=== PATIENT | male | born 1960 | race Caucasian/White ===

== ENCOUNTER 2017-03-02 06:45 | Inpatient (IN) | payer OTHER ==
[2017-03-02] MEDS ORDERED: NITROGLYCERIN SL TABS 0.4 MG TAB SUBLINGUAL STA ×3 (06:52)
[2017-03-02] MEDS: ASPIRIN 81 MG PO STA ×2 (06:56→06:57)
[2017-03-02 07:00] LABS: Glucose,Whole Blood 155 mg/dL (75-99)
--- NOTE | 2017-03-02 07:02 | ED ---
General Adult HPI - General Source: patient, EMS, RN notes reviewed Mode of arrival: EMS Limitations: no limitations <Armaan Davis - Last Filed: 03/02/17 07:08> <Akhil Jamil - Last Filed: 03/02/17 07:54> - General Chief complaint: Chest Pain Stated complaint: Chest Pain Time Seen by Provider: 03/02/17 06:50 - History of Present Illness Initial comments: Patient is a pleasant 56-year-old male presenting to the emergency Department with chest discomfort. Onset of symptoms was yesterday. Patient has discomfort in his chest with radiation to the back. Patient did have a fall yesterday landing on his back. Patient is unclear if the fall could be related. Patient states he fell or on his back. Patient states discomfort is moderate at this time at 5/10. No history of similar symptoms previously. Patient does not regular see her doctor. No associated nausea or dyspnea. Patient has had some sweating. (Armaan Davis) - Related Data Home Medications Medication Instructions Recorded Confirmed No Known Home Medications [No 03/02/17 03/02/17 Known Home Medications] Allergies Allergy/AdvReac Type Severity Reaction Status Date / Time Penicillins Allergy Unknown Verified 03/02/17 07:14 Review of Systems ROS Other: All systems not noted in ROS Statement are negative. Constitutional: Denies: fever Eyes: Denies: eye pain ENT: Denies: ear pain Respiratory: Denies: cough, dyspnea Cardiovascular: Reports: chest pain Endocrine: Denies: fatigue Gastrointestinal: Denies: abdominal pain, nausea Genitourinary: Denies: dysuria Musculoskeletal: Reports: back pain Skin: Denies: rash Neurological: Denies: weakness <Armaan Davis - Last Filed: 03/02/17 07:08> ROS Other: All systems not noted in ROS Statement are negative. <Akhil Jamil - Last Filed: 03/02/17 07:54> ROS Statement: Those systems with pertinent positive or pertinent negative responses have been documented in the HPI. Past Medical History Past Medical History: No Reported History History of Any Multi-Drug Resistant Organisms: MRSA Date of last positivie culture/infection: 12/23/2013 MDRO Source:: Face Past Surgical History: No Surgical Hx Reported Additional Past Surgical History / Comment(s): I&D of abscesses Past Anesthesia/Blood Transfusion Reactions: No Reported Reaction Past Psychological History: No Psychological Hx Reported Smoking Status: Current every day smoker Past Alcohol Use History: Rare Past Drug Use History: Marijuana - Past Family History Mother Family Medical History: COPD, Coronary Artery Disease (CAD) <Armaan Davis Last Filed: 03/02/17 07:08> General Exam Limitations: no limitations General appearance: alert Head exam: Present: atraumatic, normocephalic Eye exam: Present: normal appearance, PERRL ENT exam: Present: normal oropharynx Neck exam: Present: normal inspection Respiratory exam: Present: normal lung sounds bilaterally, chest wall tenderness (Mild tenderness mid upper chest) Cardiovascular Exam: Present: regular rate, normal rhythm Expanded Peripheral pulses: 2+: Radial (R), Radial (L), Posterior Tibialis (R), Posterior Tibialis (L) GI/Abdominal exam: Present: soft. Absent: tenderness Extremities exam: Present: normal inspection. Absent: pedal edema, calf tenderness Back exam: Present: tenderness (Mild tenderness to the mid thoracic region.) Neurological exam: Present: alert Psychiatric exam: Present: normal affect, normal mood Skin exam: Present: normal color <Armaan Davis Last Filed: 03/02/17 07:08> General appearance: alert, in no apparent distress Head exam: Present: atraumatic, normocephalic, normal inspection Eye exam: Present: normal appearance, PERRL, EOMI. Absent: scleral icterus, conjunctival injection, periorbital swelling ENT exam: Present: normal exam, mucous membranes moist Neck exam: Present: normal inspection. Absent: tenderness, meningismus, lymphadenopathy Respiratory exam: Present: normal lung sounds bilaterally. Absent: respiratory distress, wheezes, rales, rhonchi, stridor Cardiovascular Exam: Present: regular rate, normal rhythm, normal heart sounds. Absent: systolic murmur, diastolic murmur, rubs, gallop, clicks GI/Abdominal exam: Present: soft, normal bowel sounds. Absent: distended, tenderness, guarding, rebound, rigid Extremities exam: Present: normal inspection, full ROM, normal capillary refill. Absent: tenderness, pedal edema, joint swelling, calf tenderness Back exam: Present: normal inspection Neurological exam: Present: alert, oriented X3, CN II-XII intact Psychiatric exam: Present: normal affect, normal mood Skin exam: Present: warm, dry, intact, normal color. Absent: rash <Akhil Jamil - Last Filed: 03/02/17 07:54> Course <Armaan Davis - Last Filed: 03/02/17 07:08> <Akhil Jamil - Last Filed: 03/02/17 07:54> Vital Signs 03/02/17 03/02/17 03/02/17 06:47 06:51 06:56 Temperature 98.2 F Pulse Rate 74 76 74 Respiratory 16 18 17 Rate Blood Pressure 136/81 138/81 132/77 O2 Sat by Pulse 96 96 96 Oximetry 03/02/17 03/02/17 03/02/17 07:01 07:07 07:13 Temperature Pulse Rate 78 76 69 Respiratory 17 16 18 Rate Blood Pressure 122/72 99/55 97/56 O2 Sat by Pulse 97 97 97 Oximetry - Reevaluation(s) Reevaluation #1: 03/02/17 06:58 Case was discussed with Dr. Manzano and EKG was forwarded. 03/02/17 06:59 Repeat EKG shows sinus rhythm at 75. AL 150. QRS 80. QT 370. QTc 413. Normal axis. Septal Q waves. Inferior ST depression. Elevation in V2. 03/02/17 07:05 Case again discussed with Dr. Manzano who does not feel patient meets STEMI criteria. He does request Dr. graham come see the patient. Dr. Graham has been paged. 03/02/17 07:08 Case was discussed with Dr. Graham. (Armaan Davis) Reevaluation #2: 03/02/17 07:43 Dr. Graham is in emergency room evaluating patient, obtaining bedside ultrasound echo (Akhil Jamil) EKG Findings - EKG Comments: EKG Findings:: EKG shows sinus rhythm at 80. AL 150. QRS 84. QT 378. QTC 426. Normal axis. Septal Q waves with some borderline inferior ST depression. There is some ST elevation in V2. <Armaan Davis - Last Filed: 03/02/17 07:08> Medical Decision Making <Armaan Davis - Last Filed: 03/02/17 07:08> - Lab Data Result diagrams: 03/02/17 06:53 01/17/18 06:53 - Radiology Data Radiology results: report reviewed (Chest x-ray is negative), image reviewed <Akhil Jamil - Last Filed: 03/02/17 07:54> - Medical Decision Making 56 male the ER with chest pain, chest pain back pain, patient did not fall yesterday although with current chest pain currently. No shortness of breath no diaphoresis. Patient does have mild pain relief here in the emergency room, patient doesn't live troponin, to be taken to the Lead Case Manager for heart catheterization, patient was seen and evaluated emergency department by Dr. Graham (Akhil Jamil) - Lab Data Lab Results 03/02/17 03/02/17 03/02/17 Range/Units 06:52 06:53 06:53 WBC 11.6 H (3.8-10.6) k/uL RBC 5.03 (4.30-5.90) m/uL Hgb 15.0 (13.0-17.5) gm/dL Hct 46.3 (39.0-53.0) % MCV 92.1 (80.0-100.0) fL MCH 29.7 (25.0-35.0) pg MCHC 32.3 (31.0-37.0) g/dL RDW 14.7 (11.5-15.5) % Plt Count 214 (150-450) k/uL Neutrophils % 87 % Lymphocytes % 8 % Monocytes % 4 % Eosinophils % 1 % Basophils % 0 % Neutrophils # 10.2 H (1.3-7.7) k/uL Lymphocytes # 0.9 L (1.0-4.8) k/uL Monocytes # 0.4 (0-1.0) k/uL Eosinophils # 0.1 (0-0.7) k/uL Basophils # 0.0 (0-0.2) k/uL PT (9.0-12.0) sec INR (<1.2) APTT (22.0-30.0) sec Sodium (137-145) mmol/L Potassium (3.5-5.1) mmol/L Chloride (98-107) mmol/L Carbon Dioxide (22-30) mmol/L Anion Gap mmol/L BUN (9-20) mg/dL Creatinine (0.66-1.25) mg/dL Est GFR (MDRD) Af Amer (>60 ml/min/1.73 sqM) Est GFR (MDRD) Non-Af (>60 ml/min/1.73 sqM) Glucose (74-99) mg/dL POC Glucose (mg/dL) 155 H (75-99) mg/dL POC Glu Property Assistant ID Rabia John Calcium (8.4-10.2) mg/dL Magnesium (1.6-2.3) mg/dL Total Bilirubin (0.2-1.3) mg/dL AST (17-59) U/L ALT (21-72) U/L Alkaline Phosphatase (38-126) U/L Total Creatine Kinase 918 H (55-170) U/L CK-MB (CK-2) 67.4 H* (0.0-2.4) ng/mL CK-MB (CK-2) Rel Index 7.3 Troponin I 8.700 H* (0.000-0.034) ng/mL Total Protein (6.3-8.2) g/dL Albumin (3.5-5.0) g/dL 03/02/17 03/02/17 Range/Units 06:53 06:53 WBC (3.8-10.6) k/uL RBC (4.30-5.90) m/uL Hgb (13.0-17.5) gm/dL Hct (39.0-53.0) % MCV (80.0-100.0) fL MCH (25.0-35.0) pg MCHC (31.0-37.0) g/dL RDW (11.5-15.5) % Plt Count (150-450) k/uL Neutrophils % % Lymphocytes % % Monocytes % % Eosinophils % % Basophils % % Neutrophils # (1.3-7.7) k/uL Lymphocytes # (1.0-4.8) k/uL Monocytes # (0-1.0) k/uL Eosinophils # (0-0.7) k/uL Basophils # (0-0.2) k/uL PT 9.8 (9.0-12.0) sec INR 1.0 (<1.2) APTT 23.3 (22.0-30.0) sec Sodium 142 (137-145) mmol/L Potassium 4.6 (3.5-5.1) mmol/L Chloride 103 (98-107) mmol/L Carbon Dioxide 27 (22-30) mmol/L Anion Gap 12 mmol/L BUN 15 (9-20) mg/dL Creatinine 0.77 (0.66-1.25) mg/dL Est GFR (MDRD) Af Amer >60 (>60 ml/min/1.73 sqM) Est GFR (MDRD) Non-Af >60 (>60 ml/min/1.73 sqM) Glucose 151 H (74-99) mg/dL POC Glucose (mg/dL) (75-99) mg/dL POC Glu Property Assistant ID Calcium 9.5 (8.4-10.2) mg/dL Magnesium 2.0 (1.6-2.3) mg/dL Total Bilirubin 0.4 (0.2-1.3) mg/dL AST 93 H (17-59) U/L ALT 38 (21-72) U/L Alkaline Phosphatase 50 (38-126) U/L Total Creatine Kinase (55-170) U/L CK-MB (CK-2) (0.0-2.4) ng/mL CK-MB (CK-2) Rel Index Troponin I (0.000-0.034) ng/mL Total Protein 7.4 (6.3-8.2) g/dL Albumin 4.4 (3.5-5.0) g/dL Critical Care Time Critical Care Time: Yes Total Critical Care Time: 31 <Akhil Jamil - Last Filed: 03/02/17 07:54> Disposition <Armaan Davis - Last Filed: 03/02/17 07:08> <Akhil Jamil - Last Filed: 03/02/17 07:54> Clinical Impression: NSTEMI (non-ST elevated myocardial infarction), Chest pain, Elevated troponin Disposition: ADMITTED IP TO THIS [facility] Condition: Serious Referrals: None,Stated [Primary Care Provider] - 1-2 days
[2017-03-02 07:03] LABS: Basophils % (A) 0 %; Eosinophils # (A) 0.1 k/uL (0-0.7); Eosinophils % (A) 1 %; HCT 46.3 % (39.0-53.0); Lymphocytes # (A) 0.9 k/uL (1.0-4.8); Lymphocytes % (A) 8 %; MCH 29.7 pg (25.0-35.0); MCHC 32.3 g/dL (31.0-37.0); MCV 92.1 fL (80.0-100.0); Mean Platelet Volume 9.7; Monocytes # (A) 0.4 k/uL (0-1.0); Monocytes % (A) 4 %; Neutrophils # (A) 10.2 k/uL (1.3-7.7); Neutrophils % (A) 87 %; Platelet Count 214 k/uL (150-450); RBC 5.03 m/uL (4.30-5.90); RDW 14.7 % (11.5-15.5); WBC 11.6 k/uL (3.8-10.6)
[2017-03-02 07:12] LABS: Partial Thromboplastin Time 23.3 sec (22.0-30.0); Prothrombin Time 9.8 sec (9.0-12.0)
--- NOTE | 2017-03-02 07:26 | XR ---
EXAMINATION TYPE: XR chest 1V portable DATE OF EXAM: 03/02/2017 COMPARISON: 11/19/2011 INDICATION: Chest pain TECHNIQUE: Single frontal view of the chest is obtained. FINDINGS: The heart size is normal. The pulmonary vasculature is normal. The lungs are clear. IMPRESSION: 1. No acute pulmonary process.
[2017-03-02 07:30] LABS: ALT 38 U/L (21-72); AST 93 U/L (17-59); Albumin 4.4 g/dL (3.5-5.0); Alkaline Phosphatase 50 U/L (38-126); Anion Gap 12 mmol/L; Blood Urea Nitrogen 15 mg/dL (9-20); Calcium 9.5 mg/dL (8.4-10.2); Carbon Dioxide 27 mmol/L (22-30); Chloride 103 mmol/L (98-107); Glucose 151 mg/dL (74-99); Potassium 4.6 mmol/L (3.5-5.1); Sodium 142 mmol/L (137-145); Total Bilirubin 0.4 mg/dL (0.2-1.3); Total Protein 7.4 g/dL (6.3-8.2)
[2017-03-02 07:42] LABS: Creatine Kinase MB 67.4 ng/mL (0.0-2.4); Troponin I 8.7 ng/mL (0.000-0.034)
[2017-03-02] MEDS ORDERED: HEPARIN SODIUM,PORCINE 5,000 UNIT/ML 1 ML VIAL IV PRN (07:47)
[2017-03-02] MEDS ORDERED: MORPHINE SULFATE 2 MG/ML SYRINGE IV PRN (07:47)
[2017-03-02] MEDS ORDERED: HEPARIN SODIUM,PORCINE 5,000 UNIT/ML 1 ML VIAL IV ONE (07:47)
[2017-03-02] MEDS ORDERED: NITROGLYCERIN SL TABS 0.4 MG TAB SUBLINGUAL PRN ×3 (07:47→09:43)
[2017-03-02] MEDS ORDERED: ALPRAZolam 0.25 MG TAB PO PRN (07:55)
[2017-03-02] MEDS ORDERED: ATORVASTATIN 80 MG TAB PO STA (07:55)
[2017-03-02] MEDS ORDERED: ASPIRIN 325 MG TAB PO STA (07:55)
[2017-03-02] MEDS ORDERED: ALPRAZolam 0.5 MG TAB PO PRN (07:55)
[2017-03-02] MEDS: HEPARIN SOD,PORK IN 0.45% NACL 25,000 UNIT in 0.45% NACL 1 500ML.BAG IV SCH (07:57)
--- NOTE | 2017-03-02 07:58 | CONS ---
CONSULTATION Mr. Rene is a 56-year-old male who presented to the emergency room with symptoms of chest discomfort. He fell yesterday carrying wood. Then he started to complain of chest discomfort. The discomfort is in the middle of the chest radiating to the back and worse with certain position, worse with deep breathing. He feels the discomfort is worse when he lays on his back. He denies any dizziness or palpitation. He has not been too active physically. Apparently he has been in [facility] until recently. He has no history of PND, orthopnea, or peripheral edema. He has been told in the past that he had arrhythmia, but no recent palpitations, syncope or dizziness. He has no prior history of obstructive coronary artery disease. He takes no medication at home except he took [employer] [place] yesterday. Coronary risk factors are positive for smoking. No documented hypertension or hyperlipidemia. No diabetes. His only medication is the [employer] as noted. REVIEW OF SYSTEMS: RESPIRATORY SYSTEM: He has no recent wheezing. No cough. No documented obstructive lung disease. GI SYSTEM: No recent GI bleed. No peptic ulcer disease. SYSTEM: No dysuria or hematuria. NERVOUS SYSTEM: No stroke or seizure. SOCIAL HISTORY: He denies any history of alcohol abuse or drug abuse. PHYSICAL EXAMINATION: A 56-year-old male, alert, oriented, in mild discomfort in certain position, appears older than his stated age. Blood pressure running in the 120s with the heart rate in the 70s. HEAD: Normocephalic. EYES: Sclerae anicteric. NECK: Good carotid upstroke. No bruit. No jugular venous distention. LUNGS: With mild decrease in breath sounds. No wheezes. HEART: Regular rate and rhythm. S1, S2. No S3. No rub or gallop. No murmur. Chest wall with chest wall tenderness reproducing the pain. ABDOMEN: Soft, nontender. Positive bowel sounds. No organomegaly. EXTREMITIES: No edema. Intact distal pulses. LAB DATA: Lab data revealed hemoglobin of 15, white blood cell 11.6. Chest x-ray shows no acute infiltrate. EKG revealed a sinus mechanism, borderline right axis deviation, small QS in 1 and aVL with nonspecific T wave changes inferiorly. There is no evolution on the subsequent EKG. The EKG from the EMS raised the possibility of ST-segment elevation. IMPRESSION: 1. Chest discomfort, atypical for ischemic heart disease, appears to be noncardiac. The symptoms are highly suggestive of musculoskeletal pain. 2. History of chronic tobacco use. RECOMMENDATION: I have recommended to obtain an echocardiogram with Doppler. We will follow his cardiac enzymes. If there is no evidence of segmental wall motion abnormality and his enzymes are negative then no further cardiac workup will be needed at this point. Thank you for this consult. We will follow with you. MMODL / IJN: [id number] /
[2017-03-02] MEDS ORDERED: LIDOCAINE 2% INJ 20 MG/ML (20 ML MDV) ONE (08:02)
[2017-03-02] MEDS ORDERED: IV FLUID CONTINUATION 1,000 ML IV ONE (08:09)
--- NOTE | 2017-03-02 08:10 | XR ---
EXAMINATION TYPE: XR thoracic spine complete DATE OF EXAM: 03/02/2017 CLINICAL HISTORY: Fall with mid back pain. TECHNIQUE: Frontal, lateral, and swimmer's view of thoracic spine are obtained. COMPARISON: None. FINDINGS: Thoracic spine show satisfactory alignment without evidence of acute fracture or dislocatio n. Vertebral body heights and disc space heights are preserved. Visualized ribs are unremarkable. Multilevel mild degenerative disc disease of the thoracic spine is seen as intervertebral disc space narrowing, endplate sclerosis and small anterior osteophytes. IMPRESSION: No acute fracture or malalignment is seen in the thoracic spine.
[2017-03-02] MEDS ORDERED: VERAPAMIL 2.5 MG/ML 2 ML AMP ONE (08:14)
[2017-03-02] MEDS ORDERED: fentaNYL (PF) 50 MCG/ML 2 ML AMP ONE (08:28)
[2017-03-02] MEDS ORDERED: fentaNYL (PF) 50 MCG/ML 2 ML AMP IV ONE (08:29)
[2017-03-02] MEDS ORDERED: LIDOCAINE 2% INJ 20 MG/ML SQ ONE (08:31)
[2017-03-02] MEDS ORDERED: VERAPAMIL SYRINGE (5 MG/10 ML) INTRAARTER ONE (08:34)
[2017-03-02] MEDS ORDERED: BIVALIRUDIN BOLUS 250 MG/50 ML IV ONE (08:45)
[2017-03-02] MEDS ORDERED: BIVALIRUDIN 250 MG in SODIUM CHLORIDE 0.9% 50 ML IV ONE (08:46)
[2017-03-02] MEDS ORDERED: PRASUGREL 10 MG TAB ONE (08:46)
[2017-03-02] MEDS ORDERED: PRASUGREL 10 MG TAB PO ONE (08:48)
[2017-03-02] MEDS ORDERED: NITROGLYCERIN 1000MCG/10ML SYRINGE INTRACORON ONE (08:59)
[2017-03-02] MEDS ORDERED: IOHEXOL 350 MG/ML 125ML BOTTLE INJ ONE (09:19)
[2017-03-02] MEDS ORDERED: RX INFO: IV CONTRAST WAS GIVEN 1 EACH MISC MISCELLANE PRN (09:43)
[2017-03-02] MEDS ORDERED: MAG HYDROX/AL HYDROX/SIMETH 30 ML CUP PO PRN (09:43)
[2017-03-02] MEDS ORDERED: ATROPINE SULFATE 0.1 MG/ML 10ML SYRINGE IV PRN (09:43)
[2017-03-02] MEDS ORDERED: ZOLPIDEM 5 MG TAB PO PRN (09:43)
[2017-03-02] MEDS ORDERED: SODIUM CHLORIDE 0.9% 1,000 ML IV SCH (09:45)
--- NOTE | 2017-03-02 09:58 | ECHOF ---
Referral Reason:cp MEASUREMENTS -------- HEIGHT: 188.0 cm WEIGHT: 93.0 kg BP: IVSd: 1.0 cm (0.6 - 1.1) LVIDd: 4.8 cm (3.9 - 5.3) LVPWd: 0.8 cm (0.6 - 1.1) IVSs: 1.3 cm LVIDs: 3.1 cm LVPWs: 1.2 cm Ao Diam: 3.3 cm (2.0 - 3.7) AV Cusp: 1.7 cm (1.5 - 2.6) LA Diam: 3.1 cm (2.7 - 3.8) MV EXCURSION: 15.271 mm (> 18.000) MV EF SLOPE: 89 mm/s (70 - 150) EPSS: 0.8 cm MV E Blue: 0.78 m/s MV DecT: 168 ms MV A Blue: 0.61 m/s MV E/A Ratio: 1.27 FINDINGS -------- Sinus rhythm. This was a technically adequate study. The left ventricular size is normal. Left ventricular wall thickness is normal. Overall left vent ricular systolic function is mild-moderately impaired with, an EF between 40 - 45 %. Lateral hypoki nesis [place] Hypokinesis. The right ventricle is normal in size. The right atrial size is normal. The aortic valve is trileaflet, and appears structurally normal. No aortic stenosis or regurgitation. Mild mitral regurgitation is present. Mild tricuspid regurgitation present. There is no evidence of pulmonary hypertension. The right v entricular systolic pressure, as measured by Doppler, is {RVSP}. There is no pulmonic regurgitation present. The aortic root size is normal. There is no pericardial effusion. CONCLUSIONS -------- 1. The left ventricular size is normal. 2. Left ventricular wall thickness is normal. 3. Lateral hypokinesis 4. [place] Hypokinesis. 5. The aortic valve is trileaflet, and appears structurally normal. No aortic stenosis or regurgitati on. 6. Mild mitral regurgitation is present. 7. Mild tricuspid regurgitation present. 8. There is no evidence of pulmonary hypertension. 9. The right ventricular systolic pressure, as measured by Doppler, is {RVSP}. 10. There is no pulmonic regurgitation present. 11. The aortic root size is normal. 12. There is no pericardial effusion. CONSULTING SOLUTION DIRECTOR: Radha Sigala RDCS
[2017-03-02] MEDS: METOPROLOL TARTRATE 25 MG TAB PO SCH ×2 (10:20→20:25)
--- NOTE | 2017-03-02 10:48 | AS ---
ARTERIAL STUDY Mr. Rene is a 56-year-old male with no prior documented coronary artery disease who presented to the emergency room with symptoms of chest discomfort, had a troponin elevation and underwent cardiac catheterization that revealed a critical stenosis in the obtuse marginal branch and the right coronary artery. In view of that, recommendation made regarding angioplasty and stenting, the procedures,. risks and complication were discussed with the patient who is in full understanding and agreement. PROCEDURE: Using the 6-Anguillan FL 3-/2 guiding catheter and after obtaining images of the obtuse marginal branch, a 0.014 balanced medium weight J-wire was advanced across the lesion and positioned distally. Then a 2.5 x 12 mm Xience Alpine stent was advanced, deployed and post-dilated at 14 atmospheres. After the last inflation, after appropriate wait, the balloon and the guidewire were withdrawn back in the guiding catheter. Images were obtained repeated those images reveal stable successful stenting. At that point, the guiding catheter, the balloon and the guidewire were removed and a 6-Anguillan FR4 guiding catheter introduced into the system and after cannulating the right coronary ostium, 0.14 Advanced medium J-wire was advanced across the lesion and positioned distally, attempt to advance a 2.75 x 15 mm Xience Alpine stent were unsuccessful. That stent was removed and another 0.14 balanced medium weight J-wire was advanced next to first one in a jamison fashion. Subsequently, the stent was advanced to the distal lesion, deployed and post-dilated at 14 atmospheres. Following that, the balloon was removed and another 2.75 x 50 mm Xience Alpine stent was deployed in the proximal lesion and post dilated at 16 atmospheres. After the last inflation, after appropriate wait, the balloon and the guidewire were withdrawn back in the guiding catheter. Images were obtained and repeated. Those images reveal stable successful stenting. At that point, the guiding catheter, the balloon and the guidewire removed and a left ventriculogram was performed. Following that, catheter and sheath were removed. Hemostasis was obtained with deployment of a TR band. There was immediate complication. Patient is returned to his room in stable condition. Of note, that he had mild chest discomfort with the inflation that resulted in the procedure. He received Angiomax per protocol as well as oral loading dose of Effient. RESULTS: 1. Successful stenting of the first obtuse marginal branch with reduction of stenosis from 80% to 0%. 2. Successful stenting of the proximal right coronary artery with reduction of stenosis from 80% to 0%. 3. Successful stenting of the distal right coronary artery with reduction of stenosis from 80% to 0%. RECOMMENDATION: Patient will be continued on aspirin, Effient, beta blockers and statin. The importance of dual antiplatelet treatment were discussed with the patient and his family who are in full understanding and agreement. Duration of procedure is 57 minutes. MMODL / IJN: [id number] /
--- NOTE | 2017-03-02 10:58 | CC ---
CARDIAC CATHETERIZATION REPORT Mr. Rene is a 56-year-old male with history of chronic tobacco use, who does not follow with a physician, who had a fall yesterday, subsequently presented to the emergency room with chest and back discomfort that had respirophasic pattern to it. His EKG showed ST-segment changes in the inferior leads as well as QS in 1 in aVL and his initial troponin was 8 and in view of that, recommendation was made regarding cardiac catheterization. The procedure as well as the risks and complication were discussed with the patient who is in full understanding and agreement. PROCEDURE: Patient was brought to the yard labor supervisor in a fasting semi-sedated state after receiving fentanyl and Benadryl and achieving moderate conscious sedated state. Using Xylocaine anesthesia in the Seldinger technique, a 6-Tristanian sheath was introduced in the right radial artery. Selective right and left coronary angiography performed using 5-Tristanian, 3.5 bend right Vern and a 6-Tristanian 3.5 bend FL3.5 guiding catheter. Images of the coronary arteries were obtained. Following that, angioplasty and stenting of the left circumflex and subsequently angioplasty and stenting of the right coronary artery was performed. Following that, a 5-Tristanian tight pigtail catheter was introduced in the left ventricle and a 30-degree BAINS view of the left ventricle was obtained. Following that, the catheter and sheaths were removed. Hemostasis was obtained with deployment of a TR band. There was no immediate complication. Patient was returned to his room in stable condition. Of note, the patient received intra-arterial verapamil. FINDINGS: FLUOROSCOPY: There was calcification involving the left anterior descending artery as well as the right coronary artery. LEFT MAIN: This is a large-sized vessel bifurcating left circumflex and left anterior descending artery. Left main coronary artery has no evidence of high-grade stenosis. LEFT ANTERIOR DESCENDING ARTERY: This is a large-sized vessel reaching towards the apex with a wraparound apex segment. The proximal LAD has 10% to 20% plaque. After the takeoff of the first septal birthing nurse, there is a another 20% plaque. There is a question of a stump of a small of second diagonal branch although no late flow into the vessel and no retrograde flow is noted. LEFT CIRCUMFLEX: This is a nondominant vessel giving rise to a large obtuse marginal branch. The obtuse marginal branch has an 80% stenosis in the proximal segment. RIGHT CORONARY ARTERY: This is a large dominant vessel bifurcating distally PDA posterolateral segment and branches. The right coronary artery is heavily calcified, proximally has a tubular lesion of 80% in the mid segment. There is a 50% plaque and there is another 80% plaque distally prior to the bifurcation. The rest of the vessel has no high-grade stenosis. LEFT VENTRICULOGRAM: Left ventriculogram is performed 30-degree BAINS view and revealed mid lateral apical wall hypokinesis to akinesis. Ejection fraction is 40% to 45%. HEMODYNAMICS: There was no gradient across the aortic valve. The left ventricular end- diastolic pressure was 20 to 24 mmHg. CONCLUSION: 1. Calcified coronary arteries. 2. Critical stenosis involving the first obtuse marginal branch. 3. Critical stenosis involving a calcified proximal right coronary artery and distal right coronary artery. 4. Questionable occluded second diagonal branch. 5. Moderately impaired left ventricular systolic function. 6. RECOMMENDATION: In view of finding anatomy, I have recommended proceeding with angioplasty and stenting of the left circumflex and the right coronary artery. The procedure as well as the risks and complications were discussed with the patient who is in full understanding and agreement. MMODL / IJN: [id number] /
[2017-03-02] MEDS: LISINOPRIL 5 MG TAB PO SCH (12:08)
[2017-03-02] MEDS: SPIRONOLACTONE 25 MG TAB PO SCH (12:44)
[2017-03-02 14:06] LABS: Troponin I 26.9 ng/mL (0.000-0.034)
[2017-03-02 19:42] LABS: Troponin I 51.7 ng/mL (0.000-0.034)
--- NOTE | 2017-03-02 21:42 | P.HPIM ---
History of Present Illness H&P Date: 03/02/17 Chief Complaint: Chest pain Patient is a 56-year-old male with a known history of questionable SVT and currently not taking any medications and no recent PCP follow-up came to ER with complaints of chest discomfort. Patient initially had chest pain last night and patient took [place] at home without any relief of symptoms and patient presented to ER today morning. Chest pain is mainly left retrosternal associated with diaphoresis and dizziness. Chest pain with radiation to the back. 5/10 in severity. Patient denied any similar symptoms in the past. Otherwise patient continues to smoke 1 pack per day. No history of coronary disease. No history of hypertension, hyperlipidemia and diabetes mellitus. No associated nausea or dyspnea. Patient was found to have elevated troponin in the ER and was immediately taken to cardiac catheterization. Status post stent placement 2 Currently patient denied any chest pain. Review of Systems Constitutional: Patient denies any fever or chills . No generalized weakness or weight loss. Abdomen: Patient denied nausea vomiting and diarrhea and abdominal pain. Cardiovascular: He does have chest pain associated with diaphoresis. No palpitations. No shortness of breath. No leg swelling Respiratory: patient denied any cough is from production. No shortness of breath Neurologic: Patient denied any numbness or tingling headache. Musculoskeletal: Patient denies any complaints of joint swelling or deformity. Skin: Negative Psychiatric: Negative Endocrine: No heat or cold intolerance. No recent weight gain. Genitourinary: No dysuria or hematuria. All other 14 point ROS negative except the above Past Medical History Past Medical History: Chest Pain / Angina Additional Past Medical History / Comment(s): SVT with chest pain/palpitations- chemically converted. History of Any Multi-Drug Resistant Organisms: MRSA Date of last positivie culture/infection: 12/23/2013 MDRO Source:: Face Past Surgical History: No Surgical Hx Reported Additional Past Surgical History / Comment(s): I&D of R inframandibular abscess. Past Anesthesia/Blood Transfusion Reactions: No Reported Reaction Smoking Status: Current every day smoker - Past Family History Father Family Medical History: No Reported History Additional Family Medical History / Comment(s): Father of "natural causes" at the age of 79yrs. Mother Family Medical History: COPD, Coronary Artery Disease (CAD) Additional Family Medical History / Comment(s): Mother is 76yrs old. She has had several MIs, 6 cardiac stents and a 4 vessel CABG. Medications and Allergies Home Medications Medication Instructions Recorded Confirmed Type No Known Home Medications [No 03/02/17 03/02/17 History Known Home Medications] Allergies Allergy/AdvReac Type Severity Reaction Status Date / Time Penicillins Allergy Unknown Verified 03/02/17 07:14 Physical Exam Vitals: Vital Signs Temp Pulse Pulse Resp BP BP Pulse Ox 03/02/17 14:01 98.0 F 73 16 133/74 98 03/02/17 13:28 98.0 F 73 16 133/74 98 03/02/17 12:10 70 16 123/76 98 03/02/17 11:35 70 16 147/65 99 03/02/17 11:09 70 16 117/67 99 03/02/17 10:30 78 16 114/74 98 03/02/17 10:15 74 16 111/66 97 03/02/17 10:00 70 16 117/65 98 03/02/17 09:45 66 16 118/72 99 03/02/17 08:00 64 16 115/58 99 03/02/17 07:21 80 16 100/55 98 03/02/17 07:16 74 16 106/55 97 03/02/17 07:13 69 18 97/56 97 03/02/17 07:07 76 16 99/55 97 03/02/17 07:01 78 17 122/72 97 03/02/17 06:56 74 17 132/77 96 03/02/17 06:51 76 18 138/81 96 03/02/17 06:47 98.2 F 74 16 136/81 96 Intake and Output 03/02/17 03/02/17 03/02/17 06:59 14:59 22:59 Intake Total 134.93 Balance 134.93 Intake: IV 134.93 Sodium Chloride 0.9% 1, 0 000 ml @ 100 mls/hr IV . [facility] Rx#:[id number] Other: Weight 92.986 kg PHYSICAL EXAMINATION: Patient is lying in the bed comfortably, no acute distress, awake alert and oriented.. HEENT: Normocephalic. Neck is supple. Pupils reactive. Nostrils clear. Oral cavity is moist. Ears reveal no drainage. Neck reveals no JVD, carotid bruits, or thyromegaly. CHEST EXAMINATION: Trachea is central. Symmetrical expansion. Lung viera clear to auscultation and percussion. CARDIAC: Normal S1, S2 with no gallops. No murmurs ABDOMEN: Soft. Bowel sounds normal. No organomegaly. No abdominal bruits. Extremities: reveal no edema. No clubbing or cyanosis Neurologically awake, alert, oriented x3 with well-coordinated movements. No focal deficits noted Skin: No rash or skin lesions. Psychiatric: Cooperative. Nonsuicidal Musculoskeletal: No joint swelling or deformity. Normal range of motion. Results CBC & Chem 7: 03/02/17 06:53 03/02/17 06:53 Labs: Abnormal Lab Results - Last 24 Hours (Table) 03/02/17 03/02/17 03/02/17 Range/Units 06:52 06:53 06:53 WBC 11.6 H (3.8-10.6) k/uL Neutrophils # 10.2 H (1.3-7.7) k/uL Lymphocytes # 0.9 L (1.0-4.8) k/uL Glucose (74-99) mg/dL POC Glucose (mg/dL) 155 H (75-99) mg/dL AST (17-59) U/L Total Creatine Kinase 918 H (55-170) U/L CK-MB (CK-2) 67.4 H* (0.0-2.4) ng/mL Troponin I 8.700 H* (0.000-0.034) ng/mL 03/02/17 03/02/17 Range/Units 06:53 12:58 WBC (3.8-10.6) k/uL Neutrophils # (1.3-7.7) k/uL Lymphocytes # (1.0-4.8) k/uL Glucose 151 H (74-99) mg/dL POC Glucose (mg/dL) (75-99) mg/dL AST 93 H (17-59) U/L Total Creatine Kinase 2353 H (55-170) U/L CK-MB (CK-2) 146.0 H* (0.0-2.4) ng/mL Troponin I 26.900 H* (0.000-0.034) ng/mL Thrombosis Risk Factor Assmnt - DVT/VTE Prophylaxis DVT/VTE Prophylaxis: Pharmacologic Prophylaxis ordered - Choose All That Apply Any of the Below Risk Factors Present?: Yes Each Factor Represents 1 point: Acute MO, Age 41-60 years, Obesity (BMI >25) Other Risk Factors: Yes Other congenital or acquired thrombophilia - If yes, enter type in comment: No Thrombosis Risk Factor Assessment Total Risk Factor Score: 3 Thrombosis Risk Factor Assessment Level: Moderate Risk Assessment and Plan Assessment: Acute non-ST elevated [place] status post cardiac catheterization and stent placement to left circumflex and right coronary artery Nicotine addiction History of SVT. As per patient. Not on any medications Plan: Patient will be continued on telemetry monitoring. Continue with aspirin, statins, metoprolol lisinopril and Effient. Cardiology is following. Further recommendations based on the clinical course. Currently patient denied any chest pain. Smoking cessation has been counseled extensively with the patient Time with Patient: Greater than 30
[2017-03-03 02:36] LABS: Basophils % (A) 0 %; Eosinophils # (A) 0.1 k/uL (0-0.7); Eosinophils % (A) 1 %; HCT 47.1 % (39.0-53.0); HGB 15.1 gm/dL (13.0-17.5); Lymphocytes # (A) 1.3 k/uL (1.0-4.8); Lymphocytes % (A) 10 %; MCH 29.7 pg (25.0-35.0); MCHC 31.9 g/dL (31.0-37.0); MCV 92.9 fL (80.0-100.0); Mean Platelet Volume 9.5; Monocytes # (A) 0.9 k/uL (0-1.0); Monocytes % (A) 7 %; Neutrophils # (A) 11.4 k/uL (1.3-7.7); Neutrophils % (A) 82 %; Platelet Count 189 k/uL (150-450); RBC 5.07 m/uL (4.30-5.90); RDW 14.5 % (11.5-15.5)
[2017-03-03 02:54] LABS: Anion Gap 7 mmol/L; Blood Urea Nitrogen 10 mg/dL (9-20); Calcium 9.4 mg/dL (8.4-10.2); Carbon Dioxide 25 mmol/L (22-30); Chloride 104 mmol/L (98-107); Cholesterol 163 mg/dL (<200); Glucose 127 mg/dL (74-99); HDL Cholesterol 54 mg/dL (40-60); LDL Cholesterol,Calculated 90 mg/dL (0-99); Sodium 136 mmol/L (137-145); Triglycerides 95 mg/dL (<150)
--- NOTE | 2017-03-03 07:59 | PN ---
PROGRESS NOTE Mr. Rene is a 56-year-old male who presented yesterday with symptoms of chest discomfort as well as elevation of his troponin. He underwent cardiac catheterization, was found to have a critical stenosis involving the left circumflex, the right coronary artery with a questionable occlusion of a second diagonal branch. He underwent stenting of the right coronary artery and the obtuse marginal branch. He is feeling well this morning. He has some chest discomfort that appears to be respirophasic, but better than yesterday. He denies any dizziness or palpitation. He continued to be in sinus mechanism. His echocardiogram showed an ejection fraction of 40% to 45% with apical lateral wall hypokinesis. He continues to be at this time on aspirin once a day, Lipitor 80 mg daily, Zestril 5 mg daily, metoprolol tartrate 25 mg twice a day, and spironolactone 25 mg daily and Effient 10 mg a day. PHYSICAL EXAMINATION: Blood pressure 140/72 with the heart rate in the 60s. LUNGS: Clear. HEART: Regular rate and rhythm, S1, S2. No S3. No rub. ABDOMEN: Soft, nontender. EXTREMITIES: No edema. Right radial pulse intact. EKG consistent with anterolateral myocardial infarction. LAB DATA: Lab data revealed BUN and creatinine 10 and 0.7. Potassium 4.0. His troponin peak is 51. Cholesterol 163, LDL of 90, hemoglobin 15.1. IMPRESSION: 1. Status post myocardial infarction and status post stenting of the left circumflex and the right coronary artery. 2. Ischemic cardiomyopathy. 3. Hyperlipidemia. 4. History of chronic tobacco use. RECOMMENDATION: We will continue present therapy. Increase his level activity and depending on the trend of his blood pressure, further recommendation will be made. MMODL / IJN: [id number] /
[2017-03-03] MEDS ORDERED: ASPIRIN 325 MG TAB PO SCH (09:00)
[2017-03-03] MEDS: LISINOPRIL 5 MG TAB PO SCH (09:05)
[2017-03-03] MEDS: SPIRONOLACTONE 25 MG TAB PO SCH (09:05)
[2017-03-03] MEDS: METOPROLOL TARTRATE 25 MG TAB PO SCH ×2 (09:05→21:08)
[2017-03-03] MEDS: ASPIRIN 81 MG PO SCH (09:05)
[2017-03-03] MEDS: PRASUGREL 10 MG TAB PO SCH (09:05)
[2017-03-03] MEDS: ATORVASTATIN 80 MG TAB PO SCH (09:07)
[2017-03-03] MEDS: HEPARIN SOD,PORK IN 0.45% NACL 25,000 UNIT in 0.45% NACL 1 500ML.BAG IV SCH (09:08)
[2017-03-03 10:42] VITALS: BMI 24.2
[2017-03-03] MEDS: HYDROcodone/APAP 5-325MG 1 EACH TAB PO PRN (12:35)
[2017-03-04] MEDS: HYDROcodone/APAP 5-325MG 1 EACH TAB PO PRN (00:56)
[2017-03-04 06:28] LABS: Mean Platelet Volume 9.8; Platelet Count 187 k/uL (150-450)
[2017-03-04 06:40] LABS: Anion Gap 7 mmol/L; Blood Urea Nitrogen 12 mg/dL (9-20); Calcium 9.5 mg/dL (8.4-10.2); Carbon Dioxide 31 mmol/L (22-30); Chloride 100 mmol/L (98-107); Glucose 111 mg/dL (74-99); Potassium 4.6 mmol/L (3.5-5.1); Sodium 138 mmol/L (137-145)
[2017-03-04] MEDS: ASPIRIN 81 MG PO SCH (07:54)
[2017-03-04] MEDS: PRASUGREL 10 MG TAB PO SCH (07:55)
[2017-03-04] MEDS: METOPROLOL TARTRATE 25 MG TAB PO SCH (07:55)
[2017-03-04] MEDS: ATORVASTATIN 80 MG TAB PO SCH (07:55)
[2017-03-04] MEDS: LISINOPRIL 5 MG TAB PO SCH (07:55)
[2017-03-04] MEDS: SPIRONOLACTONE 25 MG TAB PO SCH (07:55)
[2017-03-04] MEDS: HEPARIN SOD,PORK IN 0.45% NACL 25,000 UNIT in 0.45% NACL 1 500ML.BAG IV SCH (07:59)
--- NOTE | 2017-03-04 09:41 | PN ---
PROGRESS NOTE Mr. Rene is a 56-year-old male who presented with evidence of myocardial infarction, underwent cardiac catheterization and coronary angioplasty and stenting of his right coronary artery and left circumflex. He had some pain during the night. The pain was respiratory phasic, worse with certain position. He is feeling well today. He is ambulating. He denies any dizziness, palpitation. He denies any nausea. He continues to be on aspirin once a day, Lipitor 80 mg daily, lisinopril 5 mg daily, metoprolol tartrate 25 mg twice a day, spironolactone 25 mg daily, and Effient 10 mg daily. PHYSICAL EXAMINATION: Blood pressure 118/60 with a heart rate in the 80s. LUNGS: Clear. HEART: Regular rate and rhythm, S1, S2. No S3 with a systolic murmur. No diastolic murmur. No rub. ABDOMEN: Soft, nontender. EXTREMITIES: No edema. LAB DATA: Revealed BUN and creatinine of 12 and 0.94, and potassium 4.6. IMPRESSION: 1. Status post myocardial infarction with stenting of the right coronary artery and the left circumflex with possible occlusion of the diagonal branch. 2. Ischemic cardiomyopathy. 3. History of smoking. 4. Hyperlipidemia. RECOMMENDATION: From the cardiac standpoint, will increase his activity and if remains stable, I would expect he should be able to be discharged home tomorrow. DEVYN / CHRISTOPHERN: [id number] /
--- NOTE | 2017-03-04 18:04 | ECHOF ---
Referral Reason:assess lvf MEASUREMENTS -------- HEIGHT: 188.0 cm WEIGHT: 89.8 kg BP: FINDINGS -------- Sinus rhythm. Limited Study for LV function The left ventricular size is normal. Overall left ventricular systolic function is mild-moderately impaired with, an EF between 40 - 45 %. Mid anterior LV wall motion is hypokinetic. Mid lateral LV wall motion is hypokinetic. Apical anterior LV wall motion is hypokinetic. Apical lateral LV wall motion is hypokinetic. CONCLUSIONS -------- 1. Sinus rhythm. 2. Limited Study for LV function. 3. The left ventricular size is normal. 4. Overall left ventricular systolic function is mild-moderately impaired with, an EF between 40 - 45 %. 5. Mid anterior LV wall motion is hypokinetic. 6. Mid lateral LV wall motion is hypokinetic. 7. Apical anterior LV wall motion is hypokinetic. 8. Apical lateral LV wall motion is hypokinetic. TALENT MANAGEMENT SPECIALIST: Carolina Rivera RDCS
--- NOTE | 2017-03-04 21:39 | P.PN ---
Subjective Progress Note Date: 03/03/17 Principal diagnosis: Non-ST elevated SC Patient is a 56-year-old male with a known history of questionable SVT and currently not taking any medications and no recent PCP follow-up came to ER with complaints of chest discomfort. Patient initially had chest pain last night and patient took [place] at home without any relief of symptoms and patient presented to ER today morning. Chest pain is mainly left retrosternal associated with diaphoresis and dizziness. Chest pain with radiation to the back. 5/10 in severity. Patient denied any similar symptoms in the past. Otherwise patient continues to smoke 1 pack per day. No history of coronary disease. No history of hypertension, hyperlipidemia and diabetes mellitus. No associated nausea or dyspnea. Patient was found to have elevated troponin in the ER and was immediately taken to cardiac catheterization. Status post stent placement 2 Currently patient denied any chest pain. 03/03/2017 Patient is complaining of chest pain with deep breathing which is most likely musculoskeletal from recent fall. Otherwise no complaints of nausea vomiting or abdominal pain. No shortness of breath. Blood pressure is stable. No other acute overnight issues. All other review of systems negative except above. current medications reviewed Objective - Vital Signs Vital signs: Vital Signs Temp 97.7 F 03/03/17 16:00 Pulse 80 03/03/17 16:00 Resp 16 03/03/17 16:00 BP 117/66 03/03/17 16:00 Pulse Ox 97 03/03/17 16:00 Intake & Output 03/03/17 03/03/17 03/04/17 06:59 18:59 06:59 Intake Total 100 360 Balance 100 360 Weight 90.3 kg 90.3 kg Intake: Oral 100 360 Other: Voiding Method Toilet Toilet # Voids 1 3 - Exam PHYSICAL EXAMINATION: Patient is lying in the bed comfortably, no acute distress, awake alert and oriented.. HEENT: Normocephalic. Neck is supple. Pupils reactive. Nostrils clear. Oral cavity is moist. Ears reveal no drainage. Neck reveals no JVD, carotid bruits, or thyromegaly. CHEST EXAMINATION: Trachea is central. Symmetrical expansion. Lung viera clear to auscultation and percussion. Diminished basally. CARDIAC: Normal S1, S2 with no gallops. No murmurs ABDOMEN: Soft. Bowel sounds normal. No organomegaly. No abdominal bruits. Extremities: reveal no edema. No clubbing or cyanosis Neurologically awake, alert, oriented x3 with well-coordinated movements. No focal deficits noted Skin: No rash or skin lesions. Psychiatric: Coperative. Nonsuicidal Musculoskeletal: No joint swelling or deformity. Normal range of motion. - Labs CBC & Chem 7: 03/04/17 05:59 03/04/17 05:59 Labs: Abnormal Lab Results - Last 24 Hours (Table) 03/03/17 03/03/17 Range/Units 02:23 02:23 WBC 14.0 H (3.8-10.6) k/uL Neutrophils # 11.4 H (1.3-7.7) k/uL Sodium 136 L (137-145) mmol/L Glucose 127 H (74-99) mg/dL Assessment and Plan Assessment: Acute non-ST elevated SC status post cardiac catheterization and stent placement to left circumflex and right coronary artery Ischemic Cardiomyopathy ejection fraction 40-45% Nicotine addiction History of SVT. As per patient. Not on any medications Chest wall tenderness. Likely from recent fall. Plan: Patient will be continued on telemetry monitoring. Continue with aspirin, statins, metoprolol lisinopril and Effient. Cardiology is following. Further recommendations based on the clinical course. Smoking cessation has been counseled extensively with the patient
--- NOTE | 2017-03-04 21:40 | P.PN ---
Subjective Progress Note Date: 03/04/17 Principal diagnosis: Non-ST elevated [place] Patient is a 56-year-old male with a known history of questionable SVT and currently not taking any medications and no recent PCP follow-up came to ER with complaints of chest discomfort. Patient initially had chest pain last night and patient took [place] at home without any relief of symptoms and patient presented to ER today morning. Chest pain is mainly left retrosternal associated with diaphoresis and dizziness. Chest pain with radiation to the back. 5/10 in severity. Patient denied any similar symptoms in the past. Otherwise patient continues to smoke 1 pack per day. No history of coronary disease. No history of hypertension, hyperlipidemia and diabetes mellitus. No associated nausea or dyspnea. Patient was found to have elevated troponin in the ER and was immediately taken to cardiac catheterization. Status post stent placement 2 Currently patient denied any chest pain. 03/03/2017 Patient is complaining of chest pain with deep breathing which is most likely musculoskeletal from recent fall. Otherwise no complaints of nausea vomiting or abdominal pain. No shortness of breath. Blood pressure is stable. No other acute overnight issues. 03/04/2017 Chest pain much improved now. No complaints of shortness of breath. Patient is able to ambulate. No nausea vomiting or abdominal pain. 2-D echo cardiac exam showed his ejection fraction 40-45%. All other review of systems negative except above. current medications reviewed Objective - Vital Signs Vital signs: Vital Signs Temp 98.2 F 03/04/17 13:00 Pulse 76 03/04/17 13:00 Resp 16 03/04/17 13:00 BP 108/54 03/04/17 13:00 Pulse Ox 94 L 03/04/17 13:00 Intake & Output 03/03/17 03/04/17 03/04/17 18:59 06:59 18:59 Intake Total 360 150 240 Balance 360 150 240 Weight 90.3 kg 90.2 kg Intake: Intake, IV Titration 100 Amount Heparin Sod,Pork in 0.45% 100 NaCl 25,000 unit In 0.45 % NaCl 1 500ml.bag @ 10. 75 UNITS/KG/HR 19.99 mls/ hr IV .Q24H [facility] Rx#: [id number] Oral 360 50 240 Other: Voiding Method Toilet Toilet Toilet # Voids 3 0 - Exam PHYSICAL EXAMINATION: Patient is lying in the bed comfortably, no acute distress, awake alert and oriented.. HEENT: Normocephalic. Neck is supple. Pupils reactive. Nostrils clear. Oral cavity is moist. Ears reveal no drainage. Neck reveals no JVD, carotid bruits, or thyromegaly. CHEST EXAMINATION: Trachea is central. Symmetrical expansion. Lung viera clear to auscultation and percussion. Diminished basally. CARDIAC: Normal S1, S2 with no gallops. No murmurs ABDOMEN: Soft. Bowel sounds normal. No organomegaly. No abdominal bruits. Extremities: reveal no edema. No clubbing or cyanosis Neurologically awake, alert, oriented x3 with well-coordinated movements. No focal deficits noted Skin: No rash or skin lesions. Psychiatric: Coperative. Nonsuicidal Musculoskeletal: No joint swelling or deformity. Normal range of motion. - Labs CBC & Chem 7: 03/04/17 05:59 03/04/17 05:59 Labs: Abnormal Lab Results - Last 24 Hours (Table) 03/04/17 Range/Units 05:59 Carbon Dioxide 31 H (22-30) mmol/L Glucose 111 H (74-99) mg/dL Assessment and Plan Assessment: Acute non-ST elevated [place] status post cardiac catheterization and stent placement to left circumflex and right coronary artery Ischemic Cardiomyopathy ejection fraction 40-45% Nicotine addiction History of SVT. As per patient. Not on any medications Chest wall tenderness. Likely from recent fall. Plan: Patient will be continued on telemetry monitoring. Continue with aspirin, statins, metoprolol lisinopril and Effient. Cardiology is following. Further recommendations based on the clinical course. Smoking cessation has been counseled extensively with the patient
[2017-03-04] MEDS: METOPROLOL TARTRATE 50 MG TAB PO SCH (23:13)
[2017-03-05 06:49] LABS: Basophils # (A) 0.1 k/uL (0-0.2); Basophils % (A) 1 %; Eosinophils % (A) 0 %; HCT 44.8 % (39.0-53.0); HGB 14.4 gm/dL (13.0-17.5); Lymphocytes # (A) 1.9 k/uL (1.0-4.8); Lymphocytes % (A) 14 %; MCH 29.4 pg (25.0-35.0); MCHC 32.2 g/dL (31.0-37.0); MCV 91.3 fL (80.0-100.0); Mean Platelet Volume 8.9; Monocytes # (A) 0.9 k/uL (0-1.0); Monocytes % (A) 7 %; Neutrophils # (A) 10.1 k/uL (1.3-7.7); Neutrophils % (A) 76 %; Platelet Count 193 k/uL (150-450); RBC 4.91 m/uL (4.30-5.90); RDW 12.9 % (11.5-15.5); WBC 13.3 k/uL (3.8-10.6)
[2017-03-05 06:57] LABS: Anion Gap 8 mmol/L; Blood Urea Nitrogen 18 mg/dL (9-20); Calcium 9.1 mg/dL (8.4-10.2); Carbon Dioxide 27 mmol/L (22-30); Chloride 102 mmol/L (98-107); Glucose 101 mg/dL (74-99); Potassium 4.6 mmol/L (3.5-5.1); Sodium 137 mmol/L (137-145)
[2017-03-05 09:23] VITALS: RESP 16; TEMP 97.8
[2017-03-05] MEDS: ATORVASTATIN 80 MG TAB PO SCH (09:26)
[2017-03-05] MEDS: METOPROLOL TARTRATE 50 MG TAB PO SCH (09:26)
[2017-03-05] MEDS: LISINOPRIL 5 MG TAB PO SCH (09:27)
[2017-03-05] MEDS: SPIRONOLACTONE 25 MG TAB PO SCH (09:27)
[2017-03-05] MEDS: PRASUGREL 10 MG TAB PO SCH (09:27)
[2017-03-05] MEDS: ASPIRIN 81 MG PO SCH (09:28)
--- NOTE | 2017-03-05 09:40 | P.PN ---
Subjective Progress Note Date: 03/05/17 Principal diagnosis: NOn STEMI This 56-year-old gentleman who was admitted to the hospital with a non -ST elevation myocardial infarction. He underwent angioplasty and stenting of the LCX and RCA. Patient denies any chest pain through the night last night, breathing overall has been stable. Objective - Vital Signs Vital signs: Vital Signs Temp 97.8 F 03/05/17 08:00 Pulse 84 03/05/17 08:00 Resp 16 03/05/17 08:00 BP 114/66 03/05/17 08:00 Pulse Ox 97 03/05/17 08:00 Intake & Output 03/04/17 03/05/17 03/05/17 18:59 06:59 18:59 Intake Total 600 230 Output Total 300 Balance 600 -300 230 Weight 89.9 kg Intake: Oral 600 230 Output: Urine 300 Other: Voiding Method Toilet Toilet # Voids 2 1 - Exam PHYSICAL EXAMINATION: HEENT: Head is atraumatic, normocephalic. Pupils equal, round. Neck is supple. There is no elevated jugular venous pressure. HEART EXAMINATION: Heart S1 S2 1 systolic murmur is heard. CHEST EXAMINATION: Lungs are clear to auscultation and precussion. No chest wall tenderness is noted on palpation or with deep breathing. ABDOMEN: Soft, nontender. Bowel sounds are heard. No organomegaly noted. EXTREMITIES: 2+ peripheral pulses with no evidence of peripheral edema and no calf tenderness noted. NEUROLOGIC patient is awake, alert and oriented -3. . - Labs CBC & Chem 7: 03/05/17 06:19 03/05/17 06:19 Labs: Abnormal Lab Results - Last 24 Hours (Table) 03/05/17 03/05/17 Range/Units 06:19 06:19 WBC 13.3 H (3.8-10.6) k/uL Neutrophils # 10.1 H (1.3-7.7) k/uL Glucose 101 H (74-99) mg/dL Assessment and Plan Plan: Assessment and plan #1 non-ST elevation myocardial infarction, status post stenting of the RCA and circumflex with a possible occlusion of the diagonal branch. Repeat limited echocardiogram with Doppler study was performed which revealed an ejection fraction of 40-45%. #2 ischemic cardiomyopathy #3 nicotine dependence #4 hyperlipidemia Plan Patient may be able to be discharged home today from cardiology's perspective, we will make him a follow-up appointment in the office with Dr. Tabares post discharge. Patient will be discharged home on aspirin 81 mg daily, Lipitor 80 mg daily, Zestril 5 mg daily, metoprolol 50 mg one tablet by mouth twice a day, Effient 10 mg daily, and Aldactone 25 mg daily. Patient will also be sent with sublingual nitroglycerin as needed for chest pain. He has been provided all of the above medications on discharge. DNP note has been reviewed, I agree with a documented findings and plan of care. Patient was seen and examined.
[2017-03-05 10:59] VITALS: BP 106/60; PULSE 67
--- NOTE | 2017-03-08 00:26 | P.DS ---
Providers Date of admission: 03/02/17 07:47 Expected date of discharge: 03/05/17 Attending physician: Christina Woody Consults: 03/02/17 07:47 Consult Physician Urgent Consulting Provider: Neeru Tabares Consult Reason/Comments: known Do you want consulting provider notified?: Yes 03/02/17 09:43 Consult Physician Routine Consulting Provider: [facility] Consult Reason/Comments: Post Interventional patient Do you want consulting provider notified?: Already Contacted Primary care physician: Stated None Hospital Course: Discharge diagnosis Acute non-ST elevated GA status post cardiac catheterization and stent placement to left circumflex and right coronary artery Ischemic Cardiomyopathy ejection fraction 40-45% Nicotine addiction History of SVT. As per patient. Not on any medications Chest wall tenderness. Likely from recent fall. Resolved. With pain medications Hospital course Patient is a 56-year-old male with a known history of questionable SVT and currently not taking any medications and no recent PCP follow-up came to ER with complaints of chest discomfort. Patient initially had chest pain last night and patient took [place] at home without any relief of symptoms and patient presented to ER today morning. Chest pain is mainly left retrosternal associated with diaphoresis and dizziness. Chest pain with radiation to the back. 5/10 in severity. Patient denied any similar symptoms in the past. Otherwise patient continues to smoke 1 pack per day. No history of coronary disease. No history of hypertension, hyperlipidemia and diabetes mellitus. No associated nausea or dyspnea. Patient was found to have elevated troponin in the ER and was immediately taken to cardiac catheterization. Status post stent placement 2 Currently patient denied any chest pain. 03/03/2017 Patient is complaining of chest pain with deep breathing which is most likely musculoskeletal from recent fall. Otherwise no complaints of nausea vomiting or abdominal pain. No shortness of breath. Blood pressure is stable. No other acute overnight issues. 03/04/2017 Chest pain much improved now. No complaints of shortness of breath. Patient is able to ambulate. No nausea vomiting or abdominal pain. 2-D echo cardiac exam showed his ejection fraction 40-45%. Patient was continued on telemetry monitoring. Status post stent placement. Continue with aspirin, statins, metoprolol lisinopril and Effient. Smoking cessation has been counseled extensively.. Otherwise agent is stable to be discharged home. PHYSICAL EXAMINATION: Patient is lying in the bed comfortably, no acute distress, awake alert and oriented.. HEENT: Normocephalic. Neck is supple. Pupils reactive. Nostrils clear. Oral cavity is moist. Ears reveal no drainage. Neck reveals no JVD, carotid bruits, or thyromegaly. CHEST EXAMINATION: Trachea is central. Symmetrical expansion. Lung viera clear to auscultation and percussion. CARDIAC: Normal S1, S2 with no gallops. No murmurs ABDOMEN: Soft. Bowel sounds normal. No organomegaly. No abdominal bruits. Extremities: reveal no edema. No clubbing or cyanosis Neurologically awake, alert, oriented x3 with well-coordinated movements. No focal deficits noted Skin: No rash or skin lesions. Psychiatric: Coperative. Nonsuicidal Musculoskeletal: No joint swelling or deformity. Normal range of motion. Patient Condition at Discharge: Serious Plan - Discharge Summary Discharge Rx Participant: Yes New Discharge Prescriptions: New Aspirin 81 mg PO DAILY #30 chew Atorvastatin [Lipitor] 80 mg PO DAILY #30 tab Lisinopril [Zestril] 5 mg PO DAILY #30 tab Metoprolol Tartrate [Lopressor] 50 mg PO BID #60 tab Nitroglycerin Sl Tabs [Nitrostat] 0.4 mg SUBLINGUAL Q5M PRN #25 tab PRN Reason: Chest Pain Prasugrel [Effient] 10 mg PO DAILY #30 tab Spironolactone [Aldactone] 25 mg PO DAILY #30 tab Discharge Medication List Aspirin 81 mg PO DAILY #30 chew 03/05/17 [Rx] Atorvastatin [Lipitor] 80 mg PO DAILY #30 tab 03/05/17 [Rx] Lisinopril [Zestril] 5 mg PO DAILY #30 tab 03/05/17 [Rx] Metoprolol Tartrate [Lopressor] 50 mg PO BID #60 tab 03/05/17 [Rx] Nitroglycerin Sl Tabs [Nitrostat] 0.4 mg SUBLINGUAL Q5M PRN #25 tab 03/05/17 [Rx ] Prasugrel [Effient] 10 mg PO DAILY #30 tab 03/05/17 [Rx] Spironolactone [Aldactone] 25 mg PO DAILY #30 tab 03/05/17 [Rx] Follow up Appointment(s)/Referral(s): Neeru Tabares MD [STAFF PHYSICIAN] - 03/09/17 2:30 pm None,Stated [Primary Care Provider] - 1-2 days Activity/Diet/Wound Care/Special Instructions: Can the prescription for lipitor please be paper written so he can take it to [facility] for free. The rest can be e scribed here for indigent funds. Discharge Disposition: HOME SELF-CARE
== END 2017-03-05 14:13 | disposition home or self-care (01) | DRG 247 ==
LOC: EC 06:45 → 6SEL 07:47
PROVIDERS: ADMIT Hospitalist; ATTEND Hospitalist
PROC: B2151ZZ Fluoroscopy of Left Heart using Low Osmolar Contrast (ICD-10-PCS; 2017-03-02)
PROC: 027136Z Dilation of Coronary Artery, Two Arteries with Three Drug-eluting Intraluminal Devices, Percutaneous Approach (ICD-10-PCS; principal; 2017-03-02 08:10)
PROC: 4A023N7 Measurement of Cardiac Sampling and Pressure, Left Heart, Percutaneous Approach (ICD-10-PCS; 2017-03-02 08:10)
PROC: B2111ZZ Fluoroscopy of Multiple Coronary Arteries using Low Osmolar Contrast (ICD-10-PCS; 2017-03-02 08:10)
DX: I21.4 Non-ST elevation (NSTEMI) myocardial infarction (principal); E78.5 Hyperlipidemia, unspecified; I25.10 Atherosclerotic heart disease of native coronary artery without angina pectoris; F17.210 Nicotine dependence, cigarettes, uncomplicated; I25.5 Ischemic cardiomyopathy; Z86.79 Personal history of other diseases of the circulatory system; Z86.14 Personal history of Methicillin resistant Staphylococcus aureus infection; Z88.0 Allergy status to penicillin; Z82.49 Family history of ischemic heart disease and other diseases of the circulatory system; W19.XXXA Unspecified fall, initial encounter
CPT/HCPCS: 36415; 71045; 72072; 80048; 80053; 80061; 82550; 82553; 83735; 84484; 85025; 85049; 85610; 85730; 93005; 93306; 93308; 93458; 96374; 99291

== ENCOUNTER 2020-06-19 14:20 | Emergency (ER) | payer OTHER ==
[2020-06-19 14:37] VITALS: RESP 18; TEMP 97.7
--- NOTE | 2020-06-19 15:33 | ED ---
URI HPI - General Chief Complaint: Upper Respiratory Infection Stated Complaint: Coughing up blood Time Seen by Provider: 06/19/20 15:08 Source: patient Mode of arrival: ambulatory Limitations: no limitations - History of Present Illness Initial Comments: Well-appearing 59-year-old male who is current every day smoker presents to the ER today for chief complaint of coughing up blood 7-10 days. Patient states the past 7-10 days he has had a lot of coughing in the morning which she states is not totally unusual but he has no specks of blood she states sometimes her is more blood been on other occasions. Patient denies fevers chills night sweats. He denies any history of tuberculosis. Patient denies being homeless are/in fdc/group living. Denies weight loss. Patient denies hx of lung cancer, PE/DVT. Pt denies leg swelling/calf pain, recent surgeries/immobilization. Patient denies chest pain, dyspnea. Denies epistaxis He appears well nontoxic on arrival in no distress. - Related Data Previous Rx's Medication Instructions Recorded Aspirin 81 mg PO DAILY #30 chew 03/05/17 Atorvastatin [Lipitor] 80 mg PO DAILY #30 tab 03/05/17 Metoprolol Tartrate [Lopressor] 50 mg PO BID #60 tab 03/05/17 Nitroglycerin Sl Tabs [Nitrostat] 0.4 mg SUBLINGUAL Q5M PRN #25 tab 03/05/17 Prasugrel [Effient] 10 mg PO DAILY #30 tab 03/05/17 Spironolactone [Aldactone] 25 mg PO DAILY #30 tab 03/05/17 lisinopriL [Zestril] 5 mg PO DAILY #30 tab 03/05/17 Allergies Allergy/AdvReac Type Severity Reaction Status Date / Time Penicillins Allergy Unknown Verified 06/19/20 14:37 Review of Systems ROS Statement: Those systems with pertinent positive or pertinent negative responses have been documented in the HPI. ROS Other: All systems not noted in ROS Statement are negative. Past Medical History Past Medical History: Chest Pain / Angina Additional Past Medical History / Comment(s): SVT with chest pain/palpitations- chemically converted. History of Any Multi-Drug Resistant Organisms: MRSA Date of last positivie culture/infection: 12/23/2013 MDRO Source:: Face Past Surgical History: No Surgical Hx Reported Additional Past Surgical History / Comment(s): I&D of R inframandibular abscess. Past Anesthesia/Blood Transfusion Reactions: No Reported Reaction Past Psychological History: No Psychological Hx Reported Smoking Status: Current every day smoker Past Alcohol Use History: Rare Past Drug Use History: Marijuana - Past Family History Father Family Medical History: No Reported History Additional Family Medical History / Comment(s): Father of "natural causes" at the age of 79yrs. Mother Family Medical History: COPD, Coronary Artery Disease (CAD) Additional Family Medical History / Comment(s): Mother is 76yrs old. She has had several MIs, 6 cardiac stents and a 4 vessel CABG. General Exam - General Exam Comments Initial Comments: General: The patient is awake and alert, in no distress Eye: +3 mm pupils are equal, round and reactive to light, extra-ocular movements are intact. No nystagmus. There is normal conjunctiva bilaterally. No signs of icterus. Ears, nose, mouth and throat: There are moist mucous membranes and no oral lesions. Neck: The neck is supple, there is no tenderness or JVD. Cardiovascular: There is a regular rate and rhythm. No murmur, rub or gallop is appreciated. Respiratory: Lungs are clear to auscultation, respirations are non-labored, breath sounds are equal. No wheezes, stridor, rales, or rhonchi. Gastrointestinal: Soft, non-distended, non-tender abdomen without masses or organomegaly noted. There is no rebound or guarding present. Musculoskeletal: Normal ROM, no tenderness. Strength 5/5. Sensation intact. Radial and DP pulses equal bilaterally 2+. Neurological: A&O x 3. CN II-XII intact grossly, There are no obvious motor or sensory deficits. Coordination appears grossly intact. Speech is normal. Skin: Skin is warm and dry and no rashes or lesions are noted. No leg swelling or calf pain Psychiatric: Cooperative, appropriate mood & affect, normal judgment. Limitations: no limitations Course Vital Signs 06/19/20 14:34 Temperature 97.7 F Pulse Rate 62 Respiratory 18 Rate Blood Pressure 133/74 O2 Sat by Pulse 100 Oximetry Medical Decision Making - Medical Decision Making Labs stable. CXR clear. Lungs clear. Dimer (-). Troponin (-); obtained in case dimer elevated. EKG No specific findings. no hx of dyspnea/palpitations. pt is not tachycardic. Pt appears well nontoxic in no distress. I discussed case in detail with Alma Davis who is agreeable to dishcarge with further outpatient evaluation. +/- chest CT as deemed fit. Patient aware that we cannot r/o malignancy/as well as importance of prompt f/u in next 1-2 weeks return for worsening symptoms. Ventricular rate 50 bpm, FL interval 146 most seconds, QRS duration 90 ms, QT/QTC 420/382 ms. This is sinus bradycardia. There is no ST elevation or depression appreciated - Lab Data Result diagrams: 06/19/20 15:34 06/19/20 15:34 Lab Results 06/19/20 06/19/20 06/19/20 Range/Units 15:34 15:34 15:34 WBC 7.2 (3.8-10.6) k/uL RBC 4.48 (4.30-5.90) m/uL Hgb 14.0 (13.0-17.5) gm/dL Hct 41.6 (39.0-53.0) % MCV 92.9 (80.0-100.0) fL MCH 31.3 (25.0-35.0) pg MCHC 33.7 (31.0-37.0) g/dL RDW 13.0 (11.5-15.5) % Plt Count 254 (150-450) k/uL MPV 8.4 Neutrophils % 67 % Lymphocytes % 22 % Monocytes % 7 % Eosinophils % 2 % Basophils % 1 % Neutrophils # 4.8 (1.3-7.7) k/uL Lymphocytes # 1.5 (1.0-4.8) k/uL Monocytes # 0.5 (0-1.0) k/uL Eosinophils # 0.1 (0-0.7) k/uL Basophils # 0.0 (0-0.2) k/uL PT 9.7 (9.0-12.0) sec INR 0.9 (<1.2) APTT 24.7 (22.0-30.0) sec D-Dimer 0.23 (<0.60) mg/L FEU Sodium 137 (137-145) mmol/L Potassium 4.8 (3.5-5.1) mmol/L Chloride 102 (98-107) mmol/L Carbon Dioxide 29 (22-30) mmol/L Anion Gap 6 mmol/L BUN 19 (9-20) mg/dL Creatinine 0.86 (0.66-1.25) mg/dL Est GFR (CKD-EPI)AfAm >90 (>60 ml/min/1.73 sqM) Est GFR (CKD-EPI)NonAf >90 (>60 ml/min/1.73 sqM) Glucose 91 (74-99) mg/dL Calcium 9.6 (8.4-10.2) mg/dL Total Bilirubin 0.2 (0.2-1.3) mg/dL AST 27 (17-59) U/L ALT 18 (4-49) U/L Alkaline Phosphatase 60 (38-126) U/L Troponin I (0.000-0.034) ng/mL NT-Pro-B Natriuret Pep pg/mL Total Protein 7.6 (6.3-8.2) g/dL Albumin 4.3 (3.5-5.0) g/dL 06/19/20 06/19/20 Range/Units 15:34 15:34 WBC (3.8-10.6) k/uL RBC (4.30-5.90) m/uL Hgb (13.0-17.5) gm/dL Hct (39.0-53.0) % MCV (80.0-100.0) fL MCH (25.0-35.0) pg MCHC (31.0-37.0) g/dL RDW (11.5-15.5) % Plt Count (150-450) k/uL MPV Neutrophils % % Lymphocytes % % Monocytes % % Eosinophils % % Basophils % % Neutrophils # (1.3-7.7) k/uL Lymphocytes # (1.0-4.8) k/uL Monocytes # (0-1.0) k/uL Eosinophils # (0-0.7) k/uL Basophils # (0-0.2) k/uL PT (9.0-12.0) sec INR (<1.2) APTT (22.0-30.0) sec D-Dimer (<0.60) mg/L FEU Sodium (137-145) mmol/L Potassium (3.5-5.1) mmol/L Chloride (98-107) mmol/L Carbon Dioxide (22-30) mmol/L Anion Gap mmol/L BUN (9-20) mg/dL Creatinine (0.66-1.25) mg/dL Est GFR (CKD-EPI)AfAm (>60 ml/min/1.73 sqM) Est GFR (CKD-EPI)NonAf (>60 ml/min/1.73 sqM) Glucose (74-99) mg/dL Calcium (8.4-10.2) mg/dL Total Bilirubin (0.2-1.3) mg/dL AST (17-59) U/L ALT (4-49) U/L Alkaline Phosphatase (38-126) U/L Troponin I <0.012 (0.000-0.034) ng/mL NT-Pro-B Natriuret Pep 102 pg/mL Total Protein (6.3-8.2) g/dL Albumin (3.5-5.0) g/dL Disposition Clinical Impression: Hemoptysis Disposition: HOME SELF-CARE Condition: Good Instructions (If sedation given, give patient instructions): Hemoptysis (ED) Additional Instructions: Please follow-up with family doctor in the next 2 days, recommend possible CT in the outpatient setting to r/o cancerous process. Please return to emergency room if the symptoms increase or worsen or for any other concerns-such as increasing hemoptysis, dyspnea, chest pains. Is patient prescribed a controlled substance at d/c from ED?: No Referrals: None,Stated [Primary Care Provider] - 1-2 days [facility] - [facility]-2 days Time of Disposition: 16:28
[2020-06-19 15:54] LABS: Basophils % (A) 1 %; Eosinophils # (A) 0.1 k/uL (0-0.7); Eosinophils % (A) 2 %; HCT 41.6 % (39.0-53.0); Lymphocytes # (A) 1.5 k/uL (1.0-4.8); Lymphocytes % (A) 22 %; MCH 31.3 pg (25.0-35.0); MCHC 33.7 g/dL (31.0-37.0); MCV 92.9 fL (80.0-100.0); Mean Platelet Volume 8.4; Monocytes # (A) 0.5 k/uL (0-1.0); Monocytes % (A) 7 %; Neutrophils # (A) 4.8 k/uL (1.3-7.7); Neutrophils % (A) 67 %; Platelet Count 254 k/uL (150-450); RBC 4.48 m/uL (4.30-5.90); WBC 7.2 k/uL (3.8-10.6)
--- NOTE | 2020-06-19 15:58 | XR ---
EXAMINATION TYPE: XR chest 2V DATE OF EXAM: 06/19/2020 COMPARISON: Chest x-ray March 02, 2017 HISTORY: Hemostasis for one week. TECHNIQUE: Frontal and lateral views of the chest are obtained. FINDINGS: There is chronic emphysematous and parenchymal change without suspicious focal air space o pacity, pleural effusion, or pneumothorax seen. The cardiac silhouette size is stable and within nor mal limits. The osseous structures are intact. IMPRESSION: Chronic changes without acute pulmonary process. No significant change from prior.
[2020-06-19 16:08] LABS: D-Dimer 0.23 mg/L FEU (<0.60); INR 0.9 (<1.2); Partial Thromboplastin Time 24.7 sec (22.0-30.0); Prothrombin Time 9.7 sec (9.0-12.0)
[2020-06-19 16:16] LABS: ALT 18 U/L (4-49); AST 27 U/L (17-59); African American GFR (CKD) >90 (>60 ml/min/1.73 sqM); Albumin 4.3 g/dL (3.5-5.0); Alkaline Phosphatase 60 U/L (38-126); Anion Gap 6 mmol/L; Blood Urea Nitrogen 19 mg/dL (9-20); Calcium 9.6 mg/dL (8.4-10.2); Carbon Dioxide 29 mmol/L (22-30); Chloride 102 mmol/L (98-107); Glucose 91 mg/dL (74-99); Non-African American GFR(CKD) >90 (>60 ml/min/1.73 sqM); Potassium 4.8 mmol/L (3.5-5.1); Sodium 137 mmol/L (137-145); Total Bilirubin 0.2 mg/dL (0.2-1.3); Total Protein 7.6 g/dL (6.3-8.2)
[2020-06-19 16:44] VITALS: BP 124/70; PULSE 58
== END 2020-06-19 16:43 | disposition home or self-care (01) ==
LOC: EC 14:20
DX: R04.2 Hemoptysis (principal); F12.90 Cannabis use, unspecified, uncomplicated; F17.200 Nicotine dependence, unspecified, uncomplicated; Z88.0 Allergy status to penicillin; Z79.82 Long term (current) use of aspirin
CPT/HCPCS: 36415; 71046; 80053; 83880; 84484; 85025; 85379; 85610; 85730; 93005; 99284

== ENCOUNTER → 2021-02-02 | Outpatient (CLI) | payer OTHER ==
--- NOTE | 2021-02-02 11:20 | CT ---
EXAMINATION TYPE: CT chest w con DATE OF EXAM: 02/02/2021 COMPARISON: CT chest 11/19/2011 and chest x-ray 06/19/2020 HISTORY: 60-year-old male D0 4.2, hemoptysis x3 months TECHNIQUE: Contiguous axial scanning of the chest after the administration of 100 mL of Isovue 300. Coronal/sagittal reconstructions performed. CT DLP: 429mGycm. Automatic exposure control utilized for a dose reduction. FINDINGS: Heart normal size without pericardial effusion. Three-vessel coronary artery calcifications are prese nt. Minimal atherosclerotic arch calcifications. Conventional arch vessel branching anatomy. 1.1 cm posterior tracheal lymph node, axial image 12. Lower right paratracheal lymph node 2.4 x 1.7 cm. Right hilar lymph node 2.3 x 1.5 cm. Subcarinal lymph node 2.3 cm. Soft tissue encasement of the left hilum measuring up to 8.6 x 6.8 cm and contiguous with the subcari nal adenopathy. There are areas of central low density and extension across the major fissure into eris th the upper lobe and lower lobe. There is mild extrinsic mass effect causing mild narrowing of the l eft mainstem bronchus and upper lobe branches. Cut off of the left lower lobe bronchus. Mild ground glass and tree-in-bud opacities within the left lower lobe suggesting postobstructive changes. Lobulated, spiculated mass right perihilar region measuring 4.1 x 2.4 cm containing a small area of c avitation and additional areas of central low density. This is located predominantly within the right upper lobe but involves the major fissure. There is some associated endobronchial opacification of a pical segmental and subsegmental bronchi. A 6 mm nodule right mid lung located along the major fissure, likely subpleural lymph node. 3 mm similar nodule periphery of the right base also along the major fissure likely subpleural lymph node. Indeterminate 6 mm nodular density posterior right upper lobe, axial image 18. Reassess at follow-up. Possible infectious/inflammatory focus. Background of moderate upper lung emphysema. No pleural effusion. Visualized upper abdomen shows no gross abnormality. Bones: Moderate degenerative disc disease mid to lower thoracic spine. Accentuated mid thoracic kypho sis. Old healed sternal body fracture deformity. IMPRESSION: 1. COPD with moderate emphysema. 2. Centrally necrotic neoplasm/lung cancer encasing the left hilum and contiguous with subcarinal monica nopathy, narrowing the left mainstem and left upper lobe bronchi and cutting off the left lower lobe bronchus. This measures up to 8.6 cm. Mild postobstructive pneumonitis changes in the left lower lobe . 3. A second spiculated, centrally necrotic 4.1 cm right perihilar, upper lobe mass narrowing apical s egmental/subsegmental branches. 4. Indeterminate 6 mm posterior right upper lobe nodule. Slightly ill-defined on coronal series. Poss ible infectious/inflammatory focus rather than metastatic pulmonary nodule. Reassess at follow-up. 5. Paratracheal and subcarinal adenopathy measuring up to 2.4 cm.
== END | disposition home or self-care (01) ==
LOC: RADCTMAIN 08:31
PROVIDERS: ATTEND Internal Medicine
DX: C34.92 Malignant neoplasm of unspecified part of left bronchus or lung (principal); J43.9 Emphysema, unspecified; R59.1 Generalized enlarged lymph nodes; R91.8 Other nonspecific abnormal finding of lung field
CPT/HCPCS: 71260; Q9967

== ENCOUNTER 2021-02-09 10:03 | Day surgery (SDC) | payer OTHER ==
[~2021-02-09 10:03] MED LIST: LACTATED RINGERS 1,000 ML IV SCH
[2021-02-09 10:30] VITALS: TEMP 97.8
[2021-02-09] MEDS ORDERED: MIDAZOLAM 2 MG/2 ML VIAL IV ONE (10:40)
[2021-02-09] MEDS ORDERED: LIDOCAINE 1% INJ 10MG/ML (20 ML MDV) ONE (13:17)
[2021-02-09] MEDS ORDERED: PROPOFOL 10 MG/ML 20 ML VIAL IV ONE (13:17)
[2021-02-09] MEDS ORDERED: ALBUTEROL NEBULIZED 2.5 MG/3 ML INHALATION STA (14:34)
--- NOTE | 2021-02-09 14:48 | XR ---
EXAMINATION TYPE: XR chest 1V portable DATE OF EXAM: 02/09/2021 HISTORY: Shortness of breath. COMPARISON: 06/19/2020 TECHNIQUE: Single view of the chest is submitted. FINDINGS: Demonstrated are scattered senescent parenchymal change. Spiculated left hilar mass measuring an estimated 5.6 x 4.8 cm. The heart is stable. Hilar and mediastinal structures are within normal limits. Degenerative changes are seen of the dorsal spine. IMPRESSION: 1. Spiculated left hilar mass measuring an estimated 5.6 x 4.8 cm.
[2021-02-09 15:16] VITALS: BP 94/56; PULSE 62; RESP 18
--- NOTE | 2021-04-07 12:06 | P.PCN ---
Date of Procedure: 02/09/21 Preoperative Diagnosis: Bilateral lung mass Postoperative Diagnosis: As above Procedure(s) Performed: Bronchoscopy, bilateral bronchial biopsy from the left main bronchus as well as the right main bronchus, DL, brushing Anesthesia: MAC Surgeon: Estrada Laughlin Estimated Blood Loss (ml): 10 Condition: stable Disposition: same day Indications for Procedure: Bilateral mass on the lung on computed tomography scan Operative Findings: As below Description of Procedure: Patient prepared and draped in a usual fashion informed consent obtained from the patient, fiberoptic bronchoscope was passed to the knees, vocal cords were inspected, normal function of the vocal cord noted along with movement, tip of the scope was has beyond the vocal cords into the trachea which was normal appearance, on the right side there was mucosal irregularities and narrowing was noted into the right mainstem bronchus biopsies BAL and brushing was obtained, scope was moved to the left side similar findings were noted biopsy brushing and BAL was obtained, patient tolerated the procedure well no complication noted
== END 2021-02-09 15:24 | disposition home or self-care (01) ==
LOC: ORWHC2ENDO 10:03
PROVIDERS: ATTEND Internal Medicine Sleep Medicine
DX: C34.11 Malignant neoplasm of upper lobe, right bronchus or lung (principal); I25.10 Atherosclerotic heart disease of native coronary artery without angina pectoris; I25.2 Old myocardial infarction; I47.1 Supraventricular tachycardia; F17.210 Nicotine dependence, cigarettes, uncomplicated; Z79.82 Long term (current) use of aspirin; Z79.899 Other long term (current) drug therapy; Z88.0 Allergy status to penicillin
CPT/HCPCS: 94640; 88104; 88108; 88305; 71045; 31628; 31623; 31624; J2250; J2001; J2704; 31625; 87070; 87102; 87116; 87205; 87206

== ENCOUNTER → 2021-02-27 | Outpatient (CLI) | payer OTHER ==
--- NOTE | 2021-02-27 21:47 | MR ---
EXAMINATION TYPE: MR brain wo/w con DATE OF EXAM: 02/27/2021 COMPARISON: NONE HISTORY: Newly diagnosed Lung cancer TECHNIQUE: Multiplanar, multisequence images of the brain and brainstem is performed without and with IV contras t, utilizing 7.5 mL intravenous Gadavist . FINDINGS: Diffusion weighted images demonstrate no evidence of a recent infarct or other diffusion ab normality. There is mild to moderate ventricular and sulcal prominence. Scattered small foci T2 hype rintensity is seen throughout the white matter bilaterally. Approximately 30 scattered lesions are pr esent. Lesions are nonspecific in appearance and distribution. Midline structures demonstrate normal morphology. The craniocervical junction appears within normal limits. Post contrast images demonstrate no abnormal enhancement or enhancing masses.. The dural ashwini ous sinuses appear patent. The visualized sinuses are clear and the globes are intact. IMPRESSION: Mild to moderate diffuse cerebral atrophy and chronic small vessel ischemic change. No ivy spicious enhancing masses to suggest metastatic disease to the brain.
== END | disposition home or self-care (01) ==
LOC: RADMRIMAIN 18:40
PROVIDERS: ATTEND Internal Medicine Hematology & Oncology
DX: C34.12 Malignant neoplasm of upper lobe, left bronchus or lung (principal); G31.89 Other specified degenerative diseases of nervous system; I67.82 Cerebral ischemia
CPT/HCPCS: 70553; A9585

== ENCOUNTER 2021-03-04 20:03 | Inpatient (IN) | payer OTHER ==
--- NOTE | 2021-03-04 20:40 | XR ---
EXAMINATION TYPE: XR chest 1V portable DATE OF EXAM: 03/04/2021 COMPARISON: 02/09/2021 HISTORY: Rib pain. Cough. TECHNIQUE: Single view FINDINGS: Heart is normal. There is some bulkiness left perihilum and superior aspect right pulmonary hilum. There is no pneumothorax. Trachea is midline. No pleural effusion. No heart failure. There is thickening left clavicle consistent with old fracture. IMPRESSION: Bilateral pulmonary and hilar densities increased on the right side and stable on the lef t side compared to old exam. No pneumothorax. No obvious rib fracture.
[2021-03-04] MEDS ORDERED: LIDOCAINE 5% PATCH TOPICAL STA (20:54)
[2021-03-04] MEDS ORDERED: MORPHINE SULFATE 4 MG/ML SYRINGE IV STA (20:54)
--- NOTE | 2021-03-04 21:07 | ED ---
General Adult HPI - General Source: patient Mode of arrival: ambulatory Limitations: no limitations <Samuel Yun - Last Filed: 03/04/21 22:49> <Akhil Jamil - Last Filed: 03/04/21 23:51> - General Chief complaint: Chest Pain Stated complaint: Difficulty Breathing, Rib Injury, Lung Cancer Time Seen by Provider: 03/04/21 20:25 - History of Present Illness Initial comments: Dictation was produced using [employer] dictation software. please excuse any grammatical, word or spelling errors. Chief Complaint: 60-year-old now presents with chest pain History of Present Illness: Is 60-year-old male presents emergency department with chest pain. States that is over his left lateral ribs. He states he was coughing hard when he felt a sharp pop around his rib area. Patient states that hurts when he takes a deep breath and moves in certain positions. Patient states the pain is making him short of breath. Patient denies any history of pneumothorax or blood clots. Recently diagnosed with lung cancer. No fevers. No cough The ROS documented in this emergency department record has been reviewed and confirmed by me. Those systems with pertinent positive or negative responses h ave been documented in the HPI. All other systems are other negative and/or noncontributory. PHYSICAL EXAM: General Impression: Alert and oriented x3, not in acute distress HEENT: Normocephalic atraumatic, extra-ocular movements intact, pupils equal and reactive to light bilaterally, mucous membranes moist. Cardiovascular: Heart regular rate and rhythm Chest: Able to complete full sentences, no retractions, no tachypnea, palpatory tenderness over the left ribs at approximately area of rib 9 Abdomen: abdomen soft, non-tender, non-distended, no organomegaly Musculoskeletal: Pulses present and equal in all extremities, no peripheral edema Motor: no focal deficits noted Neurological: CN II-XII grossly intact, no focal motor or sensory deficits noted Skin: Intact with no visualized rashes Psych: Normal affect and mood ED course: 60-year-old male presents with chest pain. He has reproducible pain over his left ribs. Patient however has history of recently diagnosed lung cancer. His complaint of shortness of breath. As upon arrival are within acceptable limits. Laboratory evaluation obtained. Leukocytosis of 16.1. Patient not have any infectious symptoms. He has had elevated white blood cell count the past. Coag panel is unremarkable. Metabolic panel is negative. D-dimer 0.78. Chest x-ray is unremarkable. Patient given morphine and Lidoderm patch. Pending computed t omography scan. Patient care was be signed out to Dr. Snyder. EKG interpretation: Ventricular rate 84, normal sinus rhythm,. 144, QRS 84, QTC 4:15. No CA prolongation, no QTC prolongation, no ST or T-wave changes noted. Overall, this EKG is unremarkable (Samuel Yun) - Related Data Home Medications Medication Instructions Recorded Confirmed Albuterol Inhaler [Ventolin Hfa 2 puff INHALATION RT-QID PRN 03/04/21 03/04/21 Inhaler] Atorvastatin [Lipitor] 80 mg PO HS 03/04/21 03/04/21 Metoprolol Tartrate [Lopressor] 50 mg PO BID-W/MEALS 03/04/21 03/04/21 Tiotropium 18 Mcg/Puff [Spiriva] 1 puff INHALATION RT-DAILY 03/04/21 03/04/21 lisinopriL [Zestril] 5 mg PO HS 03/04/21 03/04/21 Previous Rx's Medication Instructions Recorded Aspirin 81 mg PO DAILY #30 chew 03/05/17 Nitroglycerin Sl Tabs [Nitrostat] 0.4 mg SUBLINGUAL Q5M PRN #25 tab 03/05/17 Spironolactone [Aldactone] 25 mg PO DAILY #30 tab 03/05/17 Allergies Allergy/AdvReac Type Severity Reaction Status Date / Time Penicillins Allergy Unknown Verified 03/04/21 23:13 Review of Systems ROS Other: All systems not noted in ROS Statement are negative. <Samuel Yun - Last Filed: 03/04/21 22:49> ROS Other: All systems not noted in ROS Statement are negative. <Akhil Jamil - Last Filed: 03/04/21 23:51> ROS Statement: Those systems with pertinent positive or pertinent negative responses have been documented in the HPI. 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 Past Anesthesia/Blood Transfusion Reactions: No Reported Reaction Past Psychological History: No Psychological Hx Reported Smoking Status: Current every day smoker Past Alcohol Use History: Rare Past Drug Use History: Marijuana - Past Family History Father Family Medical History: No Reported History Additional Family Medical History / Comment(s): Father of "natural causes" at the age of 79yrs. Mother Family Medical History: COPD, Coronary Artery Disease (CAD) Additional Family Medical History / Comment(s): Mother is 76yrs old. She has had several MIs, 6 cardiac stents and a 4 vessel CABG. <Samuel Yun - Last Filed: 03/04/21 22:49> General Exam Limitations: no limitations <Samuel Yun - Last Filed: 03/04/21 22:49> General appearance: alert, in no apparent distress Head exam: Present: atraumatic, normocephalic, normal inspection Eye exam: Present: normal appearance, PERRL, EOMI. Absent: scleral icterus, conjunctival injection, periorbital swelling ENT exam: Present: normal exam, mucous membranes moist Neck exam: Present: normal inspection. Absent: tenderness, meningismus, lymphadenopathy Respiratory exam: Present: normal lung sounds bilaterally. Absent: respiratory distress, wheezes, rales, rhonchi, stridor Cardiovascular Exam: Present: regular rate, normal rhythm, normal heart sounds. Absent: systolic murmur, diastolic murmur, rubs, gallop, clicks GI/Abdominal exam: Present: soft, normal bowel sounds. Absent: distended, tende rness, guarding, rebound, rigid Extremities exam: Present: normal inspection, full ROM, normal capillary refill. Absent: tenderness, pedal edema, joint swelling, calf tenderness Back exam: Present: normal inspection Neurological exam: Present: alert, oriented X3, CN II-XII intact Psychiatric exam: Present: normal affect, normal mood Skin exam: Present: warm, dry, intact, normal color. Absent: rash <Akhil Jamil - Last Filed: 03/04/21 23:51> Course <Akhil Jamil - Last Filed: 03/04/21 23:51> Vital Signs 03/04/21 03/04/21 03/04/21 20:08 21:40 22:40 Temperature 98.2 F Pulse Rate 84 88 83 Respiratory 18 18 18 Rate Blood Pressure 109/62 106/62 115/68 O2 Sat by Pulse 99 98 98 Oximetry - Reevaluation(s) Reevaluation #1: 03/04/21 23:50 Medical records reviewed (Akhil Jamil) Reevaluation #2: 03/04/21 23:50 Patient is feeling improved here with hydration, breathing treatment (Akhil Jamil) Reevaluation #3: 03/04/21 23:50 Patient is informed of results and questions answered (Akhil Jamil) Medical Decision Making - Lab Data Result diagrams: 03/04/21 21:40 03/04/21 21:40 <Samuel Yun - Last Filed: 03/04/21 22:49> - Lab Data Result diagrams: 03/04/21 21:40 03/04/21 21:40 - Radiology Data Radiology results: report reviewed (CTA of chest chest no PE positive pneumonia new), image reviewed <Akhil Jamil - Last Filed: 03/04/21 23:51> - Medical Decision Making 60 male DF for evaluation underlying lung CA, patient does have significant pneumonia leukocytosis and tachycardia. Patient also found to have elevated pot assium, potassium we'll be treated and checked again patient will be admitted for IV antibiotics and further supportive care (Akhil Jamil) - Lab Data Lab Results 03/04/21 03/04/21 03/04/21 Range/Units 21:40 21:40 21:40 WBC 16.1 H (3.8-10.6) k/uL RBC 4.03 L (4.30-5.90) m/uL Hgb 12.3 L (13.0-17.5) gm/dL Hct 37.9 L (39.0-53.0) % MCV 94.0 (80.0-100.0) fL MCH 30.5 (25.0-35.0) pg MCHC 32.5 (31.0-37.0) g/dL RDW 13.3 (11.5-15.5) % Plt Count 346 (150-450) k/uL MPV 8.2 Neutrophils % 87 % Lymphocytes % 6 % Monocytes % 6 % Eosinophils % 0 % Basophils % 0 % Neutrophils # 13.9 H (1.3-7.7) k/uL Lymphocytes # 0.9 L (1.0-4.8) k/uL Monocytes # 1.0 (0-1.0) k/uL Eosinophils # 0.1 (0-0.7) k/uL Basophils # 0.1 (0-0.2) k/uL PT 10.0 (9.0-12.0) sec INR 0.9 (<1.2) APTT 26.4 (22.0-30.0) sec D-Dimer 0.78 H (<0.60) mg/L FEU Sodium 135 L (137-145) mmol/L Potassium 5.5 H (3.5-5.1) mmol/L Chloride 99 (98-107) mmol/L Carbon Dioxide 28 (22-30) mmol/L Anion Gap 8 mmol/L BUN 18 (9-20) mg/dL Creatinine 0.70 (0.66-1.25) mg/dL Est GFR (CKD-EPI)AfAm >90 (>60 ml/min/1.73 sqM) Est GFR (CKD-EPI)NonAf >90 (>60 ml/min/1.73 sqM) Glucose 100 H (74-99) mg/dL Calcium 9.9 (8.4-10.2) mg/dL Critical Care Time Critical Care Time: Yes Total Critical Care Time: 31 <Akhil Jamil - Last Filed: 03/04/21 23:51> Disposition <Samuel Yun - Last Filed: 03/04/21 22:49> Is patient prescribed a controlled substance at d/c from ED?: No <Akhil Jamil - Last Filed: 03/04/21 23:51> Clinical Impression: Atypical chest pain, Lung cancer, Pneumonia, Leukocytosis, Hyperkalemia Disposition: ADMITTED IP TO THIS HOSP Condition: Fair Referrals: Noe Bonilla MD [Primary Care Provider] - 1-2 days
[2021-03-04 21:57] LABS: Basophils # (A) 0.1 k/uL (0-0.2); Basophils % (A) 0 %; Eosinophils # (A) 0.1 k/uL (0-0.7); Eosinophils % (A) 0 %; HCT 37.9 % (39.0-53.0); HGB 12.3 gm/dL (13.0-17.5); Lymphocytes # (A) 0.9 k/uL (1.0-4.8); Lymphocytes % (A) 6 %; MCH 30.5 pg (25.0-35.0); MCHC 32.5 g/dL (31.0-37.0); Mean Platelet Volume 8.2; Monocytes % (A) 6 %; Neutrophils # (A) 13.9 k/uL (1.3-7.7); Neutrophils % (A) 87 %; Platelet Count 346 k/uL (150-450); RBC 4.03 m/uL (4.30-5.90); RDW 13.3 % (11.5-15.5); WBC 16.1 k/uL (3.8-10.6)
[2021-03-04 22:10] LABS: INR 0.9 (<1.2); Partial Thromboplastin Time 26.4 sec (22.0-30.0)
[2021-03-04 22:11] LABS: African American GFR (CKD) >90 (>60 ml/min/1.73 sqM); Anion Gap 8 mmol/L; Blood Urea Nitrogen 18 mg/dL (9-20); Calcium 9.9 mg/dL (8.4-10.2); Carbon Dioxide 28 mmol/L (22-30); Chloride 99 mmol/L (98-107); Glucose 100 mg/dL (74-99); Non-African American GFR(CKD) >90 (>60 ml/min/1.73 sqM); Potassium 5.5 mmol/L (3.5-5.1); Sodium 135 mmol/L (137-145)
[2021-03-04] MEDS ORDERED: INSULIN REGULAR 100 UNIT/ML VIAL (IV) IV ONE (22:51)
[2021-03-04] MEDS ORDERED: SODIUM CHLORIDE 0.9% 1,000 ML IV STA (22:51)
[2021-03-04] MEDS ORDERED: DEXTROSE 50% SYRINGE 50 ML IVP STA (22:51)
[2021-03-04] MEDS ORDERED: SODIUM BICARB 8.4% 50 ML SYR (1 MEQ/ML) IV STA (22:51)
--- NOTE | 2021-03-04 23:30 | CT ---
EXAMINATION TYPE: CT angio chest DATE OF EXAM: 03/04/2021 COMPARISON: 02/02/2021 HISTORY: pe CT DLP: 254 mGycm Automated exposure control for dose reduction was used. CONTRAST: Performed with IV Contrast, patient injected with 100 mL of Isovue 370. There are Three-D postprocessed images. There is irregular 3.8 cm stellate mass in the right upper lobe above the right pulmonary hilum. Ther e is stellate mass at the left pulmonary hilum measuring 5.5 cm and encasing the left lower lobe pulm onary artery. There is narrowing of the lumen. I see no filling defect. There is some patchy lingular infiltrate. Heart size is normal. There is 3.5 cm enlarged subcarinal lymph node. Thoracic aorta is intact. There is no aneurysm or dissection. The ascending aorta measures 3.3 cm. There is some patchy reticular nodular infiltrate in the left lower lobe posteriorly. There is normal contrast opacification of the pulmonary arteries. There are no filling defects. The t horacic spine is intact. There is no compression fracture. Sternum shows old healed oblique fracture. IMPRESSION: No evidence of pulmonary embolism. Masslike densities as above consistent with tumor at the superior right pulmonary hilum and at the le ft pulmonary hilum that appear not significantly different than old exam. There is a new mild lingula r infiltrate compared to old exam. There is patchy left lower lobe infiltrate not significantly diffe rent.
[2021-03-04] MEDS ORDERED: AZITHROMYCIN 500 MG in SODIUM CHLORIDE 0.9% 250 ML IVPB STA (23:47)
[2021-03-04] MEDS ORDERED: IPRATROPIUM-ALBUTEROL 3 ML NEB INHALATION STA (23:47)
[2021-03-04] MEDS ORDERED: ONDANSETRON 4 MG/2 ML VIAL IVP PRN (23:48)
[2021-03-04] MEDS ORDERED: NALOXONE 0.4 MG/ML 1 ML VIAL IV PRN (23:48)
[2021-03-05] MEDS: SODIUM CHLORIDE 0.9% 1,000 ML IV SCH ×3 (01:45→18:49)
[2021-03-05] MEDS: MORPHINE SULFATE 4 MG/ML SYRINGE IV PRN ×3 (02:24→16:13)
[2021-03-05 06:25] LABS: Basophils % (A) 0 %; Eosinophils % (A) 0 %; HCT 34.9 % (39.0-53.0); HGB 11.1 gm/dL (13.0-17.5); Lymphocytes # (A) 1.1 k/uL (1.0-4.8); Lymphocytes % (A) 8 %; MCH 30.1 pg (25.0-35.0); MCHC 31.9 g/dL (31.0-37.0); MCV 94.6 fL (80.0-100.0); Mean Platelet Volume 8.1; Monocytes # (A) 1.3 k/uL (0-1.0); Monocytes % (A) 10 %; Neutrophils # (A) 10.6 k/uL (1.3-7.7); Neutrophils % (A) 80 %; Platelet Count 300 k/uL (150-450); RBC 3.69 m/uL (4.30-5.90); RDW 13.2 % (11.5-15.5); WBC 13.1 k/uL (3.8-10.6)
[2021-03-05 06:38] LABS: African American GFR (CKD) >90 (>60 ml/min/1.73 sqM); Anion Gap 5 mmol/L; Blood Urea Nitrogen 13 mg/dL (9-20); Calcium 9.1 mg/dL (8.4-10.2); Carbon Dioxide 29 mmol/L (22-30); Chloride 99 mmol/L (98-107); Glucose 115 mg/dL (74-99); Magnesium 1.9 mg/dL (1.6-2.3); Non-African American GFR(CKD) >90 (>60 ml/min/1.73 sqM); Phosphorus 3.9 mg/dL (2.5-4.5); Potassium 4.6 mmol/L (3.5-5.1); Sodium 133 mmol/L (137-145)
[2021-03-05] MEDS: IPRATROPIUM-ALBUTEROL 3 ML NEB INHALATION PRN ×4 (07:57→18:59)
[2021-03-05] MEDS ORDERED: NITROGLYCERIN SL TABS 0.4 MG TAB SUBLINGUAL PRN (10:19)
[2021-03-05] MEDS ORDERED: ALBUTEROL HFA INHALER INHALATION PRN (10:19)
[2021-03-05] MEDS: HYDROcodone/APAP 10-325MG 1 EACH TAB PO PRN ×2 (10:27→18:11)
[2021-03-05] MEDS ORDERED: SENNOSIDES 8.6 MG TAB PO PRN (11:03)
--- NOTE | 2021-03-05 11:28 | P.HPIM ---
History of Present Illness Patient is pleasant 60-year-old male with known history of lung cancer came in with severe pleuritic chest pain on the left side of the chest which is reproducible felt like patient broke his ribs. Patient chest x-ray did not show any rib fracture patient had a CT and a chest which did not show any reflux is him patient has some atelectasis significant infiltrate in the left hilum but no air bronchogram no significant pneumonia. Patient does have cough which is dry cough no sputum production. Patient did have leukocytosis without any fever patient was started on antibiotics for pneumonia although there is no evidence of pneumonia radiologically on clinically because of his antibiotics are being discontinued at this time. REVIEW OF SYSTEMS: CONSTITUTIONAL: No fever, no malaise, no fatigue. HEENT: No recent visual problems or hearing problems. Denied any sore throat. CARDIOVASCULAR: No orthopnea, PND, no palpitations, no syncope. PULMONARY: No shortness of breath, no hemoptysis. GASTROINTESTINAL: No diarrhea, no nausea, no vomiting, no abdominal pain. NEUROLOGICAL: No headaches, no weakness, no numbness. HEMATOLOGICAL: Denies any bleeding or petechiae. GENITOURINARY: Denies any burning micturition, frequency, or urgency. MUSCULOSKELETAL/RHEUMATOLOGICAL: Denies any joint pain, swelling, or any muscle pain. ENDOCRINE: Denies any polyuria or polydipsia. The rest of the 14-point review of systems is negative. PHYSICAL EXAMINATION: GENERAL: The patient is alert and oriented x3, not in any acute distress. Thin built HEENT: Pupils are round and equally reacting to light. EOMI. No scleral ic terus. No conjunctival pallor. Normocephalic, atraumatic. No pharyngeal erythema. No thyromegaly. CARDIOVASCULAR: S1 and S2 present. No murmurs, rubs, or gallops. PULMONARY: Chest is clear to auscultation, no wheezing or crackles. Reproducible chest pain ABDOMEN: Soft, nontender, nondistended, normoactive bowel sounds. No palpable organomegaly. MUSCULOSKELETAL: No joint swelling or deformity. EXTREMITIES: No cyanosis, clubbing, or pedal edema. NEUROLOGICAL: Gross neurological examination did not reveal any focal deficits. SKIN: No rashes. Assessment and plan Pleuritic, musculoskeletal chest pain: Secondary to probably metastatic disease from lung cancer, ruled out pneumonia and pulmonary embolism. Patient will be started on Seroquel anti-inflammatory that his meloxicam along with fentanyl patch for baseline pain control and [place] for breakthrough pain additionally patient is IV MORPHINE. Patient will be monitored overnight for pain control if pain is well-controlled and above-mentioned regimen patient will be discharged tomorrow. Patient was started on bowel regimen as well. -History of coronary artery disease with prior stents in the past continue his home medications -Hypertension patient is actually hypotensive because of which I'm holding off on lisinopril although metoprolol will be continued -Hyperlipidemia -Hyponatremia probably secondary to swallow lactone which is being held -COPD without any acute exacerbation - -DVT prophylaxis: Lovenox Past Medical History Past Medical History: Chest Pain / Angina, Myocardial Infarction ([place]), Pneumonia Additional Past Medical History / Comment(s): SVT with chest pain/palpitations- chemically converted. Last Myocardial Infarction Date:: 2017 History of Any Multi-Drug Resistant Organisms: MRSA Date of last positivie culture/infection: 12/23/2013 MDRO Source:: Face Past Surgical History: Heart Catheterization With Stent Additional Past Surgical History / Comment(s): I&D of R inframandibular abscess. 3 cardiac stents. Past Anesthesia/Blood Transfusion Reactions: No Reported Reaction Date of Last Stent Placement:: 2017 Past Psychological History: No Psychological Hx Reported Smoking Status: Former smoker Past Alcohol Use History: Rare Additional Past Alcohol Use History / Comment(s): Pt started smoking when he was 13 1ppd and recently quit within the last month or so. Drinks occasionally and eats marijuana gummies. Past Drug Use History: Marijuana - Past Family History Father Family Medical History: No Reported History Additional Family Medical History / Comment(s): Father of "natural causes" at the age of 79yrs. Mother Family Medical History: COPD, Coronary Artery Disease (CAD) Additional Family Medical History / Comment(s): Mother is 76yrs old. She has had several MIs, 6 cardiac stents and a 4 vessel CABG. Medications and Allergies Home Medications Medication Instructions Recorded Confirmed Type Aspirin 81 mg PO DAILY #30 chew 03/05/17 03/04/21 Rx Nitroglycerin Sl Tabs [Nitrostat] 0.4 mg SUBLINGUAL Q5M PRN #25 tab 03/05/17 03/04/21 Rx Spironolactone [Aldactone] 25 mg PO DAILY #30 tab 03/05/17 03/04/21 Rx Albuterol Inhaler [Ventolin Hfa 2 puff INHALATION RT-QID PRN 03/04/21 03/04/21 History Inhaler] Atorvastatin [Lipitor] 80 mg PO HS 03/04/21 03/04/21 History Metoprolol Tartrate [Lopressor] 50 mg PO BID-W/MEALS 03/04/21 03/04/21 History Tiotropium 18 Mcg/Puff [Spiriva] 1 puff INHALATION RT-DAILY 03/04/21 03/04/21 History lisinopriL [Zestril] 5 mg PO HS 03/04/21 03/04/21 History Allergies Allergy/AdvReac Type Severity Reaction Status Date / Time Penicillins Allergy Unknown Verified 03/04/21 23:13 Physical Exam Vitals: Vital Signs Temp Pulse Pulse Resp BP BP Pulse Ox 03/05/21 08:13 84 03/05/21 07:57 84 03/05/21 07:00 98.3 F 81 17 105/66 97 03/05/21 02:42 18 03/05/21 02:30 98.7 F 94 40 H 104/64 97 03/05/21 01:46 95 18 114/68 99 03/05/21 01:10 89 03/05/21 01:00 89 03/04/21 23:55 92 18 129/69 99 03/04/21 22:40 83 18 115/68 98 03/04/21 21:40 88 18 106/62 98 03/04/21 20:08 98.2 F 84 18 109/62 99 Intake and Output 03/04/21 03/05/21 03/05/21 22:59 06:59 14:59 Other: Voiding Method Toilet Urinal # Voids 2 Weight 77.111 kg 77.111 kg Results CBC & Chem 7: 03/05/21 05:50 03/05/21 05:50 Labs: Abnormal Lab Results - Last 24 Hours (Table) 03/04/21 03/04/21 03/04/21 Range/Units 21:40 21:40 21:40 WBC 16.1 H (3.8-10.6) k/uL RBC 4.03 L (4.30-5.90) m/uL Hgb 12.3 L (13.0-17.5) gm/dL Hct 37.9 L (39.0-53.0) % Neutrophils # 13.9 H (1.3-7.7) k/uL Lymphocytes # 0.9 L (1.0-4.8) k/uL Monocytes # (0-1.0) k/uL D-Dimer 0.78 H (<0.60) mg/L FEU Sodium 135 L (137-145) mmol/L Potassium 5.5 H (3.5-5.1) mmol/L Glucose 100 H (74-99) mg/dL 03/05/21 03/05/21 Range/Units 05:50 05:50 WBC 13.1 H (3.8-10.6) k/uL RBC 3.69 L (4.30-5.90) m/uL Hgb 11.1 L (13.0-17.5) gm/dL Hct 34.9 L (39.0-53.0) % Neutrophils # 10.6 H (1.3-7.7) k/uL Lymphocytes # (1.0-4.8) k/uL Monocytes # 1.3 H (0-1.0) k/uL D-Dimer (<0.60) mg/L FEU Sodium 133 L (137-145) mmol/L Potassium (3.5-5.1) mmol/L Glucose 115 H (74-99) mg/dL Thrombosis Risk Factor Assmnt - Choose All That Apply Each Factor Represents 1 point: Abnormal pulmonary function (COPD), Age 41-60 years, Serious lung disease incl. pneumonia (< 1month) Each Risk Factor Represents 2 Points: Malignancy Thrombosis Risk Factor Assessment Total Risk Factor Score: 5 Thrombosis Risk Factor Assessment Level: High Risk
[2021-03-05] MEDS: MELOXICAM 7.5 MG TAB PO SCH (11:58)
[2021-03-05] MEDS: FAMOTIDINE 20 MG TAB PO SCH (12:00)
[2021-03-05] MEDS: METOPROLOL TARTRATE 50 MG TAB PO SCH (18:11)
[2021-03-05] MEDS ORDERED: ATORVASTATIN 80 MG TAB PO SCH (21:00)
[2021-03-05] MEDS ORDERED: AZITHROMYCIN 500 MG in SODIUM CHLORIDE 0.9% 250 ML IVPB SCH (23:00)
[2021-03-06] MEDS: HYDROcodone/APAP 10-325MG 1 EACH TAB PO PRN ×3 (02:35→15:44)
[2021-03-06] MEDS: SODIUM CHLORIDE 0.9% 1,000 ML IV SCH (04:09)
[2021-03-06] MEDS ORDERED: TIOTROPIUM 2.5 MCG INHALER INHALATION SCH (08:00)
[2021-03-06] MEDS: IPRATROPIUM-ALBUTEROL 3 ML NEB INHALATION PRN ×3 (08:34→15:52)
[2021-03-06] MEDS: FAMOTIDINE 20 MG TAB PO SCH (08:54)
[2021-03-06] MEDS: METOPROLOL TARTRATE 50 MG TAB PO SCH (08:54)
[2021-03-06] MEDS: MELOXICAM 7.5 MG TAB PO SCH (08:55)
[2021-03-06] MEDS ORDERED: ASPIRIN 81 MG PO SCH (09:00)
[2021-03-06] MEDS ORDERED: ENOXAPARIN 40 MG/0.4 ML SYRINGE SQ SCH (09:00)
[2021-03-06 10:59] LABS: African American GFR (CKD) >90 (>60 ml/min/1.73 sqM); Anion Gap 7 mmol/L; Blood Urea Nitrogen 12 mg/dL (9-20); Calcium 9.6 mg/dL (8.4-10.2); Carbon Dioxide 28 mmol/L (22-30); Chloride 98 mmol/L (98-107); Glucose 101 mg/dL (74-99); Non-African American GFR(CKD) >90 (>60 ml/min/1.73 sqM); Potassium 4.9 mmol/L (3.5-5.1); Sodium 133 mmol/L (137-145)
[2021-03-06 14:33] LABS: HCT 36.4 % (39.6-50.0); HGB 11.3 g/dL (13.0-17.0); MCH 29.4 pg (27.0-32.0); MCV 94.8 fL (80.0-97.0); Mean Platelet Volume 10.3 fL (9.5-12.2); Platelet Count 375 X 10*3/uL (140-440); RBC 3.84 X 10*6/uL (4.40-5.60); RDW 13.8 % (11.5-14.5); WBC 14.59 X 10*3/uL (4.50-10.00)
[2021-03-06 14:47] VITALS: BP 101/64; RESP 18; TEMP 97.7
--- NOTE | 2021-03-06 14:55 | P.CONS ---
History of Present Illness - Reason for Consult Consult date: 03/06/21 lung Cancer - History of Present Illness Mr Rene is a pleasant white male, with multiple but well-controlled medical problems at baseline. The patient had initially presented to the emergency room in 07/04 with complains of coughing, with expectoration of blood intermittently, for the past 7-10 days. This is most prominent in the morning. Patient's labs and chest x-ray did not show any major abnormality. Patient was recommended to follow-up as an outpatient with his PCP and get a CT scan done. The patient states that at that time he did not have a PCP. He did contact his insurance to get information regarding primary care physician's in his network. He states that the process of finding a PCP took some time and he did put things off, as he was working and otherwise felt well. The patient ultimately had a CT scan of the chest done on 02/02/21 after reestablishing with a PCP. This showed a 8.6 x 6.8 cm soft tissue mass encasing the left hilum, contiguous with subcarinal adenopathy. This is causing mild narrowing of the left mainstem bronchus and upper lobe branches. There was also a spiculated right perihilar mass measuring 4.1 x 2.4 cm with some central cavitation. There is a 6 cm nodule in the right midlung, and another 3 mm nodule in the right base, 6 mm nodular density in the right upper lobe. Paratracheal and subcarinal adenopathy measured 2.4 cm. The patient was referred to pulmonary medicine, and had bronchoscopy on 02/09/21. Right and left upper lobe. Bronchial biopsies showed invasive moderately differentiated squamous cell carcinoma. Patient was therefore referred here for further evaluation and recommendations. He denied any prior history of malignancy. He states that he has been smoking at least a pack a day since his early teens. She has lost about 25 pounds in weight since middle 2020. He reports some increase in shortness of breath on exertion since about mid 01/04. Hemoptysis has been very minor and infrequent while his cough has been fairly stable. Seen for first time in office with Dr. Hoyos on 02/20/21: The patient is being seen for a new diagnosis of squamous cell lung cancer. He does have multiple medical problems at baseline, which are reasonably well controlled. His performance status is adequate, though it has diminished especially over the past 2 months, due to some increase in dyspnea on exertion. - The patient's pathology, imaging, and implications were discussed in detail, along with management options per guidelines. - It was discussed that based on imaging showing bilateral lesions, with the right-sided mass appearing to be distinct from the left upper lobe mass which is contiguous with mediastinal adenopathy, as well as positive biopsies bilaterally, stage for malignancy appears to be most likely. We discussed that stage IV malignancy would not be considered curable, and the objective of treatment would be prolongation of life and palliation of symptoms. It was stated clearly that locally advanced or metastatic lung cancers are not amenable to surgery. - The patient will need completion of staging, with a PET scan, as well as MRI of the brain. Given high probability of stage IV cancer, we will check guardant 360 on his peripheral blood, and also order PD1 testing on his biopsy. Based on the staging studies, and biomarkers, he will then be started on appropriate systemic treatment. We also discussed that if there is evidence of brain metastasis, then he would have to be usually treated with radiation first. - Check baseline labs. - Physician notes, x-ray reports, CT scan reports and pathology reports reviewed and summarized above - About 45 minutes spent, greater than 50% in counseling and coordination of care Review of Systems All systems: negative Constitutional: Reports as per HPI Past Medical History Past Medical History: Chest Pain / Angina, Myocardial Infarction ([place]), Pneumonia Additional Past Medical History / Comment(s): SVT with chest pain/palpitations- chemically converted. 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 3 cardiac stents. Past Anesthesia/Blood Transfusion Reactions: No Reported Reaction Date of Last Stent Placement:: 2017 Past Psychological History: No Psychological Hx Reported Smoking Status: Former smoker Past Alcohol Use History: Rare Additional Past Alcohol Use History / Comment(s): Pt started smoking when he was 13 1ppd and recently quit within the last month or so. Drinks occasionally and eats marijuana gummies. Past Drug Use History: Marijuana - Past Family History Father Family Medical History: No Reported History Additional Family Medical History / Comment(s): Father of "natural causes" at the age of 79yrs. Mother Family Medical History: COPD, Coronary Artery Disease (CAD) Additional Family Medical History / Comment(s): Mother is 76yrs old. She has had several MIs, 6 cardiac stents and a 4 vessel CABG. Medications and Allergies Home Medications Medication Instructions Recorded Confirmed Type Aspirin 81 mg PO DAILY #30 chew 03/05/17 03/04/21 Rx Nitroglycerin Sl Tabs [Nitrostat] 0.4 mg SUBLINGUAL Q5M PRN #25 tab 03/05/17 03/04/21 Rx Spironolactone [Aldactone] 25 mg PO DAILY #30 tab 03/05/17 03/04/21 Rx Albuterol Inhaler [Ventolin Hfa 2 puff INHALATION RT-QID PRN 03/04/21 03/04/21 History Inhaler] Atorvastatin [Lipitor] 80 mg PO HS 03/04/21 03/04/21 History Metoprolol Tartrate [Lopressor] 50 mg PO BID-W/MEALS 03/04/21 03/04/21 History Tiotropium 18 Mcg/Puff [Spiriva] 1 puff INHALATION RT-DAILY 03/04/21 03/04/21 History lisinopriL [Zestril] 5 mg PO HS 03/04/21 03/04/21 History Allergies Allergy/AdvReac Type Severity Reaction Status Date / Time Penicillins Allergy Unknown Verified 03/04/21 23:13 Physical Exam Vitals: Vital Signs Temp Pulse Pulse Resp BP BP Pulse Ox 03/06/21 14:00 97.7 F 79 18 101/64 98 03/06/21 12:01 86 03/06/21 11:53 84 03/06/21 08:42 82 03/06/21 08:34 80 03/06/21 07:59 98.3 F 75 16 118/71 95 03/06/21 02:28 98.4 F 93 16 134/78 97 03/05/21 19:19 98.5 F 82 16 112/65 98 03/05/21 19:17 81 17 03/05/21 19:10 84 03/05/21 18:59 80 03/05/21 16:21 80 03/05/21 16:07 80 03/05/21 14:57 98.0 F 81 17 109/64 97 Intake and Output 03/05/21 03/06/21 03/06/21 22:59 06:59 14:59 Intake Total 118 709 Balance 118 709 Intake: Oral 118 709 Other: Voiding Method Toilet Urinal # Voids 2 2 - Constitutional General appearance: cooperative, no acute distress - EENT Eyes: EOMI ENT: NA/AT, normal oropharynx - Respiratory Respiratory: bilateral: rhonchi - Cardiovascular Rhythm: regularly irregular - Gastrointestinal General gastrointestinal: soft - Integumentary Integumentary: pale - Neurologic Neurologic: CNII-XII intact - Musculoskeletal Musculoskeletal: gait normal Results CBC & Chem 7: 03/06/21 10:16 03/06/21 10:16 Labs: Abnormal Lab Results - Last 24 Hours (Table) 03/06/21 03/06/21 Range/Units 10:16 10:16 WBC 14.59 H (4.50-10.00) X 10*3/uL RBC 3.84 L (4.40-5.60) X 10*6/uL Hgb 11.3 L (13.0-17.0) g/dL Hct 36.4 L (39.6-50.0) % MCHC 31.0 L (32.0-37.0) g/dL Sodium 133 L (137-145) mmol/L Glucose 101 H (74-99) mg/dL Chest x-ray: report reviewed CT scan - chest: report reviewed Assessment and Plan (1) Leukocytosis Current Visit: Yes Status: Acute Code(s): D72.829 - ELEVATED WHITE BLOOD CELL COUNT, UNSPECIFIED SNOMED Code(s): 147004086 (2) Chest pain Current Visit: No Status: Acute Code(s): R07.9 - CHEST PAIN, UNSPECIFIED SNOMED Code(s): 84250776 (3) Squamous cell lung cancer Narrative/Plan: - PET scan for initial staging is scheduled outpatient on 03/13/21 Current Visit: Yes Status: Acute Code(s): C34.90 - MALIGNANT NEOPLASM OF UNSP PART OF UNSP BRONCHUS OR LUNG SNOMED Code(s): 816135721 Plan: CTA chest negative He has been admitted for likely URI/Pneumonia COVID negative Continue supportive care and follow-up after PET as scheduled Physician attest: I have completed the ful history and physical and agree with above dictation, dictated as a scribe.
[2021-03-06 15:43] LABS: Basophils # (A) 0.04 X 10*3/uL (0.00-0.10); Basophils % (A) 0.3 %; Eosinophils # (A) 0.03 X 10*3/uL (0.04-0.35); Eosinophils % (A) 0.2 %; Lymphocytes # (A) 0.86 X 10*3/uL (0.90-5.00); Lymphocytes % (A) 5.9 %; Monocytes # (A) 1.53 X 10*3/uL (0.20-1.00); Monocytes % (A) 10.5 %; Neutrophils # (A) 12.06 X 10*3/uL (1.80-7.70); Neutrophils % (A) 82.6 %
[2021-03-06 16:03] VITALS: PULSE 84
--- NOTE | 2021-03-06 16:06 | P.DS ---
Providers Date of admission: 03/04/21 23:48 Attending physician: Christina Woody Consults: 03/06/21 12:43 Consult Physician Routine Consulting Provider: Juan Carlos Hoyos Consult Reason/Comments: Lung cancer Do you want consulting provider notified?: Yes Primary care physician: Chad Liu Hospital Course: Final Diagnosis -Pleuritic, musculoskeletal chest pain: Secondary to probably metastatic disease from lung cancer, ruled out pneumonia and pulmonary embolism. -Squamos cell lung cancer, new diagnosis, PET scan on 03/13/2021 for staging -History of coronary artery disease with prior stents in the past -Hypertension patient is actually hypotensive, lisinopril held in the hospital setting -Hyperlipidemia -Hyponatremia probably secondary to spironolactone which is also held in the hospital setting, possible component of SIADH -COPD without any acute exacerbation -Leukocytosis probably secondary to pain Discharge Disposition Patient is stable for discharge on pain and bowel regimen to follow up with PCP and oncology as recommended previous. He will have a PET scan complete on 03/13/2021 Hospital Course This is a 60-year-old male presents to the hospital with complaints of pleuritic chest pain to the left lower lung seems more musculoskeletal nature. It is worse with deep inspiration and expiration. He did have a computed tomography scan of the chest on February 02 after reestablishing with a PCP that showed a basic spray 6.8 Center soft tissue mass encasing the left hilum contiguous of subcarinal adenopathy. Additional findings available from rheumatology report. He has lost about 25 pounds since the middle 2020. He followed -up with Dr. Hoyos in the office in early February and has a new diagnosis of squamous cell lung cancer. He was a current smoker. Patient needs PET scanning and MRI brain for staging and will follow-up with oncology for treatment plan. We did start patient on a pain medication regimen inpatient as well as a bowel regimen which she can continue on discharge and follow-up with his PCP or oncology for additional pain management. Chest CTA completed this admission shows no evidence for PE with masslike densities consistent with tumor, there is also a new mild lingular infiltrate and patchy left lower lobe infiltrate is not significantly different from old exam. Labs on admission show a white count of 16.1, hemoglobin 12.3, neutrophils 13.9, d-dimer 0.78, sodium 135, potassium 5.5, glucose 100, Covid PCR not detected. Patient was given IV azithromycin and IV Rocephin via IV for possible pneumonia although after reviewing imaging not likely. He was given updrafts and started on Fentanyl patch, Eloy 10, Mobic and IV morphine. We did consult oncology who reviewed current plan of care with patient regarding cancer workup. He is scheduled for an outpatient PET scan on July or . 03/06/2021 Will discharge patient on pain medication management as well as bowel regimen. He was able to ambulate in the halls. Vital signs today are stable afebrile, heart rate 85 sinus rhythm, blood pressure on the softer side at 101/64, 98% room air, will continue to be his lisinopril on hold. White blood cell count improved to 14.59, hemoglobin stable at 11.3, neutrophils 12.06, lymphocytes 0.86, monocytes 1.53, sodium 133, potassium improved to 4.9, glucose 101. Lungs are clear, S1-S2 auscultated, abdomen soft nontender, patient reports fair diet, bowels are moving, no urinary frequency urgency or dysuria. We will discharge home. Please see medication reconciliation for list of current medications. Thank you for allowing us to participate in the care of this patient. Patient Condition at Discharge: Fair Plan - Discharge Summary New Discharge Prescriptions: No Action Aspirin 81 mg PO DAILY #30 chew Nitroglycerin Sl Tabs [Nitrostat] 0.4 mg SUBLINGUAL Q5M PRN #25 tab PRN Reason: Chest Pain Spironolactone [Aldactone] 25 mg PO DAILY #30 tab Albuterol Inhaler [Ventolin Hfa Inhaler] 2 puff INHALATION RT-QID PRN PRN Reason: Shortness Of Breath lisinopriL [Zestril] 5 mg PO HS Tiotropium 18 Mcg/Puff [Spiriva] 1 puff INHALATION RT-DAILY Atorvastatin [Lipitor] 80 mg PO HS Metoprolol Tartrate [Lopressor] 50 mg PO BID-W/MEALS Discharge Medication List Aspirin 81 mg PO DAILY #30 chew 03/05/17 [Rx] Nitroglycerin Sl Tabs [Nitrostat] 0.4 mg SUBLINGUAL Q5M PRN #25 tab 03/05/17 [Rx] Spironolactone [Aldactone] 25 mg PO DAILY #30 tab 03/05/17 [Rx] Albuterol Inhaler [Ventolin Hfa Inhaler] 2 puff INHALATION RT-QID PRN 03/04/21 [History] Atorvastatin [Lipitor] 80 mg PO HS 03/04/21 [History] Metoprolol Tartrate [Lopressor] 50 mg PO BID-W/MEALS 03/04/21 [History] Tiotropium 18 Mcg/Puff [Spiriva] 1 puff INHALATION RT-DAILY 03/04/21 [History] lisinopriL [Zestril] 5 mg PO HS 03/04/21 [History] Follow up Appointment(s)/Referral(s): Juan Carlos Hoyos MD [STAFF PHYSICIAN] - 1 Week Noe Bonilla MD [Primary Care Provider] - 1-2 days Estrada Laughlin MD [STAFF PHYSICIAN] - 1 Week Activity/Diet/Wound Care/Special Instructions: Patient has PET scan scheduled next week, was supposed to be today
[2021-03-06] MEDS ORDERED: AZITHROMYCIN 500 MG TAB PO SCH (21:00)
== END 2021-03-06 17:05 | disposition home or self-care (01) | DRG 948 ==
LOC: EC 20:03 → OBSVTOIN 23:48 → 6NMEDSUR 23:48
PROVIDERS: ADMIT Hospitalist; ATTEND Hospitalist
DX: G89.3 Neoplasm related pain (acute) (chronic) (principal); C34.02 Malignant neoplasm of left main bronchus; C34.01 Malignant neoplasm of right main bronchus; C79.9 Secondary malignant neoplasm of unspecified site; E22.2 Syndrome of inappropriate secretion of antidiuretic hormone; J98.11 Atelectasis; R04.2 Hemoptysis; T50.0X5A Adverse effect of mineralocorticoids and their antagonists, initial encounter; J44.9 Chronic obstructive pulmonary disease, unspecified; D72.828 Other elevated white blood cell count; Z87.891 Personal history of nicotine dependence; I25.10 Atherosclerotic heart disease of native coronary artery without angina pectoris; Z95.1 Presence of aortocoronary bypass graft; Z95.5 Presence of coronary angioplasty implant and graft; E78.5 Hyperlipidemia, unspecified; D72.829 Elevated white blood cell count, unspecified; E87.5 Hyperkalemia; I10 Essential (primary) hypertension; I25.2 Old myocardial infarction; Z20.822 Contact with and (suspected) exposure to COVID-19; Z79.82 Long term (current) use of aspirin; Z79.899 Other long term (current) drug therapy; Z82.49 Family history of ischemic heart disease and other diseases of the circulatory system; Z82.5 Family history of asthma and other chronic lower respiratory diseases; Z88.0 Allergy status to penicillin
CPT/HCPCS: 36415; 71045; 71275; 80048; 83735; 84100; 85025; 85379; 85610; 85730; 87635; 93005; 94640; 96374; 99291

== ENCOUNTER → 2021-03-10 | Outpatient (CLI) | payer OTHER ==
[2021-03-10 23:58] LABS: Basophils # (A) 0.06 X 10*3/uL (0.00-0.10); Basophils % (A) 0.6 %; Eosinophils # (A) 0.09 X 10*3/uL (0.04-0.35); HCT 36.9 % (39.6-50.0); HGB 11.2 g/dL (13.0-17.0); Lymphocytes # (A) 1.75 X 10*3/uL (0.90-5.00); Lymphocytes % (A) 18.9 %; MCH 28.8 pg (27.0-32.0); MCHC 30.4 g/dL (32.0-37.0); MCV 94.9 fL (80.0-97.0); Mean Platelet Volume 9.6 fL (9.5-12.2); Monocytes # (A) 0.97 X 10*3/uL (0.20-1.00); Monocytes % (A) 10.5 %; Neutrophils # (A) 6.37 X 10*3/uL (1.80-7.70); Neutrophils % (A) 68.7 %; Platelet Count 496 X 10*3/uL (140-440); RBC 3.89 X 10*6/uL (4.40-5.60); RDW 13.1 % (11.5-14.5); WBC 9.27 X 10*3/uL (4.50-10.00)
[2021-03-11 01:33] LABS: African American GFR (CKD) 113.1 (60.0-200.0); Anion Gap 11.2 mmol/L (10.00-18.00); BUN/Creat Ratio 19.78 Ratio (12.00-20.00); Blood Urea Nitrogen 15.9 mg/dL (9.0-27.0); Calcium 9.7 mg/dL (8.7-10.3); Carbon Dioxide 24.3 mmol/L (20.0-27.5); Non-African American GFR(CKD) 97.6 (60.0-200.0); Potassium 4.6 mmol/L (3.5-5.5)
== END | disposition home or self-care (01) ==
LOC: LABWHC1 16:16
PROVIDERS: ATTEND Nurse Practitioner Family
DX: E87.5 Hyperkalemia (principal); E87.1 Hypo-osmolality and hyponatremia
CPT/HCPCS: 36415; 80048; 85025

== ENCOUNTER → 2021-03-13 | Outpatient (CLI) | payer OTHER ==
--- NOTE | 2021-03-16 07:23 | PE ---
EXAMINATION TYPE: PET CT fusion skull to thigh DATE OF EXAM: 03/13/2021 COMPARISON: CTA chest March 04, 2021 HISTORY: Lung cancer newly diagnosed. TECHNIQUE: Following the intravenous administration of 8.1 mCi of F-18 FDG, whole body images are pe rformed from the skull base to the midthigh. Images are reviewed on the computer in the coronal, axi al, and sagittal planes. Reconstructed rotating images are created on independent workstation and re viewed on the computer. A localization and attenuation correction CT is performed in conjunction wi th the PET scan. Blood glucose level equals 88. SCAN: Initial Scan FINDINGS: SKULL BASE AND NECK: There are 2 abnormal right supraclavicular hypermetabolic narrowing 1.0 cm lymp h nodes axial image 64, max SUV is 5.19 at this level. CHEST, MEDIASTINUM, AND HILAR REGION: Background moderate underlying emphysematous change redemonstra darrick. Persistent spiculated 4.2 x 2.8 cm right suprahilar mass or neoplasm axial image 88, max SUV is 9.96. Larger left hilar mass or neoplasm invading the mediastinum just below this measuring approximately 6 .4 x 5.6 cm axial image 94, max SUV is 10.29. Abnormal 3.1 x 1.8 cm subcarinal hypermetabolic lymph node axial image 97, max SUV is 6.24. Abnormal right hilar adenopathy blends with adjacent neoplasm. Abnormal right tracheobronchial 2.2 x 2.0 cm ly mph node axial image 86, max SUV is 10.29. Abnormal near 1.0 cm hypermetabolic lymph node superior to this anterior to the trachea at level of aortic arch axial image 80, Max SUV is 3.58. There is abnor mal 1.0 cm lymph node adjacent to esophagus superior to this axial image 70, Max SUV is 4.6. ABDOMEN AND PELVIS: No adrenal masses. Normal excretion. Mild nonspecific bowel uptake right lower qu adrant. No areas of abnormal hypermetabolic uptake. OSSEOUS STRUCTURES: No areas of suspicious hypermetabolic uptake. OTHER CT: Moderate 2 severe calcified plaque left carotid bulb. Severe three-vessel coronary artery calcification. IMPRESSION: Bilateral central hilar neoplastic involvement with abnormal thoracic adenopathy extendin g into the anterior superior mediastinum. Abnormal right supraclavicular adenopathy noted. No metasta tic disease below diaphragm seen currently.
== END | disposition home or self-care (01) ==
LOC: RADPETMAIN 10:55
PROVIDERS: ATTEND Internal Medicine Hematology & Oncology
DX: C34.01 Malignant neoplasm of right main bronchus (principal); C34.02 Malignant neoplasm of left main bronchus; C77.8 Secondary and unspecified malignant neoplasm of lymph nodes of multiple regions
CPT/HCPCS: 78815; A9552

== ENCOUNTER → 2021-06-04 | Outpatient (CLI) | payer OTHER ==
[2021-06-04 10:08] LABS: African American GFR (CKD) >90 (>60 ml/min/1.73 sqM); Blood Urea Nitrogen 15 mg/dL (9-20); Non-African American GFR(CKD) >90 (>60 ml/min/1.73 sqM)
--- NOTE | 2021-06-04 14:37 | CT ---
EXAMINATION TYPE: CT ChestAbdPelvis w con DATE OF EXAM: 06/04/2021 COMPARISON: PET scan dated 03/13/2021, CT dated 03/04/[address] dated 06/26/2012 HISTORY: Lung ca, observe for mets CT DLP: 1176 mGycm Automated exposure control for dose reduction was used. CONTRAST: CT scan of the chest, abdomen and pelvis is performed with Oral Contrast and with IV Contrast, patien t injected with 100 mL of Isovue 300. FINDINGS: LUNGS: Right suprahilar mass with a spiculated margin measuring 35 x 39 mm compared to 34 x 37 mm previously . Newly seen infiltration with nodularity along the posterior aspect of the right upper lobe which co uld represent postradiation changes however metastatic disease cannot be excluded. Apparently smaller left posterior hilar mass measuring 4.3 x 4.5 cm compared to 5 x 6.2 cm previously. Newly seen wedge -shaped irregular density at the posterolateral aspect of the left upper lobe measuring up to 12 mm, possibly metastatic. Faint infiltration into the left lower lobe mainly the superior segment which co uld be related to postradiation changes however metastatic disease cannot be excluded. COPD changes m ainly involving the upper lobes. No other definite new lung lesion identified. Patent trachea and hola n bronchi. MEDIASTINUM: Persistent bilateral perihilar and pericarinal soft tissue thickening, apparently improv ed in the interim. For example, a subcarinal component of the soft tissue thickening measures 16mm co mpared to 27 mm previously. Smaller aortopulmonary lymph nodes measuring up to 9 mm compared to 2.2 c m previously. No progressive lymphadenopathy in the chest. Unchanged heart, coronary and arterial ath erosclerotic calcifications. No pleural or pericardial effusion. OTHER: Stable chronic malaligned healed fracture of the sternum. No aggressive bone lesion. LIVER/GB: No significant abnormality is appreciated. PANCREAS: No significant abnormality is seen. SPLEEN: No significant abnormality is seen. ADRENALS: No significant abnormality is seen. KIDNEYS: No significant abnormality is seen. BOWEL: No significant abnormality is seen. REPRODUCTIVE ORGANS: No gross abnormality seen. LYMPH NODES: No greater than 1 cm abdominal or pelvic lymph nodes are appreciated. OSSEOUS STRUCTURES: Degenerative changes of the lumbar spine. No aggressive bone lesion. OTHER: Scattered arterial atherosclerotic calcifications. No sizable ascites. IMPRESSION: 1. Interval regression of the previously seen bilateral perihilar and subcarinal soft tissue thickeni ng as well as the aortopulmonary lymph nodes as described above. 2. Newly seen area of infiltration and nodularity along the posterior aspect of the right upper lobe as well as subtle infiltration in the left lower lobe superior segment which could be related to post radiation changes however metastatic disease cannot be excluded. There is also newly seen pleural-bas ed nodule measuring 12 mm in the posterolateral aspect the left upper lobe, possibly metastatic, atte ntion on follow-up. Alternatively, PET scan assessment can be considered. 3. Slightly larger right suprahilar mass with a smaller left posterior hilar mass. 4. No progressive lymph nodes in the chest. No evidence of metastatic disease in the abdomen or the p maryjo. Other interval changes and incidental findings as described above.
== END | disposition home or self-care (01) ==
LOC: RADCTMAIN 09:21
PROVIDERS: ATTEND Internal Medicine Hematology & Oncology
DX: C34.12 Malignant neoplasm of upper lobe, left bronchus or lung (principal)
CPT/HCPCS: 82565; 84520; 71260; 74177; 36415; Q9967

== ENCOUNTER → 2021-08-31 | Outpatient (CLI) | payer OTHER ==
[2021-08-31 12:10] LABS: African American GFR (CKD) >90 (>60 ml/min/1.73 sqM); Blood Urea Nitrogen 18 mg/dL (9-20); Non-African American GFR(CKD) 80 (>60 ml/min/1.73 sqM)
--- NOTE | 2021-08-31 15:53 | CT ---
EXAMINATION TYPE: CT ChestAbdPelvis w con CT DLP: 563.7 mGycm, Automated exposure control for dose reduction was used. DATE OF EXAM: 08/31/2021 1:25 PM COMPARISON: CT chest abdomen pelvis 06/04/2021 CT PET 03/05/2021 CLINICAL INDICATION:Male, 60 years old with history of C34.12;, f/u lung ca Technique: Multiple axial images of the chest, abdomen, and pelvis were obtained. Two-dimensional cor onal and sagittal reconstructions were obtained. Contrast used:70cc mL of Isovue 300 with IV Contrast, Oral contrast used: with Oral Contrast Findings: CHEST: LUNGS/ PLEURA: Redemonstration of right upper lobe spiculated mass now measuring 2.8 x 2.0 x 1.8 cm, previously 2.9 x 2.1 x 2.1 cm when measuring similarly. There is a decrease in prior right upper lobe consolidation changes seen more peripherally from this mass on today's exam. A left upper lobe nodul e has decreased in size now measuring 5 mm, series 4 image 17 and previously was 12 mm. There remains superior segment of left lower lobe suspected postradiation changes as well as posttreatment changes changes suspected in the right upper lobe. AIRWAY: There is narrowing of the right upper lobe bronchus secondary to soft tissue which appears si milar to prior. HEART: Size within normal limits. Moderate to severe coronary atherosclerosis is present. MEDIASTINUM: There remains ill-defined soft tissue within the mediastinum which was previously FDG av id. The right upper paratracheal lymph node is no longer visualized. There is remains soft tissue den sity within the right low paratracheal region measuring up to 17 mm in short axis, which is not signi ficantly changed from prior. Ill-defined soft tissue along the central airways is redemonstrated incl uding the subcarinal region and pulmonary hilum' s. The left pulmonary hilum soft tissue appears larg er now measuring 3.0 x 2.2 cm, previously 2.2 x 2.2 cm. Subcarinal lymph node seen on prior has decre ased in size now measuring 11 mm in short axis, previously 15 mm. VASCULATURE: No aortic aneurysm. MUSCULOSKELETAL: No acute osseous abnormalities. Remote injury to the sternum is present. SOFT TISSUES/LYMPH NODES: Unremarkable. LOWER NECK: Supraclavicular lymph nodes on the right which were FDG avid on 03/13/2021 are not definit ively visualized and may be out of the [id number] or resolved. ABDOMEN: ABDOMEN LIVER: Unremarkable GALLBLADDER AND BILE DUCTS: Unremarkable. PANCREAS: Unremarkable. SPLEEN: Unremarkable. ADRENAL GLANDS: Unremarkable. KIDNEYS AND URETERS: No evidence of hydronephrosis or renal calculus. The ureters are unremarkable. PELVIS BLADDER: Unremarkable REPRODUCTIVE: Unremarkable. ABDOMEN & PELVIS STOMACH AND BOWEL: No evidence of bowel obstruction. PERITONEUM: No evidence of pneumoperitoneum or free fluid. VASCULATURE: No evidence of aortic aneurysm. MUSCULOSKELETAL: No acute osseous abnormalities LYMPH NODES: No gross evidence for lymphadenopathy. SOFT TISSUE/ABDOMINAL WALL: Unremarkable IMPRESSION: 1. Somewhat mixed response to therapy with persistent right upper lobe pulmonary mass which may be f ractionally smaller on today's exam. There remains ill-defined soft tissue throughout the mediastinum which was FDG avid on prior PET/CT. A majority of the areas appear stable and/or decreased in size w ithin the mediastinum however the left pulmonary hilum appears to have increased soft tissue compared to prior. Attention on follow-up PET/CT to compare metabolic activity. 2. Decrease in suspected superimposed airspace disease on prior examination within the right upper l obe more peripheral to the spiculated mass. Superimposed postradiation changes are suspected in the l ungs. 3. No evidence for metastatic disease within the abdomen or pelvis.
== END | disposition home or self-care (01) ==
LOC: RADCTMAIN 11:31
PROVIDERS: ATTEND Internal Medicine Hematology & Oncology
DX: C34.12 Malignant neoplasm of upper lobe, left bronchus or lung (principal)
CPT/HCPCS: 82565; 84520; 71260; 74177; 36415; Q9967

== ENCOUNTER → 2021-11-18 | Outpatient (CLI) | payer OTHER ==
[2021-11-18 16:06] LABS: African American GFR (CKD) >90 (>60 ml/min/1.73 sqM); Blood Urea Nitrogen 13 mg/dL (9-20); Non-African American GFR(CKD) >90 (>60 ml/min/1.73 sqM)
--- NOTE | 2021-11-18 20:54 | CT ---
EXAMINATION TYPE: CT ChestAbdPelvis w con CT DLP: 1450 mGycm, Automated exposure control for dose reduction was used. 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 Two-dimensional cor onal and sagittal reconstructions were obtained. Contrast used:100ml mL of Isovue 300 with IV Contrast, Oral contrast used: with Oral Contrast Findings: CHEST: LUNGS/ PLEURA: * Interval enlargement of the right upper lobe spiculated mass now measuring 2.8 x 2.7 x 2.6 cm, pre viously 2.7 x 2.0 x 1.7 cm when measuring similarly. There is a slight increase in prior right upper lobe consolidation changes seen more peripherally from this mass on today's exam. * Stable left upper lobe nodule measuring 5 mm, series 3 image 28. There remains suspected posttreatment of the left upper lobe and right lung. Right major fissure intrafissural lymph node. Series 3 image 38 AIRWAY: There is narrowing of the right upper lobe bronchus secondary to soft tissue which appears si milar to prior. HEART: Size within normal limits. Moderate to severe coronary atherosclerosis is present. MEDIASTINUM: There remains ill-defined soft tissue within the mediastinum which was previously FDG avid. * Stable right low paratracheal region measuring up to 17 mm in short axis, which is not significant ly changed from prior. * Ill-defined soft tissue along the central airways is redemonstrated including the subcarinal regio n and pulmonary hilum' s. * The left pulmonary hilum soft tissue may be marginally larger now measuring 3.7 x 2.9 cm, previous ly 3.5 x 2.8 cm. * Subcarinal lymph node is stable measuring 10 mm. VASCULATURE: No aortic aneurysm. MUSCULOSKELETAL: No acute osseous abnormalities. Remote injury to the sternum is present. SOFT TISSUES/LYMPH NODES: Unremarkable. LOWER NECK: Supraclavicular lymph nodes on the right which were FDG avid on 03/13/2021 are not definit ively visualized and may be out of the [id number] or resolved. ABDOMEN: ABDOMEN LIVER: Focal fatty infiltration adjacent to the falciform ligament in segment IVb GALLBLADDER AND BILE DUCTS: Unremarkable. PANCREAS: Unremarkable. SPLEEN: Unremarkable. ADRENAL GLANDS: Unremarkable. KIDNEYS AND URETERS: No evidence of hydronephrosis or renal calculus. The ureters are unremarkable. PELVIS BLADDER: Unremarkable REPRODUCTIVE: Unremarkable. ABDOMEN & PELVIS STOMACH AND BOWEL: No evidence of bowel obstruction. PERITONEUM: No evidence of pneumoperitoneum or free fluid. VASCULATURE: No evidence of aortic aneurysm. MUSCULOSKELETAL: No acute osseous abnormalities, mild multilevel disc degeneration changes throughout the spine. LYMPH NODES: No gross evidence for lymphadenopathy. SOFT TISSUE/ABDOMINAL WALL: Unremarkable IMPRESSION: 1. Right upper lobe pulmonary nodule has increased in size compared to prior. Additional lymph nodes in the mediastinum and left pulmonary hilum grossly similar. The left pulmonary hilum may be fractio rupali larger. Correlation with more recent PET/CTs is recommended for metabolic activity. 2. Slight increase in in suspected superimposed airspace disease and/or atelectasis in the right upp er lobe more peripheral to the spiculated mass. 3. No evidence for metastatic disease within the abdomen or pelvis.
== END | disposition home or self-care (01) ==
LOC: RADCTMAIN 15:27
PROVIDERS: ATTEND Internal Medicine Hematology & Oncology
DX: C34.12 Malignant neoplasm of upper lobe, left bronchus or lung (principal); J44.9 Chronic obstructive pulmonary disease, unspecified; I10 Essential (primary) hypertension
CPT/HCPCS: 82565; 84520; 71260; 74177; 36415; Q9967

== ENCOUNTER → 2022-01-29 | Outpatient (CLI) | payer OTHER ==
[2022-01-29 15:16] LABS: African American GFR (CKD) >90 (>60 ml/min/1.73 sqM); Blood Urea Nitrogen 15 mg/dL (9-20); Non-African American GFR(CKD) >90 (>60 ml/min/1.73 sqM)
--- NOTE | 2022-01-31 09:33 | CT ---
EXAMINATION TYPE: CT ChestAbdPelvis w con CT DLP: 823.20 mGycm, Automated exposure control for dose reduction was used. DATE OF EXAM: 01/29/2022 4:31 PM COMPARISON: 06/23/2021 CLINICAL INDICATION:Male, 61 years old with history of C34.12 LUNG CANCER, obs for mets. hx lung ca. Technique: Multiple axial images of the chest, abdomen, and pelvis were obtained. Two-dimensional cor onal and sagittal reconstructions were obtained. Contrast used:70 mL of Isovue 300 with IV Contrast, Oral contrast used: with Oral Contrast Findings: CHEST: LUNGS/ PLEURA: Right upper lobe pulmonary nodule now measuring 3.0 x 3.5, previously 2.5 x 2.6 cm with internal air possibly cavitation on today's exam. The more medial soft tissue lesion measuring up to 2.1 x 1.6 cm similar prior. There is increased in airspace opacities extending to the periphery on today's exam. Left perihilar soft tissue measuring 3.1 x 2.7 cm, previously 2.7 x 2.2 cm. Right-sided intrafissural lymph nodes are unchanged Scattered mild centrilobular emphysema changes throughout the lungs. AIRWAY: Patent and unremarkable. HEART: Size within normal limits. Coronary artery atherosclerosis. MEDIASTINUM: Right low paratracheal lymph node measuring again at 1.7 cm in short axis. VASCULATURE: No aortic aneurysm. No evidence of central pulmonary embolus. MUSCULOSKELETAL: No acute osseous abnormalities. Remote sternal fracture. SOFT TISSUES/LYMPH NODES: Unremarkable. LOWER NECK: Right supraclavicular lymph nodes that was FDG avid on prior PET is not definitively in t he [id number]. ABDOMEN: ABDOMEN LIVER: Unremarkable GALLBLADDER AND BILE DUCTS: Unremarkable. PANCREAS: Unremarkable. SPLEEN: Unremarkable. ADRENAL GLANDS: Unremarkable. KIDNEYS AND URETERS: No evidence of hydronephrosis or renal calculus. The ureters are unremarkable. PELVIS BLADDER: Unremarkable REPRODUCTIVE: Unremarkable. ABDOMEN & PELVIS STOMACH AND BOWEL: No evidence of bowel obstruction. PERITONEUM: No evidence of pneumoperitoneum or free fluid. VASCULATURE: No evidence of aortic aneurysm. Atherosclerosis of the arterial vasculature. MUSCULOSKELETAL: No acute osseous abnormalities. Mild disc degeneration changes are present throughou t the thoracolumbar spine. LYMPH NODES: No gross evidence for lymphadenopathy. SOFT TISSUE/ABDOMINAL WALL: Unremarkable IMPRESSION: * Progressive disease with enlarging right perihilar mass now with cavitation and increase in size o f left perihilar soft tissue which could represent lymph nodes versus. Right low paratracheal lymph n ode remains stable in size. * No abnormal lymphadenopathy within the abdomen or pelvis. * Right upper lobe probably post obstructive atelectasis or airspace disease.
== END | disposition home or self-care (01) ==
LOC: RADCTMAIN 14:32
PROVIDERS: ATTEND Internal Medicine Hematology & Oncology
DX: C34.12 Malignant neoplasm of upper lobe, left bronchus or lung (principal); J44.9 Chronic obstructive pulmonary disease, unspecified; I10 Essential (primary) hypertension; R91.8 Other nonspecific abnormal finding of lung field
CPT/HCPCS: 82565; 84520; 71260; 74177; 36415; Q9967

== ENCOUNTER 2022-05-09 07:29 | Inpatient (IN) | payer OTHER ==
--- NOTE | 2022-05-09 07:59 | ED ---
ENT HPI - General Chief complaint: ENT Stated complaint: Nose Bleed Time Seen by Provider: 05/09/22 07:36 Source: patient, RN notes reviewed, old records reviewed Mode of arrival: ambulatory Limitations: no limitations - History of Present Illness Initial comments: This is a nontoxic-appearing 61-year-old male who presents ambulatory with complaints of a nosebleed for 3 days. States that he has been taking a new chemotherapy drug called carboplatin started last week Tuesday and side effect is abnormal bleeding. Patient states he did stop taking his aspirin four days ago however bleeding continues. Denies any other abnormal bleeding. Patient bates s history of PR with 3 cardiac stents, lung cancer currently on chemotherapy. MD complaint: epistaxis -: days(s) (3) Location: nose Severity scale (1-10): 0 Consistency: intermittent Improves with: pressure Context-Epistaxis: aspirin use, other (new chemo carboplatin) - Related Data Home Medications Medication Instructions Recorded Confirmed Albuterol Inhaler [Ventolin Hfa 2 puff INHALATION RT-QID PRN 03/04/21 03/04/21 Inhaler] Atorvastatin [Lipitor] 80 mg PO HS 03/04/21 03/04/21 Metoprolol Tartrate [Lopressor] 50 mg PO BID-W/MEALS 03/04/21 03/04/21 Tiotropium 18 Mcg/Puff [Spiriva] 1 puff INHALATION RT-DAILY 03/04/21 03/04/21 Previous Rx's Medication Instructions Recorded Aspirin 81 mg PO DAILY #30 chew 03/05/17 Nitroglycerin Sl Tabs [Nitrostat] 0.4 mg SUBLINGUAL Q5M PRN #25 tab 03/05/17 Azithromycin [Zithromax] 500 mg PO HS #4 tab 03/06/21 Famotidine [Pepcid] 20 mg PO DAILY 30 Days #30 tab 03/06/21 HYDROcodone/APAP 10-325MG [[place] 1 each PO Q6HR PRN 7 Days #28 tab 03/06/21 10-325] Meloxicam [Mobic] 15 mg PO DAILY 10 Days #10 tab 03/06/21 Sennosides [Senokot] 8.6 mg PO BID PRN 30 Days #60 tab 03/06/21 fentaNYL 50MCG/HR PATCH [Duragesic 1 patch TRANSDERM Q72H #3 patch 03/06/21 50MCG/HR] Allergies Allergy/AdvReac Type Severity Reaction Status Date / Time Penicillins Allergy Unknown Verified 05/09/22 07:34 Review of Systems ROS Statement: Those systems with pertinent positive or pertinent negative responses have been documented in the HPI. ROS Other: All systems not noted in ROS Statement are negative. Past Medical History Past Medical History: Cancer, Chest Pain / Angina, Myocardial Infarction (PR), Pneumonia Additional Past Medical History / Comment(s): SVT with chest pain/palpitations- chemically converted. Last Myocardial Infarction Date:: 2017 History of Any Multi-Drug Resistant Organisms: MRSA Date of last positivie culture/infection: 12/23/2013 MDRO Source:: Face Past Surgical History: Heart Catheterization With Stent Additional Past Surgical History / Comment(s): I&D of R inframandibular abscess. 3 cardiac stents. Past Anesthesia/Blood Transfusion Reactions: No Reported Reaction Date of Last Stent Placement:: 2017 Past Psychological History: No Psychological Hx Reported Smoking Status: Former smoker Past Alcohol Use History: Rare Past Drug Use History: Marijuana - Past Family History Father Family Medical History: No Reported History Additional Family Medical History / Comment(s): Father of "natural causes" at the age of 79yrs. Mother Family Medical History: COPD, Coronary Artery Disease (CAD) Additional Family Medical History / Comment(s): Mother is 76yrs old. She has had several MIs, 6 cardiac stents and a 4 vessel CABG. General Exam Limitations: no limitations General appearance: alert, in no apparent distress Head exam: Present: atraumatic, normocephalic Eye exam: Present: normal appearance. Absent: scleral icterus, conjunctival injection, periorbital swelling ENT exam: Present: mucous membranes moist, other (minimal bleeding bilateral nares) Expanded Mouth exam: Present: tongue normal, tongue elevation. Absent: drooling, trismus, muffled voice Neck exam: Present: full ROM. Absent: tenderness, meningismus Respiratory exam: Absent: respiratory distress, accessory muscle use Cardiovascular Exam: Present: regular rate GI/Abdominal exam: Present: soft. Absent: distended Neurological exam: Present: alert, oriented X3 Psychiatric exam: Present: normal affect, normal mood Skin exam: Present: warm, dry, normal color. Absent: cyanosis, diaphoretic, petechiae, pallor Course Vital Signs 05/09/22 05/09/22 07:30 08:29 Temperature 98.8 F Pulse Rate 90 72 Respiratory 20 16 Rate Blood Pressure 118/75 103/67 O2 Sat by Pulse 100 98 Oximetry Medical Decision Making - Medical Decision Making Patient states was placed on carboplatin last Tuesday had a second dose this past Tuesday. Side effect of this medication is thrombocytopenia. CT chest performed on 03/31/22 shows an enlarging right upper lung mass measuring 6.7 x 6.0 cm and posterior left perihilar spiculated mass measuring 4.2 x 3.3 cm His epistaxis resolved with manual pressure after 20 minutes. No recurrence of bleeding in the emergency room. Today Hemoglobin 9 and hematocrit is 27.3 respectively. Platelet count is 10, patient will be transfused with platelets. WBC 0.8 due to current chemotherapy. Vital signs are stable. Patient denies chest pain or difficulty in breathing. I spoke with Dr. Dolan with oncology regarding patient. Patient will be admitted for thrombocytopenia with epistaxis, leukocytosis, lung cancer. Case discussed with Dr. Cha Was pt. sent in by a medical professional or institution (, PA, VASCULAR ULTRASOUND TECHNOLOGIST, urgent care, hospital, or group home...) When possible be specific @ -No Did you speak to anyone other than the patient for history (EMS, parent, family, police, friend...)? What history was obtained from this source @ -No Did you review nursing and triage notes (agree or disagree)? Why? @ -I reviewed and agree with nursing and triage notes Were old charts reviewed (outside hosp., previous admission, EMS record, old EKG, old radiological studies, urgent care reports/EKG's, group home records)? Report findings @ -Previous labs and CT results reviewed as above Differential Diagnosis (chest pain, altered mental status, abdominal pain women, abdominal pain men, vaginal bleeding, weakness, fever, dyspnea, syncope, headache, dizziness, GI bleed, back pain, seizure, CVA, palpatations, mental health, musculoskeletal)? @ -Coagulopathy, adverse drug reaction, trauma, URI, hypertension, this is not a new occlusive list EKG interpreted by me (3pts min.). @ -n/a X-rays interpreted by me (1pt min.). @ -None done CT interpreted by me (1pt min.). @ -None done U/S interpreted by me (1pt. min.). @ -None done What testing was considered but not performed or refused? (CT, X-rays, U/S, labs)? Why? @ -None What meds were considered but not given or refused? Why? @ -TXA was considered however he epistaxis resolved with manual pressure Did you discuss the management of the patient with other professionals (professionals i.e. DrRahel, PA, VASCULAR ULTRASOUND TECHNOLOGIST, lab, RT, psych nurse, social services designee, criminal lawyer, teacher, air intelligence officer, case planner)? Give summary @ -No Was smoking cessation discussed for >3mins.? @ -No Was critical care preformed (if so, how long)? @ -No Were there social determinants of health that impacted care today? How? (Luis M elessness, low income, unemployed, alcoholism, drug addiction, transportation, low edu. Level, literacy, decrease access to med. care, longterm, rehab)? @ -No Was there de-escalation of care discussed even if they declined (Discuss DNR or withdrawal of care, Hospice)? DNR status @ -No What co-morbidities impacted this encounter? (DM, HTN, Smoking, COPD, CAD, Cancer, CVA, ARF, Chemo, Hep., AIDS, mental health diagnosis, sleep apnea, morbid obesity)? @ -Lung cancer, coronary artery disease, leukocytosis Was patient admitted / discharged? Hospital course, mention meds given and route, prescriptions, significant lab abnormalities, going to OR and other pertinent info. @ -Admitted Undiagnosed new problem with uncertain prognosis? @ -No Drug Therapy requiring intensive monitoring for toxicity (Heparin, Nitro, Insulin, Cardizem)? @ -No Were any procedures done? @ -No Diagnosis/symptom? @ -Leukocytosis, thrombocytopenia, lung cancer, epistaxis Acute, or Chronic, or Acute on Chronic? @ -Acute Uncomplicated (without systemic symptoms) or Complicated (systemic symptoms)? @ -Complicated Side effects of treatment? @ -No Exacerbation, Progression, or Severe Exacerbation? @ -No Poses a threat to life or bodily function? How? (Chest pain, [place], PR, pneumonia, PE, COPD, DKA, ARF, appy, cholecystitis, CVA, Diverticulitis, Homicidal, Suicidal, threat to staff... and all critical care pts) @ -Yes thrombocytosis which could result in spontaneous bleeding and - Lab Data Result diagrams: 05/09/22 08:15 05/09/22 08:15 Lab Results 05/09/22 05/09/22 05/09/22 Range/Units 08:15 08:15 08:15 WBC 0.8 L* (3.8-10.6) k/uL RBC 3.42 L (4.30-5.90) m/uL Hgb 9.0 L (13.0-17.5) gm/dL Hct 27.3 L (39.0-53.0) % MCV 79.8 L (80.0-100.0) fL MCH 26.4 (25.0-35.0) pg MCHC 33.1 (31.0-37.0) g/dL RDW 14.4 (11.5-15.5) % Plt Count 10 L* (150-450) k/uL MPV 9.6 Differential Comment Manual Slide Review Performed PT 10.3 (9.0-12.0) sec INR 1.0 (<1.2) Sodium 133 L (137-145) mmol/L Potassium 4.9 (3.5-5.1) mmol/L Chloride 100 (98-107) mmol/L Carbon Dioxide 28 (22-30) mmol/L Anion Gap 5 mmol/L BUN 22 H (9-20) mg/dL Creatinine 0.79 (0.66-1.25) mg/dL Est GFR (CKD-EPI)AfAm >90 (>60 ml/min/1.73 sqM) Est GFR (CKD-EPI)NonAf >90 (>60 ml/min/1.73 sqM) Glucose 95 (74-99) mg/dL Calcium 8.6 (8.4-10.2) mg/dL Disposition Clinical Impression: Leukocytosis, Lung cancer, Thrombocytopenia, Epistaxis Disposition: ADMITTED IP TO THIS [facility] Referrals: None,Stated [Primary Care Provider] - 1-2 days Decision Date: 05/09/22 Decision Time: 09:30
[2022-05-09 08:37] LABS: HCT 27.3 % (39.0-53.0); MCH 26.4 pg (25.0-35.0); MCHC 33.1 g/dL (31.0-37.0); MCV 79.8 fL (80.0-100.0); Mean Platelet Volume 9.6; RBC 3.42 m/uL (4.30-5.90); RDW 14.4 % (11.5-15.5)
[2022-05-09 08:46] LABS: Prothrombin Time 10.3 sec (9.0-12.0)
[2022-05-09 09:03] LABS: African American GFR (CKD) >90 (>60 ml/min/1.73 sqM); Anion Gap 5 mmol/L; Blood Urea Nitrogen 22 mg/dL (9-20); Calcium 8.6 mg/dL (8.4-10.2); Carbon Dioxide 28 mmol/L (22-30); Chloride 100 mmol/L (98-107); Glucose 95 mg/dL (74-99); Non-African American GFR(CKD) >90 (>60 ml/min/1.73 sqM); Potassium 4.9 mmol/L (3.5-5.1); Sodium 133 mmol/L (137-145)
[2022-05-09 09:10] LABS: WBC 0.8 k/uL (3.8-10.6)
[2022-05-09 09:11] LABS: Platelet Count 10 k/uL (150-450)
[2022-05-09] MEDS ORDERED: ACETAMINOPHEN TAB 325 MG TAB PO PRN (09:30)
[2022-05-09] MEDS ORDERED: NALOXONE 0.4 MG/ML 1 ML VIAL IV PRN (09:30)
--- NOTE | 2022-05-09 14:37 | P.HPIM ---
History of Present Illness H&P Date: 05/09/22 History of present illness; patient is a 61-year-old gentleman with past medical history significant for coronary artery disease, lung cancer who was recently started on carboplatin who come to the hospital because of epistaxis for 3 days. Patient stated that he was started on carboplatin last Tuesday since then he has been noticing that he is bleeding from his nose. Denies any bleeding from any other orifice. Denies any lightheadedness or dizziness. Denies any chest pain or shortness of breath. Because of this epistaxis patient came to the ER, where manual pressure was applied and this epistaxis resolved. Patient hemoglobin was 9 and hematocrit was 27.3, patient count was only 10. ER physician talked with oncology and they recommended platelet transfusion and admission for further evaluation and treatment REVIEW OF SYSTEMS: CONSTITUTIONAL: No fever, no malaise, no fatigue. HEENT: No recent visual problems or hearing problems. Denied any sore throat. CARDIOVASCULAR: No chest pain, orthopnea, PND, no palpitations, no syncope. PULMONARY: No shortness of breath, no cough, no hemoptysis. GASTROINTESTINAL: No diarrhea, no nausea, no vomiting, no abdominal pain. NEUROLOGICAL: No headaches, no weakness, no numbness. HEMATOLOGICAL: Denies any bleeding or petechiae. GENITOURINARY: Denies any burning micturition, frequency, or urgency. MUSCULOSKELETAL/RHEUMATOLOGICAL: Denies any joint pain, swelling, or any muscle pain. ENDOCRINE: Denies any polyuria or polydipsia. The rest of the 14-point review of systems is negative. PHYSICAL EXAMINATION: GENERAL: The patient is alert and oriented x3, not in any acute distress. Well developed, well nourished. HEENT: Pupils are round and equally reacting to light. EOMI. No scleral icterus. No conjunctival pallor. Normocephalic, atraumatic. No pharyngeal erythema. No thyromegaly. CARDIOVASCULAR: S1 and S2 present. No murmurs, rubs, or gallops. PULMONARY: Chest is clear to auscultation, no wheezing or crackles. ABDOMEN: Soft, nontender, nondistended, normoactive bowel sounds. No palpable organomegaly. MUSCULOSKELETAL: No joint swelling or deformity. EXTREMITIES: No cyanosis, clubbing, or pedal edema. NEUROLOGICAL: Gross neurological examination did not reveal any focal deficits. SKIN: No rashes. Assessment and plan Epistaxis Thrombocytopenia Pancytopenia secondary to antineoplastic drugs Lung cancer Plan; Monitor vital signs Monitor CBC Monitor CMP Patient being transfuse 1 unit of platelets. Resume home meds Consult hematology oncology Past Medical History Past Medical History: Cancer, Chest Pain / Angina, Myocardial Infarction ([place]), Pneumonia Additional Past Medical History / Comment(s): SVT with chest pain/palpitations- chemically converted. Last Myocardial Infarction Date:: 2017 History of Any Multi-Drug Resistant Organisms: MRSA Date of last positivie culture/infection: 12/23/2013 MDRO Source:: Face Past Surgical History: Heart Catheterization With Stent Additional Past Surgical History / Comment(s): I&D of R inframandibular abscess. 3 cardiac stents. Past Anesthesia/Blood Transfusion Reactions: No Reported Reaction Date of Last Stent Placement:: 2017 Past Psychological History: No Psychological Hx Reported Additional Psychological History / Comment(s): Pt states he was released from [facility] recently (driving on suspended license) and during his time in [facility] he lost his job and insurance. He resides with his son. He uses no assistive devices. He no longer drives, his son takes him places. Smoking Status: Former smoker Past Alcohol Use History: Rare Additional Past Alcohol Use History / Comment(s): Pt started smoking when he was 13 1ppd and recently quit within the last month or so. Drinks occasionally and eats marijuana gummies. Past Drug Use History: Marijuana Additional Drug Use History / Comment(s): Pt denies any drug use. [facility] documents marijuana. - Past Family History Father Family Medical History: No Reported History Additional Family Medical History / Comment(s): Father of "natural causes" at the age of 79yrs. Mother Family Medical History: COPD, Coronary Artery Disease (CAD) Additional Family Medical History / Comment(s): Mother is 76yrs old. She has had several MIs, 6 cardiac stents and a 4 vessel CABG. Medications and Allergies Home Medications Medication Instructions Recorded Confirmed Type Aspirin 81 mg PO DAILY #30 chew 03/05/17 05/09/22 Rx Atorvastatin [Lipitor] 80 mg PO HS 03/04/21 05/09/22 History Metoprolol Tartrate [Lopressor] 50 mg PO BID 03/04/21 05/09/22 History HYDROcodone/APAP 10-325MG [[place] 1 tab PO QID 05/09/22 05/09/22 History 10-325] Ondansetron [Zofran] 4 mg PO Q6H PRN 05/09/22 05/09/22 History lisinopriL [Zestril] 5 mg PO DAILY 05/09/22 05/09/22 History Allergies Allergy/AdvReac Type Severity Reaction Status Date / Time Penicillins Allergy Unknown Verified 05/09/22 07:34 Physical Exam Vitals: Vital Signs Temp Pulse Pulse Resp BP BP Pulse Ox 05/09/22 14:09 97.9 F 88 16 113/70 100 05/09/22 14:00 97.9 F 88 16 113/70 100 05/09/22 13:49 98.5 F 82 16 101/64 100 05/09/22 13:41 99.0 F 85 18 115/72 100 05/09/22 11:03 98.2 F 77 16 131/76 99 05/09/22 10:06 71 16 92/75 100 05/09/22 08:29 72 16 103/67 98 05/09/22 07:30 98.8 F 90 20 118/75 100 Intake and Output 05/08/22 05/09/22 05/09/22 22:59 06:59 14:59 Intake Total 0 Balance 0 Intake: Blood Product 0 Platelet Pheresis Pas 0 Psoralen Unit [id number] Other: Weight 74.843 kg Results CBC & Chem 7: 05/09/22 08:15 05/09/22 08:15 Labs: Abnormal Lab Results - Last 24 Hours (Table) 05/09/22 05/09/22 Range/Units 08:15 08:15 WBC 0.8 L* (3.8-10.6) k/uL RBC 3.42 L (4.30-5.90) m/uL Hgb 9.0 L (13.0-17.5) gm/dL Hct 27.3 L (39.0-53.0) % MCV 79.8 L (80.0-100.0) fL Plt Count 10 L* (150-450) k/uL Sodium 133 L (137-145) mmol/L BUN 22 H (9-20) mg/dL Thrombosis Risk Factor Assmnt - Choose All That Apply Any of the Below Risk Factors Present?: Yes Each Factor Represents 1 point: Abnormal pulmonary function (COPD), Age 41-60 years Other Risk Factors: Yes Each Risk Factor Represents 2 Points: Malignancy Other congenital or acquired thrombophilia - If yes, enter type in comment: No (Thrombocytopenia , new onset) Thrombosis Risk Factor Assessment Total Risk Factor Score: 4 Thrombosis Risk Factor Assessment Level: Moderate Risk
[2022-05-09] MEDS ORDERED: OXYMETAZOLINE 0.05% NASL SPRAY 1 SPRAY BOTTLE NASAL PRN (16:58)
--- NOTE | 2022-05-09 17:11 | P.CONS ---
History of Present Illness - Reason for Consult Consult date: 05/09/22 Stage IV lung cancer - Chief Complaint Epistaxis - History of Present Illness Mr. Rene is a 61-year-old gentleman with a past medical history significant for stage IV squamous cell carcinoma of the lung previously on single agent pembrolizumab from February 2021 through March 2022 with evidence of disease progression and recently started cycle 1 of carboplatin/gemcitabine on 04/27/2022 who presents with 3 days of epistaxis. He notes this first occurred on 05/07/2022 with passage of blood mixed with clots. Initially, this was occurring intermittently, but then was not resolving with holding pressure on the nose for 15 minutes. He notes having episodes of epistaxis prior to undergoing cancer treatment. Currently, he denies any dizziness, lightheadedness, nausea, vomiting, or diarrhea. He was noted to have aspirin on his medication list. Given his persistent epistaxis, he presented to the ED for additional management recommendations. In the ED, he was hemodynamically stable and afebrile. Labs are notable for WBC 0.8, hemoglobin 9 (MCV 79.8), platelets 10. CMP was within normal limits and no acute metabolic abnormalities. Epistaxis eventually resolved in the ED without specific intervention. He was admitted for additional management recommendations. Review of Systems 14 point review of systems conducted with pertinent positive and negatives as noted per HPI Past Medical History Past Medical History: Cancer, Chest Pain / Angina, Myocardial Infarction (OR), Pneumonia Additional Past Medical History / Comment(s): SVT with chest pain/palpitations- chemically converted. 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 3 cardiac stents. Past Anesthesia/Blood Transfusion Reactions: No Reported Reaction Date of Last Stent Placement:: 2017 Past Psychological History: No Psychological Hx Reported Additional Psychological History / Comment(s): Pt states he was released from retirement recently (driving on suspended license) and during his time in retirement he lost his job and insurance. He resides with his son. He uses no assistive devices. He no longer drives, his son takes him places. Smoking Status: Former smoker Past Alcohol Use History: Rare Additional Past Alcohol Use History / Comment(s): Pt started smoking when he was 13 1ppd and recently quit within the last month or so. Drinks occasionally and eats marijuana gummies. Past Drug Use History: Marijuana Additional Drug Use History / Comment(s): Pt denies any drug use. PMH documents marijuana. - Past Family History Father Family Medical History: No Reported History Additional Family Medical History / Comment(s): Father of "natural causes" at the age of 79yrs. Mother Family Medical History: COPD, Coronary Artery Disease (CAD) Additional Family Medical History / Comment(s): Mother is 76yrs old. She has had several MIs, 6 cardiac stents and a 4 vessel CABG. Medications and Allergies Home Medications Medication Instructions Recorded Confirmed Type Aspirin 81 mg PO DAILY #30 chew 03/05/17 05/09/22 Rx Atorvastatin [Lipitor] 80 mg PO HS 03/04/21 05/09/22 History Metoprolol Tartrate [Lopressor] 50 mg PO BID 03/04/21 05/09/22 History HYDROcodone/APAP 10-325MG [[place] 1 tab PO QID 05/09/22 05/09/22 History 10-325] Ondansetron [Zofran] 4 mg PO Q6H PRN 05/09/22 05/09/22 History lisinopriL [Zestril] 5 mg PO DAILY 05/09/22 05/09/22 History Allergies Allergy/AdvReac Type Severity Reaction Status Date / Time Penicillins Allergy Dyspnea & Verified 05/09/22 14:39 Hives all over Physical Exam Vitals: Vital Signs Temp Pulse Pulse Resp BP BP Pulse Ox 05/09/22 14:09 97.9 F 88 16 113/70 100 05/09/22 14:00 97.9 F 88 16 113/70 100 05/09/22 13:49 98.5 F 82 16 101/64 100 05/09/22 13:41 99.0 F 85 18 115/72 100 05/09/22 11:03 98.2 F 77 16 131/76 99 05/09/22 10:06 71 16 92/75 100 05/09/22 08:29 72 16 103/67 98 05/09/22 07:30 98.8 F 90 20 118/75 100 Intake and Output 03/05/09/22 05/09/22 06:59 14:59 22:59 Intake Total 0 Balance 0 Intake: Blood Product 0 Platelet Pheresis Pas 0 Psoralen Unit [id number] Other: Weight 74.843 kg - Constitutional General appearance: cooperative, no acute distress - EENT no epistaxis at the time of evaluation Eyes: EOMI - Respiratory Respiratory: bilateral: CTA - Cardiovascular Rhythm: regular - Gastrointestinal General gastrointestinal: no distended, normal bowel sounds, soft, no tenderness - Integumentary Integumentary: no rash - Neurologic Neurologic: CNII-XII intact Results CBC & Chem 7: 05/09/22 08:15 05/09/22 08:15 Labs: Abnormal Lab Results - Last 24 Hours (Table) 05/09/22 05/09/22 Range/Units 08:15 08:15 WBC 0.8 L* (3.8-10.6) k/uL RBC 3.42 L (4.30-5.90) m/uL Hgb 9.0 L (13.0-17.5) gm/dL Hct 27.3 L (39.0-53.0) % MCV 79.8 L (80.0-100.0) fL Plt Count 10 L* (150-450) k/uL Sodium 133 L (137-145) mmol/L BUN 22 H (9-20) mg/dL Assessment and Plan (1) Epistaxis Current Visit: Yes Status: Acute Code(s): R04.0 - EPISTAXIS SNOMED Code(s): 028328737 (2) Lung cancer Current Visit: Yes Status: Acute Code(s): C34.90 - MALIGNANT NEOPLASM OF UNS P PART OF UNSP BRONCHUS OR LUNG SNOMED Code(s): 192060231 (3) Thrombocytopenia Current Visit: Yes Status: Acute Code(s): D69.6 - THROMBOCYTOPENIA, UNSPECIFIED SNOMED Code(s): 621053745 Plan: Epistaxis, thrombocytopenia -Noted to have 3 days of epistaxis, which became persistent in nature on the evening of 05/08/2022 -Noted to have platelet count of 10 on initial presentation -His thrombocytopenia is chemotherapy-induced, likely due to gemcitabine (day 8 of treatment was on 05/04/2022) -Agree with 1 unit of pooled platelets given platelet count of 10 and bleeding -Afrin nasal spray ordered 3 times daily as needed for epistaxis -Additional platelets can be given if there is persistent bleeding after the initial platelet transfusion -If epistaxis persists despite these measures, ENT consultation is warranted Stage IV lung cancer -Noted to have disease progression on single agent pembrolizumab on CT imaging in March 2022 -Is currently on carboplatin/gemcitabine initiated cycle 1 on 04/27/2022 (day 8 of treatment on 05/04/2022) -Next treatment due on 05/18/2022. May have to consider dose reduction given blee ding episode, which will be deferred to his primary oncologist -During treatment, aspirin will likely have to be held
[2022-05-09] MEDS: HYDROcodone/APAP 10-325MG 1 EACH TAB PO SCH ×2 (18:15→21:56)
[2022-05-09] MEDS: METOPROLOL TARTRATE 50 MG TAB PO SCH (21:50)
[2022-05-09] MEDS: ATORVASTATIN 80 MG TAB PO SCH (21:50)
[2022-05-09] MEDS: ONDANSETRON 4 MG TAB PO PRN (21:53)
[2022-05-09 23:10] LABS: % Iron Saturation 48.82 (15.00-50.00)
[2022-05-10 07:12] LABS: Basophils % (A) 1 %; Eosinophils % (A) 0 %; HCT 32.7 % (39.0-53.0); HGB 10.5 gm/dL (13.0-17.5); Hypochromasia Slight; Lymphocytes # (A) 0.3 k/uL (1.0-4.8); Lymphocytes % (A) 64 %; MCH 25.5 pg (25.0-35.0); MCHC 31.9 g/dL (31.0-37.0); MCV 79.9 fL (80.0-100.0); Monocytes % (A) 0 %; Neutrophils % (A) 31 %; RDW 14.6 % (11.5-15.5)
[2022-05-10 07:18] LABS: Neutrophils # (A) 0.1 k/uL (1.3-7.7); Platelet Count 24 k/uL (150-450); WBC 0.5 k/uL (3.8-10.6)
[2022-05-10] MEDS: HYDROcodone/APAP 10-325MG 1 EACH TAB PO SCH ×4 (08:46→21:47)
[2022-05-10] MEDS: METOPROLOL TARTRATE 50 MG TAB PO SCH ×2 (08:47→21:47)
[2022-05-10] MEDS: lisinopriL 5 MG TAB PO SCH (08:47)
[2022-05-10] MEDS: ONDANSETRON 4 MG TAB PO PRN (09:31)
--- NOTE | 2022-05-10 12:47 | P.PN ---
Subjective Progress Note Date: 05/10/22 Principal diagnosis: thrombocytopenia, epistaxis At today's visit patient is resting comfortably in bed. patient reports nausea, denies vomiting. States that at 2 AM he woke up with epistaxis. And reports intermittent bleeding since, denies blood clots. Objective - Vital Signs Vital signs: Vital Signs Temp 99.0 F 05/10/22 11:21 Pulse 67 05/10/22 11:21 Resp 16 05/10/22 11:21 BP 101/64 05/10/22 11:21 Pulse Ox 92 L 05/10/22 11:21 FiO2 Intake & Output 05/09/22 05/10/22 05/10/22 18:59 06:59 18:59 Intake Total 996 Output Total 400 Balance 596 Weight 74.843 kg Intake: IV 347 PLATLETS 347 Oral 300 Blood Product 349 Platelet Pheresis Pas 349 Psoralen Unit [id number] Output: Urine 400 Other: Voiding Method Urinal Toilet Urinal # Voids 2 - Constitutional General appearance: Present: average body habitus, no acute distress - EENT EENT Comment(s): no acute bleeding, dried blood in nostril Eyes: Present: anicteric sclerae, EOMI ENT: Present: hearing grossly normal, normal oropharynx. Absent: thrush - Respiratory Respiratory: bilateral: CTA - Cardiovascular Rhythm: regular Heart sounds: normal: S1, S2 Abnormal Heart Sounds: Absent: systolic murmur, diastolic murmur, rub, S3 Gallop, S4 Gallop, click, other - Integumentary Integumentary: Present: pale - Neurologic Neurologic: Present: CNII-XII intact - Musculoskeletal Musculoskeletal: Present: strength equal bilaterally - Psychiatric Psychiatric: Present: A&O x's 3, appropriate affect, intact judgment & insight - Labs CBC & Chem 7: 05/10/22 05:53 05/09/22 08:15 Labs: Abnormal Lab Results - Last 24 Hours (Table) 05/09/22 05/10/22 Range/Units 08:15 05:53 WBC 0.5 L* (3.8-10.6) k/uL RBC 4.10 L (4.30-5.90) m/uL Hgb 10.5 L (13.0-17.5) gm/dL Hct 32.7 L (39.0-53.0) % MCV 79.9 L (80.0-100.0) fL Plt Count 24 L D (150-450) k/uL Neutrophils # 0.1 L* (1.3-7.7) k/uL Lymphocytes # 0.3 L (1.0-4.8) k/uL Transferrin 199.0 L (204.0-354.0) mg/dL Ferritin 853.0 H (22.0-322.0) ng/mL Assessment and Plan (1) Epistaxis Current Visit: Yes Status: Acute Priority: High Code(s): R04.0 - EPISTAXIS SNOMED Code(s): 402476666 (2) Thrombocytopenia Current Visit: Yes Status: Acute Priority: High Code(s): D69.6 - THROMBOCYTOPENIA, UNSPECIFIED SNOMED Code(s): 892838072 Plan: Epistaxis, thrombocytopenia -Noted to have 3 days of epistaxis, which became persistent in nature on the evening of 05/08/2022 -Noted to have platelet count of 10 on initial presentation -His thrombocytopenia is chemotherapy-induced, likely due to gemcitabine (day 8 of treatment was on 05/04/2022) -1 unit of pooled platelets given yesterday. Platelets improved today, 24,000, however, due to persisting epistaxis will order additional unit of platelets -Afrin nasal spray ordered 3 times daily as needed for epistaxis -If epistaxis persists despite these measures, ENT consultation is warranted Stage IV lung cancer -Noted to have disease progression on single agent pembrolizumab on CT imaging in March 2022 -Is currently on carboplatin/gemcitabine initiated cycle 1 on 04/27/2022 (day 8 of treatment on 05/04/2022) -Next treatment due on 05/18/2022. May have to consider dose reduction given bleeding episode, which will be deferred to his primary oncologist -During treatment, aspirin will likely have to be held attests: I have performed a H&P and developed impression and plan of care for patient, discussed with dictator. I agree with dictated note, documented as a scribe
--- NOTE | 2022-05-10 13:16 | P.PN ---
Subjective Progress Note Date: 05/10/22 Mr. Rene is a 61-year-old gentleman with a past medical history significant for stage IV squamous cell carcinoma of the lung previously on single agent pembrolizumab from February 2021 through March 2022 with evidence of disease progression and recently started cycle 1 of carboplatin/gemcitabine on 04/27/2022 who presents with 3 days of epistaxis. He notes this first occurred on 05/07/2022 with passage of blood mixed with clots. Initially, this was occurring intermittently, but then was not resolving with holding pressure on the nose for 15 minutes. He notes having episodes of epistaxis prior to undergoing cancer treatment. Currently, he denies any dizziness, lightheadedness, nausea, vomitin g, or diarrhea. He was noted to have aspirin on his medication list. Given his persistent epistaxis, he presented to the ED for additional management recommendations. In the ED, he was hemodynamically stable and afebrile. Labs are notable for WBC 0.8, hemoglobin 9 (MCV 79.8), platelets 10. CMP was within normal limits and no acute metabolic abnormalities. Epistaxis eventually resolved in the ED without specific intervention. He was admitted for additional management recommendations. 05/10. Patient seen and examined. Had one episode of epistaxis overnight. Platelet count this morning is 24,000 REVIEW OF SYSTEMS: CONSTITUTIONAL: No fever, no malaise,. CARDIOVASCULAR: No chest pain, no palpitations, no syncope. PULMONARY: No shortness of breath, no cough, GASTROINTESTINAL: No diarrhea, no nausea, no vomiting, no abdominal pain. NEUROLOGICAL: No headaches, no weakness, PHYSICAL EXAMINATION: GENERAL: The patient is alert and oriented x3, not in any acute distress. Well developed, well nourished. HEENT: Pupils are round and equally reacting to light. EOMI. No scleral icterus. No conjunctival pallor. Normocephalic, atraumatic. No pharyngeal erythema. No thyromegaly. CARDIOVASCULAR: S1 and S2 present. No murmurs, rubs, or gallops. PULMONARY: Chest is clear to auscultation, no wheezing or crackles. ABDOMEN: Soft, nontender, nondistended, normoactive bowel sounds. No palpable organomegaly. MUSCULOSKELETAL: No joint swelling or deformity. EXTREMITIES: No cyanosis, clubbing, or pedal edema. NEUROLOGICAL: Gross neurological examination did not reveal any focal deficits. SKIN: No rashes. Assessment and plan Epistaxis Thrombocytopenia Stage IV lung cancer Plan Monitor vital signs Monitor CBC Monitor CMP Continue telemetry monitoring His thrombocytopenia is chemotherapy-induced, likely due to gemcitabine (day 8 of treatment was on 05/04/2022) Afrin nasal spray ordered 3 times daily as needed for epistaxis Additional platelets can be given if there is persistent bleeding after the initial platelet transfusion Hold aspirin for now. Follow-up in hematology oncology recommendations, they plan to give another unit of platelets Objective - Vital Signs Vital signs: Vital Signs Temp 98.8 F 05/10/22 07:14 Pulse 78 05/10/22 07:14 Resp 18 05/10/22 07:14 BP 100/64 05/10/22 07:14 Pulse Ox 97 05/10/22 07:14 FiO2 Intake & Output 05/09/22 05/10/22 05/10/22 18:59 06:59 18:59 Intake Total 996 Output Total 400 Balance 596 Weight 74.843 kg Intake: IV 347 PLATLETS 347 Oral 300 Blood Product 349 Platelet Pheresis Pas 349 Psoralen Unit [id number] Output: Urine 400 Other: Voiding Method Urinal # Voids 2 - Labs CBC & Chem 7: 05/10/22 05:53 05/09/22 08:15 Labs: Abnormal Lab Results - Last 24 Hours (Table) 05/09/22 05/10/22 Range/Units 08:15 05:53 WBC 0.5 L* (3.8-10.6) k/uL RBC 4.10 L (4.30-5.90) m/uL Hgb 10.5 L (13.0-17.5) gm/dL Hct 32.7 L (39.0-53.0) % MCV 79.9 L (80.0-100.0) fL Plt Count 24 L D (150-450) k/uL Neutrophils # 0.1 L* (1.3-7.7) k/uL Lymphocytes # 0.3 L (1.0-4.8) k/uL Transferrin 199.0 L (204.0-354.0) mg/dL Ferritin 853.0 H (22.0-322.0) ng/mL
[2022-05-10] MEDS: ATORVASTATIN 80 MG TAB PO SCH (21:47)
[2022-05-11] MEDS: HYDROcodone/APAP 10-325MG 1 EACH TAB PO SCH ×2 (09:00→13:07)
[2022-05-11] MEDS: METOPROLOL TARTRATE 50 MG TAB PO SCH (09:02)
[2022-05-11] MEDS: lisinopriL 5 MG TAB PO SCH (09:02)
[2022-05-11 09:46] LABS: African American GFR (CKD) 114.2 (60.0-200.0); Albumin 3.3 g/dL (3.8-4.9); Albumin/Globulin Ratio 0.88 (1.60-3.17); Anion Gap 10.4 mmol/L (10.00-18.00); BUN/Creat Ratio 20.6 Ratio (12.00-20.00); Blood Urea Nitrogen 15.9 mg/dL (9.0-27.0); Calcium 8.8 mg/dL (8.7-10.3); Carbon Dioxide 25.1 mmol/L (20.0-27.5); Globulin 3.7 g/dL (1.6-3.3); Non-African American GFR(CKD) 98.5 (60.0-200.0); Total Bilirubin 0.2 mg/dL (0.30-1.20)
[2022-05-11 11:25] LABS: HCT 26.1 % (39.6-50.0); HGB 8.1 g/dL (13.0-17.0); MCV 80.6 fL (80.0-97.0); Mean Platelet Volume 10.6 fL (9.5-12.2); NRBC Per 100 WBC 0 /100 WBCS (0.0-0.0); Platelet Count 31 X 10*3/uL (140-440); RBC 3.24 X 10*6/uL (4.40-5.60); RDW 14.5 % (11.5-14.5); WBC 0.77 X 10*3/uL (4.50-10.00)
[2022-05-11 11:26] LABS: Immature Platelet Fraction 3.9 % (1.1-6.1); Rouleaux PRESENT
[2022-05-11 13:16] VITALS: BP 100/66; PULSE 77; RESP 17; TEMP 98.1
--- NOTE | 2022-05-11 13:37 | P.DS ---
Providers Date of admission: 05/09/22 10:56 Expected date of discharge: 05/11/22 Attending physician: Dionicio Laughlin MD Consults: 05/09/22 09:30 Consult Physician Routine Consulting Provider: Caroline Dolan Consult Reason/Comments: Thrombocytopenia, leukocytosis, lung cancer, epistaxis Do you want consulting provider notified?: Already Contacted Primary care physician: Stated None Hospital Course: Discharge diagnoses; Epistaxis Thrombocytopenia Stage IV lung cancer Hospital course; Mr. Rene is a 61-year-old gentleman with a past medical history significant for stage IV squamous cell carcinoma of the lung previously on single agent pembrolizumab from February 2021 through March 2022 with evidence of disease progression and recently started cycle 1 of carboplatin/gemcitabine on 04/27/2022 who presents with 3 days of epistaxis. He notes this first occurred on 05/07/2022 with passage of blood mixed with clots. Initially, this was occurring intermittently, but then was not resolving with holding pressure on the nose for 15 minutes. He notes having episodes of epistaxis prior to undergoing cancer treatment. Currently, he denies any dizziness, lightheadedness, nausea, vomiting, or diarrhea. He was noted to have aspirin on his medication list. Given his persistent epistaxis, he presented to the ED for additional management recommendations. In the ED, he was hemodynamically stable and afebrile. Labs are notable for WBC 0.8, hemoglobin 9 (MCV 79.8), platelets 10. CMP was within normal limits and no acute metabolic abnormalities. Epistaxis eventually resolved in the ED without specific intervention. He was admitted for additional management recommendations. 05/10. Patient seen and examined. Had one episode of epistaxis overnight. Platelet count this morning is 24,000 05/11. Patient seen and examined. Platelet count Improved to 31K. Hematology oncology has cleared the patient for discharge PHYSICAL EXAMINATION: GENERAL: The patient is alert and oriented x3, not in any acute distress. Well developed, well nourished. HEENT: Pupils are round and equally reacting to light. EOMI. No scleral icterus. No conjunctival pallor. Normocephalic, atraumatic. No pharyngeal erythema. No thyromegaly. CARDIOVASCULAR: S1 and S2 present. No murmurs, rubs, or gallops. PULMONARY: Chest is clear to auscultation, no wheezing or crackles. ABDOMEN: Soft, nontender, nondistended, normoactive bowel sounds. No palpable organomegaly. MUSCULOSKELETAL: No joint swelling or deformity. EXTREMITIES: No cyanosis, clubbing, or pedal edema. NEUROLOGICAL: Gross neurological examination did not reveal any focal deficits. SKIN: No rashes. Patient Condition at Discharge: Stable Plan - Discharge Summary Discharge Rx Participant: Yes New Discharge Prescriptions: New Oxymetazoline 0.05% Nasl [place] [Afrin 0.05% Nasal [place]] 2 spray NASAL TID PRN 7 Days #1 each PRN Reason: Epistaxis Continue Aspirin 81 mg PO DAILY #30 chew lisinopriL [Zestril] 5 mg PO DAILY Ondansetron [Zofran] 4 mg PO Q6H PRN PRN Reason: Nausea HYDROcodone/APAP 10-325MG [[place] 10-325] 1 tab PO QID Atorvastatin [Lipitor] 80 mg PO HS Metoprolol Tartrate [Lopressor] 50 mg PO BID Discharge Medication List Aspirin 81 mg PO DAILY #30 chew 03/05/17 [Rx] Atorvastatin [Lipitor] 80 mg PO HS 03/04/21 [History] Metoprolol Tartrate [Lopressor] 50 mg PO BID 03/04/21 [History] HYDROcodone/APAP 10-325MG [[place] 10-325] 1 tab PO QID 05/09/22 [History] Ondansetron [Zofran] 4 mg PO Q6H PRN 05/09/22 [History] lisinopriL [Zestril] 5 mg PO DAILY 05/09/22 [History] Oxymetazoline 0.05% Nasl [place] [Afrin 0.05% Nasal [place]] 2 spray NASAL TID PRN 7 Days #1 each 05/11/22 [Rx] Follow up Appointment(s)/Referral(s): Juan Carlos Hoyos MD [STAFF PHYSICIAN] - 05/14/22 8:45 am None,Stated [Primary Care Provider] - 1-2 days Discharge Disposition: HOME SELF-CARE
--- NOTE | 2022-05-11 14:22 | P.PN ---
Subjective Progress Note Date: 05/11/22 Principal diagnosis: thrombocytopenia, epistaxis At today's visit patient is resting comfortably in bed. Patients reports feeling well today. He denies any episodes of epistaxis in the last 24 hours. no other reported complaints at this time Objective - Vital Signs Vital signs: Vital Signs Temp 98.1 F 05/11/22 13:16 Pulse 77 05/11/22 13:16 Resp 17 05/11/22 13:16 BP 100/66 05/11/22 13:16 Pulse Ox 100 05/11/22 13:16 FiO2 Intake & Output 05/10/22 05/11/22 05/11/22 18:59 06:59 18:59 Intake Total 253 Balance 253 Intake: Blood Product 253 Platelet Pheresis Pas 253 Psoralen Unit [id number] Other: Voiding Method Toilet Toilet Toilet Urinal Urinal # Voids 1 - Constitutional General appearance: Present: average body habitus, no acute distress - EENT EENT Comment(s): no acute epistaxis noted Eyes: Present: anicteric sclerae, EOMI ENT: Present: hearing grossly normal - Respiratory Details: breathing is even and unlabored - Cardiovascular Details: skin is warm and dry - Integumentary Integumentary: Present: pale - Neurologic Neurologic Comment(s): grossly intact - Musculoskeletal Musculoskeletal: Present: strength equal bilaterally - Psychiatric Psychiatric: Present: A&O x's 3, appropriate affect, intact judgment & insight - Labs CBC & Chem 7: 05/11/22 06:25 05/11/22 06:25 Labs: Abnormal Lab Results - Last 24 Hours (Table) 05/11/22 05/11/22 Range/Units 06:25 06:25 WBC 0.77 L* (4.50-10.00) X 10*3/uL RBC 3.24 L (4.40-5.60) X 10*6/uL Hgb 8.1 L (13.0-17.0) g/dL Hct 26.1 L (39.6-50.0) % MCH 25.0 L (27.0-32.0) pg MCHC 31.0 L (32.0-37.0) g/dL Plt Count 31 L (140-440) X 10*3/uL Plt Count Comment A BUN/Creatinine Ratio 20.60 H (12.00-20.00) Ratio Total Bilirubin 0.20 L (0.30-1.20) mg/dL AST 48 H (14-35) U/L ALT 73 H (10-49) U/L Albumin 3.3 L (3.8-4.9) g/dL Globulin 3.7 H (1.6-3.3) g/dL Albumin/Globulin Ratio 0.88 L (1.60-3.17) g/dL Assessment and Plan (1) Epistaxis Current Visit: Yes Status: Acute Priority: High Code(s): R04.0 - EPISTAXIS SNOMED Code(s): 046761781 (2) Thrombocytopenia Current Visit: Yes Status: Acute Priority: High Code(s): D69.6 - THROM BOCYTOPENIA, UNSPECIFIED SNOMED Code(s): 066338281 Plan: Epistaxis, thrombocytopenia -Noted to have 3 days of epistaxis, which became persistent in nature on the evening of 05/08/2022. No bleeding episodes in last 24 hours. -Noted to have platelet count of 10 on initial presentation -His thrombocytopenia is chemotherapy-induced, likely due to gemcitabine (day 8 of treatment was on 05/04/2022) -2 units of pooled platelets given since admission. Platelets 31,000 today -Afrin nasal spray ordered 3 times daily as needed for epistaxis Stage IV lung cancer -Noted to have disease progression on single agent pembrolizumab on CT imaging in March 2022 -Is currently on carboplatin/gemcitabine initiated cycle 1 on 04/27/2022 (day 8 of treatment on 05/04/2022) -Next treatment due on 05/18/2022. May have to consider dose reduction given bleeding episode, which will be deferred to his primary oncologist -During treatment, aspirin will likely have to be held -F/u scheduled on 05/[address] Hoyos. [facility] *Patient is cleared from a hem/onc standpoint, once cleared by IM and other consulted medical specialties
== END 2022-05-11 14:46 | disposition home or self-care (01) | DRG 115 ==
LOC: EC 07:29 → 5NMEDONC 10:56
PROVIDERS: ADMIT Internal Medicine; ATTEND Internal Medicine
PROC: 30233R1 Transfusion of Nonautologous Platelets into Peripheral Vein, Percutaneous Approach (ICD-10-PCS; principal; 2022-05-10)
DX: R04.0 Epistaxis (principal); C34.90 Malignant neoplasm of unspecified part of unspecified bronchus or lung; D61.818 Other pancytopenia; D68.9 Coagulation defect, unspecified; I25.2 Old myocardial infarction; Z87.01 Personal history of pneumonia (recurrent); D69.6 Thrombocytopenia, unspecified; Z86.14 Personal history of Methicillin resistant Staphylococcus aureus infection; T45.1X5A Adverse effect of antineoplastic and immunosuppressive drugs, initial encounter; Z56.0 Unemployment, unspecified; Z79.1 Long term (current) use of non-steroidal anti-inflammatories (NSAID); Z79.82 Long term (current) use of aspirin; Z79.899 Other long term (current) drug therapy; Z85.118 Personal history of other malignant neoplasm of bronchus and lung; Z95.5 Presence of coronary angioplasty implant and graft; Z87.891 Personal history of nicotine dependence; Z86.16 Personal history of COVID-19
CPT/HCPCS: 36415; 80048; 80053; 82607; 82728; 82746; 83540; 83550; 85025; 85027; 85610; 86850; 86900; 86901; 99285

== ENCOUNTER 2022-07-09 20:03 | Inpatient (IN) | payer OTHER ==
[2022-07-09] MEDS ORDERED: SODIUM CHLORIDE 0.9% 500 ML 500 ML IV STA (20:29)
[2022-07-09] MEDS ORDERED: SODIUM CHLORIDE 0.9% 1,000 ML IV STA (20:29)
[2022-07-09] MEDS ORDERED: methylPREDNISolone SOD SUCCI 125 MG/2 ML VIAL IV STA (20:29)
[2022-07-09] MEDS ORDERED: IPRATROPIUM-ALBUTEROL 3 ML NEB INHALATION STA (20:29)
--- NOTE | 2022-07-09 20:30 | ED ---
SOB HPI - General Chief Complaint: Shortness of Breath Stated Complaint: SOB/swelling all over Time Seen by Provider: 07/09/22 20:29 Source: patient, RN notes reviewed, old records reviewed Mode of arrival: wheelchair Limitations: no limitations - History of Present Illness Initial Comments: This is a 61-year-old male to the emergency department for evaluation of complaints but weakness shortness of breath and significant bilateral lower extremity edema and body edema arm edema in his arms. Patient has significant pain shortness of breath with minimal activity or ambulation. Patient is on chemotherapy for lung cancer. MD Complaint: shortness of breath, cough -: minutes(s) Radiation: back Severity: moderate Severity scale (1-10): 4 Quality: aching Consistency: constant Improves With: nothing Worsens With: nothing Context: recent URI Associated Symptoms: denies other symptoms - Related Data Home Medications Medication Instructions Recorded Confirmed Atorvastatin [Lipitor] 80 mg PO DAILY 03/04/21 07/09/22 Metoprolol Tartrate [Lopressor] 25 mg PO BID 03/04/21 07/09/22 HYDROcodone/APAP 10-325MG [[place] 1 tab PO QID 05/09/22 07/09/22 10-325] Ondansetron [Zofran] 4 mg PO Q6H PRN 05/09/22 07/09/22 Spiriva Respimat 1.25mcg/Actuation 2 puff INHALATION RT-HS 07/09/22 07/09/22 Mist Previous Rx's Medication Instructions Recorded Aspirin 81 mg PO DAILY #30 chew 03/05/17 Oxymetazoline 0.05% Nasl [place] 2 spray NASAL TID PRN 7 Days #1 05/11/22 [Afrin 0.05% Nasal [place]] each Furosemide [Lasix] 40 mg PO BID@0900,1600 #60 tab 07/14/22 dexAMETHasone ORAL [Hexadrol] 8 mg PO BID #120 tab 07/14/22 Allergies Allergy/AdvReac Type Severity Reaction Status Date / Time Penicillins Allergy Dyspnea & Verified 07/09/22 21:19 Hives all over Review of Systems ROS Statement: Those systems with pertinent positive or pertinent negative responses have been documented in the HPI. ROS Other: All systems not noted in ROS Statement are negative. Past Medical History Past Medical History: Cancer, Chest Pain / Angina, COPD, Myocardial Infarction ([place]), Pneumonia Additional Past Medical History / Comment(s): lung cancer Last Myocardial Infarction Date:: 2017 History of Any Multi-Drug Resistant Organisms: MRSA Date of last positivie culture/infection: 12/23/2013 MDRO Source:: Face Past Surgical History: Heart Catheterization With Stent Additional Past Surgical History / Comment(s): I&D of R inframandibular abscess. 3 cardiac stents. Past Anesthesia/Blood Transfusion Reactions: No Reported Reaction Date of Last Stent Placement:: 2017 Past Psychological History: No Psychological Hx Reported Smoking Status: Former smoker Past Alcohol Use History: Rare Past Drug Use History: None Reported - Past Family History Father Family Medical History: No Reported History Additional Family Medical History / Comment(s): Father of "natural causes" at the age of 79yrs. Mother Family Medical History: COPD, Coronary Artery Disease (CAD) Additional Family Medical History / Comment(s): Mother is 76yrs old. She has had several MIs, 6 cardiac stents and a 4 vessel CABG. General Exam Limitations: no limitations General appearance: alert, in no apparent distress, anxious Head exam: Present: atraumatic, normocephalic, normal inspection Eye exam: Present: normal appearance, PERRL, EOMI. Absent: scleral icterus, conjunctival injection, periorbital swelling ENT exam: Present: normal exam, mucous membranes moist Neck exam: Present: normal inspection. Absent: tenderness, meningismus, lymphadenopathy Respiratory exam: Present: normal lung sounds bilaterally. Absent: respiratory distress, wheezes, rales, rhonchi, stridor Cardiovascular Exam: Present: regular rate, normal rhythm, normal heart sounds. Absent: systolic murmur, diastolic murmur, rubs, gallop, clicks GI/Abdominal exam: Present: soft, normal bowel sounds. Absent: distended, tenderness, guarding, rebound, rigid Extremities exam: Present: normal inspection, full ROM, normal capillary refill. Absent: tenderness, pedal edema, joint swelling, calf tenderness Back exam: Present: normal inspection Neurological exam: Present: alert, oriented X3, CN II-XII intact Psychiatric exam: Present: normal affect, normal mood Skin exam: Present: warm, dry, intact, normal color. Absent: rash Course Vital Signs 07/09/22 07/09/22 07/09/22 20:05 20:29 21:46 Temperature 98.1 F Pulse Rate 98 83 Respiratory 22 20 Rate Blood Pressure 113/67 O2 Sat by Pulse 99 Oximetry 07/09/22 07/09/22 07/09/22 21:52 22:08 23:51 Temperature 98.0 F Pulse Rate 78 85 84 Respiratory 18 16 Rate Blood Pressure 107/60 107/62 O2 Sat by Pulse 100 99 Oximetry - Reevaluation(s) Reevaluation #1: 07/10/22 00:07 Medical record is reviewed Reevaluation #2: 07/10/22 00:08 A shunt informed results questions answered Reevaluation #3: 07/10/22 00:08 change in symptoms Reevaluation #4: 07/10/22 00:08 Was pt. sent in by a medical professional or institution? @ -no Did you speak to anyone other than the patient for history? @ -no Did you review nursing and triage notes? @ -agree Were old charts reviewed? @ -no Differential Diagnosis? @ -prior EKG interpreted by me (3pts min.)? @ -yes X-rays interpreted by me (1pt min.)? @ -yes CT interpreted by me (1pt min.)? @ -no U/S interpreted by me (1pt. min.)? @ -no What testing was considered but not performed? (CT, X-rays, U/S, labs)? Why? @ -no What meds were considered but not given? Why? @ -no Did you discuss the management of the patient with other professionals? @ -no Did you reconcile home meds? @ -no Was smoking cessation discussed for >3mins.? @ -no Was critical care preformed (if so, how long)? @ -no Were there social determinants of health that impacted care today? How? (Homelessness, low income, unemployed, alcoholism, drug addiction, transportation, low edu. Level, literacy, decrease access to med. care, [facility], rehab)? @ -no Was there de-escalation of care discussed even if they declined? (Discuss DNR or withdrawal of care, Hospice)? @ -no What co-morbidities impacted this encounter? (DM, HTN, Smoking, COPD, CAD, Cancer, CVA, Hep., AIDS, mental health diagnosis, sleep apnea, morbid obesity)? @ -none Was patient admitted / discharged? @ -61 male to the emergency department for evaluation of persistent weakness shortness of breath significant edema pain malnutrition severe protein calorie malnutrition and significant cancer burden Admitted Undiagnosed new problem with uncertain prognosis? @ -no Drug Therapy requiring intensive monitoring for toxicity (Heparin, Nitro, Insulin, Cardizem)? @ -no Were any procedures done? @ -no Diagnosis/symptom? @ -Weakness, protein calorie malnutrition, cancer pain Acute, or Chronic, or Acute on Chronic? @ -Acute on chronic Uncomplicated (without systemic symptoms) or Complicated (systemic symptoms)? @ -uncomplicated Side effects of treatment? @ -no Exacerbation, Progression, or Severe Exacerbation] @ -no Poses a threat to life or bodily function? @ -yes significant comorbidities from cancer and malnutrition Reevaluation #5: 07/10/22 00:08 Differential Weakness: Hypoglycemia, shock, sepsis, hyponatremia, anemia, infection, [place], ETOH, adverse medicine reaction, overdose, stroke, this is not meant to be an all-inclusive list. - Consultations Consultation #1: Spoke with admitting physicians who agreed to admit the patient Medical Decision Making - Medical Decision Making 61 male to the emergency department for evaluation, patient on chemotherapy for lung cancer having severe body aches pains generalized swelling lower extremity swelling leg swelling arm swelling. Patient is significantly malnourished, low albumin, patient is short of breath and is anemic symptomatic anemia secondary to chemotherapy. Patient be admitted for oncology to see, diuresis for edema - Lab Data Result diagrams: 07/14/22 06:41 07/14/22 06:41 Lab Results 07/09/22 07/09/22 07/09/22 Range/Units 20:37 20:37 20:37 WBC 31.2 H (3.8-10.6) k/uL RBC 2.80 L (4.30-5.90) m/uL Hgb 8.7 L D (13.0-17.5) gm/dL Hct 27.6 L (39.0-53.0) % MCV 98.5 D (80.0-100.0) fL MCH 31.1 (25.0-35.0) pg MCHC 31.5 (31.0-37.0) g/dL RDW 26.2 H (11.5-15.5) % Plt Count 37 L D (150-450) k/uL MPV 11.5 Neutrophils % (Manual) 92 % Band Neuts % (Manual) 3 % Lymphocytes % (Manual) 2 % Monocytes % (Manual) 3 % Neutrophils # (Manual) 29.60 H (1.3-7.7) k/uL Lymphocytes # (Manual) 0.62 L (1.0-4.8) k/uL Monocytes # (Manual) 0.94 (0-1.0) k/uL Nucleated RBCs 0 (0-0) /100 WBC Manual Slide Review Performed Hypochromasia Moderate Anisocytosis Marked Macrocytosis Marked A PT 10.2 (9.0-12.0) sec INR 1.0 (<1.2) APTT 26.8 (22.0-30.0) sec Sodium 130 L (137-145) mmol/L Potassium 5.0 (3.5-5.1) mmol/L Chloride 104 (98-107) mmol/L Carbon Dioxide 19 L (22-30) mmol/L Anion Gap 7 mmol/L BUN 44 H (9-20) mg/dL Creatinine 1.17 (0.66-1.25) mg/dL Est GFR (CKD-EPI)AfAm 78 (>60 ml/min/1.73 sqM) Est GFR (CKD-EPI)NonAf 67 (>60 ml/min/1.73 sqM) Glucose 96 (74-99) mg/dL Plasma Lactic Acid [place] (0.7-2.0) mmol/L Calcium 7.4 L (8.4-10.2) mg/dL Magnesium 2.3 (1.6-2.3) mg/dL Total Bilirubin 0.3 (0.2-1.3) mg/dL AST 60 H (17-59) U/L ALT 61 H (4-49) U/L Alkaline Phosphatase 101 (38-126) U/L Troponin I (0.000-0.034) ng/mL NT-Pro-B Natriuret Pep pg/mL Total Protein 5.5 L (6.3-8.2) g/dL Albumin 2.6 L (3.5-5.0) g/dL 07/09/22 07/09/22 07/09/22 Range/Units 20:37 20:37 20:56 WBC (3.8-10.6) k/uL RBC (4.30-5.90) m/uL Hgb (13.0-17.5) gm/dL Hct (39.0-53.0) % MCV (80.0-100.0) fL MCH (25.0-35.0) pg MCHC (31.0-37.0) g/dL RDW (11.5-15.5) % Plt Count (150-450) k/uL MPV Neutrophils % (Manual) % Band Neuts % (Manual) % Lymphocytes % (Manual) % Monocytes % (Manual) % Neutrophils # (Manual) (1.3-7.7) k/uL Lymphocytes # (Manual) (1.0-4.8) k/uL Monocytes # (Manual) (0-1.0) k/uL Nucleated RBCs (0-0) /100 WBC Manual Slide Review Hypochromasia Anisocytosis Macrocytosis PT (9.0-12.0) sec INR (<1.2) APTT (22.0-30.0) sec Sodium (137-145) mmol/L Potassium (3.5-5.1) mmol/L Chloride (98-107) mmol/L Carbon Dioxide (22-30) mmol/L Anion Gap mmol/L BUN (9-20) mg/dL Creatinine (0.66-1.25) mg/dL Est GFR (CKD-EPI)AfAm (>60 ml/min/1.73 sqM) Est GFR (CKD-EPI)NonAf (>60 ml/min/1.73 sqM) Glucose (74-99) mg/dL Plasma Lactic Acid [place] 1.4 (0.7-2.0) mmol/L Calcium (8.4-10.2) mg/dL Magnesium (1.6-2.3) mg/dL Total Bilirubin (0.2-1.3) mg/dL AST (17-59) U/L ALT (4-49) U/L Alkaline Phosphatase (38-126) U/L Troponin I <0.012 (0.000-0.034) ng/mL NT-Pro-B Natriuret Pep 445 pg/mL Total Protein (6.3-8.2) g/dL Albumin (3.5-5.0) g/dL - EKG Data -: EKG Interpreted by Me (EKG sinus 82 MA 144 QRS 78 QTc 388) - Radiology Data Radiology results: report reviewed (Chest x-rays negative for acute disease), image reviewed Disposition Clinical Impression: Anasarca, Anemia, Lung cancer, Severe protein-calorie malnutrition Disposition: ADMITTED IP TO THIS HOSP Condition: Good Time of Disposition: 23:00
[2022-07-09 20:56] LABS: Anisocytosis Marked; HCT 27.6 % (39.0-53.0); Hypochromasia Moderate; MCH 31.1 pg (25.0-35.0); MCHC 31.5 g/dL (31.0-37.0); Macrocytosis Marked; Mean Platelet Volume 11.5; WBC 31.2 k/uL (3.8-10.6)
[2022-07-09 21:06] LABS: Partial Thromboplastin Time 26.8 sec (22.0-30.0); Prothrombin Time 10.2 sec (9.0-12.0)
[2022-07-09 21:10] LABS: Albumin 2.6 g/dL (3.5-5.0); Calcium 7.4 mg/dL (8.4-10.2); Magnesium 2.3 mg/dL (1.6-2.3); Total Bilirubin 0.3 mg/dL (0.2-1.3); Total Protein 5.5 g/dL (6.3-8.2)
--- NOTE | 2022-07-09 21:30 | XR ---
EXAMINATION TYPE: XR chest 1V portable DATE OF EXAM: 07/09/2022 COMPARISON: 03/04/2021 INDICATION: Increased shortness of breath TECHNIQUE: Single frontal view of the chest is obtained. FINDINGS: The heart size is normal. The pulmonary vasculature is normal. Increased lung markings are in the right upper lung field. This appears less focal than the compariso n. Findings could be compatible with the patient's known lung cancer. IMPRESSION: 1. There are increased linear lung markings in the right upper lung field which appear improved from the comparison study likely related to the patient's known lung cancer.
[2022-07-09 21:34] LABS: HGB 8.7 gm/dL (13.0-17.5); RDW 26.2 % (11.5-15.5)
[2022-07-09 21:35] LABS: MCV 98.5 fL (80.0-100.0)
[2022-07-09 21:40] LABS: Band Neutrophils % 3 %; Lymphocytes # (M) 0.62 k/uL (1.0-4.8); Monocytes # (M) 0.94 k/uL (0-1.0); Neutrophils % (M) 92 %; Nucleated Red Blood Cells 0 /100 WBC (0-0); Total Cells Counted 100
[2022-07-09 21:41] LABS: Platelet Count 37 k/uL (150-450)
[2022-07-09] MEDS ORDERED: ONDANSETRON 4 MG/2 ML VIAL IVP PRN (23:00)
[2022-07-09] MEDS ORDERED: MORPHINE SULFATE 4 MG/ML SYRINGE IV PRN (23:00)
[2022-07-09] MEDS ORDERED: NALOXONE 0.4 MG/ML 1 ML VIAL IV PRN (23:00)
[2022-07-09] MEDS ORDERED: FUROSEMIDE 10 MG/ML 10 ML VIAL IV STA (23:03)
--- NOTE | 2022-07-10 01:33 | P.HPIM ---
History of Present Illness H&P Date: 07/10/22 The patient is a 61-year-old male with a PMH of stage IV squamous cell lung cancer status post multiple rounds of chemotherapy (currently on carboplatin since 04/27/22), and coronary artery disease who presents to the emergency room with complaints of diffuse swelling and shortness of breath. The patient reports that he noticed gradually worsening edema throughout his body over the past few days. He also reports experiencing orthopnea with decreased exercise tolerance. He reports that his legs ache due to the edema. He denied experiencing chest discomfort. Denied nausea, vomiting, diaphoresis. Also denied fever or chills or cough. Denied blood in stools or bleeding elsewhere. Patient reports that he continues to follow with Dr. Dolan. In the emergency room, chest x-ray revealed findings improved lung cancer findings. EKG revealed sinus rhythm with sinus arrhythmia at [address]/T-wave changes noted as reviewed by me. Laboratory evaluation was remarkable for albumin 2.6, total protein 5.5, proBNP 445, leukocytosis of 31.2, hemoglobin 8.7 (previously 8.1 on 05/11) platelet count 37 (previously 31 on 05/11), sodium 130, CO2 19, BUN 44, creatinine 1.17, AST 60, and ALT 61. ED documentation reviewed and case discussed with ED provider. Review of systems: Pertinent positives and negatives as discussed in HPI, a complete review of systems was performed and all other systems are negative. Physical examination: Vital signs reviewed General: non toxic, no distress, appears at stated age, normal weight Derm: no unusual rashes/lesions, warm Head: atraumatic, normocephalic, symmetric Eyes: EOMI, no lid lag, anicteric sclera, pupils equal round reactive to light ENT: Nose and ears atraumatic Neck: No cervical lymphadenopathy, trachea midline, supple Mouth: no lip lesion, mucus membranes moist Cardiovascular: S1S2 reg, no murmur, positive dorsalis pedis pulse bilateral, anasarca noted including his bilateral upper extremities to shoulders Lungs: CTA bilateral, no rhonchi, no rales, no accessory muscle use Abdominal: soft, nontender to palpation, no guarding Ext: muscle strength 5 out of 5 in all 4 extremities grossly, no gross muscle atrophy, no contractures, Neuro: CN II-XI grossly intact, no gross focal neuro deficits Psych: Alert, oriented, appropriate affect Assessment: Anasarca, suspect due to hyperalbuminemia in setting of chemotherapy Stage IV squamous cell lung cancer Thrombocytopenia Normocytic anemia Hyponatremia Imaging: In the emergency room, chest x-ray revealed findings improved lung cancer findings. EKG revealed sinus rhythm with sinus arrhythmia at [address]/T-wave changes noted as reviewed by me. Data Review: Laboratory evaluation was remarkable for albumin 2.6, total protein 5.5, proBNP 445, leukocytosis of 31.2, hemoglobin 8.7 (previously 8.1 on 05/11) platelet count 37 (previously 31 on 05/11), sodium 130, CO2 19, BUN 44, creatinine 1.17, AST 60, and ALT 61. Plan: Obtain echocardiogram Continue with Lasix 40 mg IV every 12 hourly Daily weights, intake output Oncology consult DVT prophylaxis: Lovenox The patient is admitted with an anticipated greater than 2 midnight stay for evaluation of anasarca CODE STATUS: Full Code Discussed with: Patient Anticipated discharge place: Home Past Medical History Past Medical History: Cancer, Chest Pain / Angina, COPD, Hyperlipidemia, Hypertension, Myocardial Infarction ([place]), Pneumonia Additional Past Medical History / Comment(s): lung cancer-stage 4 non small cell Last Myocardial Infarction Date:: 2017 History of Any Multi-Drug Resistant Organisms: MRSA Date of last positivie culture/infection: 12/23/2013 MDRO Source:: Face Past Surgical History: Heart Catheterization With Stent Additional Past Surgical History / Comment(s): I&D of R inframandibular abscess. 3 cardiac stents. Past Anesthesia/Blood Transfusion Reactions: No Reported Reaction Date of Last Stent Placement:: 2017 Past Psychological History: No Psychological Hx Reported Additional Psychological History / Comment(s): Pt states he was released from [facility] recently (driving on suspended license) and during his time in [facility] he lost his job and insurance. He resides with his son. He uses no assistive devices. He no longer drives, his son takes him places. Smoking Status: Former smoker Past Alcohol Use History: Rare Additional Past Alcohol Use History / Comment(s): . Past Drug Use History: None Reported Additional Drug Use History / Comment(s): . - Past Family History Father Family Medical History: No Reported History Additional Family Medical History / Comment(s): Father of "natural causes" at the age of 79yrs. Mother Family Medical History: COPD, Coronary Artery Disease (CAD) Additional Family Medical History / Comment(s): Mother is 76yrs old. She has had several MIs, 6 cardiac stents and a 4 vessel CABG. Medications and Allergies Home Medications Medication Instructions Recorded Confirmed Type Aspirin 81 mg PO DAILY #30 chew 03/05/17 07/09/22 Rx Atorvastatin [Lipitor] 80 mg PO DAILY 03/04/21 07/09/22 History Metoprolol Tartrate [Lopressor] 25 mg PO BID 03/04/21 07/09/22 History HYDROcodone/APAP 10-325MG [[place] 1 tab PO QID 05/09/22 07/09/22 History 10-325] Ondansetron [Zofran] 4 mg PO Q6H PRN 05/09/22 07/09/22 History lisinopriL [Zestril] 5 mg PO DAILY 05/09/22 07/09/22 History Oxymetazoline 0.05% Nasl [place] 2 spray NASAL TID PRN 7 Days #1 05/11/22 07/09/22 Rx [Afrin 0.05% Nasal [place]] each Furosemide [Lasix] 40 mg PO DAILY 07/09/22 07/09/22 History Spiriva Respimat 1.25mcg/Actuation 2 puff INHALATION RT-HS 07/09/22 07/09/22 History Mist Allergies Allergy/AdvReac Type Severity Reaction Status Date / Time Penicillins Allergy Dyspnea & Verified 07/09/22 21:19 Hives all over Physical Exam Vitals: Vital Signs Temp Pulse Pulse Resp BP BP Pulse Ox 07/10/22 00:51 97.4 F L 84 16 106/70 96 07/09/22 23:51 98.0 F 84 16 107/62 99 07/09/22 22:08 85 18 107/60 100 07/09/22 21:52 78 07/09/22 21:46 83 07/09/22 20:29 20 07/09/22 20:05 98.1 F 98 22 113/67 99 Intake and Output 07/09/22 07/09/22 07/10/22 14:59 22:59 06:59 Other: Weight 83.915 kg 78 kg Results CBC & Chem 7: 07/09/22 20:37 05/26/23 20:37 Labs: Abnormal Lab Results - Last 24 Hours (Table) 07/09/22 07/09/22 Range/Units 20:37 20:37 WBC 31.2 H (3.8-10.6) k/uL RBC 2.80 L (4.30-5.90) m/uL Hgb 8.7 L D (13.0-17.5) gm/dL Hct 27.6 L (39.0-53.0) % RDW 26.2 H (11.5-15.5) % Plt Count 37 L D (150-450) k/uL Neutrophils # (Manual) 29.60 H (1.3-7.7) k/uL Lymphocytes # (Manual) 0.62 L (1.0-4.8) k/uL Macrocytosis Marked A Sodium 130 L (137-145) mmol/L Carbon Dioxide 19 L (22-30) mmol/L BUN 44 H (9-20) mg/dL Calcium 7.4 L (8.4-10.2) mg/dL AST 60 H (17-59) U/L ALT 61 H (4-49) U/L Total Protein 5.5 L (6.3-8.2) g/dL Albumin 2.6 L (3.5-5.0) g/dL Thrombosis Risk Factor Assmnt - Choose All That Apply Any of the Below Risk Factors Present?: Yes Each Factor Represents 1 point: Abnormal pulmonary function (COPD), Age 41-60 years, Swollen legs (current) Other Risk Factors: Yes Each Risk Factor Represents 2 Points: Malignancy Other congenital or acquired thrombophilia - If yes, enter type in comment: No Thrombosis Risk Factor Assessment Total Risk Factor Score: 5 Thrombosis Risk Factor Assessment Level: High Risk
[2022-07-10] MEDS ORDERED: lisinopriL 5 MG TAB PO SCH (09:00)
[2022-07-10] MEDS ORDERED: OXYMETAZOLINE 0.05% NASL SPRAY 1 SPRAY BOTTLE NASAL PRN (09:00)
[2022-07-10] MEDS: HYDROcodone/APAP 10-325MG 1 EACH TAB PO SCH ×4 (09:14→21:56)
[2022-07-10] MEDS: ASPIRIN 81 MG PO SCH (09:15)
[2022-07-10] MEDS: ATORVASTATIN 80 MG TAB PO SCH (09:15)
[2022-07-10] MEDS: FUROSEMIDE 10 MG/ML 4 ML VIAL IV SCH ×2 (09:15→19:55)
[2022-07-10] MEDS: METOPROLOL TARTRATE 25 MG TAB PO SCH ×2 (09:15→21:56)
[2022-07-10 10:24] LABS: African American GFR (CKD) 75.7 (60.0-200.0); Albumin 2.8 g/dL (3.8-4.9); Albumin/Globulin Ratio 1.12 (1.60-3.17); Anion Gap 7.2 mmol/L (10.00-18.00); BUN/Creat Ratio 40.92 Ratio (12.00-20.00); Blood Urea Nitrogen 49.1 mg/dL (9.0-27.0); Carbon Dioxide 21.8 mmol/L (20.0-27.5); Globulin 2.5 g/dL (1.6-3.3); Non-African American GFR(CKD) 65.3 (60.0-200.0); Potassium 6.2 mmol/L (3.5-5.5); Total Bilirubin 0.3 mg/dL (0.30-1.20); Total Protein 5.3 g/dL (6.2-8.2)
[2022-07-10 10:56] LABS: HGB 8.2 g/dL (13.0-17.0); MCH 30.9 pg (27.0-32.0); MCHC 31.5 g/dL (32.0-37.0); MCV 98.1 fL (80.0-97.0); NRBC Per 100 WBC 0 /100 WBCS (0.0-0.0); Platelet Count 31 X 10*3/uL (140-440); RBC 2.65 X 10*6/uL (4.40-5.60); RDW 28.4 % (11.5-14.5); WBC 31.32 X 10*3/uL (4.50-10.00)
[2022-07-10] MEDS ORDERED: CALCIUM GLUCONATE IN NACL 1 GM in SALINE 1 100ML.BAG IVPB ONE (11:07)
[2022-07-10] MEDS ORDERED: DEXTROSE 50% SYRINGE 50 ML IVP STA (11:08)
[2022-07-10] MEDS ORDERED: INSULIN REGULAR 100 UNIT/ML VIAL (IV) IV ONE (11:08)
[2022-07-10 11:13] LABS: Anisocytosis (M) 3+; Band Neutrophils % 1 %; Basophils # (M) 0 X 10*3/uL (0.00-0.10); Eosinophils # (M) 0 X 10*3/uL (0.04-0.35); Hypochromasia (M) 2+; Immature Platelet Fraction 14.1 % (1.1-6.1); Lymphocytes # (M) 0.94 X 10*3/uL (0.90-5.00); Macrocytosis (M) 2+; Metamyelocytes % 2 % (0-0); Monocytes # (M) 0.31 X 10*3/uL (0.20-1.00); Neutrophils # (M) 29.44 X 10*3/uL (2.00-8.90); Neutrophils % (M) 93 %
[2022-07-10] MEDS ORDERED: SODIUM POLYSTYRENE SULFONATE 15 GM/60 ML BOTTLE PO STA (11:30)
[2022-07-10] MEDS ORDERED: ALBUTEROL NEBULIZED 2.5 MG/3 ML INHALATION STA (11:31)
--- NOTE | 2022-07-10 12:22 | P.CONS ---
History of Present Illness - Reason for Consult Consult date: 07/10/22 History of lung cancer - Chief Complaint Swelling - History of Present Illness Mr. 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 He was started on cycle 1 of carboplatin/gemcitabine on 04/27/2022 and most recently completed cycle 4 on 07/06/2022 who presents with increased swelling. He notes this started approximately 3 weeks ago. He was prescribed oral Lasix 40 mg daily by his primary oncologist Dr. Hooys, which seem to sig nificantly help the swelling in his legs. When he initially started Lasix, he had significant urine output, which has decreased over the past week. During this time, has had progressively increased swelling in the lower extremities along with the skin of the hands and the upper extremities, which got worse after his most recent gemcitabine treatment. He also reports having orthopnea, which is new over the past 3 to 4 weeks along with dyspnea on exertion. He denies any recent illness, new medications, chest pain, nausea, vomiting, or diarrhea. Given the progressive swelling, he presented to the ED for additional management recommendations In the ED, he was hemodynamically stable and afebrile. CBC noted WBC 31.2 (ANC 29.6), hemoglobin 8.7, platelets 37. CMP was notable for creatinine 1.17 (baseline 0.7-0.9), AST 60, ALT 61, albumin 2.6, total protein 5.5. BNP was $45 with negative troponin. Chest x-ray noted no acute consolidation or significant pulmonary edema with linear lung markings in the right upper lobe that are improved likely secondary to malignancy. He received Solu-Medrol 125 mg IV x1, Lasix 60 mg IV x1 and DuoNeb treatment. He was admitted to internal medicine for additional management recommendations. He is currently on Lasix 40 mg IV every 12 hours with plan to obtain echocardiogram. Review of Systems 14 point review of systems was conducted with pertinent positives and negatives as noted per HPI Past Medical History Past Medical History: Cancer, Chest Pain / Angina, COPD, Hyperlipidemia, Hypertension, Myocardial Infarction ([place]), Pneumonia Additional Past Medical History / Comment(s): lung cancer-stage 4 non small cell Last Myocardial Infarction Date:: 2017 History of Any Multi-Drug Resistant Organisms: MRSA Year Discovered:: 12/23/2013 MDRO Source:: Face Past Surgical History: Heart Catheterization With Stent Additional Past Surgical History / Comment(s): I&D of R inframandibular abscess. 3 cardiac stents. Past Anesthesia/Blood Transfusion Reactions: No Reported Reaction Date of Last Stent Placement:: 2017 Past Psychological History: No Psychological Hx Reported Additional Psychological History / Comment(s): Pt states he was released from care home recently (driving on suspended license) and during his time in care home he lost his job and insurance. He resides with his son. He uses no assistive devices. He no longer drives, his son takes him places. Smoking Status: Former smoker Past Alcohol Use History: Rare Additional Past Alcohol Use History / Comment(s): . Past Drug Use History: None Reported Additional Drug Use History / Comment(s): . - Past Family History Father Family Medical History: No Reported History Additional Family Medical History / Comment(s): Father of "natural causes" at the age of 79yrs. Mother Family Medical History: COPD, Coronary Artery Disease (CAD) Additional Family Medical History / Comment(s): Mother is 76yrs old. She has had several MIs, 6 cardiac stents and a 4 vessel CABG. Medications and Allergies Home Medications Medication Instructions Recorded Confirmed Type Aspirin 81 mg PO DAILY #30 chew 03/05/17 07/09/22 Rx Atorvastatin [Lipitor] 80 mg PO DAILY 03/04/21 07/09/22 History Metoprolol Tartrate [Lopressor] 25 mg PO BID 03/04/21 07/09/22 History HYDROcodone/APAP 10-325MG [[place] 1 tab PO QID 05/09/22 07/09/22 History 10-325] Ondansetron [Zofran] 4 mg PO Q6H PRN 05/09/22 07/09/22 History lisinopriL [Zestril] 5 mg PO DAILY 05/09/22 07/09/22 History Oxymetazoline 0.05% Nasl [place] 2 spray NASAL TID PRN 7 Days #1 05/11/22 07/09/22 Rx [Afrin 0.05% Nasal [place]] each Furosemide [Lasix] 40 mg PO DAILY 07/09/22 07/09/22 History Spiriva Respimat 1.25mcg/Actuation 2 puff INHALATION RT-HS 07/09/22 07/09/22 His tory Mist Allergies Allergy/AdvReac Type Severity Reaction Status Date / Time Penicillins Allergy Dyspnea & Verified 07/09/22 21:19 Hives all over Physical Exam Vitals: Vital Signs Temp Pulse Pulse Resp BP BP Pulse Ox 07/10/22 09:24 98 07/10/22 07:20 99.7 F H 89 16 99/60 98 07/10/22 00:51 97.4 F L 84 16 106/70 96 07/09/22 23:51 98.0 F 84 16 107/62 99 07/09/22 22:08 85 18 107/60 100 07/09/22 21:52 78 07/09/22 21:46 83 07/09/22 20:29 20 07/09/22 20:05 98.1 F 98 22 113/67 99 Intake and Output 07/09/22 07/10/22 07/10/22 22:59 06:59 14:59 Other: Weight 83.915 kg 78.1 kg - Constitutional General appearance: cooperative, no acute distress - EENT Eyes: EOMI - Respiratory Respiratory: bilateral: CTA - Cardiovascular Peripheral edema noted in the hands bilaterally along with mild puffiness of the face Rhythm: regular leg Peripheral Edema: bilateral: 1+ - Gastrointestinal General gastrointestinal: no distended, normal bowel sounds, soft, no tenderness - Integumentary Integumentary: no rash - Neurologic Neurologic: CNII-XII intact - Psychiatric Psychiatric: A&O x's 3, appropriate affect Results CBC & Chem 7: 07/10/22 05:49 07/10/22 05:49 Labs: Abnormal Lab Results - Last 24 Hours (Table) 07/09/22 07/09/22 07/10/22 Range/Units 20:37 20:37 05:49 WBC 31.2 H 31.32 H (3.8-10.6) k/uL RBC 2.80 L 2.65 L (4.30-5.90) m/uL Hgb 8.7 L D 8.2 L (13.0-17.5) gm/dL Hct 27.6 L 26.0 L (39.0-53.0) % MCV 98.1 H (80.0-97.0) fL MCHC 31.5 L (32.0-37.0) g/dL RDW 26.2 H 28.4 H (11.5-15.5) % Plt Count 37 L D 31 L (150-450) k/uL Plt Count Comment A Metamyelocytes % 2 H (0-0) % Neutrophils # (Manual) 29.60 H 29.44 H (1.3-7.7) k/uL Lymphocytes # (Manual) 0.62 L (1.0-4.8) k/uL Eosinophils # (Manual) 0 L (0.04-0.35) X 10*3/uL Immature Plt Fraction 14.1 H (1.1-6.1) % Macrocytosis Marked A Sodium 130 L (137-145) mmol/L Potassium (3.5-5.5) mmol/L Carbon Dioxide 19 L (22-30) mmol/L Anion Gap (10.00-18.00) mmol/L BUN 44 H (9-20) mg/dL BUN/Creatinine Ratio (12.00-20.00) Ratio Glucose (70-110) mg/dL Calcium 7.4 L (8.4-10.2) mg/dL AST 60 H (17-59) U/L ALT 61 H (4-49) U/L Total Protein 5.5 L (6.3-8.2) g/dL Albumin 2.6 L (3.5-5.0) g/dL Albumin/Globulin Ratio (1.60-3.17) g/dL 07/10/22 Range/Units 05:49 WBC (3.8-10.6) k/uL RBC (4.30-5.90) m/uL Hgb (13.0-17.5) gm/dL Hct (39.0-53.0) % MCV (80.0-97.0) fL MCHC (32.0-37.0) g/dL RDW (11.5-15.5) % Plt Count (150-450) k/uL Plt Count Comment Metamyelocytes % (0-0) % Neutrophils # (Manual) (1.3-7.7) k/uL Lymphocytes # (Manual) (1.0-4.8) k/uL Eosinophils # (Manual) (0.04-0.35) X 10*3/uL Immature Plt Fraction (1.1-6.1) % Macrocytosis Sodium 131 L (137-145) mmol/L Potassium 6.2 H* (3.5-5.5) mmol/L Carbon Dioxide (22-30) mmol/L Anion Gap 7.20 L (10.00-18.00) mmol/L BUN 49.1 H (9-20) mg/dL BUN/Creatinine Ratio 40.92 H (12.00-20.00) Ratio Glucose 138 H (70-110) mg/dL Calcium 8.0 L (8.4-10.2) mg/dL AST 59 H (17-59) U/L ALT 72 H (4-49) U/L Total Protein 5.3 L (6.3-8.2) g/dL Albumin 2.8 L (3.5-5.0) g/dL Albumin/Globulin Ratio 1.12 L (1.60-3.17) g/dL Abdominal x-ray: report reviewed, image reviewed Assessment and Plan (1) Edema due to hypoalbuminemia Current Visit: Yes Status: Acute Code(s): E88.09 - OTH DISORDERS OF PLASMA- PROTEIN METABOLISM, NEC SNOMED Code(s): 910567440 (2) Anemia associated with chemotherapy Current Visit: Yes Status: Acute Code(s): D64.81 - ANEMIA DUE TO ANTINEOPLAS TIC CHEMOTHERAPY; T45.1X5A - ADVERSE EFFECT OF ANTINEOPLASTIC AND IMMUNOSUP DRUGS, INIT SNOMED Code(s): 483521316381352 (3) Lung cancer Current Visit: Yes Status: Chronic Code(s): C34.90 - MALIGNANT NEOPLASM OF UNSP PART OF UNSP BRONCHUS OR LUNG SNOMED Code(s): 170950293 (4) Leukocytosis Current Visit: No Status: Acute Code(s): D72.829 - ELEVATED WHITE BLOOD CELL COUNT, UNSPECIFIED SNOMED Code(s): 336223607 Plan: #Edema -Initially noted 3 to 4 weeks ago and improved with oral Lasix 40 mg outpatient -Became progressively worse over the past week, and felt to be acutely worse after last gemcitabine treatment on 07/06/2022 -Noted development of orthopnea and dyspnea on exertion over the past 3 to 4 weeks -Differential diagnosis includes CHF (HFrEF) secondary to his history of CAD along with potentially gemcitabine induced edema. Hypoalbuminemia secondary to decreased oral intake malignancy is also likely to be contributing -Agree with obtaining echocardiogram and IV diuretics -If there is no evidence of CHF on echocardiogram, short course of dexamethasone 8 mg twice daily could be considered to treat gemcitabine induced peripheral edema if there is no or minimal response to Lasix #Chemotherapy-induced anemia and thrombocytopenia, neutrophilic leukocytosis -Neutrophilic leukocytosis is due to Neulasta, there is no evidence of infection at this time -Anemia and thrombocytopenia are secondary to carboplatin/gemcitabine treatment, with thrombocytopenia being particularly due to gemcitabine -CBC with differential daily -Transfuse for hemoglobin less than 7 and/or platelet count less than 10,000 or bleeding #Locally advanced/unresectable non-small cell lung cancer -Treated with single agent pembrolizumab from February 2021 through March 2022 with noted disease progression at that time -Initiated carboplatin/gemcitabine on 04/27/2022 and recently completed cycle 4 on 07/06/2022 -Staging CT scans performed on 07/09/2022 with official read currently pending -No acute inventions for lung cancer standpoint at this time -Follow-up with his primary oncologist Dr. Hoyos to review the results
[2022-07-10 12:31] LABS: Glucose,Whole Blood 221 mg/dL (70-110)
--- NOTE | 2022-07-10 12:39 | P.PN ---
Subjective Progress Note Date: 07/10/22 61-year-old male with a PMH of stage IV squamous cell lung cancer status post multiple rounds of chemotherapy (currently on carboplatin since 04/27/22), and coronary artery disease who presents to the emergency room with complaints of diffuse swelling and shortness of breath. The patient reports that he noticed gradually worsening edema throughout his body over the past few days. He also reports experiencing orthopnea with decreased exercise tolerance. In the emergency room, chest x-ray revealed findings improved lung cancer findings. EKG revealed sinus rhythm with sinus arrhythmia at [address]/T-wave changes noted. Laboratory evaluation was remarkable for albumin 2.6, total protein 5.5, proBNP 445, leukocytosis of 31.2, hemoglobin 8.7 (previously 8.1 on 05/11) platelet count 37 (previously 31 on 05/11), sodium 130, CO2 19, BUN 44, creatinine 1.17, AST 60, and ALT 61. 07/10 Patient was seen and examined. He reports chest pain radiating to the left arm. Associated symptoms include palpitations. He states that these symptoms started after he received Lasix through the IV. CBC this morning shows a leukocytosis of 31.32, hemoglobin of 8 point with MCV of 98.1 and platelet count of 31. CMP shows sodium of 131, potassium of 6.2, BUN of 49.1, glucose of 138, calcium of 8, AST of 59, ALT of 72 and albumin of 2.8. General: non toxic, mild distress, appears at stated age, anasarca Derm: warm, dry Head: atraumatic, normocephalic, symmetric Eyes: EOMI, no lid lag, anicteric sclera Cardiovascular: S1S2 reg, no murmur Lungs: CTA bilateral, no rhonchi, no rales , no accessory muscle use Ext: no gross muscle atrophy, no contractures Neuro: no focal neuro deficits Psych: Alert, oriented, appropriate affect Chest pain with history of CAD Hyperkalemia Anasarca, suspect due to hypoalbuminemia in setting of chemotherapy versus systolic CHF exacerbation Hyponatremia Leukocytosis likely related to Neulasta Thrombocytopenia and Normocytic anemia likely related to chemotherapy Stage IV squamous cell lung cancer Review of cardiac cath in 2018 shows critical stenosis of the first obtuse marginal, proximal RCA and distal RCA. Echocardiogram in 2018 shows EF 40-45% with hypokinetic wall motion. Obtain Troponin and EKG STAT. Currently on ASA 81 mg PO QD, Lipitor 80 mg PO QHS and Metoprolol 25 mg PO BID. Patient placed on telemetry monitoring. Repeat echocardiogram ordered. Continue Lasix 40 mg IV BID. Strict intake and outtake. Daily weights. Cardiology consult. Potassium of 6.2. Calcium gluconate 1g IV ordered. 10 units insulin IV along with D50. 5 mg Albuterol nebulized. 30 g Kayexalate. Discontinue Lisinopril. Lasix as above. Repeat potassium at 2PM. Oncology consult. Objective - Vital Signs Vital signs: Vital Signs Temp 99.7 F H 07/10/22 07:20 Pulse 84 07/10/22 12:31 Resp 16 07/10/22 07:20 BP 99/60 07/10/22 07:20 Pulse Ox 98 07/10/22 09:24 FiO2 Intake & Output 07/09/22 07/10/22 07/10/22 18:59 06:59 18:59 Weight 78.1 kg - Labs CBC & Chem 7: 07/10/22 05:49 07/10/22 05:49 Labs: Abnormal Lab Results - Last 24 Hours (Table) 07/09/22 07/09/22 07/10/22 Range/Units 20:37 20:37 05:49 WBC 31.2 H 31.32 H (3.8-10.6) k/uL RBC 2.80 L 2.65 L (4.30-5.90) m/uL Hgb 8.7 L D 8.2 L (13.0-17.5) gm/dL Hct 27.6 L 26.0 L (39.0-53.0) % MCV 98.1 H (80.0-97.0) fL MCHC 31.5 L (32.0-37.0) g/dL RDW 26.2 H 28.4 H (11.5-15.5) % Plt Count 37 L D 31 L (150-450) k/uL Plt Count Comment A Metamyelocytes % 2 H (0-0) % Neutrophils # (Manual) 29.60 H 29.44 H (1.3-7.7) k/uL Lymphocytes # (Manual) 0.62 L (1.0-4.8) k/uL Eosinophils # (Manual) 0 L (0.04-0.35) X 10*3/uL Immature Plt Fraction 14.1 H (1.1-6.1) % Macrocytosis Marked A Sodium 130 L (137-145) mmol/L Potassium (3.5-5.5) mmol/L Carbon Dioxide 19 L (22-30) mmol/L Anion Gap (10.00-18.00) mmol/L BUN 44 H (9-20) mg/dL BUN/Creatinine Ratio (12.00-20.00) Ratio Glucose (70-110) mg/dL POC Glucose (mg/dL) (70-110) mg/dL Calcium 7.4 L (8.4-10.2) mg/dL AST 60 H (17-59) U/L ALT 61 H (4-49) U/L Total Protein 5.5 L (6.3-8.2) g/dL Albumin 2.6 L (3.5-5.0) g/dL Albumin/Globulin Ratio (1.60-3.17) g/dL 07/10/22 07/10/22 Range/Units 05:49 12:30 WBC (3.8-10.6) k/uL RBC (4.30-5.90) m/uL Hgb (13.0-17.5) gm/dL Hct (39.0-53.0) % MCV (80.0-97.0) fL MCHC (32.0-37.0) g/dL RDW (11.5-15.5) % Plt Count (150-450) k/uL Plt Count Comment Metamyelocytes % (0-0) % Neutrophils # (Manual) (1.3-7.7) k/uL Lymphocytes # (Manual) (1.0-4.8) k/uL Eosinophils # (Manual) (0.04-0.35) X 10*3/uL Immature Plt Fraction (1.1-6.1) % Macrocytosis Sodium 131 L (137-145) mmol/L Potassium 6.2 H* (3.5-5.5) mmol/L Carbon Dioxide (22-30) mmol/L Anion Gap 7.20 L (10.00-18.00) mmol/L BUN 49.1 H (9-20) mg/dL BUN/Creatinine Ratio 40.92 H (12.00-20.00) Ratio Glucose 138 H (70-110) mg/dL POC Glucose (mg/dL) 221 H (70-110) mg/dL Calcium 8.0 L (8.4-10.2) mg/dL AST 59 H (17-59) U/L ALT 72 H (4-49) U/L Total Protein 5.3 L (6.3-8.2) g/dL Albumin 2.8 L (3.5-5.0) g/dL Albumin/Globulin Ratio 1.12 L (1.60-3.17) g/dL
[2022-07-10 13:33] LABS: Glucose,Whole Blood 220 mg/dL (70-110)
[2022-07-10 14:38] LABS: Glucose,Whole Blood 177 mg/dL (70-110)
[2022-07-10 15:35] LABS: Glucose,Whole Blood 169 mg/dL (70-110)
--- NOTE | 2022-07-10 17:35 | CA ---
Transthoracic Echo Report Name: Fracisco Rene Age: 61 Gender: M : 1960 Exam Date: 07/10/2022 14:52 Exam Location: [facility] Ht (in): 73 Wt (lb): 172 Ordering Physician: Jerome Sow MD Attending/Referring Phys: Blow Down Operator Katie Dangelo RDCS Procedure CPT: Indications: CP, Anasarca Cardiac Hx: Technical Quality: Fair Contrast 1: Total Dose (mL): Contrast 2: Total Dose (mL): MEASUREMENTS (Male / Female) Normal Values 2D ECHO LV Diastolic Diameter PLAX 4.7 cm 4.2 - 5.9 / 3.9 - 5.3 cm LV Systolic Diameter PLAX 3.0 cm IVS Diastolic Thickness 1.1 cm 0.6 - 1.0 / 0.6 - 0.9 cm LVPW Diastolic Thickness 1.6 cm 0.6 - 1.0 / 0.6 - 0.9 cm LV Relative Wall Thickness 0.6 RV Internal Dim ED PLAX 3.6 cm LA Volume 57.3 cm??? 18 - 58 / 22 - 52 cm??? M-MODE Aortic Root Diameter MM 3.2 cm LA Systolic Diameter MM 4.7 cm LA Ao Ratio MM 1.5 AV Cusp Separation MM 1.6 cm DOPPLER AV Peak Velocity 193.6 cm/s AV Peak Gradient 15.0 mmHg AV Mean Velocity 125.9 cm/s AV Mean Gradient 7.3 mmHg AV Velocity Time Integral 38.3 cm LVOT Peak Velocity 134.1 cm/s LVOT Peak Gradient 7.2 mmHg MV Area PHT 4.6 cm??? Mitral E Point Velocity 134.1 cm/s Mitral A Point Velocity 96.9 cm/s Mitral E to A Ratio 1.4 MV Deceleration Time 165.7 ms MV E' Velocity 10.9 cm/s Mitral E to MV E' Ratio 12.3 TR Peak Velocity 332.0 cm/s TR Peak Gradient 44.1 mmHg Right Ventricular Systolic Press 49.1 mmHg FINDINGS Left Ventricle Mildly increased left ventricular wall thickness. Left ventricular cavity size normal. Normal left ventricular systolic function with no obvious regional wall motion abnormalities. Normal left ventricular diastolic filling pattern. Left ventricular ejection fraction is estimated at 55-60 %. Right Ventricle Normal right ventricular size and function. Moderate pulmonary hypertension. Right ventricular systolic pressure estimated at 49 mm hg. Right Atrium Normal right atrial size. Left Atrium Normal left atrial size. Mitral Valve Structurally normal mitral valve. Mild mitral regurgitation. Aortic Valve No aortic valve stenosis or regurgitation. Tricuspid Valve Structurally normal tricuspid valve. Mild tricuspid regurgitation. Pulmonic Valve Trace pulmonic regurgitation. Pericardium No pericardial effusion. Aorta Normal size aortic root and proximal ascending aorta. CONCLUSIONS LVH with preserved systolic function Previewed by: Dr. Tay Beaulieu MD (Electronically Signed) Final Date: 10 Jul 2022 17:34
[2022-07-10 17:41] LABS: Glucose,Whole Blood 107 mg/dL (70-110)
[2022-07-10] MEDS: IPRATROPIUM 0.5 MG/2.5 ML NEBU INHALATION SCH (19:58)
[2022-07-10 20:31] LABS: Glucose,Whole Blood 169 mg/dL (70-110)
[2022-07-11 06:50] LABS: Anisocytosis Marked; HGB 7.4 gm/dL (13.0-17.5); Hypochromasia Moderate; MCH 31.7 pg (25.0-35.0); MCHC 32.1 g/dL (31.0-37.0); MCV 98.7 fL (80.0-100.0); Macrocytosis Marked; Mean Platelet Volume 11.2; RBC 2.33 m/uL (4.30-5.90)
[2022-07-11 06:53] LABS: RDW 25.9 % (11.5-15.5)
[2022-07-11 06:54] LABS: Platelet Count 21 k/uL (150-450)
[2022-07-11 07:09] LABS: African American GFR (CKD) 59 (>60 ml/min/1.73 sqM); Anion Gap 5 mmol/L; Blood Urea Nitrogen 66 mg/dL (9-20); Calcium 7.5 mg/dL (8.4-10.2); Carbon Dioxide 23 mmol/L (22-30); Chloride 101 mmol/L (98-107); Glucose 74 mg/dL (74-99); Non-African American GFR(CKD) 51 (>60 ml/min/1.73 sqM); Potassium 5.7 mmol/L (3.5-5.1); Sodium 129 mmol/L (137-145)
[2022-07-11 07:39] LABS: Glucose,Whole Blood 117 mg/dL (70-110)
[2022-07-11] MEDS: METOPROLOL TARTRATE 25 MG TAB PO SCH ×2 (08:04→21:06)
[2022-07-11] MEDS: IPRATROPIUM 0.5 MG/2.5 ML NEBU INHALATION SCH ×4 (08:06→19:29)
[2022-07-11] MEDS: HYDROcodone/APAP 10-325MG 1 EACH TAB PO SCH ×4 (09:08→21:06)
[2022-07-11] MEDS: ASPIRIN 81 MG PO SCH (09:09)
[2022-07-11] MEDS: FUROSEMIDE 10 MG/ML 4 ML VIAL IV SCH ×2 (09:09→21:06)
[2022-07-11] MEDS: ATORVASTATIN 80 MG TAB PO SCH (09:09)
[2022-07-11] MEDS ORDERED: SODIUM ZIRCONIUM CYCLOSILICATE 10 GM PACKET PO ONE ×2 (09:22→19:00)
[2022-07-11] MEDS ORDERED: CALCIUM GLUCONATE IN NACL 1 GM in SALINE 1 100ML.BAG IVPB ONE (09:22)
[2022-07-11] MEDS ORDERED: INSULIN REGULAR 100 UNIT/ML VIAL (IV) IV ONE (09:23)
[2022-07-11] MEDS ORDERED: DEXTROSE 50% SYRINGE 50 ML IVP STA (09:23)
[2022-07-11] MEDS: dexAMETHasone 4 MG TAB PO SCH ×2 (10:54→21:06)
--- NOTE | 2022-07-11 10:57 | US ---
EXAMINATION TYPE: US kidneys/renal and bladder DATE OF EXAM: 07/11/2022 COMPARISON: CT 07/09/2022 CLINICAL INDICATION: Male, 61 years old with history of NEETA; neeta EXAM MEASUREMENTS: Right Kidney: 11.1 x 4.1 x 4.7 cm Left Kidney: 10.4 x 4.8 x 5.1 cm Right Kidney: No hydronephrosis or masses seen, cortical medullary differentiation maintained. Left Kidney: No hydronephrosis or masses seen , cortical medullary differentiation maintained. Bladder: wnl Bilateral Jets seen: Yes There is no evidence for hydronephrosis at this point in time. No nephrolithiasis is seen. No manuela s are identified. The urinary bladder is anechoic. Bilateral ureteral jets are seen. IMPRESSION: No obstructive uropathy. No acute process.
[2022-07-11 12:16] LABS: Glucose,Whole Blood 70 mg/dL (70-110)
--- NOTE | 2022-07-11 12:38 | P.CRDCN ---
History of Present Illness Consult date: 07/11/22 Consult reason: shortness of breath History of present illness: This is Thomas Fernandez NP, I'm dictating on behalf of Dr. Beaulieu's H&P and A&P The patient was interviewed and examined. HPI: Patient is a pleasant 61-year-old male that presents to the hospital with complaints of shortness of breath, weakness and edema. Patient states that he's been on chemotherapy for lung cancer, and is started having increasing shortness of breath, along with associated weakness and swelling in his lower extremities. Patient reports prior to chemotherapy he did not have these problems. Patient presented to the emergency department for evaluation. EKG did not demonstrate any significant changes. Patient had an echocardiogram completed which was not significant for any heart failure. Troponins have been negative. He was admitted for further evaluation. Patient has a pertinent past medical history that includes lung cancer, chest pain, COPD, MT. Patient has a past surgical history significant for heart catheterization with stent placement. This morning the patient continues to complain of shortness of breath and edema. He also continues to complain of weakness. He denies chest pain or palpitations. ROS: [No fever, chills, or rigors] [no cough, phlegm, or expectoration] [no nausea, vomiting, or diarrhea] [no hematuria, dysuria] [no musculoskelatal complaints] [no strokes or seizures] [no skin lesions] EXAMINATION: GENERAL: Ill-appearing, well-nourished and in mild distress. NECK: Supple without JVD or thyromegaly. LUNGS: Breath sounds clear to auscultation bilaterally. Respiration equal and unlabored. No wheezes, rales or rhonchi. HEART: Regular rate and rhythm without murmurs, rubs or gallops. S1 and S2 heard. EXTREMITIES: Normal range of motion, 1+ edema in the bilateral lower extremities. No clubbing or cyanosis. Peripheral pulses intact and strong. REVIEW OF LABS, ECG & MEDICAL DATA: LABS: White count 26, hemoglobin 7.4, platelets 21, sodium 129, potassium 5.7, B1 66, creatinine 1.48, calcium 7.5, magnesium 2.3, troponin less than 0.0123, BNP 445 EKG: Normal sinus rhythm IMAGING: Chest x-ray dated 07/09/2022 demonstrates increased linear markings in the right upper lung field which appear improved from a comparison study likely related to the patient's known lung cancer. Echocardiogram Doppler dated 07/10/2022 demonstrates LVH with preserved systolic function. Ultrasound of the kidneys and bladder dated 07/11/2022 demonstrates no obstructive uropathy, no acute process. VITALS: Temp 98.7, pulse 87, respirations 18, blood pressure 89/54, O2 saturation 97% on room air IMPRESSION: 1. Lung cancer, currently undergoing chemotherapy treatment 2. Hypotension 3. Anemia PLAN: Patient is not having an exacerbation of congestive heart failure. Consider symptomatic anemia, sepsis, and dehydration as other differentials based on lab work, patient presentation, and current chemotherapy. No further recommendations from a cardiology standpoint. Thank you for the consult and allowing us to participate in the care of this patient. Past Medical History Past Medical History: Cancer, Chest Pain / Angina, COPD, Hyperlipidemia, Hypertension, Myocardial Infarction (MT), Pneumonia Additional Past Medical History / Comment(s): lung cancer-stage 4 non small cell Last Myocardial Infarction Date:: 2017 History of Any Multi-Drug Resistant Organisms: MRSA Date of last positivie culture/infection: 12/23/2013 MDRO Source:: Face Past Surgical History: Heart Catheterization With Stent Additional Past Surgical History / Comment(s): I&D of R inframandibular abscess. 3 cardiac stents. Past Anesthesia/Blood Transfusion Reactions: No Reported Reaction Date of Last Stent Placement:: 2017 Past Psychological History: No Psychological Hx Reported Additional Psychological History / Comment(s): Pt states he was released from longterm recently (driving on suspended license) and during his time in longterm he lost his job and insurance. He resides with his son. He uses no assistive devices. He no longer drives, his son takes him places. Smoking Status: Former smoker Past Alcohol Use History: Rare Additional Past Alcohol Use History / Comment(s): . Past Drug Use History: None Reported Additional Drug Use History / Comment(s): . - Past Family History Father Family Medical History: No Reported History Additional Family Medical History / Comment(s): Father of "natural causes" at the age of 79yrs. Mother Family Medical History: COPD, Coronary Artery Disease (CAD) Additional Family Medical History / Comment(s): Mother is 76yrs old. She has had several MIs, 6 cardiac stents and a 4 vessel CABG. Medications and Allergies Home Medications Medication Instructions Recorded Confirmed Type Aspirin 81 mg PO DAILY #30 chew 03/05/17 07/09/22 Rx Atorvastatin [Lipitor] 80 mg PO DAILY 03/04/21 07/09/22 History Metoprolol Tartrate [Lopressor] 25 mg PO BID 03/04/21 07/09/22 History HYDROcodone/APAP 10-325MG [[place] 1 tab PO QID 05/09/22 07/09/22 History 10-325] Ondansetron [Zofran] 4 mg PO Q6H PRN 05/09/22 07/09/22 History lisinopriL [Zestril] 5 mg PO DAILY 05/09/22 07/09/22 History Oxymetazoline 0.05% Nasl [place] 2 spray NASAL TID PRN 7 Days #1 05/11/22 07/09/22 Rx [Afrin 0.05% Nasal [place]] each Furosemide [Lasix] 40 mg PO DAILY 07/09/22 07/09/22 History Spiriva Respimat 1.25mcg/Actuation 2 puff INHALATION RT-HS 07/09/22 07/09/22 His tory Mist Allergies Allergy/AdvReac Type Severity Reaction Status Date / Time Penicillins Allergy Dyspnea & Verified 07/09/22 21:19 Hives all over Physical Exam Vitals: Vital Signs Temp Pulse Pulse Resp BP BP Pulse Ox 07/11/22 12:06 86 07/11/22 11:56 84 07/11/22 08:19 83 07/11/22 08:07 82 07/11/22 07:38 98.7 F 87 18 89/54 97 07/11/22 03:14 86 91/54 97 07/11/22 03:07 98.4 F 83 16 79/45 95 07/10/22 20:05 84 07/10/22 19:59 83 07/10/22 19:57 97.3 F L 92 16 103/64 99 07/10/22 13:31 98.0 F 83 16 94/51 100 07/10/22 12:48 84 07/10/22 12:31 84 Intake and Output 07/10/22 07/11/22 07/11/22 22:59 06:59 14:59 Output Total 300 Balance -300 Output: Urine 300 Other: Voiding Method Urinal Urinal Weight 78.2 kg Results 07/11/22 05:35 07/11/22 05:35 Cardiac Enzymes 07/10/22 07/10/22 07/10/22 Range/Units 12:05 15:37 20:02 Troponin I <0.012 <0.012 <0.012 (0.000-0.034) ng/mL CBC 07/11/22 Range/Units 05:35 WBC 26.0 H (3.8-10.6) k/uL RBC 2.33 L (4.30-5.90) m/uL Hgb 7.4 L (13.0-17.5) gm/dL Hct 23.0 L (39.0-53.0) % Plt Count 21 L (150-450) k/uL Comprehensive Metabolic Panel 07/10/22 07/11/22 Range/Units 14:05 05:35 Sodium 129 L (137-145) mmol/L Potassium 5.0 5.7 H (3.5-5.1) mmol/L Chloride 101 (98-107) mmol/L Carbon Dioxide 23 (22-30) mmol/L BUN 66 H (9-20) mg/dL Creatinine 1.48 H (0.66-1.25) mg/dL Glucose 74 (74-99) mg/dL Calcium 7.5 L (8.4-10.2) mg/dL Current Medications Generic Name Dose Route Start Last Admin Trade Name Freq PRN Reason Stop Dose Admin Hydrocodone Bitart/Acetaminophen 1 each 07/10/22 09:00 07/11/22 09:08 Hydrocodone/Apap 10-325mg 1 Each Tab PO 1 each QID [facility] Administration Aspirin 81 mg 07/10/22 09:00 07/11/22 09:09 Aspirin 81 Mg PO 81 mg DAILY [facility] Administration Atorvastatin Calcium 80 mg 07/10/22 09:00 07/11/22 09:09 Atorvastatin 80 Mg Tab PO 80 mg DAILY [facility] Administration Dexamethasone 8 mg 07/11/22 10:30 07/11/22 10:54 Dexamethasone 4 Mg Tab PO 8 mg BID [facility] Administration Furosemide 40 mg 07/10/22 09:00 07/11/22 09:09 Furosemide 10 Mg/Ml 4 Ml Vial IV Not Given Q12HR [facility] Ipratropium [place] 0.5 mg 07/10/22 20:00 07/11/22 11:55 Ipratropium 0.5 Mg/2.5 Ml Nebu INHALATION 0.5 mg RT-QID [facility] Administration Metoprolol Tartrate 25 mg 07/10/22 09:00 07/11/22 08:04 Metoprolol Tartrate 25 Mg Tab PO Not Given BID [facility] Morphine Sulfate 4 mg 07/09/22 23:00 Morphine Sulfate 4 Mg/Ml Syringe IV Q4HR PRN Severe Pain (Scale 7 to 10) Naloxone HCl 0.2 mg 07/09/22 23:00 Naloxone 0.4 Mg/Ml 1 Ml Vial IV Q2M PRN Opioid Reversal Ondansetron HCl 4 mg 07/09/22 23:00 Ondansetron 4 Mg/2 Ml Vial IVP Q8HR PRN Nausea And Vomiting Oxymetazoline HCl 2 spray 07/10/22 09:00 Oxymetazoline 0.05% Nasl [place] 1 [place] Bottle NASAL TID PRN Epistaxis Intake and Output 07/10/22 07/11/22 07/11/22 22:59 06:59 14:59 Output Total 300 Balance -300 Output: Urine 300 Other: Voiding Method Urinal Urinal Weight 78.2 kg 07/11/22 05:35 07/11/22 05:35
[2022-07-11 13:24] LABS: African American GFR (CKD) 65 (>60 ml/min/1.73 sqM); Anion Gap 6 mmol/L; Blood Urea Nitrogen 66 mg/dL (9-20); Calcium 7.8 mg/dL (8.4-10.2); Carbon Dioxide 23 mmol/L (22-30); Chloride 100 mmol/L (98-107); Glucose 72 mg/dL (74-99); Non-African American GFR(CKD) 56 (>60 ml/min/1.73 sqM); Potassium 5.4 mmol/L (3.5-5.1); Sodium 129 mmol/L (137-145)
[2022-07-11 17:16] LABS: Glucose,Whole Blood 130 mg/dL (70-110)
--- NOTE | 2022-07-11 19:00 | P.PN ---
Subjective Progress Note Date: 07/11/22 (delayed charting seen at 0830) Patient is a 61-year-old male with stage IV squamous cell carcinoma of the lung status post multiple rounds of chemotherapy, coronary artery disease, COPD, hypertension, and dyslipidemia who presented to the ER with complaints of worsening lower extremity edema despite taking oral Lasix. In the ER he underwent an extensive evaluation. His son have a white blood cell count of 31.1, hemoglobin 8.7, platelets 37, sodium 130, CO2 19, BUN 44, and creatinine 1.17. Chest x-ray was consistent with patient's prior known lung cancer. He was admitted and started on Lasix 40 mg IV every 12 hours. Oncology was consulted. Cardio was consulted. Echo without signs of CHF. Patient seen and examined at bedside. He denies any improvement in his lower extremity edema, he denies any shortness of breath. He is having pain in his legs and is unable to ambulate. 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 Hyperkalemia Locally advanced, unresectable non-small cell lung cancer Anemia and thrombocytopenia, chemotherapy-induced Hypotension Imaging: Echocardiogram: Ejection fraction 55%, mild LVH, normal diastolic function Data Review: Vitals reviewed and within normal limits Labs reviewed and remarkable for white blood cell count 26, hemoglobin 14, platelets 21 Sodium 129, potassium 5.4, Cr 1.36, glucose 72 Plan: - Start Dexamethason 8 mg BID - Lasix IV BID - Metorpolol on hold due to low BP - [place] for pain - ASA 81 mg dily, Lipitor 80 mg daily, - Lokelma, Insulin, glucose, Dextrose - No AC due to Platelet count - Cardio signed off - Oncology note reviewed and Dexamethasone started. DVT prophylaxis: SCDs Anticipated discharge date: Pending Clinical Course Anticipated discharge place: Pending Clinical Course This dictation was prepared using [employer] voice recognition software. Though every attempt is made to correct errors during during dictation some may still exist. Objective - Vital Signs Vital signs: Vital Signs Temp 98.1 F 07/11/22 14:35 Pulse 85 07/11/22 14:35 Resp 18 07/11/22 14:35 BP 106/52 07/11/22 14:35 Pulse Ox 95 07/11/22 14:35 FiO2 Intake & Output 07/10/22 07/11/22 07/11/22 18:59 06:59 18:59 Output Total 300 955 Balance -300 -955 Weight 78.2 kg Output: Urine 300 830 Post Void Residual 125 Other: Voiding Method Urinal Urinal - Labs CBC & Chem 7: 07/11/22 05:35 07/11/22 12:29 Labs: Abnormal Lab Results - Last 24 Hours (Table) 07/10/22 07/11/22 07/11/22 Range/Units 20:28 05:35 05:35 WBC 26.0 H (3.8-10.6) k/uL RBC 2.33 L (4.30-5.90) m/uL Hgb 7.4 L (13.0-17.5) gm/dL Hct 23.0 L (39.0-53.0) % RDW 25.9 H (11.5-15.5) % Plt Count 21 L (150-450) k/uL Macrocytosis Marked A Sodium 129 L (137-145) mmol/L Potassium 5.7 H (3.5-5.1) mmol/L BUN 66 H (9-20) mg/dL Creatinine 1.48 H (0.66-1.25) mg/dL Glucose (74-99) mg/dL POC Glucose (mg/dL) 169 H (70-110) mg/dL Calcium 7.5 L (8.4-10.2) mg/dL 07/11/22 07/11/22 07/11/22 Range/Units 07:38 12:29 17:14 WBC (3.8-10.6) k/uL RBC (4.30-5.90) m/uL Hgb (13.0-17.5) gm/dL Hct (39.0-53.0) % RDW (11.5-15.5) % Plt Count (150-450) k/uL Macrocytosis Sodium 129 L (137-145) mmol/L Potassium 5.4 H (3.5-5.1) mmol/L BUN 66 H (9-20) mg/dL Creatinine 1.36 H (0.66-1.25) mg/dL Glucose 72 L (74-99) mg/dL POC Glucose (mg/dL) 117 H 130 H (70-110) mg/dL Calcium 7.8 L (8.4-10.2) mg/dL
[2022-07-11 20:05] LABS: Glucose,Whole Blood 208 mg/dL (70-110)
[2022-07-12 07:25] LABS: Glucose,Whole Blood 129 mg/dL (70-110)
[2022-07-12] MEDS: IPRATROPIUM 0.5 MG/2.5 ML NEBU INHALATION SCH ×4 (07:39→20:26)
[2022-07-12 07:57] LABS: Anisocytosis Marked; HCT 24.7 % (39.0-53.0); HGB 7.8 gm/dL (13.0-17.5); Hypochromasia Slight; MCH 30.5 pg (25.0-35.0); MCHC 31.5 g/dL (31.0-37.0); MCV 96.8 fL (80.0-100.0); Macrocytosis Marked; Mean Platelet Volume 8.3; RBC 2.55 m/uL (4.30-5.90); WBC 26.6 k/uL (3.8-10.6)
[2022-07-12 07:58] LABS: RDW 26.1 % (11.5-15.5)
[2022-07-12 08:01] LABS: Prothrombin Time 10.4 sec (9.0-12.0)
[2022-07-12 08:13] LABS: African American GFR (CKD) 83 (>60 ml/min/1.73 sqM); Anion Gap 4 mmol/L; Blood Urea Nitrogen 60 mg/dL (9-20); Carbon Dioxide 24 mmol/L (22-30); Chloride 102 mmol/L (98-107); Glucose 115 mg/dL (74-99); Non-African American GFR(CKD) 72 (>60 ml/min/1.73 sqM); Sodium 130 mmol/L (137-145)
[2022-07-12] MEDS: FUROSEMIDE 10 MG/ML 4 ML VIAL IV SCH ×2 (08:19→21:11)
[2022-07-12] MEDS ORDERED: DEXTROSE 50% SYRINGE 50 ML IVP STA (08:37)
[2022-07-12 08:42] LABS: Platelet Count 12 k/uL (150-450)
[2022-07-12] MEDS: dexAMETHasone 4 MG TAB PO SCH ×2 (08:57→21:11)
[2022-07-12] MEDS: HYDROcodone/APAP 10-325MG 1 EACH TAB PO SCH ×4 (08:57→22:14)
[2022-07-12] MEDS: ASPIRIN 81 MG PO SCH (08:57)
[2022-07-12] MEDS: METOPROLOL TARTRATE 25 MG TAB PO SCH ×2 (08:58→21:11)
[2022-07-12] MEDS: ATORVASTATIN 80 MG TAB PO SCH (08:58)
[2022-07-12] MEDS ORDERED: CALCIUM GLUCONATE IN NACL 2 GM in SALINE 1 100ML.BAG IVPB ONE (09:00)
[2022-07-12] MEDS ORDERED: INSULIN REGULAR 100 UNIT/ML VIAL (IV) IV ONE (09:00)
[2022-07-12] MEDS ORDERED: SODIUM ZIRCONIUM CYCLOSILICATE 10 GM PACKET PO ONE ×2 (09:30→14:58)
--- NOTE | 2022-07-12 10:56 | P.NPCON ---
History of Present Illness - Reason for Consult Consult date: 07/12/22 hyperkalemia - Chief Complaint Edema - History of Present Illness This is a 61-year-old male is seen in consultation because of acute kidney injury, hyperkalemia and hyponatremia. Admission labs showed sodium of 129 potassium 5.4 chloride 100 bicarb 23 creatinine 1.36. Blood sugar was 72 calcium 7.8 uric acid is 8.6. He is known with lung cancer and is on chemotherapy. Last chemotherapy was on 07/06/2022, received carboplatin. 2 days later he started to feel swelling of his legs. He has been on chemotherapy for some time and was being given Lasix but he came off off it for 2 days perhaps. This was coincident with recurrence of edema and worsening of it. No nausea vomiting recently. No history of taking any nonsteroidals. Does have difficulties urinating. Past history significant for angina COPD MA and pneumonia. Past Medical History Past Medical History: Cancer, Chest Pain / Angina, COPD, Hyperlipidemia, Hypertension, Myocardial Infarction (MA), Pneumonia Additional Past Medical History / Comment(s): lung cancer-stage 4 non small cell Last Myocardial Infarction Date:: 2017 History of Any Multi-Drug Resistant Organisms: MRSA Date of last positivie culture/infection: 12/23/2013 MDRO Source:: Face Past Surgical History: Heart Catheterization With Stent Additional Past Surgical History / Comment(s): I&D of R inframandibular abscess. 3 cardiac stents. Past Anesthesia/Blood Transfusion Reactions: No Reported Reaction Date of Last Stent Placement:: 2017 Past Psychological History: No Psychological Hx Reported Additional Psychological History / Comment(s): Pt states he was released from [facility] recently (driving on suspended license) and during his time in [facility] he lost his job and insurance. He resides with his son. He uses no assistive devices. He no longer drives, his son takes him places. Smoking Status: Former smoker Past Alcohol Use History: Rare Additional Past Alcohol Use History / Comment(s): . Past Drug Use History: None Reported Additional Drug Use History / Comment(s): . - Past Family History Father Family Medical History: No Reported History Additional Family Medical History / Comment(s): Father of "natural causes" at the age of 79yrs. Mother Family Medical History: COPD, Coronary Artery Disease (CAD) Additional Family Medical History / Comment(s): Mother is 76yrs old. She has had several MIs, 6 cardiac stents and a 4 vessel CABG. Medications and Allergies Home Medications Medication Instructions Recorded Confirmed Type Aspirin 81 mg PO DAILY #30 chew 03/05/17 07/09/22 Rx Atorvastatin [Lipitor] 80 mg PO DAILY 03/04/21 07/09/22 History Metoprolol Tartrate [Lopressor] 25 mg PO BID 03/04/21 07/09/22 History HYDROcodone/APAP 10-325MG [[place] 1 tab PO QID 05/09/22 07/09/22 History 10-325] Ondansetron [Zofran] 4 mg PO Q6H PRN 05/09/22 07/09/22 History lisinopriL [Zestril] 5 mg PO DAILY 05/09/22 07/09/22 History Oxymetazoline 0.05% Nasl [place] 2 spray NASAL TID PRN 7 Days #1 05/11/22 07/09/22 Rx [Afrin 0.05% Nasal [place]] each Furosemide [Lasix] 40 mg PO DAILY 07/09/22 07/09/22 History Spiriva Respimat 1.25mcg/Actuation 2 puff INHALATION RT-HS 07/09/22 07/09/22 History Mist Allergies Allergy/AdvReac Type Severity Reaction Status Date / Time Penicillins Allergy Dyspnea & Verified 07/09/22 21:19 Hives all over Physical Exam Vitals: Vital Signs Temp Pulse Pulse Resp BP BP Pulse Ox 07/12/22 07:58 98 F 80 20 118/70 97 07/12/22 07:50 84 07/12/22 07:39 80 97 07/12/22 03:41 98.2 F 78 16 124/63 96 07/11/22 19:38 88 07/11/22 19:31 97.9 F 81 16 106/66 96 07/11/22 19:30 89 07/11/22 14:35 98.1 F 85 18 106/52 95 07/11/22 12:06 86 07/11/22 11:56 84 FiO2 07/12/22 07:58 07/12/22 07:50 07/12/22 07:39 21 07/12/22 03:41 07/11/22 19:38 07/11/22 19:31 07/11/22 19:30 07/11/22 14:35 07/11/22 12:06 07/11/22 11:56 Intake and Output 07/11/22 07/12/22 07/12/22 22:59 06:59 14:59 Output Total 1305 Balance -1305 Output: Urine 1180 Post Void Residual 125 Other: Voiding Method Urinal Weight 62 kg On examination is awake alert oriented comfortable on room air HEENT exam no JVP neck is supple no facial asymmetry Lungs are clear to auscultation good air entry Heart sounds unremarkable no murmur rub gallop Abdomen soft nontender no masses felt Extremity exam was mild edema Neurologically awake alert oriented Results - Lab Results Most recent lab results Calcium 8.0 mg/dL (8.4-10.2) L 07/12/22 07:02 Phosphorus 4.9 mg/dL (2.5-4.5) H 07/12/22 07:02 Magnesium 2.3 mg/dL (1.6-2.3) 07/09/22 20:37 07/12/22 07:02 07/12/22 07:02 Assessment and Plan Plan: Impression 1. Acute kidney injury secondary to chemotherapy and poor appetite, tumor lysis syndrome considered to be unlikely with uric acid being marginally high at 8.6 phosphorus is 4.9 calcium was 7.8. 2. Hyponatremia sodium 129 on admission secondary to acute kidney injury. 3. Hyperkalemia secondary to Ralph inhibitors, lisinopril, possible potassium intake as he was prescribed this in the past and additionally acute kidney injury. Rule out bladder outlet obstruction. Additionally adrenal insufficient may be a consideration as he was on steroids because of his chemotherapy. Currently he is on steroids 4. Lung cancer on chemotherapy, including carboplatin, last chemotherapy 07/06/2022 5. Anemia and pancytopenia secondary to chemotherapy. 6. History of coronary artery disease COPD. 7. Acute recurrence of edema because of hypoalbuminemia as well as cessation of Lasix for 2 days Recommendation 1. IV normal saline at 150 an hour and add lasix 20 mg IV to improve potassium loss . 2. Obtain urinalysis. 3. Check bladder scan and ultrasound of the kidney has been done ultrasound shows 111.1 cm right and 10.4 cm left kidney. 4. Check free cortisol level. 5. Repeat labs today at 1600 hrs., to follow up his potassium and sodium. Thank you for this consultation will continue follow closely
[2022-07-12] MEDS: SODIUM CHLORIDE 0.9% 1,000 ML IV SCH ×3 (11:20→22:15)
[2022-07-12 11:55] LABS: Glucose,Whole Blood 251 mg/dL (70-110)
[2022-07-12 13:57] LABS: Anisocytosis Marked; HCT 24.4 % (39.0-53.0); HGB 7.7 gm/dL (13.0-17.5); Hypochromasia Moderate; MCH 31.4 pg (25.0-35.0); MCHC 31.4 g/dL (31.0-37.0); MCV 99.9 fL (80.0-100.0); Macrocytosis Marked; Mean Platelet Volume 8.9; RBC 2.44 m/uL (4.30-5.90); WBC 38.3 k/uL (3.8-10.6)
[2022-07-12 14:03] LABS: RDW 26.1 % (11.5-15.5)
[2022-07-12 14:09] LABS: African American GFR (CKD) >90 (>60 ml/min/1.73 sqM); Anion Gap 5 mmol/L; Blood Urea Nitrogen 59 mg/dL (9-20); Calcium 8.3 mg/dL (8.4-10.2); Carbon Dioxide 24 mmol/L (22-30); Chloride 103 mmol/L (98-107); Glucose 151 mg/dL (74-99); Non-African American GFR(CKD) 78 (>60 ml/min/1.73 sqM); Potassium 5.8 mmol/L (3.5-5.1); Sodium 132 mmol/L (137-145)
[2022-07-12 14:32] LABS: Platelet Count 11 k/uL (150-450)
[2022-07-12] MEDS ORDERED: CALCIUM GLUCONATE IN NACL 1 GM in SALINE 1 100ML.BAG IVPB ONE (14:58)
--- NOTE | 2022-07-12 15:03 | P.PN ---
Subjective Progress Note Date: 07/12/22 (delayed charting seen at 0845) Patient is a 61-year-old male with stage IV squamous cell carcinoma of the lung status post multiple rounds of chemotherapy, coronary artery disease, COPD, hypertension, and dyslipidemia who presented to the ER with complaints of worsening lower extremity edema despite taking oral Lasix. In the ER he underwent an extensive evaluation. His son have a white blood cell count of 31.1, hemoglobin 8.7, platelets 37, sodium 130, CO2 19, BUN 44, and creatinine 1.17. Chest x-ray was consistent with patient's prior known lung cancer. He was admitted and started on Lasix 40 mg IV every 12 hours. Oncology was consulted. Cardio was consulted. Echo without signs of CHF. Patient seen and examined at bedside. He reports some improvement in his lower extremity edema, he still feels tired. He denies any nausea, vomiting, diarrhea 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 Hyperkalemia Locally advanced, unresectable non-small cell lung cancer Anemia and thrombocytopenia, chemotherapy-induced Possible secondary adrenal insuffieicency random cortisol 2 Hypotension Imaging: none new Data Review: Temperature 98.8, pulse 80, respiratory rate 20, blood pressure 118/70, O2 sat 97% on room air Labs reviewed and white blood cell count 26.6 (stable from yesterday at 26), hemoglobin 7.8 (yesterday 7.4), platelets 12 (down from 21) disease, sodium 1:30, potassium 6, BUN 60, glucose 115 Cortisol 2 Plan: - Dexamethason 8 mg BID, Pts BP improved after steroids may have adrenal insufficiency -Had consistent possible tumor lysis syndrome. Potassium was checked and elevated at 4.9, uric acid mildly elevated at 8.6, calcium normal corrected 10 9 for albumin. Case discussed with oncology and less likely tumor lysis syndrome given that this is not a small cell or hematologic malignancy. We'll repeat labs in a.m. -Initially patient received 10 units of insulin, dextrose 1 amp, calcium gluconate 1 g, and LoKelma 10 this AM - Nephrology was consulted for persistent Hyperkalemia, Patient's postvoid residual on 07/12 was 0 - Lasix IV BID - Metorpolol on hold due to low BP - [place] for pain - ASA 81 mg dily, Lipitor 80 mg daily, - No AC due to Platelet count - Cardio signed off DVT prophylaxis: SCDs Anticipated discharge date: Pending Clinical Course Anticipated discharge place: Pending Clinical Course This dictation was prepared using [email or web address] voice recognition software. Though every attempt is made to correct errors during during dictation some may still exist. Objective - Vital Signs Vital signs: Vital Signs Temp 97.8 F 07/12/22 12:03 Pulse 86 07/12/22 12:03 Resp 20 07/12/22 12:03 BP 98/60 07/12/22 12:03 Pulse Ox 100 07/12/22 12:03 FiO2 21 07/12/22 07:39 Intake & Output 07/11/22 07/12/22 07/12/22 18:59 06:59 18:59 Output Total 955 350 0 Balance -955 -350 0 Weight 62 kg Output: Urine 830 350 Post Void Residual 125 0 Other: Voiding Method Urinal Urinal Urinal - Labs CBC & Chem 7: 07/12/22 13:45 07/12/22 13:45 Labs: Abnormal Lab Results - Last 24 Hours (Table) 07/11/22 07/11/22 07/12/22 Range/Units 17:14 20:04 07:02 WBC 26.6 H (3.8-10.6) k/uL RBC 2.55 L (4.30-5.90) m/uL Hgb 7.8 L (13.0-17.5) gm/dL Hct 24.7 L (39.0-53.0) % RDW 26.1 H (11.5-15.5) % Plt Count 12 L* (150-450) k/uL Macrocytosis Marked A Sodium (137-145) mmol/L Potassium (3.5-5.1) mmol/L BUN (9-20) mg/dL Glucose (74-99) mg/dL POC Glucose (mg/dL) 130 H 208 H (70-110) mg/dL Uric Acid (3.5-8.5) mg/dL Calcium (8.4-10.2) mg/dL Phosphorus (2.5-4.5) mg/dL 07/12/22 07/12/22 07/12/22 Range/Units 07:02 07:02 07:02 WBC (3.8-10.6) k/uL RBC (4.30-5.90) m/uL Hgb (13.0-17.5) gm/dL Hct (39.0-53.0) % RDW (11.5-15.5) % Plt Count (150-450) k/uL Macrocytosis Sodium 130 L (137-145) mmol/L Potassium 6.0 H (3.5-5.1) mmol/L BUN 60 H (9-20) mg/dL Glucose 115 H (74-99) mg/dL POC Glucose (mg/dL) (70-110) mg/dL Uric Acid 8.6 H (3.5-8.5) mg/dL Calcium 8.0 L (8.4-10.2) mg/dL Phosphorus 4.9 H (2.5-4.5) mg/dL 07/12/22 07/12/22 07/12/22 Range/Units 07:24 11:54 13:45 WBC 38.3 H (3.8-10.6) k/uL RBC 2.44 L (4.30-5.90) m/uL Hgb 7.7 L (13.0-17.5) gm/dL Hct 24.4 L (39.0-53.0) % RDW 26.1 H (11.5-15.5) % Plt Count 11 L* (150-450) k/uL Macrocytosis Marked A Sodium (137-145) mmol/L Potassium (3.5-5.1) mmol/L BUN (9-20) mg/dL Glucose (74-99) mg/dL POC Glucose (mg/dL) 129 H 251 H (70-110) mg/dL Uric Acid (3.5-8.5) mg/dL Calcium (8.4-10.2) mg/dL Phosphorus (2.5-4.5) mg/dL 07/12/22 Range/Units 13:45 WBC (3.8-10.6) k/uL RBC (4.30-5.90) m/uL Hgb (13.0-17.5) gm/dL Hct (39.0-53.0) % RDW (11.5-15.5) % Plt Count (150-450) k/uL Macrocytosis Sodium 132 L (137-145) mmol/L Potassium 5.8 H (3.5-5.1) mmol/L BUN 59 H (9-20) mg/dL Glucose 151 H (74-99) mg/dL POC Glucose (mg/dL) (70-110) mg/dL Uric Acid (3.5-8.5) mg/dL Calcium 8.3 L (8.4-10.2) mg/dL Phosphorus (2.5-4.5) mg/dL
--- NOTE | 2022-07-12 15:34 | P.PN ---
Subjective Progress Note Date: 07/12/22 -Echo on admission revealed ejection fraction 55 to 60% -Started on dexamethasone and milligrams twice daily on 07/11/2022 -No acute events overnight -Notes improved edema in the upper extremities, particularly right hand, compared to admission -He did have an episode of bleeding following excoriation, which resolved spontaneously Objective - Vital Signs Vital signs: Vital Signs Temp 97.8 F 07/12/22 12:03 Pulse 86 07/12/22 12:03 Resp 20 07/12/22 12:03 BP 98/60 07/12/22 12:03 Pulse Ox 100 07/12/22 12:03 FiO2 21 07/12/22 07:39 Intake & Output 07/11/22 07/12/22 07/12/22 18:59 06:59 18:59 Output Total 955 350 0 Balance -955 -350 0 Weight 62 kg Output: Urine 830 350 Post Void Residual 125 0 Other: Voiding Method Urinal Urinal Urinal - Constitutional General appearance: Present: cooperative, no acute distress - EENT Eyes: Present: EOMI - Respiratory Details: Nonlabored breathing - Cardiovascular Details: Warm and well-perfused - Gastrointestinal General gastrointestinal: Present: soft. Absent: distended - Integumentary Integumentary: Absent: rash - Neurologic Neurologic: Present: CNII-XII intact. Absent: focal deficits - Labs CBC & Chem 7: 07/12/22 13:45 07/12/22 13:45 Labs: Abnormal Lab Results - Last 24 Hours (Table) 07/11/22 07/11/22 07/12/22 Range/Units 17:14 20:04 07:02 WBC 26.6 H (3.8-10.6) k/uL RBC 2.55 L (4.30-5.90) m/uL Hgb 7.8 L (13.0-17.5) gm/dL Hct 24.7 L (39.0-53.0) % RDW 26.1 H (11.5-15.5) % Plt Count 12 L* (150-450) k/uL Macrocytosis Marked A Sodium (137-145) mmol/L Potassium (3.5-5.1) mmol/L BUN (9-20) mg/dL Glucose (74-99) mg/dL POC Glucose (mg/dL) 130 H 208 H (70-110) mg/dL Uric Acid (3.5-8.5) mg/dL Calcium (8.4-10.2) mg/dL Phosphorus (2.5-4.5) mg/dL 07/12/22 07/12/22 07/12/22 Range/Units 07:02 07:02 07:02 WBC (3.8-10.6) k/uL RBC (4.30-5.90) m/uL Hgb (13.0-17.5) gm/dL Hct (39.0-53.0) % RDW (11.5-15.5) % Plt Count (150-450) k/uL Macrocytosis Sodium 130 L (137-145) mmol/L Potassium 6.0 H (3.5-5.1) mmol/L BUN 60 H (9-20) mg/dL Glucose 115 H (74-99) mg/dL POC Glucose (mg/dL) (70-110) mg/dL Uric Acid 8.6 H (3.5-8.5) mg/dL Calcium 8.0 L (8.4-10.2) mg/dL Phosphorus 4.9 H (2.5-4.5) mg/dL 07/12/22 07/12/22 07/12/22 Range/Units 07:24 11:54 13:45 WBC 38.3 H (3.8-10.6) k/uL RBC 2.44 L (4.30-5.90) m/uL Hgb 7.7 L (13.0-17.5) gm/dL Hct 24.4 L (39.0-53.0) % RDW 26.1 H (11.5-15.5) % Plt Count 11 L* (150-450) k/uL Macrocytosis Marked A Sodium (137-145) mmol/L Potassium (3.5-5.1) mmol/L BUN (9-20) mg/dL Glucose (74-99) mg/dL POC Glucose (mg/dL) 129 H 251 H (70-110) mg/dL Uric Acid (3.5-8.5) mg/dL Calcium (8.4-10.2) mg/dL Phosphorus (2.5-4.5) mg/dL 07/12/22 Range/Units 13:45 WBC (3.8-10.6) k/uL RBC (4.30-5.90) m/uL Hgb (13.0-17.5) gm/dL Hct (39.0-53.0) % RDW (11.5-15.5) % Plt Count (150-450) k/uL Macrocytosis Sodium 132 L (137-145) mmol/L Potassium 5.8 H (3.5-5.1) mmol/L BUN 59 H (9-20) mg/dL Glucose 151 H (74-99) mg/dL POC Glucose (mg/dL) (70-110) mg/dL Uric Acid (3.5-8.5) mg/dL Calcium 8.3 L (8.4-10.2) mg/dL Phosphorus (2.5-4.5) mg/dL Assessment and Plan (1) Edema due to hypoalbuminemia Current Visit: Yes Status: Acute Code(s): E88.09 - OTH DISORDERS OF PLASMA- PROTEIN METABOLISM, NEC SNOMED Code(s): 791560876 (2) Anemia associated with chemotherapy Current Visit: Yes Status: Acute Code(s): D64.81 - ANEMIA DUE TO ANTINEOPLASTIC CHEMOTHERAPY; T45.1X5A - ADVERSE EFFECT OF ANTINEOPLASTIC AND IMMUNOSUP DRUGS, INIT SNOMED Code(s): 403649266273005 (3) Lung cancer Current Visit: Yes Status: Chronic Code(s): C34.90 - MALIGNANT NEOPLASM OF UNSP PART OF UNSP BRONCHUS OR LUNG SNOMED Code(s): 898474935 (4) Leukocytosis Current Visit: No Status: Acute Code(s): D72.829 - ELEVATED WHITE BLOOD CELL COUNT, UNSPECIFIED SNOMED Code(s): 817920347 Plan: #Edema -Initially noted 3 to 4 weeks ago and improved with oral Lasix 40 mg outpatient -Became progressively worse over the past week, and felt to be acutely worse after last gemcitabine treatment on 07/06/2022 -Noted development of orthopnea and dyspnea on exertion over the past 3 to 4 weeks -Echo on admission revealed no evidence of cardiomyopathy consistent with heart failure -Dexamethasone 8 mg twice daily initiated on 07/11/2022, with noted clinical response -Continue dexamethasone for total of 3 days, with the last day of treatment being on 07/13/2022 #Chemotherapy-induced anemia and thrombocytopenia, neutrophilic leukocytosis -Neutrophilic leukocytosis is due to Neulasta, there is no evidence of infection at this time -Anemia and thrombocytopenia are secondary to carboplatin/gemcitabine treatment, with thrombocytopenia being particularly due to gemcitabine -Platelets 11,000 with hemoglobin 7.7 -CBC with differential daily -Transfuse for hemoglobin less than 7 and/or platelet count less than 10,000 or bleeding #Hyperkalemia, hyperphosphatemia, hypocalcemia -Noted to have persistent hyperkalemia and hyperphosphatemia during admission -NEETA previously noted is improving -Unclear if this is due to tumor lysis syndrome, which is less likely to occur in solid tumor malignancy -Discussed with Dr. Rousseau, we will recheck uric acid tomorrow's labs -If persistently elevated or increasing, we will initiate treatment with either allopurinol or rasburicase if uric acid is at 10 or greater #NEETA -Noted to be improving on today's labs -This is less likely to be due to gemcitabine given that gemcitabine is metabolized by the liver and not the kidney -Carboplatin is less nephrotoxic than cisplatin -Continue management per nephrology and primary team #Locally advanced/unresectable non-small cell lung cancer -Treated with single agent pembrolizumab from February 2021 through March 2022 with noted disease progression at that time -Initiated carboplatin/gemcitabine on 04/27/2022 and recently completed cycle 4 on 07/06/2022 -Staging CT scans performed on 07/09/2022 with official read currently pending -No acute inventions for lung cancer standpoint at this time -Follow-up with his primary oncologist Dr. Hoyos to review the results
[2022-07-12 17:17] LABS: Glucose,Whole Blood 145 mg/dL (70-110)
[2022-07-12 19:04] LABS: African American GFR (CKD) >90 (>60 ml/min/1.73 sqM); Anion Gap 3 mmol/L; Blood Urea Nitrogen 54 mg/dL (9-20); Calcium 8.1 mg/dL (8.4-10.2); Carbon Dioxide 25 mmol/L (22-30); Chloride 104 mmol/L (98-107); Glucose 142 mg/dL (74-99); Non-African American GFR(CKD) 79 (>60 ml/min/1.73 sqM); Potassium 5.6 mmol/L (3.5-5.1); Sodium 132 mmol/L (137-145)
[2022-07-12 20:25] LABS: Glucose,Whole Blood 145 mg/dL (70-110)
[2022-07-13] MEDS: HYDROcodone/APAP 10-325MG 1 EACH TAB PO SCH ×4 (06:26→22:28)
[2022-07-13] MEDS: SODIUM CHLORIDE 0.9% 1,000 ML IV SCH (06:29)
[2022-07-13 07:37] LABS: Glucose,Whole Blood 118 mg/dL (70-110)
[2022-07-13] MEDS: IPRATROPIUM 0.5 MG/2.5 ML NEBU INHALATION SCH ×4 (07:37→20:22)
[2022-07-13] MEDS: METOPROLOL TARTRATE 25 MG TAB PO SCH ×2 (08:39→21:02)
[2022-07-13] MEDS: ASPIRIN 81 MG PO SCH (08:39)
[2022-07-13] MEDS: ATORVASTATIN 80 MG TAB PO SCH (08:39)
[2022-07-13] MEDS: FUROSEMIDE 10 MG/ML 4 ML VIAL IV SCH ×2 (08:39→21:01)
[2022-07-13] MEDS: dexAMETHasone 4 MG TAB PO SCH ×2 (08:39→21:02)
--- NOTE | 2022-07-13 08:44 | P.PN ---
Subjective Patient is seen in follow-up for acute kidney injury. Renal function improved. Complaining of swelling in lower extremities. IV fluids discontinued. Has been voiding. Hemodynamically stable. Oral intake fair. Vital signs are stable. General: No acute distress. HEENT: Head exam is unremarkable. LUNGS: No audible rhonchi or wheezes. HEART: Rate and Rhythm are regular. ABDOMEN: Soft, nontender. EXTREMITITES: 2+ edema. Objective - Vital Signs Vital signs: Vital Signs Temp 98.1 F 07/13/22 07:41 Pulse 80 07/13/22 07:46 Resp 19 07/13/22 07:41 BP 127/53 07/13/22 07:41 Pulse Ox 95 07/13/22 07:41 FiO2 21 07/13/22 07:37 Intake & Output 07/12/22 07/13/22 07/13/22 18:59 06:59 18:59 Intake Total 240 Output Total 0 Balance 0 240 Weight 83.5 kg Intake: Oral 240 Output: Post Void Residual 0 Other: Voiding Method Urinal Urinal - Labs CBC & Chem 7: 07/12/22 13:45 07/12/22 18:25 Labs: Abnormal Lab Results - Last 24 Hours (Table) 07/12/22 07/12/22 07/12/22 Range/Units 07:02 07:02 07:02 WBC (3.8-10.6) k/uL RBC (4.30-5.90) m/uL Hgb (13.0-17.5) gm/dL Hct (39.0-53.0) % RDW (11.5-15.5) % Plt Count 12 L* (150-450) k/uL Macrocytosis Sodium (137-145) mmol/L Potassium (3.5-5.1) mmol/L BUN (9-20) mg/dL Glucose (74-99) mg/dL POC Glucose (mg/dL) (70-110) mg/dL Uric Acid 8.6 H (3.5-8.5) mg/dL Calcium (8.4-10.2) mg/dL Phosphorus 4.9 H (2.5-4.5) mg/dL 07/12/22 07/12/22 07/12/22 Range/Units 11:54 13:45 13:45 WBC 38.3 H (3.8-10.6) k/uL RBC 2.44 L (4.30-5.90) m/uL Hgb 7.7 L (13.0-17.5) gm/dL Hct 24.4 L (39.0-53.0) % RDW 26.1 H (11.5-15.5) % Plt Count 11 L* (150-450) k/uL Macrocytosis Marked A Sodium 132 L (137-145) mmol/L Potassium 5.8 H (3.5-5.1) mmol/L BUN 59 H (9-20) mg/dL Glucose 151 H (74-99) mg/dL POC Glucose (mg/dL) 251 H (70-110) mg/dL Uric Acid (3.5-8.5) mg/dL Calcium 8.3 L (8.4-10.2) mg/dL Phosphorus (2.5-4.5) mg/dL 07/12/22 07/12/22 07/12/22 Range/Units 17:16 18:25 20:23 WBC (3.8-10.6) k/uL RBC (4.30-5.90) m/uL Hgb (13.0-17.5) gm/dL Hct (39.0-53.0) % RDW (11.5-15.5) % Plt Count (150-450) k/uL Macrocytosis Sodium 132 L (137-145) mmol/L Potassium 5.6 H (3.5-5.1) mmol/L BUN 54 H (9-20) mg/dL Glucose 142 H (74-99) mg/dL POC Glucose (mg/dL) 145 H 145 H (70-110) mg/dL Uric Acid (3.5-8.5) mg/dL Calcium 8.1 L (8.4-10.2) mg/dL Phosphorus (2.5-4.5) mg/dL 07/13/22 Range/Units 07:36 WBC (3.8-10.6) k/uL RBC (4.30-5.90) m/uL Hgb (13.0-17.5) gm/dL Hct (39.0-53.0) % RDW (11.5-15.5) % Plt Count (150-450) k/uL Macrocytosis Sodium (137-145) mmol/L Potassium (3.5-5.1) mmol/L BUN (9-20) mg/dL Glucose (74-99) mg/dL POC Glucose (mg/dL) 118 H (70-110) mg/dL Uric Acid (3.5-8.5) mg/dL Calcium (8.4-10.2) mg/dL Phosphorus (2.5-4.5) mg/dL Assessment and Plan Plan: Assessment: 1. Acute kidney injury mostly prerenal from hypovolemia. Improved. Creatinine peaked at 1.4 this admission and was down to 1.03 yesterday. No hydronephrosis noted on kidney ultrasound. 2. Lower extremity edema. 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 Ec hocardiogram showed preserved ejection fraction with moderate pulmonary hypertension. 3. Chemotherapy-induced anemia, thrombocytopenia and leukocytosis. Oncology following. 4. Hyperkalemia, hyperphosphatemia and hypocalcemia. Corrected calcium is normal. ?TLS. Patient has received adequate IV hydration this admission and is currently hypervolemic. 5. Hypervolemic hyponatremia. Also concern for adrenal insufficiency. Cortisol level low at 2. Patient is on dexamethasone. Plan: Maintain IV Lasix. IV fluids discontinued. 1500 mL fluid restriction. Follow-up morning labs. Avoid nephrotoxins.
[2022-07-13 09:06] LABS: Anisocytosis Marked; HCT 23.1 % (39.0-53.0); HGB 7.4 gm/dL (13.0-17.5); Hypochromasia Moderate; MCH 32.1 pg (25.0-35.0); Macrocytosis Marked; Mean Platelet Volume 10.5; WBC 29.2 k/uL (3.8-10.6)
[2022-07-13 09:26] LABS: RDW 26.3 % (11.5-15.5)
[2022-07-13 09:27] LABS: Platelet Count 10 k/uL (150-450)
[2022-07-13 09:28] LABS: MCV 100.3 fL (80.0-100.0)
[2022-07-13 09:37] LABS: African American GFR (CKD) >90 (>60 ml/min/1.73 sqM); Anion Gap 7 mmol/L; Carbon Dioxide 22 mmol/L (22-30); Chloride 106 mmol/L (98-107); Glucose 135 mg/dL (74-99); Non-African American GFR(CKD) 81 (>60 ml/min/1.73 sqM); Phosphorus 4.9 mg/dL (2.5-4.5); Potassium 5.3 mmol/L (3.5-5.1); Sodium 135 mmol/L (137-145); Uric Acid 7.9 mg/dL (3.5-8.5)
[2022-07-13 09:38] LABS: ALT 102 U/L (4-49); AST 73 U/L (17-59); Alkaline Phosphatase 180 U/L (38-126); Blood Urea Nitrogen 52 mg/dL (9-20); Calcium 8.2 mg/dL (8.4-10.2); Total Bilirubin 0.4 mg/dL (0.2-1.3)
[2022-07-13 12:03] LABS: Glucose,Whole Blood 185 mg/dL (70-110)
--- NOTE | 2022-07-13 13:52 | P.PN ---
Subjective Progress Note Date: 07/13/22 Principal diagnosis: NSCLC At today's visit patient is resting comfortably in bed. Patient is reporting lower extremity edema. He also reports intermittent epistaxis over the last 1 day with some small clotting. Also states he is having exertional shortness of breath. Denies shortness of breath at rest. Objective - Vital Signs Vital signs: Vital Signs Temp 98.1 F 07/13/22 07:41 Pulse 72 07/13/22 11:34 Resp 19 07/13/22 07:41 BP 127/53 07/13/22 07:41 Pulse Ox 95 07/13/22 07:41 FiO2 21 07/13/22 07:37 Intake & Output 07/12/22 07/13/22 07/13/22 18:59 06:59 18:59 Intake Total 240 Output Total 0 Balance 0 240 Weight 83.5 kg Intake: Oral 240 Output: Post Void Residual 0 Other: Voiding Method Urinal Urinal - Constitutional General appearance: Present: average body habitus, no acute distress - EENT EENT Comment(s): no epistaxis noted Eyes: Present: anicteric sclerae, EOMI ENT: Present: hearing grossly normal - Respiratory Details: breathing even and unlabored - Cardiovascular Details: skin warm and dry - Peripheral edema leg Peripheral Edema: bilateral: 1+, Pitting - Integumentary Integumentary: Present: pale - Neurologic Neurologic: Present: CNII-XII intact - Musculoskeletal Musculoskeletal: Present: strength equal bilaterally - Psychiatric Psychiatric: Present: A&O x's 3, appropriate affect, intact judgment & insight - Labs CBC & Chem 7: 07/13/22 08:35 07/13/22 08:35 Labs: Abnormal Lab Results - Last 24 Hours (Table) 07/12/22 07/12/22 07/12/22 Range/Units 13:45 13:45 17:16 WBC 38.3 H (3.8-10.6) k/uL RBC 2.44 L (4.30-5.90) m/uL Hgb 7.7 L (13.0-17.5) gm/dL Hct 24.4 L (39.0-53.0) % MCV (80.0-100.0) fL RDW 26.1 H (11.5-15.5) % Plt Count 11 L* (150-450) k/uL Macrocytosis Marked A Sodium 132 L (137-145) mmol/L Potassium 5.8 H (3.5-5.1) mmol/L BUN 59 H (9-20) mg/dL Glucose 151 H (74-99) mg/dL POC Glucose (mg/dL) 145 H (70-110) mg/dL Calcium 8.3 L (8.4-10.2) mg/dL Phosphorus (2.5-4.5) mg/dL AST (17-59) U/L ALT (4-49) U/L Alkaline Phosphatase (38-126) U/L Total Protein (6.3-8.2) g/dL Albumin (3.5-5.0) g/dL 07/12/22 07/12/22 07/13/22 Range/Units 18:25 20:23 07:36 WBC (3.8-10.6) k/uL RBC (4.30-5.90) m/uL Hgb (13.0-17.5) gm/dL Hct (39.0-53.0) % MCV (80.0-100.0) fL RDW (11.5-15.5) % Plt Count (150-450) k/uL Macrocytosis Sodium 132 L (137-145) mmol/L Potassium 5.6 H (3.5-5.1) mmol/L BUN 54 H (9-20) mg/dL Glucose 142 H (74-99) mg/dL POC Glucose (mg/dL) 145 H 118 H (70-110) mg/dL Calcium 8.1 L (8.4-10.2) mg/dL Phosphorus (2.5-4.5) mg/dL AST (17-59) U/L ALT (4-49) U/L Alkaline Phosphatase (38-126) U/L Total Protein (6.3-8.2) g/dL Albumin (3.5-5.0) g/dL 07/13/22 07/13/22 07/13/22 Range/Units 08:35 08:35 12:02 WBC 29.2 H (3.8-10.6) k/uL RBC 2.30 L (4.30-5.90) m/uL Hgb 7.4 L (13.0-17.5) gm/dL Hct 23.1 L (39.0-53.0) % MCV 100.3 H (80.0-100.0) fL RDW 26.3 H (11.5-15.5) % Plt Count 10 L* (150-450) k/uL Macrocytosis Marked A Sodium 135 L (137-145) mmol/L Potassium 5.3 H (3.5-5.1) mmol/L BUN 52 H (9-20) mg/dL Glucose 135 H (74-99) mg/dL POC Glucose (mg/dL) 185 H (70-110) mg/dL Calcium 8.2 L (8.4-10.2) mg/dL Phosphorus 4.9 H (2.5-4.5) mg/dL AST 73 H (17-59) U/L ALT 102 H (4-49) U/L Alkaline Phosphatase 180 H (38-126) U/L Total Protein 6.0 L (6.3-8.2) g/dL Albumin 3.0 L (3.5-5.0) g/dL Assessment and Plan (1) Anemia associated with chemotherapy Current Visit: Yes Status: Acute Priority: High Code(s): D64.81 - ANEMIA DUE TO ANTINEOPLASTIC CHEMOTHERAPY; T45.1X5A - ADVERSE EFFECT OF ANTINEOPLASTIC AND IMMUNOSUP DRUGS, INIT SNOMED Code(s): 364077646469755 (2) Lung cancer Current Visit: Yes Status: Chronic Priority: High Code(s): C34.90 - MALIGNANT NEOPLASM OF UNSP PART OF UNSP BRONCHUS OR LUNG SNOMED Code(s): 079377757 (3) Leukocytosis Current Visit: Yes Status: Acute Priority: High Code(s): D72.829 - GUSTAVO VATED WHITE BLOOD CELL COUNT, UNSPECIFIED SNOMED Code(s): 075201799 Plan: #Edema -Initially noted 3 to 4 weeks ago and improved with oral Lasix 40 mg outpatient -Became progressively worse over the past week, and felt to be acutely worse after last gemcitabine treatment on 07/06/2022 -Noted development of orthopnea and dyspnea on exertion over the past 3 to 4 weeks -Echo on admission revealed no evidence of cardiomyopathy consistent with heart failure -Dexamethasone 8 mg twice daily initiated on 07/11/2022, with noted clinical response Adrenal insufficiency: -Cortisol 2.0 -Patient has not had immunotherapy since 03/08, however, could be delayed response from treatment -Patient has been started on dexamethsone and BP has recovered and is stable -Spoke with IM, will continue patient on dexamethasone #Chemotherapy-induced anemia and thrombocytopenia, neutrophilic leukocytosis -Neutrophilic leukocytosis is due to Neulasta, there is no evidence of infection at this time -Anemia and thrombocytopenia are secondary to carboplatin/gemcitabine treatment, with thrombocytopenia being particularly due to gemcitabine -Platelets 10,000 with epistaxis present. Hemoglobin 7.4. 1 unit of platelets ordered -CBC with differential daily -Transfuse for hemoglobin less than 7 and/or platelet count less than 10,000 or bleeding #Hyperkalemia, hyperphosphatemia, hypocalcemia -Noted to have persistent hyperkalemia and hyperphosphatemia during admission -NEETA previously noted is improving -Unclear if this is due to tumor lysis syndrome, which is less likely to occur in solid tumor malignancy. -Discussed with Dr. Rousseau. Uric acid improved, 7.9 today -If persistently elevated or increasing, we will initiate treatment with either allopurinol or rasburicase if uric acid is at 10 or greater #NEETA -Noted to be improving on today's labs -This is less likely to be due to gemcitabine given that gemcitabine is metabolized by the liver and not the kidney -Carboplatin is less nephrotoxic than cisplatin -Continue management per nephrology and primary team #Locally advanced/unresectable non-small cell lung cancer -Treated with single agent pembrolizumab from February 2021 through March 2022 with noted disease progression at that time -Initiated carboplatin/gemcitabine on 04/27/2022 and recently completed cycle 4 on 07/06/2022 -Staging CT scans performed on 07/09/2022. CT CAP revealed partial positive treatment response with no acute findings. -No acute inventions for lung cancer standpoint at this time -Follow-up with his primary oncologist Dr. Hoyos to review the results
[2022-07-13 17:27] LABS: Glucose,Whole Blood 136 mg/dL (70-110)
--- NOTE | 2022-07-13 18:32 | P.PN ---
Subjective Progress Note Date: 07/13/22 (delayed charting seen at 0830) Patient is a 61-year-old male with stage IV squamous cell carcinoma of the lung status post multiple rounds of chemotherapy, coronary artery disease, COPD, hypertension, and dyslipidemia who presented to the ER with complaints of worsening lower extremity edema despite taking oral Lasix. In the ER he underwent an extensive evaluation. His son have a white blood cell count of 31.1, hemoglobin 8.7, platelets 37, sodium 130, CO2 19, BUN 44, and creatinine 1.17. Chest x-ray was consistent with patient's prior known lung cancer. He was admitted and started on Lasix 40 mg IV every 12 hours. Oncology was consulted. Cardio was consulted. Echo without signs of CHF. He was started on steroids due to the possibility of this being related to his immunotherapy after discussion with oncology. He was noted to have persistent hyperkalemia and there was some concern for her lysis syndrome however felt to be less likely after discussion with oncology given his solid tumor malignancy. He was consulted due to his persistent hyperkalemia. Patient was found to have a random cortisol less than 2 in conjunction with hyponatremia, hyperkalemia, and low blood pressures and was subsequently diagnosed with adrenal insufficiency. Patient seen and examined at bedside. He is frustrated with urinating all evening. He is tired. Has intermittent nose bleed. LE edema improving. 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 Hyperkalemia , improving Locally advanced, unresectable non-small cell lung cancer Anemia and thrombocytopenia, chemotherapy-induced Acute kidney injury, undetermined etiology Hyponatremia Adrenal insufficiency Imaging: none new Data Review: Vital signs reviewed temperature 98.1, pulse 75, respirations 19, blood pressure 127/53, O2 sat 95% on room air Laboratory analysis reviewed and remarkable for white blood cell count 29.2, hemoglobin 7.4, platelets 10 (down from 11) disease, sodium 135, potassium 5.3, BUN 52, AST 73, ALT 102, alkaline phosphatase 180, phosphorus 4.9 Blood sugars reviewed a.m. fasting 118, last evening 145 Cortisol level 2 Plan: - Dexamethason 8 mg BID, Pts BP improved after steroids may have adrenal insufficiency -1 unit platelets -Case discussed with Dr. Luo. Patient does appear to be consistent with adr enal insufficiency due to his low sodium, elevated potassium, and low blood pressure on admission along with a random cortisol level of 2. We discussed that patient should proceed with outpatient dexamethasone suppression testing and maintain on steroids until that time. -Case was also discussed with Dr. Dolan of oncology to inform them that patient will need to remain on steroids until evaluated by endocrinology even once his lower extremity edema has resolved -Given IV diuresis and low platelet count patient will need repeat CBC and basic metabolic profile in a.m. - Lasix IV BID - Metorpolol on hold due to low BP - [place] for pain - ASA 81 mg daily, Lipitor 80 mg daily, - No AC due to Platelet count - Cardio signed off DVT prophylaxis: SCDs Anticipated discharge date: Pending Clinical Course Anticipated discharge place: Pending Clinical Course This dictation was prepared using [employer] voice recognition software. Though every attempt is made to correct errors during during dictation some may still exist. Objective - Vital Signs Vital signs: Vital Signs Temp 98.4 F 07/13/22 14:04 Pulse 76 07/13/22 15:38 Resp 18 07/13/22 14:04 BP 107/46 07/13/22 14:04 Pulse Ox 96 07/13/22 14:04 FiO2 21 07/13/22 07:37 Intake & Output 07/12/22 07/13/22 07/13/22 18:59 06:59 18:59 Intake Total 240 480 Output Total 0 Balance 0 240 480 Weight 83.5 kg Intake: Oral 240 480 Output: Post Void Residual 0 Other: Voiding Method Urinal Urinal # Voids 7 - Labs CBC & Chem 7: 07/13/22 08:35 07/13/22 08:35 Labs: Abnormal Lab Results - Last 24 Hours (Table) 07/12/22 07/12/22 07/13/22 Range/Units 18:25 20:23 07:36 WBC (3.8-10.6) k/uL RBC (4.30-5.90) m/uL Hgb (13.0-17.5) gm/dL Hct (39.0-53.0) % MCV (80.0-100.0) fL RDW (11.5-15.5) % Plt Count (150-450) k/uL Macrocytosis Sodium 132 L (137-145) mmol/L Potassium 5.6 H (3.5-5.1) mmol/L BUN 54 H (9-20) mg/dL Glucose 142 H (74-99) mg/dL POC Glucose (mg/dL) 145 H 118 H (70-110) mg/dL Calcium 8.1 L (8.4-10.2) mg/dL Phosphorus (2.5-4.5) mg/dL AST (17-59) U/L ALT (4-49) U/L Alkaline Phosphatase (38-126) U/L Total Protein (6.3-8.2) g/dL Albumin (3.5-5.0) g/dL 07/13/22 07/13/22 07/13/22 Range/Units 08:35 08:35 12:02 WBC 29.2 H (3.8-10.6) k/uL RBC 2.30 L (4.30-5.90) m/uL Hgb 7.4 L (13.0-17.5) gm/dL Hct 23.1 L (39.0-53.0) % MCV 100.3 H (80.0-100.0) fL RDW 26.3 H (11.5-15.5) % Plt Count 10 L* (150-450) k/uL Macrocytosis Marked A Sodium 135 L (137-145) mmol/L Potassium 5.3 H (3.5-5.1) mmol/L BUN 52 H (9-20) mg/dL Glucose 135 H (74-99) mg/dL POC Glucose (mg/dL) 185 H (70-110) mg/dL Calcium 8.2 L (8.4-10.2) mg/dL Phosphorus 4.9 H (2.5-4.5) mg/dL AST 73 H (17-59) U/L ALT 102 H (4-49) U/L Alkaline Phosphatase 180 H (38-126) U/L Total Protein 6.0 L (6.3-8.2) g/dL Albumin 3.0 L (3.5-5.0) g/dL 07/13/22 Range/Units 17:25 WBC (3.8-10.6) k/uL RBC (4.30-5.90) m/uL Hgb (13.0-17.5) gm/dL Hct (39.0-53.0) % MCV (80.0-100.0) fL RDW (11.5-15.5) % Plt Count (150-450) k/uL Macrocytosis Sodium (137-145) mmol/L Potassium (3.5-5.1) mmol/L BUN (9-20) mg/dL Glucose (74-99) mg/dL POC Glucose (mg/dL) 136 H (70-110) mg/dL Calcium (8.4-10.2) mg/dL Phosphorus (2.5-4.5) mg/dL AST (17-59) U/L ALT (4-49) U/L Alkaline Phosphatase (38-126) U/L Total Protein (6.3-8.2) g/dL Albumin (3.5-5.0) g/dL
[2022-07-13 21:11] LABS: Glucose,Whole Blood 159 mg/dL (70-110)
[2022-07-14 02:06] VITALS: RESP 16
[2022-07-14] MEDS: HYDROcodone/APAP 10-325MG 1 EACH TAB PO SCH ×2 (06:09→12:38)
[2022-07-14 07:39] LABS: Glucose,Whole Blood 107 mg/dL (70-110)
[2022-07-14] MEDS: IPRATROPIUM 0.5 MG/2.5 ML NEBU INHALATION SCH ×3 (07:41→15:44)
[2022-07-14 07:43] LABS: Anisocytosis Marked; Basophils % (A) 0 %; Eosinophils % (A) 0 %; HCT 21.8 % (39.0-53.0); Hypochromasia Slight; Lymphocytes # (A) 0.4 k/uL (1.0-4.8); Lymphocytes % (A) 2 %; MCHC 32.4 g/dL (31.0-37.0); Macrocytosis Marked; Mean Platelet Volume 10.9; Monocytes # (A) 0.6 k/uL (0-1.0); Monocytes % (A) 3 %; Neutrophils # (A) 20.7 k/uL (1.3-7.7); Neutrophils % (A) 94 %; WBC 21.9 k/uL (3.8-10.6)
[2022-07-14 07:44] LABS: Platelet Count 21 k/uL (150-450)
[2022-07-14 07:48] LABS: African American GFR (CKD) 84 (>60 ml/min/1.73 sqM); Anion Gap 7 mmol/L; Blood Urea Nitrogen 50 mg/dL (9-20); Calcium 8.1 mg/dL (8.4-10.2); Carbon Dioxide 25 mmol/L (22-30); Chloride 104 mmol/L (98-107); Glucose 100 mg/dL (74-99); Magnesium 2.3 mg/dL (1.6-2.3); Non-African American GFR(CKD) 73 (>60 ml/min/1.73 sqM); Potassium 4.7 mmol/L (3.5-5.1); Sodium 136 mmol/L (137-145)
[2022-07-14] MEDS: ATORVASTATIN 80 MG TAB PO SCH (08:30)
[2022-07-14] MEDS: METOPROLOL TARTRATE 25 MG TAB PO SCH (08:30)
[2022-07-14] MEDS: ASPIRIN 81 MG PO SCH (08:30)
[2022-07-14] MEDS: dexAMETHasone 4 MG TAB PO SCH (08:30)
[2022-07-14] MEDS: FUROSEMIDE 10 MG/ML 4 ML VIAL IV SCH (08:31)
[2022-07-14 10:31] VITALS: BMI 23.6
--- NOTE | 2022-07-14 10:55 | P.PN ---
Subjective Patient is seen in follow-up for acute kidney injury. Renal function stable. On IV Lasix. Edema improved. Admits to good urine output. Admits to coughing up blood. Vital signs are stable. General: No acute distress. HEENT: Head exam is unremarkable. LUNGS: No audible rhonchi or wheezes. HEART: Rate and Rhythm are regular. ABDOMEN: Soft, nontender. EXTREMITITES: 1+ edema. Objective - Vital Signs Vital signs: Vital Signs Temp 97.6 F 07/14/22 07:15 Pulse 72 07/14/22 07:51 Resp 16 07/14/22 07:15 BP 123/63 07/14/22 07:15 Pulse Ox 93 L 07/14/22 07:42 FiO2 21 07/14/22 07:42 Intake & Output 07/13/22 07/14/22 07/14/22 18:59 06:59 18:59 Intake Total 480 277 Balance 480 277 Weight 81 kg 81 kg Intake: Oral 480 Blood Product 277 Platelet Pheresis Pas 277 Psoralen Unit [id number] Other: Voiding Method Urinal # Voids 7 - Labs CBC & Chem 7: 07/14/22 06:41 07/14/22 06:41 Labs: Abnormal Lab Results - Last 24 Hours (Table) 07/13/22 07/13/22 07/13/22 Range/Units 12:02 17:25 21:06 WBC (3.8-10.6) k/uL RBC (4.30-5.90) m/uL Hgb (13.0-17.5) gm/dL Hct (39.0-53.0) % RDW (11.5-15.5) % Plt Count (150-450) k/uL Neutrophils # (1.3-7.7) k/uL Lymphocytes # (1.0-4.8) k/uL Macrocytosis Sodium (137-145) mmol/L BUN (9-20) mg/dL Glucose (74-99) mg/dL POC Glucose (mg/dL) 185 H 136 H 159 H (70-110) mg/dL Calcium (8.4-10.2) mg/dL 07/14/22 07/14/22 Range/Units 06:41 06:41 WBC 21.9 H (3.8-10.6) k/uL RBC 2.20 L (4.30-5.90) m/uL Hgb 7.0 L (13.0-17.5) gm/dL Hct 21.8 L (39.0-53.0) % RDW 26.0 H (11.5-15.5) % Plt Count 21 L D (150-450) k/uL Neutrophils # 20.7 H (1.3-7.7) k/uL Lymphocytes # 0.4 L (1.0-4.8) k/uL Macrocytosis Marked A Sodium 136 L (137-145) mmol/L BUN 50 H (9-20) mg/dL Glucose 100 H (74-99) mg/dL POC Glucose (mg/dL) (70-110) mg/dL Calcium 8.1 L (8.4-10.2) mg/dL Assessment and Plan Plan: Assessment: 1. Acute kidney injury mostly prerenal from hypovolemia. Improved. Creatinine peaked at 1.4 this admission and is fairly stable at 1.1 today. No hydronephrosis noted on kidney ultrasound. 2. Lower extremity edema. 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 Echocardiogram showed preserved ejection fraction with moderate pulmonary hyp ertension. Improved with diuresis. 3. Chemotherapy-induced anemia, thrombocytopenia and leukocytosis. Oncology following. 4. Hyperkalemia, hyperphosphatemia and hypocalcemia. Corrected calcium is normal. ?TLS. Patient has received adequate IV hydration this admission and is currently hypervolemic. 5. Hypervolemic hyponatremia. Also concern for adrenal insufficiency. Cortisol level low at 2. Patient is on dexamethasone. Blood pressure stable. Plan: Change Lasix to 40 mg orally twice daily. Scheduled to receive a unit of blood today. 1500 mL fluid restriction. Avoid nephrotoxins. Repeat BMP and magnesium level 2-3 days postdischarge. Follow up outpatient in 1 week.
[2022-07-14 11:18] LABS: Glucose,Whole Blood 155 mg/dL (70-110)
--- NOTE | 2022-07-14 13:30 | P.PN ---
Subjective Progress Note Date: 07/14/22 Principal diagnosis: NSCLC At today's visit patient is resting comfortably in bed. Patient is reporting improvement in lower extremity edema and SOB. He also reports epistaxis has resolved. He is reporting some pink sputum with coughing, denies clotting. S/P 1 unit of platelets yesterday. Platelets improved, 21,000. Hemoglobin 7.0. Objective - Vital Signs Vital signs: Vital Signs Temp 97.8 F 07/14/22 13:07 Pulse 74 07/14/22 13:07 Resp 16 07/14/22 13:07 BP 120/62 07/14/22 13:07 Pulse Ox 93 L 07/14/22 13:07 FiO2 21 07/14/22 07:42 Intake & Output 07/13/22 07/14/22 07/14/22 18:59 06:59 18:59 Intake Total 480 277 0 Balance 480 277 0 Weight 81 kg 81 kg Intake: Oral 480 Blood Product 277 0 Unit 0 Platelet Pheresis Pas 277 Psoralen Unit [id number] Other: Voiding Method Urinal # Voids 7 - Constitutional General appearance: Present: average body habitus, no acute distress - EENT Eyes: Present: anicteric sclerae, EOMI ENT: Present: hearing grossly normal - Respiratory Details: breathing is even unlabored - Cardiovascular Details: skin warm and dry - Peripheral edema leg Peripheral Edema: bilateral: 1+ - Integumentary Integumentary: Present: pale. Absent: cyanotic - Neurologic Neurologic Comment(s): grossly intact - Musculoskeletal Musculoskeletal: Present: strength equal bilaterally - Psychiatric Psychiatric: Present: A&O x's 3, appropriate affect, intact judgment & insight - Labs CBC & Chem 7: 07/14/22 06:41 07/14/22 06:41 Labs: Abnormal Lab Results - Last 24 Hours (Table) 07/13/22 07/13/22 07/14/22 Range/Units 17:25 21:06 06:41 WBC (3.8-10.6) k/uL RBC (4.30-5.90) m/uL Hgb (13.0-17.5) gm/dL Hct (39.0-53.0) % RDW (11.5-15.5) % Plt Count (150-450) k/uL Neutrophils # (1.3-7.7) k/uL Lymphocytes # (1.0-4.8) k/uL Macrocytosis Sodium 136 L (137-145) mmol/L BUN 50 H (9-20) mg/dL Glucose 100 H (74-99) mg/dL POC Glucose (mg/dL) 136 H 159 H (70-110) mg/dL Calcium 8.1 L (8.4-10.2) mg/dL Crossmatch 07/14/22 07/14/22 07/14/22 Range/Units 06:41 10:47 11:17 WBC 21.9 H (3.8-10.6) k/uL RBC 2.20 L (4.30-5.90) m/uL Hgb 7.0 L (13.0-17.5) gm/dL Hct 21.8 L (39.0-53.0) % RDW 26.0 H (11.5-15.5) % Plt Count 21 L D (150-450) k/uL Neutrophils # 20.7 H (1.3-7.7) k/uL Lymphocytes # 0.4 L (1.0-4.8) k/uL Macrocytosis Marked A Sodium (137-145) mmol/L BUN (9-20) mg/dL Glucose (74-99) mg/dL POC Glucose (mg/dL) 155 H (70-110) mg/dL Calcium (8.4-10.2) mg/dL Crossmatch See Detail Assessment and Plan (1) Anemia associated with chemotherapy Current Visit: Yes Status: Acute Priority: High Code(s): D64.81 - ANEMIA DUE TO ANTINEOPLASTIC CHEMOTHERAPY; T45.1X5A - ADVERSE EFFECT OF ANTINEOPLASTIC AND IMMUNOSUP DRUGS, INIT SNOMED Code(s): 319193730126333 (2) Lung cancer Current Visit: Yes Status: Chronic Priority: High Code(s): C34.90 - MALIGNANT NEOPLASM OF UNSP PART OF UNSP BRONCHUS OR LUNG SNOMED Code(s): 845524206 (3) Leukocytosis Current Visit: Yes Status: Acute Priority: High Code(s): D72.829 - ELEVATED WHITE BLOOD CELL COUNT, UNSPECIFIED SNOMED Code(s): 048237920 Plan: #Edema -Initially noted 3 to 4 weeks ago and improved with oral Lasix 40 mg outpatient -Became progressively worse over the past week, and felt to be acutely worse after last gemcitabine treatment on 07/06/2022 -Noted development of orthopnea and dyspnea on exertion over the past 3 to 4 weeks -Echo on admission revealed no evidence of cardiomyopathy consistent with heart failure -Dexamethasone 8 mg twice daily initiated on 07/11/2022, with noted clinical response Adrenal insufficiency: -Cortisol 2.0 -Patient has not had immunotherapy since 03/08, however, could be delayed response from treatment -Patient has been started on dexamethsone and BP has recovered and is stable -Spoke with IM, will continue patient on dexamethasone until outpt f/u with endocrine #Chemotherapy-induced anemia and thrombocytopenia, neutrophilic leukocytosis -Neutrophilic leukocytosis is due to Neulasta, there is no evidence of infection at this time -Anemia and thrombocytopenia are secondary to carboplatin/gemcitabine treatment, with thrombocytopenia being particularly due to gemcitabine -S/p 1 unit of platelets yesterday, 21,000 today. Epistaxis resolved, having some pink sputum, no clotting present. Hemoglobin 7.0 today. Spoke with internal medicine, patient is approaching monica of last chemotherapy cycle. Discussed giving 1 unit PRBCs prior to discharge today. -Will continue to monitor counts -Transfuse for hemoglobin less than 7 and/or platelet count less than 10,000 or bleeding #Hyperkalemia, hyperphosphatemia, hypocalcemia -Noted to have persistent hyperkalemia and hyperphosphatemia during admission -NEETA previously noted has improved -Unclear if this is due to tumor lysis syndrome, which is less likely to occur in solid tumor malignancy. -Discussed with Dr. Rousseau. Uric acid improved, 7.9 -If persistently elevated or increasing, we will initiate treatment with either allopurinol or rasburicase if uric acid is at 10 or greater #NEETA -Creatinine improved, 1.1 today -This is less likely to be due to gemcitabine given that gemcitabine is metabolized by the liver and not the kidney -Carboplatin is less nephrotoxic than cisplatin -Continue management per nephrology and primary team #Locally advanced/unresectable non-small cell lung cancer -Treated with single agent pembrolizumab from February 2021 through March 2022 with noted disease progression at that time -Initiated carboplatin/gemcitabine on 04/27/2022 and recently completed cycle 4 on 07/06/2022 -Staging CT scans performed on 07/09/2022. CT CAP revealed partial positive treatment response with no acute findings. Discussed findings with patient -No acute inventions for lung cancer standpoint at this time -Due to recent insurance changes within our clinic, patient is currently working on switching insurance plan. If patient is unable to change insurance coverage, will place referral for new oncologist who accepts his insurance. Discussed with patient, and he reports he is actively working with Medicaid. IM has spoke with SW to assist patient
--- NOTE | 2022-07-14 14:06 | P.DS ---
Providers Date of admission: 07/09/22 23:03 Expected date of discharge: 07/14/22 Attending physician: Sukhwinder Issa MD Consults: 07/09/22 23:00 Consult Physician Routine Consulting Provider: Juan Carlos Hoyos Consult Reason/Comments: known Do you want consulting provider notified?: Yes 07/10/22 12:30 Consult Physician Routine Consulting Provider: Robb Ardon Consult Reason/Comments: CHF, chest pain Do you want consulting provider notified?: Yes 07/12/22 08:18 Consult Physician Routine Consulting Provider: Valentin Luo Consult Reason/Comments: persistent hyperkalemia Do you want consulting provider notified?: Yes Primary care physician: Stated None Hospital Course: Discharge Diagnosis: Bilateral lower extremity edema with neuropathy- maybe related to gemcitabine Adrenal insufficiency Hyperkalemia, hyperphosphatemia , improving Locally advanced, unresectable non-small cell lung cancer Anemia and thrombocytopenia, chemotherapy-induced Acute kidney injury, undetermined etiology Hyponatremia Hospital Course: Patient is a 61-year-old male with stage IV squamous cell carcinoma of the lung status post multiple rounds of chemotherapy, coronary artery disease, COPD, hypertension, and dyslipidemia who presented to the ER with complaints of worsening lower extremity edema despite taking oral Lasix. In the ER he underwent an extensive evaluation. His son have a white blood cell count of 31.1, hemoglobin 8.7, platelets 37, sodium 130, CO2 19, BUN 44, and creatinine 1.17. Chest x-ray was consistent with patient's prior known lung cancer. He was admitted and started on Lasix 40 mg IV every 12 hours. Oncology was consulted. Cardio was consulted. Echo without signs of CHF. He was started on steroids due to the possibility of this being related to his immunotherapy after discussion with oncology. He was noted to have persistent hyperkalemia and there was some concern for her lysis syndrome however felt to be less likely after discussion with oncology given his solid tumor malignancy. He was consulted due to his persistent hyperkalemia. Patient was found to have a random cortisol less than 2 in conjunction with hyponatremia, hyperkalemia, and low blood pressures and was subsequently diagnosed with adrenal insufficiency. He continued to do well. He did have low platelets and required 1 unit of platelets during his hospital stay and 1 unit of packed red blood cells. His edema improved. His hyponatremia, hyperkalemia, and low blood pressures resolved with the addition of dexamethasone. Follow-up: Dr. Hoyos and oncology as able. Apparently they are no longer taking his insurance patient is aware and is attempting to find a new oncologist or switch his insurance. Dr. Luo in 1 week. He would like him to have a basic metabolic profile and magnesium done prior which has been ordered. Dr. Chau for workup of adrenal insufficiency. He was given a list of area PCPs. Patient seen and examined at bedside. Feeling better today, LE edema is improving, No chest pain, mild shortness of breath with exacerbation. Vital signs reviewed and stable. General: nontoxic, no distress, appears at stated age Derm: warm, dry Cardiovascular: S1S2 reg, no murmur, positive posterior tibial pulse bilateral, Lungs: Decrease bs bilateral, no rhonchi, no rales , no accessory muscle use Abdominal: soft, nontender to palpation, no guarding, no appreciable organomegaly Ext: no gross muscle atrophy, 2+ edema b/l le, no contractures Neuro: CN II-XI grossly intact, no focal neuro deficits Psych: Alert, oriented, appropriate affect A total of 42 minutes of time were spent preparing this complex discharge summary. Patient was discharged on 07/14/22. This dictation was prepared using [employer] voice recognition software. Though every attempt is made to correct errors during during dictation some may still exist. Patient Condition at Discharge: Good Plan - Discharge Summary Discharge Rx Participant: Yes New Discharge Prescriptions: New Furosemide [Lasix] 40 mg PO BID@0900,1600 #60 tab dexAMETHasone ORAL [Hexadrol] 8 mg PO BID #120 tab Continue Aspirin 81 mg PO DAILY #30 chew Ondansetron [Zofran] 4 mg PO Q6H PRN PRN Reason: Nausea HYDROcodone/APAP 10-325MG [[place] 10-325] 1 tab PO QID Oxymetazoline 0.05% Nasl [place] [Afrin 0.05% Nasal [place]] 2 spray NASAL TID PRN 7 Days #1 each PRN Reason: Epistaxis Spiriva Respimat 1.25mcg/Actuation Mist 2 puff INHALATION RT-HS Atorvastatin [Lipitor] 80 mg PO DAILY Metoprolol Tartrate [Lopressor] 25 mg PO BID Discontinued lisinopriL [Zestril] 5 mg PO DAILY Furosemide [Lasix] 40 mg PO DAILY Discharge Medication List Aspirin 81 mg PO DAILY #30 chew 03/05/17 [Rx] Atorvastatin [Lipitor] 80 mg PO DAILY 03/04/21 [History] Metoprolol Tartrate [Lopressor] 25 mg PO BID 03/04/21 [History] HYDROcodone/APAP 10-325MG [[place] 10-325] 1 tab PO QID 05/09/22 [History] Ondansetron [Zofran] 4 mg PO Q6H PRN 05/09/22 [History] Oxymetazoline 0.05% Nasl [place] [Afrin 0.05% Nasal [place]] 2 spray NASAL TID PRN 7 Days #1 each 05/11/22 [Rx] Spiriva Respimat 1.25mcg/Actuation Mist 2 puff INHALATION RT-HS 07/09/22 [Hist ory] Furosemide [Lasix] 40 mg PO BID@0900,1600 #60 tab 07/14/22 [Rx] dexAMETHasone ORAL [Hexadrol] 8 mg PO BID #120 tab 07/14/22 [Rx] Follow up Appointment(s)/Referral(s): Juan Carlos Hoyos MD [STAFF PHYSICIAN] - 1 Week (as able with insurance) None,Stated [Primary Care Provider] - 1-2 days Valentin Luo DO [STAFF PHYSICIAN] - 1 Week Kenny Chau MD [REFERRING] - 1 Week Ambulatory/Diagnostic Orders: Basic Metabolic Panel [LAB.AMB] Time Frame: 3 Days, Location: None Selected Magnesium [LAB.AMB] Time Frame: 3 Days, Location: None Selected Activity/Diet/Wound Care/Special Instructions: Activity: as tolerated Diet: Heart Healthy, 1500 mL fluid restriction Special Instructions: If you develop abnormal bruising or bleeding, such as bleeding gums and bleeding nose, please seek medical attention Discharge/Stand Alone Forms: Who Do I Call?, Community Resources, Area PCPs Discharge Disposition: HOME SELF-CARE
[2022-07-14 15:55] LABS: Follicle Stimulating Hormone 13.5 mIU/mL; Luteinizing Hormone 14.8 mIU/mL
[2022-07-14] MEDS ORDERED: FUROSEMIDE 40 MG TAB PO SCH (16:00)
[2022-07-14 16:25] VITALS: BP 130/75; PULSE 77; TEMP 98.3
== END 2022-07-14 17:09 | disposition home or self-care (01) | DRG 694 ==
LOC: EC 20:03 → 5NMEDONC 23:03
PROVIDERS: ADMIT Internal Medicine; ATTEND Internal Medicine
PROC: 30233R1 Transfusion of Nonautologous Platelets into Peripheral Vein, Percutaneous Approach (ICD-10-PCS; principal; 2022-07-13)
PROC: 30233N1 Transfusion of Nonautologous Red Blood Cells into Peripheral Vein, Percutaneous Approach (ICD-10-PCS; 2022-07-14)
DX: E88.09 Other disorders of plasma-protein metabolism, not elsewhere classified (principal); G62.9 Polyneuropathy, unspecified; T45.1X5A Adverse effect of antineoplastic and immunosuppressive drugs, initial encounter; R60.1 Generalized edema; E87.1 Hypo-osmolality and hyponatremia; C34.90 Malignant neoplasm of unspecified part of unspecified bronchus or lung; E27.40 Unspecified adrenocortical insufficiency; E87.5 Hyperkalemia; E83.39 Other disorders of phosphorus metabolism; N17.9 Acute kidney failure, unspecified; D64.81 Anemia due to antineoplastic chemotherapy; I50.9 Heart failure, unspecified; I95.9 Hypotension, unspecified; J44.9 Chronic obstructive pulmonary disease, unspecified; R04.0 Epistaxis; D69.6 Thrombocytopenia, unspecified; X58.XXXA Exposure to other specified factors, initial encounter; D61.810 Antineoplastic chemotherapy induced pancytopenia; D63.0 Anemia in neoplastic disease; D69.59 Other secondary thrombocytopenia; D72.829 Elevated white blood cell count, unspecified; E78.5 Hyperlipidemia, unspecified; E83.51 Hypocalcemia; E86.1 Hypovolemia; I11.0 Hypertensive heart disease with heart failure; I25.10 Atherosclerotic heart disease of native coronary artery without angina pectoris; I25.2 Old myocardial infarction; I42.8 Other cardiomyopathies; I27.20 Pulmonary hypertension, unspecified; I08.1 Rheumatic disorders of both mitral and tricuspid valves; Z79.82 Long term (current) use of aspirin; Z79.899 Other long term (current) drug therapy; Z85.118 Personal history of other malignant neoplasm of bronchus and lung; Z87.891 Personal history of nicotine dependence; Z88.0 Allergy status to penicillin; Z95.5 Presence of coronary angioplasty implant and graft
CPT/HCPCS: 36415; 71045; 76770; 80048; 80053; 82024; 82533; 83001; 83002; 83605; 83735; 83880; 84100; 84132; 84484; 84550; 85025; 85027; 85610; 85730; 86850; 86900; 86901; 86920; 93005; 93306; 94640; 94760; 96374; 96375; 99285

== ENCOUNTER → 2022-07-09 | Outpatient (CLI) | payer OTHER ==
--- NOTE | 2022-07-12 09:18 | CT ---
EXAMINATION TYPE: CT ChestAbdPelvis w con DATE OF EXAM: 07/09/2022 COMPARISON: Most recent CT March 31, 2022 and older studies HISTORY: H/O LUNG ca, F/U CT DLP: 839.4 mGycm. Automated Exposure Control for Dose Reduction was Utilized. CONTRAST: CT scan of the thorax, abdomen and pelvis is performed with oral and with IV Contrast, patient inject ed with 100 mL of Isovue 300. FINDINGS: LUNGS: Background moderate underlying emphysematous changes are redemonstrated. Improved right suprah ilar spiculated mass measuring approximately 3.6 x 2.8 cm current study decreased from approximately 6.7 x 6.0 cm prior study. Adjacent linear scarring is redemonstrated. Slightly improved posterior left perihilar spiculated mass now measures approximately 3.4 x 2.4 cm cu rrent study axial image 29 versus 4.2 x 3.3 cm prior study image 28 . Scattered mild left lung linear scarring redemonstrated. No pleural effusion or pneumothorax seen hilary aterally. MEDIASTINUM: Abnormal right hilar and subcarinal lymph nodes redemonstrated. Subcarinal lymph node me asures 2.1 x 1.2 cm fairly stable in size from most recent study. Right hilar adenopathy appears impr solitario. Stable enlarged paraCarinal lymph node axial image 25. Severe three-vessel coronary artery rafita cification redemonstrated. No cardiomegaly or pericardial effusion. OTHER: Less prominent right supraclavicular lymph node axial image 8 on current study. LIVER/GB: Liver remains diffusely low dense. PANCREAS: No significant abnormality is seen. SPLEEN: No significant abnormality is seen. ADRENALS: No significant abnormality is seen. KIDNEYS: No significant abnormality is seen. BOWEL: Oral contrast has not reached colonic level. No suspicious small or large bowel dilatation. GENITAL ORGANS: No gross abnormality seen. LYMPH NODES: No greater than 1cm abdominal or pelvic lymph nodes are appreciated. OSSEOUS STRUCTURES: [id number]-[id number] multilevel spurring in the spine. Moderate to severe disc space narrowing L4-L5 level is redemonstrated. Moderate disc space narrowing and vacuum disc phenomenon L5- S1 level. OTHER: Tiny fat-containing umbilical hernia. IMPRESSION: 1. Partial positive treatment response as detailed above. 2. No acute findings are evident.
== END | disposition home or self-care (01) ==
LOC: RADCTMAIN 13:09
PROVIDERS: ATTEND Internal Medicine Hematology & Oncology
DX: C34.12 Malignant neoplasm of upper lobe, left bronchus or lung (principal)
CPT/HCPCS: 82565; 84520; 71260; 74177; 36415; Q9967

== ENCOUNTER 2022-08-27 06:39 | Inpatient (IN) | payer OTHER ==
[2022-08-27] MEDS ORDERED: IPRATROPIUM-ALBUTEROL 3 ML NEB INHALATION STA (06:40)
--- NOTE | 2022-08-27 06:43 | ED ---
SOB HPI <Anastacio Shay - Last Filed: 08/27/22 08:31> - General Source: patient, RN notes reviewed Mode of arrival: EMS Limitations: no limitations - History of Present Illness MD Complaint: shortness of breath, cough <Alissa Flowers - Last Filed: 08/27/22 12:24> - General Chief Complaint: Shortness of Breath Stated Complaint: Shortness of Breath Time Seen by Provider: 08/27/22 06:40 - History of Present Illness Initial Comments: This is a 61-year-old male who presents to the emergency department for difficulty breathing. Patient called EMS this morning, as he was woken from his sleep by feelings of palpitations and shortness of breath. States that when EMS arrived, he did start to feel better, and he is unsure if he panicked or if there was something else going wrong. When EMS arrived, he was satting at 90- 92% on room air. EMS subsequently put him on 2 L via nasal cannula. Patient has COPD and is currently being treated for stage IV lung cancer. Currently managed by Dr. Hoyos, hematology oncology. He is on a three-month break from any tr eatment at this time. He has felt like he has had increasing work of breathing over the last couple of days. Additionally, states that he has been having water retention and is scheduled to see nephrology today. Also reports a productive cough with brown sputum production. Denies any fevers, chills, sore throat, cough, chest pain, abdominal pain, nausea, vomiting, diarrhea, back pain, or headaches. (Alissa Flowers) - Related Data Home Medications Medication Instructions Recorded Confirmed Atorvastatin [Lipitor] 80 mg PO DAILY 03/04/21 08/27/22 Metoprolol Tartrate [Lopressor] 25 mg PO BID 03/04/21 08/27/22 HYDROcodone/APAP 10-325MG [[place] 1 tab PO QID 05/09/22 08/27/22 10-325] Ondansetron [Zofran] 4 mg PO Q6H PRN 05/09/22 08/27/22 Spiriva Respimat 1.25mcg/Actuation 2 puff INHALATION RT-HS 07/09/22 08/27/22 Mist Hydrocortisone [Cortef] 20 mg PO DAILY@1600 08/27/22 08/27/22 Hydrocortisone [Cortef] 30 mg PO DAILY@0900 08/27/22 08/27/22 lisinopriL [Zestril] 5 mg PO DAILY 08/27/22 08/27/22 Previous Rx's Medication Instructions Recorded Aspirin 81 mg PO DAILY #30 chew 03/05/17 Furosemide [Lasix] 40 mg PO BID@0900,1600 #60 tab 07/14/22 Allergies Allergy/AdvReac Type Severity Reaction Status Date / Time Penicillins Allergy Dyspnea & Verified 08/27/22 09:13 Hives all over Review of Systems ROS Other: All systems not noted in ROS Statement are negative. <Anastacio Shay - Last Filed: 08/27/22 08:31> ROS Other: All systems not noted in ROS Statement are negative. <Alissa Flowers - Last Filed: 08/27/22 12:24> ROS Statement: Those systems with pertinent positive or pertinent negative responses have been documented in the HPI. Past Medical History Past Medical History: Chest Pain / Angina, Myocardial Infarction ([place]), Pneumonia Additional Past Medical History / Comment(s): SVT with chest pain/palpitations-chemically converted. Last Myocardial Infarction Date:: 2017 History of Any Multi-Drug Resistant Organisms: MRSA Date of last positivie culture/infection: 12/23/2013 MDRO Source:: Face Past Surgical History: Heart Catheterization With Stent Additional Past Surgical History / Comment(s): I&D of R inframandibular abscess. 3 cardiac stents. Past Anesthesia/Blood Transfusion Reactions: No Reported Reaction Date of Last Stent Placement:: 2017 Additional Past Alcohol Use History / Comment(s): Pt started smoking when he was 13 1ppd and recently quit within the last month or so. Drinks occasionally and eats marijuana gummies. Past Drug Use History: Marijuana Additional Drug Use History / Comment(s): Pt denies any drug use. [facility] documents marijuana. - Past Family History Father Family Medical History: No Reported History Additional Family Medical History / Comment(s): Father of "natural causes" at the age of 79yrs. Mother Family Medical History: COPD, Coronary Artery Disease (CAD) Additional Family Medical History / Comment(s): Mother is 76yrs old. She has had several MIs, 6 cardiac stents and a 4 vessel CABG. <Alissa Flowers - Last Filed: 08/27/22 12:24> General Exam Limitations: no limitations General appearance: alert, in no apparent distress Head exam: Present: atraumatic, normocephalic, normal inspection Respiratory exam: Present: decreased breath sounds, prolonged expiratory, other (course breath sounds bilaterally) Cardiovascular Exam: Present: regular rate, normal rhythm, normal heart sounds. Absent: systolic murmur, diastolic murmur, rubs, gallop, clicks Extremities exam: Present: other (3+ bilateral pitting edema) Neurological exam: Present: alert, oriented X3, CN II-XII intact Psychiatric exam: Present: normal affect, normal mood Skin exam: Present: warm, dry, intact, normal color. Absent: rash <Alissa Flowers - Last Filed: 08/27/22 12:24> Course <Anastacio Shay - Last Filed: 08/27/22 08:31> Vital Signs 08/27/22 08/27/22 08/27/22 06:40 06:46 07:37 Temperature 98.2 F Pulse Rate 72 82 Respiratory 16 16 Rate Blood Pressure 186/102 O2 Sat by Pulse 99 Oximetry 08/27/22 08/27/22 08/27/22 07:48 08:35 08:38 Temperature Pulse Rate 84 222 H 74 Respiratory 40 H 18 Rate Blood Pressure 165/103 O2 Sat by Pulse 94 L Oximetry 08/27/22 11:30 Temperature Pulse Rate 92 Respiratory 20 Rate Blood Pressure 127/78 O2 Sat by Pulse 97 Oximetry - Reevaluation(s) Reevaluation #1: 08/27/22 08:31 Repeat EKG at 0828 showing sinus rhythm with a ventricular rate of 73, ME interval 142, QRS duration 82, QTC [address] segment elevation. 08/27/22 08:31 Patient had sustained a brief episode of narrow complex tachycardia likely SVT rate of around 200. This was not captured by EKG. Patient remained alert with stable blood pressure, episode lasting approximately 30 seconds. (Anastacio Shay) Medical Decision Making - Lab Data Result diagrams: 08/27/22 06:41 <Anastacio Shay - Last Filed: 08/27/22 08:31> - Lab Data Result diagrams: 08/27/22 06:41 08/27/22 06:41 - Radiology Data Radiology results: report reviewed, image reviewed <Alissa Flowers - Last Filed: 08/27/22 12:24> - Medical Decision Making This is a 61-year-old male who presents to the emergency department for shortness of breath. Was pt. sent in by a medical professional or institution? @ -No Did you speak to anyone other than the patient for history? @ -No Did you review nursing and triage notes? @ -Yes, and I agree, it is accurate with regards to the patient's symptoms. Were old charts reviewed? @ -No Differential Diagnosis? @ -Differential Dyspnea: Coronary syndrome, arrhythmia, tamponade, asthma, COPD, pulmonary embolism, pneumonia, pneumothorax, pulmonary effusion, anaphylaxis, diabetic ketoacidosis, flailed chest, pulmonary contusion, diaphragmatic rupture, anemia, neuromuscular, this is not meant to be an all-inclusive list. EKG interpreted by me (3pts min.)? @ -EKG interpreted by me demonstrating the following: Sinus rhythm. Ventricular rate 71 bpm, ME interval 146 ms, QRS duration 87 ms, QTC 391 ms. X-rays interpreted by me (1pt min.)? @ -Chest x-ray obtained. My interpretation identifies bilateral perihilar infiltrates and a right upper lobe infiltrate. CT interpreted by me (1pt min.)? @ -Not obtained U/S interpreted by me (1pt. min.)? @ -Not obtained What testing was considered but not performed? (CT, X-rays, U/S, labs)? Why? @ -None What meds were considered but not given? Why? @ -None Did you discuss the management of the patient with other professionals? @ -Yes, Dr. Laughlin, who accepts the patient for admission. Did you reconcile home meds? @ -Yes Was smoking cessation discussed for >3mins.? @ -No Was critical care preformed (if so, how long)? @ -No Were there social determinants of health that impacted care today? How? (Homelessness, low income, unemployed, alcoholism, drug addiction, transportation, low edu. Level, literacy, decrease access to med. care, detention, rehab)? @ -No Was there de-escalation of care discussed even if they declined? (Discuss DNR or withdrawal of care, Hospice)? @ -No What co-morbidities impacted this encounter? (DM, HTN, Smoking, COPD, CAD, Cancer, CVA, Hep., AIDS, mental health diagnosis, sleep apnea, morbid obesity)? @ -COPD, lung cancer Was patient admitted / discharged? @ -Admitted. Chest x-ray obtained revealing bilateral perihilar infiltrates and a right upper lobe infiltrate. Patient started on pneumonia protocol with ceftriaxone and azithromycin. Blood cultures obtained prior. Lab work reveals an elevated troponin at 0.041. COVID, influenza, and RSV testing were negative. Patient had an episode of SVT emergency department lasting about 30 seconds with his heart rate reaching 222 BPM, but he was able to convert on his own. This was not captured on an EKG, however we were able to print out the strip captured on the quality assurance monitor and scan it into the chart. Patient admitted to medicine for pneumonia and SVT. Serial troponins ordered. Consults placed for cardiology and pulmonology. Undiagnosed new problem with uncertain prognosis? @ -None Drug Therapy requiring intensive monitoring for toxicity (Heparin, Nitro, Insulin, Cardizem)? @ -None Were any procedures done? @ -None Diagnosis/symptom? @ -Pneumonia, SVT Acute, or Chronic, or Acute on Chronic? @ -Acute Uncomplicated (without systemic symptoms) or Complicated (systemic symptoms)? @ -Complicated Side effects of treatment? @ -None Exacerbation, Progression, or Severe Exacerbation] @ -Not applicable Poses a threat to life or bodily function? @ -Yes This case was discussed in detail with the attending ED physician, Dr. Shay. Presentation, findings, and treatment plan discussed in detail as well. (Alissa Flowers) - Lab Data Lab Results 08/27/22 08/27/22 08/27/22 Range/Units 06:41 06:41 06:41 WBC 7.6 (3.8-10.6) k/uL RBC 3.19 L (4.30-5.90) m/uL Hgb 10.0 L D (13.0-17.5) gm/dL Hct 32.2 L (39.0-53.0) % MCV 101.0 H (80.0-100.0) fL MCH 31.3 (25.0-35.0) pg MCHC 31.0 (31.0-37.0) g/dL RDW 18.3 H (11.5-15.5) % Plt Count 289 D (150-450) k/uL MPV 8.3 Neutrophils % 59 % Lymphocytes % 28 % Monocytes % 11 % Eosinophils % 0 % Basophils % 0 % Neutrophils # 4.5 (1.3-7.7) k/uL Lymphocytes # 2.1 (1.0-4.8) k/uL Monocytes # 0.8 (0-1.0) k/uL Eosinophils # 0.0 (0-0.7) k/uL Basophils # 0.0 (0-0.2) k/uL Hypochromasia Marked Anisocytosis Slight Macrocytosis Moderate PT 10.3 (9.0-12.0) sec INR 1.0 (<1.2) APTT 23.1 (22.0-30.0) sec Sodium 138 (137-145) mmol/L Potassium 3.9 (3.5-5.1) mmol/L Chloride 107 (98-107) mmol/L Carbon Dioxide 26 (22-30) mmol/L Anion Gap 5 mmol/L BUN 34 H (9-20) mg/dL Creatinine 1.11 (0.66-1.25) mg/dL Est GFR (CKD-EPI)AfAm 83 (>60 ml/min/1.73 sqM) Est GFR (CKD-EPI)NonAf 72 (>60 ml/min/1.73 sqM) Glucose 90 (74-99) mg/dL Plasma Lactic Acid Eugene (0.7-2.0) mmol/L Calcium 8.1 L (8.4-10.2) mg/dL Total Bilirubin 0.6 (0.2-1.3) mg/dL AST 29 (17-59) U/L ALT 16 (4-49) U/L Alkaline Phosphatase 56 (38-126) U/L Troponin I (0.000-0.034) ng/mL C-Reactive Protein (<1.0) mg/dL NT-Pro-B Natriuret Pep pg/mL Total Protein 6.3 (6.3-8.2) g/dL Albumin 2.8 L (3.5-5.0) g/dL Influenza Type A (PCR) (Not Detectd) Influenza Type B (PCR) (Not Detectd) RSV (PCR) (Not Detectd) SARS-CoV-2 (PCR) (Not Detectd) 08/27/22 08/27/22 08/27/22 Range/Units 06:41 06:41 06:41 WBC (3.8-10.6) k/uL RBC (4.30-5.90) m/uL Hgb (13.0-17.5) gm/dL Hct (39.0-53.0) % MCV (80.0-100.0) fL MCH (25.0-35.0) pg MCHC (31.0-37.0) g/dL RDW (11.5-15.5) % Plt Count (150-450) k/uL MPV Neutrophils % % Lymphocytes % % Monocytes % % Eosinophils % % Basophils % % Neutrophils # (1.3-7.7) k/uL Lymphocytes # (1.0-4.8) k/uL Monocytes # (0-1.0) k/uL Eosinophils # (0-0.7) k/uL Basophils # (0-0.2) k/uL Hypochromasia Anisocytosis Macrocytosis PT (9.0-12.0) sec INR (<1.2) APTT (22.0-30.0) sec Sodium (137-145) mmol/L Potassium (3.5-5.1) mmol/L Chloride (98-107) mmol/L Carbon Dioxide (22-30) mmol/L Anion Gap mmol/L BUN (9-20) mg/dL Creatinine (0.66-1.25) mg/dL Est GFR (CKD-EPI)AfAm (>60 ml/min/1.73 sqM) Est GFR (CKD-EPI)NonAf (>60 ml/min/1.73 sqM) Glucose (74-99) mg/dL Plasma Lactic Acid Eugene 1.2 (0.7-2.0) mmol/L Calcium (8.4-10.2) mg/dL Total Bilirubin (0.2-1.3) mg/dL AST (17-59) U/L ALT (4-49) U/L Alkaline Phosphatase (38-126) U/L Troponin I 0.041 H* (0.000-0.034) ng/mL C-Reactive Protein (<1.0) mg/dL NT-Pro-B Natriuret Pep 2250 pg/mL Total Protein (6.3-8.2) g/dL Albumin (3.5-5.0) g/dL Influenza Type A (PCR) (Not Detectd) Influenza Type B (PCR) (Not Detectd) RSV (PCR) (Not Detectd) SARS-CoV-2 (PCR) (Not Detectd) 08/27/22 08/27/22 Range/Units 06:41 07:35 WBC (3.8-10.6) k/uL RBC (4.30-5.90) m/uL Hgb (13.0-17.5) gm/dL Hct (39.0-53.0) % MCV (80.0-100.0) fL MCH (25.0-35.0) pg MCHC (31.0-37.0) g/dL RDW (11.5-15.5) % Plt Count (150-450) k/uL MPV Neutrophils % % Lymphocytes % % Monocytes % % Eosinophils % % Basophils % % Neutrophils # (1.3-7.7) k/uL Lymphocytes # (1.0-4.8) k/uL Monocytes # (0-1.0) k/uL Eosinophils # (0-0.7) k/uL Basophils # (0-0.2) k/uL Hypochromasia Anisocytosis Macrocytosis PT (9.0-12.0) sec INR (<1.2) APTT (22.0-30.0) sec Sodium (137-145) mmol/L Potassium (3.5-5.1) mmol/L Chloride (98-107) mmol/L Carbon Dioxide (22-30) mmol/L Anion Gap mmol/L BUN (9-20) mg/dL Creatinine (0.66-1.25) mg/dL Est GFR (CKD-EPI)AfAm (>60 ml/min/1.73 sqM) Est GFR (CKD-EPI)NonAf (>60 ml/min/1.73 sqM) Glucose (74-99) mg/dL Plasma Lactic Acid Eugene (0.7-2.0) mmol/L Calcium (8.4-10.2) mg/dL Total Bilirubin (0.2-1.3) mg/dL AST (17-59) U/L ALT (4-49) U/L Alkaline Phosphatase (38-126) U/L Troponin I (0.000-0.034) ng/mL C-Reactive Protein 3.2 H (<1.0) mg/dL NT-Pro-B Natriuret Pep pg/mL Total Protein (6.3-8.2) g/dL Albumin (3.5-5.0) g/dL Influenza Type A (PCR) Not Detected (Not Detectd) Influenza Type B (PCR) Not Detected (Not Detectd) RSV (PCR) Not Detected (Not Detectd) SARS-CoV-2 (PCR) Not Detected (Not Detectd) Disposition <Anastacio Shay - Last Filed: 08/27/22 08:31> <Alissa Flowers - Last Filed: 08/27/22 12:24> Clinical Impression: Pneumonia, SVT (supraventricular tachycardia) Disposition: ADMITTED IP TO THIS HOSP
--- NOTE | 2022-08-27 07:24 | XR ---
EXAMINATION TYPE: XR chest 2V DATE OF EXAM: 08/27/2022 COMPARISON: 07/09/2022 INDICATION: Difficulty breathing short of breath TECHNIQUE: Frontal and lateral views of the chest are obtained. FINDINGS: The heart size is normal. The pulmonary vasculature is somewhat prominent. There is an infiltrate within the right upper lobe. Bilateral perihilar infiltrates are present great er to the left hilar region. Findings are nonspecific. Consider atypical pulmonary edema.. Pneumonia should be considered. IMPRESSION: 1. Perihilar infiltrates and right upper lobe infiltrate. Correlate for pneumonia. Atypical pulmonary edema should also be considered. Follow-up is recommended.
[2022-08-27] MEDS ORDERED: PNEUMONIA PROTOCOL UTILIZED 1 EACH MISC PO PRN (07:29)
[2022-08-27 07:53] LABS: Partial Thromboplastin Time 23.1 sec (22.0-30.0); Prothrombin Time 10.3 sec (9.0-12.0)
[2022-08-27 07:59] LABS: ALT 16 U/L (4-49); AST 29 U/L (17-59); African American GFR (CKD) 83 (>60 ml/min/1.73 sqM); Albumin 2.8 g/dL (3.5-5.0); Alkaline Phosphatase 56 U/L (38-126); Anion Gap 5 mmol/L; Blood Urea Nitrogen 34 mg/dL (9-20); Calcium 8.1 mg/dL (8.4-10.2); Carbon Dioxide 26 mmol/L (22-30); Chloride 107 mmol/L (98-107); Glucose 90 mg/dL (74-99); Non-African American GFR(CKD) 72 (>60 ml/min/1.73 sqM); Potassium 3.9 mmol/L (3.5-5.1); Sodium 138 mmol/L (137-145); Total Bilirubin 0.6 mg/dL (0.2-1.3); Total Protein 6.3 g/dL (6.3-8.2)
[2022-08-27 08:24] LABS: Anisocytosis Slight; Basophils % (A) 0 %; Eosinophils % (A) 0 %; HCT 32.2 % (39.0-53.0); Hypochromasia Marked; Lymphocytes # (A) 2.1 k/uL (1.0-4.8); Lymphocytes % (A) 28 %; MCH 31.3 pg (25.0-35.0); Macrocytosis Moderate; Mean Platelet Volume 8.3; Monocytes # (A) 0.8 k/uL (0-1.0); Monocytes % (A) 11 %; Neutrophils # (A) 4.5 k/uL (1.3-7.7); Neutrophils % (A) 59 %; RBC 3.19 m/uL (4.30-5.90); RDW 18.3 % (11.5-15.5); WBC 7.6 k/uL (3.8-10.6)
[2022-08-27] MEDS ORDERED: AZITHROMYCIN 500 MG in SODIUM CHLORIDE 0.9% 250 ML IVPB STA (08:28)
[2022-08-27 08:52] LABS: Platelet Count 289 k/uL (150-450)
[2022-08-27] MEDS ORDERED: ACETAMINOPHEN TAB 325 MG TAB PO PRN (08:55)
[2022-08-27] MEDS ORDERED: HYDROcodone/APAP 5-325MG 1 EACH TAB PO PRN (08:55)
[2022-08-27] MEDS ORDERED: NALOXONE 0.4 MG/ML 1 ML VIAL IV PRN (08:55)
[2022-08-27] MEDS ORDERED: ONDANSETRON 4 MG/2 ML VIAL IVP PRN (08:55)
[2022-08-27] MEDS ORDERED: METOPROLOL TARTRATE 25 MG TAB PO SCH (09:00)
[2022-08-27] MEDS ORDERED: ONDANSETRON 4 MG TAB PO PRN (10:14)
--- NOTE | 2022-08-27 13:16 | P.HPIM ---
History of Present Illness H&P Date: 08/27/22 History of present illness; patient is 61-year-old gentleman with past medical h istory significant for COPD, lung cancer presented to the ER because of shortness of breath. Patient stated that he woke up this morning with feeling of shortness of breath and palpitations. Denies any chest pain at that time. He initially called EMS when EMS arrived patient was saturating well on room air but he was placed on 2 L of oxygen for comfort. Patient was brought to the ER. Initial telemetry showed patient to be SVT. Repeat EKG showed patient to be in sinus rhythm Initial lab work done in the ER showed WBC 7.6, hemoglobin 10, platelet count 289, sodium 13, potassium 3.9, BUN 34, creatinine 1.11, troponin 0.041, proBNP, 2250, Chest x-ray done showed perihilar infiltrates and right upper lobe infiltrate correlate for pneumonia Patient was admitted to medicine service REVIEW OF SYSTEMS: CONSTITUTIONAL: No fever, no malaise, no fatigue. HEENT: No recent visual problems or hearing problems. Denied any sore throat. CARDIOVASCULAR: As mentioned in HPI PULMONARY: As mentioned in HPI, complaining of productive cough GASTROINTESTINAL: No diarrhea, no nausea, no vomiting, no abdominal pain. NEUROLOGICAL: No headaches, no weakness, no numbness. HEMATOLOGICAL: Denies any bleeding or petechiae. GENITOURINARY: Denies any burning micturition, frequency, or urgency. MUSCULOSKELETAL/RHEUMATOLOGICAL: Denies any joint pain, swelling, or any muscle pain. ENDOCRINE: Denies any polyuria or polydipsia. The rest of the 14-point review of systems is negative. PHYSICAL EXAMINATION: GENERAL: The patient is alert and oriented x3, not in any acute distress. Well developed, well nourished. HEENT: Pupils are round and equally reacting to light. EOMI. No scleral icterus. No conjunctival pallor. Normocephalic, atraumatic. No pharyngeal erythema. No thyromegaly. CARDIOVASCULAR: S1 and S2 present. No murmurs, rubs, or gallops. PULMONARY: Chest is clear to auscultation, no wheezing or crackles. ABDOMEN: Soft, nontender, nondistended, normoactive bowel sounds. No palpable organomegaly. MUSCULOSKELETAL: No joint swelling or deformity. EXTREMITIES: No cyanosis, clubbing, or pedal edema. NEUROLOGICAL: Gross neurological examination did not reveal any focal deficits. SKIN: No rashes. Assessment and plan SVT Acute hypoxic respiratory failure Bacterial pneumonia Acute exacerbation of COPD History of lung cancer Hypertension hyperlipidemia Monitor vital signs Monitor CBC Monitor CMP Continue telemetry monitoring Resume Lopressor Trend troponins Ordered ultrasound lower extremity order CT chest Continue IV Rocephin and azithromycin Continue breathing treatments Consult cardiology Consult pulmonology Labs and medication were reviewed.. Continue same treatment. Continue with symptomatic treatment. Resume home medication. Monitor labs and vitals. DVT and GI prophylaxis. Further recommendations as per clinical course of the patient Past Medical History Past Medical History: Chest Pain / Angina, Myocardial Infarction ([place]), Pneumonia Additional Past Medical History / Comment(s): SVT with chest pain/palpitations- chemically converted. Last Myocardial Infarction Date:: 2017 History of Any Multi-Drug Resistant Organisms: MRSA Date of last positivie culture/infection: 12/23/2013 MDRO Source:: Face Past Surgical History: Heart Catheterization With Stent Additional Past Surgical History / Comment(s): I&D of R inframandibular abscess. 3 cardiac stents. Past Anesthesia/Blood Transfusion Reactions: No Reported Reaction Date of Last Stent Placement:: 2017 Additional Past Alcohol Use History / Comment(s): Pt started smoking when he was 13 1ppd and recently quit within the last month or so. Drinks occasionally and eats marijuana gummies. Past Drug Use History: Marijuana Additional Drug Use History / Comment(s): Pt denies any drug use. [facility] documents marijuana. - Past Family History Father Family Medical History: No Reported History Additional Family Medical History / Comment(s): Father of "natural causes" at the age of 79yrs. Mother Family Medical History: COPD, Coronary Artery Disease (CAD) Additional Family Medical History / Comment(s): Mother is 76yrs old. She has had several MIs, 6 cardiac stents and a 4 vessel CABG. Medications and Allergies Home Medications Medication Instructions Recorded Confirmed Type Aspirin 81 mg PO DAILY #30 chew 03/05/17 08/27/22 Rx Atorvastatin [Lipitor] 80 mg PO DAILY 03/04/21 08/27/22 History Metoprolol Tartrate [Lopressor] 25 mg PO BID 03/04/21 08/27/22 History HYDROcodone/APAP 10-325MG [[place] 1 tab PO QID 05/09/22 08/27/22 History 10-325] Ondansetron [Zofran] 4 mg PO Q6H PRN 05/09/22 08/27/22 History Spiriva Respimat 1.25mcg/Actuation 2 puff INHALATION RT-HS 07/09/22 08/27/22 History Mist Furosemide [Lasix] 40 mg PO BID@0900,1600 #60 tab 07/14/22 08/27/22 Rx Hydrocortisone [Cortef] 20 mg PO DAILY@1600 08/27/22 08/27/22 History Hydrocortisone [Cortef] 30 mg PO DAILY@0900 08/27/22 08/27/22 History lisinopriL [Zestril] 5 mg PO DAILY 08/27/22 08/27/22 History Allergies Allergy/AdvReac Type Severity Reaction Status Date / Time Penicillins Allergy Dyspnea & Verified 08/27/22 09:13 Hives all over Physical Exam Vitals: Vital Signs Temp Pulse Resp BP Pulse Ox 08/27/22 08:38 74 18 165/103 94 L 08/27/22 08:35 222 H 40 H 08/27/22 07:48 84 08/27/22 07:37 82 08/27/22 06:46 16 08/27/22 06:40 98.2 F 72 16 186/102 99 Intake and Output 08/26/22 08/27/22 08/27/22 22:59 06:59 14:59 Other: Weight 81.647 kg Results CBC & Chem 7: 08/27/22 06:41 08/27/22 06:41 Labs: Abnormal Lab Results - Last 24 Hours (Table) 08/27/22 08/27/22 08/27/22 Range/Units 06:41 06:41 06:41 RBC 3.19 L (4.30-5.90) m/uL Hgb 10.0 L D (13.0-17.5) gm/dL Hct 32.2 L (39.0-53.0) % MCV 101.0 H (80.0-100.0) fL RDW 18.3 H (11.5-15.5) % BUN 34 H (9-20) mg/dL Calcium 8.1 L (8.4-10.2) mg/dL Troponin I 0.041 H* (0.000-0.034) ng/mL Albumin 2.8 L (3.5-5.0) g/dL
--- NOTE | 2022-08-27 13:17 | US ---
EXAMINATION TYPE: US venous doppler duplex LE BI DATE OF EXAM: 08/27/2022 12:44 PM COMPARISON: NONE CLINICAL INDICATION: Male, 61 years old with history of swelling; SIDE PERFORMED: Bilateral TECHNIQUE: The lower extremity deep venous system is examined utilizing real time linear array sonog yenny with graded compression, doppler sonography and color-flow sonography. VESSELS IMAGED: Common Femoral Vein Deep Femoral Vein Greater Saphenous Vein * Femoral Vein Popliteal Vein Small Saphenous Vein * Proximal Calf Veins (* superficial vessels) Right Leg: Negative for DVT Left Leg: Negative for DVT IMPRESSION: 1. Bilateral lower extremity ultrasound negative for deep venous thrombosis.
[2022-08-27] MEDS ORDERED: METOPROLOL TARTRATE 50 MG TAB PO STA (13:43)
--- NOTE | 2022-08-27 13:44 | P.CRDCN ---
History of Present Illness History of present illness: HISTORY OF PRESENT ILLNESS: This is a 61-year-old male with a past medical history significant for coronary artery disease with previous stenting, cardiomyopathy with recovered EF, hypertension, hyperlipidemia, former nicotine dependence, and lung cancer. Patient follows in the office with Dr. Tabares but has not been seen in the office since October 2021. We have been asked to see the patient in consultation for limited troponin and SVT. Patient examined at the bedside in the emergency room. Patient presented to the hospital with a chief complaint of shortness of breath. Patient states he has been feeling short of breath that got significantly worse yesterday. He also reports increased lower extremity edema. He states he has been compliant with his Lasix. Patient also reports coughing up blood this morning. He denies any chest pain or pressure. He presented to the hospital for further evaluation. The patient does have a history of lung cancer. He states he is currently on a 3 month break from chemotherapy. He has been evaluated by pulmonary medicine and CTA of the chest has been ordered. While in the emergency room, the patient was thought to have a run of SVT. Patient converted to sinus mechanism on his own. Upon review of telemetry tracings, patient appears to be having nonsustained ventricular tachycardia rather than SVT. The patient states at that time he did not really have palpitations but rather felt like his breath was taken away. He does report having a few episodes of this over the past week. * EKG reveals sinus mechanism with nonspecific ST-T wave changes. * Chest xray perihilar infiltrates and right upper lobe infiltrate. Correlate for pneumonia. Atypical pulmonary edema she also be considered. * Laboratory data: W BC 7.6. Hemoglobin 10.0. Platelet count 289. Sodium 138. Potassium 3.9. BUN 34. Creatinine 1.1. Troponin 0.041. 0.041. 0.060. proBNP 2250. * Current home cardiac medications include lisinopril 5 mg daily, metoprolol tartrate 25 mg twice a day, Lasix 40 mg twice a day, Lipitor 80 mg daily, and aspirin 81 mg daily * Most recent echocardiogram obtained in June 2022 revealed ejection fraction 55- 60%, moderate pulmonary hypertension, mild tricuspid regurgitation, and mild mitral regurgitation * Cardiac catheterization history: February 2017 with stenting to the proximal RCA, distal RCA, and proximal OM1 REVIEW OF SYSTEMS: At the time of my exam: CONSTITUTIONAL: Denies fever or chills. HEENT: Denies blurred vision, vision changes, or eye pain. Denies hemoptysis CARDIOVASCULAR: Denies chest pain. Denies orthopnea. Denies PND. Denies palpitations RESPIRATORY: Denies shortness of breath. GASTROINTESTINAL: Denies abdominal pain. Denies nausea or vomiting. HEMATOLOGIC: Denies bleeding disorders. GENITOURINARY: Denies any blood in urine. SKIN: Denies pruitis. Denies rash. PHYSICAL EXAM: VITAL SIGNS: Reviewed. GENERAL: Well-developed in no acute distress. HEENT: Head is normocephalic. Pupils are equal, round. Sclerae anicteric. Mucous membranes of the mouth are moist. Neck supple. No JVD or thyromegaly LUNGS: Respirations even and unlabored. Lungs diminished to auscultation bilaterally. HEART: Regular rate and rhythm. S1 and S2 heard. ABDOMEN: Soft. Nondistended. Nontender. EXTREMITIES: Normal range of motion. No clubbing or cyanosis. Peripheral pulses intact. 2+ bilateral lower extremity edema NEUROLOGIC: Awake and alert. Oriented x 3. ASSESSMENT: Shortness of breath Hemoptysis Lung cancer, currently on 3 month break from chemotherapy per patient SVT, ruled out, telemetry tracings reveal nonsustained ventricular tachycardia Coronary artery disease with previous stenting Abnormal troponins, flat, not suggestive of ACS History of ischemic cardiomyopathy with recovered EF Hypertension Hyperlipidemia Former nicotine dependence PLAN: Telemetry tracings reviewed. Telemetry reveals nonsustained ventricular tachycardia rather than SVT. Increase metoprolol to 50 mg twice a day Obtain limited 2-D echo to assess LV function Continue telemetry monitoring Pulmonary following. CTA ordered. Give one dose of IV lasix now for lower extremity edema Further recommendations pending patient course Nurse practitioner note has been reviewed by physician. Signing provider agrees with the documented findings, assessment, and plan of care. Past Medical History Past Medical History: Chest Pain / Angina, Myocardial Infarction ([place]), Pneumonia Additional Past Medical History / Comment(s): SVT with chest pain/palpitations- chemically converted. Last Myocardial Infarction Date:: 2017 History of Any Multi-Drug Resistant Organisms: MRSA Date of last positivie culture/infection: 12/23/2013 MDRO Source:: Face Past Surgical History: Heart Catheterization With Stent Additional Past Surgical History / Comment(s): I&D of R inframandibular abscess. 3 cardiac stents. Past Anesthesia/Blood Transfusion Reactions: No Reported Reaction Date of Last Stent Placement:: 2017 Additional Past Alcohol Use History / Comment(s): Pt started smoking when he was 13 1ppd and recently quit within the last month or so. Drinks occasionally and eats marijuana gummies. Past Drug Use History: Marijuana Additional Drug Use History / Comment(s): Pt denies any drug use. PMH documents marijuana. - Past Family History Father Family Medical History: No Reported History Additional Family Medical History / Comment(s): Father of "natural causes" at the age of 79yrs. Mother Family Medical History: COPD, Coronary Artery Disease (CAD) Additional Family Medical History / Comment(s): Mother is 76yrs old. She has had several MIs, 6 cardiac stents and a 4 vessel CABG. Medications and Allergies Home Medications Medication Instructions Recorded Confirmed Type Aspirin 81 mg PO DAILY #30 chew 03/05/17 08/27/22 Rx Atorvastatin [Lipitor] 80 mg PO DAILY 03/04/21 08/27/22 History Metoprolol Tartrate [Lopressor] 25 mg PO BID 03/04/21 08/27/22 History HYDROcodone/APAP 10-325MG [[place] 1 tab PO QID 05/09/22 08/27/22 History 10-325] Ondansetron [Zofran] 4 mg PO Q6H PRN 05/09/22 08/27/22 History Spiriva Respimat 1.25mcg/Actuation 2 puff INHALATION RT-HS 07/09/22 08/27/22 History Mist Furosemide [Lasix] 40 mg PO BID@0900,1600 #60 tab 07/14/22 08/27/22 Rx Hydrocortisone [Cortef] 20 mg PO DAILY@1600 08/27/22 08/27/22 History Hydrocortisone [Cortef] 30 mg PO DAILY@0900 08/27/22 08/27/22 History lisinopriL [Zestril] 5 mg PO DAILY 08/27/22 08/27/22 History Allergies Allergy/AdvReac Type Severity Reaction Status Date / Time Penicillins Allergy Dyspnea & Verified 08/27/22 09:13 Hives all over Physical Exam Vitals: Vital Signs Temp Pulse Resp BP Pulse Ox 08/27/22 13:28 98.8 F 92 24 150/83 93 L 08/27/22 11:30 92 20 127/78 97 08/27/22 08:38 74 18 165/103 94 L 08/27/22 08:35 222 H 40 H 08/27/22 07:48 84 08/27/22 07:37 82 08/27/22 06:46 16 08/27/22 06:40 98.2 F 72 16 186/102 99 Intake and Output 08/26/22 08/27/22 08/27/22 22:59 06:59 14:59 Other: Weight 81.647 kg Results 08/27/22 06:41 08/27/22 06:41 Cardiac Enzymes 08/27/22 08/27/22 08/27/22 Range/Units 06:41 06:41 09:06 AST 29 (17-59) U/L Troponin I 0.041 H* 0.041 H* (0.000-0.034) ng/mL 08/27/22 Range/Units 11:51 AST (17-59) U/L Troponin I 0.060 H* (0.000-0.034) ng/mL Coagulation 08/27/22 Range/Units 06:41 PT 10.3 (9.0-12.0) sec APTT 23.1 (22.0-30.0) sec CBC 08/27/22 Range/Units 06:41 WBC 7.6 (3.8-10.6) k/uL RBC 3.19 L (4.30-5.90) m/uL Hgb 10.0 L D (13.0-17.5) gm/dL Hct 32.2 L (39.0-53.0) % Plt Count 289 D (150-450) k/uL Comprehensive Metabolic Panel 08/27/22 Range/Units 06:41 Sodium 138 (137-145) mmol/L Potassium 3.9 (3.5-5.1) mmol/L Chloride 107 (98-107) mmol/L Carbon Dioxide 26 (22-30) mmol/L BUN 34 H (9-20) mg/dL Creatinine 1.11 (0.66-1.25) mg/dL Glucose 90 (74-99) mg/dL Calcium 8.1 L (8.4-10.2) mg/dL AST 29 (17-59) U/L ALT 16 (4-49) U/L Alkaline Phosphatase 56 (38-126) U/L Total Protein 6.3 (6.3-8.2) g/dL Albumin 2.8 L (3.5-5.0) g/dL Current Medications Generic Name Dose Route Start Last Admin Trade Name Freq PRN Reason Stop Dose Admin Acetaminophen 650 mg 08/27/22 08:55 Acetaminophen Tab 325 Mg Tab PO Q6HR PRN Mild Pain or Fever > 100.5 Hydrocodone Bitart/Acetaminophen 1 each 08/27/22 13:00 Hydrocodone/Apap 10-325mg 1 Each Tab PO QID [facility] Aspirin 81 mg 08/28/22 09:00 Aspirin 81 Mg PO DAILY [facility] Atorvastatin Calcium 80 mg 08/28/22 09:00 Atorvastatin 80 Mg Tab PO DAILY [facility] Azithromycin 500 mg 08/28/22 09:00 Azithromycin 500 Mg Tab PO 08/29/22 09:01 DAILY [facility] Protocol Furosemide 40 mg 08/27/22 16:00 Furosemide 40 Mg Tab PO BID@0900,1600 [facility] Hydrocortisone 20 mg 08/27/22 16:00 Hydrocortisone 10 Mg Tab PO DAILY@1600 [facility] Hydrocortisone 30 mg 08/28/22 09:00 Hydrocortisone 10 Mg Tab PO DAILY@0900 [facility] Ceftriaxone Sodium 2 gm/ 50 mls @ 100 mls/hr 08/28/22 09:00 Sodium Chloride IVPB 08/31/22 09:29 Q24HR [facility] Protocol Ipratropium [place] 0.5 mg 08/27/22 20:00 Ipratropium 0.5 Mg/2.5 Ml Nebu INHALATION RT-QID [facility] Lisinopril 5 mg 08/28/22 09:00 Lisinopril 5 Mg Tab PO DAILY [facility] Metoprolol Tartrate 50 mg 08/27/22 21:00 Metoprolol Tartrate 50 Mg Tab PO BID [facility] Miscellaneous Information 1 each 08/27/22 07:29 Pneumonia Protocol Utilized 1 Each Misc PO ONCE PRN Per Protocol Naloxone HCl 0.2 mg 08/27/22 08:55 Naloxone 0.4 Mg/Ml 1 Ml Vial IV Q2M PRN Opioid Reversal Ondansetron HCl 4 mg 08/27/22 08:55 Ondansetron 4 Mg/2 Ml Vial IVP Q8HR PRN Nausea And Vomiting Ondansetron HCl 4 mg 08/27/22 10:14 Ondansetron 4 Mg Tab PO Q6H PRN Nausea Intake and Output 08/26/22 08/27/22 08/27/22 22:59 06:59 14:59 Other: Weight 81.647 kg 08/27/22 06:41 08/27/22 06:41
--- NOTE | 2022-08-27 13:48 | CT ---
EXAMINATION TYPE: CT angio chest DATE OF EXAM: 08/27/2022 1:27 PM COMPARISON: 07/09/2022 HISTORY: Shortness of breath, hemoptysis and history of lung cancer. CT DLP: 363.4 mGycm Automated exposure control for dose reduction was used. CONTRAST: CTA scan of the thorax is performed with IV Contrast, patient injected with 100ml mL of Isovue 370, p ulmonary embolism protocol. . FINDINGS: LUNGS: There is a larger band of attenuation noted in the right upper lobe relative to the prior exam and there now appears to be a spiculated area of consolidation involving the right lung apex extendi ng to the right hilum. Bronchial wall thickening and pathologic adenopathy in the mediastinum and hil um. There is interval development of bilateral airspace disease relative to the previous exam. This is ivy perimposed on a background of centrilobular emphysema. There is small bilateral pleural effusions gre ater on the right. There is basilar bronchiectasis. Portions of the left hilar mass with spiculation on the prior exam are now obscured by adjacent conso lidation and pleural effusion. MEDIASTINUM: There is satisfactory enhancement of the pulmonary artery and its branches, there is no CT evidence for pulmonary embolism. The heart is enlarged. Dense coronary artery calcification noted . Trace of pericardial fluid. OTHER: Hypertrophic and degenerative changes of the spine. Chronic deformity of the sternum suggest remote fracture. No destructive osseous lesions.. Small hiatal hernia. IMPRESSION: 1. No diagnostic evidence of pulmonary embolism. 2. There is interval enlargement of the spiculated mass involving the right upper lobe extending to t he hilum. Measuring 5.8 x 5 cm. Previously measured 3.4 x 2.4 cm. There is persistent peribronchial w all thickening and narrowing of the right mainstem bronchus. Mucosal lesion in the bronchus not exclu ded. There is interval development of bilateral patchy airspace disease and consolidation suspicious for p neumonia. Pulmonary edema also in the differential diagnosis. Correlate clinically. 3. Stable pathologic mediastinal and hilar adenopathy.
[2022-08-27] MEDS ORDERED: FUROSEMIDE 10 MG/ML 4 ML VIAL IV STA (13:49)
[2022-08-27] MEDS: HYDROcodone/APAP 10-325MG 1 EACH TAB PO SCH ×3 (14:19→23:11)
--- NOTE | 2022-08-27 14:36 | P.CNPUL ---
History of Present Illness Consult date: 08/27/22 Reason for consult: dyspnea History of present illness: This 61-year-old male patient with history of metastatic squamous cell carcinoma along with known history of coronary artery disease, history of hypertension, hyperlipidemia and previous history of congestion heart failure with seems to be quite optimized for now. The patient is currently receiving systemic chemotherapy. Note that at the time of his diagnosis, the patient was started on immunotherapy in his condition progressed and subsequently the patient was given a combination of carboplatin and Gemzar and the patient has completed his systemic chemotherapy and currently is being given a holiday off chemotherapeutic agents. Also recent CAT scan of the chest abdomen and pelvis that was done on 07/09/2022 showed radiographic response and the right suprahilar sedated mass has shrunken down to 3.6 cm from the previous measurement of 6.7 cm. The patient also had a slight improvement in the left infrahilar spiculated mass was measuring 3.4 compared to 4.2 cm in size. There was abnormal right hilar and subcarinal lymphadenopathy was again noted in the subcarinal lymph node was measuring 2.1 cm in size. Overall, the patient had some partial positive treatment response. The patient came into the emergency department because of acute shortness of breath and palpitations. He also was having some limited hemoptysis/bloody mucoid sputum that he was coughing at home. He came into the emergency and the patient was found to have SVT with a rapid ventricular response and a heart rate was above 200. He subsequently converted spontaneously to sinus rhythm. Currently is in normal sinus rhythm. Afebrile. Denies having any chest pain. Note that his cardiac catheterization from 2079 showed a patent stent to the RCA and proximal OM1. His echocardiogram from June 2022 showed an ejection fraction of 55-60% with moderate pulmonary hypertension. The patient's repeat chest x-ray the emergency department showed a right upper lobe opacity and a left infrahilar opacity in addition to a new area of consolidation in the left midlung area. Based on that, I recommended a CAT scan of the chest and this was done using the CT angiogram protocol. Unfortunately, there was interval enlargement of the sedated mass in the right upper lobe and this was currently measuring 5.8 x 5 cm in size and there was persistent peribronchial wall thickening and narrowing of the right mainstem bronchus. There is also interval development of patchy bilateral airspace disease/consolidation suspicious for pneumonia. There was stable pathologic mediastinal and hilar lymphadenopathy. The left infrahilar mass is also increased in size and there is also an area of left lower lobe atelectasis and there is development of a small right-sided pleural effusion. No evidence of any pulmonary embolism. He did complain of increased lower extremity edema and based on that the patient was given a Doppler of the lower extremity that showed no evidence of any DVTs. The white cell count of 7.6 with hemoglobin of 10, BUN is 34 with a creatinine of 1.1 and a sodium level is 138. Normal LFTs. Troponins are 0.04, 0.04 and 0 point 06 respectively. ProBNP level was 2250. Influenza, Covid 19 and RSV were all negative. Normal cognition profile. Review of Systems Constitutional: Reports weakness, Reports weight loss Eyes: denies as per HPI, denies blurred vision, denies bulging eye, denies decreased vision, denies diplopia, denies discharge, denies dry eye, denies irritation, denies itching, denies pain, denies photophobia, denies loss of peripheral vision, denies loss of vision, denies tunnel vision/blind spots Ears: deny: decreased hearing, ear discharge, earache, tinnitus Ears, nose, mouth and throat: Reports as per HPI Cardiovascular: Reports decreased exercise tolerance, Reports dyspnea on exertion, Reports palpitations Respiratory: Reports dyspnea, Reports hemoptysis Gastrointestinal: Reports as per HPI Genitourinary: Reports as per HPI Musculoskeletal: Reports as per HPI Musculoskeletal: bilateral: ankle swelling, absent: ankle pain, ankle stiffness Integumentary: Reports as per HPI Neurological: Reports as per HPI Psychiatric: Reports as per HPI Endocrine: Reports as per HPI, Reports fatigue Hematologic/Lymphatic: Reports as per HPI Allergic/Immunologic: Reports as per HPI Past Medical History Past Medical History: Coronary Artery Disease (CAD), Cancer (stage 4 Squamous cell lung cancer), Chest Pain / Angina, Hyperlipidemia, Hypertension, Myocardial Infarction ([place]) Additional Past Medical History / Comment(s): SVT with chest pain/palpitations- chemically converted. Last Myocardial Infarction Date:: 2017 History of Any Multi-Drug Resistant Organisms: MRSA Date of last positivie culture/infection: 12/23/2013 MDRO Source:: Face Past Surgical History: Heart Catheterization With Stent Additional Past Surgical History / Comment(s): I&D of R inframandibular abscess. 3 cardiac stents. Past Anesthesia/Blood Transfusion Reactions: No Reported Reaction Date of Last Stent Placement:: 2017 Additional Past Alcohol Use History / Comment(s): Pt started smoking when he was 13 1ppd and recently quit within the last month or so. Drinks occasionally and e ats marijuana gummies. Past Drug Use History: Marijuana Additional Drug Use History / Comment(s): Pt denies any drug use. PMH documents marijuana. - Past Family History Father Family Medical History: No Reported History Additional Family Medical History / Comment(s): Father of "natural causes" at the age of 79yrs. Mother Family Medical History: COPD, Coronary Artery Disease (CAD) Additional Family Medical History / Comment(s): Mother is 76yrs old. She has had several MIs, 6 cardiac stents and a 4 vessel CABG. Medications and Allergies Home Medications Medication Instructions Recorded Confirmed Type Aspirin 81 mg PO DAILY #30 chew 03/05/17 08/27/22 Rx Atorvastatin [Lipitor] 80 mg PO DAILY 03/04/21 08/27/22 History Metoprolol Tartrate [Lopressor] 25 mg PO BID 03/04/21 08/27/22 History HYDROcodone/APAP 10-325MG [[place] 1 tab PO QID 05/09/22 08/27/22 History 10-325] Ondansetron [Zofran] 4 mg PO Q6H PRN 05/09/22 08/27/22 History Spiriva Respimat 1.25mcg/Actuation 2 puff INHALATION RT-HS 07/09/22 08/27/22 History Mist Furosemide [Lasix] 40 mg PO BID@0900,1600 #60 tab 07/14/22 08/27/22 Rx Hydrocortisone [Cortef] 20 mg PO DAILY@1600 08/27/22 08/27/22 History Hydrocortisone [Cortef] 30 mg PO DAILY@0900 08/27/22 08/27/22 History lisinopriL [Zestril] 5 mg PO DAILY 08/27/22 08/27/22 History Allergies Allergy/AdvReac Type Severity Reaction Status Date / Time Penicillins Allergy Dyspnea & Verified 08/27/22 09:13 Hives all over Physical Exam Vitals: Vital Signs Temp Pulse Resp BP Pulse Ox 07/14/23 11:30 92 20 127/78 97 08/27/22 08:38 74 18 165/103 94 L 08/27/22 08:35 222 H 40 H 08/27/22 07:48 84 08/27/22 07:37 82 08/27/22 06:46 16 08/27/22 06:40 98.2 F 72 16 186/102 99 Intake and Output 08/26/22 08/27/22 08/27/22 22:59 06:59 14:59 Other: Weight 81.647 kg GENERAL: Well-developed in no acute distress. , Not having any significant respiratory distress and the patient is currently on 2 L of oxygen by nasal cannula Head exam was generally normal. There was no scleral icterus or corneal arcus. Mucous membranes were moist. HEENT: Head is normocephalic. Pupils are equal, round. Sclerae anicteric. Mucous membranes of the mouth are moist. Neck supple. No JVD or thyromegaly LUNGS: Respirations even and unlabored. Lungs diminished to auscultation bilaterally. HEART: Regular rate and rhythm. S1 and S2 heard. ABDOMEN: Abdominal exam revealed normal bowel sounds. The abdomen was soft, non- tender, and without masses, organomegaly, or appreciable enlargement of the abdominal aorta. EXTREMITIES: Normal range of motion. No clubbing or cyanosis. Peripheral pulses intact. 2+ bilateral lower extremity edema NNeurologically, the patient is awake and alert and the patient does not have any focal neurological deficit. Cranial nerves are essentially intact. Examination of the skin revealed no evidence of significant rashes, suspicious appearing nevi or other concerning lesions. Results - Laboratory Findings CBC and BMP: 08/27/22 06:41 08/27/22 06:41 ABG WBC 7.6 k/uL (3.8-10.6) 08/27/22 06:41 RBC 3.19 m/uL (4.30-5.90) L 08/27/22 06:41 Hgb 10.0 gm/dL (13.0-17.5) L D 08/27/22 06:41 Hct 32.2 % (39.0-53.0) L 08/27/22 06:41 MCV 101.0 fL (80.0-100.0) H 08/27/22 06:41 MCH 31.3 pg (25.0-35.0) 08/27/22 06:41 MCHC 31.0 g/dL (31.0-37.0) 08/27/22 06:41 RDW 18.3 % (11.5-15.5) H 08/27/22 06:41 Plt Count 289 k/uL (150-450) D 08/27/22 06:41 MPV 8.3 08/27/22 06:41 Neutrophils % 59 % 08/27/22 06:41 Lymphocytes % 28 % 08/27/22 06:41 Monocytes % 11 % 08/27/22 06:41 Eosinophils % 0 % 08/27/22 06:41 Basophils % 0 % 08/27/22 06:41 Neutrophils # 4.5 k/uL (1.3-7.7) 08/27/22 06:41 Lymphocytes # 2.1 k/uL (1.0-4.8) 08/27/22 06:41 Monocytes # 0.8 k/uL (0-1.0) 08/27/22 06:41 Eosinophils # 0.0 k/uL (0-0.7) 08/27/22 06:41 Basophils # 0.0 k/uL (0-0.2) 08/27/22 06:41 Hypochromasia Marked 08/27/22 06:41 Anisocytosis Slight 08/27/22 06:41 Macrocytosis Moderate 08/27/22 06:41 PT 10.3 sec (9.0-12.0) 08/27/22 06:41 INR 1.0 (<1.2) 08/27/22 06:41 APTT 23.1 sec (22.0-30.0) 08/27/22 06:41 Sodium 138 mmol/L (137-145) 08/27/22 06:41 Potassium 3.9 mmol/L (3.5-5.1) 08/27/22 06:41 Chloride 107 mmol/L (98-107) 08/27/22 06:41 Carbon Dioxide 26 mmol/L (22-30) 08/27/22 06:41 Anion Gap 5 mmol/L 08/27/22 06:41 BUN 34 mg/dL (9-20) H 08/27/22 06:41 Creatinine 1.11 mg/dL (0.66-1.25) 08/27/22 06:41 Est GFR (CKD-EPI)AfAm 83 (>60 ml/min/1.73 sqM) 08/27/22 06:41 Est GFR (CKD-EPI)NonAf 72 (>60 ml/min/1.73 sqM) 08/27/22 06:41 Glucose 90 mg/dL (74-99) 08/27/22 06:41 Plasma Lactic Acid [place] 1.2 mmol/L (0.7-2.0) 08/27/22 06:41 Calcium 8.1 mg/dL (8.4-10.2) L 08/27/22 06:41 Total Bilirubin 0.6 mg/dL (0.2-1.3) 08/27/22 06:41 AST 29 U/L (17-59) 08/27/22 06:41 ALT 16 U/L (4-49) 08/27/22 06:41 Alkaline Phosphatase 56 U/L (38-126) 08/27/22 06:41 Troponin I 0.041 ng/mL (0.000-0.034) H* 08/27/22 09:06 C-Reactive Protein 3.2 mg/dL (<1.0) H 08/27/22 07:35 NT-Pro-B Natriuret Pep 2250 pg/mL 08/27/22 06:41 Total Protein 6.3 g/dL (6.3-8.2) 08/27/22 06:41 Albumin 2.8 g/dL (3.5-5.0) L 08/27/22 06:41 Influenza Type A (PCR) Not Detected (Not Detectd) 08/27/22 06:41 Influenza Type B (PCR) Not Detected (Not Detectd) 08/27/22 06:41 RSV (PCR) Not Detected (Not Detectd) 08/27/22 06:41 SARS-CoV-2 (PCR) Not Detected (Not Detectd) 08/27/22 06:41 PT/INR, D-dimer PT 10.3 sec (9.0-12.0) 08/27/22 06:41 INR 1.0 (<1.2) 08/27/22 06:41 Abnormal lab findings: Abnormal Labs 07/08/27/22 08/27/22 06:41 06:41 06:41 RBC 3.19 L Hgb 10.0 L D Hct 32.2 L MCV 101.0 H RDW 18.3 H BUN 34 H Calcium 8.1 L Troponin I 0.041 H* C-Reactive Protein Albumin 2.8 L 08/27/22 08/27/22 07:35 09:06 RBC Hgb Hct MCV RDW BUN Calcium Troponin I 0.041 H* C-Reactive Protein 3.2 H Albumin - Diagnostic Findings Chest x-ray: image reviewed CT scan - chest: image reviewed Assessment and Plan Plan: Metastatic squamous cell carcinoma of the lung, completed systemic chemotherapy utilizing a combination of carboplatinum and gemcitabine. Follow-up CAT scan of the chest that was done today and a pulmonary CT angiogram showed interval progression of his malignancy with enlargement of the right upper lobe mass, left infrahilar mass and the patient is also developed patchy bilateral pulm onary infiltrates, possibility of tumor progression versus pneumonia. Acute shortness of breath, related to SVT, recovered and the patient is back to normal sinus rhythm SVT, preserved LV function based on previous echocardiograms along with known history of coronary artery disease and some limited troponin leak, failure of any chest pain, converted into normal sinus rhythm Hemoptysis related to his underlying non-small cell lung cancer Coronary artery disease with previous stenting of the RCA and proximal OM1 History of ischemic cardiacmyopathy, recovered left ventricular ejection fracti on Hypertension Hyperlipidemia Former smoker Lower extremity edema, no evidence of any DVT Plan Check pro calcitonin level Continue Rocephin and Zithromax Put the patient on Lasix 40 mg by mouth twice a day Resume all medications Watch for any signs of hemoptysis We'll continue to follow Prognosis poor with obvious progression in his underlying non-small cell lung cancer May need an oncology consultation also.
[2022-08-27] MEDS: HYDROCORTISONE 10 MG TAB PO SCH (16:07)
[2022-08-27] MEDS: FUROSEMIDE 40 MG TAB PO SCH (16:07)
--- NOTE | 2022-08-27 17:44 | CA ---
Transthoracic Echo Report Name: Fracisco Rene Age: 61 Gender: M : 1960 Exam Date: 08/27/2022 16:08 Exam Location: [facility] Ht (in): 73 Wt (lb): 180 Ordering Physician: Lashanda Farmer Attending/Referring Phys: [id number], Marleny Jowl Trimmer Katie Dangelo RDCS Procedure CPT: Indications: lv function, V-tach Cardiac Hx: Technical Quality: Fair Contrast 1: Total Dose (mL): Contrast 2: Total Dose (mL): MEASUREMENTS (Male / Female) Normal Values 2D ECHO LV Diastolic Diameter PLAX 4.4 cm 4.2 - 5.9 / 3.9 - 5.3 cm LV Systolic Diameter PLAX 3.6 cm IVS Diastolic Thickness 1.1 cm 0.6 - 1.0 / 0.6 - 0.9 cm LVPW Diastolic Thickness 1.3 cm 0.6 - 1.0 / 0.6 - 0.9 cm LV Relative Wall Thickness 0.5 FINDINGS Left Ventricle Limited Study, moderate decreased systolic function. Moderate Apical hypokinesis. Left ventricular ejection fraction is estimated at 35-40 %. Right Ventricle Right Atrium Left Atrium Mitral Valve Aortic Valve Tricuspid Valve Pulmonic Valve Pericardium No pericardial effusion. Aorta CONCLUSIONS Moderate LV systolic dysfunction with an ejection fraction of 35% Apical hypokinesis Previewed by: Bob Bruner MD Dr. Suresh Tumma MD (Electronically Signed) Final Date: 27 August 2022 17:44
[2022-08-27] MEDS: METOPROLOL TARTRATE 50 MG TAB PO SCH (20:19)
[2022-08-27] MEDS: IPRATROPIUM 0.5 MG/2.5 ML NEBU INHALATION SCH (20:31)
--- NOTE | 2022-08-28 07:16 | XR ---
EXAMINATION TYPE: XR chest 2V DATE OF EXAM: 08/28/2022 COMPARISON: 08/27/2022 HISTORY: Shortness of breath TECHNIQUE: Frontal and lateral views of the chest are obtained. FINDINGS: There has been no change in the perihilar partially consolidative infiltrates predominantly interstit ial infiltrate in the right lung apex. There is diffuse interstitial prominence likely representing p ulmonary vascular congestion or interstitial edema. The heart size is normal. There is no pneumothorax. There are probable tiny bilateral pleural effusio ns. The osseous structures are intact. IMPRESSION: 1. Acute cardiopulmonary disease consistent with either bilateral pneumonia versus interstitial and a irspace pulmonary edema. Clinical correlation recommended. 2. No interval change since the prior study. IMPRESSION: No acute cardiopulmonary process.
[2022-08-28] MEDS: IPRATROPIUM 0.5 MG/2.5 ML NEBU INHALATION SCH ×4 (08:16→21:01)
[2022-08-28] MEDS ORDERED: lisinopriL 5 MG TAB PO SCH (09:00)
[2022-08-28] MEDS: AZITHROMYCIN 500 MG TAB PO SCH (09:22)
[2022-08-28] MEDS: ASPIRIN 81 MG PO SCH (09:22)
[2022-08-28] MEDS: ATORVASTATIN 80 MG TAB PO SCH (09:22)
[2022-08-28] MEDS: HYDROcodone/APAP 10-325MG 1 EACH TAB PO SCH ×4 (09:22→23:33)
[2022-08-28] MEDS: FUROSEMIDE 40 MG TAB PO SCH ×2 (09:22→15:36)
[2022-08-28] MEDS: METOPROLOL TARTRATE 50 MG TAB PO SCH ×2 (09:22→19:39)
[2022-08-28] MEDS: HYDROCORTISONE 10 MG TAB PO SCH ×2 (09:32→17:52)
--- NOTE | 2022-08-28 12:10 | P.PN ---
Subjective Progress Note Date: 08/28/22 This 61-year-old male patient with history of metastatic squamous cell carcinoma along with known history of coronary artery disease, history of hypertension, hyperlipidemia and previous history of congestion heart failure with seems to be quite optimized for now. The patient is currently receiving systemic chemotherapy. Note that at the time of his diagnosis, the patient was started on immunotherapy in his condition progressed and subsequently the patient was given a combination of carboplatin and Gemzar and the patient has completed his systemic chemotherapy and currently is being given a holiday off chemotherapeutic agents. Also recent CAT scan of the chest abdomen and pelvis that was done on 07/09/2022 showed radiographic response and the right suprahilar sedated mass has shrunken down to 3.6 cm from the previous measurement of 6.7 cm. The patient also had a slight improvement in the left infrahilar spiculated mass was measuring 3.4 compared to 4.2 cm in size. There was abnormal right hilar and subcarinal lymphadenopathy was again noted in the subcarinal lymph node was measuring 2.1 cm in size. Overall, the patient had some partial positive treatment response. The patient came into the emergency department because of acute shortness of breath and palpitations. He also was having some limited hemoptysis/bloody mucoid sputum that he was coughing at home. He came into the emergency and the patient was found to have SVT with a rapid ventricular response and a heart rate was above 200. He subsequently converted spontaneously to sinus rhythm. Currently is in normal sinus rhythm. Afebrile. Denies having any chest pain. Note that his cardiac catheterization from 2079 showed a patent stent to the RCA and proximal OM1. His echocardiogram from June 2022 showed an ejection fraction of 55-60% with moderate pulmonary hypertension. The patient's repeat chest x-ray the emergency department showed a right upper lobe opacity and a left infrahilar opacity in addition to a new area of consolidation in the left midlung area. Based on that, I recommended a CAT scan of the chest and this was done using the CT angiogram protocol. Unfortunately, there was interval enlargement of the sedated mass in the right upper lobe and this was currently measuring 5.8 x 5 cm in size and there was persistent peribronchial wall thickening and narrowing of the right mainstem bronchus. There is also interval development of patchy bilateral airspace disease/consolidation suspicious for pneumonia. There was stable pathologic mediastinal and hilar lymphadenopathy. The left infrahilar mass is also increased in size and there is also an area of left lower lobe atelectasis and there is development of a small right-sided pleural effusion. No evidence of any pulmonary embolism. He did complain of increased lower extremity edema and based on that the patient was given a Doppler of the lower extremity that showed no evidence of any DVTs. The white cell count of 7.6 with hemoglobin of 10, BUN is 34 with a creatinine of 1.1 and a sodium level is 138. Normal LFTs. Troponins are 0.04, 0.04 and 0 point 06 respectively. ProBNP level was 2250. Influenza, Covid 19 and RSV were all negative. Normal cognition profile. 08/28/2022, the patient is slightly better compared to yesterday, the patient is coughing out copious amounts of thick purulent sputum and the patient is c urrently on accommodation of Rocephin and Zithromax. Cultures were sent and that is also still pending for now. No fever. No chills. CAT scan of the chest was reviewed and I commented on the findings. He is on 3 L of oxygen by nasal cannula. Objective - Vital Signs Vital signs: Vital Signs Temp 97.6 F 08/27/22 14:33 Pulse 90 08/28/22 08:28 Resp 20 08/28/22 03:30 BP 157/83 08/28/22 03:30 Pulse Ox 97 08/28/22 08:17 FiO2 Intake & Output 08/27/22 08/28/22 08/28/22 18:59 06:59 18:59 Intake Total 418 110 Output Total 1300 2200 Balance -882 -2200 110 Weight 81.647 kg Intake: Intake, IV Titration 300 Amount Azithromycin 500 mg In 250 Sodium Chloride 0.9% 250 ml @ 250 mls/hr IVPB ONCE STA Rx#:[id number] cefTRIAXone 2 gm In 50 Sodium Chloride 0.9% 50 ml @ 100 mls/hr IVPB ONCE STA Rx#:[id number] Oral 118 110 Output: Urine 1300 2200 Other: Voiding Method Urinal Urinal # Voids 1 - Exam GENERAL: Well-developed in no acute distress. , Not having any significant respiratory distress and the patient is currently on 2 L of oxygen by nasal cannula Head exam was generally normal. There was no scleral icterus or corneal arcus. Mucous membranes were moist. HEENT: Head is normocephalic. Pupils are equal, round. Sclerae anicteric. Mucous membranes of the mouth are moist. Neck supple. No JVD or thyromegaly LUNGS: Respirations even and unlabored. Lungs diminished to auscultation bilaterally. HEART: Regular rate and rhythm. S1 and S2 heard. ABDOMEN: Abdominal exam revealed normal bowel sounds. The abdomen was soft, non- tender, and without masses, organomegaly, or appreciable enlargement of the abdominal aorta. EXTREMITIES: Normal range of motion. No clubbing or cyanosis. Peripheral pulses intact. 2+ bilateral lower extremity edema NNeurologically, the patient is awake and alert and the patient does not have any focal neurological deficit. Cranial nerves are essentially intact. Examination of the skin revealed no evidence of significant rashes, suspicious appearing nevi or other concerning lesions. - Labs CBC & Chem 7: 08/27/22 06:41 08/27/22 06:41 Labs: Abnormal Lab Results - Last 24 Hours (Table) 08/27/22 08/27/22 08/27/22 Range/Units 07:35 07:35 09:06 Troponin I 0.041 H* (0.000-0.034) ng/mL C-Reactive Protein 3.2 H (<1.0) mg/dL Procalcitonin 0.12 H (0.02-0.09) ng/mL 08/27/22 Range/Units 11:51 Troponin I 0.060 H* (0.000-0.034) ng/mL C-Reactive Protein (<1.0) mg/dL Procalcitonin (0.02-0.09) ng/mL Assessment and Plan Plan: Metastatic squamous cell carcinoma of the lung, completed systemic chemotherapy utilizing a combination of carboplatinum and gemcitabine. Follow-up CAT scan of the chest that was done today and a pulmonary CT angiogram showed interval progression of his malignancy with enlargement of the right upper lobe mass, left infrahilar mass and the patient is also developed patchy bilateral pulmonary infiltrates, possibility of tumor progression versus pneumonia. Acute shortness of breath, related to SVT, recovered and the patient is back to normal sinus rhythm SVT, preserved LV function based on previous echocardiograms along with known history of coronary artery disease and some limited troponin leak, failure of any chest pain, converted into normal sinus rhythm Hemoptysis related to his underlying non-small cell lung cancer Coronary artery disease with previous stenting of the RCA and proximal OM1 History of ischemic cardiacmyopathy, recovered left ventricular ejection fraction Hypertension Hyperlipidemia Former smoker Lower extremity edema, no evidence of any DVT Plan Awaiting sputum Gram stain and culture Check pro calcitonin level is currently at 0.12 Continue Rocephin and Zithromax Continue Lasix 40 mg by mouth twice a day Resume all medications Watch for any signs of hemoptysis We'll continue to follow Prognosis poor with obvious progression in his underlying non-small cell lung c ancer oncology consultation also.
--- NOTE | 2022-08-28 13:29 | P.PN ---
Subjective Progress Note Date: 08/28/22 PROGRESS NOTE The patient is a 61-year-old male with a known history of CAD prior history of cardiomyopathy, hypertension, hyperlipidemia and history of lung cancer who presented with symptoms of progressive dyspnea. On presentation he had an episode of wide-complex tachycardia that could be related to nonsustained VT. He continues to have a cough, productive with hemoptysis. His computed tomography scan of the chest suggest progression of his malignancy. His echocardiogram showed worsening of his LV systolic function. He's feeling better today, continues to be dyspneic and coughing but better overall. He denies any chest discomfort, dizziness or palpitations. There is no further episodes off arrhythmia Medications: Aspirin, Lipitor 80 mg daily, furosemide 40 mg twice a day, lisinopril 5 mg daily, metoprolol tartrate 50 mg twice a day. Hydrocortisone, Zithromax. PHYSICAL EXAMINATION: Blood pressure 157/80 heart rate 80 LUNGS: Scattered rhonchi HEART: Regular rate and rhythm, S1, S2. No S3. Systolic ejection murmur ABDOMEN: Soft, nontender, no organomegaly EXTREMETIES: No edema LAB: Peak troponin 0.06,Procalcitonin 0.12 IMPRESSION: 1. Progressive dyspnea with evidence of pneumonia and progression of lung cancer 2. History of cardiomyopathy with worsening of the LV function and CHF 3. History of CAD 4. History of hypertension 5. Troponin elevation, no evidence to suggest acute coronary syndrome, representing type II event 6. History of hyperlipidemia PLAN: 1. Increase lisinopril 2. Add Aldactone 3. Add Farxiga 4. Follow renal functions 5. Prognosis is guarded in view of the changes of his CAT scan Objective - Vital Signs Vital signs: Vital Signs Temp 97.6 F 08/27/22 14:33 Pulse 90 08/28/22 11:42 Resp 20 08/28/22 03:30 BP 157/83 08/28/22 03:30 Pulse Ox 97 08/28/22 08:17 FiO2 Intake & Output 08/27/22 08/28/22 08/28/22 18:59 06:59 18:59 Intake Total 418 510 Output Total 1300 2200 900 Balance -882 -2200 -390 Weight 81.647 kg Intake: Intake, IV Titration 300 50 Amount Azithromycin 500 mg In 250 Sodium Chloride 0.9% 250 ml @ 250 mls/hr IVPB ONCE STA Rx#:[id number] cefTRIAXone 2 gm In 50 Sodium Chloride 0.9% 50 ml @ 100 mls/hr IVPB ONCE STA Rx#:[id number] cefTRIAXone 2 gm In 50 Sodium Chloride 0.9% 50 ml @ 100 mls/hr IVPB Q24HR [facility] Rx#:[id number] Oral 118 460 Output: Urine 1300 2200 900 Other: Voiding Method Urinal Urinal # Voids 1 - Labs CBC & Chem 7: 08/27/22 06:41 08/27/22 06:41 Labs: Abnormal Lab Results - Last 24 Hours (Table) 08/27/22 08/27/22 Range/Units 07:35 11:51 Troponin I 0.060 H* (0.000-0.034) ng/mL Procalcitonin 0.12 H (0.02-0.09) ng/mL Microbiology - Last 24 Hours (Table) 08/27/22 07:15 Blood Culture - Preliminary Blood 08/27/22 07:00 Blood Culture - Preliminary Blood 08/27/22 07:59 Gram Stain - Preliminary Sputum
--- NOTE | 2022-08-28 13:45 | P.PN ---
Subjective Progress Note Date: 08/28/22 patient is 61-year-old gentleman with past medical history significant for COPD, lung cancer presented to the ER because of shortness of breath. Patient stated that he woke up this morning with feeling of shortness of breath and palpitations. Denies any chest pain at that time. He initially called EMS when EMS arrived patient was saturating well on room air but he was placed on 2 L of oxygen for comfort. Patient was brought to the ER. Initial telemetry showed patient to be SVT. Repeat EKG showed patient to be in sinus rhythm Initial lab work done in the ER showed WBC 7.6, hemoglobin 10, platelet count 289, sodium 13, potassium 3.9, BUN 34, creatinine 1.11, troponin 0.041, proBNP, 2250, Chest x-ray done showed perihilar infiltrates and right upper lobe infiltrate correlate for pneumonia Patient was admitted to medicine service 08/28. Patient seen and examined. CT chest negative for PE, showed interval enlargement of the mass involving the right upper lobe extending into the hilum measuring 5.8 x 5 cm . Ultrasound lower extremities negative for DVT States he feels better. Swelling of legs is improved REVIEW OF SYSTEMS: CONSTITUTIONAL: No fever, no malaise,. CARDIOVASCULAR: No chest pain, no palpitations, no syncope. PULMONARY: No shortness of breath, no cough, GASTROINTESTINAL: No diarrhea, no nausea, no vomiting, no abdominal pain. NEUROLOGICAL: No headaches, no weakness, PHYSICAL EXAMINATION: GENERAL: The patient is alert and oriented x3, not in any acute distress. Well developed, well nourished. HEENT: Pupils are round and equally reacting to light. EOMI. No scleral icterus. No conjunctival pallor. Normocephalic, atraumatic. No pharyngeal erythema. No thyromegaly. CARDIOVASCULAR: S1 and S2 present. No murmurs, rubs, or gallops. PULMONARY: Chest is clear to auscultation, no wheezing or crackles. ABDOMEN: Soft, nontender, nondistended, normoactive bowel sounds. No palpable organomegaly. MUSCULOSKELETAL: No joint swelling or deformity. EXTREMITIES: No cyanosis, clubbing, or pedal edema. NEUROLOGICAL: Gross neurological examination did not reveal any focal deficits. SKIN: No rashes. Assessment and plan Nonsustained V. tach Acute hypoxic respiratory failure Bacterial pneumonia Cardiomyopathy EF of 35% Acute exacerbation of COPD History of lung cancer Hypertension hyperlipidemia Monitor vital signs Monitor CBC Monitor CMP Continue telemetry monitoring Continue Lopressor Trend troponins ultrasound lower extremity negative for DVT CT chest negative for PE, showed interval enlargement of the mass involving the right upper lobe extending into the hilum measuring 5.8 x 5 cm Continue IV Rocephin and azithromycin Continue breathing treatments 2-D echo done showed LV systolic dysfunction with EF of 35%, apical hypokinesis Cardiology added Aldactone and Farxiga Labs and medication were reviewed.. Continue same treatment. Continue with symptomatic treatment. Resume home medication. Monitor labs and vitals. DVT and GI prophylaxis. Further recommendations as per clinical course of the patient Objective - Vital Signs Vital signs: Vital Signs Temp 97.6 F 08/27/22 14:33 Pulse 90 08/28/22 08:28 Resp 20 08/28/22 03:30 BP 157/83 08/28/22 03:30 Pulse Ox 97 08/28/22 08:17 FiO2 Intake & Output 08/27/22 08/28/22 08/28/22 18:59 06:59 18:59 Intake Total 418 110 Output Total 1300 2200 Balance -882 -2200 110 Weight 81.647 kg Intake: Intake, IV Titration 300 Amount Azithromycin 500 mg In 250 Sodium Chloride 0.9% 250 ml @ 250 mls/hr IVPB ONCE ST[facility] Rx#:[id number] cefTRIAXone 2 gm In 50 Sodium Chloride 0.9% 50 ml @ 100 mls/hr IVPB ONCE STA Rx#:[id number] Oral 118 110 Output: Urine 1300 2200 Other: Voiding Method Urinal Urinal # Voids 1 - Labs CBC & Chem 7: 08/27/22 06:41 08/27/22 06:41 Labs: Abnormal Lab Results - Last 24 Hours (Table) 08/27/22 08/27/22 08/27/22 Range/Units 07:35 07:35 09:06 Troponin I 0.041 H* (0.000-0.034) ng/mL C-Reactive Protein 3.2 H (<1.0) mg/dL Procalcitonin 0.12 H (0.02-0.09) ng/mL 08/27/22 Range/Units 11:51 Troponin I 0.060 H* (0.000-0.034) ng/mL C-Reactive Protein (<1.0) mg/dL Procalcitonin (0.02-0.09) ng/mL
[2022-08-28] MEDS: SPIRONOLACTONE 25 MG TAB PO SCH (15:36)
[2022-08-28] MEDS: DAPAGLIFLOZIN PROPANEDIOL 10 MG TABLET PO SCH (15:36)
[2022-08-28] MEDS: lisinopriL 5 MG TAB PO SCH (19:39)
[2022-08-28] MEDS ORDERED: lisinopriL 10 MG TAB PO STA (23:35)
[2022-08-29 07:41] LABS: Anisocytosis Slight; HCT 31.7 % (39.0-53.0); HGB 9.9 gm/dL (13.0-17.5); Hypochromasia Marked; MCH 31.7 pg (25.0-35.0); MCHC 31.4 g/dL (31.0-37.0); MCV 100.9 fL (80.0-100.0); Macrocytosis Moderate; Mean Platelet Volume 7.5; Platelet Count 283 k/uL (150-450); Poikilocytosis Slight; RBC 3.14 m/uL (4.30-5.90); RDW 18.4 % (11.5-15.5); WBC 6.7 k/uL (3.8-10.6)
[2022-08-29 07:58] LABS: ALT 16 U/L (4-49); AST 33 U/L (17-59); African American GFR (CKD) 82 (>60 ml/min/1.73 sqM); Albumin 2.8 g/dL (3.5-5.0); Alkaline Phosphatase 48 U/L (38-126); Anion Gap 3 mmol/L; Blood Urea Nitrogen 30 mg/dL (9-20); Carbon Dioxide 30 mmol/L (22-30); Chloride 104 mmol/L (98-107); Glucose 86 mg/dL (74-99); Non-African American GFR(CKD) 71 (>60 ml/min/1.73 sqM); Sodium 137 mmol/L (137-145); Total Bilirubin 0.6 mg/dL (0.2-1.3); Total Protein 6.4 g/dL (6.3-8.2)
[2022-08-29] MEDS: IPRATROPIUM 0.5 MG/2.5 ML NEBU INHALATION SCH ×4 (08:10→20:35)
[2022-08-29 08:15] LABS: Potassium 4.5 mmol/L (3.5-5.1)
[2022-08-29] MEDS: lisinopriL 5 MG TAB PO SCH ×2 (09:07→21:31)
[2022-08-29] MEDS: DAPAGLIFLOZIN PROPANEDIOL 10 MG TABLET PO SCH (09:07)
[2022-08-29] MEDS: HYDROCORTISONE 10 MG TAB PO SCH ×2 (09:07→16:43)
[2022-08-29] MEDS: FUROSEMIDE 40 MG TAB PO SCH ×2 (09:07→16:43)
[2022-08-29] MEDS: ASPIRIN 81 MG PO SCH (09:07)
[2022-08-29] MEDS: AZITHROMYCIN 500 MG TAB PO SCH (09:07)
[2022-08-29] MEDS: METOPROLOL TARTRATE 50 MG TAB PO SCH ×2 (09:07→21:31)
[2022-08-29] MEDS: SPIRONOLACTONE 25 MG TAB PO SCH (09:08)
[2022-08-29] MEDS: HYDROcodone/APAP 10-325MG 1 EACH TAB PO SCH ×4 (09:08→23:27)
[2022-08-29] MEDS: ATORVASTATIN 80 MG TAB PO SCH (09:08)
--- NOTE | 2022-08-29 10:11 | P.PN ---
Subjective Progress Note Date: 08/29/22 PROGRESS NOTE The patient is a 61-year-old male with a known history of CAD prior history of cardiomyopathy, hypertension, hyperlipidemia and history of lung cancer who presented with symptoms of progressive dyspnea. On presentation he had an episode of wide-complex tachycardia that could be related to nonsustained VT. He continues to have a cough, productive with hemoptysis. His computed tomography scan of the chest suggest progression of his malignancy. His echocardiogram showed worsening of his LV systolic function. He's feeling better today, continues to be dyspneic and coughing but better overall. He denies any chest discomfort, dizziness or palpitations. There is no further episodes of arrhythmia August 29: The patient continues to be dyspneic, mildly better. Continues to cough. He denies any chest discomfort, dizziness or palpitations. He denies any nausea or vomiting. He continues to have peripheral edema. He is in sinus mechanism and hemodynamically stable. He continues to be on antibiotics. Medications: Aspirin, Lipitor 80 mg daily, furosemide 40 mg twice a day, lisinopril 5 mg twice a day, metoprolol tartrate 50 mg twice a day. Hydrocortisone, Zithromax. Farxiga 10 mg daily, Aldactone 25 mg daily, PHYSICAL EXAMINATION: Blood pressure 124/68 heart rate 76 LUNGS: Scattered rhonchi HEART: Regular rate and rhythm, S1, S2. No S3. Systolic ejection murmur ABDOMEN: Soft, nontender, no organomegaly EXTREMETIES: +1 edema LAB: BUN 30, creatinine 1.12, potassium 4.5, hemoglobin 9.9. IMPRESSION: 1. Progressive dyspnea with evidence of pneumonia and progression of lung cancer 2. History of cardiomyopathy with worsening of the LV function and CHF 3. History of CAD 4. History of hypertension 5. Troponin elevation, no evidence to suggest acute coronary syndrome, representing type II event 6. History of hyperlipidemia PLAN: 1. Continue present therapy 2. Adjust dose of lisinopril depending on blood pressure 3. Treatment of his pneumonia and subsequent reevaluation of his lung cancer 4. Depending on his progress further recommendations will be made. Objective - Vital Signs Vital signs: Vital Signs Temp 98.0 F 08/29/22 08:15 Pulse 76 08/29/22 08:22 Resp 18 08/29/22 08:15 BP 158/78 08/29/22 08:15 Pulse Ox 98 08/29/22 08:15 FiO2 Intake & Output 08/28/22 08/29/22 08/29/22 18:59 06:59 18:59 Intake Total 990 480 Output Total 1200 1200 325 Balance -210 -1200 155 Intake: Intake, IV Titration 50 Amount cefTRIAXone 2 gm In 50 Sodium Chloride 0.9% 50 ml @ 100 mls/hr IVPB Q24HR [facility] Rx#:[id number] Oral 940 480 Output: Urine 1200 1200 325 Other: Voiding Method Urinal Urinal - Labs CBC & Chem 7: 08/29/22 07:23 08/29/22 07:23 Labs: Abnormal Lab Results - Last 24 Hours (Table) 08/29/22 08/29/22 Range/Units 07: 07:23 RBC 3.14 L (4.30-5.90) m/uL Hgb 9.9 L (13.0-17.5) gm/dL Hct 31.7 L (39.0-53.0) % MCV 100.9 H (80.0-100.0) fL RDW 18.4 H (11.5-15.5) % BUN 30 H (9-20) mg/dL Calcium 8.0 L (8.4-10.2) mg/dL Albumin 2.8 L (3.5-5.0) g/dL Microbiology - Last 24 Hours (Table) 08/27/22 07:15 Blood Culture - Preliminary Blood 08/27/22 07:00 Blood Culture - Preliminary Blood 08/27/22 07:59 Gram Stain - Preliminary Sputum
--- NOTE | 2022-08-29 11:04 | P.PN ---
Subjective Progress Note Date: 08/29/22 This 61-year-old male patient with history of metastatic squamous cell carcinoma along with known history of coronary artery disease, history of hypertension, hyperlipidemia and previous history of congestion heart failure with seems to be quite optimized for now. The patient is currently receiving systemic chemotherapy. Note that at the time of his diagnosis, the patient was started on immunotherapy in his condition progressed and subsequently the patient was given a combination of carboplatin and Gemzar and the patient has completed his systemic chemotherapy and currently is being given a holiday off chemotherapeutic agents. Also recent CAT scan of the chest abdomen and pelvis that was done on 07/09/2022 showed radiographic response and the right suprahilar sedated mass has shrunken down to 3.6 cm from the previous measurement of 6.7 cm. The patient also had a slight improvement in the left infrahilar spiculated mass was measuring 3.4 compared to 4.2 cm in size. There was abnormal right hilar and subcarinal lymphadenopathy was again noted in the subcarinal lymph node was measuring 2.1 cm in size. Overall, the patient had some partial positive treatment response. The patient came into the emergency department because of acute shortness of breath and palpitations. He also was having some limited hemoptysis/bloody mucoid sputum that he was coughing at home. He came into the emergency and the patient was found to have SVT with a rapid ventricular response and a heart rate was above 200. He subsequently converted spontaneously to sinus rhythm. Currently is in normal sinus rhythm. Afebrile. Denies having any chest pain. Note that his cardiac catheterization from 2079 showed a patent stent to the RCA and proximal OM1. His echocardiogram from June 2022 showed an ejection fraction of 55-60% with moderate pulmonary hypertension. The patient's repeat chest x-ray the emergency department showed a right upper lobe opacity and a left infrahilar opacity in addition to a new area of consolidation in the left midlung area. Based on that, I recommended a CAT scan of the chest and this was done using the CT angiogram protocol. Unfortunately, there was interval enlargement of the sedated mass in the right upper lobe and this was currently measuring 5.8 x 5 cm in size and there was persistent peribronchial wall thickening and narrowing of the right mainstem bronchus. There is also interval development of patchy bilateral airspace disease/consolidation suspicious for pneumonia. There was stable pathologic mediastinal and hilar lymphadenopathy. The left infrahilar mass is also increased in size and there is also an area of left lower lobe atelectasis and there is development of a small right-sided pleural effusion. No evidence of any pulmonary embolism. He did complain of increased lower extremity edema and based on that the patient was given a Doppler of the lower extremity that showed no evidence of any DVTs. The white cell count of 7.6 with hemoglobin of 10, BUN is 34 with a creatinine of 1.1 and a sodium level is 138. Normal LFTs. Troponins are 0.04, 0.04 and 0 point 06 respectively. ProBNP level was 2250. Influenza, Covid 19 and RSV were all negative. Normal cognition profile. 08/28/2022, the patient is slightly better compared to yesterday, the patient is coughing out copious amounts of thick purulent sputum and the patient is c urrently on accommodation of Rocephin and Zithromax. Cultures were sent and that is also still pending for now. No fever. No chills. CAT scan of the chest was reviewed and I commented on the findings. He is on 3 L of oxygen by nasal cannula. 08/29/2022, the patient is still coughing up copious amounts of purulent blister secretions. Gram stain was noted. The fungal culture still pending for now. Remains on antibiotics with Rocephin and Zithromax. The patient will be also given IV Solu-Medrol today the patient is noted to be bronchospastic and wheezy. No other new complaints otherwise for now. The white cell count at 6.7 with a hemoglobin of 9.9. BUN is at 30 with a creatinine of 1.2. ProBNP level is 2890. Cardiology is also seeing the patient with us. The patient is on 3 L of oxygen by nasal cannula. The patient has progression in his metastatic squamous cell carcinoma of the lung as stated earlier. Objective - Vital Signs Vital signs: Vital Signs Temp 98.0 F 08/29/22 08:15 Pulse 76 08/29/22 08:22 Resp 18 08/29/22 08:15 BP 158/78 08/29/22 08:15 Pulse Ox 98 08/29/22 08:15 FiO2 Intake & Output 08/28/22 08/29/2223 18:59 06:59 18:59 Intake Total 990 480 Output Total 1200 1200 325 Balance -210 -1200 155 Intake: Intake, IV Titration 50 Amount cefTRIAXone 2 gm In 50 Sodium Chloride 0.9% 50 ml @ 100 mls/hr IVPB Q24HR [facility] Rx#:[id number] Oral 940 480 Output: Urine 1200 1200 325 Other: Voiding Method Urinal Urinal - Exam GENERAL: Well-developed in no acute distress. , Not having any significant respiratory distress and the patient is currently on 2 L of oxygen by nasal cannula Head exam was generally normal. There was no scleral icterus or corneal arcus. Mucous membranes were moist. HEENT: Head is normocephalic. Pupils are equal, round. Sclerae anicteric. Mucous membranes of the mouth are moist. Neck supple. No JVD or thyromegaly LUNGS: Respirations even and unlabored. Lungs diminished to auscultation bilaterally. HEART: Regular rate and rhythm. S1 and S2 heard. ABDOMEN: Abdominal exam revealed normal bowel sounds. The abdomen was soft, non- tender, and without masses, organomegaly, or appreciable enlargement of the abdominal aorta. EXTREMITIES: Normal range of motion. No clubbing or cyanosis. Peripheral pulses intact. 2+ bilateral lower extremity edema NNeurologically, the patient is awake and alert and the patient does not have any focal neurological deficit. Cranial nerves are essentially intact. Examination of the skin revealed no evidence of significant rashes, suspicious appearing nevi or other concerning lesions. - Labs CBC & Chem 7: 08/29/22 07:08/29/22 07:23 Labs: Abnormal Lab Results - Last 24 Hours (Table) 08/29/22 08/29/22 Range/Units : 07: RBC 3.14 L (4.30-5.90) m/uL Hgb 9.9 L (13.0-17.5) gm/dL Hct 31.7 L (39.0-53.0) % MCV 100.9 H (80.0-100.0) fL RDW 18.4 H (11.5-15.5) % BUN 30 H (9-20) mg/dL Calcium 8.0 L (8.4-10.2) mg/dL Albumin 2.8 L (3.5-5.0) g/dL Microbiology - Last 24 Hours (Table) 08/27/22 07:15 Blood Culture - Preliminary Blood 08/27/22 07:00 Blood Culture - Preliminary Blood 08/27/22 07:59 Gram Stain - Preliminary Sputum Assessment and Plan Plan: Metastatic squamous cell carcinoma of the lung, completed systemic chemotherapy utilizing a combination of carboplatinum and gemcitabine. Follow-up CAT scan of the chest that was done today and a pulmonary CT angiogram showed interval progression of his malignancy with enlargement of the right upper lobe mass, left infrahilar mass and the patient is also developed patchy bilateral pulmonary infiltrates, possibility of tumor progression versus pneumonia. Acute shortness of breath, related to SVT, recovered and the patient is back to normal sinus rhythm SVT, preserved LV function based on previous echocardiograms along with known history of coronary artery disease and some limited troponin leak, failure of any chest pain, converted into normal sinus rhythm Hemoptysis related to his underlying non-small cell lung cancer Coronary artery disease with previous stenting of the RCA and proximal OM1 History of ischemic cardiacmyopathy, recovered left ventricular ejection fraction Hypertension Hyperlipidemia Former smoker Lower extremity edema, no evidence of any DVT Plan Awaiting final sputum cultures Check pro calcitonin level is currently at 0.12 Continue Rocephin and Zithromax Continue Lasix 40 mg by mouth twice a day and will start Solu-Medrol 60 mg every 8 hours Watch for any signs of hemoptysis We'll continue to follow Prognosis poor with obvious progression in his underlying non-small cell lung cancer oncology consultation also.
[2022-08-29] MEDS: methylPREDNISolone SOD SUCCI 125 MG/2 ML VIAL IV SCH ×3 (12:20→23:27)
--- NOTE | 2022-08-29 14:26 | P.PN ---
Subjective Progress Note Date: 08/29/22 patient is 61-year-old gentleman with past medical history significant for COPD, lung cancer presented to the ER because of shortness of breath. Patient stated that he woke up this morning with feeling of shortness of breath and palpitations. Denies any chest pain at that time. He initially called EMS when EMS arrived patient was saturating well on room air but he was placed on 2 L of oxygen for comfort. Patient was brought to the ER. Initial telemetry showed patient to be SVT. Repeat EKG showed patient to be in sinus rhythm Initial lab work done in the ER showed WBC 7.6, hemoglobin 10, platelet count 289, sodium 13, potassium 3.9, BUN 34, creatinine 1.11, troponin 0.041, proBNP, 2250, Chest x-ray done showed perihilar infiltrates and right upper lobe infiltrate correlate for pneumonia Patient was admitted to medicine service 08/28. Patient seen and examined. CT chest negative for PE, showed interval enlargement of the mass involving the right upper lobe extending into the hilum measuring 5.8 x 5 cm . Ultrasound lower extremities negative for DVT States he feels better. Swelling of legs is improved 08/29. Patient seen and examined. States swelling of legs is improved REVIEW OF SYSTEMS: CONSTITUTIONAL: No fever, no malaise,. CARDIOVASCULAR: No chest pain, no palpitations, no syncope. PULMONARY: No shortness of breath, no cough, GASTROINTESTINAL: No diarrhea, no nausea, no vomiting, no abdominal pain. NEUROLOGICAL: No headaches, no weakness, PHYSICAL EXAMINATION: GENERAL: The patient is alert and oriented x3, not in any acute distress. Well developed, well nourished. HEENT: Pupils are round and equally reacting to light. EOMI. No scleral icterus. No conjunctival pallor. Normocephalic, atraumatic. No pharyngeal erythema. No thyromegaly. CARDIOVASCULAR: S1 and S2 present. No murmurs, rubs, or gallops. PULMONARY: Chest is clear to auscultation, no wheezing or crackles. ABDOMEN: Soft, nontender, nondistended, normoactive bowel sounds. No palpable organomegaly. MUSCULOSKELETAL: No joint swelling or deformity. EXTREMITIES: No cyanosis, clubbing, or pedal edema. NEUROLOGICAL: Gross neurological examination did not reveal any focal deficits. SKIN: No rashes. Assessment and plan Nonsustained V. tach Acute hypoxic respiratory failure Bacterial pneumonia Cardiomyopathy EF of 35% Acute exacerbation of COPD History of lung cancer Hypertension hyperlipidemia Monitor vital signs Monitor CBC Monitor CMP Continue telemetry monitoring Continue Lopressor Trend troponins ultrasound lower extremity negative for DVT CT chest negative for PE, showed interval enlargement of the mass involving the right upper lobe extending into the hilum measuring 5.8 x 5 cm Continue IV Rocephin and azithromycin Continue breathing treatments 2-D echo done showed LV systolic dysfunction with EF of 35%, apical hypokinesis Continue Aldactone and Farxiga Follow-up on pulmonary recommendations Follow-up on cardiology recommendations Labs and medication were reviewed.. Continue same treatment. Continue with symptomatic treatment. Resume home medication. Monitor labs and vitals. DVT and GI prophylaxis. Further recommendations as per clinical course of the patient Objective - Vital Signs Vital signs: Vital Signs Temp 98.0 F 08/29/22 08:15 Pulse 76 08/29/22 08:22 Resp 18 08/29/22 08:15 BP 158/78 08/29/22 08:15 Pulse Ox 98 08/29/22 08:15 FiO2 Intake & Output 08/28/22 08/29/22 08/29/22 18:59 06:59 18:59 Intake Total 990 480 Output Total 1200 1200 475 Balance -210 -1200 5 Intake: Intake, IV Titration 50 Amount cefTRIAXone 2 gm In 50 Sodium Chloride 0.9% 50 ml @ 100 mls/hr IVPB Q24HR [facility] Rx#:[id number] Oral 940 480 Output: Urine 1200 1200 475 Other: Voiding Method Urinal Urinal - Labs CBC & Chem 7: 08/29/22 07:23 08/29/22 07:23 Labs: Abnormal Lab Results - Last 24 Hours (Table) 08/29/22 08/29/22 Range/Units 07:23 07:23 RBC 3.14 L (4.30-5.90) m/uL Hgb 9.9 L (13.0-17.5) gm/dL Hct 31.7 L (39.0-53.0) % MCV 100.9 H (80.0-100.0) fL RDW 18.4 H (11.5-15.5) % BUN 30 H (9-20) mg/dL Calcium 8.0 L (8.4-10.2) mg/dL Albumin 2.8 L (3.5-5.0) g/dL Microbiology - Last 24 Hours (Table) 08/27/22 07:15 Blood Culture - Preliminary Blood 08/27/22 07:00 Blood Culture - Preliminary Blood 08/27/22 07:59 Gram Stain - Preliminary Sputum
--- NOTE | 2022-08-30 07:30 | XR ---
EXAMINATION TYPE: XR chest 1V DATE OF EXAM: 08/30/2022 6:47 AM COMPARISON: Chest radiographs from TECHNIQUE: XR chest 1V Frontal view of the chest. CLINICAL INDICATION:Male, 61 years old with history of FU pneumonia; FINDINGS: Lungs/Pleura: Similar multifocal airspace opacities. No evidence of pneumothorax or pleural effusion. Pulmonary vascularity: Unremarkable. Heart/mediastinum: Cardiomediastinal silhouette is unremarkable. Musculoskeletal: No acute osseous pathology. IMPRESSION: Stable exam with airspace opacities in the right upper lung and left midlung.
[2022-08-30] MEDS: methylPREDNISolone SOD SUCCI 125 MG/2 ML VIAL IV SCH (08:24)
[2022-08-30] MEDS: FUROSEMIDE 40 MG TAB PO SCH ×2 (08:28→15:26)
[2022-08-30] MEDS: SPIRONOLACTONE 25 MG TAB PO SCH (08:28)
[2022-08-30] MEDS: ATORVASTATIN 80 MG TAB PO SCH (08:28)
[2022-08-30] MEDS: HYDROcodone/APAP 10-325MG 1 EACH TAB PO SCH ×4 (08:29→23:46)
[2022-08-30] MEDS: lisinopriL 5 MG TAB PO SCH (08:30)
[2022-08-30] MEDS: ASPIRIN 81 MG PO SCH (08:30)
[2022-08-30] MEDS: METOPROLOL TARTRATE 50 MG TAB PO SCH ×2 (08:30→20:55)
[2022-08-30] MEDS: HYDROCORTISONE 10 MG TAB PO SCH ×2 (08:31→15:26)
[2022-08-30] MEDS: DAPAGLIFLOZIN PROPANEDIOL 10 MG TABLET PO SCH (08:32)
[2022-08-30 09:49] LABS: African American GFR (CKD) 80 (>60 ml/min/1.73 sqM); Anion Gap 10 mmol/L; Blood Urea Nitrogen 34 mg/dL (9-20); Calcium 8.6 mg/dL (8.4-10.2); Carbon Dioxide 25 mmol/L (22-30); Chloride 100 mmol/L (98-107); Glucose 208 mg/dL (74-99); Non-African American GFR(CKD) 69 (>60 ml/min/1.73 sqM); Potassium 4.4 mmol/L (3.5-5.1); Sodium 135 mmol/L (137-145)
--- NOTE | 2022-08-30 13:42 | P.PN ---
Subjective Progress Note Date: 08/30/22 patient is 61-year-old gentleman with past medical history significant for COPD, lung cancer presented to the ER because of shortness of breath. Patient stated that he woke up this morning with feeling of shortness of breath and palpitations. Denies any chest pain at that time. He initially called EMS when EMS arrived patient was saturating well on room air but he was placed on 2 L of oxygen for comfort. Patient was brought to the ER. Initial telemetry showed patient to be SVT. Repeat EKG showed patient to be in sinus rhythm Initial lab work done in the ER showed WBC 7.6, hemoglobin 10, platelet count 289, sodium 13, potassium 3.9, BUN 34, creatinine 1.11, troponin 0.041, proBNP, 2250, Chest x-ray done showed perihilar infiltrates and right upper lobe infiltrate correlate for pneumonia Patient was admitted to medicine service 08/28. Patient seen and examined. CT chest negative for PE, showed interval enlargement of the mass involving the right upper lobe extending into the hilum measuring 5.8 x 5 cm . Ultrasound lower extremities negative for DVT States he feels better. Swelling of legs is improved 08/29. Patient seen and examined. States swelling of legs is improved 08/30. Patient seen and examined. No acute issues overnight. States breathing is improving. Hematology oncology planned to talk with radiation oncology regarding radiation treatment REVIEW OF SYSTEMS: CONSTITUTIONAL: No fever, no malaise,. CARDIOVASCULAR: No chest pain, no palpitations, no syncope. PULMONARY: No shortness of breath, no cough, GASTROINTESTINAL: No diarrhea, no nausea, no vomiting, no abdominal pain. NEUROLOGICAL: No headaches, no weakness, PHYSICAL EXAMINATION: GENERAL: The patient is alert and oriented x3, not in any acute distress. Well developed, well nourished. HEENT: Pupils are round and equally reacting to light. EOMI. No scleral icterus. No conjunctival pallor. Normocephalic, atraumatic. No pharyngeal erythema. No thyromegaly. CARDIOVASCULAR: S1 and S2 present. No murmurs, rubs, or gallops. PULMONARY: Chest is clear to auscultation, no wheezing or crackles. ABDOMEN: Soft, nontender, nondistended, normoactive bowel sounds. No palpable organomegaly. MUSCULOSKELETAL: No joint swelling or deformity. EXTREMITIES: No cyanosis, clubbing, or pedal edema. NEUROLOGICAL: Gross neurological examination did not reveal any focal deficits. SKIN: No rashes. Assessment and plan Nonsustained V. tach Acute hypoxic respiratory failure Bacterial pneumonia Cardiomyopathy EF of 35% Acute exacerbation of COPD History of lung cancer Hypertension hyperlipidemia Monitor vital signs Monitor CBC Monitor CMP Continue telemetry monitoring Continue Lopressor Trend troponins ultrasound lower extremity negative for DVT CT chest negative for PE, showed interval enlargement of the mass involving the right upper lobe extending into the hilum measuring 5.8 x 5 cm Continue IV Rocephin and azithromycin Continue oral Lasix 40 twice a day Continue Solu-Medrol Continue breathing treatments 2-D echo done showed LV systolic dysfunction with EF of 35%, apical hypokinesis Continue Aldactone and Farxiga Follow-up on pulmonary recommendations Follow-up on cardiology recommendations Hematology oncology planned to talk with radiation oncology regarding radiation treatment Labs and medication were reviewed.. Continue same treatment. Continue with symptomatic treatment. Resume home medication. Monitor labs and vitals. DVT and GI prophylaxis. Further recommendations as per clinical course of the patient Objective - Vital Signs Vital signs: Vital Signs Temp 96.2 F L 08/30/22 08:00 Pulse 87 08/30/22 08:00 Resp 18 08/30/22 08:00 BP 154/86 08/30/22 08:00 Pulse Ox 97 08/30/22 08:00 FiO2 Intake & Output 08/29/22 08/30/22 08/30/22 18:59 06:59 18:59 Intake Total 838 240 240 Output Total 1175 300 Balance -337 -60 240 Intake: Oral 838 240 240 Output: Urine 1175 300 Other: Voiding Method Urinal Urinal Urinal - Labs CBC & Chem 7: 08/29/22 07:23 08/30/22 08:34 Labs: Abnormal Lab Results - Last 24 Hours (Table) 08/30/22 Range/Units 08:34 Sodium 135 L (137-145) mmol/L BUN 34 H (9-20) mg/dL Glucose 208 H (74-99) mg/dL Microbiology - Last 24 Hours (Table) 08/27/22 07:15 Blood Culture - Preliminary Blood 08/27/22 07:00 Blood Culture - Preliminary Blood 08/27/22 07:59 Gram Stain - Final Sputum Sputum Culture - Final
[2022-08-30] MEDS ORDERED: lisinopriL 5 MG TAB PO STA (13:55)
[2022-08-30] MEDS ORDERED: lisinopriL 10 MG TAB PO STA (13:58)
--- NOTE | 2022-08-30 14:28 | P.PN ---
Subjective Progress Note Date: 08/30/22 This 61-year-old male patient with history of metastatic squamous cell carcinoma along with known history of coronary artery disease, history of hypertension, hyperlipidemia and previous history of congestion heart failure with seems to be quite optimized for now. The patient is currently receiving systemic chemotherapy. Note that at the time of his diagnosis, the patient was started on immunotherapy in his condition progressed and subsequently the patient was given a combination of carboplatin and Gemzar and the patient has completed his systemic chemotherapy and currently is being given a holiday off chemotherapeutic agents. Also recent CAT scan of the chest abdomen and pelvis that was done on 07/09/2022 showed radiographic response and the right suprahilar sedated mass has shrunken down to 3.6 cm from the previous measurement of 6.7 cm. The patient also had a slight improvement in the left infrahilar spiculated mass was measuring 3.4 compared to 4.2 cm in size. There was abnormal right hilar and subcarinal lymphadenopathy was again noted in the subcarinal lymph node was measuring 2.1 cm in size. Overall, the patient had some partial positive treatment response. The patient came into the emergency department because of acute shortness of breath and palpitations. He also was h aving some limited hemoptysis/bloody mucoid sputum that he was coughing at home. He came into the emergency and the patient was found to have SVT with a rapid ventricular response and a heart rate was above 200. He subsequently converted spontaneously to sinus rhythm. Currently is in normal sinus rhythm. Afebrile. Denies having any chest pain. Note that his cardiac catheterization from 2079 showed a patent stent to the RCA and proximal OM1. His echocardiogram from June 2022 showed an ejection fraction of 55-60% with moderate pulmonary hypertension. The patient's repeat chest x-ray the emergency department showed a right upper lobe opacity and a left infrahilar opacity in addition to a new area of consolidation in the left midlung area. Based on that, I recommended a CAT scan of the chest and this was done using the CT angiogram protocol. Unfortunately, there was interval enlargement of the sedated mass in the right upper lobe and this was currently measuring 5.8 x 5 cm in size and there was persistent peribronchial wall thickening and narrowing of the right mainstem bronchus. There is also interval development of patchy bilateral airspace disease/consolidation suspicious for pneumonia. There was stable pathologic mediastinal and hilar lymphadenopathy. The left infrahilar mass is also increased in size and there is also an area of left lower lobe atelectasis and there is development of a small right-sided pleural effusion. No evidence of any pulmonary embolism. He did complain of increased lower extremity edema and based on that the patient was given a Doppler of the lower extremity that showed no evidence of any DVTs. The white cell count of 7.6 with hemoglobin of 10, BUN is 34 with a creatinine of 1.1 and a sodium level is 138. Normal LFTs. Troponins are 0.04, 0.04 and 0 point 06 respectively. ProBNP level was 2250. Influenza, Covid 19 and RSV were all negative. Normal cognition profile. 08/28/2022, the patient is slightly better compared to yesterday, the patient is coughing out copious amounts of thick purulent sputum and the patient is cu rrently on accommodation of Rocephin and Zithromax. Cultures were sent and that is also still pending for now. No fever. No chills. CAT scan of the chest was reviewed and I commented on the findings. He is on 3 L of oxygen by nasal cannula. 08/29/2022, the patient is still coughing up copious amounts of purulent blister secretions. Gram stain was noted. The fungal culture still pending for now. Remains on antibiotics with Rocephin and Zithromax. The patient will be also given IV Solu-Medrol today the patient is noted to be bronchospastic and wheezy. No other new complaints otherwise for now. The white cell count at 6.7 with a hemoglobin of 9.9. BUN is at 30 with a creatinine of 1.2. ProBNP level is 2890. Cardiology is also seeing the patient with us. The patient is on 3 L of oxygen by nasal cannula. The patient has progression in his metastatic squamous cell carcinoma of the lung as stated earlier. The patient is seen today 08/30/2022 in follow-up on the selective care unit. He is currently sitting up in bed. Awake and alert in no acute distress. Maintaining good O2 saturations in the 90s on 3 L/m per nasal cannula. He is afebrile. Hemodynamically stable. Chest x-ray reveals similar multifocal airspace opacities. No evidence of pneumothorax or pleural effusion. Blood cultures reveal no growth. Sputum culture revealed no growth. White count 6.7. Hemoglobin 9.9. Platelets 283. Sodium 135. Potassium 4.4. Bicarb 25. BUN 34. Creatinine 1.15. Glucose 208. He is currently on ceftriaxone. Remains on oral diuretics. Objective - Vital Signs Vital signs: Vital Signs Temp 97.3 F L 08/30/22 11:12 Pulse 75 08/30/22 11:12 Resp 16 08/30/22 11:12 BP 152/79 08/30/22 11:12 Pulse Ox 92 L 08/30/22 13:32 FiO2 Intake & Output 08/29/22 08/30/22 08/30/22 18:59 06:59 18:59 Intake Total 838 240 605 Output Total 7279 933 9534 Balance -337 -60 -420 Intake: Oral 838 240 605 Output: Urine 8120 048 7574 Other: Voiding Method Urinal Urinal Urinal - Exam GENERAL EXAM: Alert, pleasant 61-year-old male patient, 3 L nasal cannula, comfortable in no apparent distress. HEAD: Normocephalic. EYES: Normal reaction of pupils, equal size. NOSE: Clear with pink turbinates. THROAT: No erythema or exudates. NECK: No masses, no JVD. CHEST: No chest wall deformity. LUNGS: Equal air entry with scattered rhonchi, diminished. CVS: S1 and S2 normal with no audible murmur, regular rhythm. ABDOMEN: No hepatosplenomegaly, normal bowel sounds, no guarding or rigidity. SPINE: No scoliosis or deformity SKIN: No rashes CENTRAL NERVOUS SYSTEM: No focal deficits, tone is normal in all 4 extremities. EXTREMITIES: There is no peripheral edema. No clubbing, no cyanosis. Peripheral pulses are intact. - Labs CBC & Chem 7: 08/29/22 07:23 08/30/22 08:34 Labs: Abnormal Lab Results - Last 24 Hours (Table) 08/30/22 Range/Units 08:34 Sodium 135 L (137-145) mmol/L BUN 34 H (9-20) mg/dL Glucose 208 H (74-99) mg/dL Microbiology - Last 24 Hours (Table) 08/27/22 07:15 Blood Culture - Preliminary Blood 08/27/22 07:00 Blood Culture - Preliminary Blood 08/27/22 07:59 Gram Stain - Final Sputum Sputum Culture - Final Assessment and Plan Assessment: Metastatic squamous cell carcinoma of the lung, completed systemic chemotherapy utilizing a combination of carboplatinum and gemcitabine. Follow-up CAT scan of the chest that was done today and a pulmonary CT angiogram showed interval progression of his malignancy with enlargement of the right upper lobe mass, left infrahilar mass and the patient is also developed patchy bilateral pulmonary infiltrates, possibility of tumor progression versus pneumonia. Pro calcitonin 0.12. Remains on ceftriaxone. Acute shortness of breath, related to SVT, recovered and the patient is back to normal sinus rhythm SVT, preserved LV function based on previous echocardiograms along with known history of coronary artery disease and some limited troponin leak, failure of any chest pain, converted into normal sinus rhythm Hemoptysis related to his underlying non-small cell lung cancer Coronary artery disease with previous stenting of the RCA and proximal OM1 History of ischemic cardiacmyopathy, recovered left ventricular ejection fraction Hypertension Hyperlipidemia Former smoker Lower extremity edema, no evidence of any DVT Plan: The patient was seen and evaluated Chest x-ray, medications and labs reviewed Suspect cancer progression Oncology is following May consider radiation treatments Remains on antibiotics We will continue to follow I have personally seen and examined the patient, performed the documentation and the assessment and plan as written. Number of minutes spent on the visit: 10.
--- NOTE | 2022-08-30 15:50 | CDI ---
Documentation Clarification Form Date: 08/30/2022 03:37:37 PM From: Nohemi Livingston Phone: [phone] Admit Date: 08/27/2022 08:28:00 AM Patient Name: Fracisco Rene Visit Number: [id number] Discharge Date: ATTENTION: The Clinical Documentation Specialists (CDI) and [facility] Coding Staff appreciate your assistance in clarifying documentation. Please respond to the clarification below the line at the bottom and electronically sign. The CDI & [facility] Coding staff will review the response and follow-up if needed. Please note: Queries are made part of the Legal Health Record. If you have any questions, please contact the author of this message via ITS. Dr. Dionicio Laughlin Your patient has the documented diagnosis of Cardiomyopathy EF 35% 08/28, Medicine progress note. Additional information regarding cardiomyopathy is requested. History/Risk Factors: 61-year-old male presents with shortness of breath. Medical History: Stage 4 Lung cancer; [place], SVT and heart failure. 08/27, Pulmonary consult. Clinical Indicators: VS/Pulse OX: B/P 186/102; HR 72; Temp 98.2 Oral F; RR 16; SpO2 99% 2L nasal cannula BNP, 08/27: 2250 Echocardiogram Results: Chest X Ray: 08/27 Perihilar infiltrates and right upper lobe infiltrate. Atypical pulmonary edema should also be considered. Treatment: 08/27 Lopressor po 25mg po bid; 08/27 Lopressor 50mg PO x1; 08/27 Lasix 40mg IV X1; 08/27 Lasix 40mg PO BID; Lopressor 50mg PO BID; Farxiga 10mg PO Daily; 08/28 Aldactone 25mg PO Daily In your professional opinion, can you please clarify the acuity and type of CHF if known? [ ] Chronic Systolic Heart Failure (reduced EF) [x ] Acute on Chronic Systolic Heart Failure (reduced EF) [ ] Other, please specify [ ] Unable to determine (Template Last Revised: March 2020) MTDD
--- NOTE | 2022-08-30 19:10 | P.PN ---
Subjective Progress Note Date: 08/30/22 PROGRESS NOTE The patient is a 61-year-old male with a known history of CAD prior history of cardiomyopathy, hypertension, hyperlipidemia and history of lung cancer who presented with symptoms of progressive dyspnea. On presentation he had an episode of wide-complex tachycardia that could be related to nonsustained VT. He continues to have a cough, productive with hemoptysis. His computed tomography scan of the chest suggest progression of his malignancy. His echocardiogram showed worsening of his LV systolic function. He's feeling better today, continues to be dyspneic and coughing but better overall. He denies any chest discomfort, dizziness or palpitations. There is no further episodes of arrhythmia August 29: The patient continues to be dyspneic, mildly better. Continues to cough. He d enies any chest discomfort, dizziness or palpitations. He denies any nausea or vomiting. He continues to have peripheral edema. He is in sinus mechanism and hemodynamically stable. He continues to be on antibiotics. 08/30 Patient states he has been ambulating in the hallway quite a bit. With am bulation pulse ox dropped down to 88% with OXYGEN. Lower extremity edema significantly improved. He is on Lasix 40 mg bid oral BP has been elevated. PHYSICAL EXAMINATION: Blood pressure 152/79 heart rate 70-80s LUNGS: Clear to auscultation HEART: Regular rate and rhythm, S1, S2. No S3. Systolic ejection murmur ABDOMEN: Soft, nontender, no organomegaly EXTREMETIES: +1 edema IMPRESSION: 1. Progressive dyspnea with evidence of pneumonia and progression of lung cancer 2. History of cardiomyopathy with worsening of the LV function and CHF 3. History of CAD 4. History of hypertension 5. Troponin elevation, no evidence to suggest acute coronary syndrome, representing type II event 6. History of hyperlipidemia PLAN: 1. Continue present therapy 2. Increase dose of lisinopril to 20 mg bid 3. Treatment of his pneumonia and subsequent reevaluation of his lung cancer 4. Depending on his progress further recommendations will be made. Nurse practitioner note has been reviewed, I agree with the documented findings and plan of care. Patient was seen and examined. Objective - Vital Signs Vital signs: Vital Signs Temp 97.3 F L 08/30/22 11:12 Pulse 75 08/30/22 11:12 Resp 16 08/30/22 11:12 BP 152/79 08/30/22 11:12 Pulse Ox 92 L 07/17/23 13:32 FiO2 Intake & Output 08/29/22 08/30/22 08/30/22 18:59 06:59 18:59 Intake Total 838 240 605 Output Total 2960 474 4544 Balance -337 -60 -420 Intake: Oral 838 240 605 Output: Urine 7095 269 7046 Other: Voiding Method Urinal Urinal Urinal - Labs CBC & Chem 7: 08/29/22 07:23 08/30/22 08:34 Labs: Abnormal Lab Results - Last 24 Hours (Table) 08/30/22 Range/Units 08:34 Sodium 135 L (137-145) mmol/L BUN 34 H (9-20) mg/dL Glucose 208 H (74-99) mg/dL Microbiology - Last 24 Hours (Table) 08/27/22 07:15 Blood Culture - Preliminary Blood 08/27/22 07:00 Blood Culture - Preliminary Blood 08/27/22 07:59 Gram Stain - Final Sputum Sputum Culture - Final
--- NOTE | 2022-08-30 19:15 | P.CONS ---
History of Present Illness - Reason for Consult Consult date: 08/30/22 hx of lung cancer Requesting physician: Dionicio Laughlin - Chief Complaint SOB - History of Present Illness Mr. 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 He was started on cycle 1 of carboplatin/gemcitabine on 04/27/2022 and most recently completed cycle 4 on 07/06/2022. Patient's f/u CT scans after cycle 4 had shown a partial response. Chemotherapy was therefore stopped, as planned initially. It was discussed with the patient that, typically in this setting, benefit beyond 3-4 cycles is unknown, assuming that the patient has some response or stable disease. Therefore, especially if the patient is having multiple tolerance issues the standard approach would be to take a treatment break. The patient was placed on observation, with repeat scans in 3 months. Of note, due to insurance changes within clinic, his insurance was no longer within network. Patient has been trying to work with Medicaid to change coverage but reports its still in review. Pt has been recommended to call his insurance for local oncologists that is within his network so he can establish care while awaiting insurance change. Patient presents to the emergency room for increasing shortness of breath as well as bilateral lower extremity edema. Patient was admitted in June for similar reasons. patient reports is increased lower extremity edema has been causing increased falls. He also reports hemoptysis. On admission chest x-ray showed perihilar infiltrates and right upper lobe infiltrate.CTA chest revealed no evidence of PE. Interval enlargement of spiculated mass involving the right upper lobe extending to the hilum. Measuring 5.8 x 5 cm, previously measured at 3.4 x 2.4 cm. Persistent peribronchial wall thickening and narrowing of the right main stem bronchus. Mucosal lesion in the bronchus is not excluded. Interval development of bilateral patchy air space disease in consolidation suspicious for pneumonia. Stable pathologic mediastinal and hilar adenopathy noted. Pulmonology has been consulted. Patient started on IV antibiotics. Bilateral Dopplers of lower extremity is negative for DVT. On admission patient was noted to have a heart rate of 222 and was found to be in SVT. Serial t roponins elevated. Cardiology has been consulted. BNP elevated, 2890. Continues on lasix and aldactone WBC 6.7, hemoglobin 9.9, platelets 283,000. Patient is afebrile. SPO2 97% on 3 L. Sputum and blood cultures negative. Review of Systems 10 point ROS is negative except as stated in the HPI Past Medical History Past Medical History: Coronary Artery Disease (CAD), Cancer (stage 4 Squamous cell lung cancer), Chest Pain / Angina, Hyperlipidemia, Hypertension, Myocardial Infarction ([place]) Additional Past Medical History / Comment(s): SVT with chest pain/palpitations- chemically converted. 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 3 cardiac stents. Past Anesthesia/Blood Transfusion Reactions: No Reported Reaction Date of Last Stent Placement:: 2017 Additional Past Alcohol Use History / Comment(s): Pt started smoking when he was 13 1ppd and recently quit within the last month or so. Drinks occasionally and eats marijuana gummies. Past Drug Use History: Marijuana Additional Drug Use History / Comment(s): Pt denies any drug use. PM documents marijuana. - Past Family History Father Family Medical History: No Reported History Additional Family Medical History / Comment(s): Father of "natural causes" at the age of 79yrs. Mother Family Medical History: COPD, Coronary Artery Disease (CAD) Additional Family Medical History / Comment(s): Mother is 76yrs old. She has had several MIs, 6 cardiac stents and a 4 vessel CABG. Medications and Allergies Home Medications Medication Instructions Recorded Confirmed Type Aspirin 81 mg PO DAILY #30 chew 03/05/17 08/27/22 Rx Atorvastatin [Lipitor] 80 mg PO DAILY 03/04/21 08/27/22 History Metoprolol Tartrate [Lopressor] 25 mg PO BID 03/04/21 08/27/22 History HYDROcodone/APAP 10-325MG [[place] 1 tab PO QID 05/09/22 08/27/22 History 10-325] Ondansetron [Zofran] 4 mg PO Q6H PRN 05/09/22 08/27/22 History Spiriva Respimat 1.25mcg/Actuation 2 puff INHALATION RT-HS 07/09/22 08/27/22 History Mist Furosemide [Lasix] 40 mg PO BID@0900,1600 #60 tab 07/14/22 08/27/22 Rx Hydrocortisone [Cortef] 20 mg PO DAILY@1600 08/27/22 08/27/22 History Hydrocortisone [Cortef] 30 mg PO DAILY@0900 08/27/22 08/27/22 History lisinopriL [Zestril] 5 mg PO DAILY 08/27/22 08/27/22 History Allergies Allergy/AdvReac Type Severity Reaction Status Date / Time Penicillins Allergy Dyspnea & Verified 08/27/22 09:13 Hives all over Physical Exam Vitals: Vital Signs Temp Pulse Pulse Resp BP Pulse Ox 08/30/22 07:57 97 08/30/22 04:00 80 18 154/78 97 08/30/22 02:00 75 18 08/30/22 00:00 97.8 F 76 18 141/83 98 08/29/22 20:50 72 08/29/22 20:37 72 08/29/22 20:00 98.3 F 76 18 170/93 97 08/29/22 16:06 70 08/29/22 16:00 97.9 F 75 19 164/93 95 08/29/22 15:53 68 08/29/22 14:00 75 19 08/29/22 12:01 70 08/29/22 11:52 72 08/29/22 11:50 97.8 F 78 19 158/89 97 Intake and Output 08/29/22 08/30/22 08/30/22 22:59 06:59 14:59 Intake Total 480 240 Output Total 700 300 Balance -220 -300 240 Intake: Oral 480 240 Output: Urine 700 300 Other: Voiding Method Urinal Urinal - Constitutional General appearance: average body habitus, no acute distress - EENT Eyes: anicteric sclerae, EOMI ENT: hearing grossly normal - Respiratory Respiratory: right: diminished, rales (RUL) - Cardiovascular Rhythm: regular Heart sounds: normal: S1, S2 Abnormal Heart Sounds: no systolic murmur, no diastolic murmur, no rub, no S3 Gallop, no S4 Gallop, no click, no other leg Peripheral Edema: bilateral: 2+ - Gastrointestinal General gastrointestinal: soft, no tenderness - Integumentary Integumentary: no cyanotic - Neurologic Neurologic: CNII-XII intact - Musculoskeletal Musculoskeletal: strength equal bilaterally - Psychiatric Psychiatric: A&O x's 3, appropriate affect, intact judgment & insight Results CBC & Chem 7: 08/29/22 07:23 08/30/22 08:34 Labs: Microbiology - Last 24 Hours (Table) 08/27/22 07:15 Blood Culture - Preliminary Blood 08/27/22 07:00 Blood Culture - Preliminary Blood 08/27/22 07:59 Gram Stain - Final Sputum Sputum Culture - Final Chest x-ray: report reviewed CT scan - chest: report reviewed Venous US: report reviewed Assessment and Plan (1) Pneumonia Current Visit: Yes Status: Acute Priority: High Code(s): J18.9 - PNEUMONIA, UNSPECIFIED ORGANISM SNOMED Code(s): 683159218 (2) Squamous cell lung cancer Current Visit: Yes Status: Acute Priority: High Code(s): C34.90 - MALIGNANT NEOPLASM OF UNSP PART OF UNSP BRONCHUS OR LUNG SNOMED Code(s): 423674852 (3) Leg edema Current Visit: Yes Status: Acute Priority: High Code(s): R60.0 - LOCALIZED EDEMA SNOMED Code(s): 934947853 Plan: Edema: -Ongoing over the last couple months, has been treated with lasix with some improvement in the past, recently worsening causing frequent falls -Noted development of increasing dyspnea on exertion -Bilateral Dopplers of lower extremity negative for DVT. BNP elevated, 2890. Continues on lasix and aldactone. Compression dressings applied to BLE with improvement in edema -Cardiology following Pneumonia: -CXR and CTA chest consistent with pneumonia. Started on IV abx -Sputum and blood cultures negative. -Pulmonology following Locally advanced/unresectable non-small cell lung cancer: -Treated with single agent pembrolizumab from February 2021 through March 2022 with noted disease progression at that time -Initiated carboplatin/gemcitabine on 04/27/2022 and completed cycle 4 on 07/06/2022 -Staging CT scans performed on 07/09/2022. CT CAP revealed partial positive treatment response with no acute findings. -No acute inventions for lung cancer standpoint at this time. Currently in observation with repeat scans scheduled for 10/26/22 -CTA chest upon admission revealed interval enlargement of spiculated mass involving the right upper lobe extending to the hilum. Measuring 5.8 x 5 cm, previously measured at 3.4 x 2.4 cm. Persistent peribronchial wall thickening and narrowing of the right main stem bronchus. Mucosal lesion in the bronchus is not excluded. Discussed CT findings of disease progression with patient. -Due to recent insurance changes within our clinic, his insurance was no longer within network. Pt has been recommended to call his insurance for local oncologists that is within his network so he can establish care while awaiting insurance change. He reports he is actively working with Medicaid. SW was consulted during last admission to assist patient. Will place consult to SW for additional assistance so patient can establish outpatient care upon discharge, as CT has unfortunately shown disease progression and he will need reevaluation to discuss treatment options. -Rad onc consulted for evaluation for RT of RUL mass causing narrowing of right main stem bronchus with potential mucosal lesion within the bronchus. Spoke with Dr. Shearer who will review imaging with radiology to determine if patient would be a good candidate for palliative RT. Will await further recommendations -Plan of care was discussed with patient and he was agreeable attests: I have performed H&P and developed impression and plan of care for patient, discussed with dictator. I agree with dictated note, documented as a scribe
[2022-08-30] MEDS: lisinopriL 20 MG TAB PO SCH (20:55)
[2022-08-30] MEDS ORDERED: lisinopriL 10 MG TAB PO SCH (21:00)
[2022-08-31] MEDS: HYDROcodone/APAP 10-325MG 1 EACH TAB PO SCH ×4 (07:03→23:15)
[2022-08-31] MEDS: FUROSEMIDE 40 MG TAB PO SCH ×2 (07:46→17:10)
[2022-08-31] MEDS: lisinopriL 20 MG TAB PO SCH ×2 (07:46→19:54)
[2022-08-31] MEDS: METOPROLOL TARTRATE 50 MG TAB PO SCH ×2 (07:46→19:54)
[2022-08-31] MEDS: SPIRONOLACTONE 25 MG TAB PO SCH (07:46)
[2022-08-31] MEDS: ATORVASTATIN 80 MG TAB PO SCH (07:46)
[2022-08-31] MEDS: ASPIRIN 81 MG PO SCH (07:46)
[2022-08-31] MEDS: DAPAGLIFLOZIN PROPANEDIOL 10 MG TABLET PO SCH (07:49)
[2022-08-31] MEDS: HYDROCORTISONE 10 MG TAB PO SCH ×2 (07:50→17:10)
[2022-08-31 07:59] LABS: Anisocytosis Slight; Basophils % (A) 0 %; Eosinophils % (A) 0 %; HCT 33.2 % (39.0-53.0); Hypochromasia Marked; Lymphocytes # (A) 1.7 k/uL (1.0-4.8); Lymphocytes % (A) 13 %; MCHC 30.3 g/dL (31.0-37.0); MCV 99.1 fL (80.0-100.0); Macrocytosis Slight; Mean Platelet Volume 8.9; Monocytes # (A) 0.8 k/uL (0-1.0); Monocytes % (A) 6 %; Neutrophils # (A) 10.3 k/uL (1.3-7.7); Neutrophils % (A) 79 %; Platelet Count 257 k/uL (150-450); Poikilocytosis Slight; RBC 3.35 m/uL (4.30-5.90); RDW 17.7 % (11.5-15.5)
[2022-08-31 09:19] LABS: ALT 15 U/L (4-49); AST 23 U/L (17-59); African American GFR (CKD) 75 (>60 ml/min/1.73 sqM); Albumin 2.8 g/dL (3.5-5.0); Alkaline Phosphatase 53 U/L (38-126); Anion Gap 4 mmol/L; Blood Urea Nitrogen 36 mg/dL (9-20); Calcium 8.6 mg/dL (8.4-10.2); Carbon Dioxide 31 mmol/L (22-30); Chloride 102 mmol/L (98-107); Glucose 82 mg/dL (74-99); Non-African American GFR(CKD) 65 (>60 ml/min/1.73 sqM); Potassium 4.2 mmol/L (3.5-5.1); Sodium 137 mmol/L (137-145); Total Bilirubin 0.5 mg/dL (0.2-1.3); Total Protein 6.4 g/dL (6.3-8.2)
--- NOTE | 2022-08-31 10:46 | CDI ---
Documentation Clarification Form Date: 08/31/2022 10:12:36 AM From: Nohemi Livingston RN CCDS Phone: [phone] Admit Date: 08/27/2022 08:28:00 AM Patient Name: Fracisco Rene Visit Number: [id number] Discharge Date: ATTENTION: The Clinical Documentation Specialists (CDI) and [facility] Coding Staff appreciate your assistance in clarifying documentation. Please respond to the clarification below the line at the bottom and electronically sign. The CDI & [facility] Coding staff will review the response and follow-up if needed. Please note: Queries are made part of the Legal Health Record. If you have any questions, please contact the author of this message via ITS. Dr. Neeru Tabares Type II event is documented 08/28, Cardiology note. Additional clarification regarding the etiology of the Type 2 event is requested. Patient History/Risk Factors: 61 year-old male presents with shortness of breath. Medical History: Stage 4 Lung cancer; [place], SVT and Heart Failure. 08/27, Pulmonary consult. Clinical Indicators: Troponin: 08/27 0.041; 0.060 EKG Results: 08/27, ED NOTE: Patient had an episode of SVT emergency department lasting about 30 seconds with heart rate reaching 222 BPM, but he was able to convert on his own. This was on the shelter monitor and scanned into the chart. EK/14, Sinus rhythm, Moderate ST Depression. Unconfirmed report. Treatment: 08/27 Azithromycin ivpb x 1; 08/28 Ceftriaxone ivpb x 1; 08/28 Zithromax PO Daily; 08/28 Ceftriaxone ivpb Q24H x 4 Bags; 08/29 Solumedrol 60mg IV Q8HR; Oxygen 3L nasal cannula. Pulmonology and Heme Onc consults. Please clarify the etiology of the Type 2 TX, if known: [xx ] Type 2 TX due to Pneumonia and progression of lung cancer [ ] Type 2 TX due to acute respiratory failure [ ] Type 2 TX due to other (please specify ) [ ] Unable to determine [ ] Other Condition, please specify (Template Last Revised: April 2020) MTDD
--- NOTE | 2022-08-31 11:55 | P.PN ---
Subjective Progress Note Date: 08/31/22 Principal diagnosis: Progression of metastatic squamous cell carcinoma and worsening shortness of breath, multifactorial This 61-year-old male patient with history of metastatic squamous cell carcinoma along with known history of coronary artery disease, history of hypertension, hyperlipidemia and previous history of congestion heart failure with seems to be quite optimized for now. The patient is currently receiving systemic chemotherapy. Note that at the time of his diagnosis, the patient was started on immunotherapy in his condition progressed and subsequently the patient was given a combination of carboplatin and Gemzar and the patient has completed his systemic chemotherapy and currently is being given a holiday off chemotherapeutic agents. Also recent CAT scan of the chest abdomen and pelvis that was done on 07/09/2022 showed radiographic response and the right suprahilar sedated mass has shrunken down to 3.6 cm from the previous measurement of 6.7 cm. The patient also had a slight improvement in the left infrahilar spiculated mass was measuring 3.4 compared to 4.2 cm in size. There was abnormal right hilar and subcarinal lymphadenopathy was again noted in the subcarinal lymph node was measuring 2.1 cm in size. Overall, the patient had some partial positive treatment response. The patient came into the emergency department because of acute shortness of breath and palpitations. He also was having some limited hemoptysis/bloody mucoid sputum that he was coughing at home. He came into the emergency and the patient was found to have SVT with a rapid ventricular response and a heart rate was above 200. He subsequently converted spontaneously to sinus rhythm. Currently is in normal sinus rhythm. Afebrile. Denies having any chest pain. Note that his cardiac catheterization from 2079 showed a patent stent to the RCA and proximal OM1. His echocardiogram from June 2022 showed an ejection fraction of 55-60% with moderate pulmonary hypertension. The patient's repeat chest x-ray the emergency department showed a right upper lobe opacity and a left infrahilar opacity in addition to a new area of consolidation in the left midlung area. Based on that, I recommended a CAT scan of the chest and this was done using the CT angiogram protocol. Unfortunately, there was interval enlargement of the sedated mass in the right upper lobe and this was currently measuring 5.8 x 5 cm in size and there was persistent peribronchial wall thickening and narrowing of the right mainstem bronchus. There is also interval development of patchy bilateral airspace disease/consolidation suspicious for pneumonia. There was stable pathologic mediastinal and hilar lymphadenopathy. The left infrahilar mass is also increased in size and there is also an area of left lower lobe atelectasis and there is development of a small right-sided pleural effusion. No evidence of any pulmonary embolism. He did complain of increased lower extremity edema and based on that the patient was given a Doppler of the lower extremity that showed no evidence of any DVTs. The white cell count of 7.6 with hemoglobin of 10, BUN is 34 with a creatinine of 1.1 and a sodium level is 138. Normal LFTs. Troponins are 0.04, 0.04 and 0 point 06 respectively. ProBNP level was 2250. Influenza, Covid 19 and RSV were all negative. Normal cognition profile. 08/28/2022, the patient is slightly better compared to yesterday, the patient is coughing out copious amounts of thick purulent sputum and the patient is currently on accommodation of Rocephin and Zithromax. Cultures were sent and that is also still pending for now. No fever. No chills. CAT scan of the chest was reviewed and I commented on the findings. He is on 3 L of oxygen by nasal cannula. 08/29/2022, the patient is still coughing up copious amounts of purulent blister secretions. Gram stain was noted. The fungal culture still pending for now. Remains on antibiotics with Rocephin and Zithromax. The patient will be also given IV Solu-Medrol today the patient is noted to be bronchospastic and wheezy. No other new complaints otherwise for now. The white cell count at 6.7 with a hemoglobin of 9.9. BUN is at 30 with a creatinine of 1.2. ProBNP level is 2890. Cardiology is also seeing the patient with us. The patient is on 3 L of oxygen by nasal cannula. The patient has progression in his metastatic squamous cell carcinoma of the lung as stated earlier. The patient is seen today 08/30/2022 in follow-up on the selective care unit. He is currently sitting up in bed. Awake and alert in no acute distress. Maintaining good O2 saturations in the 90s on 3 L/m per nasal cannula. He is afebrile. Hemodynamically stable. Chest x-ray reveals similar multifocal airspace opacities. No evidence of pneumothorax or pleural effusion. Blood cultures reveal no growth. Sputum culture revealed no growth. White count 6.7. Hemoglobin 9.9. Platelets 283. Sodium 135. Potassium 4.4. Bicarb 25. BUN 34. Creatinine 1.15. Glucose 208. He is currently on ceftriaxone. Remains on oral diuretics. Patient was reevaluated today on 08/31/2022, basically about the same, patient is yet to be seen by radiation oncology regarding his progression of squamous cell carcinoma and whether the patient may benefit from radiation to his right upper lobe/right hilar mass. No further episodes of hemoptysis, patient is on 1 L nasal cannula with O2 saturation of 96% WBC count is 13 hemoglobin is 10 electrolytes are normal renal profile is normal except for creatinine up to 1.21. Sputum and blood cultures have been negative so far. I believe the patient could be considered for discharge planning after evaluation by radiation oncology. Objective - Vital Signs Vital signs: Vital Signs Temp 98.3 F 08/31/22 11:23 Pulse 72 08/31/22 11:23 Resp 18 08/31/22 11:23 BP 158/82 08/31/22 11:23 Pulse Ox 96 08/31/22 11:23 FiO2 Intake & Output 08/30/22 08/31/22 08/31/22 18:59 06:59 18:59 Intake Total 970 480 Output Total 1895 1500 1000 Balance -925 -1500 -520 Intake: Oral 970 480 Output: Urine 1895 1500 1000 Other: Voiding Method Urinal Urinal Urinal - Exam Physical Exam :revealed 61-year-old white male in no distress. Very pleasant. head: Atraumatic, normocephalic. HEENT:[Neck is supple.] [No neck masses.] [No thyromegaly.] [No JVD.] Chest: scattered rhonchi on forced expiratory maneuver otherwise unremarkable. Cardiac Exam: [Normal S1 and S2, no S3 gallop, no murmur.] Abdomen: [Soft, nontender, no megaly, no rebound, no guarding, normal bowel sounds.] Extremities: [No clubbing, no edema, no cyanosis.] Neurological Exam: [No focal neurologic deficit. Psychiatric: Normal mood affect and normal status exam. Skin: No rashes.] - Labs CBC & Chem 7: 08/31/22 07:28 08/31/22 07:28 Labs: Abnormal Lab Results - Last 24 Hours (Table) 08/31/22 08/31/22 Range/Units 07:28 07:28 WBC 13.0 H (3.8-10.6) k/uL RBC 3.35 L (4.30-5.90) m/uL Hgb 10.0 L (13.0-17.5) gm/dL Hct 33.2 L (39.0-53.0) % MCHC 30.3 L (31.0-37.0) g/dL RDW 17.7 H (11.5-15.5) % Neutrophils # 10.3 H (1.3-7.7) k/uL Carbon Dioxide 31 H (22-30) mmol/L BUN 36 H (9-20) mg/dL Albumin 2.8 L (3.5-5.0) g/dL Microbiology - Last 24 Hours (Table) 08/27/22 07:15 Blood Culture - Preliminary Blood 08/27/22 07:00 Blood Culture - Preliminary Blood Assessment and Plan Assessment: Impression: Metastatic squamous cell carcinoma of the lung, completed systemic chemotherapy utilizing a combination of carboplatinum and gemcitabine. Suspect progression of his squamous cell carcinoma, possible pneumonia but clinically it is doubtful. Acute shortness of breath, related to SVT, recovered and the patient is back to normal sinus rhythm SVT, preserved LV function based on previous echocardiograms along with known history of coronary artery disease and some limited troponin leak, failure of any chest pain, converted into normal sinus rhythm Hemoptysis related to his underlying non-small cell lung cancer/progression of his squamous cell carcinoma Coronary artery disease with previous stenting of the RCA and proximal OM1 History of ischemic cardiacmyopathy, recovered left ventricular ejection fraction Hypertension Hyperlipidemia Former smoker Lower extremity edema, no evidence of any DVT Recommendation: Continue present supportive care measures To be seen by radiation oncology and decide whether radiation is an option In the meantime continue antibiotics and bronchodilators. We'll continue to follow Overall long-term prognosis is extremely poor and guarded. Time with Patient: Less than 30
--- NOTE | 2022-08-31 14:00 | P.PN ---
Subjective Progress Note Date: 08/31/22 patient is 61-year-old gentleman with past medical history significant for COPD, lung cancer presented to the ER because of shortness of breath. Patient stated that he woke up this morning with feeling of shortness of breath and palpitations. Denies any chest pain at that time. He initially called EMS when EMS arrived patient was saturating well on room air but he was placed on 2 L of oxygen for comfort. Patient was brought to the ER. Initial telemetry showed patient to be SVT. Repeat EKG showed patient to be in sinus rhythm Initial lab work done in the ER showed WBC 7.6, hemoglobin 10, platelet count 289, sodium 13, potassium 3.9, BUN 34, creatinine 1.11, troponin 0.041, proBNP, 2250, Chest x-ray done showed perihilar infiltrates and right upper lobe infiltrate correlate for pneumonia Patient was admitted to medicine service 08/28. Patient seen and examined. CT chest negative for PE, showed interval enlargement of the mass involving the right upper lobe extending into the hilum measuring 5.8 x 5 cm . Ultrasound lower extremities negative for DVT States he feels better. Swelling of legs is improved 08/29. Patient seen and examined. States swelling of legs is improved 08/30. Patient seen and examined. No acute issues overnight. States breathing is improving. Hematology oncology planned to talk with radiation oncology regarding radiation treatment 08/31. Patient seen and examined REVIEW OF SYSTEMS: CONSTITUTIONAL: No fever, no malaise,. CARDIOVASCULAR: No chest pain, no palpitations, no syncope. PULMONARY: No shortness of breath, no cough, GASTROINTESTINAL: No diarrhea, no nausea, no vomiting, no abdominal pain. NEUROLOGICAL: No headaches, no weakness, PHYSICAL EXAMINATION: GENERAL: The patient is alert and oriented x3, not in any acute distress. Well developed, well nourished. HEENT: Pupils are round and equally reacting to light. EOMI. No scleral icterus. No conjunctival pallor. Normocephalic, atraumatic. No pharyngeal erythema. No thyromegaly. CARDIOVASCULAR: S1 and S2 present. No murmurs, rubs, or gallops. PULMONARY: Chest is clear to auscultation, no wheezing or crackles. ABDOMEN: Soft, nontender, nondistended, normoactive bowel sounds. No palpable organomegaly. MUSCULOSKELETAL: No joint swelling or deformity. EXTREMITIES: No cyanosis, clubbing, or pedal edema. NEUROLOGICAL: Gross neurological examination did not reveal any focal deficits. SKIN: No rashes. Assessment and plan Nonsustained V. tach Acute hypoxic respiratory failure Bacterial pneumonia Cardiomyopathy EF of 35% Acute exacerbation of COPD History of lung cancer Hypertension hyperlipidemia Monitor vital signs Monitor CBC Monitor CMP Continue telemetry monitoring Continue Lopressor Trend troponins ultrasound lower extremity negative for DVT CT chest negative for PE, showed interval enlargement of the mass involving the right upper lobe extending into the hilum measuring 5.8 x 5 cm Completed course of antibiotic Continue oral Lasix 40 twice a day Continue breathing treatments 2-D echo done showed LV systolic dysfunction with EF of 35%, apical hypokinesis Continue Aldactone and Farxiga Follow-up on pulmonary recommendations Follow-up on cardiology recommendations Hematology oncology planned to talk with radiation oncology regarding radiation treatment Labs and medication were reviewed.. Continue same treatment. Continue with symptomatic treatment. Resume home medication. Monitor labs and vitals. DVT and GI prophylaxis. Further recommendations as per clinical course of the patient Objective - Vital Signs Vital signs: Vital Signs Temp 97.2 F L 08/31/22 07:36 Pulse 78 08/31/22 07:36 Resp 16 08/31/22 07:36 BP 165/78 08/31/22 07:36 Pulse Ox 95 08/31/22 07:36 FiO2 Intake & Output 08/30/22 08/31/22 08/31/22 18:59 06:59 18:59 Intake Total 970 480 Output Total 1895 1500 1000 Balance -925 -1500 -520 Intake: Oral 970 480 Output: Urine 1895 1500 1000 Other: Voiding Method Urinal Urinal Urinal - Labs CBC & Chem 7: 08/31/22 07:28 08/31/22 07:28 Labs: Abnormal Lab Results - Last 24 Hours (Table) 08/31/22 08/31/22 Range/Units 07:28 07:28 WBC 13.0 H (3.8-10.6) k/uL RBC 3.35 L (4.30-5.90) m/uL Hgb 10.0 L (13.0-17.5) gm/dL Hct 33.2 L (39.0-53.0) % MCHC 30.3 L (31.0-37.0) g/dL RDW 17.7 H (11.5-15.5) % Neutrophils # 10.3 H (1.3-7.7) k/uL Carbon Dioxide 31 H (22-30) mmol/L BUN 36 H (9-20) mg/dL Albumin 2.8 L (3.5-5.0) g/dL Microbiology - Last 24 Hours (Table) 08/27/22 07:15 Blood Culture - Preliminary Blood 08/27/22 07:00 Blood Culture - Preliminary Blood
--- NOTE | 2022-08-31 14:16 | P.PN ---
Subjective Progress Note Date: 08/31/22 Principal diagnosis: SOB At today's visit patient is resting comfortably in bed. She reports breathing has improved. Patient reports he was able to ambulate in the hallway but did experience oxygen desaturation. Home O2 eval has been ordered. He reports continued sputum production, no hemoptysis noted. Sputum is brownish in color. Talked with social work today regarding insurance assistance. They recommended patient to call [facility] to find a local oncologist within his network. Patient given number to [facility] for assistance with local referral. Objective - Vital Signs Vital signs: Vital Signs Temp 98.3 F 08/31/22 11:23 Pulse 72 08/31/22 11:23 Resp 18 08/31/22 11:23 BP 158/82 08/31/22 11:23 Pulse Ox 96 08/31/22 11:23 FiO2 Intake & Output 08/30/22 08/31/22 08/31/22 18:59 06:59 18:59 Intake Total 970 480 Output Total 1895 1500 1000 Balance -925 -1500 -520 Intake: Oral 970 480 Output: Urine 1895 1500 1000 Other: Voiding Method Urinal Urinal Urinal - Constitutional General appearance: Present: average body habitus, no acute distress - EENT Eyes: Present: anicteric sclerae, EOMI ENT: Present: hearing grossly normal - Respiratory Details: breathing even and unlabored - Cardiovascular Details: skin warm and dry - Integumentary Integumentary: Absent: cyanotic, rash - Neurologic Neurologic: Present: CNII-XII intact - Musculoskeletal Musculoskeletal: Present: strength equal bilaterally - Psychiatric Psychiatric: Present: A&O x's 3, appropriate affect, intact judgment & insight - Labs CBC & Chem 7: 08/31/22 07:28 08/31/22 07:28 Labs: Abnormal Lab Results - Last 24 Hours (Table) 08/31/22 08/31/22 Range/Units 07:28 07:28 WBC 13.0 H (3.8-10.6) k/uL RBC 3.35 L (4.30-5.90) m/uL Hgb 10.0 L (13.0-17.5) gm/dL Hct 33.2 L (39.0-53.0) % MCHC 30.3 L (31.0-37.0) g/dL RDW 17.7 H (11.5-15.5) % Neutrophils # 10.3 H (1.3-7.7) k/uL Carbon Dioxide 31 H (22-30) mmol/L BUN 36 H (9-20) mg/dL Albumin 2.8 L (3.5-5.0) g/dL Microbiology - Last 24 Hours (Table) 08/27/22 07:15 Blood Culture - Preliminary Blood 08/27/22 07:00 Blood Culture - Preliminary Blood Assessment and Plan (1) Pneumonia Current Visit: Yes Status: Acute Priority: High Code(s): J18.9 - PNEUMONIA, UNSPECIFIED ORGANISM SNOMED Code(s): 587927396 (2) Squamous cell lung cancer Current Visit: Yes Status: Acute Priority: High Code(s): C34.90 - MALIGN ANT NEOPLASM OF UNSP PART OF UNSP BRONCHUS OR LUNG SNOMED Code(s): 084652136 (3) Leg edema Current Visit: Yes Status: Acute Priority: High Code(s): R60.0 - LOCALIZED EDEMA SNOMED Code(s): 284777411 Plan: Edema: -Ongoing over the last couple months, has been treated with lasix with some imp rovement in the past, recently worsening causing frequent falls -Noted development of increasing dyspnea on exertion -Bilateral Dopplers of lower extremity negative for DVT. BNP elevated, 2890. Continues on lasix and aldactone. Compression dressings applied to BLE with improvement in edema. Discussed with patient to continue with compression dressings of lower extremities and to elevate legs when resting -Cardiology following Pneumonia: -CXR and CTA chest consistent with pneumonia. Started on IV abx. Completed rocephin today. Spoke with pulmonology today, no plan for oral abx upon dischar ge. Home O2 evaluation ordered -Sputum and blood cultures negative. -Pulmonology following Locally advanced/unresectable non-small cell lung cancer: -Treated with single agent pembrolizumab from February 2021 through March 2022 with noted disease progression at that time -Initiated carboplatin/gemcitabine on 04/27/2022 and completed cycle 4 on 07/06/2022 -Staging CT scans performed on 07/09/2022. CT CAP revealed partial positive treatment response with no acute findings. -No acute inventions for lung cancer standpoint at this time. Currently in observation with repeat scans scheduled for 10/26/22 -CTA chest upon admission unfortunately showed disease progression, revealing interval enlargement of spiculated mass involving the right upper lobe extending to the hilum. Measuring 5.8 x 5 cm, previously measured at 3.4 x 2.4 cm. Persistent peribronchial wall thickening and narrowing of the right main stem bronchus. Mucosal lesion in the bronchus is not excluded. Discussed CT findings with patient. -Due to recent insurance changes within our clinic, his insurance was no longer within network. Pt has been recommended to call his insurance for local oncologists that is within his network so he can establish care while awaiting insurance change. He reports he is actively working with Medicaid. SW was consulted during last admission to assist patient. SW consult placed for additional assistance so patient can establish outpatient care upon discharge, as CT has unfortunately shown disease progression and he will need reevaluation to discuss treatment options. Talked with social work today regarding insurance assistance. They recommended patient call [facility] to find a local oncologist within his network. Patient given number to [facility] for assistance with local referral. Instructed pt once he is able to change insurance coverage to call our clinic and he can resume care locally with us if he wants to. -Rad onc consulted for evaluation for RT of RUL mass causing narrowing of right main stem bronchus with potential mucosal lesion within the bronchus. Spoke with Dr. Shearer regarding case, and after review of imaging with radiology, patient is not a candidate for RT at this time. He feels that progression noted on CT in comparison to previous imaging may also have components of infectious etiology vs pneumonitis. Pt has not been on immunotherapy for 5 months, so pneumonitis is less likely, however, pt is currently on cortef daily for previously diagnosis of possible steroid insufficiency noted in previous hospital admission (follows with endocrine), and was also given IV solumedrol, which would both treat a underlying pneumonitis. Discussed this with pulmonology team. Patient has completed 4 days of rocephin. Recommend f/u with PCP/oncology for repeat CT in 2-3 weeks -Plan of care was discussed with patient
--- NOTE | 2022-08-31 15:09 | P.PN ---
Subjective Progress Note Date: 08/31/22 PROGRESS NOTE The patient is a 61-year-old male with a known history of CAD prior history of cardiomyopathy, hypertension, hyperlipidemia and history of lung cancer who presented with symptoms of progressive dyspnea. On presentation he had an episode of wide-complex tachycardia that could be related to nonsustained VT. He continues to have a cough, productive with hemoptysis. His computed tomography scan of the chest suggest progression of his malignancy. His echocardiogram showed worsening of his LV systolic function. He's feeling better today, continues to be dyspneic and coughing but better overall. He denies any chest discomfort, dizziness or palpitations. There is no further episodes of arrhythmia August 29: The patient continues to be dyspneic, mildly better. Continues to cough. He d enies any chest discomfort, dizziness or palpitations. He denies any nausea or vomiting. He continues to have peripheral edema. He is in sinus mechanism and hemodynamically stable. He continues to be on antibiotics. 08/30 Patient states he has been ambulating in the hallway quite a bit. With am bulation pulse ox dropped down to 88% with OXYGEN. Lower extremity edema significantly improved. He is on Lasix 40 mg bid oral BP has been elevated. 08/31 Patient states he continues have a cough with sputum production mostly just in the morning. He feels congested in his chest. He also states today that he walked in the hallway without oxygen his pulse ox dropped down to 85%. He does not have home O2 therapy. Repeat blood work reveals WBC 13, hemoglobin 10, platelet count 257. BUN 36 creatinine 1.21. Blood pressure readings have been elevated 165/78, heart rate in the 70s to 90s. PHYSICAL EXAMINATION: Blood pressure 152/79 heart rate 70-80s LUNGS: Clear to auscultation HEART: Regular rate and rhythm, S1, S2. No S3. Systolic ejection murmur ABDOMEN: Soft, nontender, no organomegaly EXTREMETIES: +1 edema IMPRESSION: 1. Progressive dyspnea with evidence of pneumonia and progression of lung cancer 2. History of cardiomyopathy with worsening of the LV function and CHF 3. History of CAD 4. Hypertension 5. Troponin elevation, no evidence to suggest acute coronary syndrome, representing type II event 6. History of hyperlipidemia PLAN: Continue current cardiac medications Increase Aldactone to 50 mg daily Treatment of his pneumonia and subsequent reevaluation of his lung cancer Depending on his progress further recommendations will be made. Nurse practitioner note has been reviewed, I agree with the documented findings and plan of care. Patient was seen and examined. Objective - Vital Signs Vital signs: Vital Signs Temp 98.3 F 08/31/22 11:23 Pulse 72 08/31/22 11:23 Resp 18 08/31/22 11:23 BP 158/82 08/31/22 11:23 Pulse Ox 96 08/31/22 11:23 FiO2 Intake & Output 08/30/22 08/31/22 08/31/22 18:59 06:59 18:59 Intake Total 970 480 Output Total 1895 1500 1000 Balance -925 -1500 -520 Intake: Oral 970 480 Output: Urine 1895 1500 1000 Other: Voiding Method Urinal Urinal Urinal - Labs CBC & Chem 7: 08/31/22 07:28 08/31/22 07:28 Labs: Abnormal Lab Results - Last 24 Hours (Table) 08/31/22 08/31/22 Range/Units 07:28 07:28 WBC 13.0 H (3.8-10.6) k/uL RBC 3.35 L (4.30-5.90) m/uL Hgb 10.0 L (13.0-17.5) gm/dL Hct 33.2 L (39.0-53.0) % MCHC 30.3 L (31.0-37.0) g/dL RDW 17.7 H (11.5-15.5) % Neutrophils # 10.3 H (1.3-7.7) k/uL Carbon Dioxide 31 H (22-30) mmol/L BUN 36 H (9-20) mg/dL Albumin 2.8 L (3.5-5.0) g/dL Microbiology - Last 24 Hours (Table) 08/27/22 07:15 Blood Culture - Preliminary Blood 08/27/22 07:00 Blood Culture - Preliminary Blood
[2022-09-01] MEDS ORDERED: HYDROCORTISONE 20 MG TAB PO SCH (06:21)
[2022-09-01] MEDS: HYDROcodone/APAP 10-325MG 1 EACH TAB PO SCH ×2 (07:03→12:56)
[2022-09-01 07:53] LABS: ALT 17 U/L (4-49); AST 25 U/L (17-59); African American GFR (CKD) 71 (>60 ml/min/1.73 sqM); Alkaline Phosphatase 56 U/L (38-126); Anion Gap 1 mmol/L; Blood Urea Nitrogen 32 mg/dL (9-20); Calcium 8.8 mg/dL (8.4-10.2); Carbon Dioxide 35 mmol/L (22-30); Chloride 103 mmol/L (98-107); Glucose 85 mg/dL (74-99); Non-African American GFR(CKD) 62 (>60 ml/min/1.73 sqM); Potassium 4.2 mmol/L (3.5-5.1); Sodium 139 mmol/L (137-145); Total Bilirubin 0.4 mg/dL (0.2-1.3); Total Protein 6.4 g/dL (6.3-8.2)
[2022-09-01 08:22] LABS: Anisocytosis Slight; Basophils % (A) 0 %; Eosinophils % (A) 0 %; HCT 33.5 % (39.0-53.0); HGB 10.2 gm/dL (13.0-17.5); Hypochromasia Marked; Lymphocytes # (A) 1.8 k/uL (1.0-4.8); Lymphocytes % (A) 23 %; MCH 30.2 pg (25.0-35.0); MCHC 30.6 g/dL (31.0-37.0); MCV 98.9 fL (80.0-100.0); Macrocytosis Slight; Mean Platelet Volume 8.8; Monocytes # (A) 0.6 k/uL (0-1.0); Monocytes % (A) 8 %; Neutrophils % (A) 66 %; Platelet Count 234 k/uL (150-450); Poikilocytosis Slight; RBC 3.38 m/uL (4.30-5.90); RDW 17.5 % (11.5-15.5); WBC 7.6 k/uL (3.8-10.6)
[2022-09-01] MEDS ORDERED: SPIRONOLACTONE 25 MG TAB PO SCH (09:00)
[2022-09-01] MEDS: METOPROLOL TARTRATE 50 MG TAB PO SCH (09:20)
[2022-09-01] MEDS: HYDROCORTISONE 10 MG TAB PO SCH (09:20)
[2022-09-01] MEDS: lisinopriL 20 MG TAB PO SCH (09:20)
[2022-09-01] MEDS: ASPIRIN 81 MG PO SCH (09:20)
[2022-09-01] MEDS: ATORVASTATIN 80 MG TAB PO SCH (09:20)
[2022-09-01] MEDS: DAPAGLIFLOZIN PROPANEDIOL 10 MG TABLET PO SCH (09:20)
[2022-09-01] MEDS: FUROSEMIDE 40 MG TAB PO SCH (09:20)
[2022-09-01 09:31] VITALS: PULSE 84; RESP 18; TEMP 98.5
[2022-09-01 09:55] VITALS: BMI 23.7
[2022-09-01] MEDS ORDERED: hydrALAZINE HCL 25 MG TAB PO SCH (11:45)
--- NOTE | 2022-09-01 12:47 | P.DS ---
Providers Date of admission: 08/27/22 08:28 Expected date of discharge: 09/01/22 Attending physician: Dionicio Laughlin MD Consults: 08/27/22 08:55 Consult Physician Urgent Consulting Provider: Anand Durbin Consult Reason/Comments: Pneumonia, COPD Do you want consulting provider notified?: Yes Consult Physician Urgent Consulting Provider: Robb Ardon Consult Reason/Comments: SVT, elevated troponin Do you want consulting provider notified?: Yes 08/28/22 18:00 Consult Physician Routine Consulting Provider: Juan Carlos Hoyos Consult Reason/Comments: lung cancer, pt known to service Do you want consulting provider notified?: Yes, Notify in am Primary care physician: Stated None Hospital Course: Discharge diagnoses; Nonsustained V. tach Acute hypoxic respiratory failure Bacterial pneumonia Cardiomyopathy EF of 35% Acute exacerbation of COPD History of lung cancer Hypertension hyperlipidemia Hospital course; patient is 61-year-old gentleman with past medical history significant for COPD, lung cancer presented to the ER because of shortness of breath. Patient stated that he woke up this morning with feeling of shortness of breath and palpitations. Denies any chest pain at that time. He initially called EMS when EMS arrived patient was saturating well on room air but he was placed on 2 L of oxygen for comfort. Patient was brought to the ER. Initial telemetry showed patient to be SVT. Repeat EKG showed patient to be in sinus rhythm Initial lab work done in the ER showed WBC 7.6, hemoglobin 10, platelet count 289, sodium 13, potassium 3.9, BUN 34, creatinine 1.11, troponin 0.041, proBNP, 2250, Chest x-ray done showed perihilar infiltrates and right upper lobe infiltrate correlate for pneumonia Patient was admitted to medicine service 08/28. Patient seen and examined. CT chest negative for PE, showed interval enlargement of the mass involving the right upper lobe extending into the hilum measuring 5.8 x 5 cm . Ultrasound lower extremities negative for DVT States he feels better. Swelling of legs is improved 08/29. Patient seen and examined. States swelling of legs is improved 08/30. Patient seen and examined. No acute issues overnight. States breathing is improving. Hematology oncology planned to talk with radiation oncology regarding radiation treatment 08/31. Patient seen and examined. 09/01. Patient seen and examined. Hematology oncology consulted social work as patient's insurance is no longer in network. Social work recommended patient call [facility] to find a local oncologist within his network. Patient given number to [facility] for assistance with local referral. Instructed pt once he is able to change insurance coverage to call our clinic and he can resume care locally with us if he wants to. -Rad onc consulted for evaluation for RT of RUL mass causing narrowing of right main stem bronchus with potential mucosal lesion within the bronchus. Hematology oncology Spoke with Dr. Shearer regarding case, and after review of imaging with radiology, patient is not a candidate for RT at this time. Pulmonology, hematology oncology cleared The patient for discharge. PHYSICAL EXAMINATION: GENERAL: The patient is alert and oriented x3, not in any acute distress. Well developed, well nourished. HEENT: Pupils are round and equally reacting to light. EOMI. No scleral icterus. No conjunctival pallor. Normocephalic, atraumatic. No pharyngeal erythema. No thyromegaly. CARDIOVASCULAR: S1 and S2 present. No murmurs, rubs, or gallops. PULMONARY: Chest is clear to auscultation, no wheezing or crackles. ABDOMEN: Soft, nontender, nondistended, normoactive bowel sounds. No palpable organomegaly. MUSCULOSKELETAL: No joint swelling or deformity. EXTREMITIES: No cyanosis, clubbing, or pedal edema. NEUROLOGICAL: Gross neurological examination did not reveal any focal deficits. SKIN: No rashes. Dictation was produced using [employer] dictation software. please excuse any grammatical, word or spelling errors. Patient Condition at Discharge: Stable Plan - Discharge Summary Discharge Rx Participant: No New Discharge Prescriptions: New Spironolactone [Aldactone] 50 mg PO DAILY #30 tab hydrALAZINE HCL [Apresoline] 25 mg PO TID #60 tab Ipratropium-Albuterol Nebulize [Duoneb 0.5 mg-3 mg/3 ml Soln] 3 ml INHALATION Q6HR PRN 30 Days #90 ml PRN Reason: Wheezing Dapagliflozin Propanediol [Farxiga] 10 mg PO DAILY #30 tab lisinopriL [Zestril] 20 mg PO BID #60 tab Metoprolol Tartrate [Lopressor] 50 mg PO BID #60 tab Continue Aspirin 81 mg PO DAILY #30 chew Ondansetron [Zofran] 4 mg PO Q6H PRN PRN Reason: Nausea HYDROcodone/APAP 10-325MG [Bethune 10-325] 1 tab PO QID Furosemide [Lasix] 40 mg PO BID@0900,1600 #60 tab Spiriva Respimat 1.25mcg/Actuation Mist 2 puff INHALATION RT-HS #0 Atorvastatin [Lipitor] 80 mg PO DAILY Hydrocortisone [Cortef] 20 mg PO DAILY@1600 Hydrocortisone [Cortef] 30 mg PO DAILY@0900 Discontinued lisinopriL [Zestril] 5 mg PO DAILY Metoprolol Tartrate [Lopressor] 25 mg PO BID Discharge Medication List Aspirin 81 mg PO DAILY #30 chew 03/05/17 [Rx] Atorvastatin [Lipitor] 80 mg PO DAILY 03/04/21 [History] HYDROcodone/APAP 10-325MG [Bethune 10-325] 1 tab PO QID 05/09/22 [History] Ondansetron [Zofran] 4 mg PO Q6H PRN 05/09/22 [History] Furosemide [Lasix] 40 mg PO BID@0900,1600 #60 tab 07/14/22 [Rx] Hydrocortisone [Cortef] 20 mg PO DAILY@1600 08/27/22 [History] Hydrocortisone [Cortef] 30 mg PO DAILY@0900 08/27/22 [History] Dapagliflozin Propanediol [Farxiga] 10 mg PO DAILY #30 tab 09/01/22 [Rx] Ipratropium-Albuterol Nebulize [Duoneb 0.5 mg-3 mg/3 ml Soln] 3 ml INHALATION Q6HR PRN 30 Days #90 ml 09/01/22 [Rx] Metoprolol Tartrate [Lopressor] 50 mg PO BID #60 tab 09/01/22 [Rx] Spiriva Respimat 1.25mcg/Actuation Mist 2 puff INHALATION RT-HS #0 09/01/22 [Rx] Spironolactone [Aldactone] 50 mg PO DAILY #30 tab 09/01/22 [Rx] hydrALAZINE HCL [Apresoline] 25 mg PO TID #60 tab 09/01/22 [Rx] lisinopriL [Zestril] 20 mg PO BID #60 tab 09/01/22 [Rx] Follow up Appointment(s)/Referral(s): None,Stated [Primary Care Provider] - 1-2 days Truman Kumar MD [STAFF PHYSICIAN] - 1 Week Juan Carlos Hoyos MD [STAFF PHYSICIAN] - 1 Week David Albarado DO [STAFF PHYSICIAN] - 1 Week Discharge/Stand Alone Forms: Who Do I Call?, Area PCPs Discharge Disposition: HOME SELF-CARE
[2022-09-01 13:20] VITALS: BP 160/92
--- NOTE | 2022-09-01 13:42 | P.PN ---
Subjective Progress Note Date: 09/01/22 PROGRESS NOTE The patient is a 61-year-old male with a known history of CAD prior history of cardiomyopathy, hypertension, hyperlipidemia and history of lung cancer who presented with symptoms of progressive dyspnea. On presentation he had an episode of wide-complex tachycardia that could be related to nonsustained VT. He continues to have a cough, productive with hemoptysis. His computed tomography scan of the chest suggest progression of his malignancy. His echocardiogram showed worsening of his LV systolic function. He's feeling better today, continues to be dyspneic and coughing but better overall. He denies any chest discomfort, dizziness or palpitations. There is no further episodes of arrhythmia August 29: The patient continues to be dyspneic, mildly better. Continues to cough. He d enies any chest discomfort, dizziness or palpitations. He denies any nausea or vomiting. He continues to have peripheral edema. He is in sinus mechanism and hemodynamically stable. He continues to be on antibiotics. 08/30 Patient states he has been ambulating in the hallway quite a bit. With am bulation pulse ox dropped down to 88% with OXYGEN. Lower extremity edema significantly improved. He is on Lasix 40 mg bid oral BP has been elevated. 08/31 Patient states he continues have a cough with sputum production mostly just in the morning. He feels congested in his chest. He also states today that he walked in the hallway without oxygen his pulse ox dropped down to 85%. He does not have home O2 therapy. Repeat blood work reveals WBC 13, hemoglobin 10, platelet count 257. BUN 36 creatinine 1.21. Blood pressure readings have been elevated 165/78, heart rate in the 70s to 90s. 09/01 Patient's breathing he states is okay. He still has a cough with brown sputum production. Lower extremity edema is improved with the addition of spironolactone yesterday. Blood pressure continues to be high and hydralazine will be added. Systolic pressure was running in the 140s and 150s. Repeat blood work reveals potassium 4.2, BUN 32 creatinine 1.26, hemoglobin 10.2. PHYSICAL EXAMINATION: Blood pressure 152/79 heart rate 70-80s LUNGS: Clear to auscultation HEART: Regular rate and rhythm, S1, S2. No S3. Systolic ejection murmur ABDOMEN: Soft, nontender, no organomegaly EXTREMETIES: +1 edema IMPRESSION: 1. Progressive dyspnea with evidence of pneumonia and progression of lung canc er 2. History of cardiomyopathy with worsening of the LV function and CHF 3. History of CAD 4. Hypertension 5. Troponin elevation, no evidence to suggest acute coronary syndrome, representing type II event 6. History of hyperlipidemia PLAN: Continue current cardiac medications Continue Aldactone to 50 mg daily Add hydralazine 25 mg 3 times daily Treatment of his pneumonia and subsequent reevaluation of his lung cancer Patient is cleared for discharge from cardiology may follow-up in the office in one to 2 weeks. Nurse practitioner note has been reviewed, I agree with the documented findings and plan of care. Patient was seen and examined. Objective - Vital Signs Vital signs: Vital Signs Temp 98.5 F 09/01/22 08:00 Pulse 84 09/01/22 08:00 Resp 18 09/01/22 08:00 BP 157/76 09/01/22 08:00 Pulse Ox 97 09/01/22 08:00 FiO2 Intake & Output 08/31/22 09/01/22 09/01/22 18:59 06:59 18:59 Intake Total 1200 360 Output Total 1425 1250 2250 Balance -225 -4890 1893 Weight 81.647 kg Intake: Oral 1200 360 Output: Urine 1425 1250 2250 Other: Voiding Method Urinal Urinal # Voids 2 2 - Labs CBC & Chem 7: 09/01/22 07:17 09/01/22 07:17 Labs: Abnormal Lab Results - Last 24 Hours (Table) 09/01/22 09/01/22 Range/Units 07:17 07:17 RBC 3.38 L (4.30-5.90) m/uL Hgb 10.2 L (13.0-17.5) gm/dL Hct 33.5 L (39.0-53.0) % MCHC 30.6 L (31.0-37.0) g/dL RDW 17.5 H (11.5-15.5) % Carbon Dioxide 35 H (22-30) mmol/L BUN 32 H (9-20) mg/dL Creatinine 1.26 H (0.66-1.25) mg/dL Albumin 3.0 L (3.5-5.0) g/dL
--- NOTE | 2022-09-01 13:48 | P.PN ---
Subjective Progress Note Date: 09/01/22 Principal diagnosis: Progression of metastatic squamous cell carcinoma and worsening shortness of breath, multifactorial This 61-year-old male patient with history of metastatic squamous cell carcinoma along with known history of coronary artery disease, history of hypertension, hyperlipidemia and previous history of congestion heart failure with seems to be quite optimized for now. The patient is currently receiving systemic chemotherapy. Note that at the time of his diagnosis, the patient was started on immunotherapy in his condition progressed and subsequently the patient was given a combination of carboplatin and Gemzar and the patient has completed his systemic chemotherapy and currently is being given a holiday off chemotherapeutic agents. Also recent CAT scan of the chest abdomen and pelvis that was done on 07/09/2022 showed radiographic response and the right suprahilar sedated mass has shrunken down to 3.6 cm from the previous measurement of 6.7 cm. The patient also had a slight improvement in the left infrahilar spiculated mass was measuring 3.4 compared to 4.2 cm in size. There was abnormal right hilar and subcarinal lymphadenopathy was again noted in the subcarinal lymph node was measuring 2.1 cm in size. Overall, the patient had some partial positive treatment response. The patient came into the emergency department because of acute shortness of breath and palpitations. He also was having some limited hemoptysis/bloody mucoid sputum that he was coughing at home. He came into the emergency and the patient was found to have SVT with a rapid ventricular response and a heart rate was above 200. He subsequently converted spontaneously to sinus rhythm. Currently is in normal sinus rhythm. Afebrile. Denies having any chest pain. Note that his cardiac catheterization from 2079 showed a patent stent to the RCA and proximal OM1. His echocardiogram from June 2022 showed an ejection fraction of 55-60% with moderate pulmonary hypertension. The patient's repeat chest x-ray the emergency department showed a right upper lobe opacity and a left infrahilar opacity in addition to a new area of consolidation in the left midlung area. Based on that, I recommended a CAT scan of the chest and this was done using the CT angiogram protocol. Unfortunately, there was interval enlargement of the sedated mass in the right upper lobe and this was currently measuring 5.8 x 5 cm in size and there was persistent peribronchial wall thickening and narrowing of the right mainstem bronchus. There is also interval development of patchy bilateral airspace disease/consolidation suspicious for pneumonia. There was stable pathologic mediastinal and hilar lymphadenopathy. The left infrahilar mass is also increased in size and there is also an area of left lower lobe atelectasis and there is development of a small right-sided pleural effusion. No evidence of any pulmonary embolism. He did complain of increased lower extremity edema and based on that the patient was given a Doppler of the lower extremity that showed no evidence of any DVTs. The white cell count of 7.6 with hemoglobin of 10, BUN is 34 with a creatinine of 1.1 and a sodium level is 138. Normal LFTs. Troponins are 0.04, 0.04 and 0 point 06 respectively. ProBNP level was 2250. Influenza, Covid 19 and RSV were all negative. Normal cognition profile. 08/28/2022, the patient is slightly better compared to yesterday, the patient is coughing out copious amounts of thick purulent sputum and the patient is currently on accommodation of Rocephin and Zithromax. Cultures were sent and that is also still pending for now. No fever. No chills. CAT scan of the chest was reviewed and I commented on the findings. He is on 3 L of oxygen by nasal cannula. 08/29/2022, the patient is still coughing up copious amounts of purulent blister secretions. Gram stain was noted. The fungal culture still pending for now. Remains on antibiotics with Rocephin and Zithromax. The patient will be also given IV Solu-Medrol today the patient is noted to be bronchospastic and wheezy. No other new complaints otherwise for now. The white cell count at 6.7 with a hemoglobin of 9.9. BUN is at 30 with a creatinine of 1.2. ProBNP level is 2890. Cardiology is also seeing the patient with us. The patient is on 3 L of oxygen by nasal cannula. The patient has progression in his metastatic squamous cell carcinoma of the lung as stated earlier. The patient is seen today 08/30/2022 in follow-up on the selective care unit. He is currently sitting up in bed. Awake and alert in no acute distress. Maintaining good O2 saturations in the 90s on 3 L/m per nasal cannula. He is afebrile. Hemodynamically stable. Chest x-ray reveals similar multifocal airspace opacities. No evidence of pneumothorax or pleural effusion. Blood cultures reveal no growth. Sputum culture revealed no growth. White count 6.7. Hemoglobin 9.9. Platelets 283. Sodium 135. Potassium 4.4. Bicarb 25. BUN 34. Creatinine 1.15. Glucose 208. He is currently on ceftriaxone. Remains on oral diuretics. Patient was reevaluated today on 08/31/2022, basically about the same, patient is yet to be seen by radiation oncology regarding his progression of squamous cell carcinoma and whether the patient may benefit from radiation to his right upper lobe/right hilar mass. No further episodes of hemoptysis, patient is on 1 L nasal cannula with O2 saturation of 96% WBC count is 13 hemoglobin is 10 electrolytes are normal renal profile is normal except for creatinine up to 1.21. Sputum and blood cultures have been negative so far. I believe the patient could be considered for discharge planning after evaluation by radiation oncology. Reevaluated today on 09/01/2022, patient is doing fairly well, basically about the same, I have cleared the patient for discharge, however he has to be cleared by other consultants. Overall prognosis remains poor, I believe there is progression of his squamous cell lung cancer with metastasis. Objective - Vital Signs Vital signs: Vital Signs Temp 98.5 F 09/01/22 08:00 Pulse 84 09/01/22 08:00 Resp 18 09/01/22 12:00 BP 160/92 09/01/22 12:00 Pulse Ox 94 L 09/01/22 12:10 FiO2 Intake & Output 08/31/22 09/01/22 09/01/22 18:59 06:59 18:59 Intake Total 1200 360 Output Total 1425 1250 2250 Balance -225 -1250 -1890 Weight 81.647 kg Intake: Oral 1200 360 Output: Urine 1425 1250 2250 Other: Voiding Method Urinal Urinal # Voids 2 2 - Exam Physical Exam :revealed 61-year-old white male in no distress. Very pleasant. head: Atraumatic, normocephalic. HEENT:[Neck is supple.] [No neck masses.] [No thyromegaly.] [No JVD.] Chest: scattered rhonchi on forced expiratory maneuver otherwise unremarkable. Cardiac Exam: [Normal S1 and S2, no S3 gallop, no murmur.] Abdomen: [Soft, nontender, no megaly, no rebound, no guarding, normal bowel sounds.] Extremities: [No clubbing, no edema, no cyanosis.] Neurological Exam: [No focal neurologic deficit. Psychiatric: Normal mood affect and normal status exam. Skin: No rashes.] - Labs CBC & Chem 7: 09/01/22 07:17 09/01/22 07:17 Labs: Abnormal Lab Results - Last 24 Hours (Table) 09/01/22 09/01/22 Range/Units 07:17 07:17 RBC 3.38 L (4.30-5.90) m/uL Hgb 10.2 L (13.0-17.5) gm/dL Hct 33.5 L (39.0-53.0) % MCHC 30.6 L (31.0-37.0) g/dL RDW 17.5 H (11.5-15.5) % Carbon Dioxide 35 H (22-30) mmol/L BUN 32 H (9-20) mg/dL Creatinine 1.26 H (0.66-1.25) mg/dL Albumin 3.0 L (3.5-5.0) g/dL Microbiology - Last 24 Hours (Table) 08/27/22 07:15 Blood Culture - Final Blood 08/27/22 07:00 Blood Culture - Final Blood Assessment and Plan Assessment: Impression: Metastatic squamous cell carcinoma of the lung, completed systemic chemotherapy utilizing a combination of carboplatinum and gemcitabine. Suspect progression of his squamous cell carcinoma, possible pneumonia but clinically it is doubtful. Acute shortness of breath, related to SVT, recovered and the patient is back to normal sinus rhythm SVT, preserved LV function based on previous echocardiograms along with known history of coronary artery disease and some limited troponin leak, failure of any chest pain, converted into normal sinus rhythm Hemoptysis related to his underlying non-small cell lung cancer/progression of his squamous cell carcinoma Coronary artery disease with previous stenting of the RCA and proximal OM1 History of ischemic cardiacmyopathy, recovered left ventricular ejection fraction Hypertension Hyperlipidemia Former smoker Lower extremity edema, no evidence of any DVT Recommendation: Continue present supportive care measures we'll clear the patient for discharge home on bronchodilators, steroids, prednisone burst and taper, Follow-up on outpatient basis with his oncologist and his laborer/grade check. Overall long-term prognosis is extremely poor and guarded. Time with Patient: Less than 30
== END 2022-09-01 17:02 | disposition home or self-care (01) | DRG 201 ==
LOC: EC 06:39 → 3SCARD 08:28
PROVIDERS: ADMIT Internal Medicine; ATTEND Internal Medicine
DX: I47.20 Ventricular tachycardia, unspecified (principal); J96.01 Acute respiratory failure with hypoxia; I50.23 Acute on chronic systolic (congestive) heart failure; I21.A1 Myocardial infarction type 2; C79.9 Secondary malignant neoplasm of unspecified site; J15.9 Unspecified bacterial pneumonia; I27.20 Pulmonary hypertension, unspecified; I11.0 Hypertensive heart disease with heart failure; J44.1 Chronic obstructive pulmonary disease with (acute) exacerbation; J44.0 Chronic obstructive pulmonary disease with (acute) lower respiratory infection; C34.81 Malignant neoplasm of overlapping sites of right bronchus and lung; Z20.822 Contact with and (suspected) exposure to COVID-19; R04.2 Hemoptysis; J98.11 Atelectasis; D63.0 Anemia in neoplastic disease; I25.5 Ischemic cardiomyopathy; I08.1 Rheumatic disorders of both mitral and tricuspid valves; I25.10 Atherosclerotic heart disease of native coronary artery without angina pectoris; E78.5 Hyperlipidemia, unspecified; I25.2 Old myocardial infarction; R59.0 Localized enlarged lymph nodes; R29.6 Repeated falls; Z79.82 Long term (current) use of aspirin; Z79.52 Long term (current) use of systemic steroids; Z79.899 Other long term (current) drug therapy; Z87.891 Personal history of nicotine dependence; Z91.81 History of falling; Z95.5 Presence of coronary angioplasty implant and graft; Z86.14 Personal history of Methicillin resistant Staphylococcus aureus infection; Z92.21 Personal history of antineoplastic chemotherapy; Z59.01 Sheltered homelessness; Z59.6 Low income; Z88.0 Allergy status to penicillin; Z82.49 Family history of ischemic heart disease and other diseases of the circulatory system
CPT/HCPCS: 36415; 71045; 71046; 71275; 80048; 80053; 83605; 83735; 83880; 84145; 84484; 85025; 85027; 85610; 85730; 86140; 87040; 87070; 87205; 87449; 87636; 93005; 93308; 93970; 94640; 94760; 96365; 96366; 96367; 99285

== ENCOUNTER → 2022-10-12 | Outpatient (CLI) | payer OTHER ==
[2022-10-12 10:31] LABS: African American GFR (CKD) 62 (>60 ml/min/1.73 sqM); Blood Urea Nitrogen 36 mg/dL (9-20); Non-African American GFR(CKD) 54 (>60 ml/min/1.73 sqM)
--- NOTE | 2022-10-12 15:04 | CT ---
EXAMINATION TYPE: CT ChestAbdPelvis w con CT DLP: 809.1 mGycm, Automated exposure control for dose reduction was used. DATE OF EXAM: 10/12/2022 11:52 AM COMPARISON: Pet/CT 03/05/2021, CT chest abdomen pelvis 08/27/2022 most recent. CLINICAL INDICATION:Male, 61 years old with history of C34.12, f/u lung ca Technique: Multiple axial images of the chest, abdomen, and pelvis were obtained. Two-dimensional cor onal and sagittal reconstructions were obtained. Contrast used:80cc of Isovue 300 with IV Contrast, Oral contrast used: with Oral Contrast Findings: CHEST: LUNGS/ PLEURA: Scattered groundglass opacities are seen throughout the lungs. These have improved compared to 023. Interval decrease in pleural effusions which are essentially resolved. Decrease in right upper lung masslike consolidation with spiculated borders measuring 2.7 x 1.5 x 1.9 cm.. There is an acute infectious/ventricular process superimposed on the evaluation on prior which limits evaluation. Comparing to 07/09/2022 there is more central consolidation compared to prior. Mild emphysema changes are seen throughout the lung. AIRWAY: Patent and unremarkable. HEART: Size within normal limits. r MEDIASTINUM: There remains soft tissue fullness around the pulmonary ion which have decreased from p rior PET on 03/05/2021 and on prior 08/27/2022. VASCULATURE: No aortic aneurysm. MUSCULOSKELETAL: No acute osseous abnormalities. SOFT TISSUES/LYMPH NODES: Unremarkable. LOWER NECK: No significant findings. ABDOMEN: ABDOMEN LIVER: Unremarkable GALLBLADDER AND BILE DUCTS: Unremarkable. PANCREAS: Unremarkable. SPLEEN: Unremarkable. ADRENAL GLANDS: Unremarkable. KIDNEYS AND URETERS: No evidence of hydronephrosis or renal calculus. The ureters are unremarkable. PELVIS BLADDER: Unremarkable REPRODUCTIVE: Unremarkable. ABDOMEN & PELVIS STOMACH AND BOWEL: No evidence of bowel obstruction. Moderate amount stool throughout the colon. PERITONEUM: No evidence of pneumoperitoneum or free fluid. VASCULATURE: Mild atherosclerotic calcifications are present throughout the abdominal aorta and its b ranches. MUSCULOSKELETAL: No acute osseous abnormalities. Mild disc degeneration changes are present throughou t the thoracolumbar spine. LYMPH NODES: No gross evidence for lymphadenopathy. SOFT TISSUE/ABDOMINAL WALL: Unremarkable IMPRESSION: 1. Interval improvement of lung airspace opacities seen on prior. There is resolution of prior pleur al effusions. Scattered groundglass opacities remain which could represent atypical pneumonia versus sequela prior infection. 2. The remaining soft tissue subtle fullness around the bilateral pulmonary ion as well as right up per lung somewhat spiculated masslike consolidation which appears to be more solid on today's exam ivy ggesting scarring versus persistent disease. Follow-up PET/CT may be of benefit to evaluate metabolic activity. 3. No evidence for suspicious lymphadenopathy within the abdomen or pelvis..
== END | disposition home or self-care (01) ==
LOC: RADCTMAIN 09:40
PROVIDERS: ATTEND Internal Medicine Hematology & Oncology
DX: C34.12 Malignant neoplasm of upper lobe, left bronchus or lung (principal); R91.8 Other nonspecific abnormal finding of lung field
CPT/HCPCS: 82565; 84520; 71260; 74177; 36415; Q9967

== ENCOUNTER → 2023-01-11 | Outpatient (CLI) | payer OTHER ==
[2023-01-11 10:41] LABS: African American GFR (CKD) 81 (>60 ml/min/1.73 sqM); Blood Urea Nitrogen 32 mg/dL (9-20); Non-African American GFR(CKD) 70 (>60 ml/min/1.73 sqM)
--- NOTE | 2023-01-11 12:35 | CT ---
EXAMINATION TYPE: CT ChestAbdPelvis w con DATE OF EXAM: 01/11/2023 COMPARISON: 10/12/2022 HISTORY: f/u lung ca CT DLP: 788.6 mGycm CONTRAST: CT scan of the chest, abdomen and pelvis is performed with Oral Contrast and with IV Contrast, patien t injected with 100 mL of Isovue 300. CT Chest: LUNGS: Left infrahilar mass persists and measures 3.9 x 3.0 cm versus 4.5 x 3.1 cm previously. Right suprahilar spiculated mass has enlarged in size and measures 4.0 x 3.1 cm versus prior measurement of 3.0 x 1.8 cm. Peripheral upper lobe nodular densities have increased and may reflect small metastati c nodules. Improved aeration right upper lobe anteriorly as well as patchy infiltrate seen previously left lower lobe has resolved. No additional nodules or masses seen. Narrowing right upper lobe bronc hus. MEDIASTINUM/HILUM: Low right paratracheal adenopathy has increased in size measures 1.7 cm versus 1. 1 cm previously. Subcarinal adenopathy noted currently measuring about 1.9 cm versus 1.5 cm. Left hil ar adenopathy of 1.2 cm with difficult comparison on prior study. Right hilar lymph nodes are noted m easuring up to 1.1 cm unchanged from prior study. OTHER: No significant abnormality. CONTRAST CT ABDOMEN AND PELVIS FINDINGS: LIVER/GB: No calcified gallstones. No space occupying hepatic lesion. Biliary tree is of normal ca liber. PANCREAS: No inflammation. No distinct mass. SPLEEN: No splenic enlargement. No lesion seen. ADRENALS: No nodule. No thickening. KIDNEYS/BLADDER: No hydronephrosis. No nephrolithiasis. No disctinct renal mass. BOWEL: Normal appendix. Normal bowel caliber. No inflammation. GENITAL ORGANS: No gross abnormality. LYMPH NODES: No greater than 1cm abdominal or pelvic lymph nodes are appreciated. AORTA: No significant abnormality. OSSEOUS STRUCTURES: No significant abnormality is seen. OTHER: No significant additional abnormality is seen. IMPRESSION: 1. Enlarging right suprahilar mass with peripheral nodularity suggesting metastatic lesions. 2. Left infrahilar mass is slightly smaller in size although does persist. 3. Airspace infiltrates seen previously have improved considerably. 4. Mild increase in mediastinal and hilar adenopathy.
== END | disposition home or self-care (01) ==
LOC: RADCTMAIN 09:42
PROVIDERS: ATTEND Internal Medicine Hematology & Oncology
DX: C34.12 Malignant neoplasm of upper lobe, left bronchus or lung (principal); J44.9 Chronic obstructive pulmonary disease, unspecified; I10 Essential (primary) hypertension; E78.5 Hyperlipidemia, unspecified; R91.8 Other nonspecific abnormal finding of lung field; R59.0 Localized enlarged lymph nodes
CPT/HCPCS: 82565; 84520; 71260; 74177; 36415; Q9967

== ENCOUNTER → 2023-01-19 | Outpatient (CLI) | payer OTHER ==
--- NOTE | 2023-01-19 15:04 | MR ---
EXAMINATION TYPE: MR brain wo/w con DATE OF EXAM: 01/19/2023 COMPARISON: 02/27/2021 HISTORY: Lung cancer, head pain right side CONTRAST: Performed utilizing 8 mL intravenous Gadavist gadolinium contrast. TECHNIQUE: Multiplanar, multiecho imaging on a 3.0 Luanne magnet is performed through the brain. Stud y is performed within 24 hours of arrival to the hospital. The craniovertebral junction is normal. The pituitary is normal. Diffusion-weighted imaging is performed. No abnormal hyperintensity is present to suggest an acute i ntracranial infarct or acute ischemic change. There are multiple scattered punctate appearing white matter changes within the deep white matter. Ventricles and sulci are appropriate for the patient age. Following contrast administration, no abnormal enhancement is evident. IMPRESSION: 1. No suspicious changes suggest metastatic. 2. Multiple stable punctate deep white matter changes, likely chronic white matter ischemic change.
== END | disposition home or self-care (01) ==
LOC: RADMRIMAIN 14:02
PROVIDERS: ATTEND Internal Medicine Hematology & Oncology
DX: G93.89 Other specified disorders of brain (principal); C34.12 Malignant neoplasm of upper lobe, left bronchus or lung
CPT/HCPCS: 70553; A9585

== ENCOUNTER → 2023-03-31 | Outpatient (CLI) | payer OTHER ==
[2023-03-31 11:52] LABS: African American GFR (CKD) >90 (>60 ml/min/1.73 sqM); Blood Urea Nitrogen 21 mg/dL (9-20); Non-African American GFR(CKD) >90 (>60 ml/min/1.73 sqM)
--- NOTE | 2023-03-31 13:31 | CT ---
EXAMINATION: CT CHEST, ABDOMEN AND PELVIS WITH IV CONTRAST DATE OF EXAMINATION: 01/11/2023. COMPARISON: None available. INDICATION: Lung cancer follow-up. PROCEDURE: Axial CT of the chest, abdomen and pelvis was performed following the intravenous adminis tration of 100 ml Isovue 300. Coronal and sagittal reformats were performed. CT dose lowering techni ques were used, to include: automated exposure control, adjustment for patient size, and/or use of it erative reconstruction. FINDINGS: CHEST: Mediastinum and Dai: Prominent bilateral hilar lymph nodes and soft tissue density is less prominent than when seen on the previous examination. The overall thickness in the posterior aspect of the lef t hilum currently measures up to 1.8 cm and previously 2.6 cm. In thickness in the right suprahilar r egion currently measures approximately 1.7 cm and previously measured 2.4 cm. Pleural and Pericardial spaces: There are no pleural or pericardial effusions. Cardiovascular: There is mild vascular calcification within the thoracic aorta without evidence of an eurysmal dilation or dissection. Pulmonary Artery: There are no central pulmonary arterial filling defects. Lung Parenchyma and Airways: Prominent soft tissue density and scarring within the right upper lobe a nd suprahilar region is improved since the previous evaluation as described above. There are no new o r enlarging nodules identified. There is some mild upper lobe predominant centrilobular emphysema. ABDOMEN: Liver and Biliary system: Normal. Adrenal glands: Normal. Kidneys and ureters: Normal. Spleen: Normal. Pancreas: Normal. Gallbladder: Normal. Lymph nodes, Peritoneum and mesentery: There is no mesenteric or retroperitoneal lymphadenopathy. Gastrointestinal tract: There are no dilated loops of bowel or free intraperitoneal air. . The appe ndix is normal. Aorta/IVC: Aorta normal. No aortic aneurysm or dissection. IVC normal. Abdominal wall: Normal. PELVIS: Fluid: There is no free fluid in the pelvis. Lymph Nodes: There is no pelvic or inguinal lymphadenopathy.. Urinary bladder: Normal. BONES: There are no osseous destructive lesions.. ADDITIONAL SIGNIFICANT FINDINGS: None. IMPRESSION: 1. Improvement in the bilateral hilar adenopathy and right suprahilar mass when compared to the previ ous evaluation. 2. Mild emphysema. 3. No evidence of metastatic disease otherwise seen within the abdomen or pelvis.
== END | disposition home or self-care (01) ==
LOC: RADCTMAIN 11:03
PROVIDERS: ATTEND Internal Medicine Hematology & Oncology
DX: C34.12 Malignant neoplasm of upper lobe, left bronchus or lung (principal); J43.9 Emphysema, unspecified; J44.9 Chronic obstructive pulmonary disease, unspecified; I10 Essential (primary) hypertension; R59.0 Localized enlarged lymph nodes
CPT/HCPCS: 82565; 84520; 71260; 74177; Q9967

== ENCOUNTER → 2023-06-01 | Outpatient (CLI) | payer OTHER ==
[2023-06-01 11:20] LABS: African American GFR (CKD) >90 (>60 ml/min/1.73 sqM); Blood Urea Nitrogen 26 mg/dL (9-20); Non-African American GFR(CKD) 84 (>60 ml/min/1.73 sqM)
--- NOTE | 2023-06-01 13:22 | CT ---
EXAMINATION TYPE: CT ChestAbdPelvis w con DATE OF EXAM: 06/01/2023 COMPARISON: 03/31/2023 and 01/03/2023 HISTORY: 62-year-old male C34.12, f.u lung ca obs for mets TECHNIQUE: Contiguous axial scanning of the chest, abdomen, and pelvis performed with IV Contrast, pa tient injected with 100ml mL of Isovue 300. Delayed images through the kidneys were obtained. Coronal /sagittal reconstructions performed. CT DLP: 763 mGycm Automated exposure control for dose reduction was used. FINDINGS: CHEST: Are normal size with trace anterior pericardial effusion measuring 6 mm thick. Extensive three-vessel coronary artery calcifications are present. Conventional arch vessel branching anatomy with normal caliber to the aorta. Small 7 mm upper left paratracheal nodes are larger from prior. Precarinal and subcarinal soft tissue is thicker at 2.5 cm versus 2.1 cm, previously. Contiguous soft tissue thickening extending along the right upper lobe bronchus to the right suprahilar region shows slight interval increase as well.. There is extensive new opacification throughout the superior segment left lower lobe with new areas o f associated air cavitation and fluid favored to represent necrotizing pneumonia. The patient's poste rior left infrahilar mass is not well delineated from this abnormal opacification but may be slightly larger at 3.3 cm versus 2.1 cm, previously. Similar irregular narrowing of the left lower lobe bronc hus. Background of moderate emphysema. No pleural effusion. ABDOMEN: No focal liver lesion or biliary ductal dilatation. Portal venous system is patent. Gallbladder, adrenal glands, kidneys, spleen, and pancreas within normal limits. No dilated small bowel, free fluid, or free air. No mesenteric or retroperitoneal lymphadenopathy. Scattered mild to moderate stool. There is similar circumferential wall thickening involving thee sigmoid colon, axial image 108. No pe ricolonic inflammatory change seen. PELVIS Bladder is urine distended. Prostate gland measures 4.1 cm wide. No abnormal fluid collection in the pelvis or pelvic lymphadenopathy. BONES: Moderate spondylotic change throughout the lumbar spine. No osseous destructive process. Old healed f racture deformity of the sternal body. IMPRESSION: 1. SUSPECT SUBTLE DISEASE PROGRESSION GIVEN SLIGHTLY INCREASING PRECARINAL AND SUBCARINAL SOFT TISSUE . THE CONTIGUOUS SOFT TISSUE EXTENDING ALONG THE RIGHT UPPER LOBE BRONCHUS AND RIGHT SUPRAHILAR REGIO N IS SLIGHTLY THICKER WELL. 2. EXTENSIVE NEW OPACIFICATION SUPERIOR SEGMENT LEFT LOWER LOBE MEASURING UP TO 7.5 CM. THERE ARE ARE OF AIR CAVITATION AND FLUID HERE. CORRELATE FOR NECROTIZING OR CAVITARY PNEUMONIA. POSSIBLE EARLY 3.8 CM PULMONARY ABSCESS WITHIN THIS REGION. 3. THE PATIENT'S KNOWN SITE OF POSTERIOR LEFT INFRAHILAR DISEASE IS NOT WELL DELINEATED DUE TO THE NEW OPACIFICATION MENTIONED ABOVE. IT MAY BE LARGER AT 3.3 CM VERSUS 2.1 CM, PREVIOUSLY. 4. SOME CIRCUMFERENTIAL WALL THICKENING INVOLVING THE SIGMOID COLON. CORRELATE FOR A MILD TO MODERATE NONSPECIFIC INFECTIOUS OR INFLAMMATORY COLITIS.
== END | disposition home or self-care (01) ==
LOC: RADCTMAIN 10:16
PROVIDERS: ATTEND Internal Medicine Hematology & Oncology
DX: C34.12 Malignant neoplasm of upper lobe, left bronchus or lung (principal); J44.9 Chronic obstructive pulmonary disease, unspecified; K31.89 Other diseases of stomach and duodenum; R06.02 Shortness of breath; I10 Essential (primary) hypertension
CPT/HCPCS: 82565; 84520; 71260; 74177; 36415; Q9967

== ENCOUNTER 2023-06-06 14:48 | Inpatient (IN) | payer OTHER ==
[2023-06-06] MEDS ORDERED: VANCOMYCIN IV PER PHARMACY 1 EACH MISC MISCELLANE PRN (16:22)
[2023-06-06 16:58] LABS: Anisocytosis Slight; HCT 33.8 % (39.0-53.0); HGB 10.6 gm/dL (13.0-17.5); Hypochromasia Moderate; MCHC 31.4 g/dL (31.0-37.0); MCV 89.1 fL (80.0-100.0); Mean Platelet Volume 8.5; Platelet Count 362 k/uL (150-450); RBC 3.79 m/uL (4.30-5.90); RDW 19.6 % (11.5-15.5); WBC 32.2 k/uL (3.8-10.6)
[2023-06-06] MEDS: SODIUM CHLORIDE 0.9% 500 ML 500 ML IV SCH (17:00)
[2023-06-06 17:11] LABS: ALT 16 U/L (4-49); AST 26 U/L (17-59); African American GFR (CKD) 73 (>60 ml/min/1.73 sqM); Albumin 3.9 g/dL (3.5-5.0); Alkaline Phosphatase 202 U/L (38-126); Anion Gap 14 mmol/L; Blood Urea Nitrogen 26 mg/dL (9-20); Calcium 9.4 mg/dL (8.4-10.2); Carbon Dioxide 21 mmol/L (22-30); Chloride 96 mmol/L (98-107); Glucose 85 mg/dL (74-99); Non-African American GFR(CKD) 63 (>60 ml/min/1.73 sqM); Potassium 4.5 mmol/L (3.5-5.1); Sodium 131 mmol/L (137-145); Total Bilirubin 0.5 mg/dL (0.2-1.3); Total Protein 7.3 g/dL (6.3-8.2)
[2023-06-06 17:13] LABS: INR 0.9 (<1.2); Partial Thromboplastin Time 26.7 sec (22.0-30.0); Prothrombin Time 10.2 sec (10.0-12.5)
[2023-06-06] MEDS: LEVOFLOXACIN 750MG-D5W PMX 750 MG in DEXTROSE/WATER 1 150ML.BAG IVPB STA (18:06)
[2023-06-06 18:20] LABS: Lymphocytes # (M) 2.58 k/uL (1.0-4.8); Monocytes # (M) 2.25 k/uL (0-1.0); Neutrophils # (M) 27.37 k/uL (1.3-7.7); Neutrophils % (M) 85 %; Nucleated Red Blood Cells 0 /100 WBC (0-0); Total Cells Counted 100
[2023-06-06] MEDS: VANCOMYCIN 1,250 MG in SODIUM CHLORIDE 0.9% 250 ML IVPB STA (19:50)
--- NOTE | 2023-06-06 20:08 | ED ---
General Adult HPI - General Chief complaint: Recheck/Abnormal Lab/Rx Stated complaint: Lung infection Time Seen by Provider: 06/06/23 15:30 Source: patient, RN notes reviewed, old records reviewed Mode of arrival: ambulatory Limitations: no limitations - History of Present Illness Initial comments: This is a 62-year-old male presents to the emergency department stating has been coughing for the last 3 weeks and is coughing up quite a bit of sputum. Patient states he has a history of lung cancer. Patient states he went and saw his occup ther and the occup ther that he had an abscess in his lungs and he wanted the patient to come to the emergency department be admitted. Patient denies any chest pain. Patient denies any abdominal pain patient has nausea vomiting diarrhea. Patient denies a headache or numbness or weakness - Related Data Home Medications Medication Instructions Recorded Confirmed Atorvastatin [Lipitor] 80 mg PO HS 03/04/21 06/06/23 Ondansetron [Zofran] 4 mg PO Q6H PRN 05/09/22 06/06/23 Albuterol Inhaler [Ventolin Hfa 1 - 2 puff INHALATION RT-Q6H PRN 06/06/23 06/06/23 Inhaler] Cholecalciferol (Vitamin D3) 50 mcg PO DAILY 06/06/23 06/06/23 [Vitamin D3 (50 Mcg = 2000 Iu)] Hydrocodone/Acetaminophen 1 tab PO QID PRN 06/06/23 06/06/23 [Hydrocodone/Acetaminophen 10-300 mg] Metoprolol Tartrate [Lopressor] 25 mg PO BID 06/06/23 06/06/23 Omeprazole 40 mg PO DAILY PRN 06/06/23 06/06/23 Prochlorperazine Maleate 10 mg PO Q6H PRN 06/06/23 06/06/23 Spironolactone [Aldactone] 50 mg PO DAILY 06/06/23 06/06/23 Trifluridine 1% Ophth Soln 1 drop BOTH EYES Q2H 06/06/23 06/06/23 [Viroptic 1% Ophth Soln] dexAMETHasone [Decadron] 8 mg PO BID PRN 06/06/23 06/06/23 valACYclovir HCL [Valtrex] 500 mg PO TID 06/06/23 06/06/23 Previous Rx's Medication Instructions Recorded Dapagliflozin Propanediol [Farxiga] 10 mg PO DAILY #30 tab 09/01/22 Spiriva Respimat 1.25mcg/Actuation 2 puff INHALATION RT-HS #0 09/01/22 Mist Allergies Allergy/AdvReac Type Severity Reaction Status Date / Time Penicillins Allergy Dyspnea & Verified 06/06/23 17:18 Hives all over Review of Systems ROS Statement: Those systems with pertinent positive or pertinent negative responses have been documented in the HPI. ROS Other: All systems not noted in ROS Statement are negative. Past Medical History Past Medical History: Coronary Artery Disease (CAD), Cancer, Chest Pain / Angina , COPD, Hyperlipidemia, Hypertension, Myocardial Infarction ([place]) Additional Past Medical History / Comment(s): SVT with chest pain/palpitations- chemically converted. Last Myocardial Infarction Date:: 2017 History of Any Multi-Drug Resistant Organisms: MRSA Date of last positivie culture/infection: 12/23/2013 MDRO Source:: Face Past Surgical History: Heart Catheterization With Stent Additional Past Surgical History / Comment(s): I&D of R inframandibular abscess. 3 cardiac stents. Past Anesthesia/Blood Transfusion Reactions: No Reported Reaction Date of Last Stent Placement:: 2017 Past Psychological History: No Psychological Hx Reported Smoking Status: Former smoker Past Alcohol Use History: None Reported Past Drug Use History: Marijuana - Past Family History Father Family Medical History: No Reported History Additional Family Medical History / Comment(s): Father of "natural causes" at the age of 79yrs. Mother Family Medical History: COPD, Coronary Artery Disease (CAD) Additional Family Medical History / Comment(s): Mother is 76yrs old. She has had several MIs, 6 cardiac stents and a 4 vessel CABG. General Exam - General Exam Comments Initial Comments: GENERAL: Patient is well-developed and well-nourished. Patient is nontoxic and well- hydrated and is in mild distress. ENT: Neck is soft and supple. No significant lymphadenopathy is noted. Oropharynx is clear. Moist mucous membranes. Neck has full range of motion without eliciting any pain. EYES: The sclera were anicteric and conjunctiva were pink and moist. Extraocular movements were intact and pupils were equal round and reactive to light. Eyelids were unremarkable. PULMONARY: Unlabored respirations. Good breath sounds bilaterally. No audible rales rhonchi or wheezing was noted. CARDIOVASCULAR: There is a regular rate and rhythm without any murmurs gallops or rubs. ABDOMEN: Soft and nontender with normal bowel sounds. SKIN: Skin is clear with no lesions or rashes and otherwise unremarkable. NEUROLOGIC: Patient is alert and oriented x3. Cranial nerves II through XII are grossly intact. Motor and sensory are also intact. Normal speech, volume and content. Symmetrical smile. MUSCULOSKELETAL: Normal extremities with adequate strength and full range of motion. LYMPHATICS: No significant lymphadenopathy is noted PSYCHIATRIC: Normal psychiatric evaluation. Limitations: no limitations Course Vital Signs 06/06/23 06/06/23 14:51 19:35 Temperature 97.4 F L Pulse Rate 110 H 92 Respiratory 24 16 Rate Blood Pressure 107/68 117/70 O2 Sat by Pulse 96 98 Oximetry Medical Decision Making - Medical Decision Making EKG is interpreted by myself EKG shows a sinus rhythm at 97 bpm parable 150 QRS 92 QT interval 29 QTc is 384 patient's EKG shows no ST segment ovation or depression. Was pt. sent in by a medical professional or institution (, PA, MAJOR ACCOUNT REPRESENTATIVE, urgent care, hospital, or residential...) When possible be specific @ -Patient was sent in by Dr. Kumar Did you speak to anyone other than the patient for history (EMS, parent, family, police, friend...)? What history was obtained from this source @ -No Did you review nursing and triage notes (agree or disagree)? Why? @ -I reviewed and agree with nursing and triage notes Were old charts reviewed (outside hosp., previous admission, EMS record, old EK G, old radiological studies, urgent care reports/EKG's, residential records)? Report findings @ -I compared the CT scan today with the prior CT scan it did show a cavitating lesion in the left upper lobe Differential Diagnosis (chest pain, altered mental status, abdominal pain women, abdominal pain men, vaginal bleeding, weakness, fever, dyspnea, syncope, headache, dizziness, GI bleed, back pain, seizure, CVA, palpatations, mental health, musculoskeletal)? @ -Differential Dyspnea: Coronary syndrome, arrhythmia, tamponade, asthma, COPD, pulmonary embolism, pneumonia, pneumothorax, pulmonary effusion, anaphylaxis, diabetic ketoacidosis, flailed chest, pulmonary contusion, diaphragmatic rupture, anemia, neuromuscular, this is not meant to be an all-inclusive list. EKG interpreted by me (3pts min.). @ -As above X-rays interpreted by me (1pt min.). @ -None done CT interpreted by me (1pt min.). @ -None done U/S interpreted by me (1pt. min.). @ -None done What testing was considered but not performed or refused? (CT, X-rays, U/S, labs)? Why? @ -None What meds were considered but not given or refused? Why? @ -None Did you discuss the management of the patient with other professionals (professionals i.e. , PA, MAJOR ACCOUNT REPRESENTATIVE, lab, RT, psych nurse, renal social worker, pricing clerk, teacher, public relations officer, case worker)? Give summary @ -I spoke with [facility] physicians they agreed admit the patient admit the patient wrote admitting orders I consulted pulmonology Was smoking cessation discussed for >3mins.? @ -No Was critical care preformed (if so, how long)? @ -No Were there social determinants of health that impacted care today? How? (Homelessness, low income, unemployed, alcoholism, drug addiction, transportation, low edu. Level, literacy, decrease access to med. care, assisted, rehab)? @ -No Was there de-escalation of care discussed even if they declined (Discuss DNR or withdrawal of care, Hospice)? DNR status @ -No What co-morbidities impacted this encounter? (DM, HTN, Smoking, COPD, CAD, Can cer, CVA, ARF, Chemo, Hep., AIDS, mental health diagnosis, sleep apnea, morbid obesity)? @ -None Was patient admitted / discharged? Hospital course, mention meds given and route, prescriptions, significant lab abnormalities, going to OR and other pertinent info. @ -I reviewed patient's CAT scan from the that did show a cavitating lesion of left upper lobe consistent with an abscess. I started the patient on clindamycin and Rocephin. I admitted the patient to [facility] physicians and consulted pulmonary Undiagnosed new problem with uncertain prognosis? @ -No Drug Therapy requiring intensive monitoring for toxicity (Heparin, Nitro, Insulin, Cardizem)? @ -No Were any procedures done? @ -No Diagnosis/symptom? @ -Lung abscess Acute, or Chronic, or Acute on Chronic? @ -Acute Uncomplicated (without systemic symptoms) or Complicated (systemic symptoms)? @ -Complicated Side effects of treatment? @ -No Exacerbation, Progression, or Severe Exacerbation? @ -No Poses a threat to life or bodily function? How? (Chest pain, [place], [place], pneumonia, PE, COPD, DKA, ARF, appy, cholecystitis, CVA, Diverticulitis, Homicidal, Suicidal, threat to staff... and all critical care pts) @ -Yes this could lead to sepsis and endorgan dysfunction - Lab Data Result diagrams: 06/06/23 16:49 06/06/23 16:49 Lab Results 06/06/23 06/06/23 06/06/23 Range/Units 16:49 16:49 16:49 WBC 32.2 H (3.8-10.6) k/uL RBC 3.79 L (4.30-5.90) m/uL Hgb 10.6 L (13.0-17.5) gm/dL Hct 33.8 L (39.0-53.0) % MCV 89.1 (80.0-100.0) fL MCH 28.0 (25.0-35.0) pg MCHC 31.4 (31.0-37.0) g/dL RDW 19.6 H (11.5-15.5) % Plt Count 362 (150-450) k/uL MPV 8.5 Neutrophils % (Manual) 85 % Lymphocytes % (Manual) 8 % Monocytes % (Manual) 7 % Neutrophils # (Manual) 27.37 H (1.3-7.7) k/uL Lymphocytes # (Manual) 2.58 (1.0-4.8) k/uL Monocytes # (Manual) 2.25 H (0-1.0) k/uL Nucleated RBCs 0 (0-0) /100 WBC Manual Slide Review Performed Hypochromasia Moderate Anisocytosis Slight PT 10.2 (10.0-12.5) sec INR 0.9 (<1.2) APTT 26.7 (22.0-30.0) sec Sodium 131 L (137-145) mmol/L Potassium 4.5 (3.5-5.1) mmol/L Chloride 96 L (98-107) mmol/L Carbon Dioxide 21 L (22-30) mmol/L Anion Gap 14 mmol/L BUN 26 H (9-20) mg/dL Creatinine 1.23 (0.66-1.25) mg/dL Est GFR (CKD-EPI)AfAm 73 (>60 ml/min/1.73 sqM) Est GFR (CKD-EPI)NonAf 63 (>60 ml/min/1.73 sqM) Glucose 85 (74-99) mg/dL Lactic Ac Sepsis Rflx Plasma Lactic Acid Eugene (0.7-2.0) mmol/L Calcium 9.4 (8.4-10.2) mg/dL Total Bilirubin 0.5 (0.2-1.3) mg/dL AST 26 (17-59) U/L ALT 16 (4-49) U/L Alkaline Phosphatase 202 H (38-126) U/L Total Protein 7.3 (6.3-8.2) g/dL Albumin 3.9 (3.5-5.0) g/dL 06/06/23 06/06/23 Range/Units 16:49 17:53 WBC (3.8-10.6) k/uL RBC (4.30-5.90) m/uL Hgb (13.0-17.5) gm/dL Hct (39.0-53.0) % MCV (80.0-100.0) fL MCH (25.0-35.0) pg MCHC (31.0-37.0) g/dL RDW (11.5-15.5) % Plt Count (150-450) k/uL MPV Neutrophils % (Manual) % Lymphocytes % (Manual) % Monocytes % (Manual) % Neutrophils # (Manual) (1.3-7.7) k/uL Lymphocytes # (Manual) (1.0-4.8) k/uL Monocytes # (Manual) (0-1.0) k/uL Nucleated RBCs (0-0) /100 WBC Manual Slide Review Hypochromasia Anisocytosis PT (10.0-12.5) sec INR (<1.2) APTT (22.0-30.0) sec Sodium (137-145) mmol/L Potassium (3.5-5.1) mmol/L Chloride (98-107) mmol/L Carbon Dioxide (22-30) mmol/L Anion Gap mmol/L BUN (9-20) mg/dL Creatinine (0.66-1.25) mg/dL Est GFR (CKD-EPI)AfAm (>60 ml/min/1.73 sqM) Est GFR (CKD-EPI)NonAf (>60 ml/min/1.73 sqM) Glucose (74-99) mg/dL Lactic Ac Sepsis Rflx Y Plasma Lactic Acid Eugene 2.1 H* (0.7-2.0) mmol/L Calcium (8.4-10.2) mg/dL Total Bilirubin (0.2-1.3) mg/dL AST (17-59) U/L ALT (4-49) U/L Alkaline Phosphatase (38-126) U/L Total Protein (6.3-8.2) g/dL Albumin (3.5-5.0) g/dL Disposition Clinical Impression: Lung abscess Disposition: ADMITTED IP TO THIS HOSP Referrals: Eduardo Parsons MD [Primary Care Provider] - 1-2 days Time of Disposition: 20:16
[2023-06-06] MEDS ORDERED: PNEUMONIA PROTOCOL UTILIZED 1 EACH MISC PO PRN (20:49)
[2023-06-06] MEDS ORDERED: ONDANSETRON 4 MG TAB PO PRN (21:19)
[2023-06-06] MEDS ORDERED: PROCHLORPERAZINE 10 MG TAB PO PRN (21:19)
[2023-06-06] MEDS ORDERED: ALBUTEROL NEBULIZED 2.5 MG/3 ML INHALATION PRN (21:19)
[2023-06-06] MEDS ORDERED: dexAMETHasone 4 MG TAB PO PRN (21:19)
[2023-06-06] MEDS: cefTRIAXone IN SWFI 1,000 MG/10 ML SYRINGE IVP STA ×2 (21:30→21:32)
[2023-06-06] MEDS: valACYclovir HCL 500 MG TAB PO SCH (22:43)
[2023-06-06] MEDS: TRIFLURIDINE 1% OPHTH DROPS 7.5 ML BTL BOTH EYES SCH (22:43)
[2023-06-07] MEDS: CLINDAMYCIN 600 MG in DEXTROSE 5% IN WATER 50 ML IVPB SCH (00:16)
--- NOTE | 2023-06-07 03:18 | P.HPIM ---
History of Present Illness H&P Date: 06/06/23 Chief Complaint: Coughing 62-year-old male with lung cancer, hypertension, COPD Patient coming in for evaluation of worsening shortness of breath and coughing over the past 3 weeks he follows up with pulmonary as an outpatient will upon reviewing some recent images was suspicious of lung abscess for which they recommended he comes into the hospital for evaluation Patient reports symptoms of shortness of breath and coughing over the past 3 weeks off-and-on he recalls taking a short course of antibiotic prior to that for 1 week without much improvement he denies however any fevers chills nausea vomiting, palpitations GI bleed diarrhea urinary changes However patient does report shortness of breath with mild to moderate exertion symptoms just walking around the house to go to bathroom for which she has been concerned that his doctors might be missing something. Patient reports productive cough of green sputum but denies any hemoptysis. Patient coming in under the assumption that he might get some procedures done as his valet runner was suspecting a lung abscess Patient denies tobacco smoking illicit drugs or heavy alcohol review of systems Pertinent positives as noted in HPI. All other systems were reviewed and are negative on exam Constitutional: No acute distress Eyes: Anicteric sclerae, moist conjunctiva, Pupils equal round reactive to light ENMT: NC/AT Oropharynx clear, no erythema, or exudates Neck: Supple, no masses, or JVD No carotid bruits No thyromegaly Lungs: Diminished breath sounds, no wheezing or rhonchi Clear to percussion Normal respiratory effort, no accessory muscle use Cardiovascular: Heart regular in rate and rhythm, No murmurs, gallops, or rubs No peripheral edema Abdominal: Soft Nontender, no guarding, rebound or rigidity Abdomen moving with respiration Normoactive bowel sounds Extremities: No digital cyanosis No clubbing Pedal pulses intact and symmetrical Radial pulses intact and symmetrical No calf tenderness Psychiatric: Alert and oriented to person, place and time Appropriate affect fair judgement Neuro Muscles Strength 5/5 in all 4 extremities Sensation to light touch grossly present throughout Cranial nerves II-XII grossly intact Lymphatics: no palpable cervical or supraclavicular lymph nodes Past Medical History Past Medical History: Coronary Artery Disease (CAD), Cancer, Chest Pain / Angina, COPD, Hyperlipidemia, Hypertension, Myocardial Infarction ([place]) Additional Past Medical History / Comment(s): SVT with chest pain/palpitations- chemically converted. Last Myocardial Infarction Date:: 2017 History of Any Multi-Drug Resistant Organisms: MRSA Date of last positivie culture/infection: 12/23/2013 MDRO Source:: Face Past Surgical History: Heart Catheterization With Stent Additional Past Surgical History / Comment(s): I&D of R inframandibular abscess. 3 cardiac stents. Past Anesthesia/Blood Transfusion Reactions: No Reported Reaction Date of Last Stent Placement:: 2017 Past Psychological History: No Psychological Hx Reported Smoking Status: Former smoker Past Alcohol Use History: None Reported Past Drug Use History: Marijuana - Past Family History Father Family Medical History: No Reported History Additional Family Medical History / Comment(s): Father of "natural causes" at the age of 79yrs. Mother Family Medical History: COPD, Coronary Artery Disease (CAD) Additional Family Medical History / Comment(s): Mother is 76yrs old. She has had several MIs, 6 cardiac stents and a 4 vessel CABG. Medications and Allergies Home Medications Medication Instructions Recorded Confirmed Type Atorvastatin [Lipitor] 80 mg PO HS 03/04/21 06/06/23 History Ondansetron [Zofran] 4 mg PO Q6H PRN 05/09/22 06/06/23 History Dapagliflozin Propanediol [Farxiga] 10 mg PO DAILY #30 tab 09/01/22 06/06/23 Rx Spiriva Respimat 1.25mcg/Actuation 2 puff INHALATION RT-HS #0 09/01/22 06/06/23 Rx Mist Albuterol Inhaler [Ventolin Hfa 1 - 2 puff INHALATION RT-Q6H PRN 06/06/23 06/06/23 History Inhaler] Cholecalciferol (Vitamin D3) 50 mcg PO DAILY 06/06/23 06/06/23 History [Vitamin D3 (50 Mcg = 2000 Iu)] Hydrocodone/Acetaminophen 1 tab PO QID PRN 06/06/23 06/06/23 History [Hydrocodone/Acetaminophen 10-300 mg] Metoprolol Tartrate [Lopressor] 25 mg PO BID 06/06/23 06/06/23 History Omeprazole 40 mg PO DAILY PRN 06/06/23 06/06/23 History Prochlorperazine Maleate 10 mg PO Q6H PRN 06/06/23 06/06/23 History Spironolactone [Aldactone] 50 mg PO DAILY 06/06/23 06/06/23 History Trifluridine 1% Ophth Soln 1 drop BOTH EYES Q2H 06/06/23 06/06/23 History [Viroptic 1% Ophth Soln] dexAMETHasone [Decadron] 8 mg PO BID PRN 06/06/23 06/06/23 History valACYclovir HCL [Valtrex] 500 mg PO TID 06/06/23 06/06/23 History Allergies Allergy/AdvReac Type Severity Reaction Status Date / Time Penicillins Allergy Dyspnea & Verified 06/06/23 17:18 Hives all over Physical Exam Vitals: Vital Signs Temp Pulse Resp BP Pulse Ox 06/07/23 02:47 92 16 111/70 98 06/06/23 22:56 93 18 107/56 99 06/06/23 19:35 92 16 117/70 98 06/06/23 14:51 97.4 F L 110 H 24 107/68 96 Intake and Output 06/06/23 06/06/23 06/07/23 14:59 22:59 06:59 Other: Weight 74.843 kg Results CBC & Chem 7: 06/06/23 16:49 06/06/23 16:49 Labs: Abnormal Lab Results - Last 24 Hours (Table) 06/06/23 06/06/23 06/06/23 Range/Units 16:49 16:49 16:49 WBC 32.2 H (3.8-10.6) k/uL RBC 3.79 L (4.30-5.90) m/uL Hgb 10.6 L (13.0-17.5) gm/dL Hct 33.8 L (39.0-53.0) % RDW 19.6 H (11.5-15.5) % Neutrophils # (Manual) 27.37 H (1.3-7.7) k/uL Monocytes # (Manual) 2.25 H (0-1.0) k/uL Sodium 131 L (137-145) mmol/L Chloride 96 L (98-107) mmol/L Carbon Dioxide 21 L (22-30) mmol/L BUN 26 H (9-20) mg/dL Plasma Lactic Acid Eugene 2.1 H* (0.7-2.0) mmol/L Alkaline Phosphatase 202 H (38-126) U/L Assessment and Plan Assessment: 62-year-old male with lung cancer coming into the hospital due to exertional dyspnea with mild to moderate exertion I discussed the case with ED doctor and accepted the admission for sepsis secondary to possible lung abscess with anticipated length of stay more than 2 midnights Sepsis with tachycardia and leukocytosis, secondary to lung abscess Exertional shortness of breath secondary to lung cancer and abscess formation Follow-up cultures Patient received Rocephin clindamycin and Vanco and levofloxacin in the ED continue with vancomycin dosing by pharmacy and clindamycin IV piggyback every 8 hours due to allergy to penicillin Tylenol for fever Acute respiratory viral panel negative for COVID RSV and influenza DuoNebs every [address] scan of the chest showing suspected several disease progression of lung cancer, extensive new opacification superior segment left lower lobe measuring 7.5 cm concerning for necrotizing or cavitary pneumonia, circumferential wall thickening involving sigmoid colon possible mild to moderate colitis Lung cancer Follow-up pulmonary recommendations Patient currently on chemotherapy Hypertension controlled continue with metoprolol, spironolactone Hyperlipidemia continue with atorvastatin Diabetes mellitus Insulin sliding scale Continue with Farxiga Blood work showing lactic acid 2.1 improved to 0.9 with IV fluid hydration BUN 26 creatinine 1.2 Sodium 131 potassium 4.5 Hemoglobin 10.6 patient denies any bleeding Full code DVT prophylaxis with Lovenox 40 mg subcu daily
[2023-06-07] MEDS ORDERED: DEXTROSE 50% SYRINGE 50 ML IVP PRN ×2 (03:21)
[2023-06-07 04:47] LABS: Glucose,Whole Blood 120 mg/dL (70-110)
[2023-06-07] MEDS: VANCOMYCIN 1,250 MG in SODIUM CHLORIDE 0.9% 250 ML IVPB SCH (05:56)
--- NOTE | 2023-06-07 06:12 | P.CNPUL ---
History of Present Illness Consult date: 06/07/23 Requesting physician: Akhil Vyas Reason for consult: other (Lung abscess) Chief complaint: 3 weeks of shortness of breath, productive cough, night sweats History of present illness: Patient is a 62-year-old white male with past medical history significant for squamous cell carcinoma COPD, former tobacco smoker, hypertension, hyperlipidemia, coronary artery disease with previous PCI/stent, ischemic cardiomyopathy, among other things. Patient does follow in the pulmonary office with Dr. Kumar, as the patient has history of squamous cell lung carcinoma with a left midlung mass. He also follows with his oncologist Dr. Hoyos. He currently receives chemotherapy reportedly every 21 days. Last reported dose received 05/17/23. Over the last 3 weeks he has had increasing shortness of breath, a productive cough with copious amounts of yellow to green sputum, and night sweats. Denies hemoptysis, chest pain, fevers. He has been treated on 2 different occasions with antibiotics. A CT of the chest, abdomen, and pelvis with contrast taken 06/01/2023 showed extensive new opacification of the superior segment of the left lower lobe measuring up to 7.7 cm. There were areas of air cavitation and fluid. This is concerning for necrotizing or cavitary pneumonia or possible pulmonary abscess within this region. Previously identified posterior left infrahilar disease not is well-delineated due to the new opacification mentioned previously. May be larger previously measuring 2.1 cm and currently 3.3 cm. There was also suspected subtle disease progression given slightly increased precarinal and subcarinal soft tissue. The contiguous soft tissue extended along the right upper lobe bronchus and right suprahilar region, slightly thicker as well. Patient did follow up with Dr. Juares in the pulmonary office yesterday, and he recommended going to the ER for IV antibiotics. CBC on arrival: WC count 32.2, hemoglobin 10.6, hematocrit 33.8, platelets 362. BMP on arrival: Sodium 131, potassium 4.5, chloride 96, serum bicarb 21, BUN 26, creatinine 1.23, glucose 85. Lactic was 2.1 down to 0.9. Patient has been started on a combination of clindamycin and vancomycin. 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 Denies current tobacco use. Denies alcohol use. Poor dentition, and is supposed to have some teeth pulled sometime next month. Patient is currently lying in bed, on room air, in no acute distress. Overall appearance is nontoxic. Vital signs are stable. Review of Systems REVIEW OF SYSTEMS: CONSTITUTIONAL: Denies any recent significant weight loss or weight gain. EYES: Reports blurred vision of right eye with clear drainage. Denies pain. EARS, NOSE, MOUTH, THROAT: Denies headaches, denies sore throat. CARDIOVASCULAR: Denies chest pain, palpitations or syncopal episodes. RESPIRATORY: See HPI. GASTROINTESTINAL: Denies change in appetite, abdominal pain, nausea and vomiting, or diarrhea GENITOURINARY: Denies hematuria, denies infections. MUSKULOSKELETAL: Denies pain, denies swelling. INTEGUMENTARY: Denies rash, denies eczema. NEUROLOGICAL: Denies recent memory loss, no recent seizure activity. PSYCHIATRIC: Denies anxiety, denies depression. HEMATOLOGIC/LYMPHATIC: Denies anemia, denies enlarged lymph node Past Medical History Past Medical History: Coronary Artery Disease (CAD), Cancer, Chest Pain / Angina, COPD, Hyperlipidemia, Hypertension, Myocardial Infarction ([place]) Additional Past Medical History / Comment(s): SVT with chest pain/palpitations- chemically converted. Last Myocardial Infarction Date:: 2017 History of Any Multi-Drug Resistant Organisms: MRSA Date of last positivie culture/infection: 12/23/2013 MDRO Source:: Face Past Surgical History: Heart Catheterization With Stent Additional Past Surgical History / Comment(s): I&D of R inframandibular abscess. 3 cardiac stents. Past Anesthesia/Blood Transfusion Reactions: No Reported Reaction Date of Last Stent Placement:: 2017 Past Psychological History: No Psychological Hx Reported Smoking Status: Former smoker Past Alcohol Use History: None Reported Past Drug Use History: Marijuana - Past Family History Father Family Medical History: No Reported History Additional Family Medical History / Comment(s): Father of "natural causes" at the age of 79yrs. Mother Family Medical History: COPD, Coronary Artery Disease (CAD) Additional Family Medical History / Comment(s): Mother is 76yrs old. She has had several MIs, 6 cardiac stents and a 4 vessel CABG. Medications and Allergies Home Medications Medication Instructions Recorded Confirmed Type Atorvastatin [Lipitor] 80 mg PO HS 03/04/21 06/06/23 History Ondansetron [Zofran] 4 mg PO Q6H PRN 05/09/22 06/06/23 History Dapagliflozin Propanediol [Farxiga] 10 mg PO DAILY #30 tab 09/01/22 06/06/23 Rx Spiriva Respimat 1.25mcg/Actuation 2 puff INHALATION RT-HS #0 09/01/22 06/06/23 Rx Mist Albuterol Inhaler [Ventolin Hfa 1 - 2 puff INHALATION RT-Q6H PRN 06/06/23 06/06/23 History Inhaler] Cholecalciferol (Vitamin D3) 50 mcg PO DAILY 06/06/23 06/06/23 History [Vitamin D3 (50 Mcg = 2000 Iu)] Hydrocodone/Acetaminophen 1 tab PO QID PRN 06/06/23 06/06/23 History [Hydrocodone/Acetaminophen 10-300 mg] Metoprolol Tartrate [Lopressor] 25 mg PO BID 06/06/23 06/06/23 History Omeprazole 40 mg PO DAILY PRN 06/06/23 06/06/23 History Prochlorperazine Maleate 10 mg PO Q6H PRN 06/06/23 06/06/23 History Spironolactone [Aldactone] 50 mg PO DAILY 06/06/23 06/06/23 History Trifluridine 1% Ophth Soln 1 drop BOTH EYES Q2H 06/06/23 06/06/23 History [Viroptic 1% Ophth Soln] dexAMETHasone [Decadron] 8 mg PO BID PRN 06/06/23 06/06/23 History valACYclovir HCL [Valtrex] 500 mg PO TID 06/06/23 06/06/23 History Allergies Allergy/AdvReac Type Severity Reaction Status Date / Time Penicillins Allergy Dyspnea & Verified 06/06/23 17:18 Hives all over Physical Exam Vitals: Vital Signs Temp Pulse Resp BP Pulse Ox 06/07/23 02:47 92 16 111/70 98 06/06/23 22:56 93 18 107/56 99 06/06/23 19:35 92 16 117/70 98 06/06/23 14:51 97.4 F L 110 H 24 107/68 96 Intake and Output 06/06/23 06/06/23 06/07/23 14:59 22:59 06:59 Other: Weight 74.843 kg GENERAL EXAM: Alert, 62-year-old white male, overall nontoxic appearance. Comfortable in no apparent distress. HEAD: Normocephalic and atraumatic EYES: Normal reaction of pupils, equal size. Right eyes mildly erythemic, with clear drainage bilaterally. NOSE: Clear with pink turbinates. THROAT: No erythema or exudates. Poor dentition. NECK: No masses, no JVD. CHEST: No chest wall deformity. LUNGS: Equal air entry with no crackles, wheeze, rhonchi or dullness. On room air. No conversational dyspnea or accessory muscle use while at rest CVS: S1 and S2 normal with no audible murmur, regular rhythm. No extra heart sounds ABDOMEN: No hepatosplenomegaly, active bowel sounds, no guarding or rigidity. SPINE: No scoliosis or deformity SKIN: No rashes CENTRAL NERVOUS SYSTEM: No focal deficits, tone is normal in all 4 extremities. EXTREMITIES: There is no peripheral edema, clubbing, or cyanosis. Peripheral pulses are intact. Results - Laboratory Findings CBC and BMP: 06/06/23 16:49 06/06/23 16:49 PT/INR, D-dimer PT 10.2 sec (10.0-12.5) 06/06/23 16:49 INR 0.9 (<1.2) 06/06/23 16:49 Abnormal lab findings: Abnormal Labs 06/06/23 06/06/23 06/06/23 16:49 16:49 16:49 WBC 32.2 H RBC 3.79 L Hgb 10.6 L Hct 33.8 L RDW 19.6 H Neutrophils # (Manual) 27.37 H Monocytes # (Manual) 2.25 H Sodium 131 L Chloride 96 L Carbon Dioxide 21 L BUN 26 H POC Glucose (mg/dL) Plasma Lactic Acid Eugene 2.1 H* Alkaline Phosphatase 202 H 06/07/23 04:44 WBC RBC Hgb Hct RDW Neutrophils # (Manual) Monocytes # (Manual) Sodium Chloride Carbon Dioxide BUN POC Glucose (mg/dL) 120 H Plasma Lactic Acid Eugene Alkaline Phosphatase - Diagnostic Findings Chest x-ray: image reviewed CT scan - chest: image reviewed Assessment and Plan Assessment: Suspected pulmonary abscess, There is an extensive new opacification of the superior segment of the left lower lobe measuring up to 7.7 cm. There were areas of air cavitation and fluid. This is concerning for necrotizing/cavitary pneumonia or possible developing pulmonary abscess within this region. Metastatic squamous cell carcinoma, likely with disease progression. CT of the chest, abdomen, and pelvis with contrast taken 06/01/2023 showed The above mentioned findings. The previously identified posterior left infrahilar disease, not is well-delineated due to the new opacification mentioned previously. May be larger, previously measuring 2.1 cm and currently 3.3 cm. There was also suspected subtle disease progression given slightly increased precarinal and subcarinal soft tissue. The contiguous soft tissue extended along the right upper lobe bronchus and right suprahilar region, slightly thicker as well. Reportedly on systemic chemotherapy directed by his oncologist. Acute leukocytosis, secondary to above Chronic anemia History of hypertension History of hyperlipidemia History of coronary artery disease with previous PCI/stent History of ischemic cardiomyopathy, most recent echocardiogram available from 08/27/2022 estimates an impaired left ventricular systolic ejection fraction of 35%. Chronic obstructive pulmonary disease, stable Former tobacco dependance Reportedly diagnosed with ocular herpes, on valacyclovir outpatient, and this was continued. Plan: Patient's medications, labs, imaging reviewed. Patient was admitted for IV antibiotics and inpatient treatment. Patient may benefit from bronchoscopy with BAL and possible biopsy of the lesion., which will be discussed with Dr. Braga later this morning. Patient was started on empiric antibiotics for possible pulmonary abscess. Allergic to penicillins. Sputum and blood cultures pending. Procalcitonin level pending. We will continue to follow, and additional recommendations are forthcoming. I have personally seen and examined the patient, performed the documentation and the assessment and plan as written. Number of minutes spent on the visit:20 Time with Patient: Greater than 30
--- NOTE | 2023-06-07 08:44 | XR ---
EXAMINATION TYPE: XR chest 1V portable DATE OF EXAM: 06/07/2023 HISTORY: Shortness of breath. COMPARISON: 08/30/2022 TECHNIQUE: Single view of the chest is submitted. FINDINGS: Demonstrated are scattered senescent parenchymal change. Persistent but slightly improving infiltrates left perihilar and right suprahilar regions. Follow-up recommended. The heart is stable. Hilar and mediastinal structures are within normal limits. Degenerative changes are seen of the dorsal spine. IMPRESSION: 1. Persistent but slightly improving infiltrates left perihilar and right suprahilar regions. Follow -up recommended.
[2023-06-07 08:46] LABS: Anisocytosis Slight; HCT 26.9 % (39.0-53.0); Hypochromasia Marked; MCH 27.6 pg (25.0-35.0); MCHC 30.4 g/dL (31.0-37.0); MCV 90.9 fL (80.0-100.0); Mean Platelet Volume 8.2; Platelet Count 314 k/uL (150-450); RBC 2.96 m/uL (4.30-5.90); RDW 19.7 % (11.5-15.5); WBC 26.2 k/uL (3.8-10.6)
[2023-06-07] MEDS: INSULIN ASPART (NovoLOG) 100 UNIT/ML VIAL SQ SCH (08:58)
[2023-06-07] MEDS: METOPROLOL TARTRATE 25 MG TAB PO SCH (08:59)
[2023-06-07 09:07] LABS: HGB 8.2 gm/dL (13.0-17.5)
[2023-06-07] MEDS: IPRATROPIUM 0.5 MG/2.5 ML NEBU INHALATION SCH (09:15)
[2023-06-07 09:22] LABS: African American GFR (CKD) 89 (>60 ml/min/1.73 sqM); Anion Gap 9 mmol/L; Blood Urea Nitrogen 17 mg/dL (9-20); Calcium 8.3 mg/dL (8.4-10.2); Carbon Dioxide 22 mmol/L (22-30); Chloride 103 mmol/L (98-107); Glucose 96 mg/dL (74-99); Non-African American GFR(CKD) 77 (>60 ml/min/1.73 sqM); Potassium 4.1 mmol/L (3.5-5.1); Sodium 134 mmol/L (137-145)
[2023-06-07] MEDS: SPIRONOLACTONE 25 MG TAB PO SCH (10:17)
[2023-06-07] MEDS: HYDROcodone/APAP 10-325MG 1 EACH TAB PO PRN (10:17)
[2023-06-07] MEDS: DAPAGLIFLOZIN PROPANEDIOL 10 MG TABLET PO SCH (10:20)
[2023-06-07] MEDS: PANTOPRAZOLE 40 MG TABLET PO PRN (10:20)
[2023-06-07] MEDS: BENZONATATE 100 MG CAP PO PRN (10:32)
[2023-06-07] MEDS ORDERED: ACETAMINOPHEN TAB 325 MG TAB PO PRN (15:20)
[2023-06-07] MEDS ORDERED: MELATONIN 3 MG TABLET PO PRN (15:20)
[2023-06-07] MEDS ORDERED: ONDANSETRON 4 MG/2 ML VIAL IVP PRN (15:20)
[2023-06-07] MEDS ORDERED: NALOXONE 0.4 MG/ML 1 ML VIAL IV PRN (15:20)
--- NOTE | 2023-06-07 15:25 | P.PN ---
Subjective Progress Note Date: 06/07/23 Patient is a 62-year-old male with squamous cell carcinoma of the lung, COPD, hypertension, dyslipidemia, coronary artery disease status post PCI, ischemic cardiomyopathy with last known ejection fraction 55 to 60%, multiple other comorbid conditions who presented to the emergency department with complaints of worsening shortness of breath over the last 3 weeks. Patient has been undergoing outpatient chemotherapy every 21 days his last dose being received on 05/17/2023. He was following with Dr. Gonzalez in the outpatient setting and underwent a CT chest/abdomen/pelvis on 05/31 which demonstrated new opacification of the superior segment of the left upper lobe measuring 7.5 cm with a air cav itation and fluid concerning for possible pulmonary abscess versus cavitary pneumonia. He was seen by Dr. Gonzalez in the pulmonary office on 06/06/2023 and was referred to the ER for possible admission and IV antibiotics. On arrival to the ER his vital signs were remarkable for a pulse of 110. Admission laboratory analysis was remarkable for white blood cell count of 32, hemoglobin 10, sodium 131, BUN 26, and lactic acid of 2.1. Influenza A/B/RSV/COVID-19 testing was negative. Chest x-ray demonstrated increased vascular markings in the right upper lobe, left hilar opacification. Patient was subsequently admitted and started on clindamycin and Vanco mycin. He also tolerated a dose of Rocephin and Levaquin in the emergency department. Pulmonary was consulted. Patient reports that for the last 3 weeks he has had worsening shortness of breath and fatigue. He has had a cough productive of yellow sputum. He is feeling slightly better today than yesterday. He reports he did have some diarrhea as well as nausea and vomiting right after chemo but that is subsequently subsided. Vital signs reviewed General: Nontoxic, no distress, appears at stated age Cardiovascular: S1S2 reg, no murmur Lungs: Course bs bilateral, no rhonchi, no rales, no accessory muscle use Abdominal: Soft, nontender to palpation, no guarding Ext: No gross muscle atrophy, no edema b/l lower extremities, no contractures Neuro: CN II-XI grossly intact, no focal neuro deficits Psych: Alert, oriented, appropriate affect Assessment/Plan: Pulmonary abscess, possible empyema with sepsis is based on white blood cell count and tachycardia COPD without exacerbation -Squamous cell carcinoma of the lung -Rocephin 2 g IV piggyback every 24 hours day #2, clindamycin 600 mg IV every 8 hours day #2 -Vancomycin IV piggyback with dosing based on creatinine and trough date #2, monitor creatinine and trough for signs of toxicity -Consult heme-onc -Pulmonary note reviewed: Possible BAL, continue current care -Await sputum culture -DuoNebs 4 times daily as needed, Atrovent 4 times daily scheduled Coronary artery disease Ischemic cardiomyopathy with ejection fraction 55 to 60% Hypertension Dyslipidemia -Aldactone 50 mg daily, metoprolol 25 mg twice daily, Farxiga 10 mg daily, not chronically on KATIA inhibitor or ARB -Lipitor 80 mg nightly Imaging: Hospital course imaging: Outpatient CT chest abdomen pelvis: Subtle disease progression in the precarinal and subcarinal soft tissue extending along the right upper lobe bronchus and right suprahilar region, extensive new opacification in the superior segment of the left upper lobe measuring up to 7.5 cm with area of cavitation and a fluid level correlate for necrotizing or cavitary pneumonia possible early 3.8 cm pulmonary abscess within this region, circumferential wall thickening of the sigmoid colon Data Review: Labs reviewed from today include CBC, CMP, procalcitonin, and Legionella urine antigen which demonstrate white blood cell count 26.2, hemoglobin 8.2, sodium 134, procalcitonin 0.25, and Legionella urine antigen was negative. DVT prophylaxis: Lovenox Anticipated discharge date: Pending Clinical Course Anticipated discharge place: Pending Clinical Course This dictation was prepared using [employer] voice recognition software. Though every attempt is made to correct errors during dictation some may still exist. Objective - Vital Signs Vital signs: Vital Signs Temp 97.4 F L 06/06/23 14:51 Pulse 86 06/07/23 06:00 Resp 18 06/07/23 06:00 BP 122/79 06/07/23 06:00 Pulse Ox 97 06/07/23 06:00 FiO2 Intake & Output 06/06/23 06/07/23 06/07/23 18:59 06:59 18:59 Weight 74.843 kg - Labs CBC & Chem 7: 06/07/23 07:34 06/07/23 07:34 Labs: Abnormal Lab Results - Last 24 Hours (Table) 04/22/24 04/22/24 04/22/24 Range/Units 16:49 16:49 16:49 WBC 32.2 H (3.8-10.6) k/uL RBC 3.79 L (4.30-5.90) m/uL Hgb 10.6 L (13.0-17.5) gm/dL Hct 33.8 L (39.0-53.0) % RDW 19.6 H (11.5-15.5) % Neutrophils # (Manual) 27.37 H (1.3-7.7) k/uL Monocytes # (Manual) 2.25 H (0-1.0) k/uL Sodium 131 L (137-145) mmol/L Chloride 96 L (98-107) mmol/L Carbon Dioxide 21 L (22-30) mmol/L BUN 26 H (9-20) mg/dL POC Glucose (mg/dL) (70-110) mg/dL Plasma Lactic Acid Eugene 2.1 H* (0.7-2.0) mmol/L Alkaline Phosphatase 202 H (38-126) U/L 06/07/23 Range/Units 04:44 WBC (3.8-10.6) k/uL RBC (4.30-5.90) m/uL Hgb (13.0-17.5) gm/dL Hct (39.0-53.0) % RDW (11.5-15.5) % Neutrophils # (Manual) (1.3-7.7) k/uL Monocytes # (Manual) (0-1.0) k/uL Sodium (137-145) mmol/L Chloride (98-107) mmol/L Carbon Dioxide (22-30) mmol/L BUN (9-20) mg/dL POC Glucose (mg/dL) 120 H (70-110) mg/dL Plasma Lactic Acid Eugene (0.7-2.0) mmol/L Alkaline Phosphatase (38-126) U/L
[2023-06-07 17:12] LABS: Glucose,Whole Blood 128 mg/dL (70-110)
[2023-06-07 20:31] LABS: Glucose,Whole Blood 98 mg/dL (70-110)
[2023-06-07] MEDS: guaiFENesin 600 MG TABLET.ER PO SCH (20:56)
[2023-06-07] MEDS: ATORVASTATIN 80 MG TAB PO SCH (20:56)
[2023-06-08 05:56] LABS: Glucose,Whole Blood 105 mg/dL (70-110)
[2023-06-08] MEDS: IPRATROPIUM-ALBUTEROL 3 ML NEB INHALATION PRN (08:03)
[2023-06-08] MEDS: ENOXAPARIN 40 MG/0.4 ML SYRINGE SQ SCH (08:48)
[2023-06-08 09:49] LABS: Anisocytosis Slight; HCT 29.6 % (39.0-53.0); HGB 8.7 gm/dL (13.0-17.5); Hypochromasia Marked; MCH 27.3 pg (25.0-35.0); MCHC 29.4 g/dL (31.0-37.0); MCV 92.9 fL (80.0-100.0); Mean Platelet Volume 8.3; Platelet Count 307 k/uL (150-450); RBC 3.19 m/uL (4.30-5.90); RDW 19.4 % (11.5-15.5); WBC 19.4 k/uL (3.8-10.6)
[2023-06-08 10:15] LABS: African American GFR (CKD) 90 (>60 ml/min/1.73 sqM); Non-African American GFR(CKD) 78 (>60 ml/min/1.73 sqM)
--- NOTE | 2023-06-08 11:28 | P.PN ---
Subjective Progress Note Date: 06/08/23 Patient is a 62-year-old white male with past medical history significant for squamous cell carcinoma COPD, former tobacco smoker, hypertension, hyperlipidemia, coronary artery disease with previous PCI/stent, ischemic cardiomyopathy, among other things. Patient does follow in the pulmonary office with Dr. Kumar, as the patient has history of squamous cell lung carcinoma with a left midlung mass. He also follows with his oncologist Dr. Hoyos. He currently receives chemotherapy reportedly every 21 days. Last reported dose received 05/17/23. Over the last 3 weeks he has had increasing shortness of breath, a productive cough with copious amounts of yellow to green sputum, and night sweats. Denies hemoptysis, chest pain, fevers. He has been treated on 2 different occasions with antibiotics. A CT of the chest, abdomen, and pelvis with contrast taken 06/01/2023 showed extensive new opacification of the superior segment of the left lower lobe measuring up to 7.7 cm. There were areas of air cavitation and fluid. This is concerning for necrotizing or cavitary pneumonia or possible pulmonary abscess within this region. Previously identified posterior left infrahilar disease not is well-delineated due to the new opacification mentioned previously. May be larger previously measuring 2.1 cm and currently 3.3 cm. There was also suspected subtle disease progression given slightly increased precarinal and subcarinal soft tissue. The contiguous soft tissue extended along the right upper lobe bronchus and right suprahilar region, slightly thicker as well. Patient did follow up with Dr. Juares in the pulmonary office yesterday, and he recommended going to the ER for IV antibiotics. CBC on arrival: WC count 32.2, hemoglobin 10.6, hematocrit 33.8, platelets 362. BMP on arrival: Sodium 131, potassium 4.5, chloride 96, serum bicarb 21, BUN 26, creatinine 1.23, glucose 85. Lactic was 2.1 down to 0.9. Patient has been started on a combination of clindamycin and vancomycin. 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 Denies current tobacco use. Denies alcohol use. Poor dentition, and is supposed to have some teeth pulled sometime next month. Patient is currently lying in bed, on room air, in no acute distress. Overall appearance is nontoxic. Vital signs are stable. The patient is seen today June 08, 2023 and follow-up in the observation unit. He is currently resting comfortably in bed. Awake and alert in no acute distress. He is maintaining good O2 saturations in the 90s on room air. He has normal saline at KVO. His procalcitonin was 0.25. He is continued on Rocephin, clindamycin, vancomycin. Chest x-ray shows persistent but slightly improved infiltrates in the left perihilar and right suprahilar regions. Blood and sputum cultures are pending. Count 19.4. Hemoglobin 8.7. Platelets 307. Creatinine 1.04. GFR 78. He remains afebrile. Hemodynamically stable. Objective - Vital Signs Vital signs: Vital Signs Temp 98.4 F 06/08/23 07:36 Pulse 88 06/08/23 08:13 Resp 20 06/08/23 08:13 BP 104/67 06/08/23 07:36 Pulse Ox 98 06/08/23 08:03 FiO2 Intake & Output 06/07/23 06/08/23 06/08/23 18:59 06:59 18:59 Intake Total 720 Balance 720 Weight 74.843 kg Intake: Oral 720 Other: # Voids 1 3 - Exam GENERAL EXAM: Alert, 62-year-old male, sitting up in bed, on room air. Comfortable in no apparent distress. HEAD: Normocephalic and atraumatic EYES: Normal reaction of pupils, equal size. Right eyes mildly erythemic, with clear drainage bilaterally. NOSE: Clear with pink turbinates. THROAT: No erythema or exudates. Poor dentition. NECK: No masses, no JVD. CHEST: No chest wall deformity. LUNGS: Equal air entry with few scattered rhonchi. No conversational dyspnea CVS: S1 and S2 normal with no audible murmur, regular rhythm. No extra heart sounds ABDOMEN: No hepatosplenomegaly, active bowel sounds, no guarding or rigidity. SPINE: No scoliosis or deformity SKIN: No rashes CENTRAL NERVOUS SYSTEM: No focal deficits, tone is normal in all 4 extremities. EXTREMITIES: There is no peripheral edema, clubbing, or cyanosis. Peripheral pulses are intact. - Labs CBC & Chem 7: 06/08/23 09:11 06/08/23 09:11 Labs: Abnormal Lab Results - Last 24 Hours (Table) 06/07/23 06/07/23 06/08/23 Range/Units 07:34 17:10 09:11 WBC 19.4 H (3.8-10.6) k/uL RBC 3.19 L (4.30-5.90) m/uL Hgb 8.7 L (13.0-17.5) gm/dL Hct 29.6 L (39.0-53.0) % MCHC 29.4 L (31.0-37.0) g/dL RDW 19.4 H (11.5-15.5) % POC Glucose (mg/dL) 128 H (70-110) mg/dL Procalcitonin 0.25 H (0.02-0.09) ng/mL Microbiology - Last 24 Hours (Table) 06/07/23 03:30 Nasal Screen MRSA/MSSA - Final Nasal Swab 06/06/23 16:35 Blood Culture - Preliminary Blood 06/06/23 16:50 Blood Culture - Preliminary Blood 06/07/23 11:56 Gram Stain - Preliminary Sputum Assessment and Plan Assessment: Suspected pulmonary abscess, There is an extensive new opacification of the superior segment of the left lower lobe measuring up to 7.7 cm. There were areas of air cavitation and fluid. This is concerning for necrotizing/cavitary pneumonia or possible developing pulmonary abscess within this region. Metastatic squamous cell carcinoma, likely with disease progression. CT of the chest, abdomen, and pelvis with contrast taken 06/01/2023 showed The above mentioned findings. The previously identified posterior left infrahilar disease, not is well-delineated due to the new opacification mentioned previously. May be larger, previously measuring 2.1 cm and currently 3.3 cm. There was also suspected subtle disease progression given slightly increased precarinal and subcarinal soft tissue. The contiguous soft tissue extended along the right upper lobe bronchus and right suprahilar region, slightly thicker as well. Reportedly on systemic chemotherapy directed by his oncologist. Acute leukocytosis, secondary to above Chronic anemia History of hypertension History of hyperlipidemia History of coronary artery disease with previous PCI/stent History of ischemic cardiomyopathy, most recent echocardiogram available from estimates an impaired left ventricular systolic ejection fraction of 35%. Chronic obstructive pulmonary disease, stable Former tobacco dependance Reportedly diagnosed with ocular herpes, on valacyclovir outpatient, and this was continued Plan: The patient was seen and evaluated Chest x-ray and labs reviewed Continue antibiotics Will plan for bronchoscopy with BAL of the left lower lobe tomorrow We will continue to follow I have personally seen and examined the patient, performed the documentation and the assessment and plan as written. Number of minutes spent on the visit: 10.
[2023-06-08 11:46] LABS: Glucose,Whole Blood 131 mg/dL (70-110)
[2023-06-08] MEDS ORDERED: VANCOMYCIN TROUGH DUE 1 EACH MISC MISCELLANE ONE (17:00)
--- NOTE | 2023-06-08 17:15 | P.PN ---
Subjective Progress Note Date: 06/08/23 (delayed charting seen at 1045) Patient is a 62-year-old male with squamous cell carcinoma of the lung, COPD, hypertension, dyslipidemia, coronary artery disease status post PCI, ischemic cardiomyopathy with last known ejection fraction 55 to 60%, multiple other comorbid conditions who presented to the emergency department with complaints of worsening shortness of breath over the last 3 weeks. Patient has been undergoing outpatient chemotherapy every 21 days his last dose being received on 05/17/2023. He was following with Dr. Gonzalez in the outpatient setting and underwent a CT chest/abdomen/pelvis on 05/31 which demonstrated new opacification of the superior segment of the left upper lobe measuring 7.5 cm with a air cavitation and fluid concerning for possible pulmonary abscess versus cavitary pneumonia. He was seen by Dr. Gonzalez in the pulmonary office on 06/06/2023 and was referred to the ER for possible admission and IV antibiotics. On arrival to the ER his vital signs were remarkable for a pulse of 110. Admission laboratory analysis was remarkable for white blood cell count of 32, hemoglobin 10, sodium 131, BUN 26, and lactic acid of 2.1. Influenza A/B/RSV/COVID-19 testing was negative. Chest x-ray demonstrated increased vascular markings in the right upper lobe, left hilar opacification. Patient was subsequently admitted and started on clindamycin and Vanco mycin. He also tolerated a dose of Rocephin and Levaquin in the emergency department. Pulmonary was consulted. Patient seen and examined at bedside. He continues to have a productive cough. He denies any nausea, vomiting, or diarrhea. Vital signs reviewed General: Nontoxic, no distress, appears at stated age Cardiovascular: S1S2 reg, no murmur Lungs: Course bs bilateral, no rhonchi, no rales, no accessory muscle use Abdominal: Soft, nontender to palpation, no guarding Ext: No gross muscle atrophy, no edema b/l lower extremities, no contractures Neuro: CN II-XI grossly intact, no focal neuro deficits Psych: Alert, oriented, appropriate affect Assessment/Plan: Pulmonary abscess, possible empyema with sepsis is based on white blood cell count and tachycardia COPD without exacerbation -Squamous cell carcinoma of the lung -Rocephin 2 g IV piggyback every 24 hours day #3, clindamycin 600 mg IV every 8 hours day #3 -Await heme-onc recs -Await sputum culture -DuoNebs 4 times daily as needed, Atrovent 4 times daily scheduled -Discontinue vancomycin as MRSA nasal swab is negative -Pulmonary note reviewed: Bronch with BAL tomorrow Coronary artery disease Ischemic cardiomyopathy with ejection fraction 55 to 60% Hypertension Dyslipidemia -Aldactone 50 mg daily, metoprolol 25 mg twice daily, Farxiga 10 mg daily, not chronically on KATIA inhibitor or ARB -Lipitor 80 mg nightly Imaging: none new Hospital course imaging: Outpatient CT chest abdomen pelvis: Subtle disease progression in the precarinal and subcarinal soft tissue extending along the right upper lobe bronchus and right suprahilar region, extensive new opacification in the superior segment of the left upper lobe measuring up to 7.5 cm with area of cavitation and a fluid level correlate for necrotizing or cavitary pneumonia possible early 3.8 cm pulmonary abscess within this region, circumferential wall thickening of the sigmoid colon Data Review: Labs reviewed from today include CBC and creatinine which are remarkable for white blood cell count 19.4, hemoglobin 8.7. MRSA nasal swab is negative. DVT prophylaxis: Lovenox Anticipated discharge date: Pending Clinical Course Anticipated discharge place: Pending Clinical Course This dictation was prepared using [employer] voice recognition software. Though every attempt is made to correct errors during dictation some may still exist. Objective - Vital Signs Vital signs: Vital Signs Temp 98.0 F 06/08/23 14:10 Pulse 84 06/08/23 14:10 Resp 16 06/08/23 14:10 BP 91/53 06/08/23 14:10 Pulse Ox 98 06/08/23 14:10 FiO2 Intake & Output 06/07/23 06/08/23 06/08/23 18:59 06:59 18:59 Intake Total 720 Balance 720 Weight 74.843 kg Intake: Oral 720 Other: # Voids 1 3 - Labs CBC & Chem 7: 06/08/23 09:11 06/08/23 09:11 Labs: Abnormal Lab Results - Last 24 Hours (Table) 06/07/23 06/08/23 06/08/23 Range/Units 17:10 09:11 11:45 WBC 19.4 H (3.8-10.6) k/uL RBC 3.19 L (4.30-5.90) m/uL Hgb 8.7 L (13.0-17.5) gm/dL Hct 29.6 L (39.0-53.0) % MCHC 29.4 L (31.0-37.0) g/dL RDW 19.4 H (11.5-15.5) % POC Glucose (mg/dL) 128 H 131 H (70-110) mg/dL Microbiology - Last 24 Hours (Table) 06/07/23 07:34 Blood Culture - Preliminary Blood 06/07/23 11:56 Gram Stain - Preliminary Sputum Sputum Culture - Preliminary 06/07/23 03:30 Nasal Screen MRSA/MSSA - Final Nasal Swab 06/06/23 16:35 Blood Culture - Preliminary Blood 06/06/23 16:50 Blood Culture - Preliminary Blood
[2023-06-08 17:43] LABS: Glucose,Whole Blood 143 mg/dL (70-110)
--- NOTE | 2023-06-08 18:50 | P.CONS ---
History of Present Illness - Reason for Consult Consult date: 06/08/23 On treatment for NSCLC Sq cell subtype Requesting physician: Leighann Rousseau - Chief Complaint SOB, cough despite abx - History of Present Illness Mr Rene is a 52 yo male pt of Dr. Hoyos who initially presented to ER 06/2020 with c/o of cough, hemoptysis intermittently for 7-10 days. CXR did not show any major abnormality. Recommended follow-up as an outpatient with his PCP and get a CT scan done. Patient did not have a PCP so finding a PCP took some time and he did put things off, as he was working and otherwise felt well. Ultimately had a CT chest 02/02/21. This showed a 8.6 x 6.8 cm soft tissue mass encasing the left hilum, contiguous with subcarinal adenopathy. This was causing mild narrowing of the left mainstem bronchus and upper lobe branches. There was also a spiculated right perihilar mass measuring 4.1 x 2.4 cm with some central cavitation. There is a 6 cm nodule in the right midlung, and another 3 mm nodule in the right base, 6 mm nodular density in the right upper lobe. Paratracheal and subcarinal adenopathy measured 2.4 cm. Referred to Pulmonary and had bronchoscopy on 02/09/21 of the right and left upper lobes. 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 Referred to Medical Oncology. Had completion of staging with MRI, which was negative. PET scan confirmed uptake in both the right suprahilar, as well as the left hilar mass, with involvement of multiple mediastinal, hilar and subcarinal nodes. Biomarker testing showed positive PD1, with TPS 3-5%. TMB was high at 26+. He was started on immunotherapy 03/27/21. He did well for 19 cycles, then developed progression and was changed to Carbo/Gemzar starting 04/27/22. He had 4 cycles, completing those on 07/07/22. Dose was reduced with cycle 2, because of hematologic toxicity, and G-CSF was added. He was admitted after cycle 4, on 07/09/22, with lower extremity swelling not responding to Lasix, acute kidney injury, and hyperkalemia. It is felt that the patient had steroid insufficiency and was treated supportively, and was discharged on Decadron with follow-up scheduled with endocrinology outpatient. At his visit on 08/03/22 CT showed a partial response, it was decided to give him a treatment break. The patient was admitted to the hospital in mid 09/05 with shortness of breath, and tachycardia. CT angiogram done during that visit was negative for PE, but noted the right-sided lung mass to be larger in size. The patient improved with treatment for pneumonia, CHF and COPD exacerbation and continued on observation. Repeat CT 11/06 showing resolution of lung opacities, and decrease in the right-sided masslike area. At his visit on 01/18/23, he reported a new right-sided headache. He had attributed this to increase in his blood pressure medication, but this is persistent despite him stopping those medicines. He also reported some increase in cough productive of whitish sputum. MRI of the brain done was negative for metastases however, imaging did show evidence of progression in the lung on the right. The patient was therefore changed to Taxotere and Cyramza, starting the same on 02/10/23. Cyramza was then held after cycle 2, due to hemoptysis, and the patient has continued on Taxotere alone. He is status post 4 cycles of sin gle agent Taxotere with GCSF last given 05/25. Recent imaging did not report any areas of new/metastatic disease. Known areas of disease slightly larger-suspect because of infection. He is currently admitted with worsening SOB and cough x 3 weeks, 2 courses of abx without improvement. He has purulent sputum, denies hemoptysis. Imaging suspicious for abscess. Pulm has seen, pt started on abx, pending further recommendations Review of Systems 10 point ROS is neg except as stated in HPI Past Medical History Past Medical History: Coronary Artery Disease (CAD), Cancer, Chest Pain / Angina, COPD, Hyperlipidemia, Hypertension, Myocardial Infarction (NH) Additional Past Medical History / Comment(s): SVT with chest pain/palpitations- chemically converted, lung cancer, pt states "I get chemo every three weeks; last chemo was May 26, 2023". Last Myocardial Infarction Date:: 2017 History of Any Multi-Drug Resistant Organisms: MRSA Year Discovered:: 12/23/2013 MDRO Source:: Face Past Surgical History: Heart Catheterization With Stent Additional Past Surgical History / Comment(s): I&D of Right inframandibular abscess. 3 cardiac stents. Past Anesthesia/Blood Transfusion Reactions: No Reported Reaction Date of Last Stent Placement:: 2017 Past Psychological History: No Psychological Hx Reported Additional Psychological History / Comment(s): Pt states he was released from [facility] recently (driving on suspended license) and during his time in [facility] he lost his job and insurance. He resides with his son. He uses no assistive devices. He no longer drives, his son takes him places. Smoking Status: Former smoker Past Alcohol Use History: None Reported Additional Past Alcohol Use History / Comment(s): Pt started smoking when he was 13 1ppd and recently quit. Drinks occasionally and eats marijuana gummies. Past Drug Use History: Marijuana Additional Drug Use History / Comment(s): Pt denies any drug use. [facility] documents marijuana. - Past Family History Father Family Medical History: No Reported History Additional Family Medical History / Comment(s): Father of "natural causes" at the age of 79yrs. Mother Family Medical History: COPD, Coronary Artery Disease (CAD) Additional Family Medical History / Comment(s): Mother is 76yrs old. She has had several MIs, 6 cardiac stents and a 4 vessel CABG. Medications and Allergies Home Medications Medication Instructions Recorded Confirmed Type Atorvastatin [Lipitor] 80 mg PO HS 03/04/21 06/06/23 History Ondansetron [Zofran] 4 mg PO Q6H PRN 05/09/22 06/06/23 History Dapagliflozin Propanediol [Farxiga] 10 mg PO DAILY #30 tab 09/01/22 06/06/23 Rx Spiriva Respimat 1.25mcg/Actuation 2 puff INHALATION RT-HS #0 09/01/22 06/06/23 Rx Mist Albuterol Inhaler [Ventolin Hfa 1 - 2 puff INHALATION RT-Q6H PRN 06/06/23 06/06/23 History Inhaler] Cholecalciferol (Vitamin D3) 50 mcg PO DAILY 06/06/23 06/06/23 History [Vitamin D3 (50 Mcg = 2000 Iu)] Hydrocodone/Acetaminophen 1 tab PO QID PRN 06/06/23 06/06/23 History [Hydrocodone/Acetaminophen 10-300 mg] Metoprolol Tartrate [Lopressor] 25 mg PO BID 06/06/23 06/06/23 History Omeprazole 40 mg PO DAILY PRN 06/06/23 06/06/23 History Prochlorperazine Maleate 10 mg PO Q6H PRN 06/06/23 06/06/23 History Spironolactone [Aldactone] 50 mg PO DAILY 06/06/23 06/06/23 History Trifluridine 1% Ophth Soln 1 drop BOTH EYES Q2H 06/06/23 06/06/23 History [Viroptic 1% Ophth Soln] dexAMETHasone [Decadron] 8 mg PO BID PRN 06/06/23 06/06/23 History valACYclovir HCL [Valtrex] 500 mg PO TID 06/06/23 06/06/23 History Allergies Allergy/AdvReac Type Severity Reaction Status Date / Time Penicillins Allergy Dyspnea & Verified 06/06/23 17:18 Hives all over Physical Exam Vitals: Vital Signs Temp Pulse Pulse Resp BP BP Pulse Ox 06/08/23 08:13 88 20 06/08/23 08:03 88 20 98 06/08/23 07:36 98.4 F 80 18 104/67 99 06/08/23 02:00 75 17 100/61 98 06/07/23 21:46 84 06/07/23 21:37 88 06/07/23 21:35 76 16 06/07/23 20:00 98.9 F 76 16 109/64 100 06/07/23 16:39 82 06/07/23 16:30 79 06/07/23 16:22 99.2 F 98 12 108/70 98 06/07/23 14:46 77 16 101/61 99 06/07/23 14:00 79 94 L 06/07/23 13:00 75 16 106/72 94 L 06/07/23 12:00 74 16 104/72 96 06/07/23 11:00 87 20 106/54 94 L 06/07/23 10:39 20 06/07/23 10:00 80 16 106/74 95 06/07/23 09:25 83 06/07/23 09:16 89 06/07/23 09:00 71 20 108/80 93 L Intake and Output 06/07/23 06/08/23 06/08/23 22:59 06:59 14:59 Intake Total 480 240 Balance 480 240 Intake: Oral 480 240 Other: # Voids 1 3 Weight 74.843 kg - Constitutional General appearance: average body habitus, cooperative, no acute distress - EENT Eyes: anicteric sclerae, EOMI ENT: hearing grossly normal - Neck Neck: no lymphadenopathy - Respiratory Respiratory: bilateral: diminished (R>L) - Cardiovascular Rhythm: regular Heart sounds: normal: S1, S2 Abnormal Heart Sounds: no systolic murmur, no diastolic murmur, no rub, no S3 Gallop, no S4 Gallop, no click, no other leg Peripheral Edema: bilateral: None - Gastrointestinal General gastrointestinal: no absent bowel sounds, no decreased bowel sounds, no distended, no hepatomegaly, no hyperactive bowel sounds, normal bowel sounds, no organomegaly, no rigid, no scaphoid, soft, no splenomegaly, no tenderness, no umbilical hernia, no ventral hernia - Integumentary Integumentary: normal - Neurologic Neurologic: CNII-XII intact - Musculoskeletal Musculoskeletal: strength equal bilaterally - Psychiatric Psychiatric: A&O x's 3, appropriate affect, intact judgment & insight Results CBC & Chem 7: 06/08/23 09:11 06/08/23 09:11 Labs: Abnormal Lab Results - Last 24 Hours (Table) 06/07/23 06/07/23 06/07/23 Range/Units 07:34 07:34 07:34 WBC 26.2 H (3.8-10.6) k/uL RBC 2.96 L (4.30-5.90) m/uL Hgb 8.2 L D (13.0-17.5) gm/dL Hct 26.9 L (39.0-53.0) % MCHC 30.4 L (31.0-37.0) g/dL RDW 19.7 H (11.5-15.5) % Sodium 134 L (137-145) mmol/L POC Glucose (mg/dL) (70-110) mg/dL Calcium 8.3 L (8.4-10.2) mg/dL Procalcitonin 0.25 H (0.02-0.09) ng/mL 06/07/23 Range/Units 17:10 WBC (3.8-10.6) k/uL RBC (4.30-5.90) m/uL Hgb (13.0-17.5) gm/dL Hct (39.0-53.0) % MCHC (31.0-37.0) g/dL RDW (11.5-15.5) % Sodium (137-145) mmol/L POC Glucose (mg/dL) 128 H (70-110) mg/dL Calcium (8.4-10.2) mg/dL Procalcitonin (0.02-0.09) ng/mL Microbiology - Last 24 Hours (Table) 06/06/23 16:35 Blood Culture - Preliminary Blood 06/06/23 16:50 Blood Culture - Preliminary Blood 06/07/23 11:56 Gram Stain - Preliminary Sputum Chest x-ray: report reviewed Assessment and Plan (1) Lung abscess Current Visit: Yes Status: Acute Priority: High Code(s): J85.2 - ABSCESS OF LUNG WITHOUT PNEUMONIA SNOMED Code(s): 99287006 (2) Squamous cell lung cancer Current Visit: No Status: Chronic Priority: Medium Code(s): C34.90 - MALIGNANT NEOPLASM OF UNSP PART OF UNSP BRONCHUS OR LUNG SNOMED Code(s): 996745398 (3) Anemia associated with chemotherapy Current Visit: Yes Status: Acute Priority: Medium Code(s): D64.81 - ANEMIA DUE TO ANTINEOPLASTIC CHEMOTHERAPY; T45.1X5A - ADVERSE EFFECT OF ANTINEOPLASTIC AND IMMUNOSUP DRUGS, INIT SNOMED Code(s): 573128952369125 (4) Leukocytosis Current Visit: Yes Status: Acute Priority: Medium Code(s): D72.829 - ELEVATED WHITE BLOOD CELL COUNT, UNSPECIFIED SNOMED Code(s): 480520263 Plan: Lung abscess -Suspicions for the same -Pulm consulted, pending recs -Abx ordered Sq cell lung cancer -Pt doing overall well on treatment. Recent imaging 05/31 did not report any areas of new/metastatic disease. Known areas of disease slightly larger-suspect because of infection -Hold next chemo until pt adequately recovered -F/U on the Chemo induced anemia -baseline Hgb 8-9 range -no recent iron studies, will order -transfuse for Hgb<7 or if symptomatic Leukocytosis -received GCSF 05/26 -Superimposed infection suspected as well -cont to monitor Doctor attests: I performed a history and physical examination of this patient, developed impression and plan of care. Discussed with dictator. I agree with dictators note, documented as a scribe.
[2023-06-08 22:34] LABS: Glucose,Whole Blood 133 mg/dL (70-110)
[2023-06-09 07:05] LABS: Glucose,Whole Blood 115 mg/dL (70-110)
[2023-06-09 07:51] LABS: African American GFR (CKD) >90 (>60 ml/min/1.73 sqM); Anion Gap 12 mmol/L; Blood Urea Nitrogen 13 mg/dL (9-20); Calcium 8.5 mg/dL (8.4-10.2); Carbon Dioxide 19 mmol/L (22-30); Chloride 105 mmol/L (98-107); Glucose 107 mg/dL (74-99); Non-African American GFR(CKD) 89 (>60 ml/min/1.73 sqM); Potassium 4.4 mmol/L (3.5-5.1); Sodium 136 mmol/L (137-145)
[2023-06-09 11:01] LABS: HCT 28.3 % (39.6-50.0); HGB 8.6 g/dL (13.0-17.0); MCH 27.4 pg (27.0-32.0); MCHC 30.4 g/dL (32.0-37.0); MCV 90.1 FL (80.0-97.0); Mean Platelet Volume 9.8 FL (9.5-12.2); NRBC Per 100 WBC 0 X 10*3/uL (0.00-0.01); Platelet Count 320 X 10*3/uL (140-440); RBC 3.14 X 10*6/uL (4.40-5.60); RDW 21.2 % (11.5-14.5); WBC 12.65 X 10*3/uL (4.50-10.00)
[2023-06-09 11:27] LABS: % Iron Saturation 16.39 (15.00-50.00); Iron 39 UG/DL (65-175); Total Iron Binding Capacity 238 UG/DL (228-460)
[2023-06-09 11:38] LABS: Vitamin B12 >1800.0 pg/mL (200.0-944.0)
[2023-06-09 11:40] LABS: Reticulocyte % 2.18 % (0.10-1.80)
[2023-06-09 11:58] LABS: Glucose,Whole Blood 95 mg/dL (70-110)
[2023-06-09] MEDS ORDERED: LIDOCAINE 2% (PF) 20 MG/ML 5 ML VIAL ONE (14:02)
[2023-06-09] MEDS ORDERED: KETAMINE HCL IN 0.9 % NACL 50 MG/5 ML SYRINGE ONE (14:02)
[2023-06-09] MEDS ORDERED: MIDAZOLAM 2 MG/2 ML VIAL ONE (14:02)
[2023-06-09] MEDS ORDERED: PROPOFOL 10 MG/ML 20 ML VIAL IV ONE (14:02)
[2023-06-09] MEDS: IV FLUID CONTINUATION 1,000 ML IV ONE ×2 (14:19→14:20)
[2023-06-09] MEDS: IV FLUID CONTINUATION 300 ML IV ONE (14:20)
[2023-06-09] MEDS ORDERED: VANCOMYCIN 1,000 MG in SODIUM CHLORIDE 0.9% 250 ML IVPB STA (14:27)
--- NOTE | 2023-06-09 14:27 | P.PN ---
Subjective Progress Note Date: 06/09/23 Patient is a 62-year-old white male with past medical history significant for squamous cell carcinoma COPD, former tobacco smoker, hypertension, hyperlipidemia, coronary artery disease with previous PCI/stent, ischemic cardiomyopathy, among other things. Patient does follow in the pulmonary office with Dr. Kumar, as the patient has history of squamous cell lung carcinoma with a left midlung mass. He also follows with his oncologist Dr. Hoyos. He currently receives chemotherapy reportedly every 21 days. Last reported dose received 05/17/23. Over the last 3 weeks he has had increasing shortness of breath, a productive cough with copious amounts of yellow to green sputum, and night sweats. Denies hemoptysis, chest pain, fevers. He has been treated on 2 different occasions with antibiotics. A CT of the chest, abdomen, and pelvis with contrast taken 06/01/2023 showed extensive new opacification of the superior segment of the left lower lobe measuring up to 7.7 cm. There were areas of air cavitation and fluid. This is concerning for necrotizing or cavitary pneumonia or possible pulmonary abscess within this region. Previously identified posterior left infrahilar disease not is well-delineated due to the new opacification mentioned previously. May be larger previously measuring 2.1 cm and currently 3.3 cm. There was also suspected subtle disease progression given slightly increased precarinal and subcarinal soft tissue. The contiguous soft tissue extended along the right upper lobe bronchus and right suprahilar region, slightly thicker as well. Patient did follow up with Dr. Juares in the pulmonary office yesterday, and he recommended going to the ER for IV antibiotics. CBC on arrival: WC count 32.2, hemoglobin 10.6, hematocrit 33.8, platelets 362. BMP on arrival: Sodium 131, potassium 4.5, chloride 96, serum bicarb 21, BUN 26, creatinine 1.23, glucose 85. Lactic was 2.1 down to 0.9. Patient has been started on a combination of clindamycin and vancomycin. 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 Denies current tobacco use. Denies alcohol use. Poor dentition, and is supposed to have some teeth pulled sometime next month. Patient is currently lying in bed, on room air, in no acute distress. Overall appearance is nontoxic. Vital signs are stable. The patient is seen today June 08, 2023 and follow-up in the observation unit. He is currently resting comfortably in bed. Awake and alert in no acute distress. He is maintaining good O2 saturations in the 90s on room air. He has normal saline at KVO. His procalcitonin was 0.25. He is continued on Rocephin, clindamycin, vancomycin. Chest x-ray shows persistent but slightly improved infiltrates in the left perihilar and right suprahilar regions. Blood and sputum cultures are pending. Count 19.4. Hemoglobin 8.7. Platelets 307. Creatinine 1.04. GFR 78. He remains afebrile. Hemodynamically stable. The patient is seen today June 09, 2023 in follow-up on the regular medical floor. He is currently sitting up in bed. Awake and alert in no acute distress. Denies any worsening shortness of breath, cough or congestion. A bit better today compared to yesterday. Blood culture revealing no growth. Sputum culture showing presumptive Staph aureus. White count 12.6. Hemoglobin 8.6. Platelets 320. Sodium 136. Potassium 4.9. Bicarb 19. BUN 13. Creatinine 0.93. Glucose 107. He is currently on clindamycin and ceftriaxone. 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 Lovenox for DVT prophylaxis. Objective - Vital Signs Vital signs: Vital Signs Temp 98.2 F 06/09/23 13:33 Pulse 81 06/09/23 13:33 Resp 18 06/09/23 13:33 BP 111/70 06/09/23 13:33 Pulse Ox 98 06/09/23 13:33 FiO2 Intake & Output 06/08/23 06/09/23 06/09/23 18:59 06:59 18:59 Intake Total 240 Balance 240 Intake: Oral 240 Other: # Voids 1 - Exam GENERAL EXAM: Alert, pleasant 62-year-old male, on room air. Comfortable in no apparent distress. HEAD: Normocephalic and atraumatic EYES: Normal reaction of pupils, equal size. Right eyes mildly erythemic, with clear drainage bilaterally. NOSE: Clear with pink turbinates. THROAT: No erythema or exudates. Poor dentition. NECK: No masses, no JVD. CHEST: No chest wall deformity. LUNGS: Equal air entry with few scattered rhonchi. No conversational dyspnea CVS: S1 and S2 normal with no audible murmur, regular rhythm. No extra heart sounds ABDOMEN: No hepatosplenomegaly, active bowel sounds, no guarding or rigidity. SPINE: No scoliosis or deformity SKIN: No rashes CENTRAL NERVOUS SYSTEM: No focal deficits, tone is normal in all 4 extremities. EXTREMITIES: There is no peripheral edema, clubbing, or cyanosis. Peripheral pulses are intact. - Labs CBC & Chem 7: 06/09/23 06:44 06/09/23 06:44 Labs: Abnormal Lab Results - Last 24 Hours (Table) 06/08/23 06/08/23 06/09/23 Range/Units 17:41 22:32 06:44 WBC 12.65 H (4.50-10.00) X 10*3/uL RBC 3.14 L (4.40-5.60) X 10*6/uL Hgb 8.6 L (13.0-17.0) g/dL Hct 28.3 L (39.6-50.0) % MCHC 30.4 L (32.0-37.0) g/dL RDW 21.2 H (11.5-14.5) % Retic Count 2.18 H (0.10-1.80) % Sodium (137-145) mmol/L Carbon Dioxide (22-30) mmol/L Glucose (74-99) mg/dL POC Glucose (mg/dL) 143 H 133 H (70-110) mg/dL Iron (65-175) UG/DL Transferrin (204.0-354.0) mg/dL Ferritin (22.0-322.0) ng/mL Vitamin B12 (200.0-944.0) pg/mL 06/09/23 06/09/23 06/09/23 Range/Units 06:44 06:44 07:03 WBC (4.50-10.00) X 10*3/uL RBC (4.40-5.60) X 10*6/uL Hgb (13.0-17.0) g/dL Hct (39.6-50.0) % MCHC (32.0-37.0) g/dL RDW (11.5-14.5) % Retic Count (0.10-1.80) % Sodium 136 L (137-145) mmol/L Carbon Dioxide 19 L (22-30) mmol/L Glucose 107 H (74-99) mg/dL POC Glucose (mg/dL) 115 H (70-110) mg/dL Iron 39 L (65-175) UG/DL Transferrin 170.0 L (204.0-354.0) mg/dL Ferritin 454.0 H (22.0-322.0) ng/mL Vitamin B12 >1800.0 H (200.0-944.0) pg/mL Microbiology - Last 24 Hours (Table) 06/07/23 11:56 Gram Stain - Preliminary Sputum Sputum Culture - Preliminary Presumptive Staph aureus 06/06/23 16:35 Blood Culture - Preliminary Blood 06/06/23 16:50 Blood Culture - Preliminary Blood 06/07/23 07:34 Blood Culture - Preliminary Blood Assessment and Plan Assessment: Suspected pulmonary abscess, There is an extensive new opacification of the superior segment of the left lower lobe measuring up to 7.7 cm. There were areas of air cavitation and fluid. This is concerning for necrotizing/cavitary pneumonia or possible developing pulmonary abscess within this region. Urine culture revealing presumptive MRSA. Status post bronchoscopy with BAL of the right upper and left lower lobes on 06/09/2023. Cultures pending. Metastatic squamous cell carcinoma, likely with disease progression. CT of the chest, abdomen, and pelvis with contrast taken 06/01/2023 showed The above mentioned findings. The previously identified posterior left infrahilar disease, not is well-delineated due to the new opacification mentioned previously. May be larger, previously measuring 2.1 cm and currently 3.3 cm. There was also suspected subtle disease progression given slightly increased precarinal and subcarinal soft tissue. The contiguous soft tissue extended along the right upper lobe bronchus and right suprahilar region, slightly thicker as well. Reportedly on systemic chemotherapy directed by his oncologist. Acute leukocytosis, secondary to above Chronic anemia History of hypertension History of hyperlipidemia History of coronary artery disease with previous PCI/stent History of ischemic cardiomyopathy, most recent echocardiogram available from 08/27/2022 estimates an impaired left ventricular systolic ejection fraction of 35%. Chronic obstructive pulmonary disease, stable Former tobacco dependance Reportedly diagnosed with ocular herpes, on valacyclovir outpatient, and this was continued Plan: The patient was seen and evaluated Chest x-ray and labs reviewed Sputum culture showing presumptive MRSA Add vancomycin Continue ceftriaxone and clindamycin Will plan for bronchoscopy with BAL of the right upper and left lower lobes today We will continue to follow I have personally seen and examined the patient, performed the documentation and the assessment and plan as written. Number of minutes spent on the visit: 10.
--- NOTE | 2023-06-09 15:06 | P.PN ---
Subjective Progress Note Date: 06/09/23 Hospital course: Patient is a very pleasant 62-year-old male with squamous cell carcinoma of the lung, COPD, hypertension, dyslipidemia, coronary artery disease status post PCI, ischemic cardiomyopathy with last known ejection fraction 55 to 60%, multiple other comorbid conditions who presented to the emergency department with complaints of worsening shortness of breath over the last 3 weeks. Patient has been undergoing outpatient chemotherapy every 21 days his last dose being received on 05/17/2023. [facility] and underwent a CT chest/abdomen/pelvis on 05/31 which demonstrated new opacification of the superior segment of the left upper lobe measuring 7.5 cm with a air cavitation and fluid concerning for possible pulmonary abscess versus cavitary pneumonia. He was seen by Dr. Gonzalez in the pulmonary office on 06/06/2023 and was referred to the ER for possible admission and IV antibiotics. On arrival to the ER his vital signs were remarkable for a pulse of 110. Admission laboratory analysis was remarkable for white blood cell count of 32, hemoglobin 10, sodium 131, BUN 26, and lactic acid of 2.1. Influenza A/B/RSV/COVID-19 testing was negative. Chest x-ray demonstrated increased vascular markings in the right upper lobe, left hilar opacification. Patient was subsequently admitted and started on clindamycin and Vanco mycin. He also tolerated a dose of Rocephin and Levaquin in the emergency department. Pulmonary was consulted. Physical exam: Patient seen and fully evaluated at bedside this morning. Patient reports he is just trying to get some rest before his bronchoscopy later today. He denies having any pain or complaints, denies having any shortness of breath, chest pain, or any other complaints at this time. Vital signs reviewed and stable. General: Nontoxic, no distress and appears stated age. Derm: Skin warm and dry, normal coloration for ethnicity. Head: Atraumatic, normocephalic and symmetric. Eyes: EOMs intact, no lid lag, and anicteric sclera Mouth: no lip lesions, mucus membranes moist Cardiovascular: regular rate and rhythm with normal S1S2, no murmur, positive posterior tibial pulses bilaterally, and cap refill < 2 seconds. Lungs: Respirations even, regular, and unlabored on room air. Lungs CTA bilaterally, no rhonchi, no rales, no wheezing, and no accessory muscle usage. Abdominal: soft, nontender to palpation, no guarding, no appreciable organomegaly Ext: ROM intact. No gross muscle atrophy, no edema, no contractures Neuro: Speech clear, face symmetrical and CN II-XII grossly intact with no noted focal neuro deficits Psych: Alert and oriented to person, place, time, and situation. Appropriate and pleasant affect. Assessment and Plan of Care: Pulmonary abscess, possible empyema with sepsis is based on white blood cell count and tachycardia COPD without exacerbation -Squamous cell carcinoma of the lung -Continue Rocephin 2 g IV piggyback every 24 hours day #4 and clindamycin 600 mg IV every 8 hours day #3 -Hematology/oncology following recommending holding next chemotherapy treatment until adequately recovered and follow-up outpatient in their office on 06/23/2023. -Sputum culture preliminary resulting positive for Staph aureus pending final culture and sensitivity report. -Continue DuoNebs scheduled 4 times daily and as needed for shortness of breath and/or wheezing.along with Atrovent 4 times daily scheduled -Pulmonary following and taking patient for bronchoscopy with BAL later today. Coronary artery disease Ischemic cardiomyopathy with ejection fraction 55 to 60% Hypertension Dyslipidemia -Continue daily medication regimen with Aldactone 50 mg daily, metoprolol 25 mg twice daily, Farxiga 10 mg daily, not chronically on KATIA inhibitor or ARB -Continue Lipitor 80 mg nightly Imaging reviewed: -No new imaging reviewed today Hospital course imaging: -Outpatient CT chest abdomen pelvis: Subtle disease progression in the precarinal and subcarinal soft tissue extending along the right upper lobe bronchus and right suprahilar region, extensive new opacification in the superior segment of the left upper lobe measuring up to 7.5 cm with area of cavitation and a fluid level correlate for necrotizing or cavitary pneumonia possible early 3.8 cm pulmonary abscess within this region, circumferential wall thickening of the sigmoid colon Data Reviewed: -Labs reviewed from today include CBC and creatinine which are remarkable for white blood cell count 19.4, hemoglobin 8.7. MRSA nasal swab is negative. -Vital signs reviewed. Blood pressure 102/60, heart rate 85, respiratory rate 20, temp 97.7 F, and SpO2 of 97% on room air. CODE STATUS: Full code DVT prophylaxis: Lovenox Anticipated discharge date: Clinical course to determine Anticipated discharge place: Clinical course to determine Patient was seen independently by Nurse Pracitioner. This document was prepared using [employer] dictation software. Please allow for errors in supervisor boat outfitting, while rare they do occur. I reviewed the documentation as provided by the GREGOR above, who is the original author of this note. I agree with the documented assessment and plan, with the following changes: none Objective - Vital Signs Vital signs: Vital Signs Temp 97.7 F 06/09/23 07:05 Pulse 85 06/09/23 07:05 Resp 20 06/09/23 07:05 BP 102/60 06/09/23 07:05 Pulse Ox 97 06/09/23 08:07 FiO2 Intake & Output 06/08/23 06/09/23 06/09/23 18:59 06:59 18:59 Intake Total 240 Balance 240 Intake: Oral 240 Other: # Voids 1 - Labs CBC & Chem 7: 06/11/23 04:16 06/11/23 04:16 Labs: Abnormal Lab Results - Last 24 Hours (Table) 06/08/23 06/08/23 06/08/23 Range/Units 09:11 11:45 17:41 WBC 19.4 H (3.8-10.6) k/uL RBC 3.19 L (4.30-5.90) m/uL Hgb 8.7 L (13.0-17.5) gm/dL Hct 29.6 L (39.0-53.0) % MCHC 29.4 L (31.0-37.0) g/dL RDW 19.4 H (11.5-15.5) % Sodium (137-145) mmol/L Carbon Dioxide (22-30) mmol/L Glucose (74-99) mg/dL POC Glucose (mg/dL) 131 H 143 H (70-110) mg/dL 06/08/23 06/09/23 06/09/23 Range/Units 22:32 06:44 07:03 WBC (3.8-10.6) k/uL RBC (4.30-5.90) m/uL Hgb (13.0-17.5) gm/dL Hct (39.0-53.0) % MCHC (31.0-37.0) g/dL RDW (11.5-15.5) % Sodium 136 L (137-145) mmol/L Carbon Dioxide 19 L (22-30) mmol/L Glucose 107 H (74-99) mg/dL POC Glucose (mg/dL) 133 H 115 H (70-110) mg/dL Microbiology - Last 24 Hours (Table) 06/06/23 16:35 Blood Culture - Preliminary Blood 06/06/23 16:50 Blood Culture - Preliminary Blood 06/07/23 07:34 Blood Culture - Preliminary Blood 06/07/23 11:56 Gram Stain - Preliminary Sputum Sputum Culture - Preliminary 06/07/23 03:30 Nasal Screen MRSA/MSSA - Final Nasal Swab
[2023-06-09] MEDS: VANCOMYCIN 1,250 MG in SODIUM CHLORIDE 0.9% 250 ML IVPB SCH (15:07)
[2023-06-09 17:08] LABS: Glucose,Whole Blood 115 mg/dL (70-110)
[2023-06-09 20:29] LABS: Glucose,Whole Blood 157 mg/dL (70-110)
--- NOTE | 2023-06-09 21:52 | PCN ---
PROCEDURE NOTE PROCEDURES: Bronchoscopy, airway examination, therapeutic lavage, BAL. We did BAL of the right upper lobe and left lower lobe. PREOPERATIVE DIAGNOSIS: Lung cancer and lung abscess. POSTOPERATIVE DIAGNOSIS: Lung cancer and lung abscess. There was informed consent and universal timeout. Anesthesia provided monitored anesthesia care. The patient's procedure took place in room #3. DESCRIPTION OF PROCEDURE: After the patient was adequately sedated and being fully monitored, the bronchoscope was inserted without difficulty through the right nostril. It passed through the right nasopharynx into the oropharynx. The hypopharynx was identified. There were secretions noted throughout the hypopharynx. They were suctioned. The hypopharyngeal structures including anterior commissure, true cords, false cords, arytenoids, piriform sinuses right and left, vallecula, epiglottis, all appeared normal. After topicalization, the bronchoscope was pushed through the glottic opening into the trachea. The trachea appeared relatively normal, although it was minimally tortuous. There was no dominant mass or tumor. There were secretions noted in the distal trachea. Tracheal teresa was sharp. Next, we did a thorough evaluation of both lungs. After topicalization of the right mainstem and left mainstem, the right lung was looked at first. The right middle lobe and right lower lobe appeared relatively normal. This included the 2 segments of the right middle lobe and 5 segments of the right lower lobe. There were some secretions noted. They were suctioned with the aid of saline lavage. There was no dominant mass or tumor. The entrance into the right upper lobe was distinctly abnormal. The mucosa was thickened and regular. The opening to the right upper lobe was very narrowed. I could get into the right upper lobe and C3 segment. There were secretions noted throughout. There was no bleeding. There was no dominant mass. On the left side, the left upper lobe proper and lingula, including there were 2 segments each, were appeared normal. There were some secretions. They were suctioned without difficulty. The abnormalities were primarily in the left lower lobe. I could not actually get into the left lower lobe to see the left upper lobe proper, the left lower lobe proper, or the superior basal segment of the left lower lobe. The mucosa was very heaped and irregular. Obviously, it was quite abnormal. There was some mucosal friability. There was diffuse airway erythema and hyperemia. We did a formal BAL of the right upper lobe and a formal BAL of the left lower lobe. The return from the left lower lobe was limited because I could not really wedged the bronchoscope into the left lower lobe. The patient tolerated the procedure well. Additional secretions were suctioned and the bronchoscope was withdrawn. The patient will be recovered. DEVYN / ELVI: [id number] /
[2023-06-09 22:03] LABS: Appearance,BF Blood Tinged (Clear); RBC, Body Fluid 3850 /UL (0-2000)
[2023-06-10 07:00] LABS: Glucose,Whole Blood 91 mg/dL (70-110)
[2023-06-10 08:20] LABS: African American GFR (CKD) >90 (>60 ml/min/1.73 sqM); Non-African American GFR(CKD) >90 (>60 ml/min/1.73 sqM)
[2023-06-10 09:19] LABS: Nucleated Cells, Body Fluid 1250 /UL
[2023-06-10 11:45] LABS: ALT 18 U/L (4-49); AST 25 U/L (17-59); African American GFR (CKD) >90 (>60 ml/min/1.73 sqM); Albumin 3.1 g/dL (3.5-5.0); Alkaline Phosphatase 129 U/L (38-126); Anion Gap 4 mmol/L; Blood Urea Nitrogen 13 mg/dL (9-20); Calcium 8.6 mg/dL (8.4-10.2); Carbon Dioxide 25 mmol/L (22-30); Chloride 105 mmol/L (98-107); Globulin 3.1 g/dL; Glucose 84 mg/dL (74-99); Magnesium 1.8 mg/dL (1.6-2.3); Non-African American GFR(CKD) >90 (>60 ml/min/1.73 sqM); Potassium 4.7 mmol/L (3.5-5.1); Sodium 134 mmol/L (137-145); Total Bilirubin 0.3 mg/dL (0.2-1.3); Total Protein 6.2 g/dL (6.3-8.2)
[2023-06-10 11:48] LABS: Glucose,Whole Blood 123 mg/dL (70-110)
[2023-06-10 12:02] LABS: Anisocytosis Slight; HCT 30.3 % (39.0-53.0); Hypochromasia Marked; MCHC 29.6 g/dL (31.0-37.0); MCV 91.1 fL (80.0-100.0); Mean Platelet Volume 8.4; Platelet Count 301 k/uL (150-450); RBC 3.33 m/uL (4.30-5.90); RDW 19.8 % (11.5-15.5); WBC 11.6 k/uL (3.8-10.6)
--- NOTE | 2023-06-10 13:02 | P.PN ---
Subjective Progress Note Date: 06/10/23 Patient is a 62-year-old white male with past medical history significant for squamous cell carcinoma COPD, former tobacco smoker, hypertension, hyperlipidemia, coronary artery disease with previous PCI/stent, ischemic cardiomyopathy, among other things. Patient does follow in the pulmonary office with Dr. Kumar, as the patient has history of squamous cell lung carcinoma with a left midlung mass. He also follows with his oncologist Dr. Hoyos. He currently receives chemotherapy reportedly every 21 days. Last reported dose received 05/17/23. Over the last 3 weeks he has had increasing shortness of breath, a productive cough with copious amounts of yellow to green sputum, and night sweats. Denies hemoptysis, chest pain, fevers. He has been treated on 2 different occasions with antibiotics. A CT of the chest, abdomen, and pelvis with contrast taken 06/01/2023 showed extensive new opacification of the superior segment of the left lower lobe measuring up to 7.7 cm. There were areas of air cavitation and fluid. This is concerning for necrotizing or cavitary pneumonia or possible pulmonary abscess within this region. Previously identified posterior left infrahilar disease not is well-delineated due to the new opacification mentioned previously. May be larger previously measuring 2.1 cm and currently 3.3 cm. There was also suspected subtle disease progression given slightly increased precarinal and subcarinal soft tissue. The contiguous soft tissue extended along the right upper lobe bronchus and right suprahilar region, slightly thicker as well. Patient did follow up with Dr. Juares in the pulmonary office yesterday, and he recommended going to the ER for IV antibiotics. CBC on arrival: WC count 32.2, hemoglobin 10.6, hematocrit 33.8, platelets 362. BMP on arrival: Sodium 131, potassium 4.5, chloride 96, serum bicarb 21, BUN 26, creatinine 1.23, glucose 85. Lactic was 2.1 down to 0.9. Patient has been started on a combination of clindamycin and vancomycin. 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 Denies current tobacco use. Denies alcohol use. Poor dentition, and is supposed to have some teeth pulled sometime next month. Patient is currently lying in bed, on room air, in no acute distress. Overall appearance is nontoxic. Vital signs are stable. The patient is seen today June 08, 2023 and follow-up in the observation unit. He is currently resting comfortably in bed. Awake and alert in no acute distress. He is maintaining good O2 saturations in the 90s on room air. He has normal saline at KVO. His procalcitonin was 0.25. He is continued on Rocephin, clindamycin, vancomycin. Chest x-ray shows persistent but slightly improved infiltrates in the left perihilar and right suprahilar regions. Blood and sputum cultures are pending. Count 19.4. Hemoglobin 8.7. Platelets 307. Creatinine 1.04. GFR 78. He remains afebrile. Hemodynamically stable. The patient is seen today June 09, 2023 in follow-up on the regular medical floor. He is currently sitting up in bed. Awake and alert in no acute distress. Denies any worsening shortness of breath, cough or congestion. A bit better today compared to yesterday. Blood culture revealing no growth. Sputum culture showing presumptive Staph aureus. White count 12.6. Hemoglobin 8.6. Platelets 320. Sodium 136. Potassium 4.9. Bicarb 19. BUN 13. Creatinine 0.93. Glucose 107. He is currently on clindamycin and ceftriaxone. 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 Lovenox for DVT prophylaxis. The patient is seen today June 10, 2023 in follow-up on the regular medical floor. He is awake and alert in no acute distress. Resting comfortably in bed. Feeling quite a bit better today compared to yesterday. Continues to maintain good O2 saturations in the 90s on room air. He did undergo bronchoscopy with BAL of the right upper and left lower lobes. Cultures pending. He is continued on DuoNeb inhalations, Tessalon Perles, Decadron, Mucinex. He remains on antibiotics in the form of vancomycin, clindamycin, ceftriaxone along with valacyclovir. Lovenox for DVT prophylaxis. Sputum culture was positive for methicillin sensitive staphylococcus aureus and beta-hemolytic strep group C. White count 11.6. Hemoglobin 9.0. Platelets 301. Sodium 134. Potassium 4.7. Bicarb 25. BUN 13. Creatinine 0.77. Glucose 84. Objective - Vital Signs Vital signs: Vital Signs Temp 98.3 F 06/10/23 07:17 Pulse 88 06/10/23 07:17 Resp 20 06/10/23 07:17 BP 107/73 06/10/23 07:17 Pulse Ox 97 06/10/23 07:17 FiO2 Intake & Output 06/09/23 06/10/23 06/10/23 18:59 06:59 18:59 Intake Total 500 Balance 500 Intake: IV 150 Intake, IV Titration 350 Amount Clindamycin 600 mg In 50 Dextrose 5% in Water 50 ml @ 50 mls/hr IVPB Q8HR [facility] Rx#:[id number] Vancomycin 1,250 mg In 250 Sodium Chloride 0.9% 250 ml @ 125 mls/hr IVPB Q12H [facility] Rx#:[id number] cefTRIAXone 2 gm In 50 Sodium Chloride 0.9% 50 ml @ 100 mls/hr IVPB Q24HR [facility] Rx#:[id number] Other: # Voids 3 - Exam GENERAL EXAM: Alert, pleasant 62-year-old male, resting comfortably in bed, on room air. In no apparent distress. HEAD: Normocephalic and atraumatic EYES: Normal reaction of pupils, equal size. Right eyes mildly erythemic, with clear drainage bilaterally. NOSE: Clear with pink turbinates. THROAT: No erythema or exudates. Poor dentition. NECK: No masses, no JVD. CHEST: No chest wall deformity. LUNGS: Equal air entry with few scattered rhonchi. No conversational dyspnea CVS: S1 and S2 normal with no audible murmur, regular rhythm. No extra heart sounds ABDOMEN: No hepatosplenomegaly, active bowel sounds, no guarding or rigidity. SPINE: No scoliosis or deformity SKIN: No rashes CENTRAL NERVOUS SYSTEM: No focal deficits, tone is normal in all 4 extremities. EXTREMITIES: There is no peripheral edema, clubbing, or cyanosis. Peripheral pulses are intact. - Labs CBC & Chem 7: 06/10/23 07:10 06/10/23 07:10 Labs: Abnormal Lab Results - Last 24 Hours (Table) 06/09/23 06/09/23 06/09/23 Range/Units 14:00 17:07 20:26 WBC (3.8-10.6) k/uL RBC (4.30-5.90) m/uL Hgb (13.0-17.5) gm/dL Hct (39.0-53.0) % MCHC (31.0-37.0) g/dL RDW (11.5-15.5) % Sodium (137-145) mmol/L POC Glucose (mg/dL) 115 H 157 H (70-110) mg/dL Alkaline Phosphatase (38-126) U/L Total Protein (6.3-8.2) g/dL Albumin (3.5-5.0) g/dL Fluid Appearance Blood Tinged A (Clear) Fluid RBC 3850 H (0-2000) /uL 06/10/23 06/10/23 06/10/23 Range/Units 07:10 07:10 11:46 WBC 11.6 H (3.8-10.6) k/uL RBC 3.33 L (4.30-5.90) m/uL Hgb 9.0 L (13.0-17.5) gm/dL Hct 30.3 L (39.0-53.0) % MCHC 29.6 L (31.0-37.0) g/dL RDW 19.8 H (11.5-15.5) % Sodium 134 L (137-145) mmol/L POC Glucose (mg/dL) 123 H (70-110) mg/dL Alkaline Phosphatase 129 H (38-126) U/L Total Protein 6.2 L (6.3-8.2) g/dL Albumin 3.1 L (3.5-5.0) g/dL Fluid Appearance (Clear) Fluid RBC (0-2000) /uL Microbiology - Last 24 Hours (Table) 06/09/23 14:00 Gram Stain - Preliminary Bronchoalviolar Lavage - Left Bronchial Washings Culture - Preliminary 06/07/23 11:56 Gram Stain - Final Sputum Sputum Culture - Final Staphylococcus aureus Beta Hemolytic Strep Group C 06/09/23 14:00 Gram Stain - Preliminary Bronchoalviolar Lavage - Right 06/06/23 16:35 Blood Culture - Preliminary Blood 06/06/23 16:50 Blood Culture - Preliminary Blood 06/07/23 07:34 Blood Culture - Preliminary Blood Assessment and Plan Assessment: Suspected pulmonary abscess, There is an extensive new opacification of the superior segment of the left lower lobe measuring up to 7.7 cm. There were areas of air cavitation and fluid. This is concerning for necrotizing/cavitary pneumonia or possible developing pulmonary abscess within this region. Sputum culture revealing MSSA. Status post bronchoscopy with BAL of the right upper and left lower lobes on 06/09/2023. Cultures pending. Metastatic squamous cell carcinoma, likely with disease progression. CT of the chest, abdomen, and pelvis with contrast taken 06/01/2023 showed The above mentioned findings. The previously identified posterior left infrahilar disease, not is well-delineated due to the new opacification mentioned previously. May be larger, previously measuring 2.1 cm and currently 3.3 cm. There was also s uspected subtle disease progression given slightly increased precarinal and subcarinal soft tissue. The contiguous soft tissue extended along the right upper lobe bronchus and right suprahilar region, slightly thicker as well. Reportedly on systemic chemotherapy directed by his oncologist. Acute leukocytosis, secondary to above, improving Chronic anemia, current hemoglobin 9.0 History of hypertension History of hyperlipidemia History of coronary artery disease with previous PCI/stent History of ischemic cardiomyopathy, most recent echocardiogram available from 08/27/2022 estimates an impaired left ventricular systolic ejection fraction of 35%. Chronic obstructive pulmonary disease, stable Former tobacco dependance Reportedly diagnosed with ocular herpes, on valacyclovir outpatient, and this was continued Plan: The patient was seen and evaluated Medications and labs reviewed Sputum culture showing MSSA Discontinue vancomycin Continue ceftriaxone and clindamycin Bronchoscopy with BAL yesterday, cultures pending This patient was seen independently by the pulmonary nurse practitioner addressing pulmonary issues I have personally seen and examined the patient, performed the documentation and the assessment and plan as written. Number of minutes spent on the visit: 25.
[2023-06-10 15:42] VITALS: RESP 16
--- NOTE | 2023-06-10 17:07 | P.PN ---
Subjective Progress Note Date: 06/10/23 Hospital course: Patient is a very pleasant 62-year-old male with squamous cell carcinoma of the lung, COPD, hypertension, dyslipidemia, coronary artery disease status post PCI, ischemic cardiomyopathy with last known ejection fraction 55 to 60%, multiple other comorbid conditions who presented to the emergency department with complaints of worsening shortness of breath over the last 3 weeks. Patient has been undergoing outpatient chemotherapy every 21 days his last dose being received on 05/17/2023. He was following with Dr. Gonzalez in the outpatient [facility] and underwent a CT chest/abdomen/pelvis on 05/31 which demonstrated new opacification of the superior segment of the left upper lobe measuring 7.5 cm with a air cavitation and fluid concerning for possible pulmonary abscess versus cavitary pneumonia. He was seen by Dr. Gonzalez in the pulmonary office on 06/06/2023 and was referred to the ER for possible admission and IV antibiotics. On arrival to the ER his vital signs were remarkable for a pulse of 110. Admission laboratory analysis was remarkable for white blood cell count of 32, hemoglobin 10, sodium 131, BUN 26, and lactic acid of 2.1. Influenza A/B/RSV/COVID-19 testing was negative. Chest x-ray demonstrated increased vascular markings in the right upper lobe, left hilar opacification. Patient was subsequently admitted and started on clindamycin and Vanco mycin. He also tolerated a dose of Rocephin and Levaquin in the emergency department. Pulmonary was consulted. Physical exam: Patient seen and fully evaluated at bedside this morning. He reports feeling much better this morning. Patient remains on IV antibiotics while awaiting final culture results. He denies having any headache, lightheadedness, dizziness, chest pain, palpitations, shortness of breath, or any reports of pain at this time. Patient tolerating oral intake and denies having any further needs or concerns at this time. Vital signs reviewed and stable. General: Nontoxic, no distress and appears stated age. Derm: Skin warm and dry, normal coloration for ethnicity. Head: Atraumatic, normocephalic and symmetric. Eyes: EOMs intact, no lid lag, and anicteric sclera Mouth: no lip lesions, mucus membranes moist Cardiovascular: regular rate and rhythm with normal S1S2, no murmur, positive posterior tibial pulses bilaterally, and cap refill < 2 seconds. Lungs: Respirations even, regular, and unlabored on room air. Lungs CTA bilaterally, no rhonchi, no rales, no wheezing, and no accessory muscle usage. Abdominal: soft, nontender to palpation, no guarding, no appreciable organomegaly Ext: ROM intact. No gross muscle atrophy, no edema, no contractures Neuro: Speech clear, face symmetrical and CN II-XII grossly intact with no noted focal neuro deficits Psych: Alert and oriented to person, place, time, and situation. Appropriate and pleasant affect. Assessment and Plan of Care: Pulmonary abscess, possible empyema with sepsis based on white blood cell count and tachycardia COPD without exacerbation -Squamous cell carcinoma of the lung -Pulmonology following starting patient on vancomycin in addition to clindamycin and Rocephin. -Patient underwent bronchoscopy with BAL of the right upper lobe and left lower lobe on 06/09/2023. Bronchioloalveolar lavage specimen was sent to lab for analysis. -Continue IV antibiotics with Rocephin 2 g IV piggyback every 24 hours day #5 and clindamycin 600 mg IV every 8 hours day #4 and vancomycin 1250 mg every 12 hours day #2. -Hematology/oncology following recommending holding next chemotherapy treatment until adequately recovered and follow-up outpatient in their office on 06/23/2023. -Sputum culture was positive for Staphylococcus aureus and beta-hemolytic strep group C. -Bronchoalveolar lavage culture sent to lab for analysis and currently pending results. -Blood cultures showing no growth to date. -Continue DuoNebs scheduled 4 times daily and as needed for shortness of breath and/or wheezing.along with Atrovent 4 times daily scheduled -Pulmonary following and taking patient for bronchoscopy with BAL later today. Coronary artery disease Ischemic cardiomyopathy with ejection fraction 55 to 60% Hypertension Dyslipidemia -Continue daily medication regimen with Aldactone 50 mg daily, metoprolol 25 mg twice daily, Farxiga 10 mg daily, not chronically on KATIA inhibitor or ARB -Continue Lipitor 80 mg nightly Imaging reviewed: -No new imaging reviewed today Hospital course imaging: -Outpatient CT chest abdomen pelvis: Subtle disease progression in the precarinal and subcarinal soft tissue extending along the right upper lobe bronchus and right suprahilar region, extensive new opacification in the superior segment of the left upper lobe measuring up to 7.5 cm with area of cavitation and a fluid level correlate for necrotizing or cavitary pneumonia possible early 3.8 cm pulmonary abscess within this region, circumferential wall thickening of the sigmoid colon Data Reviewed: -Labs reviewed. CBC showing leukocytosis with WBC count of 11.6 and normocytic anemia with hemoglobin of 9.0. BMP revealing mild hyponatremia with sodium of 134 otherwise unremarkable. Magnesium 1.8. Liver profile showing elevated alkaline phosphatase of 129. -Vital signs reviewed. Blood pressure 107/73, heart rate 88, respiratory rate 20, temp 98.3 F, and SpO2 of 97% on room air. CODE STATUS: Full code DVT prophylaxis: Lovenox Anticipated discharge date: Clinical course to determine Anticipated discharge place: Clinical course to determine Patient was seen independently by Nurse Pracitioner. This document was prepared using [employer] dictation software. Please allow for errors in photo specialist, while rare they do occur. Tony Vazquez NP rendered care for this patient independently, reviewed the findings and plan as documented in the note above. I did not physically speak with or examine the patient on this date. Objective - Vital Signs Vital signs: Vital Signs Temp 98.3 F 06/10/23 07:17 Pulse 88 06/10/23 07:17 Resp 20 06/10/23 07:17 BP 107/73 06/10/23 07:17 Pulse Ox 97 06/10/23 07:17 FiO2 Intake & Output 06/09/23 06/10/23 06/10/23 18:59 06:59 18:59 Intake Total 500 Balance 500 Intake: IV 150 Intake, IV Titration 350 Amount Clindamycin 600 mg In 50 Dextrose 5% in Water 50 ml @ 50 mls/hr IVPB Q8HR [facility] Rx#:[id number] Vancomycin 1,250 mg In 250 Sodium Chloride 0.9% 250 ml @ 125 mls/hr IVPB Q12H [facility] Rx#:[id number] cefTRIAXone 2 gm In 50 Sodium Chloride 0.9% 50 ml @ 100 mls/hr IVPB Q24HR [facility] Rx#:[id number] Other: # Voids 3 - Labs CBC & Chem 7: 06/11/23 04:16 06/11/23 04:16 Labs: Abnormal Lab Results - Last 24 Hours (Table) 06/09/23 06/09/23 06/09/23 Range/Units 06:44 06:44 14:00 WBC 12.65 H (4.50-10.00) X 10*3/uL RBC 3.14 L (4.40-5.60) X 10*6/uL Hgb 8.6 L (13.0-17.0) g/dL Hct 28.3 L (39.6-50.0) % MCHC 30.4 L (32.0-37.0) g/dL RDW 21.2 H (11.5-14.5) % Retic Count 2.18 H (0.10-1.80) % POC Glucose (mg/dL) (70-110) mg/dL Iron 39 L (65-175) UG/DL Transferrin 170.0 L (204.0-354.0) mg/dL Ferritin 454.0 H (22.0-322.0) ng/mL Vitamin B12 >1800.0 H (200.0-944.0) pg/mL Fluid Appearance Blood Tinged A (Clear) 06/09/23 06/09/23 Range/Units 17:07 20:26 WBC (4.50-10.00) X 10*3/uL RBC (4.40-5.60) X 10*6/uL Hgb (13.0-17.0) g/dL Hct (39.6-50.0) % MCHC (32.0-37.0) g/dL RDW (11.5-14.5) % Retic Count (0.10-1.80) % POC Glucose (mg/dL) 115 H 157 H (70-110) mg/dL Iron (65-175) UG/DL Transferrin (204.0-354.0) mg/dL Ferritin (22.0-322.0) ng/mL Vitamin B12 (200.0-944.0) pg/mL Fluid Appearance (Clear) Microbiology - Last 24 Hours (Table) 06/06/23 16:35 Blood Culture - Preliminary Blood 06/06/23 16:50 Blood Culture - Preliminary Blood 06/09/23 14:00 Gram Stain - Preliminary Bronchoalviolar Lavage - Left 06/07/23 07:34 Blood Culture - Preliminary Blood 06/07/23 11:56 Gram Stain - Preliminary Sputum Sputum Culture - Preliminary Presumptive Staph aureus
[2023-06-10 17:10] LABS: Glucose,Whole Blood 111 mg/dL (70-110)
[2023-06-10 20:13] LABS: Glucose,Whole Blood 166 mg/dL (70-110)
[2023-06-11 07:09] LABS: Glucose,Whole Blood 95 mg/dL (70-110)
[2023-06-11] MEDS: LACTATED RINGERS 1,000 ML IV SCH (07:51)
--- NOTE | 2023-06-11 07:56 | P.PN ---
Subjective Progress Note Date: 06/11/23 Patient is a 62-year-old white male with past medical history significant for squamous cell carcinoma COPD, former tobacco smoker, hypertension, hyperlipidemia, coronary artery disease with previous PCI/stent, ischemic cardiomyopathy, among other things. Patient does follow in the pulmonary office with Dr. Kumar, as the patient has history of squamous cell lung carcinoma with a left midlung mass. He also follows with his oncologist Dr. Hoyos. He currently receives chemotherapy reportedly every 21 days. Last reported dose received 05/17/23. Over the last 3 weeks he has had increasing shortness of breath, a productive cough with copious amounts of yellow to green sputum, and night sweats. Denies hemoptysis, chest pain, fevers. He has been treated on 2 different occasions with antibiotics. A CT of the chest, abdomen, and pelvis with contrast taken 06/01/2023 showed extensive new opacification of the superior segment of the left lower lobe measuring up to 7.7 cm. There were areas of air cavitation and fluid. This is concerning for necrotizing or cavitary pneumonia or possible pulmonary abscess within this region. Previously identified posterior left infrahilar disease not is well-delineated due to the new opacification mentioned previously. May be larger previously measuring 2.1 cm and currently 3.3 cm. There was also suspected subtle disease progression given slightly increased precarinal and subcarinal soft tissue. The contiguous soft tissue extended along the right upper lobe bronchus and right suprahilar region, slightly thicker as well. Patient did follow up with Dr. Juares in the pulmonary office yesterday, and he recommended going to the ER for IV antibiotics. CBC on arrival: WC count 32.2, hemoglobin 10.6, hematocrit 33.8, platelets 362. BMP on arrival: Sodium 131, potassium 4.5, chloride 96, serum bicarb 21, BUN 26, creatinine 1.23, glucose 85. Lactic was 2.1 down to 0.9. Patient has been started on a combination of clindamycin and vancomycin. 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 Denies current tobacco use. Denies alcohol use. Poor dentition, and is supposed to have some teeth pulled sometime next month. Patient is currently lying in bed, on room air, in no acute distress. Overall appearance is nontoxic. Vital signs are stable. The patient is seen today June 08, 2023 and follow-up in the observation unit. He is currently resting comfortably in bed. Awake and alert in no acute distress. He is maintaining good O2 saturations in the 90s on room air. He has normal saline at KVO. His procalcitonin was 0.25. He is continued on Rocephin, clindamycin, vancomycin. Chest x-ray shows persistent but slightly improved infiltrates in the left perihilar and right suprahilar regions. Blood and sputum cultures are pending. Count 19.4. Hemoglobin 8.7. Platelets 307. Creatinine 1.04. GFR 78. He remains afebrile. Hemodynamically stable. The patient is seen today June 09, 2023 in follow-up on the regular medical floor. He is currently sitting up in bed. Awake and alert in no acute distress. Denies any worsening shortness of breath, cough or congestion. A bit better today compared to yesterday. Blood culture revealing no growth. Sputum culture showing presumptive Staph aureus. White count 12.6. Hemoglobin 8.6. Platelets 320. Sodium 136. Potassium 4.9. Bicarb 19. BUN 13. Creatinine 0.93. Glucose 107. He is currently on clindamycin and ceftriaxone. 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 Lovenox for DVT prophylaxis. The patient is seen today June 10, 2023 in follow-up on the regular medical floor. He is awake and alert in no acute distress. Resting comfortably in bed. Feeling quite a bit better today compared to yesterday. Continues to maintain good O2 saturations in the 90s on room air. He did undergo bronchoscopy with BAL of the right upper and left lower lobes. Cultures pending. He is continued on DuoNeb inhalations, Tessalon Perles, Decadron, Mucinex. He remains on antibiotics in the form of vancomycin, clindamycin, ceftriaxone along with valacyclovir. Lovenox for DVT prophylaxis. Sputum culture was positive for methicillin sensitive staphylococcus aureus and beta-hemolytic strep group C. White count 11.6. Hemoglobin 9.0. Platelets 301. Sodium 134. Potassium 4.7. Bicarb 25. BUN 13. Creatinine 0.77. Glucose 84. The patient is seen today June 11, 2023 in follow-up on the regular medical floor. He is awake and alert in no acute distress. Resting comfortably in bed. Denies any worsening shortness of breath, cough or congestion. He still has an occasional productive cough. His sputum is positive for methicillin sensitive Staphylococcus aureus. Undergo bronchoscopy with BAL on 06/09/2023. Cultures pending. Glucose 95. Currently on clindamycin and ceftriaxone. He is maintained on DuoNeb ventilations, Tessalon Perles, Mucinex. Continued on Decadron. Remains on Valtrex for herpes simplex of the right eye. Objective - Vital Signs Vital signs: Vital Signs Temp 98.4 F 06/11/23 07:10 Pulse 99 06/11/23 07:10 Resp 16 06/11/23 07:10 BP 100/66 06/11/23 07:10 Pulse Ox 99 06/11/23 07:10 FiO2 Intake & Output 06/10/23 06/11/23 06/11/23 18:59 06:59 18:59 Intake Total 350 Balance 350 Intake: Intake, IV Titration 350 Amount Clindamycin 600 mg In 50 Dextrose 5% in Water 50 ml @ 50 mls/hr IVPB Q8HR [facility] Rx#:[id number] Vancomycin 1,250 mg In 250 Sodium Chloride 0.9% 250 ml @ 125 mls/hr IVPB Q12H [facility] Rx#:[id number] cefTRIAXone 2 gm In 50 Sodium Chloride 0.9% 50 ml @ 100 mls/hr IVPB Q24HR [facility] Rx#:[id number] Other: Voiding Method Toilet # Voids 3 - Exam GENERAL EXAM: Alert, 62-year-old male, on room air. In no apparent distress. HEAD: Normocephalic and atraumatic EYES: Normal reaction of pupils, equal size. Right eyes mildly erythemic, with clear drainage bilaterally. NOSE: Clear with pink turbinates. THROAT: No erythema or exudates. Poor dentition. NECK: No masses, no JVD. CHEST: No chest wall deformity. LUNGS: Equal air entry with few scattered rhonchi. No conversational dyspnea CVS: S1 and S2 normal with no audible murmur, regular rhythm. No extra heart sounds ABDOMEN: No hepatosplenomegaly, active bowel sounds, no guarding or rigidity. SPINE: No scoliosis or deformity SKIN: No rashes CENTRAL NERVOUS SYSTEM: No focal deficits, tone is normal in all 4 extremities. EXTREMITIES: There is no peripheral edema, clubbing, or cyanosis. Peripheral pulses are intact. - Labs CBC & Chem 7: 06/10/23 07:10 06/10/23 07:10 Labs: Abnormal Lab Results - Last 24 Hours (Table) 06/09/23 06/10/23 06/10/23 Range/Units 14:00 07:10 07:10 WBC 11.6 H (3.8-10.6) k/uL RBC 3.33 L (4.30-5.90) m/uL Hgb 9.0 L (13.0-17.5) gm/dL Hct 30.3 L (39.0-53.0) % MCHC 29.6 L (31.0-37.0) g/dL RDW 19.8 H (11.5-15.5) % Sodium 134 L (137-145) mmol/L POC Glucose (mg/dL) (70-110) mg/dL Alkaline Phosphatase 129 H (38-126) U/L Total Protein 6.2 L (6.3-8.2) g/dL Albumin 3.1 L (3.5-5.0) g/dL Fluid RBC 3850 H (0-2000) /uL 06/10/23 06/10/23 06/10/23 Range/Units 11:46 17:05 20:11 WBC (3.8-10.6) k/uL RBC (4.30-5.90) m/uL Hgb (13.0-17.5) gm/dL Hct (39.0-53.0) % MCHC (31.0-37.0) g/dL RDW (11.5-15.5) % Sodium (137-145) mmol/L POC Glucose (mg/dL) 123 H 111 H 166 H (70-110) mg/dL Alkaline Phosphatase (38-126) U/L Total Protein (6.3-8.2) g/dL Albumin (3.5-5.0) g/dL Fluid RBC (0-2000) /uL Microbiology - Last 24 Hours (Table) 06/09/23 14:00 Acid Fast Bacilli Smear - Preliminary Bronchoalviolar Lavage - Left 06/09/23 14:00 Acid Fast Bacilli Smear - Preliminary Bronchoalviolar Lavage - Right 06/07/23 07:34 Blood Culture - Preliminary Blood 06/09/23 14:00 Gram Stain - Preliminary Bronchoalviolar Lavage - Left Bronchial Washings Culture - Preliminary 06/07/23 11:56 Gram Stain - Final Sputum Sputum Culture - Final Staphylococcus aureus Beta Hemolytic Strep Group C 06/09/23 14:00 Gram Stain - Preliminary Bronchoalviolar Lavage - Right 06/06/23 16:35 Blood Culture - Preliminary Blood 06/06/23 16:50 Blood Culture - Preliminary Blood Assessment and Plan Assessment: Suspected pulmonary abscess, There is an extensive new opacification of the superior segment of the left lower lobe measuring up to 7.7 cm. There were areas of air cavitation and fluid. This is concerning for necrotizing/cavitary pneumonia or possible developing pulmonary abscess within this region. Sputum culture revealing MSSA. Status post bronchoscopy with BAL of the right upper and left lower lobes on 06/09/2023. Cultures pending. Metastatic squamous cell carcinoma, likely with disease progression. CT of the chest, abdomen, and pelvis with contrast taken 06/01/2023 showed The above mentioned findings. The previously identified posterior left infrahilar disease, not is well-delineated due to the new opacification mentioned previously. May be larger, previously measuring 2.1 cm and currently 3.3 cm. There was also suspected subtle disease progression given slightly increased precarinal and subcarinal soft tissue. The contiguous soft tissue extended along the right upper lobe bronchus and right suprahilar region, slightly thicker as well. Reportedly on systemic chemotherapy directed by his oncologist. Acute leukocytosis, secondary to above, improving Chronic anemia, current hemoglobin 9.0 History of hypertension History of hyperlipidemia History of coronary artery disease with previous PCI/stent History of ischemic cardiomyopathy, most recent echocardiogram available from 08/27/2022 estimates an impaired left ventricular systolic ejection fraction of 35%. Chronic obstructive pulmonary disease, stable Former tobacco dependance Reportedly diagnosed with ocular herpes, on valacyclovir outpatient, and this was continued Plan: The patient was seen and evaluated Medications and labs reviewed Sputum culture showing MSSA Discontinue ceftriaxone and clindamycin Bactrim DS twice daily for 10 days Cleared for discharge from the pulmonary standpoint Follow-up in our office in 1 week This patient was seen independently by the pulmonary nurse practitioner addressing pulmonary issues I have personally seen and examined the patient, performed the documentation and the assessment and plan as written. Number of minutes spent on the visit: 22.
[2023-06-11 08:23] VITALS: BP 100/66
[2023-06-11] MEDS: SULFAMETHOX-TMP 800-160MG 1 EACH TAB PO SCH (08:48)
[2023-06-11 09:25] LABS: HCT 28.6 % (39.6-50.0); HGB 8.7 g/dL (13.0-17.0); MCH 27.3 pg (27.0-32.0); MCHC 30.4 g/dL (32.0-37.0); MCV 89.7 FL (80.0-97.0); Mean Platelet Volume 9.4 FL (9.5-12.2); NRBC Per 100 WBC 0 X 10*3/uL (0.00-0.01); Platelet Count 291 X 10*3/uL (140-440); RBC 3.19 X 10*6/uL (4.40-5.60); RDW 21.2 % (11.5-14.5); WBC 9.75 X 10*3/uL (4.50-10.00)
[2023-06-11 09:28] LABS: ALT 14 U/L (10-49); AST 19 U/L (14-35); Albumin 3.2 g/dL (3.8-4.9); Albumin/Globulin Ratio 1.07 Ratio (1.60-3.17); Alkaline Phosphatase 110 U/L (41-126); BUN/Creat Ratio 14.56 Ratio (12.00-20.00); Blood Urea Nitrogen 13.1 mg/dL (9.0-27.0); Carbon Dioxide 28.5 mmol/L (21.6-31.8); Chloride 100 mmol/L (96-109); Glucose 93 mg/dL (70-110); Magnesium 1.9 mg/dL (1.5-2.4); Potassium 4.9 mmol/L (3.5-5.5); Sodium 137 mmol/L (135-145); Total Bilirubin <0.2 mg/dL (0.3-1.2); Total Protein 6.2 g/dL (6.2-8.2)
[2023-06-11 11:54] LABS: Glucose,Whole Blood 124 mg/dL (70-110)
--- NOTE | 2023-06-11 12:45 | P.DS ---
Providers Date of admission: 06/06/23 20:53 Expected date of discharge: 06/11/23 Attending physician: Greg Suarez MD Consults: 06/06/23 20:49 Consult Physician Routine Consulting Provider: Anastacio Braga Consult Reason/Comments: Lung abscess Do you want consulting provider notified?: Yes 06/07/23 15:15 Consult Physician Routine Consulting Provider: Juan Carlos Hoyos Consult Reason/Comments: pulmonary abscess Do you want consulting provider notified?: Yes Primary care physician: Eduardo Parsons MD Hospital Course: Discharge Diagnosis: Pulmonary abscess, possible empyema with sepsis based on white blood cell count and tachycardia. Sputum culture resulting positive for Staphylococcus aureus and beta-hemolytic strep C. Patient was taken for bronchoscopy with BAL of the right upper lobe and left lower lobe on 06/09/2023. Bronchioloalveolar lavage specimen was sent to lab for analysis with final Gram stain reporting rare normal respiratory jennifer and epithelial cells with no organisms seen. Patient cleared from pulmonology perspective. Medically stable for discharge at this time and patient discharged home on Bactrim DS 800-160 mg tablets twice daily for 10 days. Squamous cell carcinoma of lung. Oncology recommending holding next chemotherapy treatment until adequately recovered and will reschedule at follow-up appointment on 06/23/2023. COPD without exacerbation Coronary artery disease Ischemic cardiomyopathy with ejection fraction 55 to 60% Hypertension Dyslipidemia Hospital course: Patient is a very pleasant 62-year-old male with squamous cell carcinoma of the lung, COPD, hypertension, dyslipidemia, coronary artery disease status post PCI, ischemic cardiomyopathy with last known ejection fraction 55 to 60%, multiple other comorbid conditions who presented to the emergency department with complaints of worsening shortness of breath over the last 3 weeks. Patient has been undergoing outpatient chemotherapy every 21 days his last dose being received on 05/17/2023. He was following with Dr. Gonzalez in the outpatient setting and underwent a CT chest/abdomen/pelvis on 05/31 which demonstrated new opacification of the superior segment of the left upper lobe measuring 7.5 cm with a air cavitation and fluid concerning for possible pulmonary abscess versus cavitary pneumonia. He was seen by Dr. Gonzalez in the pulmonary office on 06/06/2023 and was referred to the ER for possible admission and IV antibiotics. On arrival to the ER his vital signs were remarkable for a pulse of 110. Admission laboratory analysis was remarkable for white blood cell count of 32, hemoglobin 10, sodium 131, BUN 26, and lactic acid of 2.1. Influenza A/B/RSV/COVID-19 testing was negative. Chest x-ray demonstrated increased vascular markings in the right upper lobe, left hilar opacification. Patient was subsequently admitted and started on clindamycin and Vanco mycin. He also tolerated a dose of Rocephin and Levaquin in the emergency department. Patient mated under our services and pulmonary was consulted. Sputum culture resulting positive for Staphylococcus aureus and beta-hemolytic strep C. Patient was taken for bronchoscopy with BAL of the right upper lobe and left lower lobe on 06/09/2023. Bronchioloalveolar lavage specimen was sent to lab for analysis with final Gram stain reporting rare normal respiratory jennifer and epithelial cells with no organisms seen. Patient cleared from pulmonology perspective recommending discharge home on Bactrim DS 800-160 mg tablets twice daily for 10 days. Oncology recommending holding next chemotherapy treatment until adequately recovered and will reschedule at follow-up appointment on 06/23/2023. Patient is medically stable at this time and currently free from any complaints. Prescription sent for Bactrim DS and patient to follow-up outpatient with PCP in 1 to 2 days, copra processor in 1 week, mud logger in 2 weeks, and oncologist on 06/23/2023. Physical exam: Vital signs reviewed and stable. General: Nontoxic, no distress and appears stated age. Derm: Skin warm and dry, normal coloration for ethnicity. Head: Atraumatic, normocephalic and symmetric. Eyes: EOMs intact, no lid lag, and anicteric sclera Mouth: no lip lesions, mucus membranes moist Cardiovascular: regular rate and rhythm with normal S1S2, no murmur, positive posterior tibial pulses bilaterally, and cap refill < 2 seconds. Lungs: Respirations even, regular, and unlabored on room air. Lungs CTA bilaterally, no rhonchi, no rales, no wheezing, and no accessory muscle usage. Abdominal: soft, nontender to palpation, no guarding, no appreciable organomegaly Ext: ROM intact. No gross muscle atrophy, no edema, no contractures Neuro: Speech clear, face symmetrical and CN II-XII grossly intact with no noted focal neuro deficits Psych: Alert and oriented to person, place, time, and situation. Appropriate and pleasant affect. A total of 38 minutes of time were spent preparing this complex discharge summary. Pt was discharged on 06/11/2023 at 11:57 AM. Patient was seen independently by Nurse Practitioner. This document was prepared using [employer] dictation software. Please allow for errors in laborer demolition while rare they do occur. Tony Vazquez INFORMATION DEVELOPER rendered care for this patient independently, reviewed the findings and plan as documented in the note above. I did not physically speak with or examine the patient on this date. Patient Condition at Discharge: Stable Plan - Discharge Summary New Discharge Prescriptions: New Sulfamethox-Tmp 800-160Mg [Bactrim DS 800-160 mg] 1 each PO BID 10 Days #20 tab Continue Ondansetron [Zofran] 4 mg PO Q6H PRN PRN Reason: Nausea Dapagliflozin Propanediol [Farxiga] 10 mg PO DAILY #30 tab Spiriva Respimat 1.25mcg/Actuation Mist 2 puff INHALATION RT-HS #0 valACYclovir HCL [Valtrex] 500 mg PO TID Spironolactone [Aldactone] 50 mg PO DAILY dexAMETHasone [Decadron] 8 mg PO BID PRN PRN Reason: CHEMO CYCLE Albuterol Inhaler [Ventolin Hfa Inhaler] 1 - 2 puff INHALATION RT-Q6H PRN PRN Reason: SOB Atorvastatin [Lipitor] 80 mg PO HS Trifluridine 1% Ophth Soln [Viroptic 1% Ophth Soln] 1 drop BOTH EYES Q2H Hydrocodone/Acetaminophen [Hydrocodone/Acetaminophen 10-300 mg] 1 tab PO QID PRN PRN Reason: PAIN Prochlorperazine Maleate 10 mg PO Q6H PRN PRN Reason: NAUSEA Metoprolol Tartrate [Lopressor] 25 mg PO BID Cholecalciferol (Vitamin D3) [Vitamin D3 (50 Mcg = 2000 Iu)] 50 mcg PO DAILY Omeprazole 40 mg PO DAILY PRN PRN Reason: ACID REFLUX Discharge Medication List Atorvastatin [Lipitor] 80 mg PO HS 03/04/21 [History] Ondansetron [Zofran] 4 mg PO Q6H PRN 05/09/22 [History] Dapagliflozin Propanediol [Farxiga] 10 mg PO DAILY #30 tab 09/01/22 [Rx] Spiriva Respimat 1.25mcg/Actuation Mist 2 puff INHALATION RT-HS #0 07/19/23 [Rx] Albuterol Inhaler [Ventolin Hfa Inhaler] 1 - 2 puff INHALATION RT-Q6H PRN 06/06/23 [History] Cholecalciferol (Vitamin D3) [Vitamin D3 (50 Mcg = 2000 Iu)] 50 mcg PO DAILY 06/06/23 [History] Hydrocodone/Acetaminophen [Hydrocodone/Acetaminophen 10-300 mg] 1 tab PO QID PRN 06/06/23 [History] Metoprolol Tartrate [Lopressor] 25 mg PO BID 06/06/23 [History] Omeprazole 40 mg PO DAILY PRN 06/06/23 [History] Prochlorperazine Maleate 10 mg PO Q6H PRN 06/06/23 [History] Spironolactone [Aldactone] 50 mg PO DAILY 06/06/23 [History] Trifluridine 1% Ophth Soln [Viroptic 1% Ophth Soln] 1 drop BOTH EYES Q2H 06/06/23 [History] dexAMETHasone [Decadron] 8 mg PO BID PRN 06/06/23 [History] valACYclovir HCL [Valtrex] 500 mg PO TID 06/06/23 [History] Sulfamethox-Tmp 800-160Mg [Bactrim DS 800-160 mg] 1 each PO BID 10 Days #20 tab 06/11/23 [Rx] Follow up Appointment(s)/Referral(s): Truman Kumar MD [STAFF PHYSICIAN] - 1 Week Neeru Tabares MD [STAFF PHYSICIAN] - 2 Weeks Carlos Mena NPC [Nurse Practitioner] - 06/23/23 1:15 pm Eduardo Parsons MD [Primary Care Provider] - 1-2 days Patient Instructions/Handouts: Lung Cancer (DC), Lung Abscess (DC) Activity/Diet/Wound Care/Special Instructions: Patient has eye drops from home in our med. room fridge in a [employer] bag Activity: As tolerated. Take breaks as needed. Diet: Heart healthy and carb consistent diet. Avoid salts, or foods with hidden salts such as canned or boxed foods and frozen dinners. Extra salt makes your heart work harder and traps the fluid in your body for longer. Special Instructions: Take all of your medications as directed and remember to keep all of your doctor's appointments and follow-up as needed. You are being discharged home on continuous home oxygen, please wear oxygen at all times including while showering and sleeping. Thank you for allowing us to participate in your care, it was truly a pleasure having you for our patient!!! . Discharge Disposition: HOME SELF-CARE
[2023-06-11] MEDS ORDERED: VANCOMYCIN TROUGH DUE 1 EACH MISC MISCELLANE ONE (14:00)
[2023-06-11 14:23] VITALS: PULSE 76; TEMP 98.6
== END 2023-06-11 14:39 | disposition home or self-care (01) | DRG 720 ==
LOC: EC 14:48 → 5NMEDONC 20:53 → 1SOBS 06-07 14:39 → 5NMEDONC 06-08 17:56
PROVIDERS: ADMIT Internal Medicine; ATTEND Internal Medicine
PROC: 0B9C8ZX Drainage of Right Upper Lung Lobe, Via Natural or Artificial Opening Endoscopic, Diagnostic (ICD-10-PCS; 2023-06-09)
PROC: 0BD68ZX Extraction of Right Lower Lobe Bronchus, Via Natural or Artificial Opening Endoscopic, Diagnostic (ICD-10-PCS; 2023-06-09)
PROC: 0BD48ZX Extraction of Right Upper Lobe Bronchus, Via Natural or Artificial Opening Endoscopic, Diagnostic (ICD-10-PCS; 2023-06-09)
PROC: 0B9F8ZX Drainage of Right Lower Lung Lobe, Via Natural or Artificial Opening Endoscopic, Diagnostic (ICD-10-PCS; principal; 2023-06-09 13:50)
DX: A41.9 Sepsis, unspecified organism (principal); B02.30 Zoster ocular disease, unspecified; C34.90 Malignant neoplasm of unspecified part of unspecified bronchus or lung; D64.81 Anemia due to antineoplastic chemotherapy; E78.5 Hyperlipidemia, unspecified; I25.10 Atherosclerotic heart disease of native coronary artery without angina pectoris; I25.2 Old myocardial infarction; I25.5 Ischemic cardiomyopathy; J44.0 Chronic obstructive pulmonary disease with (acute) lower respiratory infection; J85.1 Abscess of lung with pneumonia; Z95.5 Presence of coronary angioplasty implant and graft; Z88.0 Allergy status to penicillin; I11.0 Hypertensive heart disease with heart failure; T38.6X Poisoning by, adverse effect of and underdosing of antigonadotrophins, antiestrogens, antiandrogens, not elsewhere classified; I50.9 Heart failure, unspecified; B95.61 Methicillin susceptible Staphylococcus aureus infection as the cause of diseases classified elsewhere; X58.XXXA Exposure to other specified factors, initial encounter; Z86.14 Personal history of Methicillin resistant Staphylococcus aureus infection
CPT/HCPCS: 31624; 36415; 71045; 80048; 80053; 82565; 82607; 82728; 82746; 83036; 83540; 83550; 83605; 83735; 84145; 85025; 85027; 85045; 85610; 85730; 87040; 87070; 87077; 87102; 87116; 87186; 87205; 87206; 87449; 87636; 88108; 88305; 89050; 93005; 94640; 94760; 96365; 96366; 96367; 96375; 99285

== ENCOUNTER → 2023-07-13 | Outpatient (CLI) | payer OTHER ==
[2023-07-13 10:45] LABS: African American GFR (CKD) >90 (>60 ml/min/1.73 sqM); Blood Urea Nitrogen 23 mg/dL (9-20); Non-African American GFR(CKD) 81 (>60 ml/min/1.73 sqM)
--- NOTE | 2023-07-13 12:04 | CT ---
EXAMINATION TYPE: CT chest w con DATE OF EXAM: 07/13/2023 COMPARISON: 06/01/2023 HISTORY: 62-year-old male C34.12, lung abscess f/u and h/o lung CA TECHNIQUE: Contiguous axial scanning of the chest after the administration of 100 mL of Isovue 300. Coronal/sagittal reconstructions performed. CT DLP: 257.7mGycm. Automatic exposure control utilized for a dose reduction. FINDINGS: The heart is normal size with similar trace anterior pericardial effusion measuring 4 mm thick. Exten sive three-vessel coronary artery calcifications are present. Borderline ectatic ascending aorta 3.6 cm mild atherosclerotic arch calcifications and symmetric vess els branching anatomy. Superior left mediastinal lymph node 1.0 cm now versus 17 mm, previously. Increasing soft tissue encasement at the teresa contiguous with the subcarinal region, and right hilu m resulting in right mainstem bronchus caliber narrowing. Subcarinal soft tissue nodule 3.1 cm thick versus 2.5 cm, previously. A portion of the right hilar soft tissue measures up to 2.8 cm versus 1.4 cm, previously. Extensive abnormality along the superior segment left lower lobe redemonstrated now with cut off of t he superior segment left lower lobe bronchus and possible underlying enlarging posterior left infrahi lar mass, possibly measuring up to 4.5 cm now versus 2.6 cm, previously. There is residual patchy air space opacity remains in the left lower lobe though the extent of cavitary change has decreased measu ring 1.7 cm now versus 3.7 cm, previously. Background of moderate emphysema. Similar peribronchial vascular opacity extending throughout the right upper lobe from the right hilum . No pleural effusion. Tiny hiatal hernia. Visualized upper abdomen shows a mildly hydropic gallbladder 4.1 cm wide likely d ue to fasting state. Bones: Mild degenerative disc disease mid to lower thoracic spine. Old healed fracture deformity ster nal body. IMPRESSION: 1. Previous cavitary pneumonia centered at the superior segment left lower lobe shows partial improve ment. Cavitary change currently measures 1.7 cm versus up to 3.7 cm, previously. Surrounding airspace disease remains though also slightly diminished in the interval. 2. Possible underlying posterior left infrahilar mass difficult to separate from the adjacent airspac e disease. This may be larger, estimated at 4.5 cm versus 3.6 cm, previously. 3. Worsening soft tissue encasing the teresa contiguous with the right hilum and continuing to narrow the right upper lobe bronchus. Subcarinal soft tissue now measures up to 3.1 cm thick versus 2.5 cm, previously. Some of the right hilar soft tissue now measures up to 2.8 cm thick versus 1.4 cm, previ ously. Disease progression is suggested.
== END | disposition home or self-care (01) ==
LOC: RADCTMAIN 09:37
PROVIDERS: ATTEND Internal Medicine Hematology & Oncology
DX: J18.8 Other pneumonia, unspecified organism (principal); J98.4 Other disorders of lung; C34.12 Malignant neoplasm of upper lobe, left bronchus or lung; J44.9 Chronic obstructive pulmonary disease, unspecified; I10 Essential (primary) hypertension
CPT/HCPCS: 82565; 84520; 71260; 36415; Q9967

== ENCOUNTER → 2023-08-02 | Outpatient (CLI) | payer OTHER ==
--- NOTE | 2023-08-02 19:42 | MR ---
EXAMINATION TYPE: MR brain wo/w con DATE OF EXAM: 08/02/2023 7:16 PM CLINICAL INDICATION:Male, 62 years old with history of C34.2 MALIGNANT NEOPLASM OF MIDDLE LOBE, BRONC HUS; PHH, Extreme head pain Right side, Hx lung cancer, COMPARISON: MRI brain 01/19/2023 TECHNIQUE: Multi planar, multi sequence imaging was performed through the brain including: T1, T2, In version recovery, susceptibility weighted imaging and gradient echo imaging and Diffusion weighted im aging. The patient was then given intravenous contrast and multi planar, T1 fat-saturation images wer e obtained. IV Contrast: 7.5 cc Gadavist FINDINGS: The brothers-white junctions, ventricular system, basal cisterns appear unremarkable. Diffusion-weighted imaging shows no evidence of restricted diffusion to suggest acute/subacute infarct. Intracranial art erial flow voids are maintained. Midline structures show no abnormality. Scattered foci of high T2 si gnal intensity are seen within the periventricular white matter, not significant change in interval. The susceptibility weighted images do not reveal any evidence for micro-hemorrhage. After administrat ion of gadolinium, no abnormal enhancement is seen. The bone marrow signal is within normal limits. Paranasal sinuses and mastoid air cells: Mild mucosal disease of the ethmoid air cells Visualized orbits: Orbital contents are intact. IMPRESSION: 1. Stable exam without evidence of intracranial mass, acute/subacute infarct, or abnormal enhancement . 2. Nonspecific white matter changes, likely related to small vessel ischemic disease
== END | disposition home or self-care (01) ==
LOC: RADMRIMAIN 18:10
PROVIDERS: ATTEND Internal Medicine Hematology & Oncology
DX: C34.12 Malignant neoplasm of upper lobe, left bronchus or lung (principal)
CPT/HCPCS: 70553; A9585

== ENCOUNTER 2023-08-28 11:13 | Inpatient (IN) | payer OTHER ==
[2023-08-28] MEDS: ADENOSINE 3 MG/ML 2 ML VIAL IVP STA ×3 (11:24→23:41)
[2023-08-28] MEDS: METOPROLOL TARTRATE 5 MG/5 ML VIAL IVP STA (11:30)
--- NOTE | 2023-08-28 11:32 | ED ---
General Adult HPI - General Chief complaint: Chest Pain Stated complaint: Chest Pain Time Seen by Provider: 08/28/23 11:15 Source: patient, RN notes reviewed, old records reviewed Mode of arrival: ambulatory Limitations: no limitations - History of Present Illness Initial comments: This is a 62-year-old male who presents to the emergency department complaining of feeling his heart racing. Patient states there is a tightness in his chest. Patient states he had this years ago but does not remember what it is. Patient states he also has a history of lung cancer. Patient states he was diagnosed in 2000. Patient also complains of some shortness of breath. Patient denies any fever chills or cough. Patient has abdominal pain patient denies nausea vomiting diarrhea. - Related Data Home Medications Medication Instructions Recorded Confirmed Atorvastatin [Lipitor] 80 mg PO HS 03/04/21 08/28/23 Albuterol Inhaler [Ventolin Hfa 1 - 2 puff INHALATION RT-Q6H PRN 06/06/23 08/28/23 Inhaler] Hydrocodone/Acetaminophen 1 tab PO QID PRN 06/06/23 08/28/23 [Hydrocodone/Acetaminophen 10-300 mg] Metoprolol Tartrate [Lopressor] 25 mg PO BID 06/06/23 08/28/23 Spironolactone [Aldactone] 50 mg PO DAILY 06/06/23 08/28/23 lisinopriL [Zestril] 20 mg PO DAILY 08/28/23 08/28/23 Previous Rx's Medication Instructions Recorded Dapagliflozin Propanediol [Farxiga] 10 mg PO DAILY #30 tab 09/01/22 Spiriva Respimat 1.25mcg/Actuation 2 puff INHALATION RT-HS #0 09/01/22 Mist Allergies Allergy/AdvReac Type Severity Reaction Status Date / Time Penicillins Allergy Dyspnea & Verified 08/28/23 12:25 Hives all over Review of Systems ROS Statement: Those systems with pertinent positive or pertinent negative responses have been documented in the HPI. ROS Other: All systems not noted in ROS Statement are negative. Past Medical History Past Medical History: Coronary Artery Disease (CAD), Cancer, Chest Pain / [place], COPD, Hyperlipidemia, Hypertension, Myocardial Infarction ([place]) Additional Past Medical History / Comment(s): SVT with chest pain/palpitations- chemically converted, lung cancer, pt states "I get chemo every three weeks; last chemo was May 26, 2023". Last Myocardial Infarction Date:: 2017 History of Any Multi-Drug Resistant Organisms: MRSA Date of last positivie culture/infection: 12/23/2013 MDRO Source:: Face Past Surgical History: Heart Catheterization With Stent Additional Past Surgical History / Comment(s): I&D of Right inframandibular abscess. 3 cardiac stents. Past Anesthesia/Blood Transfusion Reactions: No Reported Reaction Date of Last Stent Placement:: 2017 Past Psychological History: No Psychological Hx Reported Smoking Status: Former smoker Past Alcohol Use History: None Reported Past Drug Use History: Marijuana - Past Family History Father Family Medical History: No Reported History Additional Family Medical History / Comment(s): Father of "natural causes" at the age of 79yrs. Mother Family Medical History: COPD, Coronary Artery Disease (CAD) Additional Family Medical History / Comment(s): Mother is 76yrs old. She has had several MIs, 6 cardiac stents and a 4 vessel CABG. General Exam - General Exam Comments Initial Comments: GENERAL: Patient is well-developed and well-nourished. Patient is nontoxic and well- hydrated and is in moderate distress. ENT: Neck is soft and supple. No significant lymphadenopathy is noted. Oropharynx is clear. Moist mucous membranes. Neck has full range of motion without eliciting any pain. EYES: The sclera were anicteric and conjunctiva were pink and moist. Extraocular movements were intact and pupils were equal round and reactive to light. Eyelids were unremarkable. PULMONARY: Unlabored respirations. Good breath sounds bilaterally. No audible rales rhonchi or wheezing was noted. CARDIOVASCULAR: Heart rate is about 200 bpm ABDOMEN: Soft and nontender with normal bowel sounds. SKIN: Skin is clear with no lesions or rashes and otherwise unremarkable. NEUROLOGIC: Patient is alert and oriented x3. Cranial nerves II through XII are grossly intact. Motor and sensory are also intact. Normal speech, volume and content. Symmetrical smile. MUSCULOSKELETAL: Normal extremities with adequate strength and full range of motion. LYMPHATICS: No significant lymphadenopathy is noted PSYCHIATRIC: Normal psychiatric evaluation. Limitations: no limitations Course Vital Signs 08/28/23 08/28/23 08/28/23 11:15 11:40 12:01 Temperature 97.9 F Pulse Rate 197 H 125 H 115 H Respiratory 20 26 H 20 Rate Blood Pressure 110/81 121/80 O2 Sat by Pulse 97 99 100 Oximetry 08/28/23 13:34 Temperature Pulse Rate 110 H Respiratory 18 Rate Blood Pressure 94/84 O2 Sat by Pulse 99 Oximetry Medical Decision Making - Medical Decision Making EKG is interpreted by myself. EKG shows SVT at 204 bpm QRS is 97 QT interval is 231 QTc is 331. Patient was given adenosine and an EKG was repeated after the adenosine converted the patient. I interpreted the EKG post adenosine EKG showed a sinus rhythm at a rate of 104 and ND interval was 154 QRS is 94 QT interval 314 QTc was 374. There is some slight inferior lead depression. Patient was then back into SVT patient was then given 12 of adenosine and patient was converted again and another EKG was done I interpreted this EKG as well that EKG showed a sinus rhythm at 114 bpm parables 136 QRS is 98 QT interval is 319 QTc is 387. Patient's EKG continues to show some slight ST segment depression in the inferior leads patient shortly thereafter went into atrial fibrillation repeat EKG was done it was interpreted by myself read EKG shows atrial fibrillation with rapid ventricular sponsor 132 bpm QRS is 88 QT interval is 291 QTc is 369. Patient's EKG shows no ST segment ovation or depression. Was pt. sent in by a medical professional or institution (, PA, ROSE GRADING SUPERVISOR, urgent care, hospital, or snf...) When possible be specific @ -No Did you speak to anyone other than the patient for history (EMS, parent, family, police, friend...)? What history was obtained from this source @ -No Did you review nursing and triage notes (agree or disagree)? Why? @ -I reviewed and agree with nursing and triage notes Were old charts reviewed (outside hosp., previous admission, EMS record, old EKG, old radiological studies, urgent care reports/EKG's, snf records)? Report findings @ -No old charts were reviewed Differential Diagnosis? @ -MDM differential EKG interpreted by me (3pts min.). @ -As above X-rays interpreted by me (1pt min.). @ -Chest x-ray shows left-sided pleural effusion CT interpreted by me (1pt min.). @ -None done U/S interpreted by me (1pt. min.). @ -None done What testing was considered but not performed or refused? (CT, X-rays, U/S, labs)? Why? @ -None What meds were considered but not given or refused? Why? @ -None Did you discuss the management of the patient with other professionals (professionals i.e. , PA, ROSE GRADING SUPERVISOR, lab, RT, psych nurse, social work faculty member, weed burner, teacher, traffic police officer, casework specialist)? Give summary @ -I spoke with sound physicians he agreed admit the patient to the patient consult cardiology Was smoking cessation discussed for >3mins.? @ -No Was critical care preformed (if so, how long)? @ -35 minutes Were there social determinants of health that impacted care today? How? (Homelessness, low income, unemployed, alcoholism, drug addiction, transportation, low edu. Level, literacy, decrease access to med. care, residential, rehab)? @ -No Was there de-escalation of care discussed even if they declined (Discuss DNR or withdrawal of care, Hospice)? DNR status @ -No What co-morbidities impacted this encounter? (DM, HTN, Smoking, COPD, CAD, Cancer, CVA, ARF, Chemo, Hep., AIDS, mental health diagnosis, sleep apnea, morbid obesity)? @ -None Was patient admitted / discharged? Hospital course, mention meds given and route, prescriptions, significant lab abnormalities, going to OR and other pertinent info. @ -Patient initially came in SVT I gave the patient 6 mg of adenosine converted the patient to normal sinus rhythm. Patient and went back into SVT I gave the patient 12 mg of adenosine and gave the patient 2.5 of metoprolol. Patient then went into a sinus rhythm and eventually converted to atrial fibrillation at which point time I started the patient on Cardizem and heparin. Undiagnosed new problem with uncertain prognosis? @ -No Drug Therapy requiring intensive monitoring for toxicity (Heparin, Nitro, Insulin, Cardizem)? @ -No Were any procedures done? @ -No Diagnosis/symptom? @ -SVT Acute, or Chronic, or Acute on Chronic? @ -The acute Uncomplicated (without systemic symptoms) or Complicated (systemic symptoms)? @ -Complicated Side effects of treatment? @ -No Exacerbation, Progression, or Severe Exacerbation? @ -No Poses a threat to life or bodily function? How? (Chest pain, [place], [place], pneumonia, PE, COPD, DKA, ARF, appy, cholecystitis, CVA, Diverticulitis, Homicidal, Suicidal, threat to staff... and all critical care pts) @ -Yes this can lead to poor perfusion and endorgan dysfunction Diagnosis/symptom? @ -Atrial fibrillation Acute, or Chronic, or Acute on Chronic? @ -Acute Uncomplicated (without systemic symptoms) or Complicated (systemic symptoms)? @ -Complicated Side effects of treatment? @ -None Exacerbation, Progression, or Severe Exacerbation] @ -No Poses a threat to life or bodily function? @ -Yes this can lead to poor perfusion and endorgan dysfunction - Lab Data Result diagrams: 08/28/23 11:31 08/28/23 11:31 Lab Results 08/28/23 08/28/23 08/28/23 Range/Units 11:31 11:31 11:31 WBC 9.3 (3.8-10.6) k/uL RBC 4.92 (4.30-5.90) m/uL Hgb 13.7 (13.0-17.5) gm/dL Hct 44.4 (39.0-53.0) % MCV 90.3 (80.0-100.0) fL MCH 27.8 (25.0-35.0) pg MCHC 30.8 L (31.0-37.0) g/dL RDW 19.2 H (11.5-15.5) % Plt Count 383 (150-450) k/uL MPV 8.8 Neutrophils % 85 % Lymphocytes % 10 % Monocytes % 3 % Eosinophils % 0 % Basophils % 0 % Neutrophils # 8.0 H (1.3-7.7) k/uL Lymphocytes # 0.9 L (1.0-4.8) k/uL Monocytes # 0.3 (0-1.0) k/uL Eosinophils # 0.0 (0-0.7) k/uL Basophils # 0.0 (0-0.2) k/uL Hypochromasia Moderate Anisocytosis Slight PT 10.6 (10.0-12.5) sec INR 1.0 (<1.2) APTT 29.9 (22.0-30.0) sec Sodium 133 L (137-145) mmol/L Potassium 4.6 (3.5-5.1) mmol/L Chloride 99 (98-107) mmol/L Carbon Dioxide 24 (22-30) mmol/L Anion Gap 10 mmol/L BUN 21 H (9-20) mg/dL Creatinine 0.76 (0.66-1.25) mg/dL Est GFR (CKD-EPI)AfAm >90 (>60 ml/min/1.73 sqM) Est GFR (CKD-EPI)NonAf >90 (>60 ml/min/1.73 sqM) Glucose 136 H (74-99) mg/dL Calcium 11.5 H (8.4-10.2) mg/dL Magnesium 1.6 (1.6-2.3) mg/dL Total Bilirubin 0.5 (0.2-1.3) mg/dL AST 24 (17-59) U/L ALT 13 (4-49) U/L Alkaline Phosphatase 78 (38-126) U/L Troponin I (0.000-0.034) ng/mL Total Protein 7.5 (6.3-8.2) g/dL Albumin 3.7 (3.5-5.0) g/dL TSH 0.855 (0.465-4.680) mIU/L 08/28/23 Range/Units 11:31 WBC (3.8-10.6) k/uL RBC (4.30-5.90) m/uL Hgb (13.0-17.5) gm/dL Hct (39.0-53.0) % MCV (80.0-100.0) fL MCH (25.0-35.0) pg MCHC (31.0-37.0) g/dL RDW (11.5-15.5) % Plt Count (150-450) k/uL MPV Neutrophils % % Lymphocytes % % Monocytes % % Eosinophils % % Basophils % % Neutrophils # (1.3-7.7) k/uL Lymphocytes # (1.0-4.8) k/uL Monocytes # (0-1.0) k/uL Eosinophils # (0-0.7) k/uL Basophils # (0-0.2) k/uL Hypochromasia Anisocytosis PT (10.0-12.5) sec INR (<1.2) APTT (22.0-30.0) sec Sodium (137-145) mmol/L Potassium (3.5-5.1) mmol/L Chloride (98-107) mmol/L Carbon Dioxide (22-30) mmol/L Anion Gap mmol/L BUN (9-20) mg/dL Creatinine (0.66-1.25) mg/dL Est GFR (CKD-EPI)AfAm (>60 ml/min/1.73 sqM) Est GFR (CKD-EPI)NonAf (>60 ml/min/1.73 sqM) Glucose (74-99) mg/dL Calcium (8.4-10.2) mg/dL Magnesium (1.6-2.3) mg/dL Total Bilirubin (0.2-1.3) mg/dL AST (17-59) U/L ALT (4-49) U/L Alkaline Phosphatase (38-126) U/L Troponin I <0.012 (0.000-0.034) ng/mL Total Protein (6.3-8.2) g/dL Albumin (3.5-5.0) g/dL TSH (0.465-4.680) mIU/L Critical Care Time Critical Care Time: Yes Total Critical Care Time: 35 Disposition Clinical Impression: SVT (supraventricular tachycardia), Atrial fibrillation with rapid ventricular response, Pleural effusion Disposition: ADMITTED IP TO THIS HOSP Referrals: Eduardo Parsons MD [Primary Care Provider] - 1-2 days Time of Disposition: 13:43
[2023-08-28] MEDS: SODIUM CHLORIDE 0.9% 1,000 ML IV STA (11:34)
[2023-08-28 11:45] LABS: Anisocytosis Slight; Basophils % (A) 0 %; Eosinophils % (A) 0 %; HCT 44.4 % (39.0-53.0); HGB 13.7 gm/dL (13.0-17.5); Hypochromasia Moderate; Lymphocytes # (A) 0.9 k/uL (1.0-4.8); Lymphocytes % (A) 10 %; MCH 27.8 pg (25.0-35.0); MCHC 30.8 g/dL (31.0-37.0); MCV 90.3 fL (80.0-100.0); Mean Platelet Volume 8.8; Monocytes # (A) 0.3 k/uL (0-1.0); Monocytes % (A) 3 %; Neutrophils % (A) 85 %; Platelet Count 383 k/uL (150-450); RBC 4.92 m/uL (4.30-5.90); RDW 19.2 % (11.5-15.5); WBC 9.3 k/uL (3.8-10.6)
[2023-08-28 11:54] LABS: ALT 13 U/L (4-49); AST 24 U/L (17-59); African American GFR (CKD) >90 (>60 ml/min/1.73 sqM); Albumin 3.7 g/dL (3.5-5.0); Alkaline Phosphatase 78 U/L (38-126); Anion Gap 10 mmol/L; Blood Urea Nitrogen 21 mg/dL (9-20); Calcium 11.5 mg/dL (8.4-10.2); Carbon Dioxide 24 mmol/L (22-30); Chloride 99 mmol/L (98-107); Glucose 136 mg/dL (74-99); Magnesium 1.6 mg/dL (1.6-2.3); Non-African American GFR(CKD) >90 (>60 ml/min/1.73 sqM); Potassium 4.6 mmol/L (3.5-5.1); Sodium 133 mmol/L (137-145); Total Bilirubin 0.5 mg/dL (0.2-1.3); Total Protein 7.5 g/dL (6.3-8.2)
--- NOTE | 2023-08-28 11:56 | XR ---
EXAMINATION TYPE: XR chest 2V DATE OF EXAM: 08/28/2023 COMPARISON: 06/07/2023 HISTORY: Shortness of breath TECHNIQUE: Frontal and lateral views of the chest are obtained. FINDINGS: Scattered senescent parenchymal changes noted. Hyperinflation compatible with COPD. Persistent but improving infiltrate in the region of the superior segment left lower lobe. Prominence of the left hilum. Increased patchy density right suprahilar region. Heart size is stable. Mediastinal structures are stable and grossly unremarkable. No evidence for hilar prominence. Degenerative changes dorsal spine. IMPRESSION: 1. Persistent but improving infiltrate in the region of the superior segment left lower lobe. Promine nce of the left hilum. Increased patchy density right suprahilar region.
[2023-08-28 11:58] LABS: Partial Thromboplastin Time 29.9 sec (22.0-30.0); Prothrombin Time 10.6 sec (10.0-12.5)
[2023-08-28] MEDS: DILTIAZEM DRIP BOLUS FROM BAG 1 MG SOLN IV ONE ×2 (11:59→23:33)
[2023-08-28] MEDS: DILTIAZEM 125 MG in SODIUM CHLORIDE 0.9% 100 ML IV SCH ×2 (12:00→23:27)
[2023-08-28] MEDS: DILTIAZEM 5 MG/ML 5 ML VIAL IVP STA (12:00)
[2023-08-28] MEDS: ACETAMINOPHEN TAB 500 MG TAB PO STA (13:30)
[2023-08-28] MEDS: HYDROmorphone 1 MG/ML 1 ML SYRINGE IVP STA (13:31)
[2023-08-28] MEDS ORDERED: NITROGLYCERIN SL TABS 0.4 MG TAB SUBLINGUAL PRN (13:53)
[2023-08-28] MEDS: HEPARIN SODIUM 1,000 UN/ML (10ML VL) IV ONE (14:44)
[2023-08-28] MEDS: HEPARIN SOD,PORK IN 0.45% NACL 25,000 UNIT in 0.45% NACL 1 250ML.BAG IV SCH (14:45)
[2023-08-28] MEDS ORDERED: MELATONIN 3 MG TABLET PO PRN (15:59)
[2023-08-28] MEDS ORDERED: ONDANSETRON 4 MG/2 ML VIAL IVP PRN (15:59)
[2023-08-28] MEDS ORDERED: CALCIUM CARBONATE 500 MG CHEWABLE PO PRN (15:59)
[2023-08-28] MEDS ORDERED: NALOXONE 0.4 MG/ML 1 ML VIAL IV PRN (15:59)
--- NOTE | 2023-08-28 16:09 | P.HPIM ---
History of Present Illness H&P Date: 08/28/23 Chief Complaint: palpitations Patient is a 62-year-old male with known history of SVT, lung cancer currently receiving radiation, HTN, HLD, COPD, coronary artery disease with prior myocardial infarction who presented to the emergency department with chest pain. On arrival to the ER he was tachycardic with a pulse of 197. Initial labs included CBC, coags, CMP, troponin, and TSH which were remarkable for calcium of 11.5 and sodium of 133. Initial EKG in the emergency department showed SVT at 204 bpm. Patient was given adenosine and heart rate slowed. On 1 EKG after this he had possible atrial fibrillation. Subsequent EKGs revealed normal sinus rhythm. In the ER he did receive adenosine 6 and then 12 as well as a Cardizem drip and heparin drip. Cardiology was consulted and arrangements were made for admission. Patient seen and examined at bedside. He reports that he has had a constant neckache and headache for the last several months. Today he applied a TENS unit to the back and side of his neck and his headache was getting better, he dozed o ff and awoke with palpitations associated with squeezing in his chest, and presyncope. He denies any diaphoresis, he has chronic shortness of breath from his lung cancer and did not notice a significant change. He recently started radiation to 3 different spots on his chest including his sternum 08/[address] Shearer. He was post to have repeat radiation 08/28 at 1245 which she is very concerned about missing. He follows with with Dr. Tabares for cardiology and has a had a history of SVT in the past. Vital signs reviewed General: nontoxic, no distress, gaunt appearing, appears older than stated age Derm: warm, dry Eyes: EOMI, no lid lag, anicteric sclera, pupils equal round reactive to light ENT: Nose and ears atraumatic Cardiovascular: S1S2 reg, no murmur, no edema Lungs: clear to auscultation bilateral, no rhonchi, no rales, no wheeze, no accessory muscle use Abdominal: soft, nontender to palpation, no guarding Ext: no gross muscle atrophy, no contractures Neuro: CN II-XII grossly intact, No focal neuro deficits Psych: Alert, oriented, appropriate affect Assessment/Plan: SVT abated with adenosine Possible transient A-fib currently in normal sinus rhythm- Ischemic cardiomyopathy with ejection fraction 35 to 40% 09/05 Hypertension Dyslipidemia COPD without exacerbation Squamous cell carcinoma of the lung -Continue Cardizem drip, continue heparin until evaluated by cardiology -Telemetry, echocardiogram -Resume patient's metoprolol 25 mg twice daily, lisinopril 20 mg daily, Farxiga 10 mg daily Aldactone 50 mg daily -Trend troponin -Consult cardiology Hypercalcemia, likely related to underlying malignancy -IV fluids at 75 cc/h -Repeat ionized calcium in a.m. Imaging: As per HPI Data Review: As per HPI Patient placed in observation for SVT Anticipated discharge: Home in a.m. This dictation was prepared using [employer] voice recognition software. Though every attempt is made to correct errors during dictation some may still exist. Past Medical History Past Medical History: Coronary Artery Disease (CAD), Cancer, Chest Pain / Angina, COPD, Hyperlipidemia, Hypertension, Myocardial Infarction ([place]) Additional Past Medical History / Comment(s): SVT with chest pain/palpitations- chemically converted(2023), lung cancer with chemo and radiation Last Myocardial Infarction Date:: 2017 History of Any Multi-Drug Resistant Organisms: MRSA Date of last positivie culture/infection: 12/23/2013 MDRO Source:: Face Past Surgical History: Heart Catheterization With Stent Additional Past Surgical History / Comment(s): I&D of Right inframandibular abscess. 3 cardiac stents, bronchoscopy for abscess Past Anesthesia/Blood Transfusion Reactions: No Reported Reaction Additional Past Anesthesia/Blood Transfusion Reaction / Comment(s): platelet transfusions with no reaction r/t chemo Date of Last Stent Placement:: 2017 Past Psychological History: No Psychological Hx Reported Additional Psychological History / Comment(s): Pt states he was released from penitentiary recently (driving on suspended license) and during his time in penitentiary he lost his job and insurance. He resides with his son. He uses no assistive devices. He no longer drives, his son takes him places. Smoking Status: Former smoker Past Alcohol Use History: None Reported Additional Past Alcohol Use History / Comment(s): Pt started smoking when he was 13 1ppd and recently quit. Drinks occasionally and eats marijuana gummies. Past Drug Use History: Marijuana Additional Drug Use History / Comment(s): Pt denies any drug use. [facility] documents marijuana. - Past Family History Father Family Medical History: No Reported History Additional Family Medical History / Comment(s): Father of "natural causes" at the age of 79yrs. Mother Family Medical History: COPD, Coronary Artery Disease (CAD) Additional Family Medical History / Comment(s): Mother is 76yrs old. She has had several MIs, 6 cardiac stents and a 4 vessel CABG. Medications and Allergies Home Medications Medication Instructions Recorded Confirmed Type Atorvastatin [Lipitor] 80 mg PO HS 03/04/21 08/28/23 History Dapagliflozin Propanediol [Farxiga] 10 mg PO DAILY #30 tab 09/01/22 08/28/23 Rx Spiriva Respimat 1.25mcg/Actuation 2 puff INHALATION RT-HS #0 09/01/22 08/28/23 Rx Mist Albuterol Inhaler [Ventolin Hfa 1 - 2 puff INHALATION RT-Q6H PRN 06/06/23 08/28/23 History Inhaler] Hydrocodone/Acetaminophen 1 tab PO QID PRN 06/06/23 08/28/23 History [Hydrocodone/Acetaminophen 10-300 mg] Metoprolol Tartrate [Lopressor] 25 mg PO BID 06/06/23 08/28/23 History Spironolactone [Aldactone] 50 mg PO DAILY 06/06/23 08/28/23 History lisinopriL [Zestril] 20 mg PO DAILY 08/28/23 08/28/23 History Allergies Allergy/AdvReac Type Severity Reaction Status Date / Time Penicillins Allergy Dyspnea & Verified 08/28/23 12:25 Hives all over Physical Exam Osteopathic Statement: *. No significant issues noted on an osteopathic structural exam other than those noted in the History and Physical/Consult. Vitals: Vital Signs Temp Pulse Pulse Resp BP BP Pulse Ox 08/28/23 15:17 97.7 F 79 18 98/62 98 08/28/23 15:15 97.7 F 76 16 98/62 98 08/28/23 14:54 102/57 08/28/23 14:31 75 18 97/55 95 08/28/23 13:34 110 H 18 94/84 99 08/28/23 12:01 115 H 20 121/80 100 08/28/23 11:40 125 H 26 H 110/81 99 08/28/23 11:15 97.9 F 197 H 20 97 Intake and Output 08/28/23 08/28/23 08/28/23 06:59 14:59 22:59 Other: Weight 70.307 kg 70.307 kg Results CBC & Chem 7: 08/28/23 11:31 08/28/23 11:31 Labs: Abnormal Lab Results - Last 24 Hours (Table) 08/28/23 08/28/23 Range/Units 11:31 11:31 MCHC 30.8 L (31.0-37.0) g/dL RDW 19.2 H (11.5-15.5) % Neutrophils # 8.0 H (1.3-7.7) k/uL Lymphocytes # 0.9 L (1.0-4.8) k/uL Sodium 133 L (137-145) mmol/L BUN 21 H (9-20) mg/dL Glucose 136 H (74-99) mg/dL Calcium 11.5 H (8.4-10.2) mg/dL Thrombosis Risk Factor Assmnt - Choose All That Apply Each Factor Represents 1 point: Abnormal pulmonary function (COPD) Each Risk Factor Represents 2 Points: Age 61-74 years Thrombosis Risk Factor Assessment Total Risk Factor Score: 3 Thrombosis Risk Factor Assessment Level: Moderate Risk
[2023-08-28] MEDS: SODIUM CHLORIDE 0.9% 1,000 ML IV SCH (17:22)
[2023-08-28] MEDS: HYDROcodone/APAP 10-325MG 1 EACH TAB PO PRN (17:23)
[2023-08-28] MEDS: METOPROLOL TARTRATE 25 MG TAB PO SCH (20:31)
[2023-08-28] MEDS: ATORVASTATIN 80 MG TAB PO SCH (20:31)
[2023-08-28] MEDS: ACETAMINOPHEN TAB 325 MG TAB PO PRN (20:31)
[2023-08-28] MEDS: HEPARIN SODIUM 1,000 UN/ML (10ML VL) IV PRN (21:37)
[2023-08-28] MEDS: ALBUTEROL NEBULIZED 2.5 MG/3 ML INHALATION PRN (21:42)
[2023-08-28] MEDS: IPRATROPIUM 0.5 MG/2.5 ML NEBU INHALATION SCH (21:42)
[2023-08-28] MEDS: METOPROLOL TARTRATE 25 MG TAB PO STA (22:42)
[2023-08-28 23:03] LABS: Glucose,Whole Blood 94 mg/dL (70-110)
[2023-08-29 07:17] LABS: Ionized Calcium 5.7 mg/dL (4.5-5.3)
[2023-08-29 07:25] LABS: African American GFR (CKD) >90 (>60 ml/min/1.73 sqM); Anion Gap 5 mmol/L; Blood Urea Nitrogen 15 mg/dL (9-20); Calcium 10.1 mg/dL (8.4-10.2); Carbon Dioxide 22 mmol/L (22-30); Chloride 103 mmol/L (98-107); Glucose 98 mg/dL (74-99); Non-African American GFR(CKD) >90 (>60 ml/min/1.73 sqM); Potassium 4.4 mmol/L (3.5-5.1); Sodium 130 mmol/L (137-145)
[2023-08-29] MEDS: SPIRONOLACTONE 25 MG TAB PO SCH (08:38)
[2023-08-29] MEDS: lisinopriL 20 MG TAB PO SCH (08:38)
[2023-08-29] MEDS: DAPAGLIFLOZIN PROPANEDIOL 10 MG TABLET PO SCH (08:38)
[2023-08-29] MEDS: ASPIRIN 325 MG TAB PO SCH (08:46)
[2023-08-29] MEDS: ASPIRIN 81 MG PO SCH (08:56)
[2023-08-29] MEDS: PROCHLORPERAZINE INJ 10 MG/2 ML VIAL IVP STA (08:57)
[2023-08-29] MEDS: KETOROLAC 15 MG/ML 1 ML VIAL IVP STA (08:57)
[2023-08-29] MEDS: diphenhydrAMINE 50 MG/ML 1 ML VIAL IVP STA (08:57)
[2023-08-29] MEDS: AMIODARONE 200 MG TAB PO SCH (10:27)
[2023-08-29 11:02] LABS: Chol/HDL Ratio 2.48 Ratio; LDL Cholesterol,Calculated 24.1 mg/dL (0.0-131.0); VLDL Calculation 15.86 mg/dL (5.00-40.00)
--- NOTE | 2023-08-29 12:31 | P.CRDCN ---
History of Present Illness Consult date: 08/29/23 Reason for Consult (text): Atrial fibrillation with RVR History of present illness: This is a 62-year-old male patient of Dr. Tabares with past medical history of hyperlipidemia, hypertension, history of SVT, lung cancer receiving radiation, COPD, coronary artery disease with prior myocardial infarction. We have been asked to evaluate the patient for atrial fibrillation with RVR. Patient initial EKG was SVT at 204 bpm. Patient was given adenosine and heart rate slowed and subsequently he was in atrial fibrillation. He has been started on heparin drip and Cardizem drip. He denies having any chest pain. He states it was palpitations he was having. He has subsequently converted to sinus rhythm. EKG: #1 SVT 204 bpm, #2 atrial fibrillation at 132 bpm, followed by sinus rhythm 83 bpm, Chest x-ray:Persistent but improving infiltrate in the region of the superior segmental left lower lobe Laboratory studies: Troponin negative x 3. Hemoglobin 13.7. Sodium 130, potassium 4.4, creatinine 0.61. Triglycerides 79, cholesterol 67, LDLs 24, HDL 27. TSH 0.855. Home cardiac medications: Atorvastatin 80 mg at bedtime, Farxiga 10 mg daily, lisinopril 20 mg daily, Lopressor 25 mg twice daily, spironolactone 50 mg daily Echocardiogram performed 08/27/2022 reveals EF of 35 to 40%, apical hypokinesis. Cardiac catheterization history: February 2017 with stenting to the proximal RCA, distal RCA, and proximal OM1 Review Of Systems: At the time of my exam: CONSTITUTIONAL: Denies fever or chills. HEENT: Denies blurred vision, vision changes, or eye pain. Denies hemoptysis CARDIOVASCULAR: Denies chest pain. Denies orthopnea. Denies PND. Denies palpitations RESPIRATORY: Denies shortness of breath. GASTROINTESTINAL: Denies abdominal pain. Denies nausea or vomiting. HEMATOLOGIC: Denies bleeding disorders. GENITOURINARY: Denies any blood in urine. SKIN: Denies puritis. Denies rash. Physical examination: Gen: This is a 62-year-old male in no acute distress VS: reviewed HEENT: Head is atraumatic, normocephalic. Pupils equal, round. Sclerae is anicteric. NECK: Supple. No JVD. LUNGS: Clear to auscultation. No wheezes or rhonchi. No intercostal retractions. HEART: Regular rate and rhythm. No murmur. ABDOMEN: Soft No tenderness. EXTREMITIES: No pedal edema. No calf tenderness. NEUROLOGICAL: Patient is awake, alert and oriented x3. Assessment: New onset paroxysmal atrial fibrillation Lung cancer History of nonsustained ventricular tachycardia Coronary artery disease with previous stenting History of ischemic cardiomyopathy Hypertension Hyperlipidemia COPD Former tobacco use and dependence Plan: Resume patient's home cardiac medications Start patient on amiodarone 400 mg twice daily for 1 week and then 200 mg twice daily Discontinue Cardizem drip Transition IV heparin to anticoagulation if cleared by oncology. Use of oral anticoagulation will need to be evaluated if benefit out ways bleeding risk. Further recommendations to follow based upon clinical course At the time of discharge, patient will follow-up with Dr. Tabares in the office. Thank you kindly for this consultation. Nurse practitioner note has been reviewed, I agree with documented findings and plan of care. Patient was seen and examined. Past Medical History Past Medical History: Coronary Artery Disease (CAD), Cancer, Chest Pain / Angina, COPD, Hyperlipidemia, Hypertension, Myocardial Infarction ([place]) Additional Past Medical History / Comment(s): SVT with chest pain/palpitations- chemically converted(2023), lung cancer with chemo and radiation Last Myocardial Infarction Date:: 2017 History of Any Multi-Drug Resistant Organisms: MRSA Date of last positivie culture/infection: 12/23/2013 MDRO Source:: Face Past Surgical History: Heart Catheterization With Stent Additional Past Surgical History / Comment(s): I&D of Right inframandibular abscess. 3 cardiac stents, bronchoscopy for abscess Past Anesthesia/Blood Transfusion Reactions: No Reported Reaction Additional Past Anesthesia/Blood Transfusion Reaction / Comment(s): platelet transfusions with no reaction r/t chemo Date of Last Stent Placement:: 2017 Past Psychological History: No Psychological Hx Reported Additional Psychological History / Comment(s): Pt states he was released from [facility] recently (driving on suspended license) and during his time in [facility] he lost his job and insurance. He resides with his son. He uses no assistive devices. He no longer drives, his son takes him places. Smoking Status: Former smoker Past Alcohol Use History: None Reported Additional Past Alcohol Use History / Comment(s): Pt started smoking when he was 13 1ppd and recently quit. Drinks occasionally and eats marijuana gummies. Past Drug Use History: Marijuana Additional Drug Use History / Comment(s): Pt denies any drug use. PMH documents marijuana. - Past Family History Father Family Medical History: No Reported History Additional Family Medical History / Comment(s): Father of "natural causes" at the age of 79yrs. Mother Family Medical History: COPD, Coronary Artery Disease (CAD) Additional Family Medical History / Comment(s): Mother is 76yrs old. She has had several MIs, 6 cardiac stents and a 4 vessel CABG. Medications and Allergies Home Medications Medication Instructions Recorded Confirmed Type Atorvastatin [Lipitor] 80 mg PO HS 03/04/21 08/28/23 History Dapagliflozin Propanediol [Farxiga] 10 mg PO DAILY #30 tab 09/01/22 08/28/23 Rx Spiriva Respimat 1.25mcg/Actuation 2 puff INHALATION RT-HS #0 09/01/22 08/28/23 Rx Mist Albuterol Inhaler [Ventolin Hfa 1 - 2 puff INHALATION RT-Q6H PRN 06/06/23 08/28/23 History Inhaler] Hydrocodone/Acetaminophen 1 tab PO QID PRN 06/06/23 08/28/23 History [Hydrocodone/Acetaminophen 10-300 mg] Metoprolol Tartrate [Lopressor] 25 mg PO BID 06/06/23 08/28/23 History Spironolactone [Aldactone] 50 mg PO DAILY 06/06/23 08/28/23 History lisinopriL [Zestril] 20 mg PO DAILY 08/28/23 08/28/23 History Allergies Allergy/AdvReac Type Severity Reaction Status Date / Time Penicillins Allergy Dyspnea & Verified 08/28/23 12:25 Hives all over Physical Exam Vitals: Vital Signs Temp Pulse Pulse Resp BP BP Pulse Ox 08/29/23 08:37 98.1 F 67 17 106/65 97 08/29/23 08:09 68 08/29/23 07:57 64 98 08/29/23 04:00 98.1 F 71 16 112/73 98 08/29/23 01:31 82 18 08/28/23 23:51 97.7 F 91 20 127/77 96 08/28/23 23:16 88 20 124/77 98 08/28/23 21:53 84 08/28/23 21:44 80 08/28/23 21:20 84 20 112/72 98 08/28/23 19:44 82 18 08/28/23 19:43 98.6 F 82 18 108/72 98 08/28/23 15:17 97.7 F 79 18 98/62 98 08/28/23 15:15 97.7 F 76 16 98/62 98 08/28/23 14:54 102/57 08/28/23 14:31 75 18 97/55 95 08/28/23 13:34 110 H 18 94/84 99 08/28/23 12:08 198 H 20 73/53 96 08/28/23 12:01 115 H 20 121/80 100 08/28/23 11:40 125 H 26 H 110/81 99 08/28/23 11:15 97.9 F 197 H 20 97 Intake and Output 08/28/23 08/29/23 08/29/23 22:59 06:59 14:59 Intake Total 173.825 1 118 Balance 173.825 1 118 Intake: Intake, IV Titration 55.825 1 Amount Diltiazem 125 mg In 1 Sodium Chloride 0.9% 100 ml @ 5 MG/HR 5 mls/hr IV .Q24H [facility] Rx#:[id number] Heparin Sod,Pork in 0.45% 55.825 NaCl 25,000 unit In 0.45 % NaCl 1 250ml.bag @ 12 UNITS/KG/HR 8.437 mls/hr IV .Q24H [facility] Rx#: [id number] Oral 118 118 Other: Voiding Method Toilet Urinal Weight 70.307 kg 67.6 kg Results 08/28/23 11:31 08/29/23 06:42 Cardiac Enzymes 08/28/23 08/28/23 08/28/23 Range/Units 11:31 11:31 14:16 AST 24 (17-59) U/L Troponin I <0.012 <0.012 (0.000-0.034) ng/mL 08/28/23 Range/Units 17:13 AST (17-59) U/L Troponin I <0.012 (0.000-0.034) ng/mL Coagulation 08/28/23 08/28/23 08/29/23 Range/Units 11:31 20:27 06:42 PT 10.6 (10.0-12.5) sec APTT 29.9 31.8 H 49.5 H (22.0-30.0) sec CBC 08/28/23 Range/Units 11:31 WBC 9.3 (3.8-10.6) k/uL RBC 4.92 (4.30-5.90) m/uL Hgb 13.7 (13.0-17.5) gm/dL Hct 44.4 (39.0-53.0) % Plt Count 383 (150-450) k/uL Comprehensive Metabolic Panel 08/28/23 08/29/23 Range/Units 11:31 06:42 Sodium 133 L 130 L (137-145) mmol/L Potassium 4.6 4.4 (3.5-5.1) mmol/L Chloride 99 103 (98-107) mmol/L Carbon Dioxide 24 22 (22-30) mmol/L BUN 21 H 15 (9-20) mg/dL Creatinine 0.76 0.61 L (0.66-1.25) mg/dL Glucose 136 H 98 (74-99) mg/dL Calcium 11.5 H 10.1 (8.4-10.2) mg/dL AST 24 (17-59) U/L ALT 13 (4-49) U/L Alkaline Phosphatase 78 (38-126) U/L Total Protein 7.5 (6.3-8.2) g/dL Albumin 3.7 (3.5-5.0) g/dL Current Medications Generic Name Dose Route Start Last Admin Trade Name Freq PRN Reason Stop Dose Admin Acetaminophen 650 mg 08/28/23 15:59 08/29/23 04:04 Acetaminophen Tab 325 Mg Tab PO 650 mg Q6HR PRN Administration Mild Pain or Fever > 100.5 Hydrocodone Bitart/Acetaminophen 1 each 08/28/23 15:56 08/29/23 08:38 Hydrocodone/Apap 10-325mg 1 Each Tab PO 1 each QID PRN Administration Pain Albuterol Sulfate 2.5 mg 08/28/23 15:56 08/28/23 21:42 Albuterol Nebulized 2.5 Mg/3 Ml INHALATION 2.5 mg RT-Q6H PRN Administration Shortness Of Breath Aspirin 81 mg 08/29/23 09:00 08/29/23 08:56 Aspirin 81 Mg PO 81 mg DAILY [facility] Administration Atorvastatin Calcium 80 mg 08/28/23 21:00 08/28/23 20:31 Atorvastatin 80 Mg Tab PO 80 mg HS [facility] Administration Calcium Carbonate/Glycine 1,000 mg 08/28/23 15:59 Calcium Carbonate 500 Mg Chewable PO Q4HR PRN Dyspepsia Dapagliflozin 10 mg 08/29/23 09:00 08/29/23 08:38 Dapagliflozin Propanediol 10 Mg Tablet PO 10 mg DAILY [facility] Administration Heparin Sodium (Porcine) 0 unit 08/28/23 21:27 08/28/23 21:37 Heparin Sodium 1,000 Un/Ml (10ml Vl) IV 3,500 unit PER PROTOCOL PRN Administration Low PTT Protocol Heparin Sodium/Sodium Chloride 250 mls @ 8.437 mls/hr 08/28/23 13:45 08/28/23 21:22 25,000 unit/ Sodium Chloride IV 15 units/kg/hr .Q24H [facility] 10.546 mls/hr Titration Protocol 12 UNITS/KG/HR Sodium Chloride 1,000 mls @ 75 mls/hr 08/28/23 16:15 08/29/23 05:53 Saline 0.9% IV Not Given .[id number] [facility] Diltiazem HCl 125 mg/ Sodium 125 mls @ 5 mls/hr 08/28/23 23:30 08/28/23 23:39 Chloride IV 10 mg/hr .Q24H [facility] 10 mls/hr Infusion 5 MG/HR Ipratropium Flushing 0.5 mg 08/28/23 20:00 08/29/23 07:57 Ipratropium 0.5 Mg/2.5 Ml Nebu INHALATION 0.5 mg RT-QID [facility] Administration Lisinopril 20 mg 08/29/23 09:00 08/29/23 08:38 Lisinopril 20 Mg Tab PO 20 mg DAILY [facility] Administration Melatonin 3 mg 08/28/23 15:59 Melatonin 3 Mg Tablet PO HS PRN Insomnia Metoprolol Tartrate 25 mg 08/28/23 21:00 08/29/23 08:38 Metoprolol Tartrate 25 Mg Tab PO 25 mg BID [facility] Administration Naloxone HCl 0.2 mg 08/28/23 15:59 Naloxone 0.4 Mg/Ml 1 Ml Vial IV Q2M PRN Opioid Reversal Nitroglycerin 0.4 mg 08/28/23 13:53 Nitroglycerin Sl Tabs 0.4 Mg Tab SUBLINGUAL Q5M PRN Chest Pain Ondansetron HCl 4 mg 08/28/23 15:59 Ondansetron 4 Mg/2 Ml Vial IVP Q8HR PRN Nausea And Vomiting Spironolactone 50 mg 08/29/23 09:00 08/29/23 08:38 Spironolactone 25 Mg Tab PO 50 mg DAILY [facility] Administration Intake and Output 08/28/23 08/29/23 08/29/23 22:59 06:59 14:59 Intake Total 173.825 1 118 Balance 173.825 1 118 Intake: Intake, IV Titration 55.825 1 Amount Diltiazem 125 mg In 1 Sodium Chloride 0.9% 100 ml @ 5 MG/HR 5 mls/hr IV .Q24H [facility] Rx#:[id number] Heparin Sod,Pork in 0.45% 55.825 NaCl 25,000 unit In 0.45 % NaCl 1 250ml.bag @ 12 UNITS/KG/HR 8.437 mls/hr IV .Q24H [facility] Rx#: [id number] Oral 118 118 Other: Voiding Method Toilet Urinal Weight 70.307 kg 67.6 kg 08/28/23 11:31 08/29/23 06:42
[2023-08-29 14:22] VITALS: BMI 19.6
--- NOTE | 2023-08-29 14:41 | P.PN ---
Subjective Progress Note Date: 08/29/23 Hospital course: Patient is a very pleasant 62-year-old male with known history of SVT, lung cancer currently receiving radiation, HTN, HLD, COPD, coronary artery disease with prior myocardial infarction who presented to the emergency department with chest pain. On arrival to the ER he was tachycardic with a pulse of 197. Initial labs included CBC, coags, CMP, troponin, and TSH which were remarkable for calcium of 11.5 and sodium of 133. Initial EKG in the emergency department showed SVT at 204 bpm. Patient was given adenosine and heart rate slowed. On 1 EKG after this he had possible atrial fibrillation. Subsequent EKGs revealed normal sinus rhythm. In the ER he did receive adenosine 6 and then 12 as well as a Cardizem drip and heparin drip. Cardiology was consulted and patient was admitted under our services. Patient continued to have recurrent episodes of SVT possible A-fib RVR. Cardizem discontinued and patient started on amiodarone infusion. Physical exam: Vital signs reviewed and stable. General: Nontoxic, no distress and appears stated age. Derm: Skin warm and dry, normal coloration for ethnicity. Head: Atraumatic, normocephalic and symmetric. Eyes: EOMs intact, no lid lag, and anicteric sclera Mouth: no lip lesions, mucus membranes moist Cardiovascular: regular rate and rhythm with normal S1S2, no murmur, positive posterior tibial pulses bilaterally, and cap refill < 2 seconds. Lungs: Respirations even, regular, and unlabored on room air. Lungs CTA bilaterally, no rhonchi, no rales, no wheezing, and no accessory muscle usage. Abdominal: soft, nontender to palpation, no guarding, no appreciable organome jorge Ext: ROM intact. No gross muscle atrophy, no edema, no contractures Neuro: Speech clear, face symmetrical and CN II-XII grossly intact with no noted focal neuro deficits Psych: Alert and oriented to person, place, time, and situation. Appropriate and pleasant affect. Assessment and Plan of Care: SVT abated with adenosine Possible transient A-fib currently in normal sinus rhythm- Ischemic cardiomyopathy with ejection fraction 35 to 40% 09/05 Hypertension Dyslipidemia COPD without exacerbation Squamous cell carcinoma of the lung -Continue heparin infusion at 12 units/kg/h with close monitoring of PTT every 6 hours for goal therapeutic range of 44 to 79 seconds. -Continue amiodarone milligrams twice -Telemetry, echocardiogram -Resume patient's metoprolol 25 mg twice daily, lisinopril 20 mg daily, Farxiga 10 mg daily, and Aldactone 50 mg daily -Troponins were negative at less than 0.012 x 3 draws. -Cardiology following, discussed plan of care with cardiology [facility]ER. -Order placed for echocardiogram. Hypercalcemia, likely related to underlying malignancy -IV fluids at 75 cc/h -Repeat ionized calcium in a.m. Data and imaging reviewed: Vital signs reviewed. Blood pressure 106/65, heart rate 67, respiratory rate 17, temp 98.1 F, and SpO2 of 97% on room air. Morning labs reviewed. BMP showing hyponatremia with sodium of 130. PTT therapeutic at 49.5. Ionized calcium 5.7. Lipid profile unremarkable with the exception of low HDL of 27.00. CODE STATUS: Full code DVT prophylaxis: Heparin infusion Anticipated discharge date: Pending clinical course Anticipated discharge place: Home Patient was seen independently by Nurse Pracitioner. This document was prepared using [employer] dictation software. Please allow for errors in car distributor, while rare they do occur. I reviewed the documentation as provided by the GREGOR above, who is the original author of this note. I agree with the documented assessment and plan, with the following changes: none Objective - Vital Signs Vital signs: Vital Signs Temp 98.1 F 08/29/23 08:37 Pulse 64 08/29/23 11:50 Resp 17 08/29/23 08:37 BP 106/65 08/29/23 08:37 Pulse Ox 97 08/29/23 08:37 FiO2 Intake & Output 08/28/23 08/29/23 08/29/23 18:59 06:59 18:59 Intake Total 118 56.825 118 Balance 118 56.825 118 Weight 70.307 kg 67.6 kg Intake: Intake, IV Titration 56.825 Amount Diltiazem 125 mg In 1 Sodium Chloride 0.9% 100 ml @ 5 MG/HR 5 mls/hr IV .Q24H [facility] Rx#:[id number] Heparin Sod,Pork in 0.45% 55.825 NaCl 25,000 unit In 0.45 % NaCl 1 250ml.bag @ 12 UNITS/KG/HR 8.437 mls/hr IV .Q24H [facility] Rx#: [id number] Oral 118 118 Other: Voiding Method Toilet Urinal - Labs CBC & Chem 7: 08/28/23 11:31 08/29/23 06:42 Labs: Abnormal Lab Results - Last 24 Hours (Table) 08/28/23 08/29/23 08/29/23 Range/Units 20:27 06:42 06:42 APTT 31.8 H 49.5 H (22.0-30.0) sec Sodium 130 L (137-145) mmol/L Creatinine 0.61 L (0.66-1.25) mg/dL Ionized Calcium Zofia 5.7 H (4.5-5.3) mg/dL HDL Cholesterol 27.00 L (40.00-60.00) mg/dL
[2023-08-30 07:16] LABS: Anisocytosis Slight; HCT 32.5 % (39.0-53.0); Hypochromasia Marked; MCH 28.3 pg (25.0-35.0); MCHC 30.5 g/dL (31.0-37.0); MCV 92.8 fL (80.0-100.0); Mean Platelet Volume 9.2; Platelet Count 286 k/uL (150-450); WBC 8.3 k/uL (3.8-10.6)
[2023-08-30 07:19] LABS: HGB 9.9 gm/dL (13.0-17.5)
[2023-08-30 07:35] LABS: ALT 10 U/L (4-49); AST 17 U/L (17-59); African American GFR (CKD) >90 (>60 ml/min/1.73 sqM); Albumin 2.6 g/dL (3.5-5.0); Alkaline Phosphatase 57 U/L (38-126); Anion Gap 4 mmol/L; Blood Urea Nitrogen 15 mg/dL (9-20); Calcium 9.8 mg/dL (8.4-10.2); Carbon Dioxide 24 mmol/L (22-30); Chloride 105 mmol/L (98-107); Glucose 94 mg/dL (74-99); Magnesium 1.7 mg/dL (1.6-2.3); Non-African American GFR(CKD) >90 (>60 ml/min/1.73 sqM); Potassium 4.2 mmol/L (3.5-5.1); Sodium 133 mmol/L (137-145); Total Bilirubin 0.2 mg/dL (0.2-1.3); Total Protein 5.6 g/dL (6.3-8.2)
--- NOTE | 2023-08-30 11:06 | P.PN ---
Subjective Progress Note Date: 08/30/23 Hospital course: Patient is a very pleasant 62-year-old male with known history of SVT, lung cancer currently receiving radiation, HTN, HLD, COPD, coronary artery disease with prior myocardial infarction who presented to the emergency department with chest pain. On arrival to the ER he was tachycardic with a pulse of 197. Initial labs included CBC, coags, CMP, troponin, and TSH which were remarkable with the exception of calcium of 11.5 and sodium of 133. Initial EKG in the emergency department showed SVT at 204 bpm. Patient was given adenosine and heart rate slowed. On 1 EKG after this he was also noted to have atrial fibrillation. Subsequent EKGs revealed normal sinus rhythm. In the ER he did receive adenosine 6 and then 12 as well as a Cardizem drip and heparin drip. Cardiology was consulted and patient was admitted under our services. Patient continued to have recurrent episodes of SVT and A-fib RVR. Cardizem disco ntinued and patient started on amiodarone. Physical exam: Patient reporting constant intractable headache to right lateral frontal and temporal region. Patient reports constant pain/throbbing. He denies changes in vision, photophobia, difficulties with or changes in hearing or tinnitus, difficulties with or changes in speech or thought process and denies experiencing any numbness/tingling/weakness in his extremities. Patient also denies having any episodes of noted bleeding, tarry stools, hematuria or brui sing. Vital signs reviewed and stable. General: Nontoxic, no distress and appears stated age. Derm: Skin warm and dry, normal coloration for ethnicity. Head: Atraumatic, normocephalic and symmetric. Eyes: EOMs intact, no lid lag, and anicteric sclera Mouth: no lip lesions, mucus membranes moist Cardiovascular: regular rate and rhythm with normal S1S2, no murmur, positive posterior tibial pulses bilaterally, and cap refill < 2 seconds. Lungs: Respirations even, regular, and unlabored on room air. Lungs CTA bilaterally, no rhonchi, no rales, no wheezing, and no accessory muscle usage. Abdominal: soft, nontender to palpation, no guarding, no appreciable organomegaly Ext: ROM intact. No gross muscle atrophy, no edema, no contractures Neuro: Speech clear, face symmetrical and CN II-XII grossly intact with no noted focal neuro deficits Psych: Alert and oriented to person, place, time, and situation. Appropriate and pleasant affect. Assessment and Plan of Care: Acute anemia, suspect dilution -Patient denies any episodes of bleeding or bruising, possibly acute blood loss anemia with patient currently being on a heparin infusion however it is believed to be secondary to dilution as patient was treated with IV fluids for hypercalcemia. -Order placed for repeat CBC at 12:00. Discussed with hematology/oncology recommending continuation of anticoagulation and starting patient on oral anticoagulant with Eliquis this evening. -Patient also started on Protonix 40 mg twice daily pending further results. Intractable headache/migraine -Order placed for stat CT brain -In addition to Tylenol, patient given Benadryl 25 mg IVP and Compazine 10 mg IVP. -Continue to monitor for improvement SVT Paroxysmal A-fib with RVR currently in normal sinus rhythm- Ischemic cardiomyopathy with ejection fraction 35 to 40% Hypertension Dyslipidemia COPD without exacerbation Squamous cell carcinoma of the lung -Continue heparin infusion at 12 units/kg/h with close monitoring of PTT every 6 hours for goal therapeutic range of 44 to 79 seconds. -Continue amiodarone milligrams twice -Telemetry, echocardiogram -Resume patient's metoprolol 25 mg twice daily, lisinopril 20 mg daily, Farxiga 10 mg daily, and Aldactone 50 mg daily -Troponins were negative at less than 0.012 x 3 draws. -Cardiology following, discussed plan of care with cardiology [facility] ADMINISTRATOR. -Order placed for echocardiogram. Hypercalcemia, likely related to underlying malignancy -IV fluids at 75 cc/h -Repeat ionized calcium in a.m. Data and imaging reviewed: Vital signs reviewed. Blood pressure soft this morning at 97/59, heart rate 72, respiratory rate 16, temp 98.0 F, and SpO2 of 99% on room air. Morning labs reviewed. CBC showing acute anemia with hemoglobin of 9.9 from previous 13.7. PTT therapeutic at 56.7. BMP showing hyponatremia with sodium 133. CODE STATUS: Full code DVT prophylaxis: Heparin infusion Anticipated discharge date: Likely within the next [address]: Home Patient was seen independently by Nurse Pracitioner. This document was prepared using [employer] dictation software. Please allow for errors in hospital television rental clerk, while rare they do occur. Tony Vazquez NP rendered care for this patient independently, reviewed the findings and plan as documented in the note above. I did not physically speak with or examine the patient on this date. Objective - Vital Signs Vital signs: Vital Signs Temp 98.6 F 08/30/23 04:00 Pulse 68 08/30/23 08:06 Resp 16 08/30/23 04:00 BP 97/52 08/30/23 04:00 Pulse Ox 96 08/30/23 04:00 FiO2 Intake & Output 08/29/23 08/30/23 08/30/23 18:59 06:59 18:59 Intake Total 659.543 Balance 659.543 Weight 67.6 kg 68.4 kg Intake: Intake, IV Titration 187.543 Amount Heparin Sod,Pork in 0.45% 187.543 NaCl 25,000 unit In 0.45 % NaCl 1 250ml.bag @ 12 UNITS/KG/HR 8.437 mls/hr IV .Q24H [facility] Rx#: [id number] Oral 472 Other: Voiding Method Toilet Toilet Urinal Urinal # Voids 2 - Labs CBC & Chem 7: 08/30/23 15:00 08/30/23 06:18 Labs: Abnormal Lab Results - Last 24 Hours (Table) 08/29/23 08/30/23 08/30/23 Range/Units 06:42 06:18 06:18 RBC 3.50 L (4.30-5.90) m/uL Hgb 9.9 L D (13.0-17.5) gm/dL Hct 32.5 L (39.0-53.0) % MCHC 30.5 L (31.0-37.0) g/dL RDW 19.0 H (11.5-15.5) % APTT (22.0-30.0) sec Sodium 133 L (137-145) mmol/L Total Protein 5.6 L (6.3-8.2) g/dL Albumin 2.6 L (3.5-5.0) g/dL HDL Cholesterol 27.00 L (40.00-60.00) mg/dL 08/30/23 Range/Units 06:18 RBC (4.30-5.90) m/uL Hgb (13.0-17.5) gm/dL Hct (39.0-53.0) % MCHC (31.0-37.0) g/dL RDW (11.5-15.5) % APTT 56.7 H (22.0-30.0) sec Sodium (137-145) mmol/L Total Protein (6.3-8.2) g/dL Albumin (3.5-5.0) g/dL HDL Cholesterol (40.00-60.00) mg/dL
--- NOTE | 2023-08-30 12:07 | CT ---
EXAMINATION TYPE: CT brain wo con CT DLP: 1203.4 mGycm, Automated exposure control for dose reduction was used. DATE OF EXAM: 08/30/2023 11:45 AM COMPARISON: MR brain 01/19/2023, 02/27/2021, CT brain C-spine 11/19/2011. CLINICAL INDICATION:Male, 62 years old with history of severe headache on heparin, severe headache on heparin TECHNIQUE: Brain: Multiple axial CT images of the brain were obtained without IV contrast. . Coronal and sagitta l reformats reviewed. FINDINGS: Brain: Extra-axial spaces: No abnormal extra-axial fluid collections. Ventricular system: Within normal limits Cerebral parenchyma: No acute intraparenchymal hemorrhage or mass effect. The brothers-white junction is well differentiated. Scattered hypoattenuating areas are seen within the subcortical white matter. Cerebellum: Unremarkable. Mass effect: No evidence of midline shift. Intracranial vasculature: Atherosclerotic calcifications of the intracranial vessels. Soft tissues: Normal. Calvarium/osseous structures: No depressed skull fracture. Paranasal sinuses and mastoid air cells: Clear Visualized orbits: Orbital contents are intact. IMPRESSION: 1. No acute intracranial process. 2. Nonspecific white matter changes, likely secondary to chronic small vessel ischemic disease.
[2023-08-30] MEDS: diphenhydrAMINE 50 MG/ML 1 ML VIAL IVP STA (13:18)
[2023-08-30] MEDS: PANTOPRAZOLE 40 MG/10 ML VIAL IVP SCH (13:18)
[2023-08-30] MEDS: PROCHLORPERAZINE INJ 10 MG/2 ML VIAL IVP STA (13:18)
[2023-08-30] MEDS: MAGNESIUM OXIDE 400 MG TAB PO STA (13:18)
--- NOTE | 2023-08-30 14:44 | P.PN ---
Subjective Progress Note Date: 08/30/23 Reason for Consult (text): Atrial fibrillation with RVR History of present illness: This is a 62-year-old male patient of Dr. Tabares with past medical history of hyperlipidemia, hypertension, history of SVT, lung cancer receiving radiation, COPD, coronary artery disease with prior myocardial infarction. We have been asked to evaluate the patient for atrial fibrillation with RVR. Patient initial EKG was SVT at 204 bpm. Patient was given adenosine and heart rate slowed and subsequently he was in atrial fibrillation. He has been started on heparin drip and Cardizem drip. He denies having any chest pain. He states it was palpitations he was having. He has subsequently converted to sinus rhythm. EKG: #1 SVT 204 bpm, #2 atrial fibrillation at 132 bpm, followed by sinus rhythm 83 bpm, Chest x-ray:Persistent but improving infiltrate in the region of the superior segmental left lower lobe Laboratory studies: Troponin negative x 3. Hemoglobin 13.7. Sodium 130, potassium 4.4, creatinine 0.61. Triglycerides 79, cholesterol 67, LDLs 24, HDL 27. TSH 0.855. Home cardiac medications: Atorvastatin 80 mg at bedtime, Farxiga 10 mg daily, lisinopril 20 mg daily, Lopressor 25 mg twice daily, spironolactone 50 mg daily Echocardiogram performed 08/27/2022 reveals EF of 35 to 40%, apical hypokinesis. Cardiac catheterization history: February 2017 with stenting to the proximal RCA, distal RCA, and proximal OM1 08/29 Patient is seen today in follow-up. He remains in sinus rhythm. Blood pressure 97/59, heart rate 72, pulse ox 99% on room air. Repeat blood work reveals hemoglobin 9.9. Creatinine 0.73. Yesterday, patient was started on oral amiodarone with plan for tapering and Cardizem drip was discontinued. Anticoagulation to be started if cleared by oncology. Physical examination: Gen: This is a 62-year-old male in no acute distress VS: reviewed HEENT: Head is atraumatic, normocephalic. Pupils equal, round. Sclerae is anicteric. NECK: Supple. No JVD. LUNGS: Clear to auscultation. No wheezes or rhonchi. No intercostal retractions. HEART: Regular rate and rhythm. No murmur. ABDOMEN: Soft No tenderness. EXTREMITIES: No pedal edema. No calf tenderness. NEUROLOGICAL: Patient is awake, alert and oriented x3. Assessment: New onset paroxysmal atrial fibrillation Lung cancer History of nonsustained ventricular tachycardia Coronary artery disease with previous stenting History of ischemic cardiomyopathy Hypertension Hyperlipidemia COPD Former tobacco use and dependence Plan: Continue patient's home cardiac medications Continue patient on amiodarone 400 mg twice daily for 1 week and then 200 mg twice daily Transition IV heparin to anticoagulation if cleared by oncology. Use of oral anticoagulation will need to be evaluated if benefit out ways bleeding risk. Cardiology will sign off this case and follow on an as-needed basis. Please reconsult for any new concerns. Patient may follow-up in the office in one to [address] Tabares. Nurse practitioner note has been reviewed, I agree with documented findings and plan of care. Patient was seen and examined. Objective - Vital Signs Vital signs: Vital Signs Temp 98 F 08/30/23 08:10 Pulse 72 08/30/23 08:10 Resp 16 08/30/23 08:10 BP 97/59 08/30/23 08:10 Pulse Ox 99 08/30/23 08:10 FiO2 Intake & Output 08/29/23 08/30/23 08/30/23 18:59 06:59 18:59 Intake Total 659.543 118 Balance 659.543 118 Weight 67.6 kg 68.4 kg Intake: Intake, IV Titration 187.543 Amount Heparin Sod,Pork in 0.45% 187.543 NaCl 25,000 unit In 0.45 % NaCl 1 250ml.bag @ 12 UNITS/KG/HR 8.437 mls/hr IV .Q24H [facility] Rx#: [id number] Oral 472 118 Other: Voiding Method Toilet Toilet Urinal Urinal # Voids 2 - Labs CBC & Chem 7: 08/30/23 06:18 08/30/23 06:18 Labs: Abnormal Lab Results - Last 24 Hours (Table) 08/29/23 08/30/23 08/30/23 Range/Units 06:42 06:18 06:18 RBC 3.50 L (4.30-5.90) m/uL Hgb 9.9 L D (13.0-17.5) gm/dL Hct 32.5 L (39.0-53.0) % MCHC 30.5 L (31.0-37.0) g/dL RDW 19.0 H (11.5-15.5) % APTT (22.0-30.0) sec Sodium 133 L (137-145) mmol/L Total Protein 5.6 L (6.3-8.2) g/dL Albumin 2.6 L (3.5-5.0) g/dL HDL Cholesterol 27.00 L (40.00-60.00) mg/dL 08/30/23 Range/Units 06:18 RBC (4.30-5.90) m/uL Hgb (13.0-17.5) gm/dL Hct (39.0-53.0) % MCHC (31.0-37.0) g/dL RDW (11.5-15.5) % APTT 56.7 H (22.0-30.0) sec Sodium (137-145) mmol/L Total Protein (6.3-8.2) g/dL Albumin (3.5-5.0) g/dL HDL Cholesterol (40.00-60.00) mg/dL
[2023-08-30 15:26] LABS: Anisocytosis Slight; HCT 35.3 % (39.0-53.0); HGB 10.6 gm/dL (13.0-17.5); Hypochromasia Marked; MCH 27.8 pg (25.0-35.0); MCHC 29.9 g/dL (31.0-37.0); MCV 92.9 fL (80.0-100.0); Platelet Count 281 k/uL (150-450); RDW 19.1 % (11.5-15.5); WBC 10.8 k/uL (3.8-10.6)
--- NOTE | 2023-08-30 15:39 | CA ---
Transthoracic Echo Report Name: Fracisco Rene Age: 62 Gender: M : 1960 Exam Date: 08/30/2023 08:56 Exam Location: [facility] Ht (in): 73 Wt (lb): 149 Ordering Physician: Tony Vazquez Attending/Referring Phys: Trade Manager Key Rajan RDCS Procedure CPT: Indications: eval function and structure Cardiac Hx: Technical Quality: Fair Contrast 1: Total Dose (mL): Contrast 2: Total Dose (mL): MEASUREMENTS (Male / Female) Normal Values 2D ECHO LV Diastolic Diameter PLAX 4.8 cm 4.2 - 5.9 / 3.9 - 5.3 cm LV Systolic Diameter PLAX 3.5 cm IVS Diastolic Thickness 0.8 cm 0.6 - 1.0 / 0.6 - 0.9 cm LVPW Diastolic Thickness 0.7 cm 0.6 - 1.0 / 0.6 - 0.9 cm LV Relative Wall Thickness 0.3 LVOT Diameter 2.2 cm LV Diastolic Volume MOD BP 121.8 cm??? 67 - 155 / 56 - 104 cm??? LV Systolic Volume MOD BP 51.5 cm??? 22 - 58 / 19 - 49 cm??? LV Ejection Fraction MOD BP 57.7 % >= 55 % LV Cardiac Index MOD BP 2731.7 cm???/min???m??? LV Diastolic Volume MOD 4C 120.7 cm??? LV Systolic Volume MOD 4C 49.7 cm??? LV Ejection Fraction MOD 4C 58.8 % LV Cardiac Index MOD 4C 2756.4 cm???/min???m??? LV Diastolic Length 4C 9.4 cm LV Systolic Length 4C 7.7 cm LV Diastolic Volume MOD 2C 121.0 cm??? LV Systolic Volume MOD 2C 52.1 cm??? LV Ejection Fraction MOD 2C 56.9 % LV Cardiac Index MOD 2C 2672.2 cm???/min???m??? LV Diastolic Length 2C 9.1 cm LV Systolic Length 2C 7.5 cm LA Volume 33.4 cm??? 18 - 58 / 22 - 52 cm??? LA Volume Index 18.0 cm???/m??? 16 - 28 cm???/m??? DOPPLER AV Peak Velocity 147.3 cm/s AV Peak Gradient 8.7 mmHg AV Mean Velocity 104.0 cm/s AV Mean Gradient 4.8 mmHg AV Velocity Time Integral 27.1 cm LVOT Peak Velocity 105.2 cm/s LVOT Peak Gradient 4.4 mmHg LVOT Velocity Time Integral 18.2 cm LVOT Stroke Volume 71.8 cm??? LVOT Stroke Volume Index 37.8 ml/m??? LVOT Cardiac Index 2788.2 cm???/min???m??? AV Area Cont Eq vti 2.6 cm??? AV Area Cont Eq pk 2.8 cm??? MV Area PHT 3.9 cm??? Mitral E Point Velocity 58.9 cm/s Mitral A Point Velocity 68.1 cm/s Mitral E to A Ratio 0.9 MV Deceleration Time 196.8 ms PV Peak Velocity 81.1 cm/s PV Peak Gradient 2.6 mmHg FINDINGS Left Ventricle Left ventricular ejection fraction is estimated at 55-60 %. Left ventricular cavity size normal. Left ventricular wall thickness normal. No obvious regional wall motion abnormalities. Right Ventricle Normal right ventricular size and function. Unable to estimate the right ventricular systolic pressure. Right Atrium Normal right atrial size. Left Atrium Normal left atrial size. Mitral Valve Structurally normal mitral valve. No evidence for mitral valve prolapse. No mitral stenosis. Trace mitral regurgitation. Aortic Valve Trileaflet aortic valve. No aortic valve stenosis or regurgitation. Tricuspid Valve Structurally normal tricuspid valve. No tricuspid stenosis. Trace tricuspid regurgitation. Pulmonic Valve Structurally normal pulmonic valve. No pulmonic stenosis. No pulmonic regurgitation. Pericardium No pericardial effusion. Aorta Aortic annulus normal. Ascending aorta not well visualized. CONCLUSIONS Left ventricular ejection fraction 55-60% Trace mitral regurgitation Trace tricuspid regurgitation No pericardial effusion Previewed by: Dr. David Albarado DO (Electronically Signed) Final Date: 30 August 2023 15:37
[2023-08-30] MEDS: APIXABAN 5 MG TAB PO SCH (20:35)
--- NOTE | 2023-08-30 22:48 | P.CONS ---
History of Present Illness - Reason for Consult Consult date: 08/30/23 hx lung cancer, a-fib/RVR Requesting physician: Tony Vazquez - Chief Complaint chest pain - History of Present Illness Mr Rene is a 62 yo male pt of Dr. Hoyos who initially presented to ER 06/2020 with c/o of cough, hemoptysis intermittently for 7-10 days. CXR did not show any major abnormality. Recommended follow-up as an outpatient with his PCP and get a CT scan done. Patient did not have a PCP so finding a PCP took some time and he did put things off, as he was working and otherwise felt well. Ultimately had a CT chest 02/02/21. This showed a 8.6 x 6.8 cm soft tissue mass encasing the left hilum, contiguous with subcarinal adenopathy. This was causing mild na rrowing of the left mainstem bronchus and upper lobe branches. There was also a spiculated right perihilar mass measuring 4.1 x 2.4 cm with some central cavitation. There is a 6 cm nodule in the right midlung, and another 3 mm nodule in the right base, 6 mm nodular density in the right upper lobe. Paratracheal and subcarinal adenopathy measured 2.4 cm. Referred to Pulmonary and had bronchoscopy on 02/09/21 of the right and left upper lobes. 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 Referred to Medical Oncology. Had completion of staging with MRI, which was negative. PET scan confirmed uptake in both the right suprahilar, as well as the left hilar mass, with involvement of multiple mediastinal, hilar and subcarinal nodes. Biomarker testing showed positive PD1, with TPS 3-5%. TMB was high at 26+. He was started on immunotherapy 03/27/21. He did well for 19 cycles, then developed progression and was changed to Carbo/Gemzar starting 04/27/22. He had 4 cycles, completing those on 07/07/22. Dose was reduced with cycle 2, because of hematologic toxicity, and G-CSF was added. He was admitted after cycle 4, on 07/09/22, with lower extremity swelling not responding to Lasix, acute kidney injury, and hyperkalemia. It is felt that the patient had steroid insufficiency and was treated supportively, and was discharged on Decadron with follow-up scheduled with endocrinology outpatient. At his visit on 08/03/22 CT showed a partial response, it was decided to give him a treatment break. The patient was admitted to the hospital in mid 09/05 with shortness of breath, and tachycardia. CT angiogram done during that visit was negative for PE, but noted the right-sided lung mass to be larger in size. The patient improved with treatment for pneumonia, CHF and COPD exacerbation and continued on observation. Repeat CT 11/06 showing resolution of lung opacities, and decrease in the right-sided masslike area. At his visit on 01/18/23, he reported a new right-sided headache. He had attributed this to increase in his blood pressure medication, but this is persistent despite him stopping those medicines. MRI of the brain done was negative for metastases however, imaging did show evidence of progression in the lung on the right. The patient was therefore changed to Taxotere and Cyramza, starting the same on 02/10/23. Cyramza was then held after cycle 2, due to hemoptysis, and the patient has continued on Taxotere alone. He completed cycle 4 cycle of single agent Taxotere with GCSF last given 05/26/23. Imaging did not report any areas of new/metastatic disease. Known areas of disease slightly larger-suspect because of infection. He had hospital admission in May, and treatment has been held since due to persisting lung infection. Case was discussed with pulmonology who agreed to hold treatment to allow pt adequate to time to recover. At his last f/u on 07/27, pt was reporting persisting right sided headache, MRI brain was repeated on 08/01, which showed no evidence of mass, acute/subacute infarct, or abnormal enchancement, with nonspecific white matter changes. Plan was for pt to begin palliative RT once cleared by pulmonology and restart single agent Taxotere s/p RT. He has completed 2 of 10 fractions of radiation. Patient presented to the emergency room with chest pain. On presentation patient's heart rate was found to be in the 190s. Patient was started on heparin drip and given Cardizem. Currently on amiodarone with rate control, cardiology following. Serial troponins negative. Chest x-ray revealed persistent but improving infiltrate in the region of the superior segment of the left lower lobe. Prominence of the left hilum. Increased patchy density right suprahilar region. CBC showed WBC 8.3, hemoglobin 9.9, platelets 286,000. At today's visit patient is reporting right-sided headache that can be severe in nature. Internal medicine has ordered CT brain without contrast to further evaluate. Patient reports his breathing is at baseline. Denies hemoptysis. Review of Systems 10 point ROS is negative except as stated in the HPI Past Medical History Past Medical History: Coronary Artery Disease (CAD), Cancer, Chest Pain / Angina, COPD, Hyperlipidemia, Hypertension, Myocardial Infarction ([place]) Additional Past Medical History / Comment(s): SVT with chest pain/palpitations- chemically converted(2023), lung cancer with chemo and radiation Last Myocardial Infarction Date:: 2017 History of Any Multi-Drug Resistant Organisms: MRSA Year Discovered:: 12/23/2013 MDRO Source:: Face Past Surgical History: Heart Catheterization With Stent Additional Past Surgical History / Comment(s): I&D of Right inframandibular abscess. 3 cardiac stents, bronchoscopy for abscess Past Anesthesia/Blood Transfusion Reactions: No Reported Reaction Additional Past Anesthesia/Blood Transfusion Reaction / Comm: platelet transfusions with no reaction r/t chemo Date of Last Stent Placement:: 2017 Past Psychological History: No Psychological Hx Reported Additional Psychological History / Comment(s): Pt states he was released from halfway recently (driving on suspended license) and during his time in halfway he lost his job and insurance. He resides with his son. He uses no assistive devices. He no longer drives, his son takes him places. Smoking Status: Former smoker Past Alcohol Use History: None Reported Additional Past Alcohol Use History / Comment(s): Pt started smoking when he was 13 1ppd and recently quit. Drinks occasionally and eats marijuana gummies. Past Drug Use History: Marijuana Additional Drug Use History / Comment(s): Pt denies any drug use. [facility] documents marijuana. - Past Family History Father Family Medical History: No Reported History Additional Family Medical History / Comment(s): Father of "natural causes" at the age of 79yrs. Mother Family Medical History: COPD, Coronary Artery Disease (CAD) Additional Family Medical History / Comment(s): Mother is 76yrs old. She has had several MIs, 6 cardiac stents and a 4 vessel CABG. Medications and Allergies Home Medications Medication Instructions Recorded Confirmed Type Atorvastatin [Lipitor] 80 mg PO HS 03/04/21 08/28/23 History Dapagliflozin Propanediol [Farxiga] 10 mg PO DAILY #30 tab 09/01/22 08/28/23 Rx Spiriva Respimat 1.25mcg/Actuation 2 puff INHALATION RT-HS #0 09/01/22 08/28/23 Rx Mist Albuterol Inhaler [Ventolin Hfa 1 - 2 puff INHALATION RT-Q6H PRN 06/06/23 08/28/23 History Inhaler] Hydrocodone/Acetaminophen 1 tab PO QID PRN 06/06/23 08/28/23 History [Hydrocodone/Acetaminophen 10-300 mg] Metoprolol Tartrate [Lopressor] 25 mg PO BID 06/06/23 08/28/23 History Spironolactone [Aldactone] 50 mg PO DAILY 06/06/23 08/28/23 History lisinopriL [Zestril] 20 mg PO DAILY 08/28/23 08/28/23 History Allergies Allergy/AdvReac Type Severity Reaction Status Date / Time Penicillins Allergy Dyspnea & Verified 08/28/23 12:25 Hives all over Physical Exam Vitals: Vital Signs Temp Pulse Pulse Resp BP Pulse Ox 08/30/23 08:06 68 08/30/23 07:54 64 08/30/23 04:00 98.6 F 64 16 97/52 96 08/29/23 23:51 97.9 F 66 16 98/63 97 08/29/23 23:38 67 14 95/55 98 08/29/23 19:55 97.9 F 77 16 116/80 97 08/29/23 15:49 72 08/29/23 15:40 72 08/29/23 15:06 66 15 92/50 98 08/29/23 12:18 87 18 92/59 96 08/29/23 11:50 64 08/29/23 11:42 64 Intake and Output 08/29/23 08/30/23 08/30/23 22:59 06:59 14:59 Intake Total 423.543 118 Balance 423.543 118 Intake: Intake, IV Titration 187.543 Amount Heparin Sod,Pork in 0.45% 187.543 NaCl 25,000 unit In 0.45 % NaCl 1 250ml.bag @ 12 UNITS/KG/HR 8.437 mls/hr IV .Q24H [facility] Rx#: [id number] Oral 236 118 Other: Voiding Method Toilet Toilet Urinal Urinal Weight 68.4 kg - Constitutional General appearance: average body habitus, no acute distress - EENT Eyes: anicteric sclerae, EOMI ENT: hearing grossly normal - Respiratory breathing unlabored, mildly diminished LLL - Cardiovascular Rhythm: regular - Gastrointestinal General gastrointestinal: soft, no tenderness - Integumentary Integumentary: no cyanotic - Neurologic Neurologic: CNII-XII intact - Musculoskeletal Musculoskeletal: strength equal bilaterally Results CBC & Chem 7: 08/30/23 15:00 08/30/23 06:18 Labs: Abnormal Lab Results - Last 24 Hours (Table) 08/29/23 08/30/23 08/30/23 Range/Units 06:42 06:18 06:18 RBC 3.50 L (4.30-5.90) m/uL Hgb 9.9 L D (13.0-17.5) gm/dL Hct 32.5 L (39.0-53.0) % MCHC 30.5 L (31.0-37.0) g/dL RDW 19.0 H (11.5-15.5) % APTT (22.0-30.0) sec Sodium 133 L (137-145) mmol/L Total Protein 5.6 L (6.3-8.2) g/dL Albumin 2.6 L (3.5-5.0) g/dL HDL Cholesterol 27.00 L (40.00-60.00) mg/dL 08/30/23 Range/Units 06:18 RBC (4.30-5.90) m/uL Hgb (13.0-17.5) gm/dL Hct (39.0-53.0) % MCHC (31.0-37.0) g/dL RDW (11.5-15.5) % APTT 56.7 H (22.0-30.0) sec Sodium (137-145) mmol/L Total Protein (6.3-8.2) g/dL Albumin (3.5-5.0) g/dL HDL Cholesterol (40.00-60.00) mg/dL Chest x-ray: report reviewed CT Scan - head: report reviewed MRI - head: report reviewed Assessment and Plan (1) Atrial fibrillation with rapid ventricular response Current Visit: Yes Status: Acute Priority: High Code(s): I48.91 - UNSPECIFIED ATRIAL FIBRILLATION SNOMED Code(s): 488670445411406 (2) Squamous cell lung cancer Current Visit: No Status: Chronic Priority: High Code(s): C34.90 - MALIGNANT NEOPLASM OF UNSP PART OF UNSP BRONCHUS OR LUNG SNOMED Code(s): 886784553 Plan: A-fib RVR: Patient presented to the emergency room with chest pain. -On presentation patient's heart rate was found to be in the 190s and was in a- fib with RVR. He was started on heparin drip and given Cardizem. Currently on amiodarone with rate control -Serial troponins negative -Chest x-ray revealed persistent but improving infiltrate in the region of the superior segment of the left lower lobe. Prominence of the left hilum. Increased patchy density right suprahilar region. -Cardiology following -Spoke with admitting team today regarding case; will transition to [facility] Headache: -Has had 2 brain MRIs, in 02/05 and 08/07. Both scans were negative for acute processes and brain metastasis -Internal medicine has ordered CT brain without contrast to further evaluate. Scan was negative for acute intracranial process -Pt may benefit from outpt f/u with neurology if symptoms persist Sq cell lung cancer: Full oncological history in [facility] -He completed cycle 4 cycle of single agent Taxotere on 05/26/23. Imaging at that time did not report any areas of new/metastatic disease. Known areas of disease slightly larger-suspect because of infection. He was admitted to the hospital after cycle 4, and treatment has been held since due to persisting lung infection. Case was discussed with pulmonology who agreed to hold treatment to allow pt adequate to time to recover. At his last f/u on 07/27, pt was reporting persisting right sided headache, MRI brain was repeated on 08/01, which showed no evidence of mass, acute/subacute infarct, or abnormal enhancement. -Plan was for pt to begin palliative RT once cleared by pulmonology and restart single agent Taxotere s/p RT. He has completed 2 of 10 fractions of radiation -Clinic f/u scheduled with Dr. Hoyos on 09/[address] Pickett, will continue with outpt RT tomorrow. Pt is cleared for discharge from oncology standpoint once cleared by IM and other consulted medical specialities
[2023-08-31 03:26] VITALS: RESP 18
[2023-08-31 09:07] LABS: Anisocytosis Slight; HCT 37.1 % (39.0-53.0); HGB 10.9 gm/dL (13.0-17.5); Hypochromasia Marked; MCHC 29.3 g/dL (31.0-37.0); Mean Platelet Volume 9.4; Platelet Count 325 k/uL (150-450); RBC 4.03 m/uL (4.30-5.90); WBC 9.7 k/uL (3.8-10.6)
[2023-08-31] MEDS: diphenhydrAMINE 50 MG/ML 1 ML VIAL IVP STA (09:11)
[2023-08-31] MEDS: PROCHLORPERAZINE INJ 10 MG/2 ML VIAL IVP STA (09:11)
[2023-08-31 09:27] LABS: ALT 12 U/L (4-49); AST 20 U/L (17-59); African American GFR (CKD) >90 (>60 ml/min/1.73 sqM); Albumin 2.9 g/dL (3.5-5.0); Alkaline Phosphatase 58 U/L (38-126); Anion Gap 7 mmol/L; Blood Urea Nitrogen 16 mg/dL (9-20); Calcium 10.2 mg/dL (8.4-10.2); Carbon Dioxide 22 mmol/L (22-30); Chloride 101 mmol/L (98-107); Glucose 142 mg/dL (74-99); Magnesium 1.5 mg/dL (1.6-2.3); Non-African American GFR(CKD) >90 (>60 ml/min/1.73 sqM); Potassium 4.5 mmol/L (3.5-5.1); Sodium 130 mmol/L (137-145); Total Bilirubin 0.3 mg/dL (0.2-1.3); Total Protein 6.1 g/dL (6.3-8.2)
[2023-08-31] MEDS ORDERED: MAGNESIUM SULFATE-D5W PMX 1 GM in DEXTROSE/WATER 1 100ML.BAG IVPB ONE (09:29)
[2023-08-31] MEDS ORDERED: MAGNESIUM OXIDE 400 MG TAB PO STA (09:29)
--- NOTE | 2023-08-31 09:48 | P.DS ---
Providers Date of admission: 08/28/23 13:57 Expected date of discharge: 08/31/23 Attending physician: Jerome Sow MD Consults: 08/28/23 13:53 Consult Physician Urgent Consulting Provider: [facility] Consult Reason/Comments: A-fib with rapid ventricular response, SVT Do you want consulting provider notified?: Yes 08/29/23 12:06 Consult Physician Routine Consulting Provider: Juan Carlos Hoyos Consult Reason/Comments: lung cancer, a-fib RVR/SVT Do you want consulting provider notified?: Yes Primary care physician: Eduardo Parsons MD Hospital Course: Discharge Diagnosis: SVT, resolved/ablated after administration of adenosine Paroxysmal A-fib with RVR, currently maintaining sinus rhythm. Discharged on Eliquis 5 mg twice daily, amiodarone taper and metoprolol 25 mg twice daily. Ischemic cardiomyopathy with ejection fraction 35 to 40%. Continue medication regimen with metoprolol 25 mg twice daily, lisinopril 20 mg daily, Farxiga 10 mg daily, pravastatin 80 mg nightly, and Aldactone 50 mg daily. Acute anemia, suspect dilution. Hemoglobin stable on day of discharge at 10.9. Patient discharged home on anticoagulation with Eliquis as well as Protonix 40 mg daily. Patient sent with prescription for repeat CBC in 1 week with results to be sent to PCP, rock loader/oncologist, and good humor vendor for follow-up and management. Intractable headache/migraine. Improved with migraine cocktail, CT brain was negative for acute process. Hypertension. Continue metoprolol 25 mg twice daily and lisinopril 20 mg daily. Dyslipidemia. Continue atorvastatin 80 mg nightly. COPD without exacerbation Squamous cell carcinoma of the lung Hypercalcemia, likely related to underlying malignancy. Resolved after IV fluid hydration. Hospital course: Patient is a very pleasant 62-year-old male with known history of SVT, lung cancer currently receiving radiation, HTN, HLD, COPD, coronary artery disease with prior myocardial infarction who presented to the emergency department with chest pain. On arrival to the ER he was tachycardic with a pulse of 197. Init ial labs included CBC, coags, CMP, troponin, and TSH which were remarkable with the exception of calcium of 11.5 and sodium of 133. Initial EKG in the emergency department showed SVT at 204 bpm. Patient was given adenosine and heart rate slowed. On 1 EKG after this he was also noted to have atrial fibrillation. Subsequent EKGs revealed normal sinus rhythm. In the ER he did receive adenosine 6 and then 12 as well as a Cardizem drip and heparin drip. Cardiology was consulted and patient was admitted under our services. Patient continued to have recurrent episodes of SVT and A-fib RVR. Cardizem discontinued and patient started on amiodarone. Patient successfully maintaining sinus mechanism at this time. Echocardiogram was completed showing a preserved EF of 55 to 60% with trace mitral and tricuspid regurgitation. Patient's hemoglobin and heart rate stable. He was cleared from cardiology and hematology/oncology for discharge. Patient discharged home on Eliquis 5 mg twice daily and amiodarone taper along with Protonix 40 mg daily. Patient to resume scheduled chemotherapy treatment status post discharge and follow-up outpatient with PCP in 1 to 2 days, good humor vendor in 1 week, and rock loader/oncologist as scheduled. Physical exam: Vital signs reviewed and stable. General: Nontoxic, no distress and appears stated age. Derm: Skin warm and dry, normal coloration for ethnicity. Head: Atraumatic, normocephalic and symmetric. Eyes: EOMs intact, no lid lag, and anicteric sclera Mouth: no lip lesions, mucus membranes moist Cardiovascular: regular rate and rhythm with normal S1S2, no murmur, positive posterior tibial pulses bilaterally, and cap refill < 2 seconds. Lungs: Respirations even, regular, and unlabored on room air. Lungs CTA bilaterally, no rhonchi, no rales, no wheezing, and no accessory muscle usage. Abdominal: soft, nontender to palpation, no guarding, no appreciable organomegaly Ext: ROM intact. No gross muscle atrophy, no edema, no contractures Neuro: Speech clear, face symmetrical and CN II-XII grossly intact with no noted focal neuro deficits Psych: Alert and oriented to person, place, time, and situation. Appropriate and pleasant affect. A total of 35 minutes of time were spent preparing this complex discharge summary. Pt was discharged on 08/31/2023 at 9:42 AM. Patient was seen independently by Nurse Practitioner. This document was prepared using [employer] dictation software. Please allow for errors in hydrodynamics teacher while rare they do occur. Tony Vazquez NP rendered care for this patient independently, reviewed the findings and plan as documented in the note above. I did not physically speak with or examine the patient on this date. Patient Condition at Discharge: Stable Plan - Discharge Summary New Discharge Prescriptions: New Apixaban [Eliquis] 5 mg PO BID 30 Days #60 tab Pantoprazole [Protonix] 40 mg PO DAILY 30 Days #30 tab Magnesium Oxide [Mag-Ox] 400 mg PO DAILY 30 Days #30 tab Amiodarone [Cordarone] See Taper PO BID 30 Days #58 tab Continue Dapagliflozin Propanediol [Farxiga] 10 mg PO DAILY #30 tab Spiriva Respimat 1.25mcg/Actuation Mist 2 puff INHALATION RT-HS #0 Spironolactone [Aldactone] 50 mg PO DAILY Albuterol Inhaler [Ventolin Hfa Inhaler] 1 - 2 puff INHALATION RT-Q6H PRN PRN Reason: Shortness Of Breath lisinopriL [Zestril] 20 mg PO DAILY Atorvastatin [Lipitor] 80 mg PO HS Hydrocodone/Acetaminophen [Hydrocodone/Acetaminophen 10-300 mg] 1 tab PO QID PRN PRN Reason: PAIN Metoprolol Tartrate [Lopressor] 25 mg PO BID Discharge Medication List Atorvastatin [Lipitor] 80 mg PO HS 03/04/21 [History] Dapagliflozin Propanediol [Farxiga] 10 mg PO DAILY #30 tab 09/01/22 [Rx] Spiriva Respimat 1.25mcg/Actuation Mist 2 puff INHALATION RT-HS #0 09/01/22 [Rx] Albuterol Inhaler [Ventolin Hfa Inhaler] 1 - 2 puff INHALATION RT-Q6H PRN 06/06/23 [History] Hydrocodone/Acetaminophen [Hydrocodone/Acetaminophen 10-300 mg] 1 tab PO QID PRN 06/06/23 [History] Metoprolol Tartrate [Lopressor] 25 mg PO BID 06/06/23 [History] Spironolactone [Aldactone] 50 mg PO DAILY 06/06/23 [History] lisinopriL [Zestril] 20 mg PO DAILY 08/28/23 [History] Amiodarone [Cordarone] See Taper PO BID 30 Days #58 tab 08/31/23 [Rx] Apixaban [Eliquis] 5 mg PO BID 30 Days #60 tab 08/31/23 [Rx] Magnesium Oxide [Mag-Ox] 400 mg PO DAILY 30 Days #30 tab 08/31/23 [Rx] Pantoprazole [Protonix] 40 mg PO DAILY 30 Days #30 tab 08/31/23 [Rx] Follow up Appointment(s)/Referral(s): Tay Beaulieu MD [STAFF PHYSICIAN] - 1 Week (patient will call to set up follow- up appointments around his radiation.) Juan Carlos Hoyos [STAFF PHYSICIAN] - 1 Week (patient will call to set up follow-up appointments around his radiation.) Eduardo Parsons MD [Primary Care Provider] - 1-2 days (patient will call to set up follow-up appointments around his radiation. ) Ambulatory/Diagnostic Orders: Complete Blood Count w/diff [LAB.AMB] Time Frame: 1 Week, Location: None Selected Activity/Diet/Wound Care/Special Instructions: Activity: As tolerated. Take breaks as needed. Diet: Heart healthy and carb consistent diet. Avoid salts, or foods with hidden salts such as canned or boxed foods and frozen dinners. Extra salt makes your heart work harder and traps the fluid in your body for longer. Special Instructions: Take all of your medications as directed and remember to keep all of your doctor's appointments and follow-up as needed. Thank you for allowing us to participate in your care, it was truly a pleasure having you for our patient!!! . Discharge Disposition: HOME SELF-CARE
[2023-08-31 10:55] VITALS: BP 97/62; PULSE 72; TEMP 98.1
[2023-08-31] MEDS: MAGNESIUM OXIDE 400 MG TAB PO STA (11:48)
== END 2023-08-31 12:34 | disposition home or self-care (01) | DRG 201 ==
LOC: EC 11:13 → OBSVTOIN 13:57 → INTOOBSV 13:57 → 3SCARD 13:57
PROVIDERS: ADMIT Family Medicine; ATTEND Family Medicine
PROC: 3E043GC Introduction of Other Therapeutic Substance into Central Vein, Percutaneous Approach (ICD-10-PCS; principal; 2023-08-28)
DX: I47.10 Supraventricular tachycardia, unspecified (principal); C34.91 Malignant neoplasm of unspecified part of right bronchus or lung; J44.9 Chronic obstructive pulmonary disease, unspecified; I48.0 Paroxysmal atrial fibrillation; E87.1 Hypo-osmolality and hyponatremia; I10 Essential (primary) hypertension; I08.1 Rheumatic disorders of both mitral and tricuspid valves; D64.89 Other specified anemias; E78.5 Hyperlipidemia, unspecified; G43.909 Migraine, unspecified, not intractable, without status migrainosus; E83.52 Hypercalcemia; I25.5 Ischemic cardiomyopathy; I25.10 Atherosclerotic heart disease of native coronary artery without angina pectoris; Z79.51 Long term (current) use of inhaled steroids; Z79.84 Long term (current) use of oral hypoglycemic drugs; I25.2 Old myocardial infarction; Z95.5 Presence of coronary angioplasty implant and graft; Z87.891 Personal history of nicotine dependence; Z56.89 Other problems related to employment; Z65.2 Problems related to release from prison; Z86.14 Personal history of Methicillin resistant Staphylococcus aureus infection; Z79.899 Other long term (current) drug therapy; Z88.0 Allergy status to penicillin
CPT/HCPCS: 36415; 70450; 71046; 77387; 77412; 80048; 80053; 80061; 82330; 83735; 84443; 84484; 85025; 85027; 85610; 85730; 93005; 93306; 94640; 94664; 94760; 96365; 96366; 96375; 99291

== ENCOUNTER 2023-09-06 08:41 | Inpatient (IN) | payer OTHER ==
[2023-09-06] MEDS: NOREPINEPHRINE 4 MG in SODIUM CHLORIDE 0.9% 250 ML IV ONE (09:02)
[2023-09-06] MEDS: SODIUM CHLORIDE 0.9% 1,000 ML IV STA (09:02)
--- NOTE | 2023-09-06 09:11 | ED ---
General Adult HPI - General Chief complaint: Chest Pain Stated complaint: chest pain Time Seen by Provider: 09/06/23 08:46 Source: patient, EMS Mode of arrival: EMS - History of Present Illness Initial comments: Dictation was produced using [employer] dictation software. please excuse any grammatical, word or spelling errors. Chief Complaint: 62-year-old male presents to the emergency department for chest and abdominal pain History of Present Illness: Patient 62-year-old male presents to the emergency department for chest and abdominal pain. Has been having symptoms for the last couple days. States that he went to the bathroom today to try to use the toilet when all of a sudden his pain increased exponentially. Patient states that his got significant heaviness to his chest worse when he takes a deep breath. He also has abdominal pain to the epigastrium. States that all of his extremities feel numb. Patient has significant cardiac history. Patient is a poor hist orian secondary to distress. Unable to obtain ROS secondary to distress - Related Data Home Medications Medication Instructions Recorded Confirmed Atorvastatin [Lipitor] 80 mg PO HS 03/04/21 09/06/23 Albuterol Inhaler [Ventolin Hfa 1 - 2 puff INHALATION RT-Q6H PRN 06/06/23 09/06/23 Inhaler] Hydrocodone/Acetaminophen 1 tab PO QID PRN 06/06/23 09/06/23 [Hydrocodone/Acetaminophen 10-300 mg] Metoprolol Tartrate [Lopressor] 25 mg PO BID 06/06/23 09/06/23 Spironolactone [Aldactone] 50 mg PO DAILY 06/06/23 09/06/23 lisinopriL [Zestril] 20 mg PO DAILY 08/28/23 09/06/23 Previous Rx's Medication Instructions Recorded Dapagliflozin Propanediol [Farxiga] 10 mg PO DAILY #30 tab 09/01/22 Spiriva Respimat 1.25mcg/Actuation 2 puff INHALATION RT-HS #0 09/01/22 Mist Amiodarone [Cordarone] See Taper PO BID 30 Days #58 tab 08/31/23 Apixaban [Eliquis] 5 mg PO BID 30 Days #60 tab 08/31/23 Magnesium Oxide [Mag-Ox] 400 mg PO DAILY 30 Days #30 tab 07/17/24 Pantoprazole [Protonix] 40 mg PO DAILY 30 Days #30 tab 08/31/23 Allergies Allergy/AdvReac Type Severity Reaction Status Date / Time Penicillins Allergy Dyspnea & Verified 09/06/23 08:54 Hives all over Review of Systems ROS Statement: Those systems with pertinent positive or pertinent negative responses have been documented in the HPI. ROS Other: All systems not noted in ROS Statement are negative. Past Medical History Past Medical History: Coronary Artery Disease (CAD), Cancer, Chest Pain / Angina, COPD, Hyperlipidemia, Hypertension, Myocardial Infarction ([place]) Additional Past Medical History / Comment(s): SVT with chest pain/palpitations-chemically converted(2023), lung cancer with chemo and radiation Last Myocardial Infarction Date:: 2017 History of Any Multi-Drug Resistant Organisms: MRSA Date of last positivie culture/infection: 12/23/2013 MDRO Source:: Face Past Surgical History: Heart Catheterization With Stent Additional Past Surgical History / Comment(s): I&D of Right inframandibular abscess. 3 cardiac stents, bronchoscopy for abscess Past Anesthesia/Blood Transfusion Reactions: No Reported Reaction Additional Past Anesthesia/Blood Transfusion Reaction / Comment(s): platelet transfusions with no reaction r/t chemo Date of Last Stent Placement:: 2017 Past Psychological History: No Psychological Hx Reported Smoking Status: Former smoker Past Alcohol Use History: None Reported Past Drug Use History: Marijuana - Past Family History Father Family Medical History: No Reported History Additional Family Medical History / Comment(s): Father of "natural causes" at the age of 79yrs. Mother Family Medical History: COPD, Coronary Artery Disease (CAD) Additional Family Medical History / Comment(s): Mother is 76yrs old. She has had several MIs, 6 cardiac stents and a 4 vessel CABG. General Exam - General Exam Comments Initial Comments: PHYSICAL EXAM: General Impression: Alert and oriented x3, distress secondary to pain HEENT: Normocephalic atraumatic, extra-ocular movements intact, pupils equal and reactive to light bilaterally, mucous membranes moist. Cardiovascular: Heart regular rate and rhythm Chest: Diffuse Rales Abdomen: abdomen soft, palpatory tenderness to the epigastrium Musculoskeletal: Weak pulses diffusely Motor: no focal deficits noted Neurological: CN II-XII grossly intact, no focal motor or sensory deficits noted Skin: Intact with no visualized rashes Course Vital Signs 09/06/23 09/06/2324 08:42 09:25 10:16 Temperature 99.2 F Pulse Rate 133 H 120 H 117 H Respiratory 16 18 18 Rate Blood Pressure 67/47 78/48 61/33 - Reevaluation(s) Reevaluation #1: 09/06/23 09:10 Case was discussed with cardiology. Dr. Dunbar did review the EKG and came down to the bedside to evaluate the patient. He did agree that EKG was suspicious for acute ischemia. However his symptoms are slightly atypical. No plans to go immediately to the [facility]. He will wait for the results of further imaging and diagnostic studies before committing to [facility] activation. EKG Findings - EKG Comments: EKG Findings:: My EKG interpretation: Ventricular rate 134, sinus tachycardia,. 150, QRS 92, QTc 359. Significant ST elevations in lead V1 through V6. No obvious reciprocal changes. High lateral ST elevations as well.. EKG concerning for acute ischemia. Procedures - Central Line Placement Right Femoral Consent Obtained: verbal consent, emergent situation Patient Placed on Monitor/Pulse Ox: Yes MD Prep: mask, gown, gloves Central Line Prep: Chlorhexidine scrub Local Anesthesia Used: Lidocaine 2% Ultrasound Used for Placement: Yes Central Line Lumen Inserted: triple Bloods Obtained for Lab: Yes Central Line Position: good blood return, all ports aspirated, flushed, capped, sutured in place with 3-0 nylon Dressing Applied: Tegaderm Post Procedure X-Ray: tip of catheter in good position Patient Tolerated Procedure: well Complications: none Medical Decision Making - Medical Decision Making Was pt. sent in by a medical professional or institution (, PA, CAR INSTALLATIONS SUPERVISOR, urgent care, hospital, or correction...) When possible be specific @ -No Did you speak to anyone other than the patient for history (EMS, parent, family, police, friend...)? What history was obtained from this source @ -Per EMS as described above Did you review nursing and triage notes (agree or disagree)? Why? @ -I reviewed and agree with nursing and triage notes Were old charts reviewed (outside hosp., previous admission, EMS record, old EKG, old radiological studies, urgent care reports/EKG's, correction records)? Report findings @ -No old charts were reviewed Differential Diagnosis (chest pain, altered mental status, abdominal pain women, abdominal pain men, vaginal bleeding, musculoskeletal, weakness, fever, dyspnea, syncope, headache, dizziness, GI bleed, back pain, seizure, CVA, palpatations, mental health)? @ -Differential Chest Pain: Stable Angina, Unstable Angina, STEMI, NSTEMI Aortic Dissection, Pneumothorax, Musculoskeletal, Esophageal Spasm GERD, Cholecystitis, Pancreatitis, Zoster, this is not meant to be an all-inclusive list. EKG interpreted by me (3pts min.). @ -See above X-rays interpreted by me (1pt min.). @ -Chest x-ray shows lung consolidation CT interpreted by me (1pt min.). @ -CT angiography of the thoracic and abdominal aorta shows no acute processes U/S interpreted by me (1pt. min.). @ -None done What testing was considered but not performed or refused? (CT, X-rays, U/S, labs)? Why? @ -None What meds were considered but not given or refused? Why? @ -None Was smoking cessation discussed for >3mins.? @ -No Were there social determinants of health that impacted care today? How? (Homelessness, low income, unemployed, alcoholism, drug addiction, transportation, low edu. Level, literacy, decrease access to med. care, long-term, rehab)? @ -No Was there de-escalation of care discussed even if they declined (Discuss DNR or withdrawal of care, Hospice)? DNR status @ -No What co-morbidities impacted this encounter? (DM, HTN, Smoking, COPD, CAD, Cancer, CVA, ARF, Chemo, Hep., AIDS, mental health diagnosis, sleep apnea, morbid obesity)? @ -Lung cancer Was patient admitted / discharged? Hospital course, mention meds given and route, prescriptions, significant lab abnormalities, going to OR and other pertinent info. @ -62-year-old male presents to the emergency department for chest and abdominal pain. EKG is concerning for ischemia. Cardiology evaluated the patient immediately. No plans for immediate cardiac catheterization at this time. Vital signs upon arrival shows blood pressure of 67/47. Patient started on IV pressors. Laboratory evaluation shows leukocytosis 17.6. Coag panel is normal. Metabolic panel shows mild gap acidosis with sodium 128. Troponins negative. Patient given 30 cc/kg bolus based on ideal body weight. He given antibiotics for suspicion of sepsis. Case discussed with lead clinical research coordinator for ICU admission. Did you discuss the management of the patient with other professionals (professionals i.e. , PA, CAR INSTALLATIONS SUPERVISOR, lab, RT, psych nurse, public health social worker, transcription coordinator, teacher, financial aids officer, family service caseworker)? Give summary @ -See above Was critical care preformed (if so, how long)? @ -Yes, 77 minutes Undiagnosed new problem with uncertain prognosis? @ -No Drug Therapy requiring intensive monitoring for toxicity (Heparin, Nitro, Insulin, Cardizem)? @ -No Were any procedures done? @ -No Diagnosis/symptom? Acute, or Chronic, or Acute on Chronic? Uncomplicated (without systemic symptoms) or Complicated (systemic symptoms)? @ -Hypotensive shock Side effects of treatment? @ -No Exacerbation, Progression, or Severe Exacerbation? @ -No Poses a threat to life or bodily function? How? (Chest pain, [place], [place], pneumonia, PE, COPD, DKA, ARF, appy, cholecystitis, CVA, Diverticulitis, Homicidal, Suicidal, threat to staff... and all critical care pts) @ -yes - Lab Data Result diagrams: 09/06/23 08:47 09/06/23 08:47 Lab Results 09/06/23 09/06/23 09/06/23 Range/Units 08:47 08:47 08:47 WBC 17.6 H (3.8-10.6) k/uL RBC 4.62 (4.30-5.90) m/uL Hgb 12.7 L (13.0-17.5) gm/dL Hct 41.6 (39.0-53.0) % MCV 90.0 (80.0-100.0) fL MCH 27.6 (25.0-35.0) pg MCHC 30.6 L (31.0-37.0) g/dL RDW 18.9 H (11.5-15.5) % Plt Count 446 (150-450) k/uL MPV 8.6 Neutrophils % 85 % Lymphocytes % 11 % Monocytes % 2 % Eosinophils % 0 % Basophils % 0 % Neutrophils # 15.0 H (1.3-7.7) k/uL Lymphocytes # 2.0 (1.0-4.8) k/uL Monocytes # 0.4 (0-1.0) k/uL Eosinophils # 0.1 (0-0.7) k/uL Basophils # 0.0 (0-0.2) k/uL Hypochromasia Moderate Anisocytosis Slight PT 10.9 (10.0-12.5) sec INR 1.0 (<1.2) APTT 24.6 (22.0-30.0) sec Sodium 128 L (137-145) mmol/L Potassium 5.0 (3.5-5.1) mmol/L Chloride 97 L (98-107) mmol/L Carbon Dioxide 14 L (22-30) mmol/L Anion Gap 17 mmol/L BUN 36 H (9-20) mg/dL Creatinine 1.34 H (0.66-1.25) mg/dL Est GFR (CKD-EPI)AfAm 66 (>60 ml/min/1.73 sqM) Est GFR (CKD-EPI)NonAf 57 (>60 ml/min/1.73 sqM) Glucose 165 H (74-99) mg/dL Calcium 10.6 H (8.4-10.2) mg/dL Magnesium 1.9 (1.6-2.3) mg/dL Total Bilirubin 0.4 (0.2-1.3) mg/dL AST 23 (17-59) U/L ALT 16 (4-49) U/L Alkaline Phosphatase 152 H (38-126) U/L Troponin I (0.000-0.034) ng/mL Total Protein 7.2 (6.3-8.2) g/dL Albumin 3.5 (3.5-5.0) g/dL Lipase (23-300) U/L 09/06/23 09/06/23 Range/Units 08:47 08:47 WBC (3.8-10.6) k/uL RBC (4.30-5.90) m/uL Hgb (13.0-17.5) gm/dL Hct (39.0-53.0) % MCV (80.0-100.0) fL MCH (25.0-35.0) pg MCHC (31.0-37.0) g/dL RDW (11.5-15.5) % Plt Count (150-450) k/uL MPV Neutrophils % % Lymphocytes % % Monocytes % % Eosinophils % % Basophils % % Neutrophils # (1.3-7.7) k/uL Lymphocytes # (1.0-4.8) k/uL Monocytes # (0-1.0) k/uL Eosinophils # (0-0.7) k/uL Basophils # (0-0.2) k/uL Hypochromasia Anisocytosis PT (10.0-12.5) sec INR (<1.2) APTT (22.0-30.0) sec Sodium (137-145) mmol/L Potassium (3.5-5.1) mmol/L Chloride (98-107) mmol/L Carbon Dioxide (22-30) mmol/L Anion Gap mmol/L BUN (9-20) mg/dL Creatinine (0.66-1.25) mg/dL Est GFR (CKD-EPI)AfAm (>60 ml/min/1.73 sqM) Est GFR (CKD-EPI)NonAf (>60 ml/min/1.73 sqM) Glucose (74-99) mg/dL Calcium (8.4-10.2) mg/dL Magnesium (1.6-2.3) mg/dL Total Bilirubin (0.2-1.3) mg/dL AST (17-59) U/L ALT (4-49) U/L Alkaline Phosphatase (38-126) U/L Troponin I <0.012 (0.000-0.034) ng/mL Total Protein (6.3-8.2) g/dL Albumin (3.5-5.0) g/dL Lipase 111 (23-300) U/L Disposition Clinical Impression: Hypotension Disposition: ADMITTED IP TO THIS HOSP Condition: Critical Referrals: Eduardo Parsons MD [Primary Care Provider] - 1-2 days Decision Time: 10:37
[2023-09-06 09:14] LABS: Anisocytosis Slight; Basophils % (A) 0 %; Eosinophils # (A) 0.1 k/uL (0-0.7); Eosinophils % (A) 0 %; HCT 41.6 % (39.0-53.0); HGB 12.7 gm/dL (13.0-17.5); Hypochromasia Moderate; Lymphocytes % (A) 11 %; MCH 27.6 pg (25.0-35.0); MCHC 30.6 g/dL (31.0-37.0); Mean Platelet Volume 8.6; Monocytes # (A) 0.4 k/uL (0-1.0); Monocytes % (A) 2 %; Neutrophils % (A) 85 %; Platelet Count 446 k/uL (150-450); RBC 4.62 m/uL (4.30-5.90); RDW 18.9 % (11.5-15.5); WBC 17.6 k/uL (3.8-10.6)
[2023-09-06 09:16] LABS: Partial Thromboplastin Time 24.6 sec (22.0-30.0); Prothrombin Time 10.9 sec (10.0-12.5)
[2023-09-06 09:27] LABS: ALT 16 U/L (4-49); AST 23 U/L (17-59); African American GFR (CKD) 66 (>60 ml/min/1.73 sqM); Albumin 3.5 g/dL (3.5-5.0); Alkaline Phosphatase 152 U/L (38-126); Anion Gap 17 mmol/L; Blood Urea Nitrogen 36 mg/dL (9-20); Calcium 10.6 mg/dL (8.4-10.2); Carbon Dioxide 14 mmol/L (22-30); Chloride 97 mmol/L (98-107); Glucose 165 mg/dL (74-99); Magnesium 1.9 mg/dL (1.6-2.3); Non-African American GFR(CKD) 57 (>60 ml/min/1.73 sqM); Sodium 128 mmol/L (137-145); Total Bilirubin 0.4 mg/dL (0.2-1.3); Total Protein 7.2 g/dL (6.3-8.2)
[2023-09-06] MEDS: MORPHINE SULFATE 4 MG/ML SYRINGE IV STA (09:27)
[2023-09-06] MEDS: ASPIRIN 300 MG SUPP RECTAL STA (09:33)
--- NOTE | 2023-09-06 09:40 | CT ---
EXAMINATION TYPE: CT angio thor/abd pel aorta DATE OF EXAM: 09/06/2023 COMPARISON: 06/01/2023 HISTORY: chest pain, possible dissection CT DLP: 1201 mGycm CONTRAST: CTA thoracic and abdominal aorta with 3-D reconstruction is performed and without and with IV Contras t, patient injected with 100 mL of Isovue 300. Contrast CTA of the thoracic and abdominal aorta was performed from the lung apex through the base of the pelvis. 3-D reconstruction imaging obtained at a separate workstation. CT Chest: THORACIC AORTA: There is no evidence for aneurysm. No dissection or mediastinal hematoma. Mild ath eromatous changes are seen. LUNGS: Cavitary nodule right upper lobe medially is again noted and currently measures 3.1 x 2.8 cm v ersus 2.5 x 2.5 cm previously. Progressive left lower lobe consolidation with less cavitation noted a t this time. MEDIASTINUM/HILUM: Subcarinal adenopathy redemonstrated 4.3 x 4.0 cm with prior measurement of 2.5 cm . Suspect tracheobronchial adenopathy on the right measuring 2.2 cm. Suspect left hilar adenopathy or mass difficult to measure. Consider PET/CT. OTHER: No significant abnormality. CONTRAST CT ABDOMEN AND PELVIS ABDOMINAL AORTA: No evidence for abdominal aortic aneurysm. No dissection. Iliac vessels are symmet jackelin and patent. LIVER/GB- No significant abnormality is seen. PANCREAS- No significant abnormality is seen. SPLEEN- No significant abnormality is seen. ADRENALS- No significant abnormality is seen. KIDNEYS/BLADDER- No significant abnormality is seen. BOWEL- No Significant abnormality GENITAL ORGANS: No gross abnormality seen. LYMPH NODES- No greater than 1cm abdominal or pelvic lymph nodes areappreciated. OSSEOUS STRUCTURES- No significant abnormality is seen. OTHER- No significant abnormality is seen. IMPRESSION- 1. No evidence for thoracic or abdominal aortic aneurysm or dissection. 2. Enlarging cavitary mass right upper lobe medially. Progressive consolidation left lower lobe with less cavitation seen at this time. As noted there is progressive adenopathy. Left hilar mass is diffi cult to exclude. Consider PET/CT.
--- NOTE | 2023-09-06 09:41 | XR ---
EXAMINATION TYPE: XR chest 2V DATE OF EXAM: 09/06/2023 COMPARISON: 08/28/2023 HISTORY: Shortness of breath TECHNIQUE: Frontal and lateral views of the chest are obtained. FINDINGS: Scattered senescent parenchymal changes noted. Hyperinflation compatible with COPD. Consolidative process left lower lobe is again noted. Additional irregular density right suprahilar r egion seen on CT to reflect cavitary mass. Neoplasm not excluded. Correlate for pneumonia as well. Heart size is stable. Mediastinal structures are stable and grossly unremarkable. No evidence for hilar prominence. Degenerative changes dorsal spine. IMPRESSION: 1. Consolidative process left lower lobe is again noted. Additional irregular density right suprahila r region seen on CT to reflect cavitary mass. Neoplasm not excluded. Correlate for pneumonia as well.
[2023-09-06] MEDS: LEVOFLOXACIN 750MG-D5W PMX 750 MG in DEXTROSE/WATER 1 150ML.BAG IVPB STA (09:51)
[2023-09-06] MEDS: HYDROmorphone 0.5 MG/0.5 ML SYRINGE IVP STA (10:00)
[2023-09-06] MEDS ORDERED: NOREPINEPHRINE 32 MG in SODIUM CHLORIDE 0.9% 218 ML IV ONE (10:00)
[2023-09-06] MEDS: NOREPINEPHRINE 32 MG in SODIUM CHLORIDE 0.9% 218 ML IV ONE (10:03)
[2023-09-06] MEDS: SODIUM CHLORIDE 0.9% 1,000 ML IV ONE ×2 (10:03→16:07)
[2023-09-06] MEDS: SODIUM CHLORIDE 0.9% 500 ML 600 ML IV STA (10:08)
[2023-09-06] MEDS ORDERED: NALOXONE 0.4 MG/ML 1 ML VIAL IV PRN (10:10)
[2023-09-06] MEDS: SODIUM CHLORIDE 0.9% 1,000 ML IV SCH (11:31)
[2023-09-06 11:50] LABS: Glucose,Whole Blood 143 mg/dL (70-110)
--- NOTE | 2023-09-06 12:51 | P.HPIM ---
History of Present Illness H&P Date: 09/06/23 62 year old M with PMH of lung CA with history of lung abscess, COPD with intermittent home O2, CAD with stents, h/o SVT, HTN, HLD, CHF with previous EF 35-40% presents to the ED for multiple complaints. He reports waking up this morning with a coughing fit. He reports chest pain, stabbing in nature, mid- sternal, worse with deep inspiration that started with the coughing fit. Chest pain is associated with palpitations. When he went to the washroom his legs gave out. He reports feeling nauseated with chronic epigastric pain since initiating chemotherapy. He reports not eating or drinking much for the past week. He complaints of a lump in his throat. He also reports positional lightheadedness. He feels short of breath with ambulation since starting chemotherapy and radiation. His last radiation treatment was yesterday with Dr. Shearer. Chemotherapy has been put on hold for the past few months by Dr. Hoyos while he recovered from his known lung abscess. He denies any headache, lower extremity edema, fever or chills, changes in urination or bowel habits. In the ED he underwent extensive evaluation. BP 67/47 HR 133, T 99.2F, with periods of desaturation into the 80s while on 2L NC. CBC, Coag panel, CMP significant for WBC 17.6, Hg 12.7, Na 128, Cl 97, bicarb 14, BUN 36, Cr 1.34, glu 165, Ca 10.6, alk phos 152. Lactic acid 2.7. Troponin < 0.012. Lipase 111. EKG sinus tachycardia with PVCs. CT thorax enlarging cavitary mass right upper lobe medially, progressive left lower lobe with less cavitation and progressive adenopathy. He was given a dose of Levaquin and NS bolus and admitted to ICU for need for pressors. General: Non toxic, moderate distress, cachectic Derm: Warm, dry Head: Atraumatic, normocephalic, symmetric Eyes: EOMI, no lid lag, anicteric sclera Mouth: No lip lesion, mucus membranes moist Cardiovascular: S1S2 tachy, no murmur, positive posterior tibial pulse bila teral, Lungs: Decreased BS bilateral, no rhonchi, no rales, no accessory muscle use Abdominal: Soft, TTP in all 4 quadrants worse in the epigastric region without rebound, no guarding, no appreciable organomegaly Ext: No gross muscle atrophy, no edema, no contractures Neuro: no focal neuro deficits Psych: Alert, oriented, appropriate affect Based on my assessment of this patient, this patient meets a high complexity level of care. Septic shock likely due to lung abscess: Hypotension. Tachycardic. Leukocytosis. Status post 3.5L NS bolus. Start NS at 130 cc/hr. CT with findings of lung abscess. Start Levaquin 750 mg IV QD. Obtain sputum Cx, BCx, UA with reflex to UCx, Legionella Ag. Obtain Echo. Telemetry monitoring. Tylenol 650 mg PO Q6H PRN for fever. Consult ID. Acute hypoxic respiratory failure likely due to above Anion gap metabolic acidosis: Obtain VBG. Obtain UA and acetone level to evaluate for euglycemic DKA. Lactic acidosis: IV hydration as above. Hyponatremia: IV hydration as above. Acute kidney injury due to severe dehydration: IV hydration as above. Epigastric pain: With nausea and vomiting. Possible gastritis. Protonix 40 mg IV QD. Obtain CT AP. Chest pain: Pleuritic. Likely related to lung abscess. Initial troponin negative. Trend Troponin to rule out ACS. Cardiology consulted. CODE STATUS: FULL CODE DVT Prophylaxis: Lovenox SQ GI Prophylaxis: Protonix IV Designated medical POA if patient is not able to make medical decisions for themselves: I have reviewed the following x ray consultant notes: ED note. I have reviewed the results of the following tests: As above. I have ordered the following tests: As above. I have discussed the care of this patient with the following independent historian: I have independently interpreted the following test below: I have discussed the management of this patient with the following physician: Dr. Yun Past Medical History Past Medical History: Coronary Artery Disease (CAD), Cancer, Chest Pain / Angina, COPD, Hyperlipidemia, Hypertension, [place]ocardial Infarction ([place]) Additional Past Medical History / Comment(s): SVT with chest pain/palpitations-chemically converted(2023), lung cancer with chemo and radiation Last Myocardial Infarction Date:: 2017 History of Any Multi-Drug Resistant Organisms: MRSA Date of last positivie culture/infection: 12/23/2013 MDRO Source:: Face Past Surgical History: Heart Catheterization With Stent Additional Past Surgical History / Comment(s): I&D of Right inframandibular abscess. 3 cardiac stents, bronchoscopy for abscess Past Anesthesia/Blood Transfusion Reactions: No Reported Reaction Additional Past Anesthesia/Blood Transfusion Reaction / Comment(s): platelet transfusions with no reaction r/t chemo Date of Last Stent Placement:: 2017 Past Psychological History: No Psychological Hx Reported Smoking Status: Former smoker Past Alcohol Use History: None Reported Past Drug Use History: Marijuana - Past Family History Father Family Medical History: No Reported History Additional Family Medical History / Comment(s): Father of "natural causes" at the age of 79yrs. Mother Family Medical History: COPD, Coronary Artery Disease (CAD) Additional Family Medical History / Comment(s): Mother is 76yrs old. She has had several MIs, 6 cardiac stents and a 4 vessel CABG. Medications and Allergies Home Medications Medication Instructions Recorded Confirmed Type Atorvastatin [Lipitor] 80 mg PO HS 03/04/21 09/06/23 History Dapagliflozin Propanediol [Farxiga] 10 mg PO DAILY #30 tab 09/01/22 09/06/23 Rx Spiriva Respimat 1.25mcg/Actuation 2 puff INHALATION RT-HS #0 09/01/22 09/06/23 Rx Mist Albuterol Inhaler [Ventolin Hfa 1 - 2 puff INHALATION RT-Q6H PRN 06/06/23 09/06/23 History Inhaler] Hydrocodone/Acetaminophen 1 tab PO QID PRN 06/06/23 09/06/23 History [Hydrocodone/Acetaminophen 10-300 mg] Metoprolol Tartrate [Lopressor] 25 mg PO BID 06/06/23 09/06/23 History Spironolactone [Aldactone] 50 mg PO DAILY 06/06/23 09/06/23 History lisinopriL [Zestril] 20 mg PO DAILY 08/28/23 09/06/23 History Amiodarone [Cordarone] See Taper PO BID 30 Days #58 tab 08/31/23 09/06/23 Rx Apixaban [Eliquis] 5 mg PO BID 30 Days #60 tab 08/31/23 09/06/23 Rx Magnesium Oxide [Mag-Ox] 400 mg PO DAILY 30 Days #30 tab 08/31/23 09/06/23 Rx Pantoprazole [Protonix] 40 mg PO DAILY 30 Days #30 tab 08/31/23 09/06/23 Rx Allergies Allergy/AdvReac Type Severity Reaction Status Date / Time Penicillins Allergy Dyspnea & Verified 09/06/23 08:54 Hives all over Physical Exam Vitals: Vital Signs Temp Pulse Resp BP 09/06/23 10:16 117 H 18 61/33 09/06/23 09:25 99.2 F 120 H 18 78/48 09/06/23 08:42 133 H 16 67/47 Intake and Output 09/05/23 09/06/23 09/06/23 22:59 06:59 14:59 Intake Total 21.647 Balance 21.647 Intake: Intake, IV Titration 21.647 Amount Norepinephrine 32 mg In 4.868 Sodium Chloride 0.9% 218 ml @ 0.03 MCG/KG/MIN 0. 931 mls/hr IV .Q24H ONE Rx#:[id number] Norepinephrine 4 mg In 16.779 Sodium Chloride 0.9% 250 ml @ 0.03 MCG/KG/MIN 7. 569 mls/hr IV .Q24H ONE Rx#:[id number] Other: # Bowel Movements 1 Weight 66.224 kg Results CBC & Chem 7: 09/06/23 08:47 09/06/23 08:47 Labs: Abnormal Lab Results - Last 24 Hours (Table) 09/06/23 09/06/23 09/06/23 Range/Units 08:47 08:47 11:48 WBC 17.6 H (3.8-10.6) k/uL Hgb 12.7 L (13.0-17.5) gm/dL MCHC 30.6 L (31.0-37.0) g/dL RDW 18.9 H (11.5-15.5) % Neutrophils # 15.0 H (1.3-7.7) k/uL Sodium 128 L (137-145) mmol/L Chloride 97 L (98-107) mmol/L Carbon Dioxide 14 L (22-30) mmol/L BUN 36 H (9-20) mg/dL Creatinine 1.34 H (0.66-1.25) mg/dL Glucose 165 H (74-99) mg/dL POC Glucose (mg/dL) 143 H (70-110) mg/dL Calcium 10.6 H (8.4-10.2) mg/dL Alkaline Phosphatase 152 H (38-126) U/L
[2023-09-06 12:56] LABS: VBG PH 7.2 (7.31-7.41)
--- NOTE | 2023-09-06 13:18 | P.CNPUL ---
History of Present Illness Consult date: 09/06/23 Requesting physician: Puneet Leon Reason for consult: dyspnea, other (Critical care management) Chief complaint: Shortness of breath, nausea vomiting, diarrhea History of present illness: This is a 62-year-old male patient with a known history of squamous cell lung cancer and left midlung mass. He also has chronic obstructive pulmonary disease chronic tobacco dependence, hypertension, hyperlipidemia, coronary artery disease with previous stent placement, ischemic cardiomyopathy. He was seen here last in May 2023 for suspected lung infection he had cavitary lesion in the right upper lobe and left lower lobe consolidation. Both of those areas were washed during bronchoscopy and sent to the lab. No malignancy was noted. He is currently undergoing radiation treatments and had 3 out of 10 scheduled but ended up back here in the hospital again. Had developed ongoing issues with increasing shortness of breath, cough congestion nausea vomiting diarrhea. He nearly fell at home from weakness. Chest x-ray revealed consolidative process in the left lower lobe again noted compared to previous on 08/28/2023. Additional irregular density in the right suprahilar region. Was also having chest pain and palpitations. A CT scan revealed no evidence for thoracic or abdominal aortic aneurysm or dissection. There was again noted enlarging cavitary mass of the right upper lobe medially. Progressive consolidation of the left lower lobe with less cavitation. Progressive adenopathy. Left hilar mass difficult to exclude. White count 17.6. Hemoglobin 12.7. Platelets 446. INR 1.0. Sodium 128. Potassium 5.0. Bicarb 14. BUN 36. Creatinine 1.34. Glucose 165. Lactic acid 2.7. Troponin negative x 1. Lipase 111. Is been initiated on Levaquin. He was found to be quite hypotensive. He has received 3-1/2 L of fluid. He is initiated on norepinephrine at 0.2 g/kg/min. He has normal saline at 130 MLS per hour. He is seen today in consultation in the intensive care unit. He is awake and alert in no acute distress. He is maintaining O2 saturations in the mid 90s on 3 L/min per nasal cannula. He afebrile. He remains tachycardic. Review of Systems REVIEW OF SYSTEMS: CONSTITUTIONAL: Positive for significant weight lossn. EYES: Denies change in vision. EARS, NOSE, MOUTH, THROAT: Denies headaches, denies sore throat. CARDIOVASCULAR: Positive for chest pain, palpitations, near syncopal episodes. RESPIRATORY: Positive for shortness of breath, cough, congestion or hemoptysis. GASTROINTESTINAL: Positive for nausea, vomiting, diarrhea GENITOURINARY: Denies hematuria, denies infections. MUSKULOSKELETAL: Denies pain, denies swelling. INTEGUMENTARY: Denies rash, denies eczema. NEUROLOGICAL: Denies recent memory loss, no recent seizure activity. PSYCHIATRIC: Denies anxiety, denies depression. HEMATOLOGIC/LYMPHATIC: Denies anemia, denies enlarged lymph nodes. Past Medical History Past Medical History: Coronary Artery Disease (CAD), Cancer, Chest Pain / Angina, COPD, Hyperlipidemia, Hypertension, Myocardial Infarction ([place]) Additional Past Medical History / Comment(s): SVT with chest pain/palpitations- chemically converted(2023), lung cancer with chemo and radiation Last Myocardial Infarction Date:: 2017 History of Any Multi-Drug Resistant Organisms: MRSA Date of last positivie culture/infection: 12/23/2013 MDRO Source:: Face Past Surgical History: Heart Catheterization With Stent Additional Past Surgical History / Comment(s): I&D of Right inframandibular abscess. 3 cardiac stents, bronchoscopy for abscess Past Anesthesia/Blood Transfusion Reactions: No Reported Reaction Additional Past Anesthesia/Blood Transfusion Reaction / Comment(s): platelet transfusions with no reaction r/t chemo Date of Last Stent Placement:: 2017 Past Psychological History: No Psychological Hx Reported Smoking Status: Former smoker Past Alcohol Use History: None Reported Past Drug Use History: Marijuana - Past Family History Father Family Medical History: No Reported History Additional Family Medical History / Comment(s): Father of "natural causes" at the age of 79yrs. Mother Family Medical History: COPD, Coronary Artery Disease (CAD) Additional Family Medical History / Comment(s): Mother is 76yrs old. She has had several MIs, 6 cardiac stents and a 4 vessel CABG. Medications and Allergies Home Medications Medication Instructions Recorded Confirmed Type Atorvastatin [Lipitor] 80 mg PO HS 03/04/21 09/06/23 History Dapagliflozin Propanediol [Farxiga] 10 mg PO DAILY #30 tab 09/01/22 09/06/23 Rx Spiriva Respimat 1.25mcg/Actuation 2 puff INHALATION RT-HS #0 09/01/22 09/06/23 Rx Mist Albuterol Inhaler [Ventolin Hfa 1 - 2 puff INHALATION RT-Q6H PRN 06/06/23 09/06/23 History Inhaler] Hydrocodone/Acetaminophen 1 tab PO QID PRN 06/06/23 09/06/23 History [Hydrocodone/Acetaminophen 10-300 mg] Metoprolol Tartrate [Lopressor] 25 mg PO BID 06/06/23 09/06/23 History Spironolactone [Aldactone] 50 mg PO DAILY 06/06/23 09/06/23 History lisinopriL [Zestril] 20 mg PO DAILY 08/28/23 09/06/23 History Amiodarone [Cordarone] See Taper PO BID 30 Days #58 tab 08/31/23 09/06/23 Rx Apixaban [Eliquis] 5 mg PO BID 30 Days #60 tab 08/31/23 09/06/23 Rx Magnesium Oxide [Mag-Ox] 400 mg PO DAILY 30 Days #30 tab 08/31/23 09/06/23 Rx Pantoprazole [Protonix] 40 mg PO DAILY 30 Days #30 tab 08/31/23 09/06/23 Rx Allergies Allergy/AdvReac Type Severity Reaction Status Date / Time Penicillins Allergy Dyspnea & Verified 09/06/23 08:54 Hives all over Physical Exam Vitals: Vital Signs Temp Pulse Resp BP Pulse Ox 09/06/23 11:35 120 H 20 68/40 95 09/06/23 11:30 123 H 18 75/41 97 09/06/23 11:25 124 H 18 73/22 93 L 09/06/23 11:20 124 H 28 H 81/45 09/06/23 11:15 129 H 22 65/42 09/06/23 11:10 125 H 22 65/42 95 09/06/23 11:05 124 H 18 59/29 09/06/23 11:00 124 H 24 66/39 94 L 09/06/23 10:55 122 H 24 57/30 94 L 09/06/23 10:50 122 H 23 73/45 95 09/06/23 10:45 122 H 24 78/23 95 09/06/23 10:40 121 H 24 88/50 96 09/06/23 10:35 121 H 24 83/42 96 09/06/23 10:30 122 H 26 H 65/37 96 09/06/23 10:25 118 H 18 69/25 96 09/06/23 10:16 117 H 18 61/33 09/06/23 10:15 116 H 18 70/35 94 L 09/06/23 10:10 122 H 20 69/48 95 09/06/23 10:05 126 H 20 81/39 95 09/06/23 10:00 128 H 32 H 61/50 94 L 09/06/23 09:55 123 H 20 86/41 95 09/06/23 09:50 121 H 18 68/42 95 09/06/23 09:45 118 H 26 H 78/48 95 09/06/23 09:40 118 H 24 121/80 94 L 09/06/23 09:35 120 H 28 H 44/29 94 L 09/06/23 09:30 121 H 32 H 90/33 93 L 09/06/23 09:25 99.2 F 120 H 18 78/48 09/06/23 08:42 133 H 16 67/47 Intake and Output 09/05/23 09/06/23 09/06/23 22:59 06:59 14:59 Intake Total 21.647 Balance 21.647 Intake: Intake, IV Titration 21.647 Amount Norepinephrine 32 mg In 4.868 Sodium Chloride 0.9% 218 ml @ 0.03 MCG/KG/MIN 0. 931 mls/hr IV .Q24H ONE Rx#:[id number] Norepinephrine 4 mg In 16.779 Sodium Chloride 0.9% 250 ml @ 0.03 MCG/KG/MIN 7. 569 mls/hr IV .Q24H ONE Rx#:[id number] Other: # Bowel Movements 1 Weight 66.224 kg GENERAL EXAM: Alert, does not, weak, thin 62-year-old male, on 3 L nasal cannula, fairly comfortable in no apparent distress. HEAD: Normocephalic. EYES: Normal reaction of pupils, equal size. NOSE: Clear with pink turbinates. THROAT: No erythema or exudates. NECK: No masses, no JVD. CHEST: No chest wall deformity. LUNGS: Equal air entry with bilateral scattered rhonchi. CVS: S1 and S2 normal with no audible murmur, regular rhythm. Tachycardic ABDOMEN: No hepatosplenomegaly, normal bowel sounds, no guarding or rigidity. SPINE: No scoliosis or deformity SKIN: No rashes CENTRAL NERVOUS SYSTEM: No focal deficits, tone is normal in all 4 extremities. EXTREMITIES: There is no peripheral edema. No clubbing, no cyanosis. Peripheral pulses are intact. Results - Laboratory Findings CBC and BMP: 09/06/23 08:47 09/06/23 08:47 PT/INR, D-dimer PT 10.9 sec (10.0-12.5) 09/06/23 08:47 INR 1.0 (<1.2) 09/06/23 08:47 Abnormal lab findings: Abnormal Labs 09/06/23 09/06/23 09/06/23 08:47 08:47 11:39 WBC 17.6 H Hgb 12.7 L MCHC 30.6 L RDW 18.9 H Neutrophils # 15.0 H VBG pH VBG HCO3 Sodium 128 L Chloride 97 L Carbon Dioxide 14 L BUN 36 H Creatinine 1.34 H Glucose 165 H POC Glucose (mg/dL) Plasma Lactic Acid Eugene 2.7 H* Calcium 10.6 H Alkaline Phosphatase 152 H 09/06/23 09/06/23 11:39 11:48 WBC Hgb MCHC RDW Neutrophils # VBG pH 7.20 L* VBG HCO3 17 L Sodium Chloride Carbon Dioxide BUN Creatinine Glucose POC Glucose (mg/dL) 143 H Plasma Lactic Acid Eugene Calcium Alkaline Phosphatase - Diagnostic Findings Chest x-ray: image reviewed CT scan - chest: image reviewed Assessment and Plan Assessment: Generalized weakness secondary to nausea, vomiting, diarrhea Hypotension secondary to above Acute kidney injury secondary to dehydration Hyponatremia secondary to above Cardio secondary to above Leukocytosis Metastatic squamous cell carcinoma, likely with disease progression. A CT scan today revealed no evidence for thoracic or abdominal aortic aneurysm or dissection. There was again noted enlarging cavitary mass of the right upper lobe medially. Progressive consolidation of the left lower lobe with less cavitation. Progressive adenopathy. Left hilar mass difficult to exclude. The patient had received 3 recent radiation treatments to complete 10. The patient has been in and out of the hospital and no consistent treatment lately. B ronchoscopy in May 2023 of the right upper lobe and left lower lobe washings revealed no evidence of malignancy. Chronic anemia, current hemoglobin 12.7 History of hypertension History of hyperlipidemia History of coronary artery disease with previous PCI/stent History of ischemic cardiomyopathy, most recent echocardiogram available from 08/27/2022 estimates an impaired left ventricular systolic ejection fraction of 35% Chronic obstructive pulmonary disease, stable Former tobacco dependance History of ocular herpes, on valacyclovir outpatient History of atrial fibrillation, was on amiodarone and Eliquis in the outpatient setting Plan: The patient was seen and evaluated CT scanning of the chest and abdomen reviewed Chest x-ray, labs and medications reviewed Currently on Levaquin Check a procalcitonin Continue fluid resuscitation Lovenox for DVT prophylaxis Titrate the norepinephrine as tolerated We will continue to follow and make further recommendations based on his clini rafita status I have personally seen and examined the patient, performed the documentation and the assessment and plan as written. Number of minutes spent on the visit: 20.
--- NOTE | 2023-09-06 13:38 | P.CRDCN ---
History of Present Illness History of present illness: HISTORY OF PRESENT ILLNESS: This is a 62-year-old male with a past medical history significant for coronary artery disease with previous stenting, COPD lung cancer with chemotherapy and r adiation treatment, SVT, hypertension, and hyperlipidemia. Patient follows in the office with Dr. Tabares. We have been asked to see the patient in consultation for abnormal EKG. Dr. Ardon was notified by ER physician, Dr. Yun, that patient was having chest pain along with abnormal EKG. Patient ex amined at the bedside in the emergency room. When asked patient to describe his chest discomfort, he points to his epigastric region and abdomen. Patient states he is not having any pain in his chest. Patient has significant abdominal tenderness with minimal abdominal palpation. He states he has been having this discomfort for over a week. DIAGNOSTICS: - EKG reveals EKG with ST elevation in precordial leads. No reciprocal changes noted. - Chest xray consolidative process left lower lobe is again noted. Additionally irregular density right suprahilar region seen on CT to reflect cavitary mass. - Laboratory data: WBC 17.6. Hemoglobin 12.7. Platelet count 446. Sodium 128. Potassium 5.0. BUN 36. Creatinine 1.34. Lactic acid 2.7. Troponin negative x 1. - Current home cardiac medications include lisinopril 20 mg daily, Aldactone 50 mg daily, metoprolol tartrate 25 mg twice a day, Farxiga 10 mg daily, Lipitor 80 mg at night, Eliquis 5 mg twice a day, amiodarone of unknown dose. - Most recent echocardiogram obtained on August 29, 2023 revealed ejection fraction 55 to 60%, no obvious regional wall motion abnormalities, trace MR, trace TR - Cardiac catheterization history: 2018 revealing calcified coronary arteries. Critical stenosis involving first OM. Critical stenosis involving proximal RCA and distal RCA. Questionable occluded second diagonal branch. Patient underwent stenting of the circumflex and RCA. REVIEW OF SYSTEMS: At the time of my exam: CONSTITUTIONAL: Denies fever or chills. HEENT: Denies blurred vision, vision changes, or eye pain. Denies hemoptysis CARDIOVASCULAR: Denies chest pain. Denies orthopnea. Denies PND. Denies palpitations RESPIRATORY: + shortness of breath. GASTROINTESTINAL: + abdominal pain HEMATOLOGIC: Denies bleeding disorders. GENITOURINARY: Denies any blood in urine. SKIN: Denies pruitis. Denies rash. PHYSICAL EXAM: VITAL SIGNS: Reviewed. GENERAL: Well-developed in no acute distress. HEENT: Head is normocephalic. Pupils are equal, round. Sclerae anicteric. Mucous membranes of the mouth are moist. Neck supple. No JVD or thyromegaly LUNGS: Respirations even and unlabored. Lungs essentially clear to auscultation bilaterally. HEART: Regular rate and rhythm. S1 and S2 heard. ABDOMEN: Firm. Significant tenderness with mild palpation. EXTREMITIES: Normal range of motion. No clubbing or cyanosis. Peripheral pulses intact. No lower extremity edema NEUROLOGIC: Awake and alert. 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 Continue atorvastatin 80 mg at night Resume Eliquis for hx of atrial fibrillation. Resume amio 200mg daily in attempts to maintain sinus mechanism. Continue telemetry monitoring Patient is not a candidate to undergo invasive procedures at this time. Continue with conservative management. Recommend CT abdomen/pelvis due to significant abdominal pain on examination Further recommendations pending patient course Nurse practitioner note has been reviewed by physician. Signing provider agrees with the documented findings, assessment, and plan of care documented by [employer]ACH[employer] as a scribe. Past Medical History Past Medical History: Coronary Artery Disease (CAD), Cancer, Chest Pain / Angina, COPD, Hyperlipidemia, Hypertension, Myocardial Infarction ([place]) Additional Past Medical History / Comment(s): SVT with chest pain/palpitations- chemically converted(2023), lung cancer with chemo and radiation Last Myocardial Infarction Date:: 2018 History of Any Multi-Drug Resistant Organisms: MRSA Date of last positivie culture/infection: 12/23/2013 MDRO Source:: Face Past Surgical History: Heart Catheterization With Stent Additional Past Surgical History / Comment(s): I&D of Right inframandibular abscess. 3 cardiac stents, bronchoscopy for abscess Past Anesthesia/Blood Transfusion Reactions: No Reported Reaction Additional Past Anesthesia/Blood Transfusion Reaction / Comment(s): platelet transfusions with no reaction r/t chemo Date of Last Stent Placement:: 2017 Past Psychological History: No Psychological Hx Reported Smoking Status: Former smoker Past Alcohol Use History: None Reported Past Drug Use History: Marijuana - Past Family History Father Family Medical History: No Reported History Additional Family Medical History / Comment(s): Father of "natural causes" at the age of 79yrs. Mother Family Medical History: COPD, Coronary Artery Disease (CAD) Additional Family Medical History / Comment(s): Mother is 76yrs old. She has had several MIs, 6 cardiac stents and a 4 vessel CABG. Medications and Allergies Home Medications Medication Instructions Recorded Confirmed Type Atorvastatin [Lipitor] 80 mg PO HS 03/04/21 09/06/23 History Dapagliflozin Propanediol [Farxiga] 10 mg PO DAILY #30 tab 09/01/22 09/06/23 Rx Spiriva Respimat 1.25mcg/Actuation 2 puff INHALATION RT-HS #0 09/01/22 09/06/23 Rx Mist Albuterol Inhaler [Ventolin Hfa 1 - 2 puff INHALATION RT-Q6H PRN 06/06/23 09/06/23 History Inhaler] Hydrocodone/Acetaminophen 1 tab PO QID PRN 06/06/23 09/06/23 History [Hydrocodone/Acetaminophen 10-300 mg] Metoprolol Tartrate [Lopressor] 25 mg PO BID 06/06/23 09/06/23 History Spironolactone [Aldactone] 50 mg PO DAILY 06/06/23 09/06/23 History lisinopriL [Zestril] 20 mg PO DAILY 08/28/23 09/06/23 History Amiodarone [Cordarone] See Taper PO BID 30 Days #58 tab 08/31/23 09/06/23 Rx Apixaban [Eliquis] 5 mg PO BID 30 Days #60 tab 08/31/23 09/06/23 Rx Magnesium Oxide [Mag-Ox] 400 mg PO DAILY 30 Days #30 tab 08/31/23 09/06/23 Rx Pantoprazole [Protonix] 40 mg PO DAILY 30 Days #30 tab 08/31/23 09/06/23 Rx Allergies Allergy/AdvReac Type Severity Reaction Status Date / Time Penicillins Allergy Dyspnea & Verified 09/06/23 08:54 Hives all over Physical Exam Vitals: Vital Signs Temp Pulse Resp BP 09/06/23 10:16 117 H 18 61/33 09/06/23 09:25 99.2 F 120 H 18 78/48 09/06/23 08:42 133 H 16 67/47 Intake and Output 09/05/23 09/06/23 09/06/23 22:59 06:59 14:59 Intake Total 21.647 Balance 21.647 Intake: Intake, IV Titration 21.647 Amount Norepinephrine 32 mg In 4.868 Sodium Chloride 0.9% 218 ml @ 0.03 MCG/KG/MIN 0. 931 mls/hr IV .Q24H ONE Rx#:[id number] Norepinephrine 4 mg In 16.779 Sodium Chloride 0.9% 250 ml @ 0.03 MCG/KG/MIN 7. 569 mls/hr IV .Q24H ONE Rx#:[id number] Other: # Bowel Movements 1 Weight 66.224 kg Results 09/06/23 08:47 09/06/23 08:47 Cardiac Enzymes 09/06/23 09/06/23 Range/Units 08:47 08:47 AST 23 (17-59) U/L Troponin I <0.012 (0.000-0.034) ng/mL Coagulation 09/06/23 Range/Units 08:47 PT 10.9 (10.0-12.5) sec APTT 24.6 (22.0-30.0) sec CBC 09/06/23 Range/Units 08:47 WBC 17.6 H (3.8-10.6) k/uL RBC 4.62 (4.30-5.90) m/uL Hgb 12.7 L (13.0-17.5) gm/dL Hct 41.6 (39.0-53.0) % Plt Count 446 (150-450) k/uL Comprehensive Metabolic Panel 09/06/23 Range/Units 08:47 Sodium 128 L (137-145) mmol/L Potassium 5.0 (3.5-5.1) mmol/L Chloride 97 L (98-107) mmol/L Carbon Dioxide 14 L (22-30) mmol/L BUN 36 H (9-20) mg/dL Creatinine 1.34 H (0.66-1.25) mg/dL Glucose 165 H (74-99) mg/dL Calcium 10.6 H (8.4-10.2) mg/dL AST 23 (17-59) U/L ALT 16 (4-49) U/L Alkaline Phosphatase 152 H (38-126) U/L Total Protein 7.2 (6.3-8.2) g/dL Albumin 3.5 (3.5-5.0) g/dL Current Medications Generic Name Dose Route Start Last Admin Trade Name Freq PRN Reason Stop Dose Admin Atorvastatin Calcium 80 mg 09/06/23 21:00 Atorvastatin 80 Mg Tab PO HS GILMER Norepinephrine Bitartrate 32 250 mls @ 0.931 mls/hr 09/06/23 10:00 09/06/23 11:30 mg/ Sodium Chloride IV 09/07/23 09:59 0.2 mcg/kg/min .Q24H ONE 6.209 mls/hr Titration Protocol 0.03 MCG/KG/MIN Sodium Chloride 1,000 mls @ 130 mls/hr 09/06/23 10:15 09/06/23 11:31 Saline 0.9% IV 130 mls/hr .Q7H42M GILMER Administration Levofloxacin 750 mg/ IV 150 mls @ 100 mls/hr 09/07/23 10:00 Solution IVPB Q24H GILMER Protocol Naloxone HCl 0.2 mg 09/06/23 10:10 Naloxone 0.4 Mg/Ml 1 Ml Vial IV Q2M PRN Opioid Reversal Pantoprazole Sodium 40 mg 09/06/23 12:30 Pantoprazole 40 Mg/10 Ml Vial IVP DAILY GILMER Intake and Output 09/05/23 09/06/23 09/06/23 22:59 06:59 14:59 Intake Total 21.647 Balance 21.647 Intake: Intake, IV Titration 21.647 Amount Norepinephrine 32 mg In 4.868 Sodium Chloride 0.9% 218 ml @ 0.03 MCG/KG/MIN 0. 931 mls/hr IV .Q24H ONE Rx#:[id number] Norepinephrine 4 mg In 16.779 Sodium Chloride 0.9% 250 ml @ 0.03 MCG/KG/MIN 7. 569 mls/hr IV .Q24H ONE Rx#:[id number] Other: # Bowel Movements 1 Weight 66.224 kg Patient Weight 09/07/23 06:59 Weight 66.224 kg 09/06/23 08:47 09/06/23 08:47
[2023-09-06 13:39] LABS: Appearance,Urine Clear (Clear); Bilirubin,Urine Negative (Negative); Blood,Urine Trace (Negative); Color,Urine Colorless; Glucose,Urine (UA) 1+ (Negative); Ketones,Urine Negative (Negative); Leukocyte Esterase,Urine Negative (Negative); Mucus,Urine Rare /hpf; Nitrite,Urine Negative (Negative); PH, Urine 5.5 (5.0-8.0); Protein,Urine Trace (Negative); RBC,Urine 1 /hpf (0-5); Specific Gravity,Urine 1.016 (1.001-1.035); Squamous Epithelial Cell,Urine <1 /hpf (0-4); Urobilinogen,Urine <2.0 mg/dL (<2.0); WBC,Urine 2 /hpf (0-5)
[2023-09-06] MEDS ORDERED: VANCOMYCIN IV PER PHARMACY 1 EACH MISC MISCELLANE PRN (15:37)
[2023-09-06] MEDS: PANTOPRAZOLE 40 MG/10 ML VIAL IVP SCH (16:07)
[2023-09-06] MEDS: APIXABAN 5 MG TAB PO SCH (16:07)
[2023-09-06] MEDS: VANCOMYCIN 1,250 MG in SODIUM CHLORIDE 0.9% 250 ML IVPB STA (16:08)
[2023-09-06] MEDS: MORPHINE SULFATE 2 MG/ML SYRINGE IVP PRN (16:18)
[2023-09-06 16:44] LABS: African American GFR (CKD) 62 (>60 ml/min/1.73 sqM); Anion Gap 8 mmol/L; Blood Urea Nitrogen 38 mg/dL (9-20); Carbon Dioxide 16 mmol/L (22-30); Chloride 104 mmol/L (98-107); Glucose 134 mg/dL (74-99); Non-African American GFR(CKD) 54 (>60 ml/min/1.73 sqM); Potassium 5.5 mmol/L (3.5-5.1); Sodium 128 mmol/L (137-145)
[2023-09-06] MEDS ORDERED: HEPARIN SODIUM 1,000 UN/ML (10ML VL) IV PRN (17:06)
[2023-09-06] MEDS: CEFEPIME 2 GM in SODIUM CHLORIDE 0.9% 100 ML IVPB SCH (18:34)
[2023-09-06] MEDS: SODIUM BICARB 8.4% 50 ML SYR (1 MEQ/ML) IV STA (18:34)
[2023-09-06] MEDS: HEPARIN SOD,PORK IN 0.45% NACL 25,000 UNIT in 0.45% NACL 1 250ML.BAG IV SCH (18:53)
[2023-09-06] MEDS: HEPARIN SODIUM 1,000 UN/ML (10ML VL) IV ONE (18:54)
[2023-09-06] MEDS: ATORVASTATIN 80 MG TAB PO SCH (21:12)
[2023-09-06 22:12] LABS: African American GFR (CKD) 75 (>60 ml/min/1.73 sqM); Anion Gap 7 mmol/L; Blood Urea Nitrogen 34 mg/dL (9-20); Calcium 9.1 mg/dL (8.4-10.2); Carbon Dioxide 18 mmol/L (22-30); Chloride 106 mmol/L (98-107); Glucose 105 mg/dL (74-99); Non-African American GFR(CKD) 65 (>60 ml/min/1.73 sqM); Sodium 131 mmol/L (137-145)
--- NOTE | 2023-09-06 22:41 | P.CONS ---
History of Present Illness - Reason for Consult Consult date: 09/06/23 Sepsis, lung abscess Requesting physician: Jerome Sow - Chief Complaint Weakness cough and hemoptysis x few days - History of Present Illness Patient is a 62-year-old male with a past medical history significant for coronary disease hypertension hyperlipidemia, squamous cell carcinoma of the left midline patient also have admission in May 2023 concerning for possible cavitating pneumonia abscess sputum was positive for MSSA patient was treated with Rocephin clindamycin subsequent discharged on a 10-day course of Bactrim DS patient will also have subsequent admission to this hospital with A-fib with RVR and was discharged on 08/31/2023 patient now brought back to the hospital complaining of weakness and fall patient mention he woke up this morning to go to the bathroom thought he was having a bowel movement however she just peed and came back when he came back to the bed pain has been urged to go again subsequently went back to the bathroom missed the toilet and fell down patient got worked up and was complaining of increasing shortness of breath patient did have a cough and mention he did have some blood in the sputum yesterday and also some pleuritic chest pain however the patient not very specific about it and also been complaining of abdominal pain along with the constipation nausea but no vomiting with the symptoms the patient has been evaluated on presentation to the hospital he did have a low-grade fever of 99.2 F patient was tachycardic and hypotensive requiring admission to ICU he was also hypoxic currently on increased nasal cannula oxygen patient workup in the ER include a white count of 17.6 creatinine 1.20 liver isms are normal troponin is positive patient did have a thoracic aorta CT no evidence of thoracic or abdominal aortic aneurysm or dissection enlarging cavitating mass right upper lobe medially progressive consolidation left lower lobe with less cavitation patient was started on Levaquin has been admitted to hospital infectious disease was consulted for further management of antibiotic therapy Review of Systems Positive point and negatives has been mentioned in the HPI, complete review of systems was performed and all other systems are negative Past Medical History Past Medical History: Coronary Artery Disease (CAD), Cancer, Chest Pain / Angina, COPD, Hyperlipidemia, Hypertension, Myocardial Infarction ([place]) Additional Past Medical History / Comment(s): SVT with chest pain/palpitations- chemically converted(2023), lung cancer with chemo and radiation Last Myocardial Infarction Date:: 2017 History of Any Multi-Drug Resistant Organisms: MRSA Year Discovered:: 12/23/2013 MDRO Source:: Face Past Surgical History: Heart Catheterization With Stent Additional Past Surgical History / Comment(s): I&D of Right inframandibular abscess. 3 cardiac stents, bronchoscopy for abscess Past Anesthesia/Blood Transfusion Reactions: No Reported Reaction Additional Past Anesthesia/Blood Transfusion Reaction / Comm: platelet transfusions with no reaction r/t chemo Date of Last Stent Placement:: 2017 Past Psychological History: No Psychological Hx Reported Smoking Status: Former smoker Past Alcohol Use History: None Reported Past Drug Use History: Marijuana - Past Family History Father Family Medical History: No Reported History Additional Family Medical History / Comment(s): Father of "natural causes" at the age of 79yrs. Mother Family Medical History: COPD, Coronary Artery Disease (CAD) Additional Family Medical History / Comment(s): Mother is 76yrs old. She has had several MIs, 6 cardiac stents and a 4 vessel CABG. Medications and Allergies Home Medications Medication Instructions Recorded Confirmed Type Atorvastatin [Lipitor] 80 mg PO HS 03/04/21 09/06/23 History Dapagliflozin Propanediol [Farxiga] 10 mg PO DAILY #30 tab 09/01/22 09/06/23 Rx Spiriva Respimat 1.25mcg/Actuation 2 puff INHALATION RT-HS #0 09/01/22 09/06/23 Rx Mist Albuterol Inhaler [Ventolin Hfa 1 - 2 puff INHALATION RT-Q6H PRN 06/06/23 09/06/23 History Inhaler] Hydrocodone/Acetaminophen 1 tab PO QID PRN 06/06/23 09/06/23 History [Hydrocodone/Acetaminophen 10-300 mg] Metoprolol Tartrate [Lopressor] 25 mg PO BID 06/06/23 09/06/23 History Spironolactone [Aldactone] 50 mg PO DAILY 06/06/23 09/06/23 History lisinopriL [Zestril] 20 mg PO DAILY 08/28/23 09/06/23 History Amiodarone [Cordarone] See Taper PO BID 30 Days #58 tab 08/31/23 09/06/23 Rx Apixaban [Eliquis] 5 mg PO BID 30 Days #60 tab 08/31/23 09/06/23 Rx Magnesium Oxide [Mag-Ox] 400 mg PO DAILY 30 Days #30 tab 08/31/23 09/06/23 Rx Pantoprazole [Protonix] 40 mg PO DAILY 30 Days #30 tab 08/31/23 09/06/23 Rx Allergies Allergy/AdvReac Type Severity Reaction Status Date / Time Penicillins Allergy Dyspnea & Verified 09/06/23 08:54 Hives all over Physical Exam Vitals: Vital Signs Temp Pulse Resp BP Pulse Ox 09/06/23 11:35 120 H 20 68/40 95 09/06/23 11:30 123 H 18 75/41 97 09/06/23 11:25 124 H 18 73/22 93 L 09/06/23 11:20 124 H 28 H 81/45 09/06/23 11:15 129 H 22 65/42 09/06/23 11:10 125 H 22 65/42 95 09/06/23 11:05 124 H 18 59/29 09/06/23 11:00 124 H 24 66/39 94 L 09/06/23 10:55 122 H 24 57/30 94 L 09/06/23 10:50 122 H 23 73/45 95 09/06/23 10:45 122 H 24 78/23 95 09/06/23 10:40 121 H 24 88/50 96 09/06/23 10:35 121 H 24 83/42 96 09/06/23 10:30 122 H 26 H 65/37 96 09/06/23 10:25 118 H 18 69/25 96 09/06/23 10:16 117 H 18 61/33 09/06/23 10:15 116 H 18 70/35 94 L 09/06/23 10:10 122 H 20 69/48 95 09/06/23 10:05 126 H 20 81/39 95 09/06/23 10:00 128 H 32 H 61/50 94 L 09/06/23 09:55 123 H 20 86/41 95 09/06/23 09:50 121 H 18 68/42 95 09/06/23 09:45 118 H 26 H 78/48 95 09/06/23 09:40 118 H 24 121/80 94 L 09/06/23 09:35 120 H 28 H 44/29 94 L 09/06/23 09:30 121 H 32 H 90/33 93 L 07/23/24 09:25 99.2 F 120 H 18 78/48 09/06/23 08:42 133 H 16 67/47 Intake and Output 09/05/23 09/06/23 09/06/23 22:59 06:59 14:59 Intake Total 21.647 Balance 21.647 Intake: Intake, IV Titration 21.647 Amount Norepinephrine 32 mg In 4.868 Sodium Chloride 0.9% 218 ml @ 0.03 MCG/KG/MIN 0. 931 mls/hr IV .Q24H ONE Rx#:[id number] Norepinephrine 4 mg In 16.779 Sodium Chloride 0.9% 250 ml @ 0.03 MCG/KG/MIN 7. 569 mls/hr IV .Q24H ONE Rx#:[id number] Other: # Bowel Movements 1 Weight 66.224 kg GENERAL DESCRIPTION: Middle-aged male lying in bed, no distress. No tachypnea or accessory muscle of respiration use. HEENT: Shows Pallor , no scleral icterus. Oral mucous membrane is dry. NECK: Trachea central, no thyromegaly. LUNGS: Unlabored breathing. Coarse breath sounds bilaterally HEART: S1, S2, regular rate and rhythm. No loud murmur ABDOMEN: Soft, no tenderness , EXTREMITIES: No edema of feet. SKIN: No rash, no masses palpable. NEUROLOGICAL: The patient is awake, alert, oriented x3, mood and affect normal. Results CBC & Chem 7: 09/08/23 05:41 09/08/23 05:41 Labs: Abnormal Lab Results - Last 24 Hours (Table) 09/06/23 09/06/23 09/06/23 Range/Units 08:47 08:47 11:39 WBC 17.6 H (3.8-10.6) k/uL Hgb 12.7 L (13.0-17.5) gm/dL MCHC 30.6 L (31.0-37.0) g/dL RDW 18.9 H (11.5-15.5) % Neutrophils # 15.0 H (1.3-7.7) k/uL VBG pH (7.31-7.41) VBG HCO3 (24-28) mmol/L Sodium 128 L (137-145) mmol/L Chloride 97 L (98-107) mmol/L Carbon Dioxide 14 L (22-30) mmol/L BUN 36 H (9-20) mg/dL Creatinine 1.34 H (0.66-1.25) mg/dL Glucose 165 H (74-99) mg/dL POC Glucose (mg/dL) (70-110) mg/dL Plasma Lactic Acid Eugene 2.7 H* (0.7-2.0) mmol/L Calcium 10.6 H (8.4-10.2) mg/dL Alkaline Phosphatase 152 H (38-126) U/L 09/06/23 09/06/23 Range/Units 11:39 11:48 WBC (3.8-10.6) k/uL Hgb (13.0-17.5) gm/dL MCHC (31.0-37.0) g/dL RDW (11.5-15.5) % Neutrophils # (1.3-7.7) k/uL VBG pH 7.20 L* (7.31-7.41) VBG HCO3 17 L (24-28) mmol/L Sodium (137-145) mmol/L Chloride (98-107) mmol/L Carbon Dioxide (22-30) mmol/L BUN (9-20) mg/dL Creatinine (0.66-1.25) mg/dL Glucose (74-99) mg/dL POC Glucose (mg/dL) 143 H (70-110) mg/dL Plasma Lactic Acid Eugene (0.7-2.0) mmol/L Calcium (8.4-10.2) mg/dL Alkaline Phosphatase (38-126) U/L Assessment and Plan (1) Sepsis Current Visit: Yes Status: Acute Code(s): A41.9 - SEPSIS, UNSPECIFIED ORGANISM SNOMED Code(s): 16049926 (2) Penicillin allergy Current Visit: Yes Status: Acute Code(s): Z88.0 - ALLERGY STATUS TO PENICILLIN SNOMED Code(s): 79612924 (3) Pneumonia Current Visit: No Status: Acute Priority: High Code(s): J18.9 - PNEUMONIA, UNSPECIFIED ORGANISM SNOMED Code(s): 013692577 Plan: 1patient presented to hospital with sepsis in this patient who did have low- grade fever tachycardia elevated white count source is likely pneumonia with evidence of worsening cavitation to the right upper lobe medially and consolidation of the left lower lobe with concern for possible resistant gram- positive or gram-negative pathogen as the patient has been out of the hospital and did have previous history of MSSA pneumonia 2-penicillin allergy that will limit number of antibiotics safe to use 3-will try to obtain a sputum for Gram stain and culture check a CRP and procalcitonin level 4-we will start the patient on vancomycin pharmacy to dose and cefepime pending culture finalization We will follow on clinical condition and cultures to further adjust medication if needed Thank you for this consultation we will follow the patient along with you Dictation was produced using [employer] dictation software. please excuse any grammatical, word or spelling errors. Time with Patient: Greater than 30
[2023-09-07 06:29] LABS: Anisocytosis Slight; Basophils % (A) 0 %; Eosinophils % (A) 0 %; HCT 34.1 % (39.0-53.0); HGB 10.3 gm/dL (13.0-17.5); Hypochromasia Marked; Lymphocytes # (A) 0.4 k/uL (1.0-4.8); Lymphocytes % (A) 2 %; MCH 27.2 pg (25.0-35.0); MCHC 30.2 g/dL (31.0-37.0); MCV 90.3 fL (80.0-100.0); Mean Platelet Volume 7.8; Monocytes # (A) 0.7 k/uL (0-1.0); Monocytes % (A) 4 %; Neutrophils % (A) 94 %; Platelet Count 404 k/uL (150-450); RBC 3.78 m/uL (4.30-5.90); RDW 18.8 % (11.5-15.5); WBC 19.1 k/uL (3.8-10.6)
[2023-09-07 06:49] LABS: African American GFR (CKD) 89 (>60 ml/min/1.73 sqM); Anion Gap 7 mmol/L; Blood Urea Nitrogen 24 mg/dL (9-20); Calcium 9.2 mg/dL (8.4-10.2); Carbon Dioxide 20 mmol/L (22-30); Chloride 106 mmol/L (98-107); Glucose 93 mg/dL (74-99); Non-African American GFR(CKD) 77 (>60 ml/min/1.73 sqM); Potassium 4.7 mmol/L (3.5-5.1); Sodium 133 mmol/L (137-145)
[2023-09-07] MEDS: ONDANSETRON 4 MG/2 ML VIAL IVP PRN (07:03)
[2023-09-07 07:43] LABS: INR 1.1 (<1.2); Prothrombin Time 11.5 sec (10.0-12.5)
--- NOTE | 2023-09-07 07:47 | P.PN ---
Subjective Progress Note Date: 09/07/23 62 year old M with PMH of lung CA with history of lung abscess, COPD with intermittent home O2, CAD with stents, h/o SVT, HTN, HLD, CHF with previous EF 35-40% presents to the ED for multiple complaints. He reports waking up this morning with a coughing fit. He reports chest pain, stabbing in nature, mid- sternal, worse with deep inspiration that started with the coughing fit. Chest pain is associated with palpitations. When he went to the washroom his legs gave out. He reports feeling nauseated with chronic epigastric pain since initiating chemotherapy. He reports not eating or drinking much for the past week. He complaints of a lump in his throat. He also reports positional lightheadedness. He feels short of breath with ambulation since starting chemotherapy and radiation. His last radiation treatment was yesterday with Dr. Shearer. Chemotherapy has been put on hold for the past few months by Dr. Hyoos while he recovered from his known lung abscess. He denies any headache, lower extremity edema, fever or chills, changes in urination or bowel habits. In the ED he underwent extensive evaluation. BP 67/47 HR 133, T 99.2F, with periods of desaturation into the 80s while on 2L NC. CBC, Coag panel, CMP significant for WBC 17.6, Hg 12.7, Na 128, Cl 97, bicarb 14, BUN 36, Cr 1.34, glu 165, Ca 10.6, alk phos 152. Lactic acid 2.7. Troponin < 0.012. Lipase 111. EKG sinus tachycardia with PVCs. CT thorax enlarging cavitary mass right upper lobe medially, progressive left lower lobe with less cavitation and progressive adenopathy. He was given a dose of Levaquin and NS bolus and admitted to ICU for need for pressors. Patient was given 3.5L NS bolus and started on maintenance fluids along with norepinephrine drip and admitted to ICU. Initially started on Levaquin for treatment of lung abscess, ID consulted, antibiotics switched to Vancomycin and Cefepime. Troponins trending < 0.012, 0.1, 0.062 thus Eliquis discontinued and patient started on Heparin drip. 09/06 Patient was seen and examined. CBC WBC 19.1, Hg 10.3, Hct 34.1. APTT 50.7. BMP Na 133, bicarb 20, BUN 24. Stool occult positive. VBG done yesterday shows pH 7.2. Acetone positive. Repeat lactic acid downtrending from 2.7 to 1.4. Procal 7.87. Legionella Ag negative. Antibiotics include Vancomycin (D2) and Cefepime (D2). Currently on Heparin drip at 12 units/kg/hr. Levophed running at 0.07 mcg/kg/min. CXR done today shows persistent cavitary lesion in the RUL and LLL consolidation. General: Non toxic, mild distress, cachectic Derm: Warm, dry Head: Atraumatic, normocephalic, symmetric Eyes: EOMI, no lid lag, anicteric sclera Mouth: No lip lesion, mucus membranes moist Cardiovascular: S1S2 tachy, no murmur Lungs: Decreased BS bilateral, no rhonchi, no rales, no accessory muscle use Abdominal: Soft, TTP in all 4 quadrants worse in the epigastric region without rebound, no guarding, no appreciable organomegaly Ext: No gross muscle atrophy, no edema, no contractures Neuro: no focal neuro deficits Psych: Alert, oriented, appropriate affect Based on my assessment of this patient, this patient meets a high complexity level of care. Septic shock likely due to lung abscess: Hypotension. Tachycardic. Leukocytosis. Status post 3.5L NS bolus in the ED and ICU. Continue NS at 130 cc/hr. CT with findings of lung abscess. Levaquin switched to Vancomycin dosed per pharmacy and Cefepime 2g IV TID. Holding Lisinopril, Metoprolol and Aldactone. Pro-rafita elevated. Legionella Ag negative. UA negative nitrite or LE. Sputum Cx, BCx pending. Obtain COVID/RSV/Flu. Echo pending. Telemetry monitoring. Tylenol 650 mg PO Q6H PRN for fever. ID and Pulmonary on board. Acute hypoxic respiratory failure likely due to above NSTEMI: Likely Type 2. Pleuritic. Likely related to lung abscess. Troponin < 0.012, 0.1, 0.062. Echo is pending as above. Continue Heparin drip for now. ASA 81 mg PO QD and Lipitor 80 mg PO QHS. Holding Metoprolol for now. Cardiology on board. Metabolic acidosis: Likely combination of euglycemic DKA (from Jardiance) and Lactic acidosis. UA negative for ketones. Serum acetone positive. High anion gap resolved with IV hydration and 2 amps of bicarb. Hyponatremia: Improving. IV hydration as above. Acute kidney injury due to severe dehydration: Improving. Holding Lisinopril, Aldactone for now. IV hydration as above. Epigastric pain with + stool occult: With nausea and vomiting. Possible gastritis. No abnormalities in the abdomen/pelvis seen on thorax CT. Protonix 40 mg IV QD. Watch for signs of GI bleed while on Heparin infusion. Resolved: Lactic acidosis, High anion gap CODE STATUS: FULL CODE DVT Prophylaxis: Lovenox SQ GI Prophylaxis: Protonix IV Designated medical POA if patient is not able to make medical decisions for themselves: I have reviewed the following senior science consultant notes: Pulmonary, Cardiology, ID note. I have reviewed the results of the following tests: CBC, BMP, Troponin x2, Stool occult, VBG, Acetone, Lactic acid, Procal. I have ordered the following tests: CBC and BMP tomorrow to trend leukocytosis and renal function while on Vancomycin. COVID/RSV/Flu ordered. Echo is pending. Sputum and BCx pending. I have discussed the care of this patient with the following independent historian: I have independently interpreted the following test below: CXR. I have discussed the management of this patient with the following physician: Objective - Vital Signs Vital signs: Vital Signs Temp 98.4 F 09/07/23 04:00 Pulse 104 H 09/07/23 07:00 Resp 20 09/07/23 07:00 BP 114/68 09/07/23 07:00 Pulse Ox 100 09/07/23 07:00 FiO2 Intake & Output 09/06/23 09/07/23 09/07/23 18:59 06:59 18:59 Intake Total 2222.318 2156.703 130 Output Total 810 2640 65 Balance 1412.318 -483.297 65 Weight 66.224 kg Intake: IV 2184 1505 130 Cefepime 2 gm In Sodium 25 75 Chloride 0.9% 100 ml @ 25 mls/hr IVPB Q8HR [facility] Rx# :[id number] Sodium Chloride 0.9% 1, 910 1430 130 000 ml @ 130 mls/hr IV . Q7H42M [facility] Rx#:[id number] Sodium Chloride 0.9% 1, 999 000 ml @ 999 mls/hr IV . Q1H1M [facility] Rx#:[id number] Vancomycin 1,250 mg In 250 Sodium Chloride 0.9% 250 ml @ 125 mls/hr IVPB [facility] Rx#:[id number] Intake, IV Titration 38.318 121.703 Amount Heparin Sod,Pork in 0.45% 55.894 NaCl 25,000 unit In 0.45 % NaCl 1 250ml.bag @ 12 UNITS/KG/HR 7.947 mls/hr IV .Q24H [facility] Rx#: [id number] Norepinephrine 32 mg In 21.539 65.809 Sodium Chloride 0.9% 218 ml @ 0.03 MCG/KG/MIN 0. 931 mls/hr IV .Q24H [facility] Rx#:[id number] Norepinephrine 4 mg In 16.779 Sodium Chloride 0.9% 250 ml @ 0.03 MCG/KG/MIN 7. 569 mls/hr IV .Q24H [facility] Rx#:[id number] Oral 400 Lipid 130 Sodium Chloride 0.9% 1, 130 000 ml @ 130 mls/hr IV . Q7H42M [facility] Rx#:[id number] Output: Urine 810 2595 65 Stool 25 Emesis 20 Other: Voiding Method Indwelling Catheter Indwelling Catheter # Bowel Movements 1 1 - Labs CBC & Chem 7: 09/07/23 05:35 09/07/23 05:35 Labs: Abnormal Lab Results - Last 24 Hours (Table) 09/06/23 09/06/23 09/06/23 Range/Units 08:47 08:47 11:39 WBC 17.6 H (3.8-10.6) k/uL RBC (4.30-5.90) m/uL Hgb 12.7 L (13.0-17.5) gm/dL Hct (39.0-53.0) % MCHC 30.6 L (31.0-37.0) g/dL RDW 18.9 H (11.5-15.5) % Neutrophils # 15.0 H (1.3-7.7) k/uL Lymphocytes # (1.0-4.8) k/uL APTT (22.0-30.0) sec VBG pH (7.31-7.41) VBG HCO3 (24-28) mmol/L Sodium 128 L (137-145) mmol/L Potassium (3.5-5.1) mmol/L Chloride 97 L (98-107) mmol/L Carbon Dioxide 14 L (22-30) mmol/L BUN 36 H (9-20) mg/dL Creatinine 1.34 H (0.66-1.25) mg/dL Glucose 165 H (74-99) mg/dL POC Glucose (mg/dL) (70-110) mg/dL Plasma Lactic Acid Eugene 2.7 H* (0.7-2.0) mmol/L Calcium 10.6 H (8.4-10.2) mg/dL Alkaline Phosphatase 152 H (38-126) U/L Troponin I (0.000-0.034) ng/mL Procalcitonin (0.02-0.09) ng/mL Urine Protein (Negative) Urine Glucose (UA) (Negative) Urine Blood (Negative) Urine Mucus (None) /hpf 09/06/23 09/06/23 09/06/23 Range/Units 11:39 11:48 13:15 WBC (3.8-10.6) k/uL RBC (4.30-5.90) m/uL Hgb (13.0-17.5) gm/dL Hct (39.0-53.0) % MCHC (31.0-37.0) g/dL RDW (11.5-15.5) % Neutrophils # (1.3-7.7) k/uL Lymphocytes # (1.0-4.8) k/uL APTT (22.0-30.0) sec VBG pH 7.20 L* (7.31-7.41) VBG HCO3 17 L (24-28) mmol/L Sodium (137-145) mmol/L Potassium (3.5-5.1) mmol/L Chloride (98-107) mmol/L Carbon Dioxide (22-30) mmol/L BUN (9-20) mg/dL Creatinine (0.66-1.25) mg/dL Glucose (74-99) mg/dL POC Glucose (mg/dL) 143 H (70-110) mg/dL Plasma Lactic Acid Eugene (0.7-2.0) mmol/L Calcium (8.4-10.2) mg/dL Alkaline Phosphatase (38-126) U/L Troponin I (0.000-0.034) ng/mL Procalcitonin (0.02-0.09) ng/mL Urine Protein Trace H (Negative) Urine Glucose (UA) 1+ H (Negative) Urine Blood Trace H (Negative) Urine Mucus Rare H (None) /hpf 09/06/23 09/06/23 09/06/23 Range/Units 14:17 14:17 15:49 WBC (3.8-10.6) k/uL RBC (4.30-5.90) m/uL Hgb (13.0-17.5) gm/dL Hct (39.0-53.0) % MCHC (31.0-37.0) g/dL RDW (11.5-15.5) % Neutrophils # (1.3-7.7) k/uL Lymphocytes # (1.0-4.8) k/uL APTT (22.0-30.0) sec VBG pH (7.31-7.41) VBG HCO3 (24-28) mmol/L Sodium (137-145) mmol/L Potassium (3.5-5.1) mmol/L Chloride (98-107) mmol/L Carbon Dioxide (22-30) mmol/L BUN (9-20) mg/dL Creatinine (0.66-1.25) mg/dL Glucose (74-99) mg/dL POC Glucose (mg/dL) (70-110) mg/dL Plasma Lactic Acid Eugene (0.7-2.0) mmol/L Calcium (8.4-10.2) mg/dL Alkaline Phosphatase (38-126) U/L Troponin I 0.117 H* 0.100 H* (0.000-0.034) ng/mL Procalcitonin 7.87 H (0.02-0.09) ng/mL Urine Protein (Negative) Urine Glucose (UA) (Negative) Urine Blood (Negative) Urine Mucus (None) /hpf 09/06/23 09/06/23 09/07/23 Range/Units 15:49 21:45 01:06 WBC (3.8-10.6) k/uL RBC (4.30-5.90) m/uL Hgb (13.0-17.5) gm/dL Hct (39.0-53.0) % MCHC (31.0-37.0) g/dL RDW (11.5-15.5) % Neutrophils # (1.3-7.7) k/uL Lymphocytes # (1.0-4.8) k/uL APTT 50.7 H (22.0-30.0) sec VBG pH (7.31-7.41) VBG HCO3 (24-28) mmol/L Sodium 128 L 131 L (137-145) mmol/L Potassium 5.5 H (3.5-5.1) mmol/L Chloride (98-107) mmol/L Carbon Dioxide 16 L 18 L (22-30) mmol/L BUN 38 H 34 H (9-20) mg/dL Creatinine 1.41 H (0.66-1.25) mg/dL Glucose 134 H 105 H (74-99) mg/dL POC Glucose (mg/dL) (70-110) mg/dL Plasma Lactic Acid Eugene (0.7-2.0) mmol/L Calcium (8.4-10.2) mg/dL Alkaline Phosphatase (38-126) U/L Troponin I (0.000-0.034) ng/mL Procalcitonin (0.02-0.09) ng/mL Urine Protein (Negative) Urine Glucose (UA) (Negative) Urine Blood (Negative) Urine Mucus (None) /hpf 09/07/23 09/07/23 09/07/23 Range/Units 05:35 05:35 05:35 WBC 19.1 H (3.8-10.6) k/uL RBC 3.78 L (4.30-5.90) m/uL Hgb 10.3 L (13.0-17.5) gm/dL Hct 34.1 L (39.0-53.0) % MCHC 30.2 L (31.0-37.0) g/dL RDW 18.8 H (11.5-15.5) % Neutrophils # 18.0 H (1.3-7.7) k/uL Lymphocytes # 0.4 L (1.0-4.8) k/uL APTT (22.0-30.0) sec VBG pH (7.31-7.41) VBG HCO3 (24-28) mmol/L Sodium 133 L (137-145) mmol/L Potassium (3.5-5.1) mmol/L Chloride (98-107) mmol/L Carbon Dioxide 20 L (22-30) mmol/L BUN 24 H (9-20) mg/dL Creatinine (0.66-1.25) mg/dL Glucose (74-99) mg/dL POC Glucose (mg/dL) (70-110) mg/dL Plasma Lactic Acid Eugene (0.7-2.0) mmol/L Calcium (8.4-10.2) mg/dL Alkaline Phosphatase (38-126) U/L Troponin I 0.062 H* (0.000-0.034) ng/mL Procalcitonin (0.02-0.09) ng/mL Urine Protein (Negative) Urine Glucose (UA) (Negative) Urine Blood (Negative) Urine Mucus (None) /hpf
--- NOTE | 2023-09-07 07:58 | XR ---
EXAMINATION TYPE: XR chest 1V portable DATE OF EXAM: 09/07/2023 COMPARISON: 09/06/2023 HISTORY: Shortness of breath TECHNIQUE: Frontal and lateral views of the chest are obtained. FINDINGS: Scattered senescent parenchymal changes noted. Hyperinflation compatible with COPD. Left lower lobe consolidative process as well as right suprahilar opacity remains stable. Heart size is stable. Mediastinal structures are stable and grossly unremarkable. No evidence for hilar prominence. Degenerative changes dorsal spine. IMPRESSION: 1. Left lower lobe consolidative process as well as right suprahilar opacity remains stable.
--- NOTE | 2023-09-07 07:59 | P.PN ---
Subjective Progress Note Date: 09/07/23 This is a 62-year-old gentleman with a past medical history significant for CAD as well as hypertension and dyslipidemia and history of lung cancer who was admitted to the hospital with abdominal discomfort. He was found to have mildly elevated troponin. On examination he did have a rigid abdomen/surgical abdomen but CT scan of the abdomen and pelvis and chest did not show any acute abnormalities. September 07, 2023 The patient was seen and evaluated this morning. He is overall feeling better but he still have tenderness in the abdomen. The troponin is mildly elevated. The CT scan as described above. He is unstable requiring small dose of norepinephrine. He is in process of having an echocardiogram with Doppler later on today. Currently is not experiencing any symptoms of chest pain or chest discomfort. He did have an episode of SVT last night and currently is on amiodarone. I am going to add small dose of metoprolol to 12.5 mg p.o. twice daily to the current medical regimen we will hold heparin in the light of possible GI bleeding. The examination is remarkable for regular rhythm with soft systolic murmur and clear breathing sounds bilaterally and tender abdomen with no edema was noted Assessment Abdominal discomfort which has somewhat improved Tenderness in the abdomen. Acute surgical abdomen has been ruled out Coronary artery disease Evidence of myocardial injury Multiple comorbid conditions Plan Continue holding heparin at this point Continue amiodarone Add small dose of beta-agnes to the current medical regimen Follow-up on the echocardiogram Further recommendation to follow the echocardiogram Objective - Vital Signs Vital signs: Vital Signs Temp 98.4 F 09/07/23 04:00 Pulse 104 H 09/07/23 07:00 Resp 20 09/07/23 07:00 BP 114/68 09/07/23 07:00 Pulse Ox 100 09/07/23 07:00 FiO2 Intake & Output 09/06/23 09/07/23 09/07/23 18:59 06:59 18:59 Intake Total 2222.318 2156.703 130 Output Total 810 2640 65 Balance 1412.318 -483.297 65 Weight 66.224 kg Intake: IV 2184 1505 130 Cefepime 2 gm In Sodium 25 75 Chloride 0.9% 100 ml @ 25 mls/hr IVPB Q8HR [facility] Rx# :[id number] Sodium Chloride 0.9% 1, 910 1430 130 000 ml @ 130 mls/hr IV . Q7H42M [facility] Rx#:[id number] Sodium Chloride 0.9% 1, 999 000 ml @ 999 mls/hr IV . Q1H1M [facility] Rx#:[id number] Vancomycin 1,250 mg In 250 Sodium Chloride 0.9% 250 ml @ 125 mls/hr IVPB ONCE [facility] Rx#:[id number] Intake, IV Titration 38.318 121.703 Amount Heparin Sod,Pork in 0.45% 55.894 NaCl 25,000 unit In 0.45 % NaCl 1 250ml.bag @ 12 UNITS/KG/HR 7.947 mls/hr IV .Q24H [facility] Rx#: [id number] Norepinephrine 32 mg In 21.539 65.809 Sodium Chloride 0.9% 218 ml @ 0.03 MCG/KG/MIN 0. 931 mls/hr IV .Q24H [facility] Rx#:[id number] Norepinephrine 4 mg In 16.779 Sodium Chloride 0.9% 250 ml @ 0.03 MCG/KG/MIN 7. 569 mls/hr IV .Q24H [facility] Rx#:[id number] Oral 400 Lipid 130 Sodium Chloride 0.9% 1, 130 000 ml @ 130 mls/hr IV . Q7H42M [facility] Rx#:[id number] Output: Urine 810 2595 65 Stool 25 Emesis 20 Other: Voiding Method Indwelling Catheter Indwelling Catheter # Bowel Movements 1 1 - Labs CBC & Chem 7: 09/07/23 05:35 09/07/23 05:35 Labs: Abnormal Lab Results - Last 24 Hours (Table) 09/06/23 09/06/23 09/06/23 Range/Units 08:47 08:47 11:39 WBC 17.6 H (3.8-10.6) k/uL RBC (4.30-5.90) m/uL Hgb 12.7 L (13.0-17.5) gm/dL Hct (39.0-53.0) % MCHC 30.6 L (31.0-37.0) g/dL RDW 18.9 H (11.5-15.5) % Neutrophils # 15.0 H (1.3-7.7) k/uL Lymphocytes # (1.0-4.8) k/uL APTT (22.0-30.0) sec VBG pH (7.31-7.41) VBG HCO3 (24-28) mmol/L Sodium 128 L (137-145) mmol/L Potassium (3.5-5.1) mmol/L Chloride 97 L (98-107) mmol/L Carbon Dioxide 14 L (22-30) mmol/L BUN 36 H (9-20) mg/dL Creatinine 1.34 H (0.66-1.25) mg/dL Glucose 165 H (74-99) mg/dL POC Glucose (mg/dL) (70-110) mg/dL Plasma Lactic Acid Eugene 2.7 H* (0.7-2.0) mmol/L Calcium 10.6 H (8.4-10.2) mg/dL Alkaline Phosphatase 152 H (38-126) U/L Troponin I (0.000-0.034) ng/mL Procalcitonin (0.02-0.09) ng/mL Urine Protein (Negative) Urine Glucose (UA) (Negative) Urine Blood (Negative) Urine Mucus (None) /hpf 09/06/23 09/06/23 09/06/23 Range/Units 11:39 11:48 13:15 WBC (3.8-10.6) k/uL RBC (4.30-5.90) m/uL Hgb (13.0-17.5) gm/dL Hct (39.0-53.0) % MCHC (31.0-37.0) g/dL RDW (11.5-15.5) % Neutrophils # (1.3-7.7) k/uL Lymphocytes # (1.0-4.8) k/uL APTT (22.0-30.0) sec VBG pH 7.20 L* (7.31-7.41) VBG HCO3 17 L (24-28) mmol/L Sodium (137-145) mmol/L Potassium (3.5-5.1) mmol/L Chloride (98-107) mmol/L Carbon Dioxide (22-30) mmol/L BUN (9-20) mg/dL Creatinine (0.66-1.25) mg/dL Glucose (74-99) mg/dL POC Glucose (mg/dL) 143 H (70-110) mg/dL Plasma Lactic Acid Eugene (0.7-2.0) mmol/L Calcium (8.4-10.2) mg/dL Alkaline Phosphatase (38-126) U/L Troponin I (0.000-0.034) ng/mL Procalcitonin (0.02-0.09) ng/mL Urine Protein Trace H (Negative) Urine Glucose (UA) 1+ H (Negative) Urine Blood Trace H (Negative) Urine Mucus Rare H (None) /hpf 09/06/23 09/06/23 09/06/23 Range/Units 14:17 14:17 15:49 WBC (3.8-10.6) k/uL RBC (4.30-5.90) m/uL Hgb (13.0-17.5) gm/dL Hct (39.0-53.0) % MCHC (31.0-37.0) g/dL RDW (11.5-15.5) % Neutrophils # (1.3-7.7) k/uL Lymphocytes # (1.0-4.8) k/uL APTT (22.0-30.0) sec VBG pH (7.31-7.41) VBG HCO3 (24-28) mmol/L Sodium (137-145) mmol/L Potassium (3.5-5.1) mmol/L Chloride (98-107) mmol/L Carbon Dioxide (22-30) mmol/L BUN (9-20) mg/dL Creatinine (0.66-1.25) mg/dL Glucose (74-99) mg/dL POC Glucose (mg/dL) (70-110) mg/dL Plasma Lactic Acid Eugene (0.7-2.0) mmol/L Calcium (8.4-10.2) mg/dL Alkaline Phosphatase (38-126) U/L Troponin I 0.117 H* 0.100 H* (0.000-0.034) ng/mL Procalcitonin 7.87 H (0.02-0.09) ng/mL Urine Protein (Negative) Urine Glucose (UA) (Negative) Urine Blood (Negative) Urine Mucus (None) /hpf 09/06/23 09/06/23 09/07/23 Range/Units 15:49 21:45 01:06 WBC (3.8-10.6) k/uL RBC (4.30-5.90) m/uL Hgb (13.0-17.5) gm/dL Hct (39.0-53.0) % MCHC (31.0-37.0) g/dL RDW (11.5-15.5) % Neutrophils # (1.3-7.7) k/uL Lymphocytes # (1.0-4.8) k/uL APTT 50.7 H (22.0-30.0) sec VBG pH (7.31-7.41) VBG HCO3 (24-28) mmol/L Sodium 128 L 131 L (137-145) mmol/L Potassium 5.5 H (3.5-5.1) mmol/L Chloride (98-107) mmol/L Carbon Dioxide 16 L 18 L (22-30) mmol/L BUN 38 H 34 H (9-20) mg/dL Creatinine 1.41 H (0.66-1.25) mg/dL Glucose 134 H 105 H (74-99) mg/dL POC Glucose (mg/dL) (70-110) mg/dL Plasma Lactic Acid Eugene (0.7-2.0) mmol/L Calcium (8.4-10.2) mg/dL Alkaline Phosphatase (38-126) U/L Troponin I (0.000-0.034) ng/mL Procalcitonin (0.02-0.09) ng/mL Urine Protein (Negative) Urine Glucose (UA) (Negative) Urine Blood (Negative) Urine Mucus (None) /hpf 09/07/23 09/07/23 09/07/23 Range/Units 05:35 05:35 05:35 WBC 19.1 H (3.8-10.6) k/uL RBC 3.78 L (4.30-5.90) m/uL Hgb 10.3 L (13.0-17.5) gm/dL Hct 34.1 L (39.0-53.0) % MCHC 30.2 L (31.0-37.0) g/dL RDW 18.8 H (11.5-15.5) % Neutrophils # 18.0 H (1.3-7.7) k/uL Lymphocytes # 0.4 L (1.0-4.8) k/uL APTT (22.0-30.0) sec VBG pH (7.31-7.41) VBG HCO3 (24-28) mmol/L Sodium 133 L (137-145) mmol/L Potassium (3.5-5.1) mmol/L Chloride (98-107) mmol/L Carbon Dioxide 20 L (22-30) mmol/L BUN 24 H (9-20) mg/dL Creatinine (0.66-1.25) mg/dL Glucose (74-99) mg/dL POC Glucose (mg/dL) (70-110) mg/dL Plasma Lactic Acid Eugene (0.7-2.0) mmol/L Calcium (8.4-10.2) mg/dL Alkaline Phosphatase (38-126) U/L Troponin I 0.062 H* (0.000-0.034) ng/mL Procalcitonin (0.02-0.09) ng/mL Urine Protein (Negative) Urine Glucose (UA) (Negative) Urine Blood (Negative) Urine Mucus (None) /hpf
[2023-09-07] MEDS: AMIODARONE 200 MG TAB PO SCH (08:52)
[2023-09-07] MEDS: VANCOMYCIN 1,250 MG in SODIUM CHLORIDE 0.9% 250 ML IVPB SCH ×2 (08:52→20:01)
[2023-09-07] MEDS: ASPIRIN 81 MG PO SCH (08:53)
[2023-09-07] MEDS: METOPROLOL TARTRATE 12.5 MG TAB PO SCH (08:53)
[2023-09-07] MEDS ORDERED: ENOXAPARIN 40 MG/0.4 ML SYRINGE SQ SCH (09:00)
[2023-09-07] MEDS ORDERED: LEVOFLOXACIN 750MG-D5W PMX 750 MG in DEXTROSE/WATER 1 150ML.BAG IVPB SCH (10:00)
--- NOTE | 2023-09-07 10:17 | P.PN ---
Subjective Progress Note Date: 09/07/23 This is a 62-year-old male patient with a known history of squamous cell lung cancer and left midlung mass. He also has chronic obstructive pulmonary disease chronic tobacco dependence, hypertension, hyperlipidemia, coronary artery disease with previous stent placement, ischemic cardiomyopathy. He was seen here last in May 2023 for suspected lung infection he had cavitary lesion in the right upper lobe and left lower lobe consolidation. Both of those areas were washed during bronchoscopy and sent to the lab. No malignancy was noted. He is currently undergoing radiation treatments and had 3 out of 10 scheduled but ended up back here in the hospital again. Had developed ongoing issues with increasing shortness of breath, cough congestion nausea vomiting diarrhea. He nearly fell at home from weakness. Chest x-ray revealed consolidative process in the left lower lobe again noted compared to previous on 08/28/2023. Additional irregular density in the right suprahilar region. Was also having chest pain and palpitations. A CT scan revealed no evidence for thoracic or abdominal aortic aneurysm or dissection. There was again noted enlarging cavitary mass of the right upper lobe medially. Progressive consolidation of the left lower lobe with less cavitation. Progressive adenopathy. Left hilar mass difficult to exclude. White count 17.6. Hemoglobin 12.7. Platelets 446. INR 1.0. Sodium 128. Potassium 5.0. Bicarb 14. BUN 36. Creatinine 1.34. Glucose 165. Lactic acid 2.7. Troponin negative x 1. Lipase 111. Is been initiated on Levaquin. He was found to be quite hypotensive. He has received 3-1/2 L of fluid. He is initiated on norepinephrine at 0.2 g/kg/min. He has normal saline at 130 MLS per hour. He is seen today in consultation in the intensive care unit. He is awake and alert in no acute distress. He is maintaining O2 saturations in the mid 90s on 3 L/min per nasal cannula. He afebrile. He remains tachycardic. The patient is seen today September 07, 2023 in follow-up in the intensive care unit. He is awake and alert in no acute distress. He is maintaining O2 saturations in the 90s on 3 L/min per nasal cannula. He has normal saline at 130 MLS per hour. He remains on norepinephrine at 3 mcg/min. He did have stool for occult blood positive. His heparin drip was placed on hold. His procalcitonin was 7.87. He is currently on vancomycin and cefepime. Blood and sputum cultures pending. White count 19.1. Hemoglobin 10.3. Platelets 404. INR 1.1. Sodium 133. Potassium 4.7. Bicarb 20. BUN 24. Creatinine 1.05. Glucose 93. Tropo nadir 0.062. Cortisol level is pending. Chest x-ray continues to reveal left lower lobe consolidation as well as right suprahilar opacity. Objective - Vital Signs Vital signs: Vital Signs Temp 98.4 F 09/07/23 08:00 Pulse 92 09/07/23 09:45 Resp 21 09/07/23 09:45 BP 100/59 09/07/23 09:45 Pulse Ox 100 09/07/23 09:45 FiO2 Intake & Output 09/06/23 09/07/23 09/07/23 18:59 06:59 18:59 Intake Total 2222.318 2156.703 172.667 Output Total 810 2640 65 Balance 1412.318 -483.297 107.667 Weight 66.224 kg Intake: IV 2184 1505 130 Cefepime 2 gm In Sodium 25 75 Chloride 0.9% 100 ml @ 25 mls/hr IVPB Q8HR [facility] Rx# :[id number] Sodium Chloride 0.9% 1, 910 1430 130 000 ml @ 130 mls/hr IV . Q7H42M [facility] Rx#:[id number] Sodium Chloride 0.9% 1, 999 000 ml @ 999 mls/hr IV . Q1H1M [facility] Rx#:[id number] Vancomycin 1,250 mg In 250 Sodium Chloride 0.9% 250 ml @ 125 mls/hr IVPB [facility] Rx#:[id number] Intake, IV Titration 38.318 121.703 42.667 Amount Heparin Sod,Pork in 0.45% 55.894 40.132 NaCl 25,000 unit In 0.45 % NaCl 1 250ml.bag @ 12 UNITS/KG/HR 7.947 mls/hr IV .Q24H [facility] Rx#: [id number] Norepinephrine 32 mg In 21.539 65.809 2.535 Sodium Chloride 0.9% 218 ml @ 0.03 MCG/KG/MIN 0. 931 mls/hr IV .Q24H [facility] Rx#:[id number] Norepinephrine 4 mg In 16.779 Sodium Chloride 0.9% 250 ml @ 0.03 MCG/KG/MIN 7. 569 mls/hr IV .Q24H [facility] Rx#:[id number] Oral 400 Lipid 130 Sodium Chloride 0.9% 1, 130 000 ml @ 130 mls/hr IV . Q7H42M [facility] Rx#:[id number] Output: Urine 810 2595 65 Stool 25 Emesis 20 Other: Voiding Method Indwelling Catheter Indwelling Catheter # Bowel Movements 1 1 - Exam GENERAL EXAM: Alert, weak, thin 62-year-old male, on 3 L nasal cannula, comfor table in no apparent distress. HEAD: Normocephalic. EYES: Normal reaction of pupils, equal size. NOSE: Clear with pink turbinates. THROAT: No erythema or exudates. NECK: No masses, no JVD. CHEST: No chest wall deformity. LUNGS: Equal air entry with bilateral scattered rhonchi. CVS: S1 and S2 normal with no audible murmur, regular rhythm. Tachycardic ABDOMEN: No hepatosplenomegaly, normal bowel sounds, no guarding or rigidity. SPINE: No scoliosis or deformity SKIN: No rashes CENTRAL NERVOUS SYSTEM: No focal deficits, tone is normal in all 4 extremities. EXTREMITIES: There is no peripheral edema. No clubbing, no cyanosis. Peripheral pulses are intact. - Labs CBC & Chem 7: 09/07/23 05:35 09/07/23 05:35 Labs: Abnormal Lab Results - Last 24 Hours (Table) 09/06/23 09/06/23 09/06/23 Range/Units 11:39 11:39 11:48 WBC (3.8-10.6) k/uL RBC (4.30-5.90) m/uL Hgb (13.0-17.5) gm/dL Hct (39.0-53.0) % MCHC (31.0-37.0) g/dL RDW (11.5-15.5) % Neutrophils # (1.3-7.7) k/uL Lymphocytes # (1.0-4.8) k/uL APTT (22.0-30.0) sec VBG pH 7.20 L* (7.31-7.41) VBG HCO3 17 L (24-28) mmol/L Sodium (137-145) mmol/L Potassium (3.5-5.1) mmol/L Carbon Dioxide (22-30) mmol/L BUN (9-20) mg/dL Creatinine (0.66-1.25) mg/dL Glucose (74-99) mg/dL POC Glucose (mg/dL) 143 H (70-110) mg/dL Plasma Lactic Acid Eugene 2.7 H* (0.7-2.0) mmol/L Troponin I (0.000-0.034) ng/mL Procalcitonin (0.02-0.09) ng/mL Urine Protein (Negative) Urine Glucose (UA) (Negative) Urine Blood (Negative) Urine Mucus (None) /hpf 09/06/23 09/06/23 09/06/23 Range/Units 13:15 14:17 14:17 WBC (3.8-10.6) k/uL RBC (4.30-5.90) m/uL Hgb (13.0-17.5) gm/dL Hct (39.0-53.0) % MCHC (31.0-37.0) g/dL RDW (11.5-15.5) % Neutrophils # (1.3-7.7) k/uL Lymphocytes # (1.0-4.8) k/uL APTT (22.0-30.0) sec VBG pH (7.31-7.41) VBG HCO3 (24-28) mmol/L Sodium (137-145) mmol/L Potassium (3.5-5.1) mmol/L Carbon Dioxide (22-30) mmol/L BUN (9-20) mg/dL Creatinine (0.66-1.25) mg/dL Glucose (74-99) mg/dL POC Glucose (mg/dL) (70-110) mg/dL Plasma Lactic Acid Eugene (0.7-2.0) mmol/L Troponin I 0.117 H* (0.000-0.034) ng/mL Procalcitonin 7.87 H (0.02-0.09) ng/mL Urine Protein Trace H (Negative) Urine Glucose (UA) 1+ H (Negative) Urine Blood Trace H (Negative) Urine Mucus Rare H (None) /hpf 09/06/23 09/06/23 09/06/23 Range/Units 15:49 15:49 21:45 WBC (3.8-10.6) k/uL RBC (4.30-5.90) m/uL Hgb (13.0-17.5) gm/dL Hct (39.0-53.0) % MCHC (31.0-37.0) g/dL RDW (11.5-15.5) % Neutrophils # (1.3-7.7) k/uL Lymphocytes # (1.0-4.8) k/uL APTT (22.0-30.0) sec VBG pH (7.31-7.41) VBG HCO3 (24-28) mmol/L Sodium 128 L 131 L (137-145) mmol/L Potassium 5.5 H (3.5-5.1) mmol/L Carbon Dioxide 16 L 18 L (22-30) mmol/L BUN 38 H 34 H (9-20) mg/dL Creatinine 1.41 H (0.66-1.25) mg/dL Glucose 134 H 105 H (74-99) mg/dL POC Glucose (mg/dL) (70-110) mg/dL Plasma Lactic Acid Eugene (0.7-2.0) mmol/L Troponin I 0.100 H* (0.000-0.034) ng/mL Procalcitonin (0.02-0.09) ng/mL Urine Protein (Negative) Urine Glucose (UA) (Negative) Urine Blood (Negative) Urine Mucus (None) /hpf 09/07/23 09/07/23 09/07/23 Range/Units 01:06 05:35 05:35 WBC 19.1 H (3.8-10.6) k/uL RBC 3.78 L (4.30-5.90) m/uL Hgb 10.3 L (13.0-17.5) gm/dL Hct 34.1 L (39.0-53.0) % MCHC 30.2 L (31.0-37.0) g/dL RDW 18.8 H (11.5-15.5) % Neutrophils # 18.0 H (1.3-7.7) k/uL Lymphocytes # 0.4 L (1.0-4.8) k/uL APTT 50.7 H (22.0-30.0) sec VBG pH (7.31-7.41) VBG HCO3 (24-28) mmol/L Sodium (137-145) mmol/L Potassium (3.5-5.1) mmol/L Carbon Dioxide (22-30) mmol/L BUN (9-20) mg/dL Creatinine (0.66-1.25) mg/dL Glucose (74-99) mg/dL POC Glucose (mg/dL) (70-110) mg/dL Plasma Lactic Acid Eugene (0.7-2.0) mmol/L Troponin I 0.062 H* (0.000-0.034) ng/mL Procalcitonin (0.02-0.09) ng/mL Urine Protein (Negative) Urine Glucose (UA) (Negative) Urine Blood (Negative) Urine Mucus (None) /hpf 09/07/23 Range/Units 05:35 WBC (3.8-10.6) k/uL RBC (4.30-5.90) m/uL Hgb (13.0-17.5) gm/dL Hct (39.0-53.0) % MCHC (31.0-37.0) g/dL RDW (11.5-15.5) % Neutrophils # (1.3-7.7) k/uL Lymphocytes # (1.0-4.8) k/uL APTT (22.0-30.0) sec VBG pH (7.31-7.41) VBG HCO3 (24-28) mmol/L Sodium 133 L (137-145) mmol/L Potassium (3.5-5.1) mmol/L Carbon Dioxide 20 L (22-30) mmol/L BUN 24 H (9-20) mg/dL Creatinine (0.66-1.25) mg/dL Glucose (74-99) mg/dL POC Glucose (mg/dL) (70-110) mg/dL Plasma Lactic Acid Eugene (0.7-2.0) mmol/L Troponin I (0.000-0.034) ng/mL Procalcitonin (0.02-0.09) ng/mL Urine Protein (Negative) Urine Glucose (UA) (Negative) Urine Blood (Negative) Urine Mucus (None) /hpf Assessment and Plan Assessment: Generalized weakness secondary to nausea, vomiting, diarrhea Acetone positive, suspect starvation ketosis Hypotension secondary to above, currently on pressors Acute kidney injury secondary to dehydration Hyponatremia secondary to above, improving Hyperkalemia secondary to above, improved Leukocytosis Troponin leak GI bleed, stool for occult blood positive. Heparin drip on hold Metastatic squamous cell carcinoma, likely with disease progression. A CT scan today revealed no evidence for thoracic or abdominal aortic aneurysm or dissection. There was again noted enlarging cavitary mass of the right upper lobe medially. Progressive consolidation of the left lower lobe with less cavitation. Progressive adenopathy. Left hilar mass difficult to exclude. The patient had received 3 recent radiation treatments to complete 10. The patient has been in and out of the hospital and no consistent treatment lately. Bronchoscopy in May 2023 of the right upper lobe and left lower lobe washings revealed no evidence of malignancy Acute hypoxic respiratory failure secondary to above Chronic anemia, current hemoglobin 10.3 History of hypertension History of hyperlipidemia History of coronary artery disease with previous PCI/stent History of ischemic cardiomyopathy, most recent echocardiogram available from 08/27/2022 estimates an impaired left ventricular systolic ejection fraction of 35% Chronic obstructive pulmonary disease, stable Former tobacco dependance History of ocular herpes, on valacyclovir outpatient History of atrial fibrillation, was on amiodarone and Eliquis in the outpatient setting Plan: The patient was seen and evaluated Chest x-ray, labs and medications reviewed Vancomycin and cefepime per ID service Continue fluid resuscitation Titrate the norepinephrine as tolerated Stool for occult blood positive Heparin drip placed on hold We will continue to follow I have personally seen and examined the patient, performed the documentation and the assessment and plan as written. Number of minutes spent on the visit: 10.
--- NOTE | 2023-09-07 11:33 | CA ---
Transthoracic Echo Report Name: Fracisco Rene Age: 62 Gender: M : 1960 Exam Date: 09/07/2023 08:31 Exam Location: [place] [facility] Ht (in): 73 Wt (lb): 146 Ordering Physician: Lashanda Farmer Attending/Referring Phys: [id number], Marleny Pipeline Integrity Engineer Key Rajan RDCS Procedure CPT: Indications: eval LV function Cardiac Hx: Technical Quality: Technically difficult study Contrast 1: Definity Total Dose (mL): 2 Contrast 2: Total Dose (mL): MEASUREMENTS (Male / Female) Normal Values 2D ECHO LV Diastolic Diameter PLAX 5.3 cm 4.2 - 5.9 / 3.9 - 5.3 cm LV Systolic Diameter PLAX 3.9 cm IVS Diastolic Thickness 0.7 cm 0.6 - 1.0 / 0.6 - 0.9 cm LVPW Diastolic Thickness 0.8 cm 0.6 - 1.0 / 0.6 - 0.9 cm LV Relative Wall Thickness 0.3 LV Diastolic Volume MOD BP 125.1 cm??? 67 - 155 / 56 - 104 cm??? LV Systolic Volume MOD BP 48.9 cm??? 22 - 58 / 19 - 49 cm??? LV Ejection Fraction MOD BP 60.9 % >= 55 % LV Cardiac Index MOD BP 4072.0 cm???/min???m??? LV Diastolic Volume MOD 4C 119.8 cm??? LV Systolic Volume MOD 4C 50.8 cm??? LV Ejection Fraction MOD 4C 57.6 % LV Cardiac Index MOD 4C 3684.6 cm???/min???m??? LV Diastolic Length 4C 8.6 cm LV Systolic Length 4C 7.5 cm LV Diastolic Volume MOD 2C 124.3 cm??? LV Systolic Volume MOD 2C 44.3 cm??? LV Ejection Fraction MOD 2C 64.4 % LV Cardiac Index MOD 2C 4279.1 cm???/min???m??? LV Diastolic Length 2C 9.0 cm LV Systolic Length 2C 7.0 cm FINDINGS Left Ventricle Left ventricular ejection fraction is estimated at 55-60 %. Left ventricular cavity size normal. Left ventricular wall thickness normal. No obvious regional wall motion abnormalities. Right Ventricle Right ventricle not well visualized. Right Atrium Normal right atrial size. Left Atrium Normal left atrial size. Mitral Valve Structurally normal mitral valve. Aortic Valve Trileaflet aortic valve. Tricuspid Valve Structurally normal tricuspid valve. Pulmonic Valve Structurally normal pulmonic valve. Pericardium No pericardial effusion. Aorta Aortic root and proximal ascending aorta not well visualized. CONCLUSIONS Normal LV function Previewed by: Dr. Teja Roe MD (Electronically Signed) Final Date: 07 September 2023 11:32
[2023-09-07 14:04] VITALS: BMI 19.2
[2023-09-07] MEDS: NOREPINEPHRINE 32 MG in SODIUM CHLORIDE 0.9% 218 ML IV SCH (18:12)
[2023-09-08 06:56] LABS: Anisocytosis Slight; HCT 29.2 % (39.0-53.0); HGB 9.3 gm/dL (13.0-17.5); Hypochromasia Marked; MCH 28.4 pg (25.0-35.0); MCHC 31.7 g/dL (31.0-37.0); MCV 89.7 fL (80.0-100.0); Mean Platelet Volume 7.6; Platelet Count 322 k/uL (150-450); RBC 3.26 m/uL (4.30-5.90); WBC 10.5 k/uL (3.8-10.6)
[2023-09-08 07:13] LABS: African American GFR (CKD) >90 (>60 ml/min/1.73 sqM); Anion Gap 4 mmol/L; Blood Urea Nitrogen 11 mg/dL (9-20); Calcium 9.3 mg/dL (8.4-10.2); Carbon Dioxide 22 mmol/L (22-30); Chloride 106 mmol/L (98-107); Glucose 74 mg/dL (74-99); Non-African American GFR(CKD) >90 (>60 ml/min/1.73 sqM); Potassium 4.4 mmol/L (3.5-5.1); Sodium 132 mmol/L (137-145)
--- NOTE | 2023-09-08 08:04 | P.PN ---
Subjective Progress Note Date: 09/08/23 This is a 62-year-old gentleman with a past medical history significant for CAD as well as hypertension and dyslipidemia and history of lung cancer who was admitted to the hospital with abdominal discomfort. He was found to have mildly elevated troponin. On examination he did have a rigid abdomen/surgical abdomen but CT scan of the abdomen and pelvis and chest did not show any acute abnormalities. September 07, 2023 The patient was seen and evaluated this morning. He is overall feeling better but he still have tenderness in the abdomen. The troponin is mildly elevated. The CT scan as described above. He is unstable requiring small dose of norepinephrine. He is in process of having an echocardiogram with Doppler later on today. Currently is not experiencing any symptoms of chest pain or chest discomfort. He did have an episode of SVT last night and currently is on amiodarone. I am going to add small dose of metoprolol to 12.5 mg p.o. twice daily to the current medical regimen we will hold heparin in the light of possible GI bleeding. The examination is remarkable for regular rhythm with soft systolic murmur and clear breathing sounds bilaterally and tender abdomen with no edema was noted September 08, 2023 The patient was seen and evaluated this morning. He is asymptomatic from a ca rdiovascular standpoint of view and he is hemodynamically stable. He is in sinus mechanism with no more episode of SVT noted. The echo showed normal LV systolic function with no evidence of wall motion abnormalities. From the cardiac standpoint of view I will continue the current medical regimen. No need for any invasive workup at this point. Examination is remarkable for regular rhythm with a soft systolic murmur and clear breathing sounds bilaterally and no edema was noted Assessment Abdominal discomfort which has somewhat improved Tenderness in the abdomen. Acute surgical abdomen has been ruled out Coronary artery disease Evidence of myocardial injury Multiple comorbid conditions Plan Continue holding heparin at this point Continue the current dose of amiodarone and metoprolol Follow-up with the patient Objective - Vital Signs Vital signs: Vital Signs Temp 97.6 F 09/08/23 04:00 Pulse 78 09/08/23 07:00 Resp 20 09/08/23 07:00 BP 106/66 09/08/23 07:00 Pulse Ox 100 09/08/23 07:00 FiO2 Intake & Output 09/07/23 09/08/23 09/08/23 18:59 06:59 18:59 Intake Total 2500.921 1915.613 Output Total 1165 1210 150 Balance 1335.921 705.613 -150 Weight 66.224 kg Intake: IV 2009 1909 Cefepime 2 gm In Sodium 200 100 Chloride 0.9% 100 ml @ 25 mls/hr IVPB Q8HR [facility] Rx# :[id number] Sodium Chloride 0.9% 1, 1560 1560 000 ml @ 130 mls/hr IV . Q7H42M [facility] Rx#:[id number] Vancomycin 1,250 mg In 250 Sodium Chloride 0.9% 250 ml @ 125 mls/hr IVPB [facility]CE [facility] Rx#:[id number] Vancomycin 1,250 mg In 250 Sodium Chloride 0.9% 250 ml @ 125 mls/hr IVPB Q12H [facility] Rx#:[id number] Intake, IV Titration 46.921 5.613 Amount Heparin Sod,Pork in 0.45% 40.132 NaCl 25,000 unit In 0.45 % NaCl 1 250ml.bag @ 12 UNITS/KG/HR 7.947 mls/hr IV .Q24H [facility] Rx#: [id number] Norepinephrine 32 mg In 6.789 Sodium Chloride 0.9% 218 ml @ 0.03 MCG/KG/MIN 0. 931 mls/hr IV .Q24H [facility] Rx#:[id number] Norepinephrine 32 mg In 5.613 Sodium Chloride 0.9% 218 ml @ 0.03 MCG/KG/MIN 0. 931 mls/hr IV .Q24H [facility] Rx#:[id number] Oral 444 Output: Urine 1165 1210 150 Other: Voiding Method Indwelling Catheter Indwelling Catheter # Bowel Movements 1 - Labs CBC & Chem 7: 09/08/23 05:41 09/08/23 05:41 Labs: Abnormal Lab Results - Last 24 Hours (Table) 09/07/23 09/08/23 09/08/23 Range/Units 05:35 05:41 05:41 RBC 3.26 L (4.30-5.90) m/uL Hgb 9.3 L (13.0-17.5) gm/dL Hct 29.2 L (39.0-53.0) % RDW 19.0 H (11.5-15.5) % Sodium 132 L (137-145) mmol/L Cortisol 24.8 H (3.1-22.4) UG/DL Microbiology - Last 24 Hours (Table) 09/06/23 09:35 Blood Culture - Preliminary Blood 09/06/23 09:50 Blood Culture - Preliminary Blood 09/06/23 22:53 Gram Stain - Preliminary Sputum
[2023-09-08 08:27] LABS: Lymphocytes # (M) 0.53 k/uL (1.0-4.8); Monocytes # (M) 0.42 k/uL (0-1.0); Neutrophils # (M) 9.56 k/uL (1.3-7.7); Neutrophils % (M) 91 %; Nucleated Red Blood Cells 0 /100 WBC (0-0); Total Cells Counted 100
[2023-09-08 08:28] LABS: Large Platelets Present
[2023-09-08] MEDS: ENOXAPARIN 40 MG/0.4 ML SYRINGE SQ SCH (08:52)
[2023-09-08] MEDS: IPRATROPIUM-ALBUTEROL 3 ML NEB INHALATION SCH (11:24)
--- NOTE | 2023-09-08 11:30 | P.PN ---
Subjective Progress Note Date: 09/08/23 62 year old M with PMH of lung CA with history of lung abscess, COPD with intermittent home O2, CAD with stents, h/o SVT, HTN, HLD, CHF with previous EF 35-40% presents to the ED for multiple complaints. He reports waking up this morning with a coughing fit. He reports chest pain, stabbing in nature, mid- sternal, worse with deep inspiration that started with the coughing fit. Chest pain is associated with palpitations. When he went to the washroom his legs gave out. He reports feeling nauseated with chronic epigastric pain since initiating chemotherapy. He reports not eating or drinking much for the past week. He complaints of a lump in his throat. He also reports positional lightheadedness. He feels short of breath with ambulation since starting chemotherapy and radiation. His last radiation treatment was yesterday with Dr. Shearer. Chemotherapy has been put on hold for the past few months by Dr. Hoyos while he recovered from his known lung abscess. He denies any headache, lower extremity edema, fever or chills, changes in urination or bowel habits. In the ED he underwent extensive evaluation. BP 67/47 HR 133, T 99.2F, with periods of desaturation into the 80s while on 2L NC. CBC, Coag panel, CMP significant for WBC 17.6, Hg 12.7, Na 128, Cl 97, bicarb 14, BUN 36, Cr 1.34, glu 165, Ca 10.6, alk phos 152. Lactic acid 2.7. Troponin < 0.012. Lipase 111. EKG sinus tachycardia with PVCs. CT thorax enlarging cavitary mass right upper lobe medially, progressive left lower lobe with less cavitation and progressive adenopathy. He was given a dose of Levaquin and NS bolus and admitted to ICU for need for pressors. Patient was given 3.5L NS bolus and started on maintenance fluids along with norepinephrine drip and admitted to ICU. Initially started on Levaquin for treatment of lung abscess, ID consulted, antibiotics switched to Vancomycin and Cefepime. Troponins trending < 0.012, 0.1, 0.062 thus Eliquis discontinued and patient started on Heparin drip. Stool occult came back positive and heparin drip was put on hold. Levophed was weaned off 09/07. 09/07 Patient was seen and examined. Sharp stabbing chest pain with cough. CBC RBC 3.26, Hg 9.3, Hct 29.2. BMP Na 132. RSV/Flu/COVID negative. Antibiotics include Vancomycin (D3) and Cefepime (D3). Heparin drip put on hold. Levophed weaned off early this morning. Echo shows EF 55-60%. BCx negative so far. Sputum Cx no PMN with rare G+ cocci and G- bacilli. General: Non toxic, mild distress, cachectic Derm: Warm, dry Head: Atraumatic, normocephalic, symmetric Eyes: EOMI, no lid lag, anicteric sclera Mouth: No lip lesion, mucus membranes moist Cardiovascular: S1S2 reg, no murmur Lungs: Decreased BS bilateral, no rhonchi, no rales, no accessory muscle use Abdominal: Soft, TTP in all 4 quadrants worse in the epigastric region without rebound, no guarding, no appreciable organomegaly Ext: No gross muscle atrophy, no edema, no contractures Neuro: no focal neuro deficits Psych: Alert, oriented, appropriate affect Based on my assessment of this patient, this patient meets a high complexity level of care. Sepsis likely due to lung abscess: Shock resolved. Status post 3.5L NS bolus in the ED and ICU. Continue NS at 130 cc/hr. CT with findings of lung abscess. Levaquin switched to Vancomycin dosed per pharmacy and Cefepime 2g IV TID (D3). Holding Lisinopril and Aldactone. Pro-rafita elevated. Legionella Ag negative. UA negative nitrite or LE. COVID/RSV/Flu negative. Echo unrevealing. Sputum Cx, BCx pending. Telemetry monitoring. Tylenol 650 mg PO Q6H PRN for fever. ID and Pulmonary on board. Acute hypoxic respiratory failure likely due to above History of SVT: Amiodarone 200 mg PO QD. Metoprolol as below. NSTEMI: Likely Type 2. Pleuritic. Likely related to lung abscess. Troponin < 0.012, 0.1, 0.062. Echo as above. Heparin drip put on hold. ASA 81 mg PO QD and Lipitor 80 mg PO QHS. Metoprolol 12.5 mg PO BID. Cardiology on board. Epigastric pain with + stool occult: With nausea and vomiting. Possible gastritis. No abnormalities in the abdomen/pelvis seen on thorax CT. Protonix 40 mg IV QD. Resolved: Lactic acidosis, High anion gap metabolic acidosis, shock, HypoNa, NEETA CODE STATUS: FULL CODE DVT Prophylaxis: Lovenox SQ GI Prophylaxis: Protonix IV Designated medical POA if patient is not able to make medical decisions for themselves: I have reviewed the following net developer consultant notes: Cardiology note. I have reviewed the results of the following tests: CBC, BMP, COVID/RSV/Flu, Echo, Prelim Sputum and BCx. I have ordered the following tests: CBC and BMP tomorrow to trend leukocytosis and renal function while on Vancomycin. Sputum and BCx pending. I have discussed the care of this patient with the following independent historian: I have independently interpreted the following test below: I have discussed the management of this patient with the following physician: Objective - Vital Signs Vital signs: Vital Signs Temp 97.6 F 09/08/23 04:00 Pulse 78 09/08/23 07:00 Resp 20 09/08/23 07:00 BP 106/66 09/08/23 07:00 Pulse Ox 100 09/08/23 07:00 FiO2 Intake & Output 09/07/23 09/08/23 09/08/23 18:59 06:59 18:59 Intake Total 2500.921 1915.613 Output Total 1165 1210 150 Balance 1335.921 705.613 -150 Weight 66.224 kg Intake: IV 2009 1909 Cefepime 2 gm In Sodium 200 100 Chloride 0.9% 100 ml @ 25 mls/hr IVPB Q8HR [facility] Rx# :[id number] Sodium Chloride 0.9% 1, 1560 1560 000 ml @ 130 mls/hr IV . Q7H42M [facility] Rx#:[id number] Vancomycin 1,250 mg In 250 Sodium Chloride 0.9% 250 ml @ 125 mls/hr [facility] Rx#:[id number] Vancomycin 1,250 mg In 250 Sodium Chloride 0.9% 250 ml @ 125 mls/hr IVPB Q12H [facility] Rx#:[id number] Intake, IV Titration 46.921 5.613 Amount Heparin Sod,Pork in 0.45% 40.132 NaCl 25,000 unit In 0.45 % NaCl 1 250ml.bag @ 12 UNITS/KG/HR 7.947 mls/hr IV .Q24H [facility] Rx#: [id number] Norepinephrine 32 mg In 6.789 Sodium Chloride 0.9% 218 ml @ 0.03 MCG/KG/MIN 0. 931 mls/hr IV .Q24H [facility] Rx#:[id number] Norepinephrine 32 mg In 5.613 Sodium Chloride 0.9% 218 ml @ 0.03 MCG/KG/MIN 0. 931 mls/hr IV .Q24H [facility] Rx#:[id number] Oral 444 Output: Urine 1165 1210 150 Other: Voiding Method Indwelling Catheter Indwelling Catheter # Bowel Movements 1 - Labs CBC & Chem 7: 09/08/23 05:41 09/08/23 05:41 Labs: Abnormal Lab Results - Last 24 Hours (Table) 09/07/23 09/08/23 09/08/23 Range/Units 05:35 05:41 05:41 RBC 3.26 L (4.30-5.90) m/uL Hgb 9.3 L (13.0-17.5) gm/dL Hct 29.2 L (39.0-53.0) % RDW 19.0 H (11.5-15.5) % Sodium 132 L (137-145) mmol/L Cortisol 24.8 H (3.1-22.4) UG/DL Microbiology - Last 24 Hours (Table) 09/06/23 09:35 Blood Culture - Preliminary Blood 09/06/23 09:50 Blood Culture - Preliminary Blood 09/06/23 22:53 Gram Stain - Preliminary Sputum
[2023-09-08] MEDS ORDERED: KETOROLAC 15 MG/ML 1 ML VIAL IVP PRN (11:31)
[2023-09-08] MEDS: KETOROLAC 15 MG/ML 1 ML VIAL IVP STA (11:56)
[2023-09-08] MEDS: HYDROcodone/APAP 10-325MG 1 EACH TAB PO SCH (11:57)
[2023-09-08] MEDS: BENZONATATE 100 MG CAP PO SCH (12:05)
--- NOTE | 2023-09-08 12:05 | P.PN ---
Subjective Progress Note Date: 09/08/23 This is a 62-year-old male patient with a known history of squamous cell lung cancer and left midlung mass. He also has chronic obstructive pulmonary disease chronic tobacco dependence, hypertension, hyperlipidemia, coronary artery disease with previous stent placement, ischemic cardiomyopathy. He was seen here last in May 2023 for suspected lung infection he had cavitary lesion in the right upper lobe and left lower lobe consolidation. Both of those areas were washed during bronchoscopy and sent to the lab. No malignancy was noted. He is currently undergoing radiation treatments and had 3 out of 10 scheduled but ended up back here in the hospital again. Had developed ongoing issues with increasing shortness of breath, cough congestion nausea vomiting diarrhea. He nearly fell at home from weakness. Chest x-ray revealed consolidative process in the left lower lobe again noted compared to previous on 08/28/2023. Additional irregular density in the right suprahilar region. Was also having chest pain and palpitations. A CT scan revealed no evidence for thoracic or abdominal aortic aneurysm or dissection. There was again noted enlarging cavitary mass of the right upper lobe medially. Progressive consolidation of the left lower lobe with less cavitation. Progressive adenopathy. Left hilar mass difficult to exclude. White count 17.6. Hemoglobin 12.7. Platelets 446. INR 1.0. Sodium 128. Potassium 5.0. Bicarb 14. BUN 36. Creatinine 1.34. Glucose 165. Lactic acid 2.7. Troponin negative x 1. Lipase 111. Is been initiated on Levaquin. He was found to be quite hypotensive. He has received 3-1/2 L of fluid. He is initiated on norepinephrine at 0.2 g/kg/min. He has normal saline at 130 MLS per hour. He is seen today in consultation in the intensive care unit. He is awake and alert in no acute distress. He is maintaining O2 saturations in the mid 90s on 3 L/min per nasal cannula. He afebrile. He remains tachycardic. The patient is seen today September 07, 2023 in follow-up in the intensive care unit. He is awake and alert in no acute distress. He is maintaining O2 saturations in the 90s on 3 L/min per nasal cannula. He has normal saline at 130 MLS per hour. He remains on norepinephrine at 3 mcg/min. He did have stool for occult blood positive. His heparin drip was placed on hold. His procalcitonin was 7.87. He is currently on vancomycin and cefepime. Blood and sputum cultures pending. White count 19.1. Hemoglobin 10.3. Platelets 404. INR 1.1. Sodium 133. Potassium 4.7. Bicarb 20. BUN 24. Creatinine 1.05. Glucose 93. Tropo nadir 0.062. Cortisol level is pending. Chest x-ray continues to reveal left lower lobe consolidation as well as right suprahilar opacity. The patient is seen today September 08, 2023 in follow-up in the intensive care unit. He is awake and alert in no acute distress. He is maintaining O2 saturations in the 90s on 2 L/min per nasal cannula. He has normal saline at 120 MLS per hour. His norepinephrine has been off since 4 AM. Mean arterial pressure in the 70s currently. Blood cultures pending. Sputum culture pending. White count 10.5. Hemoglobin 9.3. Platelets 322. Sodium 132. Potassium 4.4. Bicarb 22. BUN 11. Creatinine 0.71. He remains on DuoNeb inhalations. Antibiotics in the form of vancomycin and cefepime. Lovenox for DVT prophylaxis. Objective - Vital Signs Vital signs: Vital Signs Temp 98 F 09/08/23 08:00 Pulse 73 09/08/23 11:00 Resp 28 H 09/08/23 11:00 BP 103/64 09/08/23 11:00 Pulse Ox 100 09/08/23 11:00 FiO2 Intake & Output 09/07/23 09/08/23 09/08/23 18:59 06:59 18:59 Intake Total 2500.921 1915.613 930 Output Total 1165 1210 725 Balance 1335.921 705.613 205 Weight 66.224 kg Intake: IV 2009 1909 830 Cefepime 2 gm In Sodium 200 100 100 Chloride 0.9% 100 ml @ 25 mls/hr IVPB Q8HR [facility] Rx# :[id number] Sodium Chloride 0.9% 1, 1560 1560 480 000 ml @ 130 mls/hr IV . Q7H42M [facility] Rx#:[id number] Vancomycin 1,250 mg In 250 Sodium Chloride 0.9% 250 ml @ 125 mls/hr IVPB ONCE [facility] Rx#:[id number] Vancomycin 1,250 mg In 250 250 Sodium Chloride 0.9% 250 ml @ 125 mls/hr IVPB Q12H [facility] Rx#:[id number] Intake, IV Titration 46.921 5.613 Amount Heparin Sod,Pork in 0.45% 40.132 NaCl 25,000 unit In 0.45 % NaCl 1 250ml.bag @ 12 UNITS/KG/HR 7.947 mls/hr IV .Q24H [facility] Rx#: [id number] Norepinephrine 32 mg In 6.789 Sodium Chloride 0.9% 218 ml @ 0.03 MCG/KG/MIN 0. 931 mls/hr IV .Q24H [facility] Rx#:[id number] Norepinephrine 32 mg In 5.613 Sodium Chloride 0.9% 218 ml @ 0.03 MCG/KG/MIN 0. 931 mls/hr IV .Q24H [facility] Rx#:[id number] Oral 444 100 Output: Gastric Drainage 200 Urine 1165 1210 525 Other: Voiding Method Indwelling Catheter Indwelling Catheter Indwelling Catheter # Bowel Movements 1 - Exam GENERAL EXAM: Awake, alert 62-year-old male, on 2 L nasal cannula, in no apparent distress. HEAD: Normocephalic. EYES: Normal reaction of pupils, equal size. NOSE: Clear with pink turbinates. THROAT: No erythema or exudates. NECK: No masses, no JVD. CHEST: No chest wall deformity. LUNGS: Equal air entry with bilateral scattered rhonchi. CVS: S1 and S2 normal with no audible murmur, regular rhythm. ABDOMEN: No hepatosplenomegaly, normal bowel sounds, no guarding or rigidity. SPINE: No scoliosis or deformity SKIN: No rashes CENTRAL NERVOUS SYSTEM: No focal deficits, tone is normal in all 4 extremities. EXTREMITIES: There is no peripheral edema. No clubbing, no cyanosis. Peripheral pulses are intact. - Labs CBC & Chem 7: 09/08/23 05:41 09/08/23 05:41 Labs: Abnormal Lab Results - Last 24 Hours (Table) 09/07/23 09/08/23 09/08/23 Range/Units 05:35 05:41 05:41 RBC 3.26 L (4.30-5.90) m/uL Hgb 9.3 L (13.0-17.5) gm/dL Hct 29.2 L (39.0-53.0) % RDW 19.0 H (11.5-15.5) % Neutrophils # (Manual) 9.56 H (1.3-7.7) k/uL Lymphocytes # (Manual) 0.53 L (1.0-4.8) k/uL Sodium 132 L (137-145) mmol/L Cortisol 24.8 H (3.1-22.4) UG/DL Microbiology - Last 24 Hours (Table) 09/06/23 22:53 Gram Stain - Preliminary Sputum Sputum Culture - Preliminary 09/06/23 09:35 Blood Culture - Preliminary Blood 09/06/23 09:50 Blood Culture - Preliminary Blood Assessment and Plan Assessment: Generalized weakness secondary to nausea, vomiting, diarrhea Acetone positive, suspect starvation ketosis Hypotension secondary to above, recovered and currently off pressors Acute kidney injury secondary to dehydration Hyponatremia secondary to above, improving Hyperkalemia secondary to above, improved Leukocytosis, improved Troponin leak GI bleed, stool for occult blood positive. Heparin drip on hold Metastatic squamous cell carcinoma, likely with disease progression. A CT scan today revealed no evidence for thoracic or abdominal aortic aneurysm or dissection. There was again noted enlarging cavitary mass of the right upper lobe medially. Progressive consolidation of the left lower lobe with less cavitation. Progressive adenopathy. Left hilar mass difficult to exclude. The patient had received 3 recent radiation treatments to complete 10. The patient has been in and out of the hospital and no consistent treatment lately. Bronchoscopy in May 2023 of the right upper lobe and left lower lobe washings revealed no evidence of malignancy Acute hypoxic respiratory failure secondary to above Chronic anemia, current hemoglobin 9.3 History of hypertension History of hyperlipidemia History of coronary artery disease with previous PCI/stent History of ischemic cardiomyopathy, most recent echocardiogram available from 08/27/2022 estimates an impaired left ventricular systolic ejection fraction of 35% though new echocardiogram from 09/07/2023 reveals a normal ejection fraction of 55 to 60%. Chronic obstructive pulmonary disease, stable Former tobacco dependance History of ocular herpes, on valacyclovir outpatient History of atrial fibrillation, was on amiodarone and Eliquis in the outpatient setting Plan: The patient was seen and evaluated Echocardiogram, labs and medications reviewed Vancomycin and cefepime per ID service Blood and sputum cultures pending Currently off pressors and stable Could transfer to the regular medical floor Titrate down the FiO2 as tolerated We will continue to follow I have personally seen and examined the patient, performed the documentation and the assessment and plan as written. Number of minutes spent on the visit: 10.
--- NOTE | 2023-09-08 13:45 | P.PN ---
Subjective Progress Note Date: 09/07/23 Principal diagnosis: Reason for follow-up is sepsis and pneumonia Patient is a 62-year-old male with a past medical history significant for coronary disease hypertension hyperlipidemia, squamous cell carcinoma of the left midline patient also have admission in May 2023 concerning for possible cavitating pneumonia abscess sputum was positive for MSSA patient now presented to hospital with increasing shortness of breath cough patient was noted to be septic possibly due to pneumonia CT did shows enlarging cavitary mass right upper lobe with immediately progressive consolidation left lower lobe prompting this consultation. On today's evaluation that is 09/07/2023, Patient is afebrile patient is currently on 3 L nasal cannula oxygen and mention breathing slightly comfortably, the patient denies any chest pain continue to have a cough and bring up some purulent sputum, the patient denies any nausea vomiting did not have any abdominal pain and no diarrhea Patient will count slightly up to 19.1, creatinine 1.05 Objective - Vital Signs Vital signs: Vital Signs Temp 98.4 F 09/07/23 08:00 Pulse 91 09/07/23 10:00 Resp 24 09/07/23 10:00 BP 111/53 09/07/23 10:00 Pulse Ox 100 09/07/23 10:00 FiO2 Intake & Output 09/06/23 09/07/23 09/07/23 18:59 06:59 18:59 Intake Total 2222.318 2156.703 1113.921 Output Total 810 2640 390 Balance 1412.318 -483.297 723.921 Weight 66.224 kg Intake: IV 2184 1505 845 Cefepime 2 gm In Sodium 25 75 75 Chloride 0.9% 100 ml @ 25 mls/hr IVPB Q8HR [facility] Rx# :[id number] Sodium Chloride 0.9% 1, 910 1430 520 000 ml @ 130 mls/hr IV . Q7H42M [facility] Rx#:[id number] Sodium Chloride 0.9% 1, 999 000 ml @ 999 mls/hr IV . Q1H1M [facility] Rx#:[id number] Vancomycin 1,250 mg In 250 250 Sodium Chloride 0.9% 250 ml @ 125 mls/hr IVPB ONCE [facility] Rx#:[id number] Intake, IV Titration 38.318 121.703 46.921 Amount Heparin Sod,Pork in 0.45% 55.894 40.132 NaCl 25,000 unit In 0.45 % NaCl 1 250ml.bag @ 12 UNITS/KG/HR 7.947 mls/hr IV .Q24H [facility] Rx#: [id number] Norepinephrine 32 mg In 21.539 65.809 6.789 Sodium Chloride 0.9% 218 ml @ 0.03 MCG/KG/MIN 0. 931 mls/hr IV .Q24H [facility] Rx#:[id number] Norepinephrine 4 mg In 16.779 Sodium Chloride 0.9% 250 ml @ 0.03 MCG/KG/MIN 7. 569 mls/hr IV .Q24H [facility] Rx#:[id number] Oral 400 222 Lipid 130 Sodium Chloride 0.9% 1, 130 000 ml @ 130 mls/hr IV . Q7H42M [facility] Rx#:[id number] Output: Urine 810 2595 390 Stool 25 Emesis 20 Other: Voiding Method Indwelling Catheter Indwelling Catheter # Bowel Movements 1 1 - Exam GENERAL DESCRIPTION: Middle-age male lying in bed in no distress RESPIRATORY SYSTEM: Unlabored breathing , coarse breath sounds occasional wheeze HEART: S1 S2 regular rate and rhythm , ABDOMEN: Soft , no tenderness EXTREMITIES: No edema feet - Labs CBC & Chem 7: 09/08/23 05:41 09/08/23 05:41 Labs: Abnormal Lab Results - Last 24 Hours (Table) 09/06/23 09/06/23 09/06/23 Range/Units 11:39 11:39 13:15 WBC (3.8-10.6) k/uL RBC (4.30-5.90) m/uL Hgb (13.0-17.5) gm/dL Hct (39.0-53.0) % MCHC (31.0-37.0) g/dL RDW (11.5-15.5) % Neutrophils # (1.3-7.7) k/uL Lymphocytes # (1.0-4.8) k/uL APTT (22.0-30.0) sec VBG pH 7.20 L* (7.31-7.41) VBG HCO3 17 L (24-28) mmol/L Sodium (137-145) mmol/L Potassium (3.5-5.1) mmol/L Carbon Dioxide (22-30) mmol/L BUN (9-20) mg/dL Creatinine (0.66-1.25) mg/dL Glucose (74-99) mg/dL Plasma Lactic Acid Eugene 2.7 H* (0.7-2.0) mmol/L Troponin I (0.000-0.034) ng/mL Procalcitonin (0.02-0.09) ng/mL Urine Protein Trace H (Negative) Urine Glucose (UA) 1+ H (Negative) Urine Blood Trace H (Negative) Urine Mucus Rare H (None) /hpf 09/06/23 09/06/23 09/06/23 Range/Units 14:17 14:17 15:49 WBC (3.8-10.6) k/uL RBC (4.30-5.90) m/uL Hgb (13.0-17.5) gm/dL Hct (39.0-53.0) % MCHC (31.0-37.0) g/dL RDW (11.5-15.5) % Neutrophils # (1.3-7.7) k/uL Lymphocytes # (1.0-4.8) k/uL APTT (22.0-30.0) sec VBG pH (7.31-7.41) VBG HCO3 (24-28) mmol/L Sodium (137-145) mmol/L Potassium (3.5-5.1) mmol/L Carbon Dioxide (22-30) mmol/L BUN (9-20) mg/dL Creatinine (0.66-1.25) mg/dL Glucose (74-99) mg/dL Plasma Lactic Acid Uegene (0.7-2.0) mmol/L Troponin I 0.117 H* 0.100 H* (0.000-0.034) ng/mL Procalcitonin 7.87 H (0.02-0.09) ng/mL Urine Protein (Negative) Urine Glucose (UA) (Negative) Urine Blood (Negative) Urine Mucus (None) /hpf 09/06/23 09/06/23 09/07/23 Range/Units 15:49 21:45 01:06 WBC (3.8-10.6) k/uL RBC (4.30-5.90) m/uL Hgb (13.0-17.5) gm/dL Hct (39.0-53.0) % MCHC (31.0-37.0) g/dL RDW (11.5-15.5) % Neutrophils # (1.3-7.7) k/uL Lymphocytes # (1.0-4.8) k/uL APTT 50.7 H (22.0-30.0) sec VBG pH (7.31-7.41) VBG HCO3 (24-28) mmol/L Sodium 128 L 131 L (137-145) mmol/L Potassium 5.5 H (3.5-5.1) mmol/L Carbon Dioxide 16 L 18 L (22-30) mmol/L BUN 38 H 34 H (9-20) mg/dL Creatinine 1.41 H (0.66-1.25) mg/dL Glucose 134 H 105 H (74-99) mg/dL Plasma Lactic Acid Eugene (0.7-2.0) mmol/L Troponin I (0.000-0.034) ng/mL Procalcitonin (0.02-0.09) ng/mL Urine Protein (Negative) Urine Glucose (UA) (Negative) Urine Blood (Negative) Urine Mucus (None) /hpf 09/07/23 09/07/23 09/07/23 Range/Units 05:35 05:35 05:35 WBC 19.1 H (3.8-10.6) k/uL RBC 3.78 L (4.30-5.90) m/uL Hgb 10.3 L (13.0-17.5) gm/dL Hct 34.1 L (39.0-53.0) % MCHC 30.2 L (31.0-37.0) g/dL RDW 18.8 H (11.5-15.5) % Neutrophils # 18.0 H (1.3-7.7) k/uL Lymphocytes # 0.4 L (1.0-4.8) k/uL APTT (22.0-30.0) sec VBG pH (7.31-7.41) VBG HCO3 (24-28) mmol/L Sodium 133 L (137-145) mmol/L Potassium (3.5-5.1) mmol/L Carbon Dioxide 20 L (22-30) mmol/L BUN 24 H (9-20) mg/dL Creatinine (0.66-1.25) mg/dL Glucose (74-99) mg/dL Plasma Lactic Acid Eugene (0.7-2.0) mmol/L Troponin I 0.062 H* (0.000-0.034) ng/mL Procalcitonin (0.02-0.09) ng/mL Urine Protein (Negative) Urine Glucose (UA) (Negative) Urine Blood (Negative) Urine Mucus (None) /hpf Assessment and Plan (1) Sepsis Current Visit: Yes Status: Acute Code(s): A41.9 - SEPSIS, UNSPECIFIED ORGANISM SNOMED Code(s): 81828398 (2) Penicillin allergy Current Visit: Yes Status: Acute Code(s): Z88.0 - ALLERGY STATUS TO PENICILLIN SNOMED Code(s): 88443706 (3) Pneumonia Current Visit: No Status: Acute Priority: High Code(s): J18.9 - PNEUMONIA, UNSPECIFIED ORGANISM SNOMED Code(s): 325226784 (4) Leukocytosis Current Visit: No Status: Acute Priority: Medium Code(s): D72.829 - ELEVATED WHITE BLOOD CELL COUNT, UNSPECIFIED SNOMED Code(s): 655561676 Plan: 1patient presented to hospital with sepsis in this patient who did have low- grade fever tachycardia elevated white count source is likely pneumonia with evidence of worsening cavitation to the right upper lobe medially and consolidation of the left lower lobe with concern for possible resistant gram- positive or gram-negative pathogen as the patient has been out of the hospital and did have previous history of MSSA pneumonia 2-penicillin allergy that will limit number of antibiotics safe to use 3-sputum culture has been obtained results will be followed 4-patient to continue with vancomycin pharmacy to dose and cefepime while waiting for the culture to finalize noticed to have slight worsening of the white count could be steroid related and will be monitored closely Dictation was produced using [employer] dictation software. please excuse any grammatical, word or spelling errors.
--- NOTE | 2023-09-08 13:46 | P.PN ---
Subjective Progress Note Date: 09/08/23 Principal diagnosis: Reason for follow-up is sepsis and pneumonia Patient is a 62-year-old male with a past medical history significant for coronary disease hypertension hyperlipidemia, squamous cell carcinoma of the left midline patient also have admission in May 2023 concerning for possible cavitating pneumonia abscess sputum was positive for MSSA patient now presented to hospital with increasing shortness of breath cough patient was noted to be septic possibly due to pneumonia CT did shows enlarging cavitary mass right upper lobe with immediately progressive consolidation left lower lobe prompting this consultation. On today's evaluation that is 09/08/2023, patient has been afebrile, patient is breathing comfortably and is currently on 2 L nasal cannula oxygen, patient denies having any worsening cough no chest pain shortness of breath, patient denies nausea vomiting or diarrhea and no abdominal pain. Patient white count is down to 10.5 creatinine 0.71 blood and sputum cultures currently pending Objective - Vital Signs Vital signs: Vital Signs Temp 98 F 09/08/23 12:00 Pulse 78 09/08/23 12:00 Resp 19 09/08/23 12:00 BP 120/66 09/08/23 12:00 Pulse Ox 98 09/08/23 12:00 FiO2 Intake & Output 09/07/23 09/08/23 09/08/23 18:59 06:59 18:59 Intake Total 2500.921 8218.095 8838 Output Total 1165 1210 900 Balance 1335.921 705.613 200 Weight 66.224 kg Intake: IV 2009 1909 999 Cefepime 2 gm In Sodium 200 100 100 Chloride 0.9% 100 ml @ 25 mls/hr IVPB Q8HR [facility] Rx# :[id number] Sodium Chloride 0.9% 1, 1560 1560 650 000 ml @ 130 mls/hr IV . Q7H42M [facility] Rx#:[id number] Vancomycin 1,250 mg In 250 Sodium Chloride 0.9% 250 ml @ 125 mls/hr IVPB [facility]CE [facility] Rx#:[id number] Vancomycin 1,250 mg In 250 250 Sodium Chloride 0.9% 250 ml @ 125 mls/hr IVPB Q12H [facility] Rx#:[id number] Intake, IV Titration 46.921 5.613 Amount Heparin Sod,Pork in 0.45% 40.132 NaCl 25,000 unit In 0.45 % NaCl 1 250ml.bag @ 12 UNITS/KG/HR 7.947 mls/hr IV .Q24H [facility] Rx#: [id number] Norepinephrine 32 mg In 6.789 Sodium Chloride 0.9% 218 ml @ 0.03 MCG/KG/MIN 0. 931 mls/hr IV .Q24H [facility] Rx#:[id number] Norepinephrine 32 mg In 5.613 Sodium Chloride 0.9% 218 ml @ 0.03 MCG/KG/MIN 0. 931 mls/hr IV .Q24H [facility] Rx#:[id number] Oral 444 100 Output: Gastric Drainage 200 Urine 1165 1210 700 Other: Voiding Method Indwelling Catheter Indwelling Catheter Indwelling Catheter # Bowel Movements 1 - Exam GENERAL DESCRIPTION: Middle-age male lying in bed in no distress RESPIRATORY SYSTEM: Unlabored breathing , coarse breath sounds no wheeze HEART: S1 S2 regular rate and rhythm , ABDOMEN: Soft , no tenderness EXTREMITIES: No edema feet - Labs CBC & Chem 7: 09/08/23 05:41 09/08/23 05:41 Labs: Abnormal Lab Results - Last 24 Hours (Table) 09/07/23 09/08/23 09/08/23 Range/Units 05:35 05:41 05:41 RBC 3.26 L (4.30-5.90) m/uL Hgb 9.3 L (13.0-17.5) gm/dL Hct 29.2 L (39.0-53.0) % RDW 19.0 H (11.5-15.5) % Neutrophils # (Manual) 9.56 H (1.3-7.7) k/uL Lymphocytes # (Manual) 0.53 L (1.0-4.8) k/uL Sodium 132 L (137-145) mmol/L Cortisol 24.8 H (3.1-22.4) UG/DL Microbiology - Last 24 Hours (Table) 09/06/23 22:53 Gram Stain - Preliminary Sputum Sputum Culture - Preliminary 09/06/23 09:35 Blood Culture - Preliminary Blood 09/06/23 09:50 Blood Culture - Preliminary Blood Assessment and Plan (1) Sepsis Current Visit: Yes Status: Acute Code(s): A41.9 - SEPSIS, UNSPECIFIED ORGANISM SNOMED Code(s): 41591803 (2) Penicillin allergy Current Visit: Yes Status: Acute Code(s): Z88.0 - ALLERGY STATUS TO PENICILLIN SNOMED Code(s): 99361835 (3) Pneumonia Current Visit: No Status: Acute Priority: High Code(s): J18.9 - PNEUMONIA, UNSPECIFIED ORGANISM SNOMED Code(s): 933587343 Plan: 1patient presented to hospital with sepsis in this patient who did have low- grade fever tachycardia elevated white count source is likely pneumonia with evidence of worsening cavitation to the right upper lobe medially and consolidation of the left lower lobe with concern for possible resistant gram- positive or gram-negative pathogen as the patient has been out of the hospital and did have previous history of MSSA pneumonia 2-penicillin allergy that will limit number of antibiotics safe to use 3-sputum culture has been obtained which are currently pending patient did have elevated procalcitonin of 7.87 4-patient did have some clinical improvement and patient white count normalized, to continue with vancomycin pharmacy to dose and cefepime while waiting for the culture to finalize Dictation was produced using [employer] dictation software. please excuse any gramma tical, word or spelling errors. Time with Patient: Less than 30
[2023-09-09 07:35] LABS: African American GFR (CKD) >90 (>60 ml/min/1.73 sqM); Anion Gap 3 mmol/L; Blood Urea Nitrogen 9 mg/dL (9-20); Carbon Dioxide 23 mmol/L (22-30); Chloride 105 mmol/L (98-107); Glucose 90 mg/dL (74-99); Non-African American GFR(CKD) >90 (>60 ml/min/1.73 sqM); Sodium 131 mmol/L (137-145)
[2023-09-09] MEDS: VANCOMYCIN TROUGH DUE 1 EACH MISC MISCELLANE ONE (07:38)
[2023-09-09 09:06] LABS: Anisocytosis Slight; Basophils % (A) 0 %; Eosinophils % (A) 0 %; HCT 28.2 % (39.0-53.0); HGB 8.6 gm/dL (13.0-17.5); Hypochromasia Marked; Lymphocytes # (A) 0.4 k/uL (1.0-4.8); Lymphocytes % (A) 4 %; MCH 27.5 pg (25.0-35.0); MCHC 30.4 g/dL (31.0-37.0); MCV 90.5 fL (80.0-100.0); Mean Platelet Volume 8.1; Monocytes # (A) 0.6 k/uL (0-1.0); Monocytes % (A) 7 %; Neutrophils # (A) 7.7 k/uL (1.3-7.7); Neutrophils % (A) 88 %; Platelet Count 276 k/uL (150-450); RBC 3.11 m/uL (4.30-5.90); RDW 18.9 % (11.5-15.5); WBC 8.8 k/uL (3.8-10.6)
--- NOTE | 2023-09-09 09:31 | P.PN ---
Subjective Progress Note Date: 09/09/23 This is a 62-year-old gentleman with a past medical history significant for CAD as well as hypertension and dyslipidemia and history of lung cancer who was admitted to the hospital with abdominal discomfort. He was found to have mildly elevated troponin. On examination he did have a rigid abdomen/surgical abdomen but CT scan of the abdomen and pelvis and chest did not show any acute abnormalities. September 07, 2023 The patient was seen and evaluated this morning. He is overall feeling better but he still have tenderness in the abdomen. The troponin is mildly elevated. The CT scan as described above. He is unstable requiring small dose of norepinephrine. He is in process of having an echocardiogram with Doppler later on today. Currently is not experiencing any symptoms of chest pain or chest discomfort. He did have an episode of SVT last night and currently is on amiodarone. I am going to add small dose of metoprolol to 12.5 mg p.o. twice daily to the current medical regimen we will hold heparin in the light of possible GI bleeding. The examination is remarkable for regular rhythm with soft systolic murmur and clear breathing sounds bilaterally and tender abdomen with no edema was noted September 08, 2023 The patient was seen and evaluated this morning. He is asymptomatic from a c ardiovascular standpoint of view and he is hemodynamically stable. He is in sinus mechanism with no more episode of SVT noted. The echo showed normal LV systolic function with no evidence of wall motion abnormalities. From the cardiac standpoint of view I will continue the current medical regimen. No need for any invasive workup at this point. Examination is remarkable for regular rhythm with a soft systolic murmur and clear breathing sounds bilaterally and no edema was noted 09/08 Patient is seen today on the Medr floor as he was transferred out of the intensive care unit yesterday afternoon. Blood pressure 122/67, heart rate 77, pulse ox 96% on room air, afebrile. Patient has had no documented elevated heart rates, he is not on telemetry. He has been continued on a beta-agnes. He states that he still has some chest pain and stomach pain from coughing. He is bringing up mucus and he states it caused him to be out most of the night because of the cough. Repeat blood work reveals sodium 131, potassium 4, BUN 9 and creatinine 0.62. Patient has not been started on heparin drip due to concern for GI bleed. Patient has been maintained on beta-agnes and amiodarone for SVT. Echocardiogram reveals EF of 55 to 60%. Assessment Sepsis secondary to pneumonia SVT Evidence of myocardial injury with abnormal troponins, most likely type II MT Tenderness in the abdomen. Acute surgical abdomen has been ruled out Coronary artery disease History of metastatic squamous cell lung cancer Multiple comorbid conditions Plan Continue the current dose of amiodarone and metoprolol Follow-up with the patient Nurse practitioner note has been reviewed, I agree with documented findings and plan of care. Patient was seen and examined. Objective - Vital Signs Vital signs: Vital Signs Temp 98.2 F 09/09/23 02:00 Pulse 77 09/09/23 02:00 Resp 16 09/09/23 02:00 BP 127/67 09/09/23 02:00 Pulse Ox 96 09/09/23 02:00 FiO2 Intake & Output 09/08/23 09/09/23 09/09/23 18:59 06:59 18:59 Intake Total 1100 590 Output Total 900 Balance 200 590 Intake: IV 1000 Cefepime 2 gm In Sodium 100 Chloride 0.9% 100 ml @ 25 mls/hr IVPB Q8HR [facility] Rx# :[id number] Sodium Chloride 0.9% 1, 650 000 ml @ 130 mls/hr IV . Q7H42M [facility] Rx#:[id number] Vancomycin 1,250 mg In 250 Sodium Chloride 0.9% 250 ml @ 125 mls/hr IVPB Q12H [facility] Rx#:[id number] Oral 100 590 Output: Gastric Drainage 200 Urine 700 Other: Voiding Method Indwelling Catheter Toilet # Voids 1 3 - Labs CBC & Chem 7: 09/09/23 06:55 09/09/23 06:55 Labs: Abnormal Lab Results - Last 24 Hours (Table) 09/08/23 09/09/23 Range/Units 05:41 06:55 Neutrophils # (Manual) 9.56 H (1.3-7.7) k/uL Lymphocytes # (Manual) 0.53 L (1.0-4.8) k/uL Sodium 131 L (137-145) mmol/L Creatinine 0.62 L (0.66-1.25) mg/dL Microbiology - Last 24 Hours (Table) 09/06/23 09:35 Blood Culture - Preliminary Blood 09/06/23 09:50 Blood Culture - Preliminary Blood 09/06/23 22:53 Gram Stain - Preliminary Sputum Sputum Culture - Preliminary
--- NOTE | 2023-09-09 11:14 | P.PN ---
Subjective Progress Note Date: 09/09/23 This is a 62-year-old male patient with a known history of squamous cell lung cancer and left midlung mass. He also has chronic obstructive pulmonary disease chronic tobacco dependence, hypertension, hyperlipidemia, coronary artery disease with previous stent placement, ischemic cardiomyopathy. He was seen here last in May 2023 for suspected lung infection he had cavitary lesion in the right upper lobe and left lower lobe consolidation. Both of those areas were washed during bronchoscopy and sent to the lab. No malignancy was noted. He is currently undergoing radiation treatments and had 3 out of 10 scheduled but ended up back here in the hospital again. Had developed ongoing issues with increasing shortness of breath, cough congestion nausea vomiting diarrhea. He nearly fell at home from weakness. Chest x-ray revealed consolidative process in the left lower lobe again noted compared to previous on 08/28/2023. Additional irregular density in the right suprahilar region. Was also having chest pain and palpitations. A CT scan revealed no evidence for thoracic or abdominal aortic aneurysm or dissection. There was again noted enlarging cavitary mass of the right upper lobe medially. Progressive consolidation of the left lower lobe with less cavitation. Progressive adenopathy. Left hilar mass difficult to exclude. White count 17.6. Hemoglobin 12.7. Platelets 446. INR 1.0. Sodium 128. Potassium 5.0. Bicarb 14. BUN 36. Creatinine 1.34. Glucose 165. Lactic acid 2.7. Troponin negative x 1. Lipase 111. Is been initiated on Levaquin. He was found to be quite hypotensive. He has received 3-1/2 L of fluid. He is initiated on norepinephrine at 0.2 g/kg/min. He has normal saline at 130 MLS per hour. He is seen today in consultation in the intensive care unit. He is awake and alert in no acute distress. He is maintaining O2 saturations in the mid 90s on 3 L/min per nasal cannula. He afebrile. He remains tachycardic. The patient is seen today September 07, 2023 in follow-up in the intensive care unit. He is awake and alert in no acute distress. He is maintaining O2 saturations in the 90s on 3 L/min per nasal cannula. He has normal saline at 130 MLS per hour. He remains on norepinephrine at 3 mcg/min. He did have stool for occult blood positive. His heparin drip was placed on hold. His procalcitonin was 7.87. He is currently on vancomycin and cefepime. Blood and sputum cultures pending. White count 19.1. Hemoglobin 10.3. Platelets 404. INR 1.1. Sodium 133. Potassium 4.7. Bicarb 20. BUN 24. Creatinine 1.05. Glucose 93. Tropo nadir 0.062. Cortisol level is pending. Chest x-ray continues to reveal left lower lobe consolidation as well as right suprahilar opacity. The patient is seen today September 08, 2023 in follow-up in the intensive care unit. He is awake and alert in no acute distress. He is maintaining O2 saturations in the 90s on 2 L/min per nasal cannula. He has normal saline at 120 MLS per hour. His norepinephrine has been off since 4 AM. Mean arterial pressure in the 70s currently. Blood cultures pending. Sputum culture pending. White count 10.5. Hemoglobin 9.3. Platelets 322. Sodium 132. Potassium 4.4. Bicarb 22. BUN 11. Creatinine 0.71. He remains on DuoNeb inhalations. Antibiotics in the form of vancomycin and cefepime. Lovenox for DVT prophylaxis. The patient is seen to today September 09, 2023 in follow-up on the regular medical floor. He is currently sitting up in bed. Awake and alert in no acute distress. He is maintaining O2 saturations in the 90s on 2 L/min per nasal cannula. Blood cultures revealed no growth. Sputum culture revealed no growth. White count 8.8. Hemoglobin 8.6. Platelets 276. Sodium 131. Potassium 4.0. Bicarb 23. BUN 9. Creatinine 0.62. Glucose 90. He is continued on DuoNeb inhalations. Antibiotics in the form of vancomycin and cefepime. Lovenox for DVT prophylaxis. He remains on normal saline at 120 MLS per hour. He is eating and drinking well. Objective - Vital Signs Vital signs: Vital Signs Temp 98.2 F 09/09/23 07:26 Pulse 76 09/09/23 10:09 Resp 16 09/09/23 07:26 BP 100/62 09/09/23 10:09 Pulse Ox 96 09/09/23 08:28 FiO2 Intake & Output 09/08/23 09/09/23 09/09/23 18:59 06:59 18:59 Intake Total 1100 590 480 Output Total 900 Balance 200 590 480 Weight 66.224 kg Intake: IV 1000 Cefepime 2 gm In Sodium 100 Chloride 0.9% 100 ml @ 25 mls/hr IVPB Q8HR [facility] Rx# :[id number] Sodium Chloride 0.9% 1, 650 000 ml @ 130 mls/hr IV . Q7H42M [facility] Rx#:[id number] Vancomycin 1,250 mg In 250 Sodium Chloride 0.9% 250 ml @ 125 mls/hr IVPB Q12H [facility] Rx#:[id number] Oral 100 590 480 Output: Gastric Drainage 200 Urine 700 Other: Voiding Method Indwelling Catheter Toilet Toilet # Voids 1 3 - Exam GENERAL EXAM: Awake 62-year-old male, sitting up in bed, on 2 L nasal cannula, in no apparent distress. HEAD: Normocephalic. EYES: Normal reaction of pupils, equal size. NOSE: Clear with pink turbinates. THROAT: No erythema or exudates. NECK: No masses, no JVD. CHEST: No chest wall deformity. LUNGS: Equal air entry with bilateral scattered rhonchi. CVS: S1 and S2 normal with no audible murmur, regular rhythm. ABDOMEN: No hepatosplenomegaly, normal bowel sounds, no guarding or rigidity. SPINE: No scoliosis or deformity SKIN: No rashes CENTRAL NERVOUS SYSTEM: No focal deficits, tone is normal in all 4 extremities. EXTREMITIES: There is no peripheral edema. No clubbing, no cyanosis. Peripheral pulses are intact. - Labs CBC & Chem 7: 09/09/23 06:55 09/09/23 06:55 Labs: Abnormal Lab Results - Last 24 Hours (Table) 09/09/23 09/09/23 Range/Units 06:55 06:55 RBC 3.11 L (4.30-5.90) m/uL Hgb 8.6 L (13.0-17.5) gm/dL Hct 28.2 L (39.0-53.0) % MCHC 30.4 L (31.0-37.0) g/dL RDW 18.9 H (11.5-15.5) % Lymphocytes # 0.4 L (1.0-4.8) k/uL Sodium 131 L (137-145) mmol/L Creatinine 0.62 L (0.66-1.25) mg/dL Microbiology - Last 24 Hours (Table) 09/06/23 22:53 Gram Stain - Final Sputum Sputum Culture - Final 09/06/23 09:35 Blood Culture - Preliminary Blood 09/06/23 09:50 Blood Culture - Preliminary Blood Assessment and Plan Assessment: Generalized weakness secondary to nausea, vomiting, diarrhea Acetone positive, suspect starvation ketosis Hypotension secondary to above, recovered and currently off pressors Acute kidney injury secondary to dehydration Hyponatremia secondary to above, improving Hyperkalemia secondary to above, improved Leukocytosis, improved Troponin leak GI bleed, stool for occult blood positive. Heparin drip on hold Metastatic squamous cell carcinoma, likely with disease progression. A CT scan today revealed no evidence for thoracic or abdominal aortic aneurysm or dissection. There was again noted enlarging cavitary mass of the right upper lobe medially. Progressive consolidation of the left lower lobe with less cavitation. Progressive adenopathy. Left hilar mass difficult to exclude. The patient had received 3 recent radiation treatments to complete 10. The patient has been in and out of the hospital and no consistent treatment lately. Bronchoscopy in May 2023 of the right upper lobe and left lower lobe washings revealed no evidence of malignancy Acute hypoxic respiratory failure secondary to above Chronic anemia, current hemoglobin 8.6 History of hypertension History of hyperlipidemia History of coronary artery disease with previous PCI/stent History of ischemic cardiomyopathy, most recent echocardiogram available from 08/27/2022 estimates an impaired left ventricular systolic ejection fraction of 35% though new echocardiogram from 09/07/2023 reveals a normal ejection fraction of 55 to 60%. Chronic obstructive pulmonary disease, stable Former tobacco dependance History of ocular herpes, on valacyclovir outpatient History of atrial fibrillation, was on amiodarone and Eliquis in the outpatient setting Plan: The patient was seen and evaluated Labs and medications reviewed Decrease fluids to KVO Add a flutter valve Remains on bronchodilators Vancomycin and cefepime per ID service Titrate down the FiO2 as tolerated Lovenox for DVT prophylaxis This patient was seen independently by the pulmonary nurse practitioner addressing pulmonary issues I have personally seen and examined the patient, performed the documentation and the assessment and plan as written. Number of minutes spent on the visit: 24.
[2023-09-09] MEDS ORDERED: ACET/COD 120MG/12MG LIQ 5ML CUP PO PRN (11:32)
--- NOTE | 2023-09-09 11:36 | P.PN ---
Subjective Progress Note Date: 09/09/23 62 year old M with PMH of lung CA with history of lung abscess, COPD with intermittent home O2, CAD with stents, h/o SVT, HTN, HLD, CHF with previous EF 35-40% presents to the ED for multiple complaints. He reports waking up this morning with a coughing fit. He reports chest pain, stabbing in nature, mid- sternal, worse with deep inspiration that started with the coughing fit. Chest pain is associated with palpitations. When he went to the washroom his legs gave out. He reports feeling nauseated with chronic epigastric pain since initiating chemotherapy. He reports not eating or drinking much for the past week. He complaints of a lump in his throat. He also reports positional lightheadedness. He feels short of breath with ambulation since starting chemotherapy and radiation. His last radiation treatment was yesterday with Dr. Shearer. Chemotherapy has been put on hold for the past few months by Dr. Hoyos while he recovered from his known lung abscess. He denies any headache, lower extremity edema, fever or chills, changes in urination or bowel habits. In the ED he underwent extensive evaluation. BP 67/47 HR 133, T 99.2F, with periods of desaturation into the 80s while on 2L NC. CBC, Coag panel, CMP significant for WBC 17.6, Hg 12.7, Na 128, Cl 97, bicarb 14, BUN 36, Cr 1.34, glu 165, Ca 10.6, alk phos 152. Lactic acid 2.7. Troponin < 0.012. Lipase 111. EKG sinus tachycardia with PVCs. CT thorax enlarging cavitary mass right upper lobe medially, progressive left lower lobe with less cavitation and progressive adenopathy. He was given a dose of Levaquin and NS bolus and admitted to ICU for need for pressors. Patient was given 3.5L NS bolus and started on maintenance fluids along with norepinephrine drip and admitted to ICU. Initially started on Levaquin for treatment of lung abscess, ID consulted, antibiotics switched to Vancomycin and Cefepime. Troponins trending < 0.012, 0.1, 0.062 thus Eliquis discontinued and patient started on Heparin drip. Stool occult came back positive and heparin drip was put on hold. Levophed was weaned off 09/07. 09/07 Patient was seen and examined. Sharp stabbing chest pain with cough. CBC RBC 3.26, Hg 9.3, Hct 29.2. BMP Na 132. RSV/Flu/COVID negative. Antibiotics include Vancomycin (D3) and Cefepime (D3). Heparin drip put on hold. Levophed weaned off early this morning. Echo shows EF 55-60%. BCx negative so far. Sputum Cx no PMN with rare G+ cocci and G- bacilli. 09/08 Patient was seen and examined. Coughing up sputum. Sputum Cx shown normal jennifer. CBC RBC 3.11, Hg 8.6, Hct 28.2. BMP Na 131, Cr 0.62. Vanc trough 15.3. General: Non toxic, mild distress, cachectic Derm: Warm, dry Head: Atraumatic, normocephalic, symmetric Eyes: EOMI, no lid lag, anicteric sclera Mouth: No lip lesion, mucus membranes moist Cardiovascular: S1S2 reg, no murmur Lungs: Decreased BS bilateral, no rhonchi, no rales, no accessory muscle use Abdominal: Soft, TTP in all 4 quadrants worse in the epigastric region without rebound, no guarding, no appreciable organomegaly Ext: No gross muscle atrophy, no edema, no contractures Neuro: no focal neuro deficits Psych: Alert, oriented, appropriate affect Based on my assessment of this patient, this patient meets a high complexity level of care. Sepsis likely due to lung abscess: Shock resolved. Status post 3.5L NS bolus in the ED and ICU. DC IVF and encourage hydration by mouth. CT with findings of mayra g abscess. Levaquin switched to Vancomycin dosed per pharmacy and Cefepime 2g IV TID (D4). Holding Lisinopril and Aldactone. Pro-rafita elevated. Legionella Ag negative. UA negative nitrite or LE. COVID/RSV/Flu negative. Echo unrevealing. Sputum Cx, BCx negative so far. Telemetry monitoring. Tylenol 650 mg PO Q6H PRN for fever. ID and Pulmonary on board. Acute hypoxic respiratory failure likely due to above History of SVT: Amiodarone 200 mg PO QD. Metoprolol as below. NSTEMI: Likely Type 2. Pleuritic. Likely related to lung abscess. Troponin < 0.012, 0.1, 0.062. Echo as above. Heparin drip put on hold. ASA 81 mg PO QD and Lipitor 80 mg PO QHS. Metoprolol 12.5 mg PO BID. Cardiology on board. Epigastric pain with + stool occult: With nausea and vomiting. Possible gastritis. No abnormalities in the abdomen/pelvis seen on thorax CT. Protonix 40 mg IV QD. Resolved: Lactic acidosis, High anion gap metabolic acidosis, shock, HypoNa, NEETA CODE STATUS: FULL CODE DVT Prophylaxis: Lovenox SQ GI Prophylaxis: Protonix IV Designated medical POA if patient is not able to make medical decisions for th emselves: I have reviewed the following design studio consultant notes: Cardiology, Pulmonary note. I have reviewed the results of the following tests: CBC, BMP, Vanc tough I have ordered the following tests: CBC and BMP tomorrow to trend leukocytosis and renal function while on Vancomycin. I have discussed the care of this patient with the following independent historian: I have independently interpreted the following test below: I have discussed the management of this patient with the following physician: Objective - Vital Signs Vital signs: Vital Signs Temp 98.2 F 09/09/23 07:26 Pulse 76 09/09/23 10:09 Resp 16 09/09/23 07:26 BP 100/62 09/09/23 10:09 Pulse Ox 96 09/09/23 08:28 FiO2 Intake & Output 09/08/23 09/09/23 09/09/23 18:59 06:59 18:59 Intake Total 1100 590 480 Output Total 900 Balance 200 590 480 Weight 66.224 kg Intake: IV 1000 Cefepime 2 gm In Sodium 100 Chloride 0.9% 100 ml @ 25 mls/hr IVPB Q8HR [facility] Rx# :[id number] Sodium Chloride 0.9% 1, 650 000 ml @ 130 mls/hr IV . Q7H42M [facility] Rx#:[id number] Vancomycin 1,250 mg In 250 Sodium Chloride 0.9% 250 ml @ 125 mls/hr IVPB Q12H [facility] Rx#:[id number] Oral 100 590 480 Output: Gastric Drainage 200 Urine 700 Other: Voiding Method Indwelling Catheter Toilet Toilet # Voids 1 3 - Labs CBC & Chem 7: 09/09/23 06:55 09/09/23 06:55 Labs: Abnormal Lab Results - Last 24 Hours (Table) 09/09/23 09/09/23 Range/Units 06:55 06:55 RBC 3.11 L (4.30-5.90) m/uL Hgb 8.6 L (13.0-17.5) gm/dL Hct 28.2 L (39.0-53.0) % MCHC 30.4 L (31.0-37.0) g/dL RDW 18.9 H (11.5-15.5) % Lymphocytes # 0.4 L (1.0-4.8) k/uL Sodium 131 L (137-145) mmol/L Creatinine 0.62 L (0.66-1.25) mg/dL Microbiology - Last 24 Hours (Table) 09/06/23 22:53 Gram Stain - Final Sputum Sputum Culture - Final 09/06/23 09:35 Blood Culture - Preliminary Blood 09/06/23 09:50 Blood Culture - Preliminary Blood
[2023-09-09] MEDS: metroNIDAZOLE 500 MG TAB PO SCH (15:32)
--- NOTE | 2023-09-09 16:05 | P.PN ---
Subjective Progress Note Date: 09/09/23 Principal diagnosis: Reason for follow-up is sepsis and pneumonia Patient is a 62-year-old male with a past medical history significant for coronary disease hypertension hyperlipidemia, squamous cell carcinoma of the left midline patient also have admission in May 2023 concerning for possible cavitating pneumonia abscess sputum was positive for MSSA patient now presented to hospital with increasing shortness of breath cough patient was noted to be septic possibly due to pneumonia CT did shows enlarging cavitary mass right upper lobe with immediately progressive consolidation left lower lobe prompting this consultation. On today's evaluation that is 09/09/2023, Patient is afebrile this morning patient denies having any chest pain shortness of breath still having a cough and is bringing up some purulent sputum, the patient is breathing comfortably and currently on room air, patient denies any abdominal pain no diarrhea no nausea no vomiting. Patient white count is 8.8, creatinine 0.62 sputum culture negative for any resistant pathogen blood culture negative Objective - Vital Signs Vital signs: Vital Signs Temp 98.2 F 09/09/23 07:26 Pulse 80 09/09/23 12:02 Resp 16 09/09/23 07:26 BP 100/62 09/09/23 10:09 Pulse Ox 96 09/09/23 08:28 FiO2 Intake & Output 09/08/23 09/09/23 09/09/23 18:59 06:59 18:59 Intake Total 1100 590 480 Output Total 900 Balance 200 590 480 Weight 66.224 kg Intake: IV 1000 Cefepime 2 gm In Sodium 100 Chloride 0.9% 100 ml @ 25 mls/hr IVPB Q8HR [facility] Rx# :[id number] Sodium Chloride 0.9% 1, 650 000 ml @ 130 mls/hr IV . Q7H42M [facility] Rx#:[id number] Vancomycin 1,250 mg In 250 Sodium Chloride 0.9% 250 ml @ 125 mls/hr IVPB Q12H [facility] Rx#:[id number] Oral 100 590 480 Output: Gastric Drainage 200 Urine 700 Other: Voiding Method Indwelling Catheter Toilet Toilet # Voids 1 3 - Exam GENERAL DESCRIPTION: Middle-age male lying in bed in no distress RESPIRATORY SYSTEM: Unlabored breathing , coarse breath sounds no wheeze HEART: S1 S2 regular rate and rhythm , ABDOMEN: Soft , no tenderness EXTREMITIES: No edema feet - Labs CBC & Chem 7: 09/09/23 06:55 09/09/23 06:55 Labs: Abnormal Lab Results - Last 24 Hours (Table) 09/09/23 09/09/23 Range/Units 06:55 06:55 RBC 3.11 L (4.30-5.90) m/uL Hgb 8.6 L (13.0-17.5) gm/dL Hct 28.2 L (39.0-53.0) % MCHC 30.4 L (31.0-37.0) g/dL RDW 18.9 H (11.5-15.5) % Lymphocytes # 0.4 L (1.0-4.8) k/uL Sodium 131 L (137-145) mmol/L Creatinine 0.62 L (0.66-1.25) mg/dL Microbiology - Last 24 Hours (Table) 09/06/23 22:53 Gram Stain - Final Sputum Sputum Culture - Final 09/06/23 09:35 Blood Culture - Preliminary Blood 09/06/23 09:50 Blood Culture - Preliminary Blood Assessment and Plan (1) Sepsis Current Visit: Yes Status: Acute Code(s): A41.9 - SEPSIS, UNSPECIFIED ORGANISM SNOMED Code(s): 95046334 (2) Penicillin allergy Current Visit: Yes Status: Acute Code(s): Z88.0 - ALLERGY STATUS TO PENICILLIN SNOMED Code(s): 86134099 (3) Pneumonia Current Visit: No Status: Acute Priority: High Code(s): J18.9 - PNEUMONIA, UNSPECIFIED ORGANISM SNOMED Code(s): 203695114 Plan: 1patient presented to hospital with sepsis in this patient who did have low- grade fever tachycardia elevated white count source is likely pneumonia with evidence of worsening cavitation to the right upper lobe medially and consolidation of the left lower lobe with concern for possible resistant gram- positive or gram-negative pathogen as the patient has been out of the hospital and did have previous history of MSSA pneumonia 2-penicillin allergy that will limit number of antibiotics safe to use 3-sputum culture has been negative for any resistant pathogen 4-we will discontinue vancomycin pharmacy to dose and cefepime start the patient on oral Omnicef and Flagyl concern for possible postobstructive pneumonia Dictation was produced using [employer] dictation software. please excuse any grammatical, word or spelling errors.
--- NOTE | 2023-09-09 16:14 | P.PN ---
Subjective Progress Note Date: 09/09/23 Principal diagnosis: Pneumonia/sepsis The patient reports he is feeling a bit better today. He is still having frequent coughing fits. He feels he is eating better, with less dysphagia or odynophagia. However, he is eating slowly. He admits he is somewhat concerned regarding possible restarting of radiotherapy, as the patient has been hospitalized after only 6 treatments. Objective - Vital Signs Vital signs: Vital Signs Temp 98.1 F 09/09/23 12:34 Pulse 84 09/09/23 16:05 Resp 16 09/09/23 12:34 BP 117/73 09/09/23 12:34 Pulse Ox 100 09/09/23 12:34 FiO2 Intake & Output 09/08/23 09/09/23 09/09/23 18:59 06:59 18:59 Intake Total 9558 005 2308 Output Total 900 Balance 246 745 8749 Weight 66.224 kg Intake: IV 1000 Cefepime 2 gm In Sodium 100 Chloride 0.9% 100 ml @ 25 mls/hr IVPB Q8HR [facility] Rx# :[id number] Sodium Chloride 0.9% 1, 650 000 ml @ 130 mls/hr IV . Q7H42M [facility] Rx#:[id number] Vancomycin 1,250 mg In 250 Sodium Chloride 0.9% 250 ml @ 125 mls/hr IVPB Q12H [facility] Rx#:[id number] Oral [phone] Output: Gastric Drainage 200 Urine 700 Other: Voiding Method Indwelling Catheter Toilet Toilet # Voids 1 3 - Constitutional General appearance: Present: no acute distress - EENT Eyes: Present: EOMI, PERRLA ENT: Present: hearing grossly normal - Neck Neck: Absent: lymphadenopathy - Respiratory Respiratory: right: wheezing, left: CTA - Cardiovascular Rhythm: regular - Gastrointestinal General gastrointestinal: Absent: distended, tenderness - Integumentary Integumentary: Present: pale - Neurologic Neurologic: Present: CNII-XII intact - Psychiatric Psychiatric: Present: A&O x's 3, appropriate affect - Labs CBC & Chem 7: 09/09/23 06:55 09/09/23 06:55 Labs: Abnormal Lab Results - Last 24 Hours (Table) 09/09/23 09/09/23 Range/Units 06:55 06:55 RBC 3.11 L (4.30-5.90) m/uL Hgb 8.6 L (13.0-17.5) gm/dL Hct 28.2 L (39.0-53.0) % MCHC 30.4 L (31.0-37.0) g/dL RDW 18.9 H (11.5-15.5) % Lymphocytes # 0.4 L (1.0-4.8) k/uL Sodium 131 L (137-145) mmol/L Creatinine 0.62 L (0.66-1.25) mg/dL Microbiology - Last 24 Hours (Table) 09/06/23 22:53 Gram Stain - Final Sputum Sputum Culture - Final 09/06/23 09:35 Blood Culture - Preliminary Blood 09/06/23 09:50 Blood Culture - Preliminary Blood Assessment and Plan Assessment: The patient is a 62-year-old male, previously diagnosed with a stage WHIT (cT3, 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 He has undergone several lines of therapy, and unfortunately now presents secondary to disease progression and recurrent pneumonia. He was hospitalized with likely left lower lobe pneumonia and severe sepsis. Plan: 1. Pneumonia - this is likely postobstructive due to the patient's malignancy. He is clinically improving with his current treatment regimen. No longer needing ICU support. 2. Metastatic non-small cell lung cancer: As noted above, the patient has completed 6 of 10 planned radiation treatments. Earlier in the week, the patient was developing difficulty with swallowing that he was concerned relates to the treatment. This seems to be improving now that the patient has been on a treatment break. I discussed with the patient that we would reevaluate him early next week regarding further treatments. The patient is somewhat concerned about resuming radiotherapy. However, he appears to have limited systemic therapy options remaining. Our hope was that ultimately radiotherapy would help to improve lung aeration and decrease the risk of postobstructive pneumonia. We will continue to evaluate the patient during his hospital stay. Time with Patient: Less than 30
[2023-09-09 17:33] LABS: % Iron Saturation 13.41 (15.00-50.00)
--- NOTE | 2023-09-09 20:41 | P.CONS ---
History of Present Illness - Reason for Consult Consult date: 09/09/23 hx lung cancer Requesting physician: Jerome Sow - Chief Complaint CP/abd pain - History of Present Illness Mr Rene is a 62 yo male pt of Dr. Hoyos who initially presented to ER 06/2020 with c/o of cough, hemoptysis intermittently for 7-10 days. CXR did not show an y major abnormality. Recommended follow-up as an outpatient with his PCP and get a CT scan done. Patient did not have a PCP so finding a PCP took some time and he did put things off, as he was working and otherwise felt well. Ultimately had a CT chest 02/02/21. This showed a 8.6 x 6.8 cm soft tissue mass encasing the left hilum, contiguous with subcarinal adenopathy. This was causing mild narrowing of the left mainstem bronchus and upper lobe branches. There was also a spiculated right perihilar mass measuring 4.1 x 2.4 cm with some central cavitation. There is a 6 cm nodule in the right midlung, and another 3 mm nodule in the right base, 6 mm nodular density in the right upper lobe. P aratracheal and subcarinal adenopathy measured 2.4 cm. Referred to Pulmonary and had bronchoscopy on 02/09/21 of the right and left upper lobes. 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 Referred to Medical Oncology. Had completion of staging with MRI, which was negative. PET scan confirmed uptake in both the right suprahilar, as well as the left hilar mass, with involvement of multiple mediastinal, hilar and subcarinal nodes. Biomarker testing showed positive PD1, with TPS 3-5%. TMB was high at 26+. He was started on immunotherapy 03/27/21. He did well for 19 cycles, then developed progression and was changed to Carbo/Gemzar starting 04/27/22. He had 4 cycles, completing those on 07/07/22. Dose was reduced with cycle 2, because of hematologic toxicity, and G-CSF was added. He was admitted after cycle 4, on 07/09/22, with lower extremity swelling not responding to Lasix, acute kidney injury, and hyperkalemia. It is felt that the patient had steroid insufficiency and was treated supportively, and was discharged on Decadron with follow-up scheduled with endocrinology outpatient. At his visit on 08/03/22 CT showed a partial response, it was decided to give him a treatment break. The patient was admitted to the hospital in mid 09/05 with shortness of breath, and tachycardia. CT angiogram done during that visit was negative for PE, but noted the right-sided lung mass to be larger in size. The patient improved with treatment for pneumonia, CHF and COPD exacerbation and continued on observation. Repeat CT 11/06 showing resolution of lung opacities, and decrease in the right-sided masslike area. At his visit on 01/18/23, he reported a new right-sided headache. He had attributed this to increase in his blood pressure medication, but this is persistent despite him stopping those medicines. MRI of the brain done was negative for metastases however, imaging did show evidence of progression in the lung on the right. The patient was therefore changed to Taxotere and Cyramza, starting the same on 02/10/23. Cyramza was then held after cycle 2, due to hemoptysis, and the patient has continued on Taxotere alone. He completed cycle 4 cycle of single agent Taxotere with GCSF last given 05/26/23. Imaging did not report any areas of new/metastatic disease. Known areas of disease slightly larger-suspect because of infection. He had hospital admission in May, and treatment has been held since due to persisting lung infection. Case was discussed with pulmonology who agreed to hold treatment to allow pt adequate to time to recover. At his last f/u on 07/27, pt was reporting persisting right sided headache, MRI brain was repeated on 08/01, which showed no evidence of mass, acute/subacute infarct, or abnormal enchancement, with nonspecific white matter changes. Plan was for pt to begin palliative RT once cleared by pulmonology and restart single agent Taxotere s/p RT. He has completed 6 of 10 fractions. Clinic f/u scheduled for 09/18, if his performance status is felt to be satisfactory at that time, will plan to resume chemotherapy with Taxotere alone. Patient represented to the emergency room with chest pain and lower abdominal pain. He states pain was sharp, and was exacerbated with coughing. He is having a productive cough with brown sputum. Also reporting dysphagia since starting RT, and feels like there is a lump in his throat causing him to vomit when eating, and subsequently has been having decreased oral intake. Upon prese ntation pt had NEETA, with creatinine 1.34, GFR 57, BUN 36. CBC showed leukocytosis with WBC 17.6. Hgb 12.7, plts 446,000. Serial troponins elevated, with abnormal EKG. Cardiology consulted. Patient has been restarted on amiodarone. No plans for surgical intervention at this time, plan to treat co nservatively. Eliquis d/c and Heparin drip has been held due to concern for GI bleed, with positive stool occult. Patient denies any laurie blood in stool or melena. Hemoglobin has been decreasing since admit, currently at 8.6. WBC improved to 8.8. Kidney function also improved, creatinine now 0.62, GFR greater than 90. Chest x-ray on admission showed consolidative process in the left lower lobe as seen previously. Additional irregular density right suprahilar region. CT angio thoracic/abdomen/pelvic aorta was obtained to rule out dissection. No evidence of thoracic or abdominal aortic aneurysm or dissection noted. Enlarging cavitary mass right upper lobe medially. Progressive consolidation of the left lower lobe with less cavitation seen. Progressive adenopathy. Left hilar mass is difficult to exclude. Patient's hospitalization has also been complicated by hypotension requiring pressors and was transferred to the ICU. Pressors has since been discontinued. Continues on amiodarone. Patient is afebrile. SpO2 96% on 2 L. Blood culture and sputum culture negative. Continues on vancomycin and cefepime. 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 3 cardiac stents, bronchoscopy for abscess Past Anesthesia/Blood Transfusion Reactions: No Reported Reaction Additional Past Anesthesia/Blood Transfusion Reaction / Comm: platelet transfusions with no reaction r/t chemo Date of Last Stent Placement:: 2017 Past Psychological History: No Psychological Hx Reported Smoking Status: Former smoker Past Alcohol Use History: None Reported Past Drug Use History: Marijuana - Past Family History Father Family Medical History: No Reported History Additional Family Medical History / Comment(s): Father of "natural causes" at the age of 79yrs. Mother Family Medical History: COPD, Coronary Artery Disease (CAD) Additional Family Medical History / Comment(s): Mother is 76yrs old. She has had several MIs, 6 cardiac stents and a 4 vessel CABG. Medications and Allergies Home Medications Medication Instructions Recorded Confirmed Type Atorvastatin [Lipitor] 80 mg PO HS 03/04/21 09/06/23 History Dapagliflozin Propanediol [Farxiga] 10 mg PO DAILY #30 tab 09/01/22 09/06/23 Rx Spiriva Respimat 1.25mcg/Actuation 2 puff INHALATION RT-HS #0 09/01/22 09/06/23 Rx Mist Albuterol Inhaler [Ventolin Hfa 1 - 2 puff INHALATION RT-Q6H PRN 06/06/23 09/06/23 History Inhaler] Hydrocodone/Acetaminophen 1 tab PO QID PRN 06/06/23 09/06/23 History [Hydrocodone/Acetaminophen 10-300 mg] Metoprolol Tartrate [Lopressor] 25 mg PO BID 06/06/23 09/06/23 History Spironolactone [Aldactone] 50 mg PO DAILY 06/06/23 09/06/23 History lisinopriL [Zestril] 20 mg PO DAILY 08/28/23 09/06/23 History Amiodarone [Cordarone] See Taper PO BID 30 Days #58 tab 08/31/23 09/06/23 Rx Apixaban [Eliquis] 5 mg PO BID 30 Days #60 tab 08/31/23 09/06/23 Rx Magnesium Oxide [Mag-Ox] 400 mg PO DAILY 30 Days #30 tab 08/31/23 09/06/23 Rx Pantoprazole [Protonix] 40 mg PO DAILY 30 Days #30 tab 08/31/23 09/06/23 Rx Allergies Allergy/AdvReac Type Severity Reaction Status Date / Time Penicillins Allergy Dyspnea & Verified 09/06/23 08:54 Hives all over Physical Exam Vitals: Vital Signs Temp Pulse Pulse Resp BP BP Pulse Ox 09/09/23 10:09 76 100/62 09/09/23 08:28 96 09/09/23 07:26 98.2 F 76 16 114/70 98 09/09/23 02:00 98.2 F 77 16 127/67 96 09/08/23 21:30 91 115/70 09/08/23 20:59 75 09/08/23 20:49 72 09/08/23 20:00 97.9 F 73 16 95/58 96 09/08/23 16:05 85 09/08/23 15:57 78 09/08/23 13:04 97.9 F 78 16 97/59 92 L 09/08/23 12:00 98 F 78 19 120/66 98 Intake and Output 09/08/23 09/09/23 09/09/23 22:59 06:59 14:59 Intake Total 590 480 Balance 590 480 Intake: Oral 590 480 Other: Voiding Method Toilet Toilet # Voids 1 3 Weight 66.224 kg - Constitutional General appearance: no acute distress, thin - EENT Eyes: anicteric sclerae, EOMI ENT: hearing grossly normal - Respiratory wheezing and course throughout, breathing unlabored Respiratory: bilateral: diminished, wheezing - Cardiovascular skin warm and dry - Gastrointestinal General gastrointestinal: soft, tenderness Localized gastrointestinal: tender: diffuse - Integumentary Integumentary: no cyanotic, no jaundiced - Psychiatric Psychiatric: A&O x's 3 Results CBC & Chem 7: 09/09/23 06:55 09/09/23 06:55 Labs: Abnormal Lab Results - Last 24 Hours (Table) 09/09/23 09/09/23 Range/Units 06:55 06:55 RBC 3.11 L (4.30-5.90) m/uL Hgb 8.6 L (13.0-17.5) gm/dL Hct 28.2 L (39.0-53.0) % MCHC 30.4 L (31.0-37.0) g/dL RDW 18.9 H (11.5-15.5) % Lymphocytes # 0.4 L (1.0-4.8) k/uL Sodium 131 L (137-145) mmol/L Creatinine 0.62 L (0.66-1.25) mg/dL Microbiology - Last 24 Hours (Table) 09/06/23 22:53 Gram Stain - Final Sputum Sputum Culture - Final 09/06/23 09:35 Blood Culture - Preliminary Blood 09/06/23 09:50 Blood Culture - Preliminary Blood Chest x-ray: report reviewed CT scan - abdomen: report reviewed CT scan - pelvis: report reviewed Assessment and Plan (1) Metastatic squamous cell carcinoma Current Visit: Yes Status: Acute Priority: High Code(s): [id number] - SNOMED Code(s): 822945475 (2) Atypical chest pain Current Visit: Yes Status: Acute Code(s): R07.89 - OTHER CHEST PAIN SNOMED Code(s): 188400205 (3) Elevated troponin Current Visit: Yes Status: Acute Priority: High Code(s): R74.8 - ABNORMAL LEVELS OF OTHER SERUM ENZYMES SNOMED Code(s): 528009622 (4) Pneumonia Current Visit: Yes Status: Acute Priority: High Code(s): J18.9 - PNEUMONIA, UNSPECIFIED ORGANISM SNOMED Code(s): 528076838 Plan: Pneumonia, SOB, CP: Presented to the emergency room with chest pain and abd pain. Had admission 2 weeks ago for CP and had cardiac workup at that time -Chest x-ray on admission showed consolidative process in the left lower lobe as seen previously. Additional irregular density right suprahilar region. CT angio thoracic/abdomen/pelvic aorta was obtained to rule out dissection. No evidence of thoracic or abdominal aortic aneurysm or dissection. Enlarging cavitary mass right upper lobe medially. Progressive consolidation of the left lower lobe with less cavitation seen. Progressive adenopathy. Left hilar mass difficult to exclude. -Troponins elevated, with abnormal EKG. Cardiology following. Patient has been restarted on amiodarone. No plans for surgical intervention at this time, plan to treat conservatively. Eliquis d/c and Heparin drip has been held due to concern for GI bleed, with positive stool occult. -Vancomycin and Cefepime started. Blood cultures and sputum culture negative. Pulmonary following Anemia: -Hgb on admit 12.7, today hgb 8.6, MCV 90.5, MCH 27.5. Platelets stable, 276,000 -Stool occult positive. Patient denies any noted blood in stool and melena. Eliquis d/c and Heparin drip has been held due to concern for GI bleed -Will obtain anemia labs -Continue to monitor CBC, please transfuse for hgb less than 7 or if symptomatic Squamous cell lung cancer: -Full oncological history in HPI -Completed cycle 4 cycle of single agent Taxotere on 05/26/23. Imaging at that time did not report any areas of new/metastatic disease. Known areas of disease slightly larger-suspect because of infection. He was admitted to the hospital after cycle 4, and treatment has been held since due to persisting lung infection. Case was discussed with pulmonology who agreed to hold treatment to allow pt adequate to time to recover. At his f/u on 07/27, pt was reporting persisting right sided headache, MRI brain was repeated on 08/01, which showed no evidence of mass, acute/subacute infarct, or abnormal enhancement. -Plan was for pt to begin palliative RT once cleared by pulmonology and restart single agent Taxotere s/p RT. He has since completed 6 of 10 fractions, which has been delayed due to multiple admissions. Pt unsure if he would like to continue with RT due to side effects. Spoke with Dr. Shearer today, consult has been placed -Clinic f/u scheduled for 09/18, if his performance status is felt to be satisfactory at that time and has completed RT, will plan to resume chemotherapy with Taxotere alone attests:I have seen and examined pt, performed H&P, developed impression and plan of care. Discussed with dictator. Agree with documentation, dictated as a scribe.
[2023-09-09] MEDS: CEFDINIR 300 MG CAP PO SCH (22:33)
[2023-09-09] MEDS: ACETAMINOPHEN TAB 325 MG TAB PO PRN (22:55)
[2023-09-10] MEDS: Acetaminophen-Codeine 300-30mg TAB PO PRN (06:41)
[2023-09-10] MEDS: guaiFENesin 600 MG TABLET.ER PO SCH (09:38)
[2023-09-10] MEDS: methylPREDNISolone 4 MG TAB TAPER PO SCH (09:40)
--- NOTE | 2023-09-10 10:04 | P.PN ---
Subjective Progress Note Date: 09/10/23 This is a 62-year-old male patient with a known history of squamous cell lung cancer and left midlung mass. He also has chronic obstructive pulmonary disease chronic tobacco dependence, hypertension, hyperlipidemia, coronary artery disease with previous stent placement, ischemic cardiomyopathy. He was seen here last in May 2023 for suspected lung infection he had cavitary lesion in the right upper lobe and left lower lobe consolidation. Both of those areas were washed during bronchoscopy and sent to the lab. No malignancy was noted. He is currently undergoing radiation treatments and had 3 out of 10 scheduled but ended up back here in the hospital again. Had developed ongoing issues with increasing shortness of breath, cough congestion nausea vomiting diarrhea. He nearly fell at home from weakness. Chest x-ray revealed consolidative process in the left lower lobe again noted compared to previous on 08/28/2023. Additional irregular density in the right suprahilar region. Was also having chest pain and palpitations. A CT scan revealed no evidence for thoracic or abdominal aortic aneurysm or dissection. There was again noted enlarging cavitary mass of the right upper lobe medially. Progressive consolidation of the left lower lobe with less cavitation. Progressive adenopathy. Left hilar mass difficult to exclude. White count 17.6. Hemoglobin 12.7. Platelets 446. INR 1.0. Sodium 128. Potassium 5.0. Bicarb 14. BUN 36. Creatinine 1.34. Glucose 165. Lactic acid 2.7. Troponin negative x 1. Lipase 111. Is been initiated on Levaquin. He was found to be quite hypotensive. He has received 3-1/2 L of fluid. He is initiated on norepinephrine at 0.2 g/kg/min. He has normal saline at 130 MLS per hour. He is seen today in consultation in the intensive care unit. He is awake and alert in no acute distress. He is maintaining O2 saturations in the mid 90s on 3 L/min per nasal cannula. He afebrile. He remains tachycardic. The patient is seen today September 07, 2023 in follow-up in the intensive care unit. He is awake and alert in no acute distress. He is maintaining O2 saturations in the 90s on 3 L/min per nasal cannula. He has normal saline at 130 MLS per hour. He remains on norepinephrine at 3 mcg/min. He did have stool for occult blood positive. His heparin drip was placed on hold. His procalcitonin was 7.87. He is currently on vancomycin and cefepime. Blood and sputum cultures pending. White count 19.1. Hemoglobin 10.3. Platelets 404. INR 1.1. Sodium 133. Potassium 4.7. Bicarb 20. BUN 24. Creatinine 1.05. Glucose 93. Tropo nadir 0.062. Cortisol level is pending. Chest x-ray continues to reveal left lower lobe consolidation as well as right suprahilar opacity. The patient is seen today September 08, 2023 in follow-up in the intensive care unit. He is awake and alert in no acute distress. He is maintaining O2 saturations in the 90s on 2 L/min per nasal cannula. He has normal saline at 120 MLS per hour. His norepinephrine has been off since 4 AM. Mean arterial pressure in the 70s currently. Blood cultures pending. Sputum culture pending. White count 10.5. Hemoglobin 9.3. Platelets 322. Sodium 132. Potassium 4.4. Bicarb 22. BUN 11. Creatinine 0.71. He remains on DuoNeb inhalations. Antibiotics in the form of vancomycin and cefepime. Lovenox for DVT prophylaxis. The patient is seen to today September 09, 2023 in follow-up on the regular medical floor. He is currently sitting up in bed. Awake and alert in no acute distress. He is maintaining O2 saturations in the 90s on 2 L/min per nasal cannula. Blood cultures revealed no growth. Sputum culture revealed no growth. White count 8.8. Hemoglobin 8.6. Platelets 276. Sodium 131. Potassium 4.0. Bicarb 23. BUN 9. Creatinine 0.62. Glucose 90. He is continued on DuoNeb inhalations. Antibiotics in the form of vancomycin and cefepime. Lovenox for DVT prophylaxis. He remains on normal saline at 120 MLS per hour. He is eating and drinking well. The patient is seen today September 10, 2023 in follow-up on the regular medical floor. He is currently resting comfortably in bed. Awake and alert in no acute distress. Maintaining O2 saturations in the 90s on 2 L/min per nasal cannula. No IV fluids. He remains on Omnicef and Flagyl. His procalcitonin was 7.87. He continues with a loose productive cough of some slightly yellow sputum. He remains on DuoNeb inhalations. Tessalon Perles. Lovenox for DVT prophylaxis. Blood cultures revealed no growth. Sputum culture revealed no growth. No new labs today. Objective - Vital Signs Vital signs: Vital Signs Temp 98.6 F 09/10/23 07:01 Pulse 80 09/10/23 08:31 Resp 15 09/10/23 07:01 BP 121/71 09/10/23 07:01 Pulse Ox 95 09/10/23 08:24 FiO2 Intake & Output 09/09/23 09/10/23 09/10/23 18:59 06:59 18:59 Intake Total 2780 Balance 2780 Weight 66.224 kg Intake: Oral 2780 Other: Voiding Method Toilet Toilet # Voids 1 - Exam GENERAL EXAM: Awake 62-year-old male, on 2 L nasal cannula, in no apparent distress. HEAD: Normocephalic. EYES: Normal reaction of pupils, equal size. NOSE: Clear with pink turbinates. THROAT: No erythema or exudates. NECK: No masses, no JVD. CHEST: No chest wall deformity. LUNGS: Equal air entry with bilateral scattered rhonchi. CVS: S1 and S2 normal with no audible murmur, regular rhythm. ABDOMEN: No hepatosplenomegaly, normal bowel sounds, no guarding or rigidity. SPINE: No scoliosis or deformity SKIN: No rashes CENTRAL NERVOUS SYSTEM: No focal deficits, tone is normal in all 4 extremities. EXTREMITIES: There is no peripheral edema. No clubbing, no cyanosis. Peripheral pulses are intact. - Labs CBC & Chem 7: 09/09/23 06:55 09/09/23 06:55 Labs: Abnormal Lab Results - Last 24 Hours (Table) 09/09/23 Range/Units 06:55 Iron 22 L (65-175) UG/DL TIBC 164 L (228-460) UG/DL % Saturation 13.41 L (15.00-50.00) Transferrin 117.0 L (204.0-354.0) mg/dL Ferritin 480.0 H (22.0-322.0) ng/mL Microbiology - Last 24 Hours (Table) 09/06/23 09:35 Blood Culture - Preliminary Blood 09/06/23 09:50 Blood Culture - Preliminary Blood 09/06/23 22:53 Gram Stain - Final Sputum Sputum Culture - Final Assessment and Plan Assessment: Generalized weakness secondary to nausea, vomiting, diarrhea Acetone positive, suspect starvation ketosis Hypotension secondary to above, recovered and currently off pressors Acute kidney injury secondary to dehydration Hyponatremia secondary to above, improving Hyperkalemia secondary to above, improved Leukocytosis, improved Troponin leak GI bleed, stool for occult blood positive. Heparin drip on hold Metastatic squamous cell carcinoma, likely with disease progression. A CT scan today revealed no evidence for thoracic or abdominal aortic aneurysm or dissection. There was again noted enlarging cavitary mass of the right upper lobe medially. Progressive consolidation of the left lower lobe with less cavitation. Progressive adenopathy. Left hilar mass difficult to exclude. The patient had received 3 recent radiation treatments to complete 10. The patient has been in and out of the hospital and no consistent treatment lately. Bronch oscopy in May 2023 of the right upper lobe and left lower lobe washings revealed no evidence of malignancy Acute hypoxic respiratory failure secondary to above Chronic anemia, current hemoglobin 8.6 History of hypertension History of hyperlipidemia History of coronary artery disease with previous PCI/stent History of ischemic cardiomyopathy, most recent echocardiogram available from 08/27/2022 estimates an impaired left ventricular systolic ejection fraction of 35% though new echocardiogram from 09/07/2023 reveals a normal ejection fraction of 55 to 60%. Chronic obstructive pulmonary disease, stable Former tobacco dependance History of ocular herpes, on valacyclovir outpatient History of atrial fibrillation, was on amiodarone and Eliquis in the outpatient setting Plan: The patient was seen and evaluated Medications reviewed Remains on bronchodilators Omnicef and Flagyl per ID service Lovenox for DVT prophylaxis Added a Medrol Dosepak Continue Tessalon Perles He is cleared for discharge from the pulmonary standpoint This patient was seen independently by the pulmonary nurse practitioner addressing pulmonary issues I have personally seen and examined the patient, performed the documentation and the assessment and plan as written. Number of minutes spent on the visit: 22.
--- NOTE | 2023-09-10 12:36 | P.PN ---
Subjective Progress Note Date: 09/10/23 62 year old M with PMH of lung CA with history of lung abscess, COPD with intermittent home O2, CAD with stents, h/o SVT, HTN, HLD, CHF with previous EF 35-40% presents to the ED for multiple complaints. He reports waking up this morning with a coughing fit. He reports chest pain, stabbing in nature, mid- sternal, worse with deep inspiration that started with the coughing fit. Chest pain is associated with palpitations. When he went to the washroom his legs gave out. He reports feeling nauseated with chronic epigastric pain since initiating chemotherapy. He reports not eating or drinking much for the past week. He complaints of a lump in his throat. He also reports positional lightheadedness. He feels short of breath with ambulation since starting chemotherapy and radiation. His last radiation treatment was yesterday with Dr. Shearer. Chemotherapy has been put on hold for the past few months by Dr. Hoyos while he recovered from his known lung abscess. He denies any headache, lower extremity edema, fever or chills, changes in urination or bowel habits. In the ED he underwent extensive evaluation. BP 67/47 HR 133, T 99.2F, with periods of desaturation into the 80s while on 2L NC. CBC, Coag panel, CMP significant for WBC 17.6, Hg 12.7, Na 128, Cl 97, bicarb 14, BUN 36, Cr 1.34, glu 165, Ca 10.6, alk phos 152. Lactic acid 2.7. Troponin < 0.012. Lipase 111. EKG sinus tachycardia with PVCs. CT thorax enlarging cavitary mass right upper lobe medially, progressive left lower lobe with less cavitation and progressive adenopathy. He was given a dose of Levaquin and NS bolus and admitted to ICU for need for pressors. Patient was given 3.5L NS bolus and started on maintenance fluids along with norepinephrine drip and admitted to ICU. Initially started on Levaquin for treatment of lung abscess, ID consulted, antibiotics switched to Vancomycin and Cefepime. Troponins trending < 0.012, 0.1, 0.062 thus Eliquis discontinued and patient started on Heparin drip. Stool occult came back positive and heparin drip was put on hold. Levophed was weaned off 09/07. 09/07 Patient was seen and examined. Sharp stabbing chest pain with cough. CBC RBC 3.26, Hg 9.3, Hct 29.2. BMP Na 132. RSV/Flu/COVID negative. Antibiotics include Vancomycin (D3) and Cefepime (D3). Heparin drip put on hold. Levophed weaned off early this morning. Echo shows EF 55-60%. BCx negative so far. Sputum Cx no PMN with rare G+ cocci and G- bacilli. 09/08 Patient was seen and examined. Coughing up sputum. Sputum Cx shown normal jennifer. CBC RBC 3.11, Hg 8.6, Hct 28.2. BMP Na 131, Cr 0.62. Vanc trough 15.3. 09/09 Patient was seen and examined. Coughing up sputum. Rad-Onc evaluated the patient believes post obstructive pneumonia. Pulmonary has cleared the patient for discharge. Antibiotics have been switched to Cefdinir and Flagyl by ID. Patient states that is is too weak and short of breath to go home. We will have PT and OT evaluate the patient for possible SNF versus home. General: Non toxic, mild distress, cachectic Derm: Warm, dry Head: Atraumatic, normocephalic, symmetric Eyes: EOMI, no lid lag, anicteric sclera Mouth: No lip lesion, mucus membranes moist Cardiovascular: S1S2 reg, no murmur Lungs: Decreased BS bilateral, no rhonchi, no rales, no accessory muscle use Abdominal: Soft, TTP in all 4 quadrants worse in the epigastric region without rebound, no guarding, no appreciable organomegaly Ext: No gross muscle atrophy, no edema, no contractures Neuro: no focal neuro deficits Psych: Alert, oriented, appropriate affect Based on my assessment of this patient, this patient meets a high complexity l evel of care. Sepsis likely due to lung abscess: Shock resolved. Status post 3.5L NS bolus in the ED and ICU. DC IVF and encourage hydration by mouth. CT with findings of lung abscess. ID recommends Cefdinir 300 mg PO BID and Flagyl 500 mg PO TID. DC Lisinopril and Aldactone on discharge. Pro-rafita elevated. Legionella Ag negative. UA negative nitrite or LE. COVID/RSV/Flu negative. Echo unrevealing. Sputum Cx, BCx negative so far. Telemetry monitoring. Tylenol 650 mg PO Q6H PRN for fever. ID and Pulmonary on board. Acute hypoxic respiratory failure likely due to above History of SVT: Amiodarone 200 mg PO QD. Metoprolol as below. NSTEMI: Likely Type 2. Pleuritic. Likely related to lung abscess. Troponin < 0.012, 0.1, 0.062. Echo as above. Heparin drip put on hold. ASA 81 mg PO QD and Lipitor 80 mg PO QHS. Metoprolol 12.5 mg PO BID. Cardiology on board. Epigastric pain with + stool occult: With nausea and vomiting. Possible gastritis. No abnormalities in the abdomen/pelvis seen on thorax CT. Protonix 40 mg IV QD. Resolved: Lactic acidosis, High anion gap metabolic acidosis, shock, HypoNa, NEETA CODE STATUS: FULL CODE DVT Prophylaxis: Lovenox SQ GI Prophylaxis: Protonix IV Designated medical POA if patient is not able to make medical decisions for themselves: I have reviewed the following new home sales consultant notes: Pulmonary note. I have reviewed the results of the following tests: I have ordered the following tests: I have discussed the care of this patient with the following independent historian: RN I have independently interpreted the following test below: I have discussed the management of this patient with the following physician: Objective - Vital Signs Vital signs: Vital Signs Temp 98.6 F 09/10/23 07:01 Pulse 80 09/10/23 12:04 Resp 15 09/10/23 08:50 BP 121/71 09/10/23 07:01 Pulse Ox 95 09/10/23 08:24 FiO2 Intake & Output 09/09/23 09/10/23 09/10/23 18:59 06:59 18:59 Intake Total 2780 480 Output Total 25 Balance 2780 455 Weight 66.224 kg Intake: Oral 2780 480 Output: Stool 25 Other: Voiding Method Toilet Toilet Toilet # Voids 1 - Labs CBC & Chem 7: 09/09/23 06:55 09/09/23 06:55 Labs: Abnormal Lab Results - Last 24 Hours (Table) 09/09/23 Range/Units 06:55 Iron 22 L (65-175) UG/DL TIBC 164 L (228-460) UG/DL % Saturation 13.41 L (15.00-50.00) Transferrin 117.0 L (204.0-354.0) mg/dL Ferritin 480.0 H (22.0-322.0) ng/mL Microbiology - Last 24 Hours (Table) 09/06/23 09:35 Blood Culture - Preliminary Blood 09/06/23 09:50 Blood Culture - Preliminary Blood 09/06/23 22:53 Gram Stain - Final Sputum Sputum Culture - Final
--- NOTE | 2023-09-10 13:26 | P.PN ---
Subjective Progress Note Date: 09/10/23 This is a 62-year-old gentleman with a past medical history significant for CAD as well as hypertension and dyslipidemia and history of lung cancer who was admitted to the hospital with abdominal discomfort. He was found to have mildly elevated troponin. On examination he did have a rigid abdomen/surgical abdomen but CT scan of the abdomen and pelvis and chest did not show any acute abnormalities. September 07, 2023 The patient was seen and evaluated this morning. He is overall feeling better but he still have tenderness in the abdomen. The troponin is mildly elevated. The CT scan as described above. He is unstable requiring small dose of norepinephrine. He is in process of having an echocardiogram with Doppler later on today. Currently is not experiencing any symptoms of chest pain or chest discomfort. He did have an episode of SVT last night and currently is on amiodarone. I am going to add small dose of metoprolol to 12.5 mg p.o. twice daily to the current medical regimen we will hold heparin in the light of possible GI bleeding. The examination is remarkable for regular rhythm with soft systolic murmur and clear breathing sounds bilaterally and tender abdomen with no edema was noted September 08, 2023 The patient was seen and evaluated this morning. He is asymptomatic from a ca rdiovascular standpoint of view and he is hemodynamically stable. He is in sinus mechanism with no more episode of SVT noted. The echo showed normal LV systolic function with no evidence of wall motion abnormalities. From the cardiac standpoint of view I will continue the current medical regimen. No need for any invasive workup at this point. Examination is remarkable for regular rhythm with a soft systolic murmur and clear breathing sounds bilaterally and no edema was noted September 10, 2023 The patient was seen and evaluated this morning but he is asymptomatic from the cardiovascular standpoint of view and he is also hemodynamically stable. He is on amiodarone. Examination is remarkable for regular rhythm with diminished breathing sounds bilaterally and no edema was noted in the lower extremities Assessment Abdominal discomfort which has somewhat improved Tenderness in the abdomen. Acute surgical abdomen has been ruled out Coronary artery disease Evidence of myocardial injury SVT Plan Continue current medical regimen Possible discharge in next 12 to 24 hours Objective - Vital Signs Vital signs: Vital Signs Temp 98.6 F 09/10/23 07:01 Pulse 80 09/10/23 12:04 Resp 15 09/10/23 08:50 BP 121/71 09/10/23 07:01 Pulse Ox 95 09/10/23 08:24 FiO2 Intake & Output 09/09/23 09/10/23 09/10/23 18:59 06:59 18:59 Intake Total 2780 480 Output Total 25 Balance 2780 455 Weight 66.224 kg Intake: Oral 2780 480 Output: Stool 25 Other: Voiding Method Toilet Toilet Toilet # Voids 1 - Labs CBC & Chem 7: 09/09/23 06:55 09/09/23 06:55 Labs: Abnormal Lab Results - Last 24 Hours (Table) 09/09/23 Range/Units 06:55 Iron 22 L (65-175) UG/DL TIBC 164 L (228-460) UG/DL % Saturation 13.41 L (15.00-50.00) Transferrin 117.0 L (204.0-354.0) mg/dL Ferritin 480.0 H (22.0-322.0) ng/mL Microbiology - Last 24 Hours (Table) 09/06/23 09:35 Blood Culture - Preliminary Blood 09/06/23 09:50 Blood Culture - Preliminary Blood
--- NOTE | 2023-09-10 14:54 | P.PN ---
Subjective Progress Note Date: 09/10/23 Principal diagnosis: Reason for follow-up is sepsis and pneumonia Patient is a 62-year-old male with a past medical history significant for coronary disease hypertension hyperlipidemia, squamous cell carcinoma of the left midline patient also have admission in May 2023 concerning for possible cavitating pneumonia abscess sputum was positive for MSSA patient now presented to hospital with increasing shortness of breath cough patient was noted to be septic possibly due to pneumonia CT did shows enlarging cavitary mass right upper lobe with immediately progressive consolidation left lower lobe prompting this consultation. On today's evaluation that is 09/10/2023,the patient denies any fever or any chills, patient is breathing comfortably on 2 L current oxygen the patient denies chest pain shortness of breath still having significant cough and bring up some purulent sputum, patient denies abdominal pain, no nausea vomiting or diarrhea. No new labs were obtained today blood sputum culture negative Objective - Vital Signs Vital signs: Vital Signs Temp 98.6 F 09/10/23 07:01 Pulse 79 09/10/23 08:50 Resp 15 09/10/23 08:50 BP 121/71 09/10/23 07:01 Pulse Ox 95 09/10/23 08:24 FiO2 Intake & Output 09/09/23 09/10/23 09/10/23 18:59 06:59 18:59 Intake Total 2780 480 Output Total 25 Balance 2780 455 Weight 66.224 kg Intake: Oral 2780 480 Output: Stool 25 Other: Voiding Method Toilet Toilet Toilet # Voids 1 - Exam GENERAL DESCRIPTION: Middle-age male lying in bed in no distress RESPIRATORY SYSTEM: Unlabored breathing , coarse breath sounds no wheeze HEART: S1 S2 regular rate and rhythm , ABDOMEN: Soft , no tenderness EXTREMITIES: No edema feet - Labs CBC & Chem 7: 09/09/23 06:55 09/09/23 06:55 Labs: Abnormal Lab Results - Last 24 Hours (Table) 09/09/23 Range/Units 06:55 Iron 22 L (65-175) UG/DL TIBC 164 L (228-460) UG/DL % Saturation 13.41 L (15.00-50.00) Transferrin 117.0 L (204.0-354.0) mg/dL Ferritin 480.0 H (22.0-322.0) ng/mL Microbiology - Last 24 Hours (Table) 09/06/23 09:35 Blood Culture - Preliminary Blood 09/06/23 09:50 Blood Culture - Preliminary Blood 09/06/23 22:53 Gram Stain - Final Sputum Sputum Culture - Final Assessment and Plan (1) Sepsis Current Visit: Yes Status: Acute Code(s): A41.9 - SEPSIS, UNSPECIFIED ORGANISM SNOMED Code(s): 51358614 (2) Penicillin allergy Current Visit: Yes Status: Acute Code(s): Z88.0 - ALLERGY STATUS TO PENICILLIN SNOMED Code(s): 94812271 (3) Pneumonia Current Visit: Yes Status: Acute Priority: High Code(s): J18.9 - PNEUMONIA, UNSPECIFIED ORGANISM SNOMED Code(s): 432309869 Plan: 1patient presented to hospital with sepsis in this patient who did have low- grade fever tachycardia elevated white count source is likely pneumonia with evidence of worsening cavitation to the right upper lobe medially and c onsolidation of the left lower lobe with concern for possible resistant gram- positive or gram-negative pathogen as the patient has been out of the hospital and did have previous history of MSSA pneumonia 2-penicillin allergy that will limit number of antibiotics safe to use 3-sputum culture has been negative for any resistant pathogen 4-patient to continue with oral Omnicef and Flagyl concern for possible postobstructive pneumonia and monitor clinical course closely Dictation was produced using [employer] dictation software. please excuse any grammatical, word or spelling errors. Time with Patient: Less than 30
[2023-09-11] MEDS ORDERED: VANCOMYCIN TROUGH DUE 1 EACH MISC MISCELLANE ONE (07:00)
--- NOTE | 2023-09-11 11:08 | P.DS ---
Providers Date of admission: 09/06/23 10:11 Expected date of discharge: 09/11/23 Attending physician: Puneet Leon MD Consults: 09/06/23 10:10 Consult Physician Stat Consulting Provider: Anastacio Braga Consult Reason/Comments: icu patient Do you want consulting provider notified?: Yes 09/06/23 10:11 Consult Physician Stat Consulting Provider: Robb Ardon Consult Reason/Comments: abnormal ekg Do you want consulting provider notified?: Already Contacted 09/06/23 12:49 Consult Physician Stat Consulting Provider: Vilma Ruiz Consult Reason/Comments: sepsis, lung abscess Do you want consulting provider notified?: Yes 09/09/23 08:28 Consult Physician Routine Consulting Provider: Juan Carlos Hoyos Consult Reason/Comments: lung ca Do you want consulting provider notified?: Yes 09/09/23 13:49 Consult Physician Routine Consulting Provider: Darius Shearer Consult Reason/Comments: known, undergoing RT Do you want consulting provider notified?: Already Contacted Primary care physician: Eduardo Parsons MD Hospital Course: 62 year old M with PMH of lung CA with history of lung abscess, COPD with intermittent home O2, CAD with stents, h/o SVT, HTN, HLD, CHF with previous EF 35-40% presents to the ED for multiple complaints. He reports waking up this morning with a coughing fit. He reports chest pain, stabbing in nature, mid- sternal, worse with deep inspiration that started with the coughing fit. Chest pain is associated with palpitations. When he went to the washroom his legs gave out. He reports feeling nauseated with chronic epigastric pain since initiating chemotherapy. He reports not eating or drinking much for the past week. He complaints of a lump in his throat. He also reports positional lightheadedness. He feels short of breath with ambulation since starting chemotherapy and radiation. His last radiation treatment was yesterday with Dr. Shearer. Chemotherapy has been put on hold for the past few months by Dr. Hoyos while he recovered from his known lung abscess. He denies any headache, lower extremity edema, fever or chills, changes in urination or bowel habits. In the ED he underwent extensive evaluation. BP 67/47 HR 133, T 99.2F, with periods of desaturation into the 80s while on 2L NC. CBC, Coag panel, CMP significant for WBC 17.6, Hg 12.7, Na 128, Cl 97, bicarb 14, BUN 36, Cr 1.34, glu 165, Ca 10.6, alk phos 152. Lactic acid 2.7. Troponin < 0.012. Lipase 111. EKG sinus tachycardia with PVCs. CT thorax enlarging cavitary mass right upper lobe medially, progressive left lower lobe with less cavitation and progressive adenopathy. He was given a dose of Levaquin and NS bolus and admitted to ICU for need for pressors. Patient was given 3.5L NS bolus and started on maintenance fluids along with norepinephrine drip and admitted to ICU. Initially started on Levaquin for treatment of lung abscess, ID consulted, antibiotics switched to Vancomycin and Cefepime. Troponins trending < 0.012, 0.1, 0.062 thus Eliquis discontinued and patient started on Heparin drip. Stool occult came back positive and heparin drip was put on hold. Levophed was weaned off 09/07. ID transitioned the patient to Cefdinir and Flagyl. 09/10 Patient was seen and examined. Coughing up sputum. Breathing improved. Reports weakness but adamantly refuses SNF. Reports pain in his left eye, relates this to Herpes Zoster infection he was previously treated for with Valtrex and Trifluridine eye drops. Plans for discharge home today. Advised to continue ASA and Eliquis. Metoprolol dose decreased to 12.5 mg PO BID. Amiodarone dose reduced to 200 mg PO QD. Discussed with Dr. Ruiz, complete 10 days of Cefdinir 300 mg PO BID and Flagyl 500 mg PO TID. Will also prescribe Mucinex x 7 days and Medrol dose pack. 10 days of Valtrex 500 mg PO TID and Trifluridine eye drops prescribed. Follow up within PCP within 1-2 days, Oncology/Pulmonary/Cardiology within 1 week of discharge. General: Non toxic, mild distress, cachectic Derm: Warm, dry Head: Atraumatic, normocephalic, symmetric Eyes: EOMI, no lid lag, anicteric sclera Mouth: No lip lesion, mucus membranes moist Cardiovascular: S1S2 reg, no murmur Lungs: Decreased BS bilateral, no rhonchi, no rales, no accessory muscle use Abdominal: Soft, TTP in all 4 quadrants worse in the epigastric region without rebound (improved from admission), no guarding, no appreciable organomegaly Ext: No gross muscle atrophy, no edema, no contractures Neuro: no focal neuro deficits Psych: Alert, oriented, appropriate affect Discharge Diagnosis: Herpes Zoster infection Sepsis likely due to lung abscess versus post obstructive PNA Acute hypoxic respiratory failure likely due to above History of SVT Type 2 NSTEMI Epigastric pain with + stool occult likely related to gastritis Resolved: Lactic acidosis, High anion gap metabolic acidosis, shock, HypoNa, NEETA This complex discharge took 35 minutes to complete. Patient Condition at Discharge: Stable Plan - Discharge Summary Discharge Rx Participant: Yes New Discharge Prescriptions: New Aspirin 81 mg PO DAILY #30 tab Metoprolol Tartrate [Lopressor] 12.5 mg PO BID #60 tab methylPREDNISolone Dose Pack [Medrol Dose Pack] 4 mg PO DIRECTED #1 packet guaiFENesin [Mucinex] 1,200 mg PO Q12HR #28 tab valACYclovir HCL [Valtrex] 500 mg PO TID #30 tab Trifluridine 1% Ophth Soln [Viroptic 1% Ophth Soln] 1 drops LEFT EYE Q2HR #7.5 ml Amiodarone [Cordarone] 200 mg PO DAILY #30 tab metroNIDAZOLE [Flagyl] 500 mg PO TID #30 tab Cefdinir [Omnicef] 300 mg PO BID #20 cap Benzonatate [Tessalon Perles] 100 mg PO TID #90 cap Continue Spiriva Respimat 1.25mcg/Actuation Mist 2 puff INHALATION RT-HS #0 Albuterol Inhaler [Ventolin Hfa Inhaler] 1 - 2 puff INHALATION RT-Q6H PRN PRN Reason: Shortness Of Breath Pantoprazole [Protonix] 40 mg PO DAILY 30 Days #30 tab Atorvastatin [Lipitor] 80 mg PO HS Hydrocodone/Acetaminophen [Hydrocodone/Acetaminophen 10-300 mg] 1 tab PO QID PRN PRN Reason: PAIN Magnesium Oxide [Mag-Ox] 400 mg PO DAILY 30 Days #30 tab Apixaban [Eliquis] 5 mg PO BID 30 Days #60 tab Discontinued Dapagliflozin Propanediol [Farxiga] 10 mg PO DAILY #30 tab Spironolactone [Aldactone] 50 mg PO DAILY lisinopriL [Zestril] 20 mg PO DAILY Metoprolol Tartrate [Lopressor] 25 mg PO BID Amiodarone [Cordarone] See Taper PO BID 30 Days #58 tab Discharge Medication List Atorvastatin [Lipitor] 80 mg PO HS 03/04/21 [History] Spiriva Respimat 1.25mcg/Actuation Mist 2 puff INHALATION RT-HS #0 09/01/22 [Rx] Albuterol Inhaler [Ventolin Hfa Inhaler] 1 - 2 puff INHALATION RT-Q6H PRN 06/06/23 [History] Hydrocodone/Acetaminophen [Hydrocodone/Acetaminophen 10-300 mg] 1 tab PO QID PRN 06/06/23 [History] Magnesium Oxide [Mag-Ox] 400 mg PO DAILY 30 Days #30 tab 08/31/23 [Rx] Amiodarone [Cordarone] 200 mg PO DAILY #30 tab 09/11/23 [Rx] Apixaban [Eliquis] 5 mg PO BID 30 Days #60 tab 09/11/23 [Rx] Aspirin 81 mg PO DAILY #30 tab 09/11/23 [Rx] Benzonatate [Tessalon Perles] 100 mg PO TID #90 cap 09/11/23 [Rx] Cefdinir [Omnicef] 300 mg PO BID #20 cap 09/11/23 [Rx] Metoprolol Tartrate [Lopressor] 12.5 mg PO BID #60 tab 09/11/23 [Rx] Pantoprazole [Protonix] 40 mg PO DAILY 30 Days #30 tab 09/11/23 [Rx] Trifluridine 1% Ophth Soln [Viroptic 1% Ophth Soln] 1 drops LEFT EYE Q2HR #7.5 ml 09/11/23 [Rx] guaiFENesin [Mucinex] 1,200 mg PO Q12HR #28 tab 09/11/23 [Rx] methylPREDNISolone Dose Pack [Medrol Dose Pack] 4 mg PO DIRECTED #1 packet 09/11/23 [Rx] metroNIDAZOLE [Flagyl] 500 mg PO TID #30 tab 09/11/23 [Rx] valACYclovir HCL [Valtrex] 500 mg PO TID #30 tab 09/11/23 [Rx] Follow up Appointment(s)/Referral(s): Mary Lou Farfan NPC [Nurse Practitioner] - 09/19/23 1:00 pm Robb Ardon MD [STAFF PHYSICIAN] - 1 Week Eduardo Parsons MD [Primary Care Provider] - 1-2 days Anastacio Braga DO [Doctor of Osteopathic Medicine] - 1 Week Discharge Disposition: HOME SELF-CARE
--- NOTE | 2023-09-11 11:18 | P.PN ---
Subjective Progress Note Date: 09/11/23 This is a 62-year-old male patient with a known history of squamous cell lung cancer and left midlung mass. He also has chronic obstructive pulmonary disease chronic tobacco dependence, hypertension, hyperlipidemia, coronary artery disease with previous stent placement, ischemic cardiomyopathy. He was seen here last in May 2023 for suspected lung infection he had cavitary lesion in the right upper lobe and left lower lobe consolidation. Both of those areas were washed during bronchoscopy and sent to the lab. No malignancy was noted. He is currently undergoing radiation treatments and had 3 out of 10 scheduled but ended up back here in the hospital again. Had developed ongoing issues with increasing shortness of breath, cough congestion nausea vomiting diarrhea. He nearly fell at home from weakness. Chest x-ray revealed consolidative process in the left lower lobe again noted compared to previous on 08/28/2023. Additional irregular density in the right suprahilar region. Was also having chest pain and palpitations. A CT scan revealed no evidence for thoracic or abdominal aortic aneurysm or dissection. There was again noted enlarging cavitary mass of the right upper lobe medially. Progressive consolidation of the left lower lobe with less cavitation. Progressive adenopathy. Left hilar mass difficult to exclude. White count 17.6. Hemoglobin 12.7. Platelets 446. INR 1.0. Sodium 128. Potassium 5.0. Bicarb 14. BUN 36. Creatinine 1.34. Glucose 165. Lactic acid 2.7. Troponin negative x 1. Lipase 111. Is been initiated on Levaquin. He was found to be quite hypotensive. He has received 3-1/2 L of fluid. He is initiated on norepinephrine at 0.2 g/kg/min. He has normal saline at 130 MLS per hour. He is seen today in consultation in the intensive care unit. He is awake and alert in no acute distress. He is maintaining O2 saturations in the mid 90s on 3 L/min per nasal cannula. He afebrile. He remains tachycardic. The patient is seen today September 07, 2023 in follow-up in the intensive care unit. He is awake and alert in no acute distress. He is maintaining O2 saturations in the 90s on 3 L/min per nasal cannula. He has normal saline at 130 MLS per hour. He remains on norepinephrine at 3 mcg/min. He did have stool for occult blood positive. His heparin drip was placed on hold. His procalcitonin was 7.87. He is currently on vancomycin and cefepime. Blood and sputum cultures pending. White count 19.1. Hemoglobin 10.3. Platelets 404. INR 1.1. Sodium 133. Potassium 4.7. Bicarb 20. BUN 24. Creatinine 1.05. Glucose 93. Tropo nadir 0.062. Cortisol level is pending. Chest x-ray continues to reveal left lower lobe consolidation as well as right suprahilar opacity. The patient is seen today September 08, 2023 in follow-up in the intensive care unit. He is awake and alert in no acute distress. He is maintaining O2 saturations in the 90s on 2 L/min per nasal cannula. He has normal saline at 120 MLS per hour. His norepinephrine has been off since 4 AM. Mean arterial pressure in the 70s currently. Blood cultures pending. Sputum culture pending. White count 10.5. Hemoglobin 9.3. Platelets 322. Sodium 132. Potassium 4.4. Bicarb 22. BUN 11. Creatinine 0.71. He remains on DuoNeb inhalations. Antibiotics in the form of vancomycin and cefepime. Lovenox for DVT prophylaxis. The patient is seen to today September 09, 2023 in follow-up on the regular medical floor. He is currently sitting up in bed. Awake and alert in no acute distress. He is maintaining O2 saturations in the 90s on 2 L/min per nasal cannula. Blood cultures revealed no growth. Sputum culture revealed no growth. White count 8.8. Hemoglobin 8.6. Platelets 276. Sodium 131. Potassium 4.0. Bicarb 23. BUN 9. Creatinine 0.62. Glucose 90. He is continued on DuoNeb inhalations. Antibiotics in the form of vancomycin and cefepime. Lovenox for DVT prophylaxis. He remains on normal saline at 120 MLS per hour. He is eating and drinking well. The patient is seen today September 10, 2023 in follow-up on the regular medical floor. He is currently resting comfortably in bed. Awake and alert in no acute distress. Maintaining O2 saturations in the 90s on 2 L/min per nasal cannula. No IV fluids. He remains on Omnicef and Flagyl. His procalcitonin was 7.87. He continues with a loose productive cough of some slightly yellow sputum. He remains on DuoNeb inhalations. Tessalon Perles. Lovenox for DVT prophylaxis. Blood cultures revealed no growth. Sputum culture revealed no growth. No new labs today. The patient is seen today September 11, 2023 in follow-up on the regular medical floor. He is sitting up in bed. Awake and alert in no acute distress. Maintaining good O2 saturations in the 90s on 2 L/min per nasal cannula. He is feeling better today compared to yesterday. He is continued on Omnicef and Flagyl. Is continued on DuoNeb ventilations and Tessalon Perles. Lovenox for DVT prophylaxis. Sputum culture revealed no growth. Blood cultures revealed no growth. Objective - Vital Signs Vital signs: Vital Signs Temp 98.3 F 09/11/23 07:11 Pulse 83 09/11/23 08:40 Resp 15 09/11/23 08:40 BP 121/76 09/11/23 07:11 Pulse Ox 98 09/11/23 08:17 FiO2 Intake & Output 09/10/23 09/11/23 09/11/23 18:59 06:59 18:59 Intake Total 2059 Output Total 25 25 Balance 2034 Weight 66.224 kg Intake: Oral 2059 Output: Stool 25 25 Other: Voiding Method Toilet Toilet Toilet # Voids 5 2 - Exam GENERAL EXAM: Awake 62-year-old male, sitting up in bed, comfortable on 2 L nasal cannula, in no apparent distress. HEAD: Normocephalic. EYES: Normal reaction of pupils, equal size. NOSE: Clear with pink turbinates. THROAT: No erythema or exudates. NECK: No masses, no JVD. CHEST: No chest wall deformity. LUNGS: Equal air entry with bilateral scattered rhonchi. CVS: S1 and S2 normal with no audible murmur, regular rhythm. ABDOMEN: No hepatosplenomegaly, normal bowel sounds, no guarding or rigidity. SPINE: No scoliosis or deformity SKIN: No rashes CENTRAL NERVOUS SYSTEM: No focal deficits, tone is normal in all 4 extremities. EXTREMITIES: There is no peripheral edema. No clubbing, no cyanosis. Peripheral pulses are intact. - Labs CBC & Chem 7: 09/09/23 06:55 09/09/23 06:55 Assessment and Plan Assessment: Generalized weakness secondary to nausea, vomiting, diarrhea. Improved Acetone positive, suspect starvation ketosis Hypotension secondary to above, recovered and currently off pressors Acute kidney injury secondary to dehydration Hyponatremia secondary to above, improving Hyperkalemia secondary to above, improved Leukocytosis, improved Troponin leak GI bleed, stool for occult blood positive. Heparin drip on hold Metastatic squamous cell carcinoma, likely with disease progression. A CT scan today revealed no evidence for thoracic or abdominal aortic aneurysm or dissection. There was again noted enlarging cavitary mass of the right upper lobe medially. Progressive consolidation of the left lower lobe with less cavitation. Progressive adenopathy. Left hilar mass difficult to exclude. The patient had received 3 recent radiation treatments to complete 10. The patient has been in and out of the hospital and no consistent treatment lately. Bronchoscopy in May 2023 of the right upper lobe and left lower lobe washings revealed no evidence of malignancy Acute hypoxic respiratory failure secondary to above Chronic anemia History of hypertension History of hyperlipidemia History of coronary artery disease with previous PCI/stent History of ischemic cardiomyopathy, most recent echocardiogram available from 08/27/2022 estimates an impaired left ventricular systolic ejection fraction of 35% though new echocardiogram from 09/07/2023 reveals a normal ejection fraction of 55 to 60%. Chronic obstructive pulmonary disease, stable Former tobacco dependance History of ocular herpes, on valacyclovir outpatient History of atrial fibrillation, was on amiodarone and Eliquis in the outpatient setting Plan: The patient was seen and evaluated Medications reviewed Remains on bronchodilators, steroids Omnicef and Flagyl per ID service He is cleared for discharge from the pulmonary standpoint This patient was seen independently by the pulmonary nurse practitioner addressing pulmonary issues I have personally seen and examined the patient, performed the documentation and the assessment and plan as written. Number of minutes spent on the visit: 24.
[2023-09-11] MEDS: TRIFLURIDINE 1% OPHTH DROPS 7.5 ML BTL LEFT EYE SCH (11:59)
[2023-09-11] MEDS: valACYclovir HCL 500 MG TAB PO SCH (12:00)
[2023-09-11 15:30] VITALS: TEMP 98.8
[2023-09-11 15:52] VITALS: BP 111/68; PULSE 87; RESP 17
--- NOTE | 2023-09-11 17:08 | P.PN ---
Subjective Progress Note Date: 09/11/23 Principal diagnosis: Reason for follow-up is sepsis and pneumonia Patient is a 62-year-old male with a past medical history significant for coronary disease hypertension hyperlipidemia, squamous cell carcinoma of the left midline patient also have admission in May 2023 concerning for possible cavitating pneumonia abscess sputum was positive for MSSA patient now presented to hospital with increasing shortness of breath cough patient was noted to be septic possibly due to pneumonia CT did shows enlarging cavitary mass right upper lobe with immediately progressive consolidation left lower lobe prompting this consultation. On today's evaluation that is 09/11/2023,the patient remains to be afebrile, patient is on room air not requiring supplemental oxygen and denies any shortness of breath no chest pain still having significant cough and bring up some sputum.Patient denies having any nausea or vomiting, no abdominal pain and no diarrhea has been reported. Patient did not have any new lab draw Objective - Vital Signs Vital signs: Vital Signs Temp 98.3 F 09/11/23 07:11 Pulse 82 09/11/23 12:42 Resp 15 09/11/23 08:40 BP 121/76 09/11/23 07:11 Pulse Ox 98 09/11/23 08:17 FiO2 Intake & Output 09/10/23 09/11/23 09/11/23 18:59 06:59 18:59 Intake Total 2059 Output Total 25 25 Balance 2034 - Weight 66.224 kg Intake: Oral 2059 Output: Stool 25 25 Other: Voiding Method Toilet Toilet Toilet # Voids 5 2 - Exam GENERAL DESCRIPTION: Middle-age male lying in bed in no distress RESPIRATORY SYSTEM: Unlabored breathing , coarse breath sounds no wheeze HEART: S1 S2 regular rate and rhythm , ABDOMEN: Soft , no tenderness EXTREMITIES: No edema feet - Labs CBC & Chem 7: 09/09/23 06:55 09/09/23 06:55 Assessment and Plan (1) Sepsis Status: Acute Code(s): A41.9 - SEPSIS, UNSPECIFIED ORGANISM SNOMED Code(s): 19986625 (2) Penicillin allergy Status: Acute Code(s): Z88.0 - ALLERGY STATUS TO PENICILLIN SNOMED Code(s): 73746963 (3) Pneumonia Status: Acute Priority: High Code(s): J18.9 - PNEUMONIA, UNSPECIFIED ORGANISM SNOMED Code(s): 066797408 Plan: 1patient presented to hospital with sepsis in this patient who did have low- grade fever tachycardia elevated white count source is likely pneumonia with evidence of worsening cavitation to the right upper lobe medially and consolidation of the left lower lobe with concern for possible resistant gram- positive or gram-negative pathogen as the patient has been out of the hospital and did have previous history of MSSA pneumonia 2-penicillin allergy that will limit number of antibiotics safe to use 3-sputum culture has been negative for any resistant pathogen 4-patient did have a subclinical improvement plan is to finish therapy with 10- day course of Oral Omnicef and Flagyl discussed with the admitting team working on discharge Dictation was produced using [employer] dictation software. please excuse any grammatical, word or spelling errors. Time with Patient: Less than 30
[2023-09-13 04:46] LABS: Methylmalonic Acid 0.19 umol/L (<0.40)
--- NOTE | 2023-09-13 18:59 | CDI ---
Documentation Clarification Form Date: 09/13/2023 06:30:42 PM From: Lorraine Hernández Phone: Admit Date: 09/06/2023 10:11:00 AM Patient Name: Fracisco Rene Visit Number: [id number] Discharge Date: 09/11/2023 04:41:00 PM ATTENTION: The Clinical Documentation Specialists (CDI) and [facility] Coding Staff appreciate your assistance in clarifying documentation. Please respond to the clarification below the line at the bottom and electronically sign. The CDI & [facility] Coding staff will review the response and follow-up if needed. Please note: Queries are made part of the Legal Health Record. If you have any questions, please contact the author of this message via ITS. Doctor/Provider: Jerome Sow Your patient has the documented diagnosis of unspecified CHF H&P Note. Additional information regarding the type of CHF is requested. History/Risk Factors: 62yo M, sepsis w shock d/t lung abscess, AHRF, Lt lung CAwith mets to Rt,COPDwith O2,CADwithstents, h/oSVT,HTN,HLD,CHF Clinical Indicators: VS/Pulse OX: 100 Echo Results: LVEF is estimated at 55-60 %. LV cavitysize normal. LV wall thickness normal. No obvious regional wall motionabnormalities. RV not well visualized. Normal RA size. Normal LA size. Structurally normal MV. Trileaflet AV. Structurally normal TV. Structurally normal PV. Nopericardial effusion. Aortic root and proximal ascending aorta not well visualized. Chest X Ray: 09/05 Consolidative process left lower lobe is again noted. Additional irregular densityright suprahilar region seen onCTto reflect cavitarymass. Neoplasm not excluded. Correlate forpneumoniaas well. Treatment: Advised to continue ASA and Eliquis. Metoprolol dose decreased to 12. 5 mg PO BID. Amiodarone dosereducedto 200 mg PO QD. Discussed withDr. Joseph, complete 10 days of Cefdinir 300 mg PO BID and Flagyl 500 mg PO TID. Will also prescribe Mucinex x 7 days and Medrol dosepack. 10 days of Valtrex 500 mg PO TID and Trifluridine eye drops prescribed. Follow up within PCP within 1-2 days, Oncology/Pulmonary/Cardiology within 1 week of discharge. In your professional opinion, can you please clarify the type of CHF if known? [ ] Chronic Systolic Heart Failure (reduced EF) [ ] Chronic Diastolic Heart Failure (preserved EF) [ ] Chronic Systolic & Diastolic Heart Failure [ x ] Other, please specify [ ] Unable to determine (Template Last Revised: March 2020) no CHF MTDD
--- NOTE | 2023-09-13 19:19 | CDI ---
Documentation Clarification Form Date: 09/13/2023 07:02:02 PM From: Lorraine Hernández Phone: Admit Date: 09/06/2023 10:11:00 AM Patient Name: Fracisco Rene Visit Number: [id number] Discharge Date: 09/11/2023 04:41:00 PM ATTENTION: The Clinical Documentation Specialists (CDI) and [facility] Coding Staff appreciate your assistance in clarifying documentation. Please respond to the clarification below the line at the bottom and electronically sign. The CDI & [facility] Coding staff will review the response and follow-up if needed. Please note: Queries are made part of the Legal Health Record. If you have any questions, please contact the author of this message via ITS. Doctor/Provider: Jerome Sow Suspectstarvationketosis is documented 09/07 Progress Note. History/Risk Factors: 62yo M, sepsis w shock d/t lung abscess, AHRF, Lt lung CA with mets to Rt, COPD with O2, CAD with stents, h/o SVT, HTN, HLD, CHF, former smoker Clinical Indicators: Acetone positive, Acetone positive Current BMI: 19.3 He reports not eating or drinking much for the past week. He complaints of alumpin his throat. Also reportingdysphagiasince starting RT, and feels like there is alumpin his throat causing him tovomitwhen eating, and subsequently has been having decreased oral intake. Treatment: Pt eating well but slowly Is there an additional diagnosis that is clinically appropriate for this patient? [ ] Mild Protein-Calorie Malnutrition [ ] Moderate Protein-Calorie Malnutrition [ ] No additional diagnosis/Not clinically significant [ ] Other condition, please specify [ x] Unable to Determine (Template Last Revised: August 2022) MTDD
== END 2023-09-11 16:41 | disposition home or self-care (01) | DRG 720 ==
LOC: EC 08:41 → 2SICU 10:11 → 5NMEDONC 09-08 12:50
PROVIDERS: ADMIT Student in an Organized Health Care Education/Training Program; ATTEND Student in an Organized Health Care Education/Training Program
PROC: 02HV33Z Insertion of Infusion Device into Superior Vena Cava, Percutaneous Approach (ICD-10-PCS; principal; 2023-09-06)
PROC: 3E043XZ Introduction of Vasopressor into Central Vein, Percutaneous Approach (ICD-10-PCS; 2023-09-06)
DX: A41.9 Sepsis, unspecified organism (principal); R65.21 Severe sepsis with septic shock; J85.1 Abscess of lung with pneumonia; J96.01 Acute respiratory failure with hypoxia; I21.A1 Myocardial infarction type 2; N17.9 Acute kidney failure, unspecified; E88.89 Other specified metabolic disorders; C78.01 Secondary malignant neoplasm of right lung; J44.0 Chronic obstructive pulmonary disease with (acute) lower respiratory infection; J44.1 Chronic obstructive pulmonary disease with (acute) exacerbation; I11.0 Hypertensive heart disease with heart failure; C34.32 Malignant neoplasm of lower lobe, left bronchus or lung; I48.0 Paroxysmal atrial fibrillation; E88.A Wasting disease (syndrome) due to underlying condition; E87.1 Hypo-osmolality and hyponatremia; Z99.81 Dependence on supplemental oxygen; D63.0 Anemia in neoplastic disease; E86.0 Dehydration; K29.70 Gastritis, unspecified, without bleeding; I25.10 Atherosclerotic heart disease of native coronary artery without angina pectoris; I25.5 Ischemic cardiomyopathy; E78.5 Hyperlipidemia, unspecified; R13.10 Dysphagia, unspecified; T73.0XXA Starvation, initial encounter; E87.5 Hyperkalemia; R19.5 Other fecal abnormalities; G89.29 Other chronic pain; B02.30 Zoster ocular disease, unspecified; I25.2 Old myocardial infarction; Z86.14 Personal history of Methicillin resistant Staphylococcus aureus infection; Z92.3 Personal history of irradiation; Z92.21 Personal history of antineoplastic chemotherapy; Z95.5 Presence of coronary angioplasty implant and graft; Z87.891 Personal history of nicotine dependence; Z79.84 Long term (current) use of oral hypoglycemic drugs; Z79.899 Other long term (current) drug therapy; Z79.51 Long term (current) use of inhaled steroids; Z79.01 Long term (current) use of anticoagulants; Z88.0 Allergy status to penicillin; Z86.79 Personal history of other diseases of the circulatory system; Z87.01 Personal history of pneumonia (recurrent); Z68.1 Body mass index [BMI] 19.9 or less, adult
CPT/HCPCS: 36415; 36556; 71045; 71046; 71275; 74174; 80048; 80053; 80202; 81001; 82009; 82272; 82533; 82607; 82728; 82747; 82803; 83540; 83550; 83605; 83690; 83735; 83921; 84145; 84484; 85025; 85610; 85730; 86850; 86900; 86901; 87040; 87070; 87205; 87449; 87636; 93005; 93308; 94640; 94667; 94668; 94760; 96365; 96366; 96367; 96375; 99291

== ENCOUNTER → 2023-11-28 | Outpatient (CLI) | payer OTHER ==
--- NOTE | 2023-11-28 12:15 | XR ---
EXAMINATION TYPE: XR chest 2V DATE OF EXAM: 11/28/2023 12:04 PM CLINICAL INDICATION: Male, 62 years old with history of C34.12 Lung ca; COMPARISON: Chest radiographs from 09/07/2023 TECHNIQUE: XR chest 2V Frontal view of the chest. FINDINGS: Lungs/Pleura: New right perihilar airspace opacities. Right upper lung streaky opacities also present . There is no evidence of pleural effusion, or pneumothorax. Pulmonary vascularity: Unremarkable. Heart/mediastinum: Cardiomediastinal silhouette is unremarkable. Musculoskeletal: No acute osseous pathology. Other findings: None IMPRESSION: * Right perihilar airspace opacities correlate for pneumonia. * Right upper lung consolidative changes as seen on prior CTs possibly representing additional site of malignancy given provided history is left upper lung cancer. [facility], , 11/28/2023 12:13 PM
== END | disposition home or self-care (01) ==
LOC: RADXRMAIN 11:40
PROVIDERS: ATTEND Internal Medicine Hematology & Oncology
CPT/HCPCS: 71046

== ENCOUNTER 2023-12-14 13:08 | Inpatient (IN) | payer OTHER ==
[2023-12-14] MEDS: SODIUM CHLORIDE 0.9% 500 ML 500 ML IV STA (13:44)
[2023-12-14] MEDS: methylPREDNISolone SOD SUCCI 125 MG/2 ML VIAL IV STA (13:44)
[2023-12-14] MEDS: AZITHROMYCIN 500 MG in SODIUM CHLORIDE 0.9% 250 ML IVPB STA (13:45)
[2023-12-14 13:49] LABS: Anisocytosis Slight; Basophils % (A) 0 %; Eosinophils % (A) 0 %; HCT 29.7 % (39.0-53.0); HGB 8.9 gm/dL (13.0-17.5); Hypochromasia Marked; Lymphocytes # (A) 0.9 k/uL (1.0-4.8); Lymphocytes % (A) 7 %; MCH 26.9 pg (25.0-35.0); MCHC 30.1 g/dL (31.0-37.0); MCV 89.4 fL (80.0-100.0); Mean Platelet Volume 8.7; Monocytes # (A) 0.7 k/uL (0-1.0); Monocytes % (A) 5 %; Neutrophils # (A) 11.5 k/uL (1.3-7.7); Neutrophils % (A) 86 %; Platelet Count 176 k/uL (150-450); Poikilocytosis Slight; RBC 3.32 m/uL (4.30-5.90); RDW 19.8 % (11.5-15.5); WBC 13.3 k/uL (3.8-10.6)
[2023-12-14] MEDS: ALBUTEROL NEBULIZED 2.5 MG/3 ML INHALATION STA (13:50)
[2023-12-14] MEDS: IPRATROPIUM 0.5 MG/2.5 ML NEBU INHALATION STA (13:50)
[2023-12-14 13:59] LABS: ALT 15 U/L (4-49); AST 24 U/L (17-59); African American GFR (CKD) >90 (>60 ml/min/1.73 sqM); Albumin 3.2 g/dL (3.5-5.0); Alkaline Phosphatase 97 U/L (38-126); Anion Gap 8 mmol/L; Blood Urea Nitrogen 14 mg/dL (9-20); Calcium 8.7 mg/dL (8.4-10.2); Carbon Dioxide 27 mmol/L (22-30); Chloride 99 mmol/L (98-107); Glucose 97 mg/dL (74-99); Non-African American GFR(CKD) >90 (>60 ml/min/1.73 sqM); Potassium 4.7 mmol/L (3.5-5.1); Sodium 134 mmol/L (137-145); Total Bilirubin 0.5 mg/dL (0.2-1.3); Total Protein 6.2 g/dL (6.3-8.2)
[2023-12-14 14:03] LABS: Partial Thromboplastin Time 40.8 sec (22.0-30.0); Prothrombin Time 11.3 sec (10.0-12.5)
--- NOTE | 2023-12-14 14:27 | ED ---
General Adult HPI - General Chief complaint: Shortness of Breath Stated complaint: cough Time Seen by Provider: 12/14/23 13:16 Source: patient, RN notes reviewed, old records reviewed Mode of arrival: wheelchair Limitations: no limitations - History of Present Illness Initial comments: 63-year-old male presenting from the oncologist office for evaluation of cough and dyspnea. Patient has been treated as an outpatient for pneumonia with oral antibiotics. He has not improved despite treatment. He does have history of COPD and reports moderate dyspnea. No measured fever. Patient sent in with failure of outpatient treatment. - Related Data Home Medications Medication Instructions Recorded Confirmed Atorvastatin [Lipitor] 80 mg PO HS 03/04/21 09/06/23 Albuterol Inhaler [Ventolin Hfa 1 - 2 puff INHALATION RT-Q6H PRN 06/06/23 09/06/23 Inhaler] Hydrocodone/Acetaminophen 1 tab PO QID PRN 06/06/23 09/06/23 [Hydrocodone/Acetaminophen 10-300 mg] Previous Rx's Medication Instructions Recorded Spiriva Respimat 1.25mcg/Actuation 2 puff INHALATION RT-HS #0 09/01/22 Mist Magnesium Oxide [Mag-Ox] 400 mg PO DAILY 30 Days #30 tab 08/31/23 Amiodarone [Cordarone] 200 mg PO DAILY #30 tab 09/11/23 Apixaban [Eliquis] 5 mg PO BID 30 Days #60 tab 09/11/23 Aspirin 81 mg PO DAILY #30 tab 09/11/23 Benzonatate [Tessalon Perles] 100 mg PO TID #90 cap 09/11/23 Cefdinir [Omnicef] 300 mg PO BID #20 cap 09/11/23 Metoprolol Tartrate [Lopressor] 12.5 mg PO BID #60 tab 09/11/23 Pantoprazole [Protonix] 40 mg PO DAILY 30 Days #30 tab 09/11/23 Trifluridine 1% Ophth Soln 1 drops LEFT EYE Q2HR #7.5 ml 09/11/23 [Viroptic 1% Ophth Soln] guaiFENesin [Mucinex] 1,200 mg PO Q12HR #28 tab 09/11/23 methylPREDNISolone Dose Pack 4 mg PO DIRECTED #1 packet 09/11/23 [Medrol Dose Pack] metroNIDAZOLE [Flagyl] 500 mg PO TID #30 tab 09/11/23 valACYclovir HCL [Valtrex] 500 mg PO TID #30 tab 09/11/23 Allergies Allergy/AdvReac Type Severity Reaction Status Date / Time Penicillins Allergy Dyspnea & Verified 12/14/23 13:09 Hives all over Review of Systems ROS Statement: Those systems with pertinent positive or pertinent negative responses have been documented in the HPI. ROS Other: All systems not noted in ROS Statement are negative. Past Medical History Past Medical History: Coronary Artery Disease (CAD), Cancer, Chest Pain / Angina, COPD, Hyperlipidemia, Hypertension, Myocardial Infarction ([place]) Additional Past Medical History / Comment(s): SVT with chest pain/palpitations- chemically converted(2023), lung cancer with chemo and radiation Last Myocardial Infarction Date:: 2017 History of Any Multi-Drug Resistant Organisms: MRSA Date of last positivie culture/infection: 12/23/2013 MDRO Source:: Face Past Surgical History: Heart Catheterization With Stent Additional Past Surgical History / Comment(s): I&D of Right inframandibular abscess. 3 cardiac stents, bronchoscopy for abscess Past Anesthesia/Blood Transfusion Reactions: No Reported Reaction Additional Past Anesthesia/Blood Transfusion Reaction / Comment(s): platelet transfusions with no reaction r/t chemo Date of Last Stent Placement:: 2017 Past Psychological History: No Psychological Hx Reported Smoking Status: Former smoker Past Alcohol Use History: None Reported Past Drug Use History: Marijuana - Past Family History Father Family Medical History: No Reported History Additional Family Medical History / Comment(s): Father of "natural causes" at the age of 79yrs. Mother Family Medical History: COPD, Coronary Artery Disease (CAD) Additional Family Medical History / Comment(s): Mother is 76yrs old. She has had several MIs, 6 cardiac stents and a 4 vessel CABG. General Exam Limitations: no limitations General appearance: alert, in no apparent distress Head exam: Present: atraumatic, normocephalic Eye exam: Present: normal appearance, PERRL ENT exam: Present: normal exam Neck exam: Present: normal inspection. Absent: tenderness, meningismus Respiratory exam: Present: wheezes, rhonchi, decreased breath sounds. Absent: respiratory distress Cardiovascular Exam: Present: regular rate, normal rhythm GI/Abdominal exam: Present: soft. Absent: distended, tenderness Extremities exam: Absent: pedal edema Neurological exam: Present: alert, oriented X3 Psychiatric exam: Present: normal affect, depressed Skin exam: Present: warm, dry, intact, pallor Course Vital Signs 12/14/23 12/14/23 12/14/23 13:09 13:35 13:50 Temperature 98.3 F Pulse Rate 88 84 84 Respiratory 20 20 Rate Blood Pressure 102/60 98/64 O2 Sat by Pulse 95 94 L Oximetry 12/14/23 12/14/23 12/14/23 13:57 14:14 14:51 Temperature Pulse Rate 82 86 Respiratory 24 22 Rate Blood Pressure 136/86 O2 Sat by Pulse 96 Oximetry Medical Decision Making - Medical Decision Making Was pt. sent in by a medical professional or institution (, PA, OVERHEAD DOOR TECHNICIAN, urgent care, hospital, or [place] health care facility...) When possible be specific @ -No Did you speak to anyone other than the patient for history (EMS, parent, family, police, friend...)? What history was obtained from this source @ -No Did you review nursing and triage notes (agree or disagree)? Why? @ -I reviewed and agree with nursing and triage notes Were old charts reviewed (outside hosp., previous admission, EMS record, old EKG, old radiological studies, urgent care reports/EKG's, [place] health care facility records)? Report findings @ -No old charts were reviewed Differential Dyspnea: Coronary syndrome, arrhythmia, tamponade, asthma, COPD, pulmonary embolism, pneumonia, pneumothorax, pulmonary effusion, anaphylaxis, diabetic ketoacidosis, flailed chest, pulmonary contusion, diaphragmatic rupture, anemia, neurom uscular, this is not meant to be an all-inclusive list. EKG interpreted by me (3pts min.). @ -Sinus rhythm rate of 84, VT interval 151, QRS duration 107, QTc [address] segment elevation X-rays interpreted by me (1pt min.). @ -X-ray concerning for pneumonia CT interpreted by me (1pt min.). @ -None done U/S interpreted by me (1pt. min.). @ -None done What testing was considered but not performed or refused? (CT, X-rays, U/S, labs)? Why? @ -None What meds were considered but not given or refused? Why? @ -None Did you discuss the management of the patient with other professionals (galilea borges i.e. , PA, OVERHEAD DOOR TECHNICIAN, lab, RT, psych nurse, nephrology social worker, cafeteria or lunchroom checker, teacher, homicide squad commanding officer, case managers)? Give summary @ -Dr. Hoyos and Dr. Willingham Was smoking cessation discussed for >3mins.? @ -No Was critical care preformed (if so, how long)? @ -No Were there social determinants of health that impacted care today? How? (Homelessness, low income, unemployed, alcoholism, drug addiction, kang sportation, low edu. Level, literacy, decrease access to med. care, long term, rehab)? @ -No Was there de-escalation of care discussed even if they declined (Discuss DNR or withdrawal of care, Hospice)? DNR status @ -No What co-morbidities impacted this encounter? (DM, HTN, Smoking, COPD, CAD, Cancer, CVA, ARF, Chemo, Hep., AIDS, mental health diagnosis, sleep apnea, morbid obesity)? @ -None Was patient admitted / discharged? Hospital course, mention meds given and route, prescriptions, significant lab abnormalities, going to OR and other pertinent info. @ -Patient admitted to internal medicine with pulmonology and oncology on consult. Treated for COPD and pneumonia. Undiagnosed new problem with uncertain prognosis? @ -No Drug Therapy requiring intensive monitoring for toxicity (Heparin, Nitro, Insulin, Cardizem)? @ -No Were any procedures done? @ -No Diagnosis/symptom? @ -[COPD, pneumonia, failed outpatient treatment Acute, or Chronic, or Acute on Chronic? @ -Default Uncomplicated (without systemic symptoms) or Complicated (systemic symptoms)? @ -Default Side effects of treatment? @ -No Exacerbation, Progression, or Severe Exacerbation? @ -No Poses a threat to life or bodily function? How? (Chest pain, [place], [place], pneumonia, PE, COPD, DKA, ARF, appy, cholecystitis, CVA, Diverticulitis, Homicidal, Suicidal, threat to staff... and all critical care pts) @ -yes, resp failure - Lab Data Result diagrams: 12/14/23 13:20 12/14/23 13:20 Lab Results 12/14/23 12/14/23 12/14/23 Range/Units 13:20 13:20 13:20 WBC 13.3 H (3.8-10.6) k/uL RBC 3.32 L (4.30-5.90) m/uL Hgb 8.9 L (13.0-17.5) gm/dL Hct 29.7 L (39.0-53.0) % MCV 89.4 (80.0-100.0) fL MCH 26.9 (25.0-35.0) pg MCHC 30.1 L (31.0-37.0) g/dL RDW 19.8 H (11.5-15.5) % Plt Count 176 (150-450) k/uL MPV 8.7 Neutrophils % 86 % Lymphocytes % 7 % Monocytes % 5 % Eosinophils % 0 % Basophils % 0 % Neutrophils # 11.5 H (1.3-7.7) k/uL Lymphocytes # 0.9 L (1.0-4.8) k/uL Monocytes # 0.7 (0-1.0) k/uL Eosinophils # 0.0 (0-0.7) k/uL Basophils # 0.0 (0-0.2) k/uL Hypochromasia Marked Poikilocytosis Slight Anisocytosis Slight PT 11.3 (10.0-12.5) sec INR 1.0 (<1.2) APTT 40.8 H (22.0-30.0) sec Sodium 134 L (137-145) mmol/L Potassium 4.7 (3.5-5.1) mmol/L Chloride 99 (98-107) mmol/L Carbon Dioxide 27 (22-30) mmol/L Anion Gap 8 mmol/L BUN 14 (9-20) mg/dL Creatinine 0.82 (0.66-1.25) mg/dL Est GFR (CKD-EPI)AfAm >90 (>60 ml/min/1.73 sqM) Est GFR (CKD-EPI)NonAf >90 (>60 ml/min/1.73 sqM) Glucose 97 (74-99) mg/dL Plasma Lactic Acid Eugene (0.7-2.0) mmol/L Calcium 8.7 (8.4-10.2) mg/dL Total Bilirubin 0.5 (0.2-1.3) mg/dL AST 24 (17-59) U/L ALT 15 (4-49) U/L Alkaline Phosphatase 97 (38-126) U/L Total Protein 6.2 L (6.3-8.2) g/dL Albumin 3.2 L (3.5-5.0) g/dL 12/14/23 Range/Units 13:20 WBC (3.8-10.6) k/uL RBC (4.30-5.90) m/uL Hgb (13.0-17.5) gm/dL Hct (39.0-53.0) % MCV (80.0-100.0) fL MCH (25.0-35.0) pg MCHC (31.0-37.0) g/dL RDW (11.5-15.5) % Plt Count (150-450) k/uL MPV Neutrophils % % Lymphocytes % % Monocytes % % Eosinophils % % Basophils % % Neutrophils # (1.3-7.7) k/uL Lymphocytes # (1.0-4.8) k/uL Monocytes # (0-1.0) k/uL Eosinophils # (0-0.7) k/uL Basophils # (0-0.2) k/uL Hypochromasia Poikilocytosis Anisocytosis PT (10.0-12.5) sec INR (<1.2) APTT (22.0-30.0) sec Sodium (137-145) mmol/L Potassium (3.5-5.1) mmol/L Chloride (98-107) mmol/L Carbon Dioxide (22-30) mmol/L Anion Gap mmol/L BUN (9-20) mg/dL Creatinine (0.66-1.25) mg/dL Est GFR (CKD-EPI)AfAm (>60 ml/min/1.73 sqM) Est GFR (CKD-EPI)NonAf (>60 ml/min/1.73 sqM) Glucose (74-99) mg/dL Plasma Lactic Acid Eugene 1.2 (0.7-2.0) mmol/L Calcium (8.4-10.2) mg/dL Total Bilirubin (0.2-1.3) mg/dL AST (17-59) U/L ALT (4-49) U/L Alkaline Phosphatase (38-126) U/L Total Protein (6.3-8.2) g/dL Albumin (3.5-5.0) g/dL Disposition Clinical Impression: Squamous cell lung cancer, Acute exacerbation of chronic obstructive pulmonary disease, Community acquired pneumonia Disposition: ADMITTED IP TO THIS HOSP Condition: Stable Is patient prescribed a controlled substance at d/c from ED?: No Referrals: Eduardo Parsons MD [Primary Care Provider] - 1-2 days Time of Disposition: 15:04
[2023-12-14] MEDS ORDERED: NALOXONE 0.4 MG/ML 1 ML VIAL IVP PRN (14:29)
[2023-12-14] MEDS ORDERED: IPRATROPIUM-ALBUTEROL 3 ML NEB INHALATION PRN (14:29)
[2023-12-14] MEDS ORDERED: ACETAMINOPHEN TAB 325 MG TAB PO PRN (14:29)
--- NOTE | 2023-12-14 14:51 | XR ---
EXAMINATION TYPE: XR chest 2V DATE OF EXAM: 12/14/2023 COMPARISON: 11/28/2023 INDICATION: Difficulty breathing productive cough short of breath lung cancer TECHNIQUE: Frontal and lateral views of the chest are obtained. FINDINGS: The heart size is normal. The pulmonary vasculature is normal. Perihilar masses are present. There is infiltrate type appearance area extending into the right upper lung field. This may be posterior on the lateral projection.. Patient's lung cancer history is repo rted as left upper lobe. IMPRESSION: 1. Increased central lung markings can be related to the patient's reported left lung cancer. 2. Posterior pneumonia is considered less likely. Correlate with the clinical symptoms. [facility], Workstation: [facility], 12/14/2023 2:49 PM
[2023-12-14] MEDS: IPRATROPIUM-ALBUTEROL 3 ML NEB INHALATION SCH (15:05)
[2023-12-14] MEDS ORDERED: VANCOMYCIN IV PER PHARMACY 1 EACH MISC MISCELLANE PRN (15:06)
[2023-12-14] MEDS ORDERED: PNEUMONIA PROTOCOL UTILIZED 1 EACH MISC PO PRN (15:06)
[2023-12-14] MEDS ORDERED: BENZONATATE 100 MG CAP PO PRN (15:20)
[2023-12-14] MEDS: VANCOMYCIN 1,250 MG in SODIUM CHLORIDE 0.9% 250 ML IVPB STA (15:29)
[2023-12-14] MEDS: NICOTINE 21MG/24HR PATCH TRANSDERM STA (15:35)
[2023-12-14] MEDS: CEFEPIME 2 GM in SODIUM CHLORIDE 0.9% 100 ML IVPB SCH (16:52)
--- NOTE | 2023-12-14 17:36 | P.HPIM ---
History of Present Illness H&P Date: 12/14/23 Chief Complaint: Dyspnea Patient is a 63-year-old male with a past medical history of stage IV lung cancer, history of lung abscess, COPD with intermittent home O2, coronary artery disease with stents, history of SVT, hypertension, hyperlipidemia, chronic systolic heart failure who presents to the ED with dyspnea and productive cough that has been ongoing for 1 month. Patient states that his last chemotherapy was 2 weeks ago. He states that last week his oncologist started him on antibiotics for possible pneumonia. Patient states that with the antibiotics his symptoms did improve however then started to worsen again. He states that he was having greenish sputum and after taking antibiotics his sputum turned to clear color. Patient states that he can only walk 10 feet before getting short of breath. Patient denies any fevers. He continues to smoke up to 4 cigarettes a week. He states that he lives with his girlfriend who also smokes. In the ED WBC is 13.3, hemoglobin 8.9. Chest x-ray showed increased central lung markings can be related to patient's reported left lung cancer and posterior pneumonia is considered less likely. In the ED patient was given Solu-Medrol 125 mg, DuoNeb, Rocephin and azithromycin. ROS: 10 ROS reviewed and are negative except as noted in HPI Physical exam General: [Alert and oriented, cachectic appearing]. Eye: [PERRL, EOMI, normal conjunctiva]. HENT: [Normocephalic, clear tympanic membranes, normal hearing, moist oral mucosa, no scleral icterus, no sinus tenderness]. Neck: [Supple, non-tender, no carotid bruits, no JVD, no lymphadenopathy]. Lungs: [Bilateral wheezing]. Heart: [Normal rate, regular rhythm, no murmur, gallop or edema]. Abdomen: [Soft, non-tender, non-distended, normal bowel sounds, no masses]. Musculoskeletal: [Normal range of motion and strength, swelling of bilateral lower feet]. Neurologic: [Awake, alert, and oriented X3, CN II-XII intact]. Psychiatric: [Cooperative, appropriate mood and affect]. Assessment and plan Obstructive pneumonia Sepsis on admission with leukocytosis and tachypnea I discussed with the ED physician and accepted the admission as patient failed outpatient therapy. I will start the patient on IV vancomycin PTD, cefepime IV 2 mg every 8 hours Check sputum culture Check MRSA screen Consult pulmonology Check blood culture Start Tessalon Perles and Robitussin for cough Patient is normotensive and lactic acid within normal limits so no need for fluid bolus COPD exacerbation Start IV Solu-Medrol 60 mg every 6 hours DuoNeb 4 times a day and as needed Stage IV lung cancer Oncology consult Coronary artery disease Continue with aspirin 81 mg daily and Lipitor 80 mg at bedtime Afib Continue with amiodarone 200 mg p.o. daily and metoprolol 12.5 mg p.o. twice daily and Eliquis 5mg PO BID Hypertension Continue with metoprolol Chronic systolic heart failure Patient currently appears hypovolemic. He does have lower extremity edema which could be a reaction from chemotherapy. Patient is not on any diuretics Patient's last echocardiogram showed EF of 55 to 60% done in August 2023. Prior echocardiogram showed EF of 35%. Continue with beta-agnes Tobacco use Patient counseled on avoiding smoking as well as secondhand smoking DVT prophylaxis: Eliquis Past Medical History Past Medical History: Coronary Artery Disease (CAD), Cancer, Chest Pain / Angina, COPD, Hyperlipidemia, Hypertension, Myocardial Infarction ([place]) Additional Past Medical History / Comment(s): SVT with chest pain/palpitations- chemically converted(2023), lung cancer with chemo and radiation Last Myocardial Infarction Date:: 2017 History of Any Multi-Drug Resistant Organisms: MRSA Date of last positivie culture/infection: 12/23/2013 MDRO Source:: Face Past Surgical History: Heart Catheterization With Stent Additional Past Surgical History / Comment(s): I&D of Right inframandibular abscess. 3 cardiac stents, bronchoscopy for abscess Past Anesthesia/Blood Transfusion Reactions: No Reported Reaction Additional Past Anesthesia/Blood Transfusion Reaction / Comment(s): platelet transfusions with no reaction r/t chemo Date of Last Stent Placement:: 2017 Past Psychological History: No Psychological Hx Reported Smoking Status: Former smoker Past Alcohol Use History: None Reported Past Drug Use History: Marijuana - Past Family History Father Family Medical History: No Reported History Additional Family Medical History / Comment(s): Father of "natural causes" at the age of 79yrs. Mother Family Medical History: COPD, Coronary Artery Disease (CAD) Additional Family Medical History / Comment(s): Mother is 76yrs old. She has had several MIs, 6 cardiac stents and a 4 vessel CABG. Medications and Allergies Home Medications Medication Instructions Recorded Confirmed Type Atorvastatin [Lipitor] 80 mg PO HS 03/04/21 12/14/23 History Spiriva Respimat 1.25mcg/Actuation 2 puff INHALATION RT-HS #0 09/01/22 12/14/23 Rx Mist Hydrocodone/Acetaminophen 1 tab PO QID PRN 06/06/23 12/14/23 History [Hydrocodone/Acetaminophen 10-300 mg] Amiodarone [Cordarone] 200 mg PO DAILY #30 tab 09/11/23 12/14/23 Rx Apixaban [Eliquis] 5 mg PO BID 30 Days #60 tab 09/11/23 12/14/23 Rx Chemo (Unknown) 1 dose IV Q21D 12/14/23 12/14/23 History Cholecalciferol [Vitamin D3 (25 50 mcg PO DAILY 12/14/23 12/14/23 History Mcg = 1000 Iu)] Omeprazole [PriLOSEC] 40 mg PO DAILY PRN 12/14/23 12/14/23 History Ondansetron [Zofran] 4 mg PO Q4H PRN 12/14/23 12/14/23 History Pegfilgrastim-Jmdb [Fulphila] 6 mg SQ Q21D 12/14/23 12/14/23 History Prochlorperazine [Compazine] 10 mg PO Q6H PRN 12/14/23 12/14/23 History dexAMETHasone [Decadron] 8 mg PO DIRECTED 12/14/23 12/14/23 History Allergies Allergy/AdvReac Type Severity Reaction Status Date / Time Penicillins Allergy Dyspnea & Verified 12/14/23 16:23 Hives all over Physical Exam Osteopathic Statement: *. No significant issues noted on an osteopathic structural exam other than those noted in the History and Physical/Consult. Vitals: Vital Signs Temp Pulse Resp BP Pulse Ox 12/14/23 14:51 86 22 136/86 96 12/14/23 14:14 82 12/14/23 13:57 24 12/14/23 13:50 84 12/14/23 13:35 84 20 98/64 94 L 12/14/23 13:09 98.3 F 88 20 102/60 95 Intake and Output 12/14/23 12/14/23 12/14/23 06:59 14:59 22:59 Other: Weight 63.503 kg Results CBC & Chem 7: 12/14/23 13:20 12/14/23 13:20 Labs: Abnormal Lab Results - Last 24 Hours (Table) 12/14/23 12/14/23 12/14/23 Range/Units 13:20 13:20 13:20 WBC 13.3 H (3.8-10.6) k/uL RBC 3.32 L (4.30-5.90) m/uL Hgb 8.9 L (13.0-17.5) gm/dL Hct 29.7 L (39.0-53.0) % MCHC 30.1 L (31.0-37.0) g/dL RDW 19.8 H (11.5-15.5) % Neutrophils # 11.5 H (1.3-7.7) k/uL Lymphocytes # 0.9 L (1.0-4.8) k/uL APTT 40.8 H (22.0-30.0) sec Sodium 134 L (137-145) mmol/L Total Protein 6.2 L (6.3-8.2) g/dL Albumin 3.2 L (3.5-5.0) g/dL
[2023-12-14] MEDS: methylPREDNISolone SOD SUCCI 125 MG/2 ML VIAL IV SCH (18:17)
[2023-12-14] MEDS ORDERED: MIST INHALATION SCH (20:00)
[2023-12-14] MEDS ORDERED: SPIRIVA RESPIMAT INHALATION SCH (20:00)
[2023-12-14] MEDS: APIXABAN 5 MG TAB PO SCH (20:35)
[2023-12-14] MEDS: ATORVASTATIN 80 MG TAB PO SCH (20:35)
[2023-12-14] MEDS: HYDROcodone/APAP 10-325MG 1 EACH TAB PO PRN (20:43)
[2023-12-15] MEDS: VANCOMYCIN 1,250 MG in SODIUM CHLORIDE 0.9% 250 ML IVPB SCH (03:19)
[2023-12-15] MEDS ORDERED: RX INFO: IV CONTRAST WAS GIVEN 1 EACH MISC MISCELLANE PRN (05:52)
--- NOTE | 2023-12-15 06:27 | P.CNPUL ---
History of Present Illness Consult date: 12/15/23 Requesting physician: Anastacio Shay Reason for consult: COPD Chief complaint: Shortness of breath History of present illness: This is a 63-year-old male patient with a known history of lung cancer original diagnosed 2020. His oncologist is Dr. Hoyos. Currently receiving chemotherapy, however, recently placed on hold for 1 week. He was having chest congestion, cough with purulent sputum. His oncologist reportedly put him on IV 7-day course of antibiotics. No significant improvement after outpatient treatment, directed to the ER by Dr. Hoyos. Previous also, COPD, previous tobacco dependence, hypertension, hyperlipidemia, coronary artery disease with previous PCI/stent, ischemic cardiomyopathy, and atrial fibrillation anticoagulated on Eliquis. Previous treatment for a suspected cavitary pneumonia. Bronchoscopy with BAL May,. No malignant cells noted in wash. BAL microbiology negative. Patient currently being evaluated on the medical floor. He is resting in bed on room air. Has a congested cough with yellow sputum production. No measured fevers. No hemoptysis. Chest pain is chronic due to his malignancy. Denies sick contacts. Last reported chemotherapy cycle was on December 04. No longer returning for radiation treatments. Chest x-ray done on admission showing increased central lung markings suspicious for disease progression versus pneumonia. CBC: WBC count 13.3, hemoglobin 8.9, hematocrit 29.7, platelets 176. CMP: Unremarkable. EKG: Sinus rhythm, rate 84 bpm, Q waves noted in leads I and aVL Viral screen negative for influenza, RSV, COVID. Currently on a combination of empiric antibiotics in the form of cefepime and vancomycin. Nontoxic appearance. Review of Systems Constitutional: Reports poor appetite, Reports weight loss, Denies chills, Denies fever, Denies weight gain Ears, nose, mouth and throat: Denies epistaxis, Denies nasal congestion, Denies nasal discharge, Denies post-nasal drip, Denies sinus pain, Denies sinus pressure, Denies sore throat Cardiovascular: Reports leg edema, Reports orthopnea, Denies lightheadedness, Denies palpitations, Denies paroxysmal nocturnal dyspnea, Denies syncope Respiratory: Reports congestion, Reports cough, Reports cough with sputum, Reports dyspnea, Reports wheezing, Denies home oxygen Gastrointestinal: Reports loss of appetite, Denies abdominal pain, Denies constipation, Denies diarrhea, Denies nausea, Denies vomiting Genitourinary: Denies dysuria Musculoskeletal: Denies limitation of motion Integumentary: Denies rash Neurological: Denies seizures, Denies syncope Psychiatric: Denies anxiety, Denies depression Past Medical History Past Medical History: Atrial Fibrillation, Coronary Artery Disease (CAD), Cancer, Chest Pain / Angina, COPD, Hyperlipidemia, Hypertension, Myocardial Infarction (PA) Additional Past Medical History / Comment(s): SVT with chest pain/palpitations- chemically converted(2023), lung cancer with chemo and radiation Last Myocardial Infarction Date:: 2017 History of Any Multi-Drug Resistant Organisms: MRSA Date of last positivie culture/infection: 12/23/2013 MDRO Source:: Face Past Surgical History: Heart Catheterization With Stent Additional Past Surgical History / Comment(s): I&D of Right inframandibular abscess. 3 cardiac stents, bronchoscopy for abscess Past Anesthesia/Blood Transfusion Reactions: No Reported Reaction Additional Past Anesthesia/Blood Transfusion Reaction / Comment(s): platelet transfusions with no reaction r/t chemo Date of Last Stent Placement:: 2017 Past Psychological History: No Psychological Hx Reported Additional Psychological History / Comment(s): He resides with his son. He uses no assistive devices. He no longer drives, his son takes him places. Smoking Status: Current some day smoker Past Alcohol Use History: None Reported Additional Past Alcohol Use History / Comment(s): Pt started smoking when he was 13 1ppd and quit 1 year ago. patient occasionally still smokes a cigarette every couple of days - Past Family History Father Family Medical History: No Reported History Additional Family Medical History / Comment(s): Father of "natural causes" at the age of 79yrs. Mother Family Medical History: COPD, Coronary Artery Disease (CAD) Additional Family Medical History / Comment(s): Mother is 76yrs old. She has had several MIs, 6 cardiac stents and a 4 vessel CABG. Medications and Allergies Home Medications Medication Instructions Recorded Confirmed Type Atorvastatin [Lipitor] 80 mg PO HS 03/04/21 12/14/23 History Spiriva Respimat 1.25mcg/Actuation 2 puff INHALATION RT-HS #0 09/01/22 12/14/23 Rx Mist Hydrocodone/Acetaminophen 1 tab PO QID PRN 06/06/23 12/14/23 History [Hydrocodone/Acetaminophen 10-300 mg] Amiodarone [Cordarone] 200 mg PO DAILY #30 tab 09/11/23 12/14/23 Rx Apixaban [Eliquis] 5 mg PO BID 30 Days #60 tab 09/11/23 12/14/23 Rx Chemo (Unknown) 1 dose IV Q21D 12/14/23 12/14/23 History Cholecalciferol [Vitamin D3 (25 50 mcg PO DAILY 12/14/23 12/14/23 History Mcg = 1000 Iu)] Omeprazole [PriLOSEC] 40 mg PO DAILY PRN 12/14/23 12/14/23 History Ondansetron [Zofran] 4 mg PO Q4H PRN 12/14/23 12/14/23 History Pegfilgrastim-Jmdb [Fulphila] 6 mg SQ Q21D 12/14/23 12/14/23 History Prochlorperazine [Compazine] 10 mg PO Q6H PRN 12/14/23 12/14/23 History dexAMETHasone [Decadron] 8 mg PO DIRECTED 12/14/23 12/14/23 History Allergies Allergy/AdvReac Type Severity Reaction Status Date / Time Penicillins Allergy Dyspnea & Verified 12/14/23 16:23 Hives all over Physical Exam Vitals: Vital Signs Temp Pulse Pulse Resp BP BP Pulse Ox 12/15/23 01:49 97.6 F 72 16 96/59 96 12/14/23 19:50 80 12/14/23 19:37 80 12/14/23 18:09 98.2 F 86 20 126/71 98 12/14/23 17:57 68 18 110/60 95 12/14/23 16:53 81 20 100/68 95 12/14/23 15:37 84 20 101/89 97 12/14/23 14:51 86 22 136/86 96 12/14/23 14:14 82 12/14/23 13:57 24 12/14/23 13:50 84 12/14/23 13:35 84 20 98/64 94 L 12/14/23 13:09 98.3 F 88 20 102/60 95 Intake and Output 12/14/23 12/14/23 12/15/23 14:59 22:59 06:59 Other: Voiding Method Toilet Weight 63.503 kg 63.503 kg GENERAL EXAM: Alert, 63-year-old male, comfortable in no apparent distress. HEAD: Normocephalic and atraumatic EYES: Normal reaction of pupils, equal size. NOSE: Clear with pink turbinates. THROAT: No erythema or exudates. NECK: No masses, no JVD. CHEST: No chest wall deformity. LUNGS: Equal air entry with diffuse bilateral rhonchi. On room air. No conversational dyspnea or accessory muscle use.. CVS: S1 and S2 normal with no audible murmur, regular rhythm. No extra heart sounds ABDOMEN: No hepatosplenomegaly, active bowel sounds, no guarding or rigidity. SPINE: No scoliosis or deformity SKIN: No rashes CENTRAL NERVOUS SYSTEM: No focal deficits, tone is normal in all 4 extremities. EXTREMITIES: There is no peripheral edema, or cyanosis. Peripheral pulses are intact. Digital clubbing noted. Results - Laboratory Findings CBC and BMP: 12/14/23 13:20 12/14/23 13:20 PT/INR, D-dimer PT 11.3 sec (10.0-12.5) 12/14/23 13:20 INR 1.0 (<1.2) 12/14/23 13:20 Abnormal lab findings: Abnormal Labs 12/14/23 12/14/23 12/14/23 13:20 13:20 13:20 WBC 13.3 H RBC 3.32 L Hgb 8.9 L Hct 29.7 L MCHC 30.1 L RDW 19.8 H Neutrophils # 11.5 H Lymphocytes # 0.9 L APTT 40.8 H Sodium 134 L Total Protein 6.2 L Albumin 3.2 L - Diagnostic Findings Chest x-ray: image reviewed Assessment and Plan Assessment: Acute COPD exacerbation, chest x-ray done on admission showing increased central lung markings suspicious for disease progression versus pneumonia. Metastatic squamous cell carcinoma, likely with disease progression, chest CT pending Acute on chronic shortness of breath, secondary to a combination of above Acute leukocytosis Chronic anemia History of hypertension History of hyperlipidemia History of coronary artery disease with previous PCI/stent History of ischemic cardiomyopathy, most recent echocardiogram available from 08/27/2022 estimates an impaired left ventricular systolic ejection fraction of 35% Chronic ongoing tobacco dependence, patient restarted smoking History of ocular herpes History of paroxysmal atrial fibrillation, anticoagulated on Eliquis Plan: Patient's medications, labs, chest x-ray reviewed Currently on room air oxygen Start combination of bronchodilators, Symbicort inhaler, and IV Solu-Medrol Continue combination of empiric antibiotics Check procalcitonin level CT of chest with contrast ordered Oncology is consulted Eliquis has been resumed GI prophylaxis: Protonix We will continue to follow I have personally seen and examined the patient, performed the documentation and the assessment and plan as written. Number of minutes spent on the visit:20 Time with Patient: Greater than 30
[2023-12-15] MEDS: SYMBICORT 160-4.5 MCG INHALER INHALATION SCH (08:26)
--- NOTE | 2023-12-15 08:31 | CT ---
EXAMINATION TYPE: CT chest w con DATE OF EXAM: 12/15/2023 COMPARISON: 09/06/2023, 07/13/2023 HISTORY: 63-year-old male History lung CA, pneumonia TECHNIQUE: Contiguous axial scanning of the chest after the administration of 100ml mL of Isovue 300. Coronal/sagittal reconstructions performed. CT DLP: 200.1mGycm. Automatic exposure control utilized for a dose reduction. FINDINGS: The heart is normal size with slight increase and small right pleural effusion currently 7 mm thick. Extensive three-vessel coronary artery calcifications are present. Mild scattered atherosclerotic arch calcifications with conventional arch vessel branching anatomy. New soft tissue nodules left paratracheal region measuring 1.8 cm and 1.4 cm. Pericarinal and subcari nal encasing soft tissue now 5.4 x 5.0 cm versus 5.5 x 1.4 cm, previously, increasing soft tissue ful lness extending to the right hilum and encasing the right upper lobe bronchus where spiculated contig uous soft tissue is noted measuring 3.9 cm versus 3.4 cm, previously. There is interval development o f contiguous, thick walled cavitation extending up along the posterior right upper lobe. Background moderate emphysema. Annual multifocal areas of groundglass and patchy airspace disease hilary aterally though the more confluent area of consolidation previously seen in the left lower lobe has c onsiderably improved. Residual posterior left infrahilar opacity involving the superior segment left lower lobe remains. Subcarinal soft tissue has mass effect narrowing the right main pulmonary artery down to 8 mm versus 1.1 cm, previously. Trace left pleural effusion. Visualized upper abdomen shows no gross abnormality. Bones: Old healed sternal fracture. Mild to moderate mid thoracic degenerative disc disease. IMPRESSION: 1. Some interval disease progression. Soft tissue encasing the teresa and right mainstem bronchus is showing increasing bulk measuring up to 5.4 cm. There is mass effect onto the right main pulmonary ar gladys narrowing it to 8 mm now versus 1.1 cm, previously. 2. Contiguous right suprahilar mass encasing the right upper lobe bronchus measures 3.9 cm now versus 3.4 cm, previously. In addition, there is progressive soft tissue which has developed extending supe riorly and posteriorly in the right upper lobe. 3. New left paratracheal adenopathy measuring 1.8 cm and 1.4 cm. 4. Opacification and bronchial narrowing superior segment left lower lobe is similar. The adjacent ex tensive left lower lobe consolidation has resolved. 5. However, there are new multifocal groundglass and airspace infiltrates bilaterally, new from 2023. Correlate for infectious or inflammatory pneumonitis. 6. Background COPD with moderate emphysema. Extensive three-vessel coronary artery calcification. Sli ght increase in small, 7 mm thick pericardial effusion. Development of trace left pleural effusion. [facility], , 12/15/2023 8:28 AM
[2023-12-15 09:00] LABS: HCT 26.5 % (39.6-50.0); HGB 7.9 g/dL (13.0-17.0); MCH 27.3 pg (27.0-32.0); MCHC 29.8 g/dL (32.0-37.0); MCV 91.7 FL (80.0-97.0); Mean Platelet Volume 10.6 FL (9.5-12.2); NRBC Per 100 WBC 0 X 10*3/uL (0.00-0.01); Platelet Count 171 X 10*3/uL (140-440); RBC 2.89 X 10*6/uL (4.40-5.60); RDW 20.5 % (11.5-14.5); WBC 8.68 X 10*3/uL (4.50-10.00)
[2023-12-15 09:40] LABS: BUN/Creat Ratio 17.71 Ratio (12.00-20.00); Blood Urea Nitrogen 12.4 mg/dL (9.0-27.0); Calcium 8.1 mg/dL (8.7-10.3); Carbon Dioxide 23.7 mmol/L (21.6-31.8); Chloride 103 mmol/L (96-109); Glucose 199 mg/dL (70-110); Potassium 4.1 mmol/L (3.5-5.5); Sodium 136 mmol/L (135-145)
[2023-12-15 10:14] LABS: Anisocytosis (M) 2+; Basophils # (A) 0.01 X 10*3/uL (0.00-0.10); Basophils % (A) 0.1 %; Eosinophils # (A) 0 X 10*3/uL (0.04-0.35); Eosinophils % (A) 0 %; Hypochromasia (M) 2+; Lymphocytes # (A) 0.45 X 10*3/uL (0.90-5.00); Lymphocytes % (A) 5.2 %; Monocytes # (A) 0.25 X 10*3/uL (0.20-1.00); Monocytes % (A) 2.9 %; Neutrophils # (A) 7.88 X 10*3/uL (1.80-7.70); Neutrophils % (A) 90.8 %
[2023-12-15] MEDS: AMIODARONE 200 MG TAB PO SCH (10:52)
[2023-12-15] MEDS: PANTOPRAZOLE 40 MG TABLET PO SCH (10:52)
[2023-12-15] MEDS ORDERED: IOPAMIDOL CONTRAST (ORAL USE) VIAL PO PRN (11:25)
--- NOTE | 2023-12-15 13:21 | P.PN ---
Subjective Progress Note Date: 12/15/23 Hospital course Patient is a 63-year-old male with a past medical history of stage IV lung cancer, history of lung abscess, COPD with intermittent home O2, coronary artery disease with stents, history of SVT, hypertension, hyperlipidemia, chronic systolic heart failure who presents to the ED with dyspnea and productive cough that has been ongoing for 1 month. Patient states that his last chemotherapy was 2 weeks ago. He states that last week his oncologist started him on ant ibiotics for possible pneumonia. Patient states that with the antibiotics his symptoms did improve however then started to worsen again so he came into the emergency room. Patient continues to smoke cigarettes and his girlfriend also smokes. In the ED WBC is 13.3, hemoglobin 8.9. Chest x-ray showed increased central lung markings can be related to patient's reported left lung cancer and posterior pneumonia is considered less likely. In the ED patient was given Solu-Medrol 125 mg, DuoNeb, Rocephin and azithromycin. Patient was then referred for admission. Since patient is immunocompromise he was started on vancomycin pharmacy to dose and cefepime. Patient was also started on IV Solu-Medrol and breathing treatments for COPD exacerbation. Patient had a CT scan that showed progressing of his lung cancer. Pulmonology planning on doing bronchoscopy. Patient seen this morning. He states that his breathing is about the same. 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 Normalized. Continue with IV vancomycin PTD, cefepime IV 2 mg every 8 hours I reviewed pulmonology note and plan is for bronchoscopy tomorrow Follow-up on sputum culture Follow-up on blood culture Follow-up on MRSA screen Continue with Tessalon Perles and Robitussin for cough CT chest showed new multifocal groundglass and airspace infiltrates bilaterally. COPD exacerbation Continue with IV Solu-Medrol 60 mg every 6 hours DuoNeb 4 times a day and as needed Stage IV lung cancer CT chest shows progressing of his malignancy I discussed with oncology who ordered CT abdomen pelvis with contrast to see if he has any further metastasis. Coronary artery disease Continue with aspirin 81 mg daily and Lipitor 80 mg at bedtime Afib Continue with amiodarone 200 mg p.o. daily and metoprolol 12.5 mg p.o. twice daily and Eliquis 5mg PO BID Hypertension Continue with metoprolol Chronic systolic heart failure Patient currently appears hypovolemic. He does have lower extremity edema which could be a reaction from chemotherapy. Patient is not on any diuretics Patient's last echocardiogram showed EF of 55 to 60% done in August 2023. Prior echocardiogram showed EF of 35%. Continue with beta-agnes Tobacco use Patient counseled on avoiding smoking as well as secondhand smoking DVT prophylaxis: Eliquis Patient's prognosis is guarded. I did discuss goals of care with the patient. Patient wants to discuss with his son and oncology. Objective - Vital Signs Vital signs: Vital Signs Temp 97.9 F 12/15/23 12:50 Pulse 84 12/15/23 12:50 Resp 20 12/15/23 12:50 BP 99/62 12/15/23 12:50 Pulse Ox 96 12/15/23 12:50 FiO2 Intake & Output 12/14/23 12/15/23 12/15/23 18:59 06:59 18:59 Weight 63.503 kg Other: Voiding Method Toilet Toilet # Voids 3 - Labs CBC & Chem 7: 12/15/23 05:42 12/15/23 05:42 Labs: Abnormal Lab Results - Last 24 Hours (Table) 12/14/23 12/14/23 12/14/23 Range/Units 13:20 13:20 13:20 WBC 13.3 H (3.8-10.6) k/uL RBC 3.32 L (4.30-5.90) m/uL Hgb 8.9 L (13.0-17.5) gm/dL Hct 29.7 L (39.0-53.0) % MCHC 30.1 L (31.0-37.0) g/dL RDW 19.8 H (11.5-15.5) % Immature Gran # (0.00-0.04) X 10*3/uL Neutrophils # 11.5 H (1.3-7.7) k/uL Lymphocytes # 0.9 L (1.0-4.8) k/uL Eosinophils # (0.04-0.35) X 10*3/uL Hypochromasia (manual) Anisocytosis (manual) APTT 40.8 H (22.0-30.0) sec Sodium 134 L (137-145) mmol/L Glucose (70-110) mg/dL Calcium (8.7-10.3) mg/dL Total Protein 6.2 L (6.3-8.2) g/dL Albumin 3.2 L (3.5-5.0) g/dL 12/15/23 12/15/23 Range/Units 05:42 05:42 WBC (3.8-10.6) k/uL RBC 2.89 L (4.30-5.90) m/uL Hgb 7.9 L (13.0-17.5) gm/dL Hct 26.5 L (39.0-53.0) % MCHC 29.8 L (31.0-37.0) g/dL RDW 20.5 H (11.5-15.5) % Immature Gran # 0.09 H (0.00-0.04) X 10*3/uL Neutrophils # 7.88 H (1.3-7.7) k/uL Lymphocytes # 0.45 L (1.0-4.8) k/uL Eosinophils # 0 L (0.04-0.35) X 10*3/uL Hypochromasia (manual) 2+ A Anisocytosis (manual) 2+ A APTT (22.0-30.0) sec Sodium (137-145) mmol/L Glucose 199 H (70-110) mg/dL Calcium 8.1 L (8.7-10.3) mg/dL Total Protein (6.3-8.2) g/dL Albumin (3.5-5.0) g/dL
[2023-12-15 14:56] VITALS: BMI 18.4
--- NOTE | 2023-12-15 16:35 | P.CONS ---
History of Present Illness - Reason for Consult Consult date: 12/15/23 lung cancer Requesting physician: Anastacio Shay - Chief Complaint SOB, cough - History of Present Illness Mr Rene is a 62 yo male pt of Dr. Hoyos who initially presented to ER 06/2020 with c/o of cough, hemoptysis intermittently for 7-10 days. CXR did not show any major abnormality. Recommended follow-up as an outpatient with his PCP and get a CT scan done. Patient did not have a PCP so finding a PCP took some time and he did put things off, as he was working and otherwise felt well. Ultimately had a CT chest 02/02/21. This showed a 8.6 x 6.8 cm soft tissue mass encasing the left hilum, contiguous with subcarinal adenopathy. This was causing mild narrowing of the left mainstem bronchus and upper lobe branches. There was also a spiculated right perihilar mass measuring 4.1 x 2.4 cm with some central cavitation. There is a 6 cm nodule in the right midlung, and another 3 mm nodule in the right base, 6 mm nodular density in the right upper lobe. Par atracheal and subcarinal adenopathy measured 2.4 cm. Referred to Pulmonary and had bronchoscopy on 02/09/21 of the right and left upper lobes. 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 Referred to Medical Oncology. Had completion of staging with MRI, which was negative. PET scan confirmed uptake in both the right suprahilar, as well as the left hilar mass, with involvement of multiple mediastinal, hilar and subcarinal nodes. Biomarker testing showed positive PD1, with TPS 3-5%. TMB was high at 26+. He was started on immunotherapy 03/27/21. He did well for 19 cycles, then developed progression and was changed to Carbo/Gemzar starting 04/27/22. He had 4 cycles, completing those on 07/07/22. Dose was reduced with cycle 2, because of hematologic toxicity, and G-CSF was added. He was admitted after cycle 4, on 07/09/22, with lower extremity swelling not responding to Lasix, acute kidney injury, and hyperkalemia. It is felt that the patient had steroid insufficiency and was treated supportively, and was discharged on Decadron with follow-up scheduled with endocrinology outpatient. At his visit on 08/03/22 CT showed a partial response, it was decided to give him a treatment break. The patient was admitted to the hospital in mid 09/05 with shortness of breath, and tachycardia. CT angiogram done during that visit was negative for PE, but noted the right-sided lung mass to be larger in size. The patient improved with treatment for pneumonia, CHF and COPD exacerbation and continued on observation. Repeat CT 11/06 showing resolution of lung opacities, and decrease in the right-sided masslike area. At his visit on 01/18/23, he reported a new right-sided headache. He had attributed this to increase in his blood pressure medication, but this is persistent despite him stopping those medicines. MRI of the brain done was negative for metastases however, imaging did show evidence of progression in the lung on the right. The patient was therefore changed to Taxotere and Cyramza, starting the same on 02/10/23. Cyramza was then held after cycle 2, due to hemoptysis, and the patient has continued on Taxotere alone. He completed cycle 4 cycle of single agent Taxotere with GCSF last given 05/26/23. Imaging did not report any areas of new/metastatic disease. Known areas of disease slightly larger-suspect because of infection. He had hospital admission in May, and treatment has been held since due to persisting lung infection. Case was discussed with pulmonology who agreed to hold treatment to allow pt adequate to time to recover. At his last f/u on 07/27, pt was reporting persisting right sided headache, MRI brain was repeated on 08/01, which showed no evidence of mass, acute/subacute infarct, or abnormal enchancement, with nonspecific white matter changes. Plan was for pt to begin palliative RT once cleared by pulmonology and restart single agent Taxotere s/p RT. He has completed 6 of 10 fractions. Patient restarted treatment on 09/26/23. Patient was recently treated with course of oral abx due to c/o of URI symptoms. He then underwent his last cycle of taxotere on 12/05/23 with G-CSF on 12/05, and on his f/u on 12/14/23, was complaining of increased congestion and productive cough, over the past 2-3 days, associated with markedly increased shortness of breath and weakness. He stated that his sputum was still off-white in color, but was becoming more copious. He he was only able to walk a few feet without having to stop and rest, at which time he was referred to the hospital for further evaluation. On admit chest x-ray showed increased central lung markings which can be related to patient's reported left lung cancer, posterior pneumonia is considered less likely. Patient subsequently had CT chest without contrast with contrast which showed interval disease progression. Soft tissue encasing the teresa and right mainstem bronchus which is showing increasing bulk measuring up to 5.4 cm. There is mass effect onto the right main pulmonary artery narrowing at 8 mm, previously at 1.1 cm. Continuous right suprahilar mass encasing the right upper lobe bronchus measuring 3.9 cm versus 3.4 cm previously. Also there is progressive soft tissue which has developed extending superiorly and posteriorly in the right upper lobe. New left paratracheal adenopathy measuring 1.8 cm. Opacification and bronchial narrowing superior segment of the left lower lobe which is similar to previous study. Extensive the left lower lobe consolidation has now resolved. New multifocal groundglass and airspace infiltrates bilatera lly. Background COPD with moderate emphysema. Patient has been started on IV antibiotics, bronchodilators and steroids. CBC showing WBC 8.6, hemoglobin 7.9, platelets 171,000. Patient is afebrile, SpO2 95% on room air. Pulmonology following. Review of Systems 10 point ROS is negative except as stated in the HPI Past Medical History Past Medical History: Atrial Fibrillation, Coronary Artery Disease (CAD), Cancer, Chest Pain / Angina, COPD, Hyperlipidemia, Hypertension, Myocardial Infarction ([place]) Additional Past Medical History / Comment(s): SVT with chest pain/palpitations- chemically converted(2023), lung cancer with chemo and radiation Last Myocardial Infarction Date:: 2018 History of Any Multi-Drug Resistant Organisms: MRSA Year Discovered:: 12/23/2013 MDRO Source:: Face Past Surgical History: Heart Catheterization With Stent Additional Past Surgical History / Comment(s): I&D of Right inframandibular abscess. 3 cardiac stents, bronchoscopy for abscess Past Anesthesia/Blood Transfusion Reactions: No Reported Reaction Additional Past Anesthesia/Blood Transfusion Reaction / Comm: platelet transfusions with no reaction r/t chemo Date of Last Stent Placement:: 2018 Past Psychological History: No Psychological Hx Reported Additional Psychological History / Comment(s): He resides with his son. He uses no assistive devices. He no longer drives, his son takes him places. Smoking Status: Current some day smoker Past Alcohol Use History: None Reported Additional Past Alcohol Use History / Comment(s): Pt started smoking when he was 13 1ppd and quit 1 year ago. patient occasionally still smokes a cigarette every couple of days - Past Family History Father Family Medical History: No Reported History Additional Family Medical History / Comment(s): Father of "natural causes" at the age of 79yrs. Mother Family Medical History: COPD, Coronary Artery Disease (CAD) Additional Family Medical History / Comment(s): Mother is 76yrs old. She has had several MIs, 6 cardiac stents and a 4 vessel CABG. Medications and Allergies Home Medications Medication Instructions Recorded Confirmed Type Atorvastatin [Lipitor] 80 mg PO HS 03/04/21 12/14/23 History Spiriva Respimat 1.25mcg/Actuation 2 puff INHALATION RT-HS #0 09/01/22 12/14/23 Rx Mist Hydrocodone/Acetaminophen 1 tab PO QID PRN 06/06/23 12/14/23 History [Hydrocodone/Acetaminophen 10-300 mg] Amiodarone [Cordarone] 200 mg PO DAILY #30 tab 09/11/23 12/14/23 Rx Apixaban [Eliquis] 5 mg PO BID 30 Days #60 tab 09/11/23 12/14/23 Rx Chemo (Unknown) 1 dose IV Q21D 12/14/23 12/14/23 History Cholecalciferol [Vitamin D3 (25 50 mcg PO DAILY 12/14/23 12/14/23 History Mcg = 1000 Iu)] Omeprazole [PriLOSEC] 40 mg PO DAILY PRN 12/14/23 12/14/23 History Ondansetron [Zofran] 4 mg PO Q4H PRN 12/14/23 12/14/23 History Pegfilgrastim-Jmdb [Fulphila] 6 mg SQ Q21D 12/14/23 12/14/23 History Prochlorperazine [Compazine] 10 mg PO Q6H PRN 12/14/23 12/14/23 History dexAMETHasone [Decadron] 8 mg PO DIRECTED 12/14/23 12/14/23 History Allergies Allergy/AdvReac Type Severity Reaction Status Date / Time Penicillins Allergy Dyspnea & Verified 12/14/23 16:23 Hives all over Physical Exam Vitals: Vital Signs Temp Pulse Pulse Resp BP BP Pulse Ox 12/15/23 09:23 97.6 F 79 14 113/68 95 12/15/23 08:37 72 12/15/23 08:27 72 12/15/23 01:49 97.6 F 72 16 96/59 96 12/14/23 19:50 80 12/14/23 19:37 80 12/14/23 18:09 98.2 F 86 20 126/71 98 12/14/23 17:57 68 18 110/60 95 12/14/23 16:53 81 20 100/68 95 12/14/23 15:37 84 20 101/89 97 12/14/23 14:51 86 22 136/86 96 12/14/23 14:14 82 12/14/23 13:57 24 12/14/23 13:50 84 12/14/23 13:35 84 20 98/64 94 L 12/14/23 13:09 98.3 F 88 20 102/60 95 Intake and Output 12/14/23 12/15/23 12/15/23 22:59 06:59 14:59 Other: Voiding Method Toilet Toilet # Voids 3 Weight 63.503 kg - Constitutional General appearance: average body habitus, no acute distress - EENT Eyes: anicteric sclerae, EOMI ENT: hearing grossly normal - Respiratory coarse throughout, mildly labored breathing - Cardiovascular Rhythm: regular - Gastrointestinal General gastrointestinal: soft, no tenderness - Integumentary Integumentary: no cyanotic - Psychiatric Psychiatric: A&O x's 3 Results CBC & Chem 7: 12/15/23 05:42 12/15/23 05:42 Labs: Abnormal Lab Results - Last 24 Hours (Table) 12/14/23 12/14/23 12/14/23 Range/Units 13:20 13:20 13:20 WBC 13.3 H (3.8-10.6) k/uL RBC 3.32 L (4.30-5.90) m/uL Hgb 8.9 L (13.0-17.5) gm/dL Hct 29.7 L (39.0-53.0) % MCHC 30.1 L (31.0-37.0) g/dL RDW 19.8 H (11.5-15.5) % Immature Gran # (0.00-0.04) X 10*3/uL Neutrophils # 11.5 H (1.3-7.7) k/uL Lymphocytes # 0.9 L (1.0-4.8) k/uL Eosinophils # (0.04-0.35) X 10*3/uL Hypochromasia (manual) Anisocytosis (manual) APTT 40.8 H (22.0-30.0) sec Sodium 134 L (137-145) mmol/L Glucose (70-110) mg/dL Calcium (8.7-10.3) mg/dL Total Protein 6.2 L (6.3-8.2) g/dL Albumin 3.2 L (3.5-5.0) g/dL 12/15/23 12/15/23 Range/Units 05:42 05:42 WBC (3.8-10.6) k/uL RBC 2.89 L (4.30-5.90) m/uL Hgb 7.9 L (13.0-17.5) gm/dL Hct 26.5 L (39.0-53.0) % MCHC 29.8 L (31.0-37.0) g/dL RDW 20.5 H (11.5-15.5) % Immature Gran # 0.09 H (0.00-0.04) X 10*3/uL Neutrophils # 7.88 H (1.3-7.7) k/uL Lymphocytes # 0.45 L (1.0-4.8) k/uL Eosinophils # 0 L (0.04-0.35) X 10*3/uL Hypochromasia (manual) 2+ A Anisocytosis (manual) 2+ A APTT (22.0-30.0) sec Sodium (137-145) mmol/L Glucose 199 H (70-110) mg/dL Calcium 8.1 L (8.7-10.3) mg/dL Total Protein (6.3-8.2) g/dL Albumin (3.5-5.0) g/dL Chest x-ray: report reviewed CT scan - chest: report reviewed Assessment and Plan (1) Acute exacerbation of chronic obstructive pulmonary disease Current Visit: Yes Status: Acute Priority: High Code(s): J44.1 - CHRONIC OBSTRUCTIVE PULMONARY DISEASE W (ACUTE) EXACERBATION SNOMED Code(s): 240437202 (2) Community acquired pneumonia Current Visit: Yes Status: Acute Priority: High Code(s): J18.9 - PNEUMONIA, UNSPECIFIED ORGANISM SNOMED Code(s): 317066201 (3) Squamous cell lung cancer Current Visit: Yes Status: Chronic Priority: High Code(s): C34.90 - MALIGNANT NEOPLASM OF UNSP PART OF UNSP BRONCHUS OR LUNG SNOMED Code(s): 667976430 Plan: ERICA, pneumonia: Patient presented with exertional SOB and productive cough. Recently treated with oral abx for suspected pneumonia -On admit chest x-ray showed increased central lung markings which can be related to patient's reported left lung cancer, posterior pneumonia is considered less likely. Patient subsequently had CT chest without contrast with contrast which showed interval disease progression. Soft tissue encasing the teresa and right mainstem bronchus which is showing increasing bulk measuring up to 5.4 cm. There is mass effect onto the right main pulmonary artery narrowing at 8 mm, previously at 1.1 cm. Continuous right suprahilar mass encasing the right upper lobe bronchus measuring 3.9 cm versus 3.4 cm previously. Also there is progressive soft tissue which has developed extending superiorly and posteriorly in the right upper lobe. New left paratracheal adenopathy measuring 1.8 cm. Opacification and bronchial narrowing superior segment of the left lower lobe which is similar to previous study. Extensive left lower lobe consolidation has now resolved. New multifocal groundglass and airspace infiltrates bilaterally. Background COPD with moderate emphysema. -IV antibiotics, bronchodilators and steroids started. Pulmonology following. -Discussed with patient that CT scan showing potential progression of disease vs infectious/inflammatory process which could attribute to noted findings. Will obtain CT AP to evaluate for progression of disease within abd/pelvis -Case discussed with rad onc, consult placed for evaluation for palliative RT to lung mass Pt updated on findings and POC, he was agreeable to the same NSCLC: -Oncology history as dictated in the HPI -Currently on treatment with single agent taxotere, completing last tx on 12/05/23 with G-CSF on 12/05 -Treatment will be on hold until patient acutely recovers -Clinic f/u upon discharge Doctor attests: I performed a history and physical examination of this patient, developed impression and plan of care. Discussed with dictator. I agree with dictators note, documented as a scribe.
[2023-12-15] MEDS: NICOTINE 21MG/24HR PATCH TRANSDERM SCH (23:41)
[2023-12-16] MEDS: guaiFENesin-DM 100-10MG/5ML 10 ML CUP PO PRN (00:22)
[2023-12-16 08:20] LABS: HCT 25.8 % (39.6-50.0); HGB 7.6 g/dL (13.0-17.0); MCHC 29.5 g/dL (32.0-37.0); MCV 91.8 FL (80.0-97.0); Mean Platelet Volume 10.6 FL (9.5-12.2); NRBC Per 100 WBC 0.02 X 10*3/uL (0.00-0.01); Platelet Count 210 X 10*3/uL (140-440); RBC 2.81 X 10*6/uL (4.40-5.60); RDW 20.9 % (11.5-14.5); WBC 21.16 X 10*3/uL (4.50-10.00)
[2023-12-16 09:01] LABS: BUN/Creat Ratio 21.43 Ratio (12.00-20.00); Calcium 8.6 mg/dL (8.7-10.3); Carbon Dioxide 22.3 mmol/L (21.6-31.8); Chloride 104 mmol/L (96-109); Glucose 141 mg/dL (70-110); Potassium 4.1 mmol/L (3.5-5.5); Sodium 139 mmol/L (135-145)
[2023-12-16 09:44] LABS: Anisocytosis (M) 2+; Basophils # (A) 0.03 X 10*3/uL (0.00-0.10); Basophils % (A) 0.1 %; Eosinophils # (A) 0 X 10*3/uL (0.04-0.35); Eosinophils % (A) 0 %; Hypochromasia (M) 2+; Lymphocytes # (A) 0.34 X 10*3/uL (0.90-5.00); Lymphocytes % (A) 1.6 %; Monocytes # (A) 0.44 X 10*3/uL (0.20-1.00); Monocytes % (A) 2.1 %; Neutrophils # (A) 20.14 X 10*3/uL (1.80-7.70); Neutrophils % (A) 95.2 %; Polychromasia 2+
[2023-12-16] MEDS: IV FLUID CONTINUATION 1,000 ML IV ONE (12:33)
[2023-12-16] MEDS ORDERED: KETAMINE HCL IN 0.9 % NACL 50 MG/5 ML SYRINGE ONE (12:34)
[2023-12-16] MEDS ORDERED: LIDOCAINE 1% INJ 10MG/ML (20 ML MDV) ONE (12:34)
[2023-12-16] MEDS ORDERED: PROPOFOL 10 MG/ML 20 ML VIAL IV ONE (12:34)
--- NOTE | 2023-12-16 12:34 | P.PN ---
Subjective Progress Note Date: 12/16/23 No acute events, reporting some improvement in breathing today. SPO2 high 90s on room air, remains afebrile. Plan for bronchoscopy today Objective - Vital Signs Vital signs: Vital Signs Temp 97.7 F 12/16/23 11:41 Pulse 100 12/16/23 11:52 Resp 20 12/16/23 11:41 BP 124/70 12/16/23 11:41 Pulse Ox 98 12/16/23 11:41 FiO2 Intake & Output 12/15/23 12/16/23 12/16/23 18:59 06:59 18:59 Intake Total 492 Balance 492 Weight 63.503 kg Intake: Oral 492 Other: Voiding Method Toilet Toilet Toilet # Voids 2 - Constitutional General appearance: Present: no acute distress - EENT Eyes: Present: anicteric sclerae, EOMI ENT: Present: hearing grossly normal - Respiratory Details: breathing is even and unlabored - Cardiovascular Details: skin warm and dry - Integumentary Integumentary: Absent: cyanotic, jaundiced - Musculoskeletal Musculoskeletal: Present: strength equal bilaterally - Psychiatric Psychiatric: Present: A&O x's 3 - Labs CBC & Chem 7: 12/16/23 06:00 12/16/23 06:00 Labs: Abnormal Lab Results - Last 24 Hours (Table) 12/16/23 12/16/23 Range/Units 06:00 06:00 WBC 21.16 H (4.50-10.00) X 10*3/uL RBC 2.81 L (4.40-5.60) X 10*6/uL Hgb 7.6 L (13.0-17.0) g/dL Hct 25.8 L (39.6-50.0) % MCHC 29.5 L (32.0-37.0) g/dL RDW 20.9 H (11.5-14.5) % Immature Gran # 0.21 H (0.00-0.04) X 10*3/uL Neutrophils # 20.14 H (1.80-7.70) X 10*3/uL Lymphocytes # 0.34 L (0.90-5.00) X 10*3/uL Eosinophils # 0 L (0.04-0.35) X 10*3/uL NRBC/100 WBC Diff 0.02 H (0.00-0.01) X 10*3/uL Polychromasia 2+ A Hypochromasia (manual) 2+ A Anisocytosis (manual) 2+ A Anion Gap 12.70 H (4.00-12.00) mmol/L BUN/Creatinine Ratio 21.43 H (12.00-20.00) Ratio Glucose 141 H (70-110) mg/dL Calcium 8.6 L (8.7-10.3) mg/dL Microbiology - Last 24 Hours (Table) 12/14/23 19:40 Gram Stain - Preliminary Sputum 12/14/23 15:08 Nasal Screen MRSA/MSSA - Final Nasal Swab 12/14/23 13:21 Blood Culture - Preliminary Blood Assessment and Plan (1) Acute exacerbation of chronic obstructive pulmonary disease Current Visit: Yes Status: Acute Priority: High Code(s): J44.1 - CHRONIC OBSTRUCTIVE PULMONARY DISEASE W (ACUTE) EXACERBATION SNOMED Code(s): 635237422 (2) Community acquired pneumonia Current Visit: Yes Status: Acute Priority: High Code(s): J18.9 - PNEUMONIA, UNSPECIFIED ORGANISM SNOMED Code(s): 340292904 (3) Squamous cell lung cancer Current Visit: Yes Status: Chronic Priority: High Code(s): C34.90 - MALIGNANT NEOPLASM OF UNSP PART OF UNSP BRONCHUS OR LUNG SNOMED Code(s): 709916653 Plan: ERICA, pneumonia: Patient presented with exertional SOB and productive cough. Recently treated with oral abx for suspected pneumonia -On admit chest x-ray showed increased central lung markings which can be related to patient's reported left lung cancer, posterior pneumonia is considered less likely. Patient subsequently had CT chest without contrast with contrast which showed interval disease progression. Soft tissue encasing the teresa and right mainstem bronchus which is showing increasing bulk measuring up to 5.4 cm. There is mass effect onto the right main pulmonary artery narrowing at 8 mm, previously at 1.1 cm. Continuous right suprahilar mass encasing the right upper lobe bronchus measuring 3.9 cm versus 3.4 cm previously. Also there is progressive soft tissue which has developed extending superiorly and posteriorly in the right upper lobe. New left paratracheal adenopathy measuring 1.8 cm. Opacification and bronchial narrowing superior segment of the left lower lobe which is similar to previous study. Extensive left lower lobe consolidation has now resolved. New multifocal groundglass and airspace infiltrates bilaterally. Background COPD with moderate emphysema. -IV antibiotics, bronchodilators and steroids started. Pulmonology following. -Discussed with patient that CT scan showing potential progression of disease vs infectious/inflammatory process which could attribute to noted findings. Will obtain CT AP to evaluate for progression of disease within abd/pelvis, scan pending -Case discussed with rad onc, consult placed for evaluation for palliative RT to right lung mass -Plan for bronchoscopy today Pt updated on findings and POC, he was agreeable to the same NSCLC: -Oncology history as dictated in the HPI -Currently on treatment with single agent taxotere, completing last tx on 12/05/23 with G-CSF on 12/05 -Treatment will be on hold until patient acutely recovers -Clinic f/u upon discharge
[2023-12-16] MEDS: LIDOCAINE 2% URO-JET JELLY 5 ML KIT MISCELLANE ONE (12:44)
[2023-12-16] MEDS: LIDOCAINE 2% INJ 20 MG/ML INTRATRACH ONE (12:45)
[2023-12-16] MEDS: IOPAMIDOL CONTRAST (ORAL USE) VIAL PO PRN (13:14)
--- NOTE | 2023-12-16 13:18 | P.PN ---
Subjective Progress Note Date: 12/16/23 This is a 63-year-old male patient with a known history of lung cancer original diagnosed 2020. His oncologist is Dr. Hoyos. Currently receiving chemotherapy, however, recently placed on hold for 1 week. He was having chest congestion, cough with purulent sputum. His oncologist reportedly put him on IV 7-day course of antibiotics. No significant improvement after outpatient treatment, directed to the ER by Dr. Hoyos. Previous also, COPD, previous tobacco dependence, hypertension, hyperlipidemia, coronary artery disease with previous PCI/stent, ischemic cardiomyopathy, and atrial fibrillation anticoagulated on Eliquis. Previous treatment for a suspected cavitary pneumonia. Bronchoscopy with BAL May. No malignant cells noted in wash. BAL microbiology negative. Patient currently being evaluated on the medical floor. He is resting in bed on room air. Has a congested cough with yellow sputum production. No measured fevers. No hemoptysis. Chest pain is chronic due to his malignancy. Denies sick contacts. Last reported chemotherapy cycle was on December 04. No longer returning for radiation treatments. Chest x-ray done on admission showing increased central lung markings suspicious for disease progression versus pneumonia. CBC: WBC count 13.3, hemoglobin 8.9, hematocrit 29.7, platelets 176. CMP: Unremarkable. EKG: Sinus rhythm, rate 84 bpm, Q waves noted in leads I and aVL Viral screen negative for influenza, RSV, COVID. Currently on a combination of empiric antibiotics in the form of cefepime and vancomycin. Nontoxic appearance. The patient is seen today December 16, 2023 in follow-up on the regular medical floor. He is currently resting in bed. Awake and alert in no acute distress. Still with a loose congested cough. He is maintaining O2 saturations in the 90s on room air. Normal staying at KVO. Sputum cultures pending. Procalcitonin negative at 0.13. White count 21.1. Hemoglobin 7.6. Platelets 210. Sodium 139. Potassium 4.1. Bicarb 22. BUN 15. Creatinine 0.7. Glucose 141. He is continued on DuoNeb inhalations, Symbicort, Solu-Medrol. Antibiotics in the form of vancomycin and cefepime. Anticoagulated with Eliquis. NicoDerm patch i n place. Objective - Vital Signs Vital signs: Vital Signs Temp 97.7 F 12/16/23 11:41 Pulse 100 12/16/23 11:52 Resp 20 12/16/23 11:41 BP 124/70 12/16/23 11:41 Pulse Ox 98 12/16/23 11:41 FiO2 Intake & Output 12/15/23 12/16/23 12/16/23 18:59 06:59 18:59 Intake Total 492 100 Balance 492 100 Weight 63.503 kg Intake: IV 100 Oral 492 Other: Voiding Method Toilet Toilet Toilet # Voids 2 - Exam GENERAL EXAM: Alert, pleasant 63-year-old male, sitting in bed, on room air, comfortable in no apparent distress. HEAD: Normocephalic and atraumatic EYES: Normal reaction of pupils, equal size. NOSE: Clear with pink turbinates. THROAT: No erythema or exudates. NECK: No masses, no JVD. CHEST: No chest wall deformity. LUNGS: Equal air entry with diffuse bilateral rhonchi. No conversational dyspnea. CVS: S1 and S2 normal with no audible murmur, regular rhythm. No extra heart sounds ABDOMEN: No hepatosplenomegaly, active bowel sounds, no guarding or rigidity. SPINE: No scoliosis or deformity SKIN: No rashes CENTRAL NERVOUS SYSTEM: No focal deficits, tone is normal in all 4 extremities. EXTREMITIES: There is no peripheral edema, or cyanosis. Peripheral pulses are intact. Digital clubbing noted. - Labs CBC & Chem 7: 12/16/23 06:00 12/16/23 06:00 Labs: Abnormal Lab Results - Last 24 Hours (Table) 12/16/23 12/16/23 Range/Units 06:00 06:00 WBC 21.16 H (4.50-10.00) X 10*3/uL RBC 2.81 L (4.40-5.60) X 10*6/uL Hgb 7.6 L (13.0-17.0) g/dL Hct 25.8 L (39.6-50.0) % MCHC 29.5 L (32.0-37.0) g/dL RDW 20.9 H (11.5-14.5) % Immature Gran # 0.21 H (0.00-0.04) X 10*3/uL Neutrophils # 20.14 H (1.80-7.70) X 10*3/uL Lymphocytes # 0.34 L (0.90-5.00) X 10*3/uL Eosinophils # 0 L (0.04-0.35) X 10*3/uL NRBC/100 WBC Diff 0.02 H (0.00-0.01) X 10*3/uL Polychromasia 2+ A Hypochromasia (manual) 2+ A Anisocytosis (manual) 2+ A Anion Gap 12.70 H (4.00-12.00) mmol/L BUN/Creatinine Ratio 21.43 H (12.00-20.00) Ratio Glucose 141 H (70-110) mg/dL Calcium 8.6 L (8.7-10.3) mg/dL Microbiology - Last 24 Hours (Table) 12/14/23 19:40 Gram Stain - Preliminary Sputum 12/14/23 15:08 Nasal Screen MRSA/MSSA - Final Nasal Swab 12/14/23 13:21 Blood Culture - Preliminary Blood Assessment and Plan Assessment: Acute COPD exacerbation, chest x-ray done on admission showing increased central lung markings suspicious for disease progression. Procalcitonin negative. Metastatic squamous cell carcinoma, likely with disease progression, chest CT pending Acute on chronic shortness of breath, secondary to a combination of above Acute leukocytosis Chronic anemia History of hypertension History of hyperlipidemia History of coronary artery disease with previous PCI/stent History of ischemic cardiomyopathy, most recent echocardiogram available from 08/27/2022 estimates an impaired left ventricular systolic ejection fraction of 35% Chronic ongoing tobacco dependence, patient restarted smoking History of ocular herpes History of paroxysmal atrial fibrillation, anticoagulated on Eliquis Plan: The patient was seen and evaluated Labs and medications reviewed Procalcitonin negative Antibiotics discontinued Plan is for bronchoscopy with BAL today Currently stable and on room air We will continue to follow I have personally seen and examined the patient, performed the documentation and the assessment and plan as written. Number of minutes spent on the visit: 10 Dictation was produced using [employer] dictation software. Please excuse any grammatical, word or spelling errors.
--- NOTE | 2023-12-16 13:27 | P.PN ---
Subjective Progress Note Date: 12/16/23 Hospital course Patient is a 63-year-old male with a past medical history of stage IV lung cancer, history of lung abscess, COPD with intermittent home O2, coronary artery disease with stents, history of SVT, hypertension, hyperlipidemia, chronic systolic heart failure who presents to the ED with dyspnea and productive cough that has been ongoing for 1 month. Patient states that his last chemotherapy was 2 weeks ago. He states that last week his oncologist started him on ant ibiotics for possible pneumonia. Patient states that with the antibiotics his symptoms did improve however then started to worsen again so he came into the emergency room. Patient continues to smoke cigarettes and his girlfriend also smokes. In the ED WBC is 13.3, hemoglobin 8.9. Chest x-ray showed increased central lung markings can be related to patient's reported left lung cancer and posterior pneumonia is considered less likely. In the ED patient was given Solu-Medrol 125 mg, DuoNeb, Rocephin and azithromycin. Patient was then referred for admission. Since patient is immunocompromise he was started on vancomycin pharmacy to dose and cefepime. Patient was also started on IV Solu-Medrol and breathing treatments for COPD exacerbation. Patient had a CT scan that showed progressing of his lung cancer. Pulmonology planning on doing bronchoscopy. Patient seen this morning. He states that he still feels short of breath. 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 Today WBC is 21.16 suspect due to steroids. Continue with IV vancomycin PTD, cefepime IV 2 mg every 8 hours I reviewed procalcitonin which is 0.13. Patient is scheduled for bronchoscopy today Follow-up on sputum culture Follow-up on blood culture Follow-up on MRSA screen Continue with Tesgennaro Luu and Negar for cough CT chest showed new multifocal groundglass and airspace infiltrates bilaterally. COPD exacerbation Continue with IV Solu-Medrol 60 mg every 6 hours DuoNeb 4 times a day and as needed Stage IV lung cancer CT chest shows progressing of his malignancy I reviewed oncology note who consulted radiation oncology. Coronary artery disease Continue with aspirin 81 mg daily and Lipitor 80 mg at bedtime Afib Continue with amiodarone 200 mg p.o. daily and metoprolol 12.5 mg p.o. twice daily and Eliquis 5mg PO BID Hypertension Continue with metoprolol Chronic systolic heart failure Patient currently appears hypovolemic. He does have lower extremity edema which could be a reaction from chemotherapy. Patient is not on any diuretics Patient's last echocardiogram showed EF of 55 to 60% done in August 2023. Prior echocardiogram showed EF of 35%. Continue with beta-agnes Tobacco use Patient counseled on avoiding smoking as well as secondhand smoking DVT prophylaxis: Eliquis Patient's prognosis is guarded. Objective - Vital Signs Vital signs: Vital Signs Temp 97.7 F 12/16/23 11:41 Pulse 100 12/16/23 11:52 Resp 20 12/16/23 11:41 BP 124/70 12/16/23 11:41 Pulse Ox 98 12/16/23 11:41 FiO2 Intake & Output 12/15/23 12/16/23 12/16/23 18:59 06:59 18:59 Intake Total 492 100 Balance 492 100 Weight 63.503 kg Intake: IV 100 Oral 492 Other: Voiding Method Toilet Toilet Toilet # Voids 2 - Labs CBC & Chem 7: 12/16/23 06:00 12/16/23 06:00 Labs: Abnormal Lab Results - Last 24 Hours (Table) 12/16/23 12/16/23 Range/Units 06:00 06:00 WBC 21.16 H (4.50-10.00) X 10*3/uL RBC 2.81 L (4.40-5.60) X 10*6/uL Hgb 7.6 L (13.0-17.0) g/dL Hct 25.8 L (39.6-50.0) % MCHC 29.5 L (32.0-37.0) g/dL RDW 20.9 H (11.5-14.5) % Immature Gran # 0.21 H (0.00-0.04) X 10*3/uL Neutrophils # 20.14 H (1.80-7.70) X 10*3/uL Lymphocytes # 0.34 L (0.90-5.00) X 10*3/uL Eosinophils # 0 L (0.04-0.35) X 10*3/uL NRBC/100 WBC Diff 0.02 H (0.00-0.01) X 10*3/uL Polychromasia 2+ A Hypochromasia (manual) 2+ A Anisocytosis (manual) 2+ A Anion Gap 12.70 H (4.00-12.00) mmol/L BUN/Creatinine Ratio 21.43 H (12.00-20.00) Ratio Glucose 141 H (70-110) mg/dL Calcium 8.6 L (8.7-10.3) mg/dL Microbiology - Last 24 Hours (Table) 12/14/23 19:40 Gram Stain - Preliminary Sputum 12/14/23 15:08 Nasal Screen MRSA/MSSA - Final Nasal Swab 12/14/23 13:21 Blood Culture - Preliminary Blood
--- NOTE | 2023-12-16 13:56 | PCN ---
PROCEDURE NOTE PROCEDURES PERFORMED: Bronchoscopy, airway examination, therapeutic lavage, BAL. There was informed consent and universal timeout. COUNT TEAM CLERK: Dr. Braga. FIRST REPAIRER RECREATIONAL VEHICLE: Dr. Francisca Don. The patient's procedure was done [facility]. There was informed consent and universal timeout. ANESTHESIA PROVIDED: Monitored anesthesia care. PREOPERATIVE DIAGNOSES: Retained secretions, lung cancer, chronic obstructive pulmonary disease. POSTOPERATIVE DIAGNOSES: Retained secretions, lung cancer, chronic obstructive pulmonary disease. DESCRIPTION OF PROCEDURE: After the patient was adequately sedated and being fully monitored, the bronchoscope was inserted through the right nostril. It passed through the right nasopharynx into the oropharynx. The hypopharynx was identified and topicalized. The hypopharyngeal structures, including anterior commissure, true cords, false cords, arytenoids, piriform sinuses, right and left, vallecula, and epiglottis, all appeared relatively normal. The glottic opening was topicalized. The bronchoscope was pushed through the glottic opening into the trachea. The trachea was a bit torturous. Tracheal teresa was a bit thickened. The right and left mainstem were topicalized. On the left side, it appeared that the patient had a previous left lower lobectomy. The patient still has the appearance of the left upper lobe, with both the left upper lobe proper and lingula. There was some thickening of the mucosa, but there was no distinct mass or lesion. Secretions were noted. They were suctioned with the aid of saline lavage. On the right side, after topicalization, we were able to enter the right upper lobe and also the right middle lobe and right lower lobe. The oblique teresa the right upper lobe from the bronchus intermedius was very thickened, and likely infiltrated with malignancy. We were able to remove secretions with the aid of saline lavage. There was distinct mucosal irregularities throughout. The right middle lobe was wet. The bronchoscope was wedged into the right middle lobe. A formal BAL took place. More than 30 mL of turbid fluid was recovered. It will be sent to the laboratory for analysis. Afterwards, additional secretions were suctioned and the bronchoscope was withdrawn. There was no immediate complication. The patient tolerated the procedure well. The patient will be recovered and taken back to his room. MMODL / IJN: [id number] /
--- NOTE | 2023-12-16 14:43 | P.CONS ---
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 He has undergone several lines of therapy. He completed only a partial course of radiotherapy (6/10 treatments) in 08/2023. He resumed systemic therapy. The patient presents with community acquired pneumonia. The patient reports he has had worsening cough and dyspnea over the past month. He presented to the emergency room on December 13. A computed tomography scan of the chest on December 14 revealed likely disease progression with increasing prominence of the right upper lung and right carinal disease. There was also new infiltrative changes in the right upper lung and left lower lung, consistent with pneumonia. The patient had been undergoing outpatient antibiotics without much improvement. He underwent bronchoscopy earlier today. He states that following his bronchoscopy he is feeling significantly better. He is able to take a deep breath. He denies chest pain. Review of Systems Constitutional: Denies chills, Denies fever Eyes: denies blurred vision Ears, nose, mouth and throat: Denies headache Cardiovascular: Denies chest pain Respiratory: Reports as per HPI Gastrointestinal: Denies abdominal pain Integumentary: Denies rash Neurological: Denies ataxia, Denies confusion Past Medical History Past Medical History: Atrial Fibrillation, Coronary Artery Disease (CAD), Cancer, Chest Pain / Angina, COPD, Hyperlipidemia, Hypertension, Myocardial Infarction ([place]) Additional Past Medical History / Comment(s): SVT with chest pain/palpitations- chemically converted(2023), lung cancer with chemo and radiation Last Myocardial Infarction Date:: 2017 History of Any Multi-Drug Resistant Organisms: MRSA Year Discovered:: 12/23/2013 MDRO Source:: Face Past Surgical History: Heart Catheterization With Stent Additional Past Surgical History / Comment(s): I&D of Right inframandibular abscess. 3 cardiac stents, bronchoscopy for abscess Past Anesthesia/Blood Transfusion Reactions: No Reported Reaction Additional Past Anesthesia/Blood Transfusion Reaction / Comm: platelet transfusions with no reaction r/t chemo Date of Last Stent Placement:: 2017 Past Psychological History: No Psychological Hx Reported Additional Psychological History / Comment(s): He resides with his son. He uses no assistive devices. He no longer drives, his son takes him places. Smoking Status: Current some day smoker Past Alcohol Use History: None Reported Additional Past Alcohol Use History / Comment(s): Pt started smoking when he was 13 1ppd and quit 1 year ago. patient occasionally still smokes a cigarette every couple of days - Past Family History Father Family Medical History: No Reported History Additional Family Medical History / Comment(s): Father of "natural causes" at the age of 79yrs. Mother Family Medical History: COPD, Coronary Artery Disease (CAD) Additional Family Medical History / Comment(s): Mother is 76yrs old. She has had several MIs, 6 cardiac stents and a 4 vessel CABG. Medications and Allergies Home Medications Medication Instructions Recorded Confirmed Type Atorvastatin [Lipitor] 80 mg PO HS 03/04/21 12/14/23 History Spiriva Respimat 1.25mcg/Actuation 2 puff INHALATION RT-HS #0 09/01/22 12/14/23 Rx Mist Hydrocodone/Acetaminophen 1 tab PO QID PRN 06/06/23 12/14/23 History [Hydrocodone/Acetaminophen 10-300 mg] Amiodarone [Cordarone] 200 mg PO DAILY #30 tab 09/11/23 12/14/23 Rx Apixaban [Eliquis] 5 mg PO BID 30 Days #60 tab 09/11/23 12/14/23 Rx Chemo (Unknown) 1 dose IV Q21D 12/14/23 12/14/23 History Cholecalciferol [Vitamin D3 (25 50 mcg PO DAILY 12/14/23 12/14/23 History Mcg = 1000 Iu)] Omeprazole [PriLOSEC] 40 mg PO DAILY PRN 12/14/23 12/14/23 History Ondansetron [Zofran] 4 mg PO Q4H PRN 12/14/23 12/14/23 History Pegfilgrastim-Jmdb [Fulphila] 6 mg SQ Q21D 12/14/23 12/14/23 History Prochlorperazine [Compazine] 10 mg PO Q6H PRN 12/14/23 12/14/23 History dexAMETHasone [Decadron] 8 mg PO DIRECTED 12/14/23 12/14/23 History Allergies Allergy/AdvReac Type Severity Reaction Status Date / Time Penicillins Allergy Dyspnea & Verified 12/14/23 16:23 Hives all over Physical Exam Vitals: Vital Signs Temp Pulse Pulse Resp BP Pulse Ox 12/16/23 13:39 97.6 F 85 20 149/73 94 L 12/16/23 11:52 100 12/16/23 11:41 97.7 F 93 20 124/70 98 12/16/23 11:39 100 12/16/23 09:36 97.6 F 82 20 126/79 96 12/16/23 07:28 97.9 F 81 18 129/78 96 12/16/23 07:05 97.6 F 80 17 128/79 97 12/16/23 02:00 97.6 F 81 14 122/74 97 12/15/23 20:00 98.1 F 87 16 124/73 97 12/15/23 18:51 80 12/15/23 18:41 76 12/15/23 15:53 80 12/15/23 15:41 80 Intake and Output 12/15/23 12/16/23 12/16/23 22:59 06:59 14:59 Intake Total 492 100 Balance 492 100 Intake: IV 100 Oral 492 Other: Voiding Method Toilet Toilet # Voids 2 - Constitutional General appearance: no acute distress - EENT Eyes: EOMI, PERRLA ENT: hearing grossly normal - Neck Neck: no lymphadenopathy - Respiratory Respiratory: bilateral: CTA - Cardiovascular Rhythm: regular - Gastrointestinal General gastrointestinal: no distended, no tenderness - Integumentary Integumentary: no calor - Neurologic Neurologic: CNII-XII intact - Musculoskeletal Musculoskeletal: gait normal - Psychiatric Psychiatric: A&O x's 3, appropriate affect Results CBC & Chem 7: 12/16/23 06:00 12/16/23 06:00 Labs: Abnormal Lab Results - Last 24 Hours (Table) 12/16/23 12/16/23 Range/Units 06:00 06:00 WBC 21.16 H (4.50-10.00) X 10*3/uL RBC 2.81 L (4.40-5.60) X 10*6/uL Hgb 7.6 L (13.0-17.0) g/dL Hct 25.8 L (39.6-50.0) % MCHC 29.5 L (32.0-37.0) g/dL RDW 20.9 H (11.5-14.5) % Immature Gran # 0.21 H (0.00-0.04) X 10*3/uL Neutrophils # 20.14 H (1.80-7.70) X 10*3/uL Lymphocytes # 0.34 L (0.90-5.00) X 10*3/uL Eosinophils # 0 L (0.04-0.35) X 10*3/uL NRBC/100 WBC Diff 0.02 H (0.00-0.01) X 10*3/uL Polychromasia 2+ A Hypochromasia (manual) 2+ A Anisocytosis (manual) 2+ A Anion Gap 12.70 H (4.00-12.00) mmol/L BUN/Creatinine Ratio 21.43 H (12.00-20.00) Ratio Glucose 141 H (70-110) mg/dL Calcium 8.6 L (8.7-10.3) mg/dL Microbiology - Last 24 Hours (Table) 12/14/23 19:40 Gram Stain - Preliminary Sputum Sputum Culture - Preliminary Presumptive Staph aureus 12/14/23 15:08 Nasal Screen MRSA/MSSA - Final Nasal Swab 12/14/23 13:21 Blood Culture - Preliminary Blood CT scan - chest: report reviewed, image reviewed Assessment and Plan Assessment: The patient is a 62-year-old male, previously diagnosed with a stage WHIT (cT3, 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 He has undergone several lines of therapy. He completed only a partial course of radiotherapy (6/10 treatments) in 08/2023. He resumed systemic therapy. The patient presents with community acquired pneumonia. Plan: 1. Non-small cell lung cancer: As detailed above, the patient completed only partial course of palliative radiotherapy in August. He was hospitalized during his radiotherapy and found to have A-fib. He elected to discontinue radiation as he was worried this was causing some of the symptoms. The patient is still likely having postobstructive pneumonia secondary to malignancy involving the proximal airways bilaterally. I explained that he would be a candidate for additional palliative radiotherapy considering he only had a partial treatment in August. However, the patient is reluctant to undergo additional radiation at this time. He feels he is breathing better following his bronchoscopy, and is hoping to continue with systemic therapy. If his breathing again worsens, he states he would be amenable to radiotherapy at that time. Time with Patient: Greater than 30
--- NOTE | 2023-12-16 15:17 | CT ---
EXAMINATION TYPE: CT abdomen pelvis w con CT DLP: 1187 mGycm, Automated exposure control for dose reduction was used. DATE OF EXAM: 12/16/2023 2:51 PM COMPARISON: CT chest 12/15/2023, CT chest and pelvis 06/01/2023 CLINICAL INDICATION:Male, 63 years old with history of hx metastatic lung cancer; Hx metastatic lung cancer. TECHNIQUE: Standard CT of the abdomen and pelvis following the administration of 100 cc of Isovue 3 00 IV contrast material and oral contrast. Coronal and sagittal reformats were performed. FINDINGS: LOWER CHEST: Emphysematous changes redemonstrated. Increasing right middle lobe reticular groundglass opacities. Similar left lower lobe reticular groundglass opacities. Coronary artery calcifications. Trace pericardial effusion. No pleural effusions identified. ABDOMEN LIVER: Focal fatty infiltration adjacent to the falciform ligament in segment IVb GALLBLADDER AND BILE DUCTS: Unremarkable. PANCREAS: Unremarkable. SPLEEN: Unremarkable. ADRENAL GLANDS: Unremarkable. KIDNEYS AND URETERS: No evidence of hydronephrosis or renal calculus. The is an symmetrically. Contra st is demonstrated within both collecting systems on delayed phase. PELVIS BLADDER: Unremarkable REPRODUCTIVE: Coarse calcifications of the prostate gland are identified. ABDOMEN & PELVIS STOMACH AND BOWEL: Residual contrast material within the distal esophagus. Enteric contrast reaches t he mid small bowel. Moderate colonic stool burden. No focal bowel wall thickening or surrounding infl ammatory changes. No evidence of bowel obstruction. PERITONEUM: No evidence of pneumoperitoneum or free fluid. VASCULATURE: Mild atherosclerotic calcifications are present throughout the abdominal aorta and its b ranches. No evidence of aortic aneurysm. MUSCULOSKELETAL: No acute osseous abnormalities. No aggressive osseous lesion. Mild multilevel degene rative disc disease. LYMPH NODES: No enlarged lymph nodes greater than 1 cm short axis. SOFT TISSUE/ABDOMINAL WALL: Mild diffuse anasarca. IMPRESSION: 1. No CT evidence of metastatic disease within the abdomen or pelvis. 2. Similar left lower lobe reticular opacities with increased right middle lobe reticular opacities f rom prior exam concerning for worsening infectious or inflammatory pneumonitis. [facility], , 12/16/2023 3:15 PM
[2023-12-16] MEDS: VANCOMYCIN TROUGH DUE 1 EACH MISC MISCELLANE ONE (16:25)
--- NOTE | 2023-12-16 17:59 | CDI ---
Documentation Clarification Form Date: 12/16/2023 05:35:00 PM From: Sarah An RN, CCDS Phone: [phone] Admit Date: 12/14/2023 02:30:00 PM Patient Name: Fracisco Rene Visit Number: [id number] Discharge Date: ATTENTION: The Clinical Documentation Specialists (CDI) and [facility] Coding Staff appreciate your assistance in clarifying documentation. Please respond to the clarification below the line at the bottom and electronically sign. The CDI & [facility] Coding staff will review the response and follow-up if needed. Please note: Queries are made part of the Legal Health Record. If you have any questions, please contact the author of this message via ITS. Doctor/Provider: Steve Willingham Your patient has documentation of cachectic appearing. Based on this information and the findings below, is there an additional diagnosis that is clinically appropriate for this patient? Patient history/risk factors: COPD, Pneumonia, Stage IV Lung CA, Lung abscess, Hypertension Hyperlipidemia Current same day smoker Clinical Indicators: 63-year-old male with a past medical history of stage IV lung cancer, COPD with intermittent home O2, He has wheezes, rhonchi, decreased breath sounds. Labs Na+ 134, Total Protein 6.2, Albumin 3.2 Calcium 8.7, 8.1 He is underweight BMI 18.4 Height 6 ft 1 in He has cachexia. He is meeting 75% of estimated nutritional needs Treatment: General/healthful diet Ensure enlive BID Monitor Intake Is there an additional diagnosis that is clinically appropriate for this patient? [ ] Mild protein calorie malnutrition [ ] Moderate protein calorie malnutrition [ X] Severe protein calorie malnutrition [ ] Unable to determine [ ] Other, please specify (Template Last Reviewed: March 2022) MTDD
[2023-12-16] MEDS ORDERED: DEXTROSE 50% SYRINGE 50 ML IVP PRN ×2 (18:38)
[2023-12-16 20:17] LABS: Glucose,Whole Blood 178 mg/dL (70-110)
[2023-12-16] MEDS: INSULIN ASPART (NovoLOG) 100 UNIT/ML VIAL SQ SCH (20:56)
[2023-12-16 21:38] LABS: Appearance,BF Cloudy (Clear); RBC, Body Fluid 450 /UL (0-2000)
[2023-12-16] MEDS: NICOTINE 21MG/24HR PATCH TRANSDERM SCH (23:45)
[2023-12-17 07:20] LABS: Glucose,Whole Blood 139 mg/dL (70-110)
--- NOTE | 2023-12-17 08:07 | P.PN ---
Subjective Progress Note Date: 12/17/23 This is a 63-year-old male patient with a known history of lung cancer original diagnosed 2020. His oncologist is Dr. Hoyos. Currently receiving chemotherapy, however, recently placed on hold for 1 week. He was having chest congestion, cough with purulent sputum. His oncologist reportedly put him on IV 7-day course of antibiotics. No significant improvement after outpatient treatment, directed to the ER by Dr. Hoyos. Previous also, COPD, previous tobacco dependence, hypertension, hyperlipidemia, coronary artery disease with previous PCI/stent, ischemic cardiomyopathy, and atrial fibrillation anticoagulated on Eliquis. Previous treatment for a suspected cavitary pneumonia. Bronchoscopy with BAL May. No malignant cells noted in wash. BAL microbiology negative. Patient currently being evaluated on the medical floor. He is resting in bed on room air. Has a congested cough with yellow sputum production. No measured fevers. No hemoptysis. Chest pain is chronic due to his malignancy. Denies sick contacts. Last reported chemotherapy cycle was on December 04. No longer returning for radiation treatments. Chest x-ray done on admission showing increased central lung markings suspicious for disease progression versus pneumonia. CBC: WBC count 13.3, hemoglobin 8.9, hematocrit 29.7, platelets 176. CMP: Unremarkable. EKG: Sinus rhythm, rate 84 bpm, Q waves noted in leads I and aVL Viral screen negative for influenza, RSV, COVID. Currently on a combination of empiric antibiotics in the form of cefepime and vancomycin. Nontoxic appearance. The patient is seen today December 16, 2023 in follow-up on the regular medical floor. He is currently resting in bed. Awake and alert in no acute distress. Still with a loose congested cough. He is maintaining O2 saturations in the 90s on room air. Normal staying at KVO. Sputum cultures pending. Procalcitonin negative at 0.13. White count 21.1. Hemoglobin 7.6. Platelets 210. Sodium 139. Potassium 4.1. Bicarb 22. BUN 15. Creatinine 0.7. Glucose 141. He is continued on DuoNeb inhalations, Symbicort, Solu-Medrol. Antibiotics in the form of vancomycin and cefepime. Anticoagulated with Eliquis. NicoDerm patch i n place. The patient is seen today December 17, 2023 in follow-up on the regular medical floor. He is currently sitting up in bed. Awake and alert in no acute distress. He is maintaining good O2 saturations in the 90s on room air. He is feeling significantly better. Less cough and congestion. He did undergo bronchoscopy with bronchial alveolar lavage yesterday. Fluid culture and cytology pending. He is afebrile. Hemodynamically stable. CT scan of the abdomen pelvis revealed no evidence of metastatic disease. Similar left lower lobe reticular opacities with right middle lobe opacities remain. Sputum culture positive for presumptive Staph aureus. Procalcitonin was negative at 0.13. Blood culture reveals no growth. Objective - Vital Signs Vital signs: Vital Signs Temp 97.4 F L 12/17/23 07:43 Pulse 76 12/17/23 07:43 Resp 17 12/17/23 07:43 BP 126/72 12/17/23 07:43 Pulse Ox 98 12/17/23 07:43 FiO2 Intake & Output 12/16/23 12/17/23 12/17/23 18:59 06:59 18:59 Intake Total 340 Balance 340 Intake: IV 100 Oral 240 Other: Voiding Method Toilet Toilet # Voids 2 2 - Exam GENERAL EXAM: Alert, pleasant 63-year-old male, on room air, in no apparent distress. HEAD: Normocephalic and atraumatic EYES: Normal reaction of pupils, equal size. NOSE: Clear with pink turbinates. THROAT: No erythema or exudates. NECK: No masses, no JVD. CHEST: No chest wall deformity. LUNGS: Equal air entry with diffuse bilateral rhonchi. No conversational dyspnea. CVS: S1 and S2 normal with no audible murmur, regular rhythm. No extra heart sounds ABDOMEN: No hepatosplenomegaly, active bowel sounds, no guarding or rigidity. SPINE: No scoliosis or deformity SKIN: No rashes CENTRAL NERVOUS SYSTEM: No focal deficits, tone is normal in all 4 extremities. EXTREMITIES: There is no peripheral edema, or cyanosis. Peripheral pulses are intact. Digital clubbing noted. - Labs CBC & Chem 7: 12/16/23 06:00 12/16/23 06:00 Labs: Abnormal Lab Results - Last 24 Hours (Table) 12/16/23 12/16/23 12/16/23 Range/Units 06:00 06:00 12:45 WBC 21.16 H (4.50-10.00) X 10*3/uL RBC 2.81 L (4.40-5.60) X 10*6/uL Hgb 7.6 L (13.0-17.0) g/dL Hct 25.8 L (39.6-50.0) % MCHC 29.5 L (32.0-37.0) g/dL RDW 20.9 H (11.5-14.5) % Immature Gran # 0.21 H (0.00-0.04) X 10*3/uL Neutrophils # 20.14 H (1.80-7.70) X 10*3/uL Lymphocytes # 0.34 L (0.90-5.00) X 10*3/uL Eosinophils # 0 L (0.04-0.35) X 10*3/uL NRBC/100 WBC Diff 0.02 H (0.00-0.01) X 10*3/uL Polychromasia 2+ A Hypochromasia (manual) 2+ A Anisocytosis (manual) 2+ A Anion Gap 12.70 H (4.00-12.00) mmol/L BUN/Creatinine Ratio 21.43 H (12.00-20.00) Ratio Glucose 141 H (70-110) mg/dL POC Glucose (mg/dL) (70-110) mg/dL Calcium 8.6 L (8.7-10.3) mg/dL Fluid Appearance Cloudy A (Clear) 12/16/23 12/17/23 Range/Units 20:16 07:18 WBC (4.50-10.00) X 10*3/uL RBC (4.40-5.60) X 10*6/uL Hgb (13.0-17.0) g/dL Hct (39.6-50.0) % MCHC (32.0-37.0) g/dL RDW (11.5-14.5) % Immature Gran # (0.00-0.04) X 10*3/uL Neutrophils # (1.80-7.70) X 10*3/uL Lymphocytes # (0.90-5.00) X 10*3/uL Eosinophils # (0.04-0.35) X 10*3/uL NRBC/100 WBC Diff (0.00-0.01) X 10*3/uL Polychromasia Hypochromasia (manual) Anisocytosis (manual) Anion Gap (4.00-12.00) mmol/L BUN/Creatinine Ratio (12.00-20.00) Ratio Glucose (70-110) mg/dL POC Glucose (mg/dL) 178 H 139 H (70-110) mg/dL Calcium (8.7-10.3) mg/dL Fluid Appearance (Clear) Microbiology - Last 24 Hours (Table) 12/16/23 12:45 Gram Stain - Preliminary Bronchoalviolar Lavage - Right 12/14/23 13:21 Blood Culture - Preliminary Blood 12/14/23 19:40 Gram Stain - Preliminary Sputum Sputum Culture - Preliminary Presumptive Staph aureus Assessment and Plan Assessment: Acute COPD exacerbation, chest x-ray done on admission showing increased central lung markings suspicious for disease progression. Procalcitonin negative Metastatic squamous cell carcinoma, likely with disease progression. Followed by medical and radiation oncology Acute on chronic shortness of breath, secondary to a combination of above Acute leukocytosis Chronic anemia History of hypertension History of hyperlipidemia History of coronary artery disease with previous PCI/stent History of ischemic cardiomyopathy, most recent echocardiogram available from 08/27/2022 estimates an impaired left ventricular systolic ejection fraction of 35% Chronic ongoing tobacco dependence, patient restarted smoking History of ocular herpes History of paroxysmal atrial fibrillation, anticoagulated on Eliquis Plan: The patient was seen and evaluated Labs and medications reviewed Preliminary cultures reviewed Procalcitonin negative Bronchoscopy with BAL yesterday Will wait for final culture results Currently stable and on room air This patient was seen independently by the pulmonary nurse practitioner addressing pulmonary issues I have personally seen and examined the patient, performed the documentation and the assessment and plan as written. Number of minutes spent on the visit: 25 Dictation was produced using [employer] dictation software. Please excuse any grammatical, word or spelling errors.
[2023-12-17 09:09] LABS: HGB 7.8 g/dL (13.0-17.0); MCH 26.5 pg (27.0-32.0); MCHC 28.9 g/dL (32.0-37.0); MCV 91.8 FL (80.0-97.0); Mean Platelet Volume 10.1 FL (9.5-12.2); NRBC Per 100 WBC 0.02 X 10*3/uL (0.00-0.01); Platelet Count 237 X 10*3/uL (140-440); RBC 2.94 X 10*6/uL (4.40-5.60); RDW 21.2 % (11.5-14.5); WBC 18.99 X 10*3/uL (4.50-10.00)
[2023-12-17 09:22] LABS: BUN/Creat Ratio 23.29 Ratio (12.00-20.00); Blood Urea Nitrogen 16.3 mg/dL (9.0-27.0); Calcium 8.8 mg/dL (8.7-10.3); Carbon Dioxide 23.6 mmol/L (21.6-31.8); Chloride 104 mmol/L (96-109); Glucose 135 mg/dL (70-110); Potassium 3.8 mmol/L (3.5-5.5); Sodium 138 mmol/L (135-145)
[2023-12-17 10:38] LABS: Anisocytosis (M) 2+; Basophils # (A) 0.02 X 10*3/uL (0.00-0.10); Basophils % (A) 0.1 %; Eosinophils # (A) 0 X 10*3/uL (0.04-0.35); Eosinophils % (A) 0 %; Hypochromasia (M) 2+; Lymphocytes # (A) 0.32 X 10*3/uL (0.90-5.00); Lymphocytes % (A) 1.7 %; Monocytes # (A) 0.13 X 10*3/uL (0.20-1.00); Monocytes % (A) 0.7 %; Neutrophils # (A) 18.38 X 10*3/uL (1.80-7.70); Neutrophils % (A) 96.8 %; Polychromasia 2+
--- NOTE | 2023-12-17 11:24 | P.PN ---
Subjective Progress Note Date: 12/17/23 Hospital course Patient is a 63-year-old male with a past medical history of stage IV lung cancer, history of lung abscess, COPD with intermittent home O2, coronary artery disease with stents, history of SVT, hypertension, hyperlipidemia, chronic systolic heart failure who presents to the ED with dyspnea and productive cough that has been ongoing for 1 month. Patient states that his last chemotherapy was 2 weeks ago. He states that last week his oncologist started him on ant ibiotics for possible pneumonia. Patient states that with the antibiotics his symptoms did improve however then started to worsen again so he came into the emergency room. Patient continues to smoke cigarettes and his girlfriend also smokes. In the ED WBC is 13.3, hemoglobin 8.9. Chest x-ray showed increased central lung markings can be related to patient's reported left lung cancer and posterior pneumonia is considered less likely. In the ED patient was given Solu-Medrol 125 mg, DuoNeb, Rocephin and azithromycin. Patient was then referred for admission. Since patient is immunocompromise he was started on vancomycin pharmacy to dose and cefepime. Patient was also started on IV Solu-Medrol and breathing treatments for COPD exacerbation. Patient had a CT scan that showed progressing of his lung cancer. Pulmonology planning on doing bronchoscopy. Patient seen this morning. He states that he still feels short of breath. Physical exam General examination - Alert and Oriented 3 in NAD, cachectic appearing Heart - + S1S2 no murmurs Lungs -mild wheezing bilaterally Abdomen soft NT ND +ve BS Extremities - No edema CERT OCCUPATIONAL THERAPY ASST - Moving all 4 extremities spontaneously Psych - Calm and cooperative Assessment and plan Obstructive pneumonia with sputum culture growing Staph aureus Sepsis on admission with leukocytosis and tachypnea Continue with IV vancomycin PTD, cefepime IV 2 mg every 8 hours I reviewed procalcitonin which is 0.13. Patient had bronchoscopy done on 12/16/2023. Follow-up on BAL Sputum cultures growing Staph aureus. Follow-up on sputum culture until finalized Blood cultures negative to date Continue with Tescarlon Jus and Rolandsin for cough CT chest showed new multifocal groundglass and airspace infiltrates bilaterally. I reviewed pulmonology note from today who is recommending to follow-up on sputum culture until finalized. Patient states that after the bronchoscopy he is feeling much better. He is hoping to go home soon. WBC normalized and then increased again so likely due to steroids. WBC this morning is 18.99 which is improving from yesterday COPD exacerbation Continue with IV Solu-Medrol 60 mg every 6 hours DuoNeb 4 times a day and as needed Stage IV lung cancer CT chest shows progressing of his malignancy CT abdomen pelvis reviewed and showed no metastasis I reviewed note from radiation oncology. Patient refused radiation at this time. Patient feels better after the bronchoscopy so does not feel he needs radiation at this time. Coronary artery disease Continue with aspirin 81 mg daily and Lipitor 80 mg at bedtime Afib Continue with amiodarone 200 mg p.o. daily and metoprolol 12.5 mg p.o. twice daily and Eliquis 5mg PO BID Hypertension Continue with metoprolol Chronic systolic heart failure Patient currently appears hypovolemic. He does have lower extremity edema which could be a reaction from chemotherapy. Patient is not on any diuretics Patient's last echocardiogram showed EF of 55 to 60% done in August 2023. Prior echocardiogram showed EF of 35%. Continue with beta-agnes Tobacco use Patient counseled on avoiding smoking as well as secondhand smoking DVT prophylaxis: Eliquis Patient's prognosis is guarded. Objective - Vital Signs Vital signs: Vital Signs Temp 97.4 F L 12/17/23 07:43 Pulse 98 12/17/23 09:08 Resp 17 12/17/23 07:43 BP 126/72 12/17/23 07:43 Pulse Ox 100 12/17/23 08:55 FiO2 Intake & Output 12/16/23 12/17/23 12/17/23 18:59 06:59 18:59 Intake Total 340 Balance 340 Intake: IV 100 Oral 240 Other: Voiding Method Toilet Toilet # Voids 2 2 - Labs CBC & Chem 7: 12/17/23 03:22 12/17/23 03:22 Labs: Abnormal Lab Results - Last 24 Hours (Table) 12/16/23 12/16/23 12/17/23 Range/Units 12:45 20:16 03:22 WBC 18.99 H (4.50-10.00) X 10*3/uL RBC 2.94 L (4.40-5.60) X 10*6/uL Hgb 7.8 L (13.0-17.0) g/dL Hct 27.0 L (39.6-50.0) % MCH 26.5 L (27.0-32.0) pg MCHC 28.9 L (32.0-37.0) g/dL RDW 21.2 H (11.5-14.5) % Immature Gran # 0.14 H (0.00-0.04) X 10*3/uL Neutrophils # 18.38 H (1.80-7.70) X 10*3/uL Lymphocytes # 0.32 L (0.90-5.00) X 10*3/uL Monocytes # 0.13 L (0.20-1.00) X 10*3/uL Eosinophils # 0 L (0.04-0.35) X 10*3/uL NRBC/100 WBC Diff 0.02 H (0.00-0.01) X 10*3/uL Polychromasia 2+ A Hypochromasia (manual) 2+ A Anisocytosis (manual) 2+ A BUN/Creatinine Ratio (12.00-20.00) Ratio Glucose (70-110) mg/dL POC Glucose (mg/dL) 178 H (70-110) mg/dL Fluid Appearance Cloudy A (Clear) 12/17/23 12/17/23 Range/Units 03:22 07:18 WBC (4.50-10.00) X 10*3/uL RBC (4.40-5.60) X 10*6/uL Hgb (13.0-17.0) g/dL Hct (39.6-50.0) % MCH (27.0-32.0) pg MCHC (32.0-37.0) g/dL RDW (11.5-14.5) % Immature Gran # (0.00-0.04) X 10*3/uL Neutrophils # (1.80-7.70) X 10*3/uL Lymphocytes # (0.90-5.00) X 10*3/uL Monocytes # (0.20-1.00) X 10*3/uL Eosinophils # (0.04-0.35) X 10*3/uL NRBC/100 WBC Diff (0.00-0.01) X 10*3/uL Polychromasia Hypochromasia (manual) Anisocytosis (manual) BUN/Creatinine Ratio 23.29 H (12.00-20.00) Ratio Glucose 135 H (70-110) mg/dL POC Glucose (mg/dL) 139 H (70-110) mg/dL Fluid Appearance (Clear) Microbiology - Last 24 Hours (Table) 12/16/23 12:45 Gram Stain - Preliminary Bronchoalviolar Lavage - Right Bronchial Washings Culture - Preliminary 12/14/23 13:21 Blood Culture - Preliminary Blood 12/14/23 19:40 Gram Stain - Preliminary Sputum Sputum Culture - Preliminary Presumptive Staph aureus
[2023-12-17 12:24] LABS: Glucose,Whole Blood 152 mg/dL (70-110)
[2023-12-17 17:29] LABS: Glucose,Whole Blood 133 mg/dL (70-110)
[2023-12-17 20:10] LABS: Glucose,Whole Blood 157 mg/dL (70-110)
[2023-12-18 07:05] LABS: Glucose,Whole Blood 114 mg/dL (70-110)
--- NOTE | 2023-12-18 08:13 | P.PN ---
Subjective Progress Note Date: 12/18/23 This is a 63-year-old male patient with a known history of lung cancer original diagnosed 2020. His oncologist is Dr. Hoyos. Currently receiving chemotherapy, however, recently placed on hold for 1 week. He was having chest congestion, cough with purulent sputum. His oncologist reportedly put him on IV 7-day course of antibiotics. No significant improvement after outpatient treatment, directed to the ER by Dr. Hoyos. Previous also, COPD, previous tobacco dependence, hypertension, hyperlipidemia, coronary artery disease with previous PCI/stent, ischemic cardiomyopathy, and atrial fibrillation anticoagulated on Eliquis. Previous treatment for a suspected cavitary pneumonia. Bronchoscopy with BAL May. No malignant cells noted in wash. BAL microbiology negative. Patient currently being evaluated on the medical floor. He is resting in bed on room air. Has a congested cough with yellow sputum production. No measured fevers. No hemoptysis. Chest pain is chronic due to his malignancy. Denies sick contacts. Last reported chemotherapy cycle was on December 04. No longer returning for radiation treatments. Chest x-ray done on admission showing increased central lung markings suspicious for disease progression versus pneumonia. CBC: WBC count 13.3, hemoglobin 8.9, hematocrit 29.7, platelets 176. CMP: Unremarkable. EKG: Sinus rhythm, rate 84 bpm, Q waves noted in leads I and aVL Viral screen negative for influenza, RSV, COVID. Currently on a combination of empiric antibiotics in the form of cefepime and vancomycin. Nontoxic appearance. The patient is seen today December 16, 2023 in follow-up on the regular medical floor. He is currently resting in bed. Awake and alert in no acute distress. Still with a loose congested cough. He is maintaining O2 saturations in the 90s on room air. Normal staying at KVO. Sputum cultures pending. Procalcitonin negative at 0.13. White count 21.1. Hemoglobin 7.6. Platelets 210. Sodium 139. Potassium 4.1. Bicarb 22. BUN 15. Creatinine 0.7. Glucose 141. He is continued on DuoNeb inhalations, Symbicort, Solu-Medrol. Antibiotics in the form of vancomycin and cefepime. Anticoagulated with Eliquis. NicoDerm patch i n place. The patient is seen today December 17, 2023 in follow-up on the regular medical floor. He is currently sitting up in bed. Awake and alert in no acute distress. He is maintaining good O2 saturations in the 90s on room air. He is feeling significantly better. Less cough and congestion. He did undergo bronchoscopy with bronchial alveolar lavage yesterday. Fluid culture and cytology pending. He is afebrile. Hemodynamically stable. CT scan of the abdomen pelvis revealed no evidence of metastatic disease. Similar left lower lobe reticular opacities with right middle lobe opacities remain. Sputum culture positive for presumptive Staph aureus. Procalcitonin was negative at 0.13. Blood culture reveals no growth. The patient is seen today December 18, 2023 in follow-up on the regular medical floor. He is awake and alert in no acute distress. Continues to maintain good O2 saturations in the 90s on room air. No fever or chills. Hemodynamically stable. His procalcitonin was negative at 0.13. His sputum culture did test positive for methicillin sensitive Staphylococcus aureus. Bronchial lavage cultures revealing no growth. He remains on DuoNeb and elations, Symbicort, Solu-Medrol. NicoDerm patch in place. Anticoagulated with Eliquis. Objective - Vital Signs Vital signs: Vital Signs Temp 98.1 F 12/18/23 07:37 Pulse 82 12/18/23 07:37 Resp 18 12/18/23 07:37 BP 138/86 12/18/23 07:37 Pulse Ox 98 12/18/23 07:37 FiO2 Intake & Output 12/17/23 12/18/23 12/18/23 19:59 06:59 18:59 Output Total Balance Output: Urine Other: Voiding Method # Voids # Bowel Movements - Exam GENERAL EXAM: Alert, 63-year-old male, sitting up in bed, on room air, in no apparent distress. HEAD: Normocephalic and atraumatic EYES: Normal reaction of pupils, equal size. NOSE: Clear with pink turbinates. THROAT: No erythema or exudates. NECK: No masses, no JVD. CHEST: No chest wall deformity. LUNGS: Equal air entry with diffuse bilateral rhonchi. No conversational dyspnea. CVS: S1 and S2 normal with no audible murmur, regular rhythm. No extra heart sounds ABDOMEN: No hepatosplenomegaly, active bowel sounds, no guarding or rigidity. SPINE: No scoliosis or deformity SKIN: No rashes CENTRAL NERVOUS SYSTEM: No focal deficits, tone is normal in all 4 extremities. EXTREMITIES: There is no peripheral edema, or cyanosis. Peripheral pulses are intact. Digital clubbing noted. - Labs CBC & Chem 7: 12/17/23 03:22 12/17/23 03:22 Labs: Abnormal Lab Results - Last 24 Hours (Table) 12/16/23 12/17/23 12/17/23 Range/Units 12:45 03:22 03:22 WBC 18.99 H (4.50-10.00) X 10*3/uL RBC 2.94 L (4.40-5.60) X 10*6/uL Hgb 7.8 L (13.0-17.0) g/dL Hct 27.0 L (39.6-50.0) % MCH 26.5 L (27.0-32.0) pg MCHC 28.9 L (32.0-37.0) g/dL RDW 21.2 H (11.5-14.5) % Immature Gran # 0.14 H (0.00-0.04) X 10*3/uL Neutrophils # 18.38 H (1.80-7.70) X 10*3/uL Lymphocytes # 0.32 L (0.90-5.00) X 10*3/uL Monocytes # 0.13 L (0.20-1.00) X 10*3/uL Eosinophils # 0 L (0.04-0.35) X 10*3/uL NRBC/100 WBC Diff 0.02 H (0.00-0.01) X 10*3/uL Polychromasia 2+ A Hypochromasia (manual) 2+ A Anisocytosis (manual) 2+ A BUN/Creatinine Ratio 23.29 H (12.00-20.00) Ratio Glucose 135 H (70-110) mg/dL POC Glucose (mg/dL) (70-110) mg/dL CMV DNA Qual PCR DETECTED A (Not detected) 12/17/23 12/17/23 12/17/23 Range/Units 12:23 17:27 20:00 WBC (4.50-10.00) X 10*3/uL RBC (4.40-5.60) X 10*6/uL Hgb (13.0-17.0) g/dL Hct (39.6-50.0) % MCH (27.0-32.0) pg MCHC (32.0-37.0) g/dL RDW (11.5-14.5) % Immature Gran # (0.00-0.04) X 10*3/uL Neutrophils # (1.80-7.70) X 10*3/uL Lymphocytes # (0.90-5.00) X 10*3/uL Monocytes # (0.20-1.00) X 10*3/uL Eosinophils # (0.04-0.35) X 10*3/uL NRBC/100 WBC Diff (0.00-0.01) X 10*3/uL Polychromasia Hypochromasia (manual) Anisocytosis (manual) BUN/Creatinine Ratio (12.00-20.00) Ratio Glucose (70-110) mg/dL POC Glucose (mg/dL) 152 H 133 H 157 H (70-110) mg/dL CMV DNA Qual PCR (Not detected) 12/18/23 Range/Units 07:04 WBC (4.50-10.00) X 10*3/uL RBC (4.40-5.60) X 10*6/uL Hgb (13.0-17.0) g/dL Hct (39.6-50.0) % MCH (27.0-32.0) pg MCHC (32.0-37.0) g/dL RDW (11.5-14.5) % Immature Gran # (0.00-0.04) X 10*3/uL Neutrophils # (1.80-7.70) X 10*3/uL Lymphocytes # (0.90-5.00) X 10*3/uL Monocytes # (0.20-1.00) X 10*3/uL Eosinophils # (0.04-0.35) X 10*3/uL NRBC/100 WBC Diff (0.00-0.01) X 10*3/uL Polychromasia Hypochromasia (manual) Anisocytosis (manual) BUN/Creatinine Ratio (12.00-20.00) Ratio Glucose (70-110) mg/dL POC Glucose (mg/dL) 114 H (70-110) mg/dL CMV DNA Qual PCR (Not detected) Microbiology - Last 24 Hours (Table) 12/16/23 12:45 Acid Fast Bacilli Smear - Preliminary Bronchoalviolar Lavage - Right 12/14/23 13:21 Blood Culture - Preliminary Blood 12/14/23 19:40 Gram Stain - Final Sputum Sputum Culture - Final Staphylococcus aureus 12/16/23 12:45 Gram Stain - Preliminary Bronchoalviolar Lavage - Right Bronchial Washings Culture - Preliminary Assessment and Plan Assessment: Acute COPD exacerbation, chest x-ray done on admission showing increased central lung markings suspicious for disease progression. Procalcitonin negative. Sputum culture positive for methicillin sensitive Staphylococcus aureus Metastatic squamous cell carcinoma, likely with disease progression. Followed by medical and radiation oncology Acute on chronic shortness of breath, secondary to a combination of above Acute leukocytosis Chronic anemia History of hypertension History of hyperlipidemia History of coronary artery disease with previous PCI/stent History of ischemic cardiomyopathy, most recent echocardiogram available from 08/27/2022 estimates an impaired left ventricular systolic ejection fraction of 35% Chronic ongoing tobacco dependence, patient restarted smoking History of ocular herpes History of paroxysmal atrial fibrillation, anticoagulated on Eliquis Plan: The patient was seen and evaluated Labs and medications reviewed Sputum culture positive for MSSA Procalcitonin negative Bactrim DS twice daily x 5 days Continue Solu-Medrol Complete a prednisone taper This patient was seen independently by the pulmonary nurse practitioner addressing pulmonary issues I have personally seen and examined the patient, performed the documentation and the assessment and plan as written. Number of minutes spent on the visit: 23 Dictation was produced using [employer] dictation software. Please excuse any grammatical, word or spelling errors.
[2023-12-18 08:57] LABS: HCT 26.3 % (39.6-50.0); HGB 7.8 g/dL (13.0-17.0); MCH 27.1 pg (27.0-32.0); MCHC 29.7 g/dL (32.0-37.0); MCV 91.3 FL (80.0-97.0); NRBC Per 100 WBC 0 X 10*3/uL (0.00-0.01); Platelet Count 242 X 10*3/uL (140-440); RBC 2.88 X 10*6/uL (4.40-5.60); RDW 21.3 % (11.5-14.5); WBC 19.35 X 10*3/uL (4.50-10.00)
[2023-12-18 09:10] LABS: BUN/Creat Ratio 27.43 Ratio (12.00-20.00); Blood Urea Nitrogen 19.2 mg/dL (9.0-27.0); Glucose 143 mg/dL (70-110)
[2023-12-18 09:11] LABS: Calcium 9.1 mg/dL (8.7-10.3); Carbon Dioxide 25.3 mmol/L (21.6-31.8); Chloride 102 mmol/L (96-109); Potassium 4.6 mmol/L (3.5-5.5); Sodium 137 mmol/L (135-145)
[2023-12-18] MEDS: predniSONE 20 MG TAB PO SCH (10:08)
[2023-12-18] MEDS: SULFAMETHOX-TMP 800-160MG 1 EACH TAB PO SCH (10:08)
[2023-12-18 12:24] LABS: Glucose,Whole Blood 135 mg/dL (70-110)
--- NOTE | 2023-12-18 12:55 | P.DS ---
Providers Date of admission: 12/14/23 14:30 Attending physician: Puneet Leon Consults: 12/14/23 14:29 Consult Physician Routine Consulting Provider: Anastacio Braga Consult Reason/Comments: COPD Do you want consulting provider notified?: Yes Consult Physician Routine Consulting Provider: Juan Carlos Hoyos Consult Reason/Comments: PNA/lung CA Do you want consulting provider notified?: Already Contacted 12/15/23 11:27 Consult Physician Routine Consulting Provider: Davi Pickett Consult Reason/Comments: lung cancer, ERICA, known to service Do you want consulting provider notified?: Yes Primary care physician: Eduardo Parsons MD Hospital Course: Discharge Diagnosis: Obstructive pneumonia with sputum culture growing Staph aureus Sepsis on admission COPD exacerbation Stage IV lung cancer progressing Coronary disease Atrial fibrillation Hypertension Chronic systolic heart failure Hospital Course: Patient is a 63-year-old male with a past medical history of stage IV lung cancer, history of lung abscess, COPD with intermittent home O2, coronary artery disease with stents, history of SVT, hypertension, hyperlipidemia, chronic systolic heart failure who presents to the ED with dyspnea and productive cough that has been ongoing for 1 month. Patient states that his last chemotherapy was 2 weeks ago. He states that last week his oncologist started him on antibiotics for possible pneumonia. Patient states that with the antibiotics his symptoms did improve however then started to worsen again so he came into the emergency room. Patient continues to smoke cigarettes and his girlfriend also smokes. In the ED WBC is 13.3, hemoglobin 8.9. Chest x-ray showed increased central lung markings can be related to patient's reported left lung cancer and posterior pneumonia is considered less likely. In the ED patient was given Solu-Medrol 125 mg, DuoNeb, Rocephin and azithromycin. Patient was then referred for admission. Patient was started on vancomycin pharmacy to dose and cefepime. Patient was also started on COPD protocol with IV Solu-Medrol and breathing treatments. Patient had a CT chest that shows progressing of his lung cancer. Pulmonology did a bronchoscopy on 12/16/2023. Patient's sputum culture grew MSSA. Pulmonology recommended 5 days of Bactrim and prednisone taper. At the time of discharge patient reported that he is feeling much better. He was satting well on room air. I did tell the patient that he has a poor prognosis. Patient states that he has been preparing for his and has already transferred his property over to his son's name. At this time patient not interested in hospice. Patient seen and examined at bedside.[] Vital signs reviewed and stable. 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 Patient discharged on [12/18/2023] Patient Condition at Discharge: Poor Plan - Discharge Summary Discharge Rx Participant: Yes New Discharge Prescriptions: New Sulfamethox-Tmp 800-160Mg [Bactrim DS 800-160 mg] 1 each PO BID 5 Days #10 tab predniSONE 0 mg PO DIRECTED 12 Days #30 tab Continue Spiriva Respimat 1.25mcg/Actuation Mist 2 puff INHALATION RT-HS #0 Ondansetron [Zofran] 4 mg PO Q4H PRN PRN Reason: Nausea Omeprazole [PriLOSEC] 40 mg PO DAILY PRN PRN Reason: GERD Pegfilgrastim-Jmdb [Fulphila] 6 mg SQ Q21D Cholecalciferol [Vitamin D3 (25 Mcg = 1000 Iu)] 50 mcg PO DAILY Atorvastatin [Lipitor] 80 mg PO HS Hydrocodone/Acetaminophen [Hydrocodone/Acetaminophen 10-300 mg] 1 tab PO QID PRN PRN Reason: PAIN Amiodarone [Cordarone] 200 mg PO DAILY #30 tab Apixaban [Eliquis] 5 mg PO BID 30 Days #60 tab Prochlorperazine [Compazine] 10 mg PO Q6H PRN PRN Reason: Nausea Discontinued dexAMETHasone [Decadron] 8 mg PO DIRECTED Chemo (Unknown) 1 dose IV Q21D Discharge Medication List Atorvastatin [Lipitor] 80 mg PO HS 03/04/21 [History] Spiriva Respimat 1.25mcg/Actuation Mist 2 puff INHALATION RT-HS #0 09/01/22 [Rx] Hydrocodone/Acetaminophen [Hydrocodone/Acetaminophen 10-300 mg] 1 tab PO QID PRN 06/06/23 [History] Amiodarone [Cordarone] 200 mg PO DAILY #30 tab 09/11/23 [Rx] Apixaban [Eliquis] 5 mg PO BID 30 Days #60 tab 09/11/23 [Rx] Cholecalciferol [Vitamin D3 (25 Mcg = 1000 Iu)] 50 mcg PO DAILY 12/14/23 [History] Omeprazole [PriLOSEC] 40 mg PO DAILY PRN 12/14/23 [History] Ondansetron [Zofran] 4 mg PO Q4H PRN 12/14/23 [History] Pegfilgrastim-Jmdb [Fulphila] 6 mg SQ Q21D 12/14/23 [History] Prochlorperazine [Compazine] 10 mg PO Q6H PRN 12/14/23 [History] Sulfamethox-Tmp 800-160Mg [Bactrim DS 800-160 mg] 1 each PO BID 5 Days #10 tab 12/18/23 [Rx] predniSONE 0 mg PO DIRECTED 12 Days #30 tab 12/18/23 [Rx] Follow up Appointment(s)/Referral(s): Juan Carlos Hoyos [STAFF PHYSICIAN] - 1 Week Eduardo Parsons MD [Primary Care Provider] - 1-2 days Discharge Disposition: HOME SELF-CARE
[2023-12-18 13:00] VITALS: BP 139/75; PULSE 92; RESP 19; TEMP 97.8
--- NOTE | 2023-12-18 14:16 | P.PN ---
Subjective Progress Note Date: 12/18/23 Principal diagnosis: Metastatic squamous cell carcinoma of the lung -Afebrile, no acute events overnight -Noted to have significant improvement in breathing since bronchoscopy on 12/16/2023 revealing thickening of the oblique teresa the right upper lobe from the bronchus intermedius concerning for malignancy -He denies any new signs or symptoms Objective - Vital Signs Vital signs: Vital Signs Temp 97.8 F 12/18/23 12:59 Pulse 92 12/18/23 12:59 Resp 19 12/18/23 12:59 BP 139/75 12/18/23 12:59 Pulse Ox 96 12/18/23 12:59 FiO2 Intake & Output 12/17/23 12/18/23 12/18/23 19:59 06:59 18:59 Intake Total 240 Output Total Balance 240 Intake: Oral 240 Output: Urine Other: Voiding Method # Voids # Bowel Movements - Constitutional General appearance: Present: cooperative, no acute distress - EENT Eyes: Present: EOMI - Respiratory Details: Mild wheezing in the right upper lung field, but other lung viera sound clear and significantly improved compared to admission Respiratory: right: wheezing (Right upper lung field) - Cardiovascular Rhythm: regularly irregular - Gastrointestinal General gastrointestinal: Present: soft. Absent: distended - Integumentary Integumentary: Absent: rash - Neurologic Neurologic: Present: CNII-XII intact. Absent: focal deficits - Psychiatric Psychiatric: Present: A&O x's 3 - Labs CBC & Chem 7: 12/18/23 05:15 12/18/23 05:15 Labs: Abnormal Lab Results - Last 24 Hours (Table) 12/17/23 12/17/23 12/18/23 Range/Units 17:27 20:00 05:15 WBC 19.35 H (4.50-10.00) X 10*3/uL RBC 2.88 L (4.40-5.60) X 10*6/uL Hgb 7.8 L (13.0-17.0) g/dL Hct 26.3 L (39.6-50.0) % MCHC 29.7 L (32.0-37.0) g/dL RDW 21.3 H (11.5-14.5) % BUN/Creatinine Ratio (12.00-20.00) Ratio Glucose (70-110) mg/dL POC Glucose (mg/dL) 133 H 157 H (70-110) mg/dL 12/18/23 12/18/23 12/18/23 Range/Units 05:15 07:04 12:13 WBC (4.50-10.00) X 10*3/uL RBC (4.40-5.60) X 10*6/uL Hgb (13.0-17.0) g/dL Hct (39.6-50.0) % MCHC (32.0-37.0) g/dL RDW (11.5-14.5) % BUN/Creatinine Ratio 27.43 H (12.00-20.00) Ratio Glucose 143 H (70-110) mg/dL POC Glucose (mg/dL) 114 H 135 H (70-110) mg/dL Microbiology - Last 24 Hours (Table) 12/16/23 12:45 Gram Stain - Final Bronchoalviolar Lavage - Right Bronchial Washings Culture - Final 12/16/23 12:45 Acid Fast Bacilli Smear - Preliminary Bronchoalviolar Lavage - Right 12/14/23 13:21 Blood Culture - Preliminary Blood 12/14/23 19:40 Gram Stain - Final Sputum Sputum Culture - Final Staphylococcus aureus Assessment and Plan (1) Community acquired pneumonia Current Visit: Yes Status: Acute Priority: High Code(s): J18.9 - PNEUMONIA, UNSPECIFIED ORGANISM SNOMED Code(s): 409805690 (2) Squamous cell lung cancer Current Visit: Yes Status: Chronic Priority: High Code(s): C34.90 - MALIGNANT NEOPLASM OF UNSP PART OF UNSP BRONCHUS OR LUNG SNOMED Code(s): 713688705 Plan: Dyspnea, pneumonia: Patient presented with exertional SOB and productive cough. Recently treated with oral abx for suspected pneumonia -On admit chest x-ray showed increased central lung markings which can be related to patient's reported left lung cancer, posterior pneumonia is considered less likely. Patient subsequently had CT chest without contrast with contrast which showed interval disease progression. Soft tissue encasing the teresa and right mainstem bronchus which is showing increasing bulk measuring up to 5.4 cm. There is mass effect onto the right main pulmonary artery narrowing at 8 mm, previously at 1.1 cm. Continuous right suprahilar mass encasing the right upper lobe bronchus measuring 3.9 cm versus 3.4 cm previously. Also there is progressive soft tissue which has developed extending superiorly and posteriorly in the right upper lobe. New left paratracheal adenopathy measuring 1.8 cm. Opacification and bronchial narrowing superior segment of the left lower lobe which is similar to previous study. Extensive left lower lobe consolidation has now resolved. New multifocal groundglass and airspace infiltrates bilaterally. Background COPD with moderate emphysema -Since admission, he has received IV antibiotics, bronchodilators, and steroids with significant improvement -Bronchoscopy on 12/16/2023 noted thickening of the oblique teresa the right upper lobe from the bronchus intermedius concerning for malignancy -He is currently off of oxygen and breathing comfortably and has been cleared for discharge with course of oral antibiotics and prednisone taper as prescribed by pulmonology -From an oncology perspective, I agree with discharge -He did discuss localized radiation therapy with radiation oncology and is considering this, which I believe is reasonable as he has localized progression that can increase his risk of pneumonia and COPD exacerbations -He will be meeting with radiation oncology outpatient to discuss this further -His next treatment of Taxotere is scheduled on 12/26/2023. We will arrange for follow-up visit with MANAGER [employer]EARCH for clinical assessment prior to proceeding with treatment NSCLC: -Oncology history as dictated in the HPI -Currently on treatment with single agent taxotere, completing last tx on 12/05/23 with G-CSF on 12/05 -Treatment will be on hold until patient acutely recovers -Clinic f/u upon discharge Caroline Dolan MD
[2023-12-19 10:15] LABS: Nucleated Cells, Body Fluid 550 /UL
== END 2023-12-18 16:52 | disposition home or self-care (01) | DRG 720 ==
LOC: EC 13:08 → 5NMEDONC 14:30
PROVIDERS: ADMIT Student in an Organized Health Care Education/Training Program; ATTEND Student in an Organized Health Care Education/Training Program
PROC: 0B948ZZ Drainage of Right Upper Lobe Bronchus, Via Natural or Artificial Opening Endoscopic (ICD-10-PCS; principal; 2023-12-16 14:30)
PROC: 0B9D8ZX Drainage of Right Middle Lung Lobe, Via Natural or Artificial Opening Endoscopic, Diagnostic (ICD-10-PCS; principal; 2023-12-16 14:30)
DX: A41.01 Sepsis due to Methicillin susceptible Staphylococcus aureus (principal); D64.9 Anemia, unspecified; E78.5 Hyperlipidemia, unspecified; E86.1 Hypovolemia; F17.210 Nicotine dependence, cigarettes, uncomplicated; I11.0 Hypertensive heart disease with heart failure; I25.10 Atherosclerotic heart disease of native coronary artery without angina pectoris; I25.2 Old myocardial infarction; I25.5 Ischemic cardiomyopathy; I50.22 Chronic systolic (congestive) heart failure; J43.9 Emphysema, unspecified; J18.9 Pneumonia, unspecified organism; J44.0 Chronic obstructive pulmonary disease with (acute) lower respiratory infection; C34.32 Malignant neoplasm of lower lobe, left bronchus or lung; J44.1 Chronic obstructive pulmonary disease with (acute) exacerbation; I48.0 Paroxysmal atrial fibrillation; E43 Unspecified severe protein-calorie malnutrition; Z68.1 Body mass index [BMI] 19.9 or less, adult; C78.01 Secondary malignant neoplasm of right lung; R64 Cachexia; T38.0X5A Adverse effect of glucocorticoids and synthetic analogues, initial encounter; D72.829 Elevated white blood cell count, unspecified; Z71.3 Dietary counseling and surveillance; Z86.14 Personal history of Methicillin resistant Staphylococcus aureus infection; Z99.81 Dependence on supplemental oxygen; R91.8 Other nonspecific abnormal finding of lung field; Z90.2 Acquired absence of lung [part of]; Z92.3 Personal history of irradiation; Z92.21 Personal history of antineoplastic chemotherapy; Z79.52 Long term (current) use of systemic steroids; Z79.899 Other long term (current) drug therapy; Z79.01 Long term (current) use of anticoagulants; Z28.310 Unvaccinated for COVID-19; Z28.21 Immunization not carried out because of patient refusal; Z79.82 Long term (current) use of aspirin; Z53.20 Procedure and treatment not carried out because of patient's decision for unspecified reasons; Z87.01 Personal history of pneumonia (recurrent); Z95.5 Presence of coronary angioplasty implant and graft; Z95.1 Presence of aortocoronary bypass graft
CPT/HCPCS: 31624; 31645; 36415; 71046; 71260; 74177; 80048; 80053; 80202; 83036; 83605; 84145; 85025; 85027; 85610; 85730; 87040; 87070; 87077; 87102; 87116; 87186; 87205; 87206; 87496; 87498; 87502; 87529; 87634; 87635; 87636; 87798; 88108; 88305; 89050; 93005; 94640; 94667; 94760; 96365; 96366; 96367; 96375; 99285

== ENCOUNTER 2024-01-20 15:04 | Inpatient (IN) | payer OTHER ==
--- NOTE | 2024-01-20 15:50 | ED ---
General Adult HPI - General Chief complaint: Shortness of Breath Stated complaint: ERICA Time Seen by Provider: 01/20/24 15:41 Source: patient, RN notes reviewed, old records reviewed Mode of arrival: wheelchair Limitations: no limitations - History of Present Illness Initial comments: 63-year-old male presents for evaluation of worsening cough and dyspnea history of COPD, recurrent pneumonia and lung CA. Patient denies fever. He states he just completed a course of antibiotics and steroids prescribed by his pulmonary doctor. He states he continues to have productive cough and moderate dyspnea. He states that he has not had any lower extremity pain or swelling. No central chest pain. - Related Data Home Medications Medication Instructions Recorded Confirmed Atorvastatin [Lipitor] 80 mg PO HS 03/04/21 12/14/23 Hydrocodone/Acetaminophen 1 tab PO QID PRN 06/06/23 12/14/23 [Hydrocodone/Acetaminophen 10-300 mg] Cholecalciferol [Vitamin D3 (25 50 mcg PO DAILY 12/14/23 12/14/23 Mcg = 1000 Iu)] Omeprazole [PriLOSEC] 40 mg PO DAILY PRN 12/14/23 12/14/23 Ondansetron [Zofran] 4 mg PO Q4H PRN 12/14/23 12/14/23 Pegfilgrastim-Jmdb [Fulphila] 6 mg SQ Q21D 12/14/23 12/14/23 Prochlorperazine [Compazine] 10 mg PO Q6H PRN 12/14/23 12/14/23 Previous Rx's Medication Instructions Recorded Spiriva Respimat 1.25mcg/Actuation 2 puff INHALATION RT-HS #0 09/01/22 Mist Amiodarone [Cordarone] 200 mg PO DAILY #30 tab 09/11/23 Apixaban [Eliquis] 5 mg PO BID 30 Days #60 tab 09/11/23 Sulfamethox-Tmp 800-160Mg [Bactrim 1 each PO BID 5 Days #10 tab 12/18/23 DS 800-160 mg] predniSONE 0 mg PO DIRECTED 12 Days #30 tab 12/18/23 Allergies Allergy/AdvReac Type Severity Reaction Status Date / Time Penicillins Allergy Dyspnea & Verified 01/20/24 15:07 Hives all over Review of Systems ROS Statement: Those systems with pertinent positive or pertinent negative responses have been documented in the HPI. ROS Other: All systems not noted in ROS Statement are negative. Past Medical History Past Medical History: Atrial Fibrillation, Coronary Artery Disease (CAD), Cancer, Chest Pain / Angina, COPD, Hyperlipidemia, Hypertension, Myocardial Infarction (PR) Additional Past Medical History / Comment(s): SVT with chest pain/palpitations- chemically converted(2023), lung cancer with chemo and radiation Last Myocardial Infarction Date:: 2017 History of Any Multi-Drug Resistant Organisms: MRSA Date of last positivie culture/infection: 12/23/2013 MDRO Source:: Face Past Surgical History: Heart Catheterization With Stent Additional Past Surgical History / Comment(s): I&D of Right inframandibular abscess. 3 cardiac stents, bronchoscopy for abscess Past Anesthesia/Blood Transfusion Reactions: No Reported Reaction Additional Past Anesthesia/Blood Transfusion Reaction / Comment(s): platelet transfusions with no reaction r/t chemo Date of Last Stent Placement:: 2017 Past Psychological History: No Psychological Hx Reported Smoking Status: Current some day smoker Past Alcohol Use History: None Reported Past Drug Use History: None Reported - Past Family History Father Family Medical History: No Reported History Additional Family Medical History / Comment(s): Father of "natural causes" at the age of 79yrs. Mother Family Medical History: COPD, Coronary Artery Disease (CAD) Additional Family Medical History / Comment(s): Mother is 76yrs old. She has had several MIs, 6 cardiac stents and a 4 vessel CABG. General Exam Limitations: no limitations General appearance: alert, in no apparent distress Head exam: Present: atraumatic, normocephalic Eye exam: Present: normal appearance, PERRL ENT exam: Present: normal exam Neck exam: Present: normal inspection. Absent: tenderness, meningismus Respiratory exam: Present: wheezes, rhonchi. Absent: respiratory distress Cardiovascular Exam: Present: regular rate, normal rhythm GI/Abdominal exam: Present: soft. Absent: distended, tenderness, guarding Extremities exam: Present: normal inspection, normal capillary refill. Absent: pedal edema, calf tenderness Neurological exam: Present: alert, oriented X3, CN II-XII intact. Absent: motor sensory deficit Psychiatric exam: Present: normal affect, normal mood Skin exam: Present: warm, dry, intact Course Vital Signs 01/20/24 01/20/24 01/20/24 15:07 16:31 16:47 Temperature 97.9 F Pulse Rate 96 90 91 Respiratory 26 H 24 22 Rate Blood Pressure 106/67 O2 Sat by Pulse 100 Oximetry Medical Decision Making - Medical Decision Making Was pt. sent in by a medical professional or institution (GINGER Van, CENTRIFUGAL MACHINE TENDER, urgent care, hospital, or [facility]...) When possible be specific @ -No Did you speak to anyone other than the patient for history (EMS, parent, family, police, friend...)? What history was obtained from this source @ -No Did you review nursing and triage notes (agree or disagree)? Why? @ -I reviewed and agree with nursing and triage notes Were old charts reviewed (outside hosp., previous admission, EMS record, old EKG, old radiological studies, urgent care reports/EKG's, [facility] records)? Report findings @ -No old charts were reviewed Differential Dyspnea: Coronary syndrome, arrhythmia, tamponade, asthma, COPD, pulmonary embolism, pneumonia, pneumothorax, pulmonary effusion, anaphylaxis, diabetic ketoacidosis, flailed chest, pulmonary contusion, diaphragmatic rupture, anemia, neuromuscular, this is not meant to be an all-inclusive list. EKG interpreted by me (3pts min.). @ -[Sinus rhythm rate of 97, HI interval 142, QRS duration 104, QTc [address] segment elevation. X-rays interpreted by me (1pt min.). @ -No pneumothorax or consolidated pneumonia on chest x-ray CT interpreted by me (1pt min.). @ -None done U/S interpreted by me (1pt. min.). @ -None done What testing was considered but not performed or refused? (CT, X-rays, U/S, labs)? Why? @ -None What meds were considered but not given or refused? Why? @ -None Did you discuss the management of the patient with other professionals (pr ofessionals i.e. GINGER Van, CENTRIFUGAL MACHINE TENDER, lab, RT, psych nurse, social human services assistants, manager research development, teacher, air defense control officer, catalytic case operator)? Give summary @ -[Case discussed with [facility]. Will admit with consults to radiation oncology, pulmonology and oncology Was smoking cessation discussed for >3mins.? @ -No Was critical care preformed (if so, how long)? @ -No Were there social determinants of health that impacted care today? How? (Homelessness, low income, unemployed, alcoholism, drug addiction, transportation, low edu. Level, literacy, decrease access to med. care, skilled nursing, rehab)? @ -No Was there de-escalation of care discussed even if they declined (Discuss DNR or withdrawal of care, Hospice)? DNR status @ -No What co-morbidities impacted this encounter? (DM, HTN, Smoking, COPD, CAD, Cancer, CVA, ARF, Chemo, Hep., AIDS, mental health diagnosis, sleep apnea, morbid obesity)? @ -[COPD, pneumonia, lung cancer Was patient admitted / discharged? Hospital course, mention meds given and route, prescriptions, significant lab abnormalities, going to OR and other pertinent info. @ -63-year-old male history of lung CA and COPD presenting with persistent cough and dyspnea after recent outpatient treatment with antibiotics and steroids. Patient laboratory workup reveals chronic stable anemia, normal white blood cell count, mild lactic acidosis at 3.5. Patient has completed an outpatient treatment course with no significant improvement. He will be admitted for COPD failed outpatient treatment. Undiagnosed new problem with uncertain prognosis? @ -No Drug Therapy requiring intensive monitoring for toxicity (Heparin, Nitro, Insulin, Cardizem)? @ -No Were any procedures done? @ -No Diagnosis/symptom? @ -[COPD exacerbation, lung cancer Acute, or Chronic, or Acute on Chronic? @ -Acute Uncomplicated (without systemic symptoms) or Complicated (systemic symptoms)? @Complicated Side effects of treatment? @ -[No Exacerbation, Progression, or Severe Exacerbation? @ -No Poses a threat to life or bodily function? How? (Chest pain, USA, PR, pneumonia, PE, COPD, DKA, ARF, appy, cholecystitis, CVA, Diverticulitis, Homicidal, Suicidal, threat to staff... and all critical care pts) @Moderate risk, COPD, respiratory failure, pneumonia, lung cancer - Lab Data Result diagrams: 01/20/24 16:08 01/20/24 16:08 Lab Results 01/20/24 01/20/24 01/20/24 Range/Units 16:08 16:08 16:08 WBC 9.7 (3.8-10.6) k/uL RBC 3.53 L (4.30-5.90) m/uL Hgb 9.9 L (13.0-17.5) gm/dL Hct 33.2 L (39.0-53.0) % MCV 94.0 (80.0-100.0) fL MCH 28.1 (25.0-35.0) pg MCHC 30.0 L (31.0-37.0) g/dL RDW 22.8 H (11.5-15.5) % Plt Count 182 (150-450) k/uL MPV 9.4 Neutrophils % 94 % Lymphocytes % 3 % Monocytes % 3 % Eosinophils % 0 % Basophils % 0 % Neutrophils # 9.1 H (1.3-7.7) k/uL Lymphocytes # 0.2 L (1.0-4.8) k/uL Monocytes # 0.3 (0-1.0) k/uL Eosinophils # 0.0 (0-0.7) k/uL Basophils # 0.0 (0-0.2) k/uL Hypochromasia Marked Anisocytosis Moderate Macrocytosis Slight PT 10.4 (10.0-12.5) sec INR 0.9 (<1.2) APTT 32.9 H (22.0-30.0) sec Sodium 135 L (137-145) mmol/L Potassium 4.0 (3.5-5.1) mmol/L Chloride 103 (98-107) mmol/L Carbon Dioxide 21 L (22-30) mmol/L Anion Gap 11 mmol/L BUN 24 H (9-20) mg/dL Creatinine 0.72 (0.66-1.25) mg/dL Est GFR (CKD-EPI)AfAm >90 (>60 ml/min/1.73 sqM) Est GFR (CKD-EPI)NonAf >90 (>60 ml/min/1.73 sqM) Glucose 149 H (74-99) mg/dL Plasma Lactic Acid Eugene (0.7-2.0) mmol/L Calcium 9.3 (8.4-10.2) mg/dL Magnesium 2.0 (1.6-2.3) mg/dL Total Bilirubin 0.4 (0.2-1.3) mg/dL AST 16 L (17-59) U/L ALT 10 (4-49) U/L Alkaline Phosphatase 80 (38-126) U/L Total Protein 6.9 (6.3-8.2) g/dL Albumin 3.6 (3.5-5.0) g/dL 01/20/24 Range/Units 16:08 WBC (3.8-10.6) k/uL RBC (4.30-5.90) m/uL Hgb (13.0-17.5) gm/dL Hct (39.0-53.0) % MCV (80.0-100.0) fL MCH (25.0-35.0) pg MCHC (31.0-37.0) g/dL RDW (11.5-15.5) % Plt Count (150-450) k/uL MPV Neutrophils % % Lymphocytes % % Monocytes % % Eosinophils % % Basophils % % Neutrophils # (1.3-7.7) k/uL Lymphocytes # (1.0-4.8) k/uL Monocytes # (0-1.0) k/uL Eosinophils # (0-0.7) k/uL Basophils # (0-0.2) k/uL Hypochromasia Anisocytosis Macrocytosis PT (10.0-12.5) sec INR (<1.2) APTT (22.0-30.0) sec Sodium (137-145) mmol/L Potassium (3.5-5.1) mmol/L Chloride (98-107) mmol/L Carbon Dioxide (22-30) mmol/L Anion Gap mmol/L BUN (9-20) mg/dL Creatinine (0.66-1.25) mg/dL Est GFR (CKD-EPI)AfAm (>60 ml/min/1.73 sqM) Est GFR (CKD-EPI)NonAf (>60 ml/min/1.73 sqM) Glucose (74-99) mg/dL Plasma Lactic Acid Eugene 2.5 H* (0.7-2.0) mmol/L Calcium (8.4-10.2) mg/dL Magnesium (1.6-2.3) mg/dL Total Bilirubin (0.2-1.3) mg/dL AST (17-59) U/L ALT (4-49) U/L Alkaline Phosphatase (38-126) U/L Total Protein (6.3-8.2) g/dL Albumin (3.5-5.0) g/dL Disposition Clinical Impression: Squamous cell lung cancer, Acute exacerbation of chronic obstructive pulmonary disease Disposition: ADMITTED IP TO THIS HOSP Condition: Stable Is patient prescribed a controlled substance at d/c from ED?: No Referrals: dEuardo Parsons MD [Primary Care Provider] - 1-2 days Time of Disposition: 17:26
[2024-01-20 16:18] LABS: Anisocytosis Moderate; Basophils % (A) 0 %; Eosinophils % (A) 0 %; HCT 33.2 % (39.0-53.0); HGB 9.9 gm/dL (13.0-17.5); Hypochromasia Marked; Lymphocytes # (A) 0.2 k/uL (1.0-4.8); Lymphocytes % (A) 3 %; MCH 28.1 pg (25.0-35.0); Macrocytosis Slight; Mean Platelet Volume 9.4; Monocytes # (A) 0.3 k/uL (0-1.0); Monocytes % (A) 3 %; Neutrophils # (A) 9.1 k/uL (1.3-7.7); Neutrophils % (A) 94 %; Platelet Count 182 k/uL (150-450); RBC 3.53 m/uL (4.30-5.90); RDW 22.8 % (11.5-15.5); WBC 9.7 k/uL (3.8-10.6)
[2024-01-20 16:26] LABS: INR 0.9 (<1.2)
[2024-01-20 16:27] LABS: Partial Thromboplastin Time 32.9 sec (22.0-30.0); Prothrombin Time 10.4 sec (10.0-12.5)
[2024-01-20] MEDS: methylPREDNISolone SOD SUCCI 125 MG/2 ML VIAL IV STA (16:29)
[2024-01-20] MEDS: ALBUTEROL NEBULIZED 2.5 MG/3 ML INHALATION STA (16:30)
[2024-01-20] MEDS: IPRATROPIUM 0.5 MG/2.5 ML NEBU INHALATION STA (16:30)
[2024-01-20 16:44] LABS: ALT 10 U/L (4-49); AST 16 U/L (17-59); African American GFR (CKD) >90 (>60 ml/min/1.73 sqM); Albumin 3.6 g/dL (3.5-5.0); Alkaline Phosphatase 80 U/L (38-126); Anion Gap 11 mmol/L; Blood Urea Nitrogen 24 mg/dL (9-20); Calcium 9.3 mg/dL (8.4-10.2); Carbon Dioxide 21 mmol/L (22-30); Chloride 103 mmol/L (98-107); Glucose 149 mg/dL (74-99); Non-African American GFR(CKD) >90 (>60 ml/min/1.73 sqM); Sodium 135 mmol/L (137-145); Total Bilirubin 0.4 mg/dL (0.2-1.3); Total Protein 6.9 g/dL (6.3-8.2)
--- NOTE | 2024-01-20 17:18 | XR ---
EXAMINATION TYPE: XR chest 2V DATE OF EXAM: 01/20/2024 5:03 PM COMPARISON: Chest radiographs from 12/15/2023 CLINICAL INDICATION: Male, 63 years old with history of difficulty breathing; [facility] TECHNIQUE: XR chest 2V Frontal and lateral views of the chest. FINDINGS: Lungs/Pleura: Similar appearing right apical and left perihilar masses. There is no evidence of pleur al effusion, focal consolidation, or pneumothorax. Pulmonary vascularity: Unremarkable. Heart/mediastinum: Cardiomediastinal silhouette is unremarkable. Musculoskeletal: No acute osseous pathology. IMPRESSION: Overall similar exam to prior. Redemonstration of the mass best appreciated on lateral view and on th e left perihilum. [facility], , 01/20/2024 5:16 PM
[2024-01-20] MEDS ORDERED: NALOXONE 0.4 MG/ML 1 ML VIAL IVP PRN (17:22)
[2024-01-20] MEDS ORDERED: HYDROcodone/APAP 5-325MG 1 EACH TAB PO PRN (17:22)
[2024-01-20] MEDS: SODIUM CHLORIDE 0.9% 1,000 ML IV SCH (17:58)
[2024-01-20] MEDS ORDERED: PANTOPRAZOLE 40 MG TABLET PO PRN (18:01)
--- NOTE | 2024-01-20 18:11 | P.HPIM ---
History of Present Illness H&P Date: 01/20/24 63 year old M with PMH of lung CA with history of lung abscess, COPD with intermittent home O2, CAD with stents, h/o SVT, HLD presents to the ED for persistent cough. Symptoms ongoing for the past month. Occasionally coughs green sputum, other times clear. Sputum is thick, now unable to cough up anything. PCP prescribed Prednisone and Levaquin which did not improve symptoms. No fever or chills. No chest pain. Denies headache, lower extremity edema, nausea or vomiting, palpitations, changes in urination or bowel habits. Underwent bronchoscopy with Dr. Braga on 12/15, culture grew respiratory jennifer. In the ED he underwent extensive evaluation. BP 106/67, HR 96, T 97.9F, RR 26, 100% on RA. CBC, Coag panel, CMP significant for RBC 3.53, Hg 9.9, Hct 33.2, APTT 32.9, Na 135, bicarb 21, BUN 24, glu 149, AST 16. Lactic acid 2.5. Mag 2.0. EKG sinus rhythm with no ST T wave changes. CXR shows redemonstration of the mass in the right apical and left perihilum. Patient is admitted for further wor kup and management. General: Non toxic, mild distress, cachectic Derm: Warm, dry Head: Atraumatic, normocephalic, symmetric Eyes: EOMI, no lid lag, anicteric sclera Mouth: No lip lesion, mucus membranes moist Cardiovascular: S1S2 tachy, no murmur Lungs: Coarse BS bilateral, no rhonchi, no rales, no accessory muscle use Abdominal: Soft, no guarding, no appreciable organomegaly Ext: No gross muscle atrophy, no edema, no contractures Neuro: no focal neuro deficits Psych: Alert, oriented, appropriate affect Based on my assessment of this patient, this patient meets a high complexity level of care. Acute COPD exacerbation: Solumedrol 60 mg IV Q6H. DuoNeb QID scheduled and as needed for shortness of breath. Mucinex 1200 mg PO BID. May need repeat bronchoscopy. Pulmonary consult. SIRS: Concerning given immunocompromised nature. Start Zosyn 3.75 g IV TID. Obtain Sputum, Legionella, Blood cultures. NS at 75 cc/hr. Telemetry monitoring. h/o SVT: Amiodarone 200 mg PO QD. Eliquis 5 mg PO BID. HLD: Lipitor 80 mg PO QHS. CODE STATUS: FULL CODE DVT Prophylaxis: Eliquis GI Prophylaxis: Prilosec PO Designated medical POA if patient is not able to make medical decisions for themselves: I have reviewed the following income tax consultant notes: ED note. I have reviewed the results of the following tests: As above. I have ordered the following tests: As above. I have discussed the care of this patient with the following independent historian: I have independently interpreted the following test below: CXR I have discussed the management of this patient with the following physician: Past Medical History Past Medical History: Atrial Fibrillation, Coronary Artery Disease (CAD), Cancer, Chest Pain / Angina, COPD, Hyperlipidemia, Hypertension, Myocardial Infarction ([place]) Additional Past Medical History / Comment(s): SVT with chest pain/palpitations- chemically converted(2023), lung cancer with chemo and radiation Last Myocardial Infarction Date:: 2017 History of Any Multi-Drug Resistant Organisms: MRSA Date of last positivie culture/infection: 12/23/2013 MDRO Source:: Face Past Surgical History: Heart Catheterization With Stent Additional Past Surgical History / Comment(s): I&D of Right inframandibular abscess. 3 cardiac stents, bronchoscopy for abscess Past Anesthesia/Blood Transfusion Reactions: No Reported Reaction Additional Past Anesthesia/Blood Transfusion Reaction / Comment(s): platelet transfusions with no reaction r/t chemo Date of Last Stent Placement:: 2017 Past Psychological History: No Psychological Hx Reported Smoking Status: Current some day smoker Past Alcohol Use History: None Reported Past Drug Use History: None Reported - Past Family History Father Family Medical History: No Reported History Additional Family Medical History / Comment(s): Father of "natural causes" at the age of 79yrs. Mother Family Medical History: COPD, Coronary Artery Disease (CAD) Additional Family Medical History / Comment(s): Mother is 76yrs old. She has had several MIs, 6 cardiac stents and a 4 vessel CABG. Medications and Allergies Home Medications Medication Instructions Recorded Confirmed Type Atorvastatin [Lipitor] 80 mg PO HS 03/04/21 12/14/23 History Spiriva Respimat 1.25mcg/Actuation 2 puff INHALATION RT-HS #0 09/01/22 12/14/23 Rx Mist Hydrocodone/Acetaminophen 1 tab PO QID PRN 06/06/23 12/14/23 History [Hydrocodone/Acetaminophen 10-300 mg] Amiodarone [Cordarone] 200 mg PO DAILY #30 tab 09/11/23 12/14/23 Rx Apixaban [Eliquis] 5 mg PO BID 30 Days #60 tab 09/11/23 12/14/23 Rx Cholecalciferol [Vitamin D3 (25 50 mcg PO DAILY 12/14/23 12/14/23 History Mcg = 1000 Iu)] Omeprazole [PriLOSEC] 40 mg PO DAILY PRN 12/14/23 12/14/23 History Ondansetron [Zofran] 4 mg PO Q4H PRN 12/14/23 12/14/23 History Pegfilgrastim-Jmdb [Fulphila] 6 mg SQ Q21D 12/14/23 12/14/23 History Prochlorperazine [Compazine] 10 mg PO Q6H PRN 12/14/23 12/14/23 History Sulfamethox-Tmp 800-160Mg [Bactrim 1 each PO BID 5 Days #10 tab 12/18/23 Rx DS 800-160 mg] predniSONE 0 mg PO DIRECTED 12 Days #30 tab 12/18/23 Rx Allergies Allergy/AdvReac Type Severity Reaction Status Date / Time Penicillins Allergy Dyspnea & Verified 01/20/24 15:07 Hives all over Physical Exam Vitals: Vital Signs Temp Pulse Resp BP Pulse Ox 01/20/24 16:47 91 22 01/20/24 16:31 90 24 01/20/24 15:07 97.9 F 96 26 H 106/67 100 Intake and Output 01/20/24 01/20/24 01/20/24 06:59 14:59 22:59 Other: Weight 63.503 kg Results CBC & Chem 7: 01/20/24 16:08 01/20/24 16:08 Labs: Abnormal Lab Results - Last 24 Hours (Table) 01/20/24 01/20/24 01/20/24 Range/Units 16:08 16:08 16:08 RBC 3.53 L (4.30-5.90) m/uL Hgb 9.9 L (13.0-17.5) gm/dL Hct 33.2 L (39.0-53.0) % MCHC 30.0 L (31.0-37.0) g/dL RDW 22.8 H (11.5-15.5) % Neutrophils # 9.1 H (1.3-7.7) k/uL Lymphocytes # 0.2 L (1.0-4.8) k/uL APTT 32.9 H (22.0-30.0) sec Sodium 135 L (137-145) mmol/L Carbon Dioxide 21 L (22-30) mmol/L BUN 24 H (9-20) mg/dL Glucose 149 H (74-99) mg/dL Plasma Lactic Acid Eugene (0.7-2.0) mmol/L AST 16 L (17-59) U/L 01/20/24 Range/Units 16:08 RBC (4.30-5.90) m/uL Hgb (13.0-17.5) gm/dL Hct (39.0-53.0) % MCHC (31.0-37.0) g/dL RDW (11.5-15.5) % Neutrophils # (1.3-7.7) k/uL Lymphocytes # (1.0-4.8) k/uL APTT (22.0-30.0) sec Sodium (137-145) mmol/L Carbon Dioxide (22-30) mmol/L BUN (9-20) mg/dL Glucose (74-99) mg/dL Plasma Lactic Acid Eugene 2.5 H* (0.7-2.0) mmol/L AST (17-59) U/L
[2024-01-20] MEDS: PIPERACILLIN-TAZOBACTAM 3.375 GM in SODIUM CHLORIDE 0.9% 100 ML IVPB ONE (19:21)
[2024-01-20] MEDS: IPRATROPIUM-ALBUTEROL 3 ML NEB INHALATION SCH (20:34)
[2024-01-20] MEDS: APIXABAN 5 MG TAB PO SCH (21:01)
[2024-01-20] MEDS: ATORVASTATIN 80 MG TAB PO SCH (21:01)
[2024-01-20] MEDS: guaiFENesin 600 MG TABLET.ER PO SCH (21:01)
[2024-01-21] MEDS: methylPREDNISolone SOD SUCCI 125 MG/2 ML VIAL IV SCH (00:22)
[2024-01-21] MEDS: HYDROcodone/APAP 10-325MG 1 EACH TAB PO PRN (01:22)
[2024-01-21] MEDS: PIPERACILLIN-TAZOBACTAM 3.375 GM in SODIUM CHLORIDE 0.9% 100 ML IVPB SCH (03:45)
[2024-01-21] MEDS: IPRATROPIUM-ALBUTEROL 3 ML NEB INHALATION PRN (04:02)
[2024-01-21] MEDS: AMIODARONE 200 MG TAB PO SCH (07:56)
--- NOTE | 2024-01-21 10:58 | P.PN ---
Subjective Progress Note Date: 01/21/24 63 year old M with PMH of lung CA with history of lung abscess, COPD with intermittent home O2, CAD with stents, h/o SVT, HLD presents to the ED for persistent cough. Symptoms ongoing for the past month. Occasionally coughs green sputum, other times clear. Sputum is thick, now unable to cough up anything. PCP prescribed Prednisone and Levaquin which did not improve symptoms. No fever or chills. No chest pain. Denies headache, lower extremity edema, nausea or vomiting, palpitations, changes in urination or bowel habits. Underwent bronchoscopy with Dr. Braga on 12/15, culture grew respiratory jennifer. In the ED he underwent extensive evaluation. BP 106/67, HR 96, T 97.9F, RR 26, 100% on RA. CBC, Coag panel, CMP significant for RBC 3.53, Hg 9.9, Hct 33.2, APTT 32.9, Na 135, bicarb 21, BUN 24, glu 149, AST 16. Lactic acid 2.5. Mag 2.0. EKG sinus rhythm with no ST T wave changes. CXR shows redemonstration of the mass in the right apical and left perihilum. Patient is admitted for further workup and management. Started on bronchodilators and Solumedrol along with Zosyn with Pulmonary consulted. 01/20 Patient was seen and examined. Continues to cough up sputum. COVID, RSV, Flu neg. Lactic acid 1.6. 99% on RA. General: Non toxic, mild distress, cachectic Derm: Warm, dry Head: Atraumatic, normocephalic, symmetric Eyes: EOMI, no lid lag, anicteric sclera Mouth: No lip lesion, mucus membranes moist Cardiovascular: S1S2 tachy, no murmur Lungs: Coarse BS bilateral, no rhonchi, no rales, no accessory muscle use Ext: No gross muscle atrophy, no edema, no contractures Neuro: no focal neuro deficits Psych: Alert, oriented, appropriate affect Based on my assessment of this patient, this patient meets a high complexity level of care. Acute COPD exacerbation: Solumedrol 60 mg IV Q6H. DuoNeb QID scheduled and as needed for shortness of breath. Mucinex 1200 mg PO BID. May need repeat broncho scopy. Pulmonary consult. SIRS: Concerning given immunocompromised nature. Zosyn 3.75 g IV TID. Obtain Sputum, Legionella, Blood cultures. NS at 75 cc/hr. Telemetry monitoring. h/o SVT: Amiodarone 200 mg PO QD. Eliquis 5 mg PO BID. HLD: Lipitor 80 mg PO QHS. Resolved: Lactic acidosis. CODE STATUS: FULL CODE DVT Prophylaxis: Eliquis PO GI Prophylaxis: Protonix PO Designated medical POA if patient is not able to make medical decisions for themselves: I have reviewed the following network relations consultant notes: I have reviewed the results of the following tests: Lactic acid. I have ordered the following tests: CBC and BMP in AM. Sputum, Legionella, Blood culture pending. I have discussed the care of this patient with the following independent historian: I have independently interpreted the following test below: I have discussed the management of this patient with the following physician: Objective - Vital Signs Vital signs: Vital Signs Temp 98.4 F 01/21/24 07:10 Pulse 88 01/21/24 09:04 Resp 18 01/21/24 07:10 BP 114/77 01/21/24 07:10 Pulse Ox 99 01/21/24 07:10 FiO2 Intake & Output 01/20/24 01/21/24 01/21/24 18:59 06:59 18:59 Intake Total 1632 2034 Output Total 250 Balance 1382 4 Weight 63.503 kg 63.503 kg Intake: Intake, IV Titration 375 Amount Sodium Chloride 0.9% 1, 375 000 ml @ 75 mls/hr IV . [id number] [facility] Rx#:[id number] Oral 1257 4 Output: Urine 250 Other: Voiding Method Toilet Urinal # Voids 1 - Labs CBC & Chem 7: 01/20/24 16:08 01/20/24 16:08 Labs: Abnormal Lab Results - Last 24 Hours (Table) 01/20/24 01/20/24 01/20/24 Range/Units 16:08 16:08 16:08 RBC 3.53 L (4.30-5.90) m/uL Hgb 9.9 L (13.0-17.5) gm/dL Hct 33.2 L (39.0-53.0) % MCHC 30.0 L (31.0-37.0) g/dL RDW 22.8 H (11.5-15.5) % Neutrophils # 9.1 H (1.3-7.7) k/uL Lymphocytes # 0.2 L (1.0-4.8) k/uL APTT 32.9 H (22.0-30.0) sec Sodium 135 L (137-145) mmol/L Carbon Dioxide 21 L (22-30) mmol/L BUN 24 H (9-20) mg/dL Glucose 149 H (74-99) mg/dL Plasma Lactic Acid Eugene (0.7-2.0) mmol/L AST 16 L (17-59) U/L 01/20/24 Range/Units 16:08 RBC (4.30-5.90) m/uL Hgb (13.0-17.5) gm/dL Hct (39.0-53.0) % MCHC (31.0-37.0) g/dL RDW (11.5-15.5) % Neutrophils # (1.3-7.7) k/uL Lymphocytes # (1.0-4.8) k/uL APTT (22.0-30.0) sec Sodium (137-145) mmol/L Carbon Dioxide (22-30) mmol/L BUN (9-20) mg/dL Glucose (74-99) mg/dL Plasma Lactic Acid Eugene 2.5 H* (0.7-2.0) mmol/L AST (17-59) U/L
[2024-01-21 12:57] VITALS: BMI 18.4
--- NOTE | 2024-01-21 14:14 | P.CNPUL ---
History of Present Illness Consult date: 01/21/24 Requesting physician: Jerome Sow Reason for consult: dyspnea, abnormal CXR/CT Chief complaint: Shortness of breath, cough, congestion History of present illness: This is a pleasant 63-year-old male patient with a known history of COPD, previous tobacco dependence, hypertension, hyperlipidemia, coronary artery disease with previous PCI/stent, ischemic cardiomyopathy, and atrial fibrilla tion anticoagulated on Eliquis. He was recently here and had a another bronchoscopy on December 16, 2023 with washings negative for malignancy. He does have lung cancer original diagnosed 2020. Currently receiving chemotherapy and radiation treatments however he has been hospitalized frequently causing pauses in his treatments. He presented here again yesterday 01/20/2024 with complaints of increasing shortness of breath, cough and congestion. Chest x-ray reveals redemonstration of the right apical and left perihilar masses. No evidence of pleural effusion, focal consolidation or pneumothorax. No change compared to previous of 12/15/2023. Previous sputum culture from December 14, 2023 was positive for MSSA. He has dad multiple rounds of antibiotics over the past several months. Platelets 182. Sodium 135. Potassium 4.0. Bicarb 21. BUN 24. Creatinine 0.72. Glucose 149. Viral screen is negative. Procalcitonin pending. He is seen today in consultation on the regular medical floor. He is currently sitting up in bed. Awake and alert in no acute distress. Maintaining O2 saturations in the 90s on room air. He is afebrile. Hemodynamically stable. Review of Systems REVIEW OF SYSTEMS: CONSTITUTIONAL: Denies any recent significant weight loss or weight gain. EYES: Denies change in vision. EARS, NOSE, MOUTH, THROAT: Denies headaches, denies sore throat. CARDIOVASCULAR: Denies chest pain, palpitations or syncopal episodes. RESPIRATORY: Positive for shortness of breath, cough, congestion no hemoptysis. GASTROINTESTINAL: Denies change in appetite, denies abdominal pain GENITOURINARY: Denies hematuria, denies infections. MUSKULOSKELETAL: Denies pain, denies swelling. INTEGUMENTARY: Denies rash, denies eczema. NEUROLOGICAL: Denies recent memory loss, no recent seizure activity. PSYCHIATRIC: Denies anxiety, denies depression. HEMATOLOGIC/LYMPHATIC: Denies anemia, denies enlarged lymph nodes. Past Medical History Past Medical History: Atrial Fibrillation, Coronary Artery Disease (CAD), Cancer, Chest Pain / Angina, COPD, Hyperlipidemia, Hypertension, Myocardial Infarction ([place]) Additional Past Medical History / Comment(s): SVT with chest pain/palpitations- chemically converted(2023), lung cancer with chemo and radiation Last Myocardial Infarction Date:: 2017 History of Any Multi-Drug Resistant Organisms: MRSA Date of last positivie culture/infection: 12/23/2013 MDRO Source:: Face Past Surgical History: Heart Catheterization With Stent Additional Past Surgical History / Comment(s): I&D of Right inframandibular abs cess. 3 cardiac stents, bronchoscopy for abscess Past Anesthesia/Blood Transfusion Reactions: No Reported Reaction Additional Past Anesthesia/Blood Transfusion Reaction / Comment(s): platelet transfusions with no reaction r/t chemo Date of Last Stent Placement:: 2017 Past Psychological History: No Psychological Hx Reported Additional Psychological History / Comment(s): He resides with his son. He uses no assistive devices. He no longer drives, his son takes him places. Smoking Status: Current some day smoker Past Alcohol Use History: None Reported Additional Past Alcohol Use History / Comment(s): Pt started smoking when he was 13 1ppd and quit 1 year ago. patient occasionally still smokes a cigarette every couple of days Past Drug Use History: None Reported Additional Drug Use History / Comment(s): Pt denies any drug use. [facility] documents marijuana. - Past Family History Father Family Medical History: No Reported History Additional Family Medical History / Comment(s): Father of "natural causes" at the age of 79yrs. Mother Family Medical History: COPD, Coronary Artery Disease (CAD) Additional Family Medical History / Comment(s): Mother is 76yrs old. She has had several MIs, 6 cardiac stents and a 4 vessel CABG. Medications and Allergies Home Medications Medication Instructions Recorded Confirmed Type Atorvastatin [Lipitor] 80 mg PO HS 03/04/21 01/20/24 History Spiriva Respimat 1.25mcg/Actuation 2 puff INHALATION RT-HS #0 09/01/22 01/20/24 Rx Mist Hydrocodone/Acetaminophen 1 tab PO QID 06/06/23 01/20/24 History [Hydrocodone/Acetaminophen 10-300 mg] Amiodarone [Cordarone] 200 mg PO DAILY #30 tab 09/11/23 01/20/24 Rx Apixaban [Eliquis] 5 mg PO BID 30 Days #60 tab 09/11/23 01/20/24 Rx Cholecalciferol [Vitamin D3 (25 50 mcg PO DAILY 12/14/23 01/20/24 History Mcg = 1000 Iu)] Omeprazole [PriLOSEC] 40 mg PO DAILY PRN 12/14/23 01/20/24 History Albuterol Inhaler [Ventolin Hfa 2 puff INHALATION RT-QID PRN 01/20/24 01/20/24 History Inhaler] Metoprolol Tartrate [Lopressor] 12.5 mg PO BID PRN 01/20/24 01/20/24 History Allergies Allergy/AdvReac Type Severity Reaction Status Date / Time Penicillins Allergy Dyspnea & Verified 01/20/24 18:24 Hives all over Physical Exam Vitals: Vital Signs Temp Pulse Pulse Resp BP BP Pulse Ox 01/21/24 12:39 98.6 F 99 18 129/74 98 01/21/24 12:30 82 01/21/24 12:19 89 01/21/24 09:04 88 01/21/24 08:55 79 01/21/24 07:10 98.4 F 94 18 114/77 99 01/21/24 04:14 92 01/21/24 04:03 96 01/21/24 00:52 97.9 F 88 17 115/69 97 01/20/24 22:28 96.0 F L 94 18 116/75 99 01/20/24 21:43 97.9 F 90 18 102/76 98 01/20/24 20:42 100 01/20/24 20:35 98 01/20/24 19:12 98 20 107/63 99 01/20/24 16:47 91 22 01/20/24 16:31 90 24 01/20/24 15:07 97.9 F 96 26 H 106/67 100 Intake and Output 01/20/24 01/21/24 01/21/24 22:59 06:59 14:59 Intake Total 4998 717 2737 Output Total 250 Balance 4268 379 2600 Intake: Intake, IV Titration 375 Amount Sodium Chloride 0.9% 1, 375 000 ml @ 75 mls/hr IV . [id number] [facility] Rx#:[id number] Oral 1257 2514 Output: Urine 250 Other: Voiding Method Toilet Urinal # Voids 1 Weight 63.503 kg 63.503 kg GENERAL EXAM: Alert, active, 63-year-old male, on room air, comfortable in no apparent distress. HEAD: Normocephalic. EYES: Normal reaction of pupils, equal size. NOSE: Clear with pink turbinates. THROAT: No erythema or exudates. NECK: No masses, no JVD. CHEST: No chest wall deformity. LUNGS: Equal air entry with bilateral scattered rhonchi. CVS: S1 and S2 normal with no audible murmur, regular rhythm. ABDOMEN: No hepatosplenomegaly, normal bowel sounds, no guarding or rigidity. SPINE: No scoliosis or deformity SKIN: No rashes CENTRAL NERVOUS SYSTEM: No focal deficits, tone is normal in all 4 extremities. EXTREMITIES: There is no peripheral edema. No clubbing, no cyanosis. Peripheral pulses are intact. Results - Laboratory Findings CBC and BMP: 01/20/24 16:08 01/20/24 16:08 PT/INR, D-dimer PT 10.4 sec (10.0-12.5) 01/20/24 16:08 INR 0.9 (<1.2) 01/20/24 16:08 Abnormal lab findings: Abnormal Labs 01/20/24 01/20/24 01/20/24 16:08 16:08 16:08 RBC 3.53 L Hgb 9.9 L Hct 33.2 L MCHC 30.0 L RDW 22.8 H Neutrophils # 9.1 H Lymphocytes # 0.2 L APTT 32.9 H Sodium 135 L Carbon Dioxide 21 L BUN 24 H Glucose 149 H Plasma Lactic Acid Eugene AST 16 L 01/20/24 16:08 RBC Hgb Hct MCHC RDW Neutrophils # Lymphocytes # APTT Sodium Carbon Dioxide BUN Glucose Plasma Lactic Acid Eugene 2.5 H* AST - Diagnostic Findings Chest x-ray: image reviewed Assessment and Plan Assessment: Acute exacerbation of chronic obstructive pulmonary disease, chest x-ray showing similar central lung markings suspicious for disease progression. Viral screen negative, procalcitonin pending Metastatic squamous cell carcinoma of the lung initially diagnosed in 2020, likely with disease progression, has recently been treated with chemotherapy and radiation however the patient has had multiple readmissions to the hospital causing pauses in treatment Acute on chronic shortness of breath, secondary to a combination of above Chronic anemia History of hypertension History of hyperlipidemia History of coronary artery disease with previous PCI/stent History of ischemic cardiomyopathy, echocardiogram from 08/27/2022 estimates an impaired left ventricular systolic ejection fraction of 35% Chronic ongoing tobacco dependence, patient restarted smoking History of ocular herpes History of paroxysmal atrial fibrillation, anticoagulated on Eliquis Plan: The patient was seen and evaluated Chest x-ray, labs and medications reviewed Continue antibiotics for now Check a procalcitonin Check urine Legionella antigen Continue Symbicort and DuoNebs Continue Solu-Medrol Anticoagulated with Eliquis Increase with activity as tolerated We will continue to follow and make further recommendations based on his clinical status I have personally seen and examined the patient, performed the documentation and the assessment and plan as written. Number of minutes spent on the visit: 20 Dictation was produced using Exo dictation software. Please excuse any grammatical, word or spelling errors.
--- NOTE | 2024-01-21 16:38 | P.CONS ---
History of Present Illness - Reason for Consult Consult date: 01/21/24 shortness of breath/cough. Metastatic lung cancer - History of Present Illness 62 yo male pt well known to myself, with an oncology history as follows: He initially presented to ER 06/2020 with c/o of cough, hemoptysis intermittently for 7-10 days. CXR did not show any major abnormality. Recommended follow-up as an outpatient with his PCP and get a CT scan done. Patient did not have a PCP so finding a PCP took some time and he did put things off, as he was working and otherwise felt well. Ultimately had a CT chest 02/02/21. This showed a 8.6 x 6.8 cm soft tissue mass encasing the left hilum, contiguous with subcarinal adenopathy. This was causing mild narrowing of the left mainstem bronchus and upper lobe branches. There was also a spiculated right perihilar mass measuring 4.1 x 2.4 cm with some central cavitation. There is a 6 cm nodule in the right midlung, and another 3 mm nodule in the right b ase, 6 mm nodular density in the right upper lobe. Paratracheal and subcarinal adenopathy measured 2.4 cm. Referred to Pulmonary and had bronchoscopy on 02/09/21 of the right and left upper lobes. 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 Referred to Medical Oncology. Had completion of staging with MRI, which was negative. PET scan confirmed uptake in both the right suprahilar, as well as the left hilar mass, with involvement of multiple mediastinal, hilar and subcarinal nodes. Biomarker testing showed positive PD1, with TPS 3-5%. TMB was high at 26+. He was started on immunotherapy 03/27/21. He did well for 19 cycles, then developed progression and was changed to Carbo/Gemzar starting 04/27/22. He had 4 cycles, completing those on 07/07/22. Dose was reduced with cycle 2, because of hematologic toxicity, and G-CSF was added. He was admitted after cycle 4, on 07/09/22, with lower extremity swelling not responding to Lasix, acute kidney injury, and hyperkalemia. It is felt that the patient had steroid insufficiency and was treated supportively, and was discharged on Decadron with follow-up scheduled with endocrinology outpatient. At his visit on 08/03/22 CT showed a partial response, it was decided to give him a treatment break. The patient was admitted to the hospital in mid 09/05 with shortness of breath, and tachycardia. CT angiogram done during that visit was negative for PE, but noted the right-sided lung mass to be larger in size. The patient improved with treatment for pneumonia, CHF and COPD exacerbation and continued on observation. Repeat CT 11/06 showing resolution of lung opacities, and decrease in the right-sided masslike area. At his visit on 01/18/23, he reported a new right-sided headache. He had attributed this to increase in his blood pressure medication, but this is persistent despite him stopping those medicines. MRI of the brain done was negative for metastases however, imaging did show evidence of progression in the lung on the right. The patient was therefore changed to Taxotere and Cyramza, starting the same on 02/10/23. Cyramza was then held after cycle 2, due to hemoptysis, and the patient has continued on Taxotere alone. He completed cycle 4 cycle of single agent Taxotere with GCSF last given 05/26/23. Imaging did not report any areas of new/metastatic disease. Known areas of disease slightly larger-suspect because of infection. He had hospital admission in May, and treatment has been held since due to persisting lung infection. Case was discussed with pulmonology who agreed to hold treatment to allow pt adequate to time to recover. At his last f/u on 07/27, pt was reporting persisting right sided headache, MRI brain was repeated on 08/01, which showed no evidence of mass, acute/subacute infarct, or abnormal enchancement, with nonspecific white matter changes. Plan was for pt to begin palliative RT once cleared by pulmonology and restart single agent Taxotere s/p RT. He has completed 6 of 10 fractions. Patient restarted treatment on 09/26/23. Patient was recently treated with course of oral abx due to c/o of URI symptoms. He then underwent his last cycle of taxotere on 12/05/23 with G-CSF on 12/05, and on his f/u on 12/14/23, was complaining of increased congestion and productive cough, over the past 2-3 days, associated with markedly increased shortness of breath and weakness. He stated that his sputum was still off-white in color, but was becoming more copious. He he was only able to walk a few feet without having to stop and rest, at which time he was referred to the hospital for further evaluation, and subsequently admitted The patient was again found to have postobstructive pneumonia and slowly improved with aggressive treatment. During that admission he was evaluated by radiation oncology, and it was felt that it is likely some progression of the lung mass. Post discharge, it was recommended that he undergo palliative radiation to improve obstructive symptoms, after which systemic therapy would be changed. The patient initially did not keep his appointment with radiation oncology as he was apprehensive about radiation, but then agreed to do so after discussion with myself. He started radiation on 01/16/24. The patient then had another course of steroids and oral antibiotics, because of ongoing symptoms of productive cough, and shortness of breath as well as chest congestion. He completed that about 3 days ago He said that his symptoms started to get worse again after completion of his medications, including shortness of breath, wheezing, chest congestion, and cough which was intermittently productive. In the emergency room chest x-ray showed stable appearance of the lung masses. He was seen by [facility], and was felt to have COPD exacerbation. He was admitted and started on treatment for the same Review of Systems Constitutional: Reports fatigue, Reports weakness Eyes: denies blurred vision, denies pain Ears: deny: decreased hearing, ear discharge, earache, tinnitus Ears, nose, mouth and throat: Denies headache, Denies sore throat Cardiovascular: Reports shortness of breath Respiratory: Reports cough with sputum, Reports dyspnea Gastrointestinal: Denies abdominal pain, Denies diarrhea, Denies nausea, Denies vomiting Genitourinary: Reports as per HPI Musculoskeletal: Reports muscle weakness Integumentary: Denies pruritus, Denies rash Neurological: Reports weakness Psychiatric: Reports anxiety Endocrine: Reports fatigue Past Medical History Past Medical History: Atrial Fibrillation, Coronary Artery Disease (CAD), Cancer, Chest Pain / Angina, COPD, Hyperlipidemia, Hypertension, Myocardial Infarction ([place]) Additional Past Medical History / Comment(s): SVT with chest pain/palpitations- chemically converted(2023), lung cancer with chemo and radiation Last Myocardial Infarction Date:: 2017 History of Any Multi-Drug Resistant Organisms: MRSA Year Discovered:: 12/23/2013 MDRO Source:: Face Past Surgical History: Heart Catheterization With Stent Additional Past Surgical History / Comment(s): I&D of Right inframandibular abscess. 3 cardiac stents, bronchoscopy for abscess Past Anesthesia/Blood Transfusion Reactions: No Reported Reaction Additional Past Anesthesia/Blood Transfusion Reaction / Comm: platelet transfusions with no reaction r/t chemo Date of Last Stent Placement:: 2017 Past Psychological History: No Psychological Hx Reported Additional Psychological History / Comment(s): He resides with his son. He uses no assistive devices. He no longer drives, his son takes him places. Smoking Status: Current some day smoker Past Alcohol Use History: None Reported Additional Past Alcohol Use History / Comment(s): Pt started smoking when he was 13 1ppd and quit 1 year ago. patient occasionally still smokes a cigarette every couple of days Past Drug Use History: None Reported Additional Drug Use History / Comment(s): Pt denies any drug use. [facility] documents marijuana. - Past Family History Father Family Medical History: No Reported History Additional Family Medical History / Comment(s): Father of "natural causes" at the age of 79yrs. Mother Family Medical History: COPD, Coronary Artery Disease (CAD) Additional Family Medical History / Comment(s): Mother is 76yrs old. She has had several MIs, 6 cardiac stents and a 4 vessel CABG. Medications and Allergies Home Medications Medication Instructions Recorded Confirmed Type Atorvastatin [Lipitor] 80 mg PO HS 03/04/21 01/20/24 History Spiriva Respimat 1.25mcg/Actuation 2 puff INHALATION RT-HS #0 09/01/22 01/20/24 Rx Mist Hydrocodone/Acetaminophen 1 tab PO QID 06/06/23 01/20/24 History [Hydrocodone/Acetaminophen 10-300 mg] Amiodarone [Cordarone] 200 mg PO DAILY #30 tab 09/11/23 01/20/24 Rx Apixaban [Eliquis] 5 mg PO BID 30 Days #60 tab 09/11/23 01/20/24 Rx Cholecalciferol [Vitamin D3 (25 50 mcg PO DAILY 12/14/23 01/20/24 History Mcg = 1000 Iu)] Omeprazole [PriLOSEC] 40 mg PO DAILY PRN 12/14/23 01/20/24 History Albuterol Inhaler [Ventolin Hfa 2 puff INHALATION RT-QID PRN 01/20/24 01/20/24 History Inhaler] Metoprolol Tartrate [Lopressor] 12.5 mg PO BID PRN 01/20/24 01/20/24 History Allergies Allergy/AdvReac Type Severity Reaction Status Date / Time Penicillins Allergy Dyspnea & Verified 01/20/24 18:24 Hives all over Physical Exam Vitals: Vital Signs Temp Pulse Pulse Resp BP BP Pulse Ox 01/21/24 12:39 98.6 F 99 18 129/74 98 01/21/24 12:30 82 01/21/24 12:19 89 01/21/24 09:04 88 01/21/24 08:55 79 01/21/24 07:10 98.4 F 94 18 114/77 99 01/21/24 04:14 92 01/21/24 04:03 96 01/21/24 00:52 97.9 F 88 17 115/69 97 01/20/24 22:28 96.0 F L 94 18 116/75 99 01/20/24 21:43 97.9 F 90 18 102/76 98 01/20/24 20:42 100 01/20/24 20:35 98 01/20/24 19:12 98 20 107/63 99 01/20/24 16:47 91 22 01/20/24 16:31 90 24 Intake and Output 01/21/24 01/21/24 01/21/24 06:59 14:59 22:59 Intake Total 375 2514 Output Total 250 Balance 125 2514 Intake: Intake, IV Titration 375 Amount Sodium Chloride 0.9% 1, 375 000 ml @ 75 mls/hr IV . [id number] GILMER Rx#:[id number] Oral 2514 Output: Urine 250 Other: # Voids 1 Weight 63.503 kg - Constitutional General appearance: mild distress - EENT Eyes: EOMI, PERRLA ENT: hearing grossly normal, normal oropharynx - Neck Neck: no lymphadenopathy Thyroid: bilateral: normal size - Respiratory Respiratory: bilateral: wheezing - Cardiovascular Rhythm: regular Heart sounds: normal: S1, S2 - Gastrointestinal General gastrointestinal: normal bowel sounds, soft - Integumentary Integumentary: normal - Neurologic Neurologic: CNII-XII intact - Musculoskeletal Musculoskeletal: generalized weakness, strength equal bilaterally - Psychiatric Psychiatric: A&O x's 3 Results CBC & Chem 7: 01/20/24 16:08 01/20/24 16:08 Labs: Abnormal Lab Results - Last 24 Hours (Table) 01/20/24 01/20/24 01/20/24 Range/Units 16:08 16:08 16:08 APTT 32.9 H (22.0-30.0) sec Sodium 135 L (137-145) mmol/L Carbon Dioxide 21 L (22-30) mmol/L BUN 24 H (9-20) mg/dL Glucose 149 H (74-99) mg/dL Plasma Lactic Acid Eugene 2.5 H* (0.7-2.0) mmol/L AST 16 L (17-59) U/L Comments: EKG image reviewed Chest x-ray: report reviewed Assessment and Plan (1) Acute exacerbation of chronic obstructive pulmonary disease Narrative/Plan: the patient has been having ongoing issues with episodes of acute on chronic respiratory failure, due to postobstructive pneumonia, related especially to the right lung mass. He had an admission for the same about 5 weeks ago. He has continued to have symptoms post discharge, although these were initially im proved. He required another course of steroids and antibiotics, because of worsening, with partial improvement and then fairly rapid worsening again on completion of his treatment. In the interim he has started radiation with palliative intent to try to improve obstructive symptoms. - If this admission, chest x-ray does not show any definite, we did change compared to before. Therefore this presentation appears to be due to exacerbation of COPD, based on imaging, as well as physical exam. the patient is being managed with breathing treatments, IV steroids and IV antibiotics. Although the x-ray looks unchanged, some component of recurrent post obstructive infection cannot be totally ruled out. - Therefore to the admitting service and pulmonary medicine for ongoing treatment Current Visit: Yes Status: Acute Priority: High Code(s): J44.1 - CHRONIC OBSTRUCTIVE PULMONARY DISEASE W (ACUTE) EXACERBATION SNOMED Code(s): 336922247 (2) Squamous cell lung cancer Narrative/Plan: diagnostic and therapeutic circumstances as described. Once acute condition is sufficiently improved, the patient will resume palliative radiation. Hopefully this will reduce the incidence of postoperative infection causing multiple e pisodes of acute on chronic respiratory failure, and also delaying his systemic therapy. After completion of radiation, the plan is to resume systemic therapy with a different regimen. 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 Hemoglobin is currently adequate. Continue to monitor. Transfuse to keep greater than 7
[2024-01-21] MEDS: MELATONIN 5 MG TABLET PO PRN (20:56)
[2024-01-21] MEDS: SYMBICORT 160-4.5 MCG INHALER INHALATION SCH (21:44)
[2024-01-22] MEDS: PANTOPRAZOLE 40 MG TABLET PO SCH (06:26)
[2024-01-22 07:17] LABS: Anisocytosis Moderate; HCT 30.8 % (39.0-53.0); Hypochromasia Marked; MCH 28.1 pg (25.0-35.0); MCHC 29.4 g/dL (31.0-37.0); MCV 95.6 fL (80.0-100.0); Macrocytosis Moderate; Mean Platelet Volume 8.8; Platelet Count 182 k/uL (150-450); Poikilocytosis Slight; RBC 3.22 m/uL (4.30-5.90); RDW 22.6 % (11.5-15.5); WBC 12.3 k/uL (3.8-10.6)
[2024-01-22 07:24] LABS: African American GFR (CKD) >90 (>60 ml/min/1.73 sqM); Anion Gap 7 mmol/L; Blood Urea Nitrogen 24 mg/dL (9-20); Calcium 9.4 mg/dL (8.4-10.2); Carbon Dioxide 24 mmol/L (22-30); Chloride 102 mmol/L (98-107); Glucose 122 mg/dL (74-99); Non-African American GFR(CKD) >90 (>60 ml/min/1.73 sqM); Potassium 4.7 mmol/L (3.5-5.1); Sodium 133 mmol/L (137-145)
[2024-01-22] MEDS ORDERED: ZOLPIDEM 5 MG TAB PO PRN (12:15)
--- NOTE | 2024-01-22 12:15 | P.PN ---
Subjective Progress Note Date: 01/22/24 63 year old M with PMH of lung CA with history of lung abscess, COPD with intermittent home O2, CAD with stents, h/o SVT, HLD presents to the ED for persistent cough. Symptoms ongoing for the past month. Occasionally coughs green sputum, other times clear. Sputum is thick, now unable to cough up anything. PCP prescribed Prednisone and Levaquin which did not improve symptoms. No fever or chills. No chest pain. Denies headache, lower extremity edema, nausea or vomiting, palpitations, changes in urination or bowel habits. Underwent bronchoscopy with Dr. Braga on 12/15, culture grew respiratory jennifer. In the ED he underwent extensive evaluation. BP 106/67, HR 96, T 97.9F, RR 26, 100% on RA. CBC, Coag panel, CMP significant for RBC 3.53, Hg 9.9, Hct 33.2, APTT 32.9, Na 135, bicarb 21, BUN 24, glu 149, AST 16. Lactic acid 2.5. Mag 2.0. EKG sinus rhythm with no ST T wave changes. CXR shows redemonstration of the mass in the right apical and left perihilum. Patient is admitted for further workup and management. Started on bronchodilators and Solumedrol along with Zosyn with Pulmonary consulted. 01/21 Patient was seen and examined. Continues to cough up sputum. CBC and BMP significant WBC 12.3, RBC 3.22, Hg 9, Hct 30.8, Na 133, BUN 24, glu 122. Legionella neg. BCx neg so far. Sputum Cx many PMN, few G+C, rare G+B. General: Non toxic, mild distress, cachectic Derm: Warm, dry Head: Atraumatic, normocephalic, symmetric Eyes: EOMI, no lid lag, anicteric sclera Mouth: No lip lesion, mucus membranes moist Cardiovascular: S1S2 tachy, no murmur Lungs: Coarse BS bilateral, no rhonchi, no rales, no accessory muscle use Ext: No gross muscle atrophy, no edema, no contractures Neuro: no focal neuro deficits Psych: Alert, oriented, appropriate affect Based on my assessment of this patient, this patient meets a high complexity level of care. Acute COPD exacerbation: Solumedrol 60 mg IV Q6H. DuoNeb QID scheduled and as needed for shortness of breath. Mucinex 1200 mg PO BID. May need repeat b ronchoscopy. Pulmonary on board. Normocytic anemia: History of underlying malignancy. At baseline. No signs of active bleeding. Leukocytosis likely steroid induced. SIRS: Concerning given immunocompromised nature. Zosyn 3.75 g IV TID. Legionella neg. BCx neg so far. Sputum Cx many PMN, few G+C, rare G+B. NS at 75 cc/hr. Telemetry monitoring. h/o SVT: Amiodarone 200 mg PO QD. Eliquis 5 mg PO BID. HLD: Lipitor 80 mg PO QHS. Metastatic SCC of the lung: Oncology on board. Resolved: Lactic acidosis. CODE STATUS: FULL CODE DVT Prophylaxis: Eliquis PO GI Prophylaxis: Protonix PO Designated medical POA if patient is not able to make medical decisions for themselves: I have reviewed the following warehouse consultant notes: Pulmonary, Oncology note. I have reviewed the results of the following tests: CBC, BMP, Sputum, Legionella, BCx. I have ordered the following tests: I have discussed the care of this patient with the following independent historian: I have independently interpreted the following test below: I have discussed the management of this patient with the following physician: Objective - Vital Signs Vital signs: Vital Signs Temp 98.6 F 01/22/24 07:35 Pulse 84 01/22/24 08:22 Resp 17 01/22/24 07:35 BP 143/88 01/22/24 07:35 Pulse Ox 95 01/22/24 07:35 FiO2 Intake & Output 01/21/24 01/22/24 01/22/24 18:59 06:59 18:59 Intake Total 2514 Balance 2514 Weight 63.503 kg Intake: Oral 2514 Other: Voiding Method Toilet Urinal # Voids 1 1 # Bowel Movements 1 - Labs CBC & Chem 7: 01/22/24 06:36 01/22/24 06:36 Labs: Abnormal Lab Results - Last 24 Hours (Table) 01/22/24 01/22/24 Range/Units 06:36 06:36 WBC 12.3 H (3.8-10.6) k/uL RBC 3.22 L (4.30-5.90) m/uL Hgb 9.0 L (13.0-17.5) gm/dL Hct 30.8 L (39.0-53.0) % MCHC 29.4 L (31.0-37.0) g/dL RDW 22.6 H (11.5-15.5) % Sodium 133 L (137-145) mmol/L BUN 24 H (9-20) mg/dL Glucose 122 H (74-99) mg/dL Microbiology - Last 24 Hours (Table) 01/21/24 00:25 Gram Stain - Preliminary Sputum 01/20/24 16:08 Blood Culture - Preliminary Blood
--- NOTE | 2024-01-22 14:06 | P.PN ---
Subjective Progress Note Date: 01/22/24 This is a pleasant 63-year-old male patient with a known history of COPD, previous tobacco dependence, hypertension, hyperlipidemia, coronary artery disease with previous PCI/stent, ischemic cardiomyopathy, and atrial fibrillation anticoagulated on Eliquis. He was recently here and had a another bronchoscopy on December 16, 2023 with washings negative for malignancy. He does have lung cancer original diagnosed 2020. Currently receiving chemotherapy and radiation treatments however he has been hospitalized frequently causing pauses in his treatments. He presented here again yesterday 01/20/2024 with complaints of increasing shortness of breath, cough and congestion. Chest x-ray reveals redemonstration of the right apical and left perihilar masses. No evidence of pleural effusion, focal consolidation or pneumothorax. No change compared to previous of 12/15/2023. Previous sputum culture from December 14, 2023 was positive for MSSA. He has dad multiple rounds of antibiotics over the past se veral months. Platelets 182. Sodium 135. Potassium 4.0. Bicarb 21. BUN 24. Creatinine 0.72. Glucose 149. Viral screen is negative. Procalcitonin pending. He is seen today in consultation on the regular medical floor. He is currently sitting up in bed. Awake and alert in no acute distress. Maintaining O2 saturations in the 90s on room air. He is afebrile. Hemodynamically stable. The patient is seen today January 22, 2024 in follow-up on the regular medical floor. He is currently sitting up at the bedside. Awake and alert in no acute distress. He continues with some shortness of breath, loose congested cough. Maintaining O2 saturations in the 90s on 2 L/min per nasal cannula. Sputum culture revealing presumptive Staph aureus. Blood culture pending. White count 12.3. Hemoglobin 9.0. Platelets 182. Sodium 133. Potassium 4.7. Bicarb 24. BUN 24. Creatinine 0.66. Glucose 122. Viral screen is negative. Urine Legionella screen negative. He is continued on DuoNeb inhalations, Symbicort, Solu-Medrol. Antibiotics in the form of Zosyn. Anticoagulated with Eliquis. Objective - Vital Signs Vital signs: Vital Signs Temp 98.6 F 01/22/24 07:35 Pulse 84 01/22/24 11:37 Resp 17 01/22/24 08:40 BP 143/88 01/22/24 07:35 Pulse Ox 95 01/22/24 07:35 FiO2 Intake & Output 01/21/24 01/22/24 01/22/24 18:59 06:59 18:59 Intake Total 2514 Balance 2514 Weight 63.503 kg Intake: Oral 2514 Other: Voiding Method Toilet Toilet Urinal Urinal # Voids 1 1 # Bowel Movements 1 - Exam GENERAL EXAM: Alert, 63-year-old male, sitting up at the bedside, on 2 L/min per nasal cannula, comfortable in no apparent distress. HEAD: Normocephalic. EYES: Normal reaction of pupils, equal size. NOSE: Clear with pink turbinates. THROAT: No erythema or exudates. NECK: No masses, no JVD. CHEST: No chest wall deformity. LUNGS: Equal air entry with bilateral scattered rhonchi. CVS: S1 and S2 normal with no audible murmur, regular rhythm. ABDOMEN: No hepatosplenomegaly, normal bowel sounds, no guarding or rigidity. SPINE: No scoliosis or deformity SKIN: No rashes CENTRAL NERVOUS SYSTEM: No focal deficits, tone is normal in all 4 extremities. EXTREMITIES: There is no peripheral edema. No clubbing, no cyanosis. Peripheral pulses are intact. - Labs CBC & Chem 7: 01/22/24 06:36 01/22/24 06:36 Labs: Abnormal Lab Results - Last 24 Hours (Table) 01/22/24 01/22/24 Range/Units 06:36 06:36 WBC 12.3 H (3.8-10.6) k/uL RBC 3.22 L (4.30-5.90) m/uL Hgb 9.0 L (13.0-17.5) gm/dL Hct 30.8 L (39.0-53.0) % MCHC 29.4 L (31.0-37.0) g/dL RDW 22.6 H (11.5-15.5) % Sodium 133 L (137-145) mmol/L BUN 24 H (9-20) mg/dL Glucose 122 H (74-99) mg/dL Microbiology - Last 24 Hours (Table) 01/21/24 00:25 Gram Stain - Preliminary Sputum Sputum Culture - Preliminary Presumptive Staph aureus 01/20/24 16:08 Blood Culture - Preliminary Blood Assessment and Plan Assessment: Acute exacerbation of chronic obstructive pulmonary disease, chest x-ray showing similar central lung markings suspicious for disease progression. Viral screen negative, procalcitonin negative. Sputum culture revealing presumptive staph. Previous culture was MSSA Metastatic squamous cell carcinoma of the lung initially diagnosed in 2020, likely with disease progression, has recently been treated with chemotherapy and radiation however the patient has had multiple readmissions to the hospital causing pauses in treatment Acute on chronic shortness of breath, secondary to a combination of above Chronic anemia History of hypertension History of hyperlipidemia History of coronary artery disease with previous PCI/stent History of ischemic cardiomyopathy, echocardiogram from 08/27/2022 estimates an impaired left ventricular systolic ejection fraction of 35% Chronic ongoing tobacco dependence, patient restarted smoking History of ocular herpes History of paroxysmal atrial fibrillation, anticoagulated on Eliquis Plan: The patient was seen and evaluated Labs and medications reviewed Continue the current treatment plan Titrate the FiO2 as tolerated May need bronchoscopy if no improvement over the next 24 to 48 hours We will continue to follow I have personally seen and examined the patient, performed the documentation and the assessment and plan as written. Number of minutes spent on the visit: 10 Dictation was produced using [employer] dictation software. Please excuse any grammatical, word or spelling errors.
[2024-01-22] MEDS: BENZONATATE 100 MG CAP PO PRN (22:37)
--- NOTE | 2024-01-23 08:57 | P.PN ---
Subjective Progress Note Date: 01/23/24 Principal diagnosis: dyspnea/pneumonia This past Tuesday, the patient became increasingly dyspneic with productive cough. He has had recurrent pneumonia secondary to his lung cancer. He had recently finished a course of Levaquin, but was concerned he is now developing a new pneumonia. He presented to the ER and was hospitalized. Pulmonary is considering bronchoscopy. He feels slightly better today. His cough is a bit less frequent. Objective - Vital Signs Vital signs: Vital Signs Temp 98.3 F 01/23/24 07:35 Pulse 92 01/23/24 07:57 Resp 18 01/23/24 07:35 BP 144/89 01/23/24 07:35 Pulse Ox 95 01/23/24 07:35 FiO2 Intake & Output 01/22/24 01/23/24 01/23/24 18:59 06:59 18:59 Intake Total 1857 Balance 185 Intake: Oral 1856 Other: Voiding Method Toilet Urinal # Voids 4 5 # Bowel Movements 1 - Constitutional General appearance: Present: no acute distress - EENT Eyes: Present: EOMI, PERRLA ENT: Present: hearing grossly normal - Respiratory Respiratory: bilateral: diminished, wheezing - Cardiovascular Rhythm: regular - Gastrointestinal General gastrointestinal: Absent: tenderness - Integumentary Integumentary: Present: pale - Neurologic Neurologic: Present: CNII-XII intact - Musculoskeletal Musculoskeletal: Present: strength equal bilaterally - Psychiatric Psychiatric: Present: A&O x's 3, appropriate affect - Labs CBC & Chem 7: 01/22/24 06:36 01/22/24 06:36 Labs: Microbiology - Last 24 Hours (Table) 01/20/24 16:08 Blood Culture - Preliminary Blood 01/21/24 00:25 Gram Stain - Preliminary Sputum Sputum Culture - Preliminary Presumptive Staph aureus Assessment and Plan Assessment: The patient is a 63-year-old male, previously diagnosed with a stage WHIT (cT3, 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 He has undergone several lines of therapy, and unfortunately now presents secondary to disease progression and recurrent pneumonia. The patient underwent a partial palliative course of radiotherapy stopping on 09/05/23 after receiving 18/30 Gy planned treatment. He has since started a second course of radiotherapy, finishing 08/27 planned treatments before becoming hospitalized. Plan: 1. Pneumonia - likely post-obstructive and recurrent in nature. Patient will continue current antibiotic regimen, and we'll plan for possible bronchoscopy this week per pulmonology. At this point, we will plan to continue with the patient's palliative radiotherapy during his hospital stay. Will plan to bring the patient down around 12 today. We are hopeful that if the patient is able to finish this treatment course, that he will have fewer hospitalization secondary to pneumonia. Time with Patient: Less than 30
--- NOTE | 2024-01-23 12:02 | P.PN ---
Subjective Progress Note Date: 01/23/24 63 year old M with PMH of lung CA with history of lung abscess, COPD with intermittent home O2, CAD with stents, h/o SVT, HLD presents to the ED for persistent cough. Symptoms ongoing for the past month. Occasionally coughs green sputum, other times clear. Sputum is thick, now unable to cough up anything. PCP prescribed Prednisone and Levaquin which did not improve symptoms. No fever or chills. No chest pain. Denies headache, lower extremity edema, nausea or vomiting, palpitations, changes in urination or bowel habits. Underwent bronchoscopy with Dr. Braga on 12/15, culture grew respiratory jennifer. In the ED he underwent extensive evaluation. BP 106/67, HR 96, T 97.9F, RR 26, 100% on RA. CBC, Coag panel, CMP significant for RBC 3.53, Hg 9.9, Hct 33.2, APTT 32.9, Na 135, bicarb 21, BUN 24, glu 149, AST 16. Lactic acid 2.5. Mag 2.0. EKG sinus rhythm with no ST T wave changes. CXR shows redemonstration of the mass in the right apical and left perihilum. Patient is admitted for further workup and management. Started on bronchodilators and Solumedrol along with Zosyn with Pulmonary consulted. 01/21 Patient was seen and examined. Continues to cough up sputum. CBC and BMP significant WBC 12.3, RBC 3.22, Hg 9, Hct 30.8, Na 133, BUN 24, glu 122. Legionella neg. BCx neg so far. Sputum Cx many PMN, few G+C, rare G+B. 01/22. Patient seen and examined at bedside. No new labs today. Continues to endorse mild exertional dyspnea and sputum production. Patient scheduled to undergo inpatient radiotherapy for his lung CA. General: Non toxic, mild distress, cachectic Derm: Warm, dry Head: Atraumatic, normocephalic, symmetric Eyes: EOMI, no lid lag, anicteric sclera Mouth: No lip lesion, mucus membranes moist Cardiovascular: S1S2 tachy, no murmur Lungs: Coarse BS bilateral, no rhonchi, no rales, no accessory muscle use Ext: No gross muscle atrophy, no edema, no contractures Neuro: no focal neuro deficits Psych: Alert, oriented, appropriate affect Based on my assessment of this patient, this patient meets a high complexity level of care. Acute COPD exacerbation: Solumedrol 60 mg IV Q6H. DuoNeb QID scheduled and as needed for shortness of breath. Mucinex 1200 mg PO BID. Pulmonary on board- possible bronchoscopy this week. Normocytic anemia: History of underlying malignancy. At baseline. No signs of active bleeding. Leukocytosis likely steroid induced. SIRS: Concerning given immunocompromised nature. Zosyn 3.75 g IV TID. Legionella neg. BCx neg so far. Sputum Cx many PMN, few G+C, rare G+B. NS at 75 cc/hr. Telemetry monitoring. H/O SVT: Amiodarone 200 mg PO QD. Eliquis 5 mg PO BID. HLD: Lipitor 80 mg PO QHS. Metastatic SCC of the lung: Oncology on board. Scheduled to undergo radiotherapy today. Resolved: Lactic acidosis. CODE STATUS: FULL CODE DVT Prophylaxis: Eliquis PO GI Prophylaxis: Protonix PO Designated medical POA if patient is not able to make medical decisions for themselves: I have reviewed the following organizational research consultant notes: Pulmonary, Oncology note. I have reviewed the results of the following tests: CBC, BMP, Sputum, Legione lla, BCx. I have ordered the following tests: I have discussed the care of this patient with the following independent historian: I have independently interpreted the following test below: I have discussed the management of this patient with the following physician: I saw and evaluated the patient during the doe and critical portions of this encounter, and discussed the case in detail with the resident author of this note, I agree with the Assessment and Plan, and my changes, if any, are noted below. No changes in symptoms. Plans for RT today per Rad-Onc. Pulmonary plans on bronchoscopy with BAL tomorrow. Sputum Cx growing presumptive Staph aureus. Continue Zosyn. Objective - Vital Signs Vital signs: Vital Signs Temp 98.3 F 01/23/24 07:35 Pulse 92 01/23/24 07:57 Resp 18 01/23/24 07:35 BP 144/89 01/23/24 07:35 Pulse Ox 95 01/23/24 07:35 FiO2 Intake & Output 01/22/24 01/23/24 01/23/24 18:59 06:59 18:59 Intake Total 1857 Balance 1857 Intake: Oral 1856 Other: Voiding Method Toilet Urinal # Voids 4 5 # Bowel Movements 1 - Labs CBC & Chem 7: 01/22/24 06:36 01/22/24 06:36 Labs: Microbiology - Last 24 Hours (Table) 01/20/24 16:08 Blood Culture - Preliminary Blood 01/21/24 00:25 Gram Stain - Preliminary Sputum Sputum Culture - Preliminary Presumptive Staph aureus
--- NOTE | 2024-01-23 15:33 | P.PN ---
Subjective Progress Note Date: 01/23/24 This is a pleasant 63-year-old male patient with a known history of COPD, previous tobacco dependence, hypertension, hyperlipidemia, coronary artery disease with previous PCI/stent, ischemic cardiomyopathy, and atrial fibrillation anticoagulated on Eliquis. He was recently here and had a another bronchoscopy on December 16, 2023 with washings negative for malignancy. He does have lung cancer original diagnosed 2020. Currently receiving chemotherapy and radiation treatments however he has been hospitalized frequently causing pauses in his treatments. He presented here again yesterday 01/20/2024 with complaints of increasing shortness of breath, cough and congestion. Chest x-ray reveals redemonstration of the right apical and left perihilar masses. No evidence of pleural effusion, focal consolidation or pneumothorax. No change compared to previous of 12/15/2023. Previous sputum culture from December 14, 2023 was positive for MSSA. He has dad multiple rounds of antibiotics over the past se veral months. Platelets 182. Sodium 135. Potassium 4.0. Bicarb 21. BUN 24. Creatinine 0.72. Glucose 149. Viral screen is negative. Procalcitonin pending. He is seen today in consultation on the regular medical floor. He is currently sitting up in bed. Awake and alert in no acute distress. Maintaining O2 saturations in the 90s on room air. He is afebrile. Hemodynamically stable. The patient is seen today January 22, 2024 in follow-up on the regular medical floor. He is currently sitting up at the bedside. Awake and alert in no acute distress. He continues with some shortness of breath, loose congested cough. Maintaining O2 saturations in the 90s on 2 L/min per nasal cannula. Sputum culture revealing presumptive Staph aureus. Blood culture pending. White count 12.3. Hemoglobin 9.0. Platelets 182. Sodium 133. Potassium 4.7. Bicarb 24. BUN 24. Creatinine 0.66. Glucose 122. Viral screen is negative. Urine Legionella screen negative. He is continued on DuoNeb inhalations, Symbicort, Solu-Medrol. Antibiotics in the form of Zosyn. Anticoagulated with Eliquis. The patient is seen today January 23, 2024 in follow-up on the regular medical floor. He is awake and alert in no acute distress. Feeling a bit better today compared to yesterday. Continue with radiation treatments. He remains on DuoNeb inhalations, Symbicort, Solu-Medrol. Antibiotics in the form of Zosyn. Anticoagulated with Eliquis. No new labs today. Objective - Vital Signs Vital signs: Vital Signs Temp 97.9 F 01/23/24 13:25 Pulse 102 H 01/23/24 13:25 Resp 18 01/23/24 13:25 BP 134/82 01/23/24 13:25 Pulse Ox 97 01/23/24 13:25 FiO2 Intake & Output 01/22/24 01/23/24 01/23/24 18:59 06:59 18:59 Intake Total 1857 Balance 1857 Intake: Oral 1857 Other: Voiding Method Toilet Toilet Urinal Urinal # Voids 4 5 # Bowel Movements 1 - Exam GENERAL EXAM: Alert, 63-year-old male, on 2 L/min per nasal cannula,in no apparent distress. HEAD: Normocephalic. EYES: Normal reaction of pupils, equal size. NOSE: Clear with pink turbinates. THROAT: No erythema or exudates. NECK: No masses, no JVD. CHEST: No chest wall deformity. LUNGS: Equal air entry with bilateral scattered rhonchi. CVS: S1 and S2 normal with no audible murmur, regular rhythm. ABDOMEN: No hepatosplenomegaly, normal bowel sounds, no guarding or rigidity. SPINE: No scoliosis or deformity SKIN: No rashes CENTRAL NERVOUS SYSTEM: No focal deficits, tone is normal in all 4 extremities. EXTREMITIES: There is no peripheral edema. No clubbing, no cyanosis. Peripheral pulses are intact. - Labs CBC & Chem 7: 01/22/24 06:36 01/22/24 06:36 Labs: Microbiology - Last 24 Hours (Table) 01/21/24 00:25 Gram Stain - Final Sputum Sputum Culture - Final Staphylococcus aureus 01/20/24 16:08 Blood Culture - Preliminary Blood Assessment and Plan Assessment: Acute exacerbation of chronic obstructive pulmonary disease, chest x-ray showing similar central lung markings suspicious for disease progression. Viral screen negative, procalcitonin negative. Sputum culture revealing methicillin sensitive Staphylococcus aureus. Metastatic squamous cell carcinoma of the lung initially diagnosed in 2020, likely with disease progression, has recently been treated with chemotherapy and radiation however the patient has had multiple readmissions to the hospital causing pauses in treatment Acute on chronic shortness of breath, secondary to a combination of above Chronic anemia History of hypertension History of hyperlipidemia History of coronary artery disease with previous PCI/stent History of ischemic cardiomyopathy, echocardiogram from 08/27/2022 estimates an impaired left ventricular systolic ejection fraction of 35% Chronic ongoing tobacco dependence, patient restarted smoking History of ocular herpes History of paroxysmal atrial fibrillation, anticoagulated on Eliquis Plan: The patient was seen and evaluated Labs and medications reviewed Continue the current treatment plan Titrate the FiO2 as tolerated He has been slow to improve Plan bronchoscopy with BAL tomorrow We will continue to follow I have personally seen and examined the patient, performed the documentation and the assessment and plan as written. Number of minutes spent on the visit: 10 Dictation was produced using [employer] dictation software. Please excuse any grammatical, word or spelling errors.
[2024-01-23] MEDS: ZOLPIDEM 5 MG TAB PO SCH (21:18)
[2024-01-23] MEDS: METOPROLOL TARTRATE 12.5 MG TAB PO PRN (23:06)
--- NOTE | 2024-01-24 12:02 | P.PN ---
Subjective Progress Note Date: 01/24/24 63 year old M with PMH of lung CA with history of lung abscess, COPD with intermittent home O2, CAD with stents, h/o SVT, HLD presents to the ED for persistent cough. Symptoms ongoing for the past month. Occasionally coughs green sputum, other times clear. Sputum is thick, now unable to cough up anything. PCP prescribed Prednisone and Levaquin which did not improve symptoms. No fever or chills. No chest pain. Denies headache, lower extremity edema, nausea or vomiting, palpitations, changes in urination or bowel habits. Underwent bronchoscopy with Dr. Braga on 12/15, culture grew respiratory jennifer. In the ED he underwent extensive evaluation. BP 106/67, HR 96, T 97.9F, RR 26, 100% on RA. CBC, Coag panel, CMP significant for RBC 3.53, Hg 9.9, Hct 33.2, APTT 32.9, Na 135, bicarb 21, BUN 24, glu 149, AST 16. Lactic acid 2.5. Mag 2.0. EKG sinus rhythm with no ST T wave changes. CXR shows redemonstration of the mass in the right apical and left perihilum. Patient is admitted for further workup and management. Started on bronchodilators and Solumedrol along with Zosyn with Pulmonary consulted. Slow to progress. Rad-Onc consulted, underwent palliative RT on 01/22. Pulmonary consulted, plans for bronchoscopy with BAL 01/23. 01/23 Patient was seen and examined. Continues to cough up sputum. Sputum Cx + staph aureus. General: Non toxic, mild distress, cachectic Derm: Warm, dry Head: Atraumatic, normocephalic, symmetric Eyes: EOMI, no lid lag, anicteric sclera Mouth: No lip lesion, mucus membranes moist Cardiovascular: S1S2 tachy, no murmur Lungs: Coarse BS bilateral, no rhonchi, no rales, no accessory muscle use Ext: No gross muscle atrophy, no edema, no contractures Neuro: no focal neuro deficits Psych: Alert, oriented, appropriate affect Based on my assessment of this patient, this patient meets a high complexity level of care. Acute COPD exacerbation: Solumedrol 60 mg IV Q6H. DuoNeb QID scheduled and as needed for shortness of breath. Mucinex 1200 mg PO BID. Plans for bronchoscopy with BAL 01/23. Pulmonary on board. Normocytic anemia: History of underlying malignancy. At baseline. No signs of active bleeding. Leukocytosis likely steroid induced. SIRS: Concerning given immunocompromised nature. Zosyn 3.75 g IV TID (D4). Legionella neg. BCx neg so far. Sputum Cx staph aureus but pro-rafita negative likely colonization. NS at 75 cc/hr. Telemetry monitoring. h/o SVT: Amiodarone 200 mg PO QD. Eliquis 5 mg PO BID. HLD: Lipitor 80 mg PO QHS. Metastatic SCC of the lung: Oncology and Rad-Onc on board. Resolved: Lactic acidosis. CODE STATUS: FULL CODE DVT Prophylaxis: Eliquis PO GI Prophylaxis: Protonix PO Designated medical POA if patient is not able to make medical decisions for themselves: I have reviewed the following business systems consultant notes: Pulmonary, Rad-Onc note. I have reviewed the results of the following tests: Sputum Cx. I have ordered the following tests: I have discussed the care of this patient with the following independent historian: I have independently interpreted the following test below: I have discussed the management of this patient with the following physician: Objective - Vital Signs Vital signs: Vital Signs Temp 98.6 F 01/24/24 08:03 Pulse 92 01/24/24 08:46 Resp 16 01/24/24 08:03 BP 143/81 01/24/24 08:03 Pulse Ox 94 L 01/24/24 08:37 FiO2 Intake & Output 01/23/24 01/24/24 01/24/24 18:59 06:59 18:59 Intake Total 540 Output Total 325 Balance 215 Intake: Oral 540 Output: Urine 325 Other: Voiding Method Toilet Toilet Toilet Urinal Urinal # Voids 3 4 # Bowel Movements 1 - Labs CBC & Chem 7: 01/22/24 06:36 01/22/24 06:36 Labs: Microbiology - Last 24 Hours (Table) 01/20/24 16:08 Blood Culture - Preliminary Blood 01/21/24 00:25 Gram Stain - Final Sputum Sputum Culture - Final Staphylococcus aureus
[2024-01-24] MEDS ORDERED: PROPOFOL 10 MG/ML 20 ML VIAL IV ONE (13:42)
[2024-01-24] MEDS ORDERED: LIDOCAINE 2% (PF) 20 MG/ML 5 ML VIAL ONE (13:42)
[2024-01-24] MEDS: SODIUM CHLORIDE 0.9% 500 ML 500 ML IV ONE (13:44)
[2024-01-24] MEDS: LIDOCAINE 2% INJ 20 MG/ML INTRATRACH ONE (13:52)
--- NOTE | 2024-01-24 14:31 | P.PN ---
Subjective Progress Note Date: 01/24/24 This is a pleasant 63-year-old male patient with a known history of COPD, previous tobacco dependence, hypertension, hyperlipidemia, coronary artery disease with previous PCI/stent, ischemic cardiomyopathy, and atrial fibrillation anticoagulated on Eliquis. He was recently here and had a another bronchoscopy on December 16, 2023 with washings negative for malignancy. He does have lung cancer original diagnosed 2020. Currently receiving chemotherapy and radiation treatments however he has been hospitalized frequently causing pauses in his treatments. He presented here again yesterday 01/20/2024 with complaints of increasing shortness of breath, cough and congestion. Chest x-ray reveals redemonstration of the right apical and left perihilar masses. No evidence of pleural effusion, focal consolidation or pneumothorax. No change compared to previous of 12/15/2023. Previous sputum culture from December 14, 2023 was positive for MSSA. He has dad multiple rounds of antibiotics over the past se veral months. Platelets 182. Sodium 135. Potassium 4.0. Bicarb 21. BUN 24. Creatinine 0.72. Glucose 149. Viral screen is negative. Procalcitonin pending. He is seen today in consultation on the regular medical floor. He is currently sitting up in bed. Awake and alert in no acute distress. Maintaining O2 saturations in the 90s on room air. He is afebrile. Hemodynamically stable. The patient is seen today January 22, 2024 in follow-up on the regular medical floor. He is currently sitting up at the bedside. Awake and alert in no acute distress. He continues with some shortness of breath, loose congested cough. Maintaining O2 saturations in the 90s on 2 L/min per nasal cannula. Sputum culture revealing presumptive Staph aureus. Blood culture pending. White count 12.3. Hemoglobin 9.0. Platelets 182. Sodium 133. Potassium 4.7. Bicarb 24. BUN 24. Creatinine 0.66. Glucose 122. Viral screen is negative. Urine Legionella screen negative. He is continued on DuoNeb inhalations, Symbicort, Solu-Medrol. Antibiotics in the form of Zosyn. Anticoagulated with Eliquis. The patient is seen today January 23, 2024 in follow-up on the regular medical floor. He is awake and alert in no acute distress. Feeling a bit better today compared to yesterday. Continue with radiation treatments. He remains on DuoNeb inhalations, Symbicort, Solu-Medrol. Antibiotics in the form of Zosyn. Anticoagulated with Eliquis. No new labs today. The patient is seen today January 24, 2024 in follow-up on the regular medical floor. He is currently sitting up at the bedside. Awake and alert in no acute distress. Continues with a productive cough. Maintaining good O2 saturations in the 90s on room air. He is afebrile. Hemodynamically stable. Sputum culture positive for methicillin sensitive Staphylococcus aureus. He is continued on Zosyn. Remains on DuoNeb inhalations, Symbicort, Solu-Medrol. Anticoagulated with Eliquis. Plan is for bronchoscopy today. Objective - Vital Signs Vital signs: Vital Signs Temp 98.6 F 01/24/24 08:03 Pulse 92 01/24/24 08:46 Resp 16 01/24/24 08:03 BP 143/81 01/24/24 08:03 Pulse Ox 94 L 01/24/24 08:37 FiO2 Intake & Output 01/23/24 01/24/24 01/24/24 18:59 06:59 18:59 Intake Total 540 200 Output Total 325 Balance 215 200 Weight 63.503 kg Intake: IV 200 Oral 540 Output: Urine 325 Other: Voiding Method Toilet Toilet Toilet Urinal Urinal # Voids 3 4 # Bowel Movements 1 - Exam GENERAL EXAM: Alert, 63-year-old male, sitting up in bed, on 2 L/min per nasal cannula, in no apparent distress. HEAD: Normocephalic. EYES: Normal reaction of pupils, equal size. NOSE: Clear with pink turbinates. THROAT: No erythema or exudates. NECK: No masses, no JVD. CHEST: No chest wall deformity. LUNGS: Equal air entry with bilateral scattered rhonchi. CVS: S1 and S2 normal with no audible murmur, regular rhythm. ABDOMEN: No hepatosplenomegaly, normal bowel sounds, no guarding or rigidity. SPINE: No scoliosis or deformity SKIN: No rashes CENTRAL NERVOUS SYSTEM: No focal deficits, tone is normal in all 4 extremities. EXTREMITIES: There is no peripheral edema. No clubbing, no cyanosis. Peripheral pulses are intact. - Labs CBC & Chem 7: 01/22/24 06:36 01/22/24 06:36 Labs: Microbiology - Last 24 Hours (Table) 01/20/24 16:08 Blood Culture - Preliminary Blood 01/21/24 00:25 Gram Stain - Final Sputum Sputum Culture - Final Staphylococcus aureus Assessment and Plan Assessment: Acute exacerbation of chronic obstructive pulmonary disease, chest x-ray showing similar central lung markings suspicious for disease progression. Viral screen negative, procalcitonin negative. Sputum culture revealing methicillin sensitive Staphylococcus aureus Metastatic squamous cell carcinoma of the lung initially diagnosed in 2020, likely with disease progression, has recently been treated with chemotherapy and radiation however the patient has had multiple readmissions to the hospital causing pauses in treatment Acute on chronic shortness of breath, secondary to a combination of above Chronic anemia History of hypertension History of hyperlipidemia History of coronary artery disease with previous PCI/stent History of ischemic cardiomyopathy, echocardiogram from 08/27/2022 estimates an impaired left ventricular systolic ejection fraction of 35% Chronic ongoing tobacco dependence, patient restarted smoking History of ocular herpes History of paroxysmal atrial fibrillation, anticoagulated on Eliquis Plan: The patient was seen and evaluated Medications reviewed Continue the current treatment plan Bronchoscopy today We will continue to follow I have personally seen and examined the patient, performed the documentation and the assessment and plan as written. Number of minutes spent on the visit: 10 Dictation was produced using [employer] dictation software. Please excuse any grammatical, word or spelling errors.
--- NOTE | 2024-01-24 20:20 | PCN ---
PROCEDURE NOTE PROCEDURES: Bronchoscopy, airway examination, therapeutic lavage, BAL, right upper lobe, tracheal teresa and brushes, right upper lobe. PREOPERATIVE DIAGNOSES: Lung cancer, pneumonia. POSTOPERATIVE DIAGNOSIS: Lung cancer, pneumonia. QUALITY CONTROL CHEMIST: Dr. Braga. FIRST LATH TIER: Francisca Don. The patient's procedure took place in room #2 [facility]. There was informed consent and universal timeout. ANESTHESIA PROVIDED: Monitored anesthesia care. DESCRIPTION OF PROCEDURE: After the patient was adequately sedated, the bronchoscope was inserted through the right nostril. It passed through the right nasopharynx into the oropharynx. The hypopharynx was identified. The hypopharyngeal structures, including anterior commissure, true cords, false cords, arytenoids, piriform sinuses, right and left, and epiglottis, were normal. The glottic opening was topicalized. The bronchoscope was pushed through the glottic opening into the trachea. The trachea appeared relatively normal. Tracheal teresa was distinctly abnormal with significant mucosal abnormality noted primarily on the right side of the tracheal teresa, but also on the left side as well. The mucosa seemed to be infiltrated with malignancy. That area eventually will be brushed. Next, the bronchoscope was pushed through the right side into the right upper lobe, which also was distinctly abnormal with mucosal irregularity, and infiltrative changes. The mucosa was quite erythematous and hyperemic. It bled easily. There was mucosal friability. No distinct lesion. The right middle lobe and right lower lobe appeared relatively normal. On the left side, after topicalization with lidocaine, the distal left lower lobe looked distinctly abnormal with mucosal irregularity, and infiltrate changes. No distinct mass or tumor. There were some secretions and they were suctioned without difficulty. Next, the brushes were performed of the tracheal teresa, particularly on the right side of the tracheal teresa. Subsequent to that, we did brushes in the right upper lobe, and we did a BAL in the right upper lobe. All specimens will be taken to the laboratory for analysis. The patient does have a previous diagnosis of lung cancer. Secretions were suctioned without difficulty. There was no dominant mass or tumor. There was no significant hemorrhaging or bleeding. The patient tolerated the procedure well. He will be recovered. MMODL / IJN: [id number] /
[2024-01-25 08:53] VITALS: BP 152/91; RESP 16; TEMP 97.5
[2024-01-25 09:12] VITALS: PULSE 80
--- NOTE | 2024-01-25 11:49 | P.PN ---
Subjective Progress Note Date: 01/25/24 Patient is a 63-year-old male with PMH of lung CA with history of lung abscess, COPD with intermittent home O2, CAD with stents, history of SVT, and hyperlipidemia presents to the ED for persistent cough. Symptoms ongoing for the past month. Occasionally coughs green sputum, other times clear. Sputum is thick, now unable to cough up anything. PCP prescribed Prednisone and Levaquin which did not improve symptoms. No fever or chills. No chest pain. Denies headache, lower extremity edema, nausea or vomiting, palpitations, changes in urination or bowel habits. Underwent bronchoscopy with Dr. Braga on 12/15, culture grew respiratory jennifer. In the ED he underwent extensive evaluation. BP 106/67, HR 96, T 97.9F, RR 26, 100% on RA. CBC, Coag panel, CMP significant for RBC 3.53, Hg 9.9, Hct 33.2, APTT 32.9, Na 135, bicarb 21, BUN 24, glu 149, AST 16. Lactic acid 2.5. Mag 2.0. EKG sinus rhythm with no ST T wave changes. CXR shows redemonstration of the mass in the right apical and left perihilum. Pat ient is admitted for further workup and management. Started on bronchodilators and Solumedrol along with Zosyn with Pulmonary consulted. 01/21 Patient was seen and examined. Continues to cough up sputum. CBC and BMP significant WBC 12.3, RBC 3.22, Hg 9, Hct 30.8, Na 133, BUN 24, glu 122. Legionella neg. BCx neg so far. Sputum Cx many PMN, few G+C, rare G+B. 01/22. Patient seen and examined at bedside. No new labs today. Continues to endorse mild exertional dyspnea and sputum production. Patient scheduled to undergo inpatient radiotherapy for his lung CA. 01/23 Patient was seen and examined. Continues to cough up sputum. Sputum Cx + staph aureus. 01/24. Patient seen and examined lying in bed. No acute events overnight. Patient states he has had increasing dyspnea. Labs today pending. Day 5 of Zosyn. Pertinent positives and negatives discussed above, a complete review of systems was performed and all the other systems were negative. Physical examination: Vital signs reviewed General: Nontoxic, no distress, appears stated age, well-appearing Derm: Warm, dry, intact Head: Atraumatic, normocephalic, symmetric Eyes: EOMI, anicteric sclera Mouth: No lip lesion, mucus membranes moist Cardiovascular: S1-S2 regular, no murmur Lungs: Bilateral rhonchi, no rales, no accessory muscle use Abdominal: Soft, non-tender to palpation Extremities: No cyanosis, clubbing, or pedal edema. Neuro: Alert, oriented x 3, gross neurological examination did not reveal any focal deficits. Cranial nerves II to XII grossly intact. Psych: Appropriate affect and mood Assessment and Plan: 63-year-old male with PMH of lung CA with history of lung abscess, COPD with intermittent home O2, CAD with stents, history of SVT, and hyperlipidemia admitted for acute on chronic dyspnea. Active #. Acute on chronic dyspnea, multifactorial; likely acute COPD exacerbation, possible post-obstructive pneumonia, versus radiation pneumonitis Solu-Medrol 60 mg IV every 6 hours DuoNeb 4 times daily scheduled and as needed for shortness of breath Mucinex 1200 mg p.o. twice daily Discussed with pulmonology, significant inflammatory changes within the airways, okay to be discharged on oral antibiotics and oral steroids. Sputum culture growing Staph aureus, Pro-Giancarlo negative Status post BAL on 01/23, cultures and cytology pending #. SIRS, possible sepsis in the setting of possible postobstructive pneumonia Continue Zosyn 3.75 g IV 3 times daily, day 5 Legionella negative Blood culture negative so far Normal saline at 75 cc/h Telemetry monitoring Monitor CBC -Given concern for postobstructive pneumonia, will treat with longer duration with antibiotics, 1 week of oral Augmentin. Resolved #. Lactic acidosis Chronic #. Normocytic anemia History of underlying malignancy At baseline No signs of active bleeding #. History of SVT Amiodarone 200 mg PO daily Eliquis 5 mg PO twice daily -Unclear if patient has history of atrial fibrillation #. Hyperlipidemia Lipitor 80 mg PO nightly #. Metastatic SCC of the lung Oncology and rad-onc following F: No restriction E: Replete if needed N: Heart healthy diet A: Ambulatory DVT prophylaxis: Eliquis PO GI prophylaxis: Protonix PO Code status: Anticipated discharge place: Home I have seen and evaluated the patient today. Discussed with the resident and agree with the residents finding and plan as documented in the resident's note. Changes highlighted in blue font. Objective - Vital Signs Vital signs: Vital Signs Temp 98.0 F 01/25/24 01:25 Pulse 89 01/25/24 01:25 Resp 18 01/25/24 01:25 BP 123/77 01/25/24 01:25 Pulse Ox 98 01/25/24 01:25 FiO2 Intake & Output 01/24/24 01/25/24 01/25/24 18:59 06:59 18:59 Intake Total 200 Balance 200 Weight 63.503 kg Intake: IV 200 Other: Voiding Method Toilet Toilet # Voids 3 - Labs CBC & Chem 7: 01/22/24 06:36 01/22/24 06:36
--- NOTE | 2024-01-25 14:33 | P.PN ---
Subjective Progress Note Date: 01/25/24 S/p bronch, tolerated well. No dominant mass or tumor noted. Cytology pending. Continues on zosyn, afebrile, SPO2 high 90s on 2L. Reporting improvement in breathing, experiencing persistent cough Objective - Vital Signs Vital signs: Vital Signs Temp 97.5 F L 01/25/24 07:35 Pulse 80 01/25/24 09:11 Resp 16 01/25/24 07:35 BP 152/91 01/25/24 07:35 Pulse Ox 98 01/25/24 09:01 FiO2 Intake & Output 01/24/24 01/25/24 01/25/24 18:59 06:59 18:59 Intake Total 200 Balance 200 Weight 63.503 kg Intake: IV 200 Other: Voiding Method Toilet Toilet # Voids 3 - Constitutional General appearance: Present: average body habitus, no acute distress - EENT Eyes: Present: anicteric sclerae, EOMI ENT: Present: hearing grossly normal - Respiratory Details: course throughout - Cardiovascular Details: skin warm and dry - Integumentary Integumentary: Absent: cyanotic, jaundiced - Musculoskeletal Musculoskeletal: Present: strength equal bilaterally - Psychiatric Psychiatric: Present: A&O x's 3 - Labs CBC & Chem 7: 01/22/24 06:36 01/22/24 06:36 Assessment and Plan (1) Acute exacerbation of chronic obstructive pulmonary disease Current Visit: Yes Status: Acute Priority: High Code(s): J44.1 - CHRONIC OBSTRUCTIVE PULMONARY DISEASE W (ACUTE) EXACERBATION SNOMED Code(s): 875142878 (2) Squamous cell lung cancer Current Visit: Yes Status: Chronic Priority: High Code(s): C34.90 - MALIGNANT NEOPLASM OF UNSP PART OF UNSP BRONCHUS OR LUNG SNOMED Code(s): 298706273 Plan: Acute COPD exacerbation: The patient has been having ongoing issues with episodes of acute on chronic respiratory failure, due to postobstructive pneumonia, related especially to the right lung mass. He had an admission for the same about 5 weeks ago. He has continued to have symptoms post discharge, although these were initially improved. He required another course of steroids and antibiotics, because of worsening, with partial improvement and then fairly rapid worsening again on completion of his treatment. In the interim he has started radiation with palliative intent to try to improve obstructive symptoms. - In this admission, chest x-ray does not show any definite change compared to before. Therefore this presentation appears to be due to exacerbation of COPD, based on imaging, as well as physical exam. the patient is being managed with breathing treatments, IV steroids and IV antibiotics. Although the x-ray looks unchanged, some component of recurrent post obstructive infection cannot be totally ruled out. -S/p bronch, no dominant mass or tumor or significant bleeding but did note mucosal friability. Secretions noted within airway, consistent with pneumonia. Cytology/fluid analysis pending. Sanjay Lassiter -Defer management to the admitting service and pulmonary medicine for ongoing treatment Squamous cell lung cancer: Diagnostic and therapeutic circumstances as described. Continues with RT inpt. Hopefully this will reduce the incidence of postoperative infection causing multiple episodes of acute on chronic respiratory failure, and also delaying his systemic therapy. After completion of radiation, the plan is to resume systemic therapy with a different regimen. 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 Hemoglobin is currently adequate. Continue to monitor. Transfuse to keep greater than 7
[2024-01-25 14:35] LABS: Anisocytosis Moderate; Basophils % (A) 0 %; Eosinophils % (A) 0 %; HCT 37.3 % (39.0-53.0); HGB 11.1 gm/dL (13.0-17.5); Hypochromasia Marked; Lymphocytes # (A) 0.1 k/uL (1.0-4.8); Lymphocytes % (A) 1 %; MCH 28.9 pg (25.0-35.0); MCHC 29.8 g/dL (31.0-37.0); MCV 96.9 fL (80.0-100.0); Macrocytosis Moderate; Mean Platelet Volume 8.2; Monocytes # (A) 0.3 k/uL (0-1.0); Monocytes % (A) 2 %; Neutrophils # (A) 14.7 k/uL (1.3-7.7); Neutrophils % (A) 97 %; Platelet Count 180 k/uL (150-450); RBC 3.85 m/uL (4.30-5.90); RDW 22.2 % (11.5-15.5); WBC 15.1 k/uL (3.8-10.6)
[2024-01-25 14:58] LABS: African American GFR (CKD) >90 (>60 ml/min/1.73 sqM); Anion Gap 11 mmol/L; Blood Urea Nitrogen 32 mg/dL (9-20); Calcium 9.6 mg/dL (8.4-10.2); Carbon Dioxide 23 mmol/L (22-30); Chloride 101 mmol/L (98-107); Glucose 120 mg/dL (74-99); Non-African American GFR(CKD) >90 (>60 ml/min/1.73 sqM); Potassium 4.1 mmol/L (3.5-5.1); Sodium 135 mmol/L (137-145)
--- NOTE | 2024-01-25 15:10 | P.PN ---
Subjective Progress Note Date: 01/25/24 This is a pleasant 63-year-old male patient with a known history of COPD, previous tobacco dependence, hypertension, hyperlipidemia, coronary artery disease with previous PCI/stent, ischemic cardiomyopathy, and atrial fibrillation anticoagulated on Eliquis. He was recently here and had a another bronchoscopy on December 16, 2023 with washings negative for malignancy. He does have lung cancer original diagnosed 2020. Currently receiving chemotherapy and radiation treatments however he has been hospitalized frequently causing pauses in his treatments. He presented here again yesterday 01/20/2024 with complaints of increasing shortness of breath, cough and congestion. Chest x-ray reveals redemonstration of the right apical and left perihilar masses. No evidence of pleural effusion, focal consolidation or pneumothorax. No change compared to previous of 12/15/2023. Previous sputum culture from December 14, 2023 was positive for MSSA. He has dad multiple rounds of antibiotics over the past se veral months. Platelets 182. Sodium 135. Potassium 4.0. Bicarb 21. BUN 24. Creatinine 0.72. Glucose 149. Viral screen is negative. Procalcitonin pending. He is seen today in consultation on the regular medical floor. He is currently sitting up in bed. Awake and alert in no acute distress. Maintaining O2 saturations in the 90s on room air. He is afebrile. Hemodynamically stable. The patient is seen today January 22, 2024 in follow-up on the regular medical floor. He is currently sitting up at the bedside. Awake and alert in no acute distress. He continues with some shortness of breath, loose congested cough. Maintaining O2 saturations in the 90s on 2 L/min per nasal cannula. Sputum culture revealing presumptive Staph aureus. Blood culture pending. White count 12.3. Hemoglobin 9.0. Platelets 182. Sodium 133. Potassium 4.7. Bicarb 24. BUN 24. Creatinine 0.66. Glucose 122. Viral screen is negative. Urine Legionella screen negative. He is continued on DuoNeb inhalations, Symbicort, Solu-Medrol. Antibiotics in the form of Zosyn. Anticoagulated with Eliquis. The patient is seen today January 23, 2024 in follow-up on the regular medical floor. He is awake and alert in no acute distress. Feeling a bit better today compared to yesterday. Continue with radiation treatments. He remains on DuoNeb inhalations, Symbicort, Solu-Medrol. Antibiotics in the form of Zosyn. Anticoagulated with Eliquis. No new labs today. The patient is seen today January 24, 2024 in follow-up on the regular medical floor. He is currently sitting up at the bedside. Awake and alert in no acute distress. Continues with a productive cough. Maintaining good O2 saturations in the 90s on room air. He is afebrile. Hemodynamically stable. Sputum culture positive for methicillin sensitive Staphylococcus aureus. He is continued on Zosyn. Remains on DuoNeb inhalations, Symbicort, Solu-Medrol. Anticoagulated with Eliquis. Plan is for bronchoscopy today. The patient is seen today January 25, 2024 in follow-up on the regular medical floor. He is currently resting comfortably in bed. Awake and alert in no acute distress. He is maintaining good O2 saturations in the 90s on room air. No fever or chills. He did undergo bronchoscopy yesterday. Cultures are pending. White count 15.1. Hemoglobin 11.1. Platelets 180. Sodium 135. Potassium 4.1. Bicarb 23. BUN 32. Creatinine 0.73. Procalcitonin was negative. Is continued on DuoNeb and elations, Symbicort, Solu-Medrol. Antibiotics in the form of Zosyn. Anticoagulated with Eliquis. Mucinex and Tessalon Perles for his congestion. Objective - Vital Signs Vital signs: Vital Signs Temp 97.5 F L 01/25/24 07:35 Pulse 80 01/25/24 09:11 Resp 16 01/25/24 07:35 BP 152/91 01/25/24 07:35 Pulse Ox 98 01/25/24 09:01 FiO2 Intake & Output 01/24/24 01/25/24 01/25/24 18:59 06:59 18:59 Intake Total 200 Balance 200 Weight 63.503 kg Intake: IV 200 Other: Voiding Method Toilet Toilet # Voids 3 - Exam GENERAL EXAM: Alert, 63-year-old male, on room air, in no apparent distress. HEAD: Normocephalic. EYES: Normal reaction of pupils, equal size. NOSE: Clear with pink turbinates. THROAT: No erythema or exudates. NECK: No masses, no JVD. CHEST: No chest wall deformity. LUNGS: Equal air entry with bilateral scattered rhonchi. CVS: S1 and S2 normal with no audible murmur, regular rhythm. ABDOMEN: No hepatosplenomegaly, normal bowel sounds, no guarding or rigidity. SPINE: No scoliosis or deformity SKIN: No rashes CENTRAL NERVOUS SYSTEM: No focal deficits, tone is normal in all 4 extremities. EXTREMITIES: There is no peripheral edema. No clubbing, no cyanosis. Peripheral pulses are intact. - Labs CBC & Chem 7: 01/25/24 13:59 01/25/24 13:59 Labs: Abnormal Lab Results - Last 24 Hours (Table) 01/25/24 01/25/24 Range/Units 13:59 13:59 WBC 15.1 H (3.8-10.6) k/uL RBC 3.85 L (4.30-5.90) m/uL Hgb 11.1 L (13.0-17.5) gm/dL Hct 37.3 L (39.0-53.0) % MCHC 29.8 L (31.0-37.0) g/dL RDW 22.2 H (11.5-15.5) % Neutrophils # 14.7 H (1.3-7.7) k/uL Lymphocytes # 0.1 L (1.0-4.8) k/uL Sodium 135 L (137-145) mmol/L BUN 32 H (9-20) mg/dL Glucose 120 H (74-99) mg/dL Assessment and Plan Assessment: Acute exacerbation of chronic obstructive pulmonary disease, chest x-ray showing similar central lung markings suspicious for disease progression. Viral screen negative, procalcitonin negative. Sputum culture revealing methicillin sensitive Staphylococcus aureus. Bronchoscopy with BAL and brushings performed on 01/24/2024. Cultures and cytology pending Metastatic squamous cell carcinoma of the lung initially diagnosed in 2020, likely with disease progression, has recently been treated with chemotherapy and radiation however the patient has had multiple readmissions to the hospital causing pauses in treatment Acute on chronic shortness of breath, secondary to a combination of above Chronic anemia History of hypertension History of hyperlipidemia History of coronary artery disease with previous PCI/stent History of ischemic cardiomyopathy, echocardiogram from 08/27/2022 estimates an impaired left ventricular systolic ejection fraction of 35% Chronic ongoing tobacco dependence, patient restarted smoking History of ocular herpes History of paroxysmal atrial fibrillation, anticoagulated on Eliquis Plan: The patient was seen and evaluated Medications reviewed Transition to oral steroids Bronchoscopy performed yesterday Cultures and cytology pending Cleared for discharge from the pulmonary standpoint Follow-up in our office in 1 week I have personally seen and examined the patient, performed the documentation and the assessment and plan as written. Number of minutes spent on the visit: 10 Dictation was produced using [employer] dictation software. Please excuse any grammatical, word or spelling errors.
--- NOTE | 2024-01-25 16:30 | P.DS ---
Providers Date of admission: 01/20/24 17:23 Expected date of discharge: 01/25/24 Attending physician: Jerome Sow MD Consults: 01/20/24 17:22 Consult Physician Routine Consulting Provider: Caroline Dolan Consult Reason/Comments: Lung CA Do you want consulting provider notified?: Yes Consult Physician Routine Consulting Provider: Darius Shearer Consult Reason/Comments: lung CA Do you want consulting provider notified?: Yes 01/20/24 17:24 Consult Physician Routine Consulting Provider: Truman Kumar Consult Reason/Comments: COPD, Lung CA Do you want consulting provider notified?: Yes Primary care physician: Eduardo Parsons MD Hospital Course: Hospital Course: Patient is a 63-year-old male with PMH of lung CA with history of lung abscess, COPD with intermittent home O2, CAD with stents, history of SVT, and hyperlipidemia presents to the ED for persistent cough. Symptoms ongoing for the past month. Occasionally coughs green sputum, other times clear. Sputum is thick, now unable to cough up anything. PCP prescribed prednisone and Levaquin which did not improve symptoms. No fever or chills. No chest pain. Denies headache, lower extremity edema, nausea or vomiting, palpitations, changes in urination or bowel habits. Underwent bronchoscopy with Dr. Braga on 12/15, culture grew respiratory jennifer. In the ED he underwent extensive evaluation. BP 106/67, HR 96, T 97.9F, RR 26, 100% on RA. CBC, Coag panel, CMP significant for RBC 3.53, Hg 9.9, Hct 33.2, APTT 32.9, Na 135, bicarb 21, BUN 24, glu 149, AST 16. Lactic acid 2.5. Mag 2.0. EKG sinus rhythm with no ST T wave changes. CXR shows redemonstration of the mass in the right apical and left perihilum. Patient is admitted for further workup and management. Started on bronchodilators and Solumedrol along with Zosyn for methicillin sensitive Staph aureus positive sputum culture. Pulmonology consulted. Patient received inpatient radiotherapy for his lung CA on 01/22. He underwent bronchoscopy with BAL on 01/23, cultures and cytology pending. Bronchoscopy did show inflamed airways. Remains on room air. After discussion with pulmonology, patient is medically stable for discharge on 1 week of oral Augmentin and oral steroids. Given concern for postobstructive pneumonia, will need longer antibiotic therapy compared to standard community- acquired pneumonia Treatment. Final Diagnosis: #. Acute on chronic dyspnea, multifactorial; likely acute COPD exacerbation, possible postobstructive pneumonia, versus radiation pneumonitis. #. SIRS, possible sepsis in the setting of possible postobstructive pneumonia. #. Lactic acidosis. Resolved. #. Normocytic anemia. #. History of SVT. #. Hyperlipidemia. #. Metastatic SCC of the lung. Physical examination: Vital signs reviewed General: Nontoxic, no distress, appears stated age, well-appearing Derm: Warm, dry, intact Head: Atraumatic, normocephalic, symmetric Eyes: EOMI, anicteric sclera Mouth: No lip lesion, mucus membranes moist Cardiovascular: S1-S2 regular, no murmur Lungs: Bilateral rhonchi, no rales, no accessory muscle use Abdominal: Soft, non-tender to palpation Extremities: No cyanosis, clubbing, or pedal edema. Neuro: Alert, oriented x 3, gross neurological examination did not reveal any focal deficits. Cranial nerves II to XII grossly intact. A total of 36 minutes of time were spent preparing this complex discharge summary. Patient was discharged on 01/25/2024 at 1325. I have seen and evaluated the patient today. Discussed with the resident and agree with the residents finding and plan as documented in the resident's note. Changes highlighted in blue font. Patient Condition at Discharge: Stable Plan - Discharge Summary Discharge Rx Participant: Yes New Discharge Prescriptions: New Amoxic-Pot Clav 875-125Mg [Augmentin 875-125] 1 tab PO Q12HR 7 Days #14 tab guaiFENesin [Mucinex] 1,200 mg PO Q12HR PRN #60 tab PRN Reason: Cough Budesonide-Formot 160-4.5 Mcg [Symbicort 160-4.5 Mcg Inhaler] 2 puff INHALATION RT-BID #1 each Continue Spiriva Respimat 1.25mcg/Actuation Mist 2 puff INHALATION RT-HS #0 Omeprazole [PriLOSEC] 40 mg PO DAILY PRN PRN Reason: GERD Cholecalciferol [Vitamin D3 (25 Mcg = 1000 Iu)] 50 mcg PO DAILY Metoprolol Tartrate [Lopressor] 12.5 mg PO BID PRN PRN Reason: HIGH BP Atorvastatin [Lipitor] 80 mg PO HS Hydrocodone/Acetaminophen [Hydrocodone/Acetaminophen 10-300 mg] 1 tab PO QID Amiodarone [Cordarone] 200 mg PO DAILY #30 tab Apixaban [Eliquis] 5 mg PO BID 30 Days #60 tab Albuterol Inhaler [Ventolin Hfa Inhaler] 2 puff INHALATION RT-QID PRN PRN Reason: Shortness Of Breath Discharge Medication List Atorvastatin [Lipitor] 80 mg PO HS 03/04/21 [History] Spiriva Respimat 1.25mcg/Actuation Mist 2 puff INHALATION RT-HS #0 09/01/22 [Rx] Hydrocodone/Acetaminophen [Hydrocodone/Acetaminophen 10-300 mg] 1 tab PO QID 06/06/23 [History] Amiodarone [Cordarone] 200 mg PO DAILY #30 tab 09/11/23 [Rx] Apixaban [Eliquis] 5 mg PO BID 30 Days #60 tab 09/11/23 [Rx] Cholecalciferol [Vitamin D3 (25 Mcg = 1000 Iu)] 50 mcg PO DAILY 12/14/23 [History] Omeprazole [PriLOSEC] 40 mg PO DAILY PRN 12/14/23 [History] Albuterol Inhaler [Ventolin Hfa Inhaler] 2 puff INHALATION RT-QID PRN 01/20/24 [History] Metoprolol Tartrate [Lopressor] 12.5 mg PO BID PRN 01/20/24 [History] Amoxic-Pot Clav 875-125Mg [Augmentin 875-125] 1 tab PO Q12HR 7 Days #14 tab 01/25/24 [Rx] Budesonide-Formot 160-4.5 Mcg [Symbicort 160-4.5 Mcg Inhaler] 2 puff INHALATION RT-BID #1 each 01/25/24 [Rx] guaiFENesin [Mucinex] 1,200 mg PO Q12HR PRN #60 tab 01/25/24 [Rx] Follow up Appointment(s)/Referral(s): Eduardo Parsons MD [Primary Care Provider] - 1-2 days Anastacio Braga DO [Doctor of Osteopathic Medicine] - 1 Week Patient Instructions/Handouts: COPD (Chronic Obstructive Pulmonary Disease) (DC), Bacterial Pneumonia (DC) Activity/Diet/Wound Care/Special Instructions: Please see your PCP and pulmonology. Discharge Disposition: HOME SELF-CARE
[2024-01-26 05:17] LABS: Appearance,BF Bloody (Clear); RBC, Body Fluid 238000 /UL (0-2000)
[2024-01-26 09:53] LABS: Nucleated Cells, Body Fluid 1000 /UL
== END 2024-01-25 16:28 | disposition home or self-care (01) | DRG 720 ==
LOC: EC 15:04 → 5NMEDONC 17:22 → OBSVTOIN 17:23 → 4SSUR 20:53
PROVIDERS: ADMIT Family Medicine; ATTEND Family Medicine
PROC: 0B9C8ZZ Drainage of Right Upper Lung Lobe, Via Natural or Artificial Opening Endoscopic (ICD-10-PCS; principal; 2024-01-24 13:35)
PROC: DB0 Radiation Therapy, Respiratory System, Beam Radiation (ICD-10-PCS; 2024-01-25)
DX: A41.9 Sepsis, unspecified organism (principal); J18.8 Other pneumonia, unspecified organism; J96.20 Acute and chronic respiratory failure, unspecified whether with hypoxia or hypercapnia; F17.210 Nicotine dependence, cigarettes, uncomplicated; E78.5 Hyperlipidemia, unspecified; E87.20 Acidosis, unspecified; C34.02 Malignant neoplasm of left main bronchus; C34.01 Malignant neoplasm of right main bronchus; C79.9 Secondary malignant neoplasm of unspecified site; J44.1 Chronic obstructive pulmonary disease with (acute) exacerbation; J44.0 Chronic obstructive pulmonary disease with (acute) lower respiratory infection; R64 Cachexia; I11.0 Hypertensive heart disease with heart failure; I47.10 Supraventricular tachycardia, unspecified; R65.20 Severe sepsis without septic shock; I25.10 Atherosclerotic heart disease of native coronary artery without angina pectoris; Z99.81 Dependence on supplemental oxygen; I25.2 Old myocardial infarction; I25.5 Ischemic cardiomyopathy; I48.0 Paroxysmal atrial fibrillation; I50.9 Heart failure, unspecified; Z68.1 Body mass index [BMI] 19.9 or less, adult; D64.9 Anemia, unspecified; T38.0X5A Adverse effect of glucocorticoids and synthetic analogues, initial encounter; D72.829 Elevated white blood cell count, unspecified; Z51.5 Encounter for palliative care; Z79.01 Long term (current) use of anticoagulants; Z79.899 Other long term (current) drug therapy; Z87.01 Personal history of pneumonia (recurrent); Z92.21 Personal history of antineoplastic chemotherapy; Z92.3 Personal history of irradiation; Z95.5 Presence of coronary angioplasty implant and graft; Z28.310 Unvaccinated for COVID-19; Z28.21 Immunization not carried out because of patient refusal; Z86.14 Personal history of Methicillin resistant Staphylococcus aureus infection
CPT/HCPCS: 31623; 31624; 36415; 71046; 77336; 77386; 80048; 80053; 83605; 83735; 84145; 85025; 85027; 85610; 85730; 87040; 87070; 87077; 87102; 87116; 87186; 87205; 87206; 87449; 87496; 87498; 87502; 87529; 87634; 87635; 87636; 87798; 88104; 88108; 88305; 89050; 93005; 94640; 94760; 96361; 96365; 96375; 99285

== ENCOUNTER 2024-01-27 09:45 | Observation (INO) | payer OTHER ==
--- NOTE | 2024-01-27 10:54 | ED ---
General Adult HPI - General Chief complaint: Chest Pain Stated complaint: Chest Pain Time Seen by Provider: 01/27/24 10:09 Source: patient, family, RN notes reviewed, old records reviewed Mode of arrival: wheelchair Limitations: no limitations - History of Present Illness Initial comments: 63-year-old male presenting for evaluation of cough and dyspnea. Patient states he was discharged yesterday and states he had a bronchoscopy anf He was diagnosed with staph infection according to the patient. He is having some chest pain worse with cough. He is having orthopnea. He does state he has diagnosis of cancer of the lung as well. He denies fever. Denies lower extremity pain or swelling. - Related Data Home Medications Medication Instructions Recorded Confirmed Atorvastatin [Lipitor] 80 mg PO HS 03/04/21 01/27/24 Hydrocodone/Acetaminophen 1 tab PO QID 06/06/23 01/27/24 [Hydrocodone/Acetaminophen 10-300 mg] Cholecalciferol [Vitamin D3 (25 50 mcg PO DAILY 12/14/23 01/27/24 Mcg = 1000 Iu)] Omeprazole [PriLOSEC] 40 mg PO DAILY PRN 12/14/23 01/27/24 Albuterol Inhaler [Ventolin Hfa 2 puff INHALATION RT-QID PRN 01/20/24 01/27/24 Inhaler] Metoprolol Tartrate [Lopressor] 12.5 mg PO BID PRN 01/20/24 01/27/24 Previous Rx's Medication Instructions Recorded Spiriva Respimat 1.25mcg/Actuation 2 puff INHALATION RT-HS #0 09/01/22 Mist Amiodarone [Cordarone] 200 mg PO DAILY #30 tab 09/11/23 Apixaban [Eliquis] 5 mg PO BID 30 Days #60 tab 09/11/23 Amoxic-Pot Clav 875-125Mg 1 tab PO Q12HR 7 Days #14 tab 01/25/24 [Augmentin 875-125] Budesonide-Formot 160-4.5 Mcg 2 puff INHALATION RT-BID #1 each 01/25/24 [Symbicort 160-4.5 Mcg Inhaler] guaiFENesin [Mucinex] 1,200 mg PO Q12HR PRN #60 tab 01/25/24 Allergies Allergy/AdvReac Type Severity Reaction Status Date / Time Penicillins Allergy Dyspnea & Verified 01/27/24 11:49 Hives all over Review of Systems ROS Statement: Those systems with pertinent positive or pertinent negative responses have been documented in the HPI. ROS Other: All systems not noted in ROS Statement are negative. Past Medical History Past Medical History: Atrial Fibrillation, Coronary Artery Disease (CAD), Cancer, Chest Pain / Angina, COPD, Hyperlipidemia, Hypertension, Myocardial Infarction ([place]) Additional Past Medical History / Comment(s): SVT with chest pain/palpitations- chemically converted(2023), lung cancer with chemo and radiation Last Myocardial Infarction Date:: 2017 History of Any Multi-Drug Resistant Organisms: MRSA Date of last positivie culture/infection: 12/23/2013 MDRO Source:: Face Past Surgical History: Heart Catheterization With Stent Additional Past Surgical History / Comment(s): I&D of Right inframandibular abscess. 3 cardiac stents, bronchoscopy for abscess Past Anesthesia/Blood Transfusion Reactions: No Reported Reaction Additional Past Anesthesia/Blood Transfusion Reaction / Comment(s): platelet transfusions with no reaction r/t chemo Date of Last Stent Placement:: 2017 Past Psychological History: No Psychological Hx Reported Smoking Status: Current some day smoker Past Alcohol Use History: None Reported Past Drug Use History: None Reported - Past Family History Father Family Medical History: No Reported History Additional Family Medical History / Comment(s): Father of "natural causes" at the age of 79yrs. Mother Family Medical History: COPD, Coronary Artery Disease (CAD) Additional Family Medical History / Comment(s): Mother is 76yrs old. She has had several MIs, 6 cardiac stents and a 4 vessel CABG. General Exam Limitations: no limitations General appearance: alert, in distress Head exam: Present: atraumatic, normocephalic Eye exam: Present: normal appearance, PERRL ENT exam: Present: mucous membranes dry Neck exam: Present: normal inspection. Absent: tenderness, meningismus Respiratory exam: Present: wheezes, rhonchi, decreased breath sounds. Absent: respiratory distress Cardiovascular Exam: Present: normal rhythm, tachycardia GI/Abdominal exam: Present: soft. Absent: distended, tenderness Extremities exam: Present: normal inspection, normal capillary refill. Absent: pedal edema Neurological exam: Present: alert, oriented X3 Psychiatric exam: Present: anxious Skin exam: Present: warm, pallor Course Vital Signs 01/27/24 01/27/24 09:49 10:34 Temperature 98.3 F 98.2 F Pulse Rate 114 H 107 H Respiratory 24 26 H Rate Blood Pressure 122/74 116/70 O2 Sat by Pulse 98 99 Oximetry Medical Decision Making - Medical Decision Making Was pt. sent in by a medical professional or institution (GINGER Van, REBAR WORKER, urgent care, hospital, or longterm...) When possible be specific @ -No Did you speak to anyone other than the patient for history (EMS, parent, family, police, friend...)? What history was obtained from this source @ -No Did you review nursing and triage notes (agree or disagree)? Why? @ -I reviewed and agree with nursing and triage notes Were old charts reviewed (outside hosp., previous admission, EMS record, old EKG, old radiological studies, urgent care reports/EKG's, longterm records)? Report findings @ -No old charts were reviewed Differential Dyspnea: Coronary syndrome, arrhythmia, tamponade, asthma, COPD, pulmonary embolism, pneumonia, pneumothorax, pulmonary effusion, anaphylaxis, diabetic ketoacidosis, flailed chest, pulmonary contusion, diaphragmatic rupture, anemia, neuromuscular, this is not meant to be an all-inclusive list. EKG interpreted by me (3pts min.). @ -Sinus tachycardia with short OH rate of 110 OH interval 112, QRS duration 93, QTc [address] segment elevation. X-rays interpreted by me (1pt min.). @Chest x-ray no consolidated pneumonia, no pneumothorax CT interpreted by me (1pt min.). @ -None done U/S interpreted by me (1pt. min.). @ -None done What testing was considered but not performed or refused? (CT, X-rays, U/S, labs)? Why? @ -None What meds were considered but not given or refused? Why? @ -None Did you discuss the management of the patient with other professionals (professionals i.e. GINGER Van, REBAR WORKER, lab, RT, psych nurse, outreach and education social worker, personal finance instructor, teacher, driver license reviewing officer, case hardener)? Give summary @Dr. Leon will admit Was smoking cessation discussed for >3mins.? @ -No Was critical care preformed (if so, how long)? @ -yes, 35 minutes Were there social determinants of health that impacted care today? How? (Homelessness, low income, unemployed, alcoholism, drug addiction, transportation, low edu. Level, literacy, decrease access to med. care, care home, r ehab)? @ -No Was there de-escalation of care discussed even if they declined (Discuss DNR or withdrawal of care, Hospice)? DNR status @ -No What co-morbidities impacted this encounter? (DM, HTN, Smoking, COPD, CAD, Cancer, CVA, ARF, Chemo, Hep., AIDS, mental health diagnosis, sleep apnea, morbid obesity)? @ -[COPD, lung cancer Was patient admitted / discharged? Hospital course, mention meds given and route, prescriptions, significant lab abnormalities, going to OR and other pertinent info. @ -63-year-old male presenting for evaluation of increased dyspnea cough, recent staph pneumonia diagnosis. Patient is pale, cachectic, moderate respiratory distress. He is tachycardic. Given albuterol, Atrovent, IV steroids. Continued on vancomycin. Patient has a leukocytosis which is slightly increased from prior. Stable anemia. Negative troponin, negative viral panel Patient admitted for continued treatment of COPD and lung infection. Undiagnosed new problem with uncertain prognosis? @ -No Drug Therapy requiring intensive monitoring for toxicity (Heparin, Nitro, Insulin, Cardizem)? @ -No Were any procedures done? @ -No Diagnosis/symptom? @ -[COPD, staph pneumonia Acute, or Chronic, or Acute on Chronic? @ -Acute Uncomplicated (without systemic symptoms) or Complicated (systemic symptoms)? @ -[default Side effects of treatment? @ -No Exacerbation, Progression, or Severe Exacerbation? @ -No Poses a threat to life or bodily function? How? (Chest pain, [place], [place], pneumonia, PE, COPD, DKA, ARF, appy, cholecystitis, CVA, Diverticulitis, Homicidal, Suicidal, threat to staff... and all critical care pts) @ -Yes, sepsis, respiratory failure - Lab Data Result diagrams: 01/27/24 10:39 01/27/24 10:39 Lab Results 01/27/24 01/27/24 01/27/24 Range/Units 10:39 10:39 10:39 WBC 17.0 H (3.8-10.6) k/uL RBC 3.69 L (4.30-5.90) m/uL Hgb 10.4 L (13.0-17.5) gm/dL Hct 35.2 L (39.0-53.0) % MCV 95.3 (80.0-100.0) fL MCH 28.0 (25.0-35.0) pg MCHC 29.4 L (31.0-37.0) g/dL RDW 22.8 H (11.5-15.5) % Plt Count 140 L (150-450) k/uL MPV 9.2 Neutrophils % 95 % Lymphocytes % 1 % Monocytes % 3 % Eosinophils % 1 % Basophils % 0 % Neutrophils # 16.3 H (1.3-7.7) k/uL Lymphocytes # 0.1 L (1.0-4.8) k/uL Monocytes # 0.5 (0-1.0) k/uL Eosinophils # 0.1 (0-0.7) k/uL Basophils # 0.0 (0-0.2) k/uL Hypochromasia Marked Anisocytosis Moderate Macrocytosis Slight PT 10.8 (10.0-12.5) sec INR 1.0 (<1.2) APTT 26.5 (22.0-30.0) sec Sodium 133 L (137-145) mmol/L Potassium 4.2 (3.5-5.1) mmol/L Chloride 102 (98-107) mmol/L Carbon Dioxide 27 (22-30) mmol/L Anion Gap 4 mmol/L BUN 26 H (9-20) mg/dL Creatinine 0.73 (0.66-1.25) mg/dL Est GFR (CKD-EPI)AfAm >90 (>60 ml/min/1.73 sqM) Est GFR (CKD-EPI)NonAf >90 (>60 ml/min/1.73 sqM) Glucose 57 L (74-99) mg/dL Calcium 9.4 (8.4-10.2) mg/dL Magnesium 2.0 (1.6-2.3) mg/dL Total Bilirubin 0.9 (0.2-1.3) mg/dL AST 31 (17-59) U/L ALT 23 (4-49) U/L Alkaline Phosphatase 68 (38-126) U/L Troponin I (0.000-0.034) ng/mL Total Protein 6.2 L (6.3-8.2) g/dL Albumin 3.5 (3.5-5.0) g/dL Influenza Type A (PCR) (Not Detectd) Influenza Type B (PCR) (Not Detectd) RSV (PCR) (Not Detectd) SARS-CoV-2 (PCR) (Not Detectd) 01/27/24 01/27/24 Range/Units 10:39 10:39 WBC (3.8-10.6) k/uL RBC (4.30-5.90) m/uL Hgb (13.0-17.5) gm/dL Hct (39.0-53.0) % MCV (80.0-100.0) fL MCH (25.0-35.0) pg MCHC (31.0-37.0) g/dL RDW (11.5-15.5) % Plt Count (150-450) k/uL MPV Neutrophils % % Lymphocytes % % Monocytes % % Eosinophils % % Basophils % % Neutrophils # (1.3-7.7) k/uL Lymphocytes # (1.0-4.8) k/uL Monocytes # (0-1.0) k/uL Eosinophils # (0-0.7) k/uL Basophils # (0-0.2) k/uL Hypochromasia Anisocytosis Macrocytosis PT (10.0-12.5) sec INR (<1.2) APTT (22.0-30.0) sec Sodium (137-145) mmol/L Potassium (3.5-5.1) mmol/L Chloride (98-107) mmol/L Carbon Dioxide (22-30) mmol/L Anion Gap mmol/L BUN (9-20) mg/dL Creatinine (0.66-1.25) mg/dL Est GFR (CKD-EPI)AfAm (>60 ml/min/1.73 sqM) Est GFR (CKD-EPI)NonAf (>60 ml/min/1.73 sqM) Glucose (74-99) mg/dL Calcium (8.4-10.2) mg/dL Magnesium (1.6-2.3) mg/dL Total Bilirubin (0.2-1.3) mg/dL AST (17-59) U/L ALT (4-49) U/L Alkaline Phosphatase (38-126) U/L Troponin I <0.012 (0.000-0.034) ng/mL Total Protein (6.3-8.2) g/dL Albumin (3.5-5.0) g/dL Influenza Type A (PCR) Not Detected (Not Detectd) Influenza Type B (PCR) Not Detected (Not Detectd) RSV (PCR) Not Detected (Not Detectd) SARS-CoV-2 (PCR) Not Detected (Not Detectd) Critical Care Time Critical Care Time: Yes Total Critical Care Time: 35 Disposition Clinical Impression: Lung cancer, Acute exacerbation of chronic obstructive pulmonary disease, Leukocytosis Disposition: ADMITTED IP TO THIS [facility] Condition: Stable Is patient prescribed a controlled substance at d/c from ED?: No Referrals: Eduardo Parsons MD [Primary Care Provider] - 1-2 days Time of Disposition: 12:13
[2024-01-27 11:02] LABS: Anisocytosis Moderate; Basophils % (A) 0 %; Eosinophils # (A) 0.1 k/uL (0-0.7); Eosinophils % (A) 1 %; HCT 35.2 % (39.0-53.0); HGB 10.4 gm/dL (13.0-17.5); Hypochromasia Marked; Lymphocytes # (A) 0.1 k/uL (1.0-4.8); Lymphocytes % (A) 1 %; MCHC 29.4 g/dL (31.0-37.0); MCV 95.3 fL (80.0-100.0); Macrocytosis Slight; Mean Platelet Volume 9.2; Monocytes # (A) 0.5 k/uL (0-1.0); Monocytes % (A) 3 %; Neutrophils # (A) 16.3 k/uL (1.3-7.7); Neutrophils % (A) 95 %; Platelet Count 140 k/uL (150-450); RBC 3.69 m/uL (4.30-5.90); RDW 22.8 % (11.5-15.5)
[2024-01-27 11:17] LABS: Partial Thromboplastin Time 26.5 sec (22.0-30.0); Prothrombin Time 10.8 sec (10.0-12.5)
--- NOTE | 2024-01-27 11:17 | XR ---
EXAMINATION TYPE: XR chest 2V DATE OF EXAM: 01/27/2024 11:05 AM COMPARISON: 01/20/2024 CLINICAL INDICATION: Male, 63 years old with history of Chest Pain, TECHNIQUE: XR chest 2V view(s) obtained. FINDINGS: The heart size is normal. The pulmonary vasculature is normal. There is persistent posterior lung opacity. Additional workup with CT is recommended. Differential di agnoses could include pneumonia or mass. IMPRESSION: 1. Persistent posterior lung opacity. Additional workup with CT recommended. [facility], , 01/27/2024 11:15 AM
[2024-01-27 11:19] LABS: ALT 23 U/L (4-49); AST 31 U/L (17-59); African American GFR (CKD) >90 (>60 ml/min/1.73 sqM); Albumin 3.5 g/dL (3.5-5.0); Alkaline Phosphatase 68 U/L (38-126); Anion Gap 4 mmol/L; Blood Urea Nitrogen 26 mg/dL (9-20); Calcium 9.4 mg/dL (8.4-10.2); Carbon Dioxide 27 mmol/L (22-30); Chloride 102 mmol/L (98-107); Glucose 57 mg/dL (74-99); Non-African American GFR(CKD) >90 (>60 ml/min/1.73 sqM); Potassium 4.2 mmol/L (3.5-5.1); Sodium 133 mmol/L (137-145); Total Bilirubin 0.9 mg/dL (0.2-1.3); Total Protein 6.2 g/dL (6.3-8.2)
[2024-01-27] MEDS ORDERED: IPRATROPIUM-ALBUTEROL 3 ML NEB INHALATION PRN (12:05)
[2024-01-27] MEDS ORDERED: NALOXONE 0.4 MG/ML 1 ML VIAL IVP PRN (12:05)
[2024-01-27] MEDS ORDERED: VANCOMYCIN IV PER PHARMACY 1 EACH MISC MISCELLANE PRN (12:07)
[2024-01-27] MEDS ORDERED: VANCOMYCIN 1,500 MG in SODIUM CHLORIDE 0.9% 500 ML 500 ML IVPB ONE (13:00)
[2024-01-27] MEDS: IPRATROPIUM-ALBUTEROL 3 ML NEB INHALATION SCH (15:32)
[2024-01-27] MEDS ORDERED: NON FORMULARY DRUG (Albuterol Inhaler 90 MCG Puff) INHALATION PRN (15:52)
[2024-01-27] MEDS: LACTATED RINGERS 1,000 ML IV ONE ×2 (16:52→17:30)
--- NOTE | 2024-01-27 17:00 | P.CNPUL ---
History of Present Illness Consult date: 01/27/24 Requesting physician: Puneet Leon Reason for consult: dyspnea, cough, COPD, lung mass Chief complaint: Shortness of breath. History of present illness: Pulmonary consult dated January 27, 2024. 63-year-old male who presents to the emergency department, with chest pain, cough, shortness of breath. The patient was recently in the hospital, between January 19, and January 24. At that time, the patient did undergo bronchoscopy, for airway secretions. The patient does have a history of lung cancer. Anyway, the patient woke up from a nap, and was apparently short of breath, and was panicky. For that reason, he has decided to bring him into the hospital. He looks no different than he did when he left the hospital, on 24 January. The patient is currently on 2 L of oxygen. We are going to add some Xanax for anxiety. We talked to the admitting physician about possible disch arge, either today or tomorrow. The patient's history includes atrial fibrillation, coronary disease, lung cancer, COPD, hyperlipidemia, hypertension, and myocardial infarction. The patient's lung cancer was treated with chemo/radiation. Currently he is not receiving any treatment. He does have a previous history of MRSA infection. Current laboratory data includes a white 17, hemoglobin 10.4, macro 35.2, and a platelet count of 140,000. Coagulation studies are normal. Sodium 133, potassium 4.2, chlorides 102, CO2 27, BUN 26, creatinine 0.73. Total protein 6.2. Viral studies are negative. Today's chest x-ray is unchanged compared to the prior chest x-ray. The patient had bronchoscopy on January 23. He had bronchoalveolar lavage of the right upper lobe, brushings of the right upper lobe, and brushings of the tracheal teresa. All specimens were negative. There were rare atypical cells seen on the BAL of the right upper lobe. Previous Gram stain from January 20, was positive for Staph aureus. The more recent specimens, from January 23, are negative. Review of Systems REVIEW OF SYSTEMS: CONSTITUTIONAL: Anxiety. Panic. NEUROLOGIC: [ Negative.] HEENT: [ Negative.] CARDIAC: [Negative.] PULMONARY: Shortness of breath, cough. GI: [Negative.] : [Negative.] RHEUMATOLOGIC: [ Negative.] IMMUNOLOGIC: [ Negative.] ENDOCRINE: [Negative. ] DERMATOLOGIC: [Negative.] Past Medical History Past Medical History: Atrial Fibrillation, Coronary Artery Disease (CAD), Cancer, Chest Pain / Angina, COPD, Hyperlipidemia, Hypertension, Myocardial Infarction ([place]) Additional Past Medical History / Comment(s): SVT with chest pain/palpitations- chemically converted(2023), lung cancer with chemo and radiation Last Myocardial Infarction Date:: 2017 History of Any Multi-Drug Resistant Organisms: MRSA Date of last positivie culture/infection: 12/23/2013 MDRO Source:: Face Past Surgical History: Heart Catheterization With Stent Additional Past Surgical History / Comment(s): I&D of Right inframandibular abscess. 3 cardiac stents, bronchoscopy for abscess Past Anesthesia/Blood Transfusion Reactions: No Reported Reaction Additional Past Anesthesia/Blood Transfusion Reaction / Comment(s): platelet transfusions with no reaction r/t chemo Date of Last Stent Placement:: 2017 Past Psychological History: No Psychological Hx Reported Smoking Status: Current some day smoker Past Alcohol Use History: None Reported Past Drug Use History: None Reported - Past Family History Father Family Medical History: No Reported History Additional Family Medical History / Comment(s): Father of "natural causes" at the age of 79yrs. Mother Family Medical History: COPD, Coronary Artery Disease (CAD) Additional Family Medical History / Comment(s): Mother is 76yrs old. She has had several MIs, 6 cardiac stents and a 4 vessel CABG. Medications and Allergies Home Medications Medication Instructions Recorded Confirmed Type Atorvastatin [Lipitor] 80 mg PO HS 03/04/21 01/27/24 History Spiriva Respimat 1.25mcg/Actuation 2 puff INHALATION RT-HS #0 09/01/22 01/27/24 Rx Mist Hydrocodone/Acetaminophen 1 tab PO QID 06/06/23 01/27/24 History [Hydrocodone/Acetaminophen 10-300 mg] Amiodarone [Cordarone] 200 mg PO DAILY #30 tab 09/11/23 01/27/24 Rx Apixaban [Eliquis] 5 mg PO BID 30 Days #60 tab 09/11/23 01/27/24 Rx Cholecalciferol [Vitamin D3 (25 50 mcg PO DAILY 12/14/23 01/27/24 History Mcg = 1000 Iu)] Omeprazole [PriLOSEC] 40 mg PO DAILY PRN 12/14/23 01/27/24 History Albuterol Inhaler [Ventolin Hfa 2 puff INHALATION RT-QID PRN 01/20/24 01/27/24 History Inhaler] Metoprolol Tartrate [Lopressor] 12.5 mg PO BID PRN 01/20/24 01/27/24 History Amoxic-Pot Clav 875-125Mg 1 tab PO Q12HR 7 Days #14 tab 01/25/24 01/27/24 Rx [Augmentin 875-125] Budesonide-Formot 160-4.5 Mcg 2 puff INHALATION RT-BID #1 each 01/25/24 01/27/24 Rx [Symbicort 160-4.5 Mcg Inhaler] guaiFENesin [Mucinex] 1,200 mg PO Q12HR PRN #60 tab 01/25/24 01/27/24 Rx Allergies Allergy/AdvReac Type Severity Reaction Status Date / Time Penicillins Allergy Dyspnea & Verified 01/27/24 11:49 Hives all over Physical Exam Osteopathic Statement: *. No significant issues noted on an osteopathic structural exam other than those noted in the History and Physical/Consult. Vitals: Vital Signs Temp Pulse Resp BP Pulse Ox 01/27/24 15:44 100 01/27/24 15:42 92 01/27/24 15:32 92 01/27/24 13:43 96 18 121/70 98 01/27/24 12:07 108 H 20 124/74 96 01/27/24 11:47 20 01/27/24 10:34 98.2 F 107 H 26 H 116/70 99 01/27/24 09:49 98.3 F 114 H 24 122/74 98 Intake and Output 01/27/24 01/27/24 01/27/24 06:59 14:59 22:59 Other: Weight 77.111 kg No acute distress, oriented 3. No respiratory distress. Currently on 2 L. HEENT examination is grossly unremarkable. Mucous membranes are moist. No oral lesions. Neck supple. Full range of motion. No adenopathy thyromegaly or neck vein distention. Cardiovascular examination reveals regular rhythm rate. S1-S2 normal. No S3 or S4. No discernible murmur noted. Lungs reveal minimal scattered rhonchi. No wheezes or crackles. Breath sounds equal. Abdomen soft bowel sounds are heard. No masses or tenderness. Extremities are intact. No cyanosis clubbing or edema. Skin is without rash or lesion. Neurologic examination is brief but nonfocal. Results - Laboratory Findings CBC and BMP: 01/27/24 10:39 01/27/24 10:39 PT/INR, D-dimer PT 10.8 sec (10.0-12.5) 01/27/24 10:39 INR 1.0 (<1.2) 01/27/24 10:39 Abnormal lab findings: Abnormal Labs 01/27/24 01/27/24 10:39 10:39 WBC 17.0 H RBC 3.69 L Hgb 10.4 L Hct 35.2 L MCHC 29.4 L RDW 22.8 H Plt Count 140 L Neutrophils # 16.3 H Lymphocytes # 0.1 L Sodium 133 L BUN 26 H Glucose 57 L Total Protein 6.2 L - Diagnostic Findings Chest x-ray: image reviewed Assessment and Plan Assessment: Shortness of breath, and cough, partially related to his underlying COPD and lung cancer, but also likely related to anxiety/panic. Recent bronchoscopy, January 23, negative for cytology and microbiology. Metastatic squamous cell carcinoma of the lung, diagnosed initially 2020. Patient was treated with chemo and radiation. Acute on chronic shortness of breath. Chronic anemia. History of hypertension. History of hyperlipidemia. History of CAD with previous PCI/stent. History of ischemic cardiomyopathy, with an ejection fraction of 35%. Chronic and ongoing tobacco dependence. History of paroxysmal atrial fibrillation. Plan: Plan dated January 27, 2024. The patient is seen in the emergency department, room 11. The patient looks no different than when he left the hospital, just a few days ago. He was discharged on January 24. The patient was admitted on the . We saw him in consultation on the seventh, and he had bronchoscopy on January 23. Cytology was negative. Microbiology was negative. The patient is currently on 2 L. We add some Xanax. We talked to the primary staff. Hopefully the patient can be discharged home tomorrow. No additional recommendations are made. Pro gnosis is guarded. Time with Patient: Greater than 30
--- NOTE | 2024-01-27 17:41 | P.HPIM ---
History of Present Illness H&P Date: 01/27/24 Patient is a 63-year-old male with past medical history of SCC lung CA, COPD with intermittent home O2, recent (01/24/2024) bronchoscopy with BAL, recent (01/21/2024) MSSA positive sputum, CAD with stents X3, A-fib on Eliquis, history of ID, hypertension, and hyperlipidemia presents to the emergency department for cough and dyspnea. He states that earlier this morning he was napping when he woke up gasping for air. He states that he panicked and his son brought him here. He thinks that he was choking on his sputum and that caused his dyspnea. He states that he has been coughing up many "dark blood clots" since he left the hospital 01/24. He endorses chest pain and headache and attributes them both to his severe coughing. He states that he feels about the same as he did the other day when he was discharged. He has been receiving palliative radiotherapy, most recently yesterday morning, but was unable to attend today as he felt he was not able to stop coughing long enough to sit still for the treatment. He also endorses a feeling of being in A-fib intermittently since 01/24 but does not currently feel like he is in A-fib. EKG independently interpreted as sinus tachycardia, ventricular rate 110 bpm, [place] interval 112 ms. Chest x-ray shows: Persistent posterior lung opacity. Initial labs: WBC 17, RBC 3.69, hemoglobin 10.4, hematocrit 35.2, sodium 133, potassium 4.2, chloride 102, CO2 27, BUN 26, creatinine 0.73, glucose 57, lactic acid 0.8, magnesium 2.0, troponin X1 <0.012. Initial vitals: T 98.3 F, [place] 114 bpm, RR 24, BP 122/74, 98% O2 saturation on room air. ED documentation reviewed. Review of systems: Pertinent positives and negatives as discussed in HPI, a complete review of systems was performed and all other systems are negative. Social history: Tobacco: Current smoker Alcohol: None reported Recreational drugs: None reported Travel: None reported Sick contacts: Did none reported Physical examination: Vital signs reviewed General: No acute distress, currently on 2 L nasal cannula Derm: Warm, dry, intact Head: Atraumatic, normocephalic, symmetric Eyes: EOMI, anicteric sclera Mouth: No lip lesion, mucus membranes moist Cardiovascular: S1-S2 regular, no murmur Lungs: Bilateral scattered rhonchi, no rales, no accessory muscle use Abdominal: Soft, non-tender to palpation Extremities: No cyanosis, clubbing, or pedal edema. Neuro: Alert, oriented x 3, gross neurological examination did not reveal any focal deficits. Cranial nerves II to XII grossly intact. Psych: Appropriate affect and mood Assessment and Plan: Patient is a 63-year-old male with past medical history of SCC lung CA, COPD with intermittent home O2, recent (01/24/2024) bronchoscopy with BAL, recent (01/21/2024) MSSA positive sputum, CAD with stents X3, A-fib on Eliquis, history of ID, hypertension, and hyperlipidemia admitted for acute on chronic hypoxic respiratory failure. Active #. Acute hypoxic respiratory failure, likely multifactorialprogressive lung cancer versus radiation pneumonitis versus postobstructive pneumonia versus COPD exacerbation #. COPD, possible acute exacerbation DuoNeb 4 times daily and as needed Symbicort twice daily Solu-Medrol 60 mg IV every 6 hours Discussed management with pulmonology, anticipate discharge tomorrow if patient able to remain on room air #. SIRS suspected sepsis secondary to pneumonia 2 L lactated ringer bolus IV cefazolin 2 g every 8 hours, as patient was previously growing MSSA Repeat CBC in the morning Blood cultures pending Chronic #. Paroxysmal A-fib Eliquis 5 mg PO twice daily Amiodarone 200 mg PO daily #. Hypertension, monitor #. Hyperlipidemia Lipitor 80 mg PO at bedtime DVT prophylaxis: Eliquis 5 mg PO daily GI prophylaxis: Protonix 40 mg PO daily The patient is admitted with an anticipated less than 2 midnight stay for evaluation of cough and dyspnea. CODE STATUS: Full code Discussed with: Dr. Leon Anticipated discharge place: Home A total of 65 minutes was spent on the care of this complex patient more than 50% of the time was spent in counseling and care coordination. I have seen and evaluated the patient today. Discussed with the resident and agree with the residents finding and plan as documented in the resident's note. Changes highlighted in blue font. Past Medical History Past Medical History: Atrial Fibrillation, Coronary Artery Disease (CAD), C ancer, Chest Pain / Angina, COPD, Hyperlipidemia, Hypertension, Myocardial Infarction (ID) Additional Past Medical History / Comment(s): SVT with chest pain/palpitations-chemically converted(2023), lung cancer with chemo and radiation Last Myocardial Infarction Date:: 2017 History of Any Multi-Drug Resistant Organisms: MRSA Date of last positivie culture/infection: 12/23/2013 MDRO Source:: Face Past Surgical History: Heart Catheterization With Stent Additional Past Surgical History / Comment(s): I&D of Right inframandibular abscess. 3 cardiac stents, bronchoscopy for abscess Past Anesthesia/Blood Transfusion Reactions: No Reported Reaction Additional Past Anesthesia/Blood Transfusion Reaction / Comment(s): platelet transfusions with no reaction r/t chemo Date of Last Stent Placement:: 2017 Past Psychological History: No Psychological Hx Reported Smoking Status: Current some day smoker Past Alcohol Use History: None Reported Past Drug Use History: None Reported - Past Family History Father Family Medical History: No Reported History Additional Family Medical History / Comment(s): Father of "natural causes" at the age of 79yrs. Mother Family Medical History: COPD, Coronary Artery Disease (CAD) Additional Family Medical History / Comment(s): Mother is 76yrs old. She has had several MIs, 6 cardiac stents and a 4 vessel CABG. Medications and Allergies Home Medications Medication Instructions Recorded Confirmed Type Atorvastatin [Lipitor] 80 mg PO HS 03/04/21 01/27/24 History Spiriva Respimat 1.25mcg/Actuation 2 puff INHALATION RT-HS #0 09/01/22 01/27/24 Rx Mist Hydrocodone/Acetaminophen 1 tab PO QID 06/06/23 01/27/24 History [Hydrocodone/Acetaminophen 10-300 mg] Amiodarone [Cordarone] 200 mg PO DAILY #30 tab 09/11/23 01/27/24 Rx Apixaban [Eliquis] 5 mg PO BID 30 Days #60 tab 09/11/23 01/27/24 Rx Cholecalciferol [Vitamin D3 (25 50 mcg PO DAILY 12/14/23 01/27/24 History Mcg = 1000 Iu)] Omeprazole [PriLOSEC] 40 mg PO DAILY PRN 12/14/23 01/27/24 History Albuterol Inhaler [Ventolin Hfa 2 puff INHALATION RT-QID PRN 01/20/24 01/27/24 History Inhaler] Metoprolol Tartrate [Lopressor] 12.5 mg PO BID PRN 01/20/24 01/27/24 History Amoxic-Pot Clav 875-125Mg 1 tab PO Q12HR 7 Days #14 tab 01/25/24 01/27/24 Rx [Augmentin 875-125] Budesonide-Formot 160-4.5 Mcg 2 puff INHALATION RT-BID #1 each 01/25/24 01/27/24 Rx [Symbicort 160-4.5 Mcg Inhaler] guaiFENesin [Mucinex] 1,200 mg PO Q12HR PRN #60 tab 01/25/24 01/27/24 Rx Allergies Allergy/AdvReac Type Severity Reaction Status Date / Time Penicillins Allergy Dyspnea & Verified 01/27/24 11:49 Hives all over Physical Exam Vitals: Vital Signs Temp Pulse Resp BP Pulse Ox 01/27/24 13:43 96 18 121/70 98 01/27/24 12:07 108 H 20 124/74 96 01/27/24 10:34 98.2 F 107 H 26 H 116/70 99 01/27/24 09:49 98.3 F 114 H 24 122/74 98 Intake and Output 01/27/24 01/27/24 01/27/24 06:59 14:59 22:59 Other: Weight 77.111 kg Results CBC & Chem 7: 01/27/24 10:39 01/27/24 10:39 Labs: Abnormal Lab Results - Last 24 Hours (Table) 01/27/24 01/27/24 Range/Units 10:39 10:39 WBC 17.0 H (3.8-10.6) k/uL RBC 3.69 L (4.30-5.90) m/uL Hgb 10.4 L (13.0-17.5) gm/dL Hct 35.2 L (39.0-53.0) % MCHC 29.4 L (31.0-37.0) g/dL RDW 22.8 H (11.5-15.5) % Plt Count 140 L (150-450) k/uL Neutrophils # 16.3 H (1.3-7.7) k/uL Lymphocytes # 0.1 L (1.0-4.8) k/uL Sodium 133 L (137-145) mmol/L BUN 26 H (9-20) mg/dL Glucose 57 L (74-99) mg/dL Total Protein 6.2 L (6.3-8.2) g/dL
[2024-01-27 17:49] LABS: Glucose,Whole Blood 64 mg/dL (70-110)
[2024-01-27 18:27] LABS: Glucose,Whole Blood 77 mg/dL (70-110)
[2024-01-27] MEDS: methylPREDNISolone SOD SUCCI 125 MG/2 ML VIAL IV SCH (18:27)
[2024-01-27] MEDS: HYDROcodone/APAP 10-325MG 1 EACH TAB PO SCH (18:27)
[2024-01-27] MEDS ORDERED: MIST INHALATION SCH (20:00)
[2024-01-27] MEDS ORDERED: SPIRIVA RESPIMAT INHALATION SCH (20:00)
[2024-01-27] MEDS: SYMBICORT 160-4.5 MCG INHALER INHALATION SCH (20:05)
[2024-01-27] MEDS: APIXABAN 5 MG TAB PO SCH (20:37)
[2024-01-27] MEDS: ATORVASTATIN 80 MG TAB PO SCH (20:37)
[2024-01-27] MEDS: ACETAMINOPHEN TAB 325 MG TAB PO PRN (20:37)
[2024-01-27] MEDS: guaiFENesin 600 MG TABLET.ER PO PRN (23:18)
[2024-01-28] MEDS: HYDROcodone/APAP 10-325MG 1 EACH TAB PO SCH (05:24)
[2024-01-28 06:01] LABS: Anisocytosis Moderate; Basophils % (A) 0 %; Eosinophils % (A) 0 %; HCT 32.5 % (39.0-53.0); HGB 9.8 gm/dL (13.0-17.5); Hypochromasia Marked; Lymphocytes # (A) 0.1 k/uL (1.0-4.8); Lymphocytes % (A) 1 %; MCH 28.9 pg (25.0-35.0); MCV 96.1 fL (80.0-100.0); Macrocytosis Moderate; Mean Platelet Volume 9.2; Monocytes # (A) 0.1 k/uL (0-1.0); Monocytes % (A) 1 %; Neutrophils # (A) 9.8 k/uL (1.3-7.7); Neutrophils % (A) 97 %; Platelet Count 113 k/uL (150-450); RBC 3.38 m/uL (4.30-5.90); RDW 22.5 % (11.5-15.5)
--- NOTE | 2024-01-28 07:43 | P.PN ---
Subjective Progress Note Date: 01/28/24 Principal diagnosis: Chronic shortness of breath. Pulmonary consult dated January 27, 2024. 63-year-old male who presents to the emergency department, with chest pain, cough, shortness of breath. The patient was recently in the hospital, between January 19, and January 24. At that time, the patient did undergo bronchoscopy, for airway secretions. The patient does have a history of lung cancer. Anyway, the patient woke up from a nap, and was apparently short of breath, and was panicky. For that reason, he has decided to bring him into the hospital. He looks no different than he did when he left the hospital, on 24 January. The patient is currently on 2 L of oxygen. We are going to add some Xanax for anxiety. We talked to the admitting physician about possible discharge, either today or tomorrow. The patient's history includes atrial fibrillation, coronary disease, lung cancer, COPD, hyperlipidemia, hypertension, and myocardial infarction. The patient's lung cancer was treated with chemo/radiation. Currently he is not receiving any treatment. He does have a previous history of MRSA infection. Current laboratory data includes a white 17, hemoglobin 10.4, macro 35.2, and a platelet count of 140,000. Coagulation studies are normal. Sodium 133, potassium 4.2, chlorides 102, CO2 27, BUN 26, creatinine 0.73. Total protein 6.2. Viral studies are negative. Today's chest x-ray is unchanged compared to the prior chest x-ray. The patient had br onchoscopy on January 23. He had bronchoalveolar lavage of the right upper lobe, brushings of the right upper lobe, and brushings of the tracheal teresa. All specimens were negative. There were rare atypical cells seen on the BAL of the right upper lobe. Previous Gram stain from January 20, was positive for Staph aureus. The more recent specimens, from January 23, are negative. Progress note dated January 28, 2024. 63-year-old male well-known to our service. The patient was seen this morning in room 522. He continues on oxygen at 3 L. No IV fluids. The patient came in primarily with anxiety and panic yesterday. We mention to the primary service that he probably could have been discharged from the ER yesterday. They chose to keep him overnight. Clinically he is doing well, and he is back to baseline. White count 10, hemoglobin 0.8, hematocrit 32.5, and platelet count 113,000. Objective - Vital Signs Vital signs: Vital Signs Temp 97.8 F 01/28/24 01:51 Pulse 82 01/28/24 01:51 Resp 16 01/28/24 01:51 BP 108/72 01/28/24 01:51 Pulse Ox 97 01/28/24 01:51 FiO2 Intake & Output 01/27/24 01/28/24 01/28/24 18:59 06:59 18:59 Intake Total 1130 Balance 1130 Weight 77.111 kg 66.5 kg Intake: Intake, IV Titration 50 Amount ceFAZolin 2 gm In Sodium 50 Chloride 0.9% 50 ml @ 100 mls/hr IVPB Q8HR [facility] Rx# :[id number] Oral 1080 Other: Voiding Method Toilet # Voids 3 # Bowel Movements 1 - Exam No acute distress, oriented 3. No respiratory distress. Currently on 3 L. HEENT examination is grossly unremarkable. Mucous membranes are moist. No oral lesions. Neck supple. Full range of motion. No adenopathy thyromegaly or neck vein dist ention. Cardiovascular examination reveals regular rhythm rate. S1-S2 normal. No S3 or S4. No discernible murmur noted. Lungs reveal minimal scattered rhonchi. No wheezes or crackles. Breath sounds equal. Abdomen soft bowel sounds are heard. No masses or tenderness. Extremities are intact. No cyanosis clubbing or edema. Skin is without rash or lesion. Neurologic examination is brief but nonfocal. - Labs CBC & Chem 7: 01/28/24 05:31 01/27/24 10:39 Labs: Abnormal Lab Results - Last 24 Hours (Table) 01/27/24 01/27/24 01/27/24 Range/Units 10:39 10:39 17:41 WBC 17.0 H (3.8-10.6) k/uL RBC 3.69 L (4.30-5.90) m/uL Hgb 10.4 L (13.0-17.5) gm/dL Hct 35.2 L (39.0-53.0) % MCHC 29.4 L (31.0-37.0) g/dL RDW 22.8 H (11.5-15.5) % Plt Count 140 L (150-450) k/uL Neutrophils # 16.3 H (1.3-7.7) k/uL Lymphocytes # 0.1 L (1.0-4.8) k/uL Sodium 133 L (137-145) mmol/L BUN 26 H (9-20) mg/dL Glucose 57 L (74-99) mg/dL POC Glucose (mg/dL) 64 L (70-110) mg/dL Total Protein 6.2 L (6.3-8.2) g/dL 01/27/ Range/Units 05:31 WBC (3.8-10.6) k/uL RBC 3.38 L (4.30-5.90) m/uL Hgb 9.8 L (13.0-17.5) gm/dL Hct 32.5 L (39.0-53.0) % MCHC 30.0 L (31.0-37.0) g/dL RDW 22.5 H (11.5-15.5) % Plt Count 113 L (150-450) k/uL Neutrophils # 9.8 H (1.3-7.7) k/uL Lymphocytes # 0.1 L (1.0-4.8) k/uL Sodium (137-145) mmol/L BUN (9-20) mg/dL Glucose (74-99) mg/dL POC Glucose (mg/dL) (70-110) mg/dL Total Protein (6.3-8.2) g/dL Assessment and Plan Assessment: Shortness of breath, and cough, partially related to his underlying COPD and lung cancer, but also likely related to anxiety/panic. Recent bronchoscopy, January 23, negative for cytology and microbiology. Metastatic squamous cell carcinoma of the lung, diagnosed initially 2020. Patient was treated with chemo and radiation. Acute on chronic shortness of breath. Chronic anemia. History of hypertension. History of hyperlipidemia. History of CAD with previous PCI/stent. History of ischemic cardiomyopathy, with an ejection fraction of 35%. Chronic and ongoing tobacco dependence. History of paroxysmal atrial fibrillation. Plan: Plan dated January 27, 2024. The patient is seen in the emergency department, room 11. The patient looks no different than when he left the hospital, just a few days ago. He was di scharged on [address]. The patient was admitted on the . We saw him in consultation on the , and he had bronchoscopy on January 23. Cytology was negative. Microbiology was negative. The patient is currently on 2 L. We add some Xanax. We talked to the primary staff. Hopefully the patient can be discharged home tomorrow. No additional recommendations are made. Prognosis is guarded. Plan dated January 28, 2024. The patient is seen today in room 522. The patient is on 3 L. No IV fluids. In our opinion, the patient is stable could be considered for discharge. Labs, x-rays, and medications are reviewed. The patient should follow-up with his primary, and his hearing aid specialist. No additional recommendations are made at this time. Xanax did seem to help a bit. Time with Patient: Less than 30
[2024-01-28] MEDS: ALPRAZolam 0.5 MG TAB PO PRN (07:50)
[2024-01-28] MEDS: CHOLECALCIFEROL 25 MCG (1000 IU) TABLET PO SCH (07:51)
[2024-01-28] MEDS: AMIODARONE 200 MG TAB PO SCH (07:51)
[2024-01-28] MEDS: PANTOPRAZOLE 40 MG TABLET PO SCH (07:52)
[2024-01-28 08:11] LABS: Glucose,Whole Blood 154 mg/dL (70-110)
[2024-01-28 08:16] VITALS: BP 114/76; PULSE 76; RESP 17; TEMP 97.6
[2024-01-28] MEDS ORDERED: PANTOPRAZOLE 40 MG/10 ML VIAL IVP SCH (09:00)
--- NOTE | 2024-01-28 13:01 | P.DS ---
Providers Date of admission: 01/27/24 12:06 Expected date of discharge: 01/28/24 Attending physician: Puneet Leon Consults: 01/27/24 12:05 Consult Physician Routine Consulting Provider: Anastacio Braga Consult Reason/Comments: COPD, PNA Do you want consulting provider notified?: Yes 01/27/24 16:04 Consult Physician Routine Consulting Provider: Darius Shearer Consult Reason/Comments: Lung SCC Do you want consulting provider notified?: Yes Primary care physician: Eduardo Parsons MD Hospital Course: Hospital Course: Patient is a 63-year-old male with past medical history of SCC lung CA, COPD with intermittent home O2, recent (01/24/2024) bronchoscopy with BAL, recent (01/21/2024) MSSA positive sputum, CAD with stents X3, A-fib on Eliquis, history of [place], hypertension, and hyperlipidemia presents to the emergency department for cough and dyspnea. He states that earlier this morning he was napping when he woke up gasping for air. He states that he panicked and his son brought him here. He thinks that he was choking on his sputum and that caused his dyspnea. He states that he has been coughing up many "dark blood clots" since he left the hospital 01/24. He endorses chest pain and headache and attributes them both to his severe coughing. He states that he feels about the same as he did the other day when he was discharged. He has been receiving palliative radiotherapy, most recently yesterday morning, but was unable to attend today as he felt he was not able to stop coughing long enough to sit still for the treatment. He also endorses a feeling of being in A-fib intermittently since 01/24 but does not currently feel like he is in A-fib. Initial workup includes: EKG independently interpreted as sinus tachycardia, ventricular rate 110 bpm, [place] interval 112 ms; chest x-ray shows: Persistent posterior lung opacity; labs: WBC 17, RBC 3.69, hemoglobin 10.4, hematocrit 35.2, sodium 133, potassium 4.2, chloride 102, CO2 27, BUN 26, creatinine 0.73, glucose 57, lactic acid 0.8, magnesium 2.0, troponin X1 <0.012, vitals: T 98.3 F, [place] 114 bpm, RR 24, BP 122/74, 98% O2 saturation on room air. Pulmonology was consulted. No changes were made at this time. Patient should finish previously prescribed Augmentin. Patient should follow-up with her primary care provider and cashier courtesy booth. Patient is medically stable for discharge. Final Diagnosis: #. Acute hypoxic respiratory failure, likely multifactorial-progressive lung cancer versus postobstructive pneumonia #. COPD, less likely to be acute exacerbation #. SIRS, suspected sepsis secondary to pneumonia. Resolved. #Leukocytosis likely in the setting of steroid use #. Paroxysmal A-fib on Eliquis #. Hypertension #. Hyperlipidemia Physical examination: Vital signs reviewed General: Nontoxic, no distress, appears stated age, well-appearing Derm: Warm, dry, intact Head: Atraumatic, normocephalic, symmetric Eyes: EOMI, anicteric sclera Mouth: No lip lesion, mucus membranes moist Cardiovascular: S1-S2 regular, no murmur Lungs: Bilateral rhonchi, no rales, no accessory muscle use Abdominal: Soft, non-tender to palpation Extremities: No cyanosis, clubbing, or pedal edema. Neuro: Alert, oriented x 3, gross neurological examination did not reveal any focal deficits. Cranial nerves II to XII grossly intact. A total of 38 minutes of time were spent preparing this complex discharge summary. Patient was discharged on 01/28/2024 at 913. I have seen and evaluated the patient today. Discussed with the resident and agree with the residents finding and plan as documented in the resident's note. Changes highlighted in blue font. Patient Condition at Discharge: Stable Plan - Discharge Summary Discharge Rx Participant: Yes New Discharge Prescriptions: Continue Spiriva Respimat 1.25mcg/Actuation Mist 2 puff INHALATION RT-HS #0 Omeprazole [PriLOSEC] 40 mg PO DAILY PRN PRN Reason: GERD Cholecalciferol [Vitamin D3 (25 Mcg = 1000 Iu)] 50 mcg PO DAILY Metoprolol Tartrate [Lopressor] 12.5 mg PO BID PRN PRN Reason: HIGH BP Amoxic-Pot Clav 875-125Mg [Augmentin 875-125] 1 tab PO Q12HR 7 Days #14 tab guaiFENesin [Mucinex] 1,200 mg PO Q12HR PRN #60 tab PRN Reason: Cough Budesonide-Formot 160-4.5 Mcg [Symbicort 160-4.5 Mcg Inhaler] 2 puff INHALATION RT-BID #1 each Atorvastatin [Lipitor] 80 mg PO HS Hydrocodone/Acetaminophen [Hydrocodone/Acetaminophen 10-300 mg] 1 tab PO QID Amiodarone [Cordarone] 200 mg PO DAILY #30 tab Apixaban [Eliquis] 5 mg PO BID 30 Days #60 tab Albuterol Inhaler [Ventolin Hfa Inhaler] 2 puff INHALATION RT-QID PRN PRN Reason: Shortness Of Breath Discharge Medication List Atorvastatin [Lipitor] 80 mg PO HS 03/04/21 [History] Spiriva Respimat 1.25mcg/Actuation Mist 2 puff INHALATION RT-HS #0 09/01/22 [Rx] Hydrocodone/Acetaminophen [Hydrocodone/Acetaminophen 10-300 mg] 1 tab PO QID 06/06/23 [History] Amiodarone [Cordarone] 200 mg PO DAILY #30 tab 09/11/23 [Rx] Apixaban [Eliquis] 5 mg PO BID 30 Days #60 tab 09/11/23 [Rx] Cholecalciferol [Vitamin D3 (25 Mcg = 1000 Iu)] 50 mcg PO DAILY 12/14/23 [History] Omeprazole [PriLOSEC] 40 mg PO DAILY PRN 12/14/23 [History] Albuterol Inhaler [Ventolin Hfa Inhaler] 2 puff INHALATION RT-QID PRN 01/20/24 [History] Metoprolol Tartrate [Lopressor] 12.5 mg PO BID PRN 01/20/24 [History] Amoxic-Pot Clav 875-125Mg [Augmentin 875-125] 1 tab PO Q12HR 7 Days #14 tab 01/25/24 [Rx] Budesonide-Formot 160-4.5 Mcg [Symbicort 160-4.5 Mcg Inhaler] 2 puff INHALATION RT-BID #1 each 01/25/24 [Rx] guaiFENesin [Mucinex] 1,200 mg PO Q12HR PRN #60 tab 01/25/24 [Rx] Follow up Appointment(s)/Referral(s): Eduardo Parsons MD [Primary Care Provider] - 1-2 days (please call to make you appointment) Basha,Anastacio, DO [Doctor of Osteopathic Medicine] - 1 Week (please call to make you appointment) Patient Instructions/Handouts: Lung Cancer (DC), COPD (Chronic Obstructive Pulmonary Disease) (DC) Activity/Diet/Wound Care/Special Instructions: Please follow-up with primary care provider and pulmonology. Discharge Disposition: HOME SELF-CARE
== END 2024-01-28 11:00 | disposition home or self-care (01) ==
LOC: EC 09:45 → 3SCARD 12:06 → 5NMEDONC 14:52
PROVIDERS: ADMIT Student in an Organized Health Care Education/Training Program; ATTEND Student in an Organized Health Care Education/Training Program
DX: J96.01 Acute respiratory failure with hypoxia (principal); J44.9 Chronic obstructive pulmonary disease, unspecified; R65.10 Systemic inflammatory response syndrome (SIRS) of non-infectious origin without acute organ dysfunction; F41.9 Anxiety disorder, unspecified; D72.828 Other elevated white blood cell count; D64.9 Anemia, unspecified; I25.10 Atherosclerotic heart disease of native coronary artery without angina pectoris; I10 Essential (primary) hypertension; E78.5 Hyperlipidemia, unspecified; I48.0 Paroxysmal atrial fibrillation; I25.2 Old myocardial infarction; I25.5 Ischemic cardiomyopathy; F17.200 Nicotine dependence, unspecified, uncomplicated; Z79.01 Long term (current) use of anticoagulants; Z99.81 Dependence on supplemental oxygen; Z85.118 Personal history of other malignant neoplasm of bronchus and lung; Z86.14 Personal history of Methicillin resistant Staphylococcus aureus infection; Z92.21 Personal history of antineoplastic chemotherapy; Z92.3 Personal history of irradiation; Z95.5 Presence of coronary angioplasty implant and graft; Z79.51 Long term (current) use of inhaled steroids; Z79.899 Other long term (current) drug therapy
CPT/HCPCS: 96376 ×2; 96366 ×2; 96365; 96375; 99291; 36415; 94640 ×2; 94760; 93005; 80053; 83605; 83735; 84484; 85025 ×2; 85610; 85730; 87040; 87070; 87205; 87636; 71046; G0378 ×3; J0690 ×2; J2919 ×2

== ENCOUNTER 2024-04-04 21:10 | Inpatient (IN) | payer OTHER ==
[2024-04-04] MEDS: methylPREDNISolone SOD SUCCI 125 MG/2 ML VIAL IV STA (21:47)
[2024-04-04] MEDS: IPRATROPIUM-ALBUTEROL 3 ML NEB INHALATION STA (21:47)
[2024-04-04] MEDS: MAGNESIUM SULFATE-D5W PMX 1 GM in DEXTROSE/WATER 1 100ML.BAG IVPB STA (21:48)
[2024-04-04 21:51] LABS: Anisocytosis Moderate; Basophils % (A) 0 %; Eosinophils % (A) 0 %; HCT 29.5 % (39.0-53.0); Hypochromasia Marked; Lymphocytes # (A) 0.4 k/uL (1.0-4.8); Lymphocytes % (A) 6 %; MCH 29.1 pg (25.0-35.0); MCHC 30.7 g/dL (31.0-37.0); Macrocytosis Moderate; Monocytes # (A) 0.4 k/uL (0-1.0); Monocytes % (A) 6 %; Neutrophils # (A) 5.8 k/uL (1.3-7.7); Neutrophils % (A) 86 %; Platelet Count 157 k/uL (150-450); Poikilocytosis Slight; RDW 23.2 % (11.5-15.5); WBC 6.8 k/uL (3.8-10.6)
[2024-04-04 22:02] LABS: Prothrombin Time 11.4 sec (10.0-12.5)
[2024-04-04 22:03] LABS: Partial Thromboplastin Time 27.3 sec (22.0-30.0)
[2024-04-04 22:05] LABS: ALT 18 U/L (4-49); AST 21 U/L (17-59); African American GFR (CKD) >90 (>60 ml/min/1.73 sqM); Albumin 3.2 g/dL (3.5-5.0); Alkaline Phosphatase 93 U/L (38-126); Anion Gap 11 mmol/L; Blood Urea Nitrogen 17 mg/dL (9-20); Calcium 8.7 mg/dL (8.4-10.2); Carbon Dioxide 28 mmol/L (22-30); Chloride 96 mmol/L (98-107); Glucose 115 mg/dL (74-99); Non-African American GFR(CKD) >90 (>60 ml/min/1.73 sqM); Potassium 3.7 mmol/L (3.5-5.1); Sodium 135 mmol/L (137-145); Total Bilirubin 1.1 mg/dL (0.2-1.3)
[2024-04-04 22:12] LABS: NT-Pro-B-Type Natriuretic Pept 2360 pg/mL
[2024-04-04 22:29] LABS: Influenza A Not Detected (Not Detectd); Influenza B Not Detected (Not Detectd); RSV Not Detected (Not Detectd)
--- NOTE | 2024-04-04 23:20 | XR ---
EXAM: XR Chest, 2 Views CLINICAL HISTORY: difficulty breathing TECHNIQUE: Frontal and lateral views of the chest. COMPARISON: 03/13/24 FINDINGS: Lungs: Moderate amount of airspace opacities in both lungs, concentrated in the right middle/upper lung zones and left perihilar regions, suggest pneumonia, worse than on the prior study. Pleural space: Unremarkable. Mediastinum: Unchanged. Bones/joints: No acute findings. IMPRESSION: Moderate amount of airspace opacities in both lungs, concentrated in the right middle/upper lung zones and left perihilar regions, suggest pneumonia, worse than on the prior study. Follow up to resolution is recommended to rule out potential underlying neoplastic etiologies.
--- NOTE | 2024-04-05 00:10 | ED ---
SOB HPI - General Chief Complaint: Shortness of Breath Stated Complaint: Difficulty Breathing Time Seen by Provider: 04/04/24 21:25 Source: patient Mode of arrival: wheelchair - History of Present Illness Initial Comments: 63-year-old male with past medical history of lung cancer on chemotherapy, COPD who presents emergency department reporting shortness of breath. Patient states that over the past 3 weeks he has had increase fluid in his extremities and worsening shortness of breath. He has now developed a productive cough with yellow sputum. Patient has a history of lung cancer and is currently on chemotherapy every 2 weeks. He also has a history of COPD. Does not wear oxygen at home. Denies any fevers. No chest pain. Patient does take a diuretic but is unsure if he took it today. he denies nausea, vomiting or diarrhea. No other alleviating, precipitating or modifying factors - Related Data Home Medications Medication Instructions Recorded Confirmed Atorvastatin [Lipitor] 80 mg PO HS 03/04/21 04/05/24 Hydrocodone/Acetaminophen 1 tab PO QID 06/06/23 04/05/24 [Hydrocodone/Acetaminophen 10-300 mg] Cholecalciferol [Vitamin D3 (25 50 mcg PO DAILY 12/14/23 04/05/24 Mcg = 1000 Iu)] Omeprazole [PriLOSEC] 40 mg PO DAILY PRN 12/14/23 04/05/24 Albuterol Inhaler [Ventolin Hfa 2 puff INHALATION RT-QID PRN 01/20/24 04/05/24 Inhaler] Metoprolol Tartrate [Lopressor] 12.5 mg PO BID PRN 01/20/24 04/05/24 Previous Rx's Medication Instructions Recorded Spiriva Respimat 1.25mcg/Actuation 2 puff INHALATION RT-HS #0 09/01/22 Mist Amiodarone [Cordarone] 200 mg PO DAILY #30 tab 09/11/23 Apixaban [Eliquis] 5 mg PO BID 30 Days #60 tab 09/11/23 Budesonide-Formot 160-4.5 Mcg 2 puff INHALATION RT-BID #1 each 01/25/24 [Symbicort 160-4.5 Mcg Inhaler] Allergies Allergy/AdvReac Type Severity Reaction Status Date / Time Penicillins Allergy Dyspnea & Verified 04/05/24 07:23 Hives all over Review of Systems ROS Statement: Those systems with pertinent positive or pertinent negative responses have been documented in the HPI. ROS Other: All systems not noted in ROS Statement are negative. Past Medical History Past Medical History: Atrial Fibrillation, Coronary Artery Disease (CAD), Cancer, Chest Pain / Angina, COPD, Hyperlipidemia, Hypertension, Myocardial Infarction (MD) Additional Past Medical History / Comment(s): SVT with chest pain/palpitations-chemically converted(2023), lung cancer with chemo and radiation Last Myocardial Infarction Date:: 2017 History of Any Multi-Drug Resistant Organisms: MRSA Date of last positivie culture/infection: 12/23/2013 MDRO Source:: Face Past Surgical History: Heart Catheterization With Stent Additional Past Surgical History / Comment(s): I&D of Right inframandibular abscess. 3 cardiac stents, bronchoscopy for abscess Past Anesthesia/Blood Transfusion Reactions: No Reported Reaction Additional Past Anesthesia/Blood Transfusion Reaction / Comment(s): platelet transfusions with no reaction r/t chemo Date of Last Stent Placement:: 2017 Past Psychological History: No Psychological Hx Reported Smoking Status: Current some day smoker Past Alcohol Use History: None Reported Past Drug Use History: None Reported - Past Family History Father Family Medical History: No Reported History Additional Family Medical History / Comment(s): Father of "natural causes" at the age of 79yrs. Mother Family Medical History: COPD, Coronary Artery Disease (CAD) Additional Family Medical History / Comment(s): Mother is 76yrs old. She has had several MIs, 6 cardiac stents and a 4 vessel CABG. General Exam General appearance: alert, in distress, cachectic Head exam: Present: atraumatic, normocephalic, normal inspection Eye exam: Present: normal appearance, PERRL, EOMI. Absent: scleral icterus, conjunctival injection, periorbital swelling ENT exam: Present: normal exam, mucous membranes moist Neck exam: Present: normal inspection. Absent: tenderness, meningismus, lymphadenopathy Respiratory exam: Present: wheezes, accessory muscle use, decreased breath sounds Cardiovascular Exam: Present: normal rhythm, tachycardia GI/Abdominal exam: Present: soft, normal bowel sounds. Absent: distended, tenderness, guarding, rebound, rigid Psychiatric exam: Present: agitated Course Vital Signs 04/04/24 04/04/24 04/04/24 21:20 21:47 21:54 Temperature 98.2 F Pulse Rate 111 H 105 H 105 H Respiratory 22 22 22 Rate Blood Pressure 119/82 O2 Sat by Pulse 99 Oximetry 04/05/24 04/05/24 04/05/24 01:03 04:10 06:31 Temperature Pulse Rate 90 86 81 Respiratory 18 20 16 Rate Blood Pressure 103/78 108/70 95/74 O2 Sat by Pulse 99 95 98 Oximetry 04/05/24 04/05/24 04/05/24 07:00 08:00 09:00 Temperature Pulse Rate 79 78 Respiratory 18 18 Rate Blood Pressure 97/70 94/67 O2 Sat by Pulse 98 97 99 Oximetry 04/05/24 04/05/24 04/05/24 10:09 11:06 11:18 Temperature Pulse Rate 79 74 76 Respiratory 20 Rate Blood Pressure 101/65 O2 Sat by Pulse 98 Oximetry 04/05/24 04/05/24 04/05/24 11:55 12:00 13:00 Temperature Pulse Rate 80 80 75 Respiratory 18 18 16 Rate Blood Pressure 96/64 99/59 97/71 O2 Sat by Pulse 99 97 97 Oximetry 04/05/24 04/05/24 04/05/24 14:59 15:09 16:08 Temperature Pulse Rate 75 78 84 Respiratory 18 Rate Blood Pressure 94/64 O2 Sat by Pulse 98 Oximetry 04/05/24 04/05/24 04/05/24 18:33 19:46 20:28 Temperature Pulse Rate 76 80 80 Respiratory 20 20 Rate Blood Pressure 100/76 103/73 O2 Sat by Pulse 97 97 Oximetry 04/05/24 04/05/24 20:37 20:40 Temperature Pulse Rate 84 81 Respiratory 20 Rate Blood Pressure 96/68 O2 Sat by Pulse 97 Oximetry Medical Decision Making - Medical Decision Making Was pt. sent in by a medical professional or institution (, PA, [employer] PLACING SUPERVISOR, urgent care, hospital, or shelter...) When possible be specific @ -No Did you speak to anyone other than the patient for history (EMS, parent, family, police, friend...)? What history was obtained from this source @ -Spoke with son for history Did you review nursing and triage notes (agree or disagree)? Why? @ -I reviewed and agree with nursing and triage notes Were old charts reviewed (outside hosp., previous admission, EMS record, old EKG, old radiological studies, urgent care reports/EKG's, shelter records)? Report findings @ -No old charts were reviewed Differential Diagnosis (chest pain, altered mental status, abdominal pain women, abdominal pain men, vaginal bleeding, weakness, fever, dyspnea, syncope, headache, dizziness, GI bleed, back pain, seizure, CVA, palpatations, mental health, musculoskeletal)? @ -Differential Dyspnea: Coronary syndrome, arrhythmia, tamponade, asthma, COPD, pulmonary embolism, pneumonia, pneumothorax, pulmonary effusion, anaphylaxis, diabetic ketoacidosis, flailed chest, pulmonary contusion, diaphragmatic rupture, anemia, neur omuscular, this is not meant to be an all-inclusive list. EKG interpreted by me (3pts min.). @ -yes, and demonstrates sinus tachycardia with a rate of 107. TX interval 140. QRS 87. QTc of 421. No acute ST segment elevations or depressions X-rays interpreted by me (1pt min.). @ -Yes which demonstrates pneumonia CT interpreted by me (1pt min.). @ -None done U/S interpreted by me (1pt. min.). @ -None done What testing was considered but not performed or refused? (CT, X-rays, U/S, labs)? Why? @ -None What meds were considered but not given or refused? Why? @ -None Did you discuss the management of the patient with other professionals (professionals i.e. , PA, [employer]ACING SUPERVISOR, lab, RT, psych nurse, social services coordinator, supervisor type disk quality control, teacher, casino surveillance officer, case consultant)? Give summary @ -Spoke with Dr. Suarez for admission Was smoking cessation discussed for >3mins.? @ -No Was critical care preformed (if so, how long)? @ -No Were there social determinants of health that impacted care today? How? (H omelessness, low income, unemployed, alcoholism, drug addiction, transportation, low edu. Level, literacy, decrease access to med. care, detention, rehab)? @ -No Was there de-escalation of care discussed even if they declined (Discuss DNR or withdrawal of care, Hospice)? DNR status @ -No What co-morbidities impacted this encounter? (DM, HTN, Smoking, COPD, CAD, Cancer, CVA, ARF, Chemo, Hep., AIDS, mental health diagnosis, sleep apnea, morbid obesity)? @ -COPD, lung cancer Was patient admitted / discharged? Hospital course, mention meds given and route, prescriptions, significant lab abnormalities, going to OR and other pertinent info. @ -Upon arrival patient seen and evaluated in trauma 1. Thorough history and physical exam was performed. Patient placed on continuous pulse ox and cardiac monitoring. Twelve-lead EKG is performed. Laboratory studies are conducted. Lactate 2.6. BNP is 2360. Viral swab is negative. Chest x-ray demonstrates possible pneumonia. Patient is administered antibiotics, Solu-Medrol, methylprednisolone and magnesium. Patient will be admitted. Spoke with Dr. Suarez for the admission. Will place pulmonology on consult Undiagnosed new problem with uncertain prognosis? @ -No Drug Therapy requiring intensive monitoring for toxicity (Heparin, Nitro, Insulin, Cardizem)? @ -No Were any procedures done? @ -No Diagnosis/symptom? @ -Acute respiratory insufficiency, chronic respiratory failure, acute exacerbation of COPD, acute pneumonia, history of lung cancer Acute, or Chronic, or Acute on Chronic? @ -Acute Uncomplicated (without systemic symptoms) or Complicated (systemic symptoms)? @ -Complicated Side effects of treatment? @ -No Exacerbation, Progression, or Severe Exacerbation? @ -Yes Poses a threat to life or bodily function? How? (Chest pain, USA, MD, pneumonia, PE, COPD, DKA, ARF, appy, cholecystitis, CVA, Diverticulitis, Homicidal, Suicidal, threat to staff... and all critical care pts) @ -Yes as patient is significantly short of breath - Lab Data Result diagrams: 04/07/24 07:30 04/07/24 07:30 Lab Results 04/04/24 04/04/24 04/04/24 Range/Units 21:38 21:38 21:38 WBC 6.8 (3.8-10.6) k/uL RBC 3.10 L (4.30-5.90) m/uL Hgb 9.0 L (13.0-17.5) gm/dL Hct 29.5 L (39.0-53.0) % MCV 95.0 (80.0-100.0) fL MCH 29.1 (25.0-35.0) pg MCHC 30.7 L (31.0-37.0) g/dL RDW 23.2 H (11.5-15.5) % Plt Count 157 (150-450) k/uL MPV 10.0 Neutrophils % 86 % Lymphocytes % 6 % Monocytes % 6 % Eosinophils % 0 % Basophils % 0 % Neutrophils # 5.8 (1.3-7.7) k/uL Lymphocytes # 0.4 L (1.0-4.8) k/uL Monocytes # 0.4 (0-1.0) k/uL Eosinophils # 0.0 (0-0.7) k/uL Basophils # 0.0 (0-0.2) k/uL Hypochromasia Marked Poikilocytosis Slight Anisocytosis Moderate Macrocytosis Moderate PT 11.4 (10.0-12.5) sec INR 1.0 (<1.2) APTT 27.3 (22.0-30.0) sec Sodium 135 L (137-145) mmol/L Potassium 3.7 (3.5-5.1) mmol/L Chloride 96 L (98-107) mmol/L Carbon Dioxide 28 (22-30) mmol/L Anion Gap 11 mmol/L BUN 17 (9-20) mg/dL Creatinine 0.65 L (0.66-1.25) mg/dL Est GFR (CKD-EPI)AfAm >90 (>60 ml/min/1.73 sqM) Est GFR (CKD-EPI)NonAf >90 (>60 ml/min/1.73 sqM) Glucose 115 H (74-99) mg/dL Lactic Ac Sepsis Rflx Plasma Lactic Acid Eugene (0.7-2.0) mmol/L Calcium 8.7 (8.4-10.2) mg/dL Magnesium 2.0 (1.6-2.3) mg/dL Total Bilirubin 1.1 (0.2-1.3) mg/dL AST 21 (17-59) U/L ALT 18 (4-49) U/L Alkaline Phosphatase 93 (38-126) U/L Troponin I (0.000-0.034) ng/mL NT-Pro-B Natriuret Pep 2360 pg/mL Total Protein 6.0 L (6.3-8.2) g/dL Albumin 3.2 L (3.5-5.0) g/dL Influenza Type A (PCR) (Not Detectd) Influenza Type B (PCR) (Not Detectd) RSV (PCR) (Not Detectd) SARS-CoV-2 (PCR) (Not Detectd) 04/04/24 04/04/24 04/04/24 Range/Units 21:38 21:38 21:38 WBC (3.8-10.6) k/uL RBC (4.30-5.90) m/uL Hgb (13.0-17.5) gm/dL Hct (39.0-53.0) % MCV (80.0-100.0) fL MCH (25.0-35.0) pg MCHC (31.0-37.0) g/dL RDW (11.5-15.5) % Plt Count (150-450) k/uL MPV Neutrophils % % Lymphocytes % % Monocytes % % Eosinophils % % Basophils % % Neutrophils # (1.3-7.7) k/uL Lymphocytes # (1.0-4.8) k/uL Monocytes # (0-1.0) k/uL Eosinophils # (0-0.7) k/uL Basophils # (0-0.2) k/uL Hypochromasia Poikilocytosis Anisocytosis Macrocytosis PT (10.0-12.5) sec INR (<1.2) APTT (22.0-30.0) sec Sodium (137-145) mmol/L Potassium (3.5-5.1) mmol/L Chloride (98-107) mmol/L Carbon Dioxide (22-30) mmol/L Anion Gap mmol/L BUN (9-20) mg/dL Creatinine (0.66-1.25) mg/dL Est GFR (CKD-EPI)AfAm (>60 ml/min/1.73 sqM) Est GFR (CKD-EPI)NonAf (>60 ml/min/1.73 sqM) Glucose (74-99) mg/dL Lactic Ac Sepsis Rflx Plasma Lactic Acid Eugene 2.6 H* (0.7-2.0) mmol/L Calcium (8.4-10.2) mg/dL Magnesium (1.6-2.3) mg/dL Total Bilirubin (0.2-1.3) mg/dL AST (17-59) U/L ALT (4-49) U/L Alkaline Phosphatase (38-126) U/L Troponin I <0.012 (0.000-0.034) ng/mL NT-Pro-B Natriuret Pep pg/mL Total Protein (6.3-8.2) g/dL Albumin (3.5-5.0) g/dL Influenza Type A (PCR) Not Detected (Not Detectd) Influenza Type B (PCR) Not Detected (Not Detectd) RSV (PCR) Not Detected (Not Detectd) SARS-CoV-2 (PCR) Not Detected (Not Detectd) 04/04/24 Range/Units 22:07 WBC (3.8-10.6) k/uL RBC (4.30-5.90) m/uL Hgb (13.0-17.5) gm/dL Hct (39.0-53.0) % MCV (80.0-100.0) fL MCH (25.0-35.0) pg MCHC (31.0-37.0) g/dL RDW (11.5-15.5) % Plt Count (150-450) k/uL MPV Neutrophils % % Lymphocytes % % Monocytes % % Eosinophils % % Basophils % % Neutrophils # (1.3-7.7) k/uL Lymphocytes # (1.0-4.8) k/uL Monocytes # (0-1.0) k/uL Eosinophils # (0-0.7) k/uL Basophils # (0-0.2) k/uL Hypochromasia Poikilocytosis Anisocytosis Macrocytosis PT (10.0-12.5) sec INR (<1.2) APTT (22.0-30.0) sec Sodium (137-145) mmol/L Potassium (3.5-5.1) mmol/L Chloride (98-107) mmol/L Carbon Dioxide (22-30) mmol/L Anion Gap mmol/L BUN (9-20) mg/dL Creatinine (0.66-1.25) mg/dL Est GFR (CKD-EPI)AfAm (>60 ml/min/1.73 sqM) Est GFR (CKD-EPI)NonAf (>60 ml/min/1.73 sqM) Glucose (74-99) mg/dL Lactic Ac Sepsis Rflx Y Plasma Lactic Acid Eugene (0.7-2.0) mmol/L Calcium (8.4-10.2) mg/dL Magnesium (1.6-2.3) mg/dL Total Bilirubin (0.2-1.3) mg/dL AST (17-59) U/L ALT (4-49) U/L Alkaline Phosphatase (38-126) U/L Troponin I (0.000-0.034) ng/mL NT-Pro-B Natriuret Pep pg/mL Total Protein (6.3-8.2) g/dL Albumin (3.5-5.0) g/dL Influenza Type A (PCR) (Not Detectd) Influenza Type B (PCR) (Not Detectd) RSV (PCR) (Not Detectd) SARS-CoV-2 (PCR) (Not Detectd) Disposition Clinical Impression: Acute respiratory insufficiency, Pneumonia, CHF (congestive heart failure), COPD exacerbation, Lung cancer, Anemia associated with chemotherapy, Severe protein-calorie malnutrition Disposition: ADMITTED IP TO THIS [facility] Condition: Stable Is patient prescribed a controlled substance at d/c from ED?: No Time of Disposition: 00:10 Decision to Admit Reason: Admit from EC Decision Date: 04/05/24 Decision Time: 00:11
[2024-04-05] MEDS ORDERED: ONDANSETRON 4 MG/2 ML VIAL IVP PRN (00:11)
[2024-04-05] MEDS ORDERED: NALOXONE 0.4 MG/ML 1 ML VIAL IV PRN (00:11)
[2024-04-05] MEDS ORDERED: PNEUMONIA PROTOCOL UTILIZED 1 EACH MISC PO PRN (00:14)
[2024-04-05] MEDS: CEFEPIME 2 GM in SODIUM CHLORIDE 0.9% 100 ML IVPB STA (01:02)
[2024-04-05] MEDS: AZITHROMYCIN 500 MG in SODIUM CHLORIDE 0.9% 250 ML IVPB STA (02:33)
[2024-04-05 02:56] LABS: VBG PH 7.55 (7.31-7.41)
[2024-04-05] MEDS ORDERED: RX INFO: IV CONTRAST WAS GIVEN 1 EACH MISC MISCELLANE PRN (04:14)
[2024-04-05] MEDS: METOPROLOL TARTRATE 12.5 MG TAB PO SCH (04:44)
[2024-04-05] MEDS: AMIODARONE 200 MG TAB PO SCH (04:45)
--- NOTE | 2024-04-05 05:03 | P.CNPUL ---
History of Present Illness Consult date: 04/05/24 Requesting physician: Simi Cha Chief complaint: Shortness of breath, cough History of present illness: Patient is a 63-year-old male with past medical history significant for COPD, lung cancer, hypertension, hyperlipidemia, CAD with previous PCI/stents, ischemic cardiomyopathy, and atrial fibrillation anticoagulated on Eliquis. Patient is known to have metastatic non-small cell lung cancer. His oncologist is Dr. Hoyos. Treated in the past with chemo/radiation, and patient is currently on systemic therapy, 2 weeks on 1 week off. Of note, patient has had multiple recent hospitalizations, as well as, recent bronchoscopy with airway examination and BAL on January 23. Washing was positive for MSSA. More recently on 03/13/2024, patient was treated for right upper lobe pneumonia, possibly postobstructive, on an outpatient basis with a course of Levaquin by Dr. Kumar. Patient presents emergency department late last night with a chief complaint of shortness of breath. Associated productive cough with yellow sputum production. Workup in the emergency department including a chest x-ray showing worsening multifocal airspace disease particularly in the right middle/upper lung zones as well as left perihilar region. This likely represents disease progression, with possible superimposed infectious process. CBC: WBC count of 6.8, hemoglobin 9, platelets 157. CMP: Sodium 135, potassium 3.7, chloride 96, serum bicarb 28, BUN 17, creatinine 0.65, glucose 115. Lactic was 2.6 and is down to 1. Tro ponin less than 0.012. NT proBNP 2360. EKG: Sinus tachycardia, rate 107 bpm, no acute ST segment elevations. Viral screen negative for influenza, RSV, COVID. Patient was placed on empiric antibiotics in the ED in the form of azithromycin and cefepime. Patient currently being evaluated in the emergency department. He is on room air. Nondistressed. He has been coughing up clear to yellow phlegm into a bottle. Denies sick contacts. Denies any fever/chills, hemoptysis, chest pain. Does report worsening lower extremity swelling. Appears the patient flipping in and out of atrial fibrillation with rapid ventricular response. He has known history of atrial fibrillation, and his cardiac medications are yet to be restarted. Denies chest pain, heart palpitations, lightheadedness/syncopal events, orthopnea, PND. Most recent available echocardiogram from 09/06/2023 demonstrating a preserved ejection fraction. Current most recent vital signs: Temperature 98.2 F, heart rate 90 bpm, blood pressure 103/78 mmHg, nontachypneic SpO2 reading 99% on room air. Review of Systems Constitutional: Reports poor appetite, Reports weight loss, Denies chills, Denies fever, Denies weight gain Ears, nose, mouth and throat: Denies epistaxis, Denies nasal congestion, Denies nasal discharge, Denies post-nasal drip, Denies sinus pain, Denies sinus pressure, Denies sore throat Cardiovascular: Reports leg edema, Reports orthopnea, Denies lightheadedness, Denies palpitations, Denies paroxysmal nocturnal dyspnea, Denies syncope Respiratory: Reports congestion, Reports cough, Reports cough with sputum, Reports dyspnea, Reports wheezing, Denies home oxygen Gastrointestinal: Reports loss of appetite, Denies abdominal pain, Denies constipation, Denies diarrhea, Denies nausea, Denies vomiting Genitourinary: Denies dysuria Musculoskeletal: Denies limitation of motion Integumentary: Denies rash Neurological: Denies seizures, Denies syncope Psychiatric: Denies anxiety, Denies depression Constitutional: Reports fatigue, Reports poor appetite, Reports weight loss, Denies chills, Denies fever, Denies weight gain Ears, nose, mouth and throat: Reports sore throat, Denies headache, Denies nasal congestion, Denies nasal discharge, Denies post-nasal drip, Denies sinus pain, Denies sinus pressure Cardiovascular: Reports dyspnea on exertion, Reports leg edema, Denies chest pain, Denies orthopnea, Denies palpitations, Denies paroxysmal nocturnal dyspnea, Denies syncope Respiratory: Reports as per HPI Gastrointestinal: Denies abdominal pain, Denies constipation, Denies diarrhea, Denies nausea, Denies vomiting Genitourinary: Denies dysuria Musculoskeletal: Denies limitation of motion Integumentary: Denies rash, Denies wounds Neurological: Denies balance difficulties, Denies head injury, Denies headaches, Denies memory loss, Denies numbness, Denies paralysis, Denies paresthesias, Denies seizures, Denies syncope, Denies visual changes Psychiatric: Denies anxiety, Denies depression Past Medical History Past Medical History: Atrial Fibrillation, Coronary Artery Disease (CAD), Cancer, Chest Pain / Angina, COPD, Hyperlipidemia, Hypertension, Myocardial Infarction ([place]) Additional Past Medical History / Comment(s): SVT with chest pain/palpitations- chemically converted(2023), lung cancer with chemo and radiation Last Myocardial Infarction Date:: 2017 History of Any Multi-Drug Resistant Organisms: MRSA Date of last positivie culture/infection: 12/23/2013 MDRO Source:: Face Past Surgical History: Heart Catheterization With Stent Additional Past Surgical History / Comment(s): I&D of Right inframandibular abscess. 3 cardiac stents, bronchoscopy for abscess Past Anesthesia/Blood Transfusion Reactions: No Reported Reaction Additional Past Anesthesia/Blood Transfusion Reaction / Comment(s): platelet transfusions with no reaction r/t chemo Date of Last Stent Placement:: 2017 Past Psychological History: No Psychological Hx Reported Smoking Status: Current every day smoker Past Alcohol Use History: None Reported Past Drug Use History: None Reported - Past Family History Father Family Medical History: No Reported History Additional Family Medical History / Comment(s): Father of "natural causes" at the age of 79yrs. Mother Family Medical History: COPD, Coronary Artery Disease (CAD) Additional Family Medical History / Comment(s): Mother is 76yrs old. She has had several MIs, 6 cardiac stents and a 4 vessel CABG. Medications and Allergies Home Medications Medication Instructions Recorded Confirmed Type Atorvastatin [Lipitor] 80 mg PO HS 03/04/21 04/05/24 History Spiriva Respimat 1.25mcg/Actuation 2 puff INHALATION RT-HS #0 09/01/22 04/05/24 Rx Mist Hydrocodone/Acetaminophen 1 tab PO QID 06/06/23 04/05/24 History [Hydrocodone/Acetaminophen 10-300 mg] Amiodarone [Cordarone] 200 mg PO DAILY #30 tab 09/11/23 04/05/24 Rx Apixaban [Eliquis] 5 mg PO BID 30 Days #60 tab 09/11/23 04/05/24 Rx Cholecalciferol [Vitamin D3 (25 50 mcg PO DAILY 12/14/23 04/05/24 History Mcg = 1000 Iu)] Omeprazole [PriLOSEC] 40 mg PO DAILY PRN 12/14/23 04/05/24 History Albuterol Inhaler [Ventolin Hfa 2 puff INHALATION RT-QID PRN 01/20/24 04/05/24 History Inhaler] Metoprolol Tartrate [Lopressor] 12.5 mg PO BID PRN 01/20/24 04/05/24 History Budesonide-Formot 160-4.5 Mcg 2 puff INHALATION RT-BID #1 each 01/25/24 04/05/24 Rx [Symbicort 160-4.5 Mcg Inhaler] Allergies Allergy/AdvReac Type Severity Reaction Status Date / Time Penicillins Allergy Dyspnea & Verified 04/05/24 07:23 Hives all over Physical Exam Vitals: Vital Signs Temp Pulse Resp BP Pulse Ox 04/05/24 01:03 90 18 103/78 99 04/04/24 21:54 105 H 22 04/04/24 21:47 105 H 22 04/04/24 21:20 98.2 F 111 H 22 119/82 99 Intake and Output 04/04/24 04/04/24 04/05/24 14:59 22:59 06:59 Other: Weight 61.235 kg GENERAL EXAM: Alert, 63-year-old male, comfortable in no apparent distress. HEAD: Normocephalic and atraumatic EYES: Normal reaction of pupils, equal size. NOSE: Clear with pink turbinates. THROAT: No erythema or exudates. NECK: No masses, no JVD. CHEST: No chest wall deformity. LUNGS: Equal air entry with scattered rhonchi. On room air. No conversational dyspnea or accessory muscle use.. CVS: S1 and S2 normal with no audible murmur, regular rhythm. No extra heart sounds ABDOMEN: No hepatosplenomegaly, active bowel sounds, no guarding or rigidity. SPINE: No scoliosis or deformity SKIN: No rashes CENTRAL NERVOUS SYSTEM: No focal deficits, tone is normal in all 4 extremities. EXTREMITIES: There is 2+ bilateral lower extremity edema. Extremities warm, no cyanosis. Peripheral pulses are intact. Digital clubbing noted. Results - Laboratory Findings CBC and BMP: 04/05/24 09:57 04/05/24 09:57 PT/INR, D-dimer PT 11.4 sec (10.0-12.5) 04/04/24 21:38 INR 1.0 (<1.2) 04/04/24 21:38 Abnormal lab findings: Abnormal Labs 04/04/24 04/04/24 04/04/24 21:38 21:38 21:38 RBC 3.10 L Hgb 9.0 L Hct 29.5 L MCHC 30.7 L RDW 23.2 H Lymphocytes # 0.4 L Sodium 135 L Chloride 96 L Creatinine 0.65 L Glucose 115 H Plasma Lactic Acid Eugene 2.6 H* Total Protein 6.0 L Albumin 3.2 L - Diagnostic Findings Chest x-ray: image reviewed Assessment and Plan Assessment: Acute on chronic shortness of breath, chest x-ray showing worsening multifocal airspace disease particularly in the right middle/upper lung zones, as well as, left perihilar region. This likely represents disease progression, superimposed infectious process is not excluded. Recent bronchoscopy, January 23, negative for cytology and microbiology positive for MSSA Metastatic squamous cell carcinoma of the lung, diagnosed initially 2020. Patient previously treated with chemo/radiation. Patient is restarted on systemic therapy Moderate chronic obstructive pulmonary disease, with an FEV1 51% of predicted Paroxysmal atrial fibrillation, transient bouts of RVR on monitor Bilateral lower extremity edema Chronic anemia, hemoglobin stable History of hypertension. History of hyperlipidemia. History of CAD with previous PCI/stent. History of ischemic cardiomyopathy, most recent available echocardiogram from August, showing improvement in left ventricular ejection fraction of 55 to 60% Chronic and ongoing tobacco dependence. Plan: Patient's medications, labs, chest x-ray reviewed Obtain CT of the chest Continue empiric antibiotics Obtain sputum culture Check procalcitonin level Viral screen negative for influenza A/B, RSV, COVID Continue DuoNebs, Symbicort inhaler, and IV Solu-Medrol Consult oncology Resume cardiac medications including amiodarone 200 mg p.o. daily, metoprolol 12.5 mg twice daily, and Eliquis Also, add Lasix 20 mg p.o. daily We will continue to follow I have personally seen and examined the patient, performed the documentation and the assessment and plan as written. Number of minutes spent on the visit:20 This patient is being seen in joint evaluation along with the nurse practitioner. The patient was seen and evaluated in 32 minutes. The patient is known to have metastatic squamous cell carcinoma of the lung. Based on disease progression, the patient was started on IV Gemzar on outpatient basis. His initial treatment was given to him in February 2024. The patient has already received 2 cycles and has tolerated the treatment well without any major toxicities. He has received systemic chemotherapy in the past in addition to radiation therapy. The patient is coming in with worsening shortness of breath. A CAT scan of the chest was done in the emergency department and this was examined and compared to the earlier CAT scan. There is increase in the soft tissue density throughout the mediastinum encasing the mediastinal vessels and bronchi consistent with disease progression. There is also increased in the lung masses. The patient is also on anticoagulation regarding previous history of paroxysmal atrial fibrillation. Prognosis remains poor based above-mentioned comorbidities. Will ask oncology to reevaluate the patient. Prognosis poor based above-mentioned comorbidities. Time with Patient: Greater than 30
--- NOTE | 2024-04-05 05:56 | P.HPIM ---
History of Present Illness H&P Date: 04/04/24 Patient is a 63-year-old male with past medical history significant for SCC lung CA on chemotherapy, COPD with no home O2, CAD with stents x 3, A-fib on Eliquis, hypertension, hyperlipidemia presents to the emergency department for shortness of breath. States that this cough is going on for a while but has worsened over the last couple of days. He reports a yellow/brownish colored sputum. He does report a few episodes of emesis due to coughing so much. He also reports bilateral lower extremity edema that has improved over the last few days, he reports compliance with his Lasix. He reports that he is still smoking but has decreased to less than half a pack per day. He denies fever/chills, nausea/vomiting, chest pain, dyspnea, headaches. Initial vitals: BP 119/82, VT 111, RR 22, 99% on room air, 98.2 F Initial labs: WBC 6.8, hemoglobin 9, platelets 157, sodium 135, potassium 3.7, chloride 96, CO2 28, BUN 17, creatinine 0.65, lactic acid 2.6, troponin x 1 < 0.012 Initial EKG: Sinus tachycardia with ventricular rate of 107 bpm, no ST segment changes Initial chest x-ray: Moderate amount of airspace opacities in both lungs, concentrated in the right middle/upper lung zones and left perihilar regions, suggest pneumonia, worse than on the prior study ED documentation reviewed. Given DuoNeb x 1, Solu-Medrol IV x 1 Review of Systems Pertinent positives and negatives as discussed in HPI, a complete review of systems was performed and all other systems are negative. Past Medical History Past Medical History: Atrial Fibrillation, Coronary Artery Disease (CAD), Cancer, Chest Pain / Angina, COPD, Hyperlipidemia, Hypertension, Myocardial Infarction ([place]) Additional Past Medical History / Comment(s): SVT with chest pain/palpitations- chemically converted(2023), lung cancer with chemo and radiation Last Myocardial Infarction Date:: 2017 History of Any Multi-Drug Resistant Organisms: MRSA Date of last positivie culture/infection: 12/23/2013 MDRO Source:: Face Past Surgical History: Heart Catheterization With Stent Additional Past Surgical History / Comment(s): I&D of Right inframandibular abscess. 3 cardiac stents, bronchoscopy for abscess Past Anesthesia/Blood Transfusion Reactions: No Reported Reaction Additional Past Anesthesia/Blood Transfusion Reaction / Comment(s): platelet transfusions with no reaction r/t chemo Date of Last Stent Placement:: 2017 Past Psychological History: No Psychological Hx Reported Smoking Status: Current every day smoker Past Alcohol Use History: None Reported Past Drug Use History: None Reported - Past Family History Father Family Medical History: No Reported History Additional Family Medical History / Comment(s): Father of "natural causes" at the age of 79yrs. Mother Family Medical History: COPD, Coronary Artery Disease (CAD) Additional Family Medical History / Comment(s): Mother is 76yrs old. She has had several MIs, 6 cardiac stents and a 4 vessel CABG. Medications and Allergies Home Medications Medication Instructions Recorded Confirmed Type Atorvastatin [Lipitor] 80 mg PO HS 03/04/21 01/27/24 History Spiriva Respimat 1.25mcg/Actuation 2 puff INHALATION RT-HS #0 09/01/22 01/27/24 Rx Mist Hydrocodone/Acetaminophen 1 tab PO QID 06/06/23 01/27/24 History [Hydrocodone/Acetaminophen 10-300 mg] Amiodarone [Cordarone] 200 mg PO DAILY #30 tab 09/11/23 01/27/24 Rx Apixaban [Eliquis] 5 mg PO BID 30 Days #60 tab 09/11/23 01/27/24 Rx Cholecalciferol [Vitamin D3 (25 50 mcg PO DAILY 12/14/23 01/27/24 History Mcg = 1000 Iu)] Omeprazole [PriLOSEC] 40 mg PO DAILY PRN 12/14/23 01/27/24 History Albuterol Inhaler [Ventolin Hfa 2 puff INHALATION RT-QID PRN 01/20/24 01/27/24 History Inhaler] Metoprolol Tartrate [Lopressor] 12.5 mg PO BID PRN 01/20/24 01/27/24 History Amoxic-Pot Clav 875-125Mg 1 tab PO Q12HR 7 Days #14 tab 01/25/24 01/27/24 Rx [Augmentin 875-125] Budesonide-Formot 160-4.5 Mcg 2 puff INHALATION RT-BID #1 each 01/25/24 01/27/24 Rx [Symbicort 160-4.5 Mcg Inhaler] guaiFENesin [Mucinex] 1,200 mg PO Q12HR PRN #60 tab 01/25/24 01/27/24 Rx Allergies Allergy/AdvReac Type Severity Reaction Status Date / Time Penicillins Allergy Dyspnea & Verified 04/04/24 21:27 Hives all over Physical Exam Vitals: Vital Signs Temp Pulse Resp BP Pulse Ox 04/04/24 21:54 105 H 22 04/04/24 21:47 105 H 22 04/04/24 21:20 98.2 F 111 H 22 119/82 99 Intake and Output 04/04/24 04/04/24 04/05/24 14:59 22:59 06:59 Other: Weight 61.235 kg Vital signs reviewed General: No acute distress, appears stated age, cachectic Derm: Warm, dry, intact, no cyanosis Head: Atraumatic, normocephalic, symmetric Eyes: EOMI, anicteric sclera, PERRL Ears: Normal appearing, no external lesions, hearing intact Nose: Normal appearing, no external lesions Mouth: No lip lesion, mucus membranes moist, no tonsilar hypertrophy or exudate Neck: Supple, without lesions, trachea midline Cardiovascular: S1-S2 regular, no murmur, 2+ pitting edema bilateral lower extremity to the knee Lungs: Diffuse rhonchi, no accessory muscle use Abdominal: Soft, non-tender to palpation, bowel sounds present Extremities: Muscle strength 3/5 in all extremities, radial pulses 2+ bilateral, posterior tibial pulses 1+ bilateral Neuro: Alert, oriented x 4, gross neurological examination did not reveal any focal deficits. Cranial nerves II to XII grossly intact. Psych: Appropriate affect and mood Results CBC & Chem 7: 04/04/24 21:38 04/04/24 21:38 Labs: Abnormal Lab Results - Last 24 Hours (Table) 04/04/24 04/04/24 04/04/24 Range/Units 21:38 21:38 21:38 RBC 3.10 L (4.30-5.90) m/uL Hgb 9.0 L (13.0-17.5) gm/dL Hct 29.5 L (39.0-53.0) % MCHC 30.7 L (31.0-37.0) g/dL RDW 23.2 H (11.5-15.5) % Lymphocytes # 0.4 L (1.0-4.8) k/uL Sodium 135 L (137-145) mmol/L Chloride 96 L (98-107) mmol/L Creatinine 0.65 L (0.66-1.25) mg/dL Glucose 115 H (74-99) mg/dL Plasma Lactic Acid Eugene 2.6 H* (0.7-2.0) mmol/L Total Protein 6.0 L (6.3-8.2) g/dL Albumin 3.2 L (3.5-5.0) g/dL Thrombosis Risk Factor Assmnt - DVT/VTE Prophylaxis DVT/VTE Prophylaxis: Pharmacologic Prophylaxis ordered - Choose All That Apply Each Factor Represents 1 point: Abnormal pulmonary function (COPD) Each Risk Factor Represents 2 Points: Age 61-74 years, Malignancy Thrombosis Risk Factor Assessment Total Risk Factor Score: 5 Thrombosis Risk Factor Assessment Level: High Risk Assessment and Plan Assessment: Patient is a 63-year-old male with past medical history significant for SCC lung CA on chemo, COPD with no home O2, CAD with stents x 3, A-fib on Eliquis, hypertension, hyperlipidemia admitted for acute COPD exacerbation. Plan: Active #. Acute COPD exacerbation #. Suspected pneumonia #. Productive cough Chest x-ray: Moderate amount of airspace opacities in both lungs, concentrated in the right middle/upper lung zones and left perihilar regions, suggest pneumonia, worse than on the prior study Continue with DuoNebs 4 times daily and as needed Continue with Solu-Medrol IV 40 mg IVP q12 Continue home Symbicort Obtain procalcitonin, consider discontinuing antibiotics if negative Obtain blood culture Obtain sputum culture Obtain Legionella antigen and culture Monitor CBC Continue azithromycin 500 mg IV daily Continue cefepime 2 g IV every 8 hours Benzonatate 100 mg 3 times daily as needed for cough Pulmonology consulted Chronic #. SCC of the lung #. A-fib on anticoagulation Continue with Eliquis 5 mg p.o. twice daily #. Hypertension #. CAD #. Hyperlipidemia Resume home meds once confirmed severe protein calorie malnutrition encourage PO intake ensure TID Echo from August 2023 LVEF 55% DVT prophylaxis: Eliquis 5 mg p.o. twice daily GI prophylaxis: Protonix 40 mg daily The patient is admitted with an anticipated less than 2 midnight stay for evaluation of COPD exacerbation. CODE STATUS: Full code Anticipated discharge place: Pending clinical course I have seen and evaluated the patient today. I Discussed the case with the resident and agree with the resident's findings I edited the assessment and plan as necessary as documented in the resident's note.
[2024-04-05] MEDS: PANTOPRAZOLE 40 MG TABLET PO SCH (07:46)
[2024-04-05] MEDS: CEFEPIME 2 GM in SODIUM CHLORIDE 0.9% 100 ML IVPB SCH (07:47)
[2024-04-05] MEDS: IPRATROPIUM-ALBUTEROL 3 ML NEB INHALATION SCH (07:55)
[2024-04-05] MEDS: SYMBICORT 160-4.5 MCG INHALER INHALATION SCH (07:55)
--- NOTE | 2024-04-05 09:26 | CT ---
EXAMINATION TYPE: CT chest w con DATE OF EXAM: 04/05/2024 8:53 AM COMPARISON: None. CLINICAL INDICATION: Male, 63 years old with history of Hx lung cancer, Pt coming to the ER for a cou gh. Pt states that his son brought him here for his cough. Pt states that he is coughing up phlegm. H x of COPD and bilateral lung CA. TECHNIQUE: Axial images were obtained at 5 mm thick sections. Reconstructed images are reviewed on Feedback computer in the coronal plane. Contrast used:80 mL of Isovue 300 with IV Contrast, (none if empty) Oral contrast used: (none if empty) CT DLP: 190.3 mGycm, Automated exposure control for dose reduction was used. FINDINGS: Portion of the thyroid visualized is normal. Minimal pleural effusions are present. There is a faint density posterior left lung measures 0.8 cm. Scattered infiltrates are present bilaterally. Soft tissue density encases the perihilar regions. Di ffuse increased lung markings are through the right lung. Largest cavitation increased in size in the right suprahilar region. Findings are progressive from comparison study. There is a 1.4 cm paratracheal mass with some slightly subtle hypodense center may be a necrotic lymp h node. Image 15 soft tissue mass appears to infiltrate the mediastinum demonstrates subcarinal regio n and in the perihilar regions. The ascending aorta diameter at the level of the main pulmonary jaquan ry is 3.4 cm. The main pulmonary artery diameter at the bifurcation is 2.9 cm. There is a moderate-s ized pericardial effusion present. Limited CT sections are obtained through the upper abdomen. Abdomen is essentially unremarkable. IMPRESSION: 1. Increasing soft tissue density through the mediastinum encasing vessels and bronchi. 2. Increasing lung findings suspicious for metastatic disease. 3. Increasing pericardial effusion. [facility], , 04/05/2024 9:24 AM
[2024-04-05] MEDS: methylPREDNISolone SOD SUCCI 40 MG/ML 1 ML VIAL IV SCH (09:31)
[2024-04-05] MEDS: APIXABAN 5 MG TAB PO SCH (09:31)
[2024-04-05] MEDS: HYDROcodone/APAP 10-325MG 1 EACH TAB PO SCH (09:53)
[2024-04-05] MEDS: CHOLECALCIFEROL 25 MCG (1000 IU) TABLET PO SCH (10:03)
[2024-04-05] MEDS: FUROSEMIDE 20 MG TAB PO SCH (10:43)
[2024-04-05 10:47] LABS: Anisocytosis Moderate; HCT 30.2 % (39.0-53.0); HGB 9.1 gm/dL (13.0-17.5); Hypochromasia Marked; MCH 29.4 pg (25.0-35.0); MCHC 30.3 g/dL (31.0-37.0); MCV 96.8 fL (80.0-100.0); Macrocytosis Moderate; Mean Platelet Volume 9.4; Platelet Count 170 k/uL (150-450); Poikilocytosis Slight; RBC 3.11 m/uL (4.30-5.90); WBC 6.2 k/uL (3.8-10.6)
[2024-04-05 11:08] LABS: ALT 16 U/L (4-49); AST 17 U/L (17-59); African American GFR (CKD) >90 (>60 ml/min/1.73 sqM); Albumin 2.7 g/dL (3.5-5.0); Alkaline Phosphatase 81 U/L (38-126); Anion Gap 9 mmol/L; Blood Urea Nitrogen 20 mg/dL (9-20); Calcium 8.2 mg/dL (8.4-10.2); Carbon Dioxide 27 mmol/L (22-30); Chloride 97 mmol/L (98-107); Glucose 164 mg/dL (74-99); Magnesium 2.3 mg/dL (1.6-2.3); Non-African American GFR(CKD) >90 (>60 ml/min/1.73 sqM); Sodium 133 mmol/L (137-145); Total Bilirubin 0.6 mg/dL (0.2-1.3); Total Protein 5.3 g/dL (6.3-8.2)
[2024-04-05] MEDS ORDERED: FUROSEMIDE 10 MG/ML 2 ML VIAL IV SCH (12:00)
--- NOTE | 2024-04-05 17:23 | P.PN ---
Subjective Progress Note Date: 04/05/24 Hospital course: Patient is a pleasant 63-year-old male with a past medical history of squamous cell carcinoma of lung currently undergoing chemotherapy, COPD not home oxygen dependent, CAD status post stenting, ischemic cardiomyopathy, paroxysmal atrial fibrillation on anticoagulation with Eliquis, hypertension, hyperlipidemia, and nicotine dependence.. He reports following with ssn/ssbn assistant navigator/oncologist Dr. Hoyos and states last chemotherapy treatment was 1 week ago tomorrow. He presented to the emergency department on 04/04/2024 secondary to reports of shortness of breath accompanied by worsening cough with production of yellowish-brown sputum. Upon arrival to our facility, patient underwent evaluation in the emergency department. Vital signs upon arrival showing blood pressure 119/82, heart rate 111, respiratory rate 22, temp 98.2 F, and SpO2 of 99% on room air. EKG completed showing sinus tachycardia at 107 bpm with repeat EKG showing atrial f ibrillation with RVR at 133 bpm T wave inversion in lateral leads I, aVL, V5 and V6.. Chest x-ray showing moderate amount of airspace opacities in bilateral lungs concentrated in the right middle/upper lung zones and left perihilar regions suggestive of pneumonia. Labs completed and reviewed. CBC showing normocytic anemia with hemoglobin of 9.0 chronic and at baseline. Coagulation profile normal findings. BMP showing hypochloremic hyponatremia with sodium of 135 and chloride of 96. Blood glucose 115. Lactic acid 2.6. Magnesium 2.0. Liver profile unremarkable. Troponin was negative at less than 0.012 and proBNP was 2360. Influenza A, influenza B, RSV, and COVID PCR negative. CT chest with IV contrast completed showing increasing soft tissue density throughout the mediastinum encasing vessels and bronchi, a 1.4 cm paratracheal mass with subtle hypodense center may be a necrotic lymph node versus soft tissue mass, increasing lung findings suspicious for metastatic disease and increasing pericardial effusion. Patient admitted under our services with consultation to pulmonology and oncology. Physical exam: Patient seen and fully evaluated at bedside this morning. He reports continued shortness of breath and his chronic pain to left lateral chest. He denies having any palpitations. He does report increased cough and sputum production. Has container at bedside full of copious secretions. Vital signs reviewed and stable. General: Nontoxic, no acute distress, chronically ill-appearing. Frail and emaciated Derm: Skin warm and dry, normal coloration for ethnicity. Head: Atraumatic, normocephalic and symmetric. Eyes: EOM's intact, no lid lag, and anicteric sclera Mouth: no lip lesions, mucus membranes moist Cardiovascular: regular rate and rhythm with normal S1S2, no murmur, positive posterior tibial pulses bilaterally, and cap refill < 2 seconds. Lungs: Respirations even, regular, and unlabored on supplemental oxygen. Lungs diffuse coarse rhonchi throughout with expiratory wheezes. Abdominal: soft, nontender to palpation, no guarding, no appreciable organomegaly Ext: ROM intact. No gross muscle atrophy, no edema, no contractures Neuro: Speech clear, face symmetrical and CN II-XII grossly intact with no noted focal neuro deficits Psych: Alert and oriented to person, place, time, and situation. Appropriate and pleasant affect. Assessment and Plan of Care:.. Acute hypoxic respiratory failure COPD with acute exacerbation Metastatic squamous cell carcinoma of lung Concerns for possible pneumonia in patient receiving chemotherapy -Pulmonology following, reviewed documentation in chart -Oxygenation to be administered and titrated as needed to maintain SPO2 equal to or greater than 92%. -Telemetry monitoring. -Monitor pulse-oximetry -Duonebs scheduled 4 times daily and as needed for SOB and/or wheezing -Incentive Spirometry -Steroids: Solu-Medrol 40 mg IVP every 12 hours -Antibiotics: Cefepime 2 g every 8 hours and a Zithromax 250 mg daily pending sputum culture and procalcitonin results. -Follow-up on sputum culture and blood culture results. -Urine Legionella pending results. CAD status post stenting Paroxysmal atrial fibrillation Hypertension Hyperlipidemia -Monitor vital signs and continue daily medication regimen with amiodarone 200 mg daily, Eliquis 5 mg twice daily, atorvastatin 80 mg nightly, and metoprolol 12.5 mg twice daily, Nicotine dependence -Patient reports that he is cut back significantly on smoking and declines wanting nicotine patch at this time. Data and imaging reviewed: CT chest with IV contrast completed showing increasing soft tissue density throughout the mediastinum encasing vessels and bronchi, a 1.4 cm paratracheal mass with subtle hypodense center may be a necrotic lymph node versus soft tissue mass, increasing lung findings suspicious for metastatic disease and increasing pericardial effusion. Vital signs reviewed. Blood pressure 101/65, heart rate 79, respiratory rate 20, and SpO2 of 98% on 2 L. No documentation of temperature has been updated in chart since arrival to ED. Morning labs reviewed. CBC showing stable normocytic anemia with hemoglobin of 9.1. BMP showing sodium 133 and chloride 97. Blood glucose 164. Magnesium 2.3. Liver profile unremarkable with exception of hypoalbuminemia with albumin of 2.7. CODE STATUS: Full code DVT prophylaxis: Eliquis Anticipated discharge date: Pending clinical course Anticipated discharge place: Pending clinical course Patient was seen independently by Nurse Pracitioner. This document was prepared using [employer] dictation software. 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 Tony Vazquez NP rendered care for this patient independently, reviewed the findings and plan as documented in the note above and agree with plan. I did not physically speak with or examine the patient on this date. Objective - Vital Signs Vital signs: Vital Signs Temp 98.2 F 04/04/24 21:20 Pulse 78 04/05/24 09:00 Resp 18 04/05/24 09:00 BP 94/67 04/05/24 09:00 Pulse Ox 99 04/05/24 09:00 FiO2 Intake & Output 04/04/24 04/05/24 04/05/24 18:59 06:59 18:59 Weight 61.235 kg - Labs CBC & Chem 7: 04/05/24 09:57 04/05/24 09:57 Labs: Abnormal Lab Results - Last 24 Hours (Table) 04/04/24 04/04/24 04/04/24 Range/Units 21:38 21:38 21:38 RBC 3.10 L (4.30-5.90) m/uL Hgb 9.0 L (13.0-17.5) gm/dL Hct 29.5 L (39.0-53.0) % MCHC 30.7 L (31.0-37.0) g/dL RDW 23.2 H (11.5-15.5) % Lymphocytes # 0.4 L (1.0-4.8) k/uL VBG pH (7.31-7.41) VBG pCO2 (37-51) mmHg Sodium 135 L (137-145) mmol/L Chloride 96 L (98-107) mmol/L Creatinine 0.65 L (0.66-1.25) mg/dL Glucose 115 H (74-99) mg/dL Plasma Lactic Acid Eugene 2.6 H* (0.7-2.0) mmol/L Total Protein 6.0 L (6.3-8.2) g/dL Albumin 3.2 L (3.5-5.0) g/dL 04/05/24 Range/Units 01:49 RBC (4.30-5.90) m/uL Hgb (13.0-17.5) gm/dL Hct (39.0-53.0) % MCHC (31.0-37.0) g/dL RDW (11.5-15.5) % Lymphocytes # (1.0-4.8) k/uL VBG pH 7.55 H (7.31-7.41) VBG pCO2 31 L (37-51) mmHg Sodium (137-145) mmol/L Chloride (98-107) mmol/L Creatinine (0.66-1.25) mg/dL Glucose (74-99) mg/dL Plasma Lactic Acid Eugene (0.7-2.0) mmol/L Total Protein (6.3-8.2) g/dL Albumin (3.5-5.0) g/dL
--- NOTE | 2024-04-05 18:25 | P.CONS ---
History of Present Illness - Reason for Consult Consult date: 04/05/24 NSCLC, on treatment Requesting physician: Emiliano Prescott - Chief Complaint SOB, cough - History of Present Illness Mr. Rene is a pleasant male pt of Dr. bush with extensive Oncology Hx as follows: Pt presented to ER 06/2020 with c/o of cough, hemoptysis intermittently for 7-10 days. CXR did not show any major abnormality. Recommended follow-up as an outpatient with his PCP and get a CT scan done. He did not have a PCP so, work up was delayed and he felt ok. Ultimately had a CT chest 02/02/21, showed a 8.6 x 6.8 cm soft tissue mass encasing the left hilum, contiguous with subcarinal adenopathy. This was causing mild narrowing of the left mainstem bronchus and upper lobe branches, spiculated right perihilar mass measuring 4.1 x 2.4 cm with some central cavitation, a 6 cm nodule in the right midlung, and another 3 mm nodule in the right base, 6 mm nodular density in the right upper lobe, paratracheal and subcarinal adenopathy measured 2.4 cm. Referred to Pulmonary and had bronchoscopy on 02/09/21 of the right and left upper lobes. 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 Referred to Medical Oncology. Had completion of staging with MRI, which was negative. PET scan confirmed uptake in both the right suprahilar, as well as the left hilar mass, with involvement of multiple mediastinal, hilar and subcarinal nodes. Biomarker testing showed positive PD1, with TPS 3-5%. TMB was high at 26+. He was started on immunotherapy 03/27/21. He did well for 19 cycles, then developed progression and was changed to Carbo/Gemzar starting 04/27/22. He had 4 cycles, completing those on 07/07/22. Dose was reduced with cycle 2, because of hematologic toxicity, and G-CSF was added. He was admitted after cycle 4, on 07/09/22, with lower extremity swelling not responding to Lasix, acute kidney injury, and hyperkalemia. It is felt that the patient had steroid insufficiency and was treated supportively, and was discharged on Decadron with follow-up scheduled with endocrinology outpatient. At his visit on 08/03/22 CT showed a partial re sponse, it was decided to give him a treatment break. The patient was admitted to the hospital in mid 09/05 with shortness of breath, and tachycardia. CT angiogram done during that visit was negative for PE, but noted the right-sided lung mass to be larger in size. The patient improved with treatment for pneumonia, CHF and COPD exacerbation and continued on observation. Repeat CT 11/06 showing resolution of lung opacities, and decrease in the right-sided masslike area. At his visit on 01/18/23, he reported a new right-sided headache, MRI of the brain done was negative for metastases however, imaging did show evidence of progression in the lung on the right. The patient was therefore changed to Taxotere and Cyramza, started on 02/10/23. Cyramza was then held after cycle 2, due to hemoptysis, continued on Taxotere alone. He completed cycle 4 cycle of single agent Taxotere with GCSF last given 05/26/23. Imaging did not report any areas of new/metastatic disease. Known areas of dise ase slightly larger-suspect because of infection. He had hospital admission in May, and treatment has been held since due to persisting lung infection. Case was discussed with pulmonology who agreed to hold treatment to allow pt adequate to time to recover. At his last f/u on 07/27, pt was reporting persisting right sided headache, MRI brain was repeated on 08/01, which showed no evidence of mass, acute/subacute infarct, or abnormal enchancement, with nonspecific white matter changes. Plan was for pt to begin palliative RT once cleared by pulmonology and restart single agent Taxotere s/p RT. He has completed 6 of 10 fractions. Patient restarted treatment on 09/26/23. Patient was recently treated with course of oral abx due to c/o of URI symptoms. He then underwent his last cycle of taxotere on 12/05/23 with G-CSF on 12/05, and on his f/u on 12/14/23, was complaining of increased congestion and productive cough, over the past 2-3 days, associated with markedly increased shortness of breath and weakness. He stated that his sputum was still off-white in color, but was becoming more scleroscope tester ious. He he was only able to walk a few feet without having to stop and rest, at which time he was referred to the hospital for further evaluation, and subsequently admitted. The patient was again found to have postobstructive pneumonia and slowly improved with aggressive treatment. During that admission he was evaluated by radiation oncology, and it was felt that it is likely some progression of the lung mass. Post discharge, it was recommended that he undergo palliative radiation to improve obstructive symptoms, after which systemic therapy would be changed. The patient initially did not keep his appointment with radiation oncology as he was apprehensive about radiation, but then agreed to do so after discussion with myself. He started radiation on 01/16/24, completed that 3rd week of Jan. The patient then had another course of steroids and oral antibiotics, because of ongoing symptoms of productive cough, and shortness of breath as well as chest congestion. He completed that about 3 days ago. He said that his symptoms started to get worse again after completion of his medications, including shortness of breath, wheezing, chest congestion, and cough which was intermittently productive. In the emergency room chest x- ray showed stable appearance of the lung masses. He was seen by Pulm medicine, and was felt to have COPD exacerbation, he was admitted, treated and discharged. He then started Gemzar on 02/24/24. He is status post 2 cycles, day 1 and 8. He was seen on 03/29 and was doing well. Currently admitted with persistent, progressive SOB, harsh productive cough. He denied fever, chills, N,V, chest pain, abd pain, acute changes in bowel or bladder habits. His VS are stable, CBC normal with mod anemia, CXR reports moderate amount of airspace opacities in both lungs, concentrated in the right middle/upper lung zones and left perihilar regions, suggest pneumonia, worse than on the prior study. CT of the chest with contrast done this morning, no com parison, reports minimal pleural effusions. Faint density posterior left lung 0.8 cm. Scattered infiltrates bilaterally. Soft tissue density encasing the perihilar regions. Diffuse increased lung markings through the right lung. Largest cavitation increased in size in the right suprahilar region, reporting that findings are progressive from comparison study?. 1.4 cm paratracheal mass with some slightly subtle hypodense center may be necrotic lymph node. Soft tissue mass appearing to infiltrate the mediastinum. Moderate sized pericardial effusion is present. Review of Systems 10 point ROS is neg except as stated in HPI Past Medical History Past Medical History: Atrial Fibrillation, Coronary Artery Disease (CAD), Cancer, Chest Pain / Angina, COPD, Hyperlipidemia, Hypertension, Myocardial Infarction ([place]) Additional Past Medical History / Comment(s): SVT with chest pain/palpitations- chemically converted(2023), lung cancer with chemo and radiation Last Myocardial Infarction Date:: 2017 History of Any Multi-Drug Resistant Organisms: MRSA Year Discovered:: 12/23/2013 MDRO Source:: Face Past Surgical History: Heart Catheterization With Stent Additional Past Surgical History / Comment(s): I&D of Right inframandibular abscess. 3 cardiac stents, bronchoscopy for abscess Past Anesthesia/Blood Transfusion Reactions: No Reported Reaction Additional Past Anesthesia/Blood Transfusion Reaction / Comm: platelet transfusions with no reaction r/t chemo Date of Last Stent Placement:: 2017 Past Psychological History: No Psychological Hx Reported Smoking Status: Current every day smoker Past Alcohol Use History: None Reported Past Drug Use History: None Reported - Past Family History Father Family Medical History: No Reported History Additional Family Medical History / Comment(s): Father of "natural causes" at the age of 79yrs. Mother Family Medical History: COPD, Coronary Artery Disease (CAD) Additional Family Medical History / Comment(s): Mother is 76yrs old. She has had several MIs, 6 cardiac stents and a 4 vessel CABG. Medications and Allergies Home Medications Medication Instructions Recorded Confirmed Type Atorvastatin [Lipitor] 80 mg PO HS 03/04/21 04/05/24 History Spiriva Respimat 1.25mcg/Actuation 2 puff INHALATION RT-HS #0 09/01/22 04/05/24 Rx Mist Hydrocodone/Acetaminophen 1 tab PO QID 06/06/23 04/05/24 History [Hydrocodone/Acetaminophen 10-300 mg] Amiodarone [Cordarone] 200 mg PO DAILY #30 tab 09/11/23 04/05/24 Rx Apixaban [Eliquis] 5 mg PO BID 30 Days #60 tab 09/11/23 04/05/24 Rx Cholecalciferol [Vitamin D3 (25 50 mcg PO DAILY 12/14/23 04/05/24 History Mcg = 1000 Iu)] Omeprazole [PriLOSEC] 40 mg PO DAILY PRN 12/14/23 04/05/24 History Albuterol Inhaler [Ventolin Hfa 2 puff INHALATION RT-QID PRN 01/20/24 04/05/24 History Inhaler] Metoprolol Tartrate [Lopressor] 12.5 mg PO BID PRN 01/20/24 04/05/24 History Budesonide-Formot 160-4.5 Mcg 2 puff INHALATION RT-BID #1 each 01/25/24 04/05/24 Rx [Symbicort 160-4.5 Mcg Inhaler] Allergies Allergy/AdvReac Type Severity Reaction Status Date / Time Penicillins Allergy Dyspnea & Verified 04/05/24 07:23 Hives all over Physical Exam Vitals: Vital Signs Temp Pulse Resp BP Pulse Ox 04/05/24 08:00 97 04/05/24 07:00 79 18 97/70 98 04/05/24 06:31 81 16 95/74 98 04/05/24 04:10 86 20 108/70 95 04/05/24 01:03 90 18 103/78 99 04/04/24 21:54 105 H 22 04/04/24 21:47 105 H 22 04/04/24 21:20 98.2 F 111 H 22 119/82 99 Intake and Output 04/04/24 04/05/24 04/05/24 22:59 06:59 14:59 Other: Weight 61.235 kg - Constitutional General appearance: cooperative, no acute distress, thin - EENT Eyes: anicteric sclerae, EOMI ENT: hearing grossly normal, normal oropharynx - Neck Neck: no lymphadenopathy - Respiratory Respiratory: bilateral: rhonchi - Cardiovascular Rhythm: regular Heart sounds: normal: S1, S2 Abnormal Heart Sounds: no systolic murmur, no diastolic murmur, no rub, no S3 Gallop, no S4 Gallop, no click, no other leg Peripheral Edema: bilateral: 2+ - Gastrointestinal General gastrointestinal: no absent bowel sounds, no decreased bowel sounds, no distended, no hepatomegaly, no hyperactive bowel sounds, normal bowel sounds, no organomegaly, no rigid, no scaphoid, soft, no splenomegaly, no tenderness, no umbilical hernia, no ventral hernia - Neurologic Neurologic: CNII-XII intact - Musculoskeletal Musculoskeletal: generalized weakness - Psychiatric Psychiatric: A&O x's 3, appropriate affect, intact judgment & insight Results CBC & Chem 7: 02/20/25 09:57 04/05/24 09:57 Labs: Abnormal Lab Results - Last 24 Hours (Table) 04/04/24 04/04/24 04/04/24 Range/Units 21:38 21:38 21:38 RBC 3.10 L (4.30-5.90) m/uL Hgb 9.0 L (13.0-17.5) gm/dL Hct 29.5 L (39.0-53.0) % MCHC 30.7 L (31.0-37.0) g/dL RDW 23.2 H (11.5-15.5) % Lymphocytes # 0.4 L (1.0-4.8) k/uL VBG pH (7.31-7.41) VBG pCO2 (37-51) mmHg Sodium 135 L (137-145) mmol/L Chloride 96 L (98-107) mmol/L Creatinine 0.65 L (0.66-1.25) mg/dL Glucose 115 H (74-99) mg/dL Plasma Lactic Acid Eugene 2.6 H* (0.7-2.0) mmol/L Total Protein 6.0 L (6.3-8.2) g/dL Albumin 3.2 L (3.5-5.0) g/dL 04/05/24 Range/Units 01:49 RBC (4.30-5.90) m/uL Hgb (13.0-17.5) gm/dL Hct (39.0-53.0) % MCHC (31.0-37.0) g/dL RDW (11.5-15.5) % Lymphocytes # (1.0-4.8) k/uL VBG pH 7.55 H (7.31-7.41) VBG pCO2 31 L (37-51) mmHg Sodium (137-145) mmol/L Chloride (98-107) mmol/L Creatinine (0.66-1.25) mg/dL Glucose (74-99) mg/dL Plasma Lactic Acid Eugene (0.7-2.0) mmol/L Total Protein (6.3-8.2) g/dL Albumin (3.5-5.0) g/dL Chest x-ray: report reviewed CT scan - chest: report reviewed Assessment and Plan (1) Acute exacerbation of chronic obstructive pulmonary disease Current Visit: Yes Status: Acute Priority: High Code(s): J44.1 - CHRONIC OBSTRUCTIVE PULMONARY DISEASE W (ACUTE) EXACERBATION SNOMED Code(s): 072875552 (2) Metastatic squamous cell carcinoma Current Visit: No Status: Chronic Priority: Medium Code(s): UUX2133 - SNOMED Code(s): 198877390 Plan: COPD exacerbation -Pulmonary is following with the patient. -Patient is on antibiotics as well as respiratory treatments and steroids. -Will follow his clinical course. Metastatic squamous cell carcinoma -Diagnosis and treatment history as stated in HPI. -Patient is most recently been on single agent Gemzar, status post 2 cycles, actually doing fairly well with treatment, mild hematological toxicities -Plan was for imaging after third cycle. Will reimage patient after he has been adequately treated for respiratory infection. -Further recommendations regarding prognosis and treatment plans will follow.
[2024-04-05] MEDS ORDERED: MIST INHALATION SCH (20:00)
[2024-04-05] MEDS ORDERED: SPIRIVA RESPIMAT INHALATION SCH (20:00)
[2024-04-05] MEDS: ATORVASTATIN 80 MG TAB PO SCH (21:21)
[2024-04-06] MEDS: MORPHINE SULFATE 4 MG/ML SYRINGE IV PRN (05:01)
[2024-04-06 06:06] LABS: Glucose,Whole Blood 205 mg/dL (70-110)
[2024-04-06 07:26] LABS: Anisocytosis Moderate; Basophils % (A) 0 %; Eosinophils % (A) 0 %; HCT 24.8 % (39.0-53.0); Hypochromasia Marked; Lymphocytes # (A) 0.2 k/uL (1.0-4.8); Lymphocytes % (A) 4 %; MCH 28.9 pg (25.0-35.0); MCHC 29.7 g/dL (31.0-37.0); MCV 97.3 fL (80.0-100.0); Macrocytosis Moderate; Mean Platelet Volume 9.1; Monocytes # (A) 0.2 k/uL (0-1.0); Monocytes % (A) 5 %; Neutrophils % (A) 90 %; Platelet Count 191 k/uL (150-450); Poikilocytosis Slight; RBC 2.55 m/uL (4.30-5.90); RDW 23.1 % (11.5-15.5); WBC 4.5 k/uL (3.8-10.6)
[2024-04-06 07:45] LABS: African American GFR (CKD) >90 (>60 ml/min/1.73 sqM); Anion Gap 6 mmol/L; Blood Urea Nitrogen 19 mg/dL (9-20); Calcium 8.2 mg/dL (8.4-10.2); Carbon Dioxide 29 mmol/L (22-30); Chloride 97 mmol/L (98-107); Glucose 140 mg/dL (74-99); Non-African American GFR(CKD) >90 (>60 ml/min/1.73 sqM); Potassium 4.3 mmol/L (3.5-5.1); Sodium 132 mmol/L (137-145)
--- NOTE | 2024-04-06 08:03 | XR ---
EXAMINATION TYPE: XR chest 1V portable DATE OF EXAM: 04/06/2024 6:53 AM COMPARISON: Chest radiographs from 03/14/2024, CT chest 04/05/2024 TECHNIQUE: XR chest 1V portable Portable AP radiograph of the chest. CLINICAL INDICATION:Male, 63 years old with history of pneumonia; history of lung cancer. FINDINGS: Lungs/Pleura: Similar right suprahilar cavitary lesion is seen on yesterday. There is surrounding pat nirmal airspace opacities within the right mid and upper lung. No pleural effusion or pneumothorax. Pulmonary vascularity: Unremarkable. Heart/mediastinum: Cardiomediastinal silhouette is stable with bilateral hilar prominence related to known degenerative soft tissue. Mildly prominent heart related to known pericardial effusion. Athero sclerotic calcifications are seen in the aorta. Musculoskeletal: No acute osseous pathology. IMPRESSION: 1. Similar bilateral perihilar prominence and right suprahilar cavitary lesion concerning for malign francisco/recurrence versus cavitary pneumonia. 2. Similar patchy opacities within the right upper and mid lung field representing pneumonia. [facility], , 04/06/2024 8:01 AM
[2024-04-06 08:05] LABS: HGB 7.4 gm/dL (13.0-17.5)
[2024-04-06] MEDS: AZITHROMYCIN 500 MG in SODIUM CHLORIDE 0.9% 250 ML IVPB SCH (10:01)
[2024-04-06 11:11] LABS: Glucose,Whole Blood 231 mg/dL (70-110)
[2024-04-06] MEDS ORDERED: DEXTROSE 50% SYRINGE 50 ML IVP PRN ×2 (12:11)
[2024-04-06] MEDS: INSULIN LISPRO (HumaLOG) 100 UNIT/ML 10 mL VL SQ SCH (12:58)
--- NOTE | 2024-04-06 15:26 | P.PN ---
Subjective Progress Note Date: 04/06/24 Principal diagnosis: NSCLC on treatment, SOB, heavy productive cough In f/u today pt reports decrease in cough and decrease in expectoration though he feels his lungs have mucus in them. Generalized weakness, having to use cane, SOB with activity. Swelling is confined to feet now. Legs are wrapped. Mouth is sore, hard to eat certain foods. No fever. Objective - Vital Signs Vital signs: Vital Signs Temp 97.3 F L 04/06/24 06:57 Pulse 80 04/06/24 12:24 Resp 16 04/06/24 08:05 BP 116/70 04/06/24 06:57 Pulse Ox 95 04/06/24 06:57 FiO2 Intake & Output 04/05/24 04/06/24 04/06/24 18:59 06:59 18:59 Intake Total 570 250 Output Total 200 Balance 370 250 Weight 61.235 kg 61.3 kg Intake: IV 10 10 Invasive Line 1 10 10 Oral 560 240 Output: Urine 200 Other: Voiding Method Urinal Urinal # Voids 1 - Constitutional General appearance: Present: cooperative, no acute distress, thin - EENT EENT Comment(s): gums red Eyes: Present: anicteric sclerae, EOMI, poor dentition ENT: Present: hearing grossly normal - Respiratory Respiratory: right: rhonchi, left: wheezing - Cardiovascular Rhythm: regular Heart sounds: normal: S1, S2 Abnormal Heart Sounds: Absent: systolic murmur, diastolic murmur, rub, S3 Gallop, S4 Gallop, click, other - Peripheral edema leg Peripheral Edema: bilateral: Trace foot Peripheral Edema: bilateral: 2+ - Integumentary Integumentary: Present: normal - Neurologic Neurologic: Present: CNII-XII intact - Musculoskeletal Musculoskeletal: Present: generalized weakness - Psychiatric Psychiatric: Present: A&O x's 3, appropriate affect, intact judgment & insight - Labs CBC & Chem 7: 04/06/24 06:46 04/06/24 06:46 Labs: Abnormal Lab Results - Last 24 Hours (Table) 04/06/24 04/06/24 04/06/24 Range/Units 06:05 06:46 06:46 RBC 2.55 L (4.30-5.90) m/uL Hgb 7.4 L D (13.0-17.5) gm/dL Hct 24.8 L (39.0-53.0) % MCHC 29.7 L (31.0-37.0) g/dL RDW 23.1 H (11.5-15.5) % Lymphocytes # 0.2 L (1.0-4.8) k/uL Sodium 132 L (137-145) mmol/L Chloride 97 L (98-107) mmol/L Glucose 140 H (74-99) mg/dL POC Glucose (mg/dL) 205 H (70-110) mg/dL Calcium 8.2 L (8.4-10.2) mg/dL 04/06/24 Range/Units 11:09 RBC (4.30-5.90) m/uL Hgb (13.0-17.5) gm/dL Hct (39.0-53.0) % MCHC (31.0-37.0) g/dL RDW (11.5-15.5) % Lymphocytes # (1.0-4.8) k/uL Sodium (137-145) mmol/L Chloride (98-107) mmol/L Glucose (74-99) mg/dL POC Glucose (mg/dL) 231 H (70-110) mg/dL Calcium (8.4-10.2) mg/dL Microbiology - Last 24 Hours (Table) 04/05/24 00:46 Blood Culture - Preliminary Blood 04/05/24 00:18 Gram Stain - Preliminary Sputum Sputum Culture - Preliminary - Imaging and Cardiology Chest x-ray: report reviewed CT scan - chest: report reviewed (report comparison to CT chest 12/07) Assessment and Plan (1) Acute exacerbation of chronic obstructive pulmonary disease Current Visit: Yes Status: Acute Priority: High Code(s): J44.1 - CHRONIC OBSTRUCTIVE PULMONARY DISEASE W (ACUTE) EXACERBATION SNOMED Code(s): 120356532 (2) Metastatic squamous cell carcinoma Current Visit: No Status: Chronic Priority: Medium Code(s): RXX4570 - SNOMED Code(s): 859143001 Plan: COPD exacerbation -Less cough and expectoration today. No fevers -Pulmonary is following with the patient. -On antibiotics as well as respiratory treatments and steroids. -Will follow his clinical course. -CT chest report reviewed, compared to report from Nov 2023. No suspecting disease progression or new disease at this time. Plans for 1 more cycle of treatment after resolution of resp infection then CT with comparison. Pt agree with plan. -ECHO ordered to assess the moderate pericardial effusion reported in the CT chest Metastatic squamous cell carcinoma -Diagnosis and treatment history as stated in consult. -Patient is most recently been on single agent Gemzar, status post 2 cycles, actually doing fairly well with treatment, mild hematological toxicities -Plan was for imaging after third cycle. -Further recommendations regarding prognosis and treatment plans will follow. attests: I have seen and examined pt, performed H&P, developed impression and plan of care. Discussed with dictator. Agree with documentation, dictated as a scribe.
--- NOTE | 2024-04-06 15:35 | P.PN ---
Subjective Progress Note Date: 04/06/24 Patient is a 63-year-old male with past medical history significant for COPD, lung cancer, hypertension, hyperlipidemia, CAD with previous PCI/stents, ischemic cardiomyopathy, and atrial fibrillation anticoagulated on Eliquis. Patient is known to have metastatic non-small cell lung cancer. His oncologist is Dr. Hoyos. Treated in the past with chemo/radiation, and patient is currently on systemic therapy, 2 weeks on 1 week off. Of note, patient has had multiple recent hospitalizations, as well as, recent bronchoscopy with airway examination and BAL on January 23. Washing was positive for MSSA. More recently on 03/13/2024, patient was treated for right upper lobe pneumonia, possibly postobstructive, on an outpatient basis with a course of Levaquin by Dr. Kumar. Patient presents emergency department late last night with a chief complaint of shortness of breath. Associated productive cough with yellow sputum production. Workup in the emergency department including a chest x-ray showing worsening multifocal airspace disease particularly in the right middle/upper lung zones as well as left perihilar region. This likely represents disease progression, with possible superimposed infectious process. CBC: WBC count of 6.8, hemoglobin 9, platelets 157. CMP: Sodium 135, potassium 3.7, chloride 96, serum bicarb 28, BUN 17, creatinine 0.65, glucose 115. Lactic was 2.6 and is down to 1. Troponin less than 0.012. NT proBNP 2360. EKG: Sinus tachycardia, rate 107 bpm, no acute ST segment elevations. Viral screen negative for influenza, RSV, COVID. Patient was placed on empiric antibiotics in the ED in the form of azithromycin and cefepime. Patient currently being evaluated in the emergency department. He is on room air. Nondistressed. He has been coughing up clear to yellow phlegm into a bottle. Denies sick contacts. Denies any fever/chills, hemoptysis, chest pain. Does report worsening lower extremity swelling. Appears the patient flipping in and out of atrial fibrillation with rapid ventricular response. He has known history of atrial fibrillation, and his c ardiac medications are yet to be restarted. Denies chest pain, heart palpitations, lightheadedness/syncopal events, orthopnea, PND. Most recent available echocardiogram from 09/06/2023 demonstrating a preserved ejection fraction. Current most recent vital signs: Temperature 98.2 F, heart rate 90 bpm, blood pressure 103/78 mmHg, nontachypneic SpO2 reading 99% on room air. On 04/06/2024, the patient is being seen for a follow-up. Slightly improved compared to yesterday. Continues to have a cough and congestion in his chest. Sputum sample was given and the cultures are still pending for now. Remains to be bronchospastic and wheezy. No fever. No hemodynamic instability. No hemoptysis. The patient had a CAT scan of the chest yesterday and this was reviewed and it shows progression of his disease with increased soft tissue density throughout the mediastinum consistent with progression of his squamous cell carcinoma in addition to a cavitating suprahilar mass. He was receiving IV Gemzar on outpatient basis as palliative systemic chemotherapy. No other new complaints otherwise for now. Remains on DuoNeb. Remains on IV cefepime and Zithromax. He is also on IV Solu-Medrol 60 mg every 6 hours. No other significant events overnight. Objective - Vital Signs Vital signs: Vital Signs Temp 97.3 F L 04/06/24 06:57 Pulse 80 04/06/24 12:24 Resp 16 04/06/24 08:05 BP 116/70 04/06/24 06:57 Pulse Ox 95 04/06/24 06:57 FiO2 Intake & Output 04/05/24 04/06/24 04/06/24 18:59 06:59 18:59 Intake Total 570 250 Output Total 200 Balance 370 250 Weight 61.235 kg 61.3 kg Intake: IV 10 10 Invasive Line 1 10 10 Oral 560 240 Output: Urine 200 Other: Voiding Method Urinal Urinal # Voids 1 - Exam GENERAL EXAM: Alert, 63-year-old male, comfortable in no apparent distress. The patient is currently on 2 L of oxygen by nasal cannula HEAD: Normocephalic and atraumatic EYES: Normal reaction of pupils, equal size. NOSE: Clear with pink turbinates. THROAT: No erythema or exudates. NECK: No masses, no JVD. CHEST: No chest wall deformity. LUNGS: Equal air entry with scattered rhonchi. Bronchospastic and wheezing scattered rhonchi heard throughout the lung viera. No conversational dyspnea or accessory muscle use.. CVS: S1 and S2 normal with no audible murmur, regular rhythm. No extra heart sounds ABDOMEN: No hepatosplenomegaly, active bowel sounds, no guarding or rigidity. SPINE: No scoliosis or deformity SKIN: No rashes CENTRAL NERVOUS SYSTEM: No focal deficits, tone is normal in all 4 extremities. EXTREMITIES: There is 2+ bilateral lower extremity edema. Extremities warm, no cyanosis. Peripheral pulses are intact. Digital clubbing noted. - Labs CBC & Chem 7: 04/06/24 06:46 04/06/24 06:46 Labs: Abnormal Lab Results - Last 24 Hours (Table) 04/06/24 04/06/24 04/06/24 Range/Units 06:05 06:46 06:46 RBC 2.55 L (4.30-5.90) m/uL Hgb 7.4 L D (13.0-17.5) gm/dL Hct 24.8 L (39.0-53.0) % MCHC 29.7 L (31.0-37.0) g/dL RDW 23.1 H (11.5-15.5) % Lymphocytes # 0.2 L (1.0-4.8) k/uL Sodium 132 L (137-145) mmol/L Chloride 97 L (98-107) mmol/L Glucose 140 H (74-99) mg/dL POC Glucose (mg/dL) 205 H (70-110) mg/dL Calcium 8.2 L (8.4-10.2) mg/dL 04/06/24 Range/Units 11:09 RBC (4.30-5.90) m/uL Hgb (13.0-17.5) gm/dL Hct (39.0-53.0) % MCHC (31.0-37.0) g/dL RDW (11.5-15.5) % Lymphocytes # (1.0-4.8) k/uL Sodium (137-145) mmol/L Chloride (98-107) mmol/L Glucose (74-99) mg/dL POC Glucose (mg/dL) 231 H (70-110) mg/dL Calcium (8.4-10.2) mg/dL Microbiology - Last 24 Hours (Table) 04/05/24 00:18 Gram Stain - Preliminary Sputum Sputum Culture - Preliminary Assessment and Plan Assessment: Acute on chronic shortness of breath, chest x-ray showing worsening multifocal airspace disease particularly in the right middle/upper lung zones, as well as, left perihilar region. This likely represents disease progression, superimposed infectious process is not excluded. The patient is currently on 2 L of oxygen by nasal cannula. Remains bronchospastic and wheezy. Recent bronchoscopy, January 23, negative for cytology and microbiology positive for MSSA Metastatic squamous cell carcinoma of the lung, diagnosed initially 2020. Patient previously treated with chemo/radiation. Patient is restarted on systemic therapy and the patient is currently on IV Gemzar. Follow-up CAT scan of the chest done on 04/05/2024 is consistent with disease progression regarding his clear-cell carcinoma as noted. Superimposed pneumonia is felt to be less likely. Moderate chronic obstructive pulmonary disease, with an FEV1 51% of predicted Paroxysmal atrial fibrillation, transient bouts of RVR on monitor Bilateral lower extremity edema Chronic anemia, hemoglobin stable History of hypertension. History of hyperlipidemia. History of CAD with previous PCI/stent. History of ischemic cardiomyopathy, most recent available echocardiogram from August, showing improvement in left ventricular ejection fraction of 55 to 60% Chronic and ongoing tobacco dependence. Plan: Currently on 2 L of oxygen by nasal cannula Continue empiric antibiotics, maintained on a combination of Zithromax and c efepime Obtain sputum culture, results are still pending Check procalcitonin level is not elevated Viral screen negative for influenza A/B, RSV, COVID Continue DuoNebs, Symbicort inhaler, and IV Solu-Medrol at a dose of 60 mg IV push every 6 hours Consult oncology Resume cardiac medications including amiodarone 200 mg p.o. daily, metoprolol 12.5 mg twice daily, and Eliquis Continue Lasix 20 mg p.o. daily Prognosis remains poor based above-mentioned comorbidities. Will ask oncology to reevaluate the patient. Prognosis poor based above-mentioned comorbidities. Time with Patient: Greater than 30
[2024-04-06] MEDS: guaiFENesin 600 MG TABLET.ER PO SCH (15:55)
[2024-04-06] MEDS: MAG HYDROX/AL HYDROX/SIMETH 30 ML, LIDOCAINE VISCOUS 2% 30 ML, diphenhydrAMINE ELIXIR 7... PO SCH (15:55)
[2024-04-06 16:26] LABS: Glucose,Whole Blood 252 mg/dL (70-110)
[2024-04-06] MEDS: methylPREDNISolone SOD SUCCI 125 MG/2 ML VIAL IV SCH (17:30)
--- NOTE | 2024-04-06 18:41 | P.PN ---
Subjective Progress Note Date: 04/06/24 Hospital course: Patient is a pleasant 63-year-old male with a past medical history of squamous cell carcinoma of lung currently undergoing chemotherapy, COPD not home oxygen dependent, CAD status post stenting, ischemic cardiomyopathy, paroxysmal atrial fibrillation on anticoagulation with Eliquis, hypertension, hyperlipidemia, and nicotine dependence.. He reports following with manufacturing weaver/oncologist Dr. Hoyos and states last chemotherapy treatment was 1 week ago tomorrow. He presented to the emergency department on 04/04/2024 secondary to reports of shortness of breath accompanied by worsening cough with production of yellowish-brown sputum. Upon arrival to our facility, patient underwent evaluation in the emergency department. Vital signs upon arrival showing blood pressure 119/82, heart rate 111, respiratory rate 22, temp 98.2 F, and SpO2 of 99% on room air. EKG completed showing sinus tachycardia at 107 bpm with repeat EKG showing atrial f ibrillation with RVR at 133 bpm T wave inversion in lateral leads I, aVL, V5 and V6.. Chest x-ray showing moderate amount of airspace opacities in bilateral lungs concentrated in the right middle/upper lung zones and left perihilar regions suggestive of pneumonia. Labs completed and reviewed. CBC showing normocytic anemia with hemoglobin of 9.0 chronic and at baseline. Coagulation profile normal findings. BMP showing hypochloremic hyponatremia with sodium of 135 and chloride of 96. Blood glucose 115. Lactic acid 2.6. Magnesium 2.0. Liver profile unremarkable. Troponin was negative at less than 0.012 and proBNP was 2360. Influenza A, influenza B, RSV, and COVID PCR negative. CT chest with IV contrast completed showing increasing soft tissue density throughout the mediastinum encasing vessels and bronchi, a 1.4 cm paratracheal mass with subtle hypodense center may be a necrotic lymph node versus soft tissue mass, increasing lung findings suspicious for metastatic disease and increasing pericardial effusion. Patient admitted under our services with consultation to pulmonology and oncology. Physical exam: Patient seen and fully evaluated at bedside this morning. He reports continued shortness of breath and his chronic pain to left lateral chest. He denies having any palpitations. Continues to have excess secretions with cough. Vital signs reviewed and stable. General: Nontoxic, no acute distress, chronically ill-appearing. Frail and emaciated Derm: Skin warm and dry, normal coloration for ethnicity. Head: Atraumatic, normocephalic and symmetric. Eyes: EOM's intact, no lid lag, and anicteric sclera Mouth: no lip lesions, mucus membranes moist Cardiovascular: regular rate and rhythm with normal S1S2, no murmur, positive posterior tibial pulses bilaterally, and cap refill < 2 seconds. Lungs: Respirations even, regular, and unlabored on supplemental oxygen. Lungs diffuse coarse rhonchi throughout with expiratory wheezes. Abdominal: soft, nontender to palpation, no guarding, no appreciable organomegaly Ext: ROM intact. No gross muscle atrophy, no edema, no contractures Neuro: Speech clear, face symmetrical and CN II-XII grossly intact with no noted focal neuro deficits Psych: Alert and oriented to person, place, time, and situation. Appropriate and pleasant affect. Assessment and Plan of Care:.. Acute hypoxic respiratory failure COPD with acute exacerbation Metastatic squamous cell carcinoma of lung Concerns for possible pneumonia in patient receiving chemotherapy -Pulmonology following, reviewed documentation in chart -Oxygenation to be administered and titrated as needed to maintain SPO2 equal to or greater than 92%. -Telemetry monitoring. -Monitor pulse-oximetry -Duonebs scheduled 4 times daily and as needed for SOB and/or wheezing -Incentive Spirometry -Steroids: Solu-Medrol 40 mg IVP every 12 hours -Antibiotics: Cefepime 2 g every 8 hours and a Zithromax 250 mg daily pending sputum culture and procalcitonin results. -Follow-up on sputum culture and blood culture results once available . -Urine Legionella pending results. CAD status post stenting Paroxysmal atrial fibrillation Hypertension Hyperlipidemia -Monitor vital signs and continue daily medication regimen with amiodarone 200 mg daily, Eliquis 5 mg twice daily, atorvastatin 80 mg nightly, and metoprolol 12.5 mg twice daily, Nicotine dependence -Patient reports that he is cut back significantly on smoking and declines wanting nicotine patch at this time. Data and imaging reviewed: Vital signs reviewed. Blood pressure 116/70, heart rate 80, respiratory rate 18, temp 97.3 F, and SpO2 of 95% on 2 L. Labs reviewed. CBC showing stable normocytic anemia with hemoglobin of 9.1. BMP showing sodium 133 and chloride 97. Blood glucose 164. Magnesium 2.3. Liver profile unremarkable with exception of hypoalbuminemia with albumin of 2.7. CODE STATUS: Full code DVT prophylaxis: Eliquis Anticipated discharge date: Pending clinical course Anticipated discharge place: Pending clinical course Patient was seen independently by Nurse Pracitioner. This document was prepared using [employer] dictation software. Please allow for er rors in computer trainer, while rare they do occur. Tony Vazquez NP rendered care for this patient independently, reviewed the findings and plan as documented in the note above and agree with plan. I did not physically speak with or examine the patient on this date. Objective - Vital Signs Vital signs: Vital Signs Temp 97.3 F L 04/06/24 06:57 Pulse 80 04/06/24 06:57 Resp 18 04/06/24 06:57 BP 116/70 04/06/24 06:57 Pulse Ox 95 04/06/24 06:57 FiO2 Intake & Output 04/05/24 04/06/24 04/06/24 18:59 06:59 18:59 Intake Total 570 240 Output Total 200 Balance 370 240 Weight 61.235 kg 61.3 kg Intake: IV 10 Invasive Line 1 10 Oral 560 240 Output: Urine 200 Other: Voiding Method Urinal # Voids 1 - Labs CBC & Chem 7: 04/06/24 06:46 04/06/24 06:46 Labs: Abnormal Lab Results - Last 24 Hours (Table) 04/05/24 04/05/24 04/06/24 Range/Units 09:57 09:57 06:05 RBC 3.11 L (4.30-5.90) m/uL Hgb 9.1 L (13.0-17.5) gm/dL Hct 30.2 L (39.0-53.0) % MCHC 30.3 L (31.0-37.0) g/dL RDW 23.0 H (11.5-15.5) % Lymphocytes # (1.0-4.8) k/uL Sodium 133 L (137-145) mmol/L Chloride 97 L (98-107) mmol/L Glucose 164 H (74-99) mg/dL POC Glucose (mg/dL) 205 H (70-110) mg/dL Calcium 8.2 L (8.4-10.2) mg/dL Total Protein 5.3 L (6.3-8.2) g/dL Albumin 2.7 L (3.5-5.0) g/dL 04/06/24 04/06/24 Range/Units 06:46 06:46 RBC 2.55 L (4.30-5.90) m/uL Hgb 7.4 L D (13.0-17.5) gm/dL Hct 24.8 L (39.0-53.0) % MCHC 29.7 L (31.0-37.0) g/dL RDW 23.1 H (11.5-15.5) % Lymphocytes # 0.2 L (1.0-4.8) k/uL Sodium 132 L (137-145) mmol/L Chloride 97 L (98-107) mmol/L Glucose 140 H (74-99) mg/dL POC Glucose (mg/dL) (70-110) mg/dL Calcium 8.2 L (8.4-10.2) mg/dL Total Protein (6.3-8.2) g/dL Albumin (3.5-5.0) g/dL Microbiology - Last 24 Hours (Table) 04/05/24 00:18 Gram Stain - Preliminary Sputum
[2024-04-06] MEDS: BENZONATATE 100 MG CAP PO PRN (19:32)
[2024-04-06 20:19] LABS: Glucose,Whole Blood 145 mg/dL (70-110)
[2024-04-07 06:21] LABS: Glucose,Whole Blood 198 mg/dL (70-110)
[2024-04-07 08:45] LABS: ALT 20 U/L (4-49); AST 20 U/L (17-59); African American GFR (CKD) >90 (>60 ml/min/1.73 sqM); Alkaline Phosphatase 76 U/L (38-126); Anion Gap 9 mmol/L; Blood Urea Nitrogen 16 mg/dL (9-20); Calcium 8.4 mg/dL (8.4-10.2); Carbon Dioxide 28 mmol/L (22-30); Chloride 95 mmol/L (98-107); Glucose 105 mg/dL (74-99); Magnesium 2.4 mg/dL (1.6-2.3); Non-African American GFR(CKD) >90 (>60 ml/min/1.73 sqM); Potassium 4.3 mmol/L (3.5-5.1); Sodium 132 mmol/L (137-145); Total Bilirubin 0.4 mg/dL (0.2-1.3); Total Protein 5.7 g/dL (6.3-8.2)
[2024-04-07 08:59] LABS: Anisocytosis Moderate; HCT 26.3 % (39.0-53.0); HGB 7.7 gm/dL (13.0-17.5); Hypochromasia Marked; MCH 29.1 pg (25.0-35.0); MCHC 29.4 g/dL (31.0-37.0); MCV 98.8 fL (80.0-100.0); Macrocytosis Moderate; Mean Platelet Volume 9.8; Platelet Count 227 k/uL (150-450); Poikilocytosis Slight; RBC 2.66 m/uL (4.30-5.90); WBC 5.4 k/uL (3.8-10.6)
[2024-04-07 11:38] LABS: Glucose,Whole Blood 141 mg/dL (70-110)
[2024-04-07] MEDS: FUROSEMIDE 10 MG/ML 4 ML VIAL IV SCH (12:09)
--- NOTE | 2024-04-07 14:18 | CA ---
Transthoracic Echo Report Name: rFacisco Rene Age: 63 Gender: M : 1960 Exam Date: 04/07/2024 09:50 Exam Location: [facility] Ht (in): 73 Wt (lb): 135 Ordering Physician: Mary Lou Farfan Attending/Referring Phys: Commissioned Police Officer Ale Thomas RDCS Procedure CPT: Indications: SOB, CT reports moderate pericardial effusion Cardiac Hx: Lung Cancer, COPD Technical Quality: Fair Contrast 1: Total Dose (mL): Contrast 2: Total Dose (mL): MEASUREMENTS (Male / Female) Normal Values 2D ECHO LV Diastolic Diameter PLAX 5.5 cm 4.2 - 5.9 / 3.9 - 5.3 cm LV Systolic Diameter PLAX 1.8 cm IVS Diastolic Thickness 1.1 cm 0.6 - 1.0 / 0.6 - 0.9 cm LVPW Diastolic Thickness 1.3 cm 0.6 - 1.0 / 0.6 - 0.9 cm LV Relative Wall Thickness 0.4 RV Internal Dim ED PLAX 2.4 cm LA Systolic Diameter LX 3.7 cm 3.0 - 4.0 / 2.7 - 3.8 cm LV Diastolic Volume MOD BP 80.1 cm??? 67 - 155 / 56 - 104 cm??? LV Systolic Volume MOD BP 44.6 cm??? 22 - 58 / 19 - 49 cm??? LV Ejection Fraction MOD BP 44.2 % >= 55 % LV Cardiac Index MOD BP 1430.0 cm???/min???m??? LV Diastolic Volume MOD 4C 84.6 cm??? LV Systolic Volume MOD 4C 48.9 cm??? LV Ejection Fraction MOD 4C 42.3 % LV Cardiac Index MOD 4C 1444.6 cm???/min???m??? LV Diastolic Length 4C 8.6 cm LV Systolic Length 4C 7.3 cm LV Diastolic Volume MOD 2C 75.5 cm??? LV Systolic Volume MOD 2C 48.4 cm??? LV Ejection Fraction MOD 2C 35.9 % LV Cardiac Index MOD 2C 1094.0 cm???/min???m??? LV Diastolic Length 2C 8.8 cm LV Systolic Length 2C 7.6 cm M-MODE Aortic Root Diameter MM 3.0 cm LA Systolic Diameter MM 3.1 cm LA Ao Ratio MM 1.0 AV Cusp Separation MM 2.2 cm DOPPLER TR Peak Velocity 256.8 cm/s TR Peak Gradient 26.4 mmHg Right Ventricular Systolic Press 46.4 mmHg FINDINGS Left Ventricle Left ventricular ejection fraction is estimated at 35-40 %. Mildly increased left ventricular wall thickness. Moderate to severe global hypokinesis, more noted in the apex Right Ventricle Normal right ventricular size and function. Moderate pulmonary hypertension. Right Atrium Mild right atrial dilatation. Left Atrium Normal left atrial size. Mitral Valve Structurally normal mitral valve. [id number] mitral regurgitation. Aortic Valve Tricuspid Valve [id number] tricuspid regurgitation. Pulmonic Valve Pericardium Minimal pericardial effusion (normal variant). Aorta Normal size aortic root and proximal ascending aorta. CONCLUSIONS 1. Moderately to severely impaired left ventricular systolic function 2. Mild to moderate mitral and tricuspid regurgitation with moderate pulmonary hypertension 3. Trace pericardial effusion Previewed by: Dr. Neeru Tabares MD (Electronically Signed) Final Date: 07 April 2024 14:17
--- NOTE | 2024-04-07 14:21 | P.PN ---
Subjective Progress Note Date: 04/07/24 Patient is a 63-year-old male with past medical history significant for COPD, lung cancer, hypertension, hyperlipidemia, CAD with previous PCI/stents, ischemic cardiomyopathy, and atrial fibrillation anticoagulated on Eliquis. Patient is known to have metastatic non-small cell lung cancer. His oncologist is Dr. Hoyos. Treated in the past with chemo/radiation, and patient is currently on systemic therapy, 2 weeks on 1 week off. Of note, patient has had multiple recent hospitalizations, as well as, recent bronchoscopy with airway examination and BAL on January 23. [place]ashing was positive for MSSA. More recently on 03/13/2024, patient was treated for right upper lobe pneumonia, possibly postobstructive, on an outpatient basis with a course of Levaquin by Dr. Kumar. Patient presents emergency department late last night with a chief complaint of shortness of breath. Associated productive cough with yellow sputum production. Workup in the emergency department including a chest x-ray showing worsening multifocal airspace disease particularly in the right middle/upper lung zones as well as left perihilar region. This likely represents disease progression, with possible superimposed infectious process. CBC: WBC count of 6.8, hemoglobin 9, platelets 157. CMP: Sodium 135, potassium 3.7, chloride 96, serum bicarb 28, BUN 17, creatinine 0.65, glucose 115. Lactic was 2.6 and is down to 1. Troponin less than 0.012. NT proBNP 2360. EKG: Sinus tachycardia, rate 107 bpm, no acute ST segment elevations. Viral screen negative for influenza, RSV, COVID. Patient was placed on empiric antibiotics in the ED in the form of azithromycin and cefepime. Patient currently being evaluated in the emergency department. He is on room air. Nondistressed. He has been coughing up clear to yellow phlegm into a bottle. Denies sick contacts. Denies any fever/chills, hemoptysis, chest pain. Does report worsening lower extremity swelling. Appears the patient flipping in and out of atrial fibrillation with rapid ventricular response. He has known history of atrial fibrillation, and his c ardiac medications are yet to be restarted. Denies chest pain, heart palpitations, lightheadedness/syncopal events, orthopnea, PND. Most recent available echocardiogram from 09/06/2023 demonstrating a preserved ejection fraction. Current most recent vital signs: Temperature 98.2 F, heart rate 90 bpm, blood pressure 103/78 mmHg, nontachypneic SpO2 reading 99% on room air. On 04/06/2024, the patient is being seen for a follow-up. Slightly improved compared to yesterday. Continues to have a cough and congestion in his chest. Sputum sample was given and the cultures are still pending for now. Remains to be bronchospastic and wheezy. No fever. No hemodynamic instability. No hemoptysis. The patient had a CAT scan of the chest yesterday and this was reviewed and it shows progression of his disease with increased soft tissue density throughout the mediastinum consistent with progression of his squamous cell carcinoma in addition to a cavitating suprahilar mass. He was receiving IV Gemzar on outpatient basis as palliative systemic chemotherapy. No other new complaints otherwise for now. Remains on DuoNeb. Remains on IV cefepime and Zithromax. He is also on IV Solu-Medrol 60 mg every 6 hours. No other significant events overnight. On 04/07/2024, the patient is being seen for a follow-up. Continues to have some cough and congestion although less compared to yesterday. The sputum sample is still pending for now. Noted the patient's procalcitonin level was not elevated and a pneumonia is felt to be less likely. His presentation is not related to COPD exacerbation and underlying lung cancer. The patient was receiving IV Gemzar regarding his lung cancer on outpatient basis. Feels well. No new complaints. Appetite is diminished. Currently on 2 L of oxygen by nasal cannula. White cell count is at 5.4 with a hemoglobin of 7.7, BUN 16 with a creatinine 0.59 and sodium was 132. LFTs are normal. No other significant events overnight. Blood cultures have been negative. Objective - Vital Signs Vital signs: Vital Signs Temp 97.5 F L 04/07/24 08:21 Pulse 90 04/07/24 08:59 Resp 16 04/07/24 08:21 BP 123/69 04/07/24 08:21 Pulse Ox 93 L 04/07/24 08:21 FiO2 Intake & Output 04/06/24 04/07/24 04/07/24 18:59 06:59 18:59 Intake Total 1270 500 Output Total 550 400 Balance 720 100 Weight 62.6 kg Intake: IV 10 20 Invasive Line 1 10 20 Intake, IV Titration 100 Amount Azithromycin 500 mg In 100 Sodium Chloride 0.9% 250 ml @ 250 mls/hr IVPB DAILY [facility] Rx#:[id number] Oral 1160 480 Output: Urine 550 400 Other: Voiding Method Urinal Urinal Urinal # Voids 2 - Exam GENERAL EXAM: Alert, 63-year-old male, comfortable in no apparent distress. The patient is currently on 2 L of oxygen by nasal cannula HEAD: Normocephalic and atraumatic EYES: Normal reaction of pupils, equal size. NOSE: Clear with pink turbinates. THROAT: No erythema or exudates. NECK: No masses, no JVD. CHEST: No chest wall deformity. LUNGS: Equal air entry with scattered rhonchi. Bronchospastic and wheezing scattered rhonchi heard throughout the lung viera. No conversational dyspnea or accessory muscle use.. CVS: S1 and S2 normal with no audible murmur, regular rhythm. No extra heart sounds ABDOMEN: No hepatosplenomegaly, active bowel sounds, no guarding or rigidity. SPINE: No scoliosis or deformity SKIN: No rashes CENTRAL NERVOUS SYSTEM: No focal deficits, tone is normal in all 4 extremities. EXTREMITIES: There is 2+ bilateral lower extremity edema. Extremities warm, no cyanosis. Peripheral pulses are intact. Digital clubbing noted. - Labs CBC & Chem 7: 04/07/24 07:30 04/07/24 07:30 Labs: Abnormal Lab Results - Last 24 Hours (Table) 04/06/24 04/06/24 04/06/24 Range/Units 11:09 16:22 19:59 RBC (4.30-5.90) m/uL Hgb (13.0-17.5) gm/dL Hct (39.0-53.0) % MCHC (31.0-37.0) g/dL RDW (11.5-15.5) % Sodium (137-145) mmol/L Chloride (98-107) mmol/L Creatinine (0.66-1.25) mg/dL Glucose (74-99) mg/dL POC Glucose (mg/dL) 231 H 252 H 145 H (70-110) mg/dL Magnesium (1.6-2.3) mg/dL Total Protein (6.3-8.2) g/dL Albumin (3.5-5.0) g/dL 04/07/24 04/07/24 04/07/24 Range/Units 05:51 07:30 07:30 RBC 2.66 L (4.30-5.90) m/uL Hgb 7.7 L (13.0-17.5) gm/dL Hct 26.3 L (39.0-53.0) % MCHC 29.4 L (31.0-37.0) g/dL RDW 23.0 H (11.5-15.5) % Sodium 132 L (137-145) mmol/L Chloride 95 L (98-107) mmol/L Creatinine 0.59 L (0.66-1.25) mg/dL Glucose 105 H (74-99) mg/dL POC Glucose (mg/dL) 198 H (70-110) mg/dL Magnesium 2.4 H (1.6-2.3) mg/dL Total Protein 5.7 L (6.3-8.2) g/dL Albumin 3.0 L (3.5-5.0) g/dL Microbiology - Last 24 Hours (Table) 04/05/24 00:46 Blood Culture - Preliminary Blood 04/05/24 00:18 Gram Stain - Preliminary Sputum Sputum Culture - Preliminary Assessment and Plan Assessment: Acute on chronic shortness of breath, chest x-ray showing worsening multifocal airspace disease particularly in the right middle/upper lung zones, as well as, left perihilar region. This likely represents disease progression, superimposed infectious process is not excluded. The patient is currently on 2 L of oxygen by nasal cannula. Remains bronchospastic and wheezy, however improved compared to yesterday Recent bronchoscopy, January 23, negative for cytology and microbiology positive for MSSA Metastatic squamous cell carcinoma of the lung, diagnosed initially 2020. Patient previously treated with chemo/radiation. Patient is restarted on systemic therapy and the patient is currently on IV Gemzar. Follow-up CAT scan of the chest done on 04/05/2024 is consistent with disease progression regarding his clear-cell carcinoma as noted. Superimposed pneumonia is felt to be less likely. Moderate chronic obstructive pulmonary disease, with an FEV1 51% of predicted Paroxysmal atrial fibrillation, transient bouts of RVR on monitor Bilateral lower extremity edema Chronic anemia, hemoglobin stable History of hypertension. History of hyperlipidemia. History of CAD with previous PCI/stent. History of ischemic cardiomyopathy, most recent available echocardiogram from August, showing improvement in left ventricular ejection fraction of 55 to 60% Chronic and ongoing tobacco dependence. Plan: Currently on 2 L of oxygen by nasal cannula Switch the patient to oral clindamycin 450 mg p.o. 3 times daily Obtain sputum culture, results are still pending, negative thus far Check procalcitonin level is not elevated Viral screen negative for influenza A/B, RSV, COVID Continue DuoNebs, Symbicort inhaler, and IV Solu-Medrol at a dose of 60 mg IV push every 6 hours Consult oncology Resume cardiac medications including amiodarone 200 mg p.o. daily, metoprolol 12.5 mg twice daily, and Eliquis Continue Lasix 20 mg p.o. daily Prognosis remains poor based above-mentioned comorbidities. Will ask oncology to reevaluate the patient. Prognosis poor based above-mentioned comorbidities.
[2024-04-07] MEDS: CLINDAMYCIN 150 MG CAP PO SCH (14:52)
[2024-04-07 16:13] LABS: Glucose,Whole Blood 145 mg/dL (70-110)
--- NOTE | 2024-04-07 18:05 | P.PN ---
Subjective Progress Note Date: 04/07/24 Hospital course: Patient is a pleasant 63-year-old male with a past medical history of squamous cell carcinoma of lung currently undergoing chemotherapy, COPD not home oxygen dependent, CAD status post stenting, ischemic cardiomyopathy, paroxysmal atrial fibrillation on anticoagulation with Eliquis, hypertension, hyperlipidemia, and nicotine dependence.. He reports following with it infrastructure architect/oncologist Dr. Hoyos and states last chemotherapy treatment was 1 week ago tomorrow. He presented to the emergency department on 04/04/2024 secondary to reports of shortness of breath accompanied by worsening cough with production of yellowish-brown sputum. Upon arrival to our facility, patient underwent evaluation in the emergency department. Vital signs upon arrival showing blood pressure 119/82, heart rate 111, respiratory rate 22, temp 98.2 F, and SpO2 of 99% on room air. EKG completed showing sinus tachycardia at 107 bpm with repeat EKG showing atrial f ibrillation with RVR at 133 bpm T wave inversion in lateral leads I, aVL, V5 and V6.. Chest x-ray showing moderate amount of airspace opacities in bilateral lungs concentrated in the right middle/upper lung zones and left perihilar regions suggestive of pneumonia. Labs completed and reviewed. CBC showing normocytic anemia with hemoglobin of 9.0 chronic and at baseline. Coagulation profile normal findings. BMP showing hypochloremic hyponatremia with sodium of 135 and chloride of 96. Blood glucose 115. Lactic acid 2.6. Magnesium 2.0. Liver profile unremarkable. Troponin was negative at less than 0.012 and proBNP was 2360. Influenza A, influenza B, RSV, and COVID PCR negative. CT chest with IV contrast completed showing increasing soft tissue density throughout the mediastinum encasing vessels and bronchi, a 1.4 cm paratracheal mass with subtle hypodense center may be a necrotic lymph node versus soft tissue mass, increasing lung findings suspicious for metastatic disease and increasing pericardial effusion. Patient admitted under our services with consultation to pulmonology and oncology. Physical exam: Patient seen and fully evaluated at bedside this morning. He reports continued shortness of breath and his chronic pain to left lateral chest remains but is slightly improved today. He denies having any palpitations. Continues to have excess secretions with cough. Vital signs reviewed and stable. General: Nontoxic, no acute distress, chronically ill-appearing. Frail and emaciated Derm: Skin warm and dry, normal coloration for ethnicity. Head: Atraumatic, normocephalic and symmetric. Eyes: EOM's intact, no lid lag, and anicteric sclera Mouth: no lip lesions, mucus membranes moist Cardiovascular: regular rate and rhythm with normal S1S2, no murmur, positive posterior tibial pulses bilaterally, and cap refill < 2 seconds. Lungs: Respirations even, regular, and unlabored on supplemental oxygen. Lungs diffuse coarse rhonchi throughout with expiratory wheezes. Abdominal: soft, nontender to palpation, no guarding, no appreciable organomegaly Ext: ROM intact. No gross muscle atrophy, no edema, no contractures Neuro: Speech clear, face symmetrical and CN II-XII grossly intact with no noted focal neuro deficits Psych: Alert and oriented to person, place, time, and situation. Appropriate and pleasant affect. Assessment and Plan of Care:.. Acute hypoxic respiratory failure COPD with acute exacerbation Metastatic squamous cell carcinoma of lung Concerns for possible pneumonia in patient receiving chemotherapy -Pulmonology following, discussed plan of care in detail with formal wear rental clerk at bedside. -Oxygenation to be administered and titrated as needed to maintain SPO2 equal to or greater than 92%. -Telemetry monitoring. -Monitor pulse-oximetry -Duonebs scheduled 4 times daily and as needed for SOB and/or wheezing -Incentive Spirometry -Steroids: Solu-Medrol 40 mg IVP every 12 hours -Pending sputum culture results patient placed on clindamycin 450 mg 4 times daily. -Follow-up on sputum culture and blood culture results once available . -Urine Legionella negative. CAD status post stenting Paroxysmal atrial fibrillation Hypertension Hyperlipidemia -Monitor vital signs and continue daily medication regimen with amiodarone 200 mg daily, Eliquis 5 mg twice daily, atorvastatin 80 mg nightly, and metoprolol 12.5 mg twice daily, Nicotine dependence -Patient reports that he is cut back significantly on smoking and declines wanting nicotine patch at this time. Data and imaging reviewed: Vital signs reviewed. Blood pressure 116/70, heart rate 80, respiratory rate 18, temp 97.3 F, and SpO2 of 95% on 2 L. Labs reviewed. Urine Legionella negative. CBC showing stable hemoglobin of 7.7. BMP showing hyponatremia with sodium of 132 hypochloremia with chloride of 95 blood glucose 105. Magnesium 2.4. Liver profile unremarkable with exception of hypoalbuminemia with albumin of 3.0. Procalcitonin was negative at 0.25. However we will continue antibiotics with clindamycin 450 mg every 6 hours pending final sputum culture results. CODE STATUS: Full code DVT prophylaxis: Eliquis Anticipated discharge date: Pending clinical course Anticipated discharge place: Pending clinical course Patient was seen independently by Nurse Pracitioner. This document was prepared using [employer] dictation software. Please allow for errors in shorts sifter, while rare they do occur. Tony Vazquez RESIDENTIAL TREATMENT COUNSELOR rendered care for this patient independently, reviewed the findings and plan as documented in the note above and agree with plan. I did not physically speak with or examine the patient on this date. Objective - Vital Signs Vital signs: Vital Signs Temp 97.5 F L 04/07/24 08:21 Pulse 90 04/07/24 08:59 Resp 16 04/07/24 08:21 BP 123/69 04/07/24 08:21 Pulse Ox 93 L 04/07/24 08:21 FiO2 Intake & Output 04/06/24 04/07/24 04/07/24 18:59 06:59 18:59 Intake Total 1270 500 Output Total 550 400 Balance 720 100 Weight 62.6 kg Intake: IV 10 20 Invasive Line 1 10 20 Intake, IV Titration 100 Amount Azithromycin 500 mg In 100 Sodium Chloride 0.9% 250 ml @ 250 mls/hr IVPB DAILY [facility] Rx#:[id number] Oral 1160 480 Output: Urine 550 400 Other: Voiding Method Urinal Urinal Urinal # Voids 2 - Labs CBC & Chem 7: 04/07/24 07:30 04/07/24 07:30 Labs: Abnormal Lab Results - Last 24 Hours (Table) 04/06/24 04/06/24 04/06/24 Range/Units 11:09 16:22 19:59 RBC (4.30-5.90) m/uL Hgb (13.0-17.5) gm/dL Hct (39.0-53.0) % MCHC (31.0-37.0) g/dL RDW (11.5-15.5) % Sodium (137-145) mmol/L Chloride (98-107) mmol/L Creatinine (0.66-1.25) mg/dL Glucose (74-99) mg/dL POC Glucose (mg/dL) 231 H 252 H 145 H (70-110) mg/dL Magnesium (1.6-2.3) mg/dL Total Protein (6.3-8.2) g/dL Albumin (3.5-5.0) g/dL 04/07/24 04/07/24 04/07/24 Range/Units 05:51 07:30 07:30 RBC 2.66 L (4.30-5.90) m/uL Hgb 7.7 L (13.0-17.5) gm/dL Hct 26.3 L (39.0-53.0) % MCHC 29.4 L (31.0-37.0) g/dL RDW 23.0 H (11.5-15.5) % Sodium 132 L (137-145) mmol/L Chloride 95 L (98-107) mmol/L Creatinine 0.59 L (0.66-1.25) mg/dL Glucose 105 H (74-99) mg/dL POC Glucose (mg/dL) 198 H (70-110) mg/dL Magnesium 2.4 H (1.6-2.3) mg/dL Total Protein 5.7 L (6.3-8.2) g/dL Albumin 3.0 L (3.5-5.0) g/dL Microbiology - Last 24 Hours (Table) 04/05/24 00:46 Blood Culture - Preliminary Blood 04/05/24 00:18 Gram Stain - Preliminary Sputum Sputum Culture - Preliminary
[2024-04-07 20:41] LABS: Glucose,Whole Blood 167 mg/dL (70-110)
[2024-04-08 06:24] LABS: Glucose,Whole Blood 149 mg/dL (70-110)
[2024-04-08 07:13] LABS: Anisocytosis Moderate; HCT 24.4 % (39.0-53.0); HGB 7.4 gm/dL (13.0-17.5); Hypochromasia Marked; MCH 29.7 pg (25.0-35.0); MCHC 30.5 g/dL (31.0-37.0); MCV 97.3 fL (80.0-100.0); Macrocytosis Moderate; Mean Platelet Volume 9.2; Platelet Count 257 k/uL (150-450); Poikilocytosis Moderate; RDW 23.2 % (11.5-15.5); WBC 7.8 k/uL (3.8-10.6)
[2024-04-08 07:30] LABS: African American GFR (CKD) >90 (>60 ml/min/1.73 sqM); Anion Gap 8 mmol/L; Blood Urea Nitrogen 15 mg/dL (9-20); Calcium 8.4 mg/dL (8.4-10.2); Carbon Dioxide 29 mmol/L (22-30); Chloride 97 mmol/L (98-107); Glucose 117 mg/dL (74-99); Magnesium 2.2 mg/dL (1.6-2.3); Non-African American GFR(CKD) >90 (>60 ml/min/1.73 sqM); Potassium 4.1 mmol/L (3.5-5.1); Sodium 134 mmol/L (137-145)
[2024-04-08 11:05] LABS: Glucose,Whole Blood 151 mg/dL (70-110)
--- NOTE | 2024-04-08 13:53 | P.PN ---
Subjective Progress Note Date: 04/08/24 Patient is a 63-year-old male with past medical history significant for COPD, lung cancer, hypertension, hyperlipidemia, CAD with previous PCI/stents, ischemic cardiomyopathy, and atrial fibrillation anticoagulated on Eliquis. Patient is known to have metastatic non-small cell lung cancer. His oncologist is Dr. Hoyos. Treated in the past with chemo/radiation, and patient is currently on systemic therapy, 2 weeks on 1 week off. Of note, patient has had multiple recent hospitalizations, as well as, recent bronchoscopy with airway examination and BAL on January 23. Washing was positive for MSSA. More recently on 03/13/2024, patient was treated for right upper lobe pneumonia, possibly postobstructive, on an outpatient basis with a course of Levaquin by Dr. Kumar. Patient presents emergency department late last night with a chief complaint of shortness of breath. Associated productive cough with yellow sputum production. Workup in the emergency department including a chest x-ray showing worsening multifocal airspace disease particularly in the right middle/upper lung zones as well as left perihilar region. This likely represents disease progression, with possible superimposed infectious process. CBC: WBC count of 6.8, hemoglobin 9, platelets 157. CMP: Sodium 135, potassium 3.7, chloride 96, serum bicarb 28, BUN 17, creatinine 0.65, glucose 115. Lactic was 2.6 and is down to 1. Troponin less than 0.012. NT proBNP 2360. EKG: Sinus tachycardia, rate 107 bpm, no acute ST segment elevations. Viral screen negative for influenza, RSV, COVID. Patient was placed on empiric antibiotics in the ED in the form of azithromycin and cefepime. Patient currently being evaluated in the emergency department. He is on room air. Nondistressed. He has been coughing up clear to yellow phlegm into a bottle. Denies sick contacts. Denies any fever/chills, hemoptysis, chest pain. Does report worsening lower extremity swelling. Appears the patient flipping in and out of atrial fibrillation with rapid ventricular response. He has known history of atrial fibrillation, and his c ardiac medications are yet to be restarted. Denies chest pain, heart palpitations, lightheadedness/syncopal events, orthopnea, PND. Most recent available echocardiogram from 09/06/2023 demonstrating a preserved ejection fraction. Current most recent vital signs: Temperature 98.2 F, heart rate 90 bpm, blood pressure 103/78 mmHg, nontachypneic SpO2 reading 99% on room air. On 04/06/2024, the patient is being seen for a follow-up. Slightly improved compared to yesterday. Continues to have a cough and congestion in his chest. Sputum sample was given and the cultures are still pending for now. Remains to be bronchospastic and wheezy. No fever. No hemodynamic instability. No hemoptysis. The patient had a CAT scan of the chest yesterday and this was reviewed and it shows progression of his disease with increased soft tissue density throughout the mediastinum consistent with progression of his squamous cell carcinoma in addition to a cavitating suprahilar mass. He was receiving IV Gemzar on outpatient basis as palliative systemic chemotherapy. No other new complaints otherwise for now. Remains on DuoNeb. Remains on IV cefepime and Zithromax. He is also on IV Solu-Medrol 60 mg every 6 hours. No other significant events overnight. On 04/07/2024, the patient is being seen for a follow-up. Continues to have some cough and congestion although less compared to yesterday. The sputum sample is still pending for now. Noted the patient's procalcitonin level was not elevated and a pneumonia is felt to be less likely. His presentation is not related to COPD exacerbation and underlying lung cancer. The patient was receiving IV Gemzar regarding his lung cancer on outpatient basis. Feels well. No new complaints. Appetite is diminished. Currently on 2 L of oxygen by nasal cannula. White cell count is at 5.4 with a hemoglobin of 7.7, BUN 16 with a creatinine 0.59 and sodium was 132. LFTs are normal. No other significant events overnight. Blood cultures have been negative. On 04/08/2024, the patient is being seen for a follow-up. The patient is currently on oxygen and at 2 L/min nasal cannula. Continues to have cough and congestion and is still producing thick mucus. The patient is currently on clindamycin. The patient is on DuoNeb nebulized treatments [id number]. The patient on Symbicort. The patient remains on IV Solu-Medrol 60 mg IV push every 6 hours. Sputum cultures have been negative. As mentioned, he is known to have underlying lung cancer, which is metastatic squamous cell carcinoma the patient has been receiving palliative chemotherapy with Gemzar. Blood work from today shows a white cell count of 7.8, hemoglobin 7.4 and platelet count of 257. BUN is 15 with a creatinine of 0.6. Sodium levels at 134. Objective - Vital Signs Vital signs: Vital Signs Temp 97.8 F 04/07/24 20:21 Pulse 91 04/08/24 09:24 Resp 18 04/08/24 09:24 BP 126/82 04/08/24 09:24 Pulse Ox 94 L 04/08/24 09:24 FiO2 21 04/08/24 07:59 Intake & Output 04/07/24 04/08/24 04/08/24 18:59 06:59 18:59 Intake Total 1610 240 Output Total 0311 307 1616 Balance -495 -118 -635 Weight 62.9 kg Intake: Intake, IV Titration 350 Amount Azithromycin 500 mg In 250 Sodium Chloride 0.9% 250 ml @ 250 mls/hr IVPB DAILY [facility] Rx#:[id number] Cefepime 2 gm In Sodium 100 Chloride 0.9% 100 ml @ 25 mls/hr IVPB Q8HR [facility] Rx# :[id number] Oral 1260 240 Output: Urine 7145 213 [id number] Other: Voiding Method Urinal Urinal # Voids 250 - Exam GENERAL EXAM: Alert, 63-year-old male, comfortable in no apparent distress. The patient is currently on 2 L of oxygen by nasal cannula HEAD: Normocephalic and atraumatic EYES: Normal reaction of pupils, equal size. NOSE: Clear with pink turbinates. THROAT: No erythema or exudates. NECK: No masses, no JVD. CHEST: No chest wall deformity. LUNGS: Equal air entry with scattered rhonchi. Bronchospastic and wheezing scattered rhonchi heard throughout the lung viera. No conversational dyspnea or accessory muscle use.. CVS: S1 and S2 normal with no audible murmur, regular rhythm. No extra heart sounds ABDOMEN: No hepatosplenomegaly, active bowel sounds, no guarding or rigidity. SPINE: No scoliosis or deformity SKIN: No rashes CENTRAL NERVOUS SYSTEM: No focal deficits, tone is normal in all 4 extremities. EXTREMITIES: There is 2+ bilateral lower extremity edema. Extremities warm, no cyanosis. Peripheral pulses are intact. Digital clubbing noted. - Labs CBC & Chem 7: 04/08/24 06:35 04/08/24 06:35 Labs: Abnormal Lab Results - Last 24 Hours (Table) 04/07/24 04/07/24 04/07/24 Range/Units 11:35 16:08 20:07 RBC (4.30-5.90) m/uL Hgb (13.0-17.5) gm/dL Hct (39.0-53.0) % MCHC (31.0-37.0) g/dL RDW (11.5-15.5) % Sodium (137-145) mmol/L Chloride (98-107) mmol/L Creatinine (0.66-1.25) mg/dL Glucose (74-99) mg/dL POC Glucose (mg/dL) 141 H 145 H 167 H (70-110) mg/dL 04/08/24 04/08/24 04/08/24 Range/Units 05:56 06:35 06:35 RBC 2.50 L (4.30-5.90) m/uL Hgb 7.4 L (13.0-17.5) gm/dL Hct 24.4 L (39.0-53.0) % MCHC 30.5 L (31.0-37.0) g/dL RDW 23.2 H (11.5-15.5) % Sodium 134 L (137-145) mmol/L Chloride 97 L (98-107) mmol/L Creatinine 0.64 L (0.66-1.25) mg/dL Glucose 117 H (74-99) mg/dL POC Glucose (mg/dL) 149 H (70-110) mg/dL Microbiology - Last 24 Hours (Table) 04/05/24 00:46 Blood Culture - Preliminary Blood 04/05/24 00:18 Gram Stain - Final Sputum Sputum Culture - Final Assessment and Plan Assessment: Acute on chronic shortness of breath, chest x-ray showing worsening multifocal airspace disease particularly in the right middle/upper lung zones, as well as, left perihilar region. This likely represents disease progression, superimposed infectious process is not excluded. The patient is currently on 2 L of oxygen by nasal cannula. Remains bronchospastic and wheezy, however improved compared to yesterday Recent bronchoscopy, January 23, negative for cytology and microbiology positive for MSSA Metastatic squamous cell carcinoma of the lung, diagnosed initially 2020. Patient previously treated with chemo/radiation. Patient is restarted on system ic therapy and the patient is currently on IV Gemzar. Follow-up CAT scan of the chest done on 04/05/2024 is consistent with disease progression regarding his squamous cell carcinoma as noted. Superimposed pneumonia is felt to be less likely. Moderate chronic obstructive pulmonary disease, with an FEV1 51% of predicted Paroxysmal atrial fibrillation, transient bouts of RVR on monitor Bilateral lower extremity edema Chronic anemia, hemoglobin stable History of hypertension. History of hyperlipidemia. History of CAD with previous PCI/stent. History of ischemic cardiomyopathy, most recent available echocardiogram from August, showing improvement in left ventricular ejection fraction of 55 to 60% Chronic and ongoing tobacco dependence. Plan: Symptomatic as clinically stable. Aggressive pulmonary toileting Currently on 2 L of oxygen by nasal cannula Continue oral clindamycin 450 mg p.o. 3 times daily Obtain sputum culture, results are still pending, negative thus far Check procalcitonin level is not elevated Viral screen negative for influenza A/B, RSV, COVID Continue DuoNebs, Symbicort inhaler, and IV Solu-Medrol at a dose of 60 mg IV push every 6 hours Consult oncology Resume cardiac medications including amiodarone 200 mg p.o. daily, metoprolol 12.5 mg twice daily, and Eliquis Continue Lasix as the patient continues to have significant edema in lower extremities. Currently receiving 40 mg of IV Lasix once a day. Leg wrapping was performed Prognosis remains poor based above-mentioned comorbidities. Will ask oncology to reevaluate the patient. Prognosis poor based above-mentioned comorbidities. Time with Patient: Greater than 30
--- NOTE | 2024-04-08 15:28 | P.PN ---
Subjective Progress Note Date: 04/08/24 Hospital course: Patient is a pleasant 63-year-old male with a past medical history of squamous cell carcinoma of lung currently undergoing chemotherapy, COPD not home oxygen dependent, CAD status post stenting, ischemic cardiomyopathy, paroxysmal atrial fibrillation on anticoagulation with Eliquis, hypertension, hyperlipidemia, and nicotine dependence.. He reports following with senior test analyst/oncologist Dr. Hoyos and states last chemotherapy treatment was 1 week ago tomorrow. He presented to the emergency department on 04/04/2024 secondary to reports of shortness of breath accompanied by worsening cough with production of yellowish-brown sputum. Upon arrival to our facility, patient underwent evaluation in the emergency department. Vital signs upon arrival showing blood pressure 119/82, heart rate 111, respiratory rate 22, temp 98.2 F, and SpO2 of 99% on room air. EKG completed showing sinus tachycardia at 107 bpm with repeat EKG showing atrial f ibrillation with RVR at 133 bpm T wave inversion in lateral leads I, aVL, V5 and V6.. Chest x-ray showing moderate amount of airspace opacities in bilateral lungs concentrated in the right middle/upper lung zones and left perihilar regions suggestive of pneumonia. Labs completed and reviewed. CBC showing normocytic anemia with hemoglobin of 9.0 chronic and at baseline. Coagulation profile normal findings. BMP showing hypochloremic hyponatremia with sodium of 135 and chloride of 96. Blood glucose 115. Lactic acid 2.6. Magnesium 2.0. Liver profile unremarkable. Troponin was negative at less than 0.012 and proBNP was 2360. Influenza A, influenza B, RSV, and COVID PCR negative. CT chest with IV contrast completed showing increasing soft tissue density throughout the mediastinum encasing vessels and bronchi, a 1.4 cm paratracheal mass with subtle hypodense center may be a necrotic lymph node versus soft tissue mass, increasing lung findings suspicious for metastatic disease and increasing pericardial effusion. Patient admitted under our services with consultation to pulmonology and oncology. Physical exam: Patient seen and fully evaluated at bedside this morning. Patient continues to complain of shortness of breath and reports feeling weak today. Patient states he is having difficulties getting up his sputum. Patient encouraged to use incentive spirometer as well as flutter valve to help with clearing secretions. Vital signs reviewed and stable. General: Nontoxic, no acute distress, chronically ill-appearing. Frail and emaciated Derm: Skin warm and dry, normal coloration for ethnicity. Head: Atraumatic, normocephalic and symmetric. Eyes: EOM's intact, no lid lag, and anicteric sclera Mouth: no lip lesions, mucus membranes moist Cardiovascular: regular rate and rhythm with normal S1S2, no murmur, positive posterior tibial pulses bilaterally, and cap refill < 2 seconds. Lungs: Respirations even, regular, and unlabored on supplemental oxygen. Lungs diffuse coarse rhonchi throughout with expiratory wheezes. Abdominal: soft, nontender to palpation, no guarding, no appreciable organomegaly Ext: ROM intact. No gross muscle atrophy, no edema, no contractures Neuro: Speech clear, face symmetrical and CN II-XII grossly intact with no noted focal neuro deficits Psych: Alert and oriented to person, place, time, and situation. Appropriate and pleasant affect. Assessment and Plan of Care:.. Acute hypoxic respiratory failure COPD with acute exacerbation Metastatic squamous cell carcinoma of lung Concerns for possible pneumonia in patient receiving chemotherapy -Pulmonology following, discussed plan of care in detail with bioinformatics research technician at bedside recommending continue Lasix 40 mg IV daily -Oxygenation to be administered and titrated as needed to maintain SPO2 equal to or greater than 92%. -Telemetry monitoring. -Monitor pulse-oximetry -Duonebs scheduled 4 times daily and as needed for SOB and/or wheezing. -Order placed for flutter valve with instructions -Incentive Spirometry -Steroids: Solu-Medrol 60 mg IVP every 12 hours -Urine Legionella negative. Sputum culture showing no growth. Blood culture negative showing no growth after 72 hours. -Clindamycin 450 mg every 6 hours. CAD status post stenting Paroxysmal atrial fibrillation Hypertension Hyperlipidemia -Monitor vital signs and continue daily medication regimen with amiodarone 200 mg daily, Eliquis 5 mg twice daily, atorvastatin 80 mg nightly, and metoprolol 12.5 mg twice daily, Nicotine dependence -Patient reports that he is cut back significantly on smoking and declines wanting nicotine patch at this time. Data and imaging reviewed: -Labs reviewed. CBC showing stable normocytic anemia with hemoglobin of 7.4. BMP showing hypochloremic hyponatremia with sodium of 134 and chloride of 97. Blood glucose 117. Magnesium 2.2. -Vital signs reviewed. Blood pressure 126/82, heart rate 91, respiratory rate 18, and SpO2 of 94% on 2 L. CODE STATUS: Full code DVT prophylaxis: Eliquis Anticipated discharge date: Pending clinical course Anticipated discharge place: Pending clinical course Patient was seen independently by Nurse Pracitioner. This document was prepared using [employer] dictation software. Please allow for errors in plastic tile layer, while rare they do occur. Tony Vazquez AUDITOR SUPERVISOR rendered care for this patient independently, reviewed the findings and plan as documented in the note above and agree with plan. I did not physically speak with or examine the patient on this date. Objective - Vital Signs Vital signs: Vital Signs Temp 97.8 F 04/07/24 20:21 Pulse 96 04/08/24 08:12 Resp 18 04/08/24 04:22 BP 104/68 04/08/24 04:22 Pulse Ox 88 L 04/08/24 07:59 FiO2 21 04/08/24 07:59 Intake & Output 04/07/24 04/08/24 04/08/24 18:59 06:59 18:59 Intake Total 1610 Output Total 1775 475 Balance -165 -475 Weight 62.9 kg Intake: Intake, IV Titration 350 Amount Azithromycin 500 mg In 250 Sodium Chloride 0.9% 250 ml @ 250 mls/hr IVPB DAILY [facility] Rx#:[id number] Cefepime 2 gm In Sodium 100 Chloride 0.9% 100 ml @ 25 mls/hr IVPB Q8HR [facility] Rx# :[id number] Oral 1260 Output: Urine 0625 475 Other: Voiding Method Urinal Urinal # Voids 250 - Labs CBC & Chem 7: 04/08/24 06:35 04/08/24 06:35 Labs: Abnormal Lab Results - Last 24 Hours (Table) 04/07/24 04/07/24 04/07/24 Range/Units 07:30 07:30 11:35 RBC 2.66 L (4.30-5.90) m/uL Hgb 7.7 L (13.0-17.5) gm/dL Hct 26.3 L (39.0-53.0) % MCHC 29.4 L (31.0-37.0) g/dL RDW 23.0 H (11.5-15.5) % Sodium 132 L (137-145) mmol/L Chloride 95 L (98-107) mmol/L Creatinine 0.59 L (0.66-1.25) mg/dL Glucose 105 H (74-99) mg/dL POC Glucose (mg/dL) 141 H (70-110) mg/dL Magnesium 2.4 H (1.6-2.3) mg/dL Total Protein 5.7 L (6.3-8.2) g/dL Albumin 3.0 L (3.5-5.0) g/dL 04/07/24 04/07/24 04/08/24 Range/Units 16:08 20:07 05:56 RBC (4.30-5.90) m/uL Hgb (13.0-17.5) gm/dL Hct (39.0-53.0) % MCHC (31.0-37.0) g/dL RDW (11.5-15.5) % Sodium (137-145) mmol/L Chloride (98-107) mmol/L Creatinine (0.66-1.25) mg/dL Glucose (74-99) mg/dL POC Glucose (mg/dL) 145 H 167 H 149 H (70-110) mg/dL Magnesium (1.6-2.3) mg/dL Total Protein (6.3-8.2) g/dL Albumin (3.5-5.0) g/dL 04/08/24 04/08/24 Range/Units 06:35 06:35 RBC 2.50 L (4.30-5.90) m/uL Hgb 7.4 L (13.0-17.5) gm/dL Hct 24.4 L (39.0-53.0) % MCHC 30.5 L (31.0-37.0) g/dL RDW 23.2 H (11.5-15.5) % Sodium 134 L (137-145) mmol/L Chloride 97 L (98-107) mmol/L Creatinine 0.64 L (0.66-1.25) mg/dL Glucose 117 H (74-99) mg/dL POC Glucose (mg/dL) (70-110) mg/dL Magnesium (1.6-2.3) mg/dL Total Protein (6.3-8.2) g/dL Albumin (3.5-5.0) g/dL Microbiology - Last 24 Hours (Table) 04/05/24 00:46 Blood Culture - Preliminary Blood 04/05/24 00:18 Gram Stain - Final Sputum Sputum Culture - Final
[2024-04-08 16:08] LABS: Glucose,Whole Blood 140 mg/dL (70-110)
[2024-04-08 20:01] LABS: Glucose,Whole Blood 139 mg/dL (70-110)
[2024-04-09] MEDS: IPRATROPIUM-ALBUTEROL 3 ML NEB INHALATION PRN (00:07)
[2024-04-09 05:48] LABS: Glucose,Whole Blood 159 mg/dL (70-110)
[2024-04-09 06:26] LABS: Anisocytosis Moderate; HCT 25.1 % (39.0-53.0); HGB 7.5 gm/dL (13.0-17.5); Hypochromasia Marked; MCH 29.3 pg (25.0-35.0); MCHC 29.9 g/dL (31.0-37.0); MCV 98.1 fL (80.0-100.0); Macrocytosis Moderate; Platelet Count 292 k/uL (150-450); Poikilocytosis Moderate; RBC 2.56 m/uL (4.30-5.90); RDW 23.7 % (11.5-15.5); WBC 8.4 k/uL (3.8-10.6)
[2024-04-09 06:37] LABS: ALT 19 U/L (4-49); AST 18 U/L (17-59); African American GFR (CKD) >90 (>60 ml/min/1.73 sqM); Albumin 2.6 g/dL (3.5-5.0); Alkaline Phosphatase 69 U/L (38-126); Anion Gap 7 mmol/L; Blood Urea Nitrogen 16 mg/dL (9-20); Calcium 8.3 mg/dL (8.4-10.2); Carbon Dioxide 31 mmol/L (22-30); Chloride 96 mmol/L (98-107); Glucose 135 mg/dL (74-99); Magnesium 2.1 mg/dL (1.6-2.3); Non-African American GFR(CKD) >90 (>60 ml/min/1.73 sqM); Potassium 3.3 mmol/L (3.5-5.1); Sodium 134 mmol/L (137-145); Total Bilirubin 0.4 mg/dL (0.2-1.3); Total Protein 5.1 g/dL (6.3-8.2)
[2024-04-09 11:29] LABS: Glucose,Whole Blood 120 mg/dL (70-110)
[2024-04-09] MEDS: POTASSIUM CHLORIDE ER 20 MEQ TAB.ER PO STA (13:23)
--- NOTE | 2024-04-09 13:45 | P.PN ---
Subjective Progress Note Date: 04/09/24 Hospital course: Patient is a pleasant 63-year-old male with a past medical history of squamous cell carcinoma of lung currently undergoing chemotherapy, COPD not home oxygen dependent, CAD status post stenting, ischemic cardiomyopathy, paroxysmal atrial fibrillation on anticoagulation with Eliquis, hypertension, hyperlipidemia, and nicotine dependence.. He reports following with procurement manager/oncologist Dr. Hoyos and states last chemotherapy treatment was 1 week ago tomorrow. He presented to the emergency department on 04/04/2024 secondary to reports of shortness of breath accompanied by worsening cough with production of yellowish-brown sputum. Upon arrival to our facility, patient underwent evaluation in the emergency department. Vital signs upon arrival showing blood pressure 119/82, heart rate 111, respiratory rate 22, temp 98.2 F, and SpO2 of 99% on room air. EKG completed showing sinus tachycardia at 107 bpm with repeat EKG showing atrial f ibrillation with RVR at 133 bpm T wave inversion in lateral leads I, aVL, V5 and V6.. Chest x-ray showing moderate amount of airspace opacities in bilateral lungs concentrated in the right middle/upper lung zones and left perihilar regions suggestive of pneumonia. Labs completed and reviewed. CBC showing normocytic anemia with hemoglobin of 9.0 chronic and at baseline. Coagulation profile normal findings. BMP showing hypochloremic hyponatremia with sodium of 135 and chloride of 96. Blood glucose 115. Lactic acid 2.6. Magnesium 2.0. Liver profile unremarkable. Troponin was negative at less than 0.012 and proBNP was 2360. Influenza A, influenza B, RSV, and COVID PCR negative. CT chest with IV contrast completed showing increasing soft tissue density throughout the mediastinum encasing vessels and bronchi, a 1.4 cm paratracheal mass with subtle hypodense center may be a necrotic lymph node versus soft tissue mass, increasing lung findings suspicious for metastatic disease and increasing pericardial effusion. Patient admitted under our services with consultation to pulmonology and oncology. Physical exam: Patient seen and fully evaluated at bedside this morning. Patient continues to complain of shortness of breath and states today he has have difficulty bringing up his sputum production. Encouraged use of flutter valve and incentive spirometer. Vital signs reviewed and stable. General: Nontoxic, no acute distress, chronically ill-appearing. Frail and emaciated Derm: Skin warm and dry, normal coloration for ethnicity. Head: Atraumatic, normocephalic and symmetric. Eyes: EOM's intact, no lid lag, and anicteric sclera Mouth: no lip lesions, mucus membranes moist Cardiovascular: regular rate and rhythm with normal S1S2, no murmur, positive posterior tibial pulses bilaterally, and cap refill < 2 seconds. Lungs: Respirations even, regular, and unlabored on supplemental oxygen. Lungs diffuse coarse rhonchi throughout with expiratory wheezes. Abdominal: soft, nontender to palpation, no guarding, no appreciable organomegaly Ext: ROM intact. No gross muscle atrophy, 1+ pitting BLE edema, no contractures Neuro: Speech clear, face symmetrical and CN II-XII grossly intact with no noted focal neuro deficits Psych: Alert and oriented to person, place, time, and situation. Appropriate and pleasant affect. Assessment and Plan of Care:.. Acute hypoxic respiratory failure COPD with acute exacerbation Metastatic squamous cell carcinoma of lung Concerns for possible pneumonia, recent bronchoscopy completed positive for MSSA -Pulmonology following, reviewed documentation in chart -Oxygenation to be administered and titrated as needed to maintain SPO2 equal to or greater than 92%. -Telemetry monitoring. -Monitor pulse-oximetry -Duonebs scheduled 4 times daily and as needed for SOB and/or wheezing. -Order placed for flutter valve with instructions -Incentive Spirometry -Steroids: Solu-Medrol 60 mg IVP every 12 hours -Urine Legionella negative. Sputum culture showing no growth. Blood culture negative showing no growth after 72 hours. -Continue Clindamycin 450 mg every 6 hours per recommendations of pulmonolgy due to inability to completely rule out underlying infectious process. CAD status post stenting Paroxysmal atrial fibrillation Hypertension Hyperlipidemia -Monitor vital signs and continue daily medication regimen with amiodarone 200 mg daily, Eliquis 5 mg twice daily, atorvastatin 80 mg nightly, and metoprolol 12.5 mg twice daily, Nicotine dependence -Patient reported that he has cut back significantly on smoking and declined wanting nicotine patch at this time. Data and imaging reviewed: -Labs reviewed. CBC showing stable normocytic anemia with hemoglobin of 7.5. BMP showing hypochloremic hyponatremia with sodium of 134 and chloride of 96. Potassium 3.3. Blood glucose 135. Magnesium 2.1. -Vital signs reviewed. Blood pressure 107/59, heart rate 96, respiratory rate 24, temp 96.7 F, and SpO2 of 95% on 3 L. CODE STATUS: Full code DVT prophylaxis: Eliquis Anticipated discharge date: Pending clinical course Anticipated discharge place: Pending clinical course Patient was seen independently by Nurse Pracitioner. This document was prepared using [employer] dictation software. Please allow for errors in automotive airconditioning mechanic, while rare they do occur. Tony Vazquez VICE PRESIDENT [employer] rendered care for this patient independently, reviewed the findings and plan as documented in the note above and agree with plan. I did not physically speak with or examine the patient on this date. Objective - Vital Signs Vital signs: Vital Signs Temp 96.7 F L 04/09/24 09:53 Pulse 92 04/09/24 11:37 Resp 24 04/09/24 09:53 BP 107/59 04/09/24 09:53 Pulse Ox 95 04/09/24 09:53 FiO2 21 04/08/24 07:59 Intake & Output 04/08/24 04/09/24 04/09/24 18:59 06:59 18:59 Intake Total 480 900 Output Total 9179 245 8202 Balance -1320 -500 -1150 Weight 62.4 kg 62.4 kg Intake: Oral 480 900 Output: Urine 5969 940 4741 Other: Voiding Method Urinal Urinal - Labs CBC & Chem 7: 04/09/24 06:06 04/09/24 06:06 Labs: Abnormal Lab Results - Last 24 Hours (Table) 04/08/24 04/08/24 04/09/24 Range/Units 16:04 20:00 05:46 RBC (4.30-5.90) m/uL Hgb (13.0-17.5) gm/dL Hct (39.0-53.0) % MCHC (31.0-37.0) g/dL RDW (11.5-15.5) % Sodium (137-145) mmol/L Potassium (3.5-5.1) mmol/L Chloride (98-107) mmol/L Carbon Dioxide (22-30) mmol/L Creatinine (0.66-1.25) mg/dL Glucose (74-99) mg/dL POC Glucose (mg/dL) 140 H 139 H 159 H (70-110) mg/dL Calcium (8.4-10.2) mg/dL Total Protein (6.3-8.2) g/dL Albumin (3.5-5.0) g/dL 04/09/24 04/09/24 04/09/24 Range/Units 06:06 06:06 11:28 RBC 2.56 L (4.30-5.90) m/uL Hgb 7.5 L (13.0-17.5) gm/dL Hct 25.1 L (39.0-53.0) % MCHC 29.9 L (31.0-37.0) g/dL RDW 23.7 H (11.5-15.5) % Sodium 134 L (137-145) mmol/L Potassium 3.3 L (3.5-5.1) mmol/L Chloride 96 L (98-107) mmol/L Carbon Dioxide 31 H (22-30) mmol/L Creatinine 0.63 L (0.66-1.25) mg/dL Glucose 135 H (74-99) mg/dL POC Glucose (mg/dL) 120 H (70-110) mg/dL Calcium 8.3 L (8.4-10.2) mg/dL Total Protein 5.1 L (6.3-8.2) g/dL Albumin 2.6 L (3.5-5.0) g/dL Microbiology - Last 24 Hours (Table) 04/05/24 00:46 Blood Culture - Preliminary Blood
--- NOTE | 2024-04-09 14:44 | CDI ---
Documentation Clarification Form Date: 04/09/2024 02:16:10 PM From: Nohemi Livingston RN CCDS Phone: [phone] Admit Date: 04/05/2024 12:14:00 AM Patient Name: Fracisco Rene Visit Number: [id number] Discharge Date: ATTENTION: The Clinical Documentation Specialists (CDI) and [facility] Coding Staff appreciate your assistance in clarifying documentation. Please respond to the clarification below the line at the bottom and electronically sign. The CDI & [facility] Coding staff will review the response and follow-up if needed. Please note: Queries are made part of the Legal Health Record. If you have any questions, please contact the author of this message via ITS. Provider: Tony Vazquez Your patient is receiving the followin/22 Lasix 40mg IV Daily . Please clarify what condition/diagnosis is being treated. History/Risk Factors: 63 year old male presents to the ED with shortness of breath. Medical history: Lung cancer on chemotherapy, COPD, atrial fib, HTN and HLD. 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 Increasing pericardial effusion. Increasing lung findings suspicious for metastatic disease. CXR 04/06:.Similar patchy opacities within the right upper and mid lung field ECHO, 04/07 EF 35-40%: Moderately to severely impaired left ventricular systolic function. Mild to moderate mitral and tricuspid regurgitation with moderate pulmonary hypertension. Trace pericardial effusion. Treatment: 04/07 Lasix 40mg IV Daily, Lopressor 12.5mg PO BID What diagnosis are you treating with Lasix? [ x] Acute systolic heart failure [ ] No additional diagnosis [ ] Other, please specify [ ] Unable to determine (Template Last Reviewed: March 2020) ANILA
[2024-04-09 16:33] LABS: Glucose,Whole Blood 195 mg/dL (70-110)
--- NOTE | 2024-04-09 17:38 | P.PN ---
Subjective Progress Note Date: 04/09/24 Patient is a 63-year-old male with past medical history significant for COPD, lung cancer, hypertension, hyperlipidemia, CAD with previous PCI/stents, ischemic cardiomyopathy, and atrial fibrillation anticoagulated on Eliquis. Patient is known to have metastatic non-small cell lung cancer. His oncologist is Dr. Hoyos. Treated in the past with chemo/radiation, and patient is currently on systemic therapy, 2 weeks on 1 week off. Of note, patient has had multiple recent hospitalizations, as well as, recent bronchoscopy with airway examination and BAL on January 23. Washing was positive for MSSA. More recently on 03/13/2024, patient was treated for right upper lobe pneumonia, possibly postobstructive, on an outpatient basis with a course of Levaquin by Dr. Kumar. Patient presents emergency department late last night with a chief complaint of shortness of breath. Associated productive cough with yellow sputum production. Workup in the emergency department including a chest x-ray showing worsening multifocal airspace disease particularly in the right middle/upper lung zones as well as left perihilar region. This likely represents disease progression, with possible superimposed infectious process. CBC: WBC count of 6.8, hemoglobin 9, platelets 157. CMP: Sodium 135, potassium 3.7, chloride 96, serum bicarb 28, BUN 17, creatinine 0.65, glucose 115. Lactic was 2.6 and is down to 1. Troponin less than 0.012. NT proBNP 2360. EKG: Sinus tachycardia, rate 107 bpm, no acute ST segment elevations. Viral screen negative for influenza, RSV, COVID. Patient was placed on empiric antibiotics in the ED in the form of azithromycin and cefepime. Patient currently being evaluated in the emergency department. He is on room air. Nondistressed. He has been coughing up clear to yellow phlegm into a bottle. Denies sick contacts. Denies any fever/chills, hemoptysis, chest pain. Does report worsening lower extremity swelling. Appears the patient flipping in and out of atrial fibrillation with rapid ventricular response. He has known history of atrial fibrillation, and his ca rdiac medications are yet to be restarted. Denies chest pain, heart palpitations, lightheadedness/syncopal events, orthopnea, PND. Most recent available echocardiogram from 09/06/2023 demonstrating a preserved ejection fraction. Current most recent vital signs: Temperature 98.2 F, heart rate 90 bpm, blood pressure 103/78 mmHg, nontachypneic SpO2 reading 99% on room air. On 04/06/2024, the patient is being seen for a follow-up. Slightly improved compared to yesterday. Continues to have a cough and congestion in his chest. Sputum sample was given and the cultures are still pending for now. Remains to be bronchospastic and wheezy. No fever. No hemodynamic instability. No hemoptysis. The patient had a CAT scan of the chest yesterday and this was reviewed and it shows progression of his disease with increased soft tissue density throughout the mediastinum consistent with progression of his squamous cell carcinoma in addition to a cavitating suprahilar mass. He was receiving IV Gemzar on outpatient basis as palliative systemic chemotherapy. No other new complaints otherwise for now. Remains on DuoNeb. Remains on IV cefepime and Zithromax. He is also on IV Solu-Medrol 60 mg every 6 hours. No other significant events overnight. On 04/07/2024, the patient is being seen for a follow-up. Continues to have some cough and congestion although less compared to yesterday. The sputum sample is still pending for now. Noted the patient's procalcitonin level was not elevated and a pneumonia is felt to be less likely. His presentation is not related to COPD exacerbation and underlying lung cancer. The patient was receiving IV Gemzar regarding his lung cancer on outpatient basis. Feels well. No new complaints. Appetite is diminished. Currently on 2 L of oxygen by nasal cannula. White cell count is at 5.4 with a hemoglobin of 7.7, BUN 16 with a creatinine 0.59 and sodium was 132. LFTs are normal. No other significant events overnight. Blood cultures have been negative. On 04/08/2024, the patient is being seen for a follow-up. The patient is currently on oxygen and at 2 L/min nasal cannula. Continues to have cough and congestion and is still producing thick mucus. The patient is currently on clindamycin. The patient is on DuoNeb nebulized treatments [id number]. The patient on Symbicort. The patient remains on IV Solu-Medrol 60 mg IV push e very 6 hours. Sputum cultures have been negative. As mentioned, he is known to have underlying lung cancer, which is metastatic squamous cell carcinoma the patient has been receiving palliative chemotherapy with Gemzar. Blood work from today shows a white cell count of 7.8, hemoglobin 7.4 and platelet count of 257. BUN is 15 with a creatinine of 0.6. Sodium levels at 134. The patient is seen today April 09, 2024 in follow-up on the selective care unit. He is currently sitting up at the bedside. Awake and alert in no acute distress. Still quite dyspneic with minimal conversation. Dyspneic with minimal exertion. He is maintaining O2 saturations in the 90s on 3 L/min per nasal cannula. He is continued on DuoNeb and elations, Symbicort, Solu-Medrol. Antibiotics in the form of clindamycin. White count 8.4. Hemoglobin 7.5. Platelets 292. Sodium 134. Potassium 3.3. Bicarb 31. BUN 16. Creatinine 0.63. Glucose 135. He is anticoagulated with Eliquis. Remains on IV diur etics. Currently in a -1.8 L balance. Objective - Vital Signs Vital signs: Vital Signs Temp 96.7 F L 04/09/24 09:53 Pulse 88 04/09/24 16:50 Resp 18 04/09/24 12:16 BP 124/75 04/09/24 12:16 Pulse Ox 97 04/09/24 12:16 FiO2 21 04/08/24 07:59 Intake & Output 04/08/24 04/09/24 04/09/24 18:59 06:59 18:59 Intake Total 480 900 Output Total 7355 503 7704 Balance -1320 -500 -1150 Weight 62.4 kg 62.4 kg Intake: Oral 480 900 Output: Urine 9903 957 2076 Other: Voiding Method Urinal Urinal Urinal - Exam GENERAL EXAM: Alert, thin 63-year-old male patient, on 3 L nasal cannula, fairly comfortable in no apparent distress. HEAD: Normocephalic. EYES: Normal reaction of pupils, equal size. NOSE: Clear with pink turbinates. THROAT: No erythema or exudates. NECK: No masses, no JVD. CHEST: No chest wall deformity. LUNGS: Equal air entry with bilateral scattered rhonchi more so on the right lung. CVS: S1 and S2 normal with no audible murmur, regular rhythm. ABDOMEN: No hepatosplenomegaly, normal bowel sounds, no guarding or rigidity. SPINE: No scoliosis or deformity SKIN: No rashes CENTRAL NERVOUS SYSTEM: No focal deficits, tone is normal in all 4 extremities. EXTREMITIES: There is 1-2+ peripheral edema. No clubbing, no cyanosis. Peripheral pulses are intact. - Labs CBC & Chem 7: 04/09/24 06:06 04/09/24 06:06 Labs: Abnormal Lab Results - Last 24 Hours (Table) 04/08/24 04/09/24 04/09/24 Range/Units 20:00 05:46 06:06 RBC 2.56 L (4.30-5.90) m/uL Hgb 7.5 L (13.0-17.5) gm/dL Hct 25.1 L (39.0-53.0) % MCHC 29.9 L (31.0-37.0) g/dL RDW 23.7 H (11.5-15.5) % Sodium (137-145) mmol/L Potassium (3.5-5.1) mmol/L Chloride (98-107) mmol/L Carbon Dioxide (22-30) mmol/L Creatinine (0.66-1.25) mg/dL Glucose (74-99) mg/dL POC Glucose (mg/dL) 139 H 159 H (70-110) mg/dL Calcium (8.4-10.2) mg/dL Total Protein (6.3-8.2) g/dL Albumin (3.5-5.0) g/dL 04/09/24 04/09/24 04/09/24 Range/Units 06:06 11:28 16:31 RBC (4.30-5.90) m/uL Hgb (13.0-17.5) gm/dL Hct (39.0-53.0) % MCHC (31.0-37.0) g/dL RDW (11.5-15.5) % Sodium 134 L (137-145) mmol/L Potassium 3.3 L (3.5-5.1) mmol/L Chloride 96 L (98-107) mmol/L Carbon Dioxide 31 H (22-30) mmol/L Creatinine 0.63 L (0.66-1.25) mg/dL Glucose 135 H (74-99) mg/dL POC Glucose (mg/dL) 120 H 195 H (70-110) mg/dL Calcium 8.3 L (8.4-10.2) mg/dL Total Protein 5.1 L (6.3-8.2) g/dL Albumin 2.6 L (3.5-5.0) g/dL Microbiology - Last 24 Hours (Table) 04/05/24 00:18 Legionella Culture - Preliminary Sputum 04/05/24 00:46 Blood Culture - Preliminary Blood Assessment and Plan Assessment: Acute on chronic shortness of breath, chest x-ray showing worsening multifocal airspace disease particularly in the right middle/upper lung zones, as well as, left perihilar region. This likely represents disease progression, superimposed infectious process is not excluded. The patient is currently on 3 L of oxygen by nasal cannula. Remains bronchospastic and wheezy. Recent bronchoscopy, January 23, negative for cytology and microbiology positive for MSSA Metastatic squamous cell carcinoma of the lung, diagnosed initially 2020. P atient previously treated with chemo/radiation. Patient is restarted on systemic therapy and the patient is currently on IV Gemzar. Follow-up CAT scan of the chest done on 04/05/2024 is consistent with disease progression regarding his squamous cell carcinoma as noted. Superimposed pneumonia is felt to be less likely. Moderate chronic obstructive pulmonary disease, with an FEV1 51% of predicted Paroxysmal atrial fibrillation, transient bouts of RVR on monitor Bilateral lower extremity edema Chronic anemia, hemoglobin stable History of hypertension. History of hyperlipidemia. History of CAD with previous PCI/stent. History of ischemic cardiomyopathy, most recent available echocardiogram from August, showing improvement in left ventricular ejection fraction of 55 to 60% Chronic and ongoing tobacco dependence. Plan: The patient was seen and evaluated Labs and medications reviewed Continue the current treatment plan Overall prognosis remains poor We will continue to follow I have personally seen and examined the patient, performed the documentation and the assessment and plan as written. Number of minutes spent on the visit: 10 Dictation was produced using [employer] dictation software. Please excuse any grammatical, word or spelling errors.
[2024-04-09 20:35] LABS: Glucose,Whole Blood 213 mg/dL (70-110)
[2024-04-10 06:20] LABS: Glucose,Whole Blood 129 mg/dL (70-110)
[2024-04-10 07:13] LABS: Anisocytosis Moderate; HCT 28.5 % (39.0-53.0); Hypochromasia Marked; MCH 27.8 pg (25.0-35.0); MCHC 28.1 g/dL (31.0-37.0); MCV 98.8 fL (80.0-100.0); Macrocytosis Moderate; Mean Platelet Volume 8.6; Platelet Count 319 k/uL (150-450); Poikilocytosis Slight; RBC 2.88 m/uL (4.30-5.90); RDW 23.3 % (11.5-15.5); WBC 8.8 k/uL (3.8-10.6)
[2024-04-10 07:32] LABS: ALT 17 U/L (4-49); AST 17 U/L (17-59); African American GFR (CKD) >90 (>60 ml/min/1.73 sqM); Albumin 2.6 g/dL (3.5-5.0); Alkaline Phosphatase 78 U/L (38-126); Anion Gap 3 mmol/L; Blood Urea Nitrogen 12 mg/dL (9-20); Calcium 8.7 mg/dL (8.4-10.2); Carbon Dioxide 35 mmol/L (22-30); Chloride 96 mmol/L (98-107); Glucose 116 mg/dL (74-99); Magnesium 2.2 mg/dL (1.6-2.3); Non-African American GFR(CKD) >90 (>60 ml/min/1.73 sqM); Potassium 3.9 mmol/L (3.5-5.1); Sodium 134 mmol/L (137-145); Total Bilirubin 0.4 mg/dL (0.2-1.3); Total Protein 5.1 g/dL (6.3-8.2)
[2024-04-10 11:56] LABS: Glucose,Whole Blood 109 mg/dL (70-110)
--- NOTE | 2024-04-10 12:47 | P.PN ---
Subjective Progress Note Date: 04/10/24 Hospital course: Patient is a pleasant 63-year-old male with a past medical history of squamous cell carcinoma of lung currently undergoing chemotherapy, COPD not home oxygen dependent, CAD status post stenting, ischemic cardiomyopathy, paroxysmal atrial fibrillation on anticoagulation with Eliquis, chronic diastolic heart failure, hypertension, hyperlipidemia, and nicotine dependence.. He reports following with window trimmer/oncologist Dr. Hoyos and states last chemotherapy treatment was 1 week ago tomorrow. He presented to the emergency department on 04/04/2024 secondary to reports of shortness of breath accompanied by worsening cough with production of yellowish-brown sputum. Upon arrival to our facility, patient underwent evaluation in the emergency department. Vital signs upon arrival showing blood pressure 119/82, heart rate 111, respiratory rate 22, temp 98.2 F, and SpO2 of 99% on room air. EKG completed showing sinus tachycardia at 107 bpm with repeat EKG showing atrial fibrillation with RVR at 133 bpm T wave inversion in lateral leads I, aVL, V5 and V6.. Chest x-ray showing moderate amount of airspace opacities in bilateral lungs concentrated in the right middle/upper lung zones and left perihilar regions suggestive of pneumonia. Labs completed and reviewed. CBC showing normocytic anemia with hemoglobin of 9.0 chronic and at baseline. Coagulation profile normal findings. BMP showing hypochloremic hyponatremia with sodium of 135 and chloride of 96. Blood glucose 115. Lactic acid 2.6. Magnesium 2.0. Liver profile unremarkable. Troponin was negative at less than 0.012 and proBNP was 2360. Influenza A, influenza B, RSV, and COVID PCR negative. CT chest with IV contrast completed showing increasing soft tissue density throughout the mediastinum encasing vessels and bronchi, a 1.4 cm paratracheal mass with subtle hypodense center may be a necrotic lymph node versus soft tissue mass, increasing lung findings suspicious for metastatic disease and increasing pericardial effusion. Patient admitted under our services with consultation to pulmonology and oncology. Physical exam: Patient seen and fully evaluated at bedside this morning. Patient continues to complain of shortness of breath and difficulty bringing up his sputum production. Encouraged use of flutter valve and incentive spirometer. Pulmonology taking patient for bronchoscopy with BAL tomorrow. Patient denies having any other needs or complaints at this time. Vital signs reviewed and stable. General: Nontoxic, no acute distress, chronically ill-appearing. Frail and emaciated Derm: Skin warm and dry, normal coloration for ethnicity. Head: Atraumatic, normocephalic and symmetric. Eyes: EOM's intact, no lid lag, and anicteric sclera Mouth: no lip lesions, mucus membranes moist Cardiovascular: regular rate and rhythm with normal S1S2, no murmur, positive posterior tibial pulses bilaterally, and cap refill < 2 seconds. Lungs: Respirations even, regular, and unlabored on supplemental oxygen. Lungs diffuse coarse rhonchi throughout with expiratory wheezes. Abdominal: soft, nontender to palpation, no guarding, no appreciable organomegaly Ext: ROM intact. No gross muscle atrophy, 1+ pitting BLE edema, no contractures. Neuro: Speech clear, face symmetrical and CN II-XII grossly intact with no noted focal neuro deficits Psych: Alert and oriented to person, place, time, and situation. Appropriate and pleasant affect. Assessment and Plan of Care:.. Acute hypoxic respiratory failure COPD with acute exacerbation Metastatic squamous cell carcinoma of lung Concerns for possible pneumonia, recent bronchoscopy completed positive for MSSA -Pulmonology following, planning to take patient for bronchoscopy with BAL tomorrow. -Oxygenation to be administered and titrated as needed to maintain SPO2 equal to or greater than 92%. -Telemetry monitoring. -Monitor pulse-oximetry -Duonebs scheduled 4 times daily and as needed for SOB and/or wheezing. -Order placed for flutter valve with instructions -Incentive Spirometry -Steroids: Solu-Medrol 60 mg IVP every 12 hours -Urine Legionella negative. Sputum culture showing no growth. Blood culture negative showing no growth after 72 hours. -Continue Clindamycin 450 mg every 6 hours per recommendations of pulmonolgy due to inability to completely rule out underlying infectious process. Acute on chronic diastolic heart failure with mild exacerbation CAD status post stenting Paroxysmal atrial fibrillation Hypertension Hyperlipidemia -Continue Lasix 40 mg IVP daily. -Monitor vital signs and continue daily medication regimen with amiodarone 200 mg daily, Eliquis 5 mg twice daily, atorvastatin 80 mg nightly, and metoprolol 12.5 mg twice daily, Severe protein calorie malnutrition -Protein 5.1 and albumin 2.6. Severe protein calorie malnutrition likely secondary to advanced squamous cell carcinoma of the lung with metastasis and decreased oral intake. -Patient started on protein supplements 3 times daily between meals and consult placed to dietitian. Nicotine dependence -Patient reported that he has cut back significantly on smoking and declined wanting nicotine patch at this time. Data and imaging reviewed: -Labs reviewed. CBC showing stable normocytic anemia with hemoglobin of 8.0. BMP showing hypochloremic hyponatremia with sodium of 134, chloride of 96, bicarb 35, and anion gap of 3. Potassium 3.9. Blood glucose 116. Magnesium 2.2. Hypoalbuminemia with albumin of 2.6. -Vital signs reviewed. Blood pressure 119/73, heart rate 89, respiratory rate 18, temp 98.0 F, and SpO2 of 93% on 2 L. CODE STATUS: Full code DVT prophylaxis: Eliquis Anticipated discharge date: Pending clinical course Anticipated discharge place: Pending clinical course Patient was seen independently by Nurse Pracitioner. This document was prepared using [employer] dictation software. Please allow for errors in uppers edge burnisher, while rare they do occur. Tony Vazquez NP rendered care for this patient independently, reviewed the findings and plan as documented in the note above and agree with plan. I did not physically speak with or examine the patient on this date. Objective - Vital Signs Vital signs: Vital Signs Temp 98.0 F 04/10/24 04:00 Pulse 89 04/10/24 04:00 Resp 18 04/10/24 04:00 BP 119/73 04/10/24 04:00 Pulse Ox 93 L 04/10/24 04:00 FiO2 21 04/08/24 07:59 Intake & Output 04/09/24 04/10/24 04/10/24 18:59 06:59 18:59 Intake Total 1020 240 Output Total 0 850 Balance -1030 -850 240 Weight 62.4 kg 60.1 kg Intake: Oral 1020 240 Output: Urine 0 850 Other: Voiding Method Urinal Urinal - Labs CBC & Chem 7: 04/10/24 06:08 04/10/24 06:08 Labs: Abnormal Lab Results - Last 24 Hours (Table) 04/09/24 04/09/24 04/09/24 Range/Units 11:28 16:31 20:33 RBC (4.30-5.90) m/uL Hgb (13.0-17.5) gm/dL Hct (39.0-53.0) % MCHC (31.0-37.0) g/dL RDW (11.5-15.5) % Sodium (137-145) mmol/L Chloride (98-107) mmol/L Carbon Dioxide (22-30) mmol/L Creatinine (0.66-1.25) mg/dL Glucose (74-99) mg/dL POC Glucose (mg/dL) 120 H 195 H 213 H (70-110) mg/dL Total Protein (6.3-8.2) g/dL Albumin (3.5-5.0) g/dL 04/10/24 04/10/24 04/10/24 Range/Units 06:08 06:08 06:18 RBC 2.88 L (4.30-5.90) m/uL Hgb 8.0 L (13.0-17.5) gm/dL Hct 28.5 L (39.0-53.0) % MCHC 28.1 L (31.0-37.0) g/dL RDW 23.3 H (11.5-15.5) % Sodium 134 L (137-145) mmol/L Chloride 96 L (98-107) mmol/L Carbon Dioxide 35 H (22-30) mmol/L Creatinine 0.54 L (0.66-1.25) mg/dL Glucose 116 H (74-99) mg/dL POC Glucose (mg/dL) 129 H (70-110) mg/dL Total Protein 5.1 L (6.3-8.2) g/dL Albumin 2.6 L (3.5-5.0) g/dL Microbiology - Last 24 Hours (Table) 04/05/24 00:18 Legionella Culture - Preliminary Sputum
--- NOTE | 2024-04-10 13:31 | P.PN ---
Subjective Progress Note Date: 04/10/24 Pt reporting increased SOB, worse on exertion. Placed on 3L O2, SPO2 90%. Sputum has improved since admit, still having some brownish sputum production. Objective - Vital Signs Vital signs: Vital Signs Temp 97.9 F 04/10/24 08:00 Pulse 100 04/10/24 09:48 Resp 28 H 04/10/24 08:00 BP 110/71 04/10/24 08:00 Pulse Ox 90 L 04/10/24 08:00 FiO2 21 04/08/24 07:59 Intake & Output 04/09/24 04/10/24 04/10/24 18:59 06:59 18:59 Intake Total 1020 240 Output Total 2049 850 800 Balance -1030 -850 -560 Weight 62.4 kg 60.1 kg Intake: Oral 1020 240 Output: Urine 2049 850 800 Other: Voiding Method Urinal Urinal # Bowel Movements 1 - Constitutional General appearance: Present: no acute distress, thin - EENT Eyes: Present: anicteric sclerae, EOMI ENT: Present: hearing grossly normal - Respiratory Details: breathing labored with conversation - Cardiovascular Details: skin warm and dry - Integumentary Integumentary: Absent: cyanotic - Musculoskeletal Musculoskeletal: Present: generalized weakness - Psychiatric Psychiatric: Present: A&O x's 3 - Labs CBC & Chem 7: 04/10/24 06:08 04/10/24 06:08 Labs: Abnormal Lab Results - Last 24 Hours (Table) 04/09/24 04/09/24 04/10/24 Range/Units 16:31 20:33 06:08 RBC 2.88 L (4.30-5.90) m/uL Hgb 8.0 L (13.0-17.5) gm/dL Hct 28.5 L (39.0-53.0) % MCHC 28.1 L (31.0-37.0) g/dL RDW 23.3 H (11.5-15.5) % Sodium (137-145) mmol/L Chloride (98-107) mmol/L Carbon Dioxide (22-30) mmol/L Creatinine (0.66-1.25) mg/dL Glucose (74-99) mg/dL POC Glucose (mg/dL) 195 H 213 H (70-110) mg/dL Total Protein (6.3-8.2) g/dL Albumin (3.5-5.0) g/dL 04/10/24 04/10/24 Range/Units 06:08 06:18 RBC (4.30-5.90) m/uL Hgb (13.0-17.5) gm/dL Hct (39.0-53.0) % MCHC (31.0-37.0) g/dL RDW (11.5-15.5) % Sodium 134 L (137-145) mmol/L Chloride 96 L (98-107) mmol/L Carbon Dioxide 35 H (22-30) mmol/L Creatinine 0.54 L (0.66-1.25) mg/dL Glucose 116 H (74-99) mg/dL POC Glucose (mg/dL) 129 H (70-110) mg/dL Total Protein 5.1 L (6.3-8.2) g/dL Albumin 2.6 L (3.5-5.0) g/dL Microbiology - Last 24 Hours (Table) 04/05/24 00:18 Legionella Culture - Preliminary Sputum Assessment and Plan (1) Acute exacerbation of chronic obstructive pulmonary disease Current Visit: Yes Status: Acute Priority: High Code(s): J44.1 - CHRONIC OBSTRUCTIVE PULMONARY DISEASE W (ACUTE) EXACERBATION SNOMED Code(s): 224056549 (2) Lung cancer Current Visit: Yes Status: Chronic Priority: High Code(s): C34.90 - MALIGNANT NEOPLASM OF UNSP PART OF UNSP BRONCHUS OR LUNG SNOMED Code(s): 535211503 Plan: COPD exacerbation -Less cough and expectoration. Remains afebrile -Abx completed. Continues IV steroids -CT chest report reviewed, compared to report from Nov 2023. No suspected disease progression or new disease at this time. Plan is for 1 more cycle of treatment after resolution of acute condition then CT with comparison. Pt agre eable with plan. -ECHO showing EF 35-40%. Trace pericardial effusion --Pulmonary following. Due to persisting ERICA, may consider bronch. Will continue to follow Metastatic squamous cell carcinoma -Diagnosis and treatment history as stated in consult. -Patient is most recently been on single agent Gemzar, status post 2 cycles, actually doing fairly well with treatment, mild hematological toxicities -Once acutely recovered will plan for 3rd cycle of Gemzar . -Clinic f/u upon discharge
--- NOTE | 2024-04-10 15:49 | P.PN ---
Subjective Progress Note Date: 04/10/24 Patient is a 63-year-old male with past medical history significant for COPD, lung cancer, hypertension, hyperlipidemia, CAD with previous PCI/stents, ischemic cardiomyopathy, and atrial fibrillation anticoagulated on Eliquis. Patient is known to have metastatic non-small cell lung cancer. His oncologist is Dr. Hoyos. Treated in the past with chemo/radiation, and patient is currently on systemic therapy, 2 weeks on 1 week off. Of note, patient has had multiple recent hospitalizations, as well as, recent bronchoscopy with airway examination and BAL on January 23. Washing was positive for MSSA. More recently on 03/13/2024, patient was treated for right upper lobe pneumonia, possibly postobstructive, on an outpatient basis with a course of Levaquin by Dr. Kumar. Patient presents emergency department late last night with a chief complaint of shortness of breath. Associated productive cough with yellow sputum production. Workup in the emergency department including a chest x-ray showing worsening multifocal airspace disease particularly in the right middle/upper lung zones as well as left perihilar region. This likely represents disease progression, with possible superimposed infectious process. CBC: WBC count of 6.8, hemoglobin 9, platelets 157. CMP: Sodium 135, potassium 3.7, chloride 96, serum bicarb 28, BUN 17, creatinine 0.65, glucose 115. Lactic was 2.6 and is down to 1. Troponin less than 0.012. NT proBNP 2360. EKG: Sinus tachycardia, rate 107 bpm, no acute ST segment elevations. Viral screen negative for influenza, RSV, COVID. Patient was placed on empiric antibiotics in the ED in the form of azithromycin and cefepime. Patient currently being evaluated in the emergency department. He is on room air. Nondistressed. He has been coughing up clear to yellow phlegm into a bottle. Denies sick contacts. Denies any fever/chills, hemoptysis, chest pain. Does report worsening lower extremity swelling. Appears the patient flipping in and out of atrial fibrillation with rapid ventricular response. He has known history of atrial fibrillation, and his ca rdiac medications are yet to be restarted. Denies chest pain, heart palpitations, lightheadedness/syncopal events, orthopnea, PND. Most recent available echocardiogram from 09/06/2023 demonstrating a preserved ejection fraction. Current most recent vital signs: Temperature 98.2 F, heart rate 90 bpm, blood pressure 103/78 mmHg, nontachypneic SpO2 reading 99% on room air. On 04/06/2024, the patient is being seen for a follow-up. Slightly improved compared to yesterday. Continues to have a cough and congestion in his chest. Sputum sample was given and the cultures are still pending for now. Remains to be bronchospastic and wheezy. No fever. No hemodynamic instability. No hemoptysis. The patient had a CAT scan of the chest yesterday and this was reviewed and it shows progression of his disease with increased soft tissue density throughout the mediastinum consistent with progression of his squamous cell carcinoma in addition to a cavitating suprahilar mass. He was receiving IV Gemzar on outpatient basis as palliative systemic chemotherapy. No other new complaints otherwise for now. Remains on DuoNeb. Remains on IV cefepime and Zithromax. He is also on IV Solu-Medrol 60 mg every 6 hours. No other significant events overnight. On 04/07/2024, the patient is being seen for a follow-up. Continues to have some cough and congestion although less compared to yesterday. The sputum sample is still pending for now. Noted the patient's procalcitonin level was not elevated and a pneumonia is felt to be less likely. His presentation is not related to COPD exacerbation and underlying lung cancer. The patient was receiving IV Gemzar regarding his lung cancer on outpatient basis. Feels well. No new complaints. Appetite is diminished. Currently on 2 L of oxygen by nasal cannula. White cell count is at 5.4 with a hemoglobin of 7.7, BUN 16 with a creatinine 0.59 and sodium was 132. LFTs are normal. No other significant events overnight. Blood cultures have been negative. On 04/08/2024, the patient is being seen for a follow-up. The patient is currently on oxygen and at 2 L/min nasal cannula. Continues to have cough and congestion and is still producing thick mucus. The patient is currently on clindamycin. The patient is on DuoNeb nebulized treatments [id number]. The patient on Symbicort. The patient remains on IV Solu-Medrol 60 mg IV push e very 6 hours. Sputum cultures have been negative. As mentioned, he is known to have underlying lung cancer, which is metastatic squamous cell carcinoma the patient has been receiving palliative chemotherapy with Gemzar. Blood work from today shows a white cell count of 7.8, hemoglobin 7.4 and platelet count of 257. BUN is 15 with a creatinine of 0.6. Sodium levels at 134. The patient is seen today April 09, 2024 in follow-up on the selective care unit. He is currently sitting up at the bedside. Awake and alert in no acute distress. Still quite dyspneic with minimal conversation. Dyspneic with minimal exertion. He is maintaining O2 saturations in the 90s on 3 L/min per nasal cannula. He is continued on DuoNeb and elations, Symbicort, Solu-Medrol. Antibiotics in the form of clindamycin. White count 8.4. Hemoglobin 7.5. Platelets 292. Sodium 134. Potassium 3.3. Bicarb 31. BUN 16. Creatinine 0.63. Glucose 135. He is anticoagulated with Eliquis. Remains on IV diur etics. Currently in a -1.8 L balance. The patient is seen today April 10, 2024 in follow-up on the selective care unit. He is currently resting in bed. Awake and alert in no acute distress. Continues with significant cough and congestion. Unable to clear his secretions. Is in the 90s on 4 L/min per nasal cannula. He is been afebrile. Hemodynamically stable. Sputum culture revealed no growth. Blood culture revealed no growth.. Hemoglobin 8.0. Platelets 319. Sodium 134. Potassium 3.9. Bicarb 35. BUN 12. Creatinine 0.54. Glucose 116. He remains on DuoNeb inhalations, Symbicort, Solu-Medrol. Remains on IV diuretics. Remains on antibiotics in the form of clindamycin. Anticoagulated with Eliquis. Objective - Vital Signs Vital signs: Vital Signs Temp 98.2 F 04/10/24 12:00 Pulse 97 04/10/24 14:00 Resp 20 04/10/24 14:00 BP 108/65 04/10/24 12:00 Pulse Ox 93 L 04/10/24 12:15 FiO2 21 04/08/24 07:59 Intake & Output 04/09/24 04/10/24 04/10/24 18:59 06:59 18:59 Intake Total 1020 240 Output Total 2050 850 1200 Balance -1477 -273 -731 Weight 62.4 kg 60.1 kg 60.1 kg Intake: Oral 1020 240 Output: Urine 2049 1200 Other: Voiding Method Urinal Urinal Urinal # Bowel Movements 1 - Exam GENERAL EXAM: Alert, thin 63-year-old male patient, appears older than stated age, on 4 L nasal cannula, fairly comfortable in no apparent distress. HEAD: Normocephalic. EYES: Normal reaction of pupils, equal size. NOSE: Clear with pink turbinates. THROAT: No erythema or exudates. NECK: No masses, no JVD. CHEST: No chest wall deformity. LUNGS: Equal air entry with bilateral scattered rhonchi more so on the right lung. CVS: S1 and S2 normal with no audible murmur, regular rhythm. ABDOMEN: No hepatosplenomegaly, normal bowel sounds, no guarding or rigidity. SPINE: No scoliosis or deformity SKIN: No rashes CENTRAL NERVOUS SYSTEM: No focal deficits, tone is normal in all 4 extremities. EXTREMITIES: There is 1-2+ peripheral edema. No clubbing, no cyanosis. Peripheral pulses are intact. - Labs CBC & Chem 7: 04/10/24 06:08 04/10/24 06:08 Labs: Abnormal Lab Results - Last 24 Hours (Table) 04/09/24 04/09/24 04/10/24 Range/Units 16:31 20:33 06:08 RBC 2.88 L (4.30-5.90) m/uL Hgb 8.0 L (13.0-17.5) gm/dL Hct 28.5 L (39.0-53.0) % MCHC 28.1 L (31.0-37.0) g/dL RDW 23.3 H (11.5-15.5) % Sodium (137-145) mmol/L Chloride (98-107) mmol/L Carbon Dioxide (22-30) mmol/L Creatinine (0.66-1.25) mg/dL Glucose (74-99) mg/dL POC Glucose (mg/dL) 195 H 213 H (70-110) mg/dL Total Protein (6.3-8.2) g/dL Albumin (3.5-5.0) g/dL 04/10/24 04/10/24 Range/Units 06:08 06:18 RBC (4.30-5.90) m/uL Hgb (13.0-17.5) gm/dL Hct (39.0-53.0) % MCHC (31.0-37.0) g/dL RDW (11.5-15.5) % Sodium 134 L (137-145) mmol/L Chloride 96 L (98-107) mmol/L Carbon Dioxide 35 H (22-30) mmol/L Creatinine 0.54 L (0.66-1.25) mg/dL Glucose 116 H (74-99) mg/dL POC Glucose (mg/dL) 129 H (70-110) mg/dL Total Protein 5.1 L (6.3-8.2) g/dL Albumin 2.6 L (3.5-5.0) g/dL Microbiology - Last 24 Hours (Table) 04/05/24 00:46 Blood Culture - Final Blood 04/05/24 00:18 Legionella Culture - Preliminary Sputum Assessment and Plan Assessment: Acute on chronic shortness of breath, chest x-ray showing worsening multifocal airspace disease particularly in the right middle/upper lung zones, as well as, left perihilar region. This likely represents disease progression, superimposed infectious process is not excluded. The patient is currently on 4 L of oxygen by nasal cannula. Plan is for bronchoscopy on 04/11/2024 Recent bronchoscopy, January 23, negative for cytology and microbiology positive for MSSA Metastatic squamous cell carcinoma of the lung, diagnosed initially 2020. Patient previously treated with chemo/radiation. Patient is restarted on systemic therapy and the patient is currently on IV Gemzar. Follow-up CAT scan of the chest done on 04/05/2024 is consistent with disease progression regarding his squamous cell carcinoma as noted. Superimposed pneumonia is felt to be less likely. Moderate chronic obstructive pulmonary disease, with an FEV1 51% of predicted Paroxysmal atrial fibrillation, transient bouts of RVR on monitor Bilateral lower extremity edema Chronic anemia, hemoglobin stable History of hypertension. History of hyperlipidemia. History of CAD with previous PCI/stent. History of ischemic cardiomyopathy, most recent available echocardiogram from August, showing improvement in left ventricular ejection fraction of 55 to 60% Chronic and ongoing tobacco dependence. Plan: The patient was seen and evaluated Labs and medications reviewed Patient has been slow to progress Plan for bronchoscopy with BAL in a.m. Continue bronchodilators, steroids Continue IV diuretics Continue antibiotics Anticoagulated with Eliquis Overall prognosis remains poor We will continue to follow I have personally seen and examined the patient, performed the documentation and the assessment and plan as written. Number of minutes spent on the visit: 10 Dictation was produced using [employer] dictation software. Please excuse any grammatical, word or spelling errors.
[2024-04-10 16:50] LABS: Glucose,Whole Blood 132 mg/dL (70-110)
[2024-04-10 20:11] LABS: Glucose,Whole Blood 202 mg/dL (70-110)
[2024-04-11 06:01] LABS: Glucose,Whole Blood 143 mg/dL (70-110)
--- NOTE | 2024-04-11 06:58 | XR ---
EXAMINATION TYPE: XR chest 1V portable DATE OF EXAM: 04/11/2024 6:36 AM COMPARISON: 04/06/2024 CLINICAL INDICATION: Male, 63 years old with history of Pneumonia, TECHNIQUE: XR chest 1V portable view(s) obtained. FINDINGS: The heart size is normal. The pulmonary vasculature is mildly prominent. Right upper lobe consolidation is persistent. IMPRESSION: 1. Right upper lobe consolidation persistent. Mild increased lung markings are diffusely present in t he perihilar regions. Continued follow-up is recommended [facility], , 04/11/2024 6:56 AM
[2024-04-11 07:58] LABS: Anisocytosis Moderate; HCT 26.7 % (39.0-53.0); HGB 7.8 gm/dL (13.0-17.5); Hypochromasia Marked; MCH 29.1 pg (25.0-35.0); MCHC 29.3 g/dL (31.0-37.0); MCV 99.4 fL (80.0-100.0); Macrocytosis Marked; Mean Platelet Volume 8.4; Platelet Count 305 k/uL (150-450); Poikilocytosis Slight; RBC 2.69 m/uL (4.30-5.90); RDW 23.2 % (11.5-15.5); WBC 10.2 k/uL (3.8-10.6)
[2024-04-11 08:05] LABS: ALT 16 U/L (4-49); AST 16 U/L (17-59); African American GFR (CKD) >90 (>60 ml/min/1.73 sqM); Albumin 2.5 g/dL (3.5-5.0); Alkaline Phosphatase 83 U/L (38-126); Anion Gap 3 mmol/L; Blood Urea Nitrogen 18 mg/dL (9-20); Calcium 8.4 mg/dL (8.4-10.2); Carbon Dioxide 36 mmol/L (22-30); Chloride 95 mmol/L (98-107); Glucose 106 mg/dL (74-99); Magnesium 2.2 mg/dL (1.6-2.3); Non-African American GFR(CKD) >90 (>60 ml/min/1.73 sqM); Potassium 3.9 mmol/L (3.5-5.1); Sodium 134 mmol/L (137-145); Total Bilirubin 0.5 mg/dL (0.2-1.3); Total Protein 5.1 g/dL (6.3-8.2)
--- NOTE | 2024-04-11 10:45 | P.PN ---
Subjective Progress Note Date: 04/11/24 Hospital course: Patient is a pleasant 63-year-old male with a past medical history of squamous cell carcinoma of lung currently undergoing chemotherapy, COPD not home oxygen dependent, CAD status post stenting, ischemic cardiomyopathy, paroxysmal atrial fibrillation on anticoagulation with Eliquis, chronic diastolic heart failure, hypertension, hyperlipidemia, and nicotine dependence.. He reports following with law clerk/oncologist Dr. Hoyos and states last chemotherapy treatment was 1 week ago tomorrow. He presented to the emergency department on 04/04/2024 secondary to reports of shortness of breath accompanied by worsening cough with production of yellowish-brown sputum. Upon arrival to our facility, patient underwent evaluation in the emergency department. Vital signs upon arrival showing blood pressure 119/82, heart rate 111, respiratory rate 22, temp 98.2 F, and SpO2 of 99% on room air. EKG completed showing sinus tachycardia at 107 bpm with repeat EKG showing atrial fibrillation with RVR at 133 bpm T wave inversion in lateral leads I, aVL, V5 and V6.. Chest x-ray showing moderate amount of airspace opacities in bilateral lungs concentrated in the right middle/upper lung zones and left perihilar regions suggestive of pneumonia. Labs completed and reviewed. CBC showing normocytic anemia with hemoglobin of 9.0 chronic and at baseline. Coagulation profile normal findings. BMP showing hypochloremic hyponatremia with sodium of 135 and chloride of 96. Blood glucose 115. Lactic acid 2.6. Magnesium 2.0. Liver profile unremarkable. Troponin was negative at less than 0.012 and proBNP was 2360. Influenza A, influenza B, RSV, and COVID PCR negative. CT chest with IV contrast completed showing increasing soft tissue density throughout the mediastinum encasing vessels and bronchi, a 1.4 cm paratracheal mass with subtle hypodense center may be a necrotic lymph node versus soft tissue mass, increasing lung findings suspicious for metastatic disease and increasing pericardial effusion. Patient admitted under our services with consultation to pulmonology and oncology. Physical exam: Patient seen and fully evaluated at bedside this morning. He reports doing a bit better today and is currently awaiting to go down for bronchoscopy with BAL later this afternoon. Patient reports he was told he was going down at 12:00 noon. He denies having any additional questions, needs, or complaints at this time. Vital signs reviewed and stable. General: Nontoxic, no acute distress, chronically ill-appearing. Frail and emaciated Derm: Skin warm and dry, normal coloration for ethnicity. Head: Atraumatic, normocephalic and symmetric. Eyes: EOM's intact, no lid lag, and anicteric sclera Mouth: no lip lesions, mucus membranes moist Cardiovascular: regular rate and rhythm with normal S1S2, no murmur, positive posterior tibial pulses bilaterally, and cap refill < 2 seconds. Lungs: Respirations even, regular, and unlabored on supplemental oxygen. Lungs diffuse coarse rhonchi throughout with expiratory wheezes. Abdominal: soft, nontender to palpation, no guarding, no appreciable organomegaly Ext: ROM intact. No gross muscle atrophy, 1+ pitting BLE edema, no contractures. Neuro: Speech clear, face symmetrical and CN II-XII grossly intact with no noted focal neuro deficits Psych: Alert and oriented to person, place, time, and situation. Appropriate and pleasant affect. Assessment and Plan of Care:.. Acute hypoxic respiratory failure COPD with acute exacerbation Metastatic squamous cell carcinoma of lung Concerns for possible pneumonia, recent bronchoscopy completed positive for MSSA -Pulmonology following, planning to take patient for bronchoscopy with BAL later today. -Oxygenation to be administered and titrated as needed to maintain SPO2 equal to or greater than 92%. -Telemetry monitoring. -Monitor pulse-oximetry -Duonebs scheduled 4 times daily and as needed for SOB and/or wheezing. -Order placed for flutter valve with instructions -Incentive Spirometry -Steroids: Solu-Medrol 60 mg IVP every 12 hours -Urine Legionella negative. Sputum culture showing no growth. Blood culture negative showing no growth after 5 days. -Continue Clindamycin 450 mg every 6 hours per recommendations of pulmonolgy due to inability to completely rule out underlying infectious process. Acute on chronic diastolic heart failure with mild exacerbation CAD status post stenting Paroxysmal atrial fibrillation Hypertension Hyperlipidemia -Continue Lasix 40 mg IVP daily. -Monitor vital signs and continue daily medication regimen with amiodarone 200 mg daily, Eliquis 5 mg twice daily, atorvastatin 80 mg nightly, and metoprolol 12.5 mg twice daily, Severe protein calorie malnutrition -Protein 5.1 and albumin 2.6. Severe protein calorie malnutrition likely secondary to advanced squamous cell carcinoma of the lung with metastasis and decreased oral intake. -Patient started on protein supplements 3 times daily between meals and consult placed to dietitian. Nicotine dependence -Patient reported that he has cut back significantly on smoking and declined wanting nicotine patch at this time. Data and imaging reviewed: -Morning Labs reviewed. CBC showing stable normocytic anemia with hemoglobin of 7.8. BMP showing sodium 134 and metabolic of 95, bicarb of 36, and anion gap of 3. Blood glucose 106. Magnesium 2.2. Liver profile showing a low AST of 16 otherwise normal findings. Albumin low at 2.5. -Vital signs reviewed. Blood pressure 109/66, heart rate 91, respiratory rate 18, temp 98.4 F, and SpO2 of 94% on 4 L. CODE STATUS: Full code DVT prophylaxis: Eliquis Anticipated discharge date: Pending clinical course Anticipated discharge place: Pending clinical course Patient was seen independently by Nurse Pracitioner. This document was prepared using [employer] dictation software. Please allow for errors in senior electrical controls engineer, while rare they do occur. Tony Vazquez NP rendered care for this patient independently, reviewed the findings and plan as documented in the note above and agree with plan. I did not physically speak with or examine the patient on this date. Objective - Vital Signs Vital signs: Vital Signs Temp 98.4 F 04/11/24 04:00 Pulse 91 04/11/24 04:00 Resp 18 04/11/24 04:00 BP 109/66 04/11/24 04:00 Pulse Ox 94 L 04/11/24 04:00 FiO2 21 04/08/24 07:59 Intake & Output 04/10/24 04/11/24 04/11/24 18:59 06:59 18:59 Intake Total 240 Output Total 1200 550 Balance -960 -550 Weight 60.1 kg 59.1 kg Intake: Oral 240 Output: Urine 1200 550 Other: Voiding Method Urinal Urinal # Bowel Movements 1 - Labs CBC & Chem 7: 04/11/24 06:38 04/11/24 06:38 Labs: Abnormal Lab Results - Last 24 Hours (Table) 04/10/24 04/10/24 04/11/24 Range/Units 16:49 20:09 05:59 POC Glucose (mg/dL) 132 H 202 H 143 H (70-110) mg/dL Microbiology - Last 24 Hours (Table) 04/05/24 00:46 Blood Culture - Final Blood
[2024-04-11 11:31] LABS: Glucose,Whole Blood 135 mg/dL (70-110)
[2024-04-11] MEDS ORDERED: PROPOFOL 10 MG/ML 20 ML VIAL IV ONE (13:14)
[2024-04-11] MEDS ORDERED: LIDOCAINE 1% INJ 10MG/ML (20 ML MDV) ONE (13:14)
[2024-04-11] MEDS: LACTATED RINGERS 1,000 ML IV ONE ×2 (13:16→13:22)
[2024-04-11] MEDS: LIDOCAINE 2% INJ 20 MG/ML INTRATRACH ONE ×2 (13:18→13:23)
--- NOTE | 2024-04-11 16:25 | P.PN ---
Subjective Progress Note Date: 04/11/24 Patient is a 63-year-old male with past medical history significant for COPD, lung cancer, hypertension, hyperlipidemia, CAD with previous PCI/stents, ischemic cardiomyopathy, and atrial fibrillation anticoagulated on Eliquis. Patient is known to have metastatic non-small cell lung cancer. His oncologist is Dr. Hoyos. Treated in the past with chemo/radiation, and patient is currently on systemic therapy, 2 weeks on 1 week off. Of note, patient has had multiple recent hospitalizations, as well as, recent bronchoscopy with airway examination and BAL on January 23. Washing was positive for MSSA. More recently on 03/13/2024, patient was treated for right upper lobe pneumonia, possibly postobstructive, on an outpatient basis with a course of Levaquin by Dr. Kumar. Patient presents emergency department late last night with a chief complaint of shortness of breath. Associated productive cough with yellow sputum production. Workup in the emergency department including a chest x-ray showing worsening multifocal airspace disease particularly in the right middle/upper lung zones as well as left perihilar region. This likely represents disease progression, with possible superimposed infectious process. CBC: WBC count of 6.8, hemoglobin 9, platelets 157. CMP: Sodium 135, potassium 3.7, chloride 96, serum bicarb 28, BUN 17, creatinine 0.65, glucose 115. Lactic was 2.6 and is down to 1. Troponin less than 0.012. NT proBNP 2360. EKG: Sinus tachycardia, rate 107 bpm, no acute ST segment elevations. Viral screen negative for influenza, RSV, COVID. Patient was placed on empiric antibiotics in the ED in the form of azithromycin and cefepime. Patient currently being evaluated in the emergency department. He is on room air. Nondistressed. He has been coughing up clear to yellow phlegm into a bottle. Denies sick contacts. Denies any fever/chills, hemoptysis, chest pain. Does report worsening lower extremity swelling. Appears the patient flipping in and out of atrial fibrillation with rapid ventricular response. He has known history of atrial fibrillation, and his ca rdiac medications are yet to be restarted. Denies chest pain, heart palpitations, lightheadedness/syncopal events, orthopnea, PND. Most recent available echocardiogram from 09/06/2023 demonstrating a preserved ejection fraction. Current most recent vital signs: Temperature 98.2 F, heart rate 90 bpm, blood pressure 103/78 mmHg, nontachypneic SpO2 reading 99% on room air. On 04/06/2024, the patient is being seen for a follow-up. Slightly improved compared to yesterday. Continues to have a cough and congestion in his chest. Sputum sample was given and the cultures are still pending for now. Remains to be bronchospastic and wheezy. No fever. No hemodynamic instability. No hemoptysis. The patient had a CAT scan of the chest yesterday and this was reviewed and it shows progression of his disease with increased soft tissue density throughout the mediastinum consistent with progression of his squamous cell carcinoma in addition to a cavitating suprahilar mass. He was receiving IV Gemzar on outpatient basis as palliative systemic chemotherapy. No other new complaints otherwise for now. Remains on DuoNeb. Remains on IV cefepime and Zithromax. He is also on IV Solu-Medrol 60 mg every 6 hours. No other significant events overnight. On 04/07/2024, the patient is being seen for a follow-up. Continues to have some cough and congestion although less compared to yesterday. The sputum sample is still pending for now. Noted the patient's procalcitonin level was not elevated and a pneumonia is felt to be less likely. His presentation is not related to COPD exacerbation and underlying lung cancer. The patient was receiving IV Gemzar regarding his lung cancer on outpatient basis. Feels well. No new complaints. Appetite is diminished. Currently on 2 L of oxygen by nasal cannula. White cell count is at 5.4 with a hemoglobin of 7.7, BUN 16 with a creatinine 0.59 and sodium was 132. LFTs are normal. No other significant events overnight. Blood cultures have been negative. On 04/08/2024, the patient is being seen for a follow-up. The patient is currently on oxygen and at 2 L/min nasal cannula. Continues to have cough and congestion and is still producing thick mucus. The patient is currently on clindamycin. The patient is on DuoNeb nebulized treatments [id number]. The patient on Symbicort. The patient remains on IV Solu-Medrol 60 mg IV push e very 6 hours. Sputum cultures have been negative. As mentioned, he is known to have underlying lung cancer, which is metastatic squamous cell carcinoma the patient has been receiving palliative chemotherapy with Gemzar. Blood work from today shows a white cell count of 7.8, hemoglobin 7.4 and platelet count of 257. BUN is 15 with a creatinine of 0.6. Sodium levels at 134. The patient is seen today April 09, 2024 in follow-up on the selective care unit. He is currently sitting up at the bedside. Awake and alert in no acute distress. Still quite dyspneic with minimal conversation. Dyspneic with minimal exertion. He is maintaining O2 saturations in the 90s on 3 L/min per nasal cannula. He is continued on DuoNeb and elations, Symbicort, Solu-Medrol. Antibiotics in the form of clindamycin. White count 8.4. Hemoglobin 7.5. Platelets 292. Sodium 134. Potassium 3.3. Bicarb 31. BUN 16. Creatinine 0.63. Glucose 135. He is anticoagulated with Eliquis. Remains on IV diur etics. Currently in a -1.8 L balance. The patient is seen today April 10, 2024 in follow-up on the selective care unit. He is currently resting in bed. Awake and alert in no acute distress. Continues with significant cough and congestion. Unable to clear his secretions. Is in the 90s on 4 L/min per nasal cannula. He is been afebrile. Hemodynamically stable. Sputum culture revealed no growth. Blood culture revealed no growth.. Hemoglobin 8.0. Platelets 319. Sodium 134. Potassium 3.9. Bicarb 35. BUN 12. Creatinine 0.54. Glucose 116. He remains on DuoNeb inhalations, Symbicort, Solu-Medrol. Remains on IV diuretics. Remains on antibiotics in the form of clindamycin. Anticoagulated with Eliquis. The patient is seen today April 11, 2024 in follow-up on the selective care unit. He is awake and alert in no acute distress. Continues with a loose congested cough. Plan is for bronchoscopy with BAL today with Dr. Kumar. He is maintaining O2 saturations in the 90s on 4 L/min per nasal cannula. He has been afebrile. Hemodynamically stable. White count 10.2. Hemoglobin 7.8. Platelets 305. Sodium 134. Potassium 3.9. Bicarb 36. BUN 18. Creatinine 0.54. Glucose 106. He is continued on DuoNeb and elations, Symbicort, Solu- Medrol. Remains on IV diuretics. Remains on clindamycin. Eliquis will be resumed postprocedure. Objective - Vital Signs Vital signs: Vital Signs Temp 97.2 F L 04/11/24 12:00 Pulse 84 04/11/24 16:02 Resp 18 04/11/24 14:00 BP 113/62 04/11/24 12:00 Pulse Ox 96 04/11/24 12:00 FiO2 21 04/08/24 07:59 Intake & Output 04/10/24 04/11/24 04/11/24 18:59 06:59 18:59 Intake Total 240 200 Output Total 1200 550 900 Balance -960 -550 -700 Weight 60.1 kg 59.1 kg 59.1 kg Intake: IV 200 Oral 240 Output: Urine 1200 550 900 Other: Voiding Method Urinal Urinal Urinal # Bowel Movements 1 - Exam GENERAL EXAM: Alert, thin 63-year-old male patient, on 4 L nasal cannula, fairly comfortable in no apparent distress. HEAD: Normocephalic. EYES: Normal reaction of pupils, equal size. NOSE: Clear with pink turbinates. THROAT: No erythema or exudates. NECK: No masses, no JVD. CHEST: No chest wall deformity. LUNGS: Equal air entry with bilateral scattered rhonchi more so on the right lung. CVS: S1 and S2 normal with no audible murmur, regular rhythm. ABDOMEN: No hepatosplenomegaly, normal bowel sounds, no guarding or rigidity. SPINE: No scoliosis or deformity SKIN: No rashes CENTRAL NERVOUS SYSTEM: No focal deficits, tone is normal in all 4 extremities. EXTREMITIES: There is 1+ peripheral edema. No clubbing, no cyanosis. Peripheral pulses are intact. - Labs CBC & Chem 7: 04/11/24 06:38 04/11/24 06:38 Labs: Abnormal Lab Results - Last 24 Hours (Table) 04/10/24 04/10/24 04/11/24 Range/Units 16:49 20:09 05:59 RBC (4.30-5.90) m/uL Hgb (13.0-17.5) gm/dL Hct (39.0-53.0) % MCHC (31.0-37.0) g/dL RDW (11.5-15.5) % Macrocytosis Sodium (137-145) mmol/L Chloride (98-107) mmol/L Carbon Dioxide (22-30) mmol/L Creatinine (0.66-1.25) mg/dL Glucose (74-99) mg/dL POC Glucose (mg/dL) 132 H 202 H 143 H (70-110) mg/dL AST (17-59) U/L Total Protein (6.3-8.2) g/dL Albumin (3.5-5.0) g/dL 04/11/24 04/11/24 04/11/24 Range/Units 06:38 06:38 11:29 RBC 2.69 L (4.30-5.90) m/uL Hgb 7.8 L (13.0-17.5) gm/dL Hct 26.7 L (39.0-53.0) % MCHC 29.3 L (31.0-37.0) g/dL RDW 23.2 H (11.5-15.5) % Macrocytosis Marked A Sodium 134 L (137-145) mmol/L Chloride 95 L (98-107) mmol/L Carbon Dioxide 36 H (22-30) mmol/L Creatinine 0.54 L (0.66-1.25) mg/dL Glucose 106 H (74-99) mg/dL POC Glucose (mg/dL) 135 H (70-110) mg/dL AST 16 L (17-59) U/L Total Protein 5.1 L (6.3-8.2) g/dL Albumin 2.5 L (3.5-5.0) g/dL Microbiology - Last 24 Hours (Table) 04/05/24 00:46 Blood Culture - Final Blood Assessment and Plan Assessment: Acute on chronic shortness of breath, chest x-ray showing worsening multifocal airspace disease particularly in the right middle/upper lung zones, as well as, left perihilar region. This likely represents disease progression, superimposed infectious process is not excluded. The patient is currently on 4 L of oxygen by nasal cannula. Plan is for bronchoscopy today 04/11/2024 Recent bronchoscopy, January 23, negative for cytology and microbiology positive for MSSA Metastatic squamous cell carcinoma of the lung, diagnosed initially 2020. Patient previously treated with chemo/radiation. Patient is restarted on systemic therapy and the patient is currently on IV Gemzar. Follow-up CAT scan of the chest done on 04/05/2024 is consistent with disease progression regarding his squamous cell carcinoma as noted. Superimposed pneumonia is felt to be less likely. Moderate chronic obstructive pulmonary disease, with an FEV1 51% of predicted Paroxysmal atrial fibrillation, transient bouts of RVR on monitor Bilateral lower extremity edema Chronic anemia, hemoglobin stable History of hypertension. History of hyperlipidemia. History of CAD with previous PCI/stent. History of ischemic cardiomyopathy, most recent available echocardiogram from August, showing improvement in left ventricular ejection fraction of 55 to 60% Chronic and ongoing tobacco dependence. Plan: The patient was seen and evaluated Labs and medications reviewed Plan for bronchoscopy with BAL today Eliquis on hold Continue bronchodilators, steroids Continue IV diuretics Continue antibiotics Overall prognosis remains poor We will continue to follow I have personally seen and examined the patient, performed the documentation and the assessment and plan as written. Number of minutes spent on the visit: 10 Dictation was produced using [employer] dictation software. Please excuse any grammatical, word or spelling errors.
[2024-04-11 17:01] LABS: Glucose,Whole Blood 370 mg/dL (70-110)
[2024-04-11] MEDS: LACTATED RINGERS 1,000 ML IV SCH (17:59)
--- NOTE | 2024-04-11 19:23 | OP ---
OPERATIVE REPORT DATE OF SERVICE : PROCEDURES PERFORMED: Bronchoscopy and bronchoalveolar lavage of the right upper lobe. PREOPERATIVE DIAGNOSES: Retained secretions, cough, unable to clear secretions. The patient has history of lung cancer and chronic obstructive pulmonary disease. POSTOPERATIVE DIAGNOSES: Retained secretions, mostly in the right upper lobe and left lower lobe and left mainstem bronchus. Lung cancer with postradiation changes involving the right upper lobe and left mainstem bronchus. PROCEDURE: The patient was prepared according to the bronchoscopy protocol. O2 was applied via Ventimask. We monitored his O2 saturation during his procedure continuously, blood pressure was intermittently monitored, and cardiac rhythm was continuously monitored. Anesthesia used is IV conscious sedation. After adequate IV conscious sedation, the bronchoscope was advanced through a bite block down to the area of the vocal cords. The vocal cords were visualized, and they were noted to be relatively normal, no abnormality is noted on the vocal cords. Then, the glottic opening was tropicalized with lidocaine, and the bronchoscope was advanced further down the glottic opening to the trachea. Trachea was noted to be a bit tortuous and tracheal teresa was noted to be a bit thickened. Then, more lidocaine was applied in the distal trachea, right mainstem bronchus and the left mainstem bronchus. On the left side, there was evidence of significant friability of the mucosa of the left mainstem bronchus, could not get or visualize the left upper lobe. However, there were no endobronchial tumors noted. Lavage of that area and cleaning of the secretions from the left mainstem bronchus was done. I then moved up, after visualization of the lingula and the left lower lobe, which were noted to be normal, moved up to the right upper lobe area and there was clearly evidence of significant thickening of the mucosa; there was a significant necrotic tissue noted in the whole right upper lobe to the point that could not distinguish the anatomy of the right upper lobe. I was able to lavage the right upper lobes orally; irrigation was done until all the purulent secretions noted in the right upper lobe have been removed. The right middle lobe was also lavaged, examination of the right lower lobe was basically unremarkable. Clearly, the patient has chronic changes in the right upper lobe related to his cancer and related to his radiation treatment, and similar changes were noted in the left mainstem bronchus and in the carinal area. Procedure was well tolerated, no complications, fluid was obtained and was sent for different diagnostic studies, mostly cultures and for cytology. MMODL / IJN: [id number] /
[2024-04-11 20:14] LABS: Glucose,Whole Blood 203 mg/dL (70-110)
[2024-04-11] MEDS: APIXABAN 5 MG TAB PO SCH (21:19)
[2024-04-12 05:47] LABS: Glucose,Whole Blood 198 mg/dL (70-110)
[2024-04-12 09:34] LABS: Anisocytosis Moderate; Basophils % (A) 0 %; Eosinophils % (A) 0 %; HCT 30.8 % (39.0-53.0); HGB 8.6 gm/dL (13.0-17.5); Hypochromasia Marked; Lymphocytes # (A) 0.2 k/uL (1.0-4.8); Lymphocytes % (A) 2 %; MCH 27.7 pg (25.0-35.0); MCHC 27.9 g/dL (31.0-37.0); MCV 99.3 fL (80.0-100.0); Macrocytosis Moderate; Mean Platelet Volume 8.2; Monocytes # (A) 0.2 k/uL (0-1.0); Monocytes % (A) 1 %; Neutrophils # (A) 10.5 k/uL (1.3-7.7); Neutrophils % (A) 97 %; Platelet Count 385 k/uL (150-450); Poikilocytosis Slight; RDW 22.6 % (11.5-15.5); WBC 10.9 k/uL (3.8-10.6)
[2024-04-12 09:41] LABS: African American GFR (CKD) >90 (>60 ml/min/1.73 sqM); Anion Gap 8 mmol/L; Blood Urea Nitrogen 22 mg/dL (9-20); Calcium 8.4 mg/dL (8.4-10.2); Carbon Dioxide 32 mmol/L (22-30); Chloride 96 mmol/L (98-107); Glucose 184 mg/dL (74-99); Non-African American GFR(CKD) >90 (>60 ml/min/1.73 sqM); Sodium 136 mmol/L (137-145)
[2024-04-12 11:16] LABS: Glucose,Whole Blood 279 mg/dL (70-110)
--- NOTE | 2024-04-12 14:15 | P.PN ---
Subjective Progress Note Date: 04/12/24 Principal diagnosis: Acute on chronic hypoxic respiratory failure, multifactorial mostly related to his COPD exacerbation, pneumonia, and bronchogenic carcinoma. Patient is a 63-year-old male with past medical history significant for COPD, lung cancer, hypertension, hyperlipidemia, CAD with previous PCI/stents, ischemic cardiomyopathy, and atrial fibrillation anticoagulated on Eliquis. Patient is known to have metastatic non-small cell lung cancer. His oncologist is Dr. Hoyos. Treated in the past with chemo/radiation, and patient is currently on systemic therapy, 2 weeks on 1 week off. Of note, patient has had multiple recent hospitalizations, as well as, recent bronchoscopy with airway examination and BAL on January 23. [place] was positive for MSSA. More recently on 03/13/2024, patient was treated for right upper lobe pneumonia, possibly postobstructive, on an outpatient basis with a course of Levaquin by Dr. Kumar. Patient presents emergency department late last night with a chief complaint of shortness of breath. Associated productive cough with yellow sputum production. Workup in the emergency department including a chest x-ray showing worsening multifocal airspace disease particularly in the right middle/upper lung zones as well as left perihilar region. This likely represents disease progression, with possible superimposed infectious process. CBC: WBC count of 6.8, hemoglobin 9, platelets 157. CMP: Sodium 135, potassium 3.7, chloride 96, serum bicarb 28, BUN 17, creatinine 0.65, glucose 115. Lactic was 2.6 and is down to 1. Troponi n less than 0.012. NT proBNP 2360. EKG: Sinus tachycardia, rate 107 bpm, no acute ST segment elevations. Viral screen negative for influenza, RSV, COVID. Patient was placed on empiric antibiotics in the ED in the form of azithromycin and cefepime. Patient currently being evaluated in the emergency department. He is on room air. Nondistressed. He has been coughing up clear to yellow phlegm into a bottle. Denies sick contacts. Denies any fever/chills, hemoptysis, chest pain. Does report worsening lower extremity swelling. Appears the patient flipping in and out of atrial fibrillation with rapid ventricular response. He has known history of atrial fibrillation, and his cardiac medications are yet to be restarted. Denies chest pain, heart palpitations, lightheadedness/syncopal events, orthopnea, PND. Most recent available echocardiogram from 09/06/2023 demonstrating a preserved ejection fraction. Current most recent vital signs: Temperature 98.2 F, heart rate 90 bpm, blood pressure 103/78 mmHg, nontachypneic SpO2 reading 99% on room air. On 04/06/2024, the patient is being seen for a follow-up. Slightly improved compared to yesterday. Continues to have a cough and congestion in his chest. Sputum sample was given and the cultures are still pending for now. Remains to be bronchospastic and wheezy. No fever. No hemodynamic instability. No hemoptysis. The patient had a CAT scan of the chest yesterday and this was reviewed and it shows progression of his disease with increased soft tissue density throughout the mediastinum consistent with progression of his squamous cell carcinoma in addition to a cavitating suprahilar mass. He was receiving IV Gemzar on outpatient basis as palliative systemic chemotherapy. No other new complaints otherwise for now. Remains on DuoNeb. Remains on IV cefepime and Zithromax. He is also on IV Solu-Medrol 60 mg every 6 hours. No other significant events overnight. On 04/07/2024, the patient is being seen for a follow-up. Continues to have some cough and congestion although less compared to yesterday. The sputum sample is still pending for now. Noted the patient's procalcitonin level was not elevated and a pneumonia is felt to be less likely. His presentation is not related to COPD exacerbation and underlying lung cancer. The patient was receiving IV Gemzar regarding his lung cancer on outpatient basis. Feels well. No new complaints. Appetite is diminished. Currently on 2 L of oxygen by nasal cannu la. White cell count is at 5.4 with a hemoglobin of 7.7, BUN 16 with a creatinine 0.59 and sodium was 132. LFTs are normal. No other significant events overnight. Blood cultures have been negative. On 04/08/2024, the patient is being seen for a follow-up. The patient is currently on oxygen and at 2 L/min nasal cannula. Continues to have cough and congestion and is still producing thick mucus. The patient is currently on clindamycin. The patient is on DuoNeb nebulized treatments [id number]. The patient on Symbicort. The patient remains on IV Solu-Medrol 60 mg IV push every 6 hours. Sputum cultures have been negative. As mentioned, he is known to have underlying lung cancer, which is metastatic squamous cell carcinoma the patient has been receiving palliative chemotherapy with Gemzar. Blood work from today shows a white cell count of 7.8, hemoglobin 7.4 and platelet count of 257. BUN is 15 with a creatinine of 0.6. Sodium levels at 134. The patient is seen today April 09, 2024 in follow-up on the selective care unit. He is currently sitting up at the bedside. Awake and alert in no acute distress. Still quite dyspneic with minimal conversation. Dyspneic with minimal exertion. He is maintaining O2 saturations in the 90s on 3 L/min per nasal cannula. He is continued on DuoNeb and elations, Symbicort, Solu-Medrol. Antibiotics in the form of clindamycin. White count 8.4. Hemoglobin 7.5. Platelets 292. Sodium 134. Potassium 3.3. Bicarb 31. BUN 16. Creatinine 0.63. Glucose 135. He is anticoagulated with Eliquis. Remains on IV diuretics. Currently in a -1.8 L balance. The patient is seen today April 10, 2024 in follow-up on the selective care unit. He is currently resting in bed. Awake and alert in no acute distress. Continues with significant cough and congestion. Unable to clear his secretions. Is in the 90s on 4 L/min per nasal cannula. He is been afebrile. Hemodynamically stable. Sputum culture revealed no growth. Blood culture revealed no growth.. Hemoglobin 8.0. Platelets 319. Sodium 134. Potassium 3.9. Bicarb 35. BUN 12. Creatinine 0.54. Glucose 116. He remains on DuoNeb inhalations, Symbicort, Solu-Medrol. Remains on IV diuretics. Remains on antibiotics in the form of clindamycin. Anticoagulated with Eliquis. The patient is seen today April 11, 2024 in follow-up on the selective care unit. He is awake and alert in no acute distress. Continues with a loose congested cough. Plan is for bronchoscopy with BAL today with Dr. Kumar. He is maintaining O2 saturations in the 90s on 4 L/min per nasal cannula. He has been afebrile. Hemodynamically stable. White count 10.2. Hemoglobin 7.8. Platelets 305. Sodium 134. Potassium 3.9. Bicarb 36. BUN 18. Creatinine 0.54. Glucose 106. He is continued on DuoNeb and elations, Symbicort, Solu- Medrol. Remains on IV diuretics. Remains on clindamycin. Eliquis will be resumed postprocedure. Seen today on 04/12/2024, patient is a little better today compared to yesterday, nonetheless continues to cough and wheeze, continues to have shortness of breath, patient underwent a bronchoscopy and BAL of the right upper lobe yesterday, cultures from the BAL are pending. Patient remains on 3 L nasal cannula, O2 sats is 92%, he is hemodynamically stable, remains on clindamycin, and his Eliquis was resumed. Patient remains on Symbicort and Solu-Medrol. Objective - Vital Signs Vital signs: Vital Signs Temp 97.8 F 04/12/24 09:01 Pulse 88 04/12/24 12:27 Resp 20 04/12/24 12:06 BP 118/68 04/12/24 12:06 Pulse Ox 92 L 04/12/24 12:06 FiO2 21 04/08/24 07:59 Intake & Output 04/11/24 04/12/24 04/12/24 18:59 06:59 18:59 Intake Total 200 240 520 Output Total 1200 900 Balance -1000 -660 520 Weight 59.1 kg 59.2 kg Intake: IV 200 10 Invasive Line 2 10 Oral 240 510 Output: Urine 1200 900 Other: Voiding Method Urinal Urinal Urinal - Exam GENERAL EXAM: Revealed 63-year-old white male in no distress HEAD: Normocephalic. EYES: Normal reaction of pupils, equal size. NOSE: Clear with pink turbinates. THROAT: No erythema or exudates. NECK: No masses, no JVD. CHEST: No chest wall deformity. LUNGS: Scattered rhonchi and wheezes noted bilaterally CVS: S1 and S2 normal with no audible murmur, regular rhythm. ABDOMEN: No hepatosplenomegaly, normal bowel sounds, no guarding or rigidity. SKIN: No rashes CENTRAL NERVOUS SYSTEM: Alert and oriented x 3 no gross focal deficit EXTREMITIES: Trace of edema no clubbing no cyanosis - Labs CBC & Chem 7: 04/12/24 08:38 04/12/24 08:38 Labs: Abnormal Lab Results - Last 24 Hours (Table) 04/11/24 04/11/24 04/12/24 Range/Units 17:00 20:11 05:45 WBC (3.8-10.6) k/uL RBC (4.30-5.90) m/uL Hgb (13.0-17.5) gm/dL Hct (39.0-53.0) % MCHC (31.0-37.0) g/dL RDW (11.5-15.5) % Neutrophils # (1.3-7.7) k/uL Lymphocytes # (1.0-4.8) k/uL Sodium (137-145) mmol/L Chloride (98-107) mmol/L Carbon Dioxide (22-30) mmol/L BUN (9-20) mg/dL Creatinine (0.66-1.25) mg/dL Glucose (74-99) mg/dL POC Glucose (mg/dL) 370 H 203 H 198 H (70-110) mg/dL 04/12/24 04/12/24 04/12/24 Range/Units 08:38 08:38 11:14 WBC 10.9 H (3.8-10.6) k/uL RBC 3.10 L (4.30-5.90) m/uL Hgb 8.6 L (13.0-17.5) gm/dL Hct 30.8 L (39.0-53.0) % MCHC 27.9 L (31.0-37.0) g/dL RDW 22.6 H (11.5-15.5) % Neutrophils # 10.5 H (1.3-7.7) k/uL Lymphocytes # 0.2 L (1.0-4.8) k/uL Sodium 136 L (137-145) mmol/L Chloride 96 L (98-107) mmol/L Carbon Dioxide 32 H (22-30) mmol/L BUN 22 H (9-20) mg/dL Creatinine 0.56 L (0.66-1.25) mg/dL Glucose 184 H (74-99) mg/dL POC Glucose (mg/dL) 279 H (70-110) mg/dL Assessment and Plan Assessment: Impression: Acute on chronic shortness of breath, chest x-ray showing worsening multifocal airspace disease particularly in the right middle/upper lung zones, as well as, left perihilar region. This likely represents disease progression, superimposed infectious process is not excluded. Status post bronchoscopy on 04/11/2024, cultures are pending. Metastatic squamous cell carcinoma of the lung, diagnosed initially 2020. Patient previously treated with chemo/radiation. Patient is restarted on syst emic therapy and the patient is currently on IV Gemzar. Follow-up CAT scan of the chest done on 04/05/2024 is consistent with disease progression regarding his squamous cell carcinoma as noted. Superimposed pneumonia is felt to be less likely. Moderate chronic obstructive pulmonary disease, with an FEV1 51% of predicted Paroxysmal atrial fibrillation, transient bouts of RVR on monitor Bilateral lower extremity edema Chronic anemia, hemoglobin stable History of hypertension. History of hyperlipidemia. History of CAD with previous PCI/stent. History of ischemic cardiomyopathy, most recent available echocardiogram from August, showing improvement in left ventricular ejection fraction of 55 to 60% Chronic and ongoing tobacco dependence. Recommendation: Continue bronchodilators Continue diuretics and antibiotics Based on the final culture from the BAL, will adjust antibiotics accordingly Considering his overall clinical picture patient has extremely poor prognosis Patient continues to have multiple comorbidities as noted above Will continue to Time with Patient: Less than 30
--- NOTE | 2024-04-12 15:16 | P.PN ---
Subjective Progress Note Date: 04/12/24 Hospital Course: Patient is a pleasant 63-year-old male with a past medical history of squamous cell carcinoma of lung currently undergoing chemotherapy, COPD not home oxygen dependent, CAD status post stenting, ischemic cardiomyopathy, paroxysmal atrial fibrillation on anticoagulation with Eliquis, chronic diastolic heart failure, hypertension, hyperlipidemia, and nicotine dependence.. He reports following with technology instructor/oncologist Dr. Hoyos and states last chemotherapy treatment was 1 week ago tomorrow. He presented to the emergency department on 04/04/2024 secondary to reports of shortness of breath accompanied by worsening cough with production of yellowish-brown sputum. Upon arrival to our facility, patient underwent evaluation in the emergency department. Vital signs upon arrival showing blood pressure 119/82, heart rate 111, respiratory rate 22, temp 98.2 F, and SpO2 of 99% on room air. EKG completed showing sinus tachycardia at 107 bpm with repeat EKG showing atrial fibrillation with RVR at 133 bpm T wave inversion in lateral leads I, aVL, V5 and V6.. Chest x-ray showing moderate amount of airspace opacities in bilateral lungs concentrated in the right middle/upper lung zones and left perihilar regions suggestive of pneumonia. Labs completed and reviewed. CBC showing normocytic anemia with hemoglobin of 9.0 chronic and at baseline. Coagulation profile normal findings. BMP showing hypochloremic hyponatremia with sodium of 135 and chloride of 96. Blood glucose 115. Lactic acid 2.6. Magnesium 2.0. Liver profile unremarkable. Troponin was negative at less than 0.012 and proBNP was 2360. Influenza A, influenza B, RSV, and COVID PCR negative. CT chest with IV contrast completed showing increasing soft tissue density throughout the mediastinum encasing vessels and bronchi, a 1.4 cm paratracheal mass with subtle hypodense center may be a necrotic lymph node versus soft tissue mass, increasing lung findings suspicious for metastatic disease and increasing pericardial effusion. Patient admitted under our services with consultation to pulmonology and oncology. he was started on clindamycin Status post BAL on 04/11, significant necrotic tissue noted in the whole right upper lobe, related to his cancer, radiation treatment, similar changes noted in the left mainstem bronchus, carinal area. Cultures and cytology pending Pertinent Imaging: [] Subjective: [] Pertinent positives and negatives as discussed above, a complete review of systems was performed and all other systems are negative. General: Nontoxic, no acute distress, chronically ill-appearing. Frail and emaciated Derm: Skin warm and dry, normal coloration for ethnicity. Head: Atraumatic, normocephalic and symmetric. Eyes: EOM's intact, no lid lag, and anicteric sclera Mouth: no lip lesions, mucus membranes moist Cardiovascular: regular rate and rhythm with normal S1S2, no murmur, positive posterior tibial pulses bilaterally, and cap refill < 2 seconds. Lungs: Respirations even, regular, and unlabored on supplemental oxygen. Lungs diffuse coarse rhonchi throughout with expiratory wheezes. Abdominal: soft, nontender to palpation, no guarding, no appreciable organomegaly Ext: ROM intact. No gross muscle atrophy, 1+ pitting BLE edema, no contractures. Neuro: Speech clear, face symmetrical and CN II-XII grossly intact with no noted focal neuro deficits Psych: Alert and oriented to person, place, time, and situation. Appropriate and pleasant affect. Lab work reviewed: Leukocyte 10.9, hemoglobin 8.6, platelet count normal, sodium 136, potassium 4.0, creatinine 0.56, glucose 184, bicarb 32 Assessment and Plan of Care: Acute hypoxic respiratory failure COPD with acute exacerbation Metastatic squamous cell carcinoma of lung Concerns for possible pneumonia, recent bronchoscopy completed positive for MSSA -Pulmonology following -Oxygenation to be administered and titrated as needed to maintain SPO2 equal to or greater than 92%. -Telemetry monitoring. -Monitor pulse-oximetry -Duonebs scheduled 4 times daily and as needed for SOB and/or wheezing. -Order placed for flutter valve with instructions -Incentive Spirometry -Steroids: Solu-Medrol 60 mg IVP every 12 hours -Urine Legionella negative. Sputum culture showing no growth. Blood culture n egative showing no growth after 5 days. -Continue Clindamycin 450 mg every 6 hours per recommendations of pulmonolgy due to inability to completely rule out underlying infectious process. SOT 04/07 -Oncology following, plan to continue with third cycle of Gemzar once acutely recovered -Follow-up on BAL cultures and cytology from 04/11 -Possible discharge in the next 24 to 48 hours Acute on chronic diastolic heart failure with mild exacerbation CAD status post stenting Paroxysmal atrial fibrillation Hypertension Hyperlipidemia -Continue Lasix 40 mg IVP daily. -Monitor vital signs and continue daily medication regimen with amiodarone 200 mg daily, Eliquis 5 mg twice daily, atorvastatin 80 mg nightly, and metoprolol 12.5 mg twice daily, Severe protein calorie malnutrition -Protein 5.1 and albumin 2.6. Severe protein calorie malnutrition likely secondary to advanced squamous cell carcinoma of the lung with metastasis and decreased oral intake. -Patient started on protein supplements 3 times daily between meals and consult placed to dietitian. Nicotine dependence -Patient reported that he has cut back significantly on smoking and declined wanting nicotine patch at this time. CODE STATUS: Full code DVT prophylaxis: Eliquis Anticipated discharge date: Pending clinical course Anticipated discharge place: Pending clinical course Objective - Vital Signs Vital signs: Vital Signs Temp 97.8 F 04/12/24 09:01 Pulse 89 04/12/24 14:00 Resp 20 04/12/24 14:00 BP 118/68 04/12/24 12:06 Pulse Ox 92 L 04/12/24 12:06 FiO2 21 04/08/24 07:59 Intake & Output 04/11/24 04/12/24 04/12/24 18:59 06:59 18:59 Intake Total 200 240 530 Output Total 1200 900 Balance -1000 -660 530 Weight 59.1 kg 59.2 kg Intake: IV 200 20 Invasive Line 2 20 Oral 240 510 Output: Urine 1200 900 Other: Voiding Method Urinal Urinal Urinal - Labs CBC & Chem 7: 04/12/24 08:38 04/12/24 08:38 Labs: Abnormal Lab Results - Last 24 Hours (Table) 04/11/24 04/11/24 04/12/24 Range/Units 17:00 20:11 05:45 WBC (3.8-10.6) k/uL RBC (4.30-5.90) m/uL Hgb (13.0-17.5) gm/dL Hct (39.0-53.0) % MCHC (31.0-37.0) g/dL RDW (11.5-15.5) % Neutrophils # (1.3-7.7) k/uL Lymphocytes # (1.0-4.8) k/uL Sodium (137-145) mmol/L Chloride (98-107) mmol/L Carbon Dioxide (22-30) mmol/L BUN (9-20) mg/dL Creatinine (0.66-1.25) mg/dL Glucose (74-99) mg/dL POC Glucose (mg/dL) 370 H 203 H 198 H (70-110) mg/dL 04/12/24 04/12/24 04/12/24 Range/Units 08:38 08:38 11:14 WBC 10.9 H (3.8-10.6) k/uL RBC 3.10 L (4.30-5.90) m/uL Hgb 8.6 L (13.0-17.5) gm/dL Hct 30.8 L (39.0-53.0) % MCHC 27.9 L (31.0-37.0) g/dL RDW 22.6 H (11.5-15.5) % Neutrophils # 10.5 H (1.3-7.7) k/uL Lymphocytes # 0.2 L (1.0-4.8) k/uL Sodium 136 L (137-145) mmol/L Chloride 96 L (98-107) mmol/L Carbon Dioxide 32 H (22-30) mmol/L BUN 22 H (9-20) mg/dL Creatinine 0.56 L (0.66-1.25) mg/dL Glucose 184 H (74-99) mg/dL POC Glucose (mg/dL) 279 H (70-110) mg/dL
[2024-04-12 16:53] LABS: Glucose,Whole Blood 130 mg/dL (70-110)
[2024-04-12 20:43] LABS: Glucose,Whole Blood 167 mg/dL (70-110)
[2024-04-13 06:22] LABS: Glucose,Whole Blood 222 mg/dL (70-110)
[2024-04-13 06:58] LABS: Anisocytosis Moderate; Basophils % (A) 0 %; Eosinophils % (A) 0 %; HCT 29.3 % (39.0-53.0); HGB 8.5 gm/dL (13.0-17.5); Hypochromasia Marked; Lymphocytes # (A) 0.1 k/uL (1.0-4.8); Lymphocytes % (A) 1 %; MCH 28.7 pg (25.0-35.0); MCHC 29.1 g/dL (31.0-37.0); MCV 98.6 fL (80.0-100.0); Macrocytosis Moderate; Mean Platelet Volume 8.2; Monocytes # (A) 0.4 k/uL (0-1.0); Monocytes % (A) 2 %; Neutrophils # (A) 16.3 k/uL (1.3-7.7); Neutrophils % (A) 96 %; Platelet Count 350 k/uL (150-450); Poikilocytosis Slight; RBC 2.97 m/uL (4.30-5.90); RDW 22.3 % (11.5-15.5)
[2024-04-13 07:00] LABS: African American GFR (CKD) >90 (>60 ml/min/1.73 sqM); Anion Gap 8 mmol/L; Blood Urea Nitrogen 23 mg/dL (9-20); Calcium 8.6 mg/dL (8.4-10.2); Carbon Dioxide 32 mmol/L (22-30); Chloride 93 mmol/L (98-107); Glucose 158 mg/dL (74-99); Non-African American GFR(CKD) >90 (>60 ml/min/1.73 sqM); Sodium 133 mmol/L (137-145)
[2024-04-13 11:27] LABS: Glucose,Whole Blood 181 mg/dL (70-110)
--- NOTE | 2024-04-13 14:56 | P.PN ---
Subjective Progress Note Date: 04/13/24 Patient is a 63-year-old male with past medical history significant for COPD, lung cancer, hypertension, hyperlipidemia, CAD with previous PCI/stents, ischemic cardiomyopathy, and atrial fibrillation anticoagulated on Eliquis. Patient is known to have metastatic non-small cell lung cancer. His oncologist is Dr. Hoyos. Treated in the past with chemo/radiation, and patient is currently on systemic therapy, 2 weeks on 1 week off. Of note, patient has had multiple recent hospitalizations, as well as, recent bronchoscopy with airway examination and BAL on January 23. Washing was positive for MSSA. More recently on 03/13/2024, patient was treated for right upper lobe pneumonia, possibly postobstructive, on an outpatient basis with a course of Levaquin by Dr. Kumar. Patient presents emergency department late last night with a chief complaint of shortness of breath. Associated productive cough with yellow sputum production. Workup in the emergency department including a chest x-ray showing worsening multifocal airspace disease particularly in the right middle/upper lung zones as well as left perihilar region. This likely represents disease progression, with possible superimposed infectious process. CBC: WBC count of 6.8, hemoglobin 9, platelets 157. CMP: Sodium 135, potassium 3.7, chloride 96, serum bicarb 28, BUN 17, creatinine 0.65, glucose 115. Lactic was 2.6 and is down to 1. Troponin less than 0.012. NT proBNP 2360. EKG: Sinus tachycardia, rate 107 bpm, no acute ST segment elevations. Viral screen negative for influenza, RSV, COVID. Patient was placed on empiric antibiotics in the ED in the form of azithromycin and cefepime. Patient currently being evaluated in the emergency department. He is on room air. Nondistressed. He has been coughing up clear to yellow phlegm into a bottle. Denies sick contacts. Denies any fever/chills, hemoptysis, chest pain. Does report worsening lower extremity swelling. Appears the patient flipping in and out of atrial fibrillation with rapid ventricular response. He has known history of atrial fibrillation, and his ca rdiac medications are yet to be restarted. Denies chest pain, heart palpitations, lightheadedness/syncopal events, orthopnea, PND. Most recent available echocardiogram from 09/06/2023 demonstrating a preserved ejection fraction. Current most recent vital signs: Temperature 98.2 F, heart rate 90 bpm, blood pressure 103/78 mmHg, nontachypneic SpO2 reading 99% on room air. On 04/06/2024, the patient is being seen for a follow-up. Slightly improved compared to yesterday. Continues to have a cough and congestion in his chest. Sputum sample was given and the cultures are still pending for now. Remains to be bronchospastic and wheezy. No fever. No hemodynamic instability. No hemoptysis. The patient had a CAT scan of the chest yesterday and this was reviewed and it shows progression of his disease with increased soft tissue density throughout the mediastinum consistent with progression of his squamous cell carcinoma in addition to a cavitating suprahilar mass. He was receiving IV Gemzar on outpatient basis as palliative systemic chemotherapy. No other new complaints otherwise for now. Remains on DuoNeb. Remains on IV cefepime and Zithromax. He is also on IV Solu-Medrol 60 mg every 6 hours. No other significant events overnight. On 04/07/2024, the patient is being seen for a follow-up. Continues to have some cough and congestion although less compared to yesterday. The sputum sample is still pending for now. Noted the patient's procalcitonin level was not elevated and a pneumonia is felt to be less likely. His presentation is not related to COPD exacerbation and underlying lung cancer. The patient was receiving IV Gemzar regarding his lung cancer on outpatient basis. Feels well. No new complaints. Appetite is diminished. Currently on 2 L of oxygen by nasal cannula. White cell count is at 5.4 with a hemoglobin of 7.7, BUN 16 with a creatinine 0.59 and sodium was 132. LFTs are normal. No other significant events overnight. Blood cultures have been negative. On 04/08/2024, the patient is being seen for a follow-up. The patient is currently on oxygen and at 2 L/min nasal cannula. Continues to have cough and congestion and is still producing thick mucus. The patient is currently on clindamycin. The patient is on DuoNeb nebulized treatments [id number]. The patient on Symbicort. The patient remains on IV Solu-Medrol 60 mg IV push e very 6 hours. Sputum cultures have been negative. As mentioned, he is known to have underlying lung cancer, which is metastatic squamous cell carcinoma the patient has been receiving palliative chemotherapy with Gemzar. Blood work from today shows a white cell count of 7.8, hemoglobin 7.4 and platelet count of 257. BUN is 15 with a creatinine of 0.6. Sodium levels at 134. The patient is seen today April 09, 2024 in follow-up on the selective care unit. He is currently sitting up at the bedside. Awake and alert in no acute distress. Still quite dyspneic with minimal conversation. Dyspneic with minimal exertion. He is maintaining O2 saturations in the 90s on 3 L/min per nasal cannula. He is continued on DuoNeb and elations, Symbicort, Solu-Medrol. Antibiotics in the form of clindamycin. White count 8.4. Hemoglobin 7.5. Platelets 292. Sodium 134. Potassium 3.3. Bicarb 31. BUN 16. Creatinine 0.63. Glucose 135. He is anticoagulated with Eliquis. Remains on IV diur etics. Currently in a -1.8 L balance. The patient is seen today April 10, 2024 in follow-up on the selective care unit. He is currently resting in bed. Awake and alert in no acute distress. Continues with significant cough and congestion. Unable to clear his secretions. Is in the 90s on 4 L/min per nasal cannula. He is been afebrile. Hemodynamically stable. Sputum culture revealed no growth. Blood culture revealed no growth.. Hemoglobin 8.0. Platelets 319. Sodium 134. Potassium 3.9. Bicarb 35. BUN 12. Creatinine 0.54. Glucose 116. He remains on DuoNeb inhalations, Symbicort, Solu-Medrol. Remains on IV diuretics. Remains on antibiotics in the form of clindamycin. Anticoagulated with Eliquis. The patient is seen today April 11, 2024 in follow-up on the selective care unit. He is awake and alert in no acute distress. Continues with a loose congested cough. Plan is for bronchoscopy with BAL today with Dr. Kumar. He is maintaining O2 saturations in the 90s on 4 L/min per nasal cannula. He has been afebrile. Hemodynamically stable. White count 10.2. Hemoglobin 7.8. Platelets 305. Sodium 134. Potassium 3.9. Bicarb 36. BUN 18. Creatinine 0.54. Glucose 106. He is continued on DuoNeb and elations, Symbicort, Solu- Medrol. Remains on IV diuretics. Remains on clindamycin. Eliquis will be resumed postprocedure. The patient is seen today April 13, 2024 in follow-up on the regular medical floor. He was transferred off the selective care unit yesterday. He is sitting up in bed. Awake and alert in no acute distress. Maintaining good O2 saturations in the 90s on 4 L/min per nasal cannula. He is afebrile. Hemodynamically stable. Sputum culture revealed no growth. Blood culture revealed no growth. Bronchial wash cultures revealed no growth. White count 17.0. Hemoglobin 8.5. Platelets 350. Sodium 133. Potassium 4.0. Bicarb 32. BUN 23. Creatinine 0.37. Glucose 158. He is continued on DuoNeb inhalations, Symbicort, Solu-Medrol. Remains on IV diuretics. Remains anticoagulated with Eliquis. Objective - Vital Signs Vital signs: Vital Signs Temp 97.6 F 04/13/24 07:20 Pulse 94 04/13/24 12:38 Resp 20 04/13/24 12:38 BP 111/68 04/13/24 07:20 Pulse Ox 94 L 04/13/24 08:51 FiO2 21 04/08/24 07:59 Intake & Output 04/12/24 04/13/24 04/13/24 18:59 06:59 18:59 Intake Total 2089 250 Output Total 150 300 900 Balance 1940 -50 -900 Weight 62.5 kg Intake: IV 20 10 Invasive Line 2 20 10 Oral 2069 240 Output: Urine 150 300 900 Other: Voiding Method Urinal Urinal Urinal # Voids 2 - Exam GENERAL EXAM: Alert, thin 63-year-old male patient, on 4 L nasal cannula, comfortable in no apparent distress. HEAD: Normocephalic. EYES: Normal reaction of pupils, equal size. NOSE: Clear with pink turbinates. THROAT: No erythema or exudates. NECK: No masses, no JVD. CHEST: No chest wall deformity. LUNGS: Equal air entry with bilateral scattered rhonchi more so on the right lung. CVS: S1 and S2 normal with no audible murmur, regular rhythm. ABDOMEN: No hepatosplenomegaly, normal bowel sounds, no guarding or rigidity. SPINE: No scoliosis or deformity SKIN: No rashes CENTRAL NERVOUS SYSTEM: No focal deficits, tone is normal in all 4 extremities. EXTREMITIES: There is 1+ peripheral edema. No clubbing, no cyanosis. Peripheral pulses are intact. - Labs CBC & Chem 7: 04/13/24 06:14 04/13/24 06:09 Labs: Abnormal Lab Results - Last 24 Hours (Table) 04/12/24 04/12/24 04/13/24 Range/Units 16:52 20:41 06:09 WBC (3.8-10.6) k/uL RBC (4.30-5.90) m/uL Hgb (13.0-17.5) gm/dL Hct (39.0-53.0) % MCHC (31.0-37.0) g/dL RDW (11.5-15.5) % Neutrophils # (1.3-7.7) k/uL Lymphocytes # (1.0-4.8) k/uL Sodium 133 L (137-145) mmol/L Chloride 93 L (98-107) mmol/L Carbon Dioxide 32 H (22-30) mmol/L BUN 23 H (9-20) mg/dL Creatinine 0.37 L (0.66-1.25) mg/dL Glucose 158 H (74-99) mg/dL POC Glucose (mg/dL) 130 H 167 H (70-110) mg/dL 04/13/24 04/13/24 04/13/24 Range/Units 06:14 06:21 11:26 WBC 17.0 H (3.8-10.6) k/uL RBC 2.97 L (4.30-5.90) m/uL Hgb 8.5 L (13.0-17.5) gm/dL Hct 29.3 L (39.0-53.0) % MCHC 29.1 L (31.0-37.0) g/dL RDW 22.3 H (11.5-15.5) % Neutrophils # 16.3 H (1.3-7.7) k/uL Lymphocytes # 0.1 L (1.0-4.8) k/uL Sodium (137-145) mmol/L Chloride (98-107) mmol/L Carbon Dioxide (22-30) mmol/L BUN (9-20) mg/dL Creatinine (0.66-1.25) mg/dL Glucose (74-99) mg/dL POC Glucose (mg/dL) 222 H 181 H (70-110) mg/dL Microbiology - Last 24 Hours (Table) 04/11/24 13:30 Gram Stain - Preliminary Bronchoalviolar Lavage - Right Bronchial Washings Culture - Preliminary 04/11/24 13:30 Acid Fast Bacilli Smear - Preliminary Bronchoalviolar Lavage - Right Assessment and Plan Assessment: Acute on chronic shortness of breath, chest x-ray showing worsening multifocal airspace disease particularly in the right middle/upper lung zones, as well as, left perihilar region. This likely represents disease progression, superimposed infectious process is not excluded. The patient is currently on 4 L of oxygen by nasal cannula. Bronchoscopy done 04/11/2024, cultures revealing no growth thus far Recent bronchoscopy, January 23, negative for cytology and microbiology positive for MSSA Metastatic squamous cell carcinoma of the lung, diagnosed initially 2020. Patient previously treated with chemo/radiation. Patient is restarted on systemic therapy and the patient is currently on IV Gemzar. Follow-up CAT scan of the chest done on 04/05/2024 is consistent with disease progression regarding his squamous cell carcinoma as noted. Superimposed pneumonia is felt to be less likely. Moderate chronic obstructive pulmonary disease, with an FEV1 51% of predicted Paroxysmal atrial fibrillation, transient bouts of RVR on monitor Bilateral lower extremity edema Chronic anemia, hemoglobin stable History of hypertension. History of hyperlipidemia. History of CAD with previous PCI/stent. History of ischemic cardiomyopathy, most recent available echocardiogram from August, showing improvement in left ventricular ejection fraction of 55 to 60% Chronic and ongoing tobacco dependence. Plan: The patient was seen and evaluated Labs and medications reviewed Continue bronchodilators, steroids Continue IV diuretics Completed antibiotics Overall prognosis remains poor Cleared for transfer to [facility] however bed/authorization pending I have personally seen and examined the patient, performed the documentation and the assessment and plan as written. Number of minutes spent on the visit: 10 Dictation was produced using [employer] software. Please excuse any grammatical, word or spelling errors.
--- NOTE | 2024-04-13 15:17 | P.PN ---
Subjective Progress Note Date: 04/13/24 Hospital Course: Patient is a pleasant 63-year-old male with a past medical history of squamous cell carcinoma of lung currently undergoing chemotherapy, COPD not home oxygen dependent, CAD status post stenting, ischemic cardiomyopathy, paroxysmal atrial fibrillation on anticoagulation with Eliquis, chronic diastolic heart failure, hypertension, hyperlipidemia, and nicotine dependence.. He reports following with alining inspector/oncologist Dr. Hoyos and states last chemotherapy treatment was 1 week ago tomorrow. He presented to the emergency department on 04/04/2024 secondary to reports of shortness of breath accompanied by worsening cough with production of yellowish-brown sputum. Upon arrival to our facility, patient underwent evaluation in the emergency department. Vital signs upon arrival showing blood pressure 119/82, heart rate 111, respiratory rate 22, temp 98.2 F, and SpO2 of 99% on room air. EKG completed showing sinus tachycardia at 107 bpm with repeat EKG showing atrial fibrillation with RVR at 133 bpm T wave inversion in lateral leads I, aVL, V5 and V6.. Chest x-ray showing moderate amount of airspace opacities in bilateral lungs concentrated in the right middle/upper lung zones and left perihilar regions suggestive of pneumonia. Labs completed and reviewed. CBC showing normocytic anemia with hemoglobin of 9.0 chronic and at baseline. Coagulation profile normal findings. BMP showing hypochloremic hyponatremia with sodium of 135 and chloride of 96. Blood glucose 115. Lactic acid 2.6. Magnesium 2.0. Liver profile unremarkable. Troponin was negative at less than 0.012 and proBNP was 2360. Influenza A, influenza B, RSV, and COVID PCR negative. CT chest with IV contrast completed showing increasing soft tissue density throughout the mediastinum encasing vessels and bronchi, a 1.4 cm paratracheal mass with subtle hypodense center may be a necrotic lymph node versus soft tissue mass, increasing lung findings suspicious for metastatic disease and increasing pericardial effusion. Patient admitted under our services with consultation to pulmonology and oncology. he was started on clindamycin Status post BAL on 04/11, significant necrotic tissue noted in the whole right upper lobe, related to his cancer, radiation treatment, similar changes noted in the left mainstem bronchus, carinal area. Cultures and cytology pending Pertinent Imaging: [] Subjective: [] Pertinent positives and negatives as discussed above, a complete review of systems was performed and all other systems are negative. General: Nontoxic, no acute distress, chronically ill-appearing. Frail and emaciated Derm: Skin warm and dry, normal coloration for ethnicity. Head: Atraumatic, normocephalic and symmetric. Eyes: EOM's intact, no lid lag, and anicteric sclera Mouth: no lip lesions, mucus membranes moist Cardiovascular: regular rate and rhythm with normal S1S2, no murmur, positive posterior tibial pulses bilaterally, and cap refill < 2 seconds. Lungs: Respirations even, regular, and unlabored on supplemental oxygen. Lungs diffuse coarse rhonchi throughout with expiratory wheezes. Abdominal: soft, nontender to palpation, no guarding, no appreciable organomegaly Ext: ROM intact. No gross muscle atrophy, 1+ pitting BLE edema, no contractures. Neuro: Speech clear, face symmetrical and CN II-XII grossly intact with no noted focal neuro deficits Psych: Alert and oriented to person, place, time, and situation. Appropriate and pleasant affect. Lab work reviewed: Cytosis 17.9, hemoglobin 8.5, stable, normal blood count, sodium 133, potassium normal 4.0, creatinine 0.37, bicarb 22, blood glucose 158 Assessment and Plan of Care: Acute hypoxic respiratory failure COPD with acute exacerbation Metastatic squamous cell carcinoma of lung Concerns for possible pneumonia, recent bronchoscopy completed positive for MSSA -Pulmonology following -Oxygenation to be administered and titrated as needed to maintain SPO2 equal to or greater than 92%. -Telemetry monitoring. -Monitor pulse-oximetry -Duonebs scheduled 4 times daily and as needed for SOB and/or wheezing. -Incentive Spirometry -Steroids: Solu-Medrol 60 mg IVP daily -Urine Legionella negative. Sputum culture showing no growth. Blood culture negative showing no growth after 5 days. -Continue Clindamycin 450 mg every 6 hours per recommendations of pulmonolgy due to inability to completely rule out underlying infectious process. SOT 04/07 -Oncology following, plan to continue with third cycle of Gemzar once acutely recovered -Follow-up on BAL cultures and cytology from 04/11 -Stable for discharge, pending patient authorization Acute on chronic diastolic heart failure with mild exacerbation CAD status post stenting Paroxysmal atrial fibrillation Hypertension Hyperlipidemia -Continue Lasix 40 mg IVP daily. -Monitor vital signs and continue daily medication regimen with amiodarone 200 mg daily, Eliquis 5 mg twice daily, atorvastatin 80 mg nightly, and metoprolol 12.5 mg twice daily, Severe protein calorie malnutrition -Protein 5.1 and albumin 2.6. Severe protein calorie malnutrition likely secondary to advanced squamous cell carcinoma of the lung with metastasis and decreased oral intake. -Patient started on protein supplements 3 times daily between meals and consult placed to dietitian. Nicotine dependence -Patient reported that he has cut back significantly on smoking and declined wanting nicotine patch at this time. CODE STATUS: Full code DVT prophylaxis: Eliquis Anticipated discharge date: 04/13 stable for discharge, pending insurance authorization Anticipated discharge placeSAR Objective - Vital Signs Vital signs: Vital Signs Temp 98.4 F 04/13/24 14:20 Pulse 94 04/13/24 14:20 Resp 20 04/13/24 14:20 BP 103/66 04/13/24 14:20 Pulse Ox 94 L 04/13/24 14:20 FiO2 21 04/08/24 07:59 Intake & Output 04/12/24 04/13/24 04/13/24 18:59 06:59 18:59 Intake Total 209 250 Output Total 150 300 900 Balance 1940 -50 -900 Weight 62.5 kg Intake: IV 20 10 Invasive Line 2 20 10 Oral 2070 240 Output: Urine 150 300 900 Other: Voiding Method Urinal Urinal Urinal # Voids 2 - Labs CBC & Chem 7: 04/13/24 06:14 04/13/24 06:09 Labs: Abnormal Lab Results - Last 24 Hours (Table) 04/12/24 04/12/24 04/13/24 Range/Units 16:52 20:41 06:09 WBC (3.8-10.6) k/uL RBC (4.30-5.90) m/uL Hgb (13.0-17.5) gm/dL Hct (39.0-53.0) % MCHC (31.0-37.0) g/dL RDW (11.5-15.5) % Neutrophils # (1.3-7.7) k/uL Lymphocytes # (1.0-4.8) k/uL Sodium 133 L (137-145) mmol/L Chloride 93 L (98-107) mmol/L Carbon Dioxide 32 H (22-30) mmol/L BUN 23 H (9-20) mg/dL Creatinine 0.37 L (0.66-1.25) mg/dL Glucose 158 H (74-99) mg/dL POC Glucose (mg/dL) 130 H 167 H (70-110) mg/dL 04/13/24 04/13/24 04/13/24 Range/Units 06:14 06:21 11:26 WBC 17.0 H (3.8-10.6) k/uL RBC 2.97 L (4.30-5.90) m/uL Hgb 8.5 L (13.0-17.5) gm/dL Hct 29.3 L (39.0-53.0) % MCHC 29.1 L (31.0-37.0) g/dL RDW 22.3 H (11.5-15.5) % Neutrophils # 16.3 H (1.3-7.7) k/uL Lymphocytes # 0.1 L (1.0-4.8) k/uL Sodium (137-145) mmol/L Chloride (98-107) mmol/L Carbon Dioxide (22-30) mmol/L BUN (9-20) mg/dL Creatinine (0.66-1.25) mg/dL Glucose (74-99) mg/dL POC Glucose (mg/dL) 222 H 181 H (70-110) mg/dL Microbiology - Last 24 Hours (Table) 04/11/24 13:30 Gram Stain - Preliminary Bronchoalviolar Lavage - Right Bronchial Washings Culture - Preliminary 04/11/24 13:30 Acid Fast Bacilli Smear - Preliminary Bronchoalviolar Lavage - Right
[2024-04-13 16:55] LABS: Glucose,Whole Blood 224 mg/dL (70-110)
--- NOTE | 2024-04-13 17:41 | P.PN ---
Subjective Progress Note Date: 04/13/24 NO acute events overnight. S/p bronch with BAL of RUL, reporting improvement in breathing today. C/o of generalized weakness, and difficulties ambulating and concerns for going home. Plan is for rehab upon discharge Objective - Vital Signs Vital signs: Vital Signs Temp 97.6 F 04/13/24 07:20 Pulse 95 04/13/24 09:04 Resp 22 04/13/24 09:04 BP 111/68 04/13/24 07:20 Pulse Ox 94 L 04/13/24 08:51 FiO2 21 04/08/24 07:59 Intake & Output 04/12/24 04/13/24 04/13/24 18:59 06:59 18:59 Intake Total 2089 250 Output Total 150 300 900 Balance 1939 Weight 62.5 kg Intake: IV 20 10 Invasive Line 2 20 10 Oral 2069 240 Output: Urine 150 300 900 Other: Voiding Method Urinal Urinal Urinal # Voids 2 - Constitutional General appearance: Present: no acute distress, thin - EENT Eyes: Present: anicteric sclerae, EOMI ENT: Present: hearing grossly normal - Respiratory Details: breathing is even and unlabored - Cardiovascular Details: skin warm and dry - Integumentary Integumentary: Absent: cyanotic, jaundiced - Musculoskeletal Musculoskeletal: Present: generalized weakness - Psychiatric Psychiatric: Present: A&O x's 3 - Labs CBC & Chem 7: 04/13/24 06:14 04/13/24 06:09 Labs: Abnormal Lab Results - Last 24 Hours (Table) 04/12/24 04/12/24 04/13/24 Range/Units 16:52 20:41 06:09 WBC (3.8-10.6) k/uL RBC (4.30-5.90) m/uL Hgb (13.0-17.5) gm/dL Hct (39.0-53.0) % MCHC (31.0-37.0) g/dL RDW (11.5-15.5) % Neutrophils # (1.3-7.7) k/uL Lymphocytes # (1.0-4.8) k/uL Sodium 133 L (137-145) mmol/L Chloride 93 L (98-107) mmol/L Carbon Dioxide 32 H (22-30) mmol/L BUN 23 H (9-20) mg/dL Creatinine 0.37 L (0.66-1.25) mg/dL Glucose 158 H (74-99) mg/dL POC Glucose (mg/dL) 130 H 167 H (70-110) mg/dL 04/13/24 04/13/24 04/13/24 Range/Units 06:14 06:21 11:26 WBC 17.0 H (3.8-10.6) k/uL RBC 2.97 L (4.30-5.90) m/uL Hgb 8.5 L (13.0-17.5) gm/dL Hct 29.3 L (39.0-53.0) % MCHC 29.1 L (31.0-37.0) g/dL RDW 22.3 H (11.5-15.5) % Neutrophils # 16.3 H (1.3-7.7) k/uL Lymphocytes # 0.1 L (1.0-4.8) k/uL Sodium (137-145) mmol/L Chloride (98-107) mmol/L Carbon Dioxide (22-30) mmol/L BUN (9-20) mg/dL Creatinine (0.66-1.25) mg/dL Glucose (74-99) mg/dL POC Glucose (mg/dL) 222 H 181 H (70-110) mg/dL Microbiology - Last 24 Hours (Table) 04/11/24 13:30 Gram Stain - Preliminary Bronchoalviolar Lavage - Right Assessment and Plan (1) Acute exacerbation of chronic obstructive pulmonary disease Current Visit: Yes Status: Acute Priority: High Code(s): J44.1 - CHRONIC OBSTRUCTIVE PULMONARY DISEASE W (ACUTE) EXACERBATION SNOMED Code(s): 523382495 (2) Lung cancer Current Visit: Yes Status: Chronic Priority: High Code(s): C34.90 - MALIGNANT NEOPLASM OF UNSP PART OF UNSP BRONCHUS OR LUNG SNOMED Code(s): 042624707 Plan: COPD exacerbation -Less cough and expectoration. SOB improving. Remains afebrile -Abx completed. Continues IV steroids and bronchodilators -CT chest report reviewed, compared to report from Nov 2023. No suspected disease progression or new disease at this time. Plan is for 1 more cycle of treatment after resolution of acute condition then CT with comparison. Pt agreeable with plan. -ECHO showing EF 35-40%. Trace pericardial effusion --Pulmonary following. S/p bronch with BAL of RUL, with improvement in breathing. Cytology and culture pending Metastatic squamous cell carcinoma -Diagnosis and treatment history as stated in consult. -Patient is most recently been on single agent Gemzar, status post 2 cycles, actually doing fairly well with treatment, mild hematological toxicities -Once acutely recovered and discharged from rehab will plan for 3rd cycle of Gemzar
[2024-04-13 20:28] LABS: Glucose,Whole Blood 190 mg/dL (70-110)
[2024-04-14 06:30] LABS: Glucose,Whole Blood 126 mg/dL (70-110)
[2024-04-14 07:20] LABS: Anisocytosis Moderate; Basophils % (A) 0 %; Eosinophils % (A) 0 %; HCT 29.3 % (39.0-53.0); HGB 8.7 gm/dL (13.0-17.5); Hypochromasia Marked; Lymphocytes # (A) 0.1 k/uL (1.0-4.8); Lymphocytes % (A) 1 %; MCH 29.2 pg (25.0-35.0); MCHC 29.8 g/dL (31.0-37.0); MCV 97.9 fL (80.0-100.0); Macrocytosis Moderate; Mean Platelet Volume 7.8; Monocytes # (A) 0.7 k/uL (0-1.0); Monocytes % (A) 4 %; Neutrophils # (A) 18.2 k/uL (1.3-7.7); Neutrophils % (A) 96 %; Platelet Count 319 k/uL (150-450); Poikilocytosis Slight; RBC 2.99 m/uL (4.30-5.90); RDW 21.9 % (11.5-15.5); WBC 19.1 k/uL (3.8-10.6)
[2024-04-14 07:30] LABS: African American GFR (CKD) >90 (>60 ml/min/1.73 sqM); Anion Gap 6 mmol/L; Blood Urea Nitrogen 20 mg/dL (9-20); Calcium 8.3 mg/dL (8.4-10.2); Carbon Dioxide 34 mmol/L (22-30); Chloride 93 mmol/L (98-107); Glucose 113 mg/dL (74-99); Non-African American GFR(CKD) >90 (>60 ml/min/1.73 sqM); Sodium 133 mmol/L (137-145)
[2024-04-14] MEDS: LORazepam 2 MG/ML INJ IV PRN (08:43)
--- NOTE | 2024-04-14 09:00 | XR ---
EXAMINATION TYPE: XR chest 1V portable DATE OF EXAM: 04/14/2024 8:45 AM COMPARISON: Multiple radiographs, with the most recent on 04/11/2024. CT chest 04/05/2024. TECHNIQUE: XR chest 1V portable Portable AP radiograph of the chest. CLINICAL INDICATION:Male, 63 years old with history of shortness of breath; FINDINGS: Lungs/Pleura: No pneumothorax. No pleural effusion. Right apical pleural thickening. Increased right perihilar consolidation. Similar patchy airspace opacities throughout the right lung. Similar left pe rihilar opacity. Pulmonary vascularity: Unremarkable. Heart/mediastinum: Cardiomediastinal silhouette is prominent in size. Atherosclerotic calcifications are seen in the aorta. Musculoskeletal: No acute osseous pathology. IMPRESSION: 1. Increasing right perihilar consolidative opacity corresponding to previously seen cavitary lesion . 2. Similar patchy airspace opacities throughout the right lung concerning for pneumonia or metastati c disease. 3. Similar left perihilar consolidative opacity mediastinal soft tissue encasement. [facility], , 04/14/2024 8:57 AM
[2024-04-14 09:17] LABS: Glucose,Whole Blood 81 mg/dL (70-110)
[2024-04-14] MEDS: methylPREDNISolone SOD SUCCI 125 MG/2 ML VIAL IV SCH (10:25)
[2024-04-14] MEDS ORDERED: LORazepam 2 MG/ML INJ IV PRN (10:41)
[2024-04-14] MEDS: DEXMEDETOMIDINE/0.9% NACL(PMX) 400 MCG in EMPTY BAG 1 BAG IV SCH (10:57)
[2024-04-14] MEDS: LORazepam 2 MG/ML INJ IV ONE (11:00)
[2024-04-14 12:07] LABS: Glucose,Whole Blood 112 mg/dL (70-110)
--- NOTE | 2024-04-14 13:30 | P.PN ---
Subjective Progress Note Date: 04/14/24 Hospital Course: Patient is a pleasant 63-year-old male with a past medical history of squamous cell carcinoma of lung currently undergoing chemotherapy, COPD not home oxygen dependent, CAD status post stenting, ischemic cardiomyopathy, paroxysmal atrial fibrillation on anticoagulation with Eliquis, chronic diastolic heart failure, hypertension, hyperlipidemia, and nicotine dependence.. He reports following with tube coater/oncologist Dr. Hoyos and states last chemotherapy treatment was 1 week ago tomorrow. He presented to the emergency department on 04/04/2024 secondary to reports of shortness of breath accompanied by worsening cough with production of yellowish-brown sputum. Upon arrival to our facility, patient underwent evaluation in the emergency department. Vital signs upon arrival showing blood pressure 119/82, heart rate 111, respiratory rate 22, temp 98.2 F, and SpO2 of 99% on room air. EKG completed showing sinus tachycardia at 107 bpm with repeat EKG showing atrial fibrillation with RVR at 133 bpm T wave inversion in lateral leads I, aVL, V5 and V6.. Chest x-ray showing moderate amount of airspace opacities in bilateral lungs concentrated in the right middle/upper lung zones and left perihilar regions suggestive of pneumonia. Labs completed and reviewed. CBC showing normocytic anemia with hemoglobin of 9.0 chronic and at baseline. Coagulation profile normal findings. BMP showing hypochloremic hyponatremia with sodium of 135 and chloride of 96. Blood glucose 115. Lactic acid 2.6. Magnesium 2.0. Liver profile unremarkable. Troponin was negative at less than 0.012 and proBNP was 2360. Influenza A, influenza B, RSV, and COVID PCR negative. CT chest with IV contrast completed showing increasing soft tissue density throughout the mediastinum encasing vessels and bronchi, a 1.4 cm paratracheal mass with subtle hypodense center may be a necrotic lymph node versus soft tissue mass, increasing lung findings suspicious for metastatic disease and increasing pericardial effusion. Patient admitted under our services with consultation to pulmonology and oncology. he was started on clindamycin Status post BAL on 04/11, significant necrotic tissue noted in the whole right upper lobe, related to his cancer, radiation treatment, similar changes noted in the left mainstem bronchus, carinal area. Cultures and cytology pending 04/14/2024 rapid response was called for respiratory distress. Patient desaturated to low 80s,was tachepneic with coughing spells, was placed on nasal cannula 15 L, then advance to Air, satting in mid 90s. His blood pressure remained stable. He was provided with his morning dose of Lasix 40 IV once, breathing treatment, 1 dose of Ativan 0.5 IV, patient noted he was panicking, no beds on 3 S. available, patient was transferred to the ICU as overflow. Chest x-ray during rapid response was done and corrected by me as below. I addressed patient's CODE STATUS again, explained the nature of resuscitation process, patient stated that he wants to remain full code at this time. We did discuss his significant comorbidities, chances of survival and meaningful recovery after resuscitation. Pertinent Imaging: Chest x-ray during rapid response showed increasing right-sided opacities, no significant changes on the left side with persistent opacities. No pneumothorax Subjective: Patient was seen and examined during rapid response, complaining of shortness of breath, feeling like he is putting his face in water, denies chest pain, abdominal pain, he has significant cough, productive, comes in coughing spells that are difficult to stop Pertinent positives and negatives as discussed above, a complete review of systems was performed and all other systems are negative. General: Nontoxic, no acute distress, chronically ill-appearing. Frail and emaciated Derm: Skin warm and dry, normal coloration for ethnicity. Head: Atraumatic, normocephalic and symmetric. Eyes: EOM's intact, no lid lag, and anicteric sclera Mouth: no lip lesions, mucus membranes moist Cardiovascular: regular rate and rhythm with normal S1S2, no murmur, positive posterior tibial pulses bilaterally, and cap refill < 2 seconds. Lungs: Dyspneic, in respiratory distress, accessory muscle use, conversational dyspnea. Lungs diffuse coarse rhonchi throughout with expiratory wheezes. Abdominal: soft, nontender to palpation, no guarding, no appreciable organomegaly Ext: ROM intact. No gross muscle atrophy, 1+ pitting BLE edema, no contractures. Neuro: Speech clear, face symmetrical and CN II-XII grossly intact with no noted focal neuro deficits Psych: Alert and oriented to person, place, time, and situation. Appropriate and pleasant affect. Lab work reviewed leukocytosis 19.1, hemoglobin 8.7, platelet count normal, s odium 132, potassium 4.0, bicarb 24, creatinine 0.45, blood glucose is controlled Assessment and Plan of Care: Acute hypoxic respiratory failure COPD with acute exacerbation Metastatic squamous cell carcinoma of lung Concerns for possible pneumonia, recent bronchoscopy completed positive for MSSA -Pulmonology following -Oxygenation to be administered and titrated as needed to maintain SPO2 equal to or greater than 92%. -Telemetry monitoring. -Monitor pulse-oximetry -Duonebs scheduled 4 times daily and as needed for SOB and/or wheezing. -Incentive Spirometry -Steroids: Solu-Medrol 60 mg IVP daily -Urine Legionella negative. Sputum culture showing no growth. Blood culture negative showing no growth after 5 days. -Continue Clindamycin 450 mg every 6 hours per recommendations of pulmonolgy due to inability to completely rule out underlying infectious process. SOT 04/07 -Oncology following, plan to continue with third cycle of Gemzar once acutely recovered -Follow-up on BAL cultures and cytology from 04/11 -transferred to ICU as overflow, on airvo Acute on chronic diastolic heart failure with mild exacerbation CAD status post stenting Paroxysmal atrial fibrillation Hypertension Hyperlipidemia -Continue Lasix 40 mg IVP daily. -Monitor vital signs and continue daily medication regimen with amiodarone 200 mg daily, Eliquis 5 mg twice daily, atorvastatin 80 mg nightly, and metoprolol 12.5 mg twice daily, Severe protein calorie malnutrition -Protein 5.1 and albumin 2.6. Severe protein calorie malnutrition likely secondary to advanced squamous cell carcinoma of the lung with metastasis and decreased oral intake. -Patient started on protein supplements 3 times daily between meals and consult placed to dietitian. Nicotine dependence -Patient reported that he has cut back significantly on smoking and declined wanting nicotine patch at this time. CODE STATUS: Full code DVT prophylaxis: Eliquis Anticipated discharge date: 04/13 stable for discharge, pending insurance authorization Anticipated discharge placeSAR Objective - Vital Signs Vital signs: Vital Signs Temp 97.7 F 04/14/24 07:09 Pulse 93 04/14/24 13:03 Resp 24 04/14/24 09:46 BP 95/63 04/14/24 07:09 Pulse Ox 99 04/14/24 12:53 FiO2 80 04/14/24 12:53 Intake & Output 04/13/24 04/14/24 04/14/24 18:59 06:59 18:59 Output Total 900 500 650 Balance -900 -500 -650 Weight 61 kg Output: Urine 900 500 650 Other: Voiding Method Urinal External Catheter # Voids 2 - Labs CBC & Chem 7: 04/14/24 05:48 04/14/24 05:48 Labs: Abnormal Lab Results - Last 24 Hours (Table) 04/13/24 04/13/24 04/14/24 Range/Units 16:53 20:27 05:48 WBC 19.1 H (3.8-10.6) k/uL RBC 2.99 L (4.30-5.90) m/uL Hgb 8.7 L (13.0-17.5) gm/dL Hct 29.3 L (39.0-53.0) % MCHC 29.8 L (31.0-37.0) g/dL RDW 21.9 H (11.5-15.5) % Neutrophils # 18.2 H (1.3-7.7) k/uL Lymphocytes # 0.1 L (1.0-4.8) k/uL Sodium (137-145) mmol/L Chloride (98-107) mmol/L Carbon Dioxide (22-30) mmol/L Creatinine (0.66-1.25) mg/dL Glucose (74-99) mg/dL POC Glucose (mg/dL) 224 H 190 H (70-110) mg/dL Calcium (8.4-10.2) mg/dL 04/14/24 04/14/24 04/14/24 Range/Units 05:48 06:29 12:06 WBC (3.8-10.6) k/uL RBC (4.30-5.90) m/uL Hgb (13.0-17.5) gm/dL Hct (39.0-53.0) % MCHC (31.0-37.0) g/dL RDW (11.5-15.5) % Neutrophils # (1.3-7.7) k/uL Lymphocytes # (1.0-4.8) k/uL Sodium 133 L (137-145) mmol/L Chloride 93 L (98-107) mmol/L Carbon Dioxide 34 H (22-30) mmol/L Creatinine 0.45 L (0.66-1.25) mg/dL Glucose 113 H (74-99) mg/dL POC Glucose (mg/dL) 126 H 112 H (70-110) mg/dL Calcium 8.3 L (8.4-10.2) mg/dL Microbiology - Last 24 Hours (Table) 04/11/24 13:30 Gram Stain - Final Bronchoalviolar Lavage - Right Bronchial Washings Culture - Final 04/11/24 13:30 Acid Fast Bacilli Smear - Preliminary Bronchoalviolar Lavage - Right
[2024-04-14] MEDS: SODIUM CHLORIDE 0.9% 1,000 ML IV ONE ×2 (13:45→16:07)
--- NOTE | 2024-04-14 13:48 | P.PN ---
Subjective Progress Note Date: 04/14/24 Principal diagnosis: Acute on chronic hypoxic respiratory failure, multifactorial mostly related to his COPD exacerbation, pneumonia, and bronchogenic carcinoma. Patient is a 63-year-old male with past medical history significant for COPD, lung cancer, hypertension, hyperlipidemia, CAD with previous PCI/stents, ischemic cardiomyopathy, and atrial fibrillation anticoagulated on Eliquis. Patient is known to have metastatic non-small cell lung cancer. His oncologist is Dr. Hoyos. Treated in the past with chemo/radiation, and patient is currently on systemic therapy, 2 weeks on 1 week off. Of note, patient has had multiple recent hospitalizations, as well as, recent bronchoscopy with airway examination and BAL on January 23. Washing was positive for MSSA. More recently on 03/13/2024, patient was treated for right upper lobe pneumonia, possibly postobstructive, on an outpatient basis with a course of Levaquin by Dr. Kumar. Patient presents emergency department late last night with a chief complaint of shortness of breath. Associated productive cough with yellow sputum production. Workup in the emergency department including a chest x-ray showing worsening multifocal airspace disease particularly in the right middle/upper lung zones as well as left perihilar region. This likely represents disease progression, with possible superimposed infectious process. CBC: WBC count of 6.8, hemoglobin 9, platelets 157. CMP: Sodium 135, potassium 3.7, chloride 96, serum bicarb 28, BUN 17, creatinine 0.65, glucose 115. Lactic was 2.6 and is down to 1. Troponi n less than 0.012. NT proBNP 2360. EKG: Sinus tachycardia, rate 107 bpm, no acute ST segment elevations. Viral screen negative for influenza, RSV, COVID. Patient was placed on empiric antibiotics in the ED in the form of azithromycin and cefepime. Patient currently being evaluated in the emergency department. He is on room air. Nondistressed. He has been coughing up clear to yellow phlegm into a bottle. Denies sick contacts. Denies any fever/chills, hemoptysis, chest pain. Does report worsening lower extremity swelling. Appears the patient flipping in and out of atrial fibrillation with rapid ventricular response. He has known history of atrial fibrillation, and his cardiac medications are yet to be restarted. Denies chest pain, heart palpitations, lightheadedness/syncopal events, orthopnea, PND. Most recent available echocardiogram from 09/06/2023 demonstrating a preserved ejection fraction. Current most recent vital signs: Temperature 98.2 F, heart rate 90 bpm, blood pressure 103/78 mmHg, nontachypneic SpO2 reading 99% on room air. On 04/06/2024, the patient is being seen for a follow-up. Slightly improved compared to yesterday. Continues to have a cough and congestion in his chest. Sputum sample was given and the cultures are still pending for now. Remains to be bronchospastic and wheezy. No fever. No hemodynamic instability. No hemoptysis. The patient had a CAT scan of the chest yesterday and this was reviewed and it shows progression of his disease with increased soft tissue density throughout the mediastinum consistent with progression of his squamous cell carcinoma in addition to a cavitating suprahilar mass. He was receiving IV Gemzar on outpatient basis as palliative systemic chemotherapy. No other new complaints otherwise for now. Remains on DuoNeb. Remains on IV cefepime and Zithromax. He is also on IV Solu-Medrol 60 mg every 6 hours. No other significant events overnight. On 04/07/2024, the patient is being seen for a follow-up. Continues to have some cough and congestion although less compared to yesterday. The sputum sample is still pending for now. Noted the patient's procalcitonin level was not elevated and a pneumonia is felt to be less likely. His presentation is not related to COPD exacerbation and underlying lung cancer. The patient was receiving IV Gemzar regarding his lung cancer on outpatient basis. Feels well. No new complaints. Appetite is diminished. Currently on 2 L of oxygen by nasal cannu la. White cell count is at 5.4 with a hemoglobin of 7.7, BUN 16 with a creatinine 0.59 and sodium was 132. LFTs are normal. No other significant events overnight. Blood cultures have been negative. On 04/08/2024, the patient is being seen for a follow-up. The patient is currently on oxygen and at 2 L/min nasal cannula. Continues to have cough and congestion and is still producing thick mucus. The patient is currently on clindamycin. The patient is on DuoNeb nebulized treatments [id number]. The patient on Symbicort. The patient remains on IV Solu-Medrol 60 mg IV push every 6 hours. Sputum cultures have been negative. As mentioned, he is known to have underlying lung cancer, which is metastatic squamous cell carcinoma the patient has been receiving palliative chemotherapy with Gemzar. Blood work from today shows a white cell count of 7.8, hemoglobin 7.4 and platelet count of 257. BUN is 15 with a creatinine of 0.6. Sodium levels at 134. The patient is seen today April 09, 2024 in follow-up on the selective care unit. He is currently sitting up at the bedside. Awake and alert in no acute distress. Still quite dyspneic with minimal conversation. Dyspneic with minimal exertion. He is maintaining O2 saturations in the 90s on 3 L/min per nasal cannula. He is continued on DuoNeb and elations, Symbicort, Solu-Medrol. Antibiotics in the form of clindamycin. White count 8.4. Hemoglobin 7.5. Platelets 292. Sodium 134. Potassium 3.3. Bicarb 31. BUN 16. Creatinine 0.63. Glucose 135. He is anticoagulated with Eliquis. Remains on IV diuretics. Currently in a -1.8 L balance. The patient is seen today April 10, 2024 in follow-up on the selective care unit. He is currently resting in bed. Awake and alert in no acute distress. Continues with significant cough and congestion. Unable to clear his secretions. Is in the 90s on 4 L/min per nasal cannula. He is been afebrile. Hemodynamically stable. Sputum culture revealed no growth. Blood culture revealed no growth.. Hemoglobin 8.0. Platelets 319. Sodium 134. Potassium 3.9. Bicarb 35. BUN 12. Creatinine 0.54. Glucose 116. He remains on DuoNeb inhalations, Symbicort, Solu-Medrol. Remains on IV diuretics. Remains on antibiotics in the form of clindamycin. Anticoagulated with Eliquis. The patient is seen today April 11, 2024 in follow-up on the selective care unit. He is awake and alert in no acute distress. Continues with a loose congested cough. Plan is for bronchoscopy with BAL today with Dr. Kumar. He is maintaining O2 saturations in the 90s on 4 L/min per nasal cannula. He has been afebrile. Hemodynamically stable. White count 10.2. Hemoglobin 7.8. Platelets 305. Sodium 134. Potassium 3.9. Bicarb 36. BUN 18. Creatinine 0.54. Glucose 106. He is continued on DuoNeb and elations, Symbicort, Solu- Medrol. Remains on IV diuretics. Remains on clindamycin. Eliquis will be resumed postprocedure. Seen today on 04/12/2024, patient is a little better today compared to yesterday, nonetheless continues to cough and wheeze, continues to have shortness of breath, patient underwent a bronchoscopy and BAL of the right upper lobe yesterday, cultures from the BAL are pending. Patient remains on 3 L nasal cannula, O2 sats is 92%, he is hemodynamically stable, remains on clindamycin, and his Eliquis was resumed. Patient remains on Symbicort and Solu-Medrol. Patient was seen today and 05/03/2024, patient had to be transferred last night t o the ICU mostly because of intermittent episodes of shortness of breath, coughing, wheezing, extremely agitated, and constant cough. Patient was placed on 50 L Airvo with O2 sat in the 85% range, however he is extremely restless and agitated and continuously coughing. After evaluating the patient, I recommended 1 mg of Ativan I also recommended a Precedex drip. Risks patient does not calm down, may have to consider intubation mechanical ventilation. However his overall prognosis extremely poor, and I am afraid once the patient is intubated his prognosis becomes even extremely worse. His WBC count today is 19.1 hemoglobin 8.7 electrolytes are normal renal profile is normal bicarb is 34 chest x-ray continues to show significant airspace disease involving the right upper lobe and the right lower lobe and right midlung and to some extent the left perihilar area. Clearly the patient has significant airspace disease but mostly the right upper lobe where his initial cancer was present and he had radiation treatment to that right upper lobe. Objective - Vital Signs Vital signs: Vital Signs Temp 97.7 F 04/14/24 07:09 Pulse 93 04/14/24 13:03 Resp 24 04/14/24 09:46 BP 95/63 04/14/24 07:09 Pulse Ox 99 04/14/24 12:53 FiO2 80 04/14/24 12:53 Intake & Output 04/13/24 04/14/24 04/14/24 18:59 06:59 18:59 Output Total 900 500 650 Balance -900 -500 -650 Weight 61 kg Output: Urine 900 500 650 Other: Voiding Method Urinal External Catheter # Voids 2 - Exam GENERAL EXAM: Revealed 63-year-old white male agitated and restless continuously coughing on Airvo HEAD: Normocephalic. EYES: Normal reaction of pupils, equal size. NOSE: Clear with pink turbinates. THROAT: No erythema or exudates. NECK: No masses, no JVD. CHEST: No chest wall deformity. LUNGS: Rhonchi and wheezes noted bilaterally CVS: S1 and S2 normal with no audible murmur, regular rhythm. ABDOMEN: No hepatosplenomegaly, normal bowel sounds, no guarding or rigidity. SKIN: No rashes CENTRAL NERVOUS SYSTEM: Extremely agitated otherwise no focal deficit EXTREMITIES: Trace of edema no clubbing no cyanosis - Labs CBC & Chem 7: 04/14/24 05:48 04/14/24 05:48 Labs: Abnormal Lab Results - Last 24 Hours (Table) 04/13/24 04/13/24 04/14/24 Range/Units 16:53 20:27 05:48 WBC 19.1 H (3.8-10.6) k/uL RBC 2.99 L (4.30-5.90) m/uL Hgb 8.7 L (13.0-17.5) gm/dL Hct 29.3 L (39.0-53.0) % MCHC 29.8 L (31.0-37.0) g/dL RDW 21.9 H (11.5-15.5) % Neutrophils # 18.2 H (1.3-7.7) k/uL Lymphocytes # 0.1 L (1.0-4.8) k/uL Sodium (137-145) mmol/L Chloride (98-107) mmol/L Carbon Dioxide (22-30) mmol/L Creatinine (0.66-1.25) mg/dL Glucose (74-99) mg/dL POC Glucose (mg/dL) 224 H 190 H (70-110) mg/dL Calcium (8.4-10.2) mg/dL 04/14/24 04/14/24 04/14/24 Range/Units 05:48 06:29 12:06 WBC (3.8-10.6) k/uL RBC (4.30-5.90) m/uL Hgb (13.0-17.5) gm/dL Hct (39.0-53.0) % MCHC (31.0-37.0) g/dL RDW (11.5-15.5) % Neutrophils # (1.3-7.7) k/uL Lymphocytes # (1.0-4.8) k/uL Sodium 133 L (137-145) mmol/L Chloride 93 L (98-107) mmol/L Carbon Dioxide 34 H (22-30) mmol/L Creatinine 0.45 L (0.66-1.25) mg/dL Glucose 113 H (74-99) mg/dL POC Glucose (mg/dL) 126 H 112 H (70-110) mg/dL Calcium 8.3 L (8.4-10.2) mg/dL Microbiology - Last 24 Hours (Table) 04/11/24 13:30 Gram Stain - Final Bronchoalviolar Lavage - Right Bronchial Washings Culture - Final 04/11/24 13:30 Acid Fast Bacilli Smear - Preliminary Bronchoalviolar Lavage - Right Assessment and Plan Assessment: Impression: Acute on chronic shortness of breath, chest x-ray showing worsening multifocal airspace disease particularly in the right middle/upper lung zones, as well as, left perihilar region. This likely represents disease progression, superimposed infectious process is not excluded. Status post bronchoscopy on 04/11/2024, cultures came back nondiagnostic Metastatic squamous cell carcinoma of the lung, diagnosed initially 2020. Patient previously treated with chemo/radiation. Patient is restarted on systemic therapy and the patient is currently on IV Gemzar. Follow-up CAT scan of the chest done on 04/05/2024 is consistent with disease progression regarding his squamous cell carcinoma as noted. Superimposed pneumonia is felt to be less likely. Moderate chronic obstructive pulmonary disease, with an FEV1 51% of predicted Paroxysmal atrial fibrillation, transient bouts of RVR on monitor Bilateral lower extremity edema Chronic anemia, hemoglobin stable History of hypertension. History of hyperlipidemia. History of CAD with previous PCI/stent. History of ischemic cardiomyopathy, most recent available echocardiogram from August, showing improvement in left ventricular ejection fraction of 55 to 60% Chronic and ongoing tobacco dependence. Recommendation: Continue to monitor in the ICU Will start the patient on Precedex for extreme agitation Continue bronchodilators Continue diuretics and antibiotics Cultures from BAL came back nondiagnostic Patient has extremely poor prognosis and if intubated his prognosis will even be worse as the patient will be extremely difficult to wean and he may require tracheostomy and PEG tube placement. Patient continues to have multiple comorbidities as noted above Will continue to follow Time with Patient: Less than 30
[2024-04-14 16:12] LABS: Glucose,Whole Blood 125 mg/dL (70-110)
[2024-04-14] MEDS: NOREPINEPHRINE 4 MG in SODIUM CHLORIDE 0.9% 250 ML IV SCH (18:01)
[2024-04-14 21:20] LABS: Glucose,Whole Blood 115 mg/dL (70-110)
[2024-04-15] MEDS: LORazepam 2 MG/ML INJ IV SCH ×2 (01:23→10:09)
[2024-04-15 03:28] LABS: ABG HCO3 31 mmol/L (21-25); ABG PCO2 49 mmHg (35-45); ABG PO2 159 mmHg (83-108); ABG TCO2 32 mmol/L (19-24); Allen Test Performed? Yes
[2024-04-15 03:29] LABS: ABG Base Excess 5.2 mmol/L
--- NOTE | 2024-04-15 03:39 | XR ---
EXAM: XR Chest, 1 View CLINICAL HISTORY: ITS.REASON XR Reason: increasing shortness of breath TECHNIQUE: Frontal view of the chest. COMPARISON: No relevant prior studies available. IMPRESSION: Worsening bilateral lung opacities more prominent on the right upper
--- NOTE | 2024-04-15 03:54 | XR ---
EXAM: XR Chest, 1 View CLINICAL HISTORY: ITS.REASON XR Reason: intubated, tube placement TECHNIQUE: Frontal view of the chest. COMPARISON: 04/14/24 FINDINGS/IMPRESSION: 1. Endotracheal tube terminates 1.5 cm from the teresa. 2. Enteric tube extends to the stomach and beyond the [id number]. 3. Right greater than left perihilar airspace opacities, stable to mildly worsened from prior. 4. No significant pleural effusion. No pneumothorax. 5. Stable heart size. 6. Stable skeleton.
[2024-04-15 03:55] LABS: Anisocytosis Moderate; Basophils % (A) 0 %; Eosinophils % (A) 0 %; HCT 32.3 % (39.0-53.0); HGB 9.1 gm/dL (13.0-17.5); Hypochromasia Marked; Lymphocytes # (A) 0.1 k/uL (1.0-4.8); Lymphocytes % (A) 1 %; MCH 27.9 pg (25.0-35.0); MCHC 28.2 g/dL (31.0-37.0); MCV 98.9 fL (80.0-100.0); Macrocytosis Moderate; Mean Platelet Volume 8.2; Monocytes # (A) 0.4 k/uL (0-1.0); Monocytes % (A) 2 %; Neutrophils # (A) 18.4 k/uL (1.3-7.7); Neutrophils % (A) 97 %; Platelet Count 313 k/uL (150-450); Poikilocytosis Slight; RBC 3.26 m/uL (4.30-5.90)
[2024-04-15 04:08] LABS: African American GFR (CKD) >90 (>60 ml/min/1.73 sqM); Anion Gap 6 mmol/L; Blood Urea Nitrogen 26 mg/dL (9-20); Carbon Dioxide 32 mmol/L (22-30); Chloride 96 mmol/L (98-107); Glucose 90 mg/dL (74-99); Non-African American GFR(CKD) >90 (>60 ml/min/1.73 sqM); Potassium 4.5 mmol/L (3.5-5.1); Sodium 134 mmol/L (137-145)
[2024-04-15 05:16] LABS: Glucose,Whole Blood 90 mg/dL (70-110)
[2024-04-15] MEDS: INSULIN LISPRO (HumaLOG) 100 UNIT/ML 10 mL VL SQ SCH (05:35)
[2024-04-15] MEDS: PANTOPRAZOLE 40 MG/10 ML VIAL IVP SCH ×2 (08:05→21:17)
[2024-04-15] MEDS: CHLORHEXIDINE GLUCONATE 15 ML CUP MUCOUS MEM SCH (08:05)
[2024-04-15] MEDS: CISATRACURIUM 2 MG/ML 5 ML VIAL IV ONE (09:49)
--- NOTE | 2024-04-15 10:52 | P.PN ---
Subjective Progress Note Date: 04/15/24 Hospital Course: Patient is a pleasant 63-year-old male with a past medical history of squamous cell carcinoma of lung currently undergoing chemotherapy, COPD not home oxygen dependent, CAD status post stenting, ischemic cardiomyopathy, paroxysmal atrial fibrillation on anticoagulation with Eliquis, chronic diastolic heart failure, hypertension, hyperlipidemia, and nicotine dependence.. He reports following with insurance marketing specialist/oncologist Dr. Hoyos and states last chemotherapy treatment was 1 week ago tomorrow. He presented to the emergency department on 04/04/2024 secondary to reports of shortness of breath accompanied by worsening cough with production of yellowish-brown sputum. Upon arrival to our facility, patient underwent evaluation in the emergency department. Vital signs upon arrival showing blood pressure 119/82, heart rate 111, respiratory rate 22, temp 98.2 F, and SpO2 of 99% on room air. EKG completed showing sinus tachycardia at 107 bpm with repeat EKG showing atrial fibrillation with RVR at 133 bpm T wave inversion in lateral leads I, aVL, V5 and V6.. Chest x-ray showing moderate amount of airspace opacities in bilateral lungs concentrated in the right middle/upper lung zones and left perihilar regions suggestive of pneumonia. Labs completed and reviewed. CBC showing normocytic anemia with hemoglobin of 9.0 chronic and at baseline. Coagulation profile normal findings. BMP showing hypochloremic hyponatremia with sodium of 135 and chloride of 96. Blood glucose 115. Lactic acid 2.6. Magnesium 2.0. Liver profile unremarkable. Troponin was negative at less than 0.012 and proBNP was 2360. Influenza A, influenza B, RSV, and COVID PCR negative. CT chest with IV contrast completed showing increasing soft tissue density throughout the mediastinum encasing vessels and bronchi, a 1.4 cm paratracheal mass with subtle hypodense center may be a necrotic lymph node versus soft tissue mass, increasing lung findings suspicious for metastatic disease and increasing pericardial effusion. Patient admitted under our services with consultation to pulmonology and oncology. he was started on clindamycin Status post BAL on 04/11, significant necrotic tissue noted in the whole right upper lobe, related to his cancer, radiation treatment, similar changes noted in the left mainstem bronchus, carinal area. Cultures and cytology pending 04/14/2024 rapid response was called for respiratory distress. Patient desaturated to low 80s,was tachepneic with coughing spells, was placed on nasal cannula 15 L, then advance to Air, satting in mid 90s. His blood pressure remained stable. He was provided with his morning dose of Lasix 40 IV once, breathing treatment, 1 dose of Ativan 0.5 IV, patient noted he was panicking, no beds on 3 S. available, patient was transferred to the ICU as overflow. Chest x-ray during rapid response was done and corrected by me as below. I addressed patient's CODE STATUS again, explained the nature of resuscitation process, patient stated that he wants to remain full code at this time. We did discuss his significant comorbidities, chances of survival and meaningful recovery after resuscitation. 04/15: Patient was intubated overnight for respiratory distress, tachypnea, was started on propofol, required levo at 0.14. Bright red blood was noted per NG, small amount, morning Eliquis held. Pertinent Imaging: Chest x-ray showed ETT 1.5 from the teresa, right greater than left perihilar airspace opacity, worse on the right side, no pneumothorax. Subjective: Intubated and sedated Pertinent positives and negatives as discussed above, a complete review of systems was performed and all other systems are negative. General: N intubated, sedated, chronically ill-appearing Derm: Skin warm and dry, normal coloration for ethnicity. Head: Atraumatic, normocephalic and symmetric. Eyes: EOM's intact, no lid lag, and anicteric sclera Mouth: no lip lesions, mucus membranes moist, ETT, OG Cardiovascular: regular rate and rhythm with normal S1S2, no murmur, positive posterior tibial pulses bilaterally, and cap refill < 2 seconds. Lungs: Bilateral air entry, diffuse scattered rhonchi Abdominal: soft, nontender to palpation, no guarding, no appreciable organomegaly Ext: ROM intact. No gross muscle atrophy, 1+ pitting edema, no contractures. Neuro: Unable to assess, intubated and sedated Psych: Able to assess, intubated and sedated Lab work reviewed leukocytosis cytosis stable 19.0, hemoglobin 9.1, platelet count normal, pH on ABG 7.4, pCO2 39, pO2 159, sodium 134, normal potassium, creatinine 0.52, Assessment and Plan of Care: Acute hypoxic respiratory failure requiring intubation 3/2 COPD with acute exacerbation Metastatic squamous cell carcinoma of lung Concerns for possible pneumonia, recent bronchoscopy completed positive for MSSA -Pulmonology following -Continue vent management per ICU -Telemetry monitoring. -Continue breathing treatment -Steroids: Solu-Medrol 60 mg IVP daily -Urine Legionella negative. Sputum culture showing no growth. Blood culture negative showing no growth after 5 days. -Continue Clindamycin 450 mg every 6 hours per recommendations of pulmonolgy due to inability to completely rule out underlying infectious process. SOT 04/07 -Oncology following, plan to continue with third cycle of Gemzar once acutely recovered -BAL cultures and cytology from 04/11 negative -Continue sedation, wean off as tolerated -Continue D5 infusion, tolerated -Overall prognosis is poor -Hold IV Lasix 40 this morning Coffee-ground discharge per OG tube -Hold Eliquis, continue PPI Acute on chronic diastolic heart failure with mild exacerbation CAD status post stenting Paroxysmal atrial fibrillation Hypertension Hyperlipidemia -Hold Lasix 40 mg IVP daily. -Monitor vital signs and continue daily medication regimen with amiodarone 200 mg daily, hold Eliquis Eliquis 5 mg twice daily, continue atorvastatin 80 mg nightly, and metoprolol 12.5 mg twice daily, Severe protein calorie malnutrition -Protein 5.1 and albumin 2.6. Severe protein calorie malnutrition likely secondary to advanced squamous cell carcinoma of the lung with metastasis and decreased oral intake. -Patient started on protein supplements 3 times daily between meals and consult placed to dietitian. Nicotine dependence -Patient reported that he has cut back significantly on smoking and declined wanting nicotine patch at this time. CODE STATUS: Full code DVT prophylaxis: Eliquis Anticipated discharge date: tbd Anticipated discharge place: tbd Objective - Vital Signs Vital signs: Vital Signs Temp 97.8 F 04/15/24 04:00 Pulse 118 H 04/15/24 08:34 Resp 20 04/15/24 07:00 BP 100/59 04/15/24 07:00 Pulse Ox 100 04/15/24 07:00 FiO2 60 04/15/24 09:58 Intake & Output 04/14/24 04/15/24 04/15/24 18:59 06:59 18:59 Intake Total 1029.713 219.052 141.465 Output Total 710 800 45 Balance 319.713 -580.948 96.465 Weight 61 kg Intake: Intake, IV Titration 1029.713 219.052 141.465 Amount Dexmedetomidine/0.9% NaCl 28.086 92.796 (Pmx) 400 mcg In Empty Bag 1 bag @ 0.2 MCG/KG/HR 3.05 mls/hr IV .Q24H [facility] Rx#:[id number] Norepinephrine 4 mg In 1.627 74.680 105.475 Sodium Chloride 0.9% 250 ml @ 0.03 MCG/KG/MIN 6. 972 mls/hr IV .Q24H [facility] Rx#:[id number] Sodium Chloride 0.9% 1, 1000 000 ml @ 999 mls/hr IV . Q1H1M [facility] Rx#:[id number] propofoL 1,000 mg In 51.576 35.99 Empty Bag 1 bag @ 15 MCG/ KG/MIN 5.49 mls/hr IV . [id number] [facility] Rx#:[id number] Output: Urine 710 800 45 Other: Voiding Method External Catheter Indwelling Catheter - Labs CBC & Chem 7: 04/15/24 03:26 04/15/24 03:26 Labs: Abnormal Lab Results - Last 24 Hours (Table) 04/14/24 04/14/24 04/14/24 Range/Units 12:06 16:11 21:18 WBC (3.8-10.6) k/uL RBC (4.30-5.90) m/uL Hgb (13.0-17.5) gm/dL Hct (39.0-53.0) % MCHC (31.0-37.0) g/dL RDW (11.5-15.5) % Neutrophils # (1.3-7.7) k/uL Lymphocytes # (1.0-4.8) k/uL ABG pCO2 (35-45) mmHg ABG pO2 (83-108) mmHg ABG HCO3 (21-25) mmol/L ABG Total CO2 (19-24) mmol/L ABG O2 Saturation (94-97) % Hemoglobin (13.0-17.5) gm/dL Sodium (137-145) mmol/L Chloride (98-107) mmol/L Carbon Dioxide (22-30) mmol/L BUN (9-20) mg/dL Creatinine (0.66-1.25) mg/dL POC Glucose (mg/dL) 112 H 125 H 115 H (70-110) mg/dL Calcium (8.4-10.2) mg/dL 04/15/24 04/15/24 04/15/24 Range/Units 03:13 03:26 03:26 WBC 19.0 H (3.8-10.6) k/uL RBC 3.26 L (4.30-5.90) m/uL Hgb 9.1 L (13.0-17.5) gm/dL Hct 32.3 L (39.0-53.0) % MCHC 28.2 L (31.0-37.0) g/dL RDW 22.0 H (11.5-15.5) % Neutrophils # 18.4 H (1.3-7.7) k/uL Lymphocytes # 0.1 L (1.0-4.8) k/uL ABG pCO2 49 H (35-45) mmHg ABG pO2 159 H (83-108) mmHg ABG HCO3 31 H (21-25) mmol/L ABG Total CO2 32 H (19-24) mmol/L ABG O2 Saturation 100.0 H (94-97) % Hemoglobin 8.6 L (13.0-17.5) gm/dL Sodium 134 L (137-145) mmol/L Chloride 96 L (98-107) mmol/L Carbon Dioxide 32 H (22-30) mmol/L BUN 26 H (9-20) mg/dL Creatinine 0.52 L (0.66-1.25) mg/dL POC Glucose (mg/dL) (70-110) mg/dL Calcium 8.0 L (8.4-10.2) mg/dL Microbiology - Last 24 Hours (Table) 04/11/24 13:30 Gram Stain - Final Bronchoalviolar Lavage - Right Bronchial Washings Culture - Final
[2024-04-15 11:31] LABS: Glucose,Whole Blood 82 mg/dL (70-110)
--- NOTE | 2024-04-15 13:30 | P.PN ---
Subjective Progress Note Date: 04/15/24 Principal diagnosis: Acute on chronic hypoxic respiratory failure, multifactorial mostly related to his COPD exacerbation, pneumonia, and bronchogenic carcinoma. Patient is a 63-year-old male with past medical history significant for COPD, lung cancer, hypertension, hyperlipidemia, CAD with previous PCI/stents, ischemic cardiomyopathy, and atrial fibrillation anticoagulated on Eliquis. Patient is known to have metastatic non-small cell lung cancer. His oncologist is Dr. Hoyos. Treated in the past with chemo/radiation, and patient is currently on systemic therapy, 2 weeks on 1 week off. Of note, patient has had multiple recent hospitalizations, as well as, recent bronchoscopy with airway examination and BAL on January 23. Washing was positive for MSSA. More recently on 03/13/2024, patient was treated for right upper lobe pneumonia, possibly postobstructive, on an outpatient basis with a course of Levaquin by Dr. Kumar. Patient presents emergency department late last night with a chief complaint of shortness of breath. Associated productive cough with yellow sputum production. Workup in the emergency department including a chest x-ray showing worsening multifocal airspace disease particularly in the right middle/upper lung zones as well as left perihilar region. This likely represents disease progression, with possible superimposed infectious process. CBC: WBC count of 6.8, hemoglobin 9, platelets 157. CMP: Sodium 135, potassium 3.7, chloride 96, serum bicarb 28, BUN 17, creatinine 0.65, glucose 115. Lactic was 2.6 and is down to 1. Troponi n less than 0.012. NT proBNP 2360. EKG: Sinus tachycardia, rate 107 bpm, no acute ST segment elevations. Viral screen negative for influenza, RSV, COVID. Patient was placed on empiric antibiotics in the ED in the form of azithromycin and cefepime. Patient currently being evaluated in the emergency department. He is on room air. Nondistressed. He has been coughing up clear to yellow phlegm into a bottle. Denies sick contacts. Denies any fever/chills, hemoptysis, chest pain. Does report worsening lower extremity swelling. Appears the patient flipping in and out of atrial fibrillation with rapid ventricular response. He has known history of atrial fibrillation, and his cardiac medications are yet to be restarted. Denies chest pain, heart palpitations, lightheadedness/syncopal events, orthopnea, PND. Most recent available echocardiogram from 09/06/2023 demonstrating a preserved ejection fraction. Current most recent vital signs: Temperature 98.2 F, heart rate 90 bpm, blood pressure 103/78 mmHg, nontachypneic SpO2 reading 99% on room air. On 04/06/2024, the patient is being seen for a follow-up. Slightly improved compared to yesterday. Continues to have a cough and congestion in his chest. Sputum sample was given and the cultures are still pending for now. Remains to be bronchospastic and wheezy. No fever. No hemodynamic instability. No hemoptysis. The patient had a CAT scan of the chest yesterday and this was reviewed and it shows progression of his disease with increased soft tissue density throughout the mediastinum consistent with progression of his squamous cell carcinoma in addition to a cavitating suprahilar mass. He was receiving IV Gemzar on outpatient basis as palliative systemic chemotherapy. No other new complaints otherwise for now. Remains on DuoNeb. Remains on IV cefepime and Zithromax. He is also on IV Solu-Medrol 60 mg every 6 hours. No other significant events overnight. On 04/07/2024, the patient is being seen for a follow-up. Continues to have some cough and congestion although less compared to yesterday. The sputum sample is still pending for now. Noted the patient's procalcitonin level was not elevated and a pneumonia is felt to be less likely. His presentation is not related to COPD exacerbation and underlying lung cancer. The patient was receiving IV Gemzar regarding his lung cancer on outpatient basis. Feels well. No new complaints. Appetite is diminished. Currently on 2 L of oxygen by nasal cannu la. White cell count is at 5.4 with a hemoglobin of 7.7, BUN 16 with a creatinine 0.59 and sodium was 132. LFTs are normal. No other significant events overnight. Blood cultures have been negative. On 04/08/2024, the patient is being seen for a follow-up. The patient is currently on oxygen and at 2 L/min nasal cannula. Continues to have cough and congestion and is still producing thick mucus. The patient is currently on clindamycin. The patient is on DuoNeb nebulized treatments [id number]. The patient on Symbicort. The patient remains on IV Solu-Medrol 60 mg IV push every 6 hours. Sputum cultures have been negative. As mentioned, he is known to have underlying lung cancer, which is metastatic squamous cell carcinoma the patient has been receiving palliative chemotherapy with Gemzar. Blood work from today shows a white cell count of 7.8, hemoglobin 7.4 and platelet count of 257. BUN is 15 with a creatinine of 0.6. Sodium levels at 134. The patient is seen today April 09, 2024 in follow-up on the selective care unit. He is currently sitting up at the bedside. Awake and alert in no acute distress. Still quite dyspneic with minimal conversation. Dyspneic with minimal exertion. He is maintaining O2 saturations in the 90s on 3 L/min per nasal cannula. He is continued on DuoNeb and elations, Symbicort, Solu-Medrol. Antibiotics in the form of clindamycin. White count 8.4. Hemoglobin 7.5. Platelets 292. Sodium 134. Potassium 3.3. Bicarb 31. BUN 16. Creatinine 0.63. Glucose 135. He is anticoagulated with Eliquis. Remains on IV diuretics. Currently in a -1.8 L balance. The patient is seen today April 10, 2024 in follow-up on the selective care unit. He is currently resting in bed. Awake and alert in no acute distress. Continues with significant cough and congestion. Unable to clear his secretions. Is in the 90s on 4 L/min per nasal cannula. He is been afebrile. Hemodynamically stable. Sputum culture revealed no growth. Blood culture revealed no growth.. Hemoglobin 8.0. Platelets 319. Sodium 134. Potassium 3.9. Bicarb 35. BUN 12. Creatinine 0.54. Glucose 116. He remains on DuoNeb inhalations, Symbicort, Solu-Medrol. Remains on IV diuretics. Remains on antibiotics in the form of clindamycin. Anticoagulated with Eliquis. The patient is seen today April 11, 2024 in follow-up on the selective care unit. He is awake and alert in no acute distress. Continues with a loose congested cough. Plan is for bronchoscopy with BAL today with Dr. Kumar. He is maintaining O2 saturations in the 90s on 4 L/min per nasal cannula. He has been afebrile. Hemodynamically stable. White count 10.2. Hemoglobin 7.8. Platelets 305. Sodium 134. Potassium 3.9. Bicarb 36. BUN 18. Creatinine 0.54. Glucose 106. He is continued on DuoNeb and elations, Symbicort, Solu- Medrol. Remains on IV diuretics. Remains on clindamycin. Eliquis will be resumed postprocedure. Seen today on 04/12/2024, patient is a little better today compared to yesterday, nonetheless continues to cough and wheeze, continues to have shortness of breath, patient underwent a bronchoscopy and BAL of the right upper lobe yesterday, cultures from the BAL are pending. Patient remains on 3 L nasal cannula, O2 sats is 92%, he is hemodynamically stable, remains on clindamycin, and his Eliquis was resumed. Patient remains on Symbicort and Solu-Medrol. Patient was seen today and 04/14/2024, patient had to be transferred last night to the ICU mostly because of intermittent episodes of shortness of breath, coughing, wheezing, extremely agitated, and constant cough. Patient was placed on 50 L Airvo with O2 sat in the 85% range, however he is extremely restless and agitated and continuously coughing. After evaluating the patient, I recommended 1 mg of Ativan I also recommended a Precedex drip. Risks patient does not calm down, may have to consider intubation mechanical ventilation. However his overall prognosis extremely poor, and I am afraid once the patient is intubated his prognosis becomes even extremely worse. His WBC count today is 19.1 hemoglobin 8.7 electrolytes are normal renal profile is normal bicarb is 34 c hest x-ray continues to show significant airspace disease involving the right upper lobe and the right lower lobe and right midlung and to some extent the left perihilar area. Clearly the patient has significant airspace disease but mostly the right upper lobe where his initial cancer was present and he had radiation treatment to that right upper lobe. Patient was seen today on 04/15/2024, patient remains in the ICU, however yesterday his clinical condition deteriorated, patient continued to have cough shortness of breath, he was desaturated, and he was not responding to Precedex anymore. Patient was in quite a bit of respiratory distress, hence I recommended immediate intubation and mechanical ventilation. Patient is now intubated mechanically ventilated on assist-control rate of 20 tidal volume 400 FiO2 100% and PEEP of 5 ABG showed a pO2 of 159 pCO2 49 pH of 7.40 FiO2 was cut down to 60% PEEP at 5. Chest x-ray this morning showed right greater than left perihilar airspace opacities may have worsened in comparison to previous chest x-ray. No pleural effusion and no pneumothorax. Patient is requiring norepinephrine at 0.12 mcg/kg/min he is also on propofol at 50 mcg/kg/min. He has a urine output of 35 cc/h. Repeat sputum cultures are pending, patient had a recent bronchoscopy and BAL, cultures came back negative, and the patient has been on antibiotics all along. Patient has leukocytosis with WC count of 19 hemoglobin 9.1. Basic metabolic profile is normal BUN is 26 creatinine 0.52 bicarb is 32. Objective - Vital Signs Vital signs: Vital Signs Temp 98.1 F 04/15/24 08:00 Pulse 113 H 04/15/24 12:35 Resp 17 04/15/24 11:00 BP 96/61 04/15/24 11:00 Pulse Ox 97 04/15/24 11:00 FiO2 60 04/15/24 12:00 Intake & Output 04/14/24 04/15/24 04/15/24 18:59 06:59 18:59 Intake Total 1029.713 219.052 283.693 Output Total 710 800 210 Balance 319.713 -580.948 73.693 Weight 61 kg Intake: IV 6 Invasive Line 5 6 Intake, IV Titration 1029.713 219.052 277.693 Amount Dexmedetomidine/0.9% NaCl 28.086 92.796 (Pmx) 400 mcg In Empty Bag 1 bag @ 0.2 MCG/KG/HR 3.05 mls/hr IV .Q24H [facility] Rx#:[id number] Norepinephrine 4 mg In 1.627 74.680 177.693 Sodium Chloride 0.9% 250 ml @ 0.03 MCG/KG/MIN 6. 972 mls/hr IV .Q24H [facility] Rx#:[id number] Sodium Chloride 0.9% 1, 1000 000 ml @ 999 mls/hr IV . Q1H1M [facility] Rx#:[id number] propofoL 1,000 mg In 51.576 100.00 Empty Bag 1 bag @ 15 MCG/ KG/MIN 5.49 mls/hr IV . [id number] [facility] Rx#:[id number] Output: Urine 710 800 210 Other: Voiding Method External Catheter Indwelling Catheter Indwelling Catheter ABP, PAP, CO, CI - Last Documented Arterial Blood Pressure 90/48 - Exam GENERAL EXAM: Revealed 63-year-old white male intubated sedated mechanically ve ntilated HEAD: Normocephalic. Endotracheal tube and orogastric tube are intact EYES: Normal reaction of pupils, equal size. NOSE: Clear with pink turbinates. THROAT: No erythema or exudates. NECK: No masses, no JVD. CHEST: No chest wall deformity. LUNGS: Rhonchi noted bilaterally. CVS: S1 and S2 normal with no audible murmur, regular rhythm. ABDOMEN: No hepatosplenomegaly, normal bowel sounds, no guarding or rigidity. SKIN: No rashes CENTRAL NERVOUS SYSTEM: Could not assess patient is sedated on propofol EXTREMITIES: Trace of edema no clubbing no cyanosis - Labs CBC & Chem 7: 04/15/24 03:26 04/15/24 03:26 Labs: Abnormal Lab Results - Last 24 Hours (Table) 04/14/24 04/14/24 04/15/24 Range/Units 16:11 21:18 03:13 WBC (3.8-10.6) k/uL RBC (4.30-5.90) m/uL Hgb (13.0-17.5) gm/dL Hct (39.0-53.0) % MCHC (31.0-37.0) g/dL RDW (11.5-15.5) % Neutrophils # (1.3-7.7) k/uL Lymphocytes # (1.0-4.8) k/uL ABG pCO2 49 H (35-45) mmHg ABG pO2 159 H (83-108) mmHg ABG HCO3 31 H (21-25) mmol/L ABG Total CO2 32 H (19-24) mmol/L ABG O2 Saturation 100.0 H (94-97) % Hemoglobin 8.6 L (13.0-17.5) gm/dL Sodium (137-145) mmol/L Chloride (98-107) mmol/L Carbon Dioxide (22-30) mmol/L BUN (9-20) mg/dL Creatinine (0.66-1.25) mg/dL POC Glucose (mg/dL) 125 H 115 H (70-110) mg/dL Calcium (8.4-10.2) mg/dL 04/15/24 04/15/24 Range/Units 03:26 03:26 WBC 19.0 H (3.8-10.6) k/uL RBC 3.26 L (4.30-5.90) m/uL Hgb 9.1 L (13.0-17.5) gm/dL Hct 32.3 L (39.0-53.0) % MCHC 28.2 L (31.0-37.0) g/dL RDW 22.0 H (11.5-15.5) % Neutrophils # 18.4 H (1.3-7.7) k/uL Lymphocytes # 0.1 L (1.0-4.8) k/uL ABG pCO2 (35-45) mmHg ABG pO2 (83-108) mmHg ABG HCO3 (21-25) mmol/L ABG Total CO2 (19-24) mmol/L ABG O2 Saturation (94-97) % Hemoglobin (13.0-17.5) gm/dL Sodium 134 L (137-145) mmol/L Chloride 96 L (98-107) mmol/L Carbon Dioxide 32 H (22-30) mmol/L BUN 26 H (9-20) mg/dL Creatinine 0.52 L (0.66-1.25) mg/dL POC Glucose (mg/dL) (70-110) mg/dL Calcium 8.0 L (8.4-10.2) mg/dL Microbiology - Last 24 Hours (Table) 04/11/24 13:30 Gram Stain - Final Bronchoalviolar Lavage - Right Bronchial Washings Culture - Final Assessment and Plan Assessment: Impression: Acute on chronic shortness of breath, chest x-ray showing worsening multifocal airspace disease particularly in the right middle/upper lung zones, as well as, left perihilar region. This likely represents disease progression, superimposed infectious process is not excluded. Status post bronchoscopy on 04/11/2024, cultures came back nondiagnostic 04/14/2024, and he will remain intubated today 04/15/2024. No plans to wean or extubate anytime soon. Hypotension secondary to sepsis and septic shock Metastatic squamous cell carcinoma of the lung, diagnosed initially 2020. Patient previously treated with chemo/radiation. Patient is restarted on systemic therapy and the patient is currently on IV Gemzar. Follow-up CAT scan of the chest done on 04/05/2024 is consistent with disease progression regarding his squamous cell carcinoma as noted. Superimposed pneumonia is felt to be less likely. Moderate chronic obstructive pulmonary disease, with an FEV1 51% of predicted Paroxysmal atrial fibrillation, transient bouts of RVR on monitor Bilateral lower extremity edema Chronic anemia, hemoglobin stable History of hypertension. History of hyperlipidemia. History of CAD with previous PCI/stent. History of ischemic cardiomyopathy, most recent available echocardiogram from August, showing improvement in left ventricular ejection fraction of 55 to 60% Chronic and ongoing tobacco dependence. Recommendation: Continue ventilatory support Continue propofol/sedation Continue hemodynamic support/norepinephrine, titrate accordingly Continue antibiotics and bronchodilators Hold on diuretics if the blood pressure is marginal Repeat sputum cultures GI and DVT prophylaxis Previous cultures from BAL were nondiagnostic Continue to monitor in the ICU Patient is relatively critically ill Long-term prognosis extremely poor and guarded I have a feeling the patient will eventually require tracheostomy and PEG tube placement, as he will be extremely difficult to wean and extubate Critical care time is 35 minutes not including the time spent on procedures Will continue to follow Time with Patient: Greater than 30
[2024-04-15 18:16] LABS: Glucose,Whole Blood 93 mg/dL (70-110)
[2024-04-16 01:25] LABS: Glucose,Whole Blood 98 mg/dL (70-110)
[2024-04-16] MEDS: FUROSEMIDE 10 MG/ML 2 ML VIAL IV ONE (02:00)
[2024-04-16 05:06] LABS: Glucose,Whole Blood 95 mg/dL (70-110)
[2024-04-16 05:20] LABS: Anisocytosis Moderate; Basophils % (A) 0 %; Eosinophils % (A) 0 %; HCT 28.4 % (39.0-53.0); HGB 8.6 gm/dL (13.0-17.5); Hypochromasia Marked; Lymphocytes # (A) 0.1 k/uL (1.0-4.8); Lymphocytes % (A) 1 %; MCH 29.5 pg (25.0-35.0); MCHC 30.2 g/dL (31.0-37.0); MCV 97.7 fL (80.0-100.0); Macrocytosis Moderate; Mean Platelet Volume 9.1; Monocytes # (A) 0.4 k/uL (0-1.0); Monocytes % (A) 2 %; Neutrophils # (A) 17.8 k/uL (1.3-7.7); Neutrophils % (A) 97 %; Platelet Count 264 k/uL (150-450); Poikilocytosis Moderate; RBC 2.91 m/uL (4.30-5.90); RDW 22.1 % (11.5-15.5); WBC 18.4 k/uL (3.8-10.6)
[2024-04-16 05:41] LABS: ABG Base Excess 6.8 mmol/L; ABG HCO3 31 mmol/L (21-25); ABG Oxygen Saturation 98.9 % (94-97); ABG PCO2 39 mmHg (35-45); ABG PH 7.51 (7.35-7.45); ABG PO2 100 mmHg (83-108); ABG TCO2 32 mmol/L (19-24)
[2024-04-16 05:44] LABS: Allen Test Performed? No
[2024-04-16 07:26] LABS: African American GFR (CKD) >90 (>60 ml/min/1.73 sqM); Anion Gap 6 mmol/L; Blood Urea Nitrogen 20 mg/dL (9-20); Calcium 8.2 mg/dL (8.4-10.2); Carbon Dioxide 31 mmol/L (22-30); Chloride 97 mmol/L (98-107); Glucose 90 mg/dL (74-99); Non-African American GFR(CKD) >90 (>60 ml/min/1.73 sqM); Potassium 3.5 mmol/L (3.5-5.1); Sodium 134 mmol/L (137-145)
--- NOTE | 2024-04-16 07:59 | XR ---
EXAMINATION TYPE: XR chest 1V portable DATE OF EXAM: 04/16/2024 5:23 AM COMPARISON: Multiple radiographs, with the most recent on 04/14/2024. TECHNIQUE: XR chest 1V portable Portable AP radiograph of the chest. CLINICAL INDICATION:Male, 63 years old with history of Tube placement; FINDINGS: Lungs/Pleura: No pleural effusion or pneumothorax. Biapical pleural parenchymal scarring with right g reater the left. Similar patchy airspace opacities throughout the right lung. Similar left perihilar opacity. Pulmonary vascularity: Unremarkable. Heart/mediastinum: Cardiomediastinal silhouette is unremarkable. Musculoskeletal: No acute osseous pathology. Other findings: None Lines/Tubes: Endotracheal tube with distal tip 4.4 cm above the teresa Nasogastric tube with its distal tip and side-port projecting under the diaphragm and projecting over the gastric lumen. IMPRESSION: 1. Similar multifocal airspace opacities/consolidation with right greater than left. 2. Stable support tubes. [facility], , 04/16/2024 7:57 AM
--- NOTE | 2024-04-16 08:17 | OP ---
OPERATIVE REPORT DATE OF SERVICE : PROCEDURE PERFORMED: Placement of a left radial arterial line. PREOPERATIVE DIAGNOSES: Acute hypoxic respiratory failure and hypotension. POSTOPERATIVE DIAGNOSES: Acute hypoxic respiratory failure and hypotension. ANESTHESIA USED: None deployed. PROCEDURE: Left wrist was prepared in a sterile fashion. Drapes were applied. The radial artery was palpated, easily cannulated, a guidewire was placed. A Cook's catheter was inserted over the guidewire, the guidewire was removed. Good blood flow, good waveform, no complications. Line was secured using 3.0 silk sutures. MMODL / IJN: [id number] /
--- NOTE | 2024-04-16 08:17 | OP ---
OPERATIVE REPORT DATE OF SERVICE : PROCEDURE PERFORMED: Placement of a right femoral triple-lumen catheter. PREOPERATIVE DIAGNOSES: Acute hypoxic respiratory failure and hypotension. POSTOPERATIVE DIAGNOSES: Acute hypoxic respiratory failure and hypotension. ANESTHESIA USED: 2 mL of 1% lidocaine. PROCEDURE: The patient was placed in a supine position, the right groin was prepared in a sterile fashion. Drapes were applied. The area was locally anesthetized with lidocaine. Then, the right femoral vein was easily cannulated, a guidewire was placed, area around the guidewire was dilated, triple-lumen catheter inserted over the guidewire, and guidewire was removed. Good blood flow noted in the 3 different ports of the triple- lumen catheter; line was secured using 3.0 silk sutures. MMODL / IJN: [id number] /
[2024-04-16] MEDS ORDERED: Potassium Replacement Protocol 1 EACH MISC MISCELLANE PRN (09:02)
[2024-04-16] MEDS: POTASSIUM BICARBONATE/CIT AC 20 MEQ TABLET.EFF NG-TUBE SCH (09:19)
--- NOTE | 2024-04-16 11:20 | P.PN ---
Subjective Progress Note Date: 04/16/24 Hospital Course: Patient is a pleasant 63-year-old male with a past medical history of squamous cell carcinoma of lung currently undergoing chemotherapy, COPD not home oxygen dependent, CAD status post stenting, ischemic cardiomyopathy, paroxysmal atrial fibrillation on anticoagulation with Eliquis, chronic diastolic heart failure, hypertension, hyperlipidemia, and nicotine dependence.. He reports following with crisis intervention counselor/oncologist Dr. Hoyos and states last chemotherapy treatment was 1 week ago tomorrow. He presented to the emergency department on 04/04/2024 secondary to reports of shortness of breath accompanied by worsening cough with production of yellowish-brown sputum. Upon arrival to our facility, patient underwent evaluation in the emergency department. Vital signs upon arrival showing blood pressure 119/82, heart rate 111, respiratory rate 22, temp 98.2 F, and SpO2 of 99% on room air. EKG completed showing sinus tachycardia at 107 bpm with repeat EKG showing atrial fibrillation with RVR at 133 bpm T wave inversion in lateral leads I, aVL, V5 and V6.. Chest x-ray showing moderate amount of airspace opacities in bilateral lungs concentrated in the right middle/upper lung zones and left perihilar regions suggestive of pneumonia. Labs completed and reviewed. CBC showing normocytic anemia with hemoglobin of 9.0 chronic and at baseline. Coagulation profile normal findings. BMP showing hypochloremic hyponatremia with sodium of 135 and chloride of 96. Blood glucose 115. Lactic acid 2.6. Magnesium 2.0. Liver profile unremarkable. Troponin was negative at less than 0.012 and proBNP was 2360. Influenza A, influenza B, RSV, and COVID PCR negative. CT chest with IV contrast completed showing increasing soft tissue density throughout the mediastinum encasing vessels and bronchi, a 1.4 cm paratracheal mass with subtle hypodense center may be a necrotic lymph node versus soft tissue mass, increasing lung findings suspicious for metastatic disease and increasing pericardial effusion. Patient admitted under our services with consultation to pulmonology and oncology. he was started on clindamycin Status post BAL on 04/11, significant necrotic tissue noted in the whole right upper lobe, related to his cancer, radiation treatment, similar changes noted in the left mainstem bronchus, carinal area. Cultures and cytology pending 04/14/2024 rapid response was called for respiratory distress. Patient desaturated to low 80s,was tachepneic with coughing spells, was placed on nasal cannula 15 L, then advance to Air, satting in mid 90s. His blood pressure remained stable. He was provided with his morning dose of Lasix 40 IV once, breathing treatment, 1 dose of Ativan 0.5 IV, patient noted he was panicking, no beds on 3 S. available, patient was transferred to the ICU as overflow. Chest x-ray during rapid response was done and corrected by me as below. I addressed patient's CODE STATUS again, explained the nature of resuscitation process, patient stated that he wants to remain full code at this time. We did discuss his significant comorbidities, chances of survival and meaningful recovery after resuscitation. 04/15: Patient was intubated overnight for respiratory distress, tachypnea, was started on propofol, required levo at 0.14. Bright red blood was noted per NG, small amount, morning Eliquis held. Blood stopped, patient was noted to have stable hemoglobin and bilious discharge from OG tube, resumed Eliquis. 04/16 was provided with additional dose of IV Lasix for decreased urine output. Chest x-ray showed no significant changes, ETT 4.4 cm above the teresa Subjective: Intubated and sedated General: N intubated, sedated, chronically ill-appearing Derm: Skin warm and dry, normal coloration for ethnicity. Head: Atraumatic, normocephalic and symmetric. Eyes: EOM's intact, no lid lag, and anicteric sclera Mouth: no lip lesions, mucus membranes moist, ETT, OG Cardiovascular: regular rate and rhythm with normal S1S2, no murmur, positive posterior tibial pulses bilaterally, and cap refill < 2 seconds. Lungs: Bilateral air entry, diffuse scattered rhonchi Abdominal: soft, nontender to palpation, no guarding, no appreciable organomegaly Ext: ROM intact. No gross muscle atrophy, 1+ pitting edema, no contractures. Neuro: Unable to assess, intubated and sedated Psych: unAble to assess, intubated and sedated Lab work reviewed WBC 18.4, hemoglobin 8.6, platelet count 264, ABG with pH of 7.51, pCO2 39 and pO2 100, sodium 135, potassium 3.5, creatinine 0.45, BUN 20, glucose 95, calcium 8.3 Assessment and Plan of Care: Acute hypoxic respiratory failure requiring intubation 3/2 COPD with acute exacerbation Metastatic squamous cell carcinoma of lung Concerns for possible pneumonia, recent bronchoscopy completed positive for MSSA -Pulmonology following -Continue vent management per ICU -Telemetry monitoring. -Continue breathing treatment -Steroids: Solu-Medrol 60 mg IVP daily -Urine Legionella negative. Sputum culture showing no growth. Blood culture negative showing no growth after 5 days. -Continue Clindamycin 450 mg every 6 hours per recommendations of pulmonolgy due to inability to completely rule out underlying infectious process. SOT 04/07 -Oncology following, plan to continue with third cycle of Gemzar once acutely recovered -BAL cultures and cytology from 04/11 negative -Continue sedation, wean off as tolerated -Continue D5 infusion, tolerated -Overall prognosis is poor -Hold IV Lasix 40 this morning Coffee-ground discharge per OG tube, resolved -Hemoglobin stable, continue Eliquis and PPIs Acute on chronic diastolic heart failure with mild exacerbation CAD status post stenting Paroxysmal atrial fibrillation Hypertension Hyperlipidemia -Continue Lasix 40 mg IVP daily., BP improving, decrease dose of levo, was noted to have decreased urine output and provided with 1 dose of IV Lasix overnight 04/16 -Monitor vital signs and continue daily medication regimen with amiodarone 200 mg daily, continue Eliquis 5 mg twice daily, continue atorvastatin 80 mg nightly, and metoprolol 12.5 mg twice daily, Severe protein calorie malnutrition -Protein 5.1 and albumin 2.6. Severe protein calorie malnutrition likely second maxx to advanced squamous cell carcinoma of the lung with metastasis and decreased oral intake. -Patient started on protein supplements 3 times daily between meals and consult placed to dietitian. Nicotine dependence -Patient reported that he has cut back significantly on smoking and declined wanting nicotine patch at this time. CODE STATUS: Full code DVT prophylaxis: Eliquis Anticipated discharge date: tbd Anticipated discharge place: tbd Objective - Vital Signs Vital signs: Vital Signs Temp 98.6 F 04/16/24 08:00 Pulse 102 H 04/16/24 11:00 Resp 32 H 04/16/24 11:00 BP 91/60 04/16/24 11:00 Pulse Ox 95 04/16/24 11:00 FiO2 60 04/16/24 10:17 Intake & Output 04/15/24 04/16/24 04/16/24 18:59 06:59 18:59 Intake Total 561.928 543.700 288.840 Output Total 710 1170 680 Balance -148.072 -626.300 -391.160 Weight 60 kg Intake: IV 9 119 102 .9 KVO 110 90 0.9 A-line 12 Invasive Line 5 9 9 Intake, IV Titration 552.928 364.700 126.840 Amount Norepinephrine 4 mg In 356.182 219.682 66.084 Sodium Chloride 0.9% 250 ml @ 0.03 MCG/KG/MIN 6. 972 mls/hr IV .Q24H [facility] Rx#:[id number] propofoL 1,000 mg In 196.746 145.018 60.756 Empty Bag 1 bag @ 15 MCG/ KG/MIN 5.49 mls/hr IV . [id number] [facility] Rx#:[id number] Other 60 60 Output: Urine 710 1170 680 Other: Voiding Method Indwelling Catheter Indwelling Catheter Indwelling Catheter # Bowel Movements 1 1 ABP, PAP, CO, CI - Last Documented Arterial Blood Pressure 113/59 - Labs CBC & Chem 7: 04/16/24 05:02 04/16/24 05:02 Labs: Abnormal Lab Results - Last 24 Hours (Table) 04/16/24 04/16/24 04/16/24 Range/Units 04:18 05:02 05:02 WBC 18.4 H (3.8-10.6) k/uL RBC 2.91 L (4.30-5.90) m/uL Hgb 8.6 L (13.0-17.5) gm/dL Hct 28.4 L (39.0-53.0) % MCHC 30.2 L (31.0-37.0) g/dL RDW 22.1 H (11.5-15.5) % Neutrophils # 17.8 H (1.3-7.7) k/uL Lymphocytes # 0.1 L (1.0-4.8) k/uL ABG pH 7.51 H (7.35-7.45) ABG HCO3 31 H (21-25) mmol/L ABG Total CO2 32 H (19-24) mmol/L ABG O2 Saturation 98.9 H (94-97) % Hemoglobin 8.6 L (13.0-17.5) gm/dL Sodium 134 L (137-145) mmol/L Chloride 97 L (98-107) mmol/L Carbon Dioxide 31 H (22-30) mmol/L Creatinine 0.45 L (0.66-1.25) mg/dL Calcium 8.2 L (8.4-10.2) mg/dL Microbiology - Last 24 Hours (Table) 04/15/24 12:35 Gram Stain - Preliminary Sputum
[2024-04-16 12:19] LABS: Glucose,Whole Blood 102 mg/dL (70-110)
--- NOTE | 2024-04-16 12:28 | P.PN ---
Subjective Progress Note Date: 04/16/24 Patient is a 63-year-old male with past medical history significant for COPD, lung cancer, hypertension, hyperlipidemia, CAD with previous PCI/stents, ischemic cardiomyopathy, and atrial fibrillation anticoagulated on Eliquis. Patient is known to have metastatic non-small cell lung cancer. His oncologist is Dr. Hoyos. Treated in the past with chemo/radiation, and patient is currently on systemic therapy, 2 weeks on 1 week off. Of note, patient has had multiple recent hospitalizations, as well as, recent bronchoscopy with airway examination and BAL on January 23. Washing was positive for MSSA. More recently on 03/13/2024, patient was treated for right upper lobe pneumonia, possibly postobstructive, on an outpatient basis with a course of Levaquin by Dr. Kumar. Patient presents emergency department late last night with a chief complaint of shortness of breath. Associated productive cough with yellow sputum production. Workup in the emergency department including a chest x-ray showing worsening multifocal airspace disease particularly in the right middle/upper lung zones as well as left perihilar region. This likely represents disease progression, with possible superimposed infectious process. CBC: WBC count of 6.8, hemoglobin 9, platelets 157. CMP: Sodium 135, potassium 3.7, chloride 96, serum bicarb 28, BUN 17, creatinine 0.65, glucose 115. Lactic was 2.6 and is down to 1. Troponin less than 0.012. NT proBNP 2360. EKG: Sinus tachycardia, rate 107 bpm, no acute ST segment elevations. Viral screen negative for influenza, RSV, COVID. Patient was placed on empiric antibiotics in the ED in the form of azithromycin and cefepime. Patient currently being evaluated in the emergency department. He is on room air. Nondistressed. He has been coughing up clear to yellow phlegm into a bottle. Denies sick contacts. Denies any fever/chills, hemoptysis, chest pain. Does report worsening lower extremity swelling. Appears the patient flipping in and out of atrial fibrillation with rapid ventricular response. He has known history of atrial fibrillation, and his ca rdiac medications are yet to be restarted. Denies chest pain, heart palpitations, lightheadedness/syncopal events, orthopnea, PND. Most recent available echocardiogram from 09/06/2023 demonstrating a preserved ejection fraction. Current most recent vital signs: Temperature 98.2 F, heart rate 90 bpm, blood pressure 103/78 mmHg, nontachypneic SpO2 reading 99% on room air. On 04/06/2024, the patient is being seen for a follow-up. Slightly improved compared to yesterday. Continues to have a cough and congestion in his chest. Sputum sample was given and the cultures are still pending for now. Remains to be bronchospastic and wheezy. No fever. No hemodynamic instability. No hemoptysis. The patient had a CAT scan of the chest yesterday and this was reviewed and it shows progression of his disease with increased soft tissue density throughout the mediastinum consistent with progression of his squamous cell carcinoma in addition to a cavitating suprahilar mass. He was receiving IV Gemzar on outpatient basis as palliative systemic chemotherapy. No other new complaints otherwise for now. Remains on DuoNeb. Remains on IV cefepime and Zithromax. He is also on IV Solu-Medrol 60 mg every 6 hours. No other significant events overnight. On 04/07/2024, the patient is being seen for a follow-up. Continues to have some cough and congestion although less compared to yesterday. The sputum sample is still pending for now. Noted the patient's procalcitonin level was not elevated and a pneumonia is felt to be less likely. His presentation is not related to COPD exacerbation and underlying lung cancer. The patient was receiving IV Gemzar regarding his lung cancer on outpatient basis. Feels well. No new complaints. Appetite is diminished. Currently on 2 L of oxygen by nasal cannula. White cell count is at 5.4 with a hemoglobin of 7.7, BUN 16 with a creatinine 0.59 and sodium was 132. LFTs are normal. No other significant events overnight. Blood cultures have been negative. On 04/08/2024, the patient is being seen for a follow-up. The patient is currently on oxygen and at 2 L/min nasal cannula. Continues to have cough and congestion and is still producing thick mucus. The patient is currently on clindamycin. The patient is on DuoNeb nebulized treatments [id number]. The patient on Symbicort. The patient remains on IV Solu-Medrol 60 mg IV push e very 6 hours. Sputum cultures have been negative. As mentioned, he is known to have underlying lung cancer, which is metastatic squamous cell carcinoma the patient has been receiving palliative chemotherapy with Gemzar. Blood work from today shows a white cell count of 7.8, hemoglobin 7.4 and platelet count of 257. BUN is 15 with a creatinine of 0.6. Sodium levels at 134. The patient is seen today April 09, 2024 in follow-up on the selective care unit. He is currently sitting up at the bedside. Awake and alert in no acute distress. Still quite dyspneic with minimal conversation. Dyspneic with minimal exertion. He is maintaining O2 saturations in the 90s on 3 L/min per nasal cannula. He is continued on DuoNeb and elations, Symbicort, Solu-Medrol. Antibiotics in the form of clindamycin. White count 8.4. Hemoglobin 7.5. Platelets 292. Sodium 134. Potassium 3.3. Bicarb 31. BUN 16. Creatinine 0.63. Glucose 135. He is anticoagulated with Eliquis. Remains on IV diur etics. Currently in a -1.8 L balance. The patient is seen today April 10, 2024 in follow-up on the selective care unit. He is currently resting in bed. Awake and alert in no acute distress. Continues with significant cough and congestion. Unable to clear his secretions. Is in the 90s on 4 L/min per nasal cannula. He is been afebrile. Hemodynamically stable. Sputum culture revealed no growth. Blood culture revealed no growth.. Hemoglobin 8.0. Platelets 319. Sodium 134. Potassium 3.9. Bicarb 35. BUN 12. Creatinine 0.54. Glucose 116. He remains on DuoNeb inhalations, Symbicort, Solu-Medrol. Remains on IV diuretics. Remains on antibiotics in the form of clindamycin. Anticoagulated with Eliquis. The patient is seen today April 11, 2024 in follow-up on the selective care unit. He is awake and alert in no acute distress. Continues with a loose congested cough. Plan is for bronchoscopy with BAL today with Dr. Kumar. He is maintaining O2 saturations in the 90s on 4 L/min per nasal cannula. He has been afebrile. Hemodynamically stable. White count 10.2. Hemoglobin 7.8. Platelets 305. Sodium 134. Potassium 3.9. Bicarb 36. BUN 18. Creatinine 0.54. Glucose 106. He is continued on DuoNeb and elations, Symbicort, Solu- Medrol. Remains on IV diuretics. Remains on clindamycin. Eliquis will be resumed postprocedure. The patient is seen today April 13, 2024 in follow-up on the regular medical floor. He was transferred off the selective care unit yesterday. He is sitting up in bed. Awake and alert in no acute distress. Maintaining good O2 saturations in the 90s on 4 L/min per nasal cannula. He is afebrile. Hemodynamically stable. Sputum culture revealed no growth. Blood culture revealed no growth. Bronchial wash cultures revealed no growth. White count 17.0. Hemoglobin 8.5. Platelets 350. Sodium 133. Potassium 4.0. Bicarb 32. BUN 23. Creatinine 0.37. Glucose 158. He is continued on DuoNeb inhalations, Symbicort, Solu-Medrol. Remains on IV diuretics. Remains anticoagulated with Eliquis. Patient was seen today and 04/14/2024, patient had to be transferred last night to the ICU mostly because of intermittent episodes of shortness of breath, coughing, wheezing, extremely agitated, and constant cough. Patient was placed on 50 L Airvo with O2 sat in the 85% range, however he is extremely restless and agitated and continuously coughing. After evaluating the patient, I recommended 1 mg of Ativan I also recommended a Precedex drip. Risks patient does not calm down, may have to consider intubation mechanical ventilation. However his overall prognosis extremely poor, and I am afraid once the patient is intubated his prognosis becomes even extremely worse. His WBC count today is 19.1 hemoglobin 8.7 electrolytes are normal renal profile is normal bicarb is 34 chest x-ray continues to show significant airspace disease involving the right upper lobe and the right lower lobe and right midlung and to some extent the left perihilar area. Clearly the patient has significant airspace disease but mostly the right upper lobe where his initial cancer was present and he had radiation treatment to that right upper lobe. Patient was seen today on 04/15/2024, patient remains in the ICU, however yesterday his clinical condition deteriorated, patient continued to have cough shortness of breath, he was desaturated, and he was not responding to Precedex anymore. Patient was in quite a bit of respiratory distress, hence I recommended immediate intubation and mechanical ventilation. Patient is now intubated mechanically ventilated on assist-control rate of 20 tidal volume 400 FiO2 100% and PEEP of 5 ABG showed a pO2 of 159 pCO2 49 pH of 7.40 FiO2 was cut down to 60% PEEP at 5. Chest x-ray this morning showed right greater than left perihilar airspace opacities may have worsened in comparison to previous chest x-ray. No pleural effusion and no pneumothorax. Patient is requiring norepinephrine at 0.12 mcg/kg/min he is also on propofol at 50 mcg/kg/min. He has a urine output of 35 cc/h. Repeat sputum cultures are pending, patient had a recent bronchoscopy and BAL, cultures came back negative, and the patient has been on antibiotics all along. Patient has leukocytosis with WC count of 19 he moglobin 9.1. Basic metabolic profile is normal BUN is 26 creatinine 0.52 bicarb is 32. The patient is seen today April 16, 2024 in follow-up in the intensive care unit. He remains intubated on the mechanical ventilator. Currently on assist-control mode at a rate of 20, tidal volume 400, FiO2 60% and a PEEP of 5. Morning blood gases revealed a PaO2 of 100, pCO2 39 and a pH of 7.51. He remains sedated on propofol at 40 mcg/kg/min. He is requiring norepinephrine at 0.09 mcg/kg/min. Chest x-ray shows similar multifocal airspace opacities/consolidation with right greater than left. Sputum cultures revealed no growth. Bronchoalveolar lavage cultures revealed no growth. Blood cultures revealed no growth. Follow-up sputum culture pending. White count 18.4. Hemoglobin 8.6. Platelets 264. Sodium 134. Potassium 3.5. Bicarb 31. BUN 20. Creatinine 0.45. Glucose 90. He is continued on DuoNeb inhalations, Symbicort, Solu-Medrol. Remains on IV Lasix. Anticoagulated with Eliquis. Objective - Vital Signs Vital signs: Vital Signs Temp 98.6 F 04/16/24 08:00 Pulse 102 H 04/16/24 11:00 Resp 32 H 04/16/24 11:00 BP 91/60 04/16/24 11:00 Pulse Ox 95 04/16/24 11:00 FiO2 60 04/16/24 10:17 Intake & Output 04/15/24 04/16/24 04/16/24 18:59 06:59 18:59 Intake Total 561.928 543.700 288.840 Output Total 710 1170 680 Balance -148.072 -626.300 -391.160 Weight 60 kg Intake: IV 9 119 102 .9 KVO 110 90 0.9 A-line 12 Invasive Line 5 9 9 Intake, IV Titration 552.928 364.700 126.840 Amount Norepinephrine 4 mg In 356.182 219.682 66.084 Sodium Chloride 0.9% 250 ml @ 0.03 MCG/KG/MIN 6. 972 mls/hr IV .Q24H [facility] Rx#:[id number] propofoL 1,000 mg In 196.746 145.018 60.756 Empty Bag 1 bag @ 15 MCG/ KG/MIN 5.49 mls/hr IV . [id number] [facility] Rx#:[id number] Other 60 60 Output: Urine 710 1170 680 Other: Voiding Method Indwelling Catheter Indwelling Catheter Indwelling Catheter # Bowel Movements 1 1 ABP, PAP, CO, CI - Last Documented Arterial Blood Pressure 113/59 - Exam GENERAL EXAM: Intubated, sedated thin 63-year-old male patient, on 60% FiO2 and a PEEP of 5 via the mechanical ventilator, in no apparent distress. HEAD: Normocephalic. EYES: Normal reaction of pupils, equal size. NOSE: Clear with pink turbinates. THROAT: No erythema or exudates. NECK: No masses, no JVD. CHEST: No chest wall deformity. LUNGS: Equal air entry with bilateral scattered rhonchi more so on the right lung. CVS: S1 and S2 normal with no audible murmur, regular rhythm. ABDOMEN: No hepatosplenomegaly, normal bowel sounds, no guarding or rigidity. SPINE: No scoliosis or deformity SKIN: No rashes CENTRAL NERVOUS SYSTEM: Sedated, tone is normal in all 4 extremities. EXTREMITIES: There is 1+ peripheral edema. No clubbing, no cyanosis. Peripheral pulses are intact. - Labs CBC & Chem 7: 04/16/24 05:02 04/16/24 05:02 Labs: Abnormal Lab Results - Last 24 Hours (Table) 04/16/24 04/16/24 04/16/24 Range/Units 04:18 05:02 05:02 WBC 18.4 H (3.8-10.6) k/uL RBC 2.91 L (4.30-5.90) m/uL Hgb 8.6 L (13.0-17.5) gm/dL Hct 28.4 L (39.0-53.0) % MCHC 30.2 L (31.0-37.0) g/dL RDW 22.1 H (11.5-15.5) % Neutrophils # 17.8 H (1.3-7.7) k/uL Lymphocytes # 0.1 L (1.0-4.8) k/uL ABG pH 7.51 H (7.35-7.45) ABG HCO3 31 H (21-25) mmol/L ABG Total CO2 32 H (19-24) mmol/L ABG O2 Saturation 98.9 H (94-97) % Hemoglobin 8.6 L (13.0-17.5) gm/dL Sodium 134 L (137-145) mmol/L Chloride 97 L (98-107) mmol/L Carbon Dioxide 31 H (22-30) mmol/L Creatinine 0.45 L (0.66-1.25) mg/dL Calcium 8.2 L (8.4-10.2) mg/dL Microbiology - Last 24 Hours (Table) 04/15/24 12:35 Gram Stain - Preliminary Sputum Assessment and Plan Assessment: Acute on chronic shortness of breath, chest x-ray showing worsening multifocal airspace disease particularly in the right middle/upper lung zones, as well as, left perihilar region. This likely represents disease progression, superimposed infectious process is not excluded. Bronchoscopy done 04/11/2024, cultures revealing no growth. He did deteriorate requiring intubation mechanical ventilatory support early in the morning on April 15, 2024 Recent bronchoscopy, January 23, negative for cytology and microbiology positive for MSSA Metastatic squamous cell carcinoma of the lung, diagnosed initially 2020. Patient previously treated with chemo/radiation. Patient is restarted on systemic therapy and the patient is currently on IV Gemzar. Follow-up CAT scan of the chest done on 04/05/2024 is consistent with disease progression regarding his squamous cell carcinoma as noted. Superimposed pneumonia is felt to be less likely. Moderate chronic obstructive pulmonary disease, with an FEV1 51% of predicted Paroxysmal atrial fibrillation, transient bouts of RVR on monitor Bilateral lower extremity edema Chronic anemia, hemoglobin stable History of hypertension History of hyperlipidemia History of CAD with previous PCI/stent History of ischemic cardiomyopathy, most recent available echocardiogram from August, showing improvement in left ventricular ejection fraction of 55 to 60% Chronic and ongoing tobacco dependence. Plan: The patient was seen and evaluated Chest x-ray, ABG, labs and medications reviewed Propofol for sedation Norepinephrine for pressor support Continue bronchodilators, steroids Continue IV diuretics Completed antibiotics Follow-up sputum culture pending Anticoagulated with Eliquis Protonix for GI prophylaxis Overall prognosis remains poor Remains a full code We will continue to follow I have personally seen and examined the patient, performed the documentation and the assessment and plan as written. Number of minutes spent on the visit: 15 Dictation was produced using [employer] dictation software. Please excuse any grammatical, word or spelling errors.
[2024-04-16 14:41] VITALS: BMI 17.4
--- NOTE | 2024-04-16 15:13 | P.PN ---
Subjective Progress Note Date: 04/16/24 Pt seen in ICU at todays visit. Yesterday pt was intubated due to respiratory distress. Repeat sputum culture pending. Remains on bronchodilators and steroids Objective - Vital Signs Vital signs: Vital Signs Temp 99.1 F 04/16/24 12:00 Pulse 105 H 04/16/24 13:03 Resp 28 H 04/16/24 13:03 BP 98/74 04/16/24 13:00 Pulse Ox 96 04/16/24 13:00 FiO2 60 04/16/24 12:57 Intake & Output 04/15/24 04/16/24 04/16/24 18:59 06:59 18:59 Intake Total 561.928 543.700 384.840 Output Total 710 1170 940 Balance -148.072 -626.300 -555.160 Weight 60 kg Intake: IV 9 119 148 .9 KVO 110 130 0.9 A-line 18 Invasive Line 5 9 9 Intake, IV Titration 552.928 364.700 126.840 Amount Norepinephrine 4 mg In 356.182 219.682 66.084 Sodium Chloride 0.9% 250 ml @ 0.03 MCG/KG/MIN 6. 972 mls/hr IV .Q24H [facility] Rx#:[id number] propofoL 1,000 mg In 196.746 145.018 60.756 Empty Bag 1 bag @ 15 MCG/ KG/MIN 5.49 mls/hr IV . [id number] [facility] Rx#:[id number] Tube Feeding 20 Other 60 90 Output: Urine 710 1170 940 Other: Voiding Method Indwelling Catheter Indwelling Catheter Indwelling Catheter # Bowel Movements 1 1 ABP, PAP, CO, CI - Last Documented Arterial Blood Pressure 105/55 - Constitutional General appearance: Present: no acute distress - Respiratory Details: ventilated breath sounds - Cardiovascular Details: skin warm and dry - Integumentary Integumentary: Absent: cyanotic - Labs CBC & Chem 7: 04/16/24 05:02 04/16/24 05:02 Labs: Abnormal Lab Results - Last 24 Hours (Table) 04/16/24 04/16/24 04/16/24 Range/Units 04:18 05:02 05:02 WBC 18.4 H (3.8-10.6) k/uL RBC 2.91 L (4.30-5.90) m/uL Hgb 8.6 L (13.0-17.5) gm/dL Hct 28.4 L (39.0-53.0) % MCHC 30.2 L (31.0-37.0) g/dL RDW 22.1 H (11.5-15.5) % Neutrophils # 17.8 H (1.3-7.7) k/uL Lymphocytes # 0.1 L (1.0-4.8) k/uL ABG pH 7.51 H (7.35-7.45) ABG HCO3 31 H (21-25) mmol/L ABG Total CO2 32 H (19-24) mmol/L ABG O2 Saturation 98.9 H (94-97) % Hemoglobin 8.6 L (13.0-17.5) gm/dL Sodium 134 L (137-145) mmol/L Chloride 97 L (98-107) mmol/L Carbon Dioxide 31 H (22-30) mmol/L Creatinine 0.45 L (0.66-1.25) mg/dL Calcium 8.2 L (8.4-10.2) mg/dL Microbiology - Last 24 Hours (Table) 04/15/24 12:35 Gram Stain - Preliminary Sputum Assessment and Plan (1) Acute exacerbation of chronic obstructive pulmonary disease Current Visit: Yes Status: Acute Priority: High Code(s): J44.1 - CHRONIC OBSTRUCTIVE PULMONARY DISEASE W (ACUTE) EXACERBATION SNOMED Code(s): 932805516 (2) Lung cancer Current Visit: Yes Status: Chronic Priority: High Code(s): C34.90 - MALIGNANT NEOPLASM OF UNSP PART OF UNSP BRONCHUS OR LUNG SNOMED Code(s): 042867886 Plan: COPD exacerbation -Abx completed. Continues IV steroids and bronchodilators -CT chest report reviewed, compared to report from Nov 2023. No suspected dise ase progression or new disease at this time. Plan is for 1 more cycle of treatment after resolution of acute condition then CT with comparison. Pt agreeable with plan. -ECHO showing EF 35-40%. Trace pericardial effusion -S/p bronch with BAL of RUL, with improvement in breathing. Cytology and pleural fluid culture negative. -Has since been intubated for respiratory distress, repeat sputum culture pending. Pulmonology following Metastatic squamous cell carcinoma -Diagnosis and treatment history as stated in consult. -Patient is most recently been on single agent Gemzar, status post 2 cycles, actually doing fairly well with treatment, mild hematological toxicities -Treatment on hold, pending course of hospitalization
[2024-04-16 18:11] LABS: Glucose,Whole Blood 118 mg/dL (70-110)
[2024-04-16 23:28] LABS: Glucose,Whole Blood 134 mg/dL (70-110)
[2024-04-17 05:08] LABS: Glucose,Whole Blood 325 mg/dL (70-110)
[2024-04-17 05:19] LABS: Anisocytosis Moderate; Basophils % (A) 0 %; Eosinophils % (A) 0 %; HCT 29.8 % (39.0-53.0); HGB 8.5 gm/dL (13.0-17.5); Hypochromasia Marked; Lymphocytes # (A) 0.1 k/uL (1.0-4.8); Lymphocytes % (A) 1 %; MCH 27.7 pg (25.0-35.0); MCHC 28.4 g/dL (31.0-37.0); MCV 97.6 fL (80.0-100.0); Macrocytosis Moderate; Mean Platelet Volume 9.2; Monocytes # (A) 0.6 k/uL (0-1.0); Monocytes % (A) 3 %; Neutrophils # (A) 23.2 k/uL (1.3-7.7); Neutrophils % (A) 96 %; Platelet Count 271 k/uL (150-450); Poikilocytosis Slight; RBC 3.05 m/uL (4.30-5.90); RDW 21.9 % (11.5-15.5); WBC 24.1 k/uL (3.8-10.6)
[2024-04-17 05:31] LABS: ABG Base Excess 7.7 mmol/L; ABG HCO3 32 mmol/L (21-25); ABG Oxygen Saturation 98.9 % (94-97); ABG PCO2 43 mmHg (35-45); ABG PH 7.48 (7.35-7.45); ABG PO2 115 mmHg (83-108); ABG TCO2 33 mmol/L (19-24)
[2024-04-17 05:33] LABS: African American GFR (CKD) >90 (>60 ml/min/1.73 sqM); Anion Gap 5 mmol/L; Blood Urea Nitrogen 28 mg/dL (9-20); Calcium 8.6 mg/dL (8.4-10.2); Carbon Dioxide 33 mmol/L (22-30); Chloride 96 mmol/L (98-107); Glucose 142 mg/dL (74-99); Non-African American GFR(CKD) >90 (>60 ml/min/1.73 sqM); Sodium 134 mmol/L (137-145)
[2024-04-17 05:38] LABS: Allen Test Performed? No
--- NOTE | 2024-04-17 08:02 | XR ---
EXAMINATION TYPE: XR chest 1V portable DATE OF EXAM: 04/17/2024 5:33 AM COMPARISON: Multiple radiographs, with the most recent on 04/16/2024 TECHNIQUE: XR chest 1V portable Portable AP radiograph of the chest. CLINICAL INDICATION:Male, 63 years old with history of Tube placement; FINDINGS: Lungs/Pleura: No pleural effusion or pneumothorax. Biapical pleural parenchymal scarring with right g reater the left. No smoking change in patchy airspace opacities throughout the right lung. Most prono unced within the right perihilar region. Similar left perihilar opacity. Pulmonary vascularity: Unremarkable. Heart/mediastinum: Cardiomediastinal silhouette is unremarkable. Musculoskeletal: No acute osseous pathology. Other findings: None Lines/Tubes: Endotracheal tube with distal tip 5.5 cm above the teresa Nasogastric tube with its distal tip and side-port projecting under the diaphragm and projecting over the gastric lumen. IMPRESSION: 1. No significant change in multifocal airspace opacities/consolidation with right greater than left . 2. Stable support tubes. [facility], , 04/17/2024 7:59 AM
[2024-04-17 11:29] LABS: Glucose,Whole Blood 172 mg/dL (70-110)
--- NOTE | 2024-04-17 11:40 | P.PN ---
Subjective Progress Note Date: 04/17/24 Patient is a 63-year-old male with past medical history significant for COPD, lung cancer, hypertension, hyperlipidemia, CAD with previous PCI/stents, ischemic cardiomyopathy, and atrial fibrillation anticoagulated on Eliquis. Patient is known to have metastatic non-small cell lung cancer. His oncologist is Dr. Hoyos. Treated in the past with chemo/radiation, and patient is currently on systemic therapy, 2 weeks on 1 week off. Of note, patient has had multiple recent hospitalizations, as well as, recent bronchoscopy with airway examination and BAL on January 23. [place] was positive for MSSA. More recently on 03/13/2024, patient was treated for right upper lobe pneumonia, possibly postobstructive, on an outpatient basis with a course of Levaquin by Dr. Kumar. Patient presents emergency department late last night with a chief complaint of shortness of breath. Associated productive cough with yellow sputum production. Workup in the emergency department including a chest x-ray showing worsening multifocal airspace disease particularly in the right middle/upper lung zones as well as left perihilar region. This likely represents disease progression, with possible superimposed infectious process. CBC: WBC count of 6.8, hemoglobin 9, platelets 157. CMP: Sodium 135, potassium 3.7, chloride 96, serum bicarb 28, BUN 17, creatinine 0.65, glucose 115. Lactic was 2.6 and is down to 1. Troponin less than 0.012. NT proBNP 2360. EKG: Sinus tachycardia, rate 107 bpm, no acute ST segment elevations. Viral screen negative for influenza, RSV, COVID. Patient was placed on empiric antibiotics in the ED in the form of azithromycin and cefepime. Patient currently being evaluated in the emergency department. He is on room air. Nondistressed. He has been coughing up clear to yellow phlegm into a bottle. Denies sick contacts. Denies any fever/chills, hemoptysis, chest pain. Does report worsening lower extremity swelling. Appears the patient flipping in and out of atrial fibrillation with rapid ventricular response. He has known history of atrial fibrillation, and his ca rdiac medications are yet to be restarted. Denies chest pain, heart palpitations, lightheadedness/syncopal events, orthopnea, PND. Most recent available echocardiogram from 09/06/2023 demonstrating a preserved ejection fraction. Current most recent vital signs: Temperature 98.2 F, heart rate 90 bpm, blood pressure 103/78 mmHg, nontachypneic SpO2 reading 99% on room air. On 04/06/2024, the patient is being seen for a follow-up. Slightly improved compared to yesterday. Continues to have a cough and congestion in his chest. Sputum sample was given and the cultures are still pending for now. Remains to be bronchospastic and wheezy. No fever. No hemodynamic instability. No hemoptysis. The patient had a CAT scan of the chest yesterday and this was reviewed and it shows progression of his disease with increased soft tissue density throughout the mediastinum consistent with progression of his squamous cell carcinoma in addition to a cavitating suprahilar mass. He was receiving IV Gemzar on outpatient basis as palliative systemic chemotherapy. No other new complaints otherwise for now. Remains on DuoNeb. Remains on IV cefepime and Zithromax. He is also on IV Solu-Medrol 60 mg every 6 hours. No other significant events overnight. On 04/07/2024, the patient is being seen for a follow-up. Continues to have some cough and congestion although less compared to yesterday. The sputum sample is still pending for now. Noted the patient's procalcitonin level was not elevated and a pneumonia is felt to be less likely. His presentation is not related to COPD exacerbation and underlying lung cancer. The patient was receiving IV Gemzar regarding his lung cancer on outpatient basis. Feels well. No new complaints. Appetite is diminished. Currently on 2 L of oxygen by nasal cannula. White cell count is at 5.4 with a hemoglobin of 7.7, BUN 16 with a creatinine 0.59 and sodium was 132. LFTs are normal. No other significant events overnight. Blood cultures have been negative. On 04/08/2024, the patient is being seen for a follow-up. The patient is currently on oxygen and at 2 L/min nasal cannula. Continues to have cough and congestion and is still producing thick mucus. The patient is currently on clindamycin. The patient is on DuoNeb nebulized treatments [id number]. The patient on Symbicort. The patient remains on IV Solu-Medrol 60 mg IV push e very 6 hours. Sputum cultures have been negative. As mentioned, he is known to have underlying lung cancer, which is metastatic squamous cell carcinoma the patient has been receiving palliative chemotherapy with Gemzar. Blood work from today shows a white cell count of 7.8, hemoglobin 7.4 and platelet count of 257. BUN is 15 with a creatinine of 0.6. Sodium levels at 134. The patient is seen today April 09, 2024 in follow-up on the selective care unit. He is currently sitting up at the bedside. Awake and alert in no acute distress. Still quite dyspneic with minimal conversation. Dyspneic with minimal exertion. He is maintaining O2 saturations in the 90s on 3 L/min per nasal cannula. He is continued on DuoNeb and elations, Symbicort, Solu-Medrol. Antibiotics in the form of clindamycin. White count 8.4. Hemoglobin 7.5. Platelets 292. Sodium 134. Potassium 3.3. Bicarb 31. BUN 16. Creatinine 0.63. Glucose 135. He is anticoagulated with Eliquis. Remains on IV diur etics. Currently in a -1.8 L balance. The patient is seen today April 10, 2024 in follow-up on the selective care unit. He is currently resting in bed. Awake and alert in no acute distress. Continues with significant cough and congestion. Unable to clear his secretions. Is in the 90s on 4 L/min per nasal cannula. He is been afebrile. Hemodynamically stable. Sputum culture revealed no growth. Blood culture revealed no growth.. Hemoglobin 8.0. Platelets 319. Sodium 134. Potassium 3.9. Bicarb 35. BUN 12. Creatinine 0.54. Glucose 116. He remains on DuoNeb inhalations, Symbicort, Solu-Medrol. Remains on IV diuretics. Remains on antibiotics in the form of clindamycin. Anticoagulated with Eliquis. The patient is seen today April 11, 2024 in follow-up on the selective care unit. He is awake and alert in no acute distress. Continues with a loose congested cough. Plan is for bronchoscopy with BAL today with Dr. Kumar. He is maintaining O2 saturations in the 90s on 4 L/min per nasal cannula. He has been afebrile. Hemodynamically stable. White count 10.2. Hemoglobin 7.8. Platelets 305. Sodium 134. Potassium 3.9. Bicarb 36. BUN 18. Creatinine 0.54. Glucose 106. He is continued on DuoNeb and elations, Symbicort, Solu- Medrol. Remains on IV diuretics. Remains on clindamycin. Eliquis will be resumed postprocedure. The patient is seen today April 13, 2024 in follow-up on the regular medical floor. He was transferred off the selective care unit yesterday. He is sitting up in bed. Awake and alert in no acute distress. Maintaining good O2 saturations in the 90s on 4 L/min per nasal cannula. He is afebrile. Hemodynamically stable. Sputum culture revealed no growth. Blood culture revealed no growth. Bronchial wash cultures revealed no growth. White count 17.0. Hemoglobin 8.5. Platelets 350. Sodium 133. Potassium 4.0. Bicarb 32. BUN 23. Creatinine 0.37. Glucose 158. He is continued on DuoNeb inhalations, Symbicort, Solu-Medrol. Remains on IV diuretics. Remains anticoagulated with Eliquis. Patient was seen today and 04/14/2024, patient had to be transferred last night to the ICU mostly because of intermittent episodes of shortness of breath, coughing, wheezing, extremely agitated, and constant cough. Patient was placed on 50 L Airvo with O2 sat in the 85% range, however he is extremely restless and agitated and continuously coughing. After evaluating the patient, I recommended 1 mg of Ativan I also recommended a Precedex drip. Risks patient does not calm down, may have to consider intubation mechanical ventilation. However his overall prognosis extremely poor, and I am afraid once the patient is intubated his prognosis becomes even extremely worse. His WBC count today is 19.1 hemoglobin 8.7 electrolytes are normal renal profile is normal bicarb is 34 chest x-ray continues to show significant airspace disease involving the right upper lobe and the right lower lobe and right midlung and to some extent the left perihilar area. Clearly the patient has significant airspace disease but mostly the right upper lobe where his initial cancer was present and he had radiation treatment to that right upper lobe. Patient was seen today on 04/15/2024, patient remains in the ICU, however yesterday his clinical condition deteriorated, patient continued to have cough shortness of breath, he was desaturated, and he was not responding to Precedex anymore. Patient was in quite a bit of respiratory distress, hence I recommended immediate intubation and mechanical ventilation. Patient is now intubated mechanically ventilated on assist-control rate of 20 tidal volume 400 FiO2 100% and PEEP of 5 ABG showed a pO2 of 159 pCO2 49 pH of 7.40 FiO2 was cut down to 60% PEEP at 5. Chest x-ray this morning showed right greater than left perihilar airspace opacities may have worsened in comparison to previous chest x-ray. No pleural effusion and no pneumothorax. Patient is requiring norepinephrine at 0.12 mcg/kg/min he is also on propofol at 50 mcg/kg/min. He has a urine output of 35 cc/h. Repeat sputum cultures are pending, patient had a recent bronchoscopy and BAL, cultures came back negative, and the patient has been on antibiotics all along. Patient has leukocytosis with WC count of 19 he moglobin 9.1. Basic metabolic profile is normal BUN is 26 creatinine 0.52 bicarb is 32. The patient is seen today April 16, 2024 in follow-up in the intensive care unit. He remains intubated on the mechanical ventilator. Currently on assist-control mode at a rate of 20, tidal volume 400, FiO2 60% and a PEEP of 5. Morning blood gases revealed a PaO2 of 100, pCO2 39 and a pH of 7.51. He remains sedated on propofol at 40 mcg/kg/min. He is requiring norepinephrine at 0.09 mcg/kg/min. Chest x-ray shows similar multifocal airspace opacities/consolidation with right greater than left. Sputum cultures revealed no growth. Bronchoalveolar lavage cultures revealed no growth. Blood cultures revealed no growth. Follow-up sputum culture pending. White count 18.4. Hemoglobin 8.6. Platelets 264. Sodium 134. Potassium 3.5. Bicarb 31. BUN 20. Creatinine 0.45. Glucose 90. He is continued on DuoNeb inhalations, Symbicort, Solu-Medrol. Remains on IV Lasix. Anticoagulated with Eliquis. The patient is seen today April 17, 2024 in follow-up in the intensive care unit. He remains intubated on the mechanical ventilator. Currently in assist-control mode at a rate of 20, tidal volume 400, FiO2 60% and a PEEP of 5. Morning blood gases revealed a PaO2 of 115, pCO2 43 and a pH of 7.48. He is sedated on propofol at 40 mcg/kg/min. He is being nourished with vital HP at 40 mL/h with a goal of 55 mL/h. X-ray reveals no significant change in the multifocal airspace opacities/consolidation in the right greater than left lung. Sputum cultures revealed no growth. White count 24.1. Hemoglobin 8.5. Platelets 271. Sodium 134. Potassium 4.0. Bicarb 33. BUN 28. Creatinine 0.49. Glucose 142. He remains on DuoNeb inhalations, Symbicort, Solu-Medrol. Remains on IV diuretics. Anticoagulated with Eliquis. Objective - Vital Signs Vital signs: Vital Signs Temp 98.4 F 04/17/24 08:00 Pulse 102 H 04/17/24 11:00 Resp 26 H 04/17/24 11:00 BP 115/76 04/17/24 10:00 Pulse Ox 96 04/17/24 11:00 FiO2 50 04/17/24 10:14 Intake & Output 04/16/24 04/17/24 04/17/24 18:59 06:59 18:59 Intake Total 853.504 982.311 377.956 Output Total 1120 345 605 Balance -266.496 637.311 -227.044 Weight 60 kg 62.1 kg Intake: IV 263 276 115 .9 KVO 230 240 100 0.9 A-line 33 36 15 Intake, IV Titration 380.504 326.311 72.956 Amount Norepinephrine 4 mg In 219.748 154.941 Sodium Chloride 0.9% 250 ml @ 0.03 MCG/KG/MIN 6. 972 mls/hr IV .Q24H [facility] Rx#:[id number] propofoL 1,000 mg In 160.756 171.370 72.956 Empty Bag 1 bag @ 15 MCG/ KG/MIN 5.49 mls/hr IV . [id number] [facility] Rx#:[id number] Tube Feeding 120 320 160 Other 90 60 30 Output: Urine 1120 345 605 Other: Voiding Method Indwelling Catheter Indwelling Catheter Indwelling Catheter # Bowel Movements 1 ABP, PAP, CO, CI - Last Documented Arterial Blood Pressure 112/55 - Exam GENERAL EXAM: Intubated, sedated thin 63-year-old male patient, on the mechanical ventilator, in no apparent distress. HEAD: Normocephalic. EYES: Normal reaction of pupils, equal size. NOSE: Clear with pink turbinates. THROAT: No erythema or exudates. NECK: No masses, no JVD. CHEST: No chest wall deformity. LUNGS: Equal air entry with bilateral scattered rhonchi more so on the right lung. CVS: S1 and S2 normal with no audible murmur, regular rhythm. ABDOMEN: No hepatosplenomegaly, normal bowel sounds, no guarding or rigidity. SPINE: No scoliosis or deformity SKIN: No rashes CENTRAL NERVOUS SYSTEM: Sedated, tone is normal in all 4 extremities. EXTREMITIES: There is 1+ peripheral edema. No clubbing, no cyanosis. Fina pheral pulses are intact. - Labs CBC & Chem 7: 04/17/24 05:05 04/17/24 05:05 Labs: Abnormal Lab Results - Last 24 Hours (Table) 04/16/24 04/16/24 04/16/24 Range/Units 05:02 18:10 23:27 WBC (3.8-10.6) k/uL RBC (4.30-5.90) m/uL Hgb (13.0-17.5) gm/dL Hct (39.0-53.0) % MCHC (31.0-37.0) g/dL RDW (11.5-15.5) % Neutrophils # (1.3-7.7) k/uL Lymphocytes # (1.0-4.8) k/uL ABG pH (7.35-7.45) ABG pO2 (83-108) mmHg ABG HCO3 (21-25) mmol/L ABG Total CO2 (19-24) mmol/L ABG O2 Saturation (94-97) % Hemoglobin (13.0-17.5) gm/dL Sodium (137-145) mmol/L Chloride (98-107) mmol/L Carbon Dioxide (22-30) mmol/L BUN (9-20) mg/dL Creatinine (0.66-1.25) mg/dL Glucose (74-99) mg/dL POC Glucose (mg/dL) 118 H 134 H (70-110) mg/dL Procalcitonin 1.79 H (0.02-0.50) ng/mL 04/17/24 04/17/24 04/17/24 Range/Units 05:05 05:05 05:06 WBC 24.1 H (3.8-10.6) k/uL RBC 3.05 L (4.30-5.90) m/uL Hgb 8.5 L (13.0-17.5) gm/dL Hct 29.8 L (39.0-53.0) % MCHC 28.4 L (31.0-37.0) g/dL RDW 21.9 H (11.5-15.5) % Neutrophils # 23.2 H (1.3-7.7) k/uL Lymphocytes # 0.1 L (1.0-4.8) k/uL ABG pH (7.35-7.45) ABG pO2 (83-108) mmHg ABG HCO3 (21-25) mmol/L ABG Total CO2 (19-24) mmol/L ABG O2 Saturation (94-97) % Hemoglobin (13.0-17.5) gm/dL Sodium 134 L (137-145) mmol/L Chloride 96 L (98-107) mmol/L Carbon Dioxide 33 H (22-30) mmol/L BUN 28 H (9-20) mg/dL Creatinine 0.49 L (0.66-1.25) mg/dL Glucose 142 H (74-99) mg/dL POC Glucose (mg/dL) 325 H (70-110) mg/dL Procalcitonin (0.02-0.50) ng/mL 04/17/24 04/17/24 Range/Units 05:28 11:28 WBC (3.8-10.6) k/uL RBC (4.30-5.90) m/uL Hgb (13.0-17.5) gm/dL Hct (39.0-53.0) % MCHC (31.0-37.0) g/dL RDW (11.5-15.5) % Neutrophils # (1.3-7.7) k/uL Lymphocytes # (1.0-4.8) k/uL ABG pH 7.48 H (7.35-7.45) ABG pO2 115 H (83-108) mmHg ABG HCO3 32 H (21-25) mmol/L ABG Total CO2 33 H (19-24) mmol/L ABG O2 Saturation 98.9 H (94-97) % Hemoglobin 8.6 L (13.0-17.5) gm/dL Sodium (137-145) mmol/L Chloride (98-107) mmol/L Carbon Dioxide (22-30) mmol/L BUN (9-20) mg/dL Creatinine (0.66-1.25) mg/dL Glucose (74-99) mg/dL POC Glucose (mg/dL) 172 H (70-110) mg/dL Procalcitonin (0.02-0.50) ng/mL Microbiology - Last 24 Hours (Table) 04/15/24 12:35 Gram Stain - Preliminary Sputum Assessment and Plan Assessment: Acute on chronic shortness of breath, chest x-ray showing worsening multifocal airspace disease particularly in the right middle/upper lung zones, as well as, left perihilar region. This likely represents disease progression, superimposed infectious process is not excluded. Bronchoscopy done 04/11/2024, cultures revealing no growth. He did deteriorate requiring intubation mechanical vent ilatory support early in the morning on April 15, 2024 Recent bronchoscopy, January 23, negative for cytology and microbiology positive for MSSA. Completed antibiotics Metastatic squamous cell carcinoma of the lung, diagnosed initially 2020. Patient previously treated with chemo/radiation. Patient is restarted on systemic therapy and the patient is currently on IV Gemzar. Follow-up CAT scan of the chest done on 04/05/2024 is consistent with disease progression regarding his squamous cell carcinoma as noted. Moderate chronic obstructive pulmonary disease, with an FEV1 51% of predicted Paroxysmal atrial fibrillation, transient bouts of RVR on monitor Bilateral lower extremity edema Chronic anemia, hemoglobin stable History of hypertension History of hyperlipidemia History of CAD with previous PCI/stent History of ischemic cardiomyopathy, most recent available echocardiogram from August, showing improvement in left ventricular ejection fraction of 55 to 60% Chronic and ongoing tobacco dependence. Plan: The patient was seen and evaluated Chest x-ray, ABG, labs and medications reviewed Decreased the FiO2 to 50% Continue propofol for sedation Continue bronchodilators, steroids Continue IV diuretics Anticoagulated with Eliquis Protonix for GI prophylaxis Overall prognosis remains poor We will continue to follow I have personally seen and examined the patient, performed the documentation and the assessment and plan as written. Number of minutes spent on the visit: 15 Dictation was produced using [employer] software. Please excuse any grammatical, word or spelling errors.
--- NOTE | 2024-04-17 15:59 | P.PN ---
Subjective Progress Note Date: 04/17/24 Hospital Course: Patient is a pleasant 63-year-old male with a past medical history of squamous cell carcinoma of lung currently undergoing chemotherapy, COPD not home oxygen dependent, CAD status post stenting, ischemic cardiomyopathy, paroxysmal atrial fibrillation on anticoagulation with Eliquis, chronic diastolic heart failure, hypertension, hyperlipidemia, and nicotine dependence.. He reports following with seam stay stitcher/oncologist Dr. Hoyos and states last chemotherapy treatment was 1 week ago tomorrow. He presented to the emergency department on 04/04/2024 secondary to reports of shortness of breath accompanied by worsening cough with production of yellowish-brown sputum. Upon arrival to our facility, patient underwent evaluation in the emergency department. Vital signs upon arrival showing blood pressure 119/82, heart rate 111, respiratory rate 22, temp 98.2 F, and SpO2 of 99% on room air. EKG completed showing sinus tachycardia at 107 bpm with repeat EKG showing atrial fibrillation with RVR at 133 bpm T wave inversion in lateral leads I, aVL, V5 and V6.. Chest x-ray showing moderate amount of airspace opacities in bilateral lungs concentrated in the right middle/upper lung zones and left perihilar regions suggestive of pneumonia. Labs completed and reviewed. CBC showing normocytic anemia with hemoglobin of 9.0 chronic and at baseline. Coagulation profile normal findings. BMP showing hypochloremic hyponatremia with sodium of 135 and chloride of 96. Blood glucose 115. Lactic acid 2.6. Magnesium 2.0. Liver profile unremarkable. Troponin was negative at less than 0.012 and proBNP was 2360. Influenza A, influenza B, RSV, and COVID PCR negative. CT chest with IV contrast completed showing increasing soft tissue density throughout the mediastinum encasing vessels and bronchi, a 1.4 cm paratracheal mass with subtle hypodense center may be a necrotic lymph node versus soft tissue mass, increasing lung findings suspicious for metastatic disease and increasing pericardial effusion. Patient admitted under our services with consultation to pulmonology and oncology. he was started on clindamycin Status post BAL on 04/11, significant necrotic tissue noted in the whole right upper lobe, related to his cancer, radiation treatment, similar changes noted in the left mainstem bronchus, carinal area. Cultures and cytology pending 04/14/2024 rapid response was called for respiratory distress. Patient desaturated to low 80s,was tachepneic with coughing spells, was placed on nasal cannula 15 L, then advance to Air, satting in mid 90s. His blood pressure remained stable. He was provided with his morning dose of Lasix 40 IV once, breathing treatment, 1 dose of Ativan 0.5 IV, patient noted he was panicking, no beds on 3 S. available, patient was transferred to the ICU as overflow. Chest x-ray during rapid response was done and corrected by me as below. I addressed patient's CODE STATUS again, explained the nature of resuscitation process, patient stated that he wants to remain full code at this time. We did discuss his significant comorbidities, chances of survival and meaningful recovery after resuscitation. 04/15: Patient was intubated overnight for respiratory distress, tachypnea, was started on propofol, required levo at 0.14. Bright red blood was noted per NG, small amount, morning Eliquis held. Blood stopped, patient was noted to have stable hemoglobin and bilious discharge from OG tube, resumed Eliquis. 04/16 was provided with additional dose of IV Lasix for decreased urine output. Chest x-ray showed no significant changes, ETT 5.5 cm above the teresa Subjective: Intubated and sedated General: intubated, sedated, chronically ill-appearing Derm: Skin warm and dry, normal coloration for ethnicity. Head: Atraumatic, normocephalic and symmetric. Eyes: EOM's intact, no lid lag, and anicteric sclera Mouth: no lip lesions, mucus membranes moist, ETT, OG Cardiovascular: regular rate and rhythm with normal S1S2, no murmur, positive posterior tibial pulses bilaterally, and cap refill < 2 seconds. Lungs: Bilateral air entry, diffuse scattered rhonchi Abdominal: soft, nontender to palpation, no guarding, no appreciable organomegaly Ext: ROM intact. No gross muscle atrophy, 1+ pitting edema, no contractures. Neuro: Unable to assess, intubated and sedated Psych: unAble to assess, intubated and sedated Lab work reviewed WBC 24.1, hemoglobin 8.5, ABG with pH of 7.48, pCO2 43 and pO2 98.9, sodium 134, chloride 96, bicarb 33, BUN 28, creatinine 0.49, glucose 142. Assessment and Plan of Care: Acute hypoxic respiratory failure requiring intubation 3/2 COPD with acute exacerbation Metastatic squamous cell carcinoma of lung Concerns for possible pneumonia, recent bronchoscopy completed positive for MSSA -Pulmonology following -Continue vent management per ICU -Telemetry monitoring. -Continue breathing treatment -Steroids: Solu-Medrol 60 mg IVP daily -Urine Legionella negative. Sputum culture showing no growth. Blood culture negative showing no growth after 5 days. -Continue Clindamycin 450 mg every 6 hours per recommendations of pulmonolgy due to inability to completely rule out underlying infectious process. SOT 04/07 -Oncology following, plan to continue with third cycle of Gemzar once acutely recovered -BAL cultures and cytology from 04/11 negative -Continue sedation, wean off as tolerated -Continue D5 infusion, tolerated -Overall prognosis is poor -Hold IV Lasix 40 this morning Coffee-ground discharge per OG tube, resolved -Hemoglobin stable, continue Eliquis and PPIs Acute on chronic diastolic heart failure with mild exacerbation CAD status post stenting Paroxysmal atrial fibrillation Hypertension Hyperlipidemia -Continue Lasix 40 mg IVP daily., BP improving, decrease dose of levo, was noted to have decreased urine output and provided with 1 dose of IV Lasix overnight 3 -Monitor vital signs and continue daily medication regimen with amiodarone 200 mg daily, continue Eliquis 5 mg twice daily, continue atorvastatin 80 mg nightly, and metoprolol 12.5 mg twice daily, Severe protein calorie malnutrition -Protein 5.1 and albumin 2.6. Severe protein calorie malnutrition likely secondary to advanced squamous cell carcinoma of the lung with metastasis and decreased oral intake. -Patient started on protein supplements 3 times daily between meals and consult placed to dietitian. Nicotine dependence -Patient reported that he has cut back significantly on smoking and declined wanting nicotine patch at this time. CODE STATUS: Full code DVT prophylaxis: Eliquis Anticipated discharge date: tbd Anticipated discharge place: tbd Objective - Vital Signs Vital signs: Vital Signs Temp 97.7 F 04/17/24 12:00 Pulse 100 04/17/24 15:00 Resp 21 04/17/24 15:00 BP 123/86 04/17/24 13:30 Pulse Ox 97 04/17/24 15:00 FiO2 50 04/17/24 12:26 Intake & Output 04/16/24 04/17/24 04/17/24 18:59 06:59 18:59 Intake Total 853.504 982.311 691.890 Output Total 1120 345 790 Balance -266.496 637.311 -98.110 Weight 60 kg 62.1 kg Intake: IV 263 276 207 .9 KVO 230 240 180 0.9 A-line 33 36 27 Intake, IV Titration 380.504 326.311 104.890 Amount Norepinephrine 4 mg In 219.748 154.941 Sodium Chloride 0.9% 250 ml @ 0.03 MCG/KG/MIN 6. 972 mls/hr IV .Q24H [facility] Rx#:[id number] propofoL 1,000 mg In 160.756 171.370 104.890 Empty Bag 1 bag @ 15 MCG/ KG/MIN 5.49 mls/hr IV . [id number] [facility] Rx#:[id number] Tube Feeding 120 320 320 Other 90 60 60 Output: Urine 1120 345 790 Other: Voiding Method Indwelling Catheter Indwelling Catheter Indwelling Catheter # Bowel Movements 1 ABP, PAP, CO, CI - Last Documented Arterial Blood Pressure 103/51 - Labs CBC & Chem 7: 04/17/24 05:05 04/17/24 05:05 Labs: Abnormal Lab Results - Last 24 Hours (Table) 04/16/24 04/16/24 04/16/24 Range/Units 05:02 18:10 23:27 WBC (3.8-10.6) k/uL RBC (4.30-5.90) m/uL Hgb (13.0-17.5) gm/dL Hct (39.0-53.0) % MCHC (31.0-37.0) g/dL RDW (11.5-15.5) % Neutrophils # (1.3-7.7) k/uL Lymphocytes # (1.0-4.8) k/uL ABG pH (7.35-7.45) ABG pO2 (83-108) mmHg ABG HCO3 (21-25) mmol/L ABG Total CO2 (19-24) mmol/L ABG O2 Saturation (94-97) % Hemoglobin (13.0-17.5) gm/dL Sodium (137-145) mmol/L Chloride (98-107) mmol/L Carbon Dioxide (22-30) mmol/L BUN (9-20) mg/dL Creatinine (0.66-1.25) mg/dL Glucose (74-99) mg/dL POC Glucose (mg/dL) 118 H 134 H (70-110) mg/dL Procalcitonin 1.79 H (0.02-0.50) ng/mL 04/17/24 04/17/24 04/17/24 Range/Units 05:05 05:05 05:06 WBC 24.1 H (3.8-10.6) k/uL RBC 3.05 L (4.30-5.90) m/uL Hgb 8.5 L (13.0-17.5) gm/dL Hct 29.8 L (39.0-53.0) % MCHC 28.4 L (31.0-37.0) g/dL RDW 21.9 H (11.5-15.5) % Neutrophils # 23.2 H (1.3-7.7) k/uL Lymphocytes # 0.1 L (1.0-4.8) k/uL ABG pH (7.35-7.45) ABG pO2 (83-108) mmHg ABG HCO3 (21-25) mmol/L ABG Total CO2 (19-24) mmol/L ABG O2 Saturation (94-97) % Hemoglobin (13.0-17.5) gm/dL Sodium 134 L (137-145) mmol/L Chloride 96 L (98-107) mmol/L Carbon Dioxide 33 H (22-30) mmol/L BUN 28 H (9-20) mg/dL Creatinine 0.49 L (0.66-1.25) mg/dL Glucose 142 H (74-99) mg/dL POC Glucose (mg/dL) 325 H (70-110) mg/dL Procalcitonin (0.02-0.50) ng/mL 04/17/24 04/17/24 Range/Units 05:28 11:28 WBC (3.8-10.6) k/uL RBC (4.30-5.90) m/uL Hgb (13.0-17.5) gm/dL Hct (39.0-53.0) % MCHC (31.0-37.0) g/dL RDW (11.5-15.5) % Neutrophils # (1.3-7.7) k/uL Lymphocytes # (1.0-4.8) k/uL ABG pH 7.48 H (7.35-7.45) ABG pO2 115 H (83-108) mmHg ABG HCO3 32 H (21-25) mmol/L ABG Total CO2 33 H (19-24) mmol/L ABG O2 Saturation 98.9 H (94-97) % Hemoglobin 8.6 L (13.0-17.5) gm/dL Sodium (137-145) mmol/L Chloride (98-107) mmol/L Carbon Dioxide (22-30) mmol/L BUN (9-20) mg/dL Creatinine (0.66-1.25) mg/dL Glucose (74-99) mg/dL POC Glucose (mg/dL) 172 H (70-110) mg/dL Procalcitonin (0.02-0.50) ng/mL Microbiology - Last 24 Hours (Table) 04/15/24 12:35 Gram Stain - Preliminary Sputum Sputum Culture - Preliminary
[2024-04-17 17:07] LABS: Glucose,Whole Blood 219 mg/dL (70-110)
[2024-04-17 17:21] LABS: Glucose,Whole Blood 222 mg/dL (70-110)
[2024-04-17 23:20] LABS: Glucose,Whole Blood 253 mg/dL (70-110)
--- NOTE | 2024-04-18 01:46 | XR ---
EXAM: XR Chest, 1 View CLINICAL HISTORY: ITS.REASON XR Reason: ET, OG placement TECHNIQUE: Frontal view of the chest. COMPARISON: XR Chest dated 04/17/24 at 0516 FINDINGS: See Impression. IMPRESSION: 1. Endotracheal tube tip 3.4 cm above the teresa. 2. Stable enteric tube with the tip in the mid stomach. 3. Patchy bilateral airspace disease, greater on the right. Similar to the prior.
[2024-04-18 04:59] LABS: ABG Base Excess 10.1 mmol/L; ABG HCO3 34 mmol/L (21-25); ABG Oxygen Saturation 97.4 % (94-97); ABG PCO2 41 mmHg (35-45); ABG PH 7.52 (7.35-7.45); ABG PO2 89 mmHg (83-108); ABG TCO2 35 mmol/L (19-24)
[2024-04-18 05:14] LABS: Allen Test Performed? no
[2024-04-18 05:40] LABS: Anisocytosis Moderate; Basophils % (A) 0 %; Eosinophils % (A) 0 %; HCT 28.3 % (39.0-53.0); HGB 8.1 gm/dL (13.0-17.5); Hypochromasia Marked; Lymphocytes # (A) 0.1 k/uL (1.0-4.8); Lymphocytes % (A) 1 %; MCH 27.7 pg (25.0-35.0); MCHC 28.5 g/dL (31.0-37.0); MCV 97.2 fL (80.0-100.0); Macrocytosis Moderate; Mean Platelet Volume 9.1; Monocytes # (A) 0.6 k/uL (0-1.0); Monocytes % (A) 3 %; Neutrophils # (A) 22.5 k/uL (1.3-7.7); Neutrophils % (A) 96 %; Platelet Count 268 k/uL (150-450); Poikilocytosis Slight; RBC 2.91 m/uL (4.30-5.90); RDW 21.6 % (11.5-15.5); WBC 23.4 k/uL (3.8-10.6)
[2024-04-18 05:52] LABS: African American GFR (CKD) >90 (>60 ml/min/1.73 sqM); Anion Gap 6 mmol/L; Blood Urea Nitrogen 40 mg/dL (9-20); Calcium 8.5 mg/dL (8.4-10.2); Carbon Dioxide 33 mmol/L (22-30); Chloride 96 mmol/L (98-107); Glucose 205 mg/dL (74-99); Non-African American GFR(CKD) >90 (>60 ml/min/1.73 sqM); Potassium 4.4 mmol/L (3.5-5.1); Sodium 135 mmol/L (137-145)
--- NOTE | 2024-04-18 07:57 | XR ---
EXAMINATION TYPE: XR chest 1V portable DATE OF EXAM: 04/18/2024 5:29 AM COMPARISON: Multiple radiographs, with the most recent on 04/17/2024 TECHNIQUE: XR chest 1V portable Portable AP radiograph of the chest. CLINICAL INDICATION:Male, 63 years old with history of mechanical ventilation; FINDINGS: Lungs/Pleura: No pleural effusion or pneumothorax. Biapical pleural parenchymal scarring with right g reater the left. No significant change in patchy airspace opacities throughout the right lung. Most p ronounced within the right perihilar region. Similar left perihilar opacity. Pulmonary vascularity: Unremarkable. Heart/mediastinum: Cardiomediastinal silhouette is unremarkable. Musculoskeletal: No acute osseous pathology. Other findings: None Lines/Tubes: Endotracheal tube with distal tip 5.8 cm above the teresa Nasogastric tube with its distal tip and side-port projecting under the diaphragm and projecting over the gastric lumen. IMPRESSION: 1. No significant change in multifocal airspace opacities/consolidation with right greater than left . 2. Stable support tubes. [facility], , 04/18/2024 7:54 AM
--- NOTE | 2024-04-18 11:41 | P.PN ---
Subjective Progress Note Date: 04/18/24 Patient is a 63-year-old male with past medical history significant for COPD, lung cancer, hypertension, hyperlipidemia, CAD with previous PCI/stents, ischemic cardiomyopathy, and atrial fibrillation anticoagulated on Eliquis. Patient is known to have metastatic non-small cell lung cancer. His oncologist is Dr. Hoyos. Treated in the past with chemo/radiation, and patient is currently on systemic therapy, 2 weeks on 1 week off. Of note, patient has had multiple recent hospitalizations, as well as, recent bronchoscopy with airway examination and BAL on January 23. [place] was positive for MSSA. More recently on 03/13/2024, patient was treated for right upper lobe pneumonia, possibly postobstructive, on an outpatient basis with a course of Levaquin by Dr. Kumar. Patient presents emergency department late last night with a chief complaint of shortness of breath. Associated productive cough with yellow sputum production. Workup in the emergency department including a chest x-ray showing worsening multifocal airspace disease particularly in the right middle/upper lung zones as well as left perihilar region. This likely represents disease progression, with possible superimposed infectious process. CBC: WBC count of 6.8, hemoglobin 9, platelets 157. CMP: Sodium 135, potassium 3.7, chloride 96, serum bicarb 28, BUN 17, creatinine 0.65, glucose 115. Lactic was 2.6 and is down to 1. Troponin less than 0.012. NT proBNP 2360. EKG: Sinus tachycardia, rate 107 bpm, no acute ST segment elevations. Viral screen negative for influenza, RSV, COVID. Patient was placed on empiric antibiotics in the ED in the form of azithromycin and cefepime. Patient currently being evaluated in the emergency department. He is on room air. Nondistressed. He has been coughing up clear to yellow phlegm into a bottle. Denies sick contacts. Denies any fever/chills, hemoptysis, chest pain. Does report worsening lower extremity swelling. Appears the patient flipping in and out of atrial fibrillation with rapid ventricular response. He has known history of atrial fibrillation, and his ca rdiac medications are yet to be restarted. Denies chest pain, heart palpitations, lightheadedness/syncopal events, orthopnea, PND. Most recent available echocardiogram from 09/06/2023 demonstrating a preserved ejection fraction. Current most recent vital signs: Temperature 98.2 F, heart rate 90 bpm, blood pressure 103/78 mmHg, nontachypneic SpO2 reading 99% on room air. On 04/06/2024, the patient is being seen for a follow-up. Slightly improved compared to yesterday. Continues to have a cough and congestion in his chest. Sputum sample was given and the cultures are still pending for now. Remains to be bronchospastic and wheezy. No fever. No hemodynamic instability. No hemoptysis. The patient had a CAT scan of the chest yesterday and this was reviewed and it shows progression of his disease with increased soft tissue density throughout the mediastinum consistent with progression of his squamous cell carcinoma in addition to a cavitating suprahilar mass. He was receiving IV Gemzar on outpatient basis as palliative systemic chemotherapy. No other new complaints otherwise for now. Remains on DuoNeb. Remains on IV cefepime and Zithromax. He is also on IV Solu-Medrol 60 mg every 6 hours. No other significant events overnight. On 04/07/2024, the patient is being seen for a follow-up. Continues to have some cough and congestion although less compared to yesterday. The sputum sample is still pending for now. Noted the patient's procalcitonin level was not elevated and a pneumonia is felt to be less likely. His presentation is not related to COPD exacerbation and underlying lung cancer. The patient was receiving IV Gemzar regarding his lung cancer on outpatient basis. Feels well. No new complaints. Appetite is diminished. Currently on 2 L of oxygen by nasal cannula. White cell count is at 5.4 with a hemoglobin of 7.7, BUN 16 with a creatinine 0.59 and sodium was 132. LFTs are normal. No other significant events overnight. Blood cultures have been negative. On 04/08/2024, the patient is being seen for a follow-up. The patient is currently on oxygen and at 2 L/min nasal cannula. Continues to have cough and congestion and is still producing thick mucus. The patient is currently on clindamycin. The patient is on DuoNeb nebulized treatments [id number]. The patient on Symbicort. The patient remains on IV Solu-Medrol 60 mg IV push e very 6 hours. Sputum cultures have been negative. As mentioned, he is known to have underlying lung cancer, which is metastatic squamous cell carcinoma the patient has been receiving palliative chemotherapy with Gemzar. Blood work from today shows a white cell count of 7.8, hemoglobin 7.4 and platelet count of 257. BUN is 15 with a creatinine of 0.6. Sodium levels at 134. The patient is seen today April 09, 2024 in follow-up on the selective care unit. He is currently sitting up at the bedside. Awake and alert in no acute distress. Still quite dyspneic with minimal conversation. Dyspneic with minimal exertion. He is maintaining O2 saturations in the 90s on 3 L/min per nasal cannula. He is continued on DuoNeb and elations, Symbicort, Solu-Medrol. Antibiotics in the form of clindamycin. White count 8.4. Hemoglobin 7.5. Platelets 292. Sodium 134. Potassium 3.3. Bicarb 31. BUN 16. Creatinine 0.63. Glucose 135. He is anticoagulated with Eliquis. Remains on IV diur etics. Currently in a -1.8 L balance. The patient is seen today April 10, 2024 in follow-up on the selective care unit. He is currently resting in bed. Awake and alert in no acute distress. Continues with significant cough and congestion. Unable to clear his secretions. Is in the 90s on 4 L/min per nasal cannula. He is been afebrile. Hemodynamically stable. Sputum culture revealed no growth. Blood culture revealed no growth.. Hemoglobin 8.0. Platelets 319. Sodium 134. Potassium 3.9. Bicarb 35. BUN 12. Creatinine 0.54. Glucose 116. He remains on DuoNeb inhalations, Symbicort, Solu-Medrol. Remains on IV diuretics. Remains on antibiotics in the form of clindamycin. Anticoagulated with Eliquis. The patient is seen today April 11, 2024 in follow-up on the selective care unit. He is awake and alert in no acute distress. Continues with a loose congested cough. Plan is for bronchoscopy with BAL today with Dr. Kumar. He is maintaining O2 saturations in the 90s on 4 L/min per nasal cannula. He has been afebrile. Hemodynamically stable. White count 10.2. Hemoglobin 7.8. Platelets 305. Sodium 134. Potassium 3.9. Bicarb 36. BUN 18. Creatinine 0.54. Glucose 106. He is continued on DuoNeb and elations, Symbicort, Solu- Medrol. Remains on IV diuretics. Remains on clindamycin. Eliquis will be resumed postprocedure. The patient is seen today April 13, 2024 in follow-up on the regular medical floor. He was transferred off the selective care unit yesterday. He is sitting up in bed. Awake and alert in no acute distress. Maintaining good O2 saturations in the 90s on 4 L/min per nasal cannula. He is afebrile. Hemodynamically stable. Sputum culture revealed no growth. Blood culture revealed no growth. Bronchial wash cultures revealed no growth. White count 17.0. Hemoglobin 8.5. Platelets 350. Sodium 133. Potassium 4.0. Bicarb 32. BUN 23. Creatinine 0.37. Glucose 158. He is continued on DuoNeb inhalations, Symbicort, Solu-Medrol. Remains on IV diuretics. Remains anticoagulated with Eliquis. Patient was seen today and 04/14/2024, patient had to be transferred last night to the ICU mostly because of intermittent episodes of shortness of breath, coughing, wheezing, extremely agitated, and constant cough. Patient was placed on 50 L Airvo with O2 sat in the 85% range, however he is extremely restless and agitated and continuously coughing. After evaluating the patient, I recommended 1 mg of Ativan I also recommended a Precedex drip. Risks patient does not calm down, may have to consider intubation mechanical ventilation. However his overall prognosis extremely poor, and I am afraid once the patient is intubated his prognosis becomes even extremely worse. His WBC count today is 19.1 hemoglobin 8.7 electrolytes are normal renal profile is normal bicarb is 34 chest x-ray continues to show significant airspace disease involving the right upper lobe and the right lower lobe and right midlung and to some extent the left perihilar area. Clearly the patient has significant airspace disease but mostly the right upper lobe where his initial cancer was present and he had radiation treatment to that right upper lobe. Patient was seen today on 04/15/2024, patient remains in the ICU, however yesterday his clinical condition deteriorated, patient continued to have cough shortness of breath, he was desaturated, and he was not responding to Precedex anymore. Patient was in quite a bit of respiratory distress, hence I recommended immediate intubation and mechanical ventilation. Patient is now intubated mechanically ventilated on assist-control rate of 20 tidal volume 400 FiO2 100% and PEEP of 5 ABG showed a pO2 of 159 pCO2 49 pH of 7.40 FiO2 was cut down to 60% PEEP at 5. Chest x-ray this morning showed right greater than left perihilar airspace opacities may have worsened in comparison to previous chest x-ray. No pleural effusion and no pneumothorax. Patient is requiring norepinephrine at 0.12 mcg/kg/min he is also on propofol at 50 mcg/kg/min. He has a urine output of 35 cc/h. Repeat sputum cultures are pending, patient had a recent bronchoscopy and BAL, cultures came back negative, and the patient has been on antibiotics all along. Patient has leukocytosis with WC count of 19 he moglobin 9.1. Basic metabolic profile is normal BUN is 26 creatinine 0.52 bicarb is 32. The patient is seen today April 16, 2024 in follow-up in the intensive care unit. He remains intubated on the mechanical ventilator. Currently on assist-control mode at a rate of 20, tidal volume 400, FiO2 60% and a PEEP of 5. Morning blood gases revealed a PaO2 of 100, pCO2 39 and a pH of 7.51. He remains sedated on propofol at 40 mcg/kg/min. He is requiring norepinephrine at 0.09 mcg/kg/min. Chest x-ray shows similar multifocal airspace opacities/consolidation with right greater than left. Sputum cultures revealed no growth. Bronchoalveolar lavage cultures revealed no growth. Blood cultures revealed no growth. Follow-up sputum culture pending. White count 18.4. Hemoglobin 8.6. Platelets 264. Sodium 134. Potassium 3.5. Bicarb 31. BUN 20. Creatinine 0.45. Glucose 90. He is continued on DuoNeb inhalations, Symbicort, Solu-Medrol. Remains on IV Lasix. Anticoagulated with Eliquis. The patient is seen today April 17, 2024 in follow-up in the intensive care unit. He remains intubated on the mechanical ventilator. Currently in assist-control mode at a rate of 20, tidal volume 400, FiO2 60% and a PEEP of 5. Morning blood gases revealed a PaO2 of 115, pCO2 43 and a pH of 7.48. He is sedated on propofol at 40 mcg/kg/min. He is being nourished with vital HP at 40 mL/h with a goal of 55 mL/h. X-ray reveals no significant change in the multifocal airspace opacities/consolidation in the right greater than left lung. Sputum cultures revealed no growth. White count 24.1. Hemoglobin 8.5. Platelets 271. Sodium 134. Potassium 4.0. Bicarb 33. BUN 28. Creatinine 0.49. Glucose 142. He remains on DuoNeb inhalations, Symbicort, Solu-Medrol. Remains on IV diuretics. Anticoagulated with Eliquis. The patient is seen today April 18, 2024 in follow-up in the intensive care unit. He remains intubated bated on the mechanical ventilator. Remains on assist- control mode with a rate of 20, tidal volume 400, FiO2 50% and a PEEP of 5. Arterial blood gases revealed PaO2 of 89, pCO2 41 and a pH of 7.52. He has had daily interruption of sedation which is poorly tolerated with tachypnea, tachycardia and hypertension and restlessness. He remains sedated on propofol at 50 mcg/kg/min. Normal saline at 20 mL/h. He is being nourished with vital HP at 55 mL/h which is his goal. White count 23.4. Hemoglobin 8.1. Platelets 268. Sodium 135. Potassium 4.4. Bicarb 33. BUN 40. Creatinine 0.44. Glucose 205. He remains on DuoNeb inhalations, Symbicort, Solu-Medrol. Remains on IV diuretics. Anticoagulated with Eliquis. Chest x-ray continues to show multi focal airspace opacity/consolidation right greater than left. Objective - Vital Signs Vital signs: Vital Signs Temp 98.8 F 04/18/24 04:00 Pulse 105 H 04/18/24 11:00 Resp 20 04/18/24 11:00 BP 147/83 04/18/24 11:00 Pulse Ox 94 L 04/18/24 11:00 FiO2 50 04/18/24 11:26 Intake & Output 04/17/24 04/18/24 04/18/24 18:59 06:59 18:59 Intake Total 3055.865 0667.649 263.079 Output Total 920 415 140 Balance 107.814 729.649 123.079 Weight 61.2 kg Intake: IV 299 253 115 0.9 Normal Saline - 39 33 15 Pressure Bag 0.9 Normal Saline @ KVO 260 220 100 Intake, IV Titration 158.814 196.649 8.079 Amount Norepinephrine 4 mg In 23.357 Sodium Chloride 0.9% 250 ml @ 0.03 MCG/KG/MIN 6. 972 mls/hr IV .Q24H [facility] Rx#:[id number] propofoL 1,000 mg In 158.814 173.292 8.079 Empty Bag 1 bag @ 15 MCG/ KG/MIN 5.49 mls/hr IV . [id number] [facility] Rx#:[id number] Tube Feeding 480 605 110 Other 90 90 30 Output: Urine 920 415 140 Other: Voiding Method Indwelling Catheter Indwelling Catheter Indwelling Catheter # Bowel Movements 1 ABP, PAP, CO, CI - Last Documented Arterial Blood Pressure 116/55 - Exam GENERAL EXAM: Intubated, sedated 63-year-old male patient, on the mechanical ventilator, in no apparent distress. HEAD: Normocephalic. EYES: Normal reaction of pupils, equal size. NOSE: Clear with pink turbinates. THROAT: Endotracheal and gastric tube secured in place. No erythema or exudates. NECK: No masses, no JVD. CHEST: No chest wall deformity. LUNGS: Equal air entry with bilateral scattered rhonchi more so on the right lung. CVS: S1 and S2 normal with no audible murmur, regular rhythm. ABDOMEN: No hepatosplenomegaly, normal bowel sounds, no guarding or rigidity. SPINE: No scoliosis or deformity SKIN: No rashes CENTRAL NERVOUS SYSTEM: Sedated, tone is normal in all 4 extremities. EXTREMITIES: There is 1+ peripheral edema. No clubbing, no cyanosis. Pe ripheral pulses are intact. - Labs CBC & Chem 7: 04/18/24 05:25 04/18/24 05:25 Labs: Abnormal Lab Results - Last 24 Hours (Table) 04/17/24 04/17/24 04/17/24 Range/Units 17:05 17:19 23:19 WBC (3.8-10.6) k/uL RBC (4.30-5.90) m/uL Hgb (13.0-17.5) gm/dL Hct (39.0-53.0) % MCHC (31.0-37.0) g/dL RDW (11.5-15.5) % Neutrophils # (1.3-7.7) k/uL Lymphocytes # (1.0-4.8) k/uL ABG pH (7.35-7.45) ABG HCO3 (21-25) mmol/L ABG Total CO2 (19-24) mmol/L ABG O2 Saturation (94-97) % Hemoglobin (13.0-17.5) gm/dL Sodium (137-145) mmol/L Chloride (98-107) mmol/L Carbon Dioxide (22-30) mmol/L BUN (9-20) mg/dL Creatinine (0.66-1.25) mg/dL Glucose (74-99) mg/dL POC Glucose (mg/dL) 219 H 222 H 253 H (70-110) mg/dL 04/18/24 04/18/24 04/18/24 Range/Units 04:59 05:25 05:25 WBC 23.4 H (3.8-10.6) k/uL RBC 2.91 L (4.30-5.90) m/uL Hgb 8.1 L (13.0-17.5) gm/dL Hct 28.3 L (39.0-53.0) % MCHC 28.5 L (31.0-37.0) g/dL RDW 21.6 H (11.5-15.5) % Neutrophils # 22.5 H (1.3-7.7) k/uL Lymphocytes # 0.1 L (1.0-4.8) k/uL ABG pH 7.52 H (7.35-7.45) ABG HCO3 34 H (21-25) mmol/L ABG Total CO2 35 H (19-24) mmol/L ABG O2 Saturation 97.4 H (94-97) % Hemoglobin 8.0 L (13.0-17.5) gm/dL Sodium 135 L (137-145) mmol/L Chloride 96 L (98-107) mmol/L Carbon Dioxide 33 H (22-30) mmol/L BUN 40 H (9-20) mg/dL Creatinine 0.44 L (0.66-1.25) mg/dL Glucose 205 H (74-99) mg/dL POC Glucose (mg/dL) (70-110) mg/dL Microbiology - Last 24 Hours (Table) 04/15/24 12:35 Gram Stain - Preliminary Sputum Sputum Culture - Preliminary Assessment and Plan Assessment: Acute on chronic shortness of breath, chest x-ray showing worsening multifocal airspace disease particularly in the right middle/upper lung zones, as well as, left perihilar region. This likely represents disease progression, superimposed infectious process is not excluded. Bronchoscopy done 04/11/2024, cultures revealing no growth. He did deteriorate requiring intubation mechanical ventilatory support early in the morning on April 15, 2024 Recent bronchoscopy, January 23, negative for cytology and microbiology positive for MSSA. Completed antibiotics Metastatic squamous cell carcinoma of the lung, diagnosed initially 2020. Patient previously treated with chemo/radiation. Patient is restarted on systemic therapy and the patient is currently on IV Gemzar. Follow-up CAT scan of the chest done on 04/05/2024 is consistent with disease progression regarding his squamous cell carcinoma as noted. Moderate chronic obstructive pulmonary disease, with an FEV1 51% of predicted Paroxysmal atrial fibrillation, transient bouts of RVR on monitor Bilateral lower extremity edema Chronic anemia, hemoglobin stable History of hypertension History of hyperlipidemia History of CAD with previous PCI/stent History of ischemic cardiomyopathy, most recent available echocardiogram from August, showing improvement in left ventricular ejection fraction of 55 to 60% Chronic and ongoing tobacco dependence. Plan: The patient was seen and evaluated Chest x-ray, ABG, labs and medications reviewed Has not tolerated daily interruption of sedation Continue propofol Continue bronchodilators, steroids Continue IV diuretics Anticoagulated with Eliquis Protonix for GI prophylaxis Overall prognosis remains poor May require tracheostomy and PEG tube placement I have personally seen and examined the patient, performed the documentation and the assessment and plan as written. Number of minutes spent on the visit: 15 Dictation was produced using [employer] dictation software. Please excuse any grammatical, word or spelling errors.
[2024-04-18 12:00] LABS: Glucose,Whole Blood 239 mg/dL (70-110)
[2024-04-18 12:00] LABS: Glucose,Whole Blood 219 mg/dL (70-110)
--- NOTE | 2024-04-18 14:55 | P.PN ---
Subjective Progress Note Date: 04/18/24 Hospital Course: Patient is a pleasant 63-year-old male with a past medical history of squamous cell carcinoma of lung currently undergoing chemotherapy, COPD not home oxygen dependent, CAD status post stenting, ischemic cardiomyopathy, paroxysmal atrial fibrillation on anticoagulation with Eliquis, chronic diastolic heart failure, hypertension, hyperlipidemia, and nicotine dependence.. He reports following with assurance auditor/oncologist Dr. Hoyos and states last chemotherapy treatment was 1 week ago tomorrow. He presented to the emergency department on 04/04/2024 secondary to reports of shortness of breath accompanied by worsening cough with production of yellowish-brown sputum. Upon arrival to our facility, patient underwent evaluation in the emergency department. Vital signs upon arrival showing blood pressure 119/82, heart rate 111, respiratory rate 22, temp 98.2 F, and SpO2 of 99% on room air. EKG completed showing sinus tachycardia at 107 bpm with repeat EKG showing atrial fibrillation with RVR at 133 bpm T wave inversion in lateral leads I, aVL, V5 and V6.. Chest x-ray showing moderate amount of airspace opacities in bilateral lungs concentrated in the right middle/upper lung zones and left perihilar regions suggestive of pneumonia. Labs completed and reviewed. CBC showing normocytic anemia with hemoglobin of 9.0 chronic and at baseline. Coagulation profile normal findings. BMP showing hypochloremic hyponatremia with sodium of 135 and chloride of 96. Blood glucose 115. Lactic acid 2.6. Magnesium 2.0. Liver profile unremarkable. Troponin was negative at less than 0.012 and proBNP was 2360. Influenza A, influenza B, RSV, and COVID PCR negative. CT chest with IV contrast completed showing increasing soft tissue density throughout the mediastinum encasing vessels and bronchi, a 1.4 cm paratracheal mass with subtle hypodense center may be a necrotic lymph node versus soft tissue mass, increasing lung findings suspicious for metastatic disease and increasing pericardial effusion. Patient admitted under our services with consultation to pulmonology and oncology. he was started on clindamycin Status post BAL on 04/11, significant necrotic tissue noted in the whole right upper lobe, related to his cancer, radiation treatment, similar changes noted in the left mainstem bronchus, carinal area. Cultures and cytology pending 04/14/2024 rapid response was called for respiratory distress. Patient desaturated to low 80s,was tachepneic with coughing spells, was placed on nasal cannula 15 L, then advance to Air, satting in mid 90s. His blood pressure remained stable. He was provided with his morning dose of Lasix 40 IV once, breathing treatment, 1 dose of Ativan 0.5 IV, patient noted he was panicking, no beds on 3 S. available, patient was transferred to the ICU as overflow. Chest x-ray during rapid response was done and corrected by me as below. I addressed patient's CODE STATUS again, explained the nature of resuscitation process, patient stated that he wants to remain full code at this time. We did discuss his significant comorbidities, chances of survival and meaningful recovery after resuscitation. 04/15: Patient was intubated overnight for respiratory distress, tachypnea, was started on propofol, required levo at 0.14. Bright red blood was noted per NG, small amount, morning Eliquis held. Blood stopped, patient was noted to have stable hemoglobin and bilious discharge from OG tube, resumed Eliquis. 04/16 was provided with additional dose of IV Lasix for decreased urine output. Chest x-ray showed no significant changes, ETT 5.8 cm above the teresa Subjective: Intubated and sedated General: intubated, sedated, chronically ill-appearing Derm: Skin warm and dry, normal coloration for ethnicity. Head: Atraumatic, normocephalic and symmetric. Eyes: no lid lag, and anicteric sclera Mouth: no lip lesions, mucus membranes moist, ETT, OG Cardiovascular: regular rate and rhythm with normal S1S2, no murmur Lungs: Bilateral air entry, diffuse scattered rhonchi Ext: ROM intact. No gross muscle atrophy, 1+ pitting edema, no contractures. Neuro: Unable to assess, intubated and sedated Psych: unAble to assess, intubated and sedated CBC and BMP significant for WBC 23.4, RBC 2.91, Hg 8.1, Hct 28.3, Na 135, Cl 96, bicarb 33, BUN 40, Cr 0.44, glu 205. ABG pH 7.52, pCO2 41, pO2 97.4 on FiO2 50%. Assessment and Plan of Care: Acute hypoxic respiratory failure requiring intubation 3/2 COPD with acute exacerbation Metastatic squamous cell carcinoma of lung Concerns for possible pneumonia, recent bronchoscopy completed positive for MSSA -Pulmonology following -Continue vent management per ICU -Telemetry monitoring. -Continue breathing treatment -Steroids: Solu-Medrol 60 mg IVP daily -Urine Legionella negative. Sputum culture showing no growth. Blood culture negative showing no growth after 5 days. -Continue Clindamycin 450 mg every 6 hours per recommendations of pulmonolgy due to inability to completely rule out underlying infectious process. SOT 04/07 -Oncology following, plan to continue with third cycle of Gemzar once acutely recovered -BAL cultures and cytology from 04/11 negative -Continue sedation, wean off as tolerated -Continue D5 infusion, tolerated -Overall prognosis is poor -Hold IV Lasix 40 this morning Coffee-ground discharge per OG tube, resolved -Hemoglobin stable, continue Eliquis and PPIs Acute on chronic diastolic heart failure with mild exacerbation CAD status post stenting Paroxysmal atrial fibrillation Hypertension Hyperlipidemia -Continue Lasix 40 mg IVP daily. -Monitor vital signs and continue daily medication regimen with amiodarone 200 mg daily, continue Eliquis 5 mg twice daily, continue atorvastatin 80 mg nightly, and metoprolol 12.5 mg twice daily, Severe protein calorie malnutrition -Protein 5.1 and albumin 2.6. Severe protein calorie malnutrition likely secondary to advanced squamous cell carcinoma of the lung with metastasis and decreased oral intake. -Patient started on protein supplements 3 times daily between meals and consult placed to dietitian. Nicotine dependence -Patient reported that he has cut back significantly on smoking and declined wanting nicotine patch at this time. CODE STATUS: Full code DVT prophylaxis: Eliquis Anticipated discharge date: tbd Anticipated discharge place: tbd Objective - Vital Signs Vital signs: Vital Signs Temp 99.1 F 04/18/24 12:00 Pulse 98 04/18/24 14:00 Resp 20 04/18/24 14:00 BP 97/57 04/18/24 14:00 Pulse Ox 96 04/18/24 14:00 FiO2 50 04/18/24 14:00 Intake & Output 04/17/24 04/18/24 04/18/24 18:59 06:59 18:59 Intake Total 4293.065 4469.649 582.079 Output Total 920 415 615 Balance 107.814 729.649 -32.921 Weight 61.2 kg Intake: IV 299 253 184 0.9 Normal Saline - 39 33 24 Pressure Bag 0.9 Normal Saline @ KVO 260 220 160 Intake, IV Titration 158.814 196.649 8.079 Amount Norepinephrine 4 mg In 23.357 Sodium Chloride 0.9% 250 ml @ 0.03 MCG/KG/MIN 6. 972 mls/hr IV .Q24H [facility] Rx#:[id number] propofoL 1,000 mg In 158.814 173.292 8.079 Empty Bag 1 bag @ 15 MCG/ KG/MIN 5.49 mls/hr IV . [id number] [facility] Rx#:[id number] Tube Feeding 480 605 330 Other 90 90 60 Output: Urine 920 415 615 Other: Voiding Method Indwelling Catheter Indwelling Catheter Indwelling Catheter # Bowel Movements 1 ABP, PAP, CO, CI - Last Documented Arterial Blood Pressure 101/53 - Labs CBC & Chem 7: 04/18/24 05:25 04/18/24 05:25 Labs: Abnormal Lab Results - Last 24 Hours (Table) 04/17/24 04/17/24 04/17/24 Range/Units 17:05 17:19 23:19 WBC (3.8-10.6) k/uL RBC (4.30-5.90) m/uL Hgb (13.0-17.5) gm/dL Hct (39.0-53.0) % MCHC (31.0-37.0) g/dL RDW (11.5-15.5) % Neutrophils # (1.3-7.7) k/uL Lymphocytes # (1.0-4.8) k/uL ABG pH (7.35-7.45) ABG HCO3 (21-25) mmol/L ABG Total CO2 (19-24) mmol/L ABG O2 Saturation (94-97) % Hemoglobin (13.0-17.5) gm/dL Sodium (137-145) mmol/L Chloride (98-107) mmol/L Carbon Dioxide (22-30) mmol/L BUN (9-20) mg/dL Creatinine (0.66-1.25) mg/dL Glucose (74-99) mg/dL POC Glucose (mg/dL) 219 H 222 H 253 H (70-110) mg/dL 04/18/24 04/18/24 04/18/24 Range/Units 04:59 05:25 05:25 WBC 23.4 H (3.8-10.6) k/uL RBC 2.91 L (4.30-5.90) m/uL Hgb 8.1 L (13.0-17.5) gm/dL Hct 28.3 L (39.0-53.0) % MCHC 28.5 L (31.0-37.0) g/dL RDW 21.6 H (11.5-15.5) % Neutrophils # 22.5 H (1.3-7.7) k/uL Lymphocytes # 0.1 L (1.0-4.8) k/uL ABG pH 7.52 H (7.35-7.45) ABG HCO3 34 H (21-25) mmol/L ABG Total CO2 35 H (19-24) mmol/L ABG O2 Saturation 97.4 H (94-97) % Hemoglobin 8.0 L (13.0-17.5) gm/dL Sodium 135 L (137-145) mmol/L Chloride 96 L (98-107) mmol/L Carbon Dioxide 33 H (22-30) mmol/L BUN 40 H (9-20) mg/dL Creatinine 0.44 L (0.66-1.25) mg/dL Glucose 205 H (74-99) mg/dL POC Glucose (mg/dL) (70-110) mg/dL 04/18/24 04/18/24 Range/Units 11:57 11:59 WBC (3.8-10.6) k/uL RBC (4.30-5.90) m/uL Hgb (13.0-17.5) gm/dL Hct (39.0-53.0) % MCHC (31.0-37.0) g/dL RDW (11.5-15.5) % Neutrophils # (1.3-7.7) k/uL Lymphocytes # (1.0-4.8) k/uL ABG pH (7.35-7.45) ABG HCO3 (21-25) mmol/L ABG Total CO2 (19-24) mmol/L ABG O2 Saturation (94-97) % Hemoglobin (13.0-17.5) gm/dL Sodium (137-145) mmol/L Chloride (98-107) mmol/L Carbon Dioxide (22-30) mmol/L BUN (9-20) mg/dL Creatinine (0.66-1.25) mg/dL Glucose (74-99) mg/dL POC Glucose (mg/dL) 239 H 219 H (70-110) mg/dL Microbiology - Last 24 Hours (Table) 04/15/24 12:35 Gram Stain - Final Sputum Sputum Culture - Final
[2024-04-18 18:13] LABS: Glucose,Whole Blood 255 mg/dL (70-110)
[2024-04-19 00:03] LABS: Glucose,Whole Blood 178 mg/dL (70-110)
[2024-04-19 05:14] LABS: ABG Base Excess 11.2 mmol/L; ABG HCO3 36 mmol/L (21-25); ABG Oxygen Saturation 96.1 % (94-97); ABG PCO2 51 mmHg (35-45); ABG PH 7.46 (7.35-7.45); ABG PO2 82 mmHg (83-108); ABG TCO2 38 mmol/L (19-24)
[2024-04-19 05:16] LABS: Allen Test Performed? no
[2024-04-19 05:38] LABS: Anisocytosis Moderate; HCT 26.2 % (39.0-53.0); HGB 7.7 gm/dL (13.0-17.5); Hypochromasia Marked; MCH 28.9 pg (25.0-35.0); MCHC 29.3 g/dL (31.0-37.0); MCV 98.9 fL (80.0-100.0); Macrocytosis Moderate; Platelet Count 226 k/uL (150-450); Poikilocytosis Slight; RBC 2.65 m/uL (4.30-5.90); RDW 21.3 % (11.5-15.5); WBC 20.5 k/uL (3.8-10.6)
[2024-04-19 05:43] LABS: Glucose,Whole Blood 200 mg/dL (70-110)
[2024-04-19 06:13] LABS: African American GFR (CKD) >90 (>60 ml/min/1.73 sqM); Anion Gap 2 mmol/L; Blood Urea Nitrogen 39 mg/dL (9-20); Calcium 8.4 mg/dL (8.4-10.2); Carbon Dioxide 37 mmol/L (22-30); Chloride 97 mmol/L (98-107); Glucose 183 mg/dL (74-99); Magnesium 2.1 mg/dL (1.6-2.3); Non-African American GFR(CKD) >90 (>60 ml/min/1.73 sqM); Potassium 4.6 mmol/L (3.5-5.1); Sodium 136 mmol/L (137-145)
[2024-04-19 06:39] VITALS: TEMP 98
[2024-04-19 07:09] VITALS: BP 98/63
--- NOTE | 2024-04-19 07:42 | XR ---
EXAMINATION TYPE: XR chest 1V portable DATE OF EXAM: 04/19/2024 4:32 AM COMPARISON: Chest radiograph from one day prior. CLINICAL INDICATION: Male, 63 years old with history of mechanical ventilation; [facility] TECHNIQUE: XR chest 1V portable Frontal view of the chest. FINDINGS: Lungs/Pleura: There is no evidence of pleural effusion, focal consolidation, or pneumothorax. Pulmonary vascularity: Unremarkable. Heart/mediastinum: Cardiomediastinal silhouette is unremarkable. Musculoskeletal: No acute osseous pathology. Other findings: None Lines/Tubes: Endotracheal tube with distal tip 3.4 cm above the teresa. Nasogastric tube with its distal tip and side-port projecting under the diaphragm. IMPRESSION: Similar airspace opacities primarily around the right perihilar region may also to lesser extent the left.. [facility], , 04/19/2024 7:40 AM
[2024-04-19] MEDS ORDERED: EPINEPHrine 10 ML SYRINGE (0.1 MG/ML) ONE (09:08)
[2024-04-19 09:56] VITALS: PULSE 129; RESP 21
--- NOTE | 2024-04-19 10:17 | P.PN ---
Subjective Progress Note Date: 04/19/24 Patient is a 63-year-old male with past medical history significant for COPD, lung cancer, hypertension, hyperlipidemia, CAD with previous PCI/stents, ischemic cardiomyopathy, and atrial fibrillation anticoagulated on Eliquis. Patient is known to have metastatic non-small cell lung cancer. His oncologist is Dr. Hoyos. Treated in the past with chemo/radiation, and patient is currently on systemic therapy, 2 weeks on 1 week off. Of note, patient has had multiple recent hospitalizations, as well as, recent bronchoscopy with airway examination and BAL on January 23. [place] was positive for MSSA. More recently on 03/13/2024, patient was treated for right upper lobe pneumonia, possibly postobstructive, on an outpatient basis with a course of Levaquin by Dr. Kumar. Patient presents emergency department late last night with a chief complaint of shortness of breath. Associated productive cough with yellow sputum production. Workup in the emergency department including a chest x-ray showing worsening multifocal airspace disease particularly in the right middle/upper lung zones as well as left perihilar region. This likely represents disease progression, with possible superimposed infectious process. CBC: WBC count of 6.8, hemoglobin 9, platelets 157. CMP: Sodium 135, potassium 3.7, chloride 96, serum bicarb 28, BUN 17, creatinine 0.65, glucose 115. Lactic was 2.6 and is down to 1. Troponin less than 0.012. NT proBNP 2360. EKG: Sinus tachycardia, rate 107 bpm, no acute ST segment elevations. Viral screen negative for influenza, RSV, COVID. Patient was placed on empiric antibiotics in the ED in the form of azithromycin and cefepime. Patient currently being evaluated in the emergency department. He is on room air. Nondistressed. He has been coughing up clear to yellow phlegm into a bottle. Denies sick contacts. Denies any fever/chills, hemoptysis, chest pain. Does report worsening lower extremity swelling. Appears the patient flipping in and out of atrial fibrillation with rapid ventricular response. He has known history of atrial fibrillation, and his ca rdiac medications are yet to be restarted. Denies chest pain, heart palpitations, lightheadedness/syncopal events, orthopnea, PND. Most recent available echocardiogram from 09/06/2023 demonstrating a preserved ejection fraction. Current most recent vital signs: Temperature 98.2 F, heart rate 90 bpm, blood pressure 103/78 mmHg, nontachypneic SpO2 reading 99% on room air. On 04/06/2024, the patient is being seen for a follow-up. Slightly improved compared to yesterday. Continues to have a cough and congestion in his chest. Sputum sample was given and the cultures are still pending for now. Remains to be bronchospastic and wheezy. No fever. No hemodynamic instability. No hemoptysis. The patient had a CAT scan of the chest yesterday and this was reviewed and it shows progression of his disease with increased soft tissue density throughout the mediastinum consistent with progression of his squamous cell carcinoma in addition to a cavitating suprahilar mass. He was receiving IV Gemzar on outpatient basis as palliative systemic chemotherapy. No other new complaints otherwise for now. Remains on DuoNeb. Remains on IV cefepime and Zithromax. He is also on IV Solu-Medrol 60 mg every 6 hours. No other significant events overnight. On 04/07/2024, the patient is being seen for a follow-up. Continues to have some cough and congestion although less compared to yesterday. The sputum sample is still pending for now. Noted the patient's procalcitonin level was not elevated and a pneumonia is felt to be less likely. His presentation is not related to COPD exacerbation and underlying lung cancer. The patient was receiving IV Gemzar regarding his lung cancer on outpatient basis. Feels well. No new complaints. Appetite is diminished. Currently on 2 L of oxygen by nasal cannula. White cell count is at 5.4 with a hemoglobin of 7.7, BUN 16 with a creatinine 0.59 and sodium was 132. LFTs are normal. No other significant events overnight. Blood cultures have been negative. On 04/08/2024, the patient is being seen for a follow-up. The patient is currently on oxygen and at 2 L/min nasal cannula. Continues to have cough and congestion and is still producing thick mucus. The patient is currently on clindamycin. The patient is on DuoNeb nebulized treatments [id number]. The patient on Symbicort. The patient remains on IV Solu-Medrol 60 mg IV push e very 6 hours. Sputum cultures have been negative. As mentioned, he is known to have underlying lung cancer, which is metastatic squamous cell carcinoma the patient has been receiving palliative chemotherapy with Gemzar. Blood work from today shows a white cell count of 7.8, hemoglobin 7.4 and platelet count of 257. BUN is 15 with a creatinine of 0.6. Sodium levels at 134. The patient is seen today April 09, 2024 in follow-up on the selective care unit. He is currently sitting up at the bedside. Awake and alert in no acute distress. Still quite dyspneic with minimal conversation. Dyspneic with minimal exertion. He is maintaining O2 saturations in the 90s on 3 L/min per nasal cannula. He is continued on DuoNeb and elations, Symbicort, Solu-Medrol. Antibiotics in the form of clindamycin. White count 8.4. Hemoglobin 7.5. Platelets 292. Sodium 134. Potassium 3.3. Bicarb 31. BUN 16. Creatinine 0.63. Glucose 135. He is anticoagulated with Eliquis. Remains on IV diur etics. Currently in a -1.8 L balance. The patient is seen today April 10, 2024 in follow-up on the selective care unit. He is currently resting in bed. Awake and alert in no acute distress. Continues with significant cough and congestion. Unable to clear his secretions. Is in the 90s on 4 L/min per nasal cannula. He is been afebrile. Hemodynamically stable. Sputum culture revealed no growth. Blood culture revealed no growth.. Hemoglobin 8.0. Platelets 319. Sodium 134. Potassium 3.9. Bicarb 35. BUN 12. Creatinine 0.54. Glucose 116. He remains on DuoNeb inhalations, Symbicort, Solu-Medrol. Remains on IV diuretics. Remains on antibiotics in the form of clindamycin. Anticoagulated with Eliquis. The patient is seen today April 11, 2024 in follow-up on the selective care unit. He is awake and alert in no acute distress. Continues with a loose congested cough. Plan is for bronchoscopy with BAL today with Dr. Kumar. He is maintaining O2 saturations in the 90s on 4 L/min per nasal cannula. He has been afebrile. Hemodynamically stable. White count 10.2. Hemoglobin 7.8. Platelets 305. Sodium 134. Potassium 3.9. Bicarb 36. BUN 18. Creatinine 0.54. Glucose 106. He is continued on DuoNeb and elations, Symbicort, Solu- Medrol. Remains on IV diuretics. Remains on clindamycin. Eliquis will be resumed postprocedure. The patient is seen today April 13, 2024 in follow-up on the regular medical floor. He was transferred off the selective care unit yesterday. He is sitting up in bed. Awake and alert in no acute distress. Maintaining good O2 saturations in the 90s on 4 L/min per nasal cannula. He is afebrile. Hemodynamically stable. Sputum culture revealed no growth. Blood culture revealed no growth. Bronchial wash cultures revealed no growth. White count 17.0. Hemoglobin 8.5. Platelets 350. Sodium 133. Potassium 4.0. Bicarb 32. BUN 23. Creatinine 0.37. Glucose 158. He is continued on DuoNeb inhalations, Symbicort, Solu-Medrol. Remains on IV diuretics. Remains anticoagulated with Eliquis. Patient was seen today and 04/14/2024, patient had to be transferred last night to the ICU mostly because of intermittent episodes of shortness of breath, coughing, wheezing, extremely agitated, and constant cough. Patient was placed on 50 L Airvo with O2 sat in the 85% range, however he is extremely restless and agitated and continuously coughing. After evaluating the patient, I recommended 1 mg of Ativan I also recommended a Precedex drip. Risks patient does not calm down, may have to consider intubation mechanical ventilation. However his overall prognosis extremely poor, and I am afraid once the patient is intubated his prognosis becomes even extremely worse. His WBC count today is 19.1 hemoglobin 8.7 electrolytes are normal renal profile is normal bicarb is 34 chest x-ray continues to show significant airspace disease involving the right upper lobe and the right lower lobe and right midlung and to some extent the left perihilar area. Clearly the patient has significant airspace disease but mostly the right upper lobe where his initial cancer was present and he had radiation treatment to that right upper lobe. Patient was seen today on 04/15/2024, patient remains in the ICU, however yesterday his clinical condition deteriorated, patient continued to have cough shortness of breath, he was desaturated, and he was not responding to Precedex anymore. Patient was in quite a bit of respiratory distress, hence I recommended immediate intubation and mechanical ventilation. Patient is now intubated mechanically ventilated on assist-control rate of 20 tidal volume 400 FiO2 100% and PEEP of 5 ABG showed a pO2 of 159 pCO2 49 pH of 7.40 FiO2 was cut down to 60% PEEP at 5. Chest x-ray this morning showed right greater than left perihilar airspace opacities may have worsened in comparison to previous chest x-ray. No pleural effusion and no pneumothorax. Patient is requiring norepinephrine at 0.12 mcg/kg/min he is also on propofol at 50 mcg/kg/min. He has a urine output of 35 cc/h. Repeat sputum cultures are pending, patient had a recent bronchoscopy and BAL, cultures came back negative, and the patient has been on antibiotics all along. Patient has leukocytosis with WC count of 19 he moglobin 9.1. Basic metabolic profile is normal BUN is 26 creatinine 0.52 bicarb is 32. The patient is seen today April 16, 2024 in follow-up in the intensive care unit. He remains intubated on the mechanical ventilator. Currently on assist-control mode at a rate of 20, tidal volume 400, FiO2 60% and a PEEP of 5. Morning blood gases revealed a PaO2 of 100, pCO2 39 and a pH of 7.51. He remains sedated on propofol at 40 mcg/kg/min. He is requiring norepinephrine at 0.09 mcg/kg/min. Chest x-ray shows similar multifocal airspace opacities/consolidation with right greater than left. Sputum cultures revealed no growth. Bronchoalveolar lavage cultures revealed no growth. Blood cultures revealed no growth. Follow-up sputum culture pending. White count 18.4. Hemoglobin 8.6. Platelets 264. Sodium 134. Potassium 3.5. Bicarb 31. BUN 20. Creatinine 0.45. Glucose 90. He is continued on DuoNeb inhalations, Symbicort, Solu-Medrol. Remains on IV Lasix. Anticoagulated with Eliquis. The patient is seen today April 17, 2024 in follow-up in the intensive care unit. He remains intubated on the mechanical ventilator. Currently in assist-control mode at a rate of 20, tidal volume 400, FiO2 60% and a PEEP of 5. Morning blood gases revealed a PaO2 of 115, pCO2 43 and a pH of 7.48. He is sedated on propofol at 40 mcg/kg/min. He is being nourished with vital HP at 40 mL/h with a goal of 55 mL/h. X-ray reveals no significant change in the multifocal airspace opacities/consolidation in the right greater than left lung. Sputum cultures revealed no growth. White count 24.1. Hemoglobin 8.5. Platelets 271. Sodium 134. Potassium 4.0. Bicarb 33. BUN 28. Creatinine 0.49. Glucose 142. He remains on DuoNeb inhalations, Symbicort, Solu-Medrol. Remains on IV diuretics. Anticoagulated with Eliquis. The patient is seen today April 18, 2024 in follow-up in the intensive care unit. He remains intubated bated on the mechanical ventilator. Remains on assist- control mode with a rate of 20, tidal volume 400, FiO2 50% and a PEEP of 5. Arterial blood gases revealed PaO2 of 89, pCO2 41 and a pH of 7.52. He has had daily interruption of sedation which is poorly tolerated with tachypnea, tachycardia and hypertension and restlessness. He remains sedated on propofol at 50 mcg/kg/min. Normal saline at 20 mL/h. He is being nourished with vital HP at 55 mL/h which is his goal. White count 23.4. Hemoglobin 8.1. Platelets 268. Sodium 135. Potassium 4.4. Bicarb 33. BUN 40. Creatinine 0.44. Glucose 205. He remains on DuoNeb inhalations, Symbicort, Solu-Medrol. Remains on IV diuretics. Anticoagulated with Eliquis. Chest x-ray continues to show multi focal airspace opacity/consolidation right greater than left. The patient is seen today April 19, 2024 in follow-up in the intensive care unit. While we were rounding in the ICU the nurse called us to this patient's room as he started coughing and developed significant amount of hemoptysis through the endotracheal tube. There was significant bleeding and the patient developed hypotension and eventual PEA and a CODE BLUE was called. We were able to get return of spontaneous circulation after 1 round of CPR. He was initiated on norepinephrine and his blood pressure and oxygenation improved. We then performed emergent bronchoscopy and he was found to have significant clotting throughout the right upper lobe, right middle lobe and right lower lobe with poor lung volumes. There was clotting at the end of the endobronchial tube which we were able to remove though the volumes did not significantly improve. In the interim, Dr. Braga did speak with both his significant other and his son who is on the way to the hospital. He did make him a DO NOT RESUSCITATE should he arrest again. digital operations analyst chest x-ray revealed no evidence of pleural effusion, focal consolidation or pneumothorax. There is similar airspace opacities primarily around the right perihilar region and to a lesser extent the left. Current vent settings are assist-control mode with a rate of 22, tidal volume 400, FiO2 100% and a PEEP of 10. Earlier arterial blood gases revealed a PaO2 of 82, pCO2 of 51 and a pH of 7.46 on 50% FiO2. He remains sedated on propofol at 30 mcg per kilogram per minute. 226. Sodium 136. Potassium 4.6. Bicarb 37. BUN 39. Creatinine 0.48. Glucose 183. Objective - Vital Signs Vital signs: Vital Signs Temp 98.0 F 04/19/24 04:00 Pulse 129 H 04/19/24 09:45 Resp 21 04/19/24 09:00 BP 98/63 04/19/24 07:00 Pulse Ox 74 L 04/19/24 09:45 FiO2 100 04/19/24 09:53 Intake & Output 04/18/24 04/19/24 04/19/24 18:59 06:59 18:59 Intake Total 381.054 7813.339 Output Total 850 628 Balance 133.950 530.339 Weight 62.5 kg Intake: IV 276 299 0.9 Normal Saline - 36 39 Pressure Bag 0.9 Normal Saline @ KVO 240 260 Intake, IV Titration 67.950 24.339 Amount propofoL 1,000 mg In 67.950 24.339 Empty Bag 1 bag @ 15 MCG/ KG/MIN 5.49 mls/hr IV . [id number] [facility] Rx#:[id number] Tube Feeding 550 715 Other 90 120 Output: Urine 850 628 Other: Voiding Method Indwelling Catheter Indwelling Catheter ABP, PAP, CO, CI - Last Documented Arterial Blood Pressure 147/84 - Exam GENERAL EXAM: Intubated, sedated 63-year-old male, on the mechanical ventilator, status post significant hemoptysis and brief cardiac arrest. HEAD: Normocephalic. EYES: Normal reaction of pupils, equal size. NOSE: Clear with pink turbinates. THROAT: Endotracheal and gastric tube secured in place. No erythema or exudates. NECK: No masses, no JVD. CHEST: No chest wall deformity. LUNGS: Equal air entry with bilateral scattered rhonchi more so on the right lung. CVS: S1 and S2 normal with no audible murmur, regular rhythm. ABDOMEN: No hepatosplenomegaly, normal bowel sounds, no guarding or rigidity. SPINE: No scoliosis or deformity SKIN: No rashes CENTRAL NERVOUS SYSTEM: Sedated, tone is normal in all 4 extremities. EXTREMITIES: There is 1+ peripheral edema. No clubbing, no cyanosis. Periphe ral pulses are intact. - Labs CBC & Chem 7: 04/19/24 04:56 04/19/24 04:56 Labs: Abnormal Lab Results - Last 24 Hours (Table) 04/18/24 04/18/24 04/18/24 Range/Units 11:57 11:59 18:11 WBC (3.8-10.6) k/uL RBC (4.30-5.90) m/uL Hgb (13.0-17.5) gm/dL Hct (39.0-53.0) % MCHC (31.0-37.0) g/dL RDW (11.5-15.5) % ABG pH (7.35-7.45) ABG pCO2 (35-45) mmHg ABG pO2 (83-108) mmHg ABG HCO3 (21-25) mmol/L ABG Total CO2 (19-24) mmol/L Hemoglobin (13.0-17.5) gm/dL Sodium (137-145) mmol/L Chloride (98-107) mmol/L Carbon Dioxide (22-30) mmol/L BUN (9-20) mg/dL Creatinine (0.66-1.25) mg/dL Glucose (74-99) mg/dL POC Glucose (mg/dL) 239 H 219 H 255 H (70-110) mg/dL 04/18/24 04/19/24 04/19/24 Range/Units 23:50 04:56 04:56 WBC 20.5 H (3.8-10.6) k/uL RBC 2.65 L (4.30-5.90) m/uL Hgb 7.7 L (13.0-17.5) gm/dL Hct 26.2 L (39.0-53.0) % MCHC 29.3 L (31.0-37.0) g/dL RDW 21.3 H (11.5-15.5) % ABG pH (7.35-7.45) ABG pCO2 (35-45) mmHg ABG pO2 (83-108) mmHg ABG HCO3 (21-25) mmol/L ABG Total CO2 (19-24) mmol/L Hemoglobin (13.0-17.5) gm/dL Sodium 136 L (137-145) mmol/L Chloride 97 L (98-107) mmol/L Carbon Dioxide 37 H (22-30) mmol/L BUN 39 H (9-20) mg/dL Creatinine 0.48 L (0.66-1.25) mg/dL Glucose 183 H (74-99) mg/dL POC Glucose (mg/dL) 178 H (70-110) mg/dL 04/19/24 04/19/24 Range/Units 05:10 05:41 WBC (3.8-10.6) k/uL RBC (4.30-5.90) m/uL Hgb (13.0-17.5) gm/dL Hct (39.0-53.0) % MCHC (31.0-37.0) g/dL RDW (11.5-15.5) % ABG pH 7.46 H (7.35-7.45) ABG pCO2 51 H (35-45) mmHg ABG pO2 82 L (83-108) mmHg ABG HCO3 36 H (21-25) mmol/L ABG Total CO2 38 H (19-24) mmol/L Hemoglobin 7.5 L (13.0-17.5) gm/dL Sodium (137-145) mmol/L Chloride (98-107) mmol/L Carbon Dioxide (22-30) mmol/L BUN (9-20) mg/dL Creatinine (0.66-1.25) mg/dL Glucose (74-99) mg/dL POC Glucose (mg/dL) 200 H (70-110) mg/dL Microbiology - Last 24 Hours (Table) 04/15/24 12:35 Gram Stain - Final Sputum Sputum Culture - Final Assessment and Plan Assessment: Acute hemoptysis, suspect bronchial artery bleed, with hypotension and PEA with brief cardiac arrest with return of spontaneous circulation after 1 round of CPR. Emergent bronchoscopy revealed significant clotting throughout the right upper lobe, middle lobe and lower lobe and clots at the end of the endotracheal tube which were removed. Still with poor lung volumes on the mechanical ventilator. Acute on chronic shortness of breath, chest x-ray showing worsening multifocal airspace disease particularly in the right middle/upper lung zones, as well as, left perihilar region. This likely represents disease progression, superimposed infectious process is not excluded. Bronchoscopy done 04/11/2024, cultures revealing no growth. He did deteriorate requiring intubation mechanical ventilatory support early in the morning on April 15, 2024 Recent bronchoscopy, January 23, negative for cytology and microbiology positive for MSSA. Completed antibiotics Metastatic squamous cell carcinoma of the lung, diagnosed initially 2020. Janay ent previously treated with chemo/radiation. Patient is restarted on systemic therapy and the patient is currently on IV Gemzar. Follow-up CAT scan of the chest done on 04/05/2024 is consistent with disease progression regarding his squamous cell carcinoma as noted. Moderate chronic obstructive pulmonary disease, with an FEV1 51% of predicted Paroxysmal atrial fibrillation, transient bouts of RVR on monitor Bilateral lower extremity edema Chronic anemia, hemoglobin stable History of hypertension History of hyperlipidemia History of CAD with previous PCI/stent History of ischemic cardiomyopathy, most recent available echocardiogram from August, showing improvement in left ventricular ejection fraction of 55 to 60% Chronic and ongoing tobacco dependence. Plan: The patient was seen and evaluated Chest x-ray, ABG, labs and medications reviewed The patient developed significant hemoptysis Brief cardiac arrest due to hypotension and PEA Currently recovered and on norepinephrine Continues with low lung volumes on the mechanical ventilator due to clotting His significant other and son were both notified He is now a DNR CODE STATUS Continue propofol Continue bronchodilators, steroids Continue IV diuretics Discontinue the Eliquis Protonix for GI prophylaxis Overall prognosis remains very poor I have personally seen and examined the patient, performed the documentation and the assessment and plan as written. Number of minutes spent on the visit: 15 Dictation was produced using [employer] software. Please excuse any grammatical, word or spelling errors.
[2024-04-19] MEDS ORDERED: MORPHINE SULFATE 2 MG/ML SYRINGE IVP PRN (12:19)
[2024-04-19] MEDS ORDERED: LORazepam 1 MG TAB PO PRN (12:19)
[2024-04-19] MEDS ORDERED: MORPHINE SULFATE 4 MG/ML SYRINGE IVP PRN (12:19)
[2024-04-19] MEDS ORDERED: GLYCOPYRROLATE 0.2 MG/ML 2 ML VIAL IVP PRN (12:19)
[2024-04-19] MEDS ORDERED: MORPHINE SULFATE 100 MG in SODIUM CHLORIDE 0.9% 90 ML IV SCH (12:30)
[2024-04-19] MEDS: ATROPINE OPHTH SOLN 1% 5ML BTL SUBLINGUAL PRN (13:05)
[2024-04-19] MEDS: LORazepam 2 MG/ML INJ IV PRN (13:08)
[2024-04-19] MEDS: MORPHINE SULFATE 4 MG/ML SYRINGE IVP STA (13:08)
[2024-04-19] MEDS ORDERED: LORazepam 2 MG/ML INJ IV PRN ×2 (13:17)
[2024-04-19] MEDS ORDERED: LORazepam 1 MG/0.5 ML VIAL IV PRN ×2 (15:13→15:14)
--- NOTE | 2024-04-19 17:34 | P.DS ---
Providers Date of admission: 04/05/24 00:14 Expected date of discharge: 04/19/24 Attending physician: Greg Suarez MD Consults: 04/05/24 00:11 Consult Physician Urgent Consulting Provider: Anand Durbin Consult Reason/Comments: pneumonia, hx lung cancer on chemo Do you want consulting provider notified?: Yes 04/05/24 04:23 Consult Physician Routine Consulting Provider: Juan Carlos Hoyos Consult Reason/Comments: Known; lung cancer Do you want consulting provider notified?: Yes Primary care physician: Eduardo Parsons MD Hospital Course: note: 63-year-old male with PMH of squamous cell carcinoma of lung currently undergoing chemotherapy, COPD not home oxygen dependent, CAD status post stenting, ischemic cardiomyopathy, paroxysmal atrial fibrillation on anticoagulation with Eliquis, chronic diastolic heart failure, hypertension, hyperlipidemia, and nicotine dependence.. He reports following with meter maintenance person/oncologist Dr. Hoyos and states last chemotherapy treatment was 1 week ago tomorrow. He presented to the emergency department on 04/04/2024 secondary to reports of shortness of breath accompanied by worsening cough with production of yellowish-brown sputum. Upon arrival to our facility, patient underwent evaluation in the emergency department. Vital signs upon arrival showing blood pressure 119/82, heart rate 111, respiratory rate 22, temp 98.2 F, and SpO2 of 99% on room air. EKG completed showing sinus tachycardia at 107 bpm with repeat EKG showing atrial fibrillation with RVR at 133 bpm T wave inversion in lateral leads I, aVL, V5 and V6. Chest x-ray showing moderate amount of airspace opacities in bilateral lungs concentrated in the right middle/upper lung zones and left perihilar regions suggestive of pneumonia. Labs completed and reviewed. CBC showing normocytic anemia with hemoglobin of 9.0 chronic and at baseline. Coagulation profile normal findings. BMP showing hypochloremic hyponatremia with sodium of 135 and chloride of 96. Blood glucose 115. Lactic acid 2.6. Magnesium 2.0. Liver profile unremarkable. Troponin was negative at less than 0.012 and proBNP was 2360. Influenza A, influenza B, RSV, and COVID PCR negative. CT chest with IV contrast completed showing increasing soft tissue density throughout the mediastinum encasing vessels and bronchi, a 1.4 cm paratracheal mass with subtle hypodense center may be a necrotic lymph node versus soft tissue mass, increasing lung findings suspicious for metastatic disease and increasing pericardial effusion. Patient admitted under our services with consultation to pulmonology and oncology. He was started on antibiotics and admitted for further workup and management. Underwent bronchoscopy with BAL on 04/11, significant necrotic tissue noted in the whole right upper lobe, related to his cancer, radiation treatment, similar changes noted in the left mainstem bronchus and carinal area. His respiratory status worsened and he was intubated on 04/15. He had difficulty with extubation. PRIETO HOYT called on 04/19 for massive hematemesis. He underwent bedside bronchosopy with Dr. Braga with difficult time removing blood clots from the lung. The case was discussed with Dr. Braga and family who elected to make the patient DNR. Patient at 13:27 on 04/19/2024. Discharge Diagnosis: Hematemesis Acute hypoxic respiratory failure requiring intubation 04/15 COPD with acute exacerbation Metastatic squamous cell carcinoma of lung Concerns for possible pneumonia, recent bronchoscopy completed positive for MSSA Acute on chronic diastolic heart failure with mild exacerbation CAD status post stenting Paroxysmal atrial fibrillation Hypertension Hyperlipidemia Severe protein calorie malnutrition Nicotine dependence Plan - Discharge Summary Discharge Rx Participant: Yes New Discharge Prescriptions: No Action Spiriva Respimat 1.25mcg/Actuation Mist 2 puff INHALATION RT-HS #0 Omeprazole [PriLOSEC] 40 mg PO DAILY PRN PRN Reason: GERD Cholecalciferol [Vitamin D3 (25 Mcg = 1000 Iu)] 50 mcg PO DAILY Metoprolol Tartrate [Lopressor] 12.5 mg PO BID PRN PRN Reason: HIGH BP Budesonide-Formot 160-4.5 Mcg [Symbicort 160-4.5 Mcg Inhaler] 2 puff INHALATION RT-BID #1 each Atorvastatin [Lipitor] 80 mg PO HS Hydrocodone/Acetaminophen [Hydrocodone/Acetaminophen 10-300 mg] 1 tab PO QID Amiodarone [Cordarone] 200 mg PO DAILY #30 tab Apixaban [Eliquis] 5 mg PO BID 30 Days #60 tab Albuterol Inhaler [Ventolin Hfa Inhaler] 2 puff INHALATION RT-QID PRN PRN Reason: Shortness Of Breath Discharge Medication List Atorvastatin [Lipitor] 80 mg PO HS 03/04/21 [History] Spiriva Respimat 1.25mcg/Actuation Mist 2 puff INHALATION RT-HS #0 09/01/22 [Rx] Hydrocodone/Acetaminophen [Hydrocodone/Acetaminophen 10-300 mg] 1 tab PO QID 06/06/23 [History] Amiodarone [Cordarone] 200 mg PO DAILY #30 tab 09/11/23 [Rx] Apixaban [Eliquis] 5 mg PO BID 30 Days #60 tab 09/11/23 [Rx] Cholecalciferol [Vitamin D3 (25 Mcg = 1000 Iu)] 50 mcg PO DAILY 12/14/23 [History] Omeprazole [PriLOSEC] 40 mg PO DAILY PRN 12/14/23 [History] Albuterol Inhaler [Ventolin Hfa Inhaler] 2 puff INHALATION RT-QID PRN 01/20/24 [History] Metoprolol Tartrate [Lopressor] 12.5 mg PO BID PRN 01/20/24 [History] Budesonide-Formot 160-4.5 Mcg [Symbicort 160-4.5 Mcg Inhaler] 2 puff INHALATION RT-BID #1 each 01/25/24 [Rx] Follow up Appointment(s)/Referral(s): Eduardo Parsons MD [Primary Care Provider] - 1-2 days [facility] [place], [NON-STAFF] - 1 Week - Preliminary Cause of Preliminary Cause of : Hematemesis
--- NOTE | 2024-04-19 18:40 | P.PN ---
Subjective Progress Note Date: 04/19/24 Pt unfortunately had large amount of hemoptysis this morning, and coded. ROSC was obtained and pt subsequently underwent bronchoscopy. Pt remains ventilated. Family at bedside. Pt made DNR Objective - Vital Signs Vital signs: Vital Signs Temp 98.0 F 04/19/24 04:00 Pulse 129 H 04/19/24 09:45 Resp 21 04/19/24 09:00 BP 98/63 04/19/24 07:00 Pulse Ox 74 L 04/19/24 09:45 FiO2 100 04/19/24 09:53 Intake & Output 04/18/24 04/19/24 04/19/24 18:59 06:59 18:59 Intake Total 982.228 0487.339 102.896 Output Total 850 628 Balance 133.950 530.339 102.896 Weight 62.5 kg Intake: IV 276 299 0.9 Normal Saline - 36 39 Pressure Bag 0.9 Normal Saline @ KVO 240 260 Intake, IV Titration 67.950 24.339 102.896 Amount propofoL 1,000 mg In 67.950 24.339 102.896 Empty Bag 1 bag @ 15 MCG/ KG/MIN 5.49 mls/hr IV . [id number] [facility] Rx#:[id number] Tube Feeding 550 715 Other 90 120 Output: Urine 850 628 Other: Voiding Method Indwelling Catheter Indwelling Catheter ABP, PAP, CO, CI - Last Documented Arterial Blood Pressure 147/84 - Constitutional General appearance: Present: no acute distress - Respiratory Details: ventilated - Labs CBC & Chem 7: 04/19/24 04:56 04/19/24 04:56 Labs: Abnormal Lab Results - Last 24 Hours (Table) 04/18/24 04/18/24 04/18/24 Range/Units 11:57 11:59 18:11 WBC (3.8-10.6) k/uL RBC (4.30-5.90) m/uL Hgb (13.0-17.5) gm/dL Hct (39.0-53.0) % MCHC (31.0-37.0) g/dL RDW (11.5-15.5) % ABG pH (7.35-7.45) ABG pCO2 (35-45) mmHg ABG pO2 (83-108) mmHg ABG HCO3 (21-25) mmol/L ABG Total CO2 (19-24) mmol/L Hemoglobin (13.0-17.5) gm/dL Sodium (137-145) mmol/L Chloride (98-107) mmol/L Carbon Dioxide (22-30) mmol/L BUN (9-20) mg/dL Creatinine (0.66-1.25) mg/dL Glucose (74-99) mg/dL POC Glucose (mg/dL) 239 H 219 H 255 H (70-110) mg/dL 04/18/24 04/19/24 04/19/24 Range/Units 23:50 04:56 04:56 WBC 20.5 H (3.8-10.6) k/uL RBC 2.65 L (4.30-5.90) m/uL Hgb 7.7 L (13.0-17.5) gm/dL Hct 26.2 L (39.0-53.0) % MCHC 29.3 L (31.0-37.0) g/dL RDW 21.3 H (11.5-15.5) % ABG pH (7.35-7.45) ABG pCO2 (35-45) mmHg ABG pO2 (83-108) mmHg ABG HCO3 (21-25) mmol/L ABG Total CO2 (19-24) mmol/L Hemoglobin (13.0-17.5) gm/dL Sodium 136 L (137-145) mmol/L Chloride 97 L (98-107) mmol/L Carbon Dioxide 37 H (22-30) mmol/L BUN 39 H (9-20) mg/dL Creatinine 0.48 L (0.66-1.25) mg/dL Glucose 183 H (74-99) mg/dL POC Glucose (mg/dL) 178 H (70-110) mg/dL 04/19/24 04/19/24 Range/Units 05:10 05:41 WBC (3.8-10.6) k/uL RBC (4.30-5.90) m/uL Hgb (13.0-17.5) gm/dL Hct (39.0-53.0) % MCHC (31.0-37.0) g/dL RDW (11.5-15.5) % ABG pH 7.46 H (7.35-7.45) ABG pCO2 51 H (35-45) mmHg ABG pO2 82 L (83-108) mmHg ABG HCO3 36 H (21-25) mmol/L ABG Total CO2 38 H (19-24) mmol/L Hemoglobin 7.5 L (13.0-17.5) gm/dL Sodium (137-145) mmol/L Chloride (98-107) mmol/L Carbon Dioxide (22-30) mmol/L BUN (9-20) mg/dL Creatinine (0.66-1.25) mg/dL Glucose (74-99) mg/dL POC Glucose (mg/dL) 200 H (70-110) mg/dL Microbiology - Last 24 Hours (Table) 04/15/24 12:35 Gram Stain - Final Sputum Sputum Culture - Final Assessment and Plan (1) Acute exacerbation of chronic obstructive pulmonary disease Status: Acute Priority: High Code(s): J44.1 - CHRONIC OBSTRUCTIVE PULMONARY DISEASE W (ACUTE) EXACERBATION SNOMED Code(s): 651421021 (2) Lung cancer Status: Chronic Priority: High Code(s): C34.90 - MALIGNANT NEOPLASM OF UNSP PART OF UNSP BRONCHUS OR LUNG SNOMED Code(s): 310562606 Plan: COPD exacerbation -Abx completed. Continues IV steroids and bronchodilators -CT chest report reviewed, compared to report from Nov 2023. No suspected disease progression or new disease at this time. Plan is for 1 more cycle of treatment after resolution of acute condition then CT with comparison. Pt agreeable with plan. -ECHO showing EF 35-40%. Trace pericardial effusion -S/p bronch with BAL of RUL, with improvement in breathing. Cytology and pleural fluid culture negative. -Has since been intubated for respiratory distress. Pulmonology following Metastatic squamous cell carcinoma -Diagnosis and treatment history as stated in consult. -Patient is most recently been on single agent Gemzar, status post 2 cycles, actually doing fairly well with treatment, mild hematological toxicities -Treatment on hold, pending course of hospitalization Pt unfortunately had large amount of hemoptysis this morning, and coded. ROSC was obtained and pt subsequently underwent bronchoscopy. Pt remains ventilated. Family at bedside. Pt made DNR. Had discussion with patient's daughter and son at bedside. Pt prognosis is very poor. Comfort care measures were discussed, they would like to wait for pt's significant other to be present before make further decision on comfort care. Please do not hesitate to reach out to our service for any further assistance, or questions/concerns
--- NOTE | 2024-05-01 20:01 | CDI ---
Documentation Clarification Form Date: 05/01/24 From: MIRIAM Calixto Admit Date: 04/05/2024 12:14:00 AM Patient Name: Fracisco Rene Visit Number: [id number] Discharge Date: 04/19/2024 05:54:00 PM ATTENTION: The Clinical Documentation Specialists (CDI) and [facility] Coding Staff appreciate your assistance in clarifying documentation. Please respond to the clarification below the line at the bottom and electronically sign. The CDI & [facility] Coding staff will review the response and follow-up if needed. Please note: Queries are made part of the Legal Health Record. If you have any questions, please contact the author of this message via ITS. Doctor/Provider: Truman Kumar "Hypotension with Sepsis and septic shock" is documented on your 04/15 progress note and may lack sufficient clinical evidence/support in the medical record. Additional clarification is requested. History/Risk Factors: Acute hypoxic respiratory failure with COPD exacerbation on this admission. Currently under treatment for metastatic squamous cell carcinoma of the lung. On 04/14, patient had to be transferred to the ICU. Patient was placed on 50 L Airvo with O2 sat in the 85% range, however he was extremely restless and agitated and continuously coughing. He was then intubated and mechanically ventilated. Clinical Indicators: Arterial Blood Pressure 90/48, WBC 19.1 Treatment: Per your progress note Continue ventilatory support Continue propofol/sedation Continue hemodynamic support/norepinephrine, titrate accordingly Continue antibiotics and bronchodilators Please clarify if sepsis with septic shock is a valid diagnosis? [ x ] No, sepsis with septic shock is ruled out [ ] Yes, sepsis with septic shock is present as evidence by (additional clinical support): [ ] Other (please specify diagnosis) [ ] Unable to determine MTDD
== END 2024-04-19 17:54 | disposition expired | DRG 130 ==
LOC: EC 21:10 → 3SCARD 04-05 00:14 → 4SSUR 04-12 21:56 → 2SICU 04-14 09:04
PROVIDERS: ADMIT Internal Medicine; ATTEND Internal Medicine
PROC: 0B9C8ZX Drainage of Right Upper Lung Lobe, Via Natural or Artificial Opening Endoscopic, Diagnostic (ICD-10-PCS; 2024-04-11)
PROC: 3E033XZ Introduction of Vasopressor into Peripheral Vein, Percutaneous Approach (ICD-10-PCS; principal; 2024-04-15)
PROC: 06HM33Z Insertion of Infusion Device into Right Femoral Vein, Percutaneous Approach (ICD-10-PCS; 2024-04-15)
PROC: 03HY32Z Insertion of Monitoring Device into Upper Artery, Percutaneous Approach (ICD-10-PCS; 2024-04-15)
PROC: 4A133B1 Monitoring of Arterial Pressure, Peripheral, Percutaneous Approach (ICD-10-PCS; 2024-04-15)
PROC: 4A133J1 Monitoring of Arterial Pulse, Peripheral, Percutaneous Approach (ICD-10-PCS; 2024-04-15)
PROC: 0BH17EZ Insertion of Endotracheal Airway into Trachea, Via Natural or Artificial Opening (ICD-10-PCS; 2024-04-15)
PROC: 5A1955Z Respiratory Ventilation, Greater than 96 Consecutive Hours (ICD-10-PCS; 2024-04-15)
PROC: 0BC18ZZ Extirpation of Matter from Trachea, Via Natural or Artificial Opening Endoscopic (ICD-10-PCS; 2024-04-19)
DX: J96.21 Acute and chronic respiratory failure with hypoxia (principal); J18.9 Pneumonia, unspecified organism; J44.1 Chronic obstructive pulmonary disease with (acute) exacerbation; J44.0 Chronic obstructive pulmonary disease with (acute) lower respiratory infection; I50.21 Acute systolic (congestive) heart failure; E78.5 Hyperlipidemia, unspecified; F17.210 Nicotine dependence, cigarettes, uncomplicated; D64.81 Anemia due to antineoplastic chemotherapy; C34.02 Malignant neoplasm of left main bronchus; C34.11 Malignant neoplasm of upper lobe, right bronchus or lung; C79.9 Secondary malignant neoplasm of unspecified site; I48.0 Paroxysmal atrial fibrillation; I25.5 Ischemic cardiomyopathy; E87.1 Hypo-osmolality and hyponatremia; E87.8 Other disorders of electrolyte and fluid balance, not elsewhere classified; I11.0 Hypertensive heart disease with heart failure; R64 Cachexia; I25.10 Atherosclerotic heart disease of native coronary artery without angina pectoris; T45.1X5A Adverse effect of antineoplastic and immunosuppressive drugs, initial encounter; I46.9 Cardiac arrest, cause unspecified; Z66 Do not resuscitate; K92.0 Hematemesis; E43 Unspecified severe protein-calorie malnutrition; Z68.1 Body mass index [BMI] 19.9 or less, adult; Z51.5 Encounter for palliative care; Z95.5 Presence of coronary angioplasty implant and graft; I25.2 Old myocardial infarction; Z92.21 Personal history of antineoplastic chemotherapy; Z92.3 Personal history of irradiation; Z79.01 Long term (current) use of anticoagulants; Z79.51 Long term (current) use of inhaled steroids; Z79.899 Other long term (current) drug therapy; Z11.52 Encounter for screening for COVID-19
CPT/HCPCS: 31624; 36415; 36600; 71045; 71046; 71260; 80048; 80053; 82803; 82805; 83036; 83605; 83735; 83880; 84145; 84443; 84484; 85025; 85027; 85610; 85730; 87040; 87070; 87102; 87116; 87205; 87206; 87449; 87636; 88108; 88305; 93005; 93308; 94002; 94003; 94640; 94667; 94668; 94760; 96365; 96366; 96367; 96375; 96376; 99285